=== PATIENT | male | born 1960 | race Caucasian/White ===

== ENCOUNTER → 2021-12-25 | Outpatient (CLI) | payer OTHER ==
--- NOTE | 2021-12-25 18:19 | CONS ---
CONSULTATION DATE OF SERVICE: 12/25/2021 This 61-year-old gentleman has been evaluated in [facility] for obstructive sleep apnea-hypopnea syndrome. HISTORY OF PRESENT ILLNESS/SLEEP-WAKE EVALUATION: The patient was diagnosed with obstructive sleep apnea more than 10 years ago. For the last 2 years he has been using a Dream Station 1 from [employer], which was on recall. The patient continues to use his machine every night. His sleep schedule is from 11 p.m. until between 8 and 11 a.m. No problems with falling asleep. He wakes up from sleep several times while using his machine and has nocturia. Sometimes he snores. In the morning he wakes up tired, falling asleep during the day, worries about his sleep, falling asleep in front of the TV very often. [place] Sleepiness Scale is 3. No history of hypnagogic hallucinations, sleep paralysis or cataplexy. Episodes of irritability and depression during the day. I checked the patient's CPAP unit. Pressure is 15 cm of water. Usage is 30/30 nights for more than 4 hours, average 9.7 hours per night. Mask fitting 90%. The patient is using an Eson 2 medium-sized nasal mask. PAST MEDICAL HISTORY: Positive for hypertension, hyperlipidemia, diabetes mellitus, depression, asthma. PAST SURGICAL HISTORY: Status post neck surgery x2. MEDICATIONS: Metformin, glipizide, albuterol, simvastatin, nortriptyline. SOCIAL HISTORY: Negative for smoking or using alcohol. FAMILY HISTORY: Cancer. REVIEW OF SYSTEMS: Awakenings from sleep and sleepiness while continuing to use his CPAP equipment. No fevers. No double vision. No recent chest pain. No shortness of breath. No abdominal pain. No bleeding episodes. No blood in the urine. No seizure episodes. PHYSICAL EXAMINATION: GENERAL: Pleasant gentleman without distress. VITAL SIGNS: BP 177/97, HR 94, RR 16, height 5 feet 8 inches, weight 271 pounds, body mass index 41.3, temperature 98.3, oxygen saturation at room air 97%. HEENT: PERRLA, EOMI, evaluation of oropharynx showed tongue protrudes midline. Extremely low position of soft palate; Mallampati IV. NECK: Supple, no JVD. Thyroid is not palpable. Wide neck; 19 inches in circumference. LUNGS: Clear to percussion and to auscultation. Good air exchange. No wheezing or rhonchi. HEART: S1, S2 regular. No murmurs, gallops, or rubs. ABDOMEN: Soft and nontender. Bowel sounds are present. No organomegaly appreciated. EXTREMITIES: No clubbing or cyanosis. LOADER DEMOLDER: Awake, alert, and oriented X3. Cranial nerves 2 to 7 intact. There is no fasciculation or atrophy. noted. No focal deficits observed. IMPRESSION: 1. Obstructive sleep apnea-hypopnea syndrome diagnosed in another institution about 10 years ago. The patient continues to use his CPAP equipment but still wakes up from sleep and has sleepiness during the day. He is using a Dream Station 1 [employer] unit, which was on recall. He also has extremely low position of soft palate, Mallampati IV, wide neck, 19 inches in circumference; obstructive sleep apnea- hypopnea syndrome. 2. Obesity; body mass index 41.3. 3. Hypertension. 4. Hyperlipidemia. 5. Asthma. 6. Diabetes mellitus. 7. Depression. 8. Status post neck surgery x2. PLAN: 1. CPAP titration for re-evaluation of effective pressure at the present time and to check for the best type and size of mask. 2. The patient is registered on the website for replacement of his CPAP unit, which is again a Dream Station 1 from [employer], which was on recall. 3. Obtain results of previous sleep studies. 4. Losing weight. 5. No driving if feeling any sleepiness. Thank you very much for referring this patient for consultation. Sincerely, Elton Almanzar MD, PhD, FAASM Diplomat of [place] [employer] Sleep Medicine Board of [place] [employer] Network Systems Administrator of [facility] [place] MMODL / DATN: [id number] /
== END ==
LOC: SLEEP 14:36
PROVIDERS: ATTEND Internal Medicine
DX: G47.33 Obstructive sleep apnea (adult) (pediatric) (principal); E66.9 Obesity, unspecified; I10 Essential (primary) hypertension; E78.5 Hyperlipidemia, unspecified; J45.909 Unspecified asthma, uncomplicated; E11.9 Type 2 diabetes mellitus without complications; F32.A Depression, unspecified; Z98.890 Other specified postprocedural states; Z99.89 Dependence on other enabling machines and devices; Z68.41 Body mass index [BMI] 40.0-44.9, adult
CPT/HCPCS: 99211

== ENCOUNTER → 2022-04-30 | Outpatient (CLI) | payer OTHER ==
--- NOTE | 2022-04-30 17:01 | P.PN ---
Subjective DATE: 04/30/2022 FOLLOW UP VISIT. Patient with obstructive sleep apnea hypopnea syndrome return to sleep center for follow-up visit. Recently patient had sleep study which documented obstructive sleep apnea hypopnea syndrome. I discussed results of sleep studies with patient in details. Patient was initiated on PAP therapy and today is first visit after treatment was started. Patient was able to use PAP equipment every night for the whole night. The patient does not have significant problems with the mask, PAP pressure and humidification. [place] sleepiness scale is 10, patient still sometimes has episodes of sleepiness afternoon. I checked information from PAP unit. PAP unit pressure 8 to 15 average 12.1 cm H2O. Usage is 91 % for more then 4 hours, average 9.2 hours per night. Leak is 21.9 l/m, which is in acceptable range. Apnea Hypopnea Index is 1.5, which is normal. MEDICATIONS:1. Metformin 2. Glipizide 3. Simvastatin 4. Nortriptyline 5. Albuterol During physical exam: GENERAL: A pleasant patient without any distress. VITAL SIGNS: BP 161/94, HR 90, RR 18 , weight 266.6, temperature 97.6, oxygen saturation at room air 94 . HEENT: PERRLA, EOMI.low position of soft palate, Mallapati 4 . NECK: Supple. No JVD. LUNGS: Clear to percussion and to auscultation. Good air exchange. No wheezing or rhonchi. HEART: S1, S2 regular. ABDOMEN: Soft and nontender.[] EXTREMITIES: No clubbing or cyanosis. BEHAVIOR MANAGEMENT SPECIALIST: Awake, alert, and oriented x3. No focal deficit. Impressions: 1. Obstructive sleep apnea-hypopnea syndrome. Patient demonstrated great compliance with treatment, benefiting from treatment. 2. Obesity. 3. Hypertension. 4. Diabetes mellitus. 5. Asthma. 6. Depression. 7. History of hyperlipidemia. 8. Status post neck surgery 2. Plan: 1. Continue using PAP equipment every night for the whole night. 2. To change air filter at least 1-2 times per month. 3. PAP unit should stay lower then position of the head. 4. Advised patient to remove all remaining water from humidifier canister daily and make it dry after each usage. Refill canister with fresh distilled water before each usage. 5. Sleep hygiene with regular time in bed for at least 8 hours. 6. Precautions related to driving. No driving if feel any sleepiness. 7. I will maintain prescription for PAP supplies including mask, tube, filters. 8. Follow up visit in 6 months or earlier if patient has any problems. 9. Watching weight. Thank you very much for allowing me to participate in the management of your patient. Elton Almanzar MD, PhD, FAASM. Diplomat of [place] [employer], Sleep Medicine Board by [place] Public Relations Assistant of [facility] [place]
== END ==
LOC: SLEEP 13:06
PROVIDERS: ATTEND Internal Medicine
DX: G47.33 Obstructive sleep apnea (adult) (pediatric) (principal); E11.9 Type 2 diabetes mellitus without complications; J45.909 Unspecified asthma, uncomplicated; F32.A Depression, unspecified; E78.5 Hyperlipidemia, unspecified; Z98.890 Other specified postprocedural states; E66.9 Obesity, unspecified; I10 Essential (primary) hypertension; Z99.89 Dependence on other enabling machines and devices; Z79.84 Long term (current) use of oral hypoglycemic drugs; Z79.51 Long term (current) use of inhaled steroids

== ENCOUNTER → 2023-03-11 | Outpatient (CLI) | payer OTHER ==
--- NOTE | 2023-03-11 12:28 | P.PN ---
Subjective DATE: 03/11/2023 FOLLOW UP VISIT. Patient with obstructive sleep apnea hypopnea syndrome return to sleep center for follow-up visit. Recently we've had multiple sleep latency test for ablation patient symptoms of excessive daytime sleepiness. I explained results of sleep studies to the patient in details. During CPAP night respiration was on full control. Study showed severe amount of periodic limb movements 99.1 per hour but only with 0.7 micro-arousals per hour. Patient is using PAP equipment every night for the whole night, getting PAP supplies in time. The patient does not have significant problems with the mask, PAP unit and humidification. [place] sleepiness scale is 10, which is borderline. I checked information from PAP unit. PAP unit pressure 8-15, average 11.8 cm H2O. Usage is 97 % for more then 4 hours, average 9.5 hours per night. Leak is 20.2 l/m, which is in acceptable range. Apnea Hypopnea Index is 1.6, which is normal. MEDICATIONS:1. Metformin 2. Glipizide 3. Simvastatin 4. Albuterol 5. Nortriptyline During physical exam: GENERAL: A pleasant patient without any distress. VITAL SIGNS: BP 159/94, HR 91, RR 16, weight 251.8, temperature 97.5, oxygen saturation at room air 97 % . HEENT: PERRLA, EOMI.low position of soft palate, Mallapati 4 . NECK: Supple. No JVD. LUNGS: Clear to percussion and to auscultation. Good air exchange. No wheezing or rhonchi. HEART: S1, S2 regular. ABDOMEN: Soft and nontender. Slightly obese EXTREMITIES: No clubbing or cyanosis. POWER GENERATION TURBINE ROOM OPERATOR: Awake, alert, and oriented x3. No focal deficit. Impressions: 1. Obstructive sleep apnea-hypopnea syndrome. Patient demonstrated great compliance with treatment, benefiting from treatment. 2. Severe periodic limb movements 99 times per hour but practically without any micro-arousals. 3. Hypertension. 4. Depression. 5. Diabetes mellitus. 6. Asthma. 7. Hyperlipidemia. 8. Status post neck surgery 2. Obesity, BMI 38.1. Plan: 1. Continue using PAP equipment every night for the whole night. 2. Patient will be started on treatment with Mirapex 0.125 mg lowest dose 1-2 tablets at bedtime to prevent periodic limb movements. 3. PAP unit should stay lower then position of the head. 4. Advised patient to remove all remaining water from humidifier canister daily and make it dry after each usage. Refill canister with fresh distilled water before each usage. 5. Sleep hygiene with regular time in bed for at least 8 hours. 6. Precautions related to driving. No driving if feel any sleepiness. 7. I will maintain prescription for PAP supplies including mask, tube, filters. 8. Watching and losing weight. 9. Follow up visit in 6 months or earlier if patient has any problems. Thank you very much for allowing me to participate in the management of your patient. Elton Almanzar MD, PhD, FAASM. Diplomat of [place] [employer], Sleep Medicine Board by [employer] Employee Communications Manager of [facility] [place]
== END ==
LOC: SLEEP 10:57
PROVIDERS: ATTEND Internal Medicine
DX: G47.33 Obstructive sleep apnea (adult) (pediatric) (principal); E11.9 Type 2 diabetes mellitus without complications; E66.9 Obesity, unspecified; E78.5 Hyperlipidemia, unspecified; F32.A Depression, unspecified; G47.61 Periodic limb movement disorder; I10 Essential (primary) hypertension; J45.909 Unspecified asthma, uncomplicated; Z68.38 Body mass index [BMI] 38.0-38.9, adult; Z79.84 Long term (current) use of oral hypoglycemic drugs; Z98.890 Other specified postprocedural states; Z99.89 Dependence on other enabling machines and devices
CPT/HCPCS: 99212

== ENCOUNTER → 2023-10-07 | Outpatient (CLI) | payer OTHER ==
--- NOTE | 2023-10-07 16:29 | P.PN ---
Subjective DATE: 10/07/2023 FOLLOW UP VISIT. Patient with obstructive sleep apnea hypopnea syndrome return to sleep center for follow-up visit. Information from previous visit have been reviewed. Patient is using PAP equipment every night for the whole night, getting PAP supplies in time. The patient does not have significant problems with the mask, PAP unit and humidification. [place] sleepiness scale is 6, which is normal. I checked information from PAP unit and discussed it with patient in details. PAP unit pressure 8-15, average 12.5 cm H2O. Usage is 100 % for more then 4 hours, average 9.5 hours per night. Leak is 18.7 l/m, which is in acceptable range. Apnea Hypopnea Index is 2.9, which is normal. MEDICATIONS:1. Aspirin 2. Metformin twice a day 3. Lisinopril once a day 4. Simvastatin once a day 5. Gabapentin During physical exam: GENERAL: A pleasant patient without any distress. VITAL SIGNS: BP 146/84, HR 90, RR 12 , weight 243.6, temperature 98.3, oxygen saturation at room air 98 % . HEENT: PERRLA, EOMI.low position of soft palate, Mallapati 4 . NECK: Supple. No JVD. LUNGS: Clear to percussion and to auscultation. Good air exchange. No wheezing or rhonchi. HEART: S1, S2 regular. ABDOMEN: Soft and nontender.[] EXTREMITIES: No clubbing or cyanosis. SPEED OPERATOR: Awake, alert, and oriented x3. No focal deficit. Impressions: 1. Obstructive sleep apnea-hypopnea syndrome. Patient demonstrated great compliance with treatment, benefiting from treatment. 2. History of periodic limb movements. 3. Hypertension. 4. Diabetes mellitus. 5. Depression. 6. Asthma. 7. Hyperlipidemia. 8. Obesity , BMI 38.0. 9. Status post neck surgery. Plan: 1. Continue using PAP equipment every night for the whole night. 2. To change air filter at least 1-2 times per month. 3. PAP unit should stay lower then position of the head. 4. Advised patient to remove all remaining water from humidifier canister daily and make it dry after each usage. Refill canister with fresh distilled water before each usage. 5. Sleep hygiene with regular time in bed for at least 8 hours. 6. Precautions related to driving. No driving if feel any sleepiness. 7. I will maintain prescription for PAP supplies including mask, tube, filters. 8. Follow up visit in 6 months or earlier if patient has any problems. 9. Watching and losing weight. Thank you very much for allowing me to participate in the management of your patient. Elton Almanzar MD, PhD, FAASM. Diplomat of [place] [employer], Sleep Medicine Board by [place] [employer] Head Buyer Tobacco of [facility] [place]
== END ==
LOC: 3 N SLEEP 15:16
PROVIDERS: ATTEND Internal Medicine
DX: G47.33 Obstructive sleep apnea (adult) (pediatric) (principal); I10 Essential (primary) hypertension; E11.9 Type 2 diabetes mellitus without complications; E66.9 Obesity, unspecified; E78.5 Hyperlipidemia, unspecified; F32.A Depression, unspecified; J45.909 Unspecified asthma, uncomplicated; G47.61 Periodic limb movement disorder; Z68.38 Body mass index [BMI] 38.0-38.9, adult; Z79.84 Long term (current) use of oral hypoglycemic drugs; Z79.899 Other long term (current) drug therapy; Z98.890 Other specified postprocedural states; Z99.89 Dependence on other enabling machines and devices; Z79.82 Long term (current) use of aspirin
CPT/HCPCS: 99212

== ENCOUNTER 2024-02-19 17:22 | Emergency (ER) | payer OTHER, MEDICARE ==
--- NOTE | 2024-02-19 17:42 | ED ---
General Adult HPI - General Chief complaint: Urogenital Stated complaint: Fever/uti Time Seen by Provider: 02/19/24 17:33 Source: patient, family, RN notes reviewed Mode of arrival: ambulatory Limitations: no limitations - History of Present Illness Initial comments: Patient is a pleasant 63-year-old male presents to the emergency department with concern for urinary tract infection. Patient has had symptoms for couple of days. Patient did go to urgent care today and diagnosed with urinary tract infection. Patient was given prescription however spiked a fever and decided to come here prior to starting antibiotics. Patient does feel generally weak and did have a couple near falls. No injury. Patient has had a little bit of urinary incontinence and urinary frequency. No abdominal pain. - Related Data Previous Rx's Medication Instructions Recorded Ciprofloxacin HCl [Cipro] 500 mg PO Q12HR #20 tablet 02/19/24 Allergies Allergy/AdvReac Type Severity Reaction Status Date / Time pollen extracts AdvReac Itching Verified 02/19/24 17:31 Review of Systems ROS Statement: Those systems with pertinent positive or pertinent negative responses have been documented in the HPI. ROS Other: All systems not noted in ROS Statement are negative. Constitutional: Denies: fever Eyes: Denies: eye pain ENT: Denies: ear pain Respiratory: Denies: cough Cardiovascular: Denies: chest pain Endocrine: Denies: fatigue Gastrointestinal: Denies: abdominal pain Genitourinary: Reports: as per HPI Musculoskeletal: Denies: back pain Past Medical History Past Medical History: Diabetes Mellitus, Hypertension Additional Past Medical History / Comment(s): depression Past Surgical History: Appendectomy, Cholecystectomy Additional Past Surgical History / Comment(s): neck surgery Past Psychological History: Depression Smoking Status: Never smoker Past Alcohol Use History: Rare Past Drug Use History: None Reported General Exam Limitations: no limitations General appearance: alert Head exam: Present: atraumatic, normocephalic Eye exam: Present: normal appearance Neck exam: Present: normal inspection Respiratory exam: Present: normal lung sounds bilaterally Cardiovascular Exam: Present: tachycardia GI/Abdominal exam: Present: soft. Absent: distended, tenderness Extremities exam: Present: normal inspection Neurological exam: Present: alert Psychiatric exam: Present: normal affect, normal mood Skin exam: Present: normal color Course Vital Signs 02/19/24 02/19/24 17:23 18:54 Temperature 99.7 F H 98.8 F Pulse Rate 125 H 107 H Respiratory 20 22 Rate Blood Pressure 140/86 127/73 O2 Sat by Pulse 95 93 L Oximetry EKG Findings - EKG Results: EKG: interpreted by ERMD (Left axis. High QRS complex), sinus rhythm, normal ST/T EKG shows: tachycardia Medical Decision Making - Medical Decision Making Was pt. sent in by a medical professional or institution (, PA, SECURITY SALES MANAGER, urgent care, hospital, or senior care...) When possible be specific @ -No Did you speak to anyone other than the patient for history (EMS, parent, family, police, friend...)? What history was obtained from this source @ - is present and helps provide history including diagnosis of urinary tract infection from urgent care Did you review nursing and triage notes (agree or disagree)? Why? @ -I reviewed and agree with nursing and triage notes Were old charts reviewed (outside hosp., previous admission, EMS record, old EKG, old radiological studies, urgent care reports/EKG's, senior care records)? Report findings @ -No old charts were reviewed Differential Diagnosis (chest pain, altered mental status, abdominal pain women, abdominal pain men, vaginal bleeding, weakness, fever, dyspnea, syncope, headache, dizziness, GI bleed, back pain, seizure, CVA, palpatations, mental health, musculoskeletal)? @ -Differential Fever: Pneumonia, viral URI, endocarditis, myocarditis, pericarditis, otitis, sinusitis, peritonsillar Abscess, retropharyngeal Abscess, epiglottitis, peritonitis, appendicitis, [place] cystitis, diverticulitis, hepatitis, colitis, UTI, PID, TOA, pyelonephritis, prostatitis, epididymitis, meningitis, encephalitis, pulmonary embolism, CVA, thyroid storm, pancreatitis, adrenal crisis, cavernous sinus thrombosis, this is not meant to be an all-inclusive list. EKG interpreted by me (3pts min.). @ -As above X-rays interpreted by me (1pt min.). @ -Chest x-ray shows no acute process CT interpreted by me (1pt min.). @ -None done U/S interpreted by me (1pt. min.). @ -None done What testing was considered but not performed or refused? (CT, X-rays, U/S, labs)? Why? @ -None What meds were considered but not given or refused? Why? @ -None Did you discuss the management of the patient with other professionals (professionals i.e. , PA, SECURITY SALES MANAGER, lab, RT, psych nurse, clinical social worker, hand winder, teacher, first aid officer, case packer)? Give summary @ -No Was smoking cessation discussed for >3mins.? @ -No Was critical care preformed (if so, how long)? @ -No Were there social determinants of health that impacted care today? How? (Ho melessness, low income, unemployed, alcoholism, drug addiction, transportation, low edu. Level, literacy, decrease access to med. care, mcc, rehab)? @ -No Was there de-escalation of care discussed even if they declined (Discuss DNR or withdrawal of care, Hospice)? DNR status @ -No What co-morbidities impacted this encounter? (DM, HTN, Smoking, COPD, CAD, Cancer, CVA, ARF, Chemo, Hep., AIDS, mental health diagnosis, sleep apnea, morbid obesity)? @ -None Was patient admitted / discharged? Hospital course, mention meds given and route, prescriptions, significant lab abnormalities, going to OR and other pertinent info. @ -Patient reevaluated and significantly improved. Vital signs are stable. Patient does have evidence of mild urinary tract infection and will need antibiotics. Abdomen remains soft and nontender. Patient states he feels remarkably better and is comfortable with discharge home. Patient denies any abdominal pain. Patient states he has had a cough. Chest x-ray shows no evidence of pneumonia. Viral upper respiratory panel negative Undiagnosed new problem with uncertain prognosis? @ -No Drug Therapy requiring intensive monitoring for toxicity (Heparin, Nitro, I nsulin, Cardizem)? @ -No Were any procedures done? @ -No Diagnosis/symptom? @ -Fever, UTI Acute, or Chronic, or Acute on Chronic? @ -Acute, acute Uncomplicated (without systemic symptoms) or Complicated (systemic symptoms)? @ -Default Side effects of treatment? @ -No Exacerbation, Progression, or Severe Exacerbation? @ -No Poses a threat to life or bodily function? How? (Chest pain, [place], [place], pneumonia, PE, COPD, DKA, ARF, appy, cholecystitis, CVA, Diverticulitis, Homicidal, Suicidal, threat to staff... and all critical care pts) @ -No - Lab Data Result diagrams: 04/13/24 18:03 02/19/24 18:03 Lab Results 02/19/24 02/19/24 02/19/24 Range/Units 18:03 18:03 18:03 WBC 13.2 H (3.8-10.6) k/uL RBC 5.73 (4.30-5.90) m/uL Hgb 16.5 (13.0-17.5) gm/dL Hct 49.8 (39.0-53.0) % MCV 87.0 (80.0-100.0) fL MCH 28.8 (25.0-35.0) pg MCHC 33.1 (31.0-37.0) g/dL RDW 13.5 (11.5-15.5) % Plt Count 194 (150-450) k/uL MPV 8.4 Neutrophils % 81 % Lymphocytes % 10 % Monocytes % 7 % Eosinophils % 1 % Basophils % 1 % Neutrophils # 10.7 H (1.3-7.7) k/uL Lymphocytes # 1.3 (1.0-4.8) k/uL Monocytes # 0.9 (0-1.0) k/uL Eosinophils # 0.1 (0-0.7) k/uL Basophils # 0.1 (0-0.2) k/uL PT 11.9 (10.0-12.5) sec INR 1.1 (<1.2) APTT 27.1 (22.0-30.0) sec Sodium 134 L (137-145) mmol/L Potassium 4.2 (3.5-5.1) mmol/L Chloride 100 (98-107) mmol/L Carbon Dioxide 22 (22-30) mmol/L Anion Gap 12 mmol/L BUN 13 (9-20) mg/dL Creatinine 0.90 (0.66-1.25) mg/dL Est GFR (CKD-EPI)AfAm >90 (>60 ml/min/1.73 sqM) Est GFR (CKD-EPI)NonAf >90 (>60 ml/min/1.73 sqM) Glucose 189 H (74-99) mg/dL Plasma Lactic Acid Jerry (0.7-2.0) mmol/L Calcium 9.7 (8.4-10.2) mg/dL Total Bilirubin 1.1 (0.2-1.3) mg/dL AST 29 (17-59) U/L ALT 24 (4-49) U/L Alkaline Phosphatase 53 (38-126) U/L Total Protein 8.2 (6.3-8.2) g/dL Albumin 4.5 (3.5-5.0) g/dL Urine Color Urine Appearance (Clear) Urine pH (5.0-8.0) Ur Specific [place] (1.001-1.035) Urine Protein (Negative) Urine Glucose (UA) (Negative) Urine Ketones (Negative) Urine Blood (Negative) Urine Nitrite (Negative) Urine Bilirubin (Negative) Urine Urobilinogen (<2.0) mg/dL Ur Leukocyte Esterase (Negative) Urine RBC (0-5) /hpf Urine WBC (0-5) /hpf Hyaline Casts (0-2) /lpf Urine Mucus (None) /hpf Influenza Type A (PCR) (Not Detectd) Influenza Type B (PCR) (Not Detectd) RSV (PCR) (Not Detectd) SARS-CoV-2 (PCR) (Not Detectd) 02/19/24 02/19/24 02/19/24 Range/Units 18:03 18:03 18:03 WBC (3.8-10.6) k/uL RBC (4.30-5.90) m/uL Hgb (13.0-17.5) gm/dL Hct (39.0-53.0) % MCV (80.0-100.0) fL MCH (25.0-35.0) pg MCHC (31.0-37.0) g/dL RDW (11.5-15.5) % Plt Count (150-450) k/uL MPV Neutrophils % % Lymphocytes % % Monocytes % % Eosinophils % % Basophils % % Neutrophils # (1.3-7.7) k/uL Lymphocytes # (1.0-4.8) k/uL Monocytes # (0-1.0) k/uL Eosinophils # (0-0.7) k/uL Basophils # (0-0.2) k/uL PT (10.0-12.5) sec INR (<1.2) APTT (22.0-30.0) sec Sodium (137-145) mmol/L Potassium (3.5-5.1) mmol/L Chloride (98-107) mmol/L Carbon Dioxide (22-30) mmol/L Anion Gap mmol/L BUN (9-20) mg/dL Creatinine (0.66-1.25) mg/dL Est GFR (CKD-EPI)AfAm (>60 ml/min/1.73 sqM) Est GFR (CKD-EPI)NonAf (>60 ml/min/1.73 sqM) Glucose (74-99) mg/dL Plasma Lactic Acid Jerry 1.6 (0.7-2.0) mmol/L Calcium (8.4-10.2) mg/dL Total Bilirubin (0.2-1.3) mg/dL AST (17-59) U/L ALT (4-49) U/L Alkaline Phosphatase (38-126) U/L Total Protein (6.3-8.2) g/dL Albumin (3.5-5.0) g/dL Urine Color Yellow Urine Appearance Clear (Clear) Urine pH 5.5 (5.0-8.0) Ur Specific [place] 1.028 (1.001-1.035) Urine Protein 2+ H (Negative) Urine Glucose (UA) 3+ H (Negative) Urine Ketones 1+ H (Negative) Urine Blood Moderate H (Negative) Urine Nitrite Negative (Negative) Urine Bilirubin Negative (Negative) Urine Urobilinogen <2.0 (<2.0) mg/dL Ur Leukocyte Esterase Negative (Negative) Urine RBC 1 (0-5) /hpf Urine WBC 8 H (0-5) /hpf Hyaline Casts 7 H (0-2) /lpf Urine Mucus Moderate H (None) /hpf Influenza Type A (PCR) Not Detected (Not Detectd) Influenza Type B (PCR) Not Detected (Not Detectd) RSV (PCR) Not Detected (Not Detectd) SARS-CoV-2 (PCR) Not Detected (Not Detectd) Disposition Clinical Impression: Fever, Urinary tract infection Disposition: HOME SELF-CARE Condition: Stable Instructions (If sedation given, give patient instructions): Urinary Tract Infection in Men (ED) Additional Instructions: Please do follow-up with primary care physician on Wednesday. Return for fevers, abdominal pain, vomiting, difficulty breathing, worsening or changing symptoms or any other concerns. Prescription for antibiotic has been sent to pharmacy Prescriptions: Ciprofloxacin HCl [Cipro] 500 mg PO Q12HR #20 tablet Is patient prescribed a controlled substance at d/c from ED?: No Referrals: [facility],Clinic [Primary Care Provider] - 1-2 days Time of Disposition: 20:00
[2024-02-19] MEDS: ACETAMINOPHEN TAB 500 MG TAB PO STA (18:07)
[2024-02-19] MEDS: IBUPROFEN 600 MG TAB PO STA (18:10)
[2024-02-19] MEDS: SODIUM CHLORIDE 0.9% 1,000 ML IV SCH (18:11)
[2024-02-19 18:25] LABS: Basophils # (A) 0.1 k/uL (0-0.2); Basophils % (A) 1 %; Eosinophils # (A) 0.1 k/uL (0-0.7); Eosinophils % (A) 1 %; HCT 49.8 % (39.0-53.0); HGB 16.5 gm/dL (13.0-17.5); Lymphocytes # (A) 1.3 k/uL (1.0-4.8); Lymphocytes % (A) 10 %; MCH 28.8 pg (25.0-35.0); MCHC 33.1 g/dL (31.0-37.0); Mean Platelet Volume 8.4; Monocytes # (A) 0.9 k/uL (0-1.0); Monocytes % (A) 7 %; Neutrophils # (A) 10.7 k/uL (1.3-7.7); Neutrophils % (A) 81 %; Platelet Count 194 k/uL (150-450); RBC 5.73 m/uL (4.30-5.90); RDW 13.5 % (11.5-15.5); WBC 13.2 k/uL (3.8-10.6)
[2024-02-19 18:31] LABS: Appearance,Urine Clear (Clear); Bilirubin,Urine Negative (Negative); Blood,Urine Moderate (Negative); Color,Urine Yellow; Glucose,Urine (UA) 3+ (Negative); Hyaline Casts,Urine 7 /lpf (0-2); Ketones,Urine 1+ (Negative); Leukocyte Esterase,Urine Negative (Negative); Mucus,Urine Moderate /hpf; Nitrite,Urine Negative (Negative); PH, Urine 5.5 (5.0-8.0); Protein,Urine 2+ (Negative); RBC,Urine 1 /hpf (0-5); Specific Gravity,Urine 1.028 (1.001-1.035); Urobilinogen,Urine <2.0 mg/dL (<2.0); WBC,Urine 8 /hpf (0-5)
--- NOTE | 2024-02-19 18:31 | XR ---
EXAMINATION TYPE: XR chest 2V DATE OF EXAM: 02/19/2024 6:23 PM CLINICAL INDICATION:Male, 63 years old with history of Fever; COMPARISON: None TECHNIQUE: XR chest 2V Frontal and lateral views of the chest. FINDINGS: Lungs/Pleura: There is no evidence of pleural effusion, focal consolidation, or pneumothorax. Pulmonary vascularity: Unremarkable. Heart/mediastinum: Cardiomediastinal silhouette is unremarkable. Musculoskeletal: No acute osseous pathology. Other findings: None IMPRESSION: Low lung volumes with a generalized hazy appearance which could represent atelectasis versus pulmonar y edema correlate with serum BNP.
[2024-02-19 18:37] LABS: ALT 24 U/L (4-49); AST 29 U/L (17-59); African American GFR (CKD) >90 (>60 ml/min/1.73 sqM); Albumin 4.5 g/dL (3.5-5.0); Alkaline Phosphatase 53 U/L (38-126); Anion Gap 12 mmol/L; Blood Urea Nitrogen 13 mg/dL (9-20); Calcium 9.7 mg/dL (8.4-10.2); Carbon Dioxide 22 mmol/L (22-30); Chloride 100 mmol/L (98-107); Glucose 189 mg/dL (74-99); Non-African American GFR(CKD) >90 (>60 ml/min/1.73 sqM); Potassium 4.2 mmol/L (3.5-5.1); Sodium 134 mmol/L (137-145); Total Bilirubin 1.1 mg/dL (0.2-1.3); Total Protein 8.2 g/dL (6.3-8.2)
[2024-02-19 18:39] LABS: INR 1.1 (<1.2); Partial Thromboplastin Time 27.1 sec (22.0-30.0); Prothrombin Time 11.9 sec (10.0-12.5)
[2024-02-19] MEDS: cefTRIAXone IN SWFI 1,000 MG/10 ML SYRINGE IVP STA (20:16)
[2024-02-19 20:43] VITALS: BP 122/80; PULSE 97; RESP 18; TEMP 97.9
== END 2024-02-19 20:28 | disposition home or self-care (01) ==
LOC: EC 17:22
DX: N39.0 Urinary tract infection, site not specified (principal); Z88.8 Allergy status to other drugs, medicaments and biological substances
CPT/HCPCS: 36415; 93005; 80053; 83605; 85025; 85610; 85730; 81001; 87040; 87636; 71046; 99284; 96374; 96361 ×2; J0696

== ENCOUNTER → 2024-06-29 | Outpatient (CLI) | payer OTHER | LOC: 3 N SLEEP 14:50 | PROVIDERS: ATTEND Internal Medicine | CPT/HCPCS: 99212 ==

== ENCOUNTER → 2025-02-16 | Day surgery (SDC) | payer OTHER ==
[~2025-02-16] MED LIST: PROPOFOL 10 MG/ML 20 ML VIAL IV ONE
[2025-02-16] MEDS: IV FLUID CONTINUATION 1,000 ML IV ONE (12:23)
[2025-02-16 12:32] VITALS: RESP 16; TEMP 97.3
[2025-02-16] MEDS: LACTATED RINGERS 1,000 ML IV SCH (12:39)
[2025-02-16 12:47] LABS: Glucose,Whole Blood 118 mg/dL (70-110)
--- NOTE | 2025-02-16 13:27 | P.PCN ---
Date of Procedure: 02/16/25 Procedure(s) Performed: BRIEF HISTORY: Patient is a 64-year-old pleasant white male scheduled for an elective colonoscopy as a part of screening for colon cancer. PROCEDURE PERFORMED: Colonoscopy. PREOPERATIVE DIAGNOSIS: Screening for colon cancer. IV sedation per Anesthesia. PROCEDURE: After informed consent was obtained, the patient, was brought into the endoscopy unit. IV sedation was administered by Anesthesia under continuous monitoring. Digital rectal examination was normal. Initially the Olympus CF-160 flexible video colonoscope was then inserted in the rectum, gradually advanced into the cecum without any difficulty. Careful examination was performed as the scope was gradually being withdrawn. Ileocecal valve and the appendiceal orifice were visualized and appeared normal. Prep was excellent. Mucosa of the cecum, ascending colon, transverse colon, descending colon, sigmoid colon, and rectum appeared normal. Scattered sigmoid diverticulosis. Retroflexion was performed in the rectum and no lesions were seen. The patient tolerated the procedure well. IMPRESSION: Normal-appearing colon from rectum to cecum with no evidence of colorectal neoplasia Scattered sigmoid diverticulosis. RECOMMENDATIONS: Findings of this examination were discussed with the patient as well as his family.. He was advised to have repeat screening colonoscopy in 10 years
[2025-02-16 13:37] LABS: Glucose,Whole Blood 97 mg/dL (70-110)
[2025-02-16 13:46] VITALS: BP 128/79; PULSE 79
== END ==
LOC: ORWHC2ENDO 11:58
PROVIDERS: ATTEND Internal Medicine Gastroenterology
DX: Z12.11 Encounter for screening for malignant neoplasm of colon (principal); K57.30 Diverticulosis of large intestine without perforation or abscess without bleeding
CPT/HCPCS: J2704; G0121

== ENCOUNTER → 2025-02-26 | Outpatient (CLI) | payer OTHER ==
[2025-02-26 16:24] LABS: T4, Free (Free Thyroxine) 1.14 ng/dL (0.80-1.80)
== END | disposition home or self-care (01) ==
LOC: LABWHC1 11:01
PROVIDERS: ATTEND Psychiatry & Neurology Neurology
DX: R41.3 Other amnesia (principal)
CPT/HCPCS: 36415; 82607; 84439; 84443; 84481

== ENCOUNTER 2025-03-18 13:18 | Inpatient (IN) | payer OTHER, MEDICARE ==
--- NOTE | 2025-03-18 13:33 | ED ---
General Adult HPI - General Chief complaint: Back Pain/Injury Stated complaint: Leg Numbness Time Seen by Provider: 03/18/25 13:21 Source: patient, RN notes reviewed Mode of arrival: EMS Limitations: no limitations - History of Present Illness Initial comments: Patient is a 64-year-old male present to the emergency department with concerns with numbness. Patient states he was walking when he suddenly felt numb. Patient states this was his lower back then abdomen then legs. Patient states his legs gave out. Patient states he just feels weak. Originally patient states weak all over however later confirms just that his legs feel weak and not his arms. Patient denies any history of back problems. Patient does have history of chronic neck problems. No back pain. Patient has mild numbness/discomfort/tightness of his abdomen which is new. - Related Data Home Medications Medication Instructions Recorded Confirmed Albuterol Inhaler [Ventolin Hfa 1 - 2 puff INHALATION DIRECTED 02/15/25 02/16/25 Inhaler] PRN Aspirin EC [Ecotrin Low Dose] 81 mg PO DAILY 02/15/25 02/16/25 Celecoxib 200 mg PO BID 02/15/25 02/16/25 Cetirizine HCl [Zyrtec] 10 mg PO DAILY 02/15/25 02/16/25 Cholecalciferol (Vitamin D3) 50 mcg PO DAILY 02/15/25 02/16/25 [Vitamin D3 (50 Mcg = 2000 Iu)] Cyclobenzaprine [Flexeril] 10 mg PO BID 02/15/25 02/16/25 Dulaglutide [Trulicity] 4.5 mg SQ SA 02/15/25 02/16/25 Famotidine 20 mg PO DAILY 02/15/25 02/16/25 Fluticasone Nasal [place] [Flonase 1 spray EA NOSTRIL DAILY 02/15/25 02/16/25 Nasal [place]] Gabapentin 600 mg PO BID 02/15/25 02/16/25 Ipratropium [place] 0.06%Nasal 1 spray NASAL BID 02/15/25 02/16/25 [Atrovent Nasal 0.06%] Nortriptyline [Pamelor] 100 mg PO HS 02/15/25 02/16/25 Pramipexole [Mirapex] 0.25 mg PO DAILY 02/15/25 02/16/25 Simvastatin [Zocor] 80 mg PO DAILY 02/15/25 02/16/25 Unk Testosterone 20 mg PO Q14D 02/15/25 02/16/25 Vibegron [Gemtesa] 75 mg PO DAILY 02/15/25 02/16/25 lisinopriL 40 mg PO DAILY 02/15/25 02/16/25 metFORMIN HCL [Metformin HCl] 500 mg PO BID 02/15/25 02/16/25 Allergies Allergy/AdvReac Type Severity Reaction Status Date / Time bee venom protein (honey bee) Allergy Anaphylaxis Verified 03/18/25 13:29 pollen extracts AdvReac Itching Verified 03/18/25 13:29 Review of Systems ROS Statement: Those systems with pertinent positive or pertinent negative responses have been documented in the HPI. ROS Other: All systems not noted in ROS Statement are negative. Constitutional: Denies: fever Eyes: Denies: eye pain ENT: Denies: ear pain Respiratory: Denies: cough, dyspnea Cardiovascular: Denies: chest pain Gastrointestinal: Reports: as per HPI, other (No incontinence or retention of bowel or bladder product). Denies: nausea, vomiting, diarrhea Genitourinary: Denies: dysuria Musculoskeletal: Reports: as per HPI. Denies: back pain Neurological: Reports: as per HPI, numbness Past Medical History Past Medical History: Diabetes Mellitus, Hypertension Additional Past Medical History / Comment(s): depression History of Any Multi-Drug Resistant Organisms: None Reported Past Surgical History: Appendectomy, Cholecystectomy Additional Past Surgical History / Comment(s): neck surgery, left elbow, Past Psychological History: Depression Smoking Status: Never smoker Past Alcohol Use History: None Reported Past Drug Use History: None Reported General Exam Limitations: no limitations General appearance: alert, in no apparent distress Head exam: Present: normocephalic Eye exam: Present: normal appearance Neck exam: Present: normal inspection Respiratory exam: Present: normal lung sounds bilaterally Cardiovascular Exam: Present: regular rate, normal rhythm, normal heart sounds Expanded Peripheral pulses: 2+: Dorsalis Pedis (R), Dorsalis Pedis (L) GI/Abdominal exam: Present: soft. Absent: distended, tenderness, guarding, rebound, rigid, pulsatile mass Extremities exam: Present: normal inspection Back exam: Present: normal inspection. Absent: tenderness, vertebral tenderness Neurological exam: Present: alert, oriented X3, CN II-XII intact. Absent: motor sensory deficit Expanded Neurological exam: Present: protecting the airway Speech: Present: fluid speech Sensory exam: Upper Extremity Light Touch: Normal, Lower Extremity Light Touch: Normal Motor strength exam: RUE: 5, LUE: 5, RLE: 5, LLE: 5 Eye Response: (4) open spontaneously Motor Response: (6) obeys commands Verbal Response: (5) oriented Psychiatric exam: Present: normal affect, normal mood Skin exam: Present: normal color Course Vital Signs 03/18/25 03/18/25 13:22 14:50 Temperature 98.8 F Pulse Rate 88 88 Respiratory 18 18 Rate Blood Pressure 165/97 162/82 O2 Sat by Pulse 97 97 Oximetry Medical Decision Making - Medical Decision Making Was pt. sent in by a medical professional or institution (, PA, PROJECT CONTROLS SPECIALIST, urgent care, hospital, or fpc...) When possible be specific @ -No Did you speak to anyone other than the patient for history (EMS, parent, family, police, friend...)? What history was obtained from this source @ -No Did you review nursing and triage notes (agree or disagree)? Why? @ -I reviewed and agree with nursing and triage notes Were old charts reviewed (outside hosp., previous admission, EMS record, old EKG, old radiological studies, urgent care reports/EKG's, fpc records)? Report findings @ -No old charts were reviewed Differential Diagnosis (chest pain, altered mental status, abdominal pain women, abdominal pain men, vaginal bleeding, weakness, fever, dyspnea, syncope, headache, dizziness, GI bleed, back pain, seizure, CVA, palpatations, mental health, musculoskeletal)? @ -Differential Weakness: Hypoglycemia, shock, sepsis, hyponatremia, anemia, infection, NM, ETOH, adverse medicine reaction, overdose, stroke, this is not meant to be an all-inclusive list. EKG interpreted by me (3pts min.). @ -As above X-rays interpreted by me (1pt min.). @ -None done CT interpreted by me (1pt min.). @ -CT spine with no spinal stenosis. Foraminal stenosis. CT abdomen pelvis without acute abnormality. Pulmonary nodule. U/S interpreted by me (1pt. min.). @ -None done What testing was considered but not performed or refused? (CT, X-rays, U/S, labs)? Why? @ -None What meds were considered but not given or refused? Why? @ -None Did you discuss the management of the patient with other professionals (professionals i.e. , PA, PROJECT CONTROLS SPECIALIST, lab, RT, psych nurse, 7th grade social studies teacher, gunstock spray unit feeder, teacher, retail loan officer, [employer]er shoe parts)? Give summary @ -Case was discussed with orthopedic Dr. Caro who will consult and is agreeable with IV steroids. He does feel comfortable with CT scan results. Case also discussed with practitioner [facility] who will admit covering Dr. Nogueira me. Was smoking cessation discussed for >3mins.? @ -No Was critical care preformed (if so, how long)? @ -No Were there social determinants of health that impacted care today? How? (Homelessness, low income, unemployed, alcoholism, drug addiction, transportation, low edu. Level, literacy, decrease access to med. care, halfway, rehab)? @ -No Was there de-escalation of care discussed even if they declined (Discuss DNR or withdrawal of care, Hospice)? DNR status @ -No What co-morbidities impacted this encounter? (DM, HTN, Smoking, COPD, CAD, Cancer, CVA, ARF, Chemo, Hep., AIDS, mental health diagnosis, sleep apnea, morbid obesity)? @ -History of cervical spine problems Was patient admitted / discharged? Hospital course, mention meds given and route, prescriptions, significant lab abnormalities, going to OR and other pertinent info. @ -Patient presents with odd symptoms. Concerns for transient leg weakness and now potential urinary retention. Patient reevaluated and updated. Admission orders written. Patient will be admitted with orthopedic spine consult. Steroids will be started. Undiagnosed new problem with uncertain prognosis? @ -No Drug Therapy requiring intensive monitoring for toxicity (Heparin, Nitro, Insulin, Cardizem)? @ -No Were any procedures done? @ -No Diagnosis/symptom? @ -Leg weakness Acute, or Chronic, or Acute on Chronic? @ -Acute Uncomplicated (without systemic symptoms) or Complicated (systemic symptoms)? @ -Default Side effects of treatment? @ -No Exacerbation, Progression, or Severe Exacerbation? @ -No Poses a threat to life or bodily function? How? (Chest pain, USA, NM, pneumonia, PE, COPD, DKA, ARF, appy, cholecystitis, CVA, Diverticulitis, Homicidal, Suicidal, threat to staff... and all critical care pts) @ -No - Lab Data Result diagrams: 03/18/25 13:43 03/18/25 13:43 Lab Results 03/18/25 03/18/25 Range/Units 13:43 13:43 WBC 6.28 (4.50-10.00) 10*3/uL RBC 4.89 (4.40-5.60) 10*6/uL Hgb 14.7 (13.0-17.0) g/dL Hct 42.2 (39.6-50.0) % MCV 86.3 (80.0-97.0) fL MCH 30.1 (27.0-32.0) pg MCHC 34.8 (32.0-37.0) g/dL Plt Count 170 (140-440) 10*3/uL MPV 10.3 (9.5-12.2) fL Immature Gran % (Auto) 0.6 % Neutrophils % 61.2 % Lymphocytes % 23.2 % Monocytes % 9.6 % Eosinophils % 4.6 % Basophils % 0.8 % Immature Gran # 0.04 (0.00-0.04) 10*3/uL Neutrophils # 3.84 (1.80-7.70) 10*3/uL Lymphocytes # 1.46 (0.90-5.00) 10*3/uL Monocytes # 0.60 (0.20-1.00) 10*3/uL Eosinophils # 0.29 (0.04-0.35) 10*3/uL Basophils # 0.05 (0.00-0.10) 10*3/uL Sodium 141 (137-145) mmol/L Potassium 4.4 (3.5-5.1) mmol/L Chloride 106 (98-107) mmol/L Carbon Dioxide 28 (22-30) mmol/L Anion Gap 7 mmol/L BUN 14 (9-20) mg/dL Creatinine 0.86 (0.66-1.25) mg/dL Est GFR (CKD-EPI)AfAm >90 (>60 ml/min/1.73 sqM) Est GFR (CKD-EPI)NonAf >90 (>60 ml/min/1.73 sqM) Glucose 146 H (74-99) mg/dL Calcium 9.8 (8.4-10.2) mg/dL Total Bilirubin 0.8 (0.2-1.3) mg/dL AST 20 (17-59) U/L ALT 18 (4-49) U/L Alkaline Phosphatase 51 (38-126) U/L Total Protein 7.1 (6.3-8.2) g/dL Albumin 4.2 (3.5-5.0) g/dL Disposition Clinical Impression: Leg weakness Disposition: ADMITTED IP TO THIS HOSP Is patient prescribed a controlled substance at d/c from ED?: No Referrals: Damon Jacobs DO [Primary Care Provider] - 1-2 days Time of Disposition: 15:32
[2025-03-18 13:55] LABS: Basophils # (A) 0.05 10*3/uL (0.00-0.10); Basophils % (A) 0.8 %; Eosinophils # (A) 0.29 10*3/uL (0.04-0.35); Eosinophils % (A) 4.6 %; HCT 42.2 % (39.6-50.0); HGB 14.7 g/dL (13.0-17.0); Lymphocytes # (A) 1.46 10*3/uL (0.90-5.00); Lymphocytes % (A) 23.2 %; MCH 30.1 pg (27.0-32.0); MCHC 34.8 g/dL (32.0-37.0); MCV 86.3 fL (80.0-97.0); Monocytes # (A) 0.60 10*3/uL (0.20-1.00); Monocytes % (A) 9.6 %; Neutrophils # (A) 3.84 10*3/uL (1.80-7.70); Neutrophils % (A) 61.2 %; Platelet Count 170 10*3/uL (140-440); RBC 4.89 10*6/uL (4.40-5.60); RDW 13.2 % (11.5-14.5); WBC 6.28 10*3/uL (4.50-10.00)
[2025-03-18] MEDS: SODIUM CHLORIDE 0.9% 500 ML DEHP FREE BAG IV STA (14:04)
[2025-03-18 14:14] LABS: ALT 18 U/L (4-49); AST 20 U/L (17-59); African American GFR (CKD) >90 (>60 ml/min/1.73 sqM); Albumin 4.2 g/dL (3.5-5.0); Alkaline Phosphatase 51 U/L (38-126); Anion Gap 7 mmol/L; Blood Urea Nitrogen 14 mg/dL (9-20); Calcium 9.8 mg/dL (8.4-10.2); Carbon Dioxide 28 mmol/L (22-30); Chloride 106 mmol/L (98-107); Glucose 146 mg/dL (74-99); Non-African American GFR(CKD) >90 (>60 ml/min/1.73 sqM); Potassium 4.4 mmol/L (3.5-5.1); Sodium 141 mmol/L (137-145); Total Protein 7.1 g/dL (6.3-8.2)
--- NOTE | 2025-03-18 15:15 | CT ---
EXAMINATION TYPE: CT abdomen pelvis w con, CT lumbar spine w con DATE OF EXAM: 03/18/2025 2:40 PM COMPARISON: Plain film CLINICAL INDICATION: Male, 64 years old with history of pain; abdominal pain and distention (accessio n [id number]), back pain, leg numbness (accession [id number]) TECHNIQUE: Axial CT abdomen pelvis w con, CT lumbar spine w con;Sagittal and coronal reformats were created on a separate workstation. Axial CT imaging of the lumbar spine Contrast used:100 mL of Isovue 300 with IV Contrast, (none if empty) Oral contrast used: without Oral Contrast (none if empty) CT DLP: combined DLP 3273.6 mGycm, Automated exposure control for dose reduction was used. FINDINGS: LOWER CHEST: 8 mm right middle lobe pulmonary nodule in the diaphragm series 201 image 16 Elevated left diaphragm with atelectasis. ABDOMEN LIVER: Unremarkable GALLBLADDER AND BILE DUCTS: The gallbladder is surgically absent. PANCREAS: Unremarkable. SPLEEN: Small splenule is present. ADRENAL GLANDS: Bilateral fatty nodules in the adrenal gland measuring up to 6 cm on the right and 12 mm on the left compatible with myelolipoma's. KIDNEYS AND URETERS: No evidence of hydronephrosis or obstructing renal calculus. The ureters are unr emarkable. Urinary bladder wall thickening with surrounding Fat stranding. PELVIS BLADDER: No evidence for wall thickening or mass given limitations of exam. REPRODUCTIVE: Prostate is enlarged in size measuring 5.3 cm in transverse dimension. ABDOMEN & PELVIS STOMACH AND BOWEL: No evidence of bowel obstruction. Scattered colonic diverticula present. Appendix is not visualized. PERITONEUM/RETROPERITONEUM: No evidence of pneumoperitoneum or free fluid. VASCULATURE: Mild atherosclerotic calcifications are present throughout the abdominal aorta and its b ranches. No evidence of aortic aneurysm. MUSCULOSKELETAL: Spinal alignment is within normal limits. No evidence for spinal fracture. Multilevel degeneration ch anges with osteophyte information and joint space narrowing facet joint arthropathy. Disc space narro wing also present at multiple levels. No evidence for significant spinal canal stenosis. There is sev ere right L5-S1 moderate bilateral L4-L5 neural foraminal stenosis. LYMPH NODES: No gross evidence for lymphadenopathy. SOFT TISSUE/ABDOMINAL WALL: Fatty changes to the inguinal canals. IMPRESSION: 1. No evidence for acute abdominal process. 2. Right middle lobe pulmonary nodule. 6-12 month follow-up recommended by Fleischner Society pulmon [place] nodule recommendations. 3. Prostatomegaly, correlate with serum PSA. 4. Colonic diverticulosis. 5. Bilateral adrenal myelolipoma's. Spine: * No evidence for spinal fracture. * No evidence for significant spinal canal stenosis. * Severe right L5-S1 neural foraminal stenosis. * Moderate bilateral L4-L5 neural foraminal stenosis. [facility], , 03/18/2025 3:12 PM
[2025-03-18] MEDS ORDERED: NALOXONE 0.4 MG/ML 1 ML VIAL IV PRN (15:34)
[2025-03-18] MEDS ORDERED: DEXTROSE 50% SYRINGE 50 ML IVP PRN (15:45)
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
[2025-03-18] MEDS: methylPREDNISolone SOD SUCCI 125 MG/2 ML VIAL IV STA (16:30)
[2025-03-18] MEDS: TAMSULOSIN 0.4 MG CAP.ER.24H PO SCH (16:33)
[2025-03-18] MEDS: methylPREDNISolone SOD SUCCI 125 MG/2 ML VIAL IV SCH (17:11)
[2025-03-18] MEDS: INSULIN LISPRO (HumaLOG) 100 UNIT/ML 10 mL VL SQ SCH (17:12)
[2025-03-18 17:14] LABS: Glucose,Whole Blood 100 mg/dL (70-110)
[2025-03-18 20:09] LABS: Glucose,Whole Blood 161 mg/dL (70-110)
[2025-03-18] MEDS: ATORVASTATIN 40 MG TAB PO SCH (20:09)
[2025-03-18] MEDS: IPRATROPIUM BROMIDE 0.06% NASAL SPRAY (15 ML) NASAL SCH (20:21)
[2025-03-18] MEDS: NORTRIPTYLINE 25 MG CAP PO SCH (20:32)
[2025-03-18] MEDS: PRAMIPEXOLE 0.125 MG TAB PO SCH (20:33)
[2025-03-18 23:18] LABS: Glucose,Whole Blood 217 mg/dL (70-110)
[2025-03-19 06:07] LABS: Glucose,Whole Blood 195 mg/dL (70-110)
[2025-03-19] MEDS: PANTOPRAZOLE 40 MG TABLET PO SCH (06:13)
[2025-03-19 06:53] LABS: Bilirubin,Urine Negative (Negative); Blood,Urine Negative (Negative); Color,Urine Colorless; Glucose,Urine (UA) 4+ (Negative); Ketones,Urine 1+ (Negative); Leukocyte Esterase,Urine Negative (Negative); Nitrite,Urine Negative (Negative); PH, Urine 5.5 (5.0-8.0); Protein,Urine Negative (Negative); Specific Gravity,Urine 1.032 (1.001-1.035); Urobilinogen,Urine <2.0 mg/dL (<2.0)
[2025-03-19] MEDS: ASPIRIN 81 MG PO SCH (09:22)
[2025-03-19] MEDS: FAMOTIDINE 20 MG TAB PO SCH (09:22)
[2025-03-19] MEDS: CYANOCOBALAMIN 500 MCG TAB PO SCH (09:22)
[2025-03-19] MEDS: LORATADINE 10 MG TAB PO SCH (09:22)
[2025-03-19] MEDS: CHOLECALCIFEROL 25 MCG (1000 IU) TABLET PO SCH (09:22)
[2025-03-19] MEDS: NON FORMULARY DRUG (Vibegron [Gemtesa] 75 MG Tablet) PO SCH (09:27)
--- NOTE | 2025-03-19 10:57 | MR ---
EXAMINATION TYPE: MR lumbar spine wo con DATE OF EXAM: 03/19/2025 10:22 AM COMPARISON: 03/18/2025.. CLINICAL INDICATION: Male, 64 years old with history of leg weakness; PHH, Back pain, bilateral leg w eakness/numbness. TECHNIQUE: Multi planar, multi sequence imaging was performed utilizing: T1-weighted, T2-weighted, a nd turbo inversion recovery imaging of the lumbar spine. IV Contrast: mL (None, if empty) FINDINGS: Alignment: The lumbar vertebral bodies have preserved heights and alignment. Cord: The conus medullaris and the distal spinal cord appear unremarkable with regards to their signa l intensity and morphology. Bones/Discs: Minimal degeneration changes throughout the spine with osteophyte formation and facet [place] int arthropathy. Intervertebral disc signal is maintained. No abnormal inversion recovery signal to s uggest bony edema. T12-L1: No evidence of significant spinal canal stenosis or neural foraminal stenosis. L1-L2: No evidence of significant spinal canal stenosis or neural foraminal stenosis. L2-L3: No evidence of significant spinal canal stenosis or neural foraminal stenosis. L3-L4: No evidence of significant spinal canal stenosis. Facet joint arthropathy mild bilateral neura l foraminal stenosis. L4-L5: No evidence of significant spinal canal stenosis. Facet joint arthropathy mild bilateral neura l foraminal stenosis. L5-S1: The disc has a rounded posterior morphology without significant spinal canal stenosis. Facet j oint arthropathy with mild bilateral neural foraminal stenosis. No significant spinal canal or neural foraminal stenosis in the remainder of the visualized levels. Other findings: None. IMPRESSION: No definitive evidence of disc herniation or significant spinal canal stenosis. Minimal disc degeneration with associated osteoarthritic changes. [facility], , 03/19/2025 10:55 AM
--- NOTE | 2025-03-19 11:56 | P.CNOR ---
History of Present Illness - [facility] Consult date: 03/19/25 Consult reason: other History of present illness: Patient seen and examined at bedside he is a pleasant 64-year-old male who has sudden complaints of bilateral lower extremity weakness. He feels like his weakness started just yesterday. When he tries to stand up he is unable to stand up at all. He says his legs give out completely underneath him. He says it essentially feels equal in bilateral lower extremities perhaps slightly worse on the left than the right. He feels it from the waist down around his umbilicus and down toward his bilateral lower extremities. He said that he had some changes with his bladder function but he seems to be able to void to some degree now. He is unable to lift his legs above the bed and unable to stand up on his own. He denies any chest pain denies any shortness of breath denies any nausea or vomiting. He denies changes in his upper extremities or his neck or head. He denies any specific injury or trauma. He says about 1 month ago he started seeing a neurologist because he was having some forgetfulness. He said he had some testing with a EMG of his bilateral upper and lower extremities but he does not know the specific results of that. He has not had imaging of his spine. He denies any history of MS or any other neurologic change. He denies any other history of bowel bladder problems but he is having bladder issues currently. He denies any loss of control of his bowels. He says bilateral lower extremities feel weak. He is symptoms stem circumfer entially around his both legs from his waist down. There is no specific radicular pattern. Review of Systems As stated per [facility]. Denies any facial changes. Denies any speech changes or vision changes Past Medical History Past Medical History: Diabetes Mellitus, Hypertension Additional Past Medical History / Comment(s): depression History of Any Multi-Drug Resistant Organisms: None Reported Past Surgical History: Appendectomy, Cholecystectomy Additional Past Surgical History / Comment(s): neck surgery, left elbow, Past Anesthesia/Blood Transfusion Reactions: No Reported Reaction Past Psychological History: Depression Smoking Status: Never smoker Past Alcohol Use History: None Reported Past Drug Use History: None Reported Medications and Allergies Home Medications Medication Instructions Recorded Confirmed Type Aspirin EC [Ecotrin Low Dose] 81 mg PO DAILY 02/15/25 03/18/25 History Cetirizine HCl [Zyrtec] 10 mg PO DAILY 02/15/25 03/18/25 History Cholecalciferol (Vitamin D3) 50 mcg PO DAILY 02/15/25 03/18/25 History [Vitamin D3 (50 Mcg = 2000 Iu)] Dulaglutide [Trulicity] 4.5 mg SQ SA 02/15/25 03/18/25 History Famotidine 20 mg PO DAILY 02/15/25 03/18/25 History Fluticasone Nasal [place] [Flonase 1 spray EA NOSTRIL DAILY 02/15/25 03/18/25 History Nasal [place]] Ipratropium [place] 0.06%Nasal 1 spray NASAL BID 02/15/25 03/18/25 History [Atrovent Nasal 0.06%] Nortriptyline [Pamelor] 100 mg PO HS 02/15/25 03/18/25 History Pramipexole [Mirapex] 0.25 mg PO HS 02/15/25 03/18/25 History Simvastatin [Zocor] 80 mg PO HS 02/15/25 03/18/25 History Vibegron [Gemtesa] 75 mg PO DAILY 02/15/25 03/18/25 History lisinopriL 40 mg PO DAILY 02/15/25 03/18/25 History metFORMIN HCL [Metformin HCl] 500 mg PO BID-W/MEALS 02/15/25 03/18/25 History EPINEPHrine (Auto Inject) [Epipen] 0.3 mg IM ONCE PRN 03/18/25 03/18/25 History Testosterone Cypionate 200 mg IM Q14D 03/18/25 03/18/25 History [Depo-Testosterone] Vitamin B-12 250mcg 500 mcg PO DAILY 03/18/25 03/18/25 History Allergies Allergy/AdvReac Type Severity Reaction Status Date / Time bee venom protein (honey bee) Allergy Anaphylaxis Verified 03/18/25 15:55 pollen extracts AdvReac Itching Verified 03/18/25 15:55 Physical Examination Osteopathic Statement: *. No significant issues noted on an osteopathic structural exam other than those noted in the History and Physical/Consult. - L Spine: dermatomal strength & reflexes bilateral Strength: hip flexion: 2/5 (Global weakness is bilateral lower extremities with dorsiflexion plantarflexion EHL hip flexion knee extension. He can bend his right knee with about 3 out of 5 strength. Left side is about 2+ out of 5 strength. He is unable to lift his legs up off the bed independently. Dorsiflexion is about 2+) Strength: hip extension: 2/5 (Dorsiflexion plantarflexion about 2+/5 bilaterally. No pain with internal extra rotation of his hips. No pain with palpation over his legs. Diffuse paresthesias bilateral lower extremities.) Strength: knee flexion: 2/5 (His back is nontender over the midline. There is no open wounds lacerations or abrasions.) Results - Labs Labs: Abnormal Lab Results - Last 24 Hours (Table) 03/18/25 03/18/25 03/18/25 Range/Units 13:43 20:07 23:16 Glucose 146 H (74-99) mg/dL POC Glucose (mg/dL) 161 H 217 H (70-110) mg/dL Urine Glucose (UA) (Negative) Urine Ketones (Negative) 03/18/25 03/19/25 Range/Units 23:56 06:06 Glucose (74-99) mg/dL POC Glucose (mg/dL) 195 H (70-110) mg/dL Urine Glucose (UA) 4+ H (Negative) Urine Ketones 1+ H (Negative) H & H 03/18/25 Range/Units 13:43 Hgb 14.7 (13.0-17.0) g/dL Hct 42.2 (39.6-50.0) % Result Diagrams: 03/18/25 13:43 03/18/25 13:43 - Diagnostic results Lumbar MRI with/without contrast: report reviewed, image reviewed (CT and MRI of his lumbar spine are reviewed. There is no significant stenosis. There is no significant herniation. There is diffuse disc bulging at L4-5 with some foraminal encroachment. There is no masses or bony erosions.) CT Scan - lumbar: report reviewed, image reviewed Assessment and Plan Assessment: Bilateral lower extremity weakness, acute without specific etiology Bladder incontinence No evidence of significant stenosis of the lumbar spine imaging Plan: Bilateral lower extremity weakness, acute without specific etiology Bladder incontinence No evidence of significant stenosis of the lumbar spine imaging It is difficult to determine the nature of the patient's symptoms. He does not have significant stenosis in his lumbar spine to have causal relationship from the lumbar spine issue for his lower extremity weakness. He has significant weakness of the bilateral lower extremities and I think that we he needs further imaging of his axial spine and possibly his brain. Neurology consult is ordered and pending I think it is worthwhile to have him get a Samuels catheter as he seems to have significant residual. The issue does not seem infectious, I would like to see if he makes some benefit with steroid medication in terms of his weakness. I will order further imaging of his axial spine and would consider starting steroid medication. I do not have any surgical plans at his lumbar spine but we will follow the imaging closely with further recommendations to follow as needed. Awaiting neurology consult
[2025-03-19] MEDS: ENOXAPARIN 40 MG/0.4 ML SYRINGE SQ SCH (12:04)
[2025-03-19] MEDS: FLUTICASONE NASAL 50MCG/SPRAY 16GM BTL EA NOSTRIL SCH (12:04)
[2025-03-19 12:06] LABS: Glucose,Whole Blood 259 mg/dL (70-110)
--- NOTE | 2025-03-19 14:52 | P.CNNES ---
History of Present Illness Consult date: 03/19/25 Requesting physician: Guicho Delgado Reason for Consult: leg weakness History of Present Illness: Patient is a 64-year-old right-handed male with history of previous cervical spine surgery, diabetes, came to the hospital by ambulance yesterday at 1:18 PM with acute onset of leg weakness and numbness. Patient states that he had history of cervical spinal fusion in 2017. He had presented at that time with some numbness and tingling of the fingers and toes bilaterally. He had 3 stage neck surgery for cervical disc herniation and did well. He did not require to use any assistive device. He does have a cane, but never uses it. Patient states that yesterday at around 12:30 PM, he was sitting when he noticed numbness in the stomach area. He took shower and then went outside and was moving plants, which was very light weight,. Suddenly he developed weakness in the legs, and he fell twice. He noticed numbness in the abdomen, back down his legs, groin region all the way to the feet. The second time he fell, could not get up. He waited his to get out of the shower to call 911. Patient has noted Lhermitte's symptoms, whenever he extends his neck, gets shooting pain in the legs. He denies otherwise any neck pain, upper back pain, but does have some pain across in the lower abdominal region like a belt, which feels more like stiffness. He denies any incontinence of bowels. He does have numbness of the genital region since yesterday. As per EMS flowsheet, when they arrived, patient was sitting on his dining room floor. Patient was alert orient x 4 with GCS of 15. There was no chest pain shortness of breath dizziness headache or nausea. Patient mentioned that he was moving around plants in the home when he had a sudden onset of numbness around his lower abdomen and back that was traveling down both legs. Patient states his legs gave out from under him and he fell from standing. He did not hit his head, no loss of consciousness. Patient denied any head neck or back pain. No visible injuries. Patient was assisted to his feet by EMS providers but he was unable to stand upright. Patient's blood pressure was 177/94, pulse rate 93 respirations 16 saturation 97%. Blood test shows normal CBC, CMP, UA. Patient undergone CT of abdomen pelvis, which revealed no evidence for spinal fracture, significant spinal stenosis. Severe right L5-S1 neural foraminal stenosis. Moderate bilateral L4-L5 neural foraminal stenosis. Patient then had MRI of the lumbar spine, which revealed no definitive evidence of disc herniation or significant spinal canal stenosis. Minimal disc degeneration with associated osteoarthritic changes. Patient had an MRI of the brain with and without contrast on 12/27/2024, which revealed no acute intracranial process. 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 Correlate for any chronic symptoms of vertebrobasilar insufficiency. 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 Moderate chronic ethmoid sinus disease. Patient's home medication include Pepcid, vitamin D, metformin, lisinopril, simvastatin 80 mg, Mirapex, nortriptyline, aspirin 81 mg, testosterone shots. Patient has history of diabetes for 10 years. He is never smoker, quit drinking in . Patient states he has EMG performed by Dr. Wheeler, his neurologist 2 months ago. Review of Systems All pertinent positive and negative review of systems mentioned in the HPI, othe rwise unremarkable. Past Medical History Past Medical History: Diabetes Mellitus, Hypertension Additional Past Medical History / Comment(s): depression History of Any Multi-Drug Resistant Organisms: None Reported Past Surgical History: Appendectomy, Cholecystectomy Additional Past Surgical History / Comment(s): neck surgery, left elbow, Past Anesthesia/Blood Transfusion Reactions: No Reported Reaction Past Psychological History: Depression Smoking Status: Never smoker Past Alcohol Use History: None Reported Past Drug Use History: None Reported Medications and Allergies Home Medications Medication Instructions Recorded Confirmed Type Aspirin EC [Ecotrin Low Dose] 81 mg PO DAILY 02/15/25 03/18/25 History Cetirizine HCl [Zyrtec] 10 mg PO DAILY 02/15/25 03/18/25 History Cholecalciferol (Vitamin D3) 50 mcg PO DAILY 02/15/25 03/18/25 History [Vitamin D3 (50 Mcg = 2000 Iu)] Dulaglutide [Trulicity] 4.5 mg SQ SA 02/15/25 03/18/25 History Famotidine 20 mg PO DAILY 02/15/25 03/18/25 History Fluticasone Nasal [place] [Flonase 1 spray EA NOSTRIL DAILY 02/15/25 03/18/25 History Nasal [place]] Ipratropium [place] 0.06%Nasal 1 spray NASAL BID 02/15/25 03/18/25 History [Atrovent Nasal 0.06%] Nortriptyline [Pamelor] 100 mg PO HS 02/15/25 03/18/25 History Pramipexole [Mirapex] 0.25 mg PO HS 02/15/25 03/18/25 History Simvastatin [Zocor] 80 mg PO HS 02/15/25 03/18/25 History Vibegron [Gemtesa] 75 mg PO DAILY 02/15/25 03/18/25 History lisinopriL 40 mg PO DAILY 02/15/25 03/18/25 History metFORMIN HCL [Metformin HCl] 500 mg PO BID-W/MEALS 02/15/25 03/18/25 History EPINEPHrine (Auto Inject) [Epipen] 0.3 mg IM ONCE PRN 03/18/25 03/18/25 History Testosterone Cypionate 200 mg IM Q14D 03/18/25 03/18/25 History [Depo-Testosterone] Vitamin B-12 250mcg 500 mcg PO DAILY 03/18/25 03/18/25 History Allergies Allergy/AdvReac Type Severity Reaction Status Date / Time bee venom protein (honey bee) Allergy Anaphylaxis Verified 03/18/25 15:55 pollen extracts AdvReac Itching Verified 03/18/25 15:55 Physical Examination - Vital Signs Vital Signs: Vital Signs Temp Pulse Pulse Resp BP BP Pulse Ox 03/19/25 07:00 98.6 F 105 H 16 138/78 98 03/19/25 03:21 98.2 F 102 H 16 127/70 93 L 03/18/25 20:02 161/88 03/18/25 18:35 98.7 F 110 H 17 198/96 94 L 03/18/25 17:37 98.0 F 90 18 164/98 96 03/18/25 16:29 90 18 162/80 97 03/18/25 14:50 88 18 162/82 97 Intake and Output 03/18/25 03/19/25 03/19/25 22:59 06:59 14:59 Intake Total 236 Output Total 530 525 Balance -530 -525 236 Intake: Oral 236 Output: Urine 530 525 Other: Voiding Method Urinal # Voids 1 Weight 98.43 kg Patient is an elderly male, very pleasant, in no acute distress. Patient is alert awake oriented to time place and person. Speech and language functions are normal. Patient can name and repeat very well. No aphasia or dysarthria. Attention, concentration and fund of knowledge is adequate. On cranial nerve examination, pupils are equal, round and reacting to light, visual rivera are full on confrontation, with no neglect on double simultaneous stimulation. Extraocular muscles are intact with no nystagmus. He does have mild lazy eye right eye, with slight inward adduction of the right eye. His face is symmetric, tongue protrudes to the midline. Palatal elevation and sensation normal, hearing and shoulder shrug normal, facial sensation normal. On muscle strength testing, there is no pronator drift and the strength is normal in arms distally and proximally, except right interossei, which is 5-and right campus police officer 5-as compared to the left which is normal. In the lower limbs (rig ht/left) hip flexion 3-/1-2, knee extension 3 3+/1, ankle dorsiflexion 4+5-/1, toe extension 4/3+ Deep tendon reflexes are asymmetric (right/left) biceps 1/2+, brachioradialis 1/2+, knees 0/0, ankle 0/0 and plantars are upgoing bilaterally. Sensory to touch is decreased up to T8 level (right in between the xiphoid and umbilicus). Cerebellar function showed no ataxia for [id number] testing. No dysdiadochokinesia. Tone and bulk of muscles normal. Gait deferred.. On general examination, there is no carotid bruit or murmur, S1-S2 audible. Chest is clear on consultation. Abdomen is soft nontender. No organomegaly, bowel sounds present. Peripheral pulses are present. No peripheral edema. Results - Laboratory Findings CBC and BMP: 03/18/25 13:43 03/18/25 13:43 Abnormal Lab Findings: Abnormal Labs 03/18/25 03/18/25 03/18/25 13:43 20:07 23:16 Glucose 146 H POC Glucose (mg/dL) 161 H 217 H Urine Glucose (UA) Urine Ketones 03/18/25 03/19/25 03/19/25 23:56 06:06 12:05 Glucose POC Glucose (mg/dL) 195 H 259 H Urine Glucose (UA) 4+ H Urine Ketones 1+ H Assessment and Plan Assessment: * Acute paraparesis, with left leg much weaker than the right. Patient has a sensory level at T8. Rule out spinal cord compression. * Positive Lhermitte signs, suggestive of spinal stenosis * Urinary retention, likely due to spinal stenosis. * History of cervical spinal fusion 2016 * Diabetes * Hyperlipidemia Plan: * MRI of the lumbar spine, revealed no definitive evidence of disc herniation or significant spinal canal stenosis. Minimal disc degeneration with associated osteoarthritic changes. I personally reviewed MRI, agree with the findings. * Stat MRI of the cervical spine, rule out spinal cord compression. Orthopedic spine on board. * Patient may need MRI thoracic spine as well, but patient can only have 1 body part MRI today, therefore we will recommend cervical spine as priority. * B12, folate. * Patient on methylprednisolone 60 mg every 6 hours. * Discussed with primary team. * Neurology will follow. Thank you for the consult. Time with Patient: Greater than 30
--- NOTE | 2025-03-19 15:59 | P.PN ---
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 Wheeler) approximately 2 months ago, migraine headaches, depression. Presented to the emergency department with a chief complaint of sudden onset numbness extending from periumbilical region downwards throughout groin and bilateral lower extremities followed by weakness of bilateral lower extremities. Patient states he was moving some plants at home when he had sudden onset of numbness around his lower abdomen circling around him like a belt that quickly radiated into his groin and into bilateral lower extremities accompanied by weakness of bilateral lower extremities which resulted in his legs giving out from beneath him causing him to fall to the ground. Patient denied having any dizziness or lightheadedness, headache, neck or back pain, or experiencing any pain in his abdomen, groin, or lower extremities. He denies hitting his head during the fall and denies having any loss of consciousness. But reports due to the sudden onset numbness and weakness he was unable to stand back up and had to have his call EMS for transfer to the hospital. Upon arrival to our facility, patient underwent evaluation in the emergency department. Vital signs upon arrival show blood pressure 165/97, heart rate 88, respiratory rate 18, temp 98.8 F, and SpO2 of 97% on room air. CT lumbar spine CT abdomen and pelvis was also negative for acute intra-abdominal process completed showing no evidence for spinal fracture, no evidence for significant spinal canal stenosis revealing severe right L5-S1 neuroforaminal stenosis and moderate bilateral L4-L5 neuroforaminal stenosis, revealing a right middle lobe pulmonary nodule 8 mm, prostamegaly, colonic diverticulosis, and bilateral adrenal myolipoma's. Labs completed and reviewed. CBC unremarkable. BMP showing hyperglycemia with blood glucose of 146. Liver profile normal findings. Urinalysis positive for glucose and ketones but negative for infection. Patient was admitted under services with consultation to neurology and orthospine surgery. MRI lumbar spine was completed showing no definitive evidence of disc herniation or significant spinal canal stenosis revealing minimal disc degeneration with associated osteoarthritic changes. Physical exam: Patient reports continued numbness throughout bilateral lower extremities in a belt-like band across his waist from periumbilical region extending downwards. He reports complete numbness in his groin. He states he has been urinating without difficulties and denies having any involuntary loss of bowel or bladder. Patient denies worsening of the symptoms since arrival to our facility but also denies any improvement. He denies having any headache, lightheadedness, dizziness, chest pain, palpitations, shortness of breath, abdominal pain, nausea, vomiting, or any other complaints at this time Vital signs reviewed and stable. General: Nontoxic, no distress and appears stated age. Derm: Skin warm and dry, normal coloration for ethnicity. Head: Atraumatic, normocephalic and symmetric. Eyes: EOM's intact, no lid lag, and anicteric sclera Mouth: no lip lesions, mucus membranes moist Cardiovascular: regular rate and rhythm with normal S1S2, no murmur, positive posterior tibial pulses bilaterally, and cap refill < 2 seconds. Lungs: Respirations even, regular, and unlabored on room air. Lungs CTA bilaterally, no rhonchi, no rales, no wheezing, and no accessory muscle usage. Abdominal: Obese abdomen, soft, nontender to palpation, no guarding, no appreciable organomegaly Ext: No gross muscle atrophy, no edema, no contractures. Movement and sensation in movement and bilateral upper extremities is equal, strong, symmetrical with sensation intact. Bilateral lower extremity weakness is noted. Patient able to bend knees and flex ankles but with moderate weakness noted. Patient unable to lift legs off of bed or perform [id number] testing. Patient reports significantly decreased sensation from umbilical region extending downwards throughout bilateral lower extremities and into toes. Neuro: Speech clear, face symmetrical and CN II-XII. Bilateral lower extremity weakness is noted. Patient able to bend knees and flex ankles but with moderate weakness noted. Patient unable to lift legs off of bed or perform [id number] testing. Patient reports significantly decreased sensation from umbilical region extending downwards throughout bilateral lower extremities and into toes. Psych: Alert and oriented to person, place, time, and situation. Appropriate and pleasant affect. Assessment and Plan of Care: Acute onset of bilateral lower extremity numbness and weakness Abdominal and periumbilical/suprapubic and groin numbness Severe right L5-S1 neuroforaminal stenosis Moderate bilateral L4-L5 neuroforaminal stenosis - Orthospine surgery following, appreciate recommendations - Neurology following, discussed plan of care with Dr. Woodruff. Stat MRI cervical spine to be obtained. - Continue neurochecks every 4 hours and as needed. - Continue IV steroids with Solu-Medrol 60 mg IVP every 6 hours. - Maintain fall precautions - Bladder scans to monitor for postvoid residual/retention, may require Samuels catheter insertion. Type II [id number] diabetes mellitus with hyperglycemia - Hold metformin and Trulicity and continue glycemic protocol with Humalog sliding scale. Hypertension - Monitor vital signs and continue daily medication regimen with lisinopril 40 mg daily. Hyperlipidemia - Continue daily medication regimen with atorvastatin 40 mg nightly Obstructive sleep apnea - Continue CPAP nightly and while napping. Data and imaging reviewed: - Vital signs reviewed. Blood pressure 138/78, heart rate 105, respiratory rate 16, temp 98.6 F, and SpO2 of 98% on room air. - MRI lumbar spine was completed showing no definitive evidence of disc herniation or significant spinal canal stenosis revealing minimal disc degeneration with associated osteoarthritic changes. CODE STATUS: Full code DVT prophylaxis: Lovenox Discussed with: Patient, RN, and neurologist Anticipated discharge date: Pending clinical course Anticipated discharge place: Pending clinical course Patient was seen independently by Nurse Pracitioner. This document was prepared using [employer] dictation software. Please allow for errors in senior financial reporting analyst, while rare they do occur. Iain Vaca NP rendered care for this patient independently, reviewed the findings and plan as documented in the note above and agree with plan. I did not physically speak with or examine the patient on this date. . Objective - Vital Signs Vital signs: Vital Signs Temp 98.6 F 03/19/25 07:00 Pulse 105 H 03/19/25 07:00 Resp 16 03/19/25 07:00 BP 138/78 03/19/25 07:00 Pulse Ox 98 03/19/25 07:00 FiO2 Intake & Output 03/18/25 03/19/25 03/19/25 18:59 06:59 18:59 Output Total 1055 Balance -1055 Weight 98.43 kg Output: Urine 1055 Other: # Voids 1 - Labs CBC & Chem 7: 03/18/25 13:43 03/18/25 13:43 Labs: Abnormal Lab Results - Last 24 Hours (Table) 05/11/25 05/11/25 05/11/25 Range/Units 13:43 20:07 23:16 Glucose 146 H (74-99) mg/dL POC Glucose (mg/dL) 161 H 217 H (70-110) mg/dL Urine Glucose (UA) (Negative) Urine Ketones (Negative) 03/18/25 03/19/25 Range/Units 23:56 06:06 Glucose (74-99) mg/dL POC Glucose (mg/dL) 195 H (70-110) mg/dL Urine Glucose (UA) 4+ H (Negative) Urine Ketones 1+ H (Negative)
[2025-03-19] MEDS: CALCIUM CARBONATE 500 MG CHEWABLE PO PRN (16:51)
[2025-03-19 17:19] LABS: Glucose,Whole Blood 243 mg/dL (70-110)
--- NOTE | 2025-03-19 17:57 | MR ---
EXAMINATION TYPE: MR cervical spine wo con DATE OF EXAM: 03/19/2025 4:01 PM COMPARISON: None. CLINICAL INDICATION: Male, 64 years old with history of Spinal cord compression; PHH, Spinal cord com pression TECHNIQUE: Multi planar, multi sequence imaging was performed utilizing: T1-weighted, T2-weighted, an d turbo inversion recovery imaging of the cervical spine. IV Contrast: mL (None, if empty) FINDINGS: Alignment: The cervical vertebral bodies have preserved heights. Alignment is within normal limits gi osman patient positioning. Bones: Postsurgical changes throughout the cervical spine extending from C2 to C7. Multilevel degene ration changes with disc osteophyte complexes and facet joint arthropathy. Cord: There is spinal cord edema at the level of C7-T1 with severe spinal canal stenosis. Discs: Intervertebral disc signal is maintained. C2-C3: No significant disc pathology. The spinal canal is patent. No neural foraminal stenosis. C3-C4: No significant disc pathology. The spinal canal is patent. No neural foraminal stenosis. C4-C5: No significant disc pathology. The spinal canal is patent. Bilateral facet and uncovertebral joint arthropathy are present with mild bilateral neural foraminal stenosis. C5-C6: No significant disc pathology. The spinal canal is patent. Bilateral facet and uncovertebral joint arthropathy are present with moderate right neural foraminal stenosis. The left neural foramen is patent. C6-C7: No significant disc pathology. The spinal canal is patent. Bilateral facet and uncovertebral joint arthropathy are present with moderate left neural foraminal stenosis. The right neural foramen is patent. C7-T1: No significant disc pathology. The spinal canal is patent. No neural foraminal stenosis. Other: None. IMPRESSION: 1. Severe spinal canal stenosis secondary to disc osteophyte complex at the level of C7-T1 possibly related to altered mechanics. There is mild coronary edema. Neurosurgical consultation recommended. 2. Postsurgical changes from C2 to C7. 3. Degeneration with moderate right C5-C6 and moderate left C6-C7 neural foraminal stenosis secondar y disc osteophyte complexes. 4. Findings communicated to Cesar Woodruff on 03/19/2025 5:[address] Oren Bone. [facility], , 03/19/2025 5:54 PM
--- NOTE | 2025-03-19 19:16 | P.PN ---
Progress Note - Text Progress Note Date: 03/19/25 We have called in an alert regarding the patient's cervical spine MRI. The patient has history of multiple surgeries of the cervical spine with the most recent being in 2017 where he has undergone anterior and posterior cervical spine surgery. All of his surgeries were done at [facility]. He says that he has some chronic neck pain but has not had specific issues at his upper extremities over the past couple of years. He denies weakness or pain in his upper extremities. He has soreness in his neck with extension. He did not have any new injury of the cervical spine that he recalls. On exam His upper extremities have full active and passive range of motion. He has some increased pain in his lower extremities with end range of extension. No pain with flexion. His neck is nontender. His incisions are well-healed anteriorly and posteriorly. At his lower extremities he continues to have evidence of weakness. This is not changed since he was seen earlier today. MRI of the cervical spine shows prior surgery C4-C7. There is significant disc changes C7-T1 with what appears to be a disc herniation and significant stenosis. There seems to be some cord signal change but is difficult to fully ascertain with the imaging. It is difficult to determine the bony margins around the areas and the accessibility particulate C7-T1 on the MRI. Assessment and plan bilateral lower extremity weakness T8 paresthesia History of cervical spine fusion at multiple levels Cervical stenosis at C7-T1 with likely myelopathy and cord dysfunction I think that we need further imaging of the cervical spine to determine the status of his prior surgeries and the bony structures at the area. I would like to have a CT scan of his cervical spine for appropriate further planning and possible surgical planning to establish the prior surgeries present. Will need x-rays of the area as well. The patient is larger in stature and it is difficult to determine the accessibility at C7-T1. Most of the compression appears to be stemming anteriorly and I would like to try to go anterior for potential decompression as necessary. He may need posterior decompression and fusion as well. Further imaging would help us determine this with CT scan and x-rays. The patient has T8 paresthesias and lower extremity weakness. His weakness has not changed through the course of today. He is still on IV steroids and I appreciate the neurology consultation and input. I think it is still necessary to obtain a MRI of his thoracic spine. This may give us a better imaging through the C7-T1 area as well as more definitive imaging throughout the thoracic spine. He had a prior MRI of his brain in December of this year and I do not think we need repeat imaging of this at this point. We will continue to obtain the thoracic MRI. I discussed the case with him and his weakness and issues at his C7-T1 area. I discussed possibly of surgical intervention for decompression. With his weakness I think that we need to act with urgency given his status. He has significant weakness of his lower extremities but it seems to be stabilizing at this point. We need further definitive imaging before proceeding with surgery for appropriate planning and explained this to the patient. Will order further imaging this evening and plan for potential surgery tomorrow. He will be n.p.o. after midnight.
[2025-03-19 20:40] LABS: Glucose,Whole Blood 266 mg/dL (70-110)
--- NOTE | 2025-03-19 21:46 | CT ---
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 Coronal and sagittal reformatted images were also reviewed. Contrast used: mL of , (if blank None) Oral contrast used: (if blank None) CT DLP: 765.8 mGycm, Automated exposure control for dose reduction was used. FINDINGS: Fracture: None. Osseous structures: Postsurgical changes of the posterior elements from C3 to C6. There is anterior a nd posterior fixation present at C2 to C7. Hardware appears intact. Multilevel degeneration changes w ith osteophyte formation disc space narrowing discussed by complexes and facet joint arthropathy pres ent. Vertebral alignment: Postsurgical straightening alignment. Spinal canal/Neural Foramina: Severe spinal canal stenosis as seen on same day MRI cervical spine inv olving C7-T1. Varying degrees of neural foraminal stenosis throughout the spine. Neck soft tissues: Prevertebral soft tissues are within normal limits. Other: The airway is patent. The lung apices are clear. IMPRESSION: 1. Severe spinal canal stenosis but appreciated on same day MRI cervical spine involving C7-T1. 2. Post surgical changes to see 2 to C7. 3. No evidence of spinal fracture. [facility], , 03/19/2025 9:44 PM
--- NOTE | 2025-03-19 21:54 | XR ---
EXAMINATION TYPE: XR cervical spine comp DATE OF EXAM: 03/19/2025 9:40 PM COMPARISON: CT and MRI same day. 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 FINDINGS: No evidence for fracture. Postsurgical changes with hardware from C2 to C7 as seen on CT and MRI same day. Hardware appears intact. Neural foramen are grossly patent. IMPRESSION: Post surgical changes of the spine please see dedicated CT and MRI for findings. [facility], , 03/19/2025 9:52 PM
[2025-03-20 06:08] LABS: Glucose,Whole Blood 264 mg/dL (70-110)
--- NOTE | 2025-03-20 08:03 | P.PN ---
Progress Note - Text Progress Note Date: 03/20/25 Patient seen and examined again this morning. He continues to have significant weakness at his lower extremities but he feels he has made some improvement in his strength in his lower extremities overnight. He was able to bend his knees and lift his left leg up off the bed slightly. The right leg slightly better than that. He denies any chest pain shortness of breath. He denies any fevers or chills He denies any new pain. On exam he is afebrile At his lower extremities he is able to lift his right leg off the bed for a very short period of time with about 3- out of 5 strength. The left leg was off the bed with 2+ out of 5 strength. He has 3+ out of 5 strength with dorsiflexion plantarflexion. He is able to internally externally rotate his hips without pain. His thighs and calf soft nontender. I have reviewed his imaging of his cervical spine a number of times and the reports. He is scheduled for thoracic MRI today Assessment and plan Acute spinal cord injury due to large disc herniation at C7-T1 Cervical thoracic myelopathy Bilateral lower extremity weakness at the T8 level Slight improvement in strength of the lower extremities bilaterally History of multiple spinal surgeries at the cervical spine with anterior posterior fusion from C3-C7 from 2017 The patient has had some improvement in his strength his lower extremities. He still unable to ambulate and has severe weakness has bilateral lower extremities slightly worse on the left than the right. We have found him to have a large disc herniation at C7-T1 below the level of his prior cervical fusions. I do not think that I can approach that from the anterior side and we would need to approach it posteriorly for appropriate decompression. He would need stabilization for this which would require removal of the hardware above with extension of fusion below with pedicle screw fixation. I discussed the surgery at length with him I discussed the risk complications alternatives and benefits at length I discussed the risk of bleeding risk of infection risk of need for further surgery risk of decrease or loss of motion loss of function malunion nonunion hardware failure nerve damage, as well as the possibility that he is likely to have permanent neurologic loss at his lower extremities due to his spinal cord injury. I think that surgery gives him a chance of recovery for some of his strength and stability for the long-term. I discussed this at length with him I answered his questions the be st my abilities and she understand and he is agreeable to proceed with surgical intervention today. He will stay n.p.o. today for surgery this afternoon. We will plan for surgery today for posterior cervical decompression fusion C7-T1 with removal of hardware and extension of fusion with likely stabilization down to T3
[2025-03-20 08:09] LABS: HCT 42.2 % (39.6-50.0); HGB 14.3 g/dL (13.0-17.0); MCH 29.0 pg (27.0-32.0); MCHC 33.9 g/dL (32.0-37.0); MCV 85.6 FL (80.0-97.0); NRBC Per 100 WBC 0 X 10*3/uL (0.00-0.01); Platelet Count 207 X 10*3/uL (140-440); RBC 4.93 X 10*6/uL (4.40-5.60); RDW 13.3 % (11.5-14.5); WBC 19.27 X 10*3/uL (4.50-10.00)
[2025-03-20 08:59] LABS: BUN/Creat Ratio 25.70 Ratio (12.00-20.00); Blood Urea Nitrogen 25.7 mg/dL (9.0-27.0); Glucose 294 mg/dL (70-110); Magnesium 1.9 mg/dL (1.5-2.4)
[2025-03-20 09:00] LABS: ALT 17 U/L (10-49); AST 17 U/L (14-35); Albumin 4.1 g/dL (3.8-4.9); Albumin/Globulin Ratio 1.58 Ratio (1.60-3.17); Alkaline Phosphatase 56 U/L (41-126); Anion Gap 10.10 mmol/L (4.00-12.00); Calcium 9.3 mg/dL (8.7-10.3); Carbon Dioxide 23.9 mmol/L (21.6-31.8); Chloride 103 mmol/L (96-109); Globulin 2.6 g/dL (1.6-3.3); Potassium 4.4 mmol/L (3.5-5.5); Sodium 137 mmol/L (135-145); Total Protein 6.7 g/dL (6.2-8.2)
[2025-03-20 10:56] LABS: Glucose,Whole Blood 265 mg/dL (70-110)
--- NOTE | 2025-03-20 11:15 | MR ---
EXAMINATION TYPE: MR thoracic spine wo con DATE OF EXAM: 03/20/2025 10:41 AM COMPARISON: MRI the cervical spine.. CLINICAL INDICATION: Male, 64 years old with history of bilat LE weakness. C7/T1 stenosis; PHH, Reid l eg weakness, abnormal MRI of C-spine TECHNIQUE: Multi planar, multi sequence imaging was performed utilizing: T1-weighted, short-tau inver héctor recovery and T2-weighted of the thoracic spine. IV Contrast: mL (None, if empty) FINDINGS: Alignment: Alignment is within normal limits. Vertebral bodies have preserved heights. Spinal cord: Spinal cord is within normal limits for signal. Discs: Mild disc bulge at T8-T9 and T7-T8. Intervertebral disc signal is maintained. No evidence of s ignificant spinal canal or neural foraminal stenosis. There is no evidence of extradural defects or c entral spinal canal narrowing at any thoracic vertebral body level Osseous structures: No abnormal bony edema on inversion recovery sequences. Multilevel osteophyte for mation and facet joint arthropathy. Scattered disc space narrowing. Mild adjoining edema at T8-T9 pos teriorly. IMPRESSION: 1. High-grade stenosis at C7-T1 as described on MRI cervical spine. 2. No evidence for significant spinal canal neural femoral stenosis throughout the remainder of the visualized spine. 3. Mild degeneration changes throughout the spine. [facility], , 03/20/2025 11:13 AM
[2025-03-20 12:31] LABS: Glucose,Whole Blood 237 mg/dL (70-110)
--- NOTE | 2025-03-20 14:32 | P.PN ---
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 Wheeler) approximately 2 months ago, migraine headaches, depression. Presented to the emergency department with a chief complaint of sudden onset numbness extending from periumbilical region downwards throughout groin and bilateral lower extremities followed by weakness of bilateral lower extremities. Patient states he was moving some plants at home when he had sudden onset of numbness around his lower abdomen circling around him like a belt that quickly radiated into his groin and into bilateral lower extremities accompanied by weakness of bilateral lower extremities which resulted in his legs giving out from beneath him causing him to fall to the ground. Patient denied having any dizziness or lightheadedness, headache, neck or back pain, or experiencing any pain in his abdomen, groin, or lower extremities. He denies hitting his head during the fall and denies having any loss of consciousness. But reports due to the sudden onset numbness and weakness he was unable to stand back up and had to have his call EMS for transfer to the hospital. Upon arrival to our facility, patient underwent evaluation in the emergency department. Vital signs upon arrival show blood pressure 165/97, heart rate 88, respiratory rate 18, temp 98.8 F, and SpO2 of 97% on room air. CT lumbar spine CT abdomen and pelvis was also negative for acute intra-abdominal process completed showing no evidence for spinal fracture, no evidence for significant spinal canal stenosis revealing severe right L5-S1 neuroforaminal stenosis and moderate bilateral L4-L5 neuroforaminal stenosis, revealing a right middle lobe pulmonary nodule 8 mm, prostamegaly, colonic diverticulosis, and bilateral adrenal myolipoma's. Labs completed and reviewed. CBC unremarkable. BMP showing hyperglycemia with blood glucose of 146. Liver profile normal findings. Urinalysis positive for glucose and ketones but negative for infection. Patient was admitted under services with consultation to neurology and orthospine surgery. MRI lumbar spine was completed showing no definitive evidence of disc herniation or significant spinal canal stenosis revealing minimal disc degeneration with associated osteoarthritic changes. Physical exam: Patient reports slight improvement of sensation and movement in lower extremities but continues to have noted weakness and sensation is not back to baseline. He continues to have bandlike numbness surrounding waist numbness to groin. Discussed MRI results with patient and plans for OR today, family at bedside and questions were answered. Unable to answer family when they asked how long procedure was explaining that that would be something they needed to talk to the surgeon regarding but all other questions were answered at this time. Vital signs reviewed and stable. General: Nontoxic, no distress and appears stated age. Derm: Skin warm and dry, normal coloration for ethnicity. Head: Atraumatic, normocephalic and symmetric. Eyes: EOM's intact, no lid lag, and anicteric sclera Mouth: no lip lesions, mucus membranes moist Cardiovascular: regular rate and rhythm with normal S1S2, no murmur, positive posterior tibial pulses bilaterally, and cap refill < 2 seconds. Lungs: Respirations even, regular, and unlabored on room air. Lungs CTA bilaterally, no rhonchi, no rales, no wheezing, and no accessory muscle usage. Abdominal: Obese abdomen, soft, nontender to palpation, no guarding, no appreciable organomegaly Ext: No gross muscle atrophy, no edema, no contractures. Movement and sensation in movement and bilateral upper extremities is equal, strong, symmetrical with sensation intact. Bilateral lower extremity weakness is noted. Patient able to bend knees and flex ankles but with moderate weakness noted. Patient unable to lift legs off of bed or perform cevu-gt-limb testing. Patient reports significantly decreased sensation from umbilical region extending downw ards throughout bilateral lower extremities and into toes. Neuro: Speech clear, face symmetrical and CN II-XII. Bilateral lower extremity weakness is noted. Patient able to bend knees and flex ankles but with moderate weakness noted. Patient unable to lift legs off of bed or perform [id number]-po-[id number] testing. Patient reports significantly decreased sensation from umbilical region extending downwards throughout bilateral lower extremities and into toes. Psych: Alert and oriented to person, place, time, and situation. Appropriate and pleasant affect. Assessment and Plan of Care: Preoperative clearance -METS > 4. Patient reports he is fully independent at baseline and is able to ambulate 1-2 blocks without difficulty and up 1 flight of stairs without experiencing shortness of breath and/or chest pain. -NSQIP surgical risk score was calculated. Patient is at a below average risk of serious complication at 4.6% with average risk being 6.2%, below average risk for cardiac complications at 0.3% with average risk being 0.6% and a below average risk of at 0.1% with average risk being 0.2%. -Patient is medically optimized to undergo planned posterior cervical decompression and fusion of C7-T1 with removal of hardware by Dr. Caro later today. -Will consult inpatient rehab postoperatively for discharge planning, to assist with best recovery outcome. Severe spinal canal stenosis involving C7-T1 Acute onset of bilateral lower extremity numbness and weakness Abdominal and periumbilical/suprapubic and groin numbness Severe right L5-S1 neuroforaminal stenosis Moderate bilateral L4-L5 neuroforaminal stenosis - Orthospine surgery following, discussed MRI results in detail with Dr. Caro plan is for OR later today. - Neurology following, discussed plan of care with Dr. Woodruff. . - Continue neurochecks every 4 hours and as needed. - Continue IV steroids with Solu-Medrol 60 mg IVP every 6 hours. - Maintain fall precautions - Bladder scans to monitor for postvoid residual/retention, may require Samuels catheter insertion. Leukocytosis -Reactive secondary to severe spinal canal stenosis and high-dose steroids being administered at this time. No signs of infection. We will continue to monitor with repeat a.m. labs. Type II aat-zdbeeml-oscgawibf diabetes mellitus with hyperglycemia -Hyperglycemia likely secondary to high-dose steroids being administered at this time. Will continue glycemic protocol with Humalog sliding scale. Hypertension - Monitor vital signs and continue daily medication regimen with lisinopril 40 mg daily. Hyperlipidemia - Continue daily medication regimen with atorvastatin 40 mg nightly Obstructive sleep apnea - Continue CPAP nightly and while napping. Data and imaging reviewed: - Vital signs reviewed. Blood pressure 153/83, heart rate 106, respiratory rate 17, temp 97.9 F, and SpO2 of 92% on room air. - Morning labs completed and reviewed. CBC showing leukocytosis with WBC count of 19.27. BMP showing hyperglycemia with blood glucose of 294, calcium 9.3, magnesium 1.9. Liver profile unremarkable. - MRI cervical and thoracic spine showing severe spinal canal stenosis involving C7-T1. CODE STATUS: Full code DVT prophylaxis: Lovenox Discussed with: Patient, Pt's family at bedside, neurologist, and orthospine surgeon Anticipated discharge date: Pending clinical course Anticipated discharge place: Pending clinical course Patient was seen independently by Nurse Pracitioner. This document was prepared using [employer] dictation software. Please allow for errors in customer service sales associate, while rare they do occur. Iain Vaca NP rendered care for this patient independently, reviewed the findings and plan as documented in the note above and agree with plan. I did not physically speak with or examine the patient on this date. . Objective - Vital Signs Vital signs: Vital Signs Temp 97.9 F 03/20/25 07:10 Pulse 106 H 03/20/25 07:10 Resp 17 03/20/25 07:10 BP 153/83 03/20/25 07:10 Pulse Ox 92 L 03/20/25 07:10 FiO2 Intake & Output 03/19/25 03/20/25 03/20/25 18:59 06:59 18:59 Intake Total 236 Output Total 1000 925 Balance -764 -925 Intake: Oral 236 Output: Urine 1000 925 Other: Voiding Method Urinal Urinal # Bowel Movements 1 - Labs CBC & Chem 7: 03/20/25 05:00 03/20/25 05:00 Labs: Abnormal Lab Results - Last 24 Hours (Table) 03/19/25 03/19/25 03/19/25 Range/Units 12:05 17:18 20:39 WBC (4.50-10.00) X 10*3/uL BUN/Creatinine Ratio (12.00-20.00) Ratio Glucose (70-110) mg/dL POC Glucose (mg/dL) 259 H 243 H 266 H (70-110) mg/dL Albumin/Globulin Ratio (1.60-3.17) Ratio 03/20/25 03/20/25 03/20/25 Range/Units 05:00 05:00 06:07 WBC 19.27 H (4.50-10.00) X 10*3/uL BUN/Creatinine Ratio 25.70 H (12.00-20.00) Ratio Glucose 294 H (70-110) mg/dL POC Glucose (mg/dL) 264 H (70-110) mg/dL Albumin/Globulin Ratio 1.58 L (1.60-3.17) Ratio
[2025-03-20 17:16] LABS: Glucose,Whole Blood 250 mg/dL (70-110)
[2025-03-20] MEDS: MIDAZOLAM 2 MG/2 ML VIAL IV ONE (18:51)
[2025-03-20] MEDS: IV FLUID CONTINUATION 1,000 ML IV ONE ×4 (18:53→19:24)
[2025-03-20 19:19] LABS: Glucose,Whole Blood 252 mg/dL (70-110)
--- NOTE | 2025-03-20 19:26 | P.ANPRN ---
Procedure Note - Anesthesia - Invasive Line Right Arterial Line Date of Procedure: 03/20/25 Time of Procedure: 18:50 Location of Patient: PreOp Preparation: Sterile Prep, Sterile Dressing Arterial Line Location: Radial Ultrasound Used: No Needle Guage: 20 G Narrative: Invasive line placement per sterile protocol utilized.
[2025-03-20] MEDS ORDERED: PROPOFOL 10 MG/ML 20 ML VIAL IV ONE (19:30)
[2025-03-20] MEDS ORDERED: PHENYLEPHRINE 10 MG/ML VIAL ONE (19:30)
[2025-03-20] MEDS ORDERED: ROCURONIUM 10 MG/ML (5 ML VIAL) IV ONE (19:30)
[2025-03-20] MEDS ORDERED: TRANEXAMIC 1,000 MG/100ML-NACL PREMIX BAG ONE (19:30)
[2025-03-20] MEDS ORDERED: GLYCOPYRROLATE 0.2 MG/ML 2 ML VIAL ONE (19:30)
[2025-03-20] MEDS ORDERED: LIDOCAINE 1% INJ 10MG/ML (20 ML MDV) ONE (19:30)
[2025-03-20] MEDS ORDERED: KETAMINE HCL IN 0.9 % NACL 50 MG/5 ML SYRINGE ONE (19:30)
[2025-03-20] MEDS ORDERED: fentaNYL (PF) 50 MCG/ML 2 ML AMP ONE (19:30)
[2025-03-20] MEDS ORDERED: NEOSTIGMINE 1 MG/ML 10 ML VIAL ONE (19:30)
[2025-03-20] MEDS: SODIUM CHLORIDE 0.9% 50 ML with ceFAZolin 2,000 MG IV ONE (19:30)
[2025-03-20] MEDS ORDERED: MIDAZOLAM 2 MG/2 ML VIAL ONE (19:30)
[2025-03-20] MEDS: LIDOCAINE 1%-EPI 1:100,000 20 ML VIAL SQ ONE (20:38)
[2025-03-20] MEDS: LACTATED RINGERS 1,000 ML IV ONE ×2 (22:32→22:33)
[2025-03-20] MEDS: ceFAZolin 1,000 MG in SODIUM CHLORIDE 0.9% 1,000 ML IRRIGATION ONE (23:54)
[2025-03-21] MEDS ORDERED: BENZOCAINE/MENTHOL LOZENG 1 EACH LOZENGE MUCOUS MEM PRN (00:54)
[2025-03-21] MEDS ORDERED: HYDROmorphone 1 MG/ML 1 ML SYRINGE IVP PRN (00:54)
[2025-03-21] MEDS ORDERED: SENNOSIDES-DOCUSATE SODIUM 1 EACH TAB PO PRN (00:55)
[2025-03-21 01:11] LABS: Glucose,Whole Blood 230 mg/dL (70-110)
[2025-03-21] MEDS: HYDROmorphone 0.5 MG/0.5 ML SYRINGE IVP PRN (01:13)
--- NOTE | 2025-03-21 01:23 | P.OP ---
Date of Procedure: 03/21/25 Preoperative Diagnosis: Spinal cord injury, Large herniated disc C7-T1 Severe spinal cord stenosis C7-T1 Cervical myelopathy severe bilateral lower extremity weakness, T8 paresthesia, History of prior cervical fusion C2-C7 with retained hardware Postoperative Diagnosis: Same with findings of solid fusion C2-C7 Anesthesia: GETA Pathology: none sent Condition: stable Disposition: PACU Description of Procedure: Preoperative Diagnosis: Severe spinal cord stenosis, spinal cord injury, Large herniated disc C7-T1 Severe spinal cord stenosis C7-T1 Cervical myelopathy severe bilateral lower extremity weakness, T8 paresthesia, History of prior cervical fusion C2-C7 with retained hardware Postoperative Diagnosis: Same with findings of solid fusion C2-C7 Procedure: Application and later removal of Mcbride header setup operator removal of hardware deep bone at C2, C3, C4, C5, C6, C7 posterior cervical decompression with laminectomy and partial facetectomy wide foraminotomies with discectomy C7-T1 Posterior cervical fusion C7-T1, T1-T2, T2-T3 with pedicle screw fixation and extension of fusion up to prior fusion from C2-C7 Evaluation of fusion C2-3 C3-4 C4-5 C5-6 C6-7 with findings of solid fusion Use of the [email or web address] CT-guided preoperative navigation system for hardware placement at T1-T2 and T3 pedicles bilaterally Use of fluoroscopic guidance for hardware placement Harvesting of local autogenous bone graft for use and fusion Use use of bone graft extenders with allograft fibers to supplement the local antis bone graft Surgeon: Dr. 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 OPERATIVE INDICATIONS The patient had severe neurologic change and presented to the hospital due to lower extremity weakness. He has a long history of issues with his cervical spine and has undergone 3 different surgeries at his cervical spine with the most recent being in 2017. He has prior anterior cervical decompression and fusion from C3-C7 and posterior cervical decompression and fusion from C2-C7 which was done at [facility] in 2017. Patient overall has been managing with some chronic issues but had a severe change with lower extremity weakness and falls x 2 and presented to the hospital yesterday. The patient has had long-standing issues in their neck and upper extremities but these been managed adequately over the past several years without new neurologic changes. He was seen and found to have profound change in his bilateral lower extremities with weakness and paresthesias just above his umbilicus and below. He had initial workup with imaging of his lumbar spine which did not show any severe central changes at his spine. He was having urinary retention as well. Further workup and evaluation revealed severe stenosis at C7-T1 with large disc herniation and evidence of myelopathy. He had had prior fusion from C2-C7 which appeared stable but the adjacent level had severe change with profound stenosis which was felt to be causing his new symptoms with weakness and paresthesias and paralysis. Further workup through his thoracic spine did not reveal further changes below the T1 level. We discussed various treatment options including surgery, and the patient wishes to proceed with surgery We discussed the risk, patient's alternatives and benefits of surgery including but not limited to, risk of bleeding risk of infection, risk of need for further surgery, risk of decreased, loss of motion, muscle function, malunion nonunion, hardware failure, nerve damage, paralysis, heart attack, blindness and . We discussed the nature of his issues and the profound neurologic changes that he is having. This morning he was showing some response to the steroid medication and had some increase in his strength in his bilateral lower extremities. He was not making further improvement we felt that surgery was necessary for him to potentially gain the most benefit and to decompress his spinal cord. I stressed to him that he had a spinal cord injury with severe weakness and there is significant potential that he does not regain significant neurologic function. It is extremely likely that he has permanent neurologic damage due to the injury of the spinal cord from the disc herniation at C7-T1. I felt that decompression would significantly destabilize the area and he would need significant fixation for stability. We plan for utilizing the prior fusion and extending down to T3 or T4 for appropriate stabilization below to allow for fusion. Surgery would give him the best potential of regaining neurologic function via decompression of the spinal cord. He understood that the position of the disc herniation was tenuous and pose a risk with the surgery itself. We had long discussions about this and he did elect to proceed with surgical intervention as soon as possible. OPERATIVE SUMMARY After discussing all the risks, patient alternatives and benefits at length, the patient elected to proceed with surgical intervention, signed informed consent, and presented for their procedure. The patient was seen and examined in the preoperative holding area and the surgical site was marked. The patient was given antibiotics and brought to the operating room. The patient was sedated and intubated by anesthesia in standard fashion. While the patient was supine on her stretcher I was able to clean the area for the appropriate Mcbride header setup operator and I was able to apply the Mcbride head h older to her scalp appropriately with the appropriate compression. He was found to be stable and clear. The patient was positioned on to the operating room table in a prone position with the Mcbride header setup operator intact and in good position and alignment with her neck in good neutral alignment and position on the appropriate frame which was well-padded and well molded. We were careful to pad any bony prominences and pressure points. We were careful to maintain the patient's cervical spine and good neutral alignment and position throughout. C arm was brought in and I was able to manipulate the area at her cervical spine carefully to get excellent alignment position noting a prior fusion from C2-C7 The patient was prepped and draped in a normal standard fashion. I did shave some of her hair posteriorly . an appropriate timeout and keystone protocol performed. We were able to proceed with the surgery. The local wound area was infiltrated with local anesthetic. Incision was made sharply through skin skin base tissue at the midline from C2- T3 using the prior incision from C2-C7. I was able to dissect down over the spinous processes over the lamina and down to the lateral masses and over the lamina and lateral aspect of C2 bilaterally. Intraoperative C-arm was utilized to establish appropriate level positively. I was able to easily identify the lateral mass screws from C2-C7. There were exposed appropriately. I was able to remove the Screws from C2-C7 bilaterally and remove the rods. I was able to check the areas and there was no evidence of motion from C2-C7. I placed a clamp at the T2 spinous process for Ziehm guidance navigation at C4 spinous process. The wound was ninoska irrigated and suctioned dry and draped appropriately we did an appropriate spin with the CT navigation system. I was able to expose down over the posterior margins from T3-C2. Is able to visualize the area and had good guidance. With the guidance as well as the C arm in good position I was able to establish starting point at T1-T2 and T3 bilaterally in preparation for the pedicle screw to get good alignment good position. This was monitored closely on guidance with CT scan and with the intraoperative C arm repeatedly. Is able to get excellent alignment and position the hole was palpated and good for oseguera good base mall was tapped and a 5.0 x 30 mm mm screw was placed in good alignment good position with excellent bony purchase at the pedicle T1-T2 and T3 bilaterally. A repeat spin was done with the navigation system which showed excellent position of all the pedicle screws at T1-T2 and T3 bilaterally. It also showed good position of the screws from C2-C7. With these new screws intact I turned my attention to the decompression. At C7-T1 I did a wide bilateral laminectomy with partial foraminotomies. Decompression was complex with combination of high-speed bur curettes and Kerrison rongeurs and pituitary. I had to do extra wide decompression in order to gain access to the disc space at C7-T1. All the bone that was removed was saved stripped and morselized for local antis bone grafting. This was used later in the case as bone graft. Once I was out far enough lateral I was able to expose down to the disc space particular to the left where there was more stenosis on imaging. I was able to palpate and remove 2 very large fragments of bone and of disc w hich gave excellent decompression ventrally at the C7-T1 disc space at the spinal cord. I had excellent decompression ventrally at C7-T1. I was very satisfied with the discectomy. An excellent decompression dorsally at C7-T1 with wide bilateral decompression. There is no evidence of any dural tear or leak. Good hemostasis was maintained. At this point I turned my attention back to the hardware. I was able to remove the lateral mass screws at the right at C2-C3 and C4. The remainder of the screws on the right at C5 and C6 I had to leave intact. I will remove the bilateral screws at C7 posteriorly. The lateral mass screws at C5 and 6 on the right and at C2-C6 on the left were all embedded in the significant portions of bone. I tried to remove some of the bone to gain access to the screw head where I could appropriate aligned and remove the screw itself. This was not possible without removing significant portions of bone. I did not feel I can remove substantial bone at the area to gain access to the portion of the screw to remove it without compromising the lateral mass and the establish fusion. I felt that it would cause more damage to make further attempts to remove the screws rather than leave them and reuse the screws themselves at C5 and 6 on the right and C2 to see 6 on the left. I decided to use a 4.0 carin on the right as I was able to manipulate it and just fit it into the C5 and C6 lateral mass screws and into the new screws at T1-T3. The carin was measured cut bent and contoured and placed appropriately from C5-T3 and Screws were placed appropriately tightened and torqued appropriately. On the left side I used a 3.5 mm carin in order to appropriately place it into all of the lateral mass screws from C2-C6 and extend to the pedicle screws through T3 on the left. It was measured cut and contoured and placed well with Screws over each of the screws and tightened and torqued appropriately. Construct was checked and found to have excellent stability. With this intact I was able to place the local autogenous bone graft with additional bone graft enhancer as necessary into the decorticated facet joints and lateral masses down to transverse processes of T3 as well as decorticated lateral masses. With the bone graft intact, a stable construct, and good decompression at the appropriate levels, we were able to proceed with closure. Good hemostasis was maintained. There is no evidence of dural tear or leak. The fascia was closed for a watertight closure. he subcuticular tissue was closed with absorbable suture. Skin was closed with jarad. The wound was cleaned and dried and dressed with the appropriate dressing. The drapes were broken down. The patient was gently rolled back onto their hospital bed being careful to maintain their cervical spine and good neutral alignment and position in her hard collar. I was able to remove the Mcbride header setup operator atraumatically without any evidence of any issues at the pin sites. They were woken up by anesthesia, extubated, and brought to the recovery room in good stable condition. The patient will be admitted to the hospital for appropriate postoperative care, medical management and monitoring. We will continue to follow them closely about the postoperative course.
[2025-03-21] MEDS: LACTATED RINGERS 1,000 ML IV SCH (02:21)
[2025-03-21] MEDS: SODIUM CHLORIDE 0.9% 1,000 ML IV SCH (02:49)
[2025-03-21 06:13] LABS: Glucose,Whole Blood 224 mg/dL (70-110)
[2025-03-21] MEDS: metFORMIN 500 MG TAB PO SCH (06:54)
[2025-03-21] MEDS ORDERED: fentaNYL (PF) 50 MCG/ML 2 ML AMP IV PRN (07:00)
[2025-03-21] MEDS ORDERED: ONDANSETRON 4 MG/2 ML VIAL IVP PRN (07:00)
--- NOTE | 2025-03-21 07:07 | FL ---
EXAMINATION TYPE: FL guidance operating room, XR cervical spine limited DATE OF EXAM: 03/21/2025 12:21 AM COMPARISON: Pre Operative Images if available both CT/MRI or plain film CLINICAL INDICATION: Male, 64 years old with history of HARDWARE PLACEMENT; TECHNIQUE: FL guidance operating room, XR cervical spine limited, multiple fluoroscopic images provid ed for procedure. DAP: 333.6 mGym2 Gycm2 uGym2 cGycm2 or equivalent. FINDINGS: Fluoroscopic images during internal fixation/arthroplasty demonstrate hardware in appropriate positio n. Hardware appears intact. No immediate complication identified. IMPRESSION: 1. No evidence for intraoperative complication. 2. Please see the operative/procedural note for further details. [facility], , 03/21/2025 7:05 AM
[2025-03-21] MEDS: SENNOSIDES-DOCUSATE SODIUM 1 EACH TAB PO SCH (08:05)
[2025-03-21 08:26] LABS: HCT 39.0 % (39.6-50.0); HGB 12.7 g/dL (13.0-17.0); MCH 28.6 pg (27.0-32.0); MCHC 32.6 g/dL (32.0-37.0); MCV 87.8 FL (80.0-97.0); NRBC Per 100 WBC 0 X 10*3/uL (0.00-0.01); Platelet Count 206 X 10*3/uL (140-440); RBC 4.44 X 10*6/uL (4.40-5.60); RDW 13.4 % (11.5-14.5); WBC 17.93 X 10*3/uL (4.50-10.00)
[2025-03-21] MEDS: ceFAZolin 2 GM in DEXTROSE 5% IN WATER 50 ML IVPB SCH (08:52)
[2025-03-21 08:53] LABS: Anion Gap 9.00 mmol/L (4.00-12.00); BUN/Creat Ratio 27.80 Ratio (12.00-20.00); Blood Urea Nitrogen 27.8 mg/dL (9.0-27.0); Calcium 8.7 mg/dL (8.7-10.3); Carbon Dioxide 26.0 mmol/L (21.6-31.8); Chloride 105 mmol/L (96-109); Glucose 243 mg/dL (70-110); Magnesium 2.0 mg/dL (1.5-2.4); Potassium 4.8 mmol/L (3.5-5.5); Sodium 140 mmol/L (135-145)
--- NOTE | 2025-03-21 10:51 | P.PN ---
Subjective Progress Note Date: 03/20/25 Patient was seen for a follow-up. Denies any new neurological symptoms. Continues to be very weak in the lower limbs. Objective - Vital Signs Vital signs: Vital Signs Temp 97.9 F 03/20/25 07:10 Pulse 106 H 03/20/25 07:10 Resp 17 03/20/25 07:10 BP 153/83 03/20/25 07:10 Pulse Ox 92 L 03/20/25 07:10 FiO2 Intake & Output 03/19/25 03/20/25 03/20/25 18:59 06:59 18:59 Intake Total 236 Output Total 1000 925 Balance -764 -925 Intake: Oral 236 Output: Urine 1000 925 Other: Voiding Method Urinal Urinal Indwelling Catheter # Bowel Movements 1 - Exam Mental status, speech and language functions, cranial nerves are normal. On muscle strength testing, the strength is normal in the arms except right interossei which is about 5-whereas normal on the right. In the lower limbs (right/left) hip flexion 2+/1, knee extension 5/3, ankle dorsiflexion 5/2, toe extension 5/4. Continues to have sensory level till T8. - Labs CBC & Chem 7: 03/21/25 02:47 03/21/25 02:47 Labs: Abnormal Lab Results - Last 24 Hours (Table) 03/19/25 03/19/25 03/20/25 Range/Units 17:18 20:39 05:00 WBC 19.27 H (4.50-10.00) X 10*3/uL BUN/Creatinine Ratio (12.00-20.00) Ratio Glucose (70-110) mg/dL POC Glucose (mg/dL) 243 H 266 H (70-110) mg/dL Albumin/Globulin Ratio (1.60-3.17) Ratio 03/20/25 03/20/25 03/20/25 Range/Units 05:00 06:07 10:54 WBC (4.50-10.00) X 10*3/uL BUN/Creatinine Ratio 25.70 H (12.00-20.00) Ratio Glucose 294 H (70-110) mg/dL POC Glucose (mg/dL) 264 H 265 H (70-110) mg/dL Albumin/Globulin Ratio 1.58 L (1.60-3.17) Ratio 03/20/25 Range/Units 12:29 WBC (4.50-10.00) X 10*3/uL BUN/Creatinine Ratio (12.00-20.00) Ratio Glucose (70-110) mg/dL POC Glucose (mg/dL) 237 H (70-110) mg/dL Albumin/Globulin Ratio (1.60-3.17) Ratio Assessment and Plan Assessment: * Acute paraparesis, with left leg much weaker than the right. Patient has a sensory level at T8. MRI of the cervical spine revealed large disc herniation at C7-T1 producing severe spinal canal stenosis with probable myelomalacia. * Positive Lhermitte signs, due to above * Urinary retention, likely due to spinal stenosis. * History of cervical spinal fusion 2016 * Diabetes * Hyperlipidemia Plan: * MRI of the cervical spine reveals severe spinal canal stenosis secondary to disc osteophyte complex at the level of C7 and T1 possibly related to altered mechanics. There is mild cord edema. Neurosurgical consultation recommended. Postsurgical changes from C2-C7. Degeneration with moderate right C5-C6 and moderate left C6-C7 neural foraminal stenosis secondary to disc osteophyte complexes. I personally reviewed MRI, agree with the findings. * Orthopedic spine on board, and patient undergoing decompressive surgery later this evening. * MRI thoracic spine revealed no evidence of significant spinal canal stenosis. Mild degenerative changes. I personally reviewed MRI agree with the findings. * MRI of the lumbar spine, revealed no definitive evidence of disc herniation or significant spinal canal stenosis. Minimal disc degeneration with associated osteoarthritic changes. I personally reviewed MRI, agree with the findings. * Patient may need MRI thoracic spine as well, but patient can only have 1 body part MRI today, therefore we will recommend cervical spine as priority. * B12 685, folate 8.3. We will start folate replacement. * Patient on methylprednisolone 60 mg every 6 hours. * Discussed with primary team.
[2025-03-21 11:28] LABS: Glucose,Whole Blood 276 mg/dL (70-110)
--- NOTE | 2025-03-21 11:29 | P.PN ---
Progress Note - Text Progress Note Date: 03/21/25 Postoperative day #1 Patient is seen and examined today at bedside. The patient has some pain around the surgical site as expected but it is very well-controlled and he is not requiring much medicine for his pain. He says his sensation in his lower extremities is better today but his motor fu nction is declined. He is not having any troubles with his arms or his neck. He is not having any problems breathing. He is not having nausea or vomiting. He says he feels better in terms of his sensation over his legs thighs and lower extremities. Physical Exam Afebrile with stable vital signs Abdomen is soft nontender. Chest has good excursion deep and space expiration The incision site is clean dry and intact with a dressing over it in a hard collar intact. His neck is supple anteriorly Upper extremities have 5 out of 5 strength throughout In his lower extremities he has improved sensation globally over his lower extremities. His feet will flinch and there is some subtle movement 1 out of 5 at his toes and feet. He is essentially 0 out of 5 at his hips and knees with flexion at his hips and knees. He is unable to dorsiflex or plantarflex voluntarily. He has 0-1 out of 5 with dorsiflexion of his feet bilaterally. Calves and thighs were soft nontender without evidence of DVT. Assessment/Plan Postoperative day #1 status post posterior cervical decompression with discectomy at C7-T1 and fusion with extension of his fusion from C3-C7 with new extension down to T3 Acute spinal cord injury due to large disc herniation C7-T1 Bilateral lower extremity weakness T8 paresthesias History of prior cervical fusion C3-C7 The procedure went well with the discectomy proceeding as expected. We were able to get large disc herniation and bone fragment removed at C7-T1 for good decompression at the anterior cervical spine and good posterior decompression with a laminectomy and facetectomy for anatomy at C7-T1. The fusion went well with placement of hardware down to T3 and extension from his prior fusion from C3. He seems to have had improvement in his paresthesias in his lower extremities but definitely has worsening motor function postoperatively. Surgery does involve some manipulation around the spinal cord particularly with a discectomy at C7-T1. There was no untoward event or misplacement of any hardware at the time of surgery. We did a intraoperative CT scanning after the hardware was placed which showed good alignment good position. At this point I think that he has some spinal cord swelling and we would like to see how he does through his recovery with medical management at this point. He does have some improvement in his paresthesias but we will have to watch closely to see if there is improvement in his motor function in his lower extremities in particular. He should continue his high dose steroid medication. We will continue to increase the patient's mobilization with therapy. He will need inpatient rehab posthospitalization. We are seeing if he is going to be eligible for the possibility of rehab [facility] or other [facility] higher level of care for his spinal cord injury We will continue pain control with oral or IV medications. We'll continue to follow patient closely.
[2025-03-21] MEDS: FOLIC ACID 1 MG TAB PO SCH (11:35)
[2025-03-21] MEDS: HYDROcodone/APAP 10-325MG 1 EACH TAB PO PRN (14:36)
--- NOTE | 2025-03-21 15:57 | P.PN ---
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 Wheeler) approximately 2 months ago, migraine headaches, depression. Presented to the emergency department with a chief complaint of sudden onset numbness extending from periumbilical region downwards throughout groin and bilateral lower extremities followed by weakness of bilateral lower extremities. Patient states he was moving some plants at home when he had sudden onset of numbness around his lower abdomen circling around him like a belt that quickly radiated into his groin and into bilateral lower extremities accompanied by weakness of bilateral lower extremities which resulted in his legs giving out from beneath him causing him to fall to the ground. Patient denied having any dizziness or lightheadedness, headache, neck or back pain, or experiencing any pain in his abdomen, groin, or lower extremities. He denies hitting his head during the fall and denies having any loss of consciousness. But reports due to the sudden onset numbness and weakness he was unable to stand back up and had to have his call EMS for transfer to the hospital. Upon arrival to our facility, patient underwent evaluation in the emergency department. Vital signs upon arrival show blood pressure 165/97, heart rate 88, respiratory rate 18, temp 98.8 F, and SpO2 of 97% on room air. CT lumbar spine CT abdomen and pelvis was also negative for acute intra-abdominal process completed showing no evidence for spinal fracture, no evidence for significant spinal canal stenosis revealing severe right L5-S1 neuroforaminal stenosis and moderate bilateral L4-L5 neuroforaminal stenosis, revealing a right middle lobe pulmonary nodule 8 mm, prostamegaly, colonic diverticulosis, and bilateral adrenal myolipoma's. Labs completed and reviewed. CBC unremarkable. BMP showing hyperglycemia with blood glucose of 146. Liver profile normal findings. Urinalysis positive for glucose and ketones but negative for infection. Patient was admitted under services with consultation to neurology and orthospine surgery. MRI lumbar spine was completed showing no definitive evidence of disc herniation or significant spinal canal stenosis revealing minimal disc degeneration with associated osteoarthritic changes. Patient underwent extensive cervical spinal surgery on the evening of 03/20/2025 through 03/21/2025. Physical exam: Patient was seen and fully evaluated at bedside this morning. He reports numbness to abdomen, groin, and lower extremities has resolved. But states worsening bilateral lower extremity weakness. Vital signs reviewed and stable. General: Nontoxic, no distress and appears stated age. Derm: Skin warm and dry, normal coloration for ethnicity. Head: Atraumatic, normocephalic and symmetric. Eyes: EOM's intact, no lid lag, and anicteric sclera Mouth: no lip lesions, mucus membranes moist Cardiovascular: regular rate and rhythm with normal S1S2, no murmur, positive posterior tibial pulses bilaterally, and cap refill < 2 seconds. Lungs: Respirations even, regular, and unlabored on room air. Lungs CTA bilaterally, no rhonchi, no rales, no wheezing, and no accessory muscle usage. Abdominal: Obese abdomen, soft, nontender to palpation, no guarding, no appreciable organomegaly. Left lower extremity flaccid and right lower extremity with minimal movement/involuntary movement/jerk. Ext: No gross muscle atrophy, no edema, no contractures. Sensation intact. Left lower extremity flaccid and right lower extremity with minimal movement/involuntary movement/jerk. Neuro: Speech clear, face symmetrical and CN II-XII. Psych: Alert and oriented to person, place, time, and situation. Appropriate and pleasant affect. Assessment and Plan of Care: Acute spinal cord injury resulting in severe spinal canal stenosis involving C7- T1 Status post extensive cervical decompression with discectomy at C7-T1 and fusion with extension of fusion from C3-C7 with new extension down to T3 Acute onset of bilateral lower extremity numbness and weakness Abdominal and periumbilical/suprapubic and groin numbness Severe right L5-S1 neuroforaminal stenosis Moderate bilateral L4-L5 neuroforaminal stenosis - Orthospine surgery following and Dr. Noyola and took patient for extensive cervical decompression with discectomy at C7-T1 and fusion with extension of fusion from C3-C7 with new extension down to T3 - Continue neurochecks every 4 hours and as needed. - Continue IV steroids with Solu-Medrol 60 mg IVP every 6 hours. - Maintain fall precautions - Continue Samuels catheter management - Consult placed for inpatient rehab. - Continue Unna boot bilaterally to prevent foot drop - PT/OT following Leukocytosis -Reactive secondary to severe spinal canal stenosis and high-dose steroids being administered at this time. No signs of infection. We will continue to monitor with repeat a.m. labs. Type II [id number] diabetes mellitus with hyperglycemia -Hyperglycemia likely secondary to high-dose steroids being administered at this time. Will continue glycemic protocol with Humalog sliding scale. Currently blood glucose 224. Hypertension - Monitor vital signs and continue daily medication regimen with lisinopril 40 mg daily. Hyperlipidemia - Continue daily medication regimen with atorvastatin 40 mg nightly Obstructive sleep apnea - Continue CPAP nightly and while napping. Data and imaging reviewed: - Vital signs reviewed. Blood pressure 161/85, heart rate 98, respiratory rate 18, temp 98.7 F, and SpO2 of 97% on 2 L O2. - Morning labs completed and reviewed. CBC showing leukocytosis with WBC count of 17.93 and stable normocytic anemia with hemoglobin of 12.7. BMP unremarkable with exception of mild prerenal azotemia with BUN of 27.8, creatinine 1.0, GFR of 85. Magnesium 2.0. CODE STATUS: Full code DVT prophylaxis: Lovenox Discussed with: Patient and orthospine surgeon Anticipated discharge date: Pending clinical course Anticipated discharge place: Pending clinical course Patient was seen independently by Nurse Pracitioner. This document was prepared using [employer] dictation software. Please allow for errors in paint maker, while rare they do occur. Iain Vaca NP rendered care for this patient independently, reviewed the findings and plan as documented in the note above and agree with plan. I did not physically speak with or examine the patient on this date. . Objective - Vital Signs Vital signs: Vital Signs Temp 98.7 F 03/21/25 06:42 Pulse 98 03/21/25 06:42 Resp 18 03/21/25 06:42 BP 161/85 03/21/25 06:42 Pulse Ox 97 03/21/25 06:42 FiO2 Intake & Output 03/20/25 03/21/25 03/21/25 18:59 06:59 18:59 Intake Total 100 2751 Output Total 1150 800 Balance -1050 1951 Intake: IV 100 2751 Output: Urine 1150 800 Other: Voiding Method Indwelling Catheter Indwelling Catheter - Labs CBC & Chem 7: 03/21/25 02:47 03/21/25 02:47 Labs: Abnormal Lab Results - Last 24 Hours (Table) 03/20/25 03/20/25 03/20/25 Range/Units 10:54 12:29 17:15 WBC (4.50-10.00) X 10*3/uL Hgb (13.0-17.0) g/dL Hct (39.6-50.0) % BUN (9.0-27.0) mg/dL BUN/Creatinine Ratio (12.00-20.00) Ratio Glucose (70-110) mg/dL POC Glucose (mg/dL) 265 H 237 H 250 H (70-110) mg/dL 03/20/25 03/21/25 03/21/25 Range/Units 19:11 01:00 02:47 WBC 17.93 H (4.50-10.00) X 10*3/uL Hgb 12.7 L (13.0-17.0) g/dL Hct 39.0 L (39.6-50.0) % BUN (9.0-27.0) mg/dL BUN/Creatinine Ratio (12.00-20.00) Ratio Glucose (70-110) mg/dL POC Glucose (mg/dL) 252 H 230 H (70-110) mg/dL 03/21/25 03/21/25 Range/Units 02:47 06:11 WBC (4.50-10.00) X 10*3/uL Hgb (13.0-17.0) g/dL Hct (39.6-50.0) % BUN 27.8 H (9.0-27.0) mg/dL BUN/Creatinine Ratio 27.80 H (12.00-20.00) Ratio Glucose 243 H (70-110) mg/dL POC Glucose (mg/dL) 224 H (70-110) mg/dL
[2025-03-21 16:43] LABS: Glucose,Whole Blood 319 mg/dL (70-110)
[2025-03-21 20:40] LABS: Glucose,Whole Blood 307 mg/dL (70-110)
[2025-03-22 05:59] LABS: Glucose,Whole Blood 255 mg/dL (70-110)
[2025-03-22 08:18] LABS: Anion Gap 12.00 mmol/L (4.00-12.00); BUN/Creat Ratio 25.56 Ratio (12.00-20.00); Blood Urea Nitrogen 23.0 mg/dL (9.0-27.0); Calcium 8.4 mg/dL (8.7-10.3); Carbon Dioxide 23.0 mmol/L (21.6-31.8); Chloride 102 mmol/L (96-109); Glucose 274 mg/dL (70-110); Magnesium 2.2 mg/dL (1.5-2.4); Potassium 4.3 mmol/L (3.5-5.5); Sodium 137 mmol/L (135-145)
[2025-03-22 08:25] LABS: HCT 37.6 % (39.6-50.0); HGB 12.5 g/dL (13.0-17.0); MCH 29.3 pg (27.0-32.0); MCHC 33.2 g/dL (32.0-37.0); MCV 88.3 FL (80.0-97.0); NRBC Per 100 WBC 0 X 10*3/uL (0.00-0.01); Platelet Count 201 X 10*3/uL (140-440); RBC 4.26 X 10*6/uL (4.40-5.60); RDW 13.5 % (11.5-14.5); WBC 12.93 X 10*3/uL (4.50-10.00)
--- NOTE | 2025-03-22 08:39 | P.PN ---
Progress Note - Text Progress Note Date: 03/22/25 Postoperative day #2 Patient is seen and examined today at bedside. The patient is not having significant pain and he feels his pain is adequately controlled. He feels like his arms are doing well. He is still not able to move his legs. He feels that the sensation at his legs is improved but his motor function is worsened from immediately preop. Therapy worked with him yesterday. They have not yet been done today. Physical Exam Afebrile with stable vital signs Abdomen is soft nontender. Chest has good excursion deep and space expiration The incision site dressing is clean dry and intact. No erythema there is no purulence. Calves and thighs were soft nontender without evidence of DVT. His upper extremities have good active and passive range of motion throughout. He is not able to sit himself up on his bed. He he seems to have weakness through his trunk. His left lower extremity is essentially flaccid. There is some response with Babinski. He has some twitching in his feet with stimuli on the soles. He is not able to actively dorsiflex plantarflex or flex or extend his knees or hips. Samuels catheter is intact Assessment/Plan Postoperative day #2 status post posterior cervical decompression and fusion C7- T1 with discectomy at C7-T1 and extension of stabilization from the cervical to the thoracic down to T3 Spinal cord injury C7-T1 due to large disc herniation Bilateral lower extremity weakness Patient continues to have severe weakness and paralysis at his lower extremities. It seems that his cord injury is somewhat determining itself. He has significant weakness in his lower extremities and proximal around his pelvis as well. I feel that the decompression went well and that he likely has swelling at his cord injury level that is still creating substantial neurologic change and profound deficits. We are anticipating neurology evaluation further. It is difficult to predict how his neurologic injury will respond. He will continue his steroid medication and we will increase the dosage to see if we can alleviate some of the swelling. I will order repeat CT scan at the cervical thoracic area. We will continue to increase the patient's mobilization with therapy. I discussed with him in regards to inpatient rehabilitation. I think that a [facility] center would suit him better and offer him potential for increased facility for progress. I discussed this with him and will discuss it further with his today as well. It is difficult for them in terms of travel and proximity and I will discuss that with him as well. We will continue pain control with oral or IV medications. We'll continue to follow patient closely.
[2025-03-22 09:26] LABS: Basophils # (A) 0.02 X 10*3/uL (0.00-0.10); Basophils % (A) 0.2 %; Eosinophils # (A) 0 X 10*3/uL (0.04-0.35); Eosinophils % (A) 0 %; Immature Grans, Automated 0.90 %; Lymphocytes # (A) 0.87 X 10*3/uL (0.90-5.00); Lymphocytes % (A) 6.7 %; Monocytes # (A) 1.93 X 10*3/uL (0.20-1.00); Monocytes % (A) 14.9 %; Neutrophils # (A) 9.99 X 10*3/uL (1.80-7.70); Neutrophils % (A) 77.3 %
--- NOTE | 2025-03-22 10:38 | P.PN ---
Subjective Progress Note Date: 03/21/25 Patient was seen for a follow-up. Patient had undergone cervical decompressive surgery. Patient states the numbness in the legs have resolved, but now he is completely paraplegic. Patient appears to be in good spirits. Objective - Vital Signs Vital signs: Vital Signs Temp 99.5 F 03/21/25 14:03 Pulse 102 H 03/21/25 14:03 Resp 18 03/21/25 14:03 BP 148/80 03/21/25 14:03 Pulse Ox 98 03/21/25 14:03 FiO2 Intake & Output 03/20/25 03/21/25 03/21/25 18:59 06:59 18:59 Intake Total 100 2751 Output Total 1150 800 Balance -1050 1951 Intake: IV 100 2751 Output: Urine 1150 800 Other: Voiding Method Indwelling Catheter Indwelling Catheter - Exam Mental status, speech and language functions, cranial nerves are normal. On muscle strength testing, the strength is normal in the arms except right interossei which is about 5-whereas normal on the left. Patient is completely paraplegic in the lower limbs, with no movement noticed at all. Patient states that orthopedic surgery believes that strength will improve before they get worse. (As of yesterday strength in lower limbs (right/left) hip flexion 2+/1, knee extension 5/3, ankle dorsiflexion 5/2, toe extension 5/4). Sensations in her legs have much improved. - Labs CBC & Chem 7: 03/22/25 04:55 03/22/25 04:55 Labs: Abnormal Lab Results - Last 24 Hours (Table) 03/20/25 03/21/25 03/21/25 Range/Units 19:11 01:00 02:47 WBC 17.93 H (4.50-10.00) X 10*3/uL Hgb 12.7 L (13.0-17.0) g/dL Hct 39.0 L (39.6-50.0) % BUN (9.0-27.0) mg/dL BUN/Creatinine Ratio (12.00-20.00) Ratio Glucose (70-110) mg/dL POC Glucose (mg/dL) 252 H 230 H (70-110) mg/dL 03/21/25 03/21/25 03/21/25 Range/Units 02:47 06:11 11:25 WBC (4.50-10.00) X 10*3/uL Hgb (13.0-17.0) g/dL Hct (39.6-50.0) % BUN 27.8 H (9.0-27.0) mg/dL BUN/Creatinine Ratio 27.80 H (12.00-20.00) Ratio Glucose 243 H (70-110) mg/dL POC Glucose (mg/dL) 224 H 276 H (70-110) mg/dL 03/21/25 Range/Units 16:41 WBC (4.50-10.00) X 10*3/uL Hgb (13.0-17.0) g/dL Hct (39.6-50.0) % BUN (9.0-27.0) mg/dL BUN/Creatinine Ratio (12.00-20.00) Ratio Glucose (70-110) mg/dL POC Glucose (mg/dL) 319 H (70-110) mg/dL Assessment and Plan Assessment: * Acute paraparesis, with left leg much weaker than the right. Patient has a sensory level at T8. MRI of the cervical spine revealed large disc herniation at C7-T1 producing severe spinal canal stenosis with probable myelomalacia. * Status post cervical decompressive surgery, now with complete paraplegia. * Positive Lhermitte signs, due to above * Urinary retention, likely due to spinal stenosis. * History of cervical spinal fusion 2016 * Diabetes * Hyperlipidemia Plan: * Patient had undergone cervical decompressive surgery. Patient's sensations in the lower limbs have improved, but now patient is completely paraplegic. Orthopedic surgery already on the case, and aware. * MRI of the cervical spine reveals severe spinal canal stenosis secondary to disc osteophyte complex at the level of C7 and T1 possibly related to altered mechanics. There is mild cord edema. Neurosurgical consultation recommended. Postsurgical changes from C2-C7. Degeneration with moderate right C5-C6 and moderate left C6-C7 neural foraminal stenosis secondary to disc osteophyte complexes. I personally reviewed MRI, agree with the findings. * Orthopedic spine on board, and patient undergoing decompressive surgery later this evening. * MRI thoracic spine revealed no evidence of significant spinal canal stenosis. Mild degenerative changes. I personally reviewed MRI agree with the findings. * MRI of the lumbar spine, revealed no definitive evidence of disc herniation or significant spinal canal stenosis. Minimal disc degeneration with associated osteoarthritic changes. I personally reviewed MRI, agree with the findings. * B12 685, folate 8.3. We will start folate replacement. * Patient on methylprednisolone 60 mg every 6 hours.
--- NOTE | 2025-03-22 11:11 | CT ---
EXAMINATION TYPE: CT cervical spine wo con DATE OF EXAM: 03/22/2025 10:33 AM COMPARISON: Correlation MRI from 03/19/2025 CLINICAL INDICATION: Male, 64 years old with history of Post cervical thoracic fusion to T3 for SCI; Post cervical thoracic fusion to T3 for SCI TECHNIQUE: CT of the cervical spine without IV contrast. Coronal and sagittal reconstructions perform ed. CT DLP: 655.5 mGycm, Automated exposure control for dose reduction was used. FINDINGS: Interval C7-T1 laminectomy and decompression of the spinal canal. Posterior midline skin jarad with soft tissue air and fluid along the posterior midline soft tissues along the length of the skin stap les. Previous C4-C7 ACDF. The posterior cervical fusion has now been extended down to the T3 level (previously down to the C7 l evel). Revised on the right now to extend from C5 rather than C2. There is satisfactory interbody ankylosis are present C2 down to the C7 levels. Residual hyperostotic changes contribute to variable moderate severe neuroforaminal stenoses especial ly mid and lower cervical spine. IMPRESSION: 1. Interval surgery with C7-T1 laminectomy at the site of cord compression seen on MRI. Posterior mid line skin jarad as well as air and postoperative fluid/suspected seroma in the posterior soft tissu es along the entire length of the skin jarad. Note that this area spans approximately 13 cm cranioc audal. 2. Posterior fusion changes now extend down to the T3 level (previously down to the C7 level). The pr evious C4-C7 ACDF remains in place. Revision of the posterior fusion hardware on the right now to ext end from C5 rather than C2. [facility], Workstation: [email or web address], 03/22/2025 11:08 AM
[2025-03-22] MEDS: methylPREDNISolone SOD SUCCI 125 MG/2 ML VIAL IV SCH (11:12)
[2025-03-22] MEDS: LACTATED RINGERS 1,000 ML IV ONE (11:13)
--- NOTE | 2025-03-22 11:14 | CT ---
EXAMINATION TYPE: CT thoracic spine wo con DATE OF EXAM: 03/22/2025 10:33 AM COMPARISON: None. CLINICAL INDICATION: Male, 64 years old with history of Post cervical thoracic fusion to T3 for SCI; [facility], Post cervical thoracic fusion to T3 for SCI TECHNIQUE: Axial images of the thoracic spine were obtained without contrast. Coronal and sagittal re constructions performed. CT DLP: 1951.8 mGycm, Automated exposure control for dose reduction was used. FINDINGS: There is DISH within the mid and lower thoracic spine. Alignment is maintained. Vertebral body height s are preserved. Interval C7-T1 laminectomy. Posterior postoperative changes with posterior fusion extending down to t he T3 level. These changes are described on separate CT of the cervical spine. Prominent dependent opacities in the lower lobes with segmental collapse left lower lobe. Some adhere nt debris/mucus within the trachea and right mainstem bronchus. IMPRESSION: 1. The C7-T1 laminectomy and posterior fusion extending down to the T3 level described on separate ce rvical spine CT report. 2. No vertebral compression collapse or malalignment. 3. Prominent basilar atelectasis with areas of subsegmental collapse basilar left lower lobe. 4. Note prominent mucus and debris within the trachea and right mainstem bronchus. This may place the patient at risk for aspiration. Clinical surveillance recommended. 5. DISH mid and lower thoracic spine. [facility], Workstation: [email or web address], 03/22/2025 11:12 AM
[2025-03-22 11:22] LABS: Basophils # (A) 0.02 10*3/uL (0.00-0.10); Basophils % (A) 0.1 %; Eosinophils # (A) 0.00 10*3/uL (0.04-0.35); Eosinophils % (A) 0.0 %; HCT 36.4 % (39.6-50.0); HGB 12.4 g/dL (13.0-17.0); Lymphocytes # (A) 1.06 10*3/uL (0.90-5.00); Lymphocytes % (A) 7.6 %; MCH 29.6 pg (27.0-32.0); MCHC 34.1 g/dL (32.0-37.0); MCV 86.9 fL (80.0-97.0); Monocytes # (A) 2.30 10*3/uL (0.20-1.00); Monocytes % (A) 16.4 %; Neutrophils # (A) 10.46 10*3/uL (1.80-7.70); Neutrophils % (A) 74.6 %; Platelet Count 175 10*3/uL (140-440); RBC 4.19 10*6/uL (4.40-5.60); RDW 13.4 % (11.5-14.5); WBC 14.02 10*3/uL (4.50-10.00)
[2025-03-22 11:49] LABS: Glucose,Whole Blood 246 mg/dL (70-110)
[2025-03-22] MEDS: INSULIN GLARGINE (LANTUS) 100 UNIT/ML SYR SQ SCH (12:14)
[2025-03-22] MEDS: diazePAM 5 MG TAB PO PRN (12:18)
[2025-03-22] MEDS: IPRATROPIUM-ALBUTEROL 3 ML NEB INHALATION PRN (12:47)
--- NOTE | 2025-03-22 12:53 | P.PN ---
Subjective Progress Note Date: 03/22/25 Hospital Course: Patient is a pleasant 64-year-old male with a past medical history of hypertension, hyperlipidemia, type II lkx-tmydhif-radtzgojw diabetes mellitus, involuntary limb muscle fasciculations/movements on Mirapex and last seen neurologist (Dr. Wheeler) approximately 2 months ago, migraine headaches, depression. Presented to the emergency department with a chief complaint of sudden onset numbness extending from periumbilical region downwards throughout groin and bilateral lower extremities followed by weakness of bilateral lower extremities. Patient states he was moving some plants at home when he had sudden onset of numbness around his lower abdomen circling around him like a belt that quickly radiated into his groin and into bilateral lower extremities accompanied by weakness of bilateral lower extremities which resulted in his legs giving out from beneath him causing him to fall to the ground. Patient denied having any dizziness or lightheadedness, headache, neck or back pain, or experiencing any pain in his abdomen, groin, or lower extremities. He denies hitting his head during the fall and denies having any loss of consciousness. But reports due to the sudden onset numbness and weakness he was unable to stand back up and had to have his call EMS for transfer to the hospital. Upon arrival to our facility, patient underwent evaluation in the emergency department. Vital signs upon arrival show blood pressure 165/97, heart rate 88, respiratory rate 18, temp 98.8 F, and SpO2 of 97% on room air. CT lumbar spine CT abdomen and pelvis was also negative for acute intra-abdominal process completed showing no evidence for spinal fracture, no evidence for significant spinal canal stenosis revealing severe right L5-S1 neuroforaminal stenosis and moderate bilateral L4-L5 neuroforaminal stenosis, revealing a right middle lobe pulmonary nodule 8 mm, prostamegaly, colonic diverticulosis, and bilateral adrenal myolipoma's. Labs completed and reviewed. CBC unremarkable. BMP showing hyperglycemia with blood glucose of 146. Liver profile normal findings. Urinalysis positive for glucose and ketones but negative for infection. Patient was admitted under services with consultation to neurology and orthospine surgery. MRI lumbar spine was completed showing no definitive evidence of disc herniation or significant spinal canal stenosis revealing minimal disc degeneration with associated osteoarthritic changes. Patient underwent extensive cervical spinal surgery on the evening of 03/20/2025 through 03/21/2025. Subjective: Patient was seen and examined at bedside. No acute events overnight. Patient reports shortness of breath that started a few days ago. Patient is unable to move his bilateral lower extremity and reports bilateral lower extremity numbness. Denies chest pain, fever, chills, nausea or vomiting, belly pain, diarrhea or constipation. Pertinent positives and negatives as discussed above, a complete review of systems was performed and all other systems are negative. Vitals: Signs Reviewed Physical Exam: General: nontoxic, no distress, appears at stated age Derm: warm, dry, intact, dressing noted at the back of neck with no signs of drainage or bleeding. Head: atraumatic, normocephalic, symmetric Eyes: EOMI, anicteric sclera Mouth: no lip lesion, mucus membranes moist Cardiovascular: S1 S2 reg, no murmur, rubs, or gallops Lungs: CTA bilateral, no rhonchi, no rales, no accessory muscle use Abdominal: soft, non-tender to palpataion, no appreciable organomegaly Extremities: no gross muscle atrophy, no edema, no contractures, patient is unable to move bilateral lower extremity Neuro: Alert, Oriented, CNII-XII grossly intact, gait normal Psych: well appearing, appropriate affect Data Received Today: Pertinent Labs: WBC 14.02, hemoglobin 12.4, hematocrit 36.4, platelet 175, neutrophils 10.46, sodium 137, potassium 4.3, BUN 23, creatinine 0.9, glucose 246-274 Imaging: Cervical spine CT showed interval surgery with a C7-T1 laminectomy at the site of cord compression seen on MRI. Posterior midline skin jarad as well as air and postoperative fluid/suspected seroma in the posterior soft tissues along the entire length of the skin jarad. Note that this area spans approximately 13 cm craniocaudal. Posterior fusion changes do not extend down to the T3 level previous down to the C7 level. The previous C4-C7 ACDF remains in place. Revision of the posterior fusion hardware on the right now asked to extend from C5 rather than C2. Thoracic spine of CT showed C7-T1 laminectomy and posterior fusion extending down to the T3 level described on separate cervical spine CT report. No vertebral compression collapse or malalignment. Prominent basilar atelectasis with areas of subsegmental collapse basilar left lower lobe. Note prominent mucus and debris within the trachea and right mainstem bronchus. This may place the patient at risk for aspiration. Clinical surveillance recommended. DISH mid lower thoracic spine. Assessment and Plan: Acute blood loss, without significant anemia Seroma in the posterior soft tissues along the length of the skin jarad Acute spinal cord injury resulting in severe spinal canal stenosis involving C7- T1 Status post extensive cervical decompression with discectomy at C7-T1 and fusion with extension of fusion from C3-C7 with new extension down to T3 Acute onset of bilateral lower extremity numbness and weakness Abdominal and periumbilical/suprapubic and groin numbness Severe right L5-S1 neuroforaminal stenosis Moderate bilateral L4-L5 neuroforaminal stenosis - Orthopedic surgery following status post extensive cervical decompression with dissecting at C7-T1 and fusion with extension of fusion from C3-C7 with new extension down to T3 -Repeat CBC -Hold aspirin and blood pressure medicine due to blood loss as well as h ypotension -Patient was found to be hypotensive, 1 L bolus of normal saline was ordered - Continue neurochecks every 4 hours and as needed. - Continue IV steroids with Solu-Medrol 100 mg IVP every 6 hours. - Maintain fall precautions - Continue Samuels catheter management - Consult placed for inpatient rehab. - Continue Unna boot bilaterally to prevent foot drop - PT/OT following Acute hypoxic respiratory failure Order DuoNebs 4 times daily and every 2 hours as needed Order chest x-ray Leukocytosis -Reactive secondary to severe spinal canal stenosis and high-dose steroids being administered at this time. No signs of infection. We will continue to monitor with repeat a.m. labs. Type II vdt-hpzcsne-bnhstiidd diabetes mellitus with hyperglycemia -Hyperglycemia likely secondary to high-dose steroids being administered at this time. Will continue glycemic protocol with Humalog sliding scale. Currently blood glucose 224. - Lantus 15 units subcu daily added as basal insulin Hypotension - Hold blood pressure medicine Hyperlipidemia - Continue daily medication regimen with atorvastatin 40 mg nightly Obstructive sleep apnea - Continue CPAP nightly and while napping. CODE STATUS: Full code DVT prophylaxis: Hold Lovenox in the setting of acute blood loss Anticipated discharge date: Pending clinical course Anticipated discharge place: Pending clinical course I have seen and evaluated the patient today. Discussed with the resident and agree with the residents finding and plan as documented in the resident's note. Changes highlighted in blue font. Objective - Vital Signs Vital signs: Vital Signs Temp 98.2 F 03/22/25 01:41 Pulse 103 H 03/22/25 01:41 Resp 16 03/22/25 01:41 BP 115/67 03/22/25 01:41 Pulse Ox 93 L 03/22/25 01:41 FiO2 Intake & Output 03/21/25 03/22/25 03/22/25 18:59 06:59 18:59 Intake Total 1860 Output Total 4150 Balance -2290 Intake: Oral 1860 Output: Urine 4150 Other: Voiding Method Indwelling Catheter - Labs CBC & Chem 7: 03/22/25 10:46 03/22/25 04:55 Labs: Abnormal Lab Results - Last 24 Hours (Table) 03/21/25 03/21/25 03/21/25 Range/Units 02:47 02:47 11:25 WBC 17.93 H (4.50-10.00) X 10*3/uL Hgb 12.7 L (13.0-17.0) g/dL Hct 39.0 L (39.6-50.0) % BUN 27.8 H (9.0-27.0) mg/dL BUN/Creatinine Ratio 27.80 H (12.00-20.00) Ratio Glucose 243 H (70-110) mg/dL POC Glucose (mg/dL) 276 H (70-110) mg/dL 03/21/25 03/21/25 03/22/25 Range/Units 16:41 20:38 05:57 WBC (4.50-10.00) X 10*3/uL Hgb (13.0-17.0) g/dL Hct (39.6-50.0) % BUN (9.0-27.0) mg/dL BUN/Creatinine Ratio (12.00-20.00) Ratio Glucose (70-110) mg/dL POC Glucose (mg/dL) 319 H 307 H 255 H (70-110) mg/dL
--- NOTE | 2025-03-22 13:32 | XR ---
EXAMINATION TYPE: XR chest 1V portable DATE OF EXAM: 03/22/2025 1:03 PM COMPARISON: Chest radiographs from 02/19/2024. CLINICAL INDICATION: Male, 64 years old with history of hypoxia; [facility] TECHNIQUE: XR chest 1V portable Frontal view of the chest. FINDINGS: Lungs/Pleura: Low lung volumes are present. There is no evidence of focal consolidation, or pneumotho rax. Blunting of the costophrenic angles bilaterally left greater than right. Pulmonary vascularity: Unremarkable. Heart/mediastinum: Cardiomediastinal silhouette is unremarkable. Musculoskeletal: No acute osseous pathology. There is fixation hardware in the lower cervical spine. Other findings: None Lines/Tubes: IMPRESSION: Low lung volumes with a generalized hazy appearance which could represent atelectasis versus pulmonar y edema layering pleural effusions may also be present. [facility], , 03/22/2025 1:29 PM
[2025-03-22 13:48] LABS: ABG HCO3 24 mmol/L (21-25); ABG PCO2 36 mmHg (35-45); ABG PH 7.43 (7.35-7.45); ABG PO2 64 mmHg (83-108); ABG TCO2 25 mmol/L (19-24); Allen Test Performed? Yes
--- NOTE | 2025-03-22 14:48 | P.CONS ---
History of Present Illness - Reason for Consult Consult date: 03/22/25 rehab recommendations - Chief Complaint paraplegia, SCI - History of Present Illness Mr "TERENCE Mireles is a 64 y/o right handed male who lives with his in a single story home with 5 kristine with B/L HR, stays on the main floor. He is normally independent with mobility and ADLs, occasionally uses a cane. He is on disability for chronic neck pain with history of fusion. His worse. He has step children that are local and could assist some on discharge. Patient [facility] on [facility] with concerns for lower abdomen and leg numbness. Patient was walking and moving plants around at home when he suddenly felt numb. His legs gave out of him, had weaknessHe has a history of chronic neck problems. He was unable to stand back up. His called EMS for transfer to the hospital. Upon arrival to our facility, patient underwent evaluation in the emergency department. Vital signs, blood pressure 165/97, heart rate 88, respiratory rate 18, temp 98.8 F, and SpO2 of 97% on room air. CT lumbar spine CT abdomen and pelvis was also negative for acute intra-abdomin al process completed showing no evidence for spinal fracture, no evidence for significant spinal canal stenosis , severe right L5-S1 neuroforaminal stenosis and moderate bilateral L4-L5 neuroforaminal stenosis, revealing a right middle lobe pulmonary nodule 8 mm, prostamegaly, colonic diverticulosis, and bilateral adrenal myolipoma's. MRI C spine and T spine ordered, MRI C spine with severe spinal canal stenosis secondary to disk osteophyte complex at the level of C7 through T1, mild cord edema. Patient was admitted under services with consultation to neurology and orthospine surgery. MRI lumbar spine was completed showing no definitive evidence of disc herniation or significant spinal canal stenosis revealing minimal disc degeneration with associated osteoarthritic changes. Patient underwent posterior cervical decompression with discectomy at C7-T1 and fusion with extension of prior fusion from C3-7 to T3. PM&R consulted for rehab recommendations. Patient was evaluated by therapies, needing max assist with bathing, Mod assist with UB dressing, grooming min A, total assist with toileting, bed mobility, unable to transfer or ambulate at this time. 03/22: Patient resting in bed, does appear to be labored at times with his breathing. He is being placed on Airvo, satting at 84%. He states he started to feel short due to a panic attack but he does have a weak cough. BP 96/65, HR 110. Patient reports he has history of neck issues, was having tingling in his fingers and toes back in 2016 and had cervical fusion which corrected the symptoms. In October (2023) he reports he had a fall which caused him some issues with his neck and left shoulder. He reports he did get it checked out and no surgical intervention at that time. He notes he has had some neck pain since that fall. He no longer has any numbness in his abdomen but states he cannot feel when he needs to urinate or have a BM. He reports LBM 2 days ago, has a disla catheter. His leg numbness and sensation is different than prior to surgery, instead of numb feels more of a tingling on the outside of his legs. He thinks the sensation in his legs is better after the surgery. He is unable to move his legs, denies issues with his arm strength or sensation. DW patient that I highly recommend a Spinal Cord Injury unit for rehab. He has had Miranda Renee come do an evaluation already. Review of Systems reviewed as above in HPI Past Medical History Past Medical History: Diabetes Mellitus, Hypertension Additional Past Medical History / Comment(s): depression History of Any Multi-Drug Resistant Organisms: None Reported Past Surgical History: Appendectomy, Cholecystectomy Additional Past Surgical History / Comment(s): neck surgery, left elbow, Past Anesthesia/Blood Transfusion Reactions: No Reported Reaction Past Psychological History: Depression Smoking Status: Never smoker Past Alcohol Use History: None Reported Past Drug Use History: None Reported Medications and Allergies Home Medications Medication Instructions Recorded Confirmed Type Aspirin EC [Ecotrin Low Dose] 81 mg PO DAILY 02/15/25 03/18/25 History Cetirizine HCl [Zyrtec] 10 mg PO DAILY 02/15/25 03/18/25 History Cholecalciferol (Vitamin D3) 50 mcg PO DAILY 02/15/25 03/18/25 History [Vitamin D3 (50 Mcg = 2000 Iu)] Dulaglutide [Trulicity] 4.5 mg SQ SA 02/15/25 03/18/25 History Famotidine 20 mg PO DAILY 02/15/25 03/18/25 History Fluticasone Nasal [place] [Flonase 1 spray EA NOSTRIL DAILY 02/15/25 03/18/25 History Nasal [place]] Ipratropium [place] 0.06%Nasal 1 spray NASAL BID 02/15/25 03/18/25 History [Atrovent Nasal 0.06%] Nortriptyline [Pamelor] 100 mg PO HS 02/15/25 03/18/25 History Pramipexole [Mirapex] 0.25 mg PO HS 02/15/25 03/18/25 History Simvastatin [Zocor] 80 mg PO HS 02/15/25 03/18/25 History Vibegron [Gemtesa] 75 mg PO DAILY 02/15/25 03/18/25 History lisinopriL 40 mg PO DAILY 02/15/25 03/18/25 History metFORMIN HCL [Metformin HCl] 500 mg PO BID-W/MEALS 02/15/25 03/18/25 History EPINEPHrine (Auto Inject) [Epipen] 0.3 mg IM ONCE PRN 03/18/25 03/18/25 History Testosterone Cypionate 200 mg IM Q14D 03/18/25 03/18/25 History [Depo-Testosterone] Vitamin B-12 250mcg 500 mcg PO DAILY 03/18/25 03/18/25 History Allergies Allergy/AdvReac Type Severity Reaction Status Date / Time bee venom protein (honey bee) Allergy Anaphylaxis Verified 03/18/25 15:55 pollen extracts AdvReac Itching Verified 03/18/25 15:55 Physical Exam Vitals: Vital Signs Temp Pulse Pulse Resp BP Pulse Ox 03/22/25 09:24 119 H 89/62 03/22/25 08:35 111 H 03/22/25 07:42 99.5 F 81 18 100/64 95 03/22/25 01:41 98.2 F 103 H 16 115/67 93 L 03/21/25 19:37 99.1 F 106 H 16 146/80 94 L 03/21/25 14:03 99.5 F 102 H 18 148/80 98 Intake and Output 03/21/25 03/22/25 03/22/25 22:59 06:59 14:59 Intake Total 1860 Output Total 1600 2550 Balance -1600 -690 Intake: Oral 1860 Output: Urine 1600 2550 Other: Voiding Method Indwelling Catheter Indwelling Catheter General: WDWN, obese male, laying in bed with HOB elevated, alert HEENT: head normocephalic, atraumatic; mouth dry, external ears intact with hearing intact to conversational speech Neck:C collar on CV: HR elevated but does not appear to be in cardiac distress Lungs: weak cough, intermittent labored breathing, airvo placed Abdomen: soft, NT, ND : disla catheter MSK: full ROM bilateral UE except decreased bilateral shoulders due to pain vs weakness, no AROM of LE, PROM functional MMT: B/L SABD 4/5, EE 4/5, EF 4+/5, WE/FABD/HG 5-/5 LE 0/5 Neuro: Alert and oriented x 4, speech is clear and fluent MSR: LE 0/4, flat babinskis CN 2-12 grossly intact Sensation intact to light touch bilateral UE, insensate to inner thigh, and LE. Lateral thighs reports tingling sensation to light touch Reports sensation intact across abdomen and chest. Coordination: HTS impaired Proprioception: impaired bilateral great toe Psych: mood calm, affect flat Extremities: calves supple, non tender, no edema, SCDs on Skin: intact where exposed except for IV, cervical incision not visible due to collar. Results CBC & Chem 7: 03/22/25 10:46 03/22/25 04:55 Labs: Abnormal Lab Results - Last 24 Hours (Table) 03/21/25 03/21/25 03/22/25 Range/Units 16:41 20:38 04:55 WBC (4.50-10.00) X 10*3/uL RBC (4.40-5.60) X 10*6/uL Hgb (13.0-17.0) g/dL Hct (39.6-50.0) % Immature Gran # (0.00-0.04) X 10*3/uL Neutrophils # (1.80-7.70) X 10*3/uL Lymphocytes # (0.90-5.00) X 10*3/uL Monocytes # (0.20-1.00) X 10*3/uL Eosinophils # (0.04-0.35) X 10*3/uL BUN/Creatinine Ratio 25.56 H (12.00-20.00) Ratio Glucose 274 H (70-110) mg/dL POC Glucose (mg/dL) 319 H 307 H (70-110) mg/dL Calcium 8.4 L (8.7-10.3) mg/dL 03/22/25 03/22/25 03/22/25 Range/Units 04:55 05:57 10:46 WBC 12.93 H 14.02 H (4.50-10.00) X 10*3/uL RBC 4.26 L 4.19 L (4.40-5.60) X 10*6/uL Hgb 12.5 L 12.4 L (13.0-17.0) g/dL Hct 37.6 L 36.4 L (39.6-50.0) % Immature Gran # 0.12 H 0.18 H (0.00-0.04) X 10*3/uL Neutrophils # 9.99 H 10.46 H (1.80-7.70) X 10*3/uL Lymphocytes # 0.87 L (0.90-5.00) X 10*3/uL Monocytes # 1.93 H 2.30 H (0.20-1.00) X 10*3/uL Eosinophils # 0 L 0.00 L (0.04-0.35) X 10*3/uL BUN/Creatinine Ratio (12.00-20.00) Ratio Glucose (70-110) mg/dL POC Glucose (mg/dL) 255 H (70-110) mg/dL Calcium (8.7-10.3) mg/dL 03/22/25 Range/Units 11:41 WBC (4.50-10.00) X 10*3/uL RBC (4.40-5.60) X 10*6/uL Hgb (13.0-17.0) g/dL Hct (39.6-50.0) % Immature Gran # (0.00-0.04) X 10*3/uL Neutrophils # (1.80-7.70) X 10*3/uL Lymphocytes # (0.90-5.00) X 10*3/uL Monocytes # (0.20-1.00) X 10*3/uL Eosinophils # (0.04-0.35) X 10*3/uL BUN/Creatinine Ratio (12.00-20.00) Ratio Glucose (70-110) mg/dL POC Glucose (mg/dL) 246 H (70-110) mg/dL Calcium (8.7-10.3) mg/dL Assessment and Plan Assessment: #Acute spinal cord injury 2/2 large disc herniation at C7-T1 -comprehensive therapies -c collar per neuro/ orthospine team -recommend Q 2 hr position changes #Paraplegia secondary to above #s/p posterior cervical decompression with discectomy at C7-T1 and fusion with extension of prior fusion from C3-7 to T3 #T8 paresthesias -reports saddle paresthesias #Neurogenic bowel/bladder -currently has disla catheter, may be a candidate for intermittent straight cath with rehab/at home if able to perform with appropriate dexterity of UE. #Respiratory distress -03/22 patient satting at 84%, respiratory placing airvo. Weak cough #Chronic neck pain -history of cervical fusion #Fall less than 6 months ago #Pain Management -[place] 10/325 mg Q 4 hrs prn, Flexeril 10 mg TID prn, Diluaid Q 4 hrs prn #Anxiety/depression -Valium 5 mg QID prn, Pamelor 100 mg QHS #DVT proph -ASA, Lovenox #Comorbidities: DM, HTN, HLD, migraine headaches #Your medical dx and management Dispo: Discussed with patient, highly recommending a specialized Spinal Cord I njury Unit for Inpatient rehab as I feel it is the best level of care for his situation. Patient is agreeable. He He will require insurance authorization. Patient is noted to be below baseline function, would benefit from a structured Inpatient rehabilitation stay with 3 hrs of therapy a day, 6-7 days a week with Physical Therapy, Occupational Therapy and Speech Therapy (if indicated). Patient has medical complexity requiring nursing services, close physician medical management, and interdisciplinary team approach for rehab. Patient is motivated and has good social support. Patient states he is willing to go to [facility], he [facility] not [facility] to [facility] to [facility]. If for some reason patient does not go to [facility], we would be willing to accept him at [facility] but highly encouraged the higher level of care at SCI Unit. Patient seen and examined in collaboration with Dr Barbosa. Thank you for consulting our services.
--- NOTE | 2025-03-22 15:04 | CT ---
EXAMINATION TYPE: CT angio chest DATE OF EXAM: 03/22/2025 COMPARISON: CT abdomen and pelvis dated 03/18/2025. CLINICAL INDICATION: Male, 64 years old with history of r/o pulmonary embolism; PHH, R/O PE. TECHNIQUE: CTA scan of the thorax is performed with IV Contrast, patient injected with 100ml mL of Isovue 370, p ulmonary embolism protocol. MIP images are created and reviewed. CT DLP: 594.[address] CTDI: mGy Automated exposure control for dose reduction was used. FINDINGS: There is been marked interval progression of left lung volume loss with progressive atelectasis. The findings raise suspicion for bronchial obstruction neoplasm. There is been interval development of mi ld right lower lobe atelectasis. There is no pleural effusion or pneumothorax. The great vessels chest are normal. There is no filling defect within the pulmonary arterial circulat ion to suggest pulmonary embolism. There is no definite mediastinal, hilar or axillary adenopathy. Limited scanning through the upper abdomen reveals dilated air and fluid-filled colon. There are postsurgical changes of cervical and upper thoracic fusion. There are no focal osseous lesi ons. IMPRESSION: 1. No evidence of pulmonary embolism 2. markedly progressive left lung volume loss with marked atelectasis increasing suspicion for endob ronchial obstruction/neoplasm and further evaluation may be indicated. 3. Interval development of mild right lower lobe atelectasis. [facility], , 03/22/2025 3:02 PM
[2025-03-22] MEDS: IPRATROPIUM-ALBUTEROL 3 ML NEB INHALATION SCH (15:17)
[2025-03-22 16:17] LABS: Glucose,Whole Blood 261 mg/dL (70-110)
[2025-03-22] MEDS ORDERED: VANCOMYCIN IV PER PHARMACY 1 EACH MISC MISCELLANE PRN (16:52)
--- NOTE | 2025-03-22 17:40 | P.CNPUL ---
History of Present Illness Consult date: 03/22/25 Reason for consult: hypoxemia History of present illness: This is a 64-year-old male patient was undergone a C 7 T1 discectomy, done posteriorly with wide laminectomy and foraminotomy and partial facetectomy. The patient was experiencing cervical myelopathy with severe bilateral lower extremity weakness and T8 paresthesia. The patient has previous history of cervical spine fusion C2-C7. The patient was found to have a large herniated disc C7-T1 with severe spinal cord stenosis and based on that the patient was taken to the operating room and underwent a C7-T1 discectomy on 03/21/2025. The patient has become progressively more hypoxic. Currently he is on Airvo at 60 L and FiO2 of 90%. His current pulse ox is in order of 90 to 93%. Slightly tachycardic. Blood pressure is also soft at 89/62. Based on worsening hypoxemia, CT of the chest was done and the patient was found to have significant volume loss in the left lung compared to the right. There is marked volume loss and atelectasis in addition to an area of consolidation in the left upper lobe and elevation of the left hemidiaphragm in addition to significant gastric distention. The patient has dilated air in the stomach and colon. Blood work shows a white cell count of 14, hemoglobin 12.4 and a platelet count of 175. Sodium levels at 137, bicarb is at 23, potassium level is at 4.3 with a chloride of 102. BUN 23 with a creatinine of 0.9. The patient is resting comfortably in bed. He is wearing a hard neck collar. He is reporting some mild shortness of breath even at rest. He is tolerating the Airvo. He is currently on IV Solu-Medrol 100 mg every 6 hours post neck surgery. He is also on IV fluids with l normal saline at rate of 75 cc an hour. Comorbidities include hypertension, hyperlipidemia, diabetes mellitus type 2, obstructive sleep apnea maintained on CPAP therapy on outpatient basis Review of Systems Constitutional: Reports daytime sleepiness, Reports fatigue, Reports weakness, Reports weight gain Eyes: denies as per HPI, denies blurred vision, denies bulging eye, denies decreased vision, denies diplopia, denies discharge, denies dry eye, denies irritation, denies itching, denies pain, denies photophobia, denies loss of peripheral vision, denies loss of vision, denies tunnel vision/blind spots Ears: deny: decreased hearing, ear discharge, earache, tinnitus Ears, nose, mouth and throat: Reports as per HPI Breasts: absent: as per HPI, gynecomastia Cardiovascular: Reports as per HPI Respiratory: Reports dyspnea Gastrointestinal: Reports as per HPI (Abdominal distention, no flatus) Genitourinary: Reports as per HPI Musculoskeletal: Reports as per HPI, Reports arm numbness/tingling, Reports gait dysfunction, Reports leg numbness/tingling, Reports limitation of motion, Reports muscle weakness Musculoskeletal: absent: ankle pain, ankle stiffness, ankle swelling, as per HPI, elbow pain, elbow stiffness, elbow swelling, foot pain, foot stiffness, foot swelling, hand pain, hand stiffness, hand swelling, hip pain, hip stiffness, hip swelling, knee pain, knee stiffness, knee swelling, shoulder pain, shoulder stiffness, shoulder swelling, wrist pain, wrist stiffness, wrist swelling Integumentary: Reports as per HPI Neurological: Reports ataxia, Reports balance difficulties, Reports lack of coordination, Reports motor disturbance, Reports vertigo Psychiatric: Reports as per HPI Endocrine: Reports as per HPI Hematologic/Lymphatic: Reports as per HPI Allergic/Immunologic: Reports as per HPI Past Medical History Past Medical History: Diabetes Mellitus, Hypertension, Sleep Apnea/CPAP/BIPAP Additional Past Medical History / Comment(s): depression History of Any Multi-Drug Resistant Organisms: None Reported Past Surgical History: Appendectomy, Cholecystectomy Additional Past Surgical History / Comment(s): neck surgery, left elbow, Past Anesthesia/Blood Transfusion Reactions: No Reported Reaction Past Psychological History: Depression Smoking Status: Never smoker Past Alcohol Use History: None Reported Past Drug Use History: None Reported Medications and Allergies Home Medications Medication Instructions Recorded Confirmed Type Aspirin EC [Ecotrin Low Dose] 81 mg PO DAILY 02/15/25 03/18/25 History Cetirizine HCl [Zyrtec] 10 mg PO DAILY 02/15/25 03/18/25 History Cholecalciferol (Vitamin D3) 50 mcg PO DAILY 02/15/25 03/18/25 History [Vitamin D3 (50 Mcg = 2000 Iu)] Dulaglutide [Trulicity] 4.5 mg SQ SA 02/15/25 03/18/25 History Famotidine 20 mg PO DAILY 02/15/25 03/18/25 History Fluticasone Nasal Constantia [Flonase 1 spray EA NOSTRIL DAILY 02/15/25 03/18/25 History Nasal Constantia] Ipratropium Casey 0.06%Nasal 1 spray NASAL BID 02/15/25 03/18/25 History [Atrovent Nasal 0.06%] Nortriptyline [Pamelor] 100 mg PO HS 02/15/25 03/18/25 History Pramipexole [Mirapex] 0.25 mg PO HS 02/15/25 03/18/25 History Simvastatin [Zocor] 80 mg PO HS 02/15/25 03/18/25 History Vibegron [Gemtesa] 75 mg PO DAILY 02/15/25 03/18/25 History lisinopriL 40 mg PO DAILY 02/15/25 03/18/25 History metFORMIN HCL [Metformin HCl] 500 mg PO BID-W/MEALS 02/15/25 03/18/25 History EPINEPHrine (Auto Inject) [Epipen] 0.3 mg IM ONCE PRN 03/18/25 03/18/25 History Testosterone Cypionate 200 mg IM Q14D 03/18/25 03/18/25 History [Depo-Testosterone] Vitamin B-12 250mcg 500 mcg PO DAILY 03/18/25 03/18/25 History Allergies Allergy/AdvReac Type Severity Reaction Status Date / Time bee venom protein (honey bee) Allergy Anaphylaxis Verified 03/18/25 15:55 pollen extracts AdvReac Itching Verified 03/18/25 15:55 Physical Exam Vitals: Vital Signs Temp Pulse Pulse Pulse Resp BP Pulse Ox 03/22/25 15:32 103 H 03/22/25 15:21 93 L 03/22/25 15:17 107 H 03/22/25 13:15 90 L 03/22/25 13:13 85 L 03/22/25 13:02 108 H 03/22/25 12:50 104 H 03/22/25 09:24 119 H 89/62 03/22/25 08:35 111 H 03/22/25 07:42 99.5 F 81 18 100/64 95 03/22/25 01:41 98.2 F 103 H 16 115/67 93 L 03/21/25 19:37 99.1 F 106 H 16 146/80 94 L FiO2 03/22/25 15:32 03/22/25 15:21 90 05/15/25 15:17 03/22/25 13:15 90 03/22/25 13:13 03/22/25 13:02 03/22/25 12:50 03/22/25 09:24 03/22/25 08:35 03/22/25 07:42 03/22/25 01:41 03/21/25 19:37 Intake and Output 03/22/25 03/22/25 03/22/25 06:59 14:59 22:59 Intake Total 1860 Output Total 2550 400 Balance -690 -400 Intake: Oral 1860 Output: Urine 2550 400 Other: Voiding Method Indwelling Catheter General: nontoxic, no distress, appears at stated age, patient is currently on Airvo at 60 L and FiO2 of 90%. The patient is wearing a hard neck collar. Derm: warm, dry, intact, dressing noted at the back of neck with no signs of drainage or bleeding. Head: atraumatic, normocephalic, symmetric Eyes: EOMI, anicteric sclera Mouth: no lip lesion, mucus membranes moist Cardiovascular: S1 S2 reg, no murmur, rubs, or gallops Lungs: Diminished breath on the left compared to the right. Nearly absent breath on the left lung base Abdominal: soft, abdomen is quite distended and tympanic with marked diminished bowel sounds. Extremities: no gross muscle atrophy, no edema, no contractures, patient is unable to move bilateral lower extremity Neuro: Alert, Oriented, CNII-XII grossly intact, gait cannot be assessed as the patient has absent motor function lower extremities bilaterally patient has bilateral foot drop. Reflexes are diminished. No Babinski. No clonus. Psych: well appearing, appropriate affect Results - Laboratory Findings CBC and BMP: 03/22/25 10:46 03/22/25 04:55 ABG ABG pH 7.43 (7.35-7.45) 03/22/25 13:42 ABG pCO2 36 mmHg (35-45) 03/22/25 13:42 ABG pO2 64 mmHg (83-108) L 03/22/25 13:42 ABG O2 Saturation 92.8 % (94-97) L 03/22/25 13:42 Abnormal lab findings: Abnormal Labs 03/18/25 03/18/25 03/18/25 13:43 20:07 23:16 WBC RBC Hgb Hct Immature Gran # Neutrophils # Lymphocytes # Monocytes # Eosinophils # ABG pO2 ABG Total CO2 ABG O2 Saturation Hemoglobin BUN BUN/Creatinine Ratio Glucose 146 H POC Glucose (mg/dL) 161 H 217 H Calcium Albumin/Globulin Ratio Urine Glucose (UA) Urine Ketones 03/18/25 03/19/25 03/19/25 23:56 06:06 12:05 WBC RBC Hgb Hct Immature Gran # Neutrophils # Lymphocytes # Monocytes # Eosinophils # ABG pO2 ABG Total CO2 ABG O2 Saturation Hemoglobin BUN BUN/Creatinine Ratio Glucose POC Glucose (mg/dL) 195 H 259 H Calcium Albumin/Globulin Ratio Urine Glucose (UA) 4+ H Urine Ketones 1+ H 03/19/25 03/19/25 03/20/25 17:18 20:39 05:00 WBC 19.27 H RBC Hgb Hct Immature Gran # Neutrophils # Lymphocytes # Monocytes # Eosinophils # ABG pO2 ABG Total CO2 ABG O2 Saturation Hemoglobin BUN BUN/Creatinine Ratio Glucose POC Glucose (mg/dL) 243 H 266 H Calcium Albumin/Globulin Ratio Urine Glucose (UA) Urine Ketones 03/20/25 03/20/25 03/20/25 05:00 06:07 10:54 WBC RBC Hgb Hct Immature Gran # Neutrophils # Lymphocytes # Monocytes # Eosinophils # ABG pO2 ABG Total CO2 ABG O2 Saturation Hemoglobin BUN BUN/Creatinine Ratio 25.70 H Glucose 294 H POC Glucose (mg/dL) 264 H 265 H Calcium Albumin/Globulin Ratio 1.58 L Urine Glucose (UA) Urine Ketones 03/20/25 03/20/25 03/20/25 12:29 17:15 19:11 WBC RBC Hgb Hct Immature Gran # Neutrophils # Lymphocytes # Monocytes # Eosinophils # ABG pO2 ABG Total CO2 ABG O2 Saturation Hemoglobin BUN BUN/Creatinine Ratio Glucose POC Glucose (mg/dL) 237 H 250 H 252 H Calcium Albumin/Globulin Ratio Urine Glucose (UA) Urine Ketones 03/21/25 03/21/25 03/21/25 01:00 02:47 02:47 WBC 17.93 H RBC Hgb 12.7 L Hct 39.0 L Immature Gran # Neutrophils # Lymphocytes # Monocytes # Eosinophils # ABG pO2 ABG Total CO2 ABG O2 Saturation Hemoglobin BUN 27.8 H BUN/Creatinine Ratio 27.80 H Glucose 243 H POC Glucose (mg/dL) 230 H Calcium Albumin/Globulin Ratio Urine Glucose (UA) Urine Ketones 03/21/25 03/21/25 03/21/25 06:11 11:25 16:41 WBC RBC Hgb Hct Immature Gran # Neutrophils # Lymphocytes # Monocytes # Eosinophils # ABG pO2 ABG Total CO2 ABG O2 Saturation Hemoglobin BUN BUN/Creatinine Ratio Glucose POC Glucose (mg/dL) 224 H 276 H 319 H Calcium Albumin/Globulin Ratio Urine Glucose (UA) Urine Ketones 03/21/25 03/22/25 03/22/25 20:38 04:55 04:55 WBC 12.93 H RBC 4.26 L Hgb 12.5 L Hct 37.6 L Immature Gran # 0.12 H Neutrophils # 9.99 H Lymphocytes # 0.87 L Monocytes # 1.93 H Eosinophils # 0 L ABG pO2 ABG Total CO2 ABG O2 Saturation Hemoglobin BUN BUN/Creatinine Ratio 25.56 H Glucose 274 H POC Glucose (mg/dL) 307 H Calcium 8.4 L Albumin/Globulin Ratio Urine Glucose (UA) Urine Ketones 03/22/25 03/22/25 03/22/25 05:57 10:46 11:41 WBC 14.02 H RBC 4.19 L Hgb 12.4 L Hct 36.4 L Immature Gran # 0.18 H Neutrophils # 10.46 H Lymphocytes # Monocytes # 2.30 H Eosinophils # 0.00 L ABG pO2 ABG Total CO2 ABG O2 Saturation Hemoglobin BUN BUN/Creatinine Ratio Glucose POC Glucose (mg/dL) 255 H 246 H Calcium Albumin/Globulin Ratio Urine Glucose (UA) Urine Ketones 03/22/25 03/22/25 13:42 16:16 WBC RBC Hgb Hct Immature Gran # Neutrophils # Lymphocytes # Monocytes # Eosinophils # ABG pO2 64 L ABG Total CO2 25 H ABG O2 Saturation 92.8 L Hemoglobin 12.6 L BUN BUN/Creatinine Ratio Glucose POC Glucose (mg/dL) 261 H Calcium Albumin/Globulin Ratio Urine Glucose (UA) Urine Ketones - Diagnostic Findings Chest x-ray: image reviewed CT scan - chest: image reviewed Assessment and Plan Plan: Acute hypoxic respiratory failure, multifactorial. The patient has developed postoperative atelectasis of the left lower lobe and the patient has significant elevation in volume loss in the left lung compared to the right. There is an area of consolidation left upper lobe. In addition, the patient has developed an abdominal ileus with secondary distention further compromising his respiratory status. CT of the chest is quite suspicious for a left lung pneumonia. No evidence of any pulmonary embolism or filling defect based on the CT angiogram. Patient is currently on Airvo at 60 L and FiO2 of 90%. Shortness of breath secondary to above Severe spinal canal stenosis at the level of C7/T1 with motor weakness in the lower extremities in addition to myelopathy. The patient is post C7/T1 discectomy with decompression and fusion Abdominal distention/ileus. Rule out bowel obstruction. No flatus at this point. Obstructive sleep apnea maintain CPAP therapy on outpatient basis Diabetes mellitus type 2, with steroid-induced hyperglycemia Hypotension, rule out septic versus neurogenic hypotension post spine surgery Sinus tachycardia Hyperlipidemia Seroma in the posterior soft tissues along the length of the skin jarad, spinal surgeries following Bilateral lower extremity weakness, ongoing motor weakness in the lower extremities bilaterally with absent motor function at this point with bilateral foot drop. Patient's sensations in the lower limbs have improved, but now patient is completely paraplegic. T8 paresthesias History of prior cervical fusion C3-C7 History of severe L5-S1 neuroforaminal stenosis Plan Transferred the patient to the ICU Keep the patient on Airvo 60 L with FiO2 of 90% Obtain a blood gas Obtain flat film of the abdomen May need NG decompression Start the patient on a combination of Zosyn and vancomycin Incentive spirometer Aggressive pulmonary toileting May benefit from overnight BiPAP Continue DuoNeb nebulizer treatments [id number] Pain control and muscle relaxants Continue normal saline rate of 75 cc an hour, pressors if needed Lantus insulin 15 units daily in addition to his sliding scale coverage, will modify the dose based on his blood sugar control Dilaudid for pain control in combination with [facility] as needed Flexeril Diazepam as needed Keep Samuels catheter in place Will continue to follow and make further recommendation based on his progress. Time with Patient: Greater than 30
[2025-03-22 18:02] LABS: Glucose,Whole Blood 266 mg/dL (70-110)
[2025-03-22 18:07] LABS: ABG HCO3 24 mmol/L (21-25); ABG PCO2 40 mmHg (35-45); ABG PH 7.40 (7.35-7.45); ABG PO2 60 mmHg (83-108); ABG TCO2 26 mmol/L (19-24); Allen Test Performed? Yes
[2025-03-22] MEDS: PIPERACILLIN-TAZOBACTAM 3.375 GM in SODIUM CHLORIDE 0.9% 100 ML IVPB SCH (18:08)
--- NOTE | 2025-03-22 18:11 | P.PN ---
Progress Note - Text Progress Note Date: 03/22/25 I was able to see the patient today at bedside. His is with him. He is in the process of being moved from the third floor down to the intensive care unit. I appreciate the critical care consultation. I was able to review the reports from the chest x-ray in the CT of his chest. The patient is actively being transferred down to the intensive care unit as I saw him. His collar is intact. Neurologically at his lower extremities there has not been a change. He had significant hypoxia earlier this afternoon and underwent further imaging and consultation with pulmonary critical care Assessment and plan Acute spinal cord injury at the level of C7-T1 with large disc herniation Status post decompression discectomy C7-T1 with extension of his prior fusion which was established from C2-7 and has now been extended down to T3 Paralysis bilateral lower extremities Acute hypoxic episode with significant loss of volume at the left lung The patient has a severe spinal cord injury which is still in development. He he has significant decreased motor function loss in his bilateral lower extremities. With the level of his spinal cord injury at C7-T1 he is potentially having significant weakness around his trunk and potentially along his diaphragm. He may be having paralysis along his diaphragm contributing to his respiratory issues. He has significant loss of volume at the left lung and some potential blockage issues as well. He also has a history of reactive airway. He is being acutely managed in critical care and intensive care unit and followed closely by pulmonary service appropriately We are continue to follow and manage in regards to his other neurologic loss. There was some bleeding on his dressing from his posterior cervical incision but this appears to be adequately controlled. I was able to review imaging of his cervical and thoracic spine done today which shows hardware in good alignment and position from C2 down to T3. I do not see any obvious breach of hardware. I was able to have a long conversation with the patient's . I tried to explain to her the gravity of his overall situation with his severe spinal cord injury, the profound weakness at his lower extremities, and the likelihood of permanent paralysis. I also tried to explain the gravity of the issues with his respiratory status as best I could. It is difficult to predict the patient's overall prognosis at this point as it remains critical and guarded. I tried to explain this to her as best I could and language that she could understand. I answered her questions best my ability. He will continue his critical care management and will continue to follow very closely.
[2025-03-22] MEDS: VANCOMYCIN 1,500 MG in SODIUM CHLORIDE 0.9% 500 ML 500 ML IVPB SCH (18:17)
--- NOTE | 2025-03-22 18:31 | XR ---
EXAMINATION TYPE: XR abdomen 1V DATE OF EXAM: 03/22/2025 COMPARISON: CT abdomen and pelvis 03/18/2025 HISTORY: Ileus TECHNIQUE: Single supine view the abdomen is obtained. FINDINGS: Small bowel demonstrates no evidence for dilatation or air fluid levels. Gaseous distention of the colon with the cecum measuring up to 13 cm in diameter. There is gas identi fied throughout the colon. Cholecystectomy clips in the right upper quadrant. No convincing evidence for pneumoperitoneum. No unusual calcifications. Contrast is demonstrated within the underdistended urinary bladder from earlier exam. The osseous structures are intact. IMPRESSION: Findings suggestive of a colonic ileus with gaseous distention of the colon most prominently within t he cecum. [facility], , 03/22/2025 6:29 PM
[2025-03-22 19:54] LABS: Glucose,Whole Blood 244 mg/dL (70-110)
[2025-03-22] MEDS: METOCLOPRAMIDE 5 MG/ML 2 ML VIAL IVP SCH (23:39)
[2025-03-23 04:13] LABS: Basophils # (A) 0.03 10*3/uL (0.00-0.10); Basophils % (A) 0.3 %; Eosinophils # (A) 0.00 10*3/uL (0.04-0.35); Eosinophils % (A) 0.0 %; HCT 33.5 % (39.6-50.0); HGB 11.3 g/dL (13.0-17.0); Lymphocytes # (A) 0.87 10*3/uL (0.90-5.00); Lymphocytes % (A) 7.5 %; MCH 29.4 pg (27.0-32.0); MCHC 33.7 g/dL (32.0-37.0); MCV 87.2 fL (80.0-97.0); Monocytes # (A) 1.05 10*3/uL (0.20-1.00); Monocytes % (A) 9.1 %; Neutrophils # (A) 9.50 10*3/uL (1.80-7.70); Neutrophils % (A) 82.1 %; Platelet Count 180 10*3/uL (140-440); RBC 3.84 10*6/uL (4.40-5.60); RDW 13.3 % (11.5-14.5); WBC 11.57 10*3/uL (4.50-10.00)
[2025-03-23 04:54] LABS: African American GFR (CKD) 88 (>60 ml/min/1.73 sqM); Anion Gap 8 mmol/L; Blood Urea Nitrogen 40 mg/dL (9-20); Calcium 8.5 mg/dL (8.4-10.2); Carbon Dioxide 24 mmol/L (22-30); Chloride 103 mmol/L (98-107); Glucose 275 mg/dL (74-99); Non-African American GFR(CKD) 76 (>60 ml/min/1.73 sqM); Potassium 4.4 mmol/L (3.5-5.1); Sodium 135 mmol/L (137-145)
--- NOTE | 2025-03-23 06:06 | P.PN ---
Progress Note - Text Progress Note Date: 03/23/25 Postoperative day #3 Patient is seen and examined today at bedside. He is in the intensive care unit on nonrebreather. They weaned down from 90% to 75% FiO2 and he seems to be tolerating adequately well laying flat. When they try to elevate him his saturation decreases somewhat. He is not complaining of pain. He is not reporting any new improvements in sensation in his lower trunk or legs. He is still not able to move his legs. He still feels that he can move his arms adequately. Pain is minimal being controlled with medication. He had a bowel movement overnight. He was incontinent of his bowels and did not know that he was having a bowel movement. The Samuels remains intact Physical Exam Afebrile Abdomen is soft nontender. Less distended . Nonrebreather mask intact at 75%. Chest has good excursion deep and space expiration The incision site is clean dry and intact. No erythema there is no purulence. He has no sensation around his umbilicus and down through his legs. He is flaccid his bilateral lower extremities Calves and thighs were soft nontender without evidence of DVT. Assessment/Plan Acute spinal cord injury with flaccid paralysis bilateral lower extremities postoperative day #3 status post open decompression and fusion C7-T1 due to large disc herniation C7-T1 with spinal cord injury Status post fusion with extension from prior fusion C2-C7 with new extension of fusion down to T3 Acute respiratory failure being managed with critical care currently on nonrebreather at 75% The patient is requiring high degree oxygen supplementation for his respiratory failure. This has slightly improved overnight as he was weaned down from 90%. He is still having significant reaction in his respiratory status and will need continued critical care. Further etiologies are being investigated. It is likely he has some issues with with his motor function along his diaphragm due to his spinal cord injury as well. They will determine his further. The surgical site appears to be stable. We will continue to increase the patient's mobilization with therapy. From a spine standpoint is okay for him to try to be up in a chair or to try to sit up with his collar intact. We will continue pain control as needed. His neurologic status seems to be establishing as complete paraplegia as he does not seem to be responding despite the surgery or high-dose steroid thus far. He continues to have flaccid paralysis of his lower extremities and his paresthesia seems near complete below T8. We'll continue to follow patient closely.
[2025-03-23 06:20] LABS: Glucose,Whole Blood 246 mg/dL (70-110)
--- NOTE | 2025-03-23 07:29 | XR ---
EXAMINATION TYPE: XR chest 1V portable DATE OF EXAM: 03/23/2025 5:53 AM COMPARISON: Chest radiographs from 03/22/2025. CLINICAL INDICATION: Male, 64 years old with history of increased O2 demand; TECHNIQUE: XR chest 1V portable Frontal view of the chest. FINDINGS: Lungs/Pleura: Low lung volumes are present. There is no evidence of focal consolidation, or pneumotho rax. Blunting of the costophrenic angles bilaterally left greater than right. Pulmonary vascularity: Unremarkable. Heart/mediastinum: Cardiomediastinal silhouette is unremarkable. Musculoskeletal: No acute osseous pathology. There is fixation hardware in the lower cervical spine. Other findings: None IMPRESSION: 1. Low lung volumes with a generalized hazy appearance which could represent atelectasis versus pulm onary edema. 2. layering pleural effusions may also be present. [facility], , 03/23/2025 7:27 AM
[2025-03-23 11:06] LABS: Glucose,Whole Blood 259 mg/dL (70-110)
--- NOTE | 2025-03-23 11:24 | P.PN ---
Subjective Progress Note Date: 03/22/25 Patient was seen for a follow-up. Patient apparently was transferred to ICU because difficulty breathing. Patient also has started spiking temperature 100.9. Patient's white cells are up 14.02, hemoglobin 12.4 platelets are normal. ABG with pH of 7.43, PCO2 is normal, PO264. Saturation 92.8%. Patient underwent CTA of the chest which revealed no evidence of pulmonary embolism. Markedly progressive left lung volume loss with mild atelectasis increasing suspicion for endobronchial obstruction/neoplasm and further evaluation may be indicated. Interval development of mild right lower lobe atelectasis. Chest x- ray showed low lung volumes with generalized hazy appearance which could re present atelectasis versus pulmonary edema layering pleural effusion may also be present. Patient continues to be paraplegic. No improvement noticed. Dose of steroids has been increased to methylprednisolone 100 mg IV every 6 hours. Patient also on Zosyn and vancomycin. Objective - Vital Signs Vital signs: Vital Signs Temp 100.9 F H 03/22/25 18:10 Pulse 107 H 03/22/25 18:30 Resp 23 03/22/25 18:30 BP 113/66 03/22/25 18:30 Pulse Ox 90 L 03/22/25 18:30 FiO2 90 03/22/25 18:10 Intake & Output 03/21/25 03/22/25 03/22/25 18:59 06:59 18:59 Intake Total 1860 803 Output Total 4150 560 Balance -2290 243 Intake: IV 685 Invasive Line 4 10 Piperacillin-Tazobactam 3 100 .375 gm In Sodium Chloride 0.9% 100 ml @ 25 mls/hr IVPB Q8HR [facility] Rx# :[id number] Sodium Chloride 0.9% 1, 75 000 ml @ 75 mls/hr IV . [id number] [facility] LU[facility] Rx#:[id number] Vancomycin 1,500 mg In 500 Sodium Chloride 0.9% 500 ml 500 ml @ 167 mls/hr IVPB Q12H [facility] Rx#: [id number] Oral 1860 118 Output: Urine 4150 560 Other: Voiding Method Indwelling Catheter Indwelling Catheter - Exam Mental status significant for at least mild or mild to moderate encephalopathy, speech and language functions, cranial nerves are normal. On muscle strength testing, the strength is normal in the arms except right interossei which is about 5-whereas normal on the left. Patient is completely paraplegic in the lower limbs, with no movement noticed at all. Patient has bilateral Babinski strongly positive Patient again has sensory level at T8 level. He has no sensation in the legs. - Labs CBC & Chem 7: 03/23/25 03:14 03/23/25 03:14 Labs: Abnormal Lab Results - Last 24 Hours (Table) 03/21/25 03/22/25 03/22/25 Range/Units 20:38 04:55 04:55 WBC 12.93 H (4.50-10.00) X 10*3/uL RBC 4.26 L (4.40-5.60) X 10*6/uL Hgb 12.5 L (13.0-17.0) g/dL Hct 37.6 L (39.6-50.0) % Immature Gran # 0.12 H (0.00-0.04) X 10*3/uL Neutrophils # 9.99 H (1.80-7.70) X 10*3/uL Lymphocytes # 0.87 L (0.90-5.00) X 10*3/uL Monocytes # 1.93 H (0.20-1.00) X 10*3/uL Eosinophils # 0 L (0.04-0.35) X 10*3/uL ABG pO2 (83-108) mmHg ABG Total CO2 (19-24) mmol/L ABG O2 Saturation (94-97) % Hemoglobin (13.0-17.5) gm/dL BUN/Creatinine Ratio 25.56 H (12.00-20.00) Ratio Glucose 274 H (70-110) mg/dL POC Glucose (mg/dL) 307 H (70-110) mg/dL Calcium 8.4 L (8.7-10.3) mg/dL 03/22/25 03/22/25 03/22/25 Range/Units 05:57 10:46 11:41 WBC 14.02 H (4.50-10.00) X 10*3/uL RBC 4.19 L (4.40-5.60) X 10*6/uL Hgb 12.4 L (13.0-17.0) g/dL Hct 36.4 L (39.6-50.0) % Immature Gran # 0.18 H (0.00-0.04) X 10*3/uL Neutrophils # 10.46 H (1.80-7.70) X 10*3/uL Lymphocytes # (0.90-5.00) X 10*3/uL Monocytes # 2.30 H (0.20-1.00) X 10*3/uL Eosinophils # 0.00 L (0.04-0.35) X 10*3/uL ABG pO2 (83-108) mmHg ABG Total CO2 (19-24) mmol/L ABG O2 Saturation (94-97) % Hemoglobin (13.0-17.5) gm/dL BUN/Creatinine Ratio (12.00-20.00) Ratio Glucose (70-110) mg/dL POC Glucose (mg/dL) 255 H 246 H (70-110) mg/dL Calcium (8.7-10.3) mg/dL 03/22/25 03/22/25 03/22/25 Range/Units 13:42 16:16 17:59 WBC (4.50-10.00) X 10*3/uL RBC (4.40-5.60) X 10*6/uL Hgb (13.0-17.0) g/dL Hct (39.6-50.0) % Immature Gran # (0.00-0.04) X 10*3/uL Neutrophils # (1.80-7.70) X 10*3/uL Lymphocytes # (0.90-5.00) X 10*3/uL Monocytes # (0.20-1.00) X 10*3/uL Eosinophils # (0.04-0.35) X 10*3/uL ABG pO2 64 L (83-108) mmHg ABG Total CO2 25 H (19-24) mmol/L ABG O2 Saturation 92.8 L (94-97) % Hemoglobin 12.6 L (13.0-17.5) gm/dL BUN/Creatinine Ratio (12.00-20.00) Ratio Glucose (70-110) mg/dL POC Glucose (mg/dL) 261 H 266 H (70-110) mg/dL Calcium (8.7-10.3) mg/dL 03/22/25 Range/Units 18:05 WBC (4.50-10.00) X 10*3/uL RBC (4.40-5.60) X 10*6/uL Hgb (13.0-17.0) g/dL Hct (39.6-50.0) % Immature Gran # (0.00-0.04) X 10*3/uL Neutrophils # (1.80-7.70) X 10*3/uL Lymphocytes # (0.90-5.00) X 10*3/uL Monocytes # (0.20-1.00) X 10*3/uL Eosinophils # (0.04-0.35) X 10*3/uL ABG pO2 60 L (83-108) mmHg ABG Total CO2 26 H (19-24) mmol/L ABG O2 Saturation 90.5 L (94-97) % Hemoglobin 12.1 L (13.0-17.5) gm/dL BUN/Creatinine Ratio (12.00-20.00) Ratio Glucose (70-110) mg/dL POC Glucose (mg/dL) (70-110) mg/dL Calcium (8.7-10.3) mg/dL Assessment and Plan Assessment: * Acute paraparesis, with left leg much weaker than the right. Patient has a sensory level at T8. MRI of the cervical spine revealed large disc herniation at C7-T1 producing severe spinal canal stenosis with probable myelomalacia. * Status post C7-T1 discectomy for decompression with wide laminectomy, fora minotomy and partial facetectomy 03/21/2025. Patient strength has got much worse postsurgery, now complete paraplegic. * Positive Lhermitte signs, due to above * Urinary retention, likely due to spinal stenosis. * History of cervical spinal fusion 2016 * Diabetes * Hyperlipidemia Plan: * Patient had undergone removal of hardware deep bone at C2, C3, C4, C5, C6, C7, posterior cervical decompression with laminectomy and partial facetectomy, wide foraminotomy brace with discectomy C7-T1 on 03/21/2025. Patient has subsequently developed complete paraplegia. Now patient has again sensory level at T8. Orthopedic surgery already on the case, and aware. * CT of the cervical spine without contrast 03/22/2025 revealed interval surgery with C7-T1 laminectomy at the site of cord compression seen on MRI. Posterior midline skin jarad as well as air and postoperative fluid/suspected seroma in the posterior soft tissues along the entire length of the skin jarad. Note that this area spans approximately 13 cm craniocaudal. Posterior fusion changes now extended down to T3 level (previously down to C7 level). The previous C4 C7 ACDF remains in place. Revision of the posterior fusion hardware on the right now to extend from C5 rather than C2. * CT of thoracic spine revealed C7-T1 laminectomy and posterior fusion extending down to the T3 level described above. No vertebral compression collapse or malalignment. * I would defer need for repeat MRI of the thoracic spine to orthopedic surgery. * Patient has developed spiking temperature, currently on vancomycin and Zosyn. * Suggest ID consultation. * MRI of the cervical spine 03/19/2025 reveals severe spinal canal stenosis secondary to disc osteophyte complex at the level of C7 and T1 possibly related to altered mechanics. There is mild cord edema. Neurosurgical consultation recommended. Postsurgical changes from C2-C7. Degeneration with moderate right C5-C6 and moderate left C6-C7 neural foraminal stenosis secondary to disc osteophyte complexes. I personally reviewed MRI, agree with the findings. * Orthopedic spine on board, and patient undergoing decompressive surgery later this evening. * MRI thoracic spine 03/20/2025 revealed no evidence of significant spinal canal stenosis. Mild degenerative changes. I personally reviewed MRI agree with the findings. * MRI of the lumbar spine 03/19/2025, revealed no definitive evidence of disc herniation or significant spinal canal stenosis. Minimal disc degeneration with associated osteoarthritic changes. I personally reviewed MRI, agree with the findings. * B12 685, folate 8.3. We will start folate replacement. * Patient on methylprednisolone 100 mg every 6 hours. * Other medical management as per IM, critical care and other specialties on board.
--- NOTE | 2025-03-23 14:59 | P.PN ---
Subjective Progress Note Date: 03/23/25 This is a 64-year-old male patient was undergone a C 7 T1 discectomy, done posteriorly with wide laminectomy and foraminotomy and partial facetectomy. The patient was experiencing cervical myelopathy with severe bilateral lower extremity weakness and T8 paresthesia. The patient has previous history of cervical spine fusion C2-C7. The patient was found to have a large herniated disc C7-T1 with severe spinal cord stenosis and based on that the patient was taken to the operating room and underwent a C7-T1 discectomy on 03/21/2025. The patient has become progressively more hypoxic. Currently he is on Airvo at 60 L and FiO2 of 90%. His current pulse ox is in order of 90 to 93%. Slightly tachycardic. Blood pressure is also soft at 89/62. Based on worsening hypoxemia, CT of the chest was done and the patient was found to have significant volume loss in the left lung compared to the right. There is marked volume loss and atelectasis in addition to an area of consolidation in the left upper lobe and elevation of the left hemidiaphragm in addition to significant gastric distention. The patient has dilated air in the stomach and colon. Blood work shows a white cell count of 14, hemoglobin 12.4 and a platelet count of 175. Sodium levels at 137, bicarb is at 23, potassium level is at 4.3 with a chloride of 102. BUN 23 with a creatinine of 0.9. The patient is resting comfortably in bed. He is wearing a hard neck collar. He is reporting some mild shortness of breath even at rest. He is tolerating the Airvo. He is currently on IV Solu-Medrol 100 mg every 6 hours post neck surgery. He is also on IV fluids with l normal saline at rate of 75 cc an hour. Comorbidities include hypertension, hyperlipidemia, diabetes mellitus type 2, obstructive sleep apnea maintained on CPAP therapy on outpatient basis On today's evaluation of 03/23/25, patient is still on the BiPAP pressure of 14 over 6 cm of water and FiO2 has been weaned down to 65%. The patient's abdomen seems to be less distended. He had 2 bowel movements and the patient is also passing flatus. Fluid balance +223 cc over the past 24 hours and the patient remains on normal saline at a rate of 75 cc an hour. Neurologically, unchanged and the patient has absent motor function lower extremities bilaterally. He is on broad-spectrum antibiotics and the patient is currently on Zosyn vancomycin combination. Follow-up chest x-ray shows some interval improvement in aeration in the left lung base. Lung volumes in the left remain small and there is some ongoing atelectatic change at left lower lobe. The patient's white cell count is 11, hemoglobin 11.3 and a platelet count of 180. Electrolytes are all within normal limits. BUN is 40 with a creatinine of 1.05. The patient is able to communicate. He is alert and awake. Denies having any specific complaints. Still wearing a hard neck collar. Objective - Vital Signs Vital signs: Vital Signs Temp 98.9 F 03/23/25 08:00 Pulse 78 03/23/25 08:00 Resp 22 03/23/25 08:00 BP 117/68 03/23/25 08:00 Pulse Ox 96 03/23/25 08:00 FiO2 65 03/23/25 08:43 Intake & Output 03/22/25 03/23/25 03/23/25 18:59 06:59 18:59 Intake Total 803 1000 575 Output Total 560 1020 40 Balance 243 -20 535 Weight 105.5 kg Intake: IV 685 1000 575 Invasive Line 4 10 Piperacillin-Tazobactam 3 100 100 .375 gm In Sodium Chloride 0.9% 100 ml @ 25 mls/hr IVPB Q8HR [facility] Rx# :[id number] Sodium Chloride 0.9% 1, 75 900 75 000 ml @ 75 mls/hr IV . [id number] [facility] Rx#:[id number] Vancomycin 1,500 mg In 500 500 Sodium Chloride 0.9% 500 ml 500 ml @ 167 mls/hr IVPB Q12H [facility] Rx#: [id number] Oral 118 Output: Urine 560 1020 40 Other: Voiding Method Indwelling Catheter Indwelling Catheter - Exam General: nontoxic, no distress, appears at stated age, patient is currently on BiPAP pressures of 14/6 with an FiO2 of 65%. The patient is wearing a hard neck collar. Derm: warm, dry, intact, dressing noted at the back of neck with no signs of drainage or bleeding. Head: atraumatic, normocephalic, symmetric Eyes: EOMI, anicteric sclera Mouth: no lip lesion, mucus membranes moist Cardiovascular: S1 S2 reg, no murmur, rubs, or gallops Lungs: Diminished breath on the left compared to the right. Nearly absent breat h on the left lung base Abdominal: soft, a bowel sounds are present in the patient's abdomen is obvious less tympanic compared to yesterday. Extremities: no gross muscle atrophy, no edema, no contractures, patient is unable to move bilateral lower extremity Neuro: Alert, Oriented, CNII-XII grossly intact, gait cannot be assessed as the patient has absent motor function lower extremities bilaterally patient has bilateral foot drop. Reflexes are diminished. No Babinski. No clonus. Psych: well appearing, appropriate affect - Labs CBC & Chem 7: 03/23/25 03:14 03/23/25 03:14 Labs: Abnormal Lab Results - Last 24 Hours (Table) 03/22/25 03/22/25 03/22/25 Range/Units 04:55 10:46 11:41 WBC 14.02 H (4.50-10.00) 10*3/uL RBC 4.19 L (4.40-5.60) 10*6/uL Hgb 12.4 L (13.0-17.0) g/dL Hct 36.4 L (39.6-50.0) % Immature Gran # 0.12 H 0.18 H (0.00-0.04) X 10*3/uL Neutrophils # 9.99 H 10.46 H (1.80-7.70) X 10*3/uL Lymphocytes # 0.87 L (0.90-5.00) X 10*3/uL Monocytes # 1.93 H 2.30 H (0.20-1.00) X 10*3/uL Eosinophils # 0 L 0.00 L (0.04-0.35) X 10*3/uL ABG pO2 (83-108) mmHg ABG Total CO2 (19-24) mmol/L ABG O2 Saturation (94-97) % Hemoglobin (13.0-17.5) gm/dL Sodium (137-145) mmol/L BUN (9-20) mg/dL Glucose (74-99) mg/dL POC Glucose (mg/dL) 246 H (70-110) mg/dL 03/22/25 03/22/25 03/22/25 Range/Units 13:42 16:16 17:59 WBC (4.50-10.00) 10*3/uL RBC (4.40-5.60) 10*6/uL Hgb (13.0-17.0) g/dL Hct (39.6-50.0) % Immature Gran # (0.00-0.04) X 10*3/uL Neutrophils # (1.80-7.70) X 10*3/uL Lymphocytes # (0.90-5.00) X 10*3/uL Monocytes # (0.20-1.00) X 10*3/uL Eosinophils # (0.04-0.35) X 10*3/uL ABG pO2 64 L (83-108) mmHg ABG Total CO2 25 H (19-24) mmol/L ABG O2 Saturation 92.8 L (94-97) % Hemoglobin 12.6 L (13.0-17.5) gm/dL Sodium (137-145) mmol/L BUN (9-20) mg/dL Glucose (74-99) mg/dL POC Glucose (mg/dL) 261 H 266 H (70-110) mg/dL 03/22/25 03/22/25 03/23/25 Range/Units 18:05 19:53 03:14 WBC (4.50-10.00) 10*3/uL RBC (4.40-5.60) 10*6/uL Hgb (13.0-17.0) g/dL Hct (39.6-50.0) % Immature Gran # (0.00-0.04) X 10*3/uL Neutrophils # (1.80-7.70) X 10*3/uL Lymphocytes # (0.90-5.00) X 10*3/uL Monocytes # (0.20-1.00) X 10*3/uL Eosinophils # (0.04-0.35) X 10*3/uL ABG pO2 60 L (83-108) mmHg ABG Total CO2 26 H (19-24) mmol/L ABG O2 Saturation 90.5 L (94-97) % Hemoglobin 12.1 L (13.0-17.5) gm/dL Sodium 135 L (137-145) mmol/L BUN 40 H (9-20) mg/dL Glucose 275 H (74-99) mg/dL POC Glucose (mg/dL) 244 H (70-110) mg/dL 03/23/25 03/23/25 Range/Units 03:14 06:19 WBC 11.57 H (4.50-10.00) 10*3/uL RBC 3.84 L (4.40-5.60) 10*6/uL Hgb 11.3 L (13.0-17.0) g/dL Hct 33.5 L (39.6-50.0) % Immature Gran # 0.12 H (0.00-0.04) X 10*3/uL Neutrophils # 9.50 H (1.80-7.70) X 10*3/uL Lymphocytes # 0.87 L (0.90-5.00) X 10*3/uL Monocytes # 1.05 H (0.20-1.00) X 10*3/uL Eosinophils # 0.00 L (0.04-0.35) X 10*3/uL ABG pO2 (83-108) mmHg ABG Total CO2 (19-24) mmol/L ABG O2 Saturation (94-97) % Hemoglobin (13.0-17.5) gm/dL Sodium (137-145) mmol/L BUN (9-20) mg/dL Glucose (74-99) mg/dL POC Glucose (mg/dL) 246 H (70-110) mg/dL Assessment and Plan Plan: Acute hypoxic respiratory failure, multifactorial. The patient has developed postoperative atelectasis of the left lower lobe and the patient has significant elevation in volume loss in the left lung compared to the right. There is an area of consolidation left upper lobe. In addition, the patient has developed an abdominal ileus with secondary distention further compromising his respiratory status. CT of the chest is quite suspicious for a left lung pneumonia. No evidence of any pulmonary embolism or filling defect based on the CT angiogram. Patient is currently on BiPAP. The patient was placed on BiPAP due to ongoing hypoxemia. The patient was started on broad-spectrum antibiotics with a combination of Zosyn and vancomycin. Follow-up chest x-ray shows some interval improvement in aeration left lung base. There are some ongoing atelectatic changes and consolidation in the left lower lobe. The patient is doing well. Awake and alert. No significant respiratory distress and the patient will be transition to Airvo Shortness of breath secondary to above, stable for now Severe spinal canal stenosis at the level of C7/T1 with motor weakness in the lower extremities in addition to myelopathy. The patient is post C7/T1 discectomy with decompression and fusion Abdominal distention/ileus. Rule out bowel obstruction. No flatus at this point. Obstructive sleep apnea maintain CPAP therapy on outpatient basis Diabetes mellitus type 2, with steroid-induced hyperglycemia Hypotension, rule out septic versus neurogenic hypotension post spine surgery Sinus tachycardia Hyperlipidemia Seroma in the posterior soft tissues along the length of the skin jarad, spinal surgeries following Bilateral lower extremity weakness, ongoing motor weakness in the lower extremities bilaterally with absent motor function at this point with bilateral foot drop. Patient's sensations in the lower limbs have improved, but now patient is completely paraplegic. T8 paresthesias History of prior cervical fusion C3-C7 History of severe L5-S1 neuroforaminal stenosis Plan Keep the patient on Airvo 60 L with FiO2 of 90%, may utilize the BiPAP overn ight. Patient is not having bowel movement and there is no need for NG tube decompression Continue Zosyn and vancomycin Incentive spirometer Aggressive pulmonary toileting Continue DuoNeb nebulizer treatments [id number] Pain control and muscle relaxants Continue normal saline rate of 75 cc an hour, pressors if needed Lantus insulin 15 units daily in addition to his sliding scale coverage, will modify the dose based on his blood sugar control Dilaudid for pain control in combination with [place] as needed Flexeril Diazepam as needed Keep Samuels catheter in place Will continue to follow and make further recommendation based on his progress. Will keep the patient in ICU. Evaluation was done at 33 minutes. Time with Patient: Greater than 30
[2025-03-23 16:57] LABS: Glucose,Whole Blood 320 mg/dL (70-110)
--- NOTE | 2025-03-23 17:04 | P.PN ---
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 Wheeler) approximately 2 months ago, migraine headaches, depression. Presented to the emergency department with a chief complaint of sudden onset numbness extending from periumbilical region downwards throughout groin and bilateral lower extremities followed by weakness of bilateral lower extremities. Patient states he was moving some plants at home when he had sudden onset of numbness around his lower abdomen circling around him like a belt that quickly radiated into his groin and into bilateral lower extremities accompanied by weakness of bilateral lower extremities which resulted in his legs giving out from beneath him causing him to fall to the ground. Patient denied having any dizziness or lightheadedness, headache, neck or back pain, or experiencing any pain in his abdomen, groin, or lower extremities. He denies hitting his head during the fall and denies having any loss of consciousness. But reports due to the sudden onset numbness and weakness he was unable to stand back up and had to have his call EMS for transfer to the hospital. Upon arrival to our facility, patient underwent evaluation in the emergency department. Vital signs upon arrival show blood pressure 165/97, heart rate 88, respiratory rate 18, temp 98.8 F, and SpO2 of 97% on room air. CT lumbar spine CT abdomen and pelvis was also negative for acute intra-abdominal process completed showing no evidence for spinal fracture, no evidence for significant spinal canal stenosis revealing severe right L5-S1 neuroforaminal stenosis and moderate bilateral L4-L5 neuroforaminal stenosis, revealing a right middle lobe pulmonary nodule 8 mm, prostamegaly, colonic diverticulosis, and bilateral adrenal myolipoma's. Labs completed and reviewed. CBC unremarkable. BMP showing hyperglycemia with blood glucose of 146. Liver profile normal findings. Urinalysis positive for glucose and ketones but negative for infection. Patient was admitted under services with consultation to neurology and orthospine surgery. MRI lumbar spine was completed showing no definitive evidence of disc herniation or significant spinal canal stenosis revealing minimal disc degeneration with associated osteoarthritic changes. Patient underwent extensive cervical spinal surgery on the evening of 03/20/2025 through 03/21/2025. Subjective: Patient was seen and examined at bedside in the ICU. No acute events overnight. Patient reports shortness of breath about the same compared to yesterday. Patient is unable to move his bilateral lower extremity and reports bilateral lower extremity numbness. Denies chest pain, fever, chills, nausea or vomiting, belly pain, diarrhea or constipation. Pertinent positives and negatives as discussed above, a complete review of systems was performed and all other systems are negative. Vitals: Signs Reviewed Physical Exam: General: nontoxic, no distress, appears at stated age Derm: warm, dry, intact, dressing noted at the back of neck with no signs of drainage or bleeding. Head: atraumatic, normocephalic, symmetric Eyes: EOMI, anicteric sclera Mouth: no lip lesion, mucus membranes moist Cardiovascular: S1 S2 reg, no murmur, rubs, or gallops Lungs: CTA bilateral, no rhonchi, no rales, no accessory muscle use Abdominal: soft, non-tender to palpataion, no appreciable organomegaly Extremities: no gross muscle atrophy, no edema, no contractures, patient is unable to move bilateral lower extremity Neuro: Alert, Oriented, CNII-XII grossly intact, gait normal Psych: well appearing, appropriate affect Data Received Today: Pertinent Labs: WBC 11.57, hemoglobin 11.3, hematocrit 33.5, platelet 180, sodium 135, potassium 4.4, BUN 40, creatinine 1.05, glucose 259-275 Imaging: Chest x-ray on 03/23/2025 showed low lung volumes with generalized hazy appearance which could represent atelectasis versus pulmonary edema layering pleural effusions may also be present. Chest CTA showed no evidence of pulmonary embolism. Markedly progressive left lung volume loss with marked atelectasis increasing suspicion for endobronchial obstruction/neoplasm and further evaluation may be indicated. Interval development of mild right lower lobe atelectasis. Assessment and Plan: Suspected hematoma in the posterior soft tissues along the length of the skin jarad Acute spinal cord injury resulting in severe spinal canal stenosis involving C7- T1 Status post extensive cervical decompression with discectomy at C7-T1 and fusion with extension of fusion from C3-C7 with new extension down to T3 Acute onset of bilateral lower extremity numbness and weakness Abdominal and periumbilical/suprapubic and groin numbness Severe right L5-S1 neuroforaminal stenosis Moderate bilateral L4-L5 neuroforaminal stenosis - Orthopedic surgery following status post extensive cervical decompression with dissecting at C7-T1 and fusion with extension of fusion from C3-C7 with new extension down to T3 -Continue inpatient rehab -Continue to hold aspirin and blood pressure medicine due to suspected hematoma - Continue neurochecks every 4 hours and as needed. - Continue IV steroids with Solu-Medrol 100 mg IVP every 6 hours. - Maintain fall precautions - Continue Samuels catheter management - Continue Unna boot bilaterally to prevent foot drop - PT/OT following Dyspnea CT angio of chest shows markedly progressive left lung volume loss with marked atelectasis increasing suspicion for endobronchial obstruction/neoplasm and further evaluation may be indicated. Interval development of mild right lower lobe atelectasis. Continue DuoNebs 4 times daily and every 2 hours as needed Leukocytosis -Reactive secondary to severe spinal canal stenosis and high-dose steroids being administered at this time. No signs of infection. Continue to monitor with morning labs Type II jtd-rcsdxis-draehmkhk diabetes mellitus with hyperglycemia -Hyperglycemia likely secondary to high-dose steroids being administered at this time. Will continue glycemic protocol with Humalog sliding scale. Currently blood glucose 275 -Continue Lantus 15 units subcu daily as basal insulin Hypotension - Hold blood pressure medicine Hyperlipidemia - Continue daily medication regimen with atorvastatin 40 mg nightly Obstructive sleep apnea - Continue CPAP nightly and while napping. CODE STATUS: Full code DVT prophylaxis: Hold Lovenox in the setting of suspected hematoma Discussed with: Patient and orthospine surgeon Anticipated discharge date: Pending clinical course Anticipated discharge place: Pending clinical course I saw and evaluated the patient during the morgan and critical portions of this encounter, and discussed the case in detail with the resident author of this note, I agree with the Assessment and Plan, and my changes, if any, are highlighted in blue. Objective - Vital Signs Vital signs: Vital Signs Temp 98.2 F 03/23/25 04:00 Pulse 87 03/23/25 06:00 Resp 17 03/23/25 06:00 BP 118/73 03/23/25 06:00 Pulse Ox 91 L 03/23/25 06:00 FiO2 75 03/23/25 04:00 Intake & Output 03/22/25 03/22/25 03/23/25 06:59 18:59 06:59 Intake Total 7155 180 1653 Output Total 4150 560 1020 Balance -2290 243 -20 Weight 105.5 kg Intake: IV 685 1000 Invasive Line 4 10 Piperacillin-Tazobactam 3 100 100 .375 gm In Sodium Chloride 0.9% 100 ml @ 25 mls/hr IVPB Q8HR [facility] Rx# :[id number] Sodium Chloride 0.9% 1, 75 900 000 ml @ 75 mls/hr IV . [id number] [facility] Rx#:[id number] Vancomycin 1,500 mg In 500 Sodium Chloride 0.9% 500 ml 500 ml @ 167 mls/hr IVPB Q12H [facility] Rx#: [id number] Oral 1860 118 Output: Urine 4150 560 1020 Other: Voiding Method Indwelling Catheter Indwelling Catheter Indwelling Catheter - Labs CBC & Chem 7: 03/23/25 03:14 03/23/25 03:14 Labs: Abnormal Lab Results - Last 24 Hours (Table) 03/22/25 03/22/25 03/22/25 Range/Units 04:55 04:55 10:46 WBC 12.93 H 14.02 H (4.50-10.00) X 10*3/uL RBC 4.26 L 4.19 L (4.40-5.60) X 10*6/uL Hgb 12.5 L 12.4 L (13.0-17.0) g/dL Hct 37.6 L 36.4 L (39.6-50.0) % Immature Gran # 0.12 H 0.18 H (0.00-0.04) X 10*3/uL Neutrophils # 9.99 H 10.46 H (1.80-7.70) X 10*3/uL Lymphocytes # 0.87 L (0.90-5.00) X 10*3/uL Monocytes # 1.93 H 2.30 H (0.20-1.00) X 10*3/uL Eosinophils # 0 L 0.00 L (0.04-0.35) X 10*3/uL ABG pO2 (83-108) mmHg ABG Total CO2 (19-24) mmol/L ABG O2 Saturation (94-97) % Hemoglobin (13.0-17.5) gm/dL Sodium (137-145) mmol/L BUN (9-20) mg/dL BUN/Creatinine Ratio 25.56 H (12.00-20.00) Ratio Glucose 274 H (70-110) mg/dL POC Glucose (mg/dL) (70-110) mg/dL Calcium 8.4 L (8.7-10.3) mg/dL 03/22/25 03/22/25 03/22/25 Range/Units 11:41 13:42 16:16 WBC (4.50-10.00) X 10*3/uL RBC (4.40-5.60) X 10*6/uL Hgb (13.0-17.0) g/dL Hct (39.6-50.0) % Immature Gran # (0.00-0.04) X 10*3/uL Neutrophils # (1.80-7.70) X 10*3/uL Lymphocytes # (0.90-5.00) X 10*3/uL Monocytes # (0.20-1.00) X 10*3/uL Eosinophils # (0.04-0.35) X 10*3/uL ABG pO2 64 L (83-108) mmHg ABG Total CO2 25 H (19-24) mmol/L ABG O2 Saturation 92.8 L (94-97) % Hemoglobin 12.6 L (13.0-17.5) gm/dL Sodium (137-145) mmol/L BUN (9-20) mg/dL BUN/Creatinine Ratio (12.00-20.00) Ratio Glucose (70-110) mg/dL POC Glucose (mg/dL) 246 H 261 H (70-110) mg/dL Calcium (8.7-10.3) mg/dL 03/22/25 03/22/25 03/22/25 Range/Units 17:59 18:05 19:53 WBC (4.50-10.00) X 10*3/uL RBC (4.40-5.60) X 10*6/uL Hgb (13.0-17.0) g/dL Hct (39.6-50.0) % Immature Gran # (0.00-0.04) X 10*3/uL Neutrophils # (1.80-7.70) X 10*3/uL Lymphocytes # (0.90-5.00) X 10*3/uL Monocytes # (0.20-1.00) X 10*3/uL Eosinophils # (0.04-0.35) X 10*3/uL ABG pO2 60 L (83-108) mmHg ABG Total CO2 26 H (19-24) mmol/L ABG O2 Saturation 90.5 L (94-97) % Hemoglobin 12.1 L (13.0-17.5) gm/dL Sodium (137-145) mmol/L BUN (9-20) mg/dL BUN/Creatinine Ratio (12.00-20.00) Ratio Glucose (70-110) mg/dL POC Glucose (mg/dL) 266 H 244 H (70-110) mg/dL Calcium (8.7-10.3) mg/dL 03/23/25 03/23/25 03/23/25 Range/Units 03:14 03:14 06:19 WBC 11.57 H (4.50-10.00) X 10*3/uL RBC 3.84 L (4.40-5.60) X 10*6/uL Hgb 11.3 L (13.0-17.0) g/dL Hct 33.5 L (39.6-50.0) % Immature Gran # 0.12 H (0.00-0.04) X 10*3/uL Neutrophils # 9.50 H (1.80-7.70) X 10*3/uL Lymphocytes # 0.87 L (0.90-5.00) X 10*3/uL Monocytes # 1.05 H (0.20-1.00) X 10*3/uL Eosinophils # 0.00 L (0.04-0.35) X 10*3/uL ABG pO2 (83-108) mmHg ABG Total CO2 (19-24) mmol/L ABG O2 Saturation (94-97) % Hemoglobin (13.0-17.5) gm/dL Sodium 135 L (137-145) mmol/L BUN 40 H (9-20) mg/dL BUN/Creatinine Ratio (12.00-20.00) Ratio Glucose 275 H (70-110) mg/dL POC Glucose (mg/dL) 246 H (70-110) mg/dL Calcium (8.7-10.3) mg/dL
[2025-03-23 19:55] LABS: Glucose,Whole Blood 372 mg/dL (70-110)
--- NOTE | 2025-03-24 00:18 | P.PN ---
Subjective Progress Note Date: 03/23/25 03/23/2025: Patient was seen for a follow-up. Patient is sitting in the recliner. His breathing has improved. He still has Airvo on. Continues to be completely paraplegic. 03/22/2025: Patient was seen for a follow-up. Patient apparently was transferred to ICU because difficulty breathing. Patient also has started spiking temperature 100.9. Patient's white cells are up 14.02, hemoglobin 12.4 platelets are normal. ABG with pH of 7.43, PCO2 is normal, PO264. Saturation 9 2.8%. Patient underwent CTA of the chest which revealed no evidence of pulmonary embolism. Markedly progressive left lung volume loss with mild atelectasis increasing suspicion for endobronchial obstruction/neoplasm and further evaluation may be indicated. Interval development of mild right lower lobe atelectasis. Chest x-ray showed low lung volumes with generalized hazy appearance which could represent atelectasis versus pulmonary edema layering pleural effusion may also be present. Patient continues to be paraplegic. No improvement noticed. Dose of steroids has been increased to methylprednisolone 100 mg IV every 6 hours. Patient also on Zosyn and vancomycin. Objective - Vital Signs Vital signs: Vital Signs Temp 97.2 F L 03/23/25 12:00 Pulse 96 03/23/25 14:30 Resp 21 03/23/25 14:30 BP 128/69 03/23/25 13:00 Pulse Ox 97 03/23/25 14:30 FiO2 90 03/23/25 12:35 Intake & Output 03/22/25 03/23/25 03/23/25 18:59 06:59 18:59 Intake Total 803 1000 1740 Output Total 560 1020 1320 Balance 243 -20 420 Weight 105.5 kg 105.5 kg Intake: IV 685 1000 1200 Invasive Line 4 10 Piperacillin-Tazobactam 3 100 100 100 .375 gm In Sodium Chloride 0.9% 100 ml @ 25 mls/hr IVPB Q8HR [facility] Rx# :[id number] Sodium Chloride 0.9% 1, 75 900 600 000 ml @ 75 mls/hr IV . [id number] [facility] Rx#:[id number] Vancomycin 1,500 mg In 500 500 Sodium Chloride 0.9% 500 ml 500 ml @ 167 mls/hr IVPB Q12H [facility] Rx#: [id number] Oral 118 540 Output: Urine 560 1020 1320 Other: Voiding Method Indwelling Catheter Indwelling Catheter Indwelling Catheter - Exam Mental status, speech and language functions are normal. Cranial nerves normal. On muscle strength testing, the strength is normal in the arms except right interossei which is about 5-whereas normal on the left. Patient is completely paraplegic in the lower limbs, with no movement noticed at all. Patient has bilateral Babinski strongly positive Patient again has sensory level at T8 level. He has no sensation in the legs. - Labs CBC & Chem 7: 03/23/25 03:14 03/23/25 03:14 Labs: Abnormal Lab Results - Last 24 Hours (Table) 03/22/25 03/22/25 03/22/25 Range/Units 16:16 17:59 18:05 WBC (4.50-10.00) 10*3/uL RBC (4.40-5.60) 10*6/uL Hgb (13.0-17.0) g/dL Hct (39.6-50.0) % Immature Gran # (0.00-0.04) 10*3/uL Neutrophils # (1.80-7.70) 10*3/uL Lymphocytes # (0.90-5.00) 10*3/uL Monocytes # (0.20-1.00) 10*3/uL Eosinophils # (0.04-0.35) 10*3/uL ABG pO2 60 L (83-108) mmHg ABG Total CO2 26 H (19-24) mmol/L ABG O2 Saturation 90.5 L (94-97) % Hemoglobin 12.1 L (13.0-17.5) gm/dL Sodium (137-145) mmol/L BUN (9-20) mg/dL Glucose (74-99) mg/dL POC Glucose (mg/dL) 261 H 266 H (70-110) mg/dL 03/22/25 03/23/25 03/23/25 Range/Units 19:53 03:14 03:14 WBC 11.57 H (4.50-10.00) 10*3/uL RBC 3.84 L (4.40-5.60) 10*6/uL Hgb 11.3 L (13.0-17.0) g/dL Hct 33.5 L (39.6-50.0) % Immature Gran # 0.12 H (0.00-0.04) 10*3/uL Neutrophils # 9.50 H (1.80-7.70) 10*3/uL Lymphocytes # 0.87 L (0.90-5.00) 10*3/uL Monocytes # 1.05 H (0.20-1.00) 10*3/uL Eosinophils # 0.00 L (0.04-0.35) 10*3/uL ABG pO2 (83-108) mmHg ABG Total CO2 (19-24) mmol/L ABG O2 Saturation (94-97) % Hemoglobin (13.0-17.5) gm/dL Sodium 135 L (137-145) mmol/L BUN 40 H (9-20) mg/dL Glucose 275 H (74-99) mg/dL POC Glucose (mg/dL) 244 H (70-110) mg/dL 03/23/25 03/23/25 Range/Units 06:19 11:03 WBC (4.50-10.00) 10*3/uL RBC (4.40-5.60) 10*6/uL Hgb (13.0-17.0) g/dL Hct (39.6-50.0) % Immature Gran # (0.00-0.04) 10*3/uL Neutrophils # (1.80-7.70) 10*3/uL Lymphocytes # (0.90-5.00) 10*3/uL Monocytes # (0.20-1.00) 10*3/uL Eosinophils # (0.04-0.35) 10*3/uL ABG pO2 (83-108) mmHg ABG Total CO2 (19-24) mmol/L ABG O2 Saturation (94-97) % Hemoglobin (13.0-17.5) gm/dL Sodium (137-145) mmol/L BUN (9-20) mg/dL Glucose (74-99) mg/dL POC Glucose (mg/dL) 246 H 259 H (70-110) mg/dL Assessment and Plan Assessment: * Acute paraparesis, with left leg much weaker than the right. Patient has a sensory level at T8. MRI of the cervical spine revealed large disc herniation at C7-T1 producing severe spinal canal stenosis with probable myelomalacia. * Status post C7-T1 discectomy for decompression with wide laminectomy, foraminotomy and partial facetectomy 03/21/2025. Patient strength has got much worse postsurgery, now complete paraplegic. * Seroma in the posterior soft tissues along the length of the skin jarad, spinal surgeries following * Acute hypoxic respiratory failure, possible pneumonia. Postoperative atelectasis. * Abdominal distention/ileus. * Urinary retention, likely due to spinal stenosis. * History of cervical spinal fusion C3-C7 in 2017 * Diabetes * Hyperlipidemia * Obstructive sleep apnea Plan: * Patient had undergone removal of hardware deep bone at C2, C3, C4, C5, C6, C7, posterior cervical decompression with laminectomy and partial facetectomy, wide foraminotomy brace with discectomy C7-T1 on 03/21/2025. Patient has subsequently developed complete paraplegia. Now patient has again sensory level at T8. Orthopedic surgery already on the case, and aware. * CT of the cervical spine without contrast 03/22/2025 revealed interval surgery with C7-T1 laminectomy at the site of cord compression seen on MRI. Posterior midline skin jarad as well as air and postoperative fluid/suspected seroma in the posterior soft tissues along the entire length of the skin jarad. Note that this area spans approximately 13 cm craniocaudal. Posterior fusion changes now extended down to T3 level (previously down to C7 level). The previous C4 C7 ACDF remains in place. Revision of the posterior fusion hardware on the right now to extend from C5 rather than C2. * CT of thoracic spine revealed C7-T1 laminectomy and posterior fusion extending down to the T3 level described above. No vertebral compression collapse or malalignment. * I would defer need for repeat MRI of the cervical spine to orthopedic surgery. * Patient's Tmax is 100.3 at 4 PM today. Currently on vancomycin and Zosyn. * Suggest ID consultation. * MRI of the cervical spine 03/19/2025 reveals severe spinal canal stenosis secondary to disc osteophyte complex at the level of C7 and T1 possibly related to altered mechanics. There is mild cord edema. Neurosurgical consultation recommended. Postsurgical changes from C2-C7. Degeneration with moderate right C5-C6 and moderate left C6-C7 neural foraminal stenosis secondary to disc osteophyte complexes. I personally reviewed MRI, agree with the findings. * Orthopedic spine on board, and patient undergoing decompressive surgery later this evening. * MRI thoracic spine 03/20/2025 revealed no evidence of significant spinal canal stenosis. Mild degenerative changes. I personally reviewed MRI agree with the findings. * MRI of the lumbar spine 03/19/2025, revealed no definitive evidence of disc herniation or significant spinal canal stenosis. Minimal disc degeneration with associated osteoarthritic changes. I personally reviewed MRI, agree with the findings. * B12 685, folate 8.3. We will start folate replacement. * Patient on methylprednisolone 100 mg every 6 hours. * Other medical management as per IM, critical care and other specialties on board. * DVT prophylaxis: Patient on SCDs. Suggest adding heparin subcu if no surgical contraindications, as patient is high risk. Discussed with the nursing staff, who will discuss with the critical care. * Dr. Sebastien Casey to resume neurology service from morning.
[2025-03-24 05:30] LABS: HCT 32.3 % (39.6-50.0); HGB 11.3 g/dL (13.0-17.0); MCH 30.3 pg (27.0-32.0); MCHC 35.0 g/dL (32.0-37.0); MCV 86.6 fL (80.0-97.0); Platelet Count 201 10*3/uL (140-440); RBC 3.73 10*6/uL (4.40-5.60); RDW 13.2 % (11.5-14.5); WBC 11.91 10*3/uL (4.50-10.00)
[2025-03-24 05:57] LABS: African American GFR (CKD) >90 (>60 ml/min/1.73 sqM); Anion Gap 5 mmol/L; Blood Urea Nitrogen 34 mg/dL (9-20); Calcium 8.3 mg/dL (8.4-10.2); Carbon Dioxide 25 mmol/L (22-30); Chloride 106 mmol/L (98-107); Glucose 261 mg/dL (74-99); Non-African American GFR(CKD) >90 (>60 ml/min/1.73 sqM); Potassium 4.2 mmol/L (3.5-5.1); Sodium 136 mmol/L (137-145)
[2025-03-24 06:26] LABS: Glucose,Whole Blood 282 mg/dL (70-110)
--- NOTE | 2025-03-24 07:26 | XR ---
EXAMINATION TYPE: XR chest 1V portable DATE OF EXAM: 03/24/2025 COMPARISON: 03/23/2025 CLINICAL INDICATION: Male, 64 years old with history of hypoxia; TECHNIQUE: Single frontal view of the chest is obtained. FINDINGS: There is no change in the retrocardiac opacity likely a combination of pleural effusion and left lowe r lobe pneumonia or atelectasis. The right lung essentially clear. There is no pneumothorax. There are postsurgical changes of cervical fusion The osseous structures are intact. IMPRESSION: No significant interval change in the acute cardiopulmonary process involving the left lung base. [facility], , 03/24/2025 7:24 AM
[2025-03-24] MEDS: INSULIN GLARGINE (LANTUS) 100 UNIT/ML SYR SQ STA (09:34)
[2025-03-24 11:14] LABS: Glucose,Whole Blood 337 mg/dL (70-110)
--- NOTE | 2025-03-24 11:47 | P.PN ---
Subjective Progress Note Date: 03/24/25 Principal diagnosis: Acute spinal cord injury with flaccid paralysis bilateral lower extremities, Postoperative day #4 status post open decompression and fusion C7-T1 due to large disc herniation C7-T1 with spinal cord injury, and status post fusion with extension from prior fusion C2-C7 with new extension of fusion down to T3 Progress Note Date: 03/24/25 Postoperative day #4 Patient is seen and examined today at bedside. He has no new complaints today. He is not complaining of pain. He is not reporting any new improvements in sensation in his lower trunk or legs. He is still not able to move his legs. He still feels that he can move his arms adequately. He had a bowel movement overnight. He was incontinent of his bowels and did not know that he was having a bowel movement. The Samuels remains intact Objective - Vital Signs Vital signs: Vital Signs Temp 98.4 F 03/24/25 08:00 Pulse 122 H 03/24/25 10:00 Resp 18 03/24/25 10:00 BP 145/81 03/24/25 10:00 Pulse Ox 94 L 03/24/25 10:00 FiO2 85 03/24/25 09:00 Intake & Output 03/23/25 03/24/25 03/24/25 18:59 06:59 18:59 Intake Total 2715 1500 445 Output Total 1870 1230 300 Balance 845 270 145 Weight 105.5 kg 103.3 kg Intake: IV 2175 1500 225 Piperacillin-Tazobactam 3 200 100 .375 gm In Sodium Chloride 0.9% 100 ml @ 25 mls/hr IVPB Q8HR [facility] Rx# :[id number] Sodium Chloride 0.9% 1, 975 900 225 000 ml @ 75 mls/hr IV . [id number] [facility] Rx#:[id number] Vancomycin 1,500 mg In 1000 500 Sodium Chloride 0.9% 500 ml 500 ml @ 167 mls/hr IVPB Q12H [facility] Rx#: [id number] Intake, IV Titration 100 Amount Piperacillin-Tazobactam 3 100 .375 gm In Sodium Chloride 0.9% 100 ml @ 25 mls/hr IVPB Q8HR [facility] Rx# :[id number] Oral 540 120 Output: Urine 1870 1230 300 Other: Voiding Method Indwelling Catheter Indwelling Catheter Indwelling Catheter # Bowel Movements 1 - Exam Physical Exam Afebrile Abdomen is soft nontender. Less distended . Chest has good excursion deep and space expiration The incision site is clean dry and intact. No erythema. no active bleeding or drainage. He has no sensation below umbilicus and down through his legs. He is flaccid his bilateral lower extremities Calves and thighs were soft nontender without evidence of DVT. - Constitutional General appearance: Present: no acute distress - Labs CBC & Chem 7: 03/24/25 04:53 03/24/25 04:53 Labs: Abnormal Lab Results - Last 24 Hours (Table) 03/23/25 03/23/25 03/24/25 Range/Units 16:56 19:52 04:53 WBC (4.50-10.00) 10*3/uL RBC (4.40-5.60) 10*6/uL Hgb (13.0-17.0) g/dL Hct (39.6-50.0) % Sodium 136 L (137-145) mmol/L BUN 34 H (9-20) mg/dL Glucose 261 H (74-99) mg/dL POC Glucose (mg/dL) 320 H 372 H (70-110) mg/dL Calcium 8.3 L (8.4-10.2) mg/dL 03/24/25 03/24/25 03/24/25 Range/Units 04:53 06:23 11:13 WBC 11.91 H (4.50-10.00) 10*3/uL RBC 3.73 L (4.40-5.60) 10*6/uL Hgb 11.3 L (13.0-17.0) g/dL Hct 32.3 L (39.6-50.0) % Sodium (137-145) mmol/L BUN (9-20) mg/dL Glucose (74-99) mg/dL POC Glucose (mg/dL) 282 H 337 H (70-110) mg/dL Calcium (8.4-10.2) mg/dL Microbiology - Last 24 Hours (Table) 03/22/25 18:13 Nasal Screen MRSA/MSSA - Final Nasal Swab Staphylococcus aureus,Not MRSA Assessment and Plan (1) Cervical myelopathy Narrative/Plan: The patient appears to be stabilized with oxygen supplementation for his respiratory failure as he is sitting up in chair and conversing okay. The surgical site appears to be stable. Continue to increase the patient's mobilization with therapy. We will continue pain control as needed. His neurologic status seems to be establishing as complete paraplegia as he does not seem to be responding despite the surgery or high-dose steroid thus far. He continues to have flaccid paralysis of his lower extremities and his paresthesia seems near complete below T8. We'll continue to follow patient closely. Current Visit: Yes Status: Acute Priority: High Code(s): G95.9 - DISEASE OF SPINAL CORD, UNSPECIFIED SNOMED Code(s): 002158566 Time with Patient: Less than 30
[2025-03-24] MEDS: INSULIN LISPRO (HumaLOG) 100 UNIT/ML 10 mL VL SQ SCH (12:51)
--- NOTE | 2025-03-24 13:47 | P.PN ---
Subjective Progress Note Date: 03/24/25 This is a 64-year-old male patient was undergone a C 7 T1 discectomy, done posteriorly with wide laminectomy and foraminotomy and partial facetectomy. The patient was experiencing cervical myelopathy with severe bilateral lower extremity weakness and T8 paresthesia. The patient has previous history of cervical spine fusion C2-C7. The patient was found to have a large herniated disc C7-T1 with severe spinal cord stenosis and based on that the patient was taken to the operating room and underwent a C7-T1 discectomy on 03/21/2025. The patient has become progressively more hypoxic. Currently he is on Airvo at 60 L and FiO2 of 90%. His current pulse ox is in order of 90 to 93%. Slightly tachycardic. Blood pressure is also soft at 89/62. Based on worsening hypoxemia, CT of the chest was done and the patient was found to have significant volume loss in the left lung compared to the right. There is marked volume loss and atelectasis in addition to an area of consolidation in the left upper lobe and elevation of the left hemidiaphragm in addition to significant gastric distention. The patient has dilated air in the stomach and colon. Blood work shows a white cell count of 14, hemoglobin 12.4 and a platelet count of 175. Sodium levels at 137, bicarb is at 23, potassium level is at 4.3 with a chloride of 102. BUN 23 with a creatinine of 0.9. The patient is resting comfortably in bed. He is wearing a hard neck collar. He is reporting some mild shortness of breath even at rest. He is tolerating the Airvo. He is currently on IV Solu-Medrol 100 mg every 6 hours post neck surgery. He is also on IV fluids with l normal saline at rate of 75 cc an hour. Comorbidities include hypertension, hyperlipidemia, diabetes mellitus type 2, obstructive sleep apnea maintained on CPAP therapy on outpatient basis On today's evaluation of 03/23/25, patient is still on the BiPAP pressure of 14 over 6 cm of water and FiO2 has been weaned down to 65%. The patient's abdomen seems to be less distended. He had 2 bowel movements and the patient is also passing flatus. Fluid balance +223 cc over the past 24 hours and the patient remains on normal saline at a rate of 75 cc an hour. Neurologically, unchanged and the patient has absent motor function lower extremities bilaterally. He is on broad-spectrum antibiotics and the patient is currently on Zosyn vancomycin combination. Follow-up chest x-ray shows some interval improvement in aeration in the left lung base. Lung volumes in the left remain small and there is some ongoing atelectatic change at left lower lobe. The patient's white cell count is 11, hemoglobin 11.3 and a platelet count of 180. Electrolytes are all within normal limits. BUN is 40 with a creatinine of 1.05. The patient is able to communicate. He is alert and awake. Denies having any specific complaints. Still wearing a hard neck collar. 03/24/2025, the patient is laying flat in bed and is currently on a BiPAP at a pressure of 14/6 with an FiO2 of 75% overnight and Airvo during the day. He remains on normal saline at rate of 75 cc an hour. Chest x-ray still showing left lower lobe consolidation. Abdomen is soft. He had 3 bowel movements. He is on Lantus insulin. The patient's mentation is awake and alert. Nevertheless, he continues to have profound weakness in the lower extremity and he remains paraplegic. Remains on IV Solu-Medrol. Blood sugars are elevated and he remains on Lantus 15 units daily and NovoLog sliding scale coverage. The white cell count 11.9, hemoglobin 11.3 and a platelet count of 201. BUN 34 with a creatinine of 0.8. Sodium levels at 136. Blood sugars up to 82. He is postop day #4 following an open decompression and fusion of C7-T1 surgery was done due to a large disc herniation and spinal cord injury. He is also status post fusion and extension from prior fusion C2-7 and near extension fusion down to T3. He is unable to move his legs still. Samuels catheter still in place. Using incentive spirometer. Afebrile. Objective - Vital Signs Vital signs: Vital Signs Temp 99.1 F 03/24/25 04:00 Pulse 78 03/24/25 07:55 Resp 14 03/24/25 07:00 BP 124/71 03/24/25 07:00 Pulse Ox 90 L 03/24/25 07:00 FiO2 85 03/24/25 08:00 Intake & Output 03/23/25 03/24/25 03/24/25 18:59 06:59 18:59 Intake Total 2715 1500 Output Total 1870 1230 Balance 845 270 Weight 105.5 kg 103.3 kg Intake: IV 2175 1500 Piperacillin-Tazobactam 3 200 100 .375 gm In Sodium Chloride 0.9% 100 ml @ 25 mls/hr IVPB Q8HR [facility] Rx# :[id number] Sodium Chloride 0.9% 1, 975 900 000 ml @ 75 mls/hr IV . [id number] [facility] Rx#:[id number] Vancomycin 1,500 mg In 1000 500 Sodium Chloride 0.9% 500 ml 500 ml @ 167 mls/hr IVPB Q12H [facility] Rx#: [id number] Oral 540 Output: Urine 1870 1230 Other: Voiding Method Indwelling Catheter Indwelling Catheter - Exam General: nontoxic, no distress, appears at stated age, patient is currently on Airvo. The patient is wearing a hard neck collar. Derm: warm, dry, intact, dressing noted at the back of neck with no signs of drainage or bleeding. Head: atraumatic, normocephalic, symmetric Eyes: EOMI, anicteric sclera Mouth: no lip lesion, mucus membranes moist Cardiovascular: S1 S2 reg, no murmur, rubs, or gallops Lungs: Diminished breath on the left compared to the right. Nearly absent breath on the left lung base Abdominal: soft, a bowel sounds are present in the patient's abdomen is obvious less tympanic compared to yesterday. Extremities: no gross muscle atrophy, no edema, no contractures, patient is unable to move bilateral lower extremity Neuro: Alert, Oriented, CNII-XII grossly intact, gait cannot be assessed as the patient has absent motor function lower extremities bilaterally patient has bilateral foot drop. Reflexes are diminished. No Babinski. No clonus. Psych: well appearing, appropriate affect - Labs CBC & Chem 7: 03/24/25 04:53 03/24/25 04:53 Labs: Abnormal Lab Results - Last 24 Hours (Table) 03/23/25 03/23/25 03/23/25 Range/Units 11:03 16:56 19:52 WBC (4.50-10.00) 10*3/uL RBC (4.40-5.60) 10*6/uL Hgb (13.0-17.0) g/dL Hct (39.6-50.0) % Sodium (137-145) mmol/L BUN (9-20) mg/dL Glucose (74-99) mg/dL POC Glucose (mg/dL) 259 H 320 H 372 H (70-110) mg/dL Calcium (8.4-10.2) mg/dL 03/24/25 03/24/25 03/24/25 Range/Units 04:53 04:53 06:23 WBC 11.91 H (4.50-10.00) 10*3/uL RBC 3.73 L (4.40-5.60) 10*6/uL Hgb 11.3 L (13.0-17.0) g/dL Hct 32.3 L (39.6-50.0) % Sodium 136 L (137-145) mmol/L BUN 34 H (9-20) mg/dL Glucose 261 H (74-99) mg/dL POC Glucose (mg/dL) 282 H (70-110) mg/dL Calcium 8.3 L (8.4-10.2) mg/dL Assessment and Plan Plan: Acute hypoxic respiratory failure, multifactorial. The patient has developed postoperative atelectasis of the left lower lobe and the patient has significant elevation in volume loss in the left lung compared to the right. There is an area of consolidation left upper lobe. In addition, the patient has developed an abdominal ileus with secondary distention further compromising his respiratory status. CT of the chest is quite suspicious for a left lung pneumonia. No evidence of any pulmonary embolism or filling defect based on the CT angiogram. Patient is currently on BiPAP. The patient was placed on BiPAP due to ongoing hypoxemia. The patient was started on broad-spectrum antibiotics with a combination of Zosyn and vancomycin. Follow-up chest x-ray shows volume loss and left lower lobe consolidation and the patient is currently stable on BiPAP. The patient is currently on Airvo Shortness of breath secondary to above, stable for now Severe spinal canal stenosis at the level of C7/T1 with motor weakness in the lower extremities in addition to myelopathy. The patient is post C7/T1 discectomy with decompression and fusion and the patient also had extension of a previous C2/7 fusion to T3. Patient is postop day #4. Abdominal distention/ileus, recovered Obstructive sleep apnea maintain CPAP therapy on outpatient basis Diabetes mellitus type 2, with steroid-induced hyperglycemia Hypotension, rule out septic versus neurogenic hypotension post spine surgery Sinus tachycardia Hyperlipidemia Seroma in the posterior soft tissues along the length of the skin jarad, spi nal surgeries following Bilateral lower extremity weakness, ongoing motor weakness in the lower ext remities bilaterally with absent motor function at this point with bilateral foot drop. Patient's sensations in the lower limbs have improved, but now patient is completely paraplegic. T8 paresthesias History of prior cervical fusion C3-C7 History of severe L5-S1 neuroforaminal stenosis Plan Keep the patient on Airvo 60 L and FiO2 of 90% and BiPAP overnight. Chest x-ray findings are stable Continue Zosyn and vancomycin Incentive spirometer Aggressive pulmonary toileting Continue DuoNeb nebulizer treatments [id number] Pain control and muscle relaxants Continue normal saline rate of 75 cc an hour, pressors if needed Lantus insulin dose will be increased up to 25 units daily in addition to his sliding scale coverage, will modify the dose based on his blood sugar control Dilaudid for pain control in combination with [place] as needed Flexeril Diazepam as needed Keep Samuels catheter in place Will continue to follow and make further recommendation based on his progress. Will keep the patient in ICU. Evaluation was done at 33 minutes. Time with Patient: Greater than 30
--- NOTE | 2025-03-24 14:33 | P.PN ---
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 Wheeler) approximately 2 months ago, migraine headaches, depression. Presented to the emergency department with a chief complaint of sudden onset numbness extending from periumbilical region downwards throughout groin and bilateral lower extremities followed by weakness of bilateral lower extremities. Patient states he was moving some plants at home when he had sudden onset of numbness around his lower abdomen circling around him like a belt that quickly radiated into his groin and into bilateral lower extremities accompanied by weakness of bilateral lower extremities which resulted in his legs giving out from beneath him causing him to fall to the ground. Patient denied having any dizziness or lightheadedness, headache, neck or back pain, or experiencing any pain in his abdomen, groin, or lower extremities. He denies hitting his head during the fall and denies having any loss of consciousness. But reports due to the sudden onset numbness and weakness he was unable to stand back up and had to have his call EMS for transfer to the hospital. Upon arrival to our facility, patient underwent evaluation in the emergency department. Vital signs upon arrival show blood pressure 165/97, heart rate 88, respiratory rate 18, temp 98.8 F, and SpO2 of 97% on room air. CT lumbar spine CT abdomen and pelvis was also negative for acute intra-abdominal process completed showing no evidence for spinal fracture, no evidence for significant spinal canal stenosis revealing severe right L5-S1 neuroforaminal stenosis and moderate bilateral L4-L5 neuroforaminal stenosis, revealing a right middle lobe pulmonary nodule 8 mm, prostamegaly, colonic diverticulosis, and bilateral adrenal myolipoma's. Labs completed and reviewed. CBC unremarkable. BMP showing hyperglycemia with blood glucose of 146. Liver profile normal findings. Urinalysis positive for glucose and ketones but negative for infection. Patient was admitted under services with consultation to neurology and orthospine surgery. MRI lumbar spine was completed showing no definitive evidence of disc herniation or significant spinal canal stenosis revealing minimal disc degeneration with associated osteoarthritic changes. Patient underwent extensive cervical spinal surgery on the evening of 03/20/2025 through 03/21/2025. Subjective: Patient was seen and examined at bedside in the ICU. No acute events overnight. Patient reports shortness of breath about the same compared to yesterday. Patient is unable to move his bilateral lower extremity and reports bilateral lower extremity numbness. Denies chest pain, fever, chills, nausea or vomiting, belly pain, diarrhea or constipation. Pertinent positives and negatives as discussed above, a complete review of systems was performed and all other systems are negative. Vitals: Signs Reviewed Physical Exam: General: nontoxic, no distress, appears at stated age Derm: warm, dry, intact, dressing noted at the back of neck with no signs of drainage or bleeding. Head: atraumatic, normocephalic, symmetric Eyes: EOMI, anicteric sclera Mouth: no lip lesion, mucus membranes moist Cardiovascular: S1 S2 reg, no murmur, rubs, or gallops Lungs: CTA bilateral, no rhonchi, no rales, no accessory muscle use Abdominal: soft, non-tender to palpataion, no appreciable organomegaly Extremities: no gross muscle atrophy, no edema, no contractures, patient is unable to move bilateral lower extremity Neuro: Alert, Oriented, CNII-XII grossly intact, gait normal Psych: well appearing, appropriate affect Data Received Today: Pertinent Labs: WBC 11.91, hemoglobin 11.3, hematocrit 32.3, sodium 136, potassium 4.2, BUN 34, creatinine 0.83, glucose 261-282, calcium 8.3 Imaging: Chest x-ray on 03/23/2025 showed low lung volumes with generalized hazy appearance which could represent atelectasis versus pulmonary edema layering pleural effusions may also be present. Chest CTA showed no evidence of pulmonary embolism. Markedly progressive left lung volume loss with marked atelectasis increasing suspicion for endobronchial obstruction/neoplasm and further evaluation may be indicated. Interval development of mild right lower lobe atelectasis. Assessment and Plan: Suspected hematoma in the posterior soft tissues along the length of the skin jaard Acute spinal cord injury resulting in severe spinal canal stenosis involving C7- T1 Status post extensive cervical decompression with discectomy at C7-T1 and fusion with extension of fusion from C3-C7 with new extension down to T3 Acute onset of bilateral lower extremity numbness and weakness Abdominal and periumbilical/suprapubic and groin numbness Severe right L5-S1 neuroforaminal stenosis Moderate bilateral L4-L5 neuroforaminal stenosis - Orthopedic surgery following status post extensive cervical decompression with dissecting at C7-T1 and fusion with extension of fusion from C3-C7 with new extension down to T3 - Continue inpatient rehab -Continue to hold aspirin and blood pressure medicine due to suspected hematoma - Continue neurochecks every 4 hours and as needed. - Continue IV steroids with Solu-Medrol 100 mg IVP every 6 hours. - Maintain fall precautions - Continue Samuels catheter management - Continue Unna boot bilaterally to prevent foot drop - PT/OT following - Reviewed neurology consult note. Neurology recommends ID consultation. Continue folate replacement. Bilateral lower extremity edema Order Doppler ultrasound of bilateral lower extremity to rule out DVT Dyspnea, likely secondary to postoperative atelectasis of the left lower lobe CT angio of chest shows markedly progressive left lung volume loss with marked atelectasis increasing suspicion for endobronchial obstruction/neoplasm and further evaluation may be indicated. Interval development of mild right lower lobe atelectasis. Continue DuoNebs 4 times daily and every 2 hours as needed Encourage incentive spirometry Leukocytosis -Reactive secondary to severe spinal canal stenosis and high-dose steroids being administered at this time. No signs of infection. Continue to monitor with morning labs Type II zdm-xesenhm-dwsbzaujh diabetes mellitus with hyperglycemia -Hyperglycemia likely secondary to high-dose steroids being administered at this time. Will continue glycemic protocol with Humalog sliding scale. Currently blood glucose ranging 261-337. - Increase Lantus to 25 units subcu daily as basal insulin Added Humalog 4 units with subcu AC 3 times daily Hypotension - Hold blood pressure medicine Hyperlipidemia - Continue daily medication regimen with atorvastatin 40 mg nightly Obstructive sleep apnea - Continue CPAP nightly and while napping. CODE STATUS: Full code DVT prophylaxis: Hold Lovenox in the setting of suspected hematoma Discussed with: Patient and orthospine surgeon Anticipated discharge date: Pending clinical course Anticipated discharge place: Pending clinical course I saw and evaluated the patient during the morgan and critical portions of this encounter, and discussed the case in detail with the resident author of this note, I agree with the Assessment and Plan, and my changes, if any, are highlighted in blue. Medicine team would prefer to resume Lovenox for DVT prophylaxis if cleared to do so by orthopedic surgery. Objective - Vital Signs Vital signs: Vital Signs Temp 99.1 F 03/24/25 04:00 Pulse 77 03/24/25 07:00 Resp 14 03/24/25 07:00 BP 124/71 03/24/25 07:00 Pulse Ox 90 L 03/24/25 07:00 FiO2 70 03/24/25 03:26 Intake & Output 03/23/25 03/24/25 03/24/25 18:59 06:59 18:59 Intake Total 2715 1500 Output Total 1870 1230 Balance 845 270 Weight 105.5 kg 103.3 kg Intake: IV 2175 1500 Piperacillin-Tazobactam 3 200 100 .375 gm In Sodium Chloride 0.9% 100 ml @ 25 mls/hr IVPB Q8HR [facility] Rx# :[id number] Sodium Chloride 0.9% 1, 975 900 000 ml @ 75 mls/hr IV . [id number] [facility] Rx#:[id number] Vancomycin 1,500 mg In 1000 500 Sodium Chloride 0.9% 500 ml 500 ml @ 167 mls/hr IVPB Q12H [facility] Rx#: [id number] Oral 540 Output: Urine 1870 1230 Other: Voiding Method Indwelling Catheter Indwelling Catheter - Labs CBC & Chem 7: 03/24/25 04:53 03/24/25 04:53 Labs: Abnormal Lab Results - Last 24 Hours (Table) 03/23/25 03/23/25 03/23/25 Range/Units 11:03 16:56 19:52 WBC (4.50-10.00) 10*3/uL RBC (4.40-5.60) 10*6/uL Hgb (13.0-17.0) g/dL Hct (39.6-50.0) % Sodium (137-145) mmol/L BUN (9-20) mg/dL Glucose (74-99) mg/dL POC Glucose (mg/dL) 259 H 320 H 372 H (70-110) mg/dL Calcium (8.4-10.2) mg/dL 03/24/25 03/24/25 03/24/25 Range/Units 04:53 04:53 06:23 WBC 11.91 H (4.50-10.00) 10*3/uL RBC 3.73 L (4.40-5.60) 10*6/uL Hgb 11.3 L (13.0-17.0) g/dL Hct 32.3 L (39.6-50.0) % Sodium 136 L (137-145) mmol/L BUN 34 H (9-20) mg/dL Glucose 261 H (74-99) mg/dL POC Glucose (mg/dL) 282 H (70-110) mg/dL Calcium 8.3 L (8.4-10.2) mg/dL
--- NOTE | 2025-03-24 14:35 | P.PN ---
Subjective Progress Note Date: 03/24/25 I am seeing the patient for the first time during this hospital visit. Please refer to Dr. Woodruff's note for further details. Seems the patient had weakness in his legs and he had MRI of the cervical spine which revealed large disc herniation at C7-T1 producing severe spinal canal stenosis with probable m yelomalacia. After surgery patient got severely weak in the legs and now he is completely paraplegic. Patient denies any weakness in the upper extremity, any visual difficulty, any difficulty with breathing or difficulty swallowing. Patient had undergone removal of hardware deep bone at C2, C3, C4, C5, C6, C7, posterior cervical decompression with laminectomy and partial facetectomy, wide foraminotomy brace with discectomy C7-T1 on 03/21/2025. Patient has subsequently developed complete paraplegia. Now patient has again sensory level at T8. Orthopedic surgery already on the case, and aware. Objective - Vital Signs Vital signs: Vital Signs Temp 98.4 F 03/24/25 08:00 Pulse 94 03/24/25 13:00 Resp 19 03/24/25 13:00 BP 101/66 03/24/25 13:00 Pulse Ox 99 03/24/25 13:00 FiO2 85 03/24/25 09:00 Intake & Output 03/23/25 03/24/25 03/24/25 18:59 06:59 18:59 Intake Total 2715 1500 670 Output Total 1870 1230 675 Balance 845 270 -5 Weight 105.5 kg 103.3 kg Intake: IV 2175 1500 450 Piperacillin-Tazobactam 3 200 100 .375 gm In Sodium Chloride 0.9% 100 ml @ 25 mls/hr IVPB Q8HR [facility] Rx# :[id number] Sodium Chloride 0.9% 1, 975 900 450 000 ml @ 75 mls/hr IV . [id number] [facility] Rx#:[id number] Vancomycin 1,500 mg In 1000 500 Sodium Chloride 0.9% 500 ml 500 ml @ 167 mls/hr IVPB Q12H [facility] LU[facility] Rx#: [id number] Intake, IV Titration 100 Amount Piperacillin-Tazobactam 3 100 .375 gm In Sodium Chloride 0.9% 100 ml @ 25 mls/hr IVPB Q8HR [facility] Rx# :[id number] Oral 540 120 Output: Urine 1870 1230 675 Other: Voiding Method Indwelling Catheter Indwelling Catheter Indwelling Catheter # Bowel Movements 1 - Exam General: Sitting in a recliner chair and is not in acute distress. Neuro: Patient is awake alert oriented to self place and time. Does follow simple commands. No aphasia. No facial weakness. No dysarthria Motor: Upper extremity are 5 out of 5 in the lowers is 0 out of 5 bilaterally. - Labs CBC & Chem 7: 03/24/25 04:53 03/24/25 04:53 Labs: Abnormal Lab Results - Last 24 Hours (Table) 03/23/25 03/23/25 03/24/25 Range/Units 16:56 19:52 04:53 WBC (4.50-10.00) 10*3/uL RBC (4.40-5.60) 10*6/uL Hgb (13.0-17.0) g/dL Hct (39.6-50.0) % Sodium 136 L (137-145) mmol/L BUN 34 H (9-20) mg/dL Glucose 261 H (74-99) mg/dL POC Glucose (mg/dL) 320 H 372 H (70-110) mg/dL Calcium 8.3 L (8.4-10.2) mg/dL 03/24/25 03/24/25 03/24/25 Range/Units 04:53 06:23 11:13 WBC 11.91 H (4.50-10.00) 10*3/uL RBC 3.73 L (4.40-5.60) 10*6/uL Hgb 11.3 L (13.0-17.0) g/dL Hct 32.3 L (39.6-50.0) % Sodium (137-145) mmol/L BUN (9-20) mg/dL Glucose (74-99) mg/dL POC Glucose (mg/dL) 282 H 337 H (70-110) mg/dL Calcium (8.4-10.2) mg/dL Microbiology - Last 24 Hours (Table) 03/22/25 18:13 Nasal Screen MRSA/MSSA - Final Nasal Swab Staphylococcus aureus,Not MRSA Assessment and Plan Assessment: * Acute paraparesis, with left leg much weaker than the right. Patient has a sensory level at T8. MRI of the cervical spine revealed large disc herniation at C7-T1 producing severe spinal canal stenosis with probable myelomalacia. * Status post C7-T1 discectomy for decompression with wide laminectomy, foraminotomy and partial facetectomy 03/21/2025. Patient strength has got much worse postsurgery, now complete paraplegic. * Seroma in the posterior soft tissues along the length of the skin jarad, spinal surgeries following * Acute hypoxic respiratory failure, possible pneumonia. Postoperative atelectasis. * Abdominal distention/ileus. * Urinary retention, likely due to spinal stenosis. * History of cervical spinal fusion C3-C7 in 2017 * Diabetes * Hyperlipidemia * Obstructive sleep apnea Plan: * CT of the cervical spine without contrast 03/22/2025 revealed interval surgery with C7-T1 laminectomy at the site of cord compression seen on MRI. Posterior midline skin jarad as well as air and postoperative fluid/suspected seroma in the posterior soft tissues along the entire length of the skin jarad. Note that this area spans approximately 13 cm craniocaudal. Posterior fusion changes now extended down to T3 level (previously down to C7 level). The previous C4 C7 ACDF remains in place. Revision of the posterior fusion hardware on the right now to extend from C5 rather than C2. * CT of thoracic spine revealed C7-T1 laminectomy and posterior fusion extending down to the T3 level described above. No vertebral compression collapse or malalignment. * I would defer need for repeat MRI of the cervical spine to orthopedic surgery. * Patient on methylprednisolone 100 mg every 6 hours. * No further fevers. Currently on vancomycin and Zosyn. Suggest ID consultation. * MRI of the cervical spine 03/19/2025 reveals severe spinal canal stenosis secondary to disc osteophyte complex at the level of C7 and T1 possibly related to altered mechanics. There is mild cord edema. Neurosurgical consultation recommended. Postsurgical changes from C2-C7. Degeneration with moderate right C5-C6 and moderate left C6-C7 neural foraminal stenosis sec ondary to disc osteophyte complexes. I personally reviewed MRI, agree with the findings. * Orthopedic spine on board, and patient undergoing decompressive surgery later this evening. * MRI thoracic spine 03/20/2025 revealed no evidence of significant spinal canal stenosis. Mild degenerative changes. I personally reviewed MRI agree with the findings. * MRI of the lumbar spine 03/19/2025, revealed no definitive evidence of disc herniation or significant spinal canal stenosis. Minimal disc degeneration with associated osteoarthritic changes. I personally reviewed MRI, agree with the findings. * B12 685, folate 8.3. Continue folate replacement. * Other medical management as per IM, critical care and other specialties on board. * DVT prophylaxis: Patient on SCDs. Suggest adding heparin subcu if no surgical contraindications, as patient is high risk. Time with Patient: Less than 30
[2025-03-24] MEDS: ENOXAPARIN 40 MG/0.4 ML SYRINGE SQ SCH (15:59)
[2025-03-24 16:24] LABS: Glucose,Whole Blood 259 mg/dL (70-110)
[2025-03-24] MEDS: VANCOMYCIN TROUGH DUE 1 EACH MISC MISCELLANE ONE (18:36)
[2025-03-24] MEDS: VANCOMYCIN 1,750 MG in SODIUM CHLORIDE 0.9% 500 ML 500 ML IVPB SCH (18:36)
--- NOTE | 2025-03-24 18:40 | US ---
EXAMINATION TYPE: US venous doppler duplex LE DATE OF EXAM: 03/24/2025 11:39 AM COMPARISON: None. CLINICAL INDICATION: Male, 64 years old with history of rule out dvt; Pain, Pain TECHNIQUE: The lower extremity deep venous system is examined utilizing real time linear array sonog jia with graded compression, color doppler sonography, and spectral doppler. SIDE PERFORMED: Bilateral FINDINGS: VESSELS IMAGED: Common Femoral Vein Deep Femoral Vein Greater Saphenous Vein * Femoral Vein Popliteal Vein Small Saphenous Vein * Proximal Calf Veins (* superficial vessels) Right Leg: Negative for DVT, Color Doppler imaging shows patency of the vessels. Spectral waveforms are within normal limits. Left Leg: Negative for DVT, Color Doppler imaging shows patency of the vessels. Spectral waveforms a re within normal limits. IMPRESSION: No ultrasound evidence for deep venous thrombosis. [facility], , 03/24/2025 6:38 PM
[2025-03-24 20:23] LABS: Glucose,Whole Blood 284 mg/dL (70-110)
[2025-03-25 06:19] LABS: Basophils # (A) 0.01 10*3/uL (0.00-0.10); Basophils % (A) 0.1 %; Eosinophils # (A) 0.00 10*3/uL (0.04-0.35); Eosinophils % (A) 0.0 %; HCT 32.3 % (39.6-50.0); HGB 10.9 g/dL (13.0-17.0); Lymphocytes # (A) 0.62 10*3/uL (0.90-5.00); Lymphocytes % (A) 5.1 %; MCH 29.1 pg (27.0-32.0); MCHC 33.7 g/dL (32.0-37.0); MCV 86.4 fL (80.0-97.0); Monocytes # (A) 0.93 10*3/uL (0.20-1.00); Monocytes % (A) 7.7 %; Neutrophils # (A) 10.19 10*3/uL (1.80-7.70); Neutrophils % (A) 84.4 %; Platelet Count 210 10*3/uL (140-440); RBC 3.74 10*6/uL (4.40-5.60); RDW 13.2 % (11.5-14.5); WBC 12.07 10*3/uL (4.50-10.00)
[2025-03-25 06:30] LABS: ALT 59 U/L (4-49); AST 47 U/L (17-59); African American GFR (CKD) >90 (>60 ml/min/1.73 sqM); Albumin 2.5 g/dL (3.5-5.0); Alkaline Phosphatase 39 U/L (38-126); Anion Gap 6 mmol/L; Blood Urea Nitrogen 32 mg/dL (9-20); Calcium 8.6 mg/dL (8.4-10.2); Carbon Dioxide 24 mmol/L (22-30); Chloride 108 mmol/L (98-107); Glucose 255 mg/dL (74-99); Non-African American GFR(CKD) >90 (>60 ml/min/1.73 sqM); Potassium 4.2 mmol/L (3.5-5.1); Sodium 138 mmol/L (137-145); Total Protein 4.9 g/dL (6.3-8.2)
[2025-03-25 07:10] LABS: Glucose,Whole Blood 258 mg/dL (70-110)
[2025-03-25] MEDS: INSULIN GLARGINE (LANTUS) 100 UNIT/ML SYR SQ SCH (07:35)
--- NOTE | 2025-03-25 09:10 | XR ---
EXAMINATION TYPE: XR chest 1V portable DATE OF EXAM: 03/25/2025 COMPARISON: 03/24/2025 CLINICAL INDICATION: Male, 64 years old with history of airvo/bipap dependent with low oxygen levels; TECHNIQUE: Single frontal view of the chest is obtained. FINDINGS: There is no change in the left lung opacity obscuring the left hemidiaphragm. It is likely a combinat ion of pleural effusion and left lower lobe atelectasis or pneumonia. The right lung remains clear. There is no pneumothorax. Heart and pulmonary vasculature are within normal limits. IMPRESSION: No change in the acute cardiopulmonary process involving the left lower lobe as described. [facility], , 03/25/2025 9:08 AM
--- NOTE | 2025-03-25 10:48 | US ---
EXAMINATION TYPE: US chest DATE OF EXAM: 03/25/2025 COMPARISON: NONE CLINICAL INDICATION: Male, 64 years old with history of LLL atelectasis, possible thora.; atelectasis and effusion on left side TECHNIQUE: Grayscale imaging of the chest. Targeted ultrasound of the posterior lower bilateral seema thoraces (per RN) FINDINGS: EXAM MEASUREMENTS: Left: no definitive fluid pocket visualized, possible lung consolidation noted above left hemidiaphra gm/spleen Right: no evidence for pleural effusion Pulmonologists are able to review the images in the patient?s EMR. IMPRESSIONS: No evidence of pleural effusion bilaterally. [facility], , 03/25/2025 10:45 AM
[2025-03-25 11:05] LABS: Glucose,Whole Blood 288 mg/dL (70-110)
--- NOTE | 2025-03-25 12:27 | P.PN ---
Subjective Progress Note Date: 03/25/25 This is a 64-year-old male patient was undergone a C 7 T1 discectomy, done posteriorly with wide laminectomy and foraminotomy and partial facetectomy. The patient was experiencing cervical myelopathy with severe bilateral lower extremity weakness and T8 paresthesia. The patient has previous history of cervical spine fusion C2-C7. The patient was found to have a large herniated disc C7-T1 with severe spinal cord stenosis and based on that the patient was taken to the operating room and underwent a C7-T1 discectomy on 03/21/2025. The patient has become progressively more hypoxic. Currently he is on Airvo at 60 L and FiO2 of 90%. His current pulse ox is in order of 90 to 93%. Slightly tachycardic. Blood pressure is also soft at 89/62. Based on worsening hypoxemia, CT of the chest was done and the patient was found to have significant volume loss in the left lung compared to the right. There is marked volume loss and atelectasis in addition to an area of consolidation in the left upper lobe and elevation of the left hemidiaphragm in addition to significant gastric distention. The patient has dilated air in the stomach and colon. Blood work shows a white cell count of 14, hemoglobin 12.4 and a platelet count of 175. Sodium levels at 137, bicarb is at 23, potassium level is at 4.3 with a chloride of 102. BUN 23 with a creatinine of 0.9. The patient is resting comfortably in bed. He is wearing a hard neck collar. He is reporting some mild shortness of breath even at rest. He is tolerating the Airvo. He is currently on IV Solu-Medrol 100 mg every 6 hours post neck surgery. He is also on IV fluids with l normal saline at rate of 75 cc an hour. Comorbidities include hypertension, hyperlipidemia, diabetes mellitus type 2, obstructive sleep apnea maintained on CPAP therapy on outpatient basis On today's evaluation of 03/23/25, patient is still on the BiPAP pressure of 14 over 6 cm of water and FiO2 has been weaned down to 65%. The patient's abdomen seems to be less distended. He had 2 bowel movements and the patient is also passing flatus. Fluid balance +223 cc over the past 24 hours and the patient remains on normal saline at a rate of 75 cc an hour. Neurologically, unchanged and the patient has absent motor function lower extremities bilaterally. He is on broad-spectrum antibiotics and the patient is currently on Zosyn vancomycin combination. Follow-up chest x-ray shows some interval improvement in aeration in the left lung base. Lung volumes in the left remain small and there is some ongoing atelectatic change at left lower lobe. The patient's white cell count is 11, hemoglobin 11.3 and a platelet count of 180. Electrolytes are all within normal limits. BUN is 40 with a creatinine of 1.05. The patient is able to communicate. He is alert and awake. Denies having any specific complaints. Still wearing a hard neck collar. 03/24/2025, the patient is laying flat in bed and is currently on a BiPAP at a pressure of 14/6 with an FiO2 of 75% overnight and Airvo during the day. He remains on normal saline at rate of 75 cc an hour. Chest x-ray still showing left lower lobe consolidation. Abdomen is soft. He had 3 bowel movements. He is on Lantus insulin. The patient's mentation is awake and alert. Nevertheless, he continues to have profound weakness in the lower extremity and he remains paraplegic. Remains on IV Solu-Medrol. Blood sugars are elevated and he remains on Lantus 15 units daily and NovoLog sliding scale coverage. The white cell count 11.9, hemoglobin 11.3 and a platelet count of 201. BUN 34 with a creatinine of 0.8. Sodium levels at 136. Blood sugars up to 82. He is postop day #4 following an open decompression and fusion of C7-T1 surgery was done due to a large disc herniation and spinal cord injury. He is also status post fusion and extension from prior fusion C2-7 and near extension fusion down to T3. He is unable to move his legs still. Samuels catheter still in place. Using incentive spirometer. Afebrile. 03/25/2025, the patient is being seen for a follow-up. Repeat chest x-ray was done and shows ongoing volume loss and atelectasis in the left lung base. I also performed an ultrasound of the chest and there is no sizable pleural effusion for thoracentesis. Findings are more consistent with consolidation/atelectasis. Remains on Airvo at 60 L and FiO2 of 90%. Incentive spirometer. Overnight, using BiPAP pressure of 14/6 and use of water with an FiO2 of 80%. Remains in normal [place] rate of 75 cc an hour. Fluid balance is +550 cc over the past 24 hours. No respiratory difficulties. The white cell count of 12. Hemoglobin is 10.9. Platelet count is 210. BUN is 32 with a creatinine of 0.8. Sodium levels at 138 and potassium levels of 4.2. Remains on Zosyn and vancomycin. Neurologically unchanged and the patient continues to be paraplegic. Objective - Vital Signs Vital signs: Vital Signs Temp 97.6 F 03/25/25 04:00 Pulse 74 03/25/25 08:00 Resp 16 03/25/25 07:00 BP 134/77 03/25/25 07:00 Pulse Ox 95 03/25/25 07:00 FiO2 90 03/25/25 07:50 Intake & Output 03/24/25 03/25/25 03/25/25 18:59 06:59 18:59 Intake Total 1145 1925 75 Output Total 1305 1250 75 Balance -160 675 0 Weight 104.6 kg Intake: IV 825 925 75 Piperacillin-Tazobactam 3 100 .375 gm In Sodium Chloride 0.9% 100 ml @ 25 mls/hr IVPB Q8HR [facility] Rx# :[id number] Sodium Chloride 0.9% 1, 825 825 75 000 ml @ 75 mls/hr IV . [id number] JU[facility]IS Rx#:[id number] Intake, IV Titration 200 1000 Amount Piperacillin-Tazobactam 3 200 .375 gm In Sodium Chloride 0.9% 100 ml @ 25 mls/hr IVPB Q8HR [facility] Rx# :[id number] Vancomycin 1,750 mg In 1000 Sodium Chloride 0.9% 500 ml 500 ml @ 167 mls/hr IVPB Q12H [facility] Rx#: [id number] Oral 120 Output: Urine 1305 1250 75 Other: Voiding Method Indwelling Catheter Indwelling Catheter # Bowel Movements 1 1 - Exam General: nontoxic, no distress, appears at stated age, patient is currently on Airvo. The patient is wearing a hard neck collar. Derm: warm, dry, intact, dressing noted at the back of neck with no signs of drainage or bleeding. Head: atraumatic, normocephalic, symmetric Eyes: EOMI, anicteric sclera Mouth: no lip lesion, mucus membranes moist Cardiovascular: S1 S2 reg, no murmur, rubs, or gallops Lungs: Diminished breath on the left compared to the right. Nearly absent breath on the left lung base Abdominal: soft, a bowel sounds are present in the patient's abdomen is obvious less tympanic compared to yesterday. Extremities: no gross muscle atrophy, no edema, no contractures, patient is unable to move bilateral lower extremity Neuro: Alert, Oriented, CNII-XII grossly intact, gait cannot be assessed as the patient has absent motor function lower extremities bilaterally patient has bilateral foot drop. Reflexes are diminished. No Babinski. No clonus. Psych: well appearing, appropriate affect - Labs CBC & Chem 7: 03/25/25 05:51 03/25/25 05:51 Labs: Abnormal Lab Results - Last 24 Hours (Table) 03/24/25 03/24/25 03/24/25 Range/Units 11:13 16:22 20:23 WBC (4.50-10.00) 10*3/uL RBC (4.40-5.60) 10*6/uL Hgb (13.0-17.0) g/dL Hct (39.6-50.0) % Immature Gran # (0.00-0.04) 10*3/uL Neutrophils # (1.80-7.70) 10*3/uL Lymphocytes # (0.90-5.00) 10*3/uL Eosinophils # (0.04-0.35) 10*3/uL Chloride (98-107) mmol/L BUN (9-20) mg/dL Glucose (74-99) mg/dL POC Glucose (mg/dL) 337 H 259 H 284 H (70-110) mg/dL ALT (4-49) U/L Total Protein (6.3-8.2) g/dL Albumin (3.5-5.0) g/dL 03/25/25 03/25/25 03/25/25 Range/Units 05:51 05:51 07:09 WBC 12.07 H (4.50-10.00) 10*3/uL RBC 3.74 L (4.40-5.60) 10*6/uL Hgb 10.9 L (13.0-17.0) g/dL Hct 32.3 L (39.6-50.0) % Immature Gran # 0.32 H (0.00-0.04) 10*3/uL Neutrophils # 10.19 H (1.80-7.70) 10*3/uL Lymphocytes # 0.62 L (0.90-5.00) 10*3/uL Eosinophils # 0.00 L (0.04-0.35) 10*3/uL Chloride 108 H (98-107) mmol/L BUN 32 H (9-20) mg/dL Glucose 255 H (74-99) mg/dL POC Glucose (mg/dL) 258 H (70-110) mg/dL ALT 59 H (4-49) U/L Total Protein 4.9 L (6.3-8.2) g/dL Albumin 2.5 L (3.5-5.0) g/dL Microbiology - Last 24 Hours (Table) 03/22/25 18:13 Nasal Screen MRSA/MSSA - Final Nasal Swab Staphylococcus aureus,Not MRSA Assessment and Plan Plan: Acute hypoxic respiratory failure, multifactorial. The patient has developed postoperative atelectasis of the left lower lobe and the patient has significant elevation in volume loss in the left lung compared to the right. There is an area of consolidation left upper lobe. In addition, the patient has developed an abdominal ileus with secondary distention further compromising his respiratory status. CT of the chest is quite suspicious for a left lung pneumonia. No evidence of any pulmonary embolism or filling defect based on the CT angiogram. Patient is currently on BiPAP. The patient was placed on BiPAP due to ongoing hypoxemia. The patient was started on broad-spectrum antibiotics with a combination of Zosyn and vancomycin. Follow-up chest x-ray shows volume loss and left lower lobe consolidation and the patient is alternating between Airvo in the morning and BiPAP at night. Ultrasound of the chest shows no evidence of any pleural effusion. No interval worsening in the oxygenation. Clinically stable and hypoxemia is attributed to left lower lobe consolidation and atelectasis. Shortness of breath secondary to above, stable for now Severe spinal canal stenosis at the level of C7/T1 with motor weakness in the lower extremities in addition to myelopathy. The patient is post C7/T1 discectomy with decompression and fusion and the patient also had extension of a previous C2/7 fusion to T3. Patient is postop day # 5 Abdominal distention/ileus, recovered Obstructive sleep apnea maintain CPAP therapy on outpatient basis Diabetes mellitus type 2, with steroid-induced hyperglycemia Hypotension, rule out septic versus neurogenic hypotension post spine surgery Sinus tachycardia Hyperlipidemia Seroma in the posterior soft tissues along the length of the skin jarad, spinal surgeries following Bilateral lower extremity weakness, ongoing motor weakness in the lower extremities bilaterally with absent motor function at this point with bilateral foot drop. Patient's sensations in the lower limbs have improved, but now patient is completely paraplegic. T8 paresthesias History of prior cervical fusion C3-C7 History of severe L5-S1 neuroforaminal stenosis Plan Keep the patient on Airvo 60 L and FiO2 of 90% and BiPAP overnight. Chest x-ray findings are stable, ultrasound of the chest was noted. No sizable pleural effusion. Continue Zosyn and vancomycin Incentive spirometer Aggressive pulmonary toileting Continue DuoNeb nebulizer treatments [id number] Pain control and muscle relaxants Continue normal saline rate of 75 cc an hour no need for pressors Lantus insulin dose will be increased up to 35 units daily in addition to his sliding scale coverage, will modify the dose based on his blood sugar control Dilaudid for pain control in combination with [place] as needed Flexeril Diazepam as needed Keep Samuels catheter in place Will continue to follow and make further recommendation based on his progress. Will keep the patient in ICU. Evaluation was done at 33 minutes. Time with Patient: Greater than 30
--- NOTE | 2025-03-25 14:09 | P.PN ---
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 Wheeler) approximately 2 months ago, migraine headaches, depression. Presented to the emergency department with a chief complaint of sudden onset numbness extending from periumbilical region downwards throughout groin and bilateral lower extremities followed by weakness of bilateral lower extremities. Patient states he was moving some plants at home when he had sudden onset of numbness around his lower abdomen circling around him like a belt that quickly radiated into his groin and into bilateral lower extremities accompanied by weakness of bilateral lower extremities which resulted in his legs giving out from beneath him causing him to fall to the ground. Patient denied having any dizziness or lightheadedness, headache, neck or back pain, or experiencing any pain in his abdomen, groin, or lower extremities. He denies hitting his head during the fall and denies having any loss of consciousness. But reports due to the sudden onset numbness and weakness he was unable to stand back up and had to have his call EMS for transfer to the hospital. Upon arrival to our facility, patient underwent evaluation in the emergency department. Vital signs upon arrival show blood pressure 165/97, heart rate 88, respiratory rate 18, temp 98.8 F, and SpO2 of 97% on room air. CT lumbar spine CT abdomen and pelvis was also negative for acute intra-abdominal process completed showing no evidence for spinal fracture, no evidence for significant spinal canal stenosis revealing severe right L5-S1 neuroforaminal stenosis and moderate bilateral L4-L5 neuroforaminal stenosis, revealing a right middle lobe pulmonary nodule 8 mm, prostamegaly, colonic diverticulosis, and bilateral adrenal myolipoma's. Labs completed and reviewed. CBC unremarkable. BMP showing hyperglycemia with blood glucose of 146. Liver profile normal findings. Urinalysis positive for glucose and ketones but negative for infection. Patient was admitted under services with consultation to neurology and orthospine surgery. MRI lumbar spine was completed showing no definitive evidence of disc herniation or significant spinal canal stenosis revealing minimal disc degeneration with associated osteoarthritic changes. Patient underwent extensive cervical spinal surgery on the evening of 03/20/2025 through 03/21/2025. Subjective: Patient was seen and examined at bedside in the ICU. No acute events overnight. Remains on Zosyn, vancomycin. Chest x-ray continues to show a left hemidiaphragmatic paralysis. Chest ultrasound was done which was negative for pleural effusion bilaterally. Pertinent positives and negatives as discussed above, a complete review of systems was performed and all other systems are negative. Vitals: Signs Reviewed Gen: In NAD, non-toxic HEENT: normocephalic, atraumatic, hearing acuity is intant, mucous membranes moist CVS: perfusing all extremities well, trace pitting edema, Respiratory: symmetric chest expansion, no accessory muscle use, GI: soft, NTTP, ND, : no suprapubic tenderness, no CVA tenderness MSK/Derm: no rashes, cyanosis Neuro: CN II-XII intact, no motor weakness, Psych: cooperative, euthymic mood, judgment and insight is intact Data Received Today: Assessment and Plan: Suspected hematoma in the posterior soft tissues along the length of the skin jarad Acute spinal cord injury resulting in severe spinal canal stenosis involving C7- T1 Status post extensive cervical decompression with discectomy at C7-T1 and fusion with extension of fusion from C3-C7 with new extension down to T3 Acute onset of bilateral lower extremity numbness and weakness Abdominal and periumbilical/suprapubic and groin numbness Severe right L5-S1 neuroforaminal stenosis Moderate bilateral L4-L5 neuroforaminal stenosis - Orthopedic surgery following status post extensive cervical decompression with dissecting at C7-T1 and fusion with extension of fusion from C3-C7 with new extension down to T3 - Continue inpatient rehab -Continue to hold aspirin and blood pressure medicine due to suspected hematoma - Continue neurochecks every 4 hours and as needed. - Continue IV steroids with Solu-Medrol 100 mg IVP every 6 hours. - Maintain fall precautions - Continue Samuels catheter management - Continue Unna boot bilaterally to prevent foot drop - PT/OT following - Reviewed neurology consult note. Neurology recommends ID consultation. Continue folate replacement. Bilateral lower extremity edema Order Doppler ultrasound of bilateral lower extremity to rule out DVT Dyspnea with leukocytosis, likely secondary to postoperative atelectasis of the left lower lobe versus pneumonia CT angio of chest shows markedly progressive left lung volume loss with marked atelectasis increasing suspicion for endobronchial obstruction/neoplasm and further evaluation may be indicated. Interval development of mild right lower lobe atelectasis. Continue DuoNebs 4 times daily and every 2 hours as needed Encourage incentive spirometry Continue vancomycin, Zosyn Infectious disease consult is pending Type II gbo-dypfdew-nsnbfxwvw diabetes mellitus with hyperglycemia -Hyperglycemia likely secondary to high-dose steroids being administered at this time. Will continue glycemic protocol with Humalog sliding scale. Currently blood glucose ranging 261-337. - Increase Lantus to 25 units subcu daily as basal insulin Added Humalog 4 units with subcu AC 3 times daily Hypotension - Hold blood pressure medicine Hyperlipidemia - Continue daily medication regimen with atorvastatin 40 mg nightly Obstructive sleep apnea - Continue CPAP nightly and while napping. CODE STATUS: Full code DVT prophylaxis: Hold Lovenox in the setting of suspected hematoma Discussed with: Patient and orthospine surgeon Anticipated discharge date: Pending clinical course Anticipated discharge place: Pending clinical course I saw and evaluated the patient during the morgan and critical portions of this encounter, and discussed the case in detail with the resident author of this note, I agree with the Assessment and Plan, and my changes, if any, are highlighted in blue. Medicine team would prefer to resume Lovenox for DVT prophylaxis if cleared to do so by orthopedic surgery. Objective - Vital Signs Vital signs: Vital Signs Temp 97.6 F 03/25/25 04:00 Pulse 78 03/25/25 11:31 Resp 16 03/25/25 07:00 BP 134/77 03/25/25 07:00 Pulse Ox 95 03/25/25 07:00 FiO2 90 03/25/25 11:23 Intake & Output 03/24/25 03/25/25 03/25/25 18:59 06:59 18:59 Intake Total 1145 1925 75 Output Total 1305 1250 75 Balance -160 675 0 Weight 104.6 kg Intake: IV 825 925 75 Piperacillin-Tazobactam 3 100 .375 gm In Sodium Chloride 0.9% 100 ml @ 25 mls/hr IVPB Q8HR [facility] Rx# :[id number] Sodium Chloride 0.9% 1, 825 825 75 000 ml @ 75 mls/hr IV . [id number] [facility] Rx#:[id number] Intake, IV Titration 200 1000 Amount Piperacillin-Tazobactam 3 200 .375 gm In Sodium Chloride 0.9% 100 ml @ 25 mls/hr IVPB Q8HR [facility] Rx# :[id number] Vancomycin 1,750 mg In 1000 Sodium Chloride 0.9% 500 ml 500 ml @ 167 mls/hr IVPB Q12H [facility] Rx#: [id number] Oral 120 Output: Urine 1305 1250 75 Other: Voiding Method Indwelling Catheter Indwelling Catheter # Bowel Movements 1 1 - Labs CBC & Chem 7: 03/25/25 05:51 03/25/25 05:51 Labs: Abnormal Lab Results - Last 24 Hours (Table) 03/24/25 03/24/25 03/25/25 Range/Units 16:22 20:23 05:51 WBC 12.07 H (4.50-10.00) 10*3/uL RBC 3.74 L (4.40-5.60) 10*6/uL Hgb 10.9 L (13.0-17.0) g/dL Hct 32.3 L (39.6-50.0) % Immature Gran # 0.32 H (0.00-0.04) 10*3/uL Neutrophils # 10.19 H (1.80-7.70) 10*3/uL Lymphocytes # 0.62 L (0.90-5.00) 10*3/uL Eosinophils # 0.00 L (0.04-0.35) 10*3/uL Chloride (98-107) mmol/L BUN (9-20) mg/dL Glucose (74-99) mg/dL POC Glucose (mg/dL) 259 H 284 H (70-110) mg/dL ALT (4-49) U/L Total Protein (6.3-8.2) g/dL Albumin (3.5-5.0) g/dL 03/25/25 03/25/25 03/25/25 Range/Units 05:51 07:09 11:00 WBC (4.50-10.00) 10*3/uL RBC (4.40-5.60) 10*6/uL Hgb (13.0-17.0) g/dL Hct (39.6-50.0) % Immature Gran # (0.00-0.04) 10*3/uL Neutrophils # (1.80-7.70) 10*3/uL Lymphocytes # (0.90-5.00) 10*3/uL Eosinophils # (0.04-0.35) 10*3/uL Chloride 108 H (98-107) mmol/L BUN 32 H (9-20) mg/dL Glucose 255 H (74-99) mg/dL POC Glucose (mg/dL) 258 H 288 H (70-110) mg/dL ALT 59 H (4-49) U/L Total Protein 4.9 L (6.3-8.2) g/dL Albumin 2.5 L (3.5-5.0) g/dL
--- NOTE | 2025-03-25 15:39 | P.PN ---
Subjective Progress Note Date: 03/25/25 Principal diagnosis: Acute spinal cord injury with flaccid paralysis bilateral lower extremities, Postoperative day #4 status post open decompression and fusion C7-T1 due to large disc herniation C7-T1 with spinal cord injury, and status post fusion with extension from prior fusion C2-C7 with new extension of fusion down to T3 Progress Note Date: 03/24/25 Postoperative day #4 Patient is seen and examined today at bedside. He is sitting up in chair. He has no new complaints today. He is not complaining of pain. He reports some tingling sensation in the groin area. He is still not able to move his legs. He still feels that he can move his arms adequately. The disla remains intact Objective - Vital Signs Vital signs: Vital Signs Temp 98.4 F 03/25/25 12:00 Pulse 85 03/25/25 15:13 Resp 17 03/25/25 15:00 BP 145/74 03/25/25 15:00 Pulse Ox 93 L 03/25/25 15:00 FiO2 90 03/25/25 15:00 Intake & Output 03/24/25 03/25/25 03/25/25 18:59 06:59 18:59 Intake Total 1145 1925 700 Output Total 1305 1250 2295 Balance -160 675 -1595 Weight 104.6 kg Intake: IV 825 925 700 Piperacillin-Tazobactam 3 100 100 .375 gm In Sodium Chloride 0.9% 100 ml @ 25 mls/hr IVPB Q8HR [facility] Rx# :[id number] Sodium Chloride 0.9% 1, 825 825 600 000 ml @ 75 mls/hr IV . [id number] [facility] Rx#:[id number] Intake, IV Titration 200 1000 Amount Piperacillin-Tazobactam 3 200 .375 gm In Sodium Chloride 0.9% 100 ml @ 25 mls/hr IVPB Q8HR [facility] Rx# :[id number] Vancomycin 1,750 mg In 1000 Sodium Chloride 0.9% 500 ml 500 ml @ 167 mls/hr IVPB Q12H [facility] Rx#: [id number] Oral 120 Output: Urine 1305 1250 2295 Other: Voiding Method Indwelling Catheter Indwelling Catheter # Bowel Movements 1 1 - Exam Physical Exam Afebrile Abdomen is soft nontender. Less distended . Chest has good excursion deep and space expiration The incision site is clean dry and intact. No erythema. no active bleeding or drainage. He has no sensation below umbilicus and down through his legs. He is flaccid his bilateral lower extremities Calves and thighs were soft nontender without evidence of DVT. - Constitutional General appearance: Present: no acute distress - Labs CBC & Chem 7: 03/25/25 05:51 03/25/25 05:51 Labs: Abnormal Lab Results - Last 24 Hours (Table) 03/24/25 03/24/25 03/25/25 Range/Units 16:22 20:23 05:51 WBC 12.07 H (4.50-10.00) 10*3/uL RBC 3.74 L (4.40-5.60) 10*6/uL Hgb 10.9 L (13.0-17.0) g/dL Hct 32.3 L (39.6-50.0) % Immature Gran # 0.32 H (0.00-0.04) 10*3/uL Neutrophils # 10.19 H (1.80-7.70) 10*3/uL Lymphocytes # 0.62 L (0.90-5.00) 10*3/uL Eosinophils # 0.00 L (0.04-0.35) 10*3/uL Chloride (98-107) mmol/L BUN (9-20) mg/dL Glucose (74-99) mg/dL POC Glucose (mg/dL) 259 H 284 H (70-110) mg/dL ALT (4-49) U/L Total Protein (6.3-8.2) g/dL Albumin (3.5-5.0) g/dL 03/25/25 03/25/25 03/25/25 Range/Units 05:51 07:09 11:00 WBC (4.50-10.00) 10*3/uL RBC (4.40-5.60) 10*6/uL Hgb (13.0-17.0) g/dL Hct (39.6-50.0) % Immature Gran # (0.00-0.04) 10*3/uL Neutrophils # (1.80-7.70) 10*3/uL Lymphocytes # (0.90-5.00) 10*3/uL Eosinophils # (0.04-0.35) 10*3/uL Chloride 108 H (98-107) mmol/L BUN 32 H (9-20) mg/dL Glucose 255 H (74-99) mg/dL POC Glucose (mg/dL) 258 H 288 H (70-110) mg/dL ALT 59 H (4-49) U/L Total Protein 4.9 L (6.3-8.2) g/dL Albumin 2.5 L (3.5-5.0) g/dL Assessment and Plan (1) Cervical myelopathy Narrative/Plan: The patient appears to be stabilized with oxygen supplementation for his respiratory failure as he is sitting up in chair and conversing okay. The surgical site appears to be stable. Continue to increase the patient's mobilization with therapy. We will continue pain control as needed. He reports some new sensation in his groin area. He continues to have flaccid paralysis of his lower extremities and his paresthesia seems near complete below T8. We'll continue to follow patient closely. Current Visit: Yes Status: Acute Priority: High Code(s): G95.9 - DISEASE OF SPINAL CORD, UNSPECIFIED SNOMED Code(s): 552637230 Time with Patient: Less than 30
[2025-03-25 16:40] LABS: Glucose,Whole Blood 304 mg/dL (70-110)
[2025-03-25] MEDS: SEMAGLUTIDE 2 MG/0.75 ML SQ SCH (18:37)
[2025-03-25 19:53] LABS: Glucose,Whole Blood 318 mg/dL (70-110)
[2025-03-26 05:46] LABS: Glucose,Whole Blood 240 mg/dL (70-110)
[2025-03-26 06:09] LABS: HCT 32.5 % (39.6-50.0); HGB 11.3 g/dL (13.0-17.0); MCH 30.0 pg (27.0-32.0); MCHC 34.8 g/dL (32.0-37.0); MCV 86.2 fL (80.0-97.0); Platelet Count 234 10*3/uL (140-440); RBC 3.77 10*6/uL (4.40-5.60); RDW 13.2 % (11.5-14.5); WBC 13.31 10*3/uL (4.50-10.00)
[2025-03-26 06:25] LABS: African American GFR (CKD) >90 (>60 ml/min/1.73 sqM); Anion Gap 5 mmol/L; Blood Urea Nitrogen 31 mg/dL (9-20); Calcium 8.5 mg/dL (8.4-10.2); Carbon Dioxide 24 mmol/L (22-30); Chloride 110 mmol/L (98-107); Glucose 268 mg/dL (74-99); Magnesium 2.3 mg/dL (1.6-2.3); Non-African American GFR(CKD) >90 (>60 ml/min/1.73 sqM); Potassium 3.9 mmol/L (3.5-5.1); Sodium 139 mmol/L (137-145)
[2025-03-26] MEDS: INSULIN GLARGINE (LANTUS) 100 UNIT/ML SYR SQ SCH (06:36)
--- NOTE | 2025-03-26 08:06 | XR ---
EXAMINATION TYPE: XR chest 1V portable DATE OF EXAM: 03/26/2025 5:42 AM COMPARISON: 03/25/2025 CLINICAL INDICATION: Male, 64 years old with history of airvo/bipap, , FINDINGS: Posterior midline skin jarad with posterior cervical fusion and ACDF. There is now complete white o ut of the left hemithorax. Previous moderate to large left pleural effusion. IMPRESSION: Previous moderate to large left pleural effusion but now with COMPLETE WHITE OUT OF THE LEFT HEMITHOR AX. [facility], Workstation: [email or web address], 03/26/2025 8:03 AM
[2025-03-26 08:51] LABS: Lymphocytes # (M) 1.46 k/uL (1.0-4.8); Monocytes # (M) 0.53 k/uL (0-1.0); Neutrophils # (M) 11.31 k/uL (1.3-7.7); Neutrophils % (M) 85 %; Total Cells Counted 100
[2025-03-26 11:18] LABS: Glucose,Whole Blood 354 mg/dL (70-110)
--- NOTE | 2025-03-26 11:24 | P.PN ---
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 Wheeler) approximately 2 months ago, migraine headaches, depression. Presented to the emergency department with a chief complaint of sudden onset numbness extending from periumbilical region downwards throughout groin and bilateral lower extremities followed by weakness of bilateral lower extremities. Patient states he was moving some plants at home when he had sudden onset of numbness around his lower abdomen circling around him like a belt that quickly radiated into his groin and into bilateral lower extremities accompanied by weakness of bilateral lower extremities which resulted in his legs giving out from beneath him causing him to fall to the ground. Patient denied having any dizziness or lightheadedness, headache, neck or back pain, or experiencing any pain in his abdomen, groin, or lower extremities. He denies hitting his head during the fall and denies having any loss of consciousness. But reports due to the sudden onset numbness and weakness he was unable to stand back up and had to have his call EMS for transfer to the hospital. Upon arrival to our facility, patient underwent evaluation in the emergency department. Vital signs upon arrival show blood pressure 165/97, heart rate 88, respiratory rate 18, temp 98.8 F, and SpO2 of 97% on room air. CT lumbar spine CT abdomen and pelvis was also negative for acute intra-abdominal process completed showing no evidence for spinal fracture, no evidence for significant spinal canal stenosis revealing severe right L5-S1 neuroforaminal stenosis and moderate bilateral L4-L5 neuroforaminal stenosis, revealing a right middle lobe pulmonary nodule 8 mm, prostamegaly, colonic diverticulosis, and bilateral adrenal myolipoma's. Labs completed and reviewed. CBC unremarkable. BMP showing hyperglycemia with blood glucose of 146. Liver profile normal findings. Urinalysis positive for glucose and ketones but negative for infection. Patient was admitted under services with consultation to neurology and orthospine surgery. MRI lumbar spine was completed showing no definitive evidence of disc herniation or significant spinal canal stenosis revealing minimal disc degeneration with associated osteoarthritic changes. Patient underwent extensive cervical spinal surgery on the evening of 03/20/2025 through 03/21/2025. Subjective: Patient was seen and examined at bedside in ICU. No acute events overnight. Patient does report having sensation around his umbilicus. Continues to report bilateral lower extremity weakness and numbness. Denies chest pain, shortness of breath, nausea or vomiting, abdominal pain. Pertinent positives and negatives as discussed above, a complete review of systems was performed and all other systems are negative. Vitals: Signs Reviewed Physical Exam: General: nontoxic, no distress, appears at stated age Derm: warm, dry, intact, dressing noted at the back of neck with no signs of drainage or bleeding. Head: atraumatic, normocephalic, symmetric Eyes: EOMI, anicteric sclera Mouth: no lip lesion, mucus membranes moist Cardiovascular: S1 S2 reg, no murmur, rubs, or gallops Lungs: CTA bilateral, no rhonchi, no rales, no accessory muscle use Abdominal: soft, non-tender to palpataion, no appreciable organomegaly Extremities: no gross muscle atrophy, no edema, no contractures, patient is unable to move bilateral lower extremity Neuro: Alert, Oriented, CNII-XII grossly intact, gait normal Psych: well appearing, appropriate affect Data Received Today: Pertinent Labs: WBC 13.3, hemoglobin 11.3, hematocrit 32.5, platelet 234, neutrophils 0.82, sodium 139, potassium 3.9, chloride 110, BUN 31, creatinine 0.77, glucose from 268-354, calcium 8.5, magnesium 2.3 Imaging: Bilateral lower extremity Doppler ultrasound showed negative for DVT Chest x-ray on 03/25/2025 showed no change in no acute cardiopulmonary process involving the left lower lobe as described Chest ultrasound showed no evidence of pleural effusion bilaterally. Chest x-ray on 03/26/2025 showed previous moderate to large left pleural effusion but now with complete whiteout of the left hemithorax. Assessment and Plan: Suspected hematoma in the posterior soft tissues along the length of the skin jarad Acute spinal cord injury resulting in severe spinal canal stenosis involving C7- T1 Status post extensive cervical decompression with discectomy at C7-T1 and fusion with extension of fusion from C3-C7 with new extension down to T3 Acute onset of bilateral lower extremity numbness and weakness Abdominal and periumbilical/suprapubic and groin numbness Severe right L5-S1 neuroforaminal stenosis Moderate bilateral L4-L5 neuroforaminal stenosis - Orthopedic surgery following status post extensive cervical decompression with dissecting at C7-T1 and fusion with extension of fusion from C3-C7 with new extension down to T3 - Continue inpatient rehab - Continue to hold aspirin and blood pressure medicine due to suspected hematoma - Continue neurochecks every 4 hours and as needed. - Continue IV steroids with Solu-Medrol 100 mg IVP every 6 hours. - Maintain fall precautions - Continue Samuels catheter management - Continue Unna boot bilaterally to prevent foot drop - PT/OT following - Reviewed neurology consult note. Neurology recommends ID consultation. Continue folate replacement. Bilateral lower extremity edema Bilateral lower extremity Doppler ultrasound negative for DVT Dyspnea with leukocytosis, likely secondary to postoperative atelectasis of the left lower lobe versus pneumonia CT angio of chest shows markedly progressive left lung volume loss with marked atelectasis increasing suspicion for endobronchial obstruction/neoplasm and further evaluation may be indicated. Interval development of mild right lower lobe atelectasis. Continue DuoNebs 4 times daily and every 2 hours as needed Encourage incentive spirometry Continue vancomycin, Zosyn Patient will possibly be undergoing a bronchoscopy today Type II dez-vtrtspp-egwloexze diabetes mellitus with hyperglycemia -Hyperglycemia likely secondary to high-dose steroids being administered at this time. Will continue glycemic protocol with Humalog sliding scale. Currently blood glucose ranging to 240-268. - Increase Lantus to 35 units subcu daily as basal insulin Continue Humalog 4 units with subcu AC 3 times daily Hypotension - Hold blood pressure medicine Hyperlipidemia - Continue daily medication regimen with atorvastatin 40 mg nightly Obstructive sleep apnea - Continue CPAP nightly and while napping. CODE STATUS: Full code DVT prophylaxis: Lovenox 40 mg subcu daily Discussed with: Patient and orthospine surgeon Anticipated discharge date: Pending clinical course Anticipated discharge place: Pending clinical course I saw and evaluated the patient during the morgan and critical portions of this encounter, and discussed the case in detail with the resident author of this note, I agree with the Assessment and Plan, and my changes, if any, are highlighted in blue. Patient remained stable, but has complete atelectasis of left side of lung today due to mucous plugging. Discussed the case with nursing at bedside, patient is boarded for bronchoscopy for which she will be intubated and given 24 hours of rest to reassure no repeat plugging prior to extubation. Objective - Vital Signs Vital signs: Vital Signs Temp 98.0 F 03/26/25 04:00 Pulse 74 03/26/25 06:00 Resp 20 03/26/25 06:00 BP 146/77 03/26/25 06:00 Pulse Ox 94 L 03/26/25 05:00 FiO2 80 03/26/25 04:16 Intake & Output 03/25/25 03/25/25 03/26/25 06:59 18:59 06:59 Intake Total 1925 2100 1600 Output Total 1250 2945 1570 Balance 675 -845 30 Weight 104.6 kg 105.7 kg Intake: IV 925 2100 1600 Piperacillin-Tazobactam 3 100 200 200 .375 gm In Sodium Chloride 0.9% 100 ml @ 25 mls/hr IVPB Q8HR [facility] Rx# :[id number] Sodium Chloride 0.9% 1, 825 900 900 000 ml @ 75 mls/hr IV . [id number] [facility] Rx#:[id number] Vancomycin 1,500 mg In 500 Sodium Chloride 0.9% 500 ml 500 ml @ 167 mls/hr IVPB Q12H [facility] Rx#: [id number] Vancomycin 1,750 mg In 500 500 Sodium Chloride 0.9% 500 ml 500 ml @ 167 mls/hr IVPB Q12H [facility] Rx#: [id number] Intake, IV Titration 1000 Amount Vancomycin 1,750 mg In 1000 Sodium Chloride 0.9% 500 ml 500 ml @ 167 mls/hr IVPB Q12H [facility] Rx#: [id number] Output: Urine 1250 2945 1570 Other: Voiding Method Indwelling Catheter Indwelling Catheter Indwelling Catheter # Bowel Movements 1 - Labs CBC & Chem 7: 03/26/25 05:17 03/26/25 05:17 Labs: Abnormal Lab Results - Last 24 Hours (Table) 03/25/25 03/25/25 03/25/25 Range/Units 07:09 11:00 16:38 Chloride (98-107) mmol/L BUN (9-20) mg/dL Glucose (74-99) mg/dL POC Glucose (mg/dL) 258 H 288 H 304 H (70-110) mg/dL 03/25/25 03/26/25 03/26/25 Range/Units 19:52 05:17 05:45 Chloride 110 H (98-107) mmol/L BUN 31 H (9-20) mg/dL Glucose 268 H (74-99) mg/dL POC Glucose (mg/dL) 318 H 240 H (70-110) mg/dL
--- NOTE | 2025-03-26 11:28 | P.PN ---
Subjective Progress Note Date: 03/26/25 Principal diagnosis: Acute hypoxic respiratory failure with left lower lobe atelectasis, pneumonia, and left lung collapse/opacification. This is a 64-year-old male patient was undergone a C 7 T1 discectomy, done posteriorly with wide laminectomy and foraminotomy and partial facetectomy. The patient was experiencing cervical myelopathy with severe bilateral lower extremity weakness and T8 paresthesia. The patient has previous history of cervical spine fusion C2-C7. The patient was found to have a large herniated disc C7-T1 with severe spinal cord stenosis and based on that the patient was taken to the operating room and underwent a C7-T1 discectomy on 03/21/2025. The patient has become progressively more hypoxic. Currently he is on Airvo at 60 L and FiO2 of 90%. His current pulse ox is in order of 90 to 93%. Slightly tachycardic. Blood pressure is also soft at 89/62. Based on worsening hypoxemia, CT of the chest was done and the patient was found to have s ignificant volume loss in the left lung compared to the right. There is marked volume loss and atelectasis in addition to an area of consolidation in the left upper lobe and elevation of the left hemidiaphragm in addition to significant gastric distention. The patient has dilated air in the stomach and colon. Blood work shows a white cell count of 14, hemoglobin 12.4 and a platelet count of 175. Sodium levels at 137, bicarb is at 23, potassium level is at 4.3 with a chloride of 102. BUN 23 with a creatinine of 0.9. The patient is resting comfortably in bed. He is wearing a hard neck collar. He is reporting some mild shortness of breath even at rest. He is tolerating the Airvo. He is currently on IV Solu-Medrol 100 mg every 6 hours post neck surgery. He is also on IV fluids with l normal saline at rate of 75 cc an hour. Comorbidities include hypertension, hyperlipidemia, diabetes mellitus type 2, obstructive sleep apnea maintained on CPAP therapy on outpatient basis On today's evaluation of 03/23/25, patient is still on the BiPAP pressure of 14 over 6 cm of water and FiO2 has been weaned down to 65%. The patient's abdomen seems to be less distended. He had 2 bowel movements and the patient is also passing flatus. Fluid balance +223 cc over the past 24 hours and the patient remains on normal saline at a rate of 75 cc an hour. Neurologically, unchanged and the patient has absent motor function lower extremities bilaterally. He is on broad-spectrum antibiotics and the patient is currently on Zosyn vancomycin combination. Follow-up chest x-ray shows some interval improvement in aeration in the left lung base. Lung volumes in the left remain small and there is some ongoing atelectatic change at left lower lobe. The patient's white cell count is 11, hemoglobin 11.3 and a platelet count of 180. Electrolytes are all within normal limits. BUN is 40 with a creatinine of 1.05. The patient is able to communicate. He is alert and awake. Denies having any specific complaints. Still wearing a hard neck collar. 03/24/2025, the patient is laying flat in bed and is currently on a BiPAP at a pressure of 14/6 with an FiO2 of 75% overnight and Airvo during the day. He remains on normal saline at rate of 75 cc an hour. Chest x-ray still showing left lower lobe consolidation. Abdomen is soft. He had 3 bowel movements. He is on Lantus insulin. The patient's mentation is awake and alert. Nevertheless, he continues to have profound weakness in the lower extremity and he remains paraplegic. Remains on IV Solu-Medrol. Blood sugars are elevated and he remains on Lantus 15 units daily and NovoLog sliding scale coverage. The white cell count 11.9, hemoglobin 11.3 and a platelet count of 201. BUN 34 with a creatinine of 0.8. Sodium levels at 136. Blood sugars up to 82. He is postop day #4 following an open decompression and fusion of C7-T1 surgery was done due to a large disc herniation and spinal cord injury. He is also status post fusion and extension from prior fusion C2-7 and near extension fusion down to T3. He is unable to move his legs still. Samuels catheter still in place. Using incentive spirometer. Afebrile. 03/25/2025, the patient is being seen for a follow-up. Repeat chest x-ray was done and shows ongoing volume loss and atelectasis in the left lung base. I also performed an ultrasound of the chest and there is no sizable pleural effusion for thoracentesis. Findings are more consistent with consolidation/atelectasis. Remains on Airvo at 60 L and FiO2 of 90%. Incentive spirometer. Overnight, using BiPAP pressure of 14/6 and use of water with an FiO2 of 80%. Remains in normal Saint rate of 75 cc an hour. Fluid balance is +550 cc over the past 24 hours. No respiratory difficulties. The white cell count of 12. Hemoglobin is 10.9. Platelet count is 210. BUN is 32 with a creatinine of 0.8. Sodium levels at 138 and potassium levels of 4.2. Remains on Zosyn and vancomycin. Neurologically unchanged and the patient continues to be paraplegic. Patient was seen today on 03/27/2025, patient remains in the ICU, he is on Airvo at 90% and 60 L flow, patient is generally weak, alert and appropriate, IV fluid at 75 cc/h, continues to have weakness from the waist down. Patient had cervical spine surgery postoperative day #6. Chest x-ray showed complete opacification of the left lung consistent with mucous plugging involving the left mainstem bronchus. Hence I discussed this with the patient today, patient needs to be bronchoscope, needs to have extraction of mucous plugs. Considering the patient is marginal at best, will need to be intubated and placed on mechanical ventilation for the procedure. Based on the findings we will decide whether the patient needs to remain on mechanical ventilation after bronchoscopy or not. Most likely he will remain ventilated after the bronchoscopy. Patient has a bit of leukocytosis with WBC of 13.3 hemoglobin 11.3 electrolytes are normal renal profile is normal. Nasal screen has been positive for MSSA not MRSA. Objective - Vital Signs Vital signs: Vital Signs Temp 98.0 F 03/26/25 04:00 Pulse 86 03/26/25 09:00 Resp 17 03/26/25 09:00 BP 138/123 03/26/25 09:00 Pulse Ox 93 L 03/26/25 09:00 FiO2 90 03/26/25 09:00 Intake & Output 03/25/25 03/26/25 03/26/25 18:59 06:59 18:59 Intake Total 2100 1675 150 Output Total 2945 1670 200 Balance -845 5 -50 Weight 105.7 [place]: [place] [address] 150 Piperacillin-Tazobactam 3 200 200 .375 gm In Sodium Chloride 0.9% 100 ml @ 25 mls/hr IVPB Q8HR [facility] Rx# :[id number] Sodium Chloride 0.9% 1, 900 975 150 000 ml @ 75 mls/hr IV . [id number] [facility] Rx#:[id number] Vancomycin 1,500 mg In 500 Sodium Chloride 0.9% 500 ml 500 ml @ 167 mls/hr IVPB Q12H [facility] Rx#: [id number] Vancomycin 1,750 mg In 500 500 Sodium Chloride 0.9% 500 ml 500 ml @ 167 mls/hr IVPB Q12H [facility] Rx#: [id number] Output: Urine 2945 1670 200 Other: Voiding Method Indwelling Catheter Indwelling Catheter - Exam General: Reveals 64-year-old white male in no distress on Airvo looks comfortable. On Airvo at 90% and 60 L flow Derm: warm, dry, intact, dressing noted at the back of neck with no signs of drainage or bleeding. Head: atraumatic, normocephalic, symmetric Eyes: EOMI, anicteric sclera Mouth: Moist mucous membranes, no evidence of lesions Cardiovascular: S1 S2 reg, no murmur, rubs, or gallops Lungs: Extremely diminished breath sounds on the left side, right side is relatively clear Abdominal: soft, a bowel sounds are present in the patient's abdomen is obvious less tympanic compared to yesterday. Extremities: no gross muscle atrophy, no edema, no contractures, patient is unable to move bilateral lower extremity Neuro: Alert, Oriented, CNII-XII grossly intact, gait cannot be assessed as the patient has absent motor function lower extremities bilaterally patient has bilateral foot drop. Reflexes are diminished. No Babinski. No clonus. Psych: Normal mood, affect and no mental status examination. - Labs CBC & Chem 7: 03/26/25 05:17 03/26/25 05:17 Labs: Abnormal Lab Results - Last 24 Hours (Table) 03/25/25 03/25/25 03/26/25 Range/Units 16:38 19:52 05:17 WBC 13.31 H (4.50-10.00) 10*3/uL RBC 3.77 L (4.40-5.60) 10*6/uL Hgb 11.3 L (13.0-17.0) g/dL Hct 32.5 L (39.6-50.0) % Immature Gran # 0.82 H (0.00-0.04) 10*3/uL Neutrophils # (Manual) 11.31 H (1.3-7.7) k/uL Chloride (98-107) mmol/L BUN (9-20) mg/dL Glucose (74-99) mg/dL POC Glucose (mg/dL) 304 H 318 H (70-110) mg/dL 03/26/25 03/26/25 03/26/25 Range/Units 05:17 05:45 11:17 WBC (4.50-10.00) 10*3/uL RBC (4.40-5.60) 10*6/uL Hgb (13.0-17.0) g/dL Hct (39.6-50.0) % Immature Gran # (0.00-0.04) 10*3/uL Neutrophils # (Manual) (1.3-7.7) k/uL Chloride 110 H (98-107) mmol/L BUN 31 H (9-20) mg/dL Glucose 268 H (74-99) mg/dL POC Glucose (mg/dL) 240 H 354 H (70-110) mg/dL Assessment and Plan Assessment: Impression: Acute hypoxic respiratory failure Left-sided atelectasis and now complete opacification of the left lung most likely secondary to mucous plugging, this was initially a left lower lobe atelectasis/pneumonia that progressed and now the whole left lung is collapsed. Severe spinal canal stenosis at C7-T1 status post discectomy and decompression and fusion patient is now postoperative day #6 Obstructive sleep apnea syndrome on CPAP normally Type 2 diabetes Hypotension could be related to sepsis could also be neurogenic post spinal surgery Dyslipidemia Bilateral lower extremities weakness related to his spinal issues/cervical/thoracic spine issues T8 paresthesia History of severe L5-S1 neuroforaminal stenosis Recommendation: Continue to monitor in the ICU Continue antibiotics, Zosyn and vancomycin Plan to bronchoscope the patient and extract mucous plugs from the left mainstem bronchus with the patient intubated may keep the patient intubated after bronchoscopy Continue pain control Continue Samuels catheter in place Continue updrafts Incentive spirometry Prognosis is relatively guarded Will continue to follow Time with Patient: Less than 30
--- NOTE | 2025-03-26 12:14 | P.PN ---
Subjective Progress Note Date: 03/26/25 This is a 64 year old male who is status post open decompression and fusion C7- T1. This is postoperative day #6 and patient is seen and evaluated in the ICU today. Patient states that he hasn't noticed any change in the lower extremities, but states that he has to have a procedure for a collapsed left lung today. Objective - Vital Signs Vital signs: Vital Signs Temp 98.0 F 03/26/25 04:00 Pulse 80 03/26/25 11:53 Resp 18 03/26/25 11:00 BP 142/80 03/26/25 11:00 Pulse Ox 94 L 03/26/25 11:00 FiO2 90 03/26/25 11:53 Intake & Output 03/25/25 03/26/25 03/26/25 18:59 06:59 18:59 Intake Total 2100 1675 300 Output Total 2945 1670 475 Balance -845 5 -175 Weight 105.7 kg 105.7 kg Intake: IV 2100 1675 300 Piperacillin-Tazobactam 3 200 200 .375 gm In Sodium Chloride 0.9% 100 ml @ 25 mls/hr IVPB Q8HR [facility] Rx# :[id number] Sodium Chloride 0.9% 1, 900 975 300 000 ml @ 75 mls/hr IV . [id number] [facility] Rx#:[id number] Vancomycin 1,500 mg In 500 Sodium Chloride 0.9% 500 ml 500 ml @ 167 mls/hr IVPB Q12H [facility] Rx#: [id number] Vancomycin 1,750 mg In 500 500 Sodium Chloride 0.9% 500 ml 500 ml @ 167 mls/hr IVPB Q12H [facility] Rx#: [id number] Output: Urine 2945 1670 475 Other: Voiding Method Indwelling Catheter Indwelling Catheter Indwelling Catheter - Exam On exam patient is sitting up in bed with hard collar intact. Patient is alert and oriented 3. No sensation around his umbilicus and down through his legs. Flaccid bilateral lower extremities. - Labs CBC & Chem 7: 03/26/25 05:17 03/26/25 05:17 Labs: Abnormal Lab Results - Last 24 Hours (Table) 03/25/25 03/25/25 03/26/25 Range/Units 16:38 19:52 05:17 WBC 13.31 H (4.50-10.00) 10*3/uL RBC 3.77 L (4.40-5.60) 10*6/uL Hgb 11.3 L (13.0-17.0) g/dL Hct 32.5 L (39.6-50.0) % Immature Gran # 0.82 H (0.00-0.04) 10*3/uL Neutrophils # (Manual) 11.31 H (1.3-7.7) k/uL Chloride (98-107) mmol/L BUN (9-20) mg/dL Glucose (74-99) mg/dL POC Glucose (mg/dL) 304 H 318 H (70-110) mg/dL 03/26/25 03/26/25 03/26/25 Range/Units 05:17 05:45 11:17 WBC (4.50-10.00) 10*3/uL RBC (4.40-5.60) 10*6/uL Hgb (13.0-17.0) g/dL Hct (39.6-50.0) % Immature Gran # (0.00-0.04) 10*3/uL Neutrophils # (Manual) (1.3-7.7) k/uL Chloride 110 H (98-107) mmol/L BUN 31 H (9-20) mg/dL Glucose 268 H (74-99) mg/dL POC Glucose (mg/dL) 240 H 354 H (70-110) mg/dL Assessment and Plan Assessment: Acute spinal cord injury with flaccid paralysis bilateral lower extremities Postoperative day #6 status post open decompression and fusion C7-T1 due to large disc herniation C7-T1 with spinal cord injury Status post fusion with extension from prior fusion C2-C7 with new extension of fusion down to T3 Acute respiratory failure being managed with critical care. Patient undergoing bronchoscopy today for collapsed left lung. Plan: Maintain c collar. The surgical site appears stable. Patient is having a bronchoscopy today for collapsed left lung. We'll continue to follow patient closely. The patient is seen and examined today at bedside. He is intubated and parti ally sedated. He is arousable at bedside will open his eyes and give a thumbs up bilaterally. He is still moving his arms simple commands. I spoke with the nurse regarding his care and his issues over the past 2 days. He had to have a bronchoscopy and get intubated as he had severe mucous plugs t hroughout the left side. They are considering further bronc and possible weaning the vent as able. His neurologic condition is not changing in terms of his lower extremities and upper extremities. He is still not having any sensation or motion at around T8 and below. He has a Samuels intact. Apparently he had reports of some tingling sensation around his perineum and over his belly yesterday but it was short- lived. He is essentially a T8 complete and seems to have issues with his left diaphragm causing his lung issues. He has severe mucous plugging and respiratory failure. He is currently on vent as per critical care and they will continue management in terms of his severe mucous plugging, left lung issues and respiratory status. He will maintain his cervical collar. His surgical site appears stable. I had a long talk with his again this evening over the phone and I tried to answer questions best my ability. Will continue to follow closely.
--- NOTE | 2025-03-26 12:52 | P.PN ---
Subjective Progress Note Date: 03/26/25 I am following-up with the patient and he continues to be about the same. Denies any improvement in his symptoms. Denies any new neurological issues. He is going for bronchoscopy today and likely to intubated for it per nurse. Objective - Vital Signs Vital signs: Vital Signs Temp 98.0 F 03/26/25 04:00 Pulse 86 03/26/25 12:06 Resp 17 03/26/25 12:00 BP 172/86 03/26/25 12:00 Pulse Ox 94 L 03/26/25 12:00 FiO2 90 03/26/25 12:00 Intake & Output 03/25/25 03/26/25 03/26/25 18:59 06:59 18:59 Intake Total 2100 1675 375 Output Total 2945 1670 635 Balance -845 5 -260 Weight 105.7 kg 105.7 kg Intake: IV 2100 1675 375 Piperacillin-Tazobactam 3 200 200 .375 gm In Sodium Chloride 0.9% 100 ml @ 25 mls/hr IVPB Q8HR [facility] Rx# :[id number] Sodium Chloride 0.9% 1, 900 975 375 000 ml @ 75 mls/hr IV . [id number] [facility] Rx#:[id number] Vancomycin 1,500 mg In 500 Sodium Chloride 0.9% 500 ml 500 ml @ 167 mls/hr IVPB Q12H [facility] Rx#: [id number] Vancomycin 1,750 mg In 500 500 Sodium Chloride 0.9% 500 ml 500 ml @ 167 mls/hr IVPB Q12H [facility] Rx#: [id number] Output: Urine 2945 1670 635 Other: Voiding Method Indwelling Catheter Indwelling Catheter Indwelling Catheter - Exam General: Lying in bed and is not in acute distress. Neuro: Patient is awake alert oriented to self place and time. Does follow simple commands. No aphasia. No facial weakness. No dysarthria Motor: Upper extremity are 5 out of 5, while lowers is 0 out of 5 bilaterally. - Labs CBC & Chem 7: 03/26/25 05:17 03/26/25 05:17 Labs: Abnormal Lab Results - Last 24 Hours (Table) 03/25/25 03/25/25 03/26/25 Range/Units 16:38 19:52 05:17 WBC 13.31 H (4.50-10.00) 10*3/uL RBC 3.77 L (4.40-5.60) 10*6/uL Hgb 11.3 L (13.0-17.0) g/dL Hct 32.5 L (39.6-50.0) % Immature Gran # 0.82 H (0.00-0.04) 10*3/uL Neutrophils # (Manual) 11.31 H (1.3-7.7) k/uL Chloride (98-107) mmol/L BUN (9-20) mg/dL Glucose (74-99) mg/dL POC Glucose (mg/dL) 304 H 318 H (70-110) mg/dL 03/26/25 03/26/25 03/26/25 Range/Units 05:17 05:45 11:17 WBC (4.50-10.00) 10*3/uL RBC (4.40-5.60) 10*6/uL Hgb (13.0-17.0) g/dL Hct (39.6-50.0) % Immature Gran # (0.00-0.04) 10*3/uL Neutrophils # (Manual) (1.3-7.7) k/uL Chloride 110 H (98-107) mmol/L BUN 31 H (9-20) mg/dL Glucose 268 H (74-99) mg/dL POC Glucose (mg/dL) 240 H 354 H (70-110) mg/dL Assessment and Plan Assessment: * Acute paraparesis, with left leg much weaker than the right. Patient has a sensory level at T8. MRI of the cervical spine revealed large disc herniation at C7-T1 producing severe spinal canal stenosis with probable myelomalacia. * Status post C7-T1 discectomy for decompression with wide laminectomy, foraminotomy and partial facetectomy 03/21/2025. Patient strength has got much worse postsurgery, now complete paraplegic. * Seroma in the posterior soft tissues along the length of the skin jarad, spinal surgeries following * Acute hypoxic respiratory failure, possible pneumonia. Postoperative atelectasis. * Abdominal distention/ileus. * Urinary retention, likely due to spinal stenosis. * History of cervical spinal fusion C3-C7 in 2017 * Diabetes * Hyperlipidemia * Obstructive sleep apnea Plan: * CT of the cervical spine without contrast 03/22/2025 revealed interval surgery with C7-T1 laminectomy at the site of cord compression seen on MRI. Posterior midline skin jarad as well as air and postoperative fluid/suspected seroma in the posterior soft tissues along the entire length of the skin jarad. Note that this area spans approximately 13 cm craniocaudal. Posterior fusion changes now extended down to T3 level (previously down to C7 level). The previous C4 C7 ACDF remains in place. Revision of the posterior fusion hardware on the right now to extend from C5 rather than C2. * CT of thoracic spine revealed C7-T1 laminectomy and posterior fusion extending down to the T3 level described above. No vertebral compression collapse or malalignment. * I would defer need for repeat MRI of the cervical spine to orthopedic surgery. Per orthopedic team his weakness is due to edema post surgery and within 12 weeks hopefully improvement. * Patient on methylprednisolone 100 mg every 6 hours. * No further fevers. Currently on vancomycin and Zosyn. Suggest ID consul tation. * He has lung collapse and he is going for bronchoscopy today. * MRI of the cervical spine 03/19/2025 reveals severe spinal canal stenosis secondary to disc osteophyte complex at the level of C7 and T1 possibly related to altered mechanics. There is mild cord edema. Neurosurgical consultation recommended. Postsurgical changes from C2-C7. Degeneration with moderate right C5-C6 and moderate left C6-C7 neural foraminal stenosis secondary to disc osteophyte complexes. I personally reviewed MRI, agree with the findings. * Orthopedic spine on board, and patient undergoing decompressive surgery later this evening. * MRI thoracic spine 03/20/2025 revealed no evidence of significant spinal canal stenosis. Mild degenerative changes. I personally reviewed MRI agree with the findings. * MRI of the lumbar spine 03/19/2025, revealed no definitive evidence of disc herniation or significant spinal canal stenosis. Minimal disc degeneration with associated osteoarthritic changes. I personally reviewed MRI, agree with the findings. * B12 685, folate 8.3. Continue folate replacement. * Other medical management as per IM, critical care and other specialties on board. * DVT prophylaxis: Patient on SCDs. Suggest adding heparin subcu if no surgical contraindications, as patient is high risk. There is no further neurological work-up. Will sign off. Please reconsult if needed. Time with Patient: Less than 30
[2025-03-26] MEDS: hydrALAZINE HCL 20 MG/ML 1 ML VIAL IVP PRN (15:12)
[2025-03-26] MEDS ORDERED: ROCURONIUM 10 MG/ML (5 ML VIAL) IV ONE (15:29)
[2025-03-26] MEDS ORDERED: PROPOFOL 10 MG/ML 20 ML VIAL IV ONE (15:29)
[2025-03-26] MEDS ORDERED: MIDAZOLAM 2 MG/2 ML VIAL ONE (15:29)
[2025-03-26] MEDS ORDERED: LIDOCAINE 1% INJ 10MG/ML (20 ML MDV) ONE (15:29)
[2025-03-26] MEDS ORDERED: SUCCINYLCHOLINE CHLORIDE 200 MG/10 ML VIAL IV ONE (15:29)
[2025-03-26] MEDS: IV FLUID CONTINUATION 1,000 ML IV ONE ×2 (15:37→15:57)
[2025-03-26 16:11] LABS: Glucose,Whole Blood 249 mg/dL (70-110)
--- NOTE | 2025-03-26 16:33 | XR ---
EXAMINATION TYPE: XR chest 1V portable DATE OF EXAM: 03/26/2025 CLINICAL INDICATION: Male, 64 years old with history of Tube placement, progress study. TECHNIQUE: Single AP portable upright view of the chest is obtained. COMPARISON: Chest x-ray from earlier today. FINDINGS: There is no endotracheal tube terminating at aortic knob level approximately 2.0 cm above the aisha. There is improved aeration in the left upper to mid lung with persistent left basilar opacity. Stable right lower lung linear atelectasis. Persistent cardiomegaly. Extensive surgical change to the cervi naomi thoracic spine is redemonstrated. IMPRESSION: 1. New endotracheal tube is satisfactory in position. 2. Improved aeration left upper to midlung. Persistent cardiomegaly with small left pleural effusion and left lower lung acute infiltrate and/or atelectasis. [facility], , 03/26/2025 4:31 PM
[2025-03-26 16:43] LABS: ABG HCO3 24 mmol/L (21-25); ABG PCO2 38 mmHg (35-45); ABG PH 7.40 (7.35-7.45); ABG PO2 106 mmHg (83-108); ABG TCO2 25 mmol/L (19-24); Allen Test Performed? Yes
[2025-03-26] MEDS ORDERED: Potassium Replacement Protocol 1 EACH MISC MISCELLANE PRN (17:19)
[2025-03-26] MEDS: VANCOMYCIN TROUGH DUE 1 EACH MISC MISCELLANE ONE (17:29)
[2025-03-26] MEDS: POTASSIUM CHLORIDE 10 MEQ in WATER FOR INJECTION 1 100ML.BAG IVPB SCH (17:34)
[2025-03-26] MEDS: CHLORHEXIDINE GLUCONATE 15 ML CUP MUCOUS MEM SCH (20:23)
[2025-03-26 20:30] LABS: Glucose,Whole Blood 251 mg/dL (70-110)
--- NOTE | 2025-03-26 22:28 | OP ---
OPERATIVE REPORT DATE OF SERVICE : PREOPERATIVE DIAGNOSIS: Left lung collapse secondary to mucus plugging involving the left mainstem bronchus. POSTOPERATIVE DIAGNOSIS: Left lung collapse secondary to mucus plugging involving the left mainstem bronchus. OPERATION: Bronchoscopy, extraction of mucus plugs from the left mainstem bronchus, bronchoalveolar lavage of the left upper lobe lingula and left lower lobe, until all secretions and mucus plugs have been extracted and suction. ANESTHESIA USED: General anesthesia. NARRATIVE: The patient was brought into the bronchoscopy suite, he was intubated by DIE CUTTER APPRENTICE, connected to mechanical ventilation, we monitored his O2 saturation continuously. Blood pressure was intermittently monitored, cardiac rhythm was continuously monitored. Then, the bronchoscope was advanced through the adapter to the endotracheal tube, and as we reached the distal end of the endotracheal tube, I was able to visualize mucous plugging in the left mainstem bronchus. The right side was examined. There were hardly any secretions on the right side, but the left side clearly showed mucus plugging, thick tenacious mucoid secretions noted in the left mainstem bronchus. I had to change the bronchoscope because it kept plugging my channel. Went to a larger size bronchoscope, and I was able to suction all the mucus plugs from the left mainstem bronchus, and I performed lavage of the left upper lobe lingula and left lower lobe until all secretions were cleared. No bleeding was in countered. All secretions were suctioned and sent for different diagnostic studies/cultures. Procedure was well tolerated, no complications, the patient will be kept on mechanical ventilation tonight until tomorrow and will decide based on chest x-ray in a.m. We will continue to follow. MMODL / IJN: [id number] /
[2025-03-27 04:42] LABS: Appearance,BF Turbid (Clear)
[2025-03-27 05:37] LABS: ABG HCO3 23 mmol/L (21-25); ABG PCO2 37 mmHg (35-45); ABG PH 7.41 (7.35-7.45); ABG PO2 84 mmHg (83-108); ABG TCO2 25 mmol/L (19-24); Allen Test Performed? Yes
[2025-03-27 06:15] LABS: Glucose,Whole Blood 259 mg/dL (70-110)
[2025-03-27 06:21] LABS: ALT 88 U/L (4-49); AST 30 U/L (17-59); African American GFR (CKD) >90 (>60 ml/min/1.73 sqM); Albumin 2.3 g/dL (3.5-5.0); Alkaline Phosphatase 47 U/L (38-126); Anion Gap 6 mmol/L; Blood Urea Nitrogen 29 mg/dL (9-20); Calcium 8.4 mg/dL (8.4-10.2); Carbon Dioxide 23 mmol/L (22-30); Chloride 110 mmol/L (98-107); Glucose 262 mg/dL (74-99); Non-African American GFR(CKD) >90 (>60 ml/min/1.73 sqM); Potassium 4.1 mmol/L (3.5-5.1); Sodium 139 mmol/L (137-145); Total Protein 4.6 g/dL (6.3-8.2)
--- NOTE | 2025-03-27 07:34 | XR ---
EXAMINATION TYPE: XR chest 1V portable DATE OF EXAM: 03/27/2025 5:15 AM COMPARISON: 03/26/2025 CLINICAL INDICATION: Male, 64 years old with history of Tube placement, , FINDINGS: ET tube satisfactory. Posterior cervical fusion hardware of posterior midline skin jarad. Patient i s obliqued and rotated towards the left altering the normal cardiac and mediastinal contours. Heart n ormal size. [id number] left pleural effusion shows slight decrease in the interval. IMPRESSION: Small to moderate left pleural effusion with adjacent atelectasis and/or consolidation, partially imp roved from prior. [facility], Workstation: [facility], 03/27/2025 7:31 AM
[2025-03-27 08:04] LABS: HCT 31.8 % (39.6-50.0); HGB 10.8 g/dL (13.0-17.0); MCH 30.2 pg (27.0-32.0); MCHC 34.0 g/dL (32.0-37.0); MCV 88.8 fL (80.0-97.0); Platelet Count 236 10*3/uL (140-440); RBC 3.58 10*6/uL (4.40-5.60); RDW 13.7 % (11.5-14.5); WBC 14.48 10*3/uL (4.50-10.00)
[2025-03-27] MEDS: VANCOMYCIN 2,000 MG in SODIUM CHLORIDE 0.9% 500 ML 500 ML IVPB SCH (08:07)
--- NOTE | 2025-03-27 08:55 | P.PN ---
Subjective Progress Note Date: 03/27/25 Hospital Course: Patient is a pleasant 64-year-old male with a past medical history of hypertension, hyperlipidemia, type II mze-wshhqgs-fveatztpi diabetes mellitus, involuntary limb muscle fasciculations/movements on Mirapex and last seen neurologist (Dr. Wheeler) approximately 2 months ago, migraine headaches, depression. Presented to the emergency department with a chief complaint of sudden onset numbness extending from periumbilical region downwards throughout groin and bilateral lower extremities followed by weakness of bilateral lower extremities. Patient states he was moving some plants at home when he had sudden onset of numbness around his lower abdomen circling around him like a belt that quickly radiated into his groin and into bilateral lower extremities accompanied by weakness of bilateral lower extremities which resulted in his legs giving out from beneath him causing him to fall to the ground. Patient denied having any dizziness or lightheadedness, headache, neck or back pain, or experiencing any pain in his abdomen, groin, or lower extremities. He denies hitting his head during the fall and denies having any loss of consciousness. But reports due to the sudden onset numbness and weakness he was unable to stand back up and had to have his call EMS for transfer to the hospital. Upon arrival to our facility, patient underwent evaluation in the emergency department. Vital signs upon arrival show blood pressure 165/97, heart rate 88, respiratory rate 18, temp 98.8 F, and SpO2 of 97% on room air. CT lumbar spine CT abdomen and pelvis was also negative for acute intra-abdominal process completed showing no evidence for spinal fracture, no evidence for significant spinal canal stenosis revealing severe right L5-S1 neuroforaminal stenosis and moderate bilateral L4-L5 neuroforaminal stenosis, revealing a right middle lobe pulmonary nodule 8 mm, prostamegaly, colonic diverticulosis, and bilateral adrenal myolipoma's. Labs completed and reviewed. CBC unremarkable. BMP showing hyperglycemia with blood glucose of 146. Liver profile normal findings. Urinalysis positive for glucose and ketones but negative for infection. Patient was admitted under services with consultation to neurology and orthospine surgery. MRI lumbar spine was completed showing no definitive evidence of disc herniation or significant spinal canal stenosis revealing minimal disc degeneration with associated osteoarthritic changes. Patient underwent extensive cervical spinal surgery on the evening of 03/20/2025 through 03/21/2025. Subjective: Patient was seen and examined at bedside in ICU. Patient was intubated after bronchoscopy last night, chest x-ray shows drastic improvement in mucous plugging. Patient is on 50 of propofol but is still able to follow commands, is very excited to get the breathing tube out. General: intubated, follows commands HEENT: normocephalic, atraumatic, no tracheal deviation Respiratory: symmetric chest rise, no cyanosis, ventilator dependent CVS: perfusing all extremities, no distal gangrene, bilateral pitting edema GI: soft, ND : no SPT, no CVAT, disla is present\\ Data Reviewed: Chest x-ray on 03/27/2025 shows improvement in mucous plugging, ET tube in good position Assessment and Plan: Cervical myelopathy secondary to severe spinal canal stenosis involving C7-T1 Status post extensive cervical decompression with discectomy at C7-T1 and fusion with extension of fusion from C3-C7 with new extension down to T3 Severe right L5-S1 neuroforaminal stenosis Moderate bilateral L4-L5 neuroforaminal stenosis - Orthopedic surgery following status post extensive cervical decompression with dissecting at C7-T1 and fusion with extension of fusion from C3-C7 with new extension down to T3 - Continue inpatient rehab - Resume lisinopril, hydralazine as needed - Continue neurochecks every 4 hours and as needed. - Continue IV steroids with Solu-Medrol 100 mg IVP every 6 hours. - Maintain fall precautions - Continue Disla catheter management - Continue Unna boot bilaterally to prevent foot drop - PT/OT following - Neurology consultation is appreciated Bilateral lower extremity edema Bilateral lower extremity Doppler ultrasound negative for DVT Acute hypoxemic respiratory failure secondary to severe atelectasis and mucous plugging CT angio of chest shows markedly progressive left lung volume loss with marked atelectasis increasing suspicion for endobronchial obstruction/neoplasm and further evaluation may be indicated. Interval development of mild right lower lobe atelectasis. Continue DuoNebs 4 times daily and every 2 hours as needed Encourage incentive spirometry Continue vancomycin, Zosyn Patient is status post bronchoscopy with clearance of mucous plugging on 03/27 Type II wap-bwwvvyc-ewmgikooz diabetes mellitus with hyperglycemia -Hyperglycemia likely secondary to high-dose steroids being administered at this time. Will continue glycemic protocol with Humalog sliding scale. Currently blood glucose ranging to 240-268. - Lantus to 35 units subcu daily as basal insulin - Continue Humalog 4 units with subcu every 6 hours while intubated, sliding scale insulin every 6 hours while intubated Hypotension - Hold blood pressure medicine Hyperlipidemia - Continue daily medication regimen with atorvastatin 40 mg nightly Obstructive sleep apnea - Continue CPAP nightly and while napping. CODE STATUS: Full code DVT prophylaxis: Lovenox 40 mg subcu daily Discussed with: Patient and orthospine surgeon Anticipated discharge date: Pending clinical course Anticipated discharge place: Pending clinical course Objective - Vital Signs Vital signs: Vital Signs Temp 98.3 F 03/27/25 08:00 Pulse 105 H 03/27/25 08:00 Resp 19 03/27/25 08:00 BP 125/65 03/27/25 08:00 Pulse Ox 96 03/27/25 08:00 FiO2 50 03/27/25 08:00 Intake & Output 03/26/25 03/27/25 03/27/25 18:59 06:59 18:59 Intake Total 4366.357 5517.371 75 Output Total 1585 1395 125 Balance -321.104 649.371 -50 Weight 105.7 kg 108.5 kg Intake: IV 1200 1600 75 Piperacillin-Tazobactam 3 100 200 .375 gm In Sodium Chloride 0.9% 100 ml @ 25 mls/hr IVPB Q8HR [facility] Rx# :[id number] Sodium Chloride 0.9% 1, 900 900 75 000 ml @ 75 mls/hr IV . [id number] [facility] Rx#:[id number] Vancomycin 1,750 mg In 500 Sodium Chloride 0.9% 500 ml 500 ml @ 167 mls/hr IVPB Q12H [facility] Rx#: [id number] Intake, IV Titration 63.896 444.371 Amount Potassium Chloride 10 meq 100 In Water For Injection 1 100ml.bag @ 100 mls/hr IVPB Q1H JU[facility] LU[facility] Rx#: [id number] propofoL 1,000 mg In 63.896 344.371 Empty Bag 1 bag @ 15 MCG/ KG/MIN 9.513 mls/hr IV . [id number] JU[facility] LUIS Rx#:[id number] Output: Urine 1585 1395 125 Other: Voiding Method Indwelling Catheter Indwelling Catheter Indwelling Catheter - Labs CBC & Chem 7: 03/27/25 05:25 03/27/25 05:25 Labs: Abnormal Lab Results - Last 24 Hours (Table) 03/26/25 03/26/25 03/26/25 Range/Units 05:17 11:17 15:53 WBC (4.50-10.00) 10*3/uL RBC (4.40-5.60) 10*6/uL Hgb (13.0-17.0) g/dL Hct (39.6-50.0) % Immature Gran # (0.00-0.04) 10*3/uL Neutrophils # (Manual) 11.31 H (1.3-7.7) k/uL ABG Total CO2 (19-24) mmol/L ABG O2 Saturation (94-97) % Hemoglobin (13.0-17.5) gm/dL Chloride (98-107) mmol/L BUN (9-20) mg/dL Glucose (74-99) mg/dL POC Glucose (mg/dL) 354 H (70-110) mg/dL ALT (4-49) U/L Total Protein (6.3-8.2) g/dL Albumin (3.5-5.0) g/dL Fluid Appearance Turbid A (Clear) 03/26/25 03/26/25 03/26/25 Range/Units 16:10 16:37 20:29 WBC (4.50-10.00) 10*3/uL RBC (4.40-5.60) 10*6/uL Hgb (13.0-17.0) g/dL Hct (39.6-50.0) % Immature Gran # (0.00-0.04) 10*3/uL Neutrophils # (Manual) (1.3-7.7) k/uL ABG Total CO2 25 H (19-24) mmol/L ABG O2 Saturation 98.2 H (94-97) % Hemoglobin 11.1 L (13.0-17.5) gm/dL Chloride (98-107) mmol/L BUN (9-20) mg/dL Glucose (74-99) mg/dL POC Glucose (mg/dL) 249 H 251 H (70-110) mg/dL ALT (4-49) U/L Total Protein (6.3-8.2) g/dL Albumin (3.5-5.0) g/dL Fluid Appearance (Clear) 03/27/25 03/27/2503/27/25 Range/Units 05:25 05:25 05:30 WBC 14.48 H (4.50-10.00) 10*3/uL RBC 3.58 L (4.40-5.60) 10*6/uL Hgb 10.8 L (13.0-17.0) g/dL Hct 31.8 L (39.6-50.0) % Immature Gran # 0.92 H (0.00-0.04) 10*3/uL Neutrophils # (Manual) (1.3-7.7) k/uL ABG Total CO2 25 H (19-24) mmol/L ABG O2 Saturation (94-97) % Hemoglobin 11.0 L (13.0-17.5) gm/dL Chloride 110 H (98-107) mmol/L BUN 29 H (9-20) mg/dL Glucose 262 H (74-99) mg/dL POC Glucose (mg/dL) (70-110) mg/dL ALT 88 H (4-49) U/L Total Protein 4.6 L (6.3-8.2) g/dL Albumin 2.3 L (3.5-5.0) g/dL Fluid Appearance (Clear) 03/27/25 Range/Units 06:14 WBC (4.50-10.00) 10*3/uL RBC (4.40-5.60) 10*6/uL Hgb (13.0-17.0) g/dL Hct (39.6-50.0) % Immature Gran # (0.00-0.04) 10*3/uL Neutrophils # (Manual) (1.3-7.7) k/uL ABG Total CO2 (19-24) mmol/L ABG O2 Saturation (94-97) % Hemoglobin (13.0-17.5) gm/dL Chloride (98-107) mmol/L BUN (9-20) mg/dL Glucose (74-99) mg/dL POC Glucose (mg/dL) 259 H (70-110) mg/dL ALT (4-49) U/L Total Protein (6.3-8.2) g/dL Albumin (3.5-5.0) g/dL Fluid Appearance (Clear)
[2025-03-27 11:05] LABS: Glucose,Whole Blood 297 mg/dL (70-110)
[2025-03-27] MEDS: INSULIN LISPRO (HumaLOG) 100 UNIT/ML 10 mL VL SQ SCH ×4 (11:06→16:12)
--- NOTE | 2025-03-27 12:10 | P.PN ---
Progress Note - Text Progress Note Date: 03/27/25 The patient is seen and examined at bedside. He is extubated for over the past 2 hours and breathing on nonrebreather. He is in good spirits as he usually is. He gives thumbs up and he talks appropriately. He says he has some sensation around his belly and toward his groin. He is not having any motor strength. He feels he is breathing much better today. On exam He is extubated on nonrebreather, he is comfortable His upper extremities have good motion throughout. He shook my hand and he has good strength in his bilateral upper extremities His incision site his neck is clean. The jarad are intact. There is no active drainage today. His lower extremities are still flaccid from his upper abdomen down. His thighs and calf are soft. Assessment and plan Spinal cord injury with paralysis T8 Postoperative day #7 status post posterior cervical decompression discectomy at C7-T1 with extension of fusion from C7 down to T3 Respiratory failure postop day #1 status post bronchoscopy with removal of multiple mucous plugs Somewhat improving respiratory status still guarded The patient is breathing much better today and his x-ray has improved significantly after his bronchoscopy. Currently he is extubated and they are monitoring closely from critical care perspective appropriately. They will continue to watch and manage. The patient remains with flaccid paralysis in his lower extremities. He says he has some change in his feeling around his abdomen and toward his groin. This is difficult to fully ascertain currently. Which to try to help him change positions regularly to prevent decubitus issues. They are managing this appropriately in the intensive care unit. Will continue to follow closely.
--- NOTE | 2025-03-27 12:45 | P.PN ---
Subjective Progress Note Date: 03/27/25 Principal diagnosis: Acute hypoxic respiratory failure with left lower lobe atelectasis, pneumonia, and left lung collapse/opacification. This is a 64-year-old male patient was undergone a C 7 T1 discectomy, done posteriorly with wide laminectomy and foraminotomy and partial facetectomy. The patient was experiencing cervical myelopathy with severe bilateral lower extremity weakness and T8 paresthesia. The patient has previous history of cervical spine fusion C2-C7. The patient was found to have a large herniated disc C7-T1 with severe spinal cord stenosis and based on that the patient was taken to the operating room and underwent a C7-T1 discectomy on 03/21/2025. The patient has become progressively more hypoxic. Currently he is on Airvo at 60 L and FiO2 of 90%. His current pulse ox is in order of 90 to 93%. Slightly tachycardic. Blood pressure is also soft at 89/62. Based on worsening hypoxemia, CT of the chest was done and the patient was found to have s ignificant volume loss in the left lung compared to the right. There is marked volume loss and atelectasis in addition to an area of consolidation in the left upper lobe and elevation of the left hemidiaphragm in addition to significant gastric distention. The patient has dilated air in the stomach and colon. Blood work shows a white cell count of 14, hemoglobin 12.4 and a platelet count of 175. Sodium levels at 137, bicarb is at 23, potassium level is at 4.3 with a chloride of 102. BUN 23 with a creatinine of 0.9. The patient is resting comfortably in bed. He is wearing a hard neck collar. He is reporting some mild shortness of breath even at rest. He is tolerating the Airvo. He is currently on IV Solu-Medrol 100 mg every 6 hours post neck surgery. He is also on IV fluids with l normal saline at rate of 75 cc an hour. Comorbidities include hypertension, hyperlipidemia, diabetes mellitus type 2, obstructive sleep apnea maintained on CPAP therapy on outpatient basis On today's evaluation of 03/23/25, patient is still on the BiPAP pressure of 14 over 6 cm of water and FiO2 has been weaned down to 65%. The patient's abdomen seems to be less distended. He had 2 bowel movements and the patient is also passing flatus. Fluid balance +223 cc over the past 24 hours and the patient remains on normal saline at a rate of 75 cc an hour. Neurologically, unchanged and the patient has absent motor function lower extremities bilaterally. He is on broad-spectrum antibiotics and the patient is currently on Zosyn vancomycin combination. Follow-up chest x-ray shows some interval improvement in aeration in the left lung base. Lung volumes in the left remain small and there is some ongoing atelectatic change at left lower lobe. The patient's white cell count is 11, hemoglobin 11.3 and a platelet count of 180. Electrolytes are all within normal limits. BUN is 40 with a creatinine of 1.05. The patient is able to communicate. He is alert and awake. Denies having any specific complaints. Still wearing a hard neck collar. 03/24/2025, the patient is laying flat in bed and is currently on a BiPAP at a pressure of 14/6 with an FiO2 of 75% overnight and Airvo during the day. He remains on normal saline at rate of 75 cc an hour. Chest x-ray still showing left lower lobe consolidation. Abdomen is soft. He had 3 bowel movements. He is on Lantus insulin. The patient's mentation is awake and alert. Nevertheless, he continues to have profound weakness in the lower extremity and he remains paraplegic. Remains on IV Solu-Medrol. Blood sugars are elevated and he remains on Lantus 15 units daily and NovoLog sliding scale coverage. The white cell count 11.9, hemoglobin 11.3 and a platelet count of 201. BUN 34 with a creatinine of 0.8. Sodium levels at 136. Blood sugars up to 82. He is postop day #4 following an open decompression and fusion of C7-T1 surgery was done due to a large disc herniation and spinal cord injury. He is also status post fusion and extension from prior fusion C2-7 and near extension fusion down to T3. He is unable to move his legs still. Samuels catheter still in place. Using incentive spirometer. Afebrile. 03/25/2025, the patient is being seen for a follow-up. Repeat chest x-ray was done and shows ongoing volume loss and atelectasis in the left lung base. I also performed an ultrasound of the chest and there is no sizable pleural effusion for thoracentesis. Findings are more consistent with consolidation/atelectasis. Remains on Airvo at 60 L and FiO2 of 90%. Incentive spirometer. Overnight, using BiPAP pressure of 14/6 and use of water with an FiO2 of 80%. Remains in normal Saint rate of 75 cc an hour. Fluid balance is +550 cc over the past 24 hours. No respiratory difficulties. The white cell count of 12. Hemoglobin is 10.9. Platelet count is 210. BUN is 32 with a creatinine of 0.8. Sodium levels at 138 and potassium levels of 4.2. Remains on Zosyn and vancomycin. Neurologically unchanged and the patient continues to be paraplegic. Patient was seen today on 03/26/2025, patient remains in the ICU, he is on Airvo at 90% and 60 L flow, patient is generally weak, alert and appropriate, IV fluid at 75 cc/h, continues to have weakness from the waist down. Patient had cervical spine surgery postoperative day #6. Chest x-ray showed complete opacification of the left lung consistent with mucous plugging involving the left mainstem bronchus. Hence I discussed this with the patient today, patient needs to be bronchoscope, needs to have extraction of mucous plugs. Considering the patient is marginal at best, will need to be intubated and placed on mechanical ventilation for the procedure. Based on the findings we will decide whether the patient needs to remain on mechanical ventilation after bronchoscopy or not. Most likely he will remain ventilated after the bronchoscopy. Patient has a bit of leukocytosis with WBC of 13.3 hemoglobin 11.3 electrolytes are normal renal profile is normal. Nasal screen has been positive for MSSA not MRSA. Patient was seen today on 03/27/2025, patient remains intubated and mechanically ventilated, kept him on mechanical ventilation after his bronchoscopy yesterday and suctioning of mucous plugs from the left mainstem bronchus and left lung. Left lung continues to show good inflation, minimal left lower lobe atelectasis, patient is on assist-control rate of 18 tidal volume 550 FiO2 50% and PEEP of 8 ABG today showed a pO2 of 84 pCO2 37 pH of 7.41. Patient is also on propofol at 50 mg/kg/min IV fluids at 75 cc/h on antibiotics in the form of Zosyn and vancomycin, antibiotics to be changed once we have the final culture from the BAL. I plan to wean the patient today, possibly consider placing him on BiPAP 12/6/50% assuming he tolerates weaning and he passes his weaning parameters. Patient is awake, follows instructions, although he is still on propofol. WBC count is 14.48 hemoglobin 10.8 electrolytes are normal, BUN is 29 creatinine 0.7 Objective - Vital Signs Vital signs: Vital Signs Temp 98.3 F 03/27/25 12:00 Pulse 115 H 03/27/25 12:00 Resp 26 H 03/27/25 12:00 BP 126/66 03/27/25 12:00 Pulse Ox 92 L 03/27/25 12:10 FiO2 50 03/27/25 12:00 Intake & Output 03/26/25 03/27/25 03/27/25 18:59 06:59 18:59 Intake Total 5985.705 7883.371 952.69 Output Total 1585 1395 650 Balance -321.104 649.371 302.69 Weight 105.7 kg 108.5 kg Intake: IV 1200 1600 875 Piperacillin-Tazobactam 3 100 200 .375 gm In Sodium Chloride 0.9% 100 ml @ 25 mls/hr IVPB Q8HR [facility] Rx# :[id number] Sodium Chloride 0.9% 1, 900 900 375 000 ml @ 75 mls/hr IV . [id number] [facility] Rx#:[id number] Vancomycin 1,750 mg In 500 500 Sodium Chloride 0.9% 500 ml 500 ml @ 167 mls/hr IVPB Q12H [facility] Rx#: [id number] Intake, IV Titration 63.896 444.371 77.69 Amount Potassium Chloride 10 meq 100 In Water For Injection 1 100ml.bag @ 100 mls/hr IVPB Q1H [facility] Rx#: [id number] propofoL 1,000 mg In 63.896 344.371 77.69 Empty Bag 1 bag @ 15 MCG/ KG/MIN 9.513 mls/hr IV . [id number] JUAN LUIS Rx#:[id number] Output: Urine 1585 1395 650 Other: Voiding Method Indwelling Catheter Indwelling Catheter Indwelling Catheter - Exam General: Reveals 64-year-old white male, intubated and mechanically ventilated Derm: warm, dry, intact, dressing noted at the back of neck with no signs of drainage or bleeding. Head: atraumatic, normocephalic, symmetric Eyes: EOMI, anicteric sclera Mouth: Moist mucous membranes, no evidence of lesions Cardiovascular: S1 S2 reg, no murmur, rubs, or gallops Lungs: Good breath sound bilaterally no crackles rhonchi or wheezes Abdominal: soft, a bowel sounds are present Extremities: no gross muscle atrophy, no edema, no contractures, patient is unable to move bilateral lower extremity Neuro: Alert, Oriented, CNII-XII grossly intact, in spite of being intubated mechanically ventilated and sedated Psych: Normal mood, affect and no mental status examination. - Labs CBC & Chem 7: 03/27/25 05:03/27/25 05: Labs: Abnormal Lab Results - Last 24 Hours (Table) 03/26/25 03/26/25 03/26/25 Range/Units 15:53 16:10 16:37 WBC (4.50-10.00) 10*3/uL RBC (4.40-5.60) 10*6/uL Hgb (13.0-17.0) g/dL Hct (39.6-50.0) % Immature Gran # (0.00-0.04) 10*3/uL ABG Total CO2 25 H (19-24) mmol/L ABG O2 Saturation 98.2 H (94-97) % Hemoglobin 11.1 L (13.0-17.5) gm/dL Chloride (98-107) mmol/L BUN (9-20) mg/dL Glucose (74-99) mg/dL POC Glucose (mg/dL) 249 H (70-110) mg/dL ALT (4-49) U/L Total Protein (6.3-8.2) g/dL Albumin (3.5-5.0) g/dL Fluid Appearance Turbid A (Clear) 03/26/25 03/27/25 03/27/25 Range/Units 20:29 05: 05:25 WBC 14.48 H (4.50-10.00) 10*3/uL RBC 3.58 L (4.40-5.60) 10*6/uL Hgb 10.8 L (13.0-17.0) g/dL Hct 31.8 L (39.6-50.0) % Immature Gran # 0.92 H (0.00-0.04) 10*3/uL ABG Total CO2 (19-24) mmol/L ABG O2 Saturation (94-97) % Hemoglobin (13.0-17.5) gm/dL Chloride 110 H (98-107) mmol/L BUN 29 H (9-20) mg/dL Glucose 262 H (74-99) mg/dL POC Glucose (mg/dL) 251 H (70-110) mg/dL ALT 88 H (4-49) U/L Total Protein 4.6 L (6.3-8.2) g/dL Albumin 2.3 L (3.5-5.0) g/dL Fluid Appearance (Clear) 03/27/25 03/27/25 03/27/25 Range/Units 05:30 06:14 11:04 WBC (4.50-10.00) 10*3/uL RBC (4.40-5.60) 10*6/uL Hgb (13.0-17.0) g/dL Hct (39.6-50.0) % Immature Gran # (0.00-0.04) 10*3/uL ABG Total CO2 25 H (19-24) mmol/L ABG O2 Saturation (94-97) % Hemoglobin 11.0 L (13.0-17.5) gm/dL Chloride (98-107) mmol/L BUN (9-20) mg/dL Glucose (74-99) mg/dL POC Glucose (mg/dL) 259 H 297 H (70-110) mg/dL ALT (4-49) U/L Total Protein (6.3-8.2) g/dL Albumin (3.5-5.0) g/dL Fluid Appearance (Clear) Assessment and Plan Assessment: Impression: Acute hypoxic respiratory failure Left-sided atelectasis and now complete opacification of the left lung most likely secondary to mucous plugging, this was initially a left lower lobe atelectasis/pneumonia that progressed and now the whole left lung is collapsed., Required bronchoscopy with suctioning of mucous plugs from the left mainstem bronchus and BAL of the left lung. Severe spinal canal stenosis at C7-T1 status post discectomy and decompression and fusion patient is now postoperative day #7 Obstructive sleep apnea syndrome on CPAP normally Type 2 diabetes Hypotension could be related to sepsis could also be neurogenic post spinal surgery Dyslipidemia Bilateral lower extremities weakness related to his spinal issues/cervical/thoracic spine issues T8 paresthesia History of severe L5-S1 neuroforaminal stenosis Recommendation: Patient will be given weaning trials today and if tolerated may consider weaning and extubating however if extubated I will still extubate to BiPAP because of his tendency to collapse his left lung Continue antibiotics, Zosyn and vancomycin Cultures from BAL are pending this was done yesterday. Continue pain control Continue Samuels catheter in place Continue updrafts Incentive spirometry, once extubated Patient remains critically ill, intubated mechanically ventilated may or may not wean and extubate today depending on his overall progress clinically. Critical care time is 35 minutes Will continue to follow Time with Patient: Greater than 30
[2025-03-27 12:50] LABS: Nucleated Cells, Body Fluid 1211 /UL
[2025-03-27 14:03] LABS: Lymphocytes # (M) 0.72 k/uL (1.0-4.8); Metamyelocytes # (M) 0.43 k/uL (0); Monocytes # (M) 0.72 k/uL (0-1.0); Myelocytes # (M) 0.29 k/uL (0); Neutrophils # (M) 12.45 k/uL (1.3-7.7); Neutrophils % (M) 85 %; Total Cells Counted 200
[2025-03-27 14:10] LABS: RBC Morphology Normal
[2025-03-27 16:10] LABS: Glucose,Whole Blood 360 mg/dL (70-110)
[2025-03-27 20:29] LABS: Glucose,Whole Blood 359 mg/dL (70-110)
[2025-03-28 05:55] LABS: Glucose,Whole Blood 286 mg/dL (70-110)
[2025-03-28 05:58] LABS: Basophils # (A) 0.06 10*3/uL (0.00-0.10); Basophils % (A) 0.3 %; Eosinophils # (A) 0.00 10*3/uL (0.04-0.35); Eosinophils % (A) 0.0 %; HCT 32.2 % (39.6-50.0); HGB 10.7 g/dL (13.0-17.0); Lymphocytes # (A) 0.49 10*3/uL (0.90-5.00); Lymphocytes % (A) 2.5 %; MCH 29.5 pg (27.0-32.0); MCHC 33.2 g/dL (32.0-37.0); MCV 88.7 fL (80.0-97.0); Monocytes # (A) 1.00 10*3/uL (0.20-1.00); Monocytes % (A) 5.2 %; Neutrophils # (A) 16.26 10*3/uL (1.80-7.70); Neutrophils % (A) 84.0 %; Platelet Count 258 10*3/uL (140-440); RBC 3.63 10*6/uL (4.40-5.60); RDW 14.0 % (11.5-14.5); WBC 19.36 10*3/uL (4.50-10.00)
[2025-03-28 06:10] LABS: African American GFR (CKD) >90 (>60 ml/min/1.73 sqM); Anion Gap 6 mmol/L; Blood Urea Nitrogen 28 mg/dL (9-20); Calcium 8.4 mg/dL (8.4-10.2); Carbon Dioxide 24 mmol/L (22-30); Chloride 111 mmol/L (98-107); Glucose 273 mg/dL (74-99); Non-African American GFR(CKD) >90 (>60 ml/min/1.73 sqM); Potassium 4.1 mmol/L (3.5-5.1); Sodium 141 mmol/L (137-145)
--- NOTE | 2025-03-28 07:43 | XR ---
EXAMINATION TYPE: XR chest 1V portable DATE OF EXAM: 03/28/2025 5:09 AM COMPARISON: 03/27/2025 CLINICAL INDICATION: Male, 64 years old with history of Tube placement, , FINDINGS: ACDF hardware. Posterior cervical fusion hardware. Posterior midline skin jarad. Heart mildly enlar ged. Increasing, now moderate to large left pleural effusion. IMPRESSION: Increasing, now moderate to large left pleural effusion with underlying atelectasis and/or consolidat ion. Some of this appearance may relate to semiupright positioning on the current exam. [facility], Workstation: [id number], 03/28/2025 7:41 AM
--- NOTE | 2025-03-28 08:30 | US ---
EXAMINATION TYPE: US chest DATE OF EXAM: 03/28/2025 COMPARISON: XR 2024 CLINICAL INDICATION: Male, 64 years old with history of Markings for thoracentesis by pulmonary staff ; Software Designer notes: *Limited exam, 2 people helping hold patient upright while third person scanning. TECHNIQUE: Grayscale imaging of the chest. Targeted ultrasound of the posterior lower bilateral seema thoraces FINDINGS: EXAM MEASUREMENTS: Software Designer notes: Right Pleural Effusion pocket size: 0 cm Left Pleural Effusion pocket size: Measured at 5.4 cm, but lung is seen throughout the pocket, so it is not a true 5 cm pocket. Left skin surface to fluid distance: 3.6 cm, and lung is seen at this level Upper chest covered with bandage - limited. Right side NOT marked for possible thoracentesis outside the dept. Left side NOT marked for possible thoracentesis outside the dept. Pulmonologists are able to review the images in the patient?s EMR. IMPRESSIONS: On the left, scanning shows extensive consolidated/atelectatic lung; no sizable pleural effusion is s een on the left while scanning from a posterior approach at the lower chest. No pleural effusion on the right. [facility], , 03/28/2025 8:27 AM
[2025-03-28] MEDS: ACETYLCYSTEINE 800 MG/4 ML VIAL INHALATION SCH (09:13)
--- NOTE | 2025-03-28 10:21 | P.PN ---
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 Wheeler) approximately 2 months ago, migraine headaches, depression. Presented to the emergency department with a chief complaint of sudden onset numbness extending from periumbilical region downwards throughout groin and bilateral lower extremities followed by weakness of bilateral lower extremities. Patient states he was moving some plants at home when he had sudden onset of numbness around his lower abdomen circling around him like a belt that quickly radiated into his groin and into bilateral lower extremities accompanied by weakness of bilateral lower extremities which resulted in his legs giving out from beneath him causing him to fall to the ground. Patient denied having any dizziness or lightheadedness, headache, neck or back pain, or experiencing any pain in his abdomen, groin, or lower extremities. He denies hitting his head during the fall and denies having any loss of consciousness. But reports due to the sudden onset numbness and weakness he was unable to stand back up and had to have his call EMS for transfer to the hospital. Upon arrival to our facility, patient underwent evaluation in the emergency department. Vital signs upon arrival show blood pressure 165/97, heart rate 88, respiratory rate 18, temp 98.8 F, and SpO2 of 97% on room air. CT lumbar spine CT abdomen and pelvis was also negative for acute intra-abdominal process completed showing no evidence for spinal fracture, no evidence for significant spinal canal stenosis revealing severe right L5-S1 neuroforaminal stenosis and moderate bilateral L4-L5 neuroforaminal stenosis, revealing a right middle lobe pulmonary nodule 8 mm, prostamegaly, colonic diverticulosis, and bilateral adrenal myolipoma's. Labs completed and reviewed. CBC unremarkable. BMP showing hyperglycemia with blood glucose of 146. Liver profile normal findings. Urinalysis positive for glucose and ketones but negative for infection. Patient was admitted under services with consultation to neurology and orthospine surgery. MRI lumbar spine was completed showing no definitive evidence of disc herniation or significant spinal canal stenosis revealing minimal disc degeneration with associated osteoarthritic changes. Patient underwent extensive cervical spinal surgery on the evening of 03/20/2025 through 03/21/2025. Subjective: Patient was seen and examined at bedside in ICU. Extubated and on BiPAP. Reports breathing slightly better compared to yesterday. Denies fever, chills, chest pain, nausea or vomiting, abdominal pain. Continues to report no sensation and weakness in bilateral lower extremity. General: On BiPAP, follows commands HEENT: normocephalic, atraumatic, no tracheal deviation Respiratory: symmetric chest rise, no cyanosis, clear to auscultation bilaterally CVS: perfusing all extremities, no distal gangrene, bilateral pitting edema GI: soft, ND, nontender to palpation : no SPT, no CVAT, disla is present\\ Data Reviewed: WBC 19.36, hemoglobin 10.7, hematocrit 32.2, platelet 258, sodium 141, potassium 4.1, chloride 111, BUN 28, creatinine 0.75, glucose 273-286 Bronchoscopy on 03/26/2025 showed left lung collapse secondary to mucous plugging involving the left mainstem bronchus Chest x-ray showed increasing now moderate to large left pleural effusion with underlying atelectasis and or consolidation. Some of this appearance may relate to semiupright positioning on the current exam. Ultrasound of the chest shows extensive consolidated/atelectatic lung on the left side. No sizable pleural effusion seen on the left while scanning from a posterior approach to the lower chest. No pleural effusion on the right. Assessment and Plan: Acute hypoxemic respiratory failure secondary to severe atelectasis and mucous plugging CT angio of chest shows markedly progressive left lung volume loss with marked atelectasis increasing suspicion for endobronchial obstruction/neoplasm and further evaluation may be indicated. Interval development of mild right lower lobe atelectasis. Continue DuoNebs 4 times daily and every 2 hours as needed Encourage incentive spirometry Continue Zosyn Discontinue vancomycin Continue with Mucomyst Patient is status post bronchoscopy with clearance of mucous plugging on 03/27 Cervical myelopathy secondary to severe spinal canal stenosis involving C7-T1 Status post extensive cervical decompression with discectomy at C7-T1 and fusion with extension of fusion from C3-C7 with new extension down to T3 Severe right L5-S1 neuroforaminal stenosis Moderate bilateral L4-L5 neuroforaminal stenosis - Orthopedic surgery following status post extensive cervical decompression with dissecting at C7-T1 and fusion with extension of fusion from C3-C7 with new extension down to T3 - Continue inpatient rehab - Resume lisinopril, hydralazine as needed - Continue neurochecks every 4 hours and as needed. - Continue IV steroids with Solu-Medrol 100 mg IVP every 6 hours. - Maintain fall precautions - Continue Disla catheter management - Continue Unna boot bilaterally to prevent foot drop - PT/OT following - Neurology consultation is appreciated Type II foe-rsbxrry-yckribywq diabetes mellitus with hyperglycemia -Hyperglycemia likely secondary to high-dose steroids being administered at this time. Will continue glycemic protocol with Humalog sliding scale. Currently blood glucose ranging to 273-286 - Lantus to 35 units subcu daily as basal insulin - Increase Humalog to 8 units with subcu every 6 hours while intubated, sliding scale insulin every 6 hours while intubated Bilateral lower extremity edema Bilateral lower extremity Doppler ultrasound negative for DVT Hypertension - Continue lisinopril 40 mg daily Hyperlipidemia - Continue daily medication regimen with atorvastatin 40 mg nightly Obstructive sleep apnea - Continue CPAP nightly and while napping. CODE STATUS: Full code DVT prophylaxis: Lovenox 40 mg subcu daily Discussed with: Patient and orthospine surgeon Anticipated discharge date: Pending clinical course Anticipated discharge place: Pending clinical course I have seen and evaluated the patient today. Discussed with the resident and agree with the residents finding and plan as documented in the resident's note. Changes highlighted in blue font. Patient is critically ill, needs close monitoring. Prognosis guarded. Objective - Vital Signs Vital signs: Vital Signs Temp 100.8 F H 03/28/25 06:00 Pulse 80 03/28/25 06:40 Resp 18 03/28/25 06:00 BP 167/81 03/28/25 06:00 Pulse Ox 93 L 03/28/25 05:00 FiO2 60 03/28/25 06:29 Intake & Output 03/27/25 03/27/25 03/28/25 06:59 18:59 06:59 Intake Total 2044.371 2477.69 1125 Output Total 1395 2295 1675 Balance 649.371 182.69 -550 Weight 108.5 kg Intake: IV 1600 1500 825 Piperacillin-Tazobactam 3 200 100 .375 gm In Sodium Chloride 0.9% 100 ml @ 25 mls/hr IVPB Q8HR [facility] Rx# :[id number] Sodium Chloride 0.9% 1, 900 900 825 000 ml @ 75 mls/hr IV . [id number] [facility] Rx#:[id number] Vancomycin 1,750 mg In 500 500 Sodium Chloride 0.9% 500 ml 500 ml @ 167 mls/hr IVPB Q12H [facility] Rx#: [id number] Intake, IV Titration 444.371 77.69 Amount Potassium Chloride 10 meq 100 In Water For Injection 1 100ml.bag @ 100 mls/hr IVPB Q1H [facility] Rx#: [id number] propofoL 1,000 mg In 344.371 77.69 Empty Bag 1 bag @ 15 MCG/ KG/MIN 9.513 mls/hr IV . [id number] [facility] Rx#:[id number] Oral 400 Blood Product 500 Other 300 Output: Urine 1395 2295 1675 Other: Voiding Method Indwelling Catheter Indwelling Catheter Indwelling Catheter - Labs CBC & Chem 7: 03/28/25 05:13 03/28/25 05:13 Labs: Abnormal Lab Results - Last 24 Hours (Table) 03/26/25 03/27/25 03/27/25 Range/Units 15:53 05:25 11:04 WBC 14.48 H (4.50-10.00) 10*3/uL RBC 3.58 L (4.40-5.60) 10*6/uL Hgb 10.8 L (13.0-17.0) g/dL Hct 31.8 L (39.6-50.0) % Immature Gran # 0.92 H (0.00-0.04) 10*3/uL Neutrophils # (1.80-7.70) 10*3/uL Neutrophils # (Manual) 12.45 H (1.3-7.7) k/uL Lymphocytes # (0.90-5.00) 10*3/uL Lymphocytes # (Manual) 0.72 L (1.0-4.8) k/uL Eosinophils # (0.04-0.35) 10*3/uL Metamyelocytes # (Man) 0.43 H (0) k/uL Myelocytes # (Manual) 0.29 H (0) k/uL Chloride (98-107) mmol/L BUN (9-20) mg/dL Glucose (74-99) mg/dL POC Glucose (mg/dL) 297 H (70-110) mg/dL Fluid RBC 96828 H (0-2000) /uL 05/20/25 05/20/25 05/21/25 Range/Units 16:09 20:28 05:13 WBC (4.50-10.00) 10*3/uL RBC (4.40-5.60) 10*6/uL Hgb (13.0-17.0) g/dL Hct (39.6-50.0) % Immature Gran # (0.00-0.04) 10*3/uL Neutrophils # (1.80-7.70) 10*3/uL Neutrophils # (Manual) (1.3-7.7) k/uL Lymphocytes # (0.90-5.00) 10*3/uL Lymphocytes # (Manual) (1.0-4.8) k/uL Eosinophils # (0.04-0.35) 10*3/uL Metamyelocytes # (Man) (0) k/uL Myelocytes # (Manual) (0) k/uL Chloride 111 H (98-107) mmol/L BUN 28 H (9-20) mg/dL Glucose 273 H (74-99) mg/dL POC Glucose (mg/dL) 360 H 359 H (70-110) mg/dL Fluid RBC (0-2000) /uL 03/28/25 03/28/25 Range/Units 05:13 05:54 WBC 19.36 H (4.50-10.00) 10*3/uL RBC 3.63 L (4.40-5.60) 10*6/uL Hgb 10.7 L (13.0-17.0) g/dL Hct 32.2 L (39.6-50.0) % Immature Gran # 1.55 H (0.00-0.04) 10*3/uL Neutrophils # 16.26 H (1.80-7.70) 10*3/uL Neutrophils # (Manual) (1.3-7.7) k/uL Lymphocytes # 0.49 L (0.90-5.00) 10*3/uL Lymphocytes # (Manual) (1.0-4.8) k/uL Eosinophils # 0.00 L (0.04-0.35) 10*3/uL Metamyelocytes # (Man) (0) k/uL Myelocytes # (Manual) (0) k/uL Chloride (98-107) mmol/L BUN (9-20) mg/dL Glucose (74-99) mg/dL POC Glucose (mg/dL) 286 H (70-110) mg/dL Fluid RBC (0-2000) /uL Microbiology - Last 24 Hours (Table) 03/26/25 15:53 Acid Fast Bacilli Smear - Preliminary Bronchoalviolar Lavage - Left 03/26/25 15:53 Gram Stain - Preliminary Bronchoalviolar Lavage - Left
--- NOTE | 2025-03-28 10:54 | P.PN ---
Progress Note - Text Progress Note Date: 03/28/25 Orthopedic spine: History of present illness: Patient is a very pleasant 64-year-old male who is seen examined at bedside in the ICU for follow-up evaluation of the cervical spine. He is status post posterior cervical decompression discectomy at C7-T1 with extension of fusion from C7 down to T3. He continues to keep his hard cervical collar intact. He is not experiencing any cervical pain. His jarad remain intact. He has good range of motion of his bilateral upper extremities. He is awake and alert. He is able to answer questions appropriately. He continues have significant difficulty with this bilateral lower extremities. He states his numbness has improved around his abdomen towards the groin. Currently he does not have any sensation in his bilateral lower extremities and has no motor function in his lower extremities. He currently has compression stockings and boots intact. He continues to have difficulty from a respiratory standpoint. Chest x-ray taken today has worsened. He is back on BiPAP. Nursing states he may plan for another bronchoscopy tomorrow. He continues to be seen exam by multiple medical providers including pulmonology and medicine. Physical Exam Posterior cervical Fusion: Status post surgical day number #8 Patient is awake, alert, and oriented 3; patient is answering questions appropriately BiPAP intact Patient mitts to some sensation with palpation over his abdomen Septic Tank Servicer strength, thumb strength, interosseous strength, biceps strength, triceps strength, and shoulder strength positive sustained bilaterally Hard cervical collar intact Jarad intact at the posterior cervical spine Surgical incision site is dry No sensation with palpation over the thighs, calves or feet bilaterally Pneumatic boots intact bilateral lower extremities Compression stockings intact bilaterally Samuels catheter intact Assessment: Spinal cord injury with paralysis at T8 Postoperative day #8: Status post posterior cervical decompression discectomy at C7-T1 with extension of fusion from C7-T3 Bilateral lower extremity paralysis Bilateral lower extremity loss of sensation Acute hypoxic respiratory failure Left-sided atelectasis Obstructive sleep apnea syndrome on CPAP normally Type 2 diabetes Hypotension could be related to sepsis could also be neurogenic post spinal surgery Dyslipidemia Plan: 1. Patient continues to remain in the ICU and is on bedrest. His BiPAP is intact. He is awake, alert, and oriented and answering questions appropriately. He has been closely manage from pulmonary standpoint. 2. Patient must keep his hard cervical collar intact at all times. Jarad remain intact. Surgical incision site is currently dry. 3. Patient continues to have flaccid paralysis in his bilateral lower extremities. He has had some increase in sensation around his abdomen towards his groin. I did try to help change positions regularly to help prevent decubitus issues. 4. Patient will continue be managed in the ICU until cleared from a pulmonology standpoint. When medically stable clear, patient will be planning to be discharged to a spinal cord facility for rehabilitation. 5. We will continue to follow the patient closely. The patient is seen and examined at bedside. They are monitoring his breathing status closely as he is having some worsening on imaging at his left lung today compared to yesterday. He is still on BiPAP now and they are considering possibility of repeat bronchoscopy tomorrow. The patient states that he has some sensation around his abdomen but not in his lower extremities. He is not having any function in his lower extremities. He denies any new pains. The patient situation is quite ominous and guarded. Is difficult to know how he would make improvement we will continue with continued management now. Will continue his steroid medication as he may be having some increase sensation at his lower abdomen. I agree with the dictation above. Will continue to follow him closely.
[2025-03-28 11:18] LABS: Glucose,Whole Blood 272 mg/dL (70-110)
[2025-03-28] MEDS: INSULIN LISPRO (HumaLOG) 100 UNIT/ML 10 mL VL SQ SCH (11:30)
--- NOTE | 2025-03-28 12:23 | P.PN ---
Subjective Progress Note Date: 03/28/25 Principal diagnosis: Acute hypoxic respiratory failure with left lower lobe atelectasis, pneumonia, and left lung collapse/opacification. This is a 64-year-old male patient was undergone a C 7 T1 discectomy, done posteriorly with wide laminectomy and foraminotomy and partial facetectomy. The patient was experiencing cervical myelopathy with severe bilateral lower extremity weakness and T8 paresthesia. The patient has previous history of cervical spine fusion C2-C7. The patient was found to have a large herniated disc C7-T1 with severe spinal cord stenosis and based on that the patient was taken to the operating room and underwent a C7-T1 discectomy on 03/21/2025. The patient has become progressively more hypoxic. Currently he is on Airvo at 60 L and FiO2 of 90%. His current pulse ox is in order of 90 to 93%. Slightly tachycardic. Blood pressure is also soft at 89/62. Based on worsening hypoxemia, CT of the chest was done and the patient was found to have s ignificant volume loss in the left lung compared to the right. There is marked volume loss and atelectasis in addition to an area of consolidation in the left upper lobe and elevation of the left hemidiaphragm in addition to significant gastric distention. The patient has dilated air in the stomach and colon. Blood work shows a white cell count of 14, hemoglobin 12.4 and a platelet count of 175. Sodium levels at 137, bicarb is at 23, potassium level is at 4.3 with a chloride of 102. BUN 23 with a creatinine of 0.9. The patient is resting comfortably in bed. He is wearing a hard neck collar. He is reporting some mild shortness of breath even at rest. He is tolerating the Airvo. He is currently on IV Solu-Medrol 100 mg every 6 hours post neck surgery. He is also on IV fluids with l normal saline at rate of 75 cc an hour. Comorbidities include hypertension, hyperlipidemia, diabetes mellitus type 2, obstructive sleep apnea maintained on CPAP therapy on outpatient basis On today's evaluation of 03/23/25, patient is still on the BiPAP pressure of 14 over 6 cm of water and FiO2 has been weaned down to 65%. The patient's abdomen seems to be less distended. He had 2 bowel movements and the patient is also passing flatus. Fluid balance +223 cc over the past 24 hours and the patient remains on normal saline at a rate of 75 cc an hour. Neurologically, unchanged and the patient has absent motor function lower extremities bilaterally. He is on broad-spectrum antibiotics and the patient is currently on Zosyn vancomycin combination. Follow-up chest x-ray shows some interval improvement in aeration in the left lung base. Lung volumes in the left remain small and there is some ongoing atelectatic change at left lower lobe. The patient's white cell count is 11, hemoglobin 11.3 and a platelet count of 180. Electrolytes are all within normal limits. BUN is 40 with a creatinine of 1.05. The patient is able to communicate. He is alert and awake. Denies having any specific complaints. Still wearing a hard neck collar. 03/24/2025, the patient is laying flat in bed and is currently on a BiPAP at a pressure of 14/6 with an FiO2 of 75% overnight and Airvo during the day. He remains on normal saline at rate of 75 cc an hour. Chest x-ray still showing left lower lobe consolidation. Abdomen is soft. He had 3 bowel movements. He is on Lantus insulin. The patient's mentation is awake and alert. Nevertheless, he continues to have profound weakness in the lower extremity and he remains paraplegic. Remains on IV Solu-Medrol. Blood sugars are elevated and he remains on Lantus 15 units daily and NovoLog sliding scale coverage. The white cell count 11.9, hemoglobin 11.3 and a platelet count of 201. BUN 34 with a creatinine of 0.8. Sodium levels at 136. Blood sugars up to 82. He is postop day #4 following an open decompression and fusion of C7-T1 surgery was done due to a large disc herniation and spinal cord injury. He is also status post fusion and extension from prior fusion C2-7 and near extension fusion down to T3. He is unable to move his legs still. Samuels catheter still in place. Using incentive spirometer. Afebrile. 03/25/2025, the patient is being seen for a follow-up. Repeat chest x-ray was done and shows ongoing volume loss and atelectasis in the left lung base. I also performed an ultrasound of the chest and there is no sizable pleural effusion for thoracentesis. Findings are more consistent with consolidation/atelectasis. Remains on Airvo at 60 L and FiO2 of 90%. Incentive spirometer. Overnight, using BiPAP pressure of 14/6 and use of water with an FiO2 of 80%. Remains in normal Saint rate of 75 cc an hour. Fluid balance is +550 cc over the past 24 hours. No respiratory difficulties. The white cell count of 12. Hemoglobin is 10.9. Platelet count is 210. BUN is 32 with a creatinine of 0.8. Sodium levels at 138 and potassium levels of 4.2. Remains on Zosyn and vancomycin. Neurologically unchanged and the patient continues to be paraplegic. Patient was seen today on 03/26/2025, patient remains in the ICU, he is on Airvo at 90% and 60 L flow, patient is generally weak, alert and appropriate, IV fluid at 75 cc/h, continues to have weakness from the waist down. Patient had cervical spine surgery postoperative day #6. Chest x-ray showed complete opacification of the left lung consistent with mucous plugging involving the left mainstem bronchus. Hence I discussed this with the patient today, patient needs to be bronchoscope, needs to have extraction of mucous plugs. Considering the patient is marginal at best, will need to be intubated and placed on mechanical ventilation for the procedure. Based on the findings we will decide whether the patient needs to remain on mechanical ventilation after bronchoscopy or not. Most likely he will remain ventilated after the bronchoscopy. Patient has a bit of leukocytosis with WBC of 13.3 hemoglobin 11.3 electrolytes are normal renal profile is normal. Nasal screen has been positive for MSSA not MRSA. Patient was seen today on 03/27/2025, patient remains intubated and mechanically ventilated, kept him on mechanical ventilation after his bronchoscopy yesterday and suctioning of mucous plugs from the left mainstem bronchus and left lung. Left lung continues to show good inflation, minimal left lower lobe atelectasis, patient is on assist-control rate of 18 tidal volume 550 FiO2 50% and PEEP of 8 ABG today showed a pO2 of 84 pCO2 37 pH of 7.41. Patient is also on propofol at 50 mg/kg/min IV fluids at 75 cc/h on antibiotics in the form of Zosyn and vancomycin, antibiotics to be changed once we have the final culture from the BAL. I plan to wean the patient today, possibly consider placing him on BiPAP 12/6/50% assuming he tolerates weaning and he passes his weaning parameters. Patient is awake, follows instructions, although he is still on propofol. WBC count is 14.48 hemoglobin 10.8 electrolytes are normal, BUN is 29 creatinine 0.7 Patient was seen today on 03/28/2025, patient was extubated yesterday, had to be placed on BiPAP to avoid atelectasis again of the left lung and mucous plugging patient has very poor cough, cannot clear his secretions, and his chest x-ray today is beginning to show early atelectasis in the left lower lobe, questionable effusion but ultrasound did not show much fluid. I believe it is all a picture of atelectasis involving the left lower lobe and I am afraid that the patient may have reopacification of the left lung in the next 24 hours. In the meantime I will continue patient on BiPAP, will recommend chest PT, N- acetylcysteine and albuterol, Mucinex, and hopefully we can avoid another bronchoscopy. Otherwise if the patient opacifies left lung again, may have to be bronchoscope again. And if we do I will keep him longer on mechanical ventilation. Patient remains on antibiotics/broad-spectrum he is WBC count is 19.36 hemoglobin is 10.7 electrolytes are normal renal profile is normal. Objective - Vital Signs Vital signs: Vital Signs Temp 98.2 F 03/28/25 08:00 Pulse 82 03/28/25 11:30 Resp 19 03/28/25 11:00 BP 157/77 03/28/25 11:00 Pulse Ox 92 L 03/28/25 11:00 FiO2 60 03/28/25 11:21 Intake & Output 03/27/25 03/28/25 03/28/25 18:59 06:59 18:59 Intake Total 2477.69 1200 1300 Output Total 2295 1795 600 Balance 182.69 -595 700 Weight 116 kg 116 kg Intake: IV 1500 900 900 Piperacillin-Tazobactam 3 100 100 .375 gm In Sodium Chloride 0.9% 100 ml @ 25 mls/hr IVPB Q8HR JU[facility] Rx# :[id number] Sodium Chloride 0.9% 1, 900 900 300 000 ml @ 75 mls/hr IV . [id number] JU[facility] LUIS Rx#:[id number] Vancomycin 1,750 mg In 500 Sodium Chloride 0.9% 500 ml 500 ml @ 167 mls/hr IVPB Q12H JU[facility] LU[facility] Rx#: [id number] Vancomycin 2,000 mg In 500 Sodium Chloride 0.9% 500 ml 500 ml @ 167 mls/hr IVPB Q12H JUAN LUIS Rx#: [id number] Intake, IV Titration 77.69 Amount propofoL 1,000 mg In 77.69 Empty Bag 1 bag @ 15 MCG/ KG/MIN 9.513 mls/hr IV . [id number] JUAN LUIS Rx#:[id number] Oral 400 400 Blood Product 500 Other 300 Output: Urine 2295 1795 600 Other: Voiding Method Indwelling Catheter Indwelling Catheter Indwelling Catheter - Exam General: Reveals 64-year-old white male, on nasal cannula this morning, he was on BiPAP through the night. Derm: warm, dry, intact, dressing noted at the back of neck with no signs of drainage or bleeding. Head: atraumatic, normocephalic, symmetric Eyes: EOMI, anicteric sclera Mouth: Moist mucous membranes, no evidence of lesions Cardiovascular: S1 S2 reg, no murmur, rubs, or gallops Lungs: Diminished breath sounds at the left base good breath sounds on the right side. Patient has extremely poor cough Abdominal: soft, a bowel sounds are present Extremities: no gross muscle atrophy, no edema, no contractures, patient is unable to move bilateral lower extremity Neuro: Alert, Oriented, CNII-XII grossly intact Psych: Normal mood, affect and no mental status examination. - Labs CBC & Chem 7: 03/28/25 05:13 03/28/25 05:13 Labs: Abnormal Lab Results - Last 24 Hours (Table) 03/26/25 03/27/25 03/27/25 Range/Units 15:53 05:25 16:09 WBC (4.50-10.00) 10*3/uL RBC (4.40-5.60) 10*6/uL Hgb (13.0-17.0) g/dL Hct (39.6-50.0) % Immature Gran # (0.00-0.04) 10*3/uL Neutrophils # (1.80-7.70) 10*3/uL Neutrophils # (Manual) 12.45 H (1.3-7.7) k/uL Lymphocytes # (0.90-5.00) 10*3/uL Lymphocytes # (Manual) 0.72 L (1.0-4.8) k/uL Eosinophils # (0.04-0.35) 10*3/uL Metamyelocytes # (Man) 0.43 H (0) k/uL Myelocytes # (Manual) 0.29 H (0) k/uL Chloride (98-107) mmol/L BUN (9-20) mg/dL Glucose (74-99) mg/dL POC Glucose (mg/dL) 360 H (70-110) mg/dL Fluid RBC 58385 H (0-1999) /uL 03/27/25 03/28/25 03/28/25 Range/Units 20:28 05:13 05:13 WBC 19.36 H (4.50-10.00) 10*3/uL RBC 3.63 L (4.40-5.60) 10*6/uL Hgb 10.7 L (13.0-17.0) g/dL Hct 32.2 L (39.6-50.0) % Immature Gran # 1.55 H (0.00-0.04) 10*3/uL Neutrophils # 16.26 H (1.80-7.70) 10*3/uL Neutrophils # (Manual) (1.3-7.7) k/uL Lymphocytes # 0.49 L (0.90-5.00) 10*3/uL Lymphocytes # (Manual) (1.0-4.8) k/uL Eosinophils # 0.00 L (0.04-0.35) 10*3/uL Metamyelocytes # (Man) (0) k/uL Myelocytes # (Manual) (0) k/uL Chloride 111 H (98-107) mmol/L BUN 28 H (9-20) mg/dL Glucose 273 H (74-99) mg/dL POC Glucose (mg/dL) 359 H (70-110) mg/dL Fluid RBC (0-2000) /uL 03/28/25 03/28/25 Range/Units 05:54 11:17 WBC (4.50-10.00) 10*3/uL RBC (4.40-5.60) 10*6/uL Hgb (13.0-17.0) g/dL Hct (39.6-50.0) % Immature Gran # (0.00-0.04) 10*3/uL Neutrophils # (1.80-7.70) 10*3/uL Neutrophils # (Manual) (1.3-7.7) k/uL Lymphocytes # (0.90-5.00) 10*3/uL Lymphocytes # (Manual) (1.0-4.8) k/uL Eosinophils # (0.04-0.35) 10*3/uL Metamyelocytes # (Man) (0) k/uL Myelocytes # (Manual) (0) k/uL Chloride (98-107) mmol/L BUN (9-20) mg/dL Glucose (74-99) mg/dL POC Glucose (mg/dL) 286 H 272 H (70-110) mg/dL Fluid RBC (0-2000) /uL Microbiology - Last 24 Hours (Table) 03/26/25 15:53 Acid Fast Bacilli Smear - Preliminary Bronchoalviolar Lavage - Left 03/26/25 15:53 Gram Stain - Preliminary Bronchoalviolar Lavage - Left Assessment and Plan Assessment: Impression: Acute hypoxic respiratory failure Left-sided atelectasis and now complete opacification of the left lung most likely secondary to mucous plugging, this was initially a left lower lobe atelectasis/pneumonia that progressed and now the whole left lung is collapsed., Required bronchoscopy with suctioning of mucous plugs from the left mainstem bronchus and BAL of the left lung. Patient is developing early atelectasis again today may or may not progress to full opacification of the left lung, we will try to avoid if we can. Severe spinal canal stenosis at C7-T1 status post discectomy and decompression and fusion patient is now postoperative day #8 Obstructive sleep apnea syndrome on CPAP normally Type 2 diabetes Hypotension could be related to sepsis could also be neurogenic post spinal surgery Dyslipidemia Bilateral lower extremities weakness related to his spinal issues/cervical/thoracic spine issues T8 paresthesia History of severe L5-S1 neuroforaminal stenosis Recommendation: Chest physical therapy BiPAP Mucomyst and N-acetylcysteine and updrafts Encourage deep cough and deep breathing Encourage incentive spirometry Continue antibiotics Cultures from BAL are pending will address antibiotics accordingly Continue pain control Patient is extremely marginal at best, hence we will continue to monitor in the ICU. Time with Patient: Less than 30
[2025-03-28 16:28] LABS: Glucose,Whole Blood 205 mg/dL (70-110)
[2025-03-28 19:44] LABS: Glucose,Whole Blood 237 mg/dL (70-110)
[2025-03-29 05:58] LABS: HCT 33.0 % (39.6-50.0); HGB 11.2 g/dL (13.0-17.0); MCH 29.9 pg (27.0-32.0); MCHC 33.9 g/dL (32.0-37.0); MCV 88.2 fL (80.0-97.0); Platelet Count 235 10*3/uL (140-440); RBC 3.74 10*6/uL (4.40-5.60); RDW 13.7 % (11.5-14.5); WBC 23.23 10*3/uL (4.50-10.00)
[2025-03-29 06:09] LABS: African American GFR (CKD) >90 (>60 ml/min/1.73 sqM); Anion Gap 5 mmol/L; Blood Urea Nitrogen 29 mg/dL (9-20); Calcium 8.3 mg/dL (8.4-10.2); Carbon Dioxide 24 mmol/L (22-30); Chloride 108 mmol/L (98-107); Glucose 194 mg/dL (74-99); Non-African American GFR(CKD) >90 (>60 ml/min/1.73 sqM); Potassium 4.1 mmol/L (3.5-5.1); Sodium 137 mmol/L (137-145)
[2025-03-29 06:41] LABS: Glucose,Whole Blood 222 mg/dL (70-110)
--- NOTE | 2025-03-29 07:39 | XR ---
EXAMINATION TYPE: XR chest 1V portable DATE OF EXAM: 03/29/2025 5:02 AM COMPARISON: 03/28/2025 CLINICAL INDICATION: Male, 64 years old with history of Tube placement, , FINDINGS: ACDF and posterior cervical fusion hardware. Posterior midline skin jarad. Right lung and pleural s pace remain clear. Left heart margin remains obscured by adjacent pleural parenchymal opacity. Extens carlota opacification throughout the left hemithorax with only a small portion of aerated left upper lung , worsening from prior. IMPRESSION: Interval worsening now with near complete opacification of the left hemithorax. [facility], , 03/29/2025 7:36 AM
[2025-03-29 07:54] LABS: Lymphocytes # (M) 1.39 k/uL (1.0-4.8); Monocytes # (M) 0.46 k/uL (0-1.0); Neutrophils # (M) 21.37 k/uL (1.3-7.7); Neutrophils % (M) 91 %; Total Cells Counted 100
[2025-03-29 07:55] LABS: Anisocytosis (M) Present
[2025-03-29] MEDS: INSULIN GLARGINE (LANTUS) 100 UNIT/ML SYR SQ STA (10:29)
[2025-03-29] MEDS: MEROPENEM 1 GM in SODIUM CHLORIDE 0.9% 100 ML IVPB SCH (10:30)
--- NOTE | 2025-03-29 10:51 | P.PN ---
Subjective Progress Note Date: 03/29/25 Principal diagnosis: Acute hypoxic respiratory failure with left lower lobe atelectasis, pneumonia, and left lung collapse/opacification. This is a 64-year-old male patient was undergone a C 7 T1 discectomy, done posteriorly with wide laminectomy and foraminotomy and partial facetectomy. The patient was experiencing cervical myelopathy with severe bilateral lower extremity weakness and T8 paresthesia. The patient has previous history of cervical spine fusion C2-C7. The patient was found to have a large herniated disc C7-T1 with severe spinal cord stenosis and based on that the patient was taken to the operating room and underwent a C7-T1 discectomy on 03/21/2025. The patient has become progressively more hypoxic. Currently he is on Airvo at 60 L and FiO2 of 90%. His current pulse ox is in order of 90 to 93%. Slightly tachycardic. Blood pressure is also soft at 89/62. Based on worsening hypoxemia, CT of the chest was done and the patient was found to have s ignificant volume loss in the left lung compared to the right. There is marked volume loss and atelectasis in addition to an area of consolidation in the left upper lobe and elevation of the left hemidiaphragm in addition to significant gastric distention. The patient has dilated air in the stomach and colon. Blood work shows a white cell count of 14, hemoglobin 12.4 and a platelet count of 175. Sodium levels at 137, bicarb is at 23, potassium level is at 4.3 with a chloride of 102. BUN 23 with a creatinine of 0.9. The patient is resting comfortably in bed. He is wearing a hard neck collar. He is reporting some mild shortness of breath even at rest. He is tolerating the Airvo. He is currently on IV Solu-Medrol 100 mg every 6 hours post neck surgery. He is also on IV fluids with l normal saline at rate of 75 cc an hour. Comorbidities include hypertension, hyperlipidemia, diabetes mellitus type 2, obstructive sleep apnea maintained on CPAP therapy on outpatient basis On today's evaluation of 03/23/25, patient is still on the BiPAP pressure of 14 over 6 cm of water and FiO2 has been weaned down to 65%. The patient's abdomen seems to be less distended. He had 2 bowel movements and the patient is also passing flatus. Fluid balance +223 cc over the past 24 hours and the patient remains on normal saline at a rate of 75 cc an hour. Neurologically, unchanged and the patient has absent motor function lower extremities bilaterally. He is on broad-spectrum antibiotics and the patient is currently on Zosyn vancomycin combination. Follow-up chest x-ray shows some interval improvement in aeration in the left lung base. Lung volumes in the left remain small and there is some ongoing atelectatic change at left lower lobe. The patient's white cell count is 11, hemoglobin 11.3 and a platelet count of 180. Electrolytes are all within normal limits. BUN is 40 with a creatinine of 1.05. The patient is able to communicate. He is alert and awake. Denies having any specific complaints. Still wearing a hard neck collar. 03/24/2025, the patient is laying flat in bed and is currently on a BiPAP at a pressure of 14/6 with an FiO2 of 75% overnight and Airvo during the day. He remains on normal saline at rate of 75 cc an hour. Chest x-ray still showing left lower lobe consolidation. Abdomen is soft. He had 3 bowel movements. He is on Lantus insulin. The patient's mentation is awake and alert. Nevertheless, he continues to have profound weakness in the lower extremity and he remains paraplegic. Remains on IV Solu-Medrol. Blood sugars are elevated and he remains on Lantus 15 units daily and NovoLog sliding scale coverage. The white cell count 11.9, hemoglobin 11.3 and a platelet count of 201. BUN 34 with a creatinine of 0.8. Sodium levels at 136. Blood sugars up to 82. He is postop day #4 following an open decompression and fusion of C7-T1 surgery was done due to a large disc herniation and spinal cord injury. He is also status post fusion and extension from prior fusion C2-7 and near extension fusion down to T3. He is unable to move his legs still. Samuels catheter still in place. Using incentive spirometer. Afebrile. 03/25/2025, the patient is being seen for a follow-up. Repeat chest x-ray was done and shows ongoing volume loss and atelectasis in the left lung base. I also performed an ultrasound of the chest and there is no sizable pleural effusion for thoracentesis. Findings are more consistent with consolidation/atelectasis. Remains on Airvo at 60 L and FiO2 of 90%. Incentive spirometer. Overnight, using BiPAP pressure of 14/6 and use of water with an FiO2 of 80%. Remains in normal [place] rate of 75 cc an hour. Fluid balance is +550 cc over the past 24 hours. No respiratory difficulties. The white cell count of 12. Hemoglobin is 10.9. Platelet count is 210. BUN is 32 with a creatinine of 0.8. Sodium levels at 138 and potassium levels of 4.2. Remains on Zosyn and vancomycin. Neurologically unchanged and the patient continues to be paraplegic. Patient was seen today on 03/26/2025, patient remains in the ICU, he is on Airvo at 90% and 60 L flow, patient is generally weak, alert and appropriate, IV fluid at 75 cc/h, continues to have weakness from the waist down. Patient had cervical spine surgery postoperative day #6. Chest x-ray showed complete opacification of the left lung consistent with mucous plugging involving the left mainstem bronchus. Hence I discussed this with the patient today, patient needs to be bronchoscope, needs to have extraction of mucous plugs. Considering the patient is marginal at best, will need to be intubated and placed on mechanical ventilation for the procedure. Based on the findings we will decide whether the patient needs to remain on mechanical ventilation after bronchoscopy or not. Most likely he will remain ventilated after the bronchoscopy. Patient has a bit of leukocytosis with WBC of 13.3 hemoglobin 11.3 electrolytes are normal renal profile is normal. Nasal screen has been positive for MSSA not MRSA. Patient was seen today on 03/27/2025, patient remains intubated and mechanically ventilated, kept him on mechanical ventilation after his bronchoscopy yesterday and suctioning of mucous plugs from the left mainstem bronchus and left lung. Left lung continues to show good inflation, minimal left lower lobe atelectasis, patient is on assist-control rate of 18 tidal volume 550 FiO2 50% and PEEP of 8 ABG today showed a pO2 of 84 pCO2 37 pH of 7.41. Patient is also on propofol at 50 mg/kg/min IV fluids at 75 cc/h on antibiotics in the form of Zosyn and vancomycin, antibiotics to be changed once we have the final culture from the BAL. I plan to wean the patient today, possibly consider placing him on BiPAP 12/6/50% assuming he tolerates weaning and he passes his weaning parameters. Patient is awake, follows instructions, although he is still on propofol. WBC count is 14.48 hemoglobin 10.8 electrolytes are normal, BUN is 29 creatinine 0.7 Patient was seen today on 03/28/2025, patient was extubated yesterday, had to be placed on BiPAP to avoid atelectasis again of the left lung and mucous plugging patient has very poor cough, cannot clear his secretions, and his chest x-ray today is beginning to show early atelectasis in the left lower lobe, questionable effusion but ultrasound did not show much fluid. I believe it is all a picture of atelectasis involving the left lower lobe and I am afraid that the patient may have reopacification of the left lung in the next 24 hours. In the meantime I will continue patient on BiPAP, will recommend chest PT, N- acetylcysteine and albuterol, Mucinex, and hopefully we can avoid another bronchoscopy. Otherwise if the patient opacifies left lung again, may have to be bronchoscope again. And if we do I will keep him longer on mechanical ventilation. Patient remains on antibiotics/broad-spectrum he is WBC count is 19.36 hemoglobin is 10.7 electrolytes are normal renal profile is normal. Seen today on 03/29/2025, patient remains in the ICU, chest x-ray is showing wo rsening and he is again having near complete opacification of the left lung. Apparently the patient is developing mucous plugging again involving the left mainstem bronchus and the cultures from his last BAL came back showing Serratia marcescens. Considering the patient's critical illness, I am transitioning Zosyn to Merrem for better coverage of Serratia. Sensitivity is still pending on the organism. But empirically Merrem would be a better choice for Serratia marcescens for the time being. Patient still on BiPAP at 14/6/60%, and considering his abnormal chest x-ray, I am recommending bronchoscopy again and this has to be again done with the patient intubated as his O2 saturation is ma rginal even on 60% BiPAP. Patient looks comfortable, he is not in distress. Continues to have leukocytosis with WC of 23.23 hemoglobin 11.2 basic metabolic profile is normal renal profile is normal continues to have cervical collar in place. Objective - Vital Signs Vital signs: Vital Signs Temp 97.5 F L 03/29/25 08:00 Pulse 56 L 03/29/25 10:00 Resp 16 03/29/25 10:00 BP 146/76 03/29/25 10:00 Pulse Ox 92 L 03/29/25 10:00 FiO2 60 03/29/25 08:00 Intake & Output 03/28/25 03/29/25 03/29/25 18:59 06:59 18:59 Intake Total 2900 1325 325 Output Total 1475 1150 385 Balance 1425 175 -60 Weight 116 kg 116.4 kg Intake: IV 1500 825 325 Piperacillin-Tazobactam 3 100 100 .375 gm In Sodium Chloride 0.9% 100 ml @ 25 mls/hr IVPB Q8HR JUAN LUIS Rx# :[id number] Sodium Chloride 0.9% 1, 900 825 225 000 ml @ 75 mls/hr IV . [id number] JUAN LUIS Rx#:[id number] Vancomycin 2,000 mg In 500 Sodium Chloride 0.9% 500 ml 500 ml @ 167 mls/hr IVPB Q12H JUAN LUIS Rx#: [id number] Oral 1400 500 Output: Urine 1475 1150 385 Other: Voiding Method Indwelling Catheter Indwelling Catheter Indwelling Catheter - Exam General: Reveals 64-year-old white male, BiPAP 14/6/60% Derm: warm, dry, intact, dressing noted at the back of neck with no signs of drainage or bleeding. Head: atraumatic, normocephalic, symmetric Eyes: EOMI, anicteric sclera Mouth: Moist mucous membranes, no evidence of lesions Cardiovascular: S1 S2 reg, no murmur, rubs, or gallops Lungs: Extremely diminished breath sounds on the left side. Right side is clear Abdominal: soft, a bowel sounds are present Extremities: no gross muscle atrophy, no edema, no contractures, patient is unable to move bilateral lower extremity Neuro: Alert, Oriented, CNII-XII grossly intact Psych: Normal mood, affect and no mental status examination. - Labs CBC & Chem 7: 03/29/25 05:10 03/29/25 05:10 Labs: Abnormal Lab Results - Last 24 Hours (Table) 03/26/25 03/28/25 03/28/25 Range/Units 15:53 11:17 16:27 WBC (4.50-10.00) 10*3/uL RBC (4.40-5.60) 10*6/uL Hgb (13.0-17.0) g/dL Hct (39.6-50.0) % Immature Gran # (0.00-0.04) 10*3/uL Neutrophils # (Manual) (1.3-7.7) k/uL Chloride (98-107) mmol/L BUN (9-20) mg/dL Creatinine (0.66-1.25) mg/dL Glucose (74-99) mg/dL POC Glucose (mg/dL) 272 H 205 H (70-110) mg/dL Calcium (8.4-10.2) mg/dL HSV I DNA PCR DETECTED A (Not detected) 03/28/25 03/29/25 03/29/25 Range/Units 19:42 05:10 05:10 WBC 23.23 H (4.50-10.00) 10*3/uL RBC 3.74 L (4.40-5.60) 10*6/uL Hgb 11.2 L (13.0-17.0) g/dL Hct 33.0 L (39.6-50.0) % Immature Gran # 1.30 H (0.00-0.04) 10*3/uL Neutrophils # (Manual) 21.37 H (1.3-7.7) k/uL Chloride 108 H (98-107) mmol/L BUN 29 H (9-20) mg/dL Creatinine 0.60 L (0.66-1.25) mg/dL Glucose 194 H (74-99) mg/dL POC Glucose (mg/dL) 237 H (70-110) mg/dL Calcium 8.3 L (8.4-10.2) mg/dL HSV I DNA PCR (Not detected) 03/29/25 Range/Units 06:40 WBC (4.50-10.00) 10*3/uL RBC (4.40-5.60) 10*6/uL Hgb (13.0-17.0) g/dL Hct (39.6-50.0) % Immature Gran # (0.00-0.04) 10*3/uL Neutrophils # (Manual) (1.3-7.7) k/uL Chloride (98-107) mmol/L BUN (9-20) mg/dL Creatinine (0.66-1.25) mg/dL Glucose (74-99) mg/dL POC Glucose (mg/dL) 222 H (70-110) mg/dL Calcium (8.4-10.2) mg/dL HSV I DNA PCR (Not detected) Microbiology - Last 24 Hours (Table) 03/26/25 15:53 Gram Stain - Final Bronchoalviolar Lavage - Left Bronchial Washings Culture - Final Serratia marcescens Assessment and Plan Assessment: Impression: Acute hypoxic respiratory failure, secondary to recurrent episodes of left lung collapse and opacification mostly because the patient cannot clear his secretions and he has a very poor cough, in addition his sputum/BAL has been positive for Serratia. Near complete opacification of the left lung again patient will need another bronchoscopy and mucous plug suctioning and bronchoalveolar lavage of the lung again. Left-sided pneumonia secondary to Serratia marcescens, patient will be treated with Merrem and will discontinue Zosyn for now. Severe spinal canal stenosis at C7-T1 status post discectomy and decompression and fusion patient is now postoperative day #9 Obstructive sleep apnea syndrome on CPAP normally Type 2 diabetes Hypotension could be related to sepsis could also be neurogenic post spinal surgery Dyslipidemia Bilateral lower extremities weakness related to his spinal issues/cervical/thoracic spine issues T8 paresthesia History of severe L5-S1 neuroforaminal stenosis Recommendation: Patient will need another bronchoscopy today and suctioning of mucous plugs will keep on mechanical ventilation. Continue chest physical therapy Continue Mucomyst and N-acetylcysteine and updrafts Encourage incentive spirometry if the patient gets extubated tomorrow. Change Zosyn to Merrem to better cover Serratia marcescens Continue cervical collar Continue pain control Patient is marginal at best and quite ill. Time with Patient: Less than 30
[2025-03-29] MEDS ORDERED: SUCCINYLCHOLINE CHLORIDE 200 MG/10 ML VIAL IV ONE (11:02)
[2025-03-29] MEDS ORDERED: ROCURONIUM 10 MG/ML (5 ML VIAL) IV ONE (11:02)
[2025-03-29] MEDS ORDERED: PROPOFOL 10 MG/ML 20 ML VIAL IV ONE (11:02)
[2025-03-29] MEDS ORDERED: LIDOCAINE 1% INJ 10MG/ML (20 ML MDV) ONE (11:02)
--- NOTE | 2025-03-29 11:10 | P.PN ---
Progress Note - Text Progress Note Date: 03/29/25 Orthopedic spine: History of present illness: Patient is a very pleasant 64-year-old male who is seen examined at bedside in the ICU for follow-up evaluation of the cervical spine. He was seen by Dr. Gideon Noyola this morning. He is status post posterior cervical decompression discectomy at C7-T1 with extension of fusion from C7 down to T3. He has not had any change from an orthopedic spine standpoint as compared to yesterday. He continues to keep his hard cervical collar intact. He is not experiencing any cervical pain. His jarad remain intact. He has good range of motion of his bilateral upper extremities. He is awake and alert. He is able to answer questions appropriately. He continues have significant difficulty with this bilateral lower extremities. He states his numbness has improved around his abdomen towards the groin. C urrently he does not have any sensation in his bilateral lower extremities and has no motor function in his lower extremities. He currently has compression stockings and boots intact. He continues to have difficulty from a respiratory standpoint. Chest x-ray taken today has yesterday. He is back on BiPAP. They are planning for bronchoscopy today with reintubation overnight. They are currently at the bedside for the bronchoscopy. He continues to be seen exam by multiple medical providers including pulmonology and medicine. Physical Exam Posterior cervical Fusion: Status post surgical day number #9 Patient is awake, alert, and oriented 3; patient is answering questions appropriately BiPAP intact Fish Net Stringer strength, thumb strength, interosseous strength, biceps strength, triceps strength, and shoulder strength positive sustained bilaterally Hard cervical collar intact Jarad intact at the posterior cervical spine Pneumatic boots intact bilateral lower extremities Compression stockings intact bilaterally Samuels catheter intact Assessment: Spinal cord injury with paralysis at T8 Postoperative day #8: Status post posterior cervical decompression discectomy at C7-T1 with extension of fusion from C7-T3 Bilateral lower extremity paralysis Bilateral lower extremity loss of sensation Acute hypoxic respiratory failure Left-sided atelectasis Obstructive sleep apnea syndrome on CPAP normally Type 2 diabetes Hypotension could be related to sepsis could also be neurogenic post spinal surgery Dyslipidemia Plan: From an orthopedic spine standpoint, we will continue with our plan as set forth previously. 1. Patient continues to remain in the ICU and is on bedrest. His BiPAP is intact. He is awake, alert, and oriented and answering questions appropriately. He has been closely manage from pulmonary standpoint. They are currently at the bedside for the bronchoscopy with plans for reintubation. 2. Patient must keep his hard cervical collar intact at all times. Jarad remain intact. 3. Patient continues to have flaccid paralysis in his bilateral lower extremities. He has had some increase in sensation around his abdomen towards his groin. They should try to change his positions regularly to help prevent decubitus issues. 4. Patient will continue be managed in the ICU until cleared from a pulmonology standpoint. When medically stable clear, patient will be planning to be discharged to a spinal cord facility for rehabilitation. 5. We will continue to follow the patient closely. Pt is seen and examined this morning. I agree with above. Continue repiratory and medical mgmt per critical care.
--- NOTE | 2025-03-29 11:53 | XR ---
EXAMINATION TYPE: XR chest 1V portable DATE OF EXAM: 03/29/2025 11:43 AM COMPARISON: 03/29/2025 CLINICAL INDICATION: Male, 64 years old with history of Tube placement, , FINDINGS: ET and NG tubes are satisfactory. ACDF hardware and posterior cervical fusion hardware. Posterior mid line skin jarad. Heart is borderline in size. Improvement in aeration throughout the left lung. A s [id number] left pleural effusion remains. Mild interstitial density remains. IMPRESSION: Interval improvement on the left now with residual [id number] left pleural effusion. Underlyin g atelectasis and/or consolidation. [facility], , 03/29/2025 11:51 AM
[2025-03-29 11:57] LABS: Glucose,Whole Blood 214 mg/dL (70-110)
[2025-03-29] MEDS: INSULIN LISPRO (HumaLOG) 100 UNIT/ML 10 mL VL SQ SCH (12:05)
[2025-03-29] MEDS: MIDAZOLAM HCL 50 MG in SODIUM CHLORIDE 0.9% 40 ML IV SCH (12:06)
--- NOTE | 2025-03-29 12:15 | P.PN ---
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 Wheeler) approximately 2 months ago, migraine headaches, depression. Presented to the emergency department with a chief complaint of sudden onset numbness extending from periumbilical region downwards throughout groin and bilateral lower extremities followed by weakness of bilateral lower extremities. Patient states he was moving some plants at home when he had sudden onset of numbness around his lower abdomen circling around him like a belt that quickly radiated into his groin and into bilateral lower extremities accompanied by weakness of bilateral lower extremities which resulted in his legs giving out from beneath him causing him to fall to the ground. Patient denied having any dizziness or lightheadedness, headache, neck or back pain, or experiencing any pain in his abdomen, groin, or lower extremities. He denies hitting his head during the fall and denies having any loss of consciousness. But reports due to the sudden onset numbness and weakness he was unable to stand back up and had to have his call EMS for transfer to the hospital. Upon arrival to our facility, patient underwent evaluation in the emergency department. Vital signs upon arrival show blood pressure 165/97, heart rate 88, respiratory rate 18, temp 98.8 F, and SpO2 of 97% on room air. CT lumbar spine CT abdomen and pelvis was also negative for acute intra-abdominal process completed showing no evidence for spinal fracture, no evidence for significant spinal canal stenosis revealing severe right L5-S1 neuroforaminal stenosis and moderate bilateral L4-L5 neuroforaminal stenosis, revealing a right middle lobe pulmonary nodule 8 mm, prostamegaly, colonic diverticulosis, and bilateral adrenal myolipoma's. Labs completed and reviewed. CBC unremarkable. BMP showing hyperglycemia with blood glucose of 146. Liver profile normal findings. Urinalysis positive for glucose and ketones but negative for infection. Patient was admitted under services with consultation to neurology and orthospine surgery. MRI lumbar spine was completed showing no definitive evidence of disc herniation or significant spinal canal stenosis revealing minimal disc degeneration with associated osteoarthritic changes. Patient underwent extensive cervical spinal surgery on the evening of 03/20/2025 through 03/21/2025. Subjective: Patient was seen and examined at bedside in ICU. Extubated and on BiPAP. Reports breathing slightly better compared to yesterday. Denies fever, chills, chest pain, nausea or vomiting, abdominal pain. Continues to report no sensation and weakness in bilateral lower extremity. General: On BiPAP, follows commands HEENT: normocephalic, atraumatic, no tracheal deviation Respiratory: symmetric chest rise, no cyanosis, clear to auscultation bilaterally CVS: perfusing all extremities, no distal gangrene, bilateral pitting edema GI: soft, ND, nontender to palpation : no SPT, no CVAT, disla is present\\ Data Reviewed: WBC 23.2, hemoglobin 11.2, hematocrit 33, platelets 235, immature granulocytes 1.3, sodium 137, potassium 4.1, BUN 29, creatinine 0.6, glucose 194-222 Bronchoscopy on 03/26/2025 showed left lung collapse secondary to mucous plugging involving the left mainstem bronchus Chest x-ray on 03/29/2025 independently interpreted significant left-sided opacity Assessment and Plan: Acute hypoxemic respiratory failure secondary to severe atelectasis and mucous plugging Suspected underlying pneumonia secondary to Serratia CT angio of chest shows markedly progressive left lung volume loss with marked atelectasis increasing suspicion for endobronchial obstruction/neoplasm and further evaluation may be indicated. Interval development of mild right lower lobe atelectasis. Continue DuoNebs 4 times daily and every 2 hours as needed Encourage incentive spirometry Zosyn has been discontinued, start meropenem 1 g IV every 8 hours Continue with Mucomyst Repeat bronchoscopy today Continue BiPAP Bronchial washings culture showed positive for Serratia Cervical myelopathy secondary to severe spinal canal stenosis involving C7-T1 Status post extensive cervical decompression with discectomy at C7-T1 and fusion with extension of fusion from C3-C7 with new extension down to T3 Severe right L5-S1 neuroforaminal stenosis Moderate bilateral L4-L5 neuroforaminal stenosis - Orthopedic surgery following status post extensive cervical decompression with dissecting at C7-T1 and fusion with extension of fusion from C3-C7 with new extension down to T3 - Continue inpatient rehab - Resume lisinopril, hydralazine as needed - Continue neurochecks every 4 hours and as needed. - Reduce Solu-Medrol to 40 mg IV every 6 hours - Maintain fall precautions - Continue Disla catheter management - Continue Unna boot bilaterally to prevent foot drop - PT/OT following - Neurology consultation is appreciated - Orthopedic note reviewed, plan is when patient is medically stable will be discharged to a spinal cord facility for rehabilitation. Type II twa-xnoxijc-oheynbasy diabetes mellitus with hyperglycemia -Hyperglycemia likely secondary to high-dose steroids being administered at this time. Will continue glycemic protocol with Humalog sliding scale. Currently blood glucose ranging to 194-222 - Increase Lantus to 40 units subcu daily as basal insulin - Discontinue Premeal Humalog insulin, sliding scale insulin every 6 hours while intubated Bilateral lower extremity edema Bilateral lower extremity Doppler ultrasound negative for DVT Hypertension - Continue lisinopril 40 mg daily Hyperlipidemia - Continue daily medication regimen with atorvastatin 40 mg nightly Obstructive sleep apnea - Continue CPAP nightly and while napping. CODE STATUS: Full code DVT prophylaxis: Lovenox 40 mg subcu daily Anticipated discharge date: Pending clinical course Anticipated discharge place: Pending clinical course I have seen and evaluated the patient today. Discussed with the resident and agree with the residents finding and plan as documented in the resident's note. Changes highlighted in blue font. Objective - Vital Signs Vital signs: Vital Signs Temp 97.9 F 03/29/25 00:00 Pulse 54 L 03/29/25 06:00 Resp 16 03/29/25 06:00 BP 150/83 03/29/25 06:00 Pulse Ox 94 L 03/29/25 06:00 FiO2 60 03/29/25 04:19 Intake & Output 03/28/25 03/29/25 03/29/25 18:59 06:59 18:59 Intake Total 2900 1325 Output Total 1475 1150 Balance 1425 175 Weight 116 kg 116.4 kg Intake: IV 1500 825 Piperacillin-Tazobactam 3 100 .375 gm In Sodium Chloride 0.9% 100 ml @ 25 mls/hr IVPB Q8HR JUAN LUIS Rx# :[id number] Sodium Chloride 0.9% 1, 900 825 000 ml @ 75 mls/hr IV . [id number] JUAN LUIS Rx#:[id number] Vancomycin 2,000 mg In 500 Sodium Chloride 0.9% 500 ml 500 ml @ 167 mls/hr IVPB Q12H JUAN LUIS Rx#: [id number] Oral 1400 500 Output: Urine 1475 1150 Other: Voiding Method Indwelling Catheter Indwelling Catheter - Labs CBC & Chem 7: 03/29/25 05:10 03/29/25 05:10 Labs: Abnormal Lab Results - Last 24 Hours (Table) 03/26/25 03/28/25 03/28/25 Range/Units 15:53 11:17 16:27 WBC (4.50-10.00) 10*3/uL RBC (4.40-5.60) 10*6/uL Hgb (13.0-17.0) g/dL Hct (39.6-50.0) % Immature Gran # (0.00-0.04) 10*3/uL Chloride (98-107) mmol/L BUN (9-20) mg/dL Creatinine (0.66-1.25) mg/dL Glucose (74-99) mg/dL POC Glucose (mg/dL) 272 H 205 H (70-110) mg/dL Calcium (8.4-10.2) mg/dL HSV I DNA PCR DETECTED A (Not detected) 03/28/25 03/29/25 03/29/25 Range/Units 19:42 05:10 05:10 WBC 23.23 H (4.50-10.00) 10*3/uL RBC 3.74 L (4.40-5.60) 10*6/uL Hgb 11.2 L (13.0-17.0) g/dL Hct 33.0 L (39.6-50.0) % Immature Gran # 1.30 H (0.00-0.04) 10*3/uL Chloride 108 H (98-107) mmol/L BUN 29 H (9-20) mg/dL Creatinine 0.60 L (0.66-1.25) mg/dL Glucose 194 H (74-99) mg/dL POC Glucose (mg/dL) 237 H (70-110) mg/dL Calcium 8.3 L (8.4-10.2) mg/dL HSV I DNA PCR (Not detected) 03/29/25 Range/Units 06:40 WBC (4.50-10.00) 10*3/uL RBC (4.40-5.60) 10*6/uL Hgb (13.0-17.0) g/dL Hct (39.6-50.0) % Immature Gran # (0.00-0.04) 10*3/uL Chloride (98-107) mmol/L BUN (9-20) mg/dL Creatinine (0.66-1.25) mg/dL Glucose (74-99) mg/dL POC Glucose (mg/dL) 222 H (70-110) mg/dL Calcium (8.4-10.2) mg/dL HSV I DNA PCR (Not detected) Microbiology - Last 24 Hours (Table) 03/26/25 15:53 Gram Stain - Preliminary Bronchoalviolar Lavage - Left Bronchial Washings Culture - Preliminary Serratia marcescens
[2025-03-29] MEDS: methylPREDNISolone SOD SUCCI 40 MG/ML 1 ML VIAL IV SCH (12:31)
--- NOTE | 2025-03-29 13:43 | OP ---
OPERATIVE REPORT DATE OF SERVICE : OPERATION: Bronchoscopy; suctioning of the mucus plugs from the left mainstem bronchus; bronchoalveolar lavage of the left upper lobe lingula and left lower lobe; bronchoalveolar lavage of right middle lobe and right lower lobe; and instilling of N- acetylcysteine in the left lower lobe, lingula, and the left mainstem bronchus. PREOPERATIVE DIAGNOSIS: Recurrent left mainstem bronchus obstruction with mucus plugs and opacification of the left lungs. POSTOPERATIVE DIAGNOSIS: Recurrent left mainstem bronchus obstruction with mucus plugs and opacification of the left lungs. ANESTHESIA USED: General anesthetic. DESCRIPTION OF PROCEDURE: The patient was already in the ICU. He was intubated by MANAGER WINTER, placed on mechanical ventilation. An adapter was applied to the end of the endotracheal tube. The patient was being mechanically ventilated. We were monitoring his O2 saturation continuously. Blood pressure was continuously monitored and his cardiac rhythm was continuously monitored. The bronchoscope was advanced through the endotracheal tube down to the distal end. There were significant amount of mucus plugs in the endotracheal tube itself, and I was able to suction all the thick, copious secretion from the endotracheal tube and as I reached to the end of the endotracheal tube, there were also mucus plugs noted in the area of the aisha, left mainstem, and some of them were at the right mainstem. All the secretions were suctioned, and I was able to clear the left mainstem bronchus completely and I was able to clear the right mainstem bronchus completely. Then there were mucus plugs also noted in the airways bilaterally. Lavage of the left upper lobe was done. Lavage of the right left upper lobe was done. Lingula lavage was done and left lower lobe lavage was done until all secretions were cleared. I then moved to the right side and did the same. Right upper lobe, right middle lobe, right lower lobe were all lavaged until all the secretions were suctioned out. Then 1 mL of N-acetylcysteine was instilled in the left lower lobe, another 1 mL instilled in the lingula and 1 mL instilled in the left mainstem bronchus. Procedure was well tolerated, no complications, airways were cleared completely, and no specimen was sent since we already had this done few days ago and we noted the patient has Serratia marcescens infection. Again, no complications. Procedure was well tolerated. The patient will be kept mechanically ventilated because of recurrent mucus plugs involving the left mainstem bronchus. MMODL / IJN: [id number] /
[2025-03-29 17:25] LABS: Glucose,Whole Blood 208 mg/dL (70-110)
[2025-03-29 19:36] LABS: Glucose,Whole Blood 190 mg/dL (70-110)
[2025-03-29 23:59] LABS: Glucose,Whole Blood 215 mg/dL (70-110)
[2025-03-30] MEDS ORDERED: ZINC OXIDE PASTE (Z-GUARD) 1 APPLIC TOPICAL PRN (01:27)
[2025-03-30 05:47] LABS: Glucose,Whole Blood 222 mg/dL (70-110)
[2025-03-30 06:02] LABS: Glucose,Whole Blood 218 mg/dL (70-110)
[2025-03-30 06:04] LABS: ABG HCO3 27 mmol/L (21-25); ABG PCO2 37 mmHg (35-45); ABG PH 7.47 (7.35-7.45); ABG PO2 122 mmHg (83-108); ABG TCO2 28 mmol/L (19-24); Allen Test Performed? Yes
[2025-03-30 07:16] LABS: Basophils # (A) 0.03 10*3/uL (0.00-0.10); Basophils % (A) 0.2 %; Eosinophils # (A) 0.00 10*3/uL (0.04-0.35); Eosinophils % (A) 0.0 %; HCT 33.7 % (39.6-50.0); HGB 11.3 g/dL (13.0-17.0); Lymphocytes # (A) 0.55 10*3/uL (0.90-5.00); Lymphocytes % (A) 2.8 %; MCH 29.7 pg (27.0-32.0); MCHC 33.5 g/dL (32.0-37.0); MCV 88.7 fL (80.0-97.0); Monocytes # (A) 1.19 10*3/uL (0.20-1.00); Monocytes % (A) 6.0 %; Neutrophils # (A) 17.01 10*3/uL (1.80-7.70); Neutrophils % (A) 86.0 %; Platelet Count 211 10*3/uL (140-440); RBC 3.80 10*6/uL (4.40-5.60); RDW 13.9 % (11.5-14.5); WBC 19.76 10*3/uL (4.50-10.00)
[2025-03-30 07:21] LABS: ALT 84 U/L (4-49); AST 23 U/L (17-59); African American GFR (CKD) >90 (>60 ml/min/1.73 sqM); Albumin 2.2 g/dL (3.5-5.0); Alkaline Phosphatase 46 U/L (38-126); Anion Gap 3 mmol/L; Blood Urea Nitrogen 25 mg/dL (9-20); Calcium 8.1 mg/dL (8.4-10.2); Carbon Dioxide 25 mmol/L (22-30); Chloride 110 mmol/L (98-107); Glucose 208 mg/dL (74-99); Non-African American GFR(CKD) >90 (>60 ml/min/1.73 sqM); Potassium 4.3 mmol/L (3.5-5.1); Sodium 138 mmol/L (137-145); Total Protein 4.4 g/dL (6.3-8.2)
--- NOTE | 2025-03-30 08:19 | XR ---
EXAMINATION TYPE: XR chest 1V portable DATE OF EXAM: 03/30/2025 5:32 AM COMPARISON: 03/29/2025 CLINICAL INDICATION: Male, 64 years old with history of Tube placement, , FINDINGS: ETT and NG tube satisfactory. This appears to be an expiratory exposure limiting assessment of the lo wer lungs. Heart appears borderline in size. Hazy density left mid and lower lung suggests possible s mall to moderate left pleural effusion similar to slightly worsened. Suspect a band of atelectasis at the right perihilar region. ACDF and posterior cervical fusion hardware. Posterior midline skin stap les. IMPRESSION: Expiratory exposure limiting assessment. Possible worsening [id number] left pleural effusion w ith adjacent atelectasis and/or consolidation. Suspect a new band of atelectasis at the right hilum. [facility], Workstation: [email or web address] ANTONIO, 03/30/2025 8:17 AM
[2025-03-30] MEDS: INSULIN GLARGINE (LANTUS) 100 UNIT/ML SYR SQ SCH (08:22)
[2025-03-30] MEDS: CHLORHEXIDINE GLUCONATE 15 ML CUP MUCOUS MEM SCH (09:23)
--- NOTE | 2025-03-30 10:52 | P.PN ---
Subjective Progress Note Date: 03/30/25 Principal diagnosis: Acute hypoxic respiratory failure with left lower lobe atelectasis, pneumonia, and left lung collapse/opacification. This is a 64-year-old male patient was undergone a C 7 T1 discectomy, done posteriorly with wide laminectomy and foraminotomy and partial facetectomy. The patient was experiencing cervical myelopathy with severe bilateral lower extremity weakness and T8 paresthesia. The patient has previous history of cervical spine fusion C2-C7. The patient was found to have a large herniated disc C7-T1 with severe spinal cord stenosis and based on that the patient was taken to the operating room and underwent a C7-T1 discectomy on 03/21/2025. The patient has become progressively more hypoxic. Currently he is on Airvo at 60 L and FiO2 of 90%. His current pulse ox is in order of 90 to 93%. Slightly tachycardic. Blood pressure is also soft at 89/62. Based on worsening hypoxemia, CT of the chest was done and the patient was found to have s ignificant volume loss in the left lung compared to the right. There is marked volume loss and atelectasis in addition to an area of consolidation in the left upper lobe and elevation of the left hemidiaphragm in addition to significant gastric distention. The patient has dilated air in the stomach and colon. Blood work shows a white cell count of 14, hemoglobin 12.4 and a platelet count of 175. Sodium levels at 137, bicarb is at 23, potassium level is at 4.3 with a chloride of 102. BUN 23 with a creatinine of 0.9. The patient is resting comfortably in bed. He is wearing a hard neck collar. He is reporting some mild shortness of breath even at rest. He is tolerating the Airvo. He is currently on IV Solu-Medrol 100 mg every 6 hours post neck surgery. He is also on IV fluids with l normal saline at rate of 75 cc an hour. Comorbidities include hypertension, hyperlipidemia, diabetes mellitus type 2, obstructive sleep apnea maintained on CPAP therapy on outpatient basis On today's evaluation of 03/23/25, patient is still on the BiPAP pressure of 14 over 6 cm of water and FiO2 has been weaned down to 65%. The patient's abdomen seems to be less distended. He had 2 bowel movements and the patient is also passing flatus. Fluid balance +223 cc over the past 24 hours and the patient remains on normal saline at a rate of 75 cc an hour. Neurologically, unchanged and the patient has absent motor function lower extremities bilaterally. He is on broad-spectrum antibiotics and the patient is currently on Zosyn vancomycin combination. Follow-up chest x-ray shows some interval improvement in aeration in the left lung base. Lung volumes in the left remain small and there is some ongoing atelectatic change at left lower lobe. The patient's white cell count is 11, hemoglobin 11.3 and a platelet count of 180. Electrolytes are all within normal limits. BUN is 40 with a creatinine of 1.05. The patient is able to communicate. He is alert and awake. Denies having any specific complaints. Still wearing a hard neck collar. 03/24/2025, the patient is laying flat in bed and is currently on a BiPAP at a pressure of 14/6 with an FiO2 of 75% overnight and Airvo during the day. He remains on normal saline at rate of 75 cc an hour. Chest x-ray still showing left lower lobe consolidation. Abdomen is soft. He had 3 bowel movements. He is on Lantus insulin. The patient's mentation is awake and alert. Nevertheless, he continues to have profound weakness in the lower extremity and he remains paraplegic. Remains on IV Solu-Medrol. Blood sugars are elevated and he remains on Lantus 15 units daily and NovoLog sliding scale coverage. The white cell count 11.9, hemoglobin 11.3 and a platelet count of 201. BUN 34 with a creatinine of 0.8. Sodium levels at 136. Blood sugars up to 82. He is postop day #4 following an open decompression and fusion of C7-T1 surgery was done due to a large disc herniation and spinal cord injury. He is also status post fusion and extension from prior fusion C2-7 and near extension fusion down to T3. He is unable to move his legs still. Samuels catheter still in place. Using incentive spirometer. Afebrile. 03/25/2025, the patient is being seen for a follow-up. Repeat chest x-ray was done and shows ongoing volume loss and atelectasis in the left lung base. I also performed an ultrasound of the chest and there is no sizable pleural effusion for thoracentesis. Findings are more consistent with consolidation/atelectasis. Remains on Airvo at 60 L and FiO2 of 90%. Incentive spirometer. Overnight, using BiPAP pressure of 14/6 and use of water with an FiO2 of 80%. Remains in normal [place] rate of 75 cc an hour. Fluid balance is +550 cc over the past 24 hours. No respiratory difficulties. The white cell count of 12. Hemoglobin is 10.9. Platelet count is 210. BUN is 32 with a creatinine of 0.8. Sodium levels at 138 and potassium levels of 4.2. Remains on Zosyn and vancomycin. Neurologically unchanged and the patient continues to be paraplegic. Patient was seen today on 03/26/2025, patient remains in the ICU, he is on Airvo at 90% and 60 L flow, patient is generally weak, alert and appropriate, IV fluid at 75 cc/h, continues to have weakness from the waist down. Patient had cervical spine surgery postoperative day #6. Chest x-ray showed complete opacification of the left lung consistent with mucous plugging involving the left mainstem bronchus. Hence I discussed this with the patient today, patient needs to be bronchoscope, needs to have extraction of mucous plugs. Considering the patient is marginal at best, will need to be intubated and placed on mechanical ventilation for the procedure. Based on the findings we will decide whether the patient needs to remain on mechanical ventilation after bronchoscopy or not. Most likely he will remain ventilated after the bronchoscopy. Patient has a bit of leukocytosis with WBC of 13.3 hemoglobin 11.3 electrolytes are normal renal profile is normal. Nasal screen has been positive for MSSA not MRSA. Patient was seen today on 03/27/2025, patient remains intubated and mechanically ventilated, kept him on mechanical ventilation after his bronchoscopy yesterday and suctioning of mucous plugs from the left mainstem bronchus and left lung. Left lung continues to show good inflation, minimal left lower lobe atelectasis, patient is on assist-control rate of 18 tidal volume 550 FiO2 50% and PEEP of 8 ABG today showed a pO2 of 84 pCO2 37 pH of 7.41. Patient is also on propofol at 50 mg/kg/min IV fluids at 75 cc/h on antibiotics in the form of Zosyn and vancomycin, antibiotics to be changed once we have the final culture from the BAL. I plan to wean the patient today, possibly consider placing him on BiPAP 12/6/50% assuming he tolerates weaning and he passes his weaning parameters. Patient is awake, follows instructions, although he is still on propofol. WBC count is 14.48 hemoglobin 10.8 electrolytes are normal, BUN is 29 creatinine 0.7 Patient was seen today on 03/28/2025, patient was extubated yesterday, had to be placed on BiPAP to avoid atelectasis again of the left lung and mucous plugging patient has very poor cough, cannot clear his secretions, and his chest x-ray today is beginning to show early atelectasis in the left lower lobe, questionable effusion but ultrasound did not show much fluid. I believe it is all a picture of atelectasis involving the left lower lobe and I am afraid that the patient may have reopacification of the left lung in the next 24 hours. In the meantime I will continue patient on BiPAP, will recommend chest PT, N- acetylcysteine and albuterol, Mucinex, and hopefully we can avoid another bronchoscopy. Otherwise if the patient opacifies left lung again, may have to be bronchoscope again. And if we do I will keep him longer on mechanical ventilation. Patient remains on antibiotics/broad-spectrum he is WBC count is 19.36 hemoglobin is 10.7 electrolytes are normal renal profile is normal. Seen today on 03/29/2025, patient remains in the ICU, chest x-ray is showing wo rsening and he is again having near complete opacification of the left lung. Apparently the patient is developing mucous plugging again involving the left mainstem bronchus and the cultures from his last BAL came back showing Serratia marcescens. Considering the patient's critical illness, I am transitioning Zosyn to Merrem for better coverage of Serratia. Sensitivity is still pending on the organism. But empirically Merrem would be a better choice for Serratia marcescens for the time being. Patient still on BiPAP at 14/6/60%, and considering his abnormal chest x-ray, I am recommending bronchoscopy again and this has to be again done with the patient intubated as his O2 saturation is ma rginal even on 60% BiPAP. Patient looks comfortable, he is not in distress. Continues to have leukocytosis with WC of 23.23 hemoglobin 11.2 basic metabolic profile is normal renal profile is normal continues to have cervical collar in place. Patient was seen today on 03/30/2025, remains in the ICU, intubated and mechanically ventilated, patient is on assist-control rate of 18 tidal volume 550 FiO2 50% PEEP of 10 ABG showed a pO2 of 122 pCO2 37 pH of 7.47 hence FiO2 was cut down to 40%. Remains on Merrem remains on propofol at 40 mcg/kg/min and on Versed 1 mg/h. Patient is sedated, does not seem to be in any distress, chest x-ray is showing slight worsening in the left lower lobe, but not severe enough to justify bronchoscopy again. However considering this I am not planning to extubate the patient today as if extubated he will most likely end up requiring bronchoscopy again. Patient had positive cultures for Serratia marcescens, and is now on Merrem. Labs today were reviewed patient has leukocytosis with WBC count of 19.7 hemoglobin 11.3, basic metabolic profile is normal renal profile is normal patient is on nutritional support/enteral feeding. Chest x-ray today is a bit worrisome hence no plans to wean and extubate today. Objective - Vital Signs Vital signs: Vital Signs Temp 98.2 F 03/30/25 08:00 Pulse 72 03/30/25 10:00 Resp 18 03/30/25 10:00 BP 118/66 03/30/25 10:00 Pulse Ox 95 03/30/25 10:00 FiO2 50 03/30/25 08:30 Intake & Output 03/29/25 03/30/25 03/30/25 18:59 06:59 18:59 Intake Total 649.652 372.808 235.379 Output Total 1180 1475 275 Balance -530.348 -1102.192 -39.621 Weight 114.7 kg Intake: IV 425 100 Meropenem 1 gm In Sodium 100 100 Chloride 0.9% 100 ml @ 33 .3 mls/hr IVPB Q8HR [facility] Rx#:[id number] Piperacillin-Tazobactam 3 100 .375 gm In Sodium Chloride 0.9% 100 ml @ 25 mls/hr IVPB Q8HR [facility] Rx# :[id number] Sodium Chloride 0.9% 1, 225 000 ml @ 75 mls/hr IV . [id number] [facility] Rx#:[id number] Intake, IV Titration 224.652 372.808 135.379 Amount IV Fluid Continuation 1, 50 000 ml @ 0 mls/hr IV .[facility] Rx#:[id number] propofoL 1,000 mg In 224.652 372.808 85.379 Empty Bag 1 bag @ 15 MCG/ KG/MIN 10.476 mls/hr IV . [id number] [facility] Rx#:[id number] Output: Urine 1180 1475 275 Other: Voiding Method Indwelling Catheter Indwelling Catheter Indwelling Catheter - Exam General: Reveals 64-year-old white male, intubated, sedated, mechanically ventilated Derm: No rashes. Head: atraumatic, normocephalic, symmetric endotracheal tube and orogastric tube are intact continues to have a cervical collar in place. Eyes: EOMI, anicteric sclera Mouth: Moist mucous membranes, no evidence of lesions Cardiovascular: Distant S1 S2 reg, no murmur, rubs, or gallops Lungs: Good breath sound bilaterally slightly diminished at the left base right side is clear Abdominal: soft, a bowel sounds are present Extremities: no gross muscle atrophy, no edema, no contractures, Neuro: Could not assess sedated on propofol and Versed Psych: Could not assess - Labs CBC & Chem 7: 03/30/25 05:14 03/30/25 05:14 Labs: Abnormal Lab Results - Last 24 Hours (Table) 03/29/25 03/29/25 03/29/25 Range/Units 11:55 17:24 19:34 WBC (4.50-10.00) 10*3/uL RBC (4.40-5.60) 10*6/uL Hgb (13.0-17.0) g/dL Hct (39.6-50.0) % Immature Gran # (0.00-0.04) 10*3/uL Neutrophils # (1.80-7.70) 10*3/uL Lymphocytes # (0.90-5.00) 10*3/uL Monocytes # (0.20-1.00) 10*3/uL Eosinophils # (0.04-0.35) 10*3/uL ABG pH (7.35-7.45) ABG pO2 (83-108) mmHg ABG HCO3 (21-25) mmol/L ABG Total CO2 (19-24) mmol/L ABG O2 Saturation (94-97) % Hemoglobin (13.0-17.5) gm/dL Chloride (98-107) mmol/L BUN (9-20) mg/dL Creatinine (0.66-1.25) mg/dL Glucose (74-99) mg/dL POC Glucose (mg/dL) 214 H 208 H 190 H (70-110) mg/dL Calcium (8.4-10.2) mg/dL ALT (4-49) U/L Total Protein (6.3-8.2) g/dL Albumin (3.5-5.0) g/dL 03/29/25 03/30/25 03/30/25 Range/Units 23:57 05:14 05:14 WBC 19.76 H (4.50-10.00) 10*3/uL RBC 3.80 L (4.40-5.60) 10*6/uL Hgb 11.3 L (13.0-17.0) g/dL Hct 33.7 L (39.6-50.0) % Immature Gran # 0.98 H (0.00-0.04) 10*3/uL Neutrophils # 17.01 H (1.80-7.70) 10*3/uL Lymphocytes # 0.55 L (0.90-5.00) 10*3/uL Monocytes # 1.19 H (0.20-1.00) 10*3/uL Eosinophils # 0.00 L (0.04-0.35) 10*3/uL ABG pH (7.35-7.45) ABG pO2 (83-108) mmHg ABG HCO3 (21-25) mmol/L ABG Total CO2 (19-24) mmol/L ABG O2 Saturation (94-97) % Hemoglobin (13.0-17.5) gm/dL Chloride 110 H (98-107) mmol/L BUN 25 H (9-20) mg/dL Creatinine 0.49 L (0.66-1.25) mg/dL Glucose 208 H (74-99) mg/dL POC Glucose (mg/dL) 215 H (70-110) mg/dL Calcium 8.1 L (8.4-10.2) mg/dL ALT 84 H (4-49) U/L Total Protein 4.4 L (6.3-8.2) g/dL Albumin 2.2 L (3.5-5.0) g/dL 03/30/25 03/30/25 03/30/25 Range/Units 05:46 05:57 06:00 WBC (4.50-10.00) 10*3/uL RBC (4.40-5.60) 10*6/uL Hgb (13.0-17.0) g/dL Hct (39.6-50.0) % Immature Gran # (0.00-0.04) 10*3/uL Neutrophils # (1.80-7.70) 10*3/uL Lymphocytes # (0.90-5.00) 10*3/uL Monocytes # (0.20-1.00) 10*3/uL Eosinophils # (0.04-0.35) 10*3/uL ABG pH 7.47 H (7.35-7.45) ABG pO2 122 H (83-108) mmHg ABG HCO3 27 H (21-25) mmol/L ABG Total CO2 28 H (19-24) mmol/L ABG O2 Saturation 99.2 H (94-97) % Hemoglobin 11.8 L (13.0-17.5) gm/dL Chloride (98-107) mmol/L BUN (9-20) mg/dL Creatinine (0.66-1.25) mg/dL Glucose (74-99) mg/dL POC Glucose (mg/dL) 222 H 218 H (70-110) mg/dL Calcium (8.4-10.2) mg/dL ALT (4-49) U/L Total Protein (6.3-8.2) g/dL Albumin (3.5-5.0) g/dL Microbiology - Last 24 Hours (Table) 03/26/25 15:53 Gram Stain - Final Bronchoalviolar Lavage - Left Bronchial Washings Culture - Final Serratia marcescens Assessment and Plan Assessment: Impression: Acute hypoxic respiratory failure, secondary to recurrent episodes of left lung collapse and opacification mostly because the patient cannot clear his secretion s and he has a very poor cough, in addition his sputum/BAL has been positive for Serratia. Recurrent opacification of left lung secondary to mucous plugging requiring bronchoscopy and suctioning of mucous plugs and BAL twice last 1 was yesterday. Left-sided pneumonia secondary to Serratia marcescens, patient will remain on Merrem for now. Severe spinal canal stenosis at C7-T1 status post discectomy and decompression and fusion patient is now postoperative day #10 Obstructive sleep apnea syndrome on CPAP normally Type 2 diabetes Hypotension could be related to sepsis could also be neurogenic post spinal surgery Dyslipidemia Bilateral lower extremities weakness related to his spinal issues/cer vical/thoracic spine issues T8 paresthesia History of severe L5-S1 neuroforaminal stenosis Recommendation: Continue ventilatory support Continue nutritional support Continue GI DVT prophylaxis Continue chest physical therapy Continue Mucomyst and N-acetylcysteine and updrafts No plans to wean and extubate today as the chest x-ray is concerning Continue Merrem for Serratia marcescens pneumonia Continue cervical collar Continue pain control Patient is critically ill Critical care time is 32 minutes Time with Patient: Greater than 30
[2025-03-30] MEDS: INSULIN GLARGINE (LANTUS) 100 UNIT/ML SYR SQ STA (11:05)
[2025-03-30 11:50] LABS: Glucose,Whole Blood 209 mg/dL (70-110)
--- NOTE | 2025-03-30 12:09 | P.PN ---
Subjective Progress Note Date: 03/30/25 This is a 64 year old male who is status post open decompression and fusion C7- T1. This is postoperative day #10 and patient is seen and evaluated in the ICU today. Patient is currently intubated. Per nursing, the patient is responding well to commands and they noticed bloody drainage from his incision on his sheets and pillow today. Objective - Vital Signs Vital signs: Vital Signs Temp 98.2 F 03/30/25 08:00 Pulse 73 03/30/25 11:48 Resp 18 03/30/25 10:00 BP 118/66 03/30/25 10:00 Pulse Ox 95 03/30/25 10:00 FiO2 50 03/30/25 11:36 Intake & Output 03/29/25 03/30/25 03/30/25 18:59 06:59 18:59 Intake Total 649.652 372.808 344.282 Output Total 1180 1475 275 Balance -530.348 -1102.192 69.282 Weight 114.7 kg 114.7 kg Intake: IV 425 100 Meropenem 1 gm In Sodium 100 100 Chloride 0.9% 100 ml @ 33 .3 mls/hr IVPB Q8HR [facility] Rx#:[id number] Piperacillin-Tazobactam 3 100 .375 gm In Sodium Chloride 0.9% 100 ml @ 25 mls/hr IVPB Q8HR [facility] Rx# :[id number] Sodium Chloride 0.9% 1, 225 000 ml @ 75 mls/hr IV . [id number] [facility] Rx#:[id number] Intake, IV Titration 224.652 372.808 244.282 Amount IV Fluid Continuation 1, 50 000 ml @ 0 mls/hr IV .[facility] Rx#:[id number] Midazolam HCl 50 mg In 23 Sodium Chloride 0.9% 40 ml @ 1 MG/HR 1 mls/hr IV .Q24H [facility] Rx#:[id number] propofoL 1,000 mg In 224.652 372.808 171.282 Empty Bag 1 bag @ 15 MCG/ KG/MIN 10.476 mls/hr IV . Q9H33M [facility] Rx#:[id number] Output: Urine 1180 1475 275 Other: Voiding Method Indwelling Catheter Indwelling Catheter Indwelling Catheter - Exam On exam patient is intubated with c-collar intact. Dressing removed. Skin jarad intact. No active drainage. Moderate bloody drainage on dressing and pillow from the incision posteriorly. - Labs CBC & Chem 7: 03/30/25 05:14 03/30/25 05:14 Labs: Abnormal Lab Results - Last 24 Hours (Table) 03/29/25 03/29/25 03/29/25 Range/Units 17:24 19:34 23:57 WBC (4.50-10.00) 10*3/uL RBC (4.40-5.60) 10*6/uL Hgb (13.0-17.0) g/dL Hct (39.6-50.0) % Immature Gran # (0.00-0.04) 10*3/uL Neutrophils # (1.80-7.70) 10*3/uL Lymphocytes # (0.90-5.00) 10*3/uL Monocytes # (0.20-1.00) 10*3/uL Eosinophils # (0.04-0.35) 10*3/uL ABG pH (7.35-7.45) ABG pO2 (83-108) mmHg ABG HCO3 (21-25) mmol/L ABG Total CO2 (19-24) mmol/L ABG O2 Saturation (94-97) % Hemoglobin (13.0-17.5) gm/dL Chloride (98-107) mmol/L BUN (9-20) mg/dL Creatinine (0.66-1.25) mg/dL Glucose (74-99) mg/dL POC Glucose (mg/dL) 208 H 190 H 215 H (70-110) mg/dL Calcium (8.4-10.2) mg/dL ALT (4-49) U/L Total Protein (6.3-8.2) g/dL Albumin (3.5-5.0) g/dL 03/30/25 03/30/25 03/30/25 Range/Units 05:14 05:14 05:46 WBC 19.76 H (4.50-10.00) 10*3/uL RBC 3.80 L (4.40-5.60) 10*6/uL Hgb 11.3 L (13.0-17.0) g/dL Hct 33.7 L (39.6-50.0) % Immature Gran # 0.98 H (0.00-0.04) 10*3/uL Neutrophils # 17.01 H (1.80-7.70) 10*3/uL Lymphocytes # 0.55 L (0.90-5.00) 10*3/uL Monocytes # 1.19 H (0.20-1.00) 10*3/uL Eosinophils # 0.00 L (0.04-0.35) 10*3/uL ABG pH (7.35-7.45) ABG pO2 (83-108) mmHg ABG HCO3 (21-25) mmol/L ABG Total CO2 (19-24) mmol/L ABG O2 Saturation (94-97) % Hemoglobin (13.0-17.5) gm/dL Chloride 110 H (98-107) mmol/L BUN 25 H (9-20) mg/dL Creatinine 0.49 L (0.66-1.25) mg/dL Glucose 208 H (74-99) mg/dL POC Glucose (mg/dL) 222 H (70-110) mg/dL Calcium 8.1 L (8.4-10.2) mg/dL ALT 84 H (4-49) U/L Total Protein 4.4 L (6.3-8.2) g/dL Albumin 2.2 L (3.5-5.0) g/dL 03/30/25 03/30/25 03/30/25 Range/Units 05:57 06:00 11:49 WBC (4.50-10.00) 10*3/uL RBC (4.40-5.60) 10*6/uL Hgb (13.0-17.0) g/dL Hct (39.6-50.0) % Immature Gran # (0.00-0.04) 10*3/uL Neutrophils # (1.80-7.70) 10*3/uL Lymphocytes # (0.90-5.00) 10*3/uL Monocytes # (0.20-1.00) 10*3/uL Eosinophils # (0.04-0.35) 10*3/uL ABG pH 7.47 H (7.35-7.45) ABG pO2 122 H (83-108) mmHg ABG HCO3 27 H (21-25) mmol/L ABG Total CO2 28 H (19-24) mmol/L ABG O2 Saturation 99.2 H (94-97) % Hemoglobin 11.8 L (13.0-17.5) gm/dL Chloride (98-107) mmol/L BUN (9-20) mg/dL Creatinine (0.66-1.25) mg/dL Glucose (74-99) mg/dL POC Glucose (mg/dL) 218 H 209 H (70-110) mg/dL Calcium (8.4-10.2) mg/dL ALT (4-49) U/L Total Protein (6.3-8.2) g/dL Albumin (3.5-5.0) g/dL Microbiology - Last 24 Hours (Table) 03/26/25 15:53 Gram Stain - Final Bronchoalviolar Lavage - Left Bronchial Washings Culture - Final Serratia marcescens Assessment and Plan Assessment: Acute spinal cord injury with flaccid paralysis bilateral lower extremities Status post open decompression and fusion C7-T1 due to large disc herniation C7- T1 with spinal cord injury Status post fusion with extension from prior fusion C2-C7 with new extension of fusion down to T3 Acute respiratory failure being managed with critical care. Plan: Maintain c collar. The surgical site appears stable. Dressing changes as needed. Patient is currently intubated and being managed by critical care team. We will continue to follow closely.
--- NOTE | 2025-03-30 14:43 | P.PN ---
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 Wheeler) approximately 2 months ago, migraine headaches, depression. Presented to the emergency department with a chief complaint of sudden onset numbness extending from periumbilical region downwards throughout groin and bilateral lower extremities followed by weakness of bilateral lower extremities. Patient states he was moving some plants at home when he had sudden onset of numbness around his lower abdomen circling around him like a belt that quickly radiated into his groin and into bilateral lower extremities accompanied by weakness of bilateral lower extremities which resulted in his legs giving out from beneath him causing him to fall to the ground. Patient denied having any dizziness or lightheadedness, headache, neck or back pain, or experiencing any pain in his abdomen, groin, or lower extremities. He denies hitting his head during the fall and denies having any loss of consciousness. But reports due to the sudden onset numbness and weakness he was unable to stand back up and had to have his call EMS for transfer to the hospital. Upon arrival to our facility, patient underwent evaluation in the emergency department. Vital signs upon arrival show blood pressure 165/97, heart rate 88, respiratory rate 18, temp 98.8 F, and SpO2 of 97% on room air. CT lumbar spine CT abdomen and pelvis was also negative for acute intra-abdominal process completed showing no evidence for spinal fracture, no evidence for significant spinal canal stenosis revealing severe right L5-S1 neuroforaminal stenosis and moderate bilateral L4-L5 neuroforaminal stenosis, revealing a right middle lobe pulmonary nodule 8 mm, prostamegaly, colonic diverticulosis, and bilateral adrenal myolipoma's. Labs completed and reviewed. CBC unremarkable. BMP showing hyperglycemia with blood glucose of 146. Liver profile normal findings. Urinalysis positive for glucose and ketones but negative for infection. Patient was admitted under services with consultation to neurology and orthospine surgery. MRI lumbar spine was completed showing no definitive evidence of disc herniation or significant spinal canal stenosis revealing minimal disc degeneration with associated osteoarthritic changes. Patient underwent extensive cervical spinal surgery on the evening of 03/20/2025 through 03/21/2025. Subjective: Patient was seen and examined at bedside in ICU. Intubated and on propofol. General: Intubated HEENT: normocephalic, atraumatic, no tracheal deviation Respiratory: symmetric chest rise, no cyanosis, clear to auscultation bilaterally CVS: perfusing all extremities, no distal gangrene, bilateral pitting edema GI: soft, ND, nontender to palpation : no SPT, no CVAT, disla is present\\ Data Reviewed: WBC 19.76, hemoglobin 11.3, hematocrit 33.7, platelets 211, sodium 138, potassium 4.3, chloride 110, BUN 25, creatinine 0.49, glucose 208-218 Bronchoscopy on 03/26/2025 showed left lung collapse secondary to mucous plugging involving the left mainstem bronchus Repeat bronchoscopy on 03/29/2025 showed recurrent left mainstem bronchus obstruction with mucous plugs and opacification of the left lungs Chest x-ray on 03/30/2025 showed expiratory exposure limiting assessment. Possible worsening small to moderate left pleural effusion with adjacent atelectasis and/or consolidation. Suspect a new band of atelectasis at the right hilum. Assessment and Plan: Acute hypoxemic respiratory failure secondary to severe atelectasis and mucous plugging status post bronchoscopy x 2 Suspected underlying pneumonia secondary to Serratia CT angio of chest shows markedly progressive left lung volume loss with marked atelectasis increasing suspicion for endobronchial obstruction/neoplasm and further evaluation may be indicated. Interval development of mild right lower lobe atelectasis. Continue DuoNebs 4 times daily and every 2 hours as needed Encourage incentive spirometry Continue meropenem 1 g IV every 8 hours Continue with Mucomyst Continue BiPAP Bronchial washings culture showed positive for Serratia, nasal swab showed positive for Staph aureus, not MRSA Continue to wean mechanical ventilation Cervical myelopathy secondary to severe spinal canal stenosis involving C7-T1 Status post extensive cervical decompression with discectomy at C7-T1 and fusion with extension of fusion from C3-C7 with new extension down to T3 Severe right L5-S1 neuroforaminal stenosis Moderate bilateral L4-L5 neuroforaminal stenosis - Orthopedic surgery following status post extensive cervical decompression with dissecting at C7-T1 and fusion with extension of fusion from C3-C7 with new extension down to T3 - Continue inpatient rehab - Resume lisinopril, hydralazine as needed - Continue neurochecks every 4 hours and as needed. -Continue Solu-Medrol to 40 mg IV every 6 hours - Maintain fall precautions - Continue Disla catheter management - Continue Unna boot bilaterally to prevent foot drop - PT/OT following - Neurology consultation is appreciated - Orthopedic note reviewed, plan is when patient is medically stable will be discharged to a spinal cord facility for rehabilitation. Type II nbf-vhaitoy-evixrjylr diabetes mellitus with hyperglycemia -Hyperglycemia likely secondary to high-dose steroids being administered at this time. Will continue glycemic protocol with Humalog sliding scale. Currently blood glucose ranging to 194-222 - Increase Lantus to 50 units subcu daily as basal insulin -Continue sliding scale insulin every 6 hours while intubated Bilateral lower extremity edema Bilateral lower extremity Doppler ultrasound negative for DVT Hypertension - Continue lisinopril 40 mg daily Hyperlipidemia - Continue daily medication regimen with atorvastatin 40 mg nightly Obstructive sleep apnea - Continue CPAP nightly and while napping. CODE STATUS: Full code DVT prophylaxis: Lovenox 40 mg subcu daily Anticipated discharge date: Pending clinical course Anticipated discharge place: Pending clinical course I have seen and evaluated the patient today. Discussed with the resident and agree with the residents finding and plan as documented in the resident's note. Changes highlighted in blue font. Objective - Vital Signs Vital signs: Vital Signs Temp 97.9 F 03/30/25 00:00 Pulse 67 03/30/25 06:00 Resp 18 03/30/25 06:00 BP 135/75 03/30/25 06:00 Pulse Ox 97 03/30/25 06:00 FiO2 40 03/30/25 06:09 Intake & Output 03/29/25 03/29/25 03/30/25 06:59 18:59 06:59 Intake Total 1325 649.652 372.808 Output Total 1150 1180 1475 Balance 175 -530.348 -1102.192 Weight 116.4 kg 114.7 kg Intake: IV 825 425 Meropenem 1 gm In Sodium 100 Chloride 0.9% 100 ml @ 33 .3 mls/hr IVPB Q8HR [facility] Rx#:[id number] Piperacillin-Tazobactam 3 100 .375 gm In Sodium Chloride 0.9% 100 ml @ 25 mls/hr IVPB Q8HR [facility] Rx# :[id number] Sodium Chloride 0.9% 1, 825 225 000 ml @ 75 mls/hr IV . [id number] [facility] Rx#:[id number] Intake, IV Titration 224.652 372.808 Amount propofoL 1,000 mg In 224.652 372.808 Empty Bag 1 bag @ 15 MCG/ KG/MIN 10.476 mls/hr IV . Q9H33M [facility] Rx#:[id number] Oral 500 Output: Urine 1150 1180 1475 Other: Voiding Method Indwelling Catheter Indwelling Catheter Indwelling Catheter - Labs CBC & Chem 7: 03/30/25 05:14 03/30/25 05:14 Labs: Abnormal Lab Results - Last 24 Hours (Table) 03/29/25 03/29/25 03/29/25 Range/Units 05:10 11:55 17:24 Neutrophils # (Manual) 21.37 H (1.3-7.7) k/uL ABG pH (7.35-7.45) ABG pO2 (83-108) mmHg ABG HCO3 (21-25) mmol/L ABG Total CO2 (19-24) mmol/L ABG O2 Saturation (94-97) % Hemoglobin (13.0-17.5) gm/dL POC Glucose (mg/dL) 214 H 208 H (70-110) mg/dL 03/29/25 03/29/25 03/30/25 Range/Units 19:34 23:57 05:46 Neutrophils # (Manual) (1.3-7.7) k/uL ABG pH (7.35-7.45) ABG pO2 (83-108) mmHg ABG HCO3 (21-25) mmol/L ABG Total CO2 (19-24) mmol/L ABG O2 Saturation (94-97) % Hemoglobin (13.0-17.5) gm/dL POC Glucose (mg/dL) 190 H 215 H 222 H (70-110) mg/dL 03/30/25 03/30/25 Range/Units 05:57 06:00 Neutrophils # (Manual) (1.3-7.7) k/uL ABG pH 7.47 H (7.35-7.45) ABG pO2 122 H (83-108) mmHg ABG HCO3 27 H (21-25) mmol/L ABG Total CO2 28 H (19-24) mmol/L ABG O2 Saturation 99.2 H (94-97) % Hemoglobin 11.8 L (13.0-17.5) gm/dL POC Glucose (mg/dL) 218 H (70-110) mg/dL Microbiology - Last 24 Hours (Table) 03/26/25 15:53 Gram Stain - Final Bronchoalviolar Lavage - Left Bronchial Washings Culture - Final Serratia marcescens
[2025-03-30 17:28] LABS: Glucose,Whole Blood 202 mg/dL (70-110)
[2025-03-30] MEDS: FLUCONAZOLE IN NACL,ISO-OSM 400 MG in SALINE 1 200ML.BAG IVPB SCH (17:48)
[2025-03-30 18:54] LABS: HCT 34.0 % (39.6-50.0); HGB 11.6 g/dL (13.0-17.0); MCH 30.4 pg (27.0-32.0); MCHC 34.1 g/dL (32.0-37.0); MCV 89.2 fL (80.0-97.0); Platelet Count 195 10*3/uL (140-440); RBC 3.81 10*6/uL (4.40-5.60); RDW 13.9 % (11.5-14.5); WBC 19.49 10*3/uL (4.50-10.00)
[2025-03-30] MEDS: LACTATED RINGERS 1,000 ML IV ONE (19:07)
[2025-03-30 23:26] LABS: Glucose,Whole Blood 226 mg/dL (70-110)
[2025-03-31 03:38] LABS: Basophils # (A) 0.03 10*3/uL (0.00-0.10); Basophils % (A) 0.2 %; Eosinophils # (A) 0.00 10*3/uL (0.04-0.35); Eosinophils % (A) 0.0 %; HCT 34.9 % (39.6-50.0); HGB 11.7 g/dL (13.0-17.0); Lymphocytes # (A) 0.26 10*3/uL (0.90-5.00); Lymphocytes % (A) 1.4 %; MCH 30.1 pg (27.0-32.0); MCHC 33.5 g/dL (32.0-37.0); MCV 89.7 fL (80.0-97.0); Monocytes # (A) 1.06 10*3/uL (0.20-1.00); Monocytes % (A) 5.5 %; Neutrophils # (A) 16.84 10*3/uL (1.80-7.70); Neutrophils % (A) 88.0 %; Platelet Count 195 10*3/uL (140-440); RBC 3.89 10*6/uL (4.40-5.60); RDW 14.4 % (11.5-14.5); WBC 19.12 10*3/uL (4.50-10.00)
[2025-03-31 03:51] LABS: African American GFR (CKD) >90 (>60 ml/min/1.73 sqM); Anion Gap 4 mmol/L; Blood Urea Nitrogen 26 mg/dL (9-20); Calcium 8.5 mg/dL (8.4-10.2); Carbon Dioxide 26 mmol/L (22-30); Chloride 105 mmol/L (98-107); Glucose 257 mg/dL (74-99); Non-African American GFR(CKD) >90 (>60 ml/min/1.73 sqM); Potassium 4.5 mmol/L (3.5-5.1); Sodium 135 mmol/L (137-145)
[2025-03-31 05:18] LABS: ABG HCO3 28 mmol/L (21-25); ABG PCO2 42 mmHg (35-45); ABG PH 7.44 (7.35-7.45); ABG PO2 86 mmHg (83-108); ABG TCO2 29 mmol/L (19-24); Allen Test Performed? Yes
[2025-03-31 05:30] LABS: Glucose,Whole Blood 258 mg/dL (70-110)
[2025-03-31] MEDS: INSULIN GLARGINE (LANTUS) 100 UNIT/ML SYR SQ SCH (06:07)
--- NOTE | 2025-03-31 06:33 | XR ---
EXAMINATION TYPE: XR chest 1V portable DATE OF EXAM: 03/31/2025 CLINICAL INDICATION: Male, 64 years old with history of Tube placement, progress study. TECHNIQUE: Single AP portable semiupright view of the chest is obtained. COMPARISON: Chest x-ray from one day earlier older studies. FINDINGS: Stable endotracheal and orogastric tubes. Suboptimal evaluation of orogastric tube tip sim ilar to prior. Cardiac silhouette size is stable and upper limits of normal. Persistent left mid and lower lung incr eased opacity. Right lung is clear. Extensive surgical change to the cervicothoracic spine is redemon strated. IMPRESSION: Persistent left mid to lower lung acute infiltrate and/or atelectasis and likely small le ft pleural effusion. [facility], , 03/31/2025 6:30 AM
[2025-03-31] MEDS ORDERED: Dulaglutide [Trulicity] 4.5 MG/0.5 ML Each SQ SCH (09:00)
[2025-03-31] MEDS ORDERED: TESTOSTERONE CYPIONATE 200 MG/ML 1ML VIAL IM SCH (09:00)
[2025-03-31] MEDS: MAGNESIUM HYDROXIDE 2,400 MG/30 ML CUP PO PRN (09:28)
--- NOTE | 2025-03-31 10:01 | P.PN ---
Subjective Progress Note Date: 03/31/25 This is a 64 year old male who is status post open decompression and fusion C7- T1. This is postoperative day #11 and patient is seen and evaluated in the ICU today. Patient is currently intubated. Per nursing, no acute changes overnight and no obvious drainage from his incision. Objective - Vital Signs Vital signs: Vital Signs Temp 98.3 F 03/31/25 04:00 Pulse 78 03/31/25 07:54 Resp 18 03/31/25 07:00 BP 112/62 03/31/25 07:00 Pulse Ox 100 03/31/25 07:00 FiO2 40 03/31/25 07:44 Intake & Output 03/30/25 03/31/25 03/31/25 18:59 06:59 18:59 Intake Total 2761.058 3750.090 Output Total 920 1490 Balance 93.486 1755.090 Weight 114.7 kg 115 kg Intake: IV 200 420 Meropenem 1 gm In Sodium 200 200 Chloride 0.9% 100 ml @ 33 .3 mls/hr IVPB Q8HR [facility] Rx#:[id number] kvo 220 Intake, IV Titration 596.391 6203.090 Amount Fluconazole in NaCl,Iso- 200 Osm 400 mg In Saline 1 200ml.bag @ 100 mls/hr IVPB DAILY@1800 [facility] Rx#: [id number] IV Fluid Continuation 1, 190 20 000 ml @ 0 mls/hr IV .[facility] Rx#:[id number] Lactated Ringers 1,000 ml 2000 @ 999 mls/hr IV .Q1H1M [facility] Rx#:[id number] Midazolam HCl 50 mg In 23 Sodium Chloride 0.9% 40 ml @ 1 MG/HR 1 mls/hr IV .Q24H [facility] Rx#:[id number] propofoL 1,000 mg In 400.486 343.090 Empty Bag 1 bag @ 15 MCG/ KG/MIN 10.476 mls/hr IV . Q9H33M [facility] Rx#:[id number] Tube Feeding 372 Other 90 Output: Urine 920 1490 Other: Voiding Method Indwelling Catheter Indwelling Catheter - Exam On exam patient is intubated with c-collar intact. Dressing is clean, dry and intact. - Labs CBC & Chem 7: 03/31/25 03:01 03/31/25 03:01 Labs: Abnormal Lab Results - Last 24 Hours (Table) 03/30/25 03/30/25 03/30/25 Range/Units 11:49 17:27 18:46 WBC 19.49 H (4.50-10.00) 10*3/uL RBC 3.81 L (4.40-5.60) 10*6/uL Hgb 11.6 L (13.0-17.0) g/dL Hct 34.0 L (39.6-50.0) % Immature Gran # (0.00-0.04) 10*3/uL Neutrophils # (1.80-7.70) 10*3/uL Lymphocytes # (0.90-5.00) 10*3/uL Monocytes # (0.20-1.00) 10*3/uL Eosinophils # (0.04-0.35) 10*3/uL ABG HCO3 (21-25) mmol/L ABG Total CO2 (19-24) mmol/L Hemoglobin (13.0-17.5) gm/dL Sodium (137-145) mmol/L BUN (9-20) mg/dL Creatinine (0.66-1.25) mg/dL Glucose (74-99) mg/dL POC Glucose (mg/dL) 209 H 202 H (70-110) mg/dL 03/30/25 03/31/25 03/31/25 Range/Units 23:25 03:01 03:01 WBC 19.12 H (4.50-10.00) 10*3/uL RBC 3.89 L (4.40-5.60) 10*6/uL Hgb 11.7 L (13.0-17.0) g/dL Hct 34.9 L (39.6-50.0) % Immature Gran # 0.93 H (0.00-0.04) 10*3/uL Neutrophils # 16.84 H (1.80-7.70) 10*3/uL Lymphocytes # 0.26 L (0.90-5.00) 10*3/uL Monocytes # 1.06 H (0.20-1.00) 10*3/uL Eosinophils # 0.00 L (0.04-0.35) 10*3/uL ABG HCO3 (21-25) mmol/L ABG Total CO2 (19-24) mmol/L Hemoglobin (13.0-17.5) gm/dL Sodium 135 L (137-145) mmol/L BUN 26 H (9-20) mg/dL Creatinine 0.53 L (0.66-1.25) mg/dL Glucose 257 H (74-99) mg/dL POC Glucose (mg/dL) 226 H (70-110) mg/dL 03/31/25 03/31/25 Range/Units 05:15 05:28 WBC (4.50-10.00) 10*3/uL RBC (4.40-5.60) 10*6/uL Hgb (13.0-17.0) g/dL Hct (39.6-50.0) % Immature Gran # (0.00-0.04) 10*3/uL Neutrophils # (1.80-7.70) 10*3/uL Lymphocytes # (0.90-5.00) 10*3/uL Monocytes # (0.20-1.00) 10*3/uL Eosinophils # (0.04-0.35) 10*3/uL ABG HCO3 28 H (21-25) mmol/L ABG Total CO2 29 H (19-24) mmol/L Hemoglobin 11.8 L (13.0-17.5) gm/dL Sodium (137-145) mmol/L BUN (9-20) mg/dL Creatinine (0.66-1.25) mg/dL Glucose (74-99) mg/dL POC Glucose (mg/dL) 258 H (70-110) mg/dL Microbiology - Last 24 Hours (Table) 03/26/25 15:53 Fungal Culture - Preliminary Bronchoalviolar Lavage - Left Yeast species Assessment and Plan Assessment: Acute spinal cord injury with flaccid paralysis bilateral lower extremities Status post open decompression and fusion C7-T1 due to large disc herniation C7- T1 with spinal cord injury Status post fusion with extension from prior fusion C2-C7 with new extension of fusion down to T3 Acute respiratory failure being managed with critical care. Plan: Maintain c collar. The surgical site appears stable. Dressing changes as needed. Patient is currently intubated and being managed by critical care team. We will continue to follow closely.
[2025-03-31 11:47] LABS: Glucose,Whole Blood 257 mg/dL (70-110)
--- NOTE | 2025-03-31 12:45 | P.PN ---
Subjective Progress Note Date: 03/31/25 Principal diagnosis: Acute hypoxic respiratory failure with left lower lobe atelectasis, pneumonia, and left lung collapse/opacification. This is a 64-year-old male patient was undergone a C 7 T1 discectomy, done posteriorly with wide laminectomy and foraminotomy and partial facetectomy. The patient was experiencing cervical myelopathy with severe bilateral lower extremity weakness and T8 paresthesia. The patient has previous history of cervical spine fusion C2-C7. The patient was found to have a large herniated disc C7-T1 with severe spinal cord stenosis and based on that the patient was taken to the operating room and underwent a C7-T1 discectomy on 03/21/2025. The patient has become progressively more hypoxic. Currently he is on Airvo at 60 L and FiO2 of 90%. His current pulse ox is in order of 90 to 93%. Slightly tachycardic. Blood pressure is also soft at 89/62. Based on worsening hypoxemia, CT of the chest was done and the patient was found to have s ignificant volume loss in the left lung compared to the right. There is marked volume loss and atelectasis in addition to an area of consolidation in the left upper lobe and elevation of the left hemidiaphragm in addition to significant gastric distention. The patient has dilated air in the stomach and colon. Blood work shows a white cell count of 14, hemoglobin 12.4 and a platelet count of 175. Sodium levels at 137, bicarb is at 23, potassium level is at 4.3 with a chloride of 102. BUN 23 with a creatinine of 0.9. The patient is resting comfortably in bed. He is wearing a hard neck collar. He is reporting some mild shortness of breath even at rest. He is tolerating the Airvo. He is currently on IV Solu-Medrol 100 mg every 6 hours post neck surgery. He is also on IV fluids with l normal saline at rate of 75 cc an hour. Comorbidities include hypertension, hyperlipidemia, diabetes mellitus type 2, obstructive sleep apnea maintained on CPAP therapy on outpatient basis On today's evaluation of 03/23/25, patient is still on the BiPAP pressure of 14 over 6 cm of water and FiO2 has been weaned down to 65%. The patient's abdomen seems to be less distended. He had 2 bowel movements and the patient is also passing flatus. Fluid balance +223 cc over the past 24 hours and the patient remains on normal saline at a rate of 75 cc an hour. Neurologically, unchanged and the patient has absent motor function lower extremities bilaterally. He is on broad-spectrum antibiotics and the patient is currently on Zosyn vancomycin combination. Follow-up chest x-ray shows some interval improvement in aeration in the left lung base. Lung volumes in the left remain small and there is some ongoing atelectatic change at left lower lobe. The patient's white cell count is 11, hemoglobin 11.3 and a platelet count of 180. Electrolytes are all within normal limits. BUN is 40 with a creatinine of 1.05. The patient is able to communicate. He is alert and awake. Denies having any specific complaints. Still wearing a hard neck collar. 03/24/2025, the patient is laying flat in bed and is currently on a BiPAP at a pressure of 14/6 with an FiO2 of 75% overnight and Airvo during the day. He remains on normal saline at rate of 75 cc an hour. Chest x-ray still showing left lower lobe consolidation. Abdomen is soft. He had 3 bowel movements. He is on Lantus insulin. The patient's mentation is awake and alert. Nevertheless, he continues to have profound weakness in the lower extremity and he remains paraplegic. Remains on IV Solu-Medrol. Blood sugars are elevated and he remains on Lantus 15 units daily and NovoLog sliding scale coverage. The white cell count 11.9, hemoglobin 11.3 and a platelet count of 201. BUN 34 with a creatinine of 0.8. Sodium levels at 136. Blood sugars up to 82. He is postop day #4 following an open decompression and fusion of C7-T1 surgery was done due to a large disc herniation and spinal cord injury. He is also status post fusion and extension from prior fusion C2-7 and near extension fusion down to T3. He is unable to move his legs still. Samuels catheter still in place. Using incentive spirometer. Afebrile. 03/25/2025, the patient is being seen for a follow-up. Repeat chest x-ray was done and shows ongoing volume loss and atelectasis in the left lung base. I also performed an ultrasound of the chest and there is no sizable pleural effusion for thoracentesis. Findings are more consistent with consolidation/atelectasis. Remains on Airvo at 60 L and FiO2 of 90%. Incentive spirometer. Overnight, using BiPAP pressure of 14/6 and use of water with an FiO2 of 80%. Remains in normal [place] rate of 75 cc an hour. Fluid balance is +550 cc over the past 24 hours. No respiratory difficulties. The white cell count of 12. Hemoglobin is 10.9. Platelet count is 210. BUN is 32 with a creatinine of 0.8. Sodium levels at 138 and potassium levels of 4.2. Remains on Zosyn and vancomycin. Neurologically unchanged and the patient continues to be paraplegic. Patient was seen today on 03/26/2025, patient remains in the ICU, he is on Airvo at 90% and 60 L flow, patient is generally weak, alert and appropriate, IV fluid at 75 cc/h, continues to have weakness from the waist down. Patient had cervical spine surgery postoperative day #6. Chest x-ray showed complete opacification of the left lung consistent with mucous plugging involving the left mainstem bronchus. Hence I discussed this with the patient today, patient needs to be bronchoscope, needs to have extraction of mucous plugs. Considering the patient is marginal at best, will need to be intubated and placed on mechanical ventilation for the procedure. Based on the findings we will decide whether the patient needs to remain on mechanical ventilation after bronchoscopy or not. Most likely he will remain ventilated after the bronchoscopy. Patient has a bit of leukocytosis with WBC of 13.3 hemoglobin 11.3 electrolytes are normal renal profile is normal. Nasal screen has been positive for MSSA not MRSA. Patient was seen today on 03/27/2025, patient remains intubated and mechanically ventilated, kept him on mechanical ventilation after his bronchoscopy yesterday and suctioning of mucous plugs from the left mainstem bronchus and left lung. Left lung continues to show good inflation, minimal left lower lobe atelectasis, patient is on assist-control rate of 18 tidal volume 550 FiO2 50% and PEEP of 8 ABG today showed a pO2 of 84 pCO2 37 pH of 7.41. Patient is also on propofol at 50 mg/kg/min IV fluids at 75 cc/h on antibiotics in the form of Zosyn and vancomycin, antibiotics to be changed once we have the final culture from the BAL. I plan to wean the patient today, possibly consider placing him on BiPAP 12/6/50% assuming he tolerates weaning and he passes his weaning parameters. Patient is awake, follows instructions, although he is still on propofol. WBC count is 14.48 hemoglobin 10.8 electrolytes are normal, BUN is 29 creatinine 0.7 Patient was seen today on 03/28/2025, patient was extubated yesterday, had to be placed on BiPAP to avoid atelectasis again of the left lung and mucous plugging patient has very poor cough, cannot clear his secretions, and his chest x-ray today is beginning to show early atelectasis in the left lower lobe, questionable effusion but ultrasound did not show much fluid. I believe it is all a picture of atelectasis involving the left lower lobe and I am afraid that the patient may have reopacification of the left lung in the next 24 hours. In the meantime I will continue patient on BiPAP, will recommend chest PT, N- acetylcysteine and albuterol, Mucinex, and hopefully we can avoid another bronchoscopy. Otherwise if the patient opacifies left lung again, may have to be bronchoscope again. And if we do I will keep him longer on mechanical ventilation. Patient remains on antibiotics/broad-spectrum he is WBC count is 19.36 hemoglobin is 10.7 electrolytes are normal renal profile is normal. Seen today on 03/29/2025, patient remains in the ICU, chest x-ray is showing wo rsening and he is again having near complete opacification of the left lung. Apparently the patient is developing mucous plugging again involving the left mainstem bronchus and the cultures from his last BAL came back showing Serratia marcescens. Considering the patient's critical illness, I am transitioning Zosyn to Merrem for better coverage of Serratia. Sensitivity is still pending on the organism. But empirically Merrem would be a better choice for Serratia marcescens for the time being. Patient still on BiPAP at 14/6/60%, and considering his abnormal chest x-ray, I am recommending bronchoscopy again and this has to be again done with the patient intubated as his O2 saturation is ma rginal even on 60% BiPAP. Patient looks comfortable, he is not in distress. Continues to have leukocytosis with WC of 23.23 hemoglobin 11.2 basic metabolic profile is normal renal profile is normal continues to have cervical collar in place. Patient was seen today on 03/30/2025, remains in the ICU, intubated and mechanically ventilated, patient is on assist-control rate of 18 tidal volume 550 FiO2 50% PEEP of 10 ABG showed a pO2 of 122 pCO2 37 pH of 7.47 hence FiO2 was cut down to 40%. Remains on Merrem remains on propofol at 40 mcg/kg/min and on Versed 1 mg/h. Patient is sedated, does not seem to be in any distress, chest x-ray is showing slight worsening in the left lower lobe, but not severe enough to justify bronchoscopy again. However considering this I am not planning to extubate the patient today as if extubated he will most likely end up requiring bronchoscopy again. Patient had positive cultures for Serratia marcescens, and is now on Merrem. Labs today were reviewed patient has leukocytosis with WBC count of 19.7 hemoglobin 11.3, basic metabolic profile is normal renal profile is normal patient is on nutritional support/enteral feeding. Chest x-ray today is a bit worrisome hence no plans to wean and extubate today. Patient was seen today on 03/27/2025, remains in the ICU, intubated and mechanically ventilated. Patient is on assist-control rate of 18 tidal volume 550 FiO2 40% and PEEP of 10 ABG on 45% showed a pO2 of 86 pCO2 42 pH of 7.44. Chest x-ray is showing left lower lobe atelectasis/airspace disease involving the left lower lobe hence I was concerned about recollapsing of the left lung, bronchoscopy was performed, and the secretions noted in the left lower lobe with were very minimal. Did not require lavage, there was not enough secretions to d o lavage. Hence the patient was kept intubated mechanically ventilated, he is now on propofol at 45 mcg/kg/min is on Versed 1 mg/h and is receiving vital HP at 32 cc/h. Remains on fluconazole, remains on Merrem. Continues to have a bit of leukocytosis with WBC of 19.12 hemoglobin 11.7 electrolytes are normal, renal profile is normal. Objective - Vital Signs Vital signs: Vital Signs Temp 99 F 03/31/25 12:00 Pulse 87 03/31/25 12:00 Resp 18 03/31/25 12:00 BP 112/66 03/31/25 12:00 Pulse Ox 100 03/31/25 12:00 FiO2 40 03/31/25 11:59 Intake & Output 03/30/25 03/31/25 03/31/25 18:59 06:59 18:59 Intake Total 2007.284 1254.090 592.141 Output Total 920 1490 575 Balance 93.486 1755.090 17.141 Weight 114.7 kg 115 kg Intake: IV 200 420 200 Meropenem 1 gm In Sodium 200 200 100 Chloride 0.9% 100 ml @ 33 .3 mls/hr IVPB Q8HR [facility] Rx#:[id number] kvo 220 100 Intake, IV Titration 294.422 5798.090 102.141 Amount Fluconazole in NaCl,Iso- 200 Osm 400 mg In Saline 1 200ml.bag @ 100 mls/hr IVPB DAILY@1800 [facility] Rx#: [id number] IV Fluid Continuation 1, 190 20 000 ml @ 0 mls/hr IV .STK -MED ONE Rx#:[id number] Lactated Ringers 1,000 ml 2000 @ 999 mls/hr IV .Q1H1M [facility] Rx#:[id number] Midazolam HCl 50 mg In 23 Sodium Chloride 0.9% 40 ml @ 1 MG/HR 1 mls/hr IV .Q24H [facility] Rx#:[id number] propofoL 1,000 mg In 400.486 343.090 102.141 Empty Bag 1 bag @ 15 MCG/ KG/MIN 10.476 mls/hr IV . Q9H33M [facility] Rx#:[id number] Tube Feeding 372 160 Other 90 130 Output: Urine 920 1490 575 Other: Voiding Method Indwelling Catheter Indwelling Catheter Indwelling Catheter - Exam General: Reveals 64-year-old white male, intubated, sedated, mechanically vent ilated Derm: No rashes. Head: atraumatic, normocephalic, symmetric endotracheal tube and orogastric tube are intact continues to have a cervical collar in place. Eyes: EOMI, anicteric sclera Mouth: Moist mucous membranes, no evidence of lesions Cardiovascular: Distant S1 S2 reg, no murmur, rubs, or gallops Lungs: Good breath sound bilaterally slightly diminished at the left base right side is clear Abdominal: soft, a bowel sounds are present Extremities: no gross muscle atrophy, no edema, no contractures, Neuro: Could not assess sedated on propofol and Versed Psych: Could not assess - Labs CBC & Chem 7: 03/31/25 03:01 03/31/25 03:01 Labs: Abnormal Lab Results - Last 24 Hours (Table) 03/30/25 03/30/25 03/30/25 Range/Units 17:27 18:46 23:25 WBC 19.49 H (4.50-10.00) 10*3/uL RBC 3.81 L (4.40-5.60) 10*6/uL Hgb 11.6 L (13.0-17.0) g/dL Hct 34.0 L (39.6-50.0) % Immature Gran # (0.00-0.04) 10*3/uL Neutrophils # (1.80-7.70) 10*3/uL Lymphocytes # (0.90-5.00) 10*3/uL Monocytes # (0.20-1.00) 10*3/uL Eosinophils # (0.04-0.35) 10*3/uL ABG HCO3 (21-25) mmol/L ABG Total CO2 (19-24) mmol/L Hemoglobin (13.0-17.5) gm/dL Sodium (137-145) mmol/L BUN (9-20) mg/dL Creatinine (0.66-1.25) mg/dL Glucose (74-99) mg/dL POC Glucose (mg/dL) 202 H 226 H (70-110) mg/dL 03/31/25 03/31/25 03/31/25 Range/Units 03:01 03:01 05:15 WBC 19.12 H (4.50-10.00) 10*3/uL RBC 3.89 L (4.40-5.60) 10*6/uL Hgb 11.7 L (13.0-17.0) g/dL Hct 34.9 L (39.6-50.0) % Immature Gran # 0.93 H (0.00-0.04) 10*3/uL Neutrophils # 16.84 H (1.80-7.70) 10*3/uL Lymphocytes # 0.26 L (0.90-5.00) 10*3/uL Monocytes # 1.06 H (0.20-1.00) 10*3/uL Eosinophils # 0.00 L (0.04-0.35) 10*3/uL ABG HCO3 28 H (21-25) mmol/L ABG Total CO2 29 H (19-24) mmol/L Hemoglobin 11.8 L (13.0-17.5) gm/dL Sodium 135 L (137-145) mmol/L BUN 26 H (9-20) mg/dL Creatinine 0.53 L (0.66-1.25) mg/dL Glucose 257 H (74-99) mg/dL POC Glucose (mg/dL) (70-110) mg/dL 03/31/25 03/31/25 Range/Units 05:28 11:46 WBC (4.50-10.00) 10*3/uL RBC (4.40-5.60) 10*6/uL Hgb (13.0-17.0) g/dL Hct (39.6-50.0) % Immature Gran # (0.00-0.04) 10*3/uL Neutrophils # (1.80-7.70) 10*3/uL Lymphocytes # (0.90-5.00) 10*3/uL Monocytes # (0.20-1.00) 10*3/uL Eosinophils # (0.04-0.35) 10*3/uL ABG HCO3 (21-25) mmol/L ABG Total CO2 (19-24) mmol/L Hemoglobin (13.0-17.5) gm/dL Sodium (137-145) mmol/L BUN (9-20) mg/dL Creatinine (0.66-1.25) mg/dL Glucose (74-99) mg/dL POC Glucose (mg/dL) 258 H 257 H (70-110) mg/dL Microbiology - Last 24 Hours (Table) 03/26/25 15:53 Fungal Culture - Preliminary Bronchoalviolar Lavage - Left Yeast species Assessment and Plan Assessment: Impression: Acute hypoxic respiratory failure, secondary to recurrent episodes of left lung collapse and opacification mostly because the patient cannot clear his secretions and he has a very poor cough, in addition his sputum/BAL has been positive for Serratia. Recurrent opacification of left lung secondary to mucous plugging requiring bronchoscopy and suctioning of mucous plugs and BAL twice last 1 was yesterday. Patient already had bronchoscopies x 2 for complete opacification of the left lung, today he underwent a third bronchoscopy but no evidence of significant endobronchial mucous plugs noted. I believe the patient is doing better, hence we will continue Merrem, but I do not believe he is ready to be extubated. Left-sided pneumonia secondary to Serratia marcescens, patient will remain on Merrem for now. Severe spinal canal stenosis at C7-T1 status post discectomy and decompression and fusion patient is now postoperative day #11 Obstructive sleep apnea syndrome on CPAP normally Type 2 diabetes Hypotension could be related to sepsis could also be neurogenic post spinal surgery, resolved Dyslipidemia Bilateral lower extremities weakness related to his spinal issues/cervical/thoracic spine issues T8 paresthesia History of severe L5-S1 neuroforaminal stenosis Recommendation: Continue ventilatory support Continue nutritional support Continue GI DVT prophylaxis Continue chest physical therapy Continue Mucomyst and N-acetylcysteine and updrafts Considering his chest x-ray I have no plans to extubate today although his bronchoscopy today showed no evidence of endobronchial mucous plugs. My major concern is the patient has a very weak cough, and he will likely collapse his lung again because of his weak cough. He cannot clear secretions on his own. Continue Merrem for Serratia marcescens pneumonia Continue cervical collar Continue pain control Patient is critically ill Critical care time is 34 minutes not including the time spent on bronchoscopy. Time with Patient: Greater than 30
--- NOTE | 2025-03-31 13:26 | P.PN ---
Subjective Progress Note Date: 03/31/25 Subjective: Patient seen and examined at bedside. No acute events overnight. Remains intubated and sedated. Pertinent positives and negatives as discussed above, a complete review of systems was performed and all other systems are negative. Vitals Signs Reviewed. General: Intubated, sedated Derm: Warm, dry Head: Atraumatic, normocephalic, symmetric Eyes: EOMI, no lid lag, anicteric sclera Mouth: No lip lesion, mucus membranes moist Cardiovascular: S1S2 reg, no murmur Lungs: Bilateral rhonchi, more prominent on the left, no accessory muscle use, mechanically ventilated Abdominal: Soft, nontender to palpation, no appreciable organomegaly Ext: No gross muscle atrophy, no edema, no contractures Neuro: Sedated Psych: Unable to assess Data Reviewed Today: Pertinent Labs: WBC 19.12, hemoglobin 11.7, pH 7.44, SER294, pO2 86, bicarb 26, creatinine 0.53, blood sugars range between 226-257 Imaging: Chest x-ray independently interpreted, shows persistent left lower lobe opacity Assessment and Plan: Active: Acute hypoxic respiratory failure Severe left sided atelectasis secondary to mucous plugging status post bronchoscopy x 2 Suspected underlying pneumonia secondary to Serratia versus yeast infection Leukocytosis, slightly improved - Pulmonology note reviewed, continue current therapy - Continue to wean mechanical ventilation - On meropenem 1 g IV every 8 hours, also continued on fluconazole 400 mg IV daily - Monitor CBC daily - Wean sedation - Mucomyst 200 mg 3 times daily, continue with IV Solu-Medrol 40 every 6 hours, DuoNebs 4 times daily, every 2 hours as needed Cervical myelopathy status post cervical decompression with discectomy at C7-T1 and fusion with extension of fusion from C3-C7 with new extension down to T3 Severe right L5-S1 neuroforaminal stenosis Moderate bilateral L4-5 neuroforaminal stenosis - Continue steroids as above per orthopedic surgery - Will likely need spinal cord facility for rehabilitation once medically stable - Pain control with oral [place] as needed, IV Dilaudid as needed Type 2 diabetes Hyperglycemia Continue Lantus 50 units daily, sliding scale insulin every 6 hours, monitor for hypoglycemia Chronic: Hypertension BPH Dyslipidemia NERIS DVT ppx: Lovenox Code status: Full code Anticipated discharge place: Pending clinical course Anticipated discharge time: Pending clinical course Objective - Vital Signs Vital signs: Vital Signs Temp 99 F 03/31/25 12:00 Pulse 87 03/31/25 12:00 Resp 18 03/31/25 12:00 BP 112/66 03/31/25 12:00 Pulse Ox 100 03/31/25 12:00 FiO2 40 03/31/25 11:59 Intake & Output 03/30/25 03/31/25 03/31/25 18:59 06:59 18:59 Intake Total 4075.034 9668.090 592.141 Output Total 920 1490 575 Balance 93.486 1755.090 17.141 Weight 114.7 kg 115 kg Intake: IV 200 420 200 Meropenem 1 gm In Sodium 200 200 100 Chloride 0.9% 100 ml @ 33 .3 mls/hr IVPB Q8HR [facility] Rx#:[id number] kvo 220 100 Intake, IV Titration 263.623 7180.090 102.141 Amount Fluconazole in NaCl,Iso- 200 Osm 400 mg In Saline 1 200ml.bag @ 100 mls/hr IVPB DAILY@1800 [facility] Rx#: [id number] IV Fluid Continuation 1, 190 20 000 ml @ 0 mls/hr IV .STK -MED ONE Rx#:[id number] Lactated Ringers 1,000 ml 2000 @ 999 mls/hr IV .Q1H1M [facility] Rx#:[id number] Midazolam HCl 50 mg In 23 Sodium Chloride 0.9% 40 ml @ 1 MG/HR 1 mls/hr IV .Q24H [facility] Rx#:[id number] propofoL 1,000 mg In 400.486 343.090 102.141 Empty Bag 1 bag @ 15 MCG/ KG/MIN 10.476 mls/hr IV . Q9H33M [facility] Rx#:[id number] Tube Feeding 372 160 Other 90 130 Output: Urine 920 1490 575 Other: Voiding Method Indwelling Catheter Indwelling Catheter Indwelling Catheter - Labs CBC & Chem 7: 03/31/25 03:01 03/31/25 03:01 Labs: Abnormal Lab Results - Last 24 Hours (Table) 03/30/25 03/30/25 03/30/25 Range/Units 17:27 18:46 23:25 WBC 19.49 H (4.50-10.00) 10*3/uL RBC 3.81 L (4.40-5.60) 10*6/uL Hgb 11.6 L (13.0-17.0) g/dL Hct 34.0 L (39.6-50.0) % Immature Gran # (0.00-0.04) 10*3/uL Neutrophils # (1.80-7.70) 10*3/uL Lymphocytes # (0.90-5.00) 10*3/uL Monocytes # (0.20-1.00) 10*3/uL Eosinophils # (0.04-0.35) 10*3/uL ABG HCO3 (21-25) mmol/L ABG Total CO2 (19-24) mmol/L Hemoglobin (13.0-17.5) gm/dL Sodium (137-145) mmol/L BUN (9-20) mg/dL Creatinine (0.66-1.25) mg/dL Glucose (74-99) mg/dL POC Glucose (mg/dL) 202 H 226 H (70-110) mg/dL 03/31/25 03/31/25 03/31/25 Range/Units 03:01 03:01 05:15 WBC 19.12 H (4.50-10.00) 10*3/uL RBC 3.89 L (4.40-5.60) 10*6/uL Hgb 11.7 L (13.0-17.0) g/dL Hct 34.9 L (39.6-50.0) % Immature Gran # 0.93 H (0.00-0.04) 10*3/uL Neutrophils # 16.84 H (1.80-7.70) 10*3/uL Lymphocytes # 0.26 L (0.90-5.00) 10*3/uL Monocytes # 1.06 H (0.20-1.00) 10*3/uL Eosinophils # 0.00 L (0.04-0.35) 10*3/uL ABG HCO3 28 H (21-25) mmol/L ABG Total CO2 29 H (19-24) mmol/L Hemoglobin 11.8 L (13.0-17.5) gm/dL Sodium 135 L (137-145) mmol/L BUN 26 H (9-20) mg/dL Creatinine 0.53 L (0.66-1.25) mg/dL Glucose 257 H (74-99) mg/dL POC Glucose (mg/dL) (70-110) mg/dL 03/31/25 03/31/25 Range/Units 05:28 11:46 WBC (4.50-10.00) 10*3/uL RBC (4.40-5.60) 10*6/uL Hgb (13.0-17.0) g/dL Hct (39.6-50.0) % Immature Gran # (0.00-0.04) 10*3/uL Neutrophils # (1.80-7.70) 10*3/uL Lymphocytes # (0.90-5.00) 10*3/uL Monocytes # (0.20-1.00) 10*3/uL Eosinophils # (0.04-0.35) 10*3/uL ABG HCO3 (21-25) mmol/L ABG Total CO2 (19-24) mmol/L Hemoglobin (13.0-17.5) gm/dL Sodium (137-145) mmol/L BUN (9-20) mg/dL Creatinine (0.66-1.25) mg/dL Glucose (74-99) mg/dL POC Glucose (mg/dL) 258 H 257 H (70-110) mg/dL Microbiology - Last 24 Hours (Table) 03/26/25 15:53 Fungal Culture - Preliminary Bronchoalviolar Lavage - Left Yeast species
[2025-03-31] MEDS: ACETAMINOPHEN TAB 325 MG TAB PO PRN (16:04)
--- NOTE | 2025-03-31 17:16 | OP ---
OPERATIVE REPORT DATE OF SERVICE : OPERATIVE REPORT: Bronchoscopy, airway examination, suctioning of minimal secretions in the right lower lobe. PREOPERATIVE DIAGNOSIS: Recurrent collapse of the left lung secondary to mucous plugging secondary to Serratia marcescens pneumonia. POSTOPERATIVE DIAGNOSIS: Recurrent collapse of the left lung secondary to mucous plugging secondary to Serratia marcescens pneumonia. ANESTHESIA USED: The patient was already receiving Versed infusion and propofol infusion. DESCRIPTION OF PROCEDURE: The patient was placed in supine position. He was already intubated and mechanically ventilated, adapter was applied on the endotracheal tube. We monitored his O2 saturation, blood pressure and cardiac rhythm continuously. The bronchoscope was advanced through the adapter down to the distal end of the endotracheal tube. Thorough examination was done of the distal trachea, aisha, right upper lobe, right middle lobe, right lower lobe, left upper lobe lingula and left lower lobe. There were very minimal secretions that were suctioned easily, no lavage was performed, no significant mucus plugging was noted. Procedure was tolerated, no complications. MMODL / IJN: [id number] /
[2025-03-31 17:35] LABS: Glucose,Whole Blood 247 mg/dL (70-110)
[2025-03-31 23:03] LABS: Glucose,Whole Blood 232 mg/dL (70-110)
[2025-04-01 03:05] LABS: Basophils # (A) 0.03 10*3/uL (0.00-0.10); Basophils % (A) 0.2 %; Eosinophils # (A) 0.00 10*3/uL (0.04-0.35); Eosinophils % (A) 0.0 %; HCT 34.6 % (39.6-50.0); HGB 11.5 g/dL (13.0-17.0); Lymphocytes # (A) 0.27 10*3/uL (0.90-5.00); Lymphocytes % (A) 1.4 %; MCH 29.7 pg (27.0-32.0); MCHC 33.2 g/dL (32.0-37.0); MCV 89.4 fL (80.0-97.0); Monocytes # (A) 1.02 10*3/uL (0.20-1.00); Monocytes % (A) 5.2 %; Neutrophils # (A) 17.23 10*3/uL (1.80-7.70); Neutrophils % (A) 88.5 %; Platelet Count 161 10*3/uL (140-440); RBC 3.87 10*6/uL (4.40-5.60); RDW 14.6 % (11.5-14.5); WBC 19.47 10*3/uL (4.50-10.00)
[2025-04-01 03:22] LABS: African American GFR (CKD) >90 (>60 ml/min/1.73 sqM); Anion Gap 2 mmol/L; Blood Urea Nitrogen 27 mg/dL (9-20); Calcium 8.1 mg/dL (8.4-10.2); Carbon Dioxide 28 mmol/L (22-30); Chloride 104 mmol/L (98-107); Glucose 259 mg/dL (74-99); Non-African American GFR(CKD) >90 (>60 ml/min/1.73 sqM); Potassium 4.5 mmol/L (3.5-5.1); Sodium 134 mmol/L (137-145)
[2025-04-01 05:04] LABS: ABG HCO3 30 mmol/L (21-25); ABG PCO2 37 mmHg (35-45); ABG PH 7.52 (7.35-7.45); ABG PO2 91 mmHg (83-108); ABG TCO2 31 mmol/L (19-24); Allen Test Performed? Yes
[2025-04-01 05:32] LABS: Glucose,Whole Blood 245 mg/dL (70-110)
[2025-04-01] MEDS: FUROSEMIDE 10 MG/ML 4 ML VIAL IV STA (07:36)
--- NOTE | 2025-04-01 08:24 | XR ---
EXAMINATION TYPE: XR chest 1V portable DATE OF EXAM: 04/01/2025 6:06 AM COMPARISON: None. CLINICAL INDICATION: Male, 64 years old with history of Tube placement, TECHNIQUE: XR chest 1V portable view(s) obtained. FINDINGS: The heart size is normal. The pulmonary vasculature is normal. There is silhouetting of the diaphragms. Small bilateral pleural effusions may be present. Endotracheal tube tip is 6.3 cm above the aisha. Nasogastric tube transverse the thorax tip in the l eft upper quadrant of the abdomen. IMPRESSION: 1. Small bilateral pleural effusions and/or atelectasis [facility], , 04/01/2025 8:22 AM
[2025-04-01 09:38] LABS: ABG HCO3 32 mmol/L (21-25); ABG PCO2 40 mmHg (35-45); ABG PH 7.51 (7.35-7.45); ABG PO2 61 mmHg (83-108); ABG TCO2 33 mmol/L (19-24); Allen Test Performed? Yes
--- NOTE | 2025-04-01 09:47 | P.PN ---
Progress Note - Text Progress Note Date: 04/01/25 Postoperative day #12 Patient is seen and examined today at bedside. He remains intubated today but he is awake opening his eyes and gesturing appropriately. He gives us a thumbs up. He is not complaining of any pain. They decrease the sedation and he is waking up easily Physical Exam Tmax is 100.3 he remains on a ventilator. He is awake Abdomen is soft nontender no significant distention. The incision site is clean dry and intact. His heart collar is on. [place] are intact. No erythema there is no purulence. Extremities have not had neurologic change control analyst the past several days. He does not seem to report any new changes in his sensation. He feels he does have some sensation around his lower abdomen. He has no sensation in his lower extremities no motion in his lower extremities. He has not had a bowel movement in several days. Calves and thighs were soft nontender without evidence of DVT. 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 His x-ray may have had some improvement and he is tolerating weaning from his sedation well. They plan to try to extubate again today and see if he is able to tolerate with this. Critical care is managing appropriately. They are trying to set him up more significantly. That is appropriate. He is difficult to know how his trunk stabilization will function given his spinal cord injury and will continue to try to mobilize with nursing care and therapy. It is okay for him to sit up to a chair if he is able with his heart collar intact. The incision site of his neck is healing adequately. There is no evidence of infection of the area. Will leave the jarad for another few days. If his respiratory status is able to be stabilized more long-term, then we would start planning towards a spinal cord injury center. We'll continue to follow patient closely.
--- NOTE | 2025-04-01 10:12 | P.PN ---
Subjective Progress Note Date: 04/01/25 Principal diagnosis: Acute hypoxic respiratory failure with left lower lobe atelectasis, pneumonia, and left lung collapse/opacification. This is a 64-year-old male patient was undergone a C 7 T1 discectomy, done posteriorly with wide laminectomy and foraminotomy and partial facetectomy. The patient was experiencing cervical myelopathy with severe bilateral lower extremity weakness and T8 paresthesia. The patient has previous history of cervical spine fusion C2-C7. The patient was found to have a large herniated disc C7-T1 with severe spinal cord stenosis and based on that the patient was taken to the operating room and underwent a C7-T1 discectomy on 03/21/2025. The patient has become progressively more hypoxic. Currently he is on Airvo at 60 L and FiO2 of 90%. His current pulse ox is in order of 90 to 93%. Slightly tachycardic. Blood pressure is also soft at 89/62. Based on worsening hypoxemia, CT of the chest was done and the patient was found to have s ignificant volume loss in the left lung compared to the right. There is marked volume loss and atelectasis in addition to an area of consolidation in the left upper lobe and elevation of the left hemidiaphragm in addition to significant gastric distention. The patient has dilated air in the stomach and colon. Blood work shows a white cell count of 14, hemoglobin 12.4 and a platelet count of 175. Sodium levels at 137, bicarb is at 23, potassium level is at 4.3 with a chloride of 102. BUN 23 with a creatinine of 0.9. The patient is resting comfortably in bed. He is wearing a hard neck collar. He is reporting some mild shortness of breath even at rest. He is tolerating the Airvo. He is currently on IV Solu-Medrol 100 mg every 6 hours post neck surgery. He is also on IV fluids with l normal saline at rate of 75 cc an hour. Comorbidities include hypertension, hyperlipidemia, diabetes mellitus type 2, obstructive sleep apnea maintained on CPAP therapy on outpatient basis On today's evaluation of 03/23/25, patient is still on the BiPAP pressure of 14 over 6 cm of water and FiO2 has been weaned down to 65%. The patient's abdomen seems to be less distended. He had 2 bowel movements and the patient is also passing flatus. Fluid balance +223 cc over the past 24 hours and the patient remains on normal saline at a rate of 75 cc an hour. Neurologically, unchanged and the patient has absent motor function lower extremities bilaterally. He is on broad-spectrum antibiotics and the patient is currently on Zosyn vancomycin combination. Follow-up chest x-ray shows some interval improvement in aeration in the left lung base. Lung volumes in the left remain small and there is some ongoing atelectatic change at left lower lobe. The patient's white cell count is 11, hemoglobin 11.3 and a platelet count of 180. Electrolytes are all within normal limits. BUN is 40 with a creatinine of 1.05. The patient is able to communicate. He is alert and awake. Denies having any specific complaints. Still wearing a hard neck collar. 03/24/2025, the patient is laying flat in bed and is currently on a BiPAP at a pressure of 14/6 with an FiO2 of 75% overnight and Airvo during the day. He remains on normal saline at rate of 75 cc an hour. Chest x-ray still showing left lower lobe consolidation. Abdomen is soft. He had 3 bowel movements. He is on Lantus insulin. The patient's mentation is awake and alert. Nevertheless, he continues to have profound weakness in the lower extremity and he remains paraplegic. Remains on IV Solu-Medrol. Blood sugars are elevated and he remains on Lantus 15 units daily and NovoLog sliding scale coverage. The white cell count 11.9, hemoglobin 11.3 and a platelet count of 201. BUN 34 with a creatinine of 0.8. Sodium levels at 136. Blood sugars up to 82. He is postop day #4 following an open decompression and fusion of C7-T1 surgery was done due to a large disc herniation and spinal cord injury. He is also status post fusion and extension from prior fusion C2-7 and near extension fusion down to T3. He is unable to move his legs still. Samuels catheter still in place. Using incentive spirometer. Afebrile. 03/25/2025, the patient is being seen for a follow-up. Repeat chest x-ray was done and shows ongoing volume loss and atelectasis in the left lung base. I also performed an ultrasound of the chest and there is no sizable pleural effusion for thoracentesis. Findings are more consistent with consolidation/atelectasis. Remains on Airvo at 60 L and FiO2 of 90%. Incentive spirometer. Overnight, using BiPAP pressure of 14/6 and use of water with an FiO2 of 80%. Remains in normal [place] rate of 75 cc an hour. Fluid balance is +550 cc over the past 24 hours. No respiratory difficulties. The white cell count of 12. Hemoglobin is 10.9. Platelet count is 210. BUN is 32 with a creatinine of 0.8. Sodium levels at 138 and potassium levels of 4.2. Remains on Zosyn and vancomycin. Neurologically unchanged and the patient continues to be paraplegic. Patient was seen today on 03/26/2025, patient remains in the ICU, he is on Airvo at 90% and 60 L flow, patient is generally weak, alert and appropriate, IV fluid at 75 cc/h, continues to have weakness from the waist down. Patient had cervical spine surgery postoperative day #6. Chest x-ray showed complete opacification of the left lung consistent with mucous plugging involving the left mainstem bronchus. Hence I discussed this with the patient today, patient needs to be bronchoscope, needs to have extraction of mucous plugs. Considering the patient is marginal at best, will need to be intubated and placed on mechanical ventilation for the procedure. Based on the findings we will decide whether the patient needs to remain on mechanical ventilation after bronchoscopy or not. Most likely he will remain ventilated after the bronchoscopy. Patient has a bit of leukocytosis with WBC of 13.3 hemoglobin 11.3 electrolytes are normal renal profile is normal. Nasal screen has been positive for MSSA not MRSA. Patient was seen today on 03/27/2025, patient remains intubated and mechanically ventilated, kept him on mechanical ventilation after his bronchoscopy yesterday and suctioning of mucous plugs from the left mainstem bronchus and left lung. Left lung continues to show good inflation, minimal left lower lobe atelectasis, patient is on assist-control rate of 18 tidal volume 550 FiO2 50% and PEEP of 8 ABG today showed a pO2 of 84 pCO2 37 pH of 7.41. Patient is also on propofol at 50 mg/kg/min IV fluids at 75 cc/h on antibiotics in the form of Zosyn and vancomycin, antibiotics to be changed once we have the final culture from the BAL. I plan to wean the patient today, possibly consider placing him on BiPAP 12/6/50% assuming he tolerates weaning and he passes his weaning parameters. Patient is awake, follows instructions, although he is still on propofol. WBC count is 14.48 hemoglobin 10.8 electrolytes are normal, BUN is 29 creatinine 0.7 Patient was seen today on 03/28/2025, patient was extubated yesterday, had to be placed on BiPAP to avoid atelectasis again of the left lung and mucous plugging patient has very poor cough, cannot clear his secretions, and his chest x-ray today is beginning to show early atelectasis in the left lower lobe, questionable effusion but ultrasound did not show much fluid. I believe it is all a picture of atelectasis involving the left lower lobe and I am afraid that the patient may have reopacification of the left lung in the next 24 hours. In the meantime I will continue patient on BiPAP, will recommend chest PT, N- acetylcysteine and albuterol, Mucinex, and hopefully we can avoid another bronchoscopy. Otherwise if the patient opacifies left lung again, may have to be bronchoscope again. And if we do I will keep him longer on mechanical ventilation. Patient remains on antibiotics/broad-spectrum he is WBC count is 19.36 hemoglobin is 10.7 electrolytes are normal renal profile is normal. Seen today on 03/29/2025, patient remains in the ICU, chest x-ray is showing wo rsening and he is again having near complete opacification of the left lung. Apparently the patient is developing mucous plugging again involving the left mainstem bronchus and the cultures from his last BAL came back showing Serratia marcescens. Considering the patient's critical illness, I am transitioning Zosyn to Merrem for better coverage of Serratia. Sensitivity is still pending on the organism. But empirically Merrem would be a better choice for Serratia marcescens for the time being. Patient still on BiPAP at 14/6/60%, and considering his abnormal chest x-ray, I am recommending bronchoscopy again and this has to be again done with the patient intubated as his O2 saturation is ma rginal even on 60% BiPAP. Patient looks comfortable, he is not in distress. Continues to have leukocytosis with WC of 23.23 hemoglobin 11.2 basic metabolic profile is normal renal profile is normal continues to have cervical collar in place. Patient was seen today on 03/30/2025, remains in the ICU, intubated and mechanically ventilated, patient is on assist-control rate of 18 tidal volume 550 FiO2 50% PEEP of 10 ABG showed a pO2 of 122 pCO2 37 pH of 7.47 hence FiO2 was cut down to 40%. Remains on Merrem remains on propofol at 40 mcg/kg/min and on Versed 1 mg/h. Patient is sedated, does not seem to be in any distress, chest x-ray is showing slight worsening in the left lower lobe, but not severe enough to justify bronchoscopy again. However considering this I am not planning to extubate the patient today as if extubated he will most likely end up requiring bronchoscopy again. Patient had positive cultures for Serratia marcescens, and is now on Merrem. Labs today were reviewed patient has leukocytosis with WBC count of 19.7 hemoglobin 11.3, basic metabolic profile is normal renal profile is normal patient is on nutritional support/enteral feeding. Chest x-ray today is a bit worrisome hence no plans to wean and extubate today. Patient was seen today on 03/31/2025, remains in the ICU, intubated and mechanically ventilated. Patient is on assist-control rate of 18 tidal volume 550 FiO2 40% and PEEP of 10 ABG on 45% showed a pO2 of 86 pCO2 42 pH of 7.44. Chest x-ray is showing left lower lobe atelectasis/airspace disease involving the left lower lobe hence I was concerned about recollapsing of the left lung, bronchoscopy was performed, and the secretions noted in the left lower lobe with were very minimal. Did not require lavage, there was not enough secretions to d o lavage. Hence the patient was kept intubated mechanically ventilated, he is now on propofol at 45 mcg/kg/min is on Versed 1 mg/h and is receiving vital HP at 32 cc/h. Remains on fluconazole, remains on Merrem. Continues to have a bit of leukocytosis with WBC of 19.12 hemoglobin 11.7 electrolytes are normal, renal profile is normal. Patient was seen today on 04/01/2025, remains in the ICU, remains intubated and mechanically ventilated. Patient is sedated with propofol at 45 mcg/kg/min and Versed 1 mg/h. Patient is calm he is on assist-control mode of mechanical ventilation rate 18 tidal volume 550 FiO2 40% PEEP that ABG showed a PO2 of 91 pCO2 37 pH of 7.52 chest x-ray showed improvement in his left lower lobe atelectasis but he does have bilateral pleural effusions has I recommended a dose of Lasix 40 mg IV push x 1 was given. Considering his ABG is better considering his chest x-ray is showing improvement, I recommended a trial of weaning. However on pressure support and CPAP, his ABG was marginal with a pO2 of 61 pCO2 40 pH of 7.51, hence I felt the patient is not ready to be weaned especially with relatively low pO2 of 61. And I felt the patient should be back on sedation and back on assist-control mode of mechanical ventilation. In the meantime patient remains on nutritional support, remains in GI prophylaxis: And again he received a dose of Lasix earlier today for what seems to be bilateral pleural effusions. Continues to have leukocytosis with WBC count of 19.4 hemoglobin 11.5 electrolytes are normal, renal profile is normal blood sugar is 245 Objective - Vital Signs Vital signs: Vital Signs Temp 99.8 F H 04/01/25 08:00 Pulse 89 04/01/25 09:00 Resp 13 04/01/25 09:00 BP 121/67 04/01/25 09:00 Pulse Ox 96 04/01/25 09:00 FiO2 50 04/01/25 09:46 Intake & Output 03/31/25 04/01/25 04/01/25 18:59 06:59 18:59 Intake Total 0331.017 3809.618 424.622 Output Total 1400 2035 1750 Balance -16.767 -800.382 -1325.378 Weight 114.5 kg Intake: IV 420 360 140 Meropenem 1 gm In Sodium 200 100 100 Chloride 0.9% 100 ml @ 33 .3 mls/hr IVPB Q8HR [facility] Rx#:[id number] kvo 220 260 40 Intake, IV Titration 391.233 368.618 122.622 Amount Fluconazole in NaCl,Iso- 100 Osm 400 mg In Saline 1 200ml.bag @ 100 mls/hr IVPB DAILY@1800 [facility] Rx#: [id number] Midazolam HCl 50 mg In 45.1 Sodium Chloride 0.9% 40 ml @ 1 MG/HR 1 mls/hr IV .Q24H [facility] Rx#:[id number] propofoL 1,000 mg In 291.233 368.618 77.522 Empty Bag 1 bag @ 15 MCG/ KG/MIN 10.476 mls/hr IV . [id number] [facility] Rx#:[id number] Tube Feeding 352 416 32 Other 220 90 130 Output: Urine 1400 2035 1750 Other: Voiding Method Indwelling Catheter Indwelling Catheter Indwelling Catheter - Exam General: Reveals 64-year-old white male, intubated, sedated, mechanically ventilated Derm: No rashes. Head: atraumatic, normocephalic orogastric tube and endotracheal tube are intact Eyes: EOMI, anicteric sclera Mouth: Moist mucous membranes, no evidence of lesions Cardiovascular: Distant S1 S2 reg, no murmur, rubs, or gallops Lungs: Good breath sound bilaterally slightly diminished at the left base right side is clear Abdominal: soft, a bowel sounds are present Extremities: no gross muscle atrophy, no edema, no contractures, Neuro: Off sedation, patient was noted to be appropriate. No gross focal deficits. Psych: Off sedation was appropriate and normal mental status. - Labs CBC & Chem 7: 04/01/25 02:49 04/01/25 02:49 Labs: Abnormal Lab Results - Last 24 Hours (Table) 03/31/25 03/31/25 03/31/25 Range/Units 11:46 17:34 23:02 WBC (4.50-10.00) 10*3/uL RBC (4.40-5.60) 10*6/uL Hgb (13.0-17.0) g/dL Hct (39.6-50.0) % Immature Gran # (0.00-0.04) 10*3/uL Neutrophils # (1.80-7.70) 10*3/uL Lymphocytes # (0.90-5.00) 10*3/uL Monocytes # (0.20-1.00) 10*3/uL Eosinophils # (0.04-0.35) 10*3/uL ABG pH (7.35-7.45) ABG pO2 (83-108) mmHg ABG HCO3 (21-25) mmol/L ABG Total CO2 (19-24) mmol/L ABG O2 Saturation (94-97) % Hemoglobin (13.0-17.5) gm/dL Sodium (137-145) mmol/L BUN (9-20) mg/dL Creatinine (0.66-1.25) mg/dL Glucose (74-99) mg/dL POC Glucose (mg/dL) 257 H 247 H 232 H (70-110) mg/dL Calcium (8.4-10.2) mg/dL 04/01/25 04/01/25 04/01/25 Range/Units 02:49 02:49 04:55 WBC 19.47 H (4.50-10.00) 10*3/uL RBC 3.87 L (4.40-5.60) 10*6/uL Hgb 11.5 L (13.0-17.0) g/dL Hct 34.6 L (39.6-50.0) % Immature Gran # 0.92 H (0.00-0.04) 10*3/uL Neutrophils # 17.23 H (1.80-7.70) 10*3/uL Lymphocytes # 0.27 L (0.90-5.00) 10*3/uL Monocytes # 1.02 H (0.20-1.00) 10*3/uL Eosinophils # 0.00 L (0.04-0.35) 10*3/uL ABG pH 7.52 H (7.35-7.45) ABG pO2 (83-108) mmHg ABG HCO3 30 H (21-25) mmol/L ABG Total CO2 31 H (19-24) mmol/L ABG O2 Saturation 98.6 H (94-97) % Hemoglobin (13.0-17.5) gm/dL Sodium 134 L (137-145) mmol/L BUN 27 H (9-20) mg/dL Creatinine 0.54 L (0.66-1.25) mg/dL Glucose 259 H (74-99) mg/dL POC Glucose (mg/dL) (70-110) mg/dL Calcium 8.1 L (8.4-10.2) mg/dL 04/01/25 04/01/25 Range/Units 05:31 09:30 WBC (4.50-10.00) 10*3/uL RBC (4.40-5.60) 10*6/uL Hgb (13.0-17.0) g/dL Hct (39.6-50.0) % Immature Gran # (0.00-0.04) 10*3/uL Neutrophils # (1.80-7.70) 10*3/uL Lymphocytes # (0.90-5.00) 10*3/uL Monocytes # (0.20-1.00) 10*3/uL Eosinophils # (0.04-0.35) 10*3/uL ABG pH 7.51 H (7.35-7.45) ABG pO2 61 L (83-108) mmHg ABG HCO3 32 H (21-25) mmol/L ABG Total CO2 33 H (19-24) mmol/L ABG O2 Saturation 92.8 L (94-97) % Hemoglobin 12.7 L (13.0-17.5) gm/dL Sodium (137-145) mmol/L BUN (9-20) mg/dL Creatinine (0.66-1.25) mg/dL Glucose (74-99) mg/dL POC Glucose (mg/dL) 245 H (70-110) mg/dL Calcium (8.4-10.2) mg/dL Assessment and Plan Assessment: Impression: Acute hypoxic respiratory failure, secondary to recurrent episodes of left lung collapse and opacification mostly because the patient cannot clear his secretions and he has a very poor cough, in addition his sputum/BAL has been positive for Serratia. Recurrent opacification of left lung secondary to mucous plugging requiring bronchoscopy and suctioning of mucous plugs and BAL . Patient already had bronchoscopies x 2 for complete opacification of the left lung, on 03/31 he underwent a third bronchoscopy but no evidence of significant endobronchial mucous plugs noted. In the meantime patient remains on Merrem for what seems to be a Serratia marcescens pneumonia. Left-sided pneumonia secondary to Serratia marcescens, patient will remain on Merrem for now. Severe spinal canal stenosis at C7-T1 status post discectomy and decompression and fusion patient is now postoperative day #12 Obstructive sleep apnea syndrome on CPAP normally Type 2 diabetes Hypotension could be related to sepsis could also be neurogenic post spinal surgery, resolved Dyslipidemia Bilateral lower extremities weakness related to his spinal issues/cervical/thoracic spine issues T8 paresthesia History of severe L5-S1 neuroforaminal stenosis Recommendation: Continue ventilatory support, attempted to wean the patient today, however his ABG was poor with a pO2 of 61 on 40% and pressure support/CPAP. Continue nutritional support Continue GI DVT prophylaxis Continue chest physical therapy Continue Mucomyst and acetylcysteine and updrafts Clinically the patient is improving but his ABG is marginal and did not feel the patient could be successfully weaned and extubated. Continue Merrem for Serratia marcescens pneumonia Continue cervical collar Continue pain control Remains critically ill Critical care time is 32 minutes Time with Patient: Greater than 30
--- NOTE | 2025-04-01 10:36 | P.PN ---
Subjective Progress Note Date: 04/01/25 Subjective: Patient seen and examined at bedside. No acute events overnight. Attempted to wean mechanical ventilation today, will attempt tomorrow again. Pertinent positives and negatives as discussed above, a complete review of systems was performed and all other systems are negative. Vitals Signs Reviewed. General: Intubated, sedated Derm: Warm, dry Head: Atraumatic, normocephalic, symmetric Eyes: EOMI, no lid lag, anicteric sclera Mouth: No lip lesion, mucus membranes moist Cardiovascular: S1S2 reg, no murmur Lungs: Bilateral rhonchi, more prominent on the left, no accessory muscle use, mechanically ventilated Abdominal: Soft, nontender to palpation, no appreciable organomegaly Ext: No gross muscle atrophy, no edema, no contractures Neuro: Sedated Psych: Unable to assess Data Reviewed Today: Pertinent Labs: WBC 19.47, hemoglobin 11.5, creatinine 0.54, blood sugars range between 2 32-59, pH 7.52, PO291, bicarb 30 Imaging: Chest x-ray independently interpreted, shows persistent left lower lobe opacity Assessment and Plan: Active: Acute hypoxic respiratory failure Severe left sided atelectasis secondary to mucous plugging status post bronchoscopy x 2 Suspected underlying pneumonia secondary to Serratia versus yeast infection Leukocytosis, slightly improved - Pulmonology note reviewed, continue current therapy, attempt to wean mechanical ventilation tomorrow again - On meropenem 1 g IV every 8 hours, also continued on fluconazole 400 mg IV daily - Monitor CBC daily - Mucomyst 200 mg 3 times daily, continue with IV Solu-Medrol 40 every 6 hours, DuoNebs 4 times daily, every 2 hours as needed - Patient was also given 40 of IV Lasix once today Cervical myelopathy status post cervical decompression with discectomy at C7-T1 and fusion with extension of fusion from C3-C7 with new extension down to T3 Severe right L5-S1 neuroforaminal stenosis Moderate bilateral L4-5 neuroforaminal stenosis - Continue steroids as above per orthopedic surgery - Will likely need spinal cord facility for rehabilitation once medically stable - Pain control with oral [place] as needed, IV Dilaudid as needed Type 2 diabetes Hyperglycemia Continue Lantus 50 units daily, sliding scale insulin every 6 hours, monitor for hypoglycemia Chronic: Hypertension BPH Dyslipidemia NERIS DVT ppx: Lovenox Code status: Full code Anticipated discharge place: Pending clinical course Anticipated discharge time: Pending clinical course Objective - Vital Signs Vital signs: Vital Signs Temp 99.8 F H 04/01/25 08:00 Pulse 82 04/01/25 10:30 Resp 18 04/01/25 10:30 BP 96/63 04/01/25 10:30 Pulse Ox 96 04/01/25 10:30 FiO2 50 04/01/25 09:46 Intake & Output 03/31/25 04/01/25 04/01/25 18:59 06:59 18:59 Intake Total 9929.391 5018.618 527.050 Output Total 1400 2034 2200 Balance -16.767 -800.382 -1672.950 Weight 114.5 kg Intake: IV 420 360 160 Meropenem 1 gm In Sodium 200 100 100 Chloride 0.9% 100 ml @ 33 .3 mls/hr IVPB Q8HR JUAN LUIS Rx#:[id number] kvo 220 260 60 Intake, IV Titration 391.233 368.618 143.050 Amount Fluconazole in NaCl,Iso- 100 Osm 400 mg In Saline 1 200ml.bag @ 100 mls/hr IVPB DAILY@1800 JUAN LUIS Rx#: [id number] Midazolam HCl 50 mg In 45.1 Sodium Chloride 0.9% 40 ml @ 1 MG/HR 1 mls/hr IV .Q24H JUAN LUIS Rx#:[id number] propofoL 1,000 mg In 291.233 368.618 97.950 Empty Bag 1 bag @ 15 MCG/ KG/MIN 10.476 mls/hr IV . [id number] JUAN LUIS Rx#:[id number] Tube Feeding 352 416 64 Other 220 90 160 Output: Urine 1400 2034 220 Other: Voiding Method Indwelling Catheter Indwelling Catheter Indwelling Catheter - Labs CBC & Chem 7: 04/01/25 02:49 04/01/25 02:49 Labs: Abnormal Lab Results - Last 24 Hours (Table) 03/31/25 03/31/25 03/31/25 Range/Units 11:46 17:34 23:02 WBC (4.50-10.00) 10*3/uL RBC (4.40-5.60) 10*6/uL Hgb (13.0-17.0) g/dL Hct (39.6-50.0) % Immature Gran # (0.00-0.04) 10*3/uL Neutrophils # (1.80-7.70) 10*3/uL Lymphocytes # (0.90-5.00) 10*3/uL Monocytes # (0.20-1.00) 10*3/uL Eosinophils # (0.04-0.35) 10*3/uL ABG pH (7.35-7.45) ABG pO2 (83-108) mmHg ABG HCO3 (21-25) mmol/L ABG Total CO2 (19-24) mmol/L ABG O2 Saturation (94-97) % Hemoglobin (13.0-17.5) gm/dL Sodium (137-145) mmol/L BUN (9-20) mg/dL Creatinine (0.66-1.25) mg/dL Glucose (74-99) mg/dL POC Glucose (mg/dL) 257 H 247 H 232 H (70-110) mg/dL Calcium (8.4-10.2) mg/dL 04/01/25 04/01/25 04/01/25 Range/Units 02:49 02:49 04:55 WBC 19.47 H (4.50-10.00) 10*3/uL RBC 3.87 L (4.40-5.60) 10*6/uL Hgb 11.5 L (13.0-17.0) g/dL Hct 34.6 L (39.6-50.0) % Immature Gran # 0.92 H (0.00-0.04) 10*3/uL Neutrophils # 17.23 H (1.80-7.70) 10*3/uL Lymphocytes # 0.27 L (0.90-5.00) 10*3/uL Monocytes # 1.02 H (0.20-1.00) 10*3/uL Eosinophils # 0.00 L (0.04-0.35) 10*3/uL ABG pH 7.52 H (7.35-7.45) ABG pO2 (83-108) mmHg ABG HCO3 30 H (21-25) mmol/L ABG Total CO2 31 H (19-24) mmol/L ABG O2 Saturation 98.6 H (94-97) % Hemoglobin (13.0-17.5) gm/dL Sodium 134 L (137-145) mmol/L BUN 27 H (9-20) mg/dL Creatinine 0.54 L (0.66-1.25) mg/dL Glucose 259 H (74-99) mg/dL POC Glucose (mg/dL) (70-110) mg/dL Calcium 8.1 L (8.4-10.2) mg/dL 04/01/25 04/01/25 Range/Units 05:31 09:30 WBC (4.50-10.00) 10*3/uL RBC (4.40-5.60) 10*6/uL Hgb (13.0-17.0) g/dL Hct (39.6-50.0) % Immature Gran # (0.00-0.04) 10*3/uL Neutrophils # (1.80-7.70) 10*3/uL Lymphocytes # (0.90-5.00) 10*3/uL Monocytes # (0.20-1.00) 10*3/uL Eosinophils # (0.04-0.35) 10*3/uL ABG pH 7.51 H (7.35-7.45) ABG pO2 61 L (83-108) mmHg ABG HCO3 32 H (21-25) mmol/L ABG Total CO2 33 H (19-24) mmol/L ABG O2 Saturation 92.8 L (94-97) % Hemoglobin 12.7 L (13.0-17.5) gm/dL Sodium (137-145) mmol/L BUN (9-20) mg/dL Creatinine (0.66-1.25) mg/dL Glucose (74-99) mg/dL POC Glucose (mg/dL) 245 H (70-110) mg/dL Calcium (8.4-10.2) mg/dL
[2025-04-01 11:36] LABS: Glucose,Whole Blood 302 mg/dL (70-110)
[2025-04-01 17:43] LABS: Glucose,Whole Blood 236 mg/dL (70-110)
[2025-04-01 23:53] LABS: Glucose,Whole Blood 248 mg/dL (70-110)
[2025-04-02 05:14] LABS: ABG HCO3 31 mmol/L (21-25); ABG PCO2 34 mmHg (35-45); ABG PO2 103 mmHg (83-108); ABG TCO2 32 mmol/L (19-24); Allen Test Performed? Yes
[2025-04-02 05:16] LABS: ABG PH 7.57 (7.35-7.45)
[2025-04-02 05:51] LABS: Basophils # (A) 0.04 10*3/uL (0.00-0.10); Basophils % (A) 0.2 %; Eosinophils # (A) 0.00 10*3/uL (0.04-0.35); Eosinophils % (A) 0.0 %; HCT 35.6 % (39.6-50.0); HGB 11.7 g/dL (13.0-17.0); Lymphocytes # (A) 0.27 10*3/uL (0.90-5.00); Lymphocytes % (A) 1.3 %; MCH 29.7 pg (27.0-32.0); MCHC 32.9 g/dL (32.0-37.0); MCV 90.4 fL (80.0-97.0); Monocytes # (A) 1.07 10*3/uL (0.20-1.00); Monocytes % (A) 5.1 %; Neutrophils # (A) 19.16 10*3/uL (1.80-7.70); Neutrophils % (A) 91.1 %; Platelet Count 148 10*3/uL (140-440); RBC 3.94 10*6/uL (4.40-5.60); RDW 14.5 % (11.5-14.5); WBC 21.02 10*3/uL (4.50-10.00)
[2025-04-02 06:12] LABS: African American GFR (CKD) >90 (>60 ml/min/1.73 sqM); Anion Gap 2 mmol/L; Blood Urea Nitrogen 28 mg/dL (9-20); Calcium 8.1 mg/dL (8.4-10.2); Carbon Dioxide 31 mmol/L (22-30); Chloride 100 mmol/L (98-107); Glucose 245 mg/dL (74-99); Magnesium 2.3 mg/dL (1.6-2.3); Non-African American GFR(CKD) >90 (>60 ml/min/1.73 sqM); Potassium 4.4 mmol/L (3.5-5.1); Sodium 133 mmol/L (137-145)
[2025-04-02 06:23] LABS: Glucose,Whole Blood 286 mg/dL (70-110)
--- NOTE | 2025-04-02 08:02 | XR ---
EXAMINATION TYPE: XR chest 1V portable DATE OF EXAM: 04/02/2025 5:18 AM COMPARISON: None. CLINICAL INDICATION: Male, 64 years old with history of mechanical ventilation, TECHNIQUE: XR chest 1V portable view(s) obtained. FINDINGS: The heart size is normal. The pulmonary vasculature is normal. Small bilateral pleural effusions are present. Postsurgical change in the neck region Endotracheal tube tip is 6.8 cm above the aisha. Nasogastric tube transverses the thorax. IMPRESSION: 1. Small bilateral pleural effusions 2. Lines and catheters discussed above [facility], , 04/02/2025 8:00 AM
[2025-04-02 10:02] LABS: ABG HCO3 32 mmol/L (21-25); ABG PCO2 40 mmHg (35-45); ABG PH 7.51 (7.35-7.45); ABG PO2 77 mmHg (83-108); ABG TCO2 33 mmol/L (19-24); Allen Test Performed? Yes
--- NOTE | 2025-04-02 10:05 | P.PN ---
Subjective Progress Note Date: 04/02/25 Principal diagnosis: Acute hypoxic respiratory failure with left lower lobe atelectasis, pneumonia, and left lung collapse/opacification. This is a 64-year-old male patient was undergone a C 7 T1 discectomy, done posteriorly with wide laminectomy and foraminotomy and partial facetectomy. The patient was experiencing cervical myelopathy with severe bilateral lower extremity weakness and T8 paresthesia. The patient has previous history of cervical spine fusion C2-C7. The patient was found to have a large herniated disc C7-T1 with severe spinal cord stenosis and based on that the patient was taken to the operating room and underwent a C7-T1 discectomy on 03/21/2025. The patient has become progressively more hypoxic. Currently he is on Airvo at 60 L and FiO2 of 90%. His current pulse ox is in order of 90 to 93%. Slightly tachycardic. Blood pressure is also soft at 89/62. Based on worsening hypoxemia, CT of the chest was done and the patient was found to have s ignificant volume loss in the left lung compared to the right. There is marked volume loss and atelectasis in addition to an area of consolidation in the left upper lobe and elevation of the left hemidiaphragm in addition to significant gastric distention. The patient has dilated air in the stomach and colon. Blood work shows a white cell count of 14, hemoglobin 12.4 and a platelet count of 175. Sodium levels at 137, bicarb is at 23, potassium level is at 4.3 with a chloride of 102. BUN 23 with a creatinine of 0.9. The patient is resting comfortably in bed. He is wearing a hard neck collar. He is reporting some mild shortness of breath even at rest. He is tolerating the Airvo. He is currently on IV Solu-Medrol 100 mg every 6 hours post neck surgery. He is also on IV fluids with l normal saline at rate of 75 cc an hour. Comorbidities include hypertension, hyperlipidemia, diabetes mellitus type 2, obstructive sleep apnea maintained on CPAP therapy on outpatient basis On today's evaluation of 03/23/25, patient is still on the BiPAP pressure of 14 over 6 cm of water and FiO2 has been weaned down to 65%. The patient's abdomen seems to be less distended. He had 2 bowel movements and the patient is also passing flatus. Fluid balance +223 cc over the past 24 hours and the patient remains on normal saline at a rate of 75 cc an hour. Neurologically, unchanged and the patient has absent motor function lower extremities bilaterally. He is on broad-spectrum antibiotics and the patient is currently on Zosyn vancomycin combination. Follow-up chest x-ray shows some interval improvement in aeration in the left lung base. Lung volumes in the left remain small and there is some ongoing atelectatic change at left lower lobe. The patient's white cell count is 11, hemoglobin 11.3 and a platelet count of 180. Electrolytes are all within normal limits. BUN is 40 with a creatinine of 1.05. The patient is able to communicate. He is alert and awake. Denies having any specific complaints. Still wearing a hard neck collar. 03/24/2025, the patient is laying flat in bed and is currently on a BiPAP at a pressure of 14/6 with an FiO2 of 75% overnight and Airvo during the day. He remains on normal saline at rate of 75 cc an hour. Chest x-ray still showing left lower lobe consolidation. Abdomen is soft. He had 3 bowel movements. He is on Lantus insulin. The patient's mentation is awake and alert. Nevertheless, he continues to have profound weakness in the lower extremity and he remains paraplegic. Remains on IV Solu-Medrol. Blood sugars are elevated and he remains on Lantus 15 units daily and NovoLog sliding scale coverage. The white cell count 11.9, hemoglobin 11.3 and a platelet count of 201. BUN 34 with a creatinine of 0.8. Sodium levels at 136. Blood sugars up to 82. He is postop day #4 following an open decompression and fusion of C7-T1 surgery was done due to a large disc herniation and spinal cord injury. He is also status post fusion and extension from prior fusion C2-7 and near extension fusion down to T3. He is unable to move his legs still. Samuels catheter still in place. Using incentive spirometer. Afebrile. 03/25/2025, the patient is being seen for a follow-up. Repeat chest x-ray was done and shows ongoing volume loss and atelectasis in the left lung base. I also performed an ultrasound of the chest and there is no sizable pleural effusion for thoracentesis. Findings are more consistent with consolidation/atelectasis. Remains on Airvo at 60 L and FiO2 of 90%. Incentive spirometer. Overnight, using BiPAP pressure of 14/6 and use of water with an FiO2 of 80%. Remains in normal Saint rate of 75 cc an hour. Fluid balance is +550 cc over the past 24 hours. No respiratory difficulties. The white cell count of 12. Hemoglobin is 10.9. Platelet count is 210. BUN is 32 with a creatinine of 0.8. Sodium levels at 138 and potassium levels of 4.2. Remains on Zosyn and vancomycin. Neurologically unchanged and the patient continues to be paraplegic. Patient was seen today on 03/26/2025, patient remains in the ICU, he is on Airvo at 90% and 60 L flow, patient is generally weak, alert and appropriate, IV fluid at 75 cc/h, continues to have weakness from the waist down. Patient had cervical spine surgery postoperative day #6. Chest x-ray showed complete opacification of the left lung consistent with mucous plugging involving the left mainstem bronchus. Hence I discussed this with the patient today, patient needs to be bronchoscope, needs to have extraction of mucous plugs. Considering the patient is marginal at best, will need to be intubated and placed on mechanical ventilation for the procedure. Based on the findings we will decide whether the patient needs to remain on mechanical ventilation after bronchoscopy or not. Most likely he will remain ventilated after the bronchoscopy. Patient has a bit of leukocytosis with WBC of 13.3 hemoglobin 11.3 electrolytes are normal renal profile is normal. Nasal screen has been positive for MSSA not MRSA. Patient was seen today on 03/27/2025, patient remains intubated and mechanically ventilated, kept him on mechanical ventilation after his bronchoscopy yesterday and suctioning of mucous plugs from the left mainstem bronchus and left lung. Left lung continues to show good inflation, minimal left lower lobe atelectasis, patient is on assist-control rate of 18 tidal volume 550 FiO2 50% and PEEP of 8 ABG today showed a pO2 of 84 pCO2 37 pH of 7.41. Patient is also on propofol at 50 mg/kg/min IV fluids at 75 cc/h on antibiotics in the form of Zosyn and vancomycin, antibiotics to be changed once we have the final culture from the BAL. I plan to wean the patient today, possibly consider placing him on BiPAP 12/6/50% assuming he tolerates weaning and he passes his weaning parameters. Patient is awake, follows instructions, although he is still on propofol. WBC count is 14.48 hemoglobin 10.8 electrolytes are normal, BUN is 29 creatinine 0.7 Patient was seen today on 03/28/2025, patient was extubated yesterday, had to be placed on BiPAP to avoid atelectasis again of the left lung and mucous plugging patient has very poor cough, cannot clear his secretions, and his chest x-ray today is beginning to show early atelectasis in the left lower lobe, questionable effusion but ultrasound did not show much fluid. I believe it is all a picture of atelectasis involving the left lower lobe and I am afraid that the patient may have reopacification of the left lung in the next 24 hours. In the meantime I will continue patient on BiPAP, will recommend chest PT, N- acetylcysteine and albuterol, Mucinex, and hopefully we can avoid another bronchoscopy. Otherwise if the patient opacifies left lung again, may have to be bronchoscope again. And if we do I will keep him longer on mechanical ventilation. Patient remains on antibiotics/broad-spectrum he is WBC count is 19.36 hemoglobin is 10.7 electrolytes are normal renal profile is normal. Seen today on 03/29/2025, patient remains in the ICU, chest x-ray is showing wo rsening and he is again having near complete opacification of the left lung. Apparently the patient is developing mucous plugging again involving the left mainstem bronchus and the cultures from his last BAL came back showing Serratia marcescens. Considering the patient's critical illness, I am transitioning Zosyn to Merrem for better coverage of Serratia. Sensitivity is still pending on the organism. But empirically Merrem would be a better choice for Serratia marcescens for the time being. Patient still on BiPAP at 14/6/60%, and considering his abnormal chest x-ray, I am recommending bronchoscopy again and this has to be again done with the patient intubated as his O2 saturation is ma rginal even on 60% BiPAP. Patient looks comfortable, he is not in distress. Continues to have leukocytosis with WC of 23.23 hemoglobin 11.2 basic metabolic profile is normal renal profile is normal continues to have cervical collar in place. Patient was seen today on 03/30/2025, remains in the ICU, intubated and mechanically ventilated, patient is on assist-control rate of 18 tidal volume 550 FiO2 50% PEEP of 10 ABG showed a pO2 of 122 pCO2 37 pH of 7.47 hence FiO2 was cut down to 40%. Remains on Merrem remains on propofol at 40 mcg/kg/min and on Versed 1 mg/h. Patient is sedated, does not seem to be in any distress, chest x-ray is showing slight worsening in the left lower lobe, but not severe enough to justify bronchoscopy again. However considering this I am not planning to extubate the patient today as if extubated he will most likely end up requiring bronchoscopy again. Patient had positive cultures for Serratia marcescens, and is now on Merrem. Labs today were reviewed patient has leukocytosis with WBC count of 19.7 hemoglobin 11.3, basic metabolic profile is normal renal profile is normal patient is on nutritional support/enteral feeding. Chest x-ray today is a bit worrisome hence no plans to wean and extubate today. Patient was seen today on 03/31/2025, remains in the ICU, intubated and mechanically ventilated. Patient is on assist-control rate of 18 tidal volume 550 FiO2 40% and PEEP of 10 ABG on 45% showed a pO2 of 86 pCO2 42 pH of 7.44. Chest x-ray is showing left lower lobe atelectasis/airspace disease involving the left lower lobe hence I was concerned about recollapsing of the left lung, bronchoscopy was performed, and the secretions noted in the left lower lobe with were very minimal. Did not require lavage, there was not enough secretions to d o lavage. Hence the patient was kept intubated mechanically ventilated, he is now on propofol at 45 mcg/kg/min is on Versed 1 mg/h and is receiving vital HP at 32 cc/h. Remains on fluconazole, remains on Merrem. Continues to have a bit of leukocytosis with WBC of 19.12 hemoglobin 11.7 electrolytes are normal, renal profile is normal. Patient was seen today on 04/01/2025, remains in the ICU, remains intubated and mechanically ventilated. Patient is sedated with propofol at 45 mcg/kg/min and Versed 1 mg/h. Patient is calm he is on assist-control mode of mechanical ventilation rate 18 tidal volume 550 FiO2 40% PEEP that ABG showed a PO2 of 91 pCO2 37 pH of 7.52 chest x-ray showed improvement in his left lower lobe atelectasis but he does have bilateral pleural effusions has I recommended a dose of Lasix 40 mg IV push x 1 was given. Considering his ABG is better considering his chest x-ray is showing improvement, I recommended a trial of weaning. However on pressure support and CPAP, his ABG was marginal with a pO2 of 61 pCO2 40 pH of 7.51, hence I felt the patient is not ready to be weaned especially with relatively low pO2 of 61. And I felt the patient should be back on sedation and back on assist-control mode of mechanical ventilation. In the meantime patient remains on nutritional support, remains in GI prophylaxis: And again he received a dose of Lasix earlier today for what seems to be bilateral pleural effusions. Continues to have leukocytosis with WBC count of 19.4 hemoglobin 11.5 electrolytes are normal, renal profile is normal blood sugar is 245 Patient was seen today on 04/02/2025, remains in the ICU, intubated and mechanically ventilated. Remains on the same ventilator settings, is on assist- control mode of mechanical ventilation, ABG today showed a pO2 of 103 pCO2 34 pH of 7.57 chest x-ray is showing improvement in his left-sided opacity much better today compared to the last few days, WBC count remains elevated at 21.02 hemoglobin is 11.7 electrolytes are normal, renal profile is normal. Blood sugar is 286. Considering the improvement noted on the chest x-ray, patient will be given another weaning trial today, and I will discontinue his sedation, placed patient on pressure support of 12 and CPAP, his PEEP is down to 6. Patient will be weaned and if tolerated we could proceed to extubation. Otherwise may keep patient mechanically ventilated again for another day. In the meantime he is receiving Merrem for his Serratia marcescens pneumonia. Objective - Vital Signs Vital signs: Vital Signs Temp 98.5 F 04/02/25 08:00 Pulse 92 04/02/25 09:00 Resp 22 04/02/25 09:00 BP 110/53 04/02/25 09:00 Pulse Ox 96 04/02/25 09:00 FiO2 50 04/02/25 09:23 Intake & Output 04/01/25 04/02/25 04/02/25 18:59 06:59 18:59 Intake Total 7389.656 1719.708 446.267 Output Total 3400 1650 250 Balance -2036.622 -449.292 196.267 Weight 114.8 kg Intake: IV 320 360 140 Meropenem 1 gm In Sodium 100 100 100 Chloride 0.9% 100 ml @ 33 .3 mls/hr IVPB Q8HR [facility] Rx#:[id number] kvo 220 260 40 Intake, IV Titration 503.378 334.708 122.267 Amount Fluconazole in NaCl,Iso- 100 Osm 400 mg In Saline 1 200ml.bag @ 100 mls/hr IVPB DAILY@1800 [facility] Rx#: [id number] Midazolam HCl 50 mg In 45.1 22.267 Sodium Chloride 0.9% 40 ml @ 1 MG/HR 1 mls/hr IV .Q24H [facility] Rx#:[id number] propofoL 1,000 mg In 358.278 334.708 100.000 Empty Bag 1 bag @ 15 MCG/ KG/MIN 10.476 mls/hr IV . Q9H33M [facility] Rx#:[id number] Oral 90 Tube Feeding 320 416 64 Other 220 90 30 Output: Urine 3400 1650 250 Other: Voiding Method Indwelling Catheter Indwelling Catheter Indwelling Catheter # Bowel Movements 1 1 - Exam General: Reveals 64-year-old white male, intubated, sedated, mechanically ventilated Derm: No rashes. Head: atraumatic, normocephalic orogastric tube and endotracheal tube are intact Eyes: EOMI, anicteric sclera Mouth: Moist mucous membranes, no evidence of lesions Cardiovascular: Normal S1 S2 reg, no murmur, rubs, or gallops Lungs: Good breath sound bilaterally no rhonchi no wheezes Abdominal: soft, a bowel sounds are present Extremities: no gross muscle atrophy, no edema, no contractures, Neuro: Could not assess patient is sedated Psych: Could not fully assess - Labs CBC & Chem 7: 04/02/25 05:18 04/02/25 05:18 Labs: Abnormal Lab Results - Last 24 Hours (Table) 04/01/25 04/01/25 04/01/25 Range/Units 11:35 17:41 23:52 WBC (4.50-10.00) 10*3/uL RBC (4.40-5.60) 10*6/uL Hgb (13.0-17.0) g/dL Hct (39.6-50.0) % Immature Gran # (0.00-0.04) 10*3/uL Neutrophils # (1.80-7.70) 10*3/uL Lymphocytes # (0.90-5.00) 10*3/uL Monocytes # (0.20-1.00) 10*3/uL Eosinophils # (0.04-0.35) 10*3/uL ABG pH (7.35-7.45) ABG pCO2 (35-45) mmHg ABG HCO3 (21-25) mmol/L ABG Total CO2 (19-24) mmol/L ABG O2 Saturation (94-97) % Hemoglobin (13.0-17.5) gm/dL Sodium (137-145) mmol/L Carbon Dioxide (22-30) mmol/L BUN (9-20) mg/dL Creatinine (0.66-1.25) mg/dL Glucose (74-99) mg/dL POC Glucose (mg/dL) 302 H 236 H 248 H (70-110) mg/dL Calcium (8.4-10.2) mg/dL 04/02/25 04/02/25 04/02/25 Range/Units 05:12 05:18 05:18 WBC 21.02 H (4.50-10.00) 10*3/uL RBC 3.94 L (4.40-5.60) 10*6/uL Hgb 11.7 L (13.0-17.0) g/dL Hct 35.6 L (39.6-50.0) % Immature Gran # 0.48 H (0.00-0.04) 10*3/uL Neutrophils # 19.16 H (1.80-7.70) 10*3/uL Lymphocytes # 0.27 L (0.90-5.00) 10*3/uL Monocytes # 1.07 H (0.20-1.00) 10*3/uL Eosinophils # 0.00 L (0.04-0.35) 10*3/uL ABG pH 7.57 H* (7.35-7.45) ABG pCO2 34 L (35-45) mmHg ABG HCO3 31 H (21-25) mmol/L ABG Total CO2 32 H (19-24) mmol/L ABG O2 Saturation 98.9 H (94-97) % Hemoglobin 11.3 L (13.0-17.5) gm/dL Sodium 133 L (137-145) mmol/L Carbon Dioxide 31 H (22-30) mmol/L BUN 28 H (9-20) mg/dL Creatinine 0.58 L (0.66-1.25) mg/dL Glucose 245 H (74-99) mg/dL POC Glucose (mg/dL) (70-110) mg/dL Calcium 8.1 L (8.4-10.2) mg/dL 04/02/25 Range/Units 06:22 WBC (4.50-10.00) 10*3/uL RBC (4.40-5.60) 10*6/uL Hgb (13.0-17.0) g/dL Hct (39.6-50.0) % Immature Gran # (0.00-0.04) 10*3/uL Neutrophils # (1.80-7.70) 10*3/uL Lymphocytes # (0.90-5.00) 10*3/uL Monocytes # (0.20-1.00) 10*3/uL Eosinophils # (0.04-0.35) 10*3/uL ABG pH (7.35-7.45) ABG pCO2 (35-45) mmHg ABG HCO3 (21-25) mmol/L ABG Total CO2 (19-24) mmol/L ABG O2 Saturation (94-97) % Hemoglobin (13.0-17.5) gm/dL Sodium (137-145) mmol/L Carbon Dioxide (22-30) mmol/L BUN (9-20) mg/dL Creatinine (0.66-1.25) mg/dL Glucose (74-99) mg/dL POC Glucose (mg/dL) 286 H (70-110) mg/dL Calcium (8.4-10.2) mg/dL Assessment and Plan Assessment: Impression: Acute hypoxic respiratory failure, secondary to recurrent episodes of left lung collapse and opacification mostly because the patient cannot clear his secretions and he has a very poor cough, in addition his sputum/BAL has been positive for Serratia. Recurrent opacification of left lung secondary to mucous plugging requiring bronchoscopy and suctioning of mucous plugs and BAL . Patient already had bronchoscopies x 2 for complete opacification of the left lung, on 03/31 he underwent a third bronchoscopy but no evidence of significant endobronchial mucous plugs noted. In the meantime patient remains on Merrem for what seems to be a Serratia marcescens pneumonia. Left-sided pneumonia secondary to Serratia marcescens, patient will remain on Merrem for now. Severe spinal canal stenosis at C7-T1 status post discectomy and decompression and fusion patient is now postoperative day #13 Obstructive sleep apnea syndrome on CPAP normally Type 2 diabetes Hypotension could be related to sepsis could also be neurogenic post spinal surgery, resolved Dyslipidemia Bilateral lower extremities weakness related to his spinal issues/cervical/thoracic spine issues T8 paresthesia History of severe L5-S1 neuroforaminal stenosis Recommendation: Continue ventilatory support, however I will proceed with a trial of weaning today by recommending pressure support of 12 and CPAP Continue nutritional support Continue GI DVT prophylaxis Continue chest physical therapy Continue Mucomyst and acetylcysteine and updrafts Chest x-ray today is noted to be improved and chest x-ray is improved Continue Merrem for Serratia marcescens pneumonia Continue cervical collar Remains critically ill Critical care time is 34 minutes Time with Patient: Greater than 30
--- NOTE | 2025-04-02 11:10 | P.PN ---
Subjective Progress Note Date: 04/02/25 This is a 64 year old male who is status post open decompression and fusion C7- T1. This is postoperative day #13 and patient is seen and evaluated in the ICU today. Patient is extubated and awake. Patient responds with a thumbs up. The patient is seen and examined. I agree with the above. He is awake and he will give a thumbs up bilaterally. He is denying any pain. He is denying any new problems. He is demonstrating some global weakness at his upper extremities without a specific focal deficit at his upper extremities. He does have some weakness in his shoulders bilaterally but he is able to hold them up with some lifting but has difficulty doing this. He is not having new numbness that he is reporting when questioned. He has still been on his steroid and we can wean from this if it is okay from medicine service. Objective - Vital Signs Vital signs: Vital Signs Temp 98.5 F 04/02/25 08:00 Pulse 82 04/02/25 11:00 Resp 15 04/02/25 11:00 BP 138/70 04/02/25 11:00 Pulse Ox 95 04/02/25 11:00 FiO2 50 04/02/25 11:00 Intake & Output 04/01/25 04/02/25 04/02/25 18:59 06:59 18:59 Intake Total 8059.432 2084.708 486.267 Output Total 3400 1650 560 Balance -2036.622 -449.292 -73.733 Weight 114.8 kg Intake: IV 320 360 180 Meropenem 1 gm In Sodium 100 100 100 Chloride 0.9% 100 ml @ 33 .3 mls/hr IVPB Q8HR [facility] Rx#:[id number] kvo 220 260 80 Intake, IV Titration 503.378 334.708 122.267 Amount Fluconazole in NaCl,Iso- 100 Osm 400 mg In Saline 1 200ml.bag @ 100 mls/hr IVPB DAILY@1800 [facility] Rx#: [id number] Midazolam HCl 50 mg In 45.1 22.267 Sodium Chloride 0.9% 40 ml @ 1 MG/HR 1 mls/hr IV .Q24H [facility] Rx#:[id number] propofoL 1,000 mg In 358.278 334.708 100.000 Empty Bag 1 bag @ 15 MCG/ KG/MIN 10.476 mls/hr IV . Q9H33M ON LICENSE OF [facility] Rx#:[id number] Oral 90 Tube Feeding 320 416 64 Other 220 90 30 Output: Urine 3400 1650 560 Other: Voiding Method Indwelling Catheter Indwelling Catheter Indwelling Catheter # Bowel Movements 1 1 - Exam On exam patient is in no acute distress. Patient is extubated and alert. C- collar intact. Calves are soft and nontender to palpation to bilateral lower extremities. No neurologic change on exam of bilateral lower extremities. - Labs CBC & Chem 7: 04/02/25 05:18 04/02/25 05:18 Labs: Abnormal Lab Results - Last 24 Hours (Table) 04/01/25 04/01/25 04/01/25 Range/Units 11:35 17:41 23:52 WBC (4.50-10.00) 10*3/uL RBC (4.40-5.60) 10*6/uL Hgb (13.0-17.0) g/dL Hct (39.6-50.0) % Immature Gran # (0.00-0.04) 10*3/uL Neutrophils # (1.80-7.70) 10*3/uL Lymphocytes # (0.90-5.00) 10*3/uL Monocytes # (0.20-1.00) 10*3/uL Eosinophils # (0.04-0.35) 10*3/uL ABG pH (7.35-7.45) ABG pCO2 (35-45) mmHg ABG pO2 (83-108) mmHg ABG HCO3 (21-25) mmol/L ABG Total CO2 (19-24) mmol/L ABG O2 Saturation (94-97) % Hemoglobin (13.0-17.5) gm/dL Sodium (137-145) mmol/L Carbon Dioxide (22-30) mmol/L BUN (9-20) mg/dL Creatinine (0.66-1.25) mg/dL Glucose (74-99) mg/dL POC Glucose (mg/dL) 302 H 236 H 248 H (70-110) mg/dL Calcium (8.4-10.2) mg/dL 04/02/25 04/02/25 04/02/25 Range/Units 05:12 05:18 05:18 WBC 21.02 H (4.50-10.00) 10*3/uL RBC 3.94 L (4.40-5.60) 10*6/uL Hgb 11.7 L (13.0-17.0) g/dL Hct 35.6 L (39.6-50.0) % Immature Gran # 0.48 H (0.00-0.04) 10*3/uL Neutrophils # 19.16 H (1.80-7.70) 10*3/uL Lymphocytes # 0.27 L (0.90-5.00) 10*3/uL Monocytes # 1.07 H (0.20-1.00) 10*3/uL Eosinophils # 0.00 L (0.04-0.35) 10*3/uL ABG pH 7.57 H* (7.35-7.45) ABG pCO2 34 L (35-45) mmHg ABG pO2 (83-108) mmHg ABG HCO3 31 H (21-25) mmol/L ABG Total CO2 32 H (19-24) mmol/L ABG O2 Saturation 98.9 H (94-97) % Hemoglobin 11.3 L (13.0-17.5) gm/dL Sodium 133 L (137-145) mmol/L Carbon Dioxide 31 H (22-30) mmol/L BUN 28 H (9-20) mg/dL Creatinine 0.58 L (0.66-1.25) mg/dL Glucose 245 H (74-99) mg/dL POC Glucose (mg/dL) (70-110) mg/dL Calcium 8.1 L (8.4-10.2) mg/dL 04/02/25 04/02/25 Range/Units 06:22 10:01 WBC (4.50-10.00) 10*3/uL RBC (4.40-5.60) 10*6/uL Hgb (13.0-17.0) g/dL Hct (39.6-50.0) % Immature Gran # (0.00-0.04) 10*3/uL Neutrophils # (1.80-7.70) 10*3/uL Lymphocytes # (0.90-5.00) 10*3/uL Monocytes # (0.20-1.00) 10*3/uL Eosinophils # (0.04-0.35) 10*3/uL ABG pH 7.51 H (7.35-7.45) ABG pCO2 (35-45) mmHg ABG pO2 77 L (83-108) mmHg ABG HCO3 32 H (21-25) mmol/L ABG Total CO2 33 H (19-24) mmol/L ABG O2 Saturation (94-97) % Hemoglobin 12.1 L (13.0-17.5) gm/dL Sodium (137-145) mmol/L Carbon Dioxide (22-30) mmol/L BUN (9-20) mg/dL Creatinine (0.66-1.25) mg/dL Glucose (74-99) mg/dL POC Glucose (mg/dL) 286 H (70-110) mg/dL Calcium (8.4-10.2) mg/dL Assessment and Plan Assessment: Acute spinal cord injury with flaccid paralysis bilateral lower extremities Status post open decompression and fusion C7-T1 due to large disc herniation C7- T1 with spinal cord injury Status post fusion with extension from prior fusion C2-C7 with new extension of fusion down to T3 Acute respiratory failure being managed with critical care. Plan: Maintain c collar. The surgical site appears stable. Patient is currently extubated and being managed by critical care team. We will continue to follow closely. Further recommendations pending patient's clinical course.
[2025-04-02] MEDS ORDERED: METOCLOPRAMIDE 5 MG/ML 2 ML VIAL IM PRN (11:12)
--- NOTE | 2025-04-02 11:52 | P.PN ---
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 Wheeler) approximately 2 months ago, migraine headaches, depression. Presented to the emergency department with a chief complaint of sudden onset numbness extending from periumbilical region downwards throughout groin and bilateral lower extremities followed by weakness of bilateral lower extremities. Patient states he was moving some plants at home when he had sudden onset of numbness around his lower abdomen circling around him like a belt that quickly radiated into his groin and into bilateral lower extremities accompanied by weakness of bilateral lower extremities which resulted in his legs giving out from beneath him causing him to fall to the ground. Patient de nied having any dizziness or lightheadedness, headache, neck or back pain, or experiencing any pain in his abdomen, groin, or lower extremities. He denies hitting his head during the fall and denies having any loss of consciousness. But reports due to the sudden onset numbness and weakness he was unable to stand back up and had to have his call EMS for transfer to the hospital. Upon arrival to our facility, patient underwent evaluation in the emergency department. Vital signs upon arrival show blood pressure 165/97, heart rate 88, respiratory rate 18, temp 98.8 F, and SpO2 of 97% on room air. CT lumbar spine CT abdomen and pelvis was also negative for acute intra-abdominal process completed showing no evidence for spinal fracture, no evidence for significant spinal canal stenosis revealing severe right L5-S1 neuroforaminal stenosis and moderate bilateral L4-L5 neuroforaminal stenosis, revealing a right middle lobe pulmonary nodule 8 mm, prostamegaly, colonic diverticulosis, and bilateral adrenal myolipoma's. Labs completed and reviewed. CBC unremarkable. BMP showing hyperglycemia with blood glucose of 146. Liver profile normal findings. Urinalysis positive for glucose and ketones but negative for infection. Patient was admitted under services with consultation to neurology and orthospine surgery. MRI lumbar spine was completed showing no definitive evidence of disc herniation or significant spinal canal stenosis revealing minimal disc degeneration with associated osteoarthritic changes. Patient underwent extensive cervical spinal surgery on the evening of 03/20/2025 through 03/21/2025. 04/02/25: Patient seen and examined at bedside today in the ICU. He was intubated but off sedation and weaning parameters were being obtained. No acute events overnight. He denies any acute complaints today. Review of systems: Pertinent positives and negatives as discussed in HPI, a complete review of systems was performed and all other systems are negative. Vitals: Signs Reviewed and stable Physical examination: General: Intubated, off sedation Derm: Warm, dry Head: Atraumatic, normocephalic, symmetric Eyes: EOMI, no lid lag, anicteric sclera Mouth: No lip lesion, mucus membranes moist Cardiovascular: S1S2 reg, no murmur Lungs: Bilateral rhonchi, more prominent on the left, no accessory muscle use, mechanically ventilated Abdominal: Soft, nontender to palpation, no appreciable organomegaly Ext: No gross muscle atrophy, no edema, no contractures Neuro: Alert, oriented Psych: Appropriate affect Data Reviewed Today: Labs: WBC 21.02, hemoglobin 11.7, sodium 133, bicarb 31, creatinine 0.58, glucose 286 ABG: PO2 103, pCO2 34, pH 7.57 Imaging: Chest Xray independently interpreted today shows small bilateral pleural effusions. Assessment/Plan: Patient is a 64 year old male who presented with sudden onset numbness and weakness in bilateral lower extremities. He underwent extensive cervical decompression with discectomy and fusion. He was then intubated due to acute hypoxemic respiratory failure secondary to severe atelectasis and underlying pneumonia. Extubated today. Active: #. Acute hypoxemic respiratory failure secondary to severe atelectasis and mucous plugging status post bronchoscopy x 2 #. Suspected underlying pneumonia secondary to Serratia #. Leukocytosis, slightly improved CT angio of chest shows markedly progressive left lung volume loss with marked atelectasis increasing suspicion for endobronchial obstruction/neoplasm and further evaluation may be indicated. Interval development of mild right lower lobe atelectasis. Continue DuoNebs 4 times daily and every 2 hours as needed Encourage incentive spirometry Continue meropenem 1 g IV every 8 hours, fluconazole 400 mg IVPB daily Continue with Mucomyst, IV Solu-Medrol 40 every 6 hours, DuoNebs 4 times daily, every 2 hours as needed Continue BiPAP Bronchial washings culture showed positive for Serratia, nasal swab showed pos itive for Staph aureus, not MRSA Monitor CBC -Extubated today and is on BIPAP with FiO2 50% #. Cervical myelopathy secondary to severe spinal canal stenosis involving C7-T1 #. Status post extensive cervical decompression with discectomy at C7-T1 and fusion with extension of fusion from C3-C7 with new extension down to T3 #. Severe right L5-S1 neuroforaminal stenosis #. Moderate bilateral L4-L5 neuroforaminal stenosis Orthopedic surgery following status post extensive cervical decompression with dissecting at C7-T1 and fusion with extension of fusion from C3-C7 with new extension down to T3 Continue inpatient rehab Resume lisinopril, hydralazine as needed Continue neurochecks every 4 hours and as needed. Continue Solu-Medrol to 40 mg IV every 6 hours Maintain fall precautions Continue Samuels catheter management Continue Unna boot bilaterally to prevent foot drop PT/OT following Neurology consultation is appreciated -Orthopedic note reviewed, plan is when patient is medically stable will be discharged to a spinal cord facility for rehabilitation. #. Type II gpy-wzjmfoe-vxfbbysbv diabetes mellitus with hyperglycemia Hyperglycemia likely secondary to high-dose steroids being administered at this time. Will continue glycemic protocol with Humalog sliding scale. Continue Lantus to 50 units subcu daily as basal insulin Continue sliding scale insulin every 6 hours -Glucose today 286, initiate premeal insulin #. Bilateral lower extremity edema Bilateral lower extremity Doppler ultrasound negative for DVT #. Metabolic alkalosis Bicarb 31, likely contraction alkalosis secondary to diuretics -Monitor BMP #. Hyponatremia Na 133, likely secondary to lasix -Monitor BMP Chronic: #. Hypertension #. Hyperlipidemia #. Obstructive sleep apnea #. BPH Continue lisinopril 40 mg p.o. daily, atorvastatin 40 mg p.o at bedtime, tamsulosin 0.4 mg p.o. daily, continue CPAP nightly and while napping. F: None E: Replete as required N: Enteral tube feeding A: Bed bound DVT prophylaxis: Lovenox 40 mg subcu daily Code status: Full code Anticipated discharge place: Pending clinical course Anticipated discharge time: Pending clinical course Dictation was produced using [employer] dictation software. please excuse any grammatical, word or spelling errors. Urban Hughes MD PGY-1 IM I have seen and evaluated the patient today. Discussed with the resident and agree with the residents finding and plan as documented in the resident's note. Changes highlighted in blue font. Objective - Vital Signs Vital signs: Vital Signs Temp 98.6 F 04/02/25 04:00 Pulse 72 04/02/25 06:00 Resp 18 04/02/25 06:00 BP 122/68 04/02/25 06:00 Pulse Ox 99 04/02/25 06:00 FiO2 50 04/02/25 04:05 Intake & Output 04/01/25 04/01/25 04/02/25 06:59 18:59 06:59 Intake Total 0950.034 2224.378 1148.708 Output Total 5 3400 1550 Balance -800.382 -2036.622 -401.292 Weight 114.5 kg 114.8 kg Intake: IV 360 320 340 Meropenem 1 gm In Sodium 100 100 100 Chloride 0.9% 100 ml @ 33 .3 mls/hr IVPB Q8HR J[facility] Rx#:[id number] kvo 260 220 240 Intake, IV Titration 368.618 503.378 334.708 Amount Fluconazole in NaCl,Iso- 100 Osm 400 mg In Saline 1 200ml.bag @ 100 mls/hr IVPB DAILY@1800 JU[facility] LU[facility] Rx#: [id number] Midazolam HCl 50 mg In 45.1 Sodium Chloride 0.9% 40 ml @ 1 MG/HR 1 mls/hr IV .Q24H [facility] LU[facility] Rx#:[id number] propofoL 1,000 mg In 368.618 358.278 334.708 Empty Bag 1 bag @ 15 MCG/ KG/MIN 10.476 mls/hr IV . Q9H33M [facility] LUIS Rx#:[id number] Tube Feeding 416 320 384 Other 90 220 90 Output: Urine 5 3400 1550 Other: Voiding Method Indwelling Catheter Indwelling Catheter Indwelling Catheter # Bowel Movements 1 - Labs CBC & Chem 7: 04/02/25 05:18 04/02/25 05:18 Labs: Abnormal Lab Results - Last 24 Hours (Table) 04/01/25 04/01/25 04/01/25 Range/Units 09:30 11:35 17:41 WBC (4.50-10.00) 10*3/uL RBC (4.40-5.60) 10*6/uL Hgb (13.0-17.0) g/dL Hct (39.6-50.0) % Immature Gran # (0.00-0.04) 10*3/uL Neutrophils # (1.80-7.70) 10*3/uL Lymphocytes # (0.90-5.00) 10*3/uL Monocytes # (0.20-1.00) 10*3/uL Eosinophils # (0.04-0.35) 10*3/uL ABG pH 7.51 H (7.35-7.45) ABG pCO2 (35-45) mmHg ABG pO2 61 L (83-108) mmHg ABG HCO3 32 H (21-25) mmol/L ABG Total CO2 33 H (19-24) mmol/L ABG O2 Saturation 92.8 L (94-97) % Hemoglobin 12.7 L (13.0-17.5) gm/dL Sodium (137-145) mmol/L Carbon Dioxide (22-30) mmol/L BUN (9-20) mg/dL Creatinine (0.66-1.25) mg/dL Glucose (74-99) mg/dL POC Glucose (mg/dL) 302 H 236 H (70-110) mg/dL Calcium (8.4-10.2) mg/dL 04/01/25 04/02/25 04/02/25 Range/Units 23:52 05:12 05:18 WBC 21.02 H (4.50-10.00) 10*3/uL RBC 3.94 L (4.40-5.60) 10*6/uL Hgb 11.7 L (13.0-17.0) g/dL Hct 35.6 L (39.6-50.0) % Immature Gran # 0.48 H (0.00-0.04) 10*3/uL Neutrophils # 19.16 H (1.80-7.70) 10*3/uL Lymphocytes # 0.27 L (0.90-5.00) 10*3/uL Monocytes # 1.07 H (0.20-1.00) 10*3/uL Eosinophils # 0.00 L (0.04-0.35) 10*3/uL ABG pH 7.57 H* (7.35-7.45) ABG pCO2 34 L (35-45) mmHg ABG pO2 (83-108) mmHg ABG HCO3 31 H (21-25) mmol/L ABG Total CO2 32 H (19-24) mmol/L ABG O2 Saturation 98.9 H (94-97) % Hemoglobin 11.3 L (13.0-17.5) gm/dL Sodium (137-145) mmol/L Carbon Dioxide (22-30) mmol/L BUN (9-20) mg/dL Creatinine (0.66-1.25) mg/dL Glucose (74-99) mg/dL POC Glucose (mg/dL) 248 H (70-110) mg/dL Calcium (8.4-10.2) mg/dL 04/02/25 04/02/25 Range/Units 05:18 06:22 WBC (4.50-10.00) 10*3/uL RBC (4.40-5.60) 10*6/uL Hgb (13.0-17.0) g/dL Hct (39.6-50.0) % Immature Gran # (0.00-0.04) 10*3/uL Neutrophils # (1.80-7.70) 10*3/uL Lymphocytes # (0.90-5.00) 10*3/uL Monocytes # (0.20-1.00) 10*3/uL Eosinophils # (0.04-0.35) 10*3/uL ABG pH (7.35-7.45) ABG pCO2 (35-45) mmHg ABG pO2 (83-108) mmHg ABG HCO3 (21-25) mmol/L ABG Total CO2 (19-24) mmol/L ABG O2 Saturation (94-97) % Hemoglobin (13.0-17.5) gm/dL Sodium 133 L (137-145) mmol/L Carbon Dioxide 31 H (22-30) mmol/L BUN 28 H (9-20) mg/dL Creatinine 0.58 L (0.66-1.25) mg/dL Glucose 245 H (74-99) mg/dL POC Glucose (mg/dL) 286 H (70-110) mg/dL Calcium 8.1 L (8.4-10.2) mg/dL
[2025-04-02 11:59] LABS: Glucose,Whole Blood 247 mg/dL (70-110)
[2025-04-02] MEDS: INSULIN LISPRO (HumaLOG) 100 UNIT/ML 10 mL VL SQ SCH (12:10)
[2025-04-02 17:44] LABS: Glucose,Whole Blood 203 mg/dL (70-110)
[2025-04-02 23:43] LABS: Glucose,Whole Blood 162 mg/dL (70-110)
[2025-04-03 03:39] LABS: HCT 36.5 % (39.6-50.0); HGB 11.8 g/dL (13.0-17.0); MCH 29.5 pg (27.0-32.0); MCHC 32.3 g/dL (32.0-37.0); MCV 91.3 fL (80.0-97.0); Platelet Count 123 10*3/uL (140-440); RBC 4.00 10*6/uL (4.40-5.60); RDW 14.1 % (11.5-14.5); WBC 20.26 10*3/uL (4.50-10.00)
[2025-04-03 03:54] LABS: African American GFR (CKD) >90 (>60 ml/min/1.73 sqM); Anion Gap 2 mmol/L; Blood Urea Nitrogen 29 mg/dL (9-20); Calcium 8.3 mg/dL (8.4-10.2); Carbon Dioxide 28 mmol/L (22-30); Chloride 103 mmol/L (98-107); Glucose 176 mg/dL (74-99); Non-African American GFR(CKD) >90 (>60 ml/min/1.73 sqM); Potassium 4.2 mmol/L (3.5-5.1); Sodium 133 mmol/L (137-145)
[2025-04-03 05:29] LABS: Glucose,Whole Blood 160 mg/dL (70-110)
--- NOTE | 2025-04-03 07:42 | XR ---
EXAMINATION TYPE: XR chest 1V portable DATE OF EXAM: 04/03/2025 6:05 AM COMPARISON: None. CLINICAL INDICATION: Male, 64 years old with history of mechanical ventilation, TECHNIQUE: XR chest 1V portable views of the chest are obtained. FINDINGS: Demonstrated are scattered senescent parenchymal change. Endotracheal and NG tubes have been removed . Left basilar opacity persists which may reflect atelectasis and/or effusion. The heart is stable. Hilar and mediastinal structures are within normal limits. Degenerative changes are seen of the dorsal spine. Postoperative changes of the cervical spine noted. IMPRESSION: 1. Left basilar opacity persists which may reflect atelectasis and/or effusion. [facility], , 04/03/2025 7:40 AM
--- NOTE | 2025-04-03 11:16 | P.PN ---
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 Wheeler) approximately 2 months ago, migraine headaches, depression. Presented to the emergency department with a chief complaint of sudden onset numbness extending from periumbilical region downwards throughout groin and bilateral lower extremities followed by weakness of bilateral lower extremities. Patient states he was moving some plants at home when he had sudden onset of numbness around his lower abdomen circling around him like a belt that quickly radiated into his groin and into bilateral lower extremities accompanied by weakness of bilateral lower extremities which resulted in his legs giving out from beneath him causing him to fall to the ground. Patient de nied having any dizziness or lightheadedness, headache, neck or back pain, or experiencing any pain in his abdomen, groin, or lower extremities. He denies hitting his head during the fall and denies having any loss of consciousness. But reports due to the sudden onset numbness and weakness he was unable to stand back up and had to have his call EMS for transfer to the hospital. Upon arrival to our facility, patient underwent evaluation in the emergency department. Vital signs upon arrival show blood pressure 165/97, heart rate 88, respiratory rate 18, temp 98.8 F, and SpO2 of 97% on room air. CT lumbar spine CT abdomen and pelvis was also negative for acute intra-abdominal process completed showing no evidence for spinal fracture, no evidence for significant spinal canal stenosis revealing severe right L5-S1 neuroforaminal stenosis and moderate bilateral L4-L5 neuroforaminal stenosis, revealing a right middle lobe pulmonary nodule 8 mm, prostamegaly, colonic diverticulosis, and bilateral adrenal myolipoma's. Labs completed and reviewed. CBC unremarkable. BMP showing hyperglycemia with blood glucose of 146. Liver profile normal findings. Urinalysis positive for glucose and ketones but negative for infection. Patient was admitted under services with consultation to neurology and orthospine surgery. MRI lumbar spine was completed showing no definitive evidence of disc herniation or significant spinal canal stenosis revealing minimal disc degeneration with associated osteoarthritic changes. Patient underwent extensive cervical spinal surgery on the evening of 03/20/2025 through 03/21/2025. 04/02/25: Patient seen and examined at bedside today in the ICU. He was intubated but off sedation and weaning parameters were being obtained. No acute events overnight. He denies any acute complaints today. 04/03/25: Patient evaluated at bedside. He remains in the ICU. He was extubated yesterday. He did well overnight, but today morning his SpO2 dropped to 80s and his BIPAP was put on 100% FiO2 briefly. Currently at 14/8/80%. He is awake and responds with a thumbs up. Review of systems: Pertinent positives and negatives as discussed in HPI, a complete review of systems was performed and all other systems are negative. Vitals: Signs Reviewed and stable Physical examination: General: nontoxic, no distress, appears at stated age, on BIPAP Derm: Warm, dry Head: Atraumatic, normocephalic, symmetric Eyes: EOMI, no lid lag, anicteric sclera Mouth: No lip lesion, mucus membranes moist Cardiovascular: S1S2 reg, no murmur Lungs: Bilateral rhonchi, more prominent on the left, no accessory muscle use Abdominal: Soft, nontender to palpation, no appreciable organomegaly Ext: No gross muscle atrophy, no edema, no contractures Neuro: Awake and alert Psych: Appropriate affect Data Reviewed Today: Labs: WBC 20.26, hemoglobin 11.8, sodium 133, bicarb 28, creatinine 0.43, Glucose 160 Imaging: Chest Xray today shows left basilar opacity persists which may reflect atelectasis and/or effusion Assessment/Plan: Patient is a 64 year old male who presented with sudden onset numbness and weakness in bilateral lower extremities. He underwent extensive cervical decompression with discectomy and fusion. He was then intubated due to acute hypoxemic respiratory failure secondary to severe atelectasis and underlying pneumonia. Extubated on 04/02/25. Active: #. Acute hypoxemic respiratory failure secondary to severe atelectasis and mucous plugging status post bronchoscopy x 2 #. Suspected underlying pneumonia secondary to Serratia #. Leukocytosis, slightly improved CT angio of chest shows markedly progressive left lung volume loss with marked atelectasis increasing suspicion for endobronchial obstruction/neoplasm and further evaluation may be indicated. Interval development of mild right lower lobe atelectasis. Bronchial washings culture showed positive for Serratia, nasal swab showed positive for Staph aureus, not MRSA Extubated on 04/02/25 Continue BiPAP IV Solu-Medrol decreased to 40 mg every 8 hours Continue DuoNebs 4 times daily and every 2 hours as needed Continue meropenem 1 g IV every 8 hours, fluconazole 400 mg IVPB daily Continue with Mucomyst,DuoNebs 4 times daily, every 2 hours as needed Encourage incentive spirometry Monitor CBC #. Cervical myelopathy secondary to severe spinal canal stenosis involving C7-T1 #. Status post extensive cervical decompression with discectomy at C7-T1 and fusion with extension of fusion from C3-C7 with new extension down to T3 #. Severe right L5-S1 neuroforaminal stenosis #. Moderate bilateral L4-L5 neuroforaminal stenosis Orthopedic surgery following status post extensive cervical decompression with dissecting at C7-T1 and fusion with extension of fusion from C3-C7 with new extension down to T3 Solu-Medrol decreased to 40 mg IV every 8 hours Continue inpatient rehab Resume lisinopril, hydralazine as needed Continue neurochecks every 4 hours and as needed. Maintain fall precautions Continue Samuels catheter management Continue Unna boot bilaterally to prevent foot drop PT/OT following Neurology consultation is appreciated Orthopedic surgery is following, recommend maintaining C collar #. Type II zvs-fgnmfug-qodplcqvl diabetes mellitus with hyperglycemia Hyperglycemia likely secondary to high-dose steroids being administered at this time. Will continue glycemic protocol with Humalog sliding scale. Continue Lantus to 50 units subcu daily as basal insulin Continue sliding scale insulin every 6 hours Continue premeal insulin 10 units #. Bilateral lower extremity edema Bilateral lower extremity Doppler ultrasound negative for DVT #. Hyponatremia Na 133, likely secondary to lasix Monitor BMP #. Metabolic alkalosis, resolved Chronic: #. Hypertension #. Hyperlipidemia #. Obstructive sleep apnea #. BPH Continue lisinopril 40 mg p.o. daily, atorvastatin 40 mg p.o at bedtime, tamsulosin 0.4 mg p.o. daily, continue CPAP nightly and while napping. F: None E: Replete as required N: Enteral tube feeding A: Bed bound DVT prophylaxis: Lovenox 40 mg subcu daily Code status: Full code Anticipated discharge place: Pending clinical course Anticipated discharge time: Pending clinical course Dictation was produced using [employer] dictation software. please excuse any grammatical, word or spelling errors. Urban Hughes MD PGY-1 IM I have seen and evaluated the patient today. Discussed with the resident and agree with the residents finding and plan as documented in the resident's note. Changes highlighted in blue font. Objective - Vital Signs Vital signs: Vital Signs Temp 98.0 F 04/03/25 04:00 Pulse 82 04/03/25 06:00 Resp 14 04/03/25 06:00 BP 145/83 04/03/25 06:00 Pulse Ox 95 04/03/25 06:00 FiO2 50 04/03/25 04:10 Intake & Output 04/02/25 04/02/25 04/03/25 06:59 18:59 06:59 Intake Total 1200.708 926.267 620 Output Total 1650 1285 1030 Balance -449.292 -358.733 -410 Weight 114.8 kg 112 kg Intake: IV 360 620 620 Fluconazole in NaCl,Iso- 200 200 Osm 400 mg In Saline 1 200ml.bag @ 100 mls/hr IVPB DAILY@1800 [facility] Rx#: [id number] Meropenem 1 gm In Sodium 100 200 200 Chloride 0.9% 100 ml @ 33 .3 mls/hr IVPB Q8HR [facility] Rx#:[id number] kvo 260 220 220 Intake, IV Titration 334.708 122.267 Amount Midazolam HCl 50 mg In 22.267 Sodium Chloride 0.9% 40 ml @ 1 MG/HR 1 mls/hr IV .Q24H [facility] Rx#:[id number] propofoL 1,000 mg In 334.708 100.000 Empty Bag 1 bag @ 15 MCG/ KG/MIN 10.476 mls/hr IV . Q9H33M [facility] Rx#:[id number] Oral 90 Tube Feeding 416 64 Other 90 30 Output: Urine 1650 1285 1030 Other: Voiding Method Indwelling Catheter Indwelling Catheter Indwelling Catheter # Bowel Movements 1 1 1 - Labs CBC & Chem 7: 04/03/25 03:18 04/03/25 03:18 Labs: Abnormal Lab Results - Last 24 Hours (Table) 04/02/25 04/02/25 04/02/25 Range/Units 10:01 11:57 17:43 WBC (4.50-10.00) 10*3/uL RBC (4.40-5.60) 10*6/uL Hgb (13.0-17.0) g/dL Hct (39.6-50.0) % Plt Count (140-440) 10*3/uL ABG pH 7.51 H (7.35-7.45) ABG pO2 77 L (83-108) mmHg ABG HCO3 32 H (21-25) mmol/L ABG Total CO2 33 H (19-24) mmol/L Hemoglobin 12.1 L (13.0-17.5) gm/dL Sodium (137-145) mmol/L BUN (9-20) mg/dL Creatinine (0.66-1.25) mg/dL Glucose (74-99) mg/dL POC Glucose (mg/dL) 247 H 203 H (70-110) mg/dL Calcium (8.4-10.2) mg/dL 04/02/25 04/03/25 04/03/25 Range/Units 23:42 03:18 03:18 WBC 20.26 H (4.50-10.00) 10*3/uL RBC 4.00 L (4.40-5.60) 10*6/uL Hgb 11.8 L (13.0-17.0) g/dL Hct 36.5 L (39.6-50.0) % Plt Count 123 L (140-440) 10*3/uL ABG pH (7.35-7.45) ABG pO2 (83-108) mmHg ABG HCO3 (21-25) mmol/L ABG Total CO2 (19-24) mmol/L Hemoglobin (13.0-17.5) gm/dL Sodium 133 L (137-145) mmol/L BUN 29 H (9-20) mg/dL Creatinine 0.43 L (0.66-1.25) mg/dL Glucose 176 H (74-99) mg/dL POC Glucose (mg/dL) 162 H (70-110) mg/dL Calcium 8.3 L (8.4-10.2) mg/dL 04/03/25 Range/Units 05:27 WBC (4.50-10.00) 10*3/uL RBC (4.40-5.60) 10*6/uL Hgb (13.0-17.0) g/dL Hct (39.6-50.0) % Plt Count (140-440) 10*3/uL ABG pH (7.35-7.45) ABG pO2 (83-108) mmHg ABG HCO3 (21-25) mmol/L ABG Total CO2 (19-24) mmol/L Hemoglobin (13.0-17.5) gm/dL Sodium (137-145) mmol/L BUN (9-20) mg/dL Creatinine (0.66-1.25) mg/dL Glucose (74-99) mg/dL POC Glucose (mg/dL) 160 H (70-110) mg/dL Calcium (8.4-10.2) mg/dL
[2025-04-03 11:37] LABS: Glucose,Whole Blood 171 mg/dL (70-110)
--- NOTE | 2025-04-03 11:45 | P.PN ---
Subjective Progress Note Date: 04/03/25 Principal diagnosis: Leg weakness. This is a 64-year-old male patient was undergone a C 7 T1 discectomy, done posteriorly with wide laminectomy and foraminotomy and partial facetectomy. The patient was experiencing cervical myelopathy with severe bilateral lower extremity weakness and T8 paresthesia. The patient has previous history of cervical spine fusion C2-C7. The patient was found to have a large herniated disc C7-T1 with severe spinal cord stenosis and based on that the patient was taken to the operating room and underwent a C7-T1 discectomy on 03/21/2025. The patient has become progressively more hypoxic. Currently he is on Airvo at 60 L and FiO2 of 90%. His current pulse ox is in order of 90 to 93%. Slightly tachycardic. Blood pressure is also soft at 89/62. Based on worsening hypoxemia, CT of the chest was done and the patient was found to have signi ficant volume loss in the left lung compared to the right. There is marked volume loss and atelectasis in addition to an area of consolidation in the left upper lobe and elevation of the left hemidiaphragm in addition to significant gastric distention. The patient has dilated air in the stomach and colon. Blood work shows a white cell count of 14, hemoglobin 12.4 and a platelet count of 175. Sodium levels at 137, bicarb is at 23, potassium level is at 4.3 with a chloride of 102. BUN 23 with a creatinine of 0.9. The patient is resting comfortably in bed. He is wearing a hard neck collar. He is reporting some mild shortness of breath even at rest. He is tolerating the Airvo. He is currently on IV Solu-Medrol 100 mg every 6 hours post neck surgery. He is also on IV fluids with l normal saline at rate of 75 cc an hour. Comorbidities include hypertension, hyperlipidemia, diabetes mellitus type 2, obstructive sleep apnea maintained on CPAP therapy on outpatient basis On today's evaluation of 03/23/25, patient is still on the BiPAP pressure of 14 over 6 cm of water and FiO2 has been weaned down to 65%. The patient's abdomen seems to be less distended. He had 2 bowel movements and the patient is also passing flatus. Fluid balance +223 cc over the past 24 hours and the patient remains on normal saline at a rate of 75 cc an hour. Neurologically, unchanged and the patient has absent motor function lower extremities bilaterally. He is on broad-spectrum antibiotics and the patient is currently on Zosyn vancomycin combination. Follow-up chest x-ray shows some interval improvement in aeration in the left lung base. Lung volumes in the left remain small and there is some ongoing atelectatic change at left lower lobe. The patient's white cell count is 11, hemoglobin 11.3 and a platelet count of 180. Electrolytes are all within normal limits. BUN is 40 with a creatinine of 1.05. The patient is able to communicate. He is alert and awake. Denies having any specific complaints. Still wearing a hard neck collar. 03/24/2025, the patient is laying flat in bed and is currently on a BiPAP at a pressure of 14/6 with an FiO2 of 75% overnight and Airvo during the day. He remains on normal saline at rate of 75 cc an hour. Chest x-ray still showing left lower lobe consolidation. Abdomen is soft. He had 3 bowel movements. He is on Lantus insulin. The patient's mentation is awake and alert. Nevertheless, he continues to have profound weakness in the lower extremity and he remains paraplegic. Remains on IV Solu-Medrol. Blood sugars are elevated and he remains on Lantus 15 units daily and NovoLog sliding scale coverage. The white cell count 11.9, hemoglobin 11.3 and a platelet count of 201. BUN 34 with a creatinine of 0.8. Sodium levels at 136. Blood sugars up to 82. He is postop day #4 following an open decompression and fusion of C7-T1 surgery was done due to a large disc herniation and spinal cord injury. He is also status post fusion and extension from prior fusion C2-7 and near extension fusion down to T3. He is unable to move his legs still. Samuels catheter still in place. Using incentive spirometer. Afebrile. 03/25/2025, the patient is being seen for a follow-up. Repeat chest x-ray was done and shows ongoing volume loss and atelectasis in the left lung base. I also performed an ultrasound of the chest and there is no sizable pleural effusion for thoracentesis. Findings are more consistent with consolidation/atelectasis. Remains on Airvo at 60 L and FiO2 of 90%. Incentive spirometer. Overnight, using BiPAP pressure of 14/6 and use of water with an FiO2 of 80%. Remains in normal Saint rate of 75 cc an hour. Fluid balance is +550 cc over the past 24 hours. No respiratory difficulties. The white cell count of 12. Hemoglobin is 10.9. Platelet count is 210. BUN is 32 with a creatinine of 0.8. Sodium levels at 138 and potassium levels of 4.2. Remains on Zosyn and vancomycin. Neurologically unchanged and the patient continues to be paraplegic. Patient was seen today on 03/26/2025, patient remains in the ICU, he is on Airvo at 90% and 60 L flow, patient is generally weak, alert and appropriate, IV fluid at 75 cc/h, continues to have weakness from the waist down. Patient had cervical spine surgery postoperative day #6. Chest x-ray showed complete opacification of the left lung consistent with mucous plugging involving the left mainstem bronchus. Hence I discussed this with the patient today, patient needs to be bronchoscope, needs to have extraction of mucous plugs. Considering the patient is marginal at best, will need to be intubated and placed on mechanical ventilation for the procedure. Based on the findings we will decide whether the patient needs to remain on mechanical ventilation after bronchoscopy or not. Most likely he will remain ventilated after the bronchoscopy. Patient has a bit of leukocytosis with WBC of 13.3 hemoglobin 11.3 electrolytes are normal renal profile is normal. Nasal screen has been positive for MSSA not MRSA. Patient was seen today on 03/27/2025, patient remains intubated and mechanically ventilated, kept him on mechanical ventilation after his bronchoscopy yesterday and suctioning of mucous plugs from the left mainstem bronchus and left lung. Left lung continues to show good inflation, minimal left lower lobe atelectasis, patient is on assist-control rate of 18 tidal volume 550 FiO2 50% and PEEP of 8 ABG today showed a pO2 of 84 pCO2 37 pH of 7.41. Patient is also on propofol at 50 mg/kg/min IV fluids at 75 cc/h on antibiotics in the form of Zosyn and vancomycin, antibiotics to be changed once we have the final culture from the BA L. I plan to wean the patient today, possibly consider placing him on BiPAP 12/6/50% assuming he tolerates weaning and he passes his weaning parameters. Patient is awake, follows instructions, although he is still on propofol. WBC count is 14.48 hemoglobin 10.8 electrolytes are normal, BUN is 29 creatinine 0.7 Patient was seen today on 03/28/2025, patient was extubated yesterday, had to be placed on BiPAP to avoid atelectasis again of the left lung and mucous plugging patient has very poor cough, cannot clear his secretions, and his chest x-ray today is beginning to show early atelectasis in the left lower lobe, questionable effusion but ultrasound did not show much fluid. I believe it is all a picture of atelectasis involving the left lower lobe and I am afraid that the patient may have reopacification of the left lung in the next 24 hours. In the meantime I will continue patient on BiPAP, will recommend chest PT, N- acetylcysteine and albuterol, Mucinex, and hopefully we can avoid another bronchoscopy. Otherwise if the patient opacifies left lung again, may have to be bronchoscope again. And if we do I will keep him longer on mechanical ventilation. Patient remains on antibiotics/broad-spectrum he is WBC count is 19.36 hemoglobin is 10.7 electrolytes are normal renal profile is normal. Seen today on 03/29/2025, patient remains in the ICU, chest x-ray is showing worsening and he is again having near complete opacification of the left lung. Apparently the patient is developing mucous plugging again involving the left mainstem bronchus and the cultures from his last BAL came back showing Serratia marcescens. Considering the patient's critical illness, I am transitioning Zosyn to Merrem for better coverage of Serratia. Sensitivity is still pending on the organism. But empirically Merrem would be a better choice for Serratia marcescens for the time being. Patient still on BiPAP at 14/6/60%, and considering his abnormal chest x-ray, I am recommending bronchoscopy again and this has to be again done with the patient intubated as his O2 saturation is marginal even on 60% BiPAP. Patient looks comfortable, he is not in distress. Continues to have leukocytosis with WC of 23.23 hemoglobin 11.2 basic metabolic profile is normal renal profile is normal continues to have cervical collar in place. Patient was seen today on 03/30/2025, remains in the ICU, intubated and mechanically ventilated, patient is on assist-control rate of 18 tidal volume 550 FiO2 50% PEEP of 10 ABG showed a pO2 of 122 pCO2 37 pH of 7.47 hence FiO2 was cut down to 40%. Remains on Merrem remains on propofol at 40 mcg/kg/min and on Versed 1 mg/h. Patient is sedated, does not seem to be in any distress, chest x-ray is showing slight worsening in the left lower lobe, but not severe enough to justify bronchoscopy again. However considering this I am not planning to extubate the patient today as if extubated he will most likely end up requiring bronchoscopy again. Patient had positive cultures for Serratia marcescens, and is now on Merrem. Labs today were reviewed patient has leukocytosis with WBC count of 19.7 hemoglobin 11.3, basic metabolic profile is normal renal profile is normal patient is on nutritional support/enteral feeding. Chest x-ray today is a bit worrisome hence no plans to wean and extubate today. Patient was seen today on 03/31/2025, remains in the ICU, intubated and mechanically ventilated. Patient is on assist-control rate of 18 tidal volume 5 50 FiO2 40% and PEEP of 10 ABG on 45% showed a pO2 of 86 pCO2 42 pH of 7.44. Chest x-ray is showing left lower lobe atelectasis/airspace disease involving the left lower lobe hence I was concerned about recollapsing of the left lung, bronchoscopy was performed, and the secretions noted in the left lower lobe with were very minimal. Did not require lavage, there was not enough secretions to do lavage. Hence the patient was kept intubated mechanically ventilated, he is now on propofol at 45 mcg/kg/min is on Versed 1 mg/h and is receiving vital HP at 32 cc/h. Remains on fluconazole, remains on Merrem. Continues to have a bit of leukocytosis with WBC of 19.12 hemoglobin 11.7 electrolytes are normal, renal profile is normal. Patient was seen today on 04/01/2025, remains in the ICU, remains intubated and mechanically ventilated. Patient is sedated with propofol at 45 mcg/kg/min and Versed 1 mg/h. Patient is calm he is on assist-control mode of mechanical ventilation rate 18 tidal volume 550 FiO2 40% PEEP that ABG showed a PO2 of 91 pCO2 37 pH of 7.52 chest x-ray showed improvement in his left lower lobe atelectasis but he does have bilateral pleural effusions has I recommended a d ose of Lasix 40 mg IV push x 1 was given. Considering his ABG is better considering his chest x-ray is showing improvement, I recommended a trial of weaning. However on pressure support and CPAP, his ABG was marginal with a pO2 of 61 pCO2 40 pH of 7.51, hence I felt the patient is not ready to be weaned especially with relatively low pO2 of 61. And I felt the patient should be back on sedation and back on assist-control mode of mechanical ventilation. In the meantime patient remains on nutritional support, remains in GI prophylaxis: And again he received a dose of Lasix earlier today for what seems to be bilateral pleural effusions. Continues to have leukocytosis with WBC count of 19.4 hemoglobin 11.5 electrolytes are normal, renal profile is normal blood sugar is 245 Patient was seen today on 04/02/2025, remains in the ICU, intubated and mechanically ventilated. Remains on the same ventilator settings, is on assist- control mode of mechanical ventilation, ABG today showed a pO2 of 103 pCO2 34 pH of 7.57 chest x-ray is showing improvement in his left-sided opacity much better today compared to the last few days, WBC count remains elevated at 21.02 hemoglobin is 11.7 electrolytes are normal, renal profile is normal. Blood sugar is 286. Considering the improvement noted on the chest x-ray, patient will be given another weaning trial today, and I will discontinue his sedation, placed patient on pressure support of 12 and CPAP, his PEEP is down to 6. Patient will be weaned and if tolerated we could proceed to extubation. Otherwise may keep patient mechanically ventilated again for another day. In the meantime he is receiving Merrem for his Serratia marcescens pneumonia. Progress note dated April 03, 2025. This is a 64-year-old male who was admitted back on March 18, with leg weakness, and cervical myelopathy. On day 13, the patient had a cervical decompression an d fusion, from C7-T1. The patient has been in the intensive care unit, pretty much the entire time, with intubation, and extubation x 2. The patient is also had bronchoscopy x 2. He continues on meropenem and Diflucan. He is on BiPAP, with settings of 14/8, and 80%. He is getting saline at KVO. Current laboratory data includes a white count of 20.3, hemoglobin 11.8, hematocrit 36.5, and a platelet count of 123,000. Sodium 133, potassium 4.2, chlorides 103, CO2 28, BUN 29, creatinine 0.43. Glucose is 171. Calcium is 8.3. Bronchoscopy and washings from March 26 were positive for Serratia marcescens. Chest x-ray, shows left basilar opacity consistent with atelectasis, and/or effusion. The chest x-ray in my opinion is improved compared to the prior 1. Objective - Vital Signs Vital signs: Vital Signs Temp 97.8 F 04/03/25 08:00 Pulse 65 04/03/25 11:00 Resp 16 04/03/25 11:00 BP 146/84 04/03/25 11:00 Pulse Ox 94 L 04/03/25 11:15 FiO2 60 04/03/25 11:15 Intake & Output 04/02/25 04/03/25 04/03/25 18:59 06:59 18:59 Intake Total 926.267 640 159.9 Output Total 1285 1105 355 Balance -358.733 -465 -195.1 Weight 112 kg 112 kg Intake: IV 620 640 159.9 Fluconazole in NaCl,Iso- 200 200 Osm 400 mg In Saline 1 200ml.bag @ 100 mls/hr IVPB DAILY@1800 JUAN LUIS Rx#: [id number] Meropenem 1 gm In Sodium 200 200 99.9 Chloride 0.9% 100 ml @ 33 .3 mls/hr IVPB Q8HR JUAN LUIS Rx#:[id number] kvo 220 240 60 Intake, IV Titration 122.267 Amount Midazolam HCl 50 mg In 22.267 Sodium Chloride 0.9% 40 ml @ 1 MG/HR 1 mls/hr IV .Q24H JUAN LUIS Rx#:[id number] propofoL 1,000 mg In 100.000 Empty Bag 1 bag @ 15 MCG/ KG/MIN 10.476 mls/hr IV . [id number] JUAN LUIS Rx#:[id number] Oral 90 Tube Feeding 64 Other 30 Output: Urine 1285 1105 355 Other: Voiding Method Indwelling Catheter Indwelling Catheter Indwelling Catheter # Bowel Movements 1 1 - Exam No acute distress, oriented 3. BiPAP mask in place. HEENT examination is grossly unremarkable. Neck supple. Full range of motion. No adenopathy thyromegaly or neck vein distention. Cardiovascular examination reveals regular rhythm rate. S1-S2 normal. No S3 or S4. No discernible murmur noted. Heart sounds are distant. Lungs reveal mostly clear breath sounds. Scattered rhonchi. No wheezes or crackles. Breath sounds equal bilaterally. Abdomen soft bowel sounds are heard. No masses or tenderness. Extremities are intact. No cyanosis clubbing or edema. Skin is without rash or lesion. Neurologic examination is brief but nonfocal. - Labs CBC & Chem 7: 04/03/25 03:18 04/03/25 03:18 Labs: Abnormal Lab Results - Last 24 Hours (Table) 04/02/25 04/02/25 04/02/25 Range/Units 11:57 17:43 23:42 WBC (4.50-10.00) 10*3/uL RBC (4.40-5.60) 10*6/uL Hgb (13.0-17.0) g/dL Hct (39.6-50.0) % Plt Count (140-440) 10*3/uL Sodium (137-145) mmol/L BUN (9-20) mg/dL Creatinine (0.66-1.25) mg/dL Glucose (74-99) mg/dL POC Glucose (mg/dL) 247 H 203 H 162 H (70-110) mg/dL Calcium (8.4-10.2) mg/dL 04/03/25 04/03/25 04/03/25 Range/Units 03:18 03:18 05:27 WBC 20.26 H (4.50-10.00) 10*3/uL RBC 4.00 L (4.40-5.60) 10*6/uL Hgb 11.8 L (13.0-17.0) g/dL Hct 36.5 L (39.6-50.0) % Plt Count 123 L (140-440) 10*3/uL Sodium 133 L (137-145) mmol/L BUN 29 H (9-20) mg/dL Creatinine 0.43 L (0.66-1.25) mg/dL Glucose 176 H (74-99) mg/dL POC Glucose (mg/dL) 160 H (70-110) mg/dL Calcium 8.3 L (8.4-10.2) mg/dL Microbiology - Last 24 Hours (Table) 03/26/25 15:53 Fungal Culture - Preliminary Bronchoalviolar Lavage - Left Milagros albicans Assessment and Plan Assessment: Acute hypoxemic respiratory failure, secondary to recurrent left lung collapse, S/P bronchoscopy x 2. History of Serratia marcescens pneumonia. S/P bronchoscopy x 2. Severe spinal canal stenosis at C7-T1, S/P decompression/fusion, postop day #14. Obstructive sleep apnea syndrome, on CPAP. Type 2 diabetes mellitus. Hypotension secondary to sepsis, resolved. Hyperlipidemia. Bilateral lower extremity weakness, secondary to cervical disc disease. T8 paresthesia. History of severe L5-S1 neuroforaminal stenosis. Plan: Plan dated April 03, 2025. The patient remains in the intensive care unit, critically ill. The patient continues on BiPAP, with settings of 14/8, and 80%. The patient is also getting saline at KVO. The patient continues on meropenem and Diflucan. Labs, x-rays, medications are reviewed. The patient is postoperative day #14, status post cervical decompression and fusion, from C7-T1. Chest x-ray today looks a bit improved. The patient may be trialed on some high flow nasal cannula or Airvo. Additional recommendations and suggestions are forthcoming. We will get the patient a flutter valve. Prognosis is certainly guarded. Dictation was produced using [employer]ET[employer] software. Please excuse any grammatical, word or spelling errors. Time with Patient: Greater than 30
[2025-04-03] MEDS: methylPREDNISolone SOD SUCCI 40 MG/ML 1 ML VIAL IV SCH (15:54)
[2025-04-03 16:47] LABS: Glucose,Whole Blood 134 mg/dL (70-110)
[2025-04-03 23:09] LABS: Glucose,Whole Blood 140 mg/dL (70-110)
[2025-04-04 05:23] LABS: Glucose,Whole Blood 139 mg/dL (70-110)
[2025-04-04 05:57] LABS: HCT 36.0 % (39.6-50.0); HGB 11.8 g/dL (13.0-17.0); Immature Platelet Fraction 5.0 % (1.1-6.1); MCH 29.5 pg (27.0-32.0); MCHC 32.8 g/dL (32.0-37.0); MCV 90.0 fL (80.0-97.0); Platelet Count 119 10*3/uL (140-440); RBC 4.00 10*6/uL (4.40-5.60); RDW 14.0 % (11.5-14.5); WBC 17.14 10*3/uL (4.50-10.00)
[2025-04-04 06:15] LABS: African American GFR (CKD) >90 (>60 ml/min/1.73 sqM); Anion Gap 0 mmol/L; Blood Urea Nitrogen 29 mg/dL (9-20); Calcium 8.3 mg/dL (8.4-10.2); Carbon Dioxide 31 mmol/L (22-30); Chloride 102 mmol/L (98-107); Glucose 140 mg/dL (74-99); Non-African American GFR(CKD) >90 (>60 ml/min/1.73 sqM); Potassium 4.1 mmol/L (3.5-5.1); Sodium 133 mmol/L (137-145)
--- NOTE | 2025-04-04 07:17 | XR ---
EXAMINATION TYPE: XR chest 1V portable DATE OF EXAM: 04/04/2025 5:00 AM COMPARISON: 04/03/2025 CLINICAL INDICATION: Male, 64 years old with history of mechanical ventilation, TECHNIQUE: XR chest 1V portable views of the chest are obtained. FINDINGS: Demonstrated are scattered senescent parenchymal change. Left basilar opacity persists which may reflect atelectasis and/or effusion. The heart is stable. Hilar and mediastinal structures are within normal limits. Degenerative changes are seen of the dorsal spine. postoperative changes of the cervical spine. IMPRESSION: 1. Stable chest [facility], , 04/04/2025 7:15 AM
--- NOTE | 2025-04-04 10:01 | P.PN ---
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 Wheeler) approximately 2 months ago, migraine headaches, depression. Presented to the emergency department with a chief complaint of sudden onset numbness extending from periumbilical region downwards throughout groin and bilateral lower extremities followed by weakness of bilateral lower extremities. Patient states he was moving some plants at home when he had sudden onset of numbness around his lower abdomen circling around him like a belt that quickly radiated into his groin and into bilateral lower extremities accompanied by weakness of bilateral lower extremities which resulted in his legs giving out from beneath him causing him to fall to the ground. Patient de nied having any dizziness or lightheadedness, headache, neck or back pain, or experiencing any pain in his abdomen, groin, or lower extremities. He denies hitting his head during the fall and denies having any loss of consciousness. But reports due to the sudden onset numbness and weakness he was unable to stand back up and had to have his call EMS for transfer to the hospital. Upon arrival to our facility, patient underwent evaluation in the emergency department. Vital signs upon arrival show blood pressure 165/97, heart rate 88, respiratory rate 18, temp 98.8 F, and SpO2 of 97% on room air. CT lumbar spine CT abdomen and pelvis was also negative for acute intra-abdominal process completed showing no evidence for spinal fracture, no evidence for significant spinal canal stenosis revealing severe right L5-S1 neuroforaminal stenosis and moderate bilateral L4-L5 neuroforaminal stenosis, revealing a right middle lobe pulmonary nodule 8 mm, prostamegaly, colonic diverticulosis, and bilateral adrenal myolipoma's. Labs completed and reviewed. CBC unremarkable. BMP showing hyperglycemia with blood glucose of 146. Liver profile normal findings. Urinalysis positive for glucose and ketones but negative for infection. Patient was admitted under services with consultation to neurology and orthospine surgery. MRI lumbar spine was completed showing no definitive evidence of disc herniation or significant spinal canal stenosis revealing minimal disc degeneration with associated osteoarthritic changes. Patient underwent extensive cervical spinal surgery on the evening of 03/20/2025 through 03/21/2025. 04/02/25: Patient seen and examined at bedside today in the ICU. He was intubated but off sedation and weaning parameters were being obtained. No acute events overnight. He denies any acute complaints today. 04/03/25: Patient evaluated at bedside. He remains in the ICU. He was extubated yesterday. He did well overnight, but today morning his SpO2 dropped to 80s and his BIPAP was put on 100% FiO2 briefly. Currently at 14/8/80%. He is awake and responds with a thumbs up. 04/04/25: Patient seen and examined today at bedside. He remains in the ICU. No acute events overnight. Review of systems: Pertinent positives and negatives as discussed in HPI, a complete review of systems was performed and all other systems are negative. Vitals: Signs Reviewed, SpO2 93% with 60% FiO2 Physical examination: General: nontoxic, no distress, appears at stated age, currently on Airvo Derm: Warm, dry Head: Atraumatic, normocephalic, symmetric Eyes: EOMI, no lid lag, anicteric sclera Mouth: No lip lesion, mucus membranes moist Cardiovascular: S1S2 reg, no murmur Lungs: Bilateral rhonchi, more prominent on the left, no accessory muscle use Abdominal: Soft, nontender to palpation, no appreciable organomegaly Ext: No gross muscle atrophy, no edema, no contractures Neuro: Awake and alert Psych: Appropriate affect Data Reviewed Today: Labs: WBC 17.14, hemoglobin 11.8, sodium 133, bicarb 31, Glucose 140 Imaging: Chest Xray today is unchanged from yesterday. Assessment/Plan: Patient is a 64 year old male who presented with sudden onset numbness and weakness in bilateral lower extremities. He underwent extensive cervical decompression with discectomy and fusion. He was then intubated due to acute hypoxemic respiratory failure secondary to severe atelectasis and underlying pneumonia. Extubated on 04/02/25. Active: #. Acute hypoxemic respiratory failure secondary to severe atelectasis and mucous plugging status post bronchoscopy x 2 #. Suspected underlying pneumonia secondary to Serratia #. Leukocytosis, improving CT angio of chest shows markedly progressive left lung volume loss with marked atelectasis increasing suspicion for endobronchial obstruction/neoplasm and further evaluation may be indicated. Interval development of mild right lower lobe atelectasis. Bronchial washings culture showed positive for Serratia, nasal swab showed positive for Staph aureus, not MRSA Extubated on 04/02/25 Continue Airvo IV Solu-Medrol decreased to 40 mg every 8 hours, if clinically improving consider decreasing to BID in the next 1-2 days Continue DuoNebs 4 times daily and every 2 hours as needed Continue meropenem 1 g IV every 8 hours for 5 days(total 14 days), fluconazole 400 mg IVPB daily for 8 days(total 14 days) Continue with Mucomyst,DuoNebs 4 times daily, every 2 hours as needed Encourage incentive spirometry Monitor CBC #. Cervical myelopathy secondary to severe spinal canal stenosis involving C7-T1 #. Status post extensive cervical decompression with discectomy at C7-T1 and fusion with extension of fusion from C3-C7 with new extension down to T3 #. Severe right L5-S1 neuroforaminal stenosis #. Moderate bilateral L4-L5 neuroforaminal stenosis Orthopedic surgery following status post extensive cervical decompression with dissecting at C7-T1 and fusion with extension of fusion from C3-C7 with new extension down to T3 Solu-Medrol decreased to 40 mg IV every 8 hours Continue inpatient rehab Resume lisinopril, hydralazine as needed Continue neurochecks every 4 hours and as needed. Maintain fall precautions Continue Samuels catheter management Continue Unna boot bilaterally to prevent foot drop PT/OT following Neurology consultation is appreciated Orthopedic surgery is following, recommend maintaining C collar #. Type II zcr-jycowke-jzuquxkay diabetes mellitus Hyperglycemia likely secondary to high-dose steroids being administered at this time. Continue Lantus to 50 units subcu daily as basal insulin Continue sliding scale insulin Continue premeal insulin 10 units #. Bilateral lower extremity edema Bilateral lower extremity Doppler ultrasound negative for DVT #. Hyponatremia Na 133, likely secondary to lasix Monitor BMP Chronic: #. Hypertension #. Hyperlipidemia #. Obstructive sleep apnea #. BPH Continue lisinopril 40 mg p.o. daily, atorvastatin 40 mg p.o at bedtime, tamsulosin 0.4 mg p.o. daily, continue CPAP nightly and while napping. F: None E: Replete as required N: Enteral tube feeding A: Bed bound DVT prophylaxis: Lovenox 40 mg subcu daily Code status: Full code Anticipated discharge place: Pending clinical course Anticipated discharge time: Pending clinical course Dictation was produced using [employer] software. please excuse any grammatical, word or spelling errors. Urban Hughes MD PGY-1 IM I have seen and evaluated the patient today. Discussed with the resident and agree with the residents finding and plan as documented in the resident's note. Changes highlighted in blue font. Objective - Vital Signs Vital signs: Vital Signs Temp 97.8 F 04/04/25 04:00 Pulse 64 04/04/25 06:00 Resp 18 04/04/25 06:00 BP 123/67 04/04/25 06:00 Pulse Ox 93 L 04/04/25 06:00 FiO2 60 04/04/25 05:38 Intake & Output 04/03/25 04/03/25 04/04/25 06:59 18:59 06:59 Intake Total 640 319.9 410 Output Total 1105 785 875 Balance -465 -465.1 -465 Weight 112 kg 112 kg 111 kg Intake: IV 640 319.9 210 Fluconazole in NaCl,Iso- 200 Osm 400 mg In Saline 1 200ml.bag @ 100 mls/hr IVPB DAILY@1800 JUAN LUIS Rx#: [id number] Meropenem 1 gm In Sodium 200 199.9 100 Chloride 0.9% 100 ml @ 33 .3 mls/hr IVPB Q8HR JUAN LUIS Rx#:[id number] kvo 240 120 110 Intake, IV Titration 200 Amount Fluconazole in NaCl,Iso- 200 Osm 400 mg In Saline 1 200ml.bag @ 100 mls/hr IVPB DAILY@1800 JUAN LUIS Rx#: [id number] Output: Urine 1105 785 875 Other: Voiding Method Indwelling Catheter Indwelling Catheter Indwelling Catheter # Bowel Movements 1 1 - Labs CBC & Chem 7: 04/04/25 05:15 04/04/25 05:15 Labs: Abnormal Lab Results - Last 24 Hours (Table) 04/03/25 04/03/25 04/03/25 Range/Units 11:35 16:46 23:08 WBC (4.50-10.00) 10*3/uL RBC (4.40-5.60) 10*6/uL Hgb (13.0-17.0) g/dL Hct (39.6-50.0) % Plt Count (140-440) 10*3/uL Sodium (137-145) mmol/L Carbon Dioxide (22-30) mmol/L BUN (9-20) mg/dL Creatinine (0.66-1.25) mg/dL Glucose (74-99) mg/dL POC Glucose (mg/dL) 171 H 134 H 140 H (70-110) mg/dL Calcium (8.4-10.2) mg/dL 04/04/25 04/04/25 04/04/25 Range/Units 05:15 05:15 05:21 WBC 17.14 H (4.50-10.00) 10*3/uL RBC 4.00 L (4.40-5.60) 10*6/uL Hgb 11.8 L (13.0-17.0) g/dL Hct 36.0 L (39.6-50.0) % Plt Count 119 L (140-440) 10*3/uL Sodium 133 L (137-145) mmol/L Carbon Dioxide 31 H (22-30) mmol/L BUN 29 H (9-20) mg/dL Creatinine 0.47 L (0.66-1.25) mg/dL Glucose 140 H (74-99) mg/dL POC Glucose (mg/dL) 139 H (70-110) mg/dL Calcium 8.3 L (8.4-10.2) mg/dL Microbiology - Last 24 Hours (Table) 03/26/25 15:53 Fungal Culture - Preliminary Bronchoalviolar Lavage - Left Milagros albicans
--- NOTE | 2025-04-04 11:24 | P.PN ---
Subjective Progress Note Date: 04/04/25 Principal diagnosis: Leg weakness. This is a 64-year-old male patient was undergone a C 7 T1 discectomy, done posteriorly with wide laminectomy and foraminotomy and partial facetectomy. The patient was experiencing cervical myelopathy with severe bilateral lower extremity weakness and T8 paresthesia. The patient has previous history of cervical spine fusion C2-C7. The patient was found to have a large herniated disc C7-T1 with severe spinal cord stenosis and based on that the patient was taken to the operating room and underwent a C7-T1 discectomy on 03/21/2025. The patient has become progressively more hypoxic. Currently he is on Airvo at 60 L and FiO2 of 90%. His current pulse ox is in order of 90 to 93%. Slightly tachycardic. Blood pressure is also soft at 89/62. Based on worsening hypoxemia, CT of the chest was done and the patient was found to have signi ficant volume loss in the left lung compared to the right. There is marked volume loss and atelectasis in addition to an area of consolidation in the left upper lobe and elevation of the left hemidiaphragm in addition to significant gastric distention. The patient has dilated air in the stomach and colon. Blood work shows a white cell count of 14, hemoglobin 12.4 and a platelet count of 175. Sodium levels at 137, bicarb is at 23, potassium level is at 4.3 with a chloride of 102. BUN 23 with a creatinine of 0.9. The patient is resting comfortably in bed. He is wearing a hard neck collar. He is reporting some mild shortness of breath even at rest. He is tolerating the Airvo. He is currently on IV Solu-Medrol 100 mg every 6 hours post neck surgery. He is also on IV fluids with l normal saline at rate of 75 cc an hour. Comorbidities include hypertension, hyperlipidemia, diabetes mellitus type 2, obstructive sleep apnea maintained on CPAP therapy on outpatient basis On today's evaluation of 03/23/25, patient is still on the BiPAP pressure of 14 over 6 cm of water and FiO2 has been weaned down to 65%. The patient's abdomen seems to be less distended. He had 2 bowel movements and the patient is also passing flatus. Fluid balance +223 cc over the past 24 hours and the patient remains on normal saline at a rate of 75 cc an hour. Neurologically, unchanged and the patient has absent motor function lower extremities bilaterally. He is on broad-spectrum antibiotics and the patient is currently on Zosyn vancomycin combination. Follow-up chest x-ray shows some interval improvement in aeration in the left lung base. Lung volumes in the left remain small and there is some ongoing atelectatic change at left lower lobe. The patient's white cell count is 11, hemoglobin 11.3 and a platelet count of 180. Electrolytes are all within normal limits. BUN is 40 with a creatinine of 1.05. The patient is able to communicate. He is alert and awake. Denies having any specific complaints. Still wearing a hard neck collar. 03/24/2025, the patient is laying flat in bed and is currently on a BiPAP at a pressure of 14/6 with an FiO2 of 75% overnight and Airvo during the day. He remains on normal saline at rate of 75 cc an hour. Chest x-ray still showing left lower lobe consolidation. Abdomen is soft. He had 3 bowel movements. He is on Lantus insulin. The patient's mentation is awake and alert. Nevertheless, he continues to have profound weakness in the lower extremity and he remains paraplegic. Remains on IV Solu-Medrol. Blood sugars are elevated and he remains on Lantus 15 units daily and NovoLog sliding scale coverage. The white cell count 11.9, hemoglobin 11.3 and a platelet count of 201. BUN 34 with a creatinine of 0.8. Sodium levels at 136. Blood sugars up to 82. He is postop day #4 following an open decompression and fusion of C7-T1 surgery was done due to a large disc herniation and spinal cord injury. He is also status post fusion and extension from prior fusion C2-7 and near extension fusion down to T3. He is unable to move his legs still. Samuels catheter still in place. Using incentive spirometer. Afebrile. 03/25/2025, the patient is being seen for a follow-up. Repeat chest x-ray was done and shows ongoing volume loss and atelectasis in the left lung base. I also performed an ultrasound of the chest and there is no sizable pleural effusion for thoracentesis. Findings are more consistent with consolidation/atelectasis. Remains on Airvo at 60 L and FiO2 of 90%. Incentive spirometer. Overnight, using BiPAP pressure of 14/6 and use of water with an FiO2 of 80%. Remains in normal [place] rate of 75 cc an hour. Fluid balance is +550 cc over the past 24 hours. No respiratory difficulties. The white cell count of 12. Hemoglobin is 10.9. Platelet count is 210. BUN is 32 with a creatinine of 0.8. Sodium levels at 138 and potassium levels of 4.2. Remains on Zosyn and vancomycin. Neurologically unchanged and the patient continues to be paraplegic. Patient was seen today on 03/26/2025, patient remains in the ICU, he is on Airvo at 90% and 60 L flow, patient is generally weak, alert and appropriate, IV fluid at 75 cc/h, continues to have weakness from the waist down. Patient had cervical spine surgery postoperative day #6. Chest x-ray showed complete opacification of the left lung consistent with mucous plugging involving the left mainstem bronchus. Hence I discussed this with the patient today, patient needs to be bronchoscope, needs to have extraction of mucous plugs. Considering the patient is marginal at best, will need to be intubated and placed on mechanical ventilation for the procedure. Based on the findings we will decide whether the patient needs to remain on mechanical ventilation after bronchoscopy or not. Most likely he will remain ventilated after the bronchoscopy. Patient has a bit of leukocytosis with WBC of 13.3 hemoglobin 11.3 electrolytes are normal renal profile is normal. Nasal screen has been positive for MSSA not MRSA. Patient was seen today on 03/27/2025, patient remains intubated and mechanically ventilated, kept him on mechanical ventilation after his bronchoscopy yesterday and suctioning of mucous plugs from the left mainstem bronchus and left lung. Left lung continues to show good inflation, minimal left lower lobe atelectasis, patient is on assist-control rate of 18 tidal volume 550 FiO2 50% and PEEP of 8 ABG today showed a pO2 of 84 pCO2 37 pH of 7.41. Patient is also on propofol at 50 mg/kg/min IV fluids at 75 cc/h on antibiotics in the form of Zosyn and vancomycin, antibiotics to be changed once we have the final culture from the BA L. I plan to wean the patient today, possibly consider placing him on BiPAP 12/6/50% assuming he tolerates weaning and he passes his weaning parameters. Patient is awake, follows instructions, although he is still on propofol. WBC count is 14.48 hemoglobin 10.8 electrolytes are normal, BUN is 29 creatinine 0.7 Patient was seen today on 03/28/2025, patient was extubated yesterday, had to be placed on BiPAP to avoid atelectasis again of the left lung and mucous plugging patient has very poor cough, cannot clear his secretions, and his chest x-ray today is beginning to show early atelectasis in the left lower lobe, questionable effusion but ultrasound did not show much fluid. I believe it is all a picture of atelectasis involving the left lower lobe and I am afraid that the patient may have reopacification of the left lung in the next 24 hours. In the meantime I will continue patient on BiPAP, will recommend chest PT, N- acetylcysteine and albuterol, Mucinex, and hopefully we can avoid another bronchoscopy. Otherwise if the patient opacifies left lung again, may have to be bronchoscope again. And if we do I will keep him longer on mechanical ventilation. Patient remains on antibiotics/broad-spectrum he is WBC count is 19.36 hemoglobin is 10.7 electrolytes are normal renal profile is normal. Seen today on 03/29/2025, patient remains in the ICU, chest x-ray is showing worsening and he is again having near complete opacification of the left lung. Apparently the patient is developing mucous plugging again involving the left mainstem bronchus and the cultures from his last BAL came back showing Serratia marcescens. Considering the patient's critical illness, I am transitioning Zosyn to Merrem for better coverage of Serratia. Sensitivity is still pending on the organism. But empirically Merrem would be a better choice for Serratia marcescens for the time being. Patient still on BiPAP at 14/6/60%, and considering his abnormal chest x-ray, I am recommending bronchoscopy again and this has to be again done with the patient intubated as his O2 saturation is marginal even on 60% BiPAP. Patient looks comfortable, he is not in distress. Continues to have leukocytosis with WC of 23.23 hemoglobin 11.2 basic metabolic profile is normal renal profile is normal continues to have cervical collar in place. Patient was seen today on 03/30/2025, remains in the ICU, intubated and mechanically ventilated, patient is on assist-control rate of 18 tidal volume 550 FiO2 50% PEEP of 10 ABG showed a pO2 of 122 pCO2 37 pH of 7.47 hence FiO2 was cut down to 40%. Remains on Merrem remains on propofol at 40 mcg/kg/min and on Versed 1 mg/h. Patient is sedated, does not seem to be in any distress, chest x-ray is showing slight worsening in the left lower lobe, but not severe enough to justify bronchoscopy again. However considering this I am not planning to extubate the patient today as if extubated he will most likely end up requiring bronchoscopy again. Patient had positive cultures for Serratia marcescens, and is now on Merrem. Labs today were reviewed patient has leukocytosis with WBC count of 19.7 hemoglobin 11.3, basic metabolic profile is normal renal profile is normal patient is on nutritional support/enteral feeding. Chest x-ray today is a bit worrisome hence no plans to wean and extubate today. Patient was seen today on 03/31/2025, remains in the ICU, intubated and mechanically ventilated. Patient is on assist-control rate of 18 tidal volume 5 50 FiO2 40% and PEEP of 10 ABG on 45% showed a pO2 of 86 pCO2 42 pH of 7.44. Chest x-ray is showing left lower lobe atelectasis/airspace disease involving the left lower lobe hence I was concerned about recollapsing of the left lung, bronchoscopy was performed, and the secretions noted in the left lower lobe with were very minimal. Did not require lavage, there was not enough secretions to do lavage. Hence the patient was kept intubated mechanically ventilated, he is now on propofol at 45 mcg/kg/min is on Versed 1 mg/h and is receiving vital HP at 32 cc/h. Remains on fluconazole, remains on Merrem. Continues to have a bit of leukocytosis with WBC of 19.12 hemoglobin 11.7 electrolytes are normal, renal profile is normal. Patient was seen today on 04/01/2025, remains in the ICU, remains intubated and mechanically ventilated. Patient is sedated with propofol at 45 mcg/kg/min and Versed 1 mg/h. Patient is calm he is on assist-control mode of mechanical ventilation rate 18 tidal volume 550 FiO2 40% PEEP that ABG showed a PO2 of 91 pCO2 37 pH of 7.52 chest x-ray showed improvement in his left lower lobe atelectasis but he does have bilateral pleural effusions has I recommended a d ose of Lasix 40 mg IV push x 1 was given. Considering his ABG is better considering his chest x-ray is showing improvement, I recommended a trial of weaning. However on pressure support and CPAP, his ABG was marginal with a pO2 of 61 pCO2 40 pH of 7.51, hence I felt the patient is not ready to be weaned especially with relatively low pO2 of 61. And I felt the patient should be back on sedation and back on assist-control mode of mechanical ventilation. In the meantime patient remains on nutritional support, remains in GI prophylaxis: And again he received a dose of Lasix earlier today for what seems to be bilateral pleural effusions. Continues to have leukocytosis with WBC count of 19.4 hemoglobin 11.5 electrolytes are normal, renal profile is normal blood sugar is 245 Patient was seen today on 04/02/2025, remains in the ICU, intubated and mechanically ventilated. Remains on the same ventilator settings, is on assist- control mode of mechanical ventilation, ABG today showed a pO2 of 103 pCO2 34 pH of 7.57 chest x-ray is showing improvement in his left-sided opacity much better today compared to the last few days, WBC count remains elevated at 21.02 hemoglobin is 11.7 electrolytes are normal, renal profile is normal. Blood sugar is 286. Considering the improvement noted on the chest x-ray, patient will be given another weaning trial today, and I will discontinue his sedation, placed patient on pressure support of 12 and CPAP, his PEEP is down to 6. Patient will be weaned and if tolerated we could proceed to extubation. Otherwise may keep patient mechanically ventilated again for another day. In the meantime he is receiving Merrem for his Serratia marcescens pneumonia. Progress note dated April 03, 2025. This is a 64-year-old male who was admitted back on March 18, with leg weakness, and cervical myelopathy. On day 13, the patient had a cervical decompression an d fusion, from C7-T1. The patient has been in the intensive care unit, pretty much the entire time, with intubation, and extubation x 2. The patient is also had bronchoscopy x 2. He continues on meropenem and Diflucan. He is on BiPAP, with settings of 14/8, and 80%. He is getting saline at KVO. Current laboratory data includes a white count of 20.3, hemoglobin 11.8, hematocrit 36.5, and a platelet count of 123,000. Sodium 133, potassium 4.2, chlorides 103, CO2 28, BUN 29, creatinine 0.43. Glucose is 171. Calcium is 8.3. Bronchoscopy and washings from March 26 were positive for Serratia marcescens. Chest x-ray, shows left basilar opacity consistent with atelectasis, and/or effusion. The chest x-ray in my opinion is improved compared to the prior 1. Progress note dated April 04, 2025. 64-year-old male admitted back on March 18 with leg weakness, and cervical myelopathy. On March 20, the patient had a cervical decompression and fusion, from C7-T1. The patient has been in the intensive care unit, the entire time, with intubation and extubation x 2. The patient also had bronchoscopy, with BAL x 2. Currently, the patient is seen today in room 252. The patient is currently on Airvo, 60 L/min with an FiO2 of 60%. He is getting saline to KVO. At this point, the meropenem can be discontinued. White count 17.1, hemoglobin 11.8, hematocrit 36, platelet count 119,000. Sodium 133, potassium 4.1, chlorides 102, CO2 31, BUN 29, creatinine 0.47. Glucose is 140. Calcium is 8.3 . Bronchoscopy, from March 26, was positive for Serratia marcescens. Chest x-ray is stable, and is largely unchanged. Objective - Vital Signs Vital signs: Vital Signs Temp 98.2 F 04/04/25 08:00 Pulse 68 04/04/25 11:04 Resp 19 04/04/25 09:00 BP 111/62 04/04/25 09:00 Pulse Ox 90 L 04/04/25 09:00 FiO2 62 04/04/25 10:50 Intake & Output 04/03/25 04/04/25 04/04/25 18:59 06:59 18:59 Intake Total 319.9 420 253.3 Output Total 785 955 260 Balance -465.1 -535 -6.7 Weight 112 kg 111 kg Intake: IV 319.9 220 53.3 Meropenem 1 gm In Sodium 199.9 100 33.3 Chloride 0.9% 100 ml @ 33 .3 mls/hr IVPB Q8HR JUAN LUIS Rx#:[id number] kvo 120 120 20 Intake, IV Titration 200 Amount Fluconazole in NaCl,Iso- 200 Osm 400 mg In Saline 1 200ml.bag @ 100 mls/hr IVPB DAILY@1800 JUAN LUIS Rx#: [id number] Oral 200 Output: Urine 785 955 260 Other: Voiding Method Indwelling Catheter Indwelling Catheter # Bowel Movements 1 1 - Exam No acute distress, oriented 3. The patient is currently on Airvo. HEENT examination is grossly unremarkable. Neck supple. Full range of motion. No adenopathy thyromegaly or neck vein distention. Cardiovascular examination reveals regular rhythm rate. S1-S2 normal. No S3 or S4. No discernible murmur noted. Heart sounds are distant. Lungs reveal mostly clear breath sounds. Scattered rhonchi. No wheezes or crackles. Breath sounds equal bilaterally. Abdomen soft bowel sounds are heard. No masses or tenderness. Extremities are intact. No cyanosis clubbing or edema. Skin is without rash or lesion. Neurologic examination is brief but nonfocal. - Labs CBC & Chem 7: 04/04/25 05:15 04/04/25 05:15 Labs: Abnormal Lab Results - Last 24 Hours (Table) 04/03/25 04/03/25 04/03/25 Range/Units 11:35 16:46 23:08 WBC (4.50-10.00) 10*3/uL RBC (4.40-5.60) 10*6/uL Hgb (13.0-17.0) g/dL Hct (39.6-50.0) % Plt Count (140-440) 10*3/uL Sodium (137-145) mmol/L Carbon Dioxide (22-30) mmol/L BUN (9-20) mg/dL Creatinine (0.66-1.25) mg/dL Glucose (74-99) mg/dL POC Glucose (mg/dL) 171 H 134 H 140 H (70-110) mg/dL Calcium (8.4-10.2) mg/dL 04/04/25 04/04/25 04/04/25 Range/Units 05:15 05:15 05:21 WBC 17.14 H (4.50-10.00) 10*3/uL RBC 4.00 L (4.40-5.60) 10*6/uL Hgb 11.8 L (13.0-17.0) g/dL Hct 36.0 L (39.6-50.0) % Plt Count 119 L (140-440) 10*3/uL Sodium 133 L (137-145) mmol/L Carbon Dioxide 31 H (22-30) mmol/L BUN 29 H (9-20) mg/dL Creatinine 0.47 L (0.66-1.25) mg/dL Glucose 140 H (74-99) mg/dL POC Glucose (mg/dL) 139 H (70-110) mg/dL Calcium 8.3 L (8.4-10.2) mg/dL Microbiology - Last 24 Hours (Table) 03/26/25 15:53 Fungal Culture - Preliminary Bronchoalviolar Lavage - Left Milagros albicans Assessment and Plan Assessment: Acute hypoxemic respiratory failure, secondary to recurrent left lung collapse, S/P bronchoscopy x 2. History of Serratia marcescens pneumonia. S/P bronchoscopy x 2. Severe spinal canal stenosis at C7-T1, S/P decompression/fusion, postop day #14. Obstructive sleep apnea syndrome, on CPAP. Type 2 diabetes mellitus. Hypotension secondary to sepsis, resolved. Hyperlipidemia. Bilateral lower extremity weakness, secondary to cervical disc disease. T8 paresthesia. History of severe L5-S1 neuroforaminal stenosis. Plan: Plan dated April 03, 2025. The patient remains in the intensive care unit, critically ill. The patient continues on BiPAP, with settings of 14/8, and 80%. The patient is also getting saline at KVO. The patient continues on meropenem and Diflucan. Labs, x-rays, medications are reviewed. The patient is postoperative day #14, status post cervical decompression and fusion, from C7-T1. Chest x-ray today looks a bit improved. The patient may be trialed on some high flow nasal cannula or Airvo. Additional recommendations and suggestions are forthcoming. We will get the patient a flutter valve. Prognosis is certainly guarded. Dictation was produced using [employer] software. Please excuse any grammatical, word or spelling errors. Plan dated April 04, 2025. The patient is seen today in room 252. The patient remains critically ill. He currently is on Airvo, 60 L/min with an FiO2 of 60%. Saturations are in the low 90s. The patient's meropenem can be discontinued. The patient continues on saline at KVO. We recommend deep breathing, coughing, clearing of secretions, use of the incentive spirometer, and the flutter valve. We will continue to follow the patient, make recommendations where appropriate. The patient's chest x-ray is stable, or slightly improved. Prognosis is guarded. The patient is not yet ready to leave the intensive care unit. Dictation was produced using [employer] dictation software. Please excuse any grammatical, word or spelling errors. Time with Patient: Greater than 30
[2025-04-04 11:56] LABS: Glucose,Whole Blood 128 mg/dL (70-110)
--- NOTE | 2025-04-04 14:36 | P.PN ---
Progress Note - Text Progress Note Date: 04/04/25 Orthopedic spine: History of present illness: Patient is a very pleasant 64-year-old male who is seen examined at bedside in the ICU for follow-up evaluation of the cervical spine. He is status post posterior cervical decompression discectomy at C7-T1 with extension of fusion from C7 down to T3. He has not had any change from an orthopedic spine standpoint as compared to yesterday. He continues to keep his hard cervical collar intact. He is not experiencing any cervical pain. His jarad remain intact. He has good range of motion of his bilateral upper extremities except for his shoulders bilaterally. He is able to make a fist but is weak with his training associate. He is awake and alert. He is able to answer questions appropriately. He continues have significant difficulty with this bilateral lower extremities. He has some improved numbness around his abdomen towards the groin. Currently he does not have any sensation in his bilateral lower extremities and has no motor function in his lower extremities. His lower extremity symptoms have not improved. He currently has compression stockings and boots intact. He continues to have difficulty from a respiratory standpoint but has had some improvement. He has been extubated over the past 2 days. There was improvement on his chest x-ray from today. Nursing states he may plan for transfer out of the ICU over the next 1 to 2 days. He continues to be seen exam by multiple medical providers including pulmonology and medicine. Physical Exam Posterior cervical Fusion: Status post surgical day number #15 Patient is awake, alert, and oriented 3; patient is answering questions appropriately BiPAP intact [employer] strength, thumb strength, interosseous strength, biceps strength, and triceps strength positive sustained bilaterally He is able to shrug his shoulders. Weakness with training associate bilaterally Hard cervical collar intact [place] intact at the posterior cervical spine Pneumatic boots intact bilateral lower extremities Compression stockings intact bilaterally Samuels catheter intact Assessment: Spinal cord injury with paralysis at T8 Postoperative day #15: Status post posterior cervical decompression discectomy at C7-T1 with extension of fusion from C7-T3 Bilateral lower extremity paralysis Bilateral lower extremity loss of sensation Acute hypoxic respiratory failure Left-sided atelectasis Obstructive sleep apnea syndrome on CPAP normally Type 2 diabetes Hypotension could be related to sepsis could also be neurogenic post spinal surgery Dyslipidemia Plan: 1. Patient continues to remain in the ICU. He is awake, alert, and oriented and answering questions appropriately. He has been closely manage from pulmonary standpoint. He has been extubated over the past 2 days. He has had improvement on chest x-ray imaging. 2. Patient must keep his hard cervical collar intact at all times. [place] remain intact. We will plan to remove the jarad tomorrow, 04/05/2025, at the bedside. 3. Patient continues to have flaccid paralysis in his bilateral lower extremities. He has had some increase in sensation around his abdomen towards his groin. They should try to change his positions regularly to help prevent decubitus issues. They will try to transfer him to a bedside chair today. 4. Patient will continue be managed in the ICU until cleared from a pulmonology standpoint. When medically stable clear, patient will be planning to be discharged to a spinal cord facility for rehabilitation. 5. We will continue to follow the patient closely. The patient is seen and examined at bedside. He is in good spirits today. He is talking. He is following commands with his upper extremities. He is not complaining of any pain. The critical care service notes are appreciated. He seems to be breathing adequately today with supplementation. Hopefully his respiratory status will remain stable and he will be able to start to try to mobilize and rehab. He has severe deconditioning along with his paralysis. The incision site appears stable and we will plan to remove the jarad tomorrow.
[2025-04-04 17:15] LABS: Glucose,Whole Blood 148 mg/dL (70-110)
[2025-04-05 01:13] LABS: Glucose,Whole Blood 175 mg/dL (70-110)
[2025-04-05 05:14] LABS: HCT 37.8 % (39.6-50.0); HGB 12.1 g/dL (13.0-17.0); Immature Platelet Fraction 4.5 % (1.1-6.1); MCH 29.4 pg (27.0-32.0); MCHC 32.0 g/dL (32.0-37.0); MCV 92.0 fL (80.0-97.0); Platelet Count 102 10*3/uL (140-440); RBC 4.11 10*6/uL (4.40-5.60); RDW 14.1 % (11.5-14.5); WBC 12.57 10*3/uL (4.50-10.00)
[2025-04-05 05:27] LABS: African American GFR (CKD) >90 (>60 ml/min/1.73 sqM); Anion Gap 2 mmol/L; Blood Urea Nitrogen 29 mg/dL (9-20); Calcium 8.2 mg/dL (8.4-10.2); Carbon Dioxide 27 mmol/L (22-30); Chloride 102 mmol/L (98-107); Glucose 171 mg/dL (74-99); Non-African American GFR(CKD) >90 (>60 ml/min/1.73 sqM); Potassium 4.2 mmol/L (3.5-5.1); Sodium 131 mmol/L (137-145)
[2025-04-05 06:19] LABS: Glucose,Whole Blood 154 mg/dL (70-110)
--- NOTE | 2025-04-05 07:28 | XR ---
EXAMINATION TYPE: XR chest 1V portable DATE OF EXAM: 04/05/2025 6:45 AM COMPARISON: None. CLINICAL INDICATION: Male, 65 years old with history of icu progress, previous abnormal chest, diffic ulty breathing TECHNIQUE: XR chest 1V portable view(s) obtained semiupright position. Patient rotated to the left. FINDINGS: The heart size is upper limits of normal. The pulmonary vasculature is normal. There is an opacification silhouetting the left diaphragm on the left. Small to moderate pleural effu héctor may be present. Minimal right pleural effusion is not excluded Postsurgical cervical spine fixation changes are present IMPRESSION: 1. Left lower lobe opacification. Moderate pleural effusion is favored. Atelectasis and pneumonia cou ld be considered. Continued follow-up recommended. [facility], , 04/05/2025 7:25 AM
--- NOTE | 2025-04-05 10:50 | P.PN ---
Progress Note - Text Progress Note Date: 04/05/25 Postoperative day #16 Patient is seen and examined today at bedside. I have him sitting up in a chair.. He is comfortable breathing comfortably with supplemental oxygen plan. Remains extubated. No complaints of any pain. He says when he is sitting up he can feel his glutes and lower back. Physical Exam Afebrile Abdomen is soft nontender. His neurologic status is unchanged. He is not able to paralysis above his navel down At his neck I remove the jarad posteriorly from his cervical spine. There is a small area area of the incision that has drainage with evacuation of seroma approximately 100 cc. There is no purulence. There is no purulence. There is no significant erythema . It is recovered with dry dressing. His collar is intact Calves and thighs were soft nontender without evidence of DVT. Assessment/Plan Postoperative day #16 status post posterior cervical decompression and discectomy C7-T1 with fusion extending from C3-T3. For his severe spinal cord injury due to large disc herniation at C7 to Paralysis, unchanged Respiratory status appears to be stabilizing with supplemental oxygen. He remains extubated Will continue his critical care management as per pulmonary critical care service. They are starting to mobilize him more and he is sitting up in a chair. He is not complaining of any pain. We will continue to increase the patient's mobilization with therapy. with his drainage at his wound, I will start prophyactic antibiotics and follow the area. We will continue pain control with oral or IV medications. We'll continue to follow patient closely.
--- NOTE | 2025-04-05 11:26 | P.PN ---
Subjective Progress Note Date: 04/05/25 Principal diagnosis: Leg weakness. This is a 64-year-old male patient was undergone a C 7 T1 discectomy, done posteriorly with wide laminectomy and foraminotomy and partial facetectomy. The patient was experiencing cervical myelopathy with severe bilateral lower extremity weakness and T8 paresthesia. The patient has previous history of cervical spine fusion C2-C7. The patient was found to have a large herniated disc C7-T1 with severe spinal cord stenosis and based on that the patient was taken to the operating room and underwent a C7-T1 discectomy on 03/21/2025. The patient has become progressively more hypoxic. Currently he is on Airvo at 60 L and FiO2 of 90%. His current pulse ox is in order of 90 to 93%. Slightly tachycardic. Blood pressure is also soft at 89/62. Based on worsening hypoxemia, CT of the chest was done and the patient was found to have signi ficant volume loss in the left lung compared to the right. There is marked volume loss and atelectasis in addition to an area of consolidation in the left upper lobe and elevation of the left hemidiaphragm in addition to significant gastric distention. The patient has dilated air in the stomach and colon. Blood work shows a white cell count of 14, hemoglobin 12.4 and a platelet count of 175. Sodium levels at 137, bicarb is at 23, potassium level is at 4.3 with a chloride of 102. BUN 23 with a creatinine of 0.9. The patient is resting comfortably in bed. He is wearing a hard neck collar. He is reporting some mild shortness of breath even at rest. He is tolerating the Airvo. He is currently on IV Solu-Medrol 100 mg every 6 hours post neck surgery. He is also on IV fluids with l normal saline at rate of 75 cc an hour. Comorbidities include hypertension, hyperlipidemia, diabetes mellitus type 2, obstructive sleep apnea maintained on CPAP therapy on outpatient basis On today's evaluation of 03/23/25, patient is still on the BiPAP pressure of 14 over 6 cm of water and FiO2 has been weaned down to 65%. The patient's abdomen seems to be less distended. He had 2 bowel movements and the patient is also passing flatus. Fluid balance +223 cc over the past 24 hours and the patient remains on normal saline at a rate of 75 cc an hour. Neurologically, unchanged and the patient has absent motor function lower extremities bilaterally. He is on broad-spectrum antibiotics and the patient is currently on Zosyn vancomycin combination. Follow-up chest x-ray shows some interval improvement in aeration in the left lung base. Lung volumes in the left remain small and there is some ongoing atelectatic change at left lower lobe. The patient's white cell count is 11, hemoglobin 11.3 and a platelet count of 180. Electrolytes are all within normal limits. BUN is 40 with a creatinine of 1.05. The patient is able to communicate. He is alert and awake. Denies having any specific complaints. Still wearing a hard neck collar. 03/24/2025, the patient is laying flat in bed and is currently on a BiPAP at a pressure of 14/6 with an FiO2 of 75% overnight and Airvo during the day. He remains on normal saline at rate of 75 cc an hour. Chest x-ray still showing left lower lobe consolidation. Abdomen is soft. He had 3 bowel movements. He is on Lantus insulin. The patient's mentation is awake and alert. Nevertheless, he continues to have profound weakness in the lower extremity and he remains paraplegic. Remains on IV Solu-Medrol. Blood sugars are elevated and he remains on Lantus 15 units daily and NovoLog sliding scale coverage. The white cell count 11.9, hemoglobin 11.3 and a platelet count of 201. BUN 34 with a creatinine of 0.8. Sodium levels at 136. Blood sugars up to 82. He is postop day #4 following an open decompression and fusion of C7-T1 surgery was done due to a large disc herniation and spinal cord injury. He is also status post fusion and extension from prior fusion C2-7 and near extension fusion down to T3. He is unable to move his legs still. Samuels catheter still in place. Using incentive spirometer. Afebrile. 03/25/2025, the patient is being seen for a follow-up. Repeat chest x-ray was done and shows ongoing volume loss and atelectasis in the left lung base. I also performed an ultrasound of the chest and there is no sizable pleural effusion for thoracentesis. Findings are more consistent with consolidation/atelectasis. Remains on Airvo at 60 L and FiO2 of 90%. Incentive spirometer. Overnight, using BiPAP pressure of 14/6 and use of water with an FiO2 of 80%. Remains in normal Saint rate of 75 cc an hour. Fluid balance is +550 cc over the past 24 hours. No respiratory difficulties. The white cell count of 12. Hemoglobin is 10.9. Platelet count is 210. BUN is 32 with a creatinine of 0.8. Sodium levels at 138 and potassium levels of 4.2. Remains on Zosyn and vancomycin. Neurologically unchanged and the patient continues to be paraplegic. Patient was seen today on 03/26/2025, patient remains in the ICU, he is on Airvo at 90% and 60 L flow, patient is generally weak, alert and appropriate, IV fluid at 75 cc/h, continues to have weakness from the waist down. Patient had cervical spine surgery postoperative day #6. Chest x-ray showed complete opacification of the left lung consistent with mucous plugging involving the left mainstem bronchus. Hence I discussed this with the patient today, patient needs to be bronchoscope, needs to have extraction of mucous plugs. Considering the patient is marginal at best, will need to be intubated and placed on mechanical ventilation for the procedure. Based on the findings we will decide whether the patient needs to remain on mechanical ventilation after bronchoscopy or not. Most likely he will remain ventilated after the bronchoscopy. Patient has a bit of leukocytosis with WBC of 13.3 hemoglobin 11.3 electrolytes are normal renal profile is normal. Nasal screen has been positive for MSSA not MRSA. Patient was seen today on 03/27/2025, patient remains intubated and mechanically ventilated, kept him on mechanical ventilation after his bronchoscopy yesterday and suctioning of mucous plugs from the left mainstem bronchus and left lung. Left lung continues to show good inflation, minimal left lower lobe atelectasis, patient is on assist-control rate of 18 tidal volume 550 FiO2 50% and PEEP of 8 ABG today showed a pO2 of 84 pCO2 37 pH of 7.41. Patient is also on propofol at 50 mg/kg/min IV fluids at 75 cc/h on antibiotics in the form of Zosyn and vancomycin, antibiotics to be changed once we have the final culture from the BA L. I plan to wean the patient today, possibly consider placing him on BiPAP 12/6/50% assuming he tolerates weaning and he passes his weaning parameters. Patient is awake, follows instructions, although he is still on propofol. WBC count is 14.48 hemoglobin 10.8 electrolytes are normal, BUN is 29 creatinine 0.7 Patient was seen today on 03/28/2025, patient was extubated yesterday, had to be placed on BiPAP to avoid atelectasis again of the left lung and mucous plugging patient has very poor cough, cannot clear his secretions, and his chest x-ray today is beginning to show early atelectasis in the left lower lobe, questionable effusion but ultrasound did not show much fluid. I believe it is all a picture of atelectasis involving the left lower lobe and I am afraid that the patient may have reopacification of the left lung in the next 24 hours. In the meantime I will continue patient on BiPAP, will recommend chest PT, N- acetylcysteine and albuterol, Mucinex, and hopefully we can avoid another bronchoscopy. Otherwise if the patient opacifies left lung again, may have to be bronchoscope again. And if we do I will keep him longer on mechanical ventilation. Patient remains on antibiotics/broad-spectrum he is WBC count is 19.36 hemoglobin is 10.7 electrolytes are normal renal profile is normal. Seen today on 03/29/2025, patient remains in the ICU, chest x-ray is showing worsening and he is again having near complete opacification of the left lung. Apparently the patient is developing mucous plugging again involving the left mainstem bronchus and the cultures from his last BAL came back showing Serratia marcescens. Considering the patient's critical illness, I am transitioning Zosyn to Merrem for better coverage of Serratia. Sensitivity is still pending on the organism. But empirically Merrem would be a better choice for Serratia marcescens for the time being. Patient still on BiPAP at 14/6/60%, and considering his abnormal chest x-ray, I am recommending bronchoscopy again and this has to be again done with the patient intubated as his O2 saturation is marginal even on 60% BiPAP. Patient looks comfortable, he is not in distress. Continues to have leukocytosis with WC of 23.23 hemoglobin 11.2 basic metabolic profile is normal renal profile is normal continues to have cervical collar in place. Patient was seen today on 03/30/2025, remains in the ICU, intubated and mechanically ventilated, patient is on assist-control rate of 18 tidal volume 550 FiO2 50% PEEP of 10 ABG showed a pO2 of 122 pCO2 37 pH of 7.47 hence FiO2 was cut down to 40%. Remains on Merrem remains on propofol at 40 mcg/kg/min and on Versed 1 mg/h. Patient is sedated, does not seem to be in any distress, chest x-ray is showing slight worsening in the left lower lobe, but not severe enough to justify bronchoscopy again. However considering this I am not planning to extubate the patient today as if extubated he will most likely end up requiring bronchoscopy again. Patient had positive cultures for Serratia marcescens, and is now on Merrem. Labs today were reviewed patient has leukocytosis with WBC count of 19.7 hemoglobin 11.3, basic metabolic profile is normal renal profile is normal patient is on nutritional support/enteral feeding. Chest x-ray today is a bit worrisome hence no plans to wean and extubate today. Patient was seen today on 03/31/2025, remains in the ICU, intubated and mechanically ventilated. Patient is on assist-control rate of 18 tidal volume 5 50 FiO2 40% and PEEP of 10 ABG on 45% showed a pO2 of 86 pCO2 42 pH of 7.44. Chest x-ray is showing left lower lobe atelectasis/airspace disease involving the left lower lobe hence I was concerned about recollapsing of the left lung, bronchoscopy was performed, and the secretions noted in the left lower lobe with were very minimal. Did not require lavage, there was not enough secretions to do lavage. Hence the patient was kept intubated mechanically ventilated, he is now on propofol at 45 mcg/kg/min is on Versed 1 mg/h and is receiving vital HP at 32 cc/h. Remains on fluconazole, remains on Merrem. Continues to have a bit of leukocytosis with WBC of 19.12 hemoglobin 11.7 electrolytes are normal, renal profile is normal. Patient was seen today on 04/01/2025, remains in the ICU, remains intubated and mechanically ventilated. Patient is sedated with propofol at 45 mcg/kg/min and Versed 1 mg/h. Patient is calm he is on assist-control mode of mechanical ventilation rate 18 tidal volume 550 FiO2 40% PEEP that ABG showed a PO2 of 91 pCO2 37 pH of 7.52 chest x-ray showed improvement in his left lower lobe atelectasis but he does have bilateral pleural effusions has I recommended a d ose of Lasix 40 mg IV push x 1 was given. Considering his ABG is better considering his chest x-ray is showing improvement, I recommended a trial of weaning. However on pressure support and CPAP, his ABG was marginal with a pO2 of 61 pCO2 40 pH of 7.51, hence I felt the patient is not ready to be weaned especially with relatively low pO2 of 61. And I felt the patient should be back on sedation and back on assist-control mode of mechanical ventilation. In the meantime patient remains on nutritional support, remains in GI prophylaxis: And again he received a dose of Lasix earlier today for what seems to be bilateral pleural effusions. Continues to have leukocytosis with WBC count of 19.4 hemoglobin 11.5 electrolytes are normal, renal profile is normal blood sugar is 245 Patient was seen today on 04/02/2025, remains in the ICU, intubated and mechanically ventilated. Remains on the same ventilator settings, is on assist- control mode of mechanical ventilation, ABG today showed a pO2 of 103 pCO2 34 pH of 7.57 chest x-ray is showing improvement in his left-sided opacity much better today compared to the last few days, WBC count remains elevated at 21.02 hemoglobin is 11.7 electrolytes are normal, renal profile is normal. Blood sugar is 286. Considering the improvement noted on the chest x-ray, patient will be given another weaning trial today, and I will discontinue his sedation, placed patient on pressure support of 12 and CPAP, his PEEP is down to 6. Patient will be weaned and if tolerated we could proceed to extubation. Otherwise may keep patient mechanically ventilated again for another day. In the meantime he is receiving Merrem for his Serratia marcescens pneumonia. Progress note dated April 03, 2025. This is a 64-year-old male who was admitted back on March 18, with leg weakness, and cervical myelopathy. On day 13, the patient had a cervical decompression an d fusion, from C7-T1. The patient has been in the intensive care unit, pretty much the entire time, with intubation, and extubation x 2. The patient is also had bronchoscopy x 2. He continues on meropenem and Diflucan. He is on BiPAP, with settings of 14/8, and 80%. He is getting saline at KVO. Current laboratory data includes a white count of 20.3, hemoglobin 11.8, hematocrit 36.5, and a platelet count of 123,000. Sodium 133, potassium 4.2, chlorides 103, CO2 28, BUN 29, creatinine 0.43. Glucose is 171. Calcium is 8.3. Bronchoscopy and washings from March 26 were positive for Serratia marcescens. Chest x-ray, shows left basilar opacity consistent with atelectasis, and/or effusion. The chest x-ray in my opinion is improved compared to the prior 1. Progress note dated April 04, 2025. 64-year-old male admitted back on March 18 with leg weakness, and cervical myelopathy. On March 20, the patient had a cervical decompression and fusion, from C7-T1. The patient has been in the intensive care unit, the entire time, with intubation and extubation x 2. The patient also had bronchoscopy, with BAL x 2. Currently, the patient is seen today in room 252. The patient is currently on Airvo, 60 L/min with an FiO2 of 60%. He is getting saline to KVO. At this point, the meropenem can be discontinued. White count 17.1, hemoglobin 11.8, hematocrit 36, platelet count 119,000. Sodium 133, potassium 4.1, chlorides 102, CO2 31, BUN 29, creatinine 0.47. Glucose is 140. Calcium is 8.3 . Bronchoscopy, from March 26, was positive for Serratia marcescens. Chest x-ray is stable, and is largely unchanged. Progress note dated April 05, 2025. 64-year-old male admitted back on March 18 with leg weakness and cervical myelopathy. 2 days later on March 20, the patient had a cervical decompression and fusion, from C7-T1. The patient has been in the intensive care unit, the entire time, and has been intubated and extubated twice, and as well, has had 2 bronchoscopies, with BAL's. He is seen again in room 252. He is currently on Airvo. Settings include 60 L/min with an FiO2 of 70%. Is not receiving any IV fluids. Today's chest x-ray is a bit worse, showing more significant collapse of the left lower lobe. The patient does have an incentive spirometer, and a flutter valve, and I encouraged him to use it on a regular basis. His cough is very weak. White count is 12.6, hemoglobin 12.1, hematocrit 37.8, platelet count is 102,000. Sodium 131, potassium 4.2, chlorides 102, CO2 27, BUN 29, creatinine 0.38. Glucose 154. Calcium 8.2. Objective - Vital Signs Vital signs: Vital Signs Temp 97.9 F 04/05/25 08:00 Pulse 68 04/05/25 11:20 Resp 16 04/05/25 11:00 BP 92/51 04/05/25 11:00 Pulse Ox 88 L 04/05/25 11:00 FiO2 75 04/05/25 11:12 Intake & Output 04/04/25 04/05/25 04/05/25 18:59 06:59 18:59 Intake Total 678.5 553.3 130 Output Total 780 950 360 Balance -101.5 -396.7 -230 Weight 109.1 kg Intake: IV 256.5 153.3 130 Meropenem 1 gm In Sodium 166.5 33.3 100 Chloride 0.9% 100 ml @ 33 .3 mls/hr IVPB Q8HR JUAN LUIS Rx#:[id number] kvo 90 120 30 Oral 422 400 Output: Urine 780 950 360 Other: Voiding Method Indwelling Catheter Indwelling Catheter # Bowel Movements 1 1 - Exam No acute distress, oriented 3. The patient is currently on Airvo. HEENT examination is grossly unremarkable. Neck supple. Full range of motion. No adenopathy thyromegaly or neck vein distention. Cardiovascular examination reveals regular rhythm rate. S1-S2 normal. No S3 or S4. No discernible murmur noted. Heart sounds are distant. Lungs reveal mostly clear breath sounds. Scattered rhonchi. No wheezes or crackles. Breath sounds equal bilaterally. Abdomen soft bowel sounds are heard. No masses or tenderness. Extremities are intact. No cyanosis clubbing or edema. Skin is without rash or lesion. Neurologic examination is brief but nonfocal. - Labs CBC & Chem 7: 04/05/25 04:24 04/05/25 04:24 Labs: Abnormal Lab Results - Last 24 Hours (Table) 04/04/25 04/04/25 04/05/25 Range/Units 11:54 17:13 01:12 WBC (4.50-10.00) 10*3/uL RBC (4.40-5.60) 10*6/uL Hgb (13.0-17.0) g/dL Hct (39.6-50.0) % Plt Count (140-440) 10*3/uL Sodium (137-145) mmol/L BUN (9-20) mg/dL Creatinine (0.66-1.25) mg/dL Glucose (74-99) mg/dL POC Glucose (mg/dL) 128 H 148 H 175 H (70-110) mg/dL Calcium (8.4-10.2) mg/dL 04/05/25 04/05/25 04/05/25 Range/Units 04:24 04:24 06:18 WBC 12.57 H (4.50-10.00) 10*3/uL RBC 4.11 L (4.40-5.60) 10*6/uL Hgb 12.1 L (13.0-17.0) g/dL Hct 37.8 L (39.6-50.0) % Plt Count 102 L (140-440) 10*3/uL Sodium 131 L (137-145) mmol/L BUN 29 H (9-20) mg/dL Creatinine 0.38 L (0.66-1.25) mg/dL Glucose 171 H (74-99) mg/dL POC Glucose (mg/dL) 154 H (70-110) mg/dL Calcium 8.2 L (8.4-10.2) mg/dL Assessment and Plan Assessment: Acute hypoxemic respiratory failure, secondary to recurrent left lung collapse, S/P bronchoscopy x 2. History of Serratia marcescens pneumonia. S/P bronchoscopy x 2. Severe spinal canal stenosis at C7-T1, S/P decompression/fusion, postop day #14. Obstructive sleep apnea syndrome, on CPAP. Type 2 diabetes mellitus. Hypotension secondary to sepsis, resolved. Hyperlipidemia. Bilateral lower extremity weakness, secondary to cervical disc disease. T8 paresthesia. History of severe L5-S1 neuroforaminal stenosis. Plan: Plan dated April 03, 2025. The patient remains in the intensive care unit, critically ill. The patient continues on BiPAP, with settings of 14/8, and 80%. The patient is also getting saline at KVO. The patient continues on meropenem and Diflucan. Labs, x-rays, medications are reviewed. The patient is postoperative day #14, status post cervical decompression and fusion, from C7-T1. Chest x-ray today looks a bit improved. The patient may be trialed on some high flow nasal cannula or Airvo. Additional recommendations and suggestions are forthcoming. We will get the patient a flutter valve. Prognosis is certainly guarded. Dictation was produced using [employer] software. Please excuse any grammatical, word or spelling errors. Plan dated April 04, 2025. The patient is seen today in room 252. The patient remains critically ill. He currently is on Airvo, 60 L/min with an FiO2 of 60%. Saturations are in the low 90s. The patient's meropenem can be discontinued. The patient continues on saline at KVO. We recommend deep breathing, coughing, clearing of secretions, use of the incentive spirometer, and the flutter valve. We will continue to follow the patient, make recommendations where appropriate. The patient's chest x-ray is stable, or slightly improved. Prognosis is guarded. The patient is not yet ready to leave the intensive care unit. Dictation was produced using [employer] software. Please excuse any grammatical, word or spelling errors. Plan dated April 05, 2025. The patient is seen today in room 252. The patient remains critically ill. He is on Airvo, with settings of 60 L/min, and an FiO2 of 70%. He is not receiving any IV fluids. Chest x-ray, labs, medications are reviewed. In my opinion, his chest x-ray is a bit worse today than it was yesterday. We encourage deep breathing, coughing, clearing the secretions. The patient's cough mechanism is very weak. In addition, the patient has an incentive spirometer, and a flutter valve, and I encouraged him to use both, on an hourly basis. We will continue to follow the patient, make recommendations were appropriate. Prognosis is certainly guarded. Dictation was produced using [employer] software. Please excuse any grammatical, word or spelling errors. Time with Patient: Greater than 30
--- NOTE | 2025-04-05 11:46 | P.PN ---
Subjective Progress Note Date: 04/05/25 Principal diagnosis: Hospital course: Patient is a pleasant 64-year-old male with a past medical history of hypertension, hyperlipidemia, type II esb-ohlpkwr-coavnninf diabetes mellitus, involuntary limb muscle fasciculations/movements on Mirapex and last seen neurologist (Dr. Wheeler) approximately 2 months ago, migraine headaches, depression. Presented to the emergency department with a chief complaint of sudden onset numbness extending from periumbilical region downwards throughout groin and bilateral lower extremities followed by weakness of bilateral lower extremities. Patient states he was moving some plants at home when he had sudden onset of numbness around his lower abdomen circling around him like a belt that quickly radiated into his groin and into bilateral lower extremities accompanied by weakness of bilateral lower extremities which resulted in his legs giving out from beneath him causing him to fall to the ground. Patient de nied having any dizziness or lightheadedness, headache, neck or back pain, or experiencing any pain in his abdomen, groin, or lower extremities. He denies hitting his head during the fall and denies having any loss of consciousness. But reports due to the sudden onset numbness and weakness he was unable to stand back up and had to have his call EMS for transfer to the hospital. Upon arrival to our facility, patient underwent evaluation in the emergency department. Vital signs upon arrival show blood pressure 165/97, heart rate 88, respiratory rate 18, temp 98.8 F, and SpO2 of 97% on room air. CT lumbar spine CT abdomen and pelvis was also negative for acute intra-abdominal process completed showing no evidence for spinal fracture, no evidence for significant spinal canal stenosis revealing severe right L5-S1 neuroforaminal stenosis and moderate bilateral L4-L5 neuroforaminal stenosis, revealing a right middle lobe pulmonary nodule 8 mm, prostamegaly, colonic diverticulosis, and bilateral adrenal myolipoma's. Labs completed and reviewed. CBC unremarkable. BMP showing hyperglycemia with blood glucose of 146. Liver profile normal findings. Urinalysis positive for glucose and ketones but negative for infection. Patient was admitted under services with consultation to neurology and orthospine surgery. MRI lumbar spine was completed showing no definitive evidence of disc herniation or significant spinal canal stenosis revealing minimal disc degeneration with associated osteoarthritic changes. Patient underwent extensive cervical spinal surgery on the evening of 03/20/2025 through 03/21/2025. 04/02/25: Patient seen and examined at bedside today in the ICU. He was intubated but off sedation and weaning parameters were being obtained. No acute events overnight. He denies any acute complaints today. 04/03/25: Patient evaluated at bedside. He remains in the ICU. He was extubated yesterday. He did well overnight, but today morning his SpO2 dropped to 80s and his BIPAP was put on 100% FiO2 briefly. Currently at 14/8/80%. He is awake and responds with a thumbs up. 04/04/25: Patient seen and examined today at bedside. He remains in the ICU . No acute events overnight. 04/05/25: Patient evaluated at bedside. He continues to be in the ICU and on Airvo. Review of systems: Pertinent positives and negatives as discussed in HPI, a complete review of systems was performed and all other systems are negative. Vitals: Signs Reviewed, SpO2 93% with 60% FiO2 Physical examination: General: nontoxic, no distress, appears at stated age, currently on Airvo Derm: Warm, dry Head: Atraumatic, normocephalic, symmetric Eyes: EOMI, no lid lag, anicteric sclera Mouth: No lip lesion, mucus membranes moist Cardiovascular: S1S2 reg, no murmur Lungs: Bilateral rhonchi, more prominent on the left, no accessory muscle use Abdominal: Soft, nontender to palpation, no appreciable organomegaly Ext: No gross muscle atrophy, no edema, no contractures Neuro: Awake and alert, flaccid paralysis is b/l LE Psych: Appropriate affect Data Reviewed Today: Labs: WBC 12.27, hemoglobin 12.1, sodium 131, bicarb 27, glucose 154 Imaging: Chest Xray today shows left lower lobe opacification Assessment/Plan: Patient is a 64 year old male who presented with sudden onset numbness and weakness in bilateral lower extremities. He underwent extensive cervical decompression with discectomy and fusion. He was then intubated due to acute hypoxemic respiratory failure secondary to severe atelectasis and underlying pneumonia. Extubated on 04/02/25. Active: #. Acute hypoxemic respiratory failure secondary to severe atelectasis and mucous plugging status post bronchoscopy x 2 #. Suspected underlying pneumonia secondary to Serratia #. Leukocytosis, improving CT angio of chest shows markedly progressive left lung volume loss with marked atelectasis increasing suspicion for endobronchial obstruction/neoplasm and further evaluation may be indicated. Interval development of mild right lower lobe atelectasis. Bronchial washings culture showed positive for Serratia, nasal swab showed positive for Staph aureus, not MRSA Extubated on 04/02/25 Continue Airvo IV Solu-Medrol decreased to 40 mg every 8 hours, if clinically improving consider decreasing to BID in the next 1-2 days Continue DuoNebs 4 times daily and every 2 hours as needed Continue fluconazole 400 mg IVPB daily for 8 days(total 14 days) Meropenem discontinued Continue with Mucomyst,DuoNebs 4 times daily, every 2 hours as needed Encourage incentive spirometry Monitor CBC Pulm crit is following #. Cervical myelopathy secondary to severe spinal canal stenosis involving C7-T1 #. Status post extensive cervical decompression with discectomy at C7-T1 and fusion with extension of fusion from C3-C7 with new extension down to T3 #. Severe right L5-S1 neuroforaminal stenosis #. Moderate bilateral L4-L5 neuroforaminal stenosis Orthopedic surgery following status post extensive cervical decompression with dissecting at C7-T1 and fusion with extension of fusion from C3-C7 with new extension down to T3 Continue Solu-Medrol 40 mg IV every 8 hours Started on Cefazolin due to drainage at wound Continue inpatient rehab Resume lisinopril, hydralazine as needed Continue neurochecks every 4 hours and as needed. Maintain fall precautions Continue Samuels catheter management Continue Unna boot bilaterally to prevent foot drop PT/OT following Neurology consultation is appreciated Orthopedic surgery is following, Recommend increased mobilization with therapy #. Type II phw-zhvrvga-cpeqfcqbv diabetes mellitus Hyperglycemia likely secondary to high-dose steroids being administered at this time. Continue Lantus to 50 units subcu daily as basal insulin Continue sliding scale insulin Continue premeal insulin 10 units #. Bilateral lower extremity edema Bilateral lower extremity Doppler ultrasound negative for DVT #. Hyponatremia Na 133, secondary to lasix vs steroid Monitor BMP Chronic: #. Hypertension #. Hyperlipidemia #. Obstructive sleep apnea #. BPH Continue lisinopril 40 mg p.o. daily, atorvastatin 40 mg p.o at bedtime, tamsulosin 0.4 mg p.o. daily, continue CPAP nightly and while napping. F: None E: Replete as required N: Enteral tube feeding A: Bed bound DVT prophylaxis: Lovenox 40 mg subcu daily Code status: Full code Anticipated discharge place: Pending clinical course Anticipated discharge time: Pending clinical course Dictation was produced using [employer] dictation software. please excuse any grammatical, word or spelling errors. Urban Hughes MD PGY-1 IM I have seen and evaluated the patient today. Discussed with the resident and agree with the residents finding and plan as documented in the resident's note. Changes highlighted in blue font. Objective - Vital Signs Vital signs: Vital Signs Temp 97.7 F 04/05/25 04:00 Pulse 63 04/05/25 06:00 Resp 16 04/05/25 06:00 BP 110/64 04/05/25 06:00 Pulse Ox 93 L 04/05/25 06:00 FiO2 69 04/05/25 04:25 Intake & Output 04/04/25 04/04/25 04/05/25 06:59 18:59 06:59 Intake Total 420 678.5 553.3 Output Total 955 780 950 Balance -535 -101.5 -396.7 Weight 111 kg 109.1 kg Intake: IV 220 256.5 153.3 Meropenem 1 gm In Sodium 100 166.5 33.3 Chloride 0.9% 100 ml @ 33 .3 mls/hr IVPB Q8HR [facility] Rx#:[id number] kvo 120 90 120 Intake, IV Titration 200 Amount Fluconazole in NaCl,Iso- 200 Osm 400 mg In Saline 1 200ml.bag @ 100 mls/hr IVPB DAILY@1800 JU[facility] Rx#: [id number] Oral 422 400 Output: Urine 955 780 950 Other: Voiding Method Indwelling Catheter Indwelling Catheter Indwelling Catheter # Bowel Movements 1 1 - Labs CBC & Chem 7: 04/05/25 04:24 04/05/25 04:24 Labs: Abnormal Lab Results - Last 24 Hours (Table) 04/04/25 04/04/25 04/05/25 Range/Units 11:54 17:13 01:12 WBC (4.50-10.00) 10*3/uL RBC (4.40-5.60) 10*6/uL Hgb (13.0-17.0) g/dL Hct (39.6-50.0) % Plt Count (140-440) 10*3/uL Sodium (137-145) mmol/L BUN (9-20) mg/dL Creatinine (0.66-1.25) mg/dL Glucose (74-99) mg/dL POC Glucose (mg/dL) 128 H 148 H 175 H (70-110) mg/dL Calcium (8.4-10.2) mg/dL 04/05/25 04/05/25 04/05/25 Range/Units 04:24 04:24 06:18 WBC 12.57 H (4.50-10.00) 10*3/uL RBC 4.11 L (4.40-5.60) 10*6/uL Hgb 12.1 L (13.0-17.0) g/dL Hct 37.8 L (39.6-50.0) % Plt Count 102 L (140-440) 10*3/uL Sodium 131 L (137-145) mmol/L BUN 29 H (9-20) mg/dL Creatinine 0.38 L (0.66-1.25) mg/dL Glucose 171 H (74-99) mg/dL POC Glucose (mg/dL) 154 H (70-110) mg/dL Calcium 8.2 L (8.4-10.2) mg/dL
[2025-04-05 11:48] LABS: Glucose,Whole Blood 238 mg/dL (70-110)
[2025-04-05 16:43] LABS: Glucose,Whole Blood 197 mg/dL (70-110)
[2025-04-05 20:18] LABS: Glucose,Whole Blood 195 mg/dL (70-110)
--- NOTE | 2025-04-05 22:04 | P.PN ---
Progress Note - Text Progress Note Date: 04/05/25 Orthopedic spine: History of present illness: Patient is a very pleasant 64-year-old male who is seen examined at bedside in the ICU for follow-up evaluation of the cervical spine. He is status post posterior cervical decompression discectomy at C7-T1 with extension of fusion from C7 down to T3. He has not had any change from an orthopedic spine standpoint as compared to yesterday. He continues to keep his hard cervical collar intact. He is not experiencing any cervical pain. His jarad remain intact. He has good range of motion of his bilateral upper extremities except for his shoulders bilaterally. He is able to make a fist but is weak with his transport technician. He is awake and alert. He is able to answer questions appropriately. He was able to transfer with significant assistance to a bedside chair today. He is currently in a bedside chair. He continues have significant difficulty with this bilateral lower extremities. He has some improved numbness around his abdomen towards the groin. Currently he does not have any sensation in his bilateral lower extremities and has no motor function in his lower extremities. His lower extremity symptoms have not improved. He currently has compression stockings and boots intact. He continues to have difficulty from a respiratory standpoint but has had some improvement. He has been extubated over the past 3 days. There was improvement on his chest x-ray from today. Last note from pulmonology states patient still continues ICU placement. He continues to be seen exam by multiple medical providers including pulmonology and medicine. Physical Exam Posterior cervical Fusion: Status post surgical day number #16 Patient is awake, alert, and oriented 3; patient is answering questions appropriately BiPAP intact Surveillance Observer strength, thumb strength, interosseous strength, biceps strength, and triceps strength positive sustained bilaterally He is able to shrug his shoulders. Weakness with transport technician bilaterally Hard cervical collar intact Surgical jarad were removed at the posterior cervical spine by Dr. Gideon Noyola Small 3mm opening at the inferior portion of the incision has drainge with evacuation of approximately 100cc seroma No purulent drainage No erythema at the surgical site Posterior cervical dressing is removed and reapplied with ABD and tape Pneumatic boots intact bilateral lower extremities Compression stockings intact bilaterally Samuels catheter intact Assessment: Spinal cord injury with paralysis at T8 Postoperative day #15: Status post posterior cervical decompression discectomy at C7-T1 with extension of fusion from C7-T3 Bilateral lower extremity paralysis Bilateral lower extremity loss of sensation Acute hypoxic respiratory failure Left-sided atelectasis Obstructive sleep apnea syndrome on CPAP normally Type 2 diabetes Hypotension could be related to sepsis could also be neurogenic post spinal surgery Dyslipidemia Plan: 1. Patient continues to remain in the ICU. He is awake, alert, and oriented and answering questions appropriately. He has been closely manage from pulmonary standpoint. He has been extubated over the past 2 days. He has had improvement on chest x-ray imaging. 2. Patient must keep his hard cervical collar intact at all times. Rose[place] were removed at the bedside. Patient may continue with dressing changes as needed at the posterior cervical spine. 3. Patient continues to have flaccid paralysis in his bilateral lower extremities. He has had some increase in sensation around his abdomen towards his groin. They should try to change his positions regularly to help prevent decubitus issues. They will try to transfer him to a bedside chair daily. 4. Patient will continue be managed in the ICU until cleared from a pulmonology standpoint. When medically stable clear, patient will be planning to be discharged to a spinal cord facility for rehabilitation. 5. Patient will be started on prophylactic antiobiotics over the next 48 hours 6. We will continue to follow the patient closely.
[2025-04-05 23:45] LABS: Glucose,Whole Blood 170 mg/dL (70-110)
[2025-04-06 05:49] LABS: HCT 37.5 % (39.6-50.0); HGB 12.3 g/dL (13.0-17.0); MCH 29.9 pg (27.0-32.0); MCHC 32.8 g/dL (32.0-37.0); MCV 91.0 fL (80.0-97.0); Platelet Count 100 10*3/uL (140-440); RBC 4.12 10*6/uL (4.40-5.60); RDW 14.3 % (11.5-14.5); WBC 11.71 10*3/uL (4.50-10.00)
[2025-04-06 06:18] LABS: Glucose,Whole Blood 145 mg/dL (70-110)
[2025-04-06 06:21] LABS: African American GFR (CKD) >90 (>60 ml/min/1.73 sqM); Anion Gap 2 mmol/L; Blood Urea Nitrogen 28 mg/dL (9-20); Calcium 8.2 mg/dL (8.4-10.2); Carbon Dioxide 31 mmol/L (22-30); Chloride 99 mmol/L (98-107); Glucose 133 mg/dL (74-99); Non-African American GFR(CKD) >90 (>60 ml/min/1.73 sqM); Potassium 3.9 mmol/L (3.5-5.1); Sodium 132 mmol/L (137-145)
[2025-04-06] MEDS: INSULIN LISPRO (HumaLOG) 100 UNIT/ML 10 mL VL SQ SCH (06:38)
--- NOTE | 2025-04-06 07:17 | XR ---
EXAMINATION TYPE: XR chest 1V portable DATE OF EXAM: 04/06/2025 5:26 AM COMPARISON: None. CLINICAL INDICATION: Male, 65 years old with history of assess lungs, left lower lobe infiltrate TECHNIQUE: XR chest 1V portable view(s) obtained. FINDINGS: The heart size is normal. The pulmonary vasculature is normal. There appears to be elevation left diaphragm. There is silhouetting of the diaphragm. Some atelectasi s at the left base. IMPRESSION: 1. Elevated left diaphragm and left basilar atelectasis, stable from comparison [facility], , 04/06/2025 7:15 AM
--- NOTE | 2025-04-06 08:49 | P.PN ---
Progress Note - Text Progress Note Date: 04/06/25 Orthopedic spine: History of present illness: Patient is a very pleasant 65-year-old male who is seen examined at bedside in the ICU for follow-up evaluation of the cervical spine. He is status post posterior cervical decompression discectomy at C7-T1 with extension of fusion from C7 down to T3. He has not had any change from an orthopedic spine standpoint as compared to yesterday. He continues to keep his hard cervical collar intact. He is not experiencing any cervical pain. His jarad remain intact. He has good range of motion of his bilateral upper extremities except for his shoulders bilaterally. He is able to make a fist but is weak with his medical officer psychiatry. He is awake and alert. He is able to answer questions appropriately. Patient had jarad removed at the bedside yesterday. Seroma was evacuated. He has had minimal bandage since that time. He was able to transfer with significant assistance to a bedside chair today. He is currently in a bedside chair. He continues have significant difficulty with this bilateral lower extremities. He has some improved numbness around his abdomen towards the groin. Currently he does not have any sensation in his bilateral lower extremities and has no motor function in his lower extremities. His lower extremity symptoms have not improved. He currently has compression stockings and boots intact. He continues to have difficulty from a respiratory standpoint but has had some improvement. He has been extubated over the past 4 days. There was improvement on his chest x-ray from today. Last note from pulmonology states patient still continues ICU placement. He continues to be on BiPAP. He continues to be seen exam by multiple medical providers including pulmonology and medicine. Physical Exam Posterior cervical Fusion: Status post surgical day number #17 Patient is awake, alert, and oriented 3; patient is answering questions appropriately BiPAP intact Sleeve Setter Safety Stitch strength, thumb strength, interosseous strength, biceps strength, and triceps strength positive sustained bilaterally He is able to shrug his shoulders. Weakness with medical officer psychiatry bilaterally Hard cervical collar intact No significant active drainage from the surgical site No purulent drainage No erythema at the surgical site Posterior cervical dressing is removed and reapplied with ABD and tape Pneumatic boots intact bilateral lower extremities Compression stockings intact bilaterally Samuels catheter intact Assessment: Spinal cord injury with paralysis at T8 Postoperative day #15: Status post posterior cervical decompression discectomy at C7-T1 with extension of fusion from C7-T3 Bilateral lower extremity paralysis Bilateral lower extremity loss of sensation Acute hypoxic respiratory failure Left-sided atelectasis Obstructive sleep apnea syndrome on CPAP normally Type 2 diabetes Hypotension could be related to sepsis could also be neurogenic post spinal surgery Dyslipidemia Plan: 1. Patient continues to remain in the ICU. He is awake, alert, and oriented and answering questions appropriately. He has been closely manage from pulmonary standpoint. He has been extubated over the past 4 days. He has had improvement on chest x-ray imaging. He continues on BiPAP. Nursing states his BiPAP requirement continues to be high at nighttime. 2. Patient must keep his hard cervical collar intact at all times. Patient may continue with dressing changes as needed at the posterior cervical spine. 3. Patient continues to have flaccid paralysis in his bilateral lower extremities. He has had some increase in sensation around his abdomen towards his groin. They should try to change his positions regularly to help prevent decubitus issues. They will try to transfer him to a bedside chair daily. 4. Patient will continue be managed in the ICU until cleared from a pulmonology standpoint. When medically stable clear, patient will be planning to be discharged to a spinal cord facility for rehabilitation. 5. Patient will be started on prophylactic antiobiotics over the next 24 hours 6. We will continue to follow the patient closely. The patient is seen and examined. We also FaceTime with his . We again explained the overall situation. The patient is going to be on BiPAP at the night while he sleeps. They are monitoring his pulmonary status closely in critical care. I agree with the above stated. He reports some feeling in his thighs. It is difficult to determine if this is real lower not. His incision site remains stable without evidence of active infection. He will keep his prophylactic antibiotics for another day.
--- NOTE | 2025-04-06 09:39 | US ---
EXAMINATION TYPE: US venous doppler duplex UE RT DATE OF EXAM: 04/06/2025 COMPARISON: NONE CLINICAL INDICATION: Male, 65 years old with history of Edema RUE; edema in right arm x 5 days. TECHNIQUE: Grayscale, color Doppler and spectral Doppler imaging of the upper extremity. SIDE PERFORMED: Right ICU patient with a neck brace on VESSELS IMAGED: IJV Subclavian Vein Axilla Vein Brachial Vein(s) Radial Paired Veins Ulnar Paired Veins Cephalic Vein* Basilic Vein* (*superficial vessels) FINDINGS: Right Arm: No evidence for DVT in vessels visualized. Unable to visualize IJV and subclavian vein due to neck brace. Grayscale, color doppler, spectral doppler imaging performed of the deep veins of the upper extremiti es. IMPRESSION: 1. Right upper extremity ultrasound negative for deep venous thrombosis. [facility], , 04/06/2025 9:37 AM
--- NOTE | 2025-04-06 11:03 | P.PN ---
Subjective Progress Note Date: 04/06/25 Principal diagnosis: Leg weakness. This is a 64-year-old male patient was undergone a C 7 T1 discectomy, done posteriorly with wide laminectomy and foraminotomy and partial facetectomy. The patient was experiencing cervical myelopathy with severe bilateral lower extremity weakness and T8 paresthesia. The patient has previous history of cervical spine fusion C2-C7. The patient was found to have a large herniated disc C7-T1 with severe spinal cord stenosis and based on that the patient was taken to the operating room and underwent a C7-T1 discectomy on 03/21/2025. The patient has become progressively more hypoxic. Currently he is on Airvo at 60 L and FiO2 of 90%. His current pulse ox is in order of 90 to 93%. Slightly tachycardic. Blood pressure is also soft at 89/62. Based on worsening hypoxemia, CT of the chest was done and the patient was found to have signi ficant volume loss in the left lung compared to the right. There is marked volume loss and atelectasis in addition to an area of consolidation in the left upper lobe and elevation of the left hemidiaphragm in addition to significant gastric distention. The patient has dilated air in the stomach and colon. Blood work shows a white cell count of 14, hemoglobin 12.4 and a platelet count of 175. Sodium levels at 137, bicarb is at 23, potassium level is at 4.3 with a chloride of 102. BUN 23 with a creatinine of 0.9. The patient is resting comfortably in bed. He is wearing a hard neck collar. He is reporting some mild shortness of breath even at rest. He is tolerating the Airvo. He is currently on IV Solu-Medrol 100 mg every 6 hours post neck surgery. He is also on IV fluids with l normal saline at rate of 75 cc an hour. Comorbidities include hypertension, hyperlipidemia, diabetes mellitus type 2, obstructive sleep apnea maintained on CPAP therapy on outpatient basis On today's evaluation of 03/23/25, patient is still on the BiPAP pressure of 14 over 6 cm of water and FiO2 has been weaned down to 65%. The patient's abdomen seems to be less distended. He had 2 bowel movements and the patient is also passing flatus. Fluid balance +223 cc over the past 24 hours and the patient remains on normal saline at a rate of 75 cc an hour. Neurologically, unchanged and the patient has absent motor function lower extremities bilaterally. He is on broad-spectrum antibiotics and the patient is currently on Zosyn vancomycin combination. Follow-up chest x-ray shows some interval improvement in aeration in the left lung base. Lung volumes in the left remain small and there is some ongoing atelectatic change at left lower lobe. The patient's white cell count is 11, hemoglobin 11.3 and a platelet count of 180. Electrolytes are all within normal limits. BUN is 40 with a creatinine of 1.05. The patient is able to communicate. He is alert and awake. Denies having any specific complaints. Still wearing a hard neck collar. 03/24/2025, the patient is laying flat in bed and is currently on a BiPAP at a pressure of 14/6 with an FiO2 of 75% overnight and Airvo during the day. He remains on normal saline at rate of 75 cc an hour. Chest x-ray still showing left lower lobe consolidation. Abdomen is soft. He had 3 bowel movements. He is on Lantus insulin. The patient's mentation is awake and alert. Nevertheless, he continues to have profound weakness in the lower extremity and he remains paraplegic. Remains on IV Solu-Medrol. Blood sugars are elevated and he remains on Lantus 15 units daily and NovoLog sliding scale coverage. The white cell count 11.9, hemoglobin 11.3 and a platelet count of 201. BUN 34 with a creatinine of 0.8. Sodium levels at 136. Blood sugars up to 82. He is postop day #4 following an open decompression and fusion of C7-T1 surgery was done due to a large disc herniation and spinal cord injury. He is also status post fusion and extension from prior fusion C2-7 and near extension fusion down to T3. He is unable to move his legs still. Samuels catheter still in place. Using incentive spirometer. Afebrile. 03/25/2025, the patient is being seen for a follow-up. Repeat chest x-ray was done and shows ongoing volume loss and atelectasis in the left lung base. I also performed an ultrasound of the chest and there is no sizable pleural effusion for thoracentesis. Findings are more consistent with consolidation/atelectasis. Remains on Airvo at 60 L and FiO2 of 90%. Incentive spirometer. Overnight, using BiPAP pressure of 14/6 and use of water with an FiO2 of 80%. Remains in normal Saint rate of 75 cc an hour. Fluid balance is +550 cc over the past 24 hours. No respiratory difficulties. The white cell count of 12. Hemoglobin is 10.9. Platelet count is 210. BUN is 32 with a creatinine of 0.8. Sodium levels at 138 and potassium levels of 4.2. Remains on Zosyn and vancomycin. Neurologically unchanged and the patient continues to be paraplegic. Patient was seen today on 03/26/2025, patient remains in the ICU, he is on Airvo at 90% and 60 L flow, patient is generally weak, alert and appropriate, IV fluid at 75 cc/h, continues to have weakness from the waist down. Patient had cervical spine surgery postoperative day #6. Chest x-ray showed complete opacification of the left lung consistent with mucous plugging involving the left mainstem bronchus. Hence I discussed this with the patient today, patient needs to be bronchoscope, needs to have extraction of mucous plugs. Considering the patient is marginal at best, will need to be intubated and placed on mechanical ventilation for the procedure. Based on the findings we will decide whether the patient needs to remain on mechanical ventilation after bronchoscopy or not. Most likely he will remain ventilated after the bronchoscopy. Patient has a bit of leukocytosis with WBC of 13.3 hemoglobin 11.3 electrolytes are normal renal profile is normal. Nasal screen has been positive for MSSA not MRSA. Patient was seen today on 03/27/2025, patient remains intubated and mechanically ventilated, kept him on mechanical ventilation after his bronchoscopy yesterday and suctioning of mucous plugs from the left mainstem bronchus and left lung. Left lung continues to show good inflation, minimal left lower lobe atelectasis, patient is on assist-control rate of 18 tidal volume 550 FiO2 50% and PEEP of 8 ABG today showed a pO2 of 84 pCO2 37 pH of 7.41. Patient is also on propofol at 50 mg/kg/min IV fluids at 75 cc/h on antibiotics in the form of Zosyn and vancomycin, antibiotics to be changed once we have the final culture from the BA L. I plan to wean the patient today, possibly consider placing him on BiPAP 12/6/50% assuming he tolerates weaning and he passes his weaning parameters. Patient is awake, follows instructions, although he is still on propofol. WBC count is 14.48 hemoglobin 10.8 electrolytes are normal, BUN is 29 creatinine 0.7 Patient was seen today on 03/28/2025, patient was extubated yesterday, had to be placed on BiPAP to avoid atelectasis again of the left lung and mucous plugging patient has very poor cough, cannot clear his secretions, and his chest x-ray today is beginning to show early atelectasis in the left lower lobe, questionable effusion but ultrasound did not show much fluid. I believe it is all a picture of atelectasis involving the left lower lobe and I am afraid that the patient may have reopacification of the left lung in the next 24 hours. In the meantime I will continue patient on BiPAP, will recommend chest PT, N- acetylcysteine and albuterol, Mucinex, and hopefully we can avoid another bronchoscopy. Otherwise if the patient opacifies left lung again, may have to be bronchoscope again. And if we do I will keep him longer on mechanical ventilation. Patient remains on antibiotics/broad-spectrum he is WBC count is 19.36 hemoglobin is 10.7 electrolytes are normal renal profile is normal. Seen today on 03/29/2025, patient remains in the ICU, chest x-ray is showing worsening and he is again having near complete opacification of the left lung. Apparently the patient is developing mucous plugging again involving the left mainstem bronchus and the cultures from his last BAL came back showing Serratia marcescens. Considering the patient's critical illness, I am transitioning Zosyn to Merrem for better coverage of Serratia. Sensitivity is still pending on the organism. But empirically Merrem would be a better choice for Serratia marcescens for the time being. Patient still on BiPAP at 14/6/60%, and considering his abnormal chest x-ray, I am recommending bronchoscopy again and this has to be again done with the patient intubated as his O2 saturation is marginal even on 60% BiPAP. Patient looks comfortable, he is not in distress. Continues to have leukocytosis with WC of 23.23 hemoglobin 11.2 basic metabolic profile is normal renal profile is normal continues to have cervical collar in place. Patient was seen today on 03/30/2025, remains in the ICU, intubated and mechanically ventilated, patient is on assist-control rate of 18 tidal volume 550 FiO2 50% PEEP of 10 ABG showed a pO2 of 122 pCO2 37 pH of 7.47 hence FiO2 was cut down to 40%. Remains on Merrem remains on propofol at 40 mcg/kg/min and on Versed 1 mg/h. Patient is sedated, does not seem to be in any distress, chest x-ray is showing slight worsening in the left lower lobe, but not severe enough to justify bronchoscopy again. However considering this I am not planning to extubate the patient today as if extubated he will most likely end up requiring bronchoscopy again. Patient had positive cultures for Serratia marcescens, and is now on Merrem. Labs today were reviewed patient has leukocytosis with WBC count of 19.7 hemoglobin 11.3, basic metabolic profile is normal renal profile is normal patient is on nutritional support/enteral feeding. Chest x-ray today is a bit worrisome hence no plans to wean and extubate today. Patient was seen today on 03/31/2025, remains in the ICU, intubated and mechanically ventilated. Patient is on assist-control rate of 18 tidal volume 5 50 FiO2 40% and PEEP of 10 ABG on 45% showed a pO2 of 86 pCO2 42 pH of 7.44. Chest x-ray is showing left lower lobe atelectasis/airspace disease involving the left lower lobe hence I was concerned about recollapsing of the left lung, bronchoscopy was performed, and the secretions noted in the left lower lobe with were very minimal. Did not require lavage, there was not enough secretions to do lavage. Hence the patient was kept intubated mechanically ventilated, he is now on propofol at 45 mcg/kg/min is on Versed 1 mg/h and is receiving vital HP at 32 cc/h. Remains on fluconazole, remains on Merrem. Continues to have a bit of leukocytosis with WBC of 19.12 hemoglobin 11.7 electrolytes are normal, renal profile is normal. Patient was seen today on 04/01/2025, remains in the ICU, remains intubated and mechanically ventilated. Patient is sedated with propofol at 45 mcg/kg/min and Versed 1 mg/h. Patient is calm he is on assist-control mode of mechanical ventilation rate 18 tidal volume 550 FiO2 40% PEEP that ABG showed a PO2 of 91 pCO2 37 pH of 7.52 chest x-ray showed improvement in his left lower lobe atelectasis but he does have bilateral pleural effusions has I recommended a d ose of Lasix 40 mg IV push x 1 was given. Considering his ABG is better considering his chest x-ray is showing improvement, I recommended a trial of weaning. However on pressure support and CPAP, his ABG was marginal with a pO2 of 61 pCO2 40 pH of 7.51, hence I felt the patient is not ready to be weaned especially with relatively low pO2 of 61. And I felt the patient should be back on sedation and back on assist-control mode of mechanical ventilation. In the meantime patient remains on nutritional support, remains in GI prophylaxis: And again he received a dose of Lasix earlier today for what seems to be bilateral pleural effusions. Continues to have leukocytosis with WBC count of 19.4 hemoglobin 11.5 electrolytes are normal, renal profile is normal blood sugar is 245 Patient was seen today on 04/02/2025, remains in the ICU, intubated and mechanically ventilated. Remains on the same ventilator settings, is on assist- control mode of mechanical ventilation, ABG today showed a pO2 of 103 pCO2 34 pH of 7.57 chest x-ray is showing improvement in his left-sided opacity much better today compared to the last few days, WBC count remains elevated at 21.02 hemoglobin is 11.7 electrolytes are normal, renal profile is normal. Blood sugar is 286. Considering the improvement noted on the chest x-ray, patient will be given another weaning trial today, and I will discontinue his sedation, placed patient on pressure support of 12 and CPAP, his PEEP is down to 6. Patient will be weaned and if tolerated we could proceed to extubation. Otherwise may keep patient mechanically ventilated again for another day. In the meantime he is receiving Merrem for his Serratia marcescens pneumonia. Progress note dated April 03, 2025. This is a 64-year-old male who was admitted back on March 18, with leg weakness, and cervical myelopathy. On day 13, the patient had a cervical decompression an d fusion, from C7-T1. The patient has been in the intensive care unit, pretty much the entire time, with intubation, and extubation x 2. The patient is also had bronchoscopy x 2. He continues on meropenem and Diflucan. He is on BiPAP, with settings of 14/8, and 80%. He is getting saline at KVO. Current laboratory data includes a white count of 20.3, hemoglobin 11.8, hematocrit 36.5, and a platelet count of 123,000. Sodium 133, potassium 4.2, chlorides 103, CO2 28, BUN 29, creatinine 0.43. Glucose is 171. Calcium is 8.3. Bronchoscopy and washings from March 26 were positive for Serratia marcescens. Chest x-ray, shows left basilar opacity consistent with atelectasis, and/or effusion. The chest x-ray in my opinion is improved compared to the prior 1. Progress note dated April 04, 2025. 64-year-old male admitted back on March 18 with leg weakness, and cervical myelopathy. On March 20, the patient had a cervical decompression and fusion, from C7-T1. The patient has been in the intensive care unit, the entire time, with intubation and extubation x 2. The patient also had bronchoscopy, with BAL x 2. Currently, the patient is seen today in room 252. The patient is currently on Airvo, 60 L/min with an FiO2 of 60%. He is getting saline to KVO. At this point, the meropenem can be discontinued. White count 17.1, hemoglobin 11.8, hematocrit 36, platelet count 119,000. Sodium 133, potassium 4.1, chlorides 102, CO2 31, BUN 29, creatinine 0.47. Glucose is 140. Calcium is 8.3 . Bronchoscopy, from March 26, was positive for Serratia marcescens. Chest x-ray is stable, and is largely unchanged. Progress note dated April 05, 2025. 64-year-old male admitted back on March 18 with leg weakness and cervical myelopathy. 2 days later on March 20, the patient had a cervical decompression and fusion, from C7-T1. The patient has been in the intensive care unit, the entire time, and has been intubated and extubated twice, and as well, has had 2 bronchoscopies, with BAL's. He is seen again in room 252. He is currently on Airvo. Settings include 60 L/min with an FiO2 of 70%. Is not receiving any IV fluids. Today's chest x-ray is a bit worse, showing more significant collapse of the left lower lobe. The patient does have an incentive spirometer, and a flutter valve, and I encouraged him to use it on a regular basis. His cough is very weak. White count is 12.6, hemoglobin 12.1, hematocrit 37.8, platelet count is 102,000. Sodium 131, potassium 4.2, chlorides 102, CO2 27, BUN 29, creatinine 0.38. Glucose 154. Calcium 8.2. Progress note dated April 06, 2025. 64-year-old male seen again in room 252. The patient was admitted back on March 18 with leg weakness, and cervical myelopathy. On March 20, the patient had a cervical decompression and fusion, from C7-T1. The patient has been in the intensive care unit, the entire time. The patient has been on and off the [employer] ventilator x 2, and has had bronchoscopy x 2. Currently he is resting comfortably. He continues on Airvo. Settings include 60 L/min with an FiO2 of 85%. The patient is getting saline at 10 cc an hour. He does use BiPAP at nighttime, with settings of 14/8, and 80%. His right upper extremity is edematous, and we will do an ultrasound. He continues on Ancef and fluconazole. The Ancef was started by the back surgeon. White count is 11.7, hemoglobin 12.3, hematocrit 37.5, platelet count of 100,000. Sodium 132, potassium 3.9, chloride 79, CO2 31, BUN 28, creatinine 0.5. Glucose is 145. Calcium is 8.2. Chest x-ray is largely unchanged, and stable. Right upper extremity Doppler was negative for DVT. Objective - Vital Signs Vital signs: Vital Signs Temp 97.4 F L 04/06/25 08:00 Pulse 70 04/06/25 10:00 Resp 16 04/06/25 10:00 BP 133/76 04/06/25 10:00 Pulse Ox 96 04/06/25 10:00 FiO2 85 04/06/25 09:00 Intake & Output 04/05/25 04/06/25 04/06/25 18:59 06:59 18:59 Intake Total 960 110 40 Output Total 680 640 260 Balance 280 -530 -220 Weight 112.3 kg Intake: IV 240 110 40 Meropenem 1 gm In Sodium 100 Chloride 0.9% 100 ml @ 33 .3 mls/hr IVPB Q8HR [facility] Rx#:[id number] ceFAZolin 3 gm In Sodium 100 Chloride 0.9% 100 ml @ 200 mls/hr IVPB Q8H [facility] Rx#:[id number] kvo 40 110 40 Oral 720 Output: Urine 680 640 260 Other: Voiding Method Indwelling Catheter Indwelling Catheter Indwelling Catheter # Bowel Movements 1 - Exam No acute distress, oriented 3. The patient is currently on Airvo. HEENT examination is grossly unremarkable. Neck supple. Full range of motion. No adenopathy thyromegaly or neck vein dist ention. Cardiovascular examination reveals regular rhythm rate. S1-S2 normal. No S3 or S4. No discernible murmur noted. Heart sounds are distant. Lungs reveal mostly clear breath sounds. Scattered rhonchi. No wheezes or crackles. Breath sounds equal bilaterally. Abdomen soft bowel sounds are heard. No masses or tenderness. Extremities are intact. No cyanosis clubbing or edema. Right upper extremity is edematous. Skin is without rash or lesion. Neurologic examination is brief but nonfocal. - Labs CBC & Chem 7: 04/06/25 04:38 04/06/25 04:38 Labs: Abnormal Lab Results - Last 24 Hours (Table) 04/05/25 04/05/25 04/05/25 Range/Units 11:47 16:41 20:17 WBC (4.50-10.00) 10*3/uL RBC (4.40-5.60) 10*6/uL Hgb (13.0-17.0) g/dL Hct (39.6-50.0) % Plt Count (140-440) 10*3/uL Sodium (137-145) mmol/L Carbon Dioxide (22-30) mmol/L BUN (9-20) mg/dL Creatinine (0.66-1.25) mg/dL Glucose (74-99) mg/dL POC Glucose (mg/dL) 238 H 197 H 195 H (70-110) mg/dL Calcium (8.4-10.2) mg/dL 04/05/25 04/06/25 04/06/25 Range/Units 23:44 04:38 04:38 WBC 11.71 H (4.50-10.00) 10*3/uL RBC 4.12 L (4.40-5.60) 10*6/uL Hgb 12.3 L (13.0-17.0) g/dL Hct 37.5 L (39.6-50.0) % Plt Count 100 L (140-440) 10*3/uL Sodium 132 L (137-145) mmol/L Carbon Dioxide 31 H (22-30) mmol/L BUN 28 H (9-20) mg/dL Creatinine 0.50 L (0.66-1.25) mg/dL Glucose 133 H (74-99) mg/dL POC Glucose (mg/dL) 170 H (70-110) mg/dL Calcium 8.2 L (8.4-10.2) mg/dL 04/06/25 Range/Units 06:17 WBC (4.50-10.00) 10*3/uL RBC (4.40-5.60) 10*6/uL Hgb (13.0-17.0) g/dL Hct (39.6-50.0) % Plt Count (140-440) 10*3/uL Sodium (137-145) mmol/L Carbon Dioxide (22-30) mmol/L BUN (9-20) mg/dL Creatinine (0.66-1.25) mg/dL Glucose (74-99) mg/dL POC Glucose (mg/dL) 145 H (70-110) mg/dL Calcium (8.4-10.2) mg/dL Microbiology - Last 24 Hours (Table) 03/26/25 15:53 Acid Fast Bacilli Smear - Preliminary Bronchoalviolar Lavage - Left Acid Fast Bacilli Culture - Preliminary Assessment and Plan Assessment: Acute hypoxemic respiratory failure, secondary to recurrent left lung collapse, S/P bronchoscopy x 2. History of Serratia marcescens pneumonia. S/P bronchoscopy x 2. Severe spinal canal stenosis at C7-T1, S/P decompression/fusion, postop day #14. Obstructive sleep apnea syndrome, on CPAP. Type 2 diabetes mellitus. Hypotension secondary to sepsis, resolved. Hyperlipidemia. Bilateral lower extremity weakness, secondary to cervical disc disease. T8 paresthesia. History of severe L5-S1 neuroforaminal stenosis. Plan: Plan dated April 03, 2025. The patient remains in the intensive care unit, critically ill. The patient continues on BiPAP, with settings of 14/8, and 80%. The patient is also getting saline at KVO. The patient continues on meropenem and Diflucan. Labs, x-rays, medications are reviewed. The patient is postoperative day #14, status post cervical decompression and fusion, from C7-T1. Chest x-ray today looks a bit improved. The patient may be trialed on some high flow nasal cannula or Airvo. Additional recommendations and suggestions are forthcoming. We will get the patient a flutter valve. Prognosis is certainly guarded. Dictation was produced using [employer] software. Please excuse any grammatical, word or spelling errors. Plan dated April 04, 2025. The patient is seen today in room 252. The patient remains critically ill. He currently is on Airvo, 60 L/min with an FiO2 of 60%. Saturations are in the low 90s. The patient's meropenem can be discontinued. The patient continues on saline at KVO. We recommend deep breathing, coughing, clearing of secretions, use of the incentive spirometer, and the flutter valve. We will continue to follow the patient, make recommendations where appropriate. The patient's chest x-ray is stable, or slightly improved. Prognosis is guarded. The patient is not yet ready to leave the intensive care unit. Dictation was produced using [employer] software. Please excuse any grammatical, word or spelling errors. Plan dated April 05, 2025. The patient is seen today in room 252. The patient remains critically ill. He is on Airvo, with settings of 60 L/min, and an FiO2 of 70%. He is not receiving any IV fluids. Chest x-ray, labs, medications are reviewed. In my opinion, his chest x-ray is a bit worse today than it was yesterday. We encourage deep breathing, coughing, clearing the secretions. The patient's cough mechanism is very weak. In addition, the patient has an incentive spirometer, and a flutter valve, and I encouraged him to use both, on an hourly basis. We will continue to follow the patient, make recommendations were appropriate. Prognosis is certainly guarded. Dictation was produced using [employer] software. Please excuse any grammatical, word or spelling errors. Plan dated April 06, 2025. The patient is again seen today in room 252. He continues on Airvo, with sett ings of 60 L/min and FiO2 of 85%. The patient is getting saline at 10 cc an hour. Upper extremity Doppler, was negative for DVT. The patient was on meropenem which was discontinued. Ancef was started by the back surgeon. He continues on fluconazole. The patient does use BiPAP at nighttime, with settings of 14/8, and 80%. All labs, x-rays, and medications are reviewed. We encouraged the patient to continue to use the incentive spirometer, and a flutter valve. Additional recommendations and suggestions are forthcoming. Prognosis is guarded. Labs, x-rays, and all medications are reviewed. Dictation was produced using [employer] dictation software. Please excuse any grammatical, word or spelling errors. Time with Patient: Greater than 30
[2025-04-06 11:15] LABS: Glucose,Whole Blood 122 mg/dL (70-110)
--- NOTE | 2025-04-06 12:21 | P.PN ---
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 Wheeler) approximately 2 months ago, migraine headaches, depression. Presented to the emergency department with a chief complaint of sudden onset numbness extending from periumbilical region downwards throughout groin and bilateral lower extremities followed by weakness of bilateral lower extremities. Patient states he was moving some plants at home when he had sudden onset of numbness around his lower abdomen circling around him like a belt that quickly radiated into his groin and into bilateral lower extremities accompanied by weakness of bilateral lower extremities which resulted in his legs giving out from beneath him causing him to fall to the ground. Patient de nied having any dizziness or lightheadedness, headache, neck or back pain, or experiencing any pain in his abdomen, groin, or lower extremities. He denies hitting his head during the fall and denies having any loss of consciousness. But reports due to the sudden onset numbness and weakness he was unable to stand back up and had to have his call EMS for transfer to the hospital. Upon arrival to our facility, patient underwent evaluation in the emergency department. Vital signs upon arrival show blood pressure 165/97, heart rate 88, respiratory rate 18, temp 98.8 F, and SpO2 of 97% on room air. CT lumbar spine CT abdomen and pelvis was also negative for acute intra-abdominal process completed showing no evidence for spinal fracture, no evidence for significant spinal canal stenosis revealing severe right L5-S1 neuroforaminal stenosis and moderate bilateral L4-L5 neuroforaminal stenosis, revealing a right middle lobe pulmonary nodule 8 mm, prostamegaly, colonic diverticulosis, and bilateral adrenal myolipoma's. Labs completed and reviewed. CBC unremarkable. BMP showing hyperglycemia with blood glucose of 146. Liver profile normal findings. Urinalysis positive for glucose and ketones but negative for infection. Patient was admitted under services with consultation to neurology and orthospine surgery. MRI lumbar spine was completed showing no definitive evidence of disc herniation or significant spinal canal stenosis revealing minimal disc degeneration with associated osteoarthritic changes. Patient underwent extensive cervical spinal surgery on the evening of 03/20/2025 through 03/21/2025. 04/02/25: Patient seen and examined at bedside today in the ICU. He was intubated but off sedation and weaning parameters were being obtained. No acute events overnight. He denies any acute complaints today. 04/03/25: Patient evaluated at bedside. He remains in the ICU. He was extubated yesterday. He did well overnight, but today morning his SpO2 dropped to 80s and his BIPAP was put on 100% FiO2 briefly. Currently at 14/8/80%. He is awake and responds with a thumbs up. 04/04/25: Patient seen and examined today at bedside. He remains in the ICU . No acute events overnight. 04/05/25: Patient evaluated at bedside. He continues to be in the ICU and on Airvo. 04/06/25: Patient seen and examined at bedside today. He remains in the ICU and is on Airvo. Patient was on BiPAP overnight with settings of 14/8/80%. Review of systems: Pertinent positives and negatives as discussed in HPI, a complete review of systems was performed and all other systems are negative. Vitals: Signs Reviewed, SpO2 100% with 80% FiO2, Pulse 58 bpm Physical examination: General: nontoxic, no distress, appears at stated age, currently on Airvo Derm: Warm, dry Head: Atraumatic, normocephalic, symmetric Eyes: EOMI, no lid lag, anicteric sclera Mouth: No lip lesion, mucus membranes moist Cardiovascular: S1S2 reg, no murmur Lungs: Bilateral rhonchi, more prominent on the left, no accessory muscle use Abdominal: Soft, nontender to palpation, no appreciable organomegaly Ext: No gross muscle atrophy, no edema, no contractures Neuro: Awake and alert, flaccid paralysis is b/l LE Psych: Appropriate affect Data Reviewed Today: Labs: WBC 11.71, hemoglobin 12.3, sodium 132, bicarb 31, Glucose 145 Imaging: Chest Xray today shows elevated left diaphragm and left basilar atelectasis, stable from comparison Venous Doppler study shows right upper extremity ultrasound negative for DVT Assessment/Plan: Patient is a 64 year old male who presented with sudden onset numbness and weakness in bilateral lower extremities. He underwent extensive cervical decompression with discectomy and fusion. He was then intubated due to acute hypoxemic respiratory failure secondary to severe atelectasis and underlying pneumonia. Extubated on 04/02/25. Active: #. Acute hypoxemic respiratory failure secondary to severe atelectasis and mucous plugging status post bronchoscopy x 2 #. Suspected underlying pneumonia secondary to Serratia #. Leukocytosis, improving CT angio of chest shows markedly progressive left lung volume loss with marked atelectasis increasing suspicion for endobronchial obstruction/neoplasm and further evaluation may be indicated. Interval development of mild right lower lobe atelectasis. Bronchial washings culture showed positive for Serratia, nasal swab showed positive for Staph aureus, not MRSA Extubated on 04/02/25 Continue Airvo IV Solu-Medrol decreased to 40 mg every 8 hours, if clinically improving consider decreasing to BID in the next 1-2 days Continue DuoNebs 4 times daily and every 2 hours as needed Continue fluconazole 400 mg IVPB daily for 8 days(total 14 days) Meropenem discontinued Continue with Mucomyst,DuoNebs 4 times daily, every 2 hours as needed Encourage incentive spirometry Monitor CBC Pulm crit is following #. Cervical myelopathy secondary to severe spinal canal stenosis involving C7-T1 #. Status post extensive cervical decompression with discectomy at C7-T1 and fusion with extension of fusion from C3-C7 with new extension down to T3 #. Severe right L5-S1 neuroforaminal stenosis #. Moderate bilateral L4-L5 neuroforaminal stenosis Orthopedic surgery following status post extensive cervical decompression with dissecting at C7-T1 and fusion with extension of fusion from C3-C7 with new extension down to T3 Continue Solu-Medrol 40 mg IV every 8 hours Started on Cefazolin due to drainage at wound Continue inpatient rehab Resume lisinopril, hydralazine as needed Continue neurochecks every 4 hours and as needed. Maintain fall precautions Continue Samuels catheter management Continue Unna boot bilaterally to prevent foot drop PT/OT following Neurology consultation is appreciated Orthopedic surgery is following, Recommend increased mobilization with therapy and When medically stable clear, patient will be planning to be discharged to a spinal cord facility for rehabilitation. #. Type II tzc-lpopllp-ukhzuisse diabetes mellitus Hyperglycemia likely secondary to high-dose steroids being administered at this time. Continue Lantus to 50 units subcu daily as basal insulin Continue sliding scale insulin Continue premeal insulin 10 units #. Bilateral lower extremity edema Bilateral lower extremity Doppler ultrasound negative for DVT #. Hyponatremia Na 133, secondary to lasix vs steroid Monitor BMP Chronic: #. Hypertension #. Hyperlipidemia #. Obstructive sleep apnea #. BPH Continue lisinopril 40 mg p.o. daily, atorvastatin 40 mg p.o at bedtime, tamsulosin 0.4 mg p.o. daily, continue CPAP nightly and while napping. F: None E: Replete as required N: Regular diet A: Bed bound DVT prophylaxis: Lovenox 40 mg subcu daily Code status: Full code Anticipated discharge place: Pending clinical course Anticipated discharge time: Pending clinical course Dictation was produced using [employer] dictation software. please excuse any grammatical, word or spelling errors. Urban Hughes MD PGY-1 IM I have seen and evaluated the patient today. Discussed with the resident and agree with the residents finding and plan as documented in the resident's note. Changes highlighted in blue font. Objective - Vital Signs Vital signs: Vital Signs Temp 97.5 F L 04/06/25 04:00 Pulse 58 L 04/06/25 06:00 Resp 20 04/06/25 06:00 BP 121/82 04/06/25 06:00 Pulse Ox 100 04/06/25 06:00 FiO2 80 04/06/25 04:11 Intake & Output 04/05/25 04/05/25 04/06/25 06:59 18:59 06:59 Intake Total 553.3 960 110 Output Total 950 680 640 Balance -396.7 280 -530 Weight 109.1 kg 112.3 kg Intake: IV 153.3 240 110 Meropenem 1 gm In Sodium 33.3 100 Chloride 0.9% 100 ml @ 33 .3 mls/hr IVPB Q8HR [facility] Rx#:[id number] ceFAZolin 3 gm In Sodium 100 Chloride 0.9% 100 ml @ 200 mls/hr IVPB Q8H [facility] Rx#:[id number] kvo 120 40 110 Oral 400 720 Output: Urine 950 680 640 Other: Voiding Method Indwelling Catheter Indwelling Catheter Indwelling Catheter # Bowel Movements 1 1 - Labs CBC & Chem 7: 04/06/25 04:38 04/06/25 04:38 Labs: Abnormal Lab Results - Last 24 Hours (Table) 04/05/25 04/05/25 04/05/25 Range/Units 11:47 16:41 20:17 WBC (4.50-10.00) 10*3/uL RBC (4.40-5.60) 10*6/uL Hgb (13.0-17.0) g/dL Hct (39.6-50.0) % Plt Count (140-440) 10*3/uL Sodium (137-145) mmol/L Carbon Dioxide (22-30) mmol/L BUN (9-20) mg/dL Creatinine (0.66-1.25) mg/dL Glucose (74-99) mg/dL POC Glucose (mg/dL) 238 H 197 H 195 H (70-110) mg/dL Calcium (8.4-10.2) mg/dL 04/05/25 04/06/25 04/06/25 Range/Units 23:44 04:38 04:38 WBC 11.71 H (4.50-10.00) 10*3/uL RBC 4.12 L (4.40-5.60) 10*6/uL Hgb 12.3 L (13.0-17.0) g/dL Hct 37.5 L (39.6-50.0) % Plt Count 100 L (140-440) 10*3/uL Sodium 132 L (137-145) mmol/L Carbon Dioxide 31 H (22-30) mmol/L BUN 28 H (9-20) mg/dL Creatinine 0.50 L (0.66-1.25) mg/dL Glucose 133 H (74-99) mg/dL POC Glucose (mg/dL) 170 H (70-110) mg/dL Calcium 8.2 L (8.4-10.2) mg/dL 04/06/25 Range/Units 06:17 WBC (4.50-10.00) 10*3/uL RBC (4.40-5.60) 10*6/uL Hgb (13.0-17.0) g/dL Hct (39.6-50.0) % Plt Count (140-440) 10*3/uL Sodium (137-145) mmol/L Carbon Dioxide (22-30) mmol/L BUN (9-20) mg/dL Creatinine (0.66-1.25) mg/dL Glucose (74-99) mg/dL POC Glucose (mg/dL) 145 H (70-110) mg/dL Calcium (8.4-10.2) mg/dL Microbiology - Last 24 Hours (Table) 03/26/25 15:53 Acid Fast Bacilli Smear - Preliminary Bronchoalviolar Lavage - Left Acid Fast Bacilli Culture - Preliminary
[2025-04-06 16:31] LABS: Glucose,Whole Blood 192 mg/dL (70-110)
[2025-04-06 20:51] LABS: Glucose,Whole Blood 163 mg/dL (70-110)
[2025-04-07 04:59] LABS: African American GFR (CKD) >90 (>60 ml/min/1.73 sqM); Anion Gap 1 mmol/L; Blood Urea Nitrogen 21 mg/dL (9-20); Calcium 7.8 mg/dL (8.4-10.2); Carbon Dioxide 28 mmol/L (22-30); Chloride 104 mmol/L (98-107); Glucose 125 mg/dL (74-99); HCT 34.8 % (39.6-50.0); HGB 11.9 g/dL (13.0-17.0); MCH 30.6 pg (27.0-32.0); MCHC 34.2 g/dL (32.0-37.0); MCV 89.5 fL (80.0-97.0); Non-African American GFR(CKD) >90 (>60 ml/min/1.73 sqM); Potassium 3.9 mmol/L (3.5-5.1); RBC 3.89 10*6/uL (4.40-5.60); RDW 14.2 % (11.5-14.5); Sodium 133 mmol/L (137-145); WBC 12.77 10*3/uL (4.50-10.00)
[2025-04-07 06:33] LABS: Platelet Count 99 10*3/uL (140-440)
--- NOTE | 2025-04-07 07:10 | XR ---
EXAMINATION TYPE: XR chest 1V portable DATE OF EXAM: 04/07/2025 3:57 AM COMPARISON: Multiple radiographs, with the most recent on 04/06/2025 TECHNIQUE: XR chest 1V portable Portable AP radiograph of the chest. CLINICAL INDICATION:Male, 65 years old with history of assess lungs; shortness of breath FINDINGS: Lungs/Pleura: Right lung is clear. No pneumothorax. Chronic elevation of the left hemidiaphragm with left basilar opacities and small pleural effusion. Pulmonary vascularity: Unremarkable. Heart/mediastinum: Cardiomediastinal silhouette is unremarkable. Musculoskeletal: No acute osseous pathology. Postsurgical changes of the cervicothoracic spine. Other findings: Cholecystectomy clips in the right upper quadrant. IMPRESSION: Small left pleural effusion with adjacent opacities likely representing atelectasis. Chronic elevatio n of the left hemidiaphragm. [facility], , 04/07/2025 7:08 AM
--- NOTE | 2025-04-07 09:27 | P.PN ---
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 Wheeler) approximately 2 months ago, migraine headaches, depression. Presented to the emergency department with a chief complaint of sudden onset numbness extending from periumbilical region downwards throughout groin and bilateral lower extremities followed by weakness of bilateral lower extremities. Patient states he was moving some plants at home when he had sudden onset of numbness around his lower abdomen circling around him like a belt that quickly radiated into his groin and into bilateral lower extremities accompanied by weakness of bilateral lower extremities which resulted in his legs giving out from beneath him causing him to fall to the ground. Patient de nied having any dizziness or lightheadedness, headache, neck or back pain, or experiencing any pain in his abdomen, groin, or lower extremities. He denies hitting his head during the fall and denies having any loss of consciousness. But reports due to the sudden onset numbness and weakness he was unable to stand back up and had to have his call EMS for transfer to the hospital. Upon arrival to our facility, patient underwent evaluation in the emergency department. Vital signs upon arrival show blood pressure 165/97, heart rate 88, respiratory rate 18, temp 98.8 F, and SpO2 of 97% on room air. CT lumbar spine CT abdomen and pelvis was also negative for acute intra-abdominal process completed showing no evidence for spinal fracture, no evidence for significant spinal canal stenosis revealing severe right L5-S1 neuroforaminal stenosis and moderate bilateral L4-L5 neuroforaminal stenosis, revealing a right middle lobe pulmonary nodule 8 mm, prostamegaly, colonic diverticulosis, and bilateral adrenal myolipoma's. Labs completed and reviewed. CBC unremarkable. BMP showing hyperglycemia with blood glucose of 146. Liver profile normal findings. Urinalysis positive for glucose and ketones but negative for infection. Patient was admitted under services with consultation to neurology and orthospine surgery. MRI lumbar spine was completed showing no definitive evidence of disc herniation or significant spinal canal stenosis revealing minimal disc degeneration with associated osteoarthritic changes. Patient underwent extensive cervical spinal surgery on the evening of 03/20/2025 through 03/21/2025. 04/02/25: Patient seen and examined at bedside today in the ICU. He was intubated but off sedation and weaning parameters were being obtained. No acute events overnight. He denies any acute complaints today. 04/03/25: Patient evaluated at bedside. He remains in the ICU. He was extubated yesterday. He did well overnight, but today morning his SpO2 dropped to 80s and his BIPAP was put on 100% FiO2 briefly. Currently at 14/8/80%. He is awake and responds with a thumbs up. 04/04/25: Patient seen and examined today at bedside. He remains in the ICU . No acute events overnight. 04/05/25: Patient evaluated at bedside. He continues to be in the ICU and on Airvo. 04/06/25: Patient seen and examined at bedside today. He remains in the ICU and is on Airvo. Patient was on BiPAP overnight with settings of 14/8/80%. 04/07/25: Patient evaluated at bedside in the ICU. He remains on the Airvo, with BIPAP use overnight. Patient will be transferred to a bedside chair later today. Review of systems: Pertinent positives and negatives as discussed in HPI, a complete review of systems was performed and all other systems are negative. Vitals: Signs Reviewed, SpO2 100% with 80% FiO2, Pulse 58 bpm Physical examination: General: nontoxic, no distress, appears at stated age, currently on Airvo Derm: Warm, dry Head: Atraumatic, normocephalic, symmetric Eyes: EOMI, no lid lag, anicteric sclera Mouth: No lip lesion, mucus membranes moist Cardiovascular: S1S2 reg, no murmur Lungs: Bilateral rhonchi, more prominent on the left, no accessory muscle use Abdominal: Soft, nontender to palpation, no appreciable organomegaly Ext: No gross muscle atrophy, no edema, no contractures Neuro: Awake and alert, flaccid paralysis is b/l LE, increased sensation from abdomen down to knees bilaterally and on right foot toes Psych: Appropriate affect Data Reviewed Today: Labs: WBC 12.77, hemoglobin 11.9, sodium 133, glucose 125 Imaging: Chest Xray today shows small left pleural effusion with adjacent opacities likely care support representative atelectasis, chronic elevation of the left hemidiaphragm Assessment/Plan: Patient is a 64 year old male who presented with sudden onset numbness and weakness in bilateral lower extremities. He underwent extensive cervical decompression with discectomy and fusion. He was then intubated due to acute hypoxemic respiratory failure secondary to severe atelectasis and underlying pneumonia. Extubated on 04/02/25. Patient continues to be in the ICU and on Airvo with BIPAP use overnight. Active: #. Acute hypoxemic respiratory failure secondary to severe atelectasis and mucous plugging status post bronchoscopy x 2 #. Suspected underlying pneumonia secondary to Serratia #. Leukocytosis, improving CT angio of chest shows markedly progressive left lung volume loss with marked atelectasis increasing suspicion for endobronchial obstruction/neoplasm and fu rther evaluation may be indicated. Interval development of mild right lower lobe atelectasis. Bronchial washings culture showed positive for Serratia, nasal swab showed positive for Staph aureus, not MRSA Extubated on 04/02/25 Continue Airvo IV Solu-Medrol decreased to 40 mg every 8 hours, if clinically improving consider decreasing to BID in the next 1-2 days Continue DuoNebs 4 times daily and every 2 hours as needed Continue fluconazole 400 mg IVPB daily for 8 days(total 14 days) Meropenem discontinued Continue with Mucomyst,DuoNebs 4 times daily, every 2 hours as needed Encourage incentive spirometry Monitor CBC Pulm crit is following #. Cervical myelopathy secondary to severe spinal canal stenosis involving C7-T1 #. Status post extensive cervical decompression with discectomy at C7-T1 and fusion with extension of fusion from C3-C7 with new extension down to T3 #. Severe right L5-S1 neuroforaminal stenosis #. Moderate bilateral L4-L5 neuroforaminal stenosis Orthopedic surgery following status post extensive cervical decompression with dissecting at C7-T1 and fusion with extension of fusion from C3-C7 with new extension down to T3 Continue Solu-Medrol 40 mg IV every 8 hours Started on Cefazolin due to drainage at wound Continue inpatient rehab Resume lisinopril, hydralazine as needed Continue neurochecks every 4 hours and as needed. Maintain fall precautions Continue Samuels catheter management Continue Unna boot bilaterally to prevent foot drop Neurology consultation is appreciated Orthopedic surgery is following, recommend his incision site remains stable without evidence of active infection. He will keep his prophylactic antibiotics for another day. Recommend increased mobilization with therapy PT/OT following, when medically stable clear patient will be planning to be discharged to a spinal cord facility for rehabilitation. #. Type II cyn-ftzmgsv-vvgvkogwo diabetes mellitus Hyperglycemia likely secondary to high-dose steroids being administered at this time. Continue Lantus to 50 units subcu daily as basal insulin Continue sliding scale insulin Continue premeal insulin 10 units #. Bilateral lower extremity edema Bilateral lower extremity Doppler ultrasound negative for DVT #. Hyponatremia Na 133, secondary to lasix vs steroid Monitor BMP Chronic: #. Hypertension #. Hyperlipidemia #. Obstructive sleep apnea #. BPH Continue lisinopril 40 mg p.o. daily, atorvastatin 40 mg p.o at bedtime, tamsulosin 0.4 mg p.o. daily, continue CPAP nightly and while napping. F: None E: Replete as required N: Regular diet A: Bed bound DVT prophylaxis: Lovenox 40 mg subcu daily Code status: Full code Anticipated discharge place: Pending clinical course Anticipated discharge time: Pending clinical course Dictation was produced using [employer] dictation software. please excuse any g rammatical, word or spelling errors. Urban Hughes MD PGY-1 IM I have seen and evaluated the patient today. Discussed with the resident and agree with the residents finding and plan as documented in the resident's note. Changes highlighted in blue font. Objective - Vital Signs Vital signs: Vital Signs Temp 97.9 F 04/07/25 00:00 Pulse 63 04/07/25 05:00 Resp 15 04/07/25 05:00 BP 123/74 04/07/25 05:00 Pulse Ox 96 04/07/25 04:00 FiO2 80 04/07/25 04:24 Intake & Output 04/06/25 04/06/25 04/07/25 06:59 18:59 06:59 Intake Total 110 120 210 Output Total 640 985 735 Balance -530 -755 -525 Weight 112.3 kg 112.3 kg 113 kg Intake: IV 110 120 110 kvo 110 120 110 Intake, IV Titration 100 Amount ceFAZolin 3 gm In Sodium 100 Chloride 0.9% 100 ml @ 200 mls/hr IVPB Q8H [facility] Rx#:[id number] Output: Urine 640 985 735 Other: Voiding Method Indwelling Catheter Indwelling Catheter Indwelling Catheter - Labs CBC & Chem 7: 04/07/25 04:01 04/07/25 04:01 Labs: Abnormal Lab Results - Last 24 Hours (Table) 04/06/25 04/06/25 04/06/25 Range/Units 11:14 16:29 20:49 WBC (4.50-10.00) 10*3/uL RBC (4.40-5.60) 10*6/uL Hgb (13.0-17.0) g/dL Hct (39.6-50.0) % Plt Count (140-440) 10*3/uL Sodium (137-145) mmol/L BUN (9-20) mg/dL Creatinine (0.66-1.25) mg/dL Glucose (74-99) mg/dL POC Glucose (mg/dL) 122 H 192 H 163 H (70-110) mg/dL Calcium (8.4-10.2) mg/dL 04/07/25 04/07/25 Range/Units 04:01 04:01 WBC 12.77 H (4.50-10.00) 10*3/uL RBC 3.89 L (4.40-5.60) 10*6/uL Hgb 11.9 L (13.0-17.0) g/dL Hct 34.8 L (39.6-50.0) % Plt Count 99 L (140-440) 10*3/uL Sodium 133 L (137-145) mmol/L BUN 21 H (9-20) mg/dL Creatinine 0.35 L (0.66-1.25) mg/dL Glucose 125 H (74-99) mg/dL POC Glucose (mg/dL) (70-110) mg/dL Calcium 7.8 L (8.4-10.2) mg/dL
--- NOTE | 2025-04-07 09:44 | P.PN ---
Subjective Progress Note Date: 04/07/25 Patient is a very pleasant 65-year-old male who is seen examined at bedside in the ICU for follow-up evaluation of the cervical spine. He is status post posterior cervical decompression discectomy at C7-T1 with extension of fusion from C7 down to T3. He has noticed improvement in sensation to the right lower extremity. He states that he has feeling down to his great toe. He continues to keep his hard cervical collar intact. He is not experiencing any cervical pain. He has good range of motion of his bilateral upper extremities except for his shoulders bilaterally. 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 He is awake and alert. He is able to answer questions appropriately. He continues to have difficulty from a respiratory standpoint but has had some improvement. He has been extubated. Last note from pulmonology states patient still continues ICU placement. He continues to be on BiPAP. He continues to be seen exam by multiple medical providers including pulmonology and medicine. Objective - Vital Signs Vital signs: Vital Signs Temp 97.9 F 04/07/25 08:00 Pulse 61 04/07/25 09:00 Resp 17 04/07/25 09:00 BP 111/67 04/07/25 09:00 Pulse Ox 94 L 04/07/25 09:00 FiO2 85 04/07/25 08:00 Intake & Output 04/06/25 04/07/25 04/07/25 18:59 06:59 18:59 Intake Total 120 210 20 Output Total 985 735 200 Balance -865 -525 -180 Weight 112.3 kg 113 kg Intake: IV 120 110 20 kvo 120 110 20 Intake, IV Titration 100 Amount ceFAZolin 3 gm In Sodium 100 Chloride 0.9% 100 ml @ 200 mls/hr IVPB Q8H [facility] Rx#:[id number] Output: Urine 985 735 200 Other: Voiding Method Indwelling Catheter Indwelling Catheter Indwelling Catheter - Exam This is a pleasant 65-year-old male in no acute distress. He is currently on BiPAP. He is alert and oriented at this time. He has fairly good motion to the elbows, wrists and fingers. He is unable to move at the shoulders independently. Exam of the lower extremities reveals improved sensation to the right lower extremity. He can sense fine touch down the leg to the great toe. He has minimal sensation to the lateral foot. On the left lower extremity he has sensation to the knee. He is unable to move his lower extremities independently. - Labs CBC & Chem 7: 04/07/25 04:01 04/07/25 04:01 Labs: Abnormal Lab Results - Last 24 Hours (Table) 04/06/25 04/06/25 04/06/25 Range/Units 11:14 16:29 20:49 WBC (4.50-10.00) 10*3/uL RBC (4.40-5.60) 10*6/uL Hgb (13.0-17.0) g/dL Hct (39.6-50.0) % Plt Count (140-440) 10*3/uL Sodium (137-145) mmol/L BUN (9-20) mg/dL Creatinine (0.66-1.25) mg/dL Glucose (74-99) mg/dL POC Glucose (mg/dL) 122 H 192 H 163 H (70-110) mg/dL Calcium (8.4-10.2) mg/dL 04/07/25 04/07/25 Range/Units 04:01 04:01 WBC 12.77 H (4.50-10.00) 10*3/uL RBC 3.89 L (4.40-5.60) 10*6/uL Hgb 11.9 L (13.0-17.0) g/dL Hct 34.8 L (39.6-50.0) % Plt Count 99 L (140-440) 10*3/uL Sodium 133 L (137-145) mmol/L BUN 21 H (9-20) mg/dL Creatinine 0.35 L (0.66-1.25) mg/dL Glucose 125 H (74-99) mg/dL POC Glucose (mg/dL) (70-110) mg/dL Calcium 7.8 L (8.4-10.2) mg/dL Assessment and Plan (1) Cervical myelopathy Current Visit: Yes Status: Acute Priority: High Code(s): G95.9 - DISEASE OF SPINAL CORD, UNSPECIFIED SNOMED Code(s): 779850724 (2) Leg weakness Current Visit: Yes Status: Acute Code(s): R29.898 - OTH SYMPTOMS AND SIGNS INVOLVING THE MUSCULOSKELETAL SYSTEM SNOMED Code(s): 204635250 (3) Status post cervical spinal fusion Current Visit: Yes Status: Acute Code(s): Z98.1 - ARTHRODESIS STATUS SNOMED Code(s): 3034591462611 Plan: The clinical findings are discussed with the patient. He will continue with his care with multiple medical specialties.
[2025-04-07 11:13] LABS: Glucose,Whole Blood 99 mg/dL (70-110)
--- NOTE | 2025-04-07 12:07 | P.PN ---
Subjective Progress Note Date: 04/07/25 Principal diagnosis: Leg weakness. This is a 64-year-old male patient was undergone a C 7 T1 discectomy, done posteriorly with wide laminectomy and foraminotomy and partial facetectomy. The patient was experiencing cervical myelopathy with severe bilateral lower extremity weakness and T8 paresthesia. The patient has previous history of cervical spine fusion C2-C7. The patient was found to have a large herniated disc C7-T1 with severe spinal cord stenosis and based on that the patient was taken to the operating room and underwent a C7-T1 discectomy on 03/21/2025. The patient has become progressively more hypoxic. Currently he is on Airvo at 60 L and FiO2 of 90%. His current pulse ox is in order of 90 to 93%. Slightly tachycardic. Blood pressure is also soft at 89/62. Based on worsening hypoxemia, CT of the chest was done and the patient was found to have signi ficant volume loss in the left lung compared to the right. There is marked volume loss and atelectasis in addition to an area of consolidation in the left upper lobe and elevation of the left hemidiaphragm in addition to significant gastric distention. The patient has dilated air in the stomach and colon. Blood work shows a white cell count of 14, hemoglobin 12.4 and a platelet count of 175. Sodium levels at 137, bicarb is at 23, potassium level is at 4.3 with a chloride of 102. BUN 23 with a creatinine of 0.9. The patient is resting comfortably in bed. He is wearing a hard neck collar. He is reporting some mild shortness of breath even at rest. He is tolerating the Airvo. He is currently on IV Solu-Medrol 100 mg every 6 hours post neck surgery. He is also on IV fluids with l normal saline at rate of 75 cc an hour. Comorbidities include hypertension, hyperlipidemia, diabetes mellitus type 2, obstructive sleep apnea maintained on CPAP therapy on outpatient basis On today's evaluation of 03/23/25, patient is still on the BiPAP pressure of 14 over 6 cm of water and FiO2 has been weaned down to 65%. The patient's abdomen seems to be less distended. He had 2 bowel movements and the patient is also passing flatus. Fluid balance +223 cc over the past 24 hours and the patient remains on normal saline at a rate of 75 cc an hour. Neurologically, unchanged and the patient has absent motor function lower extremities bilaterally. He is on broad-spectrum antibiotics and the patient is currently on Zosyn vancomycin combination. Follow-up chest x-ray shows some interval improvement in aeration in the left lung base. Lung volumes in the left remain small and there is some ongoing atelectatic change at left lower lobe. The patient's white cell count is 11, hemoglobin 11.3 and a platelet count of 180. Electrolytes are all within normal limits. BUN is 40 with a creatinine of 1.05. The patient is able to communicate. He is alert and awake. Denies having any specific complaints. Still wearing a hard neck collar. 03/24/2025, the patient is laying flat in bed and is currently on a BiPAP at a pressure of 14/6 with an FiO2 of 75% overnight and Airvo during the day. He remains on normal saline at rate of 75 cc an hour. Chest x-ray still showing left lower lobe consolidation. Abdomen is soft. He had 3 bowel movements. He is on Lantus insulin. The patient's mentation is awake and alert. Nevertheless, he continues to have profound weakness in the lower extremity and he remains paraplegic. Remains on IV Solu-Medrol. Blood sugars are elevated and he remains on Lantus 15 units daily and NovoLog sliding scale coverage. The white cell count 11.9, hemoglobin 11.3 and a platelet count of 201. BUN 34 with a creatinine of 0.8. Sodium levels at 136. Blood sugars up to 82. He is postop day #4 following an open decompression and fusion of C7-T1 surgery was done due to a large disc herniation and spinal cord injury. He is also status post fusion and extension from prior fusion C2-7 and near extension fusion down to T3. He is unable to move his legs still. Samuels catheter still in place. Using incentive spirometer. Afebrile. 03/25/2025, the patient is being seen for a follow-up. Repeat chest x-ray was done and shows ongoing volume loss and atelectasis in the left lung base. I also performed an ultrasound of the chest and there is no sizable pleural effusion for thoracentesis. Findings are more consistent with consolidation/atelectasis. Remains on Airvo at 60 L and FiO2 of 90%. Incentive spirometer. Overnight, using BiPAP pressure of 14/6 and use of water with an FiO2 of 80%. Remains in normal Saint rate of 75 cc an hour. Fluid balance is +550 cc over the past 24 hours. No respiratory difficulties. The white cell count of 12. Hemoglobin is 10.9. Platelet count is 210. BUN is 32 with a creatinine of 0.8. Sodium levels at 138 and potassium levels of 4.2. Remains on Zosyn and vancomycin. Neurologically unchanged and the patient continues to be paraplegic. Patient was seen today on 03/26/2025, patient remains in the ICU, he is on Airvo at 90% and 60 L flow, patient is generally weak, alert and appropriate, IV fluid at 75 cc/h, continues to have weakness from the waist down. Patient had cervical spine surgery postoperative day #6. Chest x-ray showed complete opacification of the left lung consistent with mucous plugging involving the left mainstem bronchus. Hence I discussed this with the patient today, patient needs to be bronchoscope, needs to have extraction of mucous plugs. Considering the patient is marginal at best, will need to be intubated and placed on mechanical ventilation for the procedure. Based on the findings we will decide whether the patient needs to remain on mechanical ventilation after bronchoscopy or not. Most likely he will remain ventilated after the bronchoscopy. Patient has a bit of leukocytosis with WBC of 13.3 hemoglobin 11.3 electrolytes are normal renal profile is normal. Nasal screen has been positive for MSSA not MRSA. Patient was seen today on 03/27/2025, patient remains intubated and mechanically ventilated, kept him on mechanical ventilation after his bronchoscopy yesterday and suctioning of mucous plugs from the left mainstem bronchus and left lung. Left lung continues to show good inflation, minimal left lower lobe atelectasis, patient is on assist-control rate of 18 tidal volume 550 FiO2 50% and PEEP of 8 ABG today showed a pO2 of 84 pCO2 37 pH of 7.41. Patient is also on propofol at 50 mg/kg/min IV fluids at 75 cc/h on antibiotics in the form of Zosyn and vancomycin, antibiotics to be changed once we have the final culture from the BA L. I plan to wean the patient today, possibly consider placing him on BiPAP 12/6/50% assuming he tolerates weaning and he passes his weaning parameters. Patient is awake, follows instructions, although he is still on propofol. WBC count is 14.48 hemoglobin 10.8 electrolytes are normal, BUN is 29 creatinine 0.7 Patient was seen today on 03/28/2025, patient was extubated yesterday, had to be placed on BiPAP to avoid atelectasis again of the left lung and mucous plugging patient has very poor cough, cannot clear his secretions, and his chest x-ray today is beginning to show early atelectasis in the left lower lobe, questionable effusion but ultrasound did not show much fluid. I believe it is all a picture of atelectasis involving the left lower lobe and I am afraid that the patient may have reopacification of the left lung in the next 24 hours. In the meantime I will continue patient on BiPAP, will recommend chest PT, N- acetylcysteine and albuterol, Mucinex, and hopefully we can avoid another bronchoscopy. Otherwise if the patient opacifies left lung again, may have to be bronchoscope again. And if we do I will keep him longer on mechanical ventilation. Patient remains on antibiotics/broad-spectrum he is WBC count is 19.36 hemoglobin is 10.7 electrolytes are normal renal profile is normal. Seen today on 03/29/2025, patient remains in the ICU, chest x-ray is showing worsening and he is again having near complete opacification of the left lung. Apparently the patient is developing mucous plugging again involving the left mainstem bronchus and the cultures from his last BAL came back showing Serratia marcescens. Considering the patient's critical illness, I am transitioning Zosyn to Merrem for better coverage of Serratia. Sensitivity is still pending on the organism. But empirically Merrem would be a better choice for Serratia marcescens for the time being. Patient still on BiPAP at 14/6/60%, and considering his abnormal chest x-ray, I am recommending bronchoscopy again and this has to be again done with the patient intubated as his O2 saturation is marginal even on 60% BiPAP. Patient looks comfortable, he is not in distress. Continues to have leukocytosis with WC of 23.23 hemoglobin 11.2 basic metabolic profile is normal renal profile is normal continues to have cervical collar in place. Patient was seen today on 03/30/2025, remains in the ICU, intubated and mechanically ventilated, patient is on assist-control rate of 18 tidal volume 550 FiO2 50% PEEP of 10 ABG showed a pO2 of 122 pCO2 37 pH of 7.47 hence FiO2 was cut down to 40%. Remains on Merrem remains on propofol at 40 mcg/kg/min and on Versed 1 mg/h. Patient is sedated, does not seem to be in any distress, chest x-ray is showing slight worsening in the left lower lobe, but not severe enough to justify bronchoscopy again. However considering this I am not planning to extubate the patient today as if extubated he will most likely end up requiring bronchoscopy again. Patient had positive cultures for Serratia marcescens, and is now on Merrem. Labs today were reviewed patient has leukocytosis with WBC count of 19.7 hemoglobin 11.3, basic metabolic profile is normal renal profile is normal patient is on nutritional support/enteral feeding. Chest x-ray today is a bit worrisome hence no plans to wean and extubate today. Patient was seen today on 03/31/2025, remains in the ICU, intubated and mechanically ventilated. Patient is on assist-control rate of 18 tidal volume 5 50 FiO2 40% and PEEP of 10 ABG on 45% showed a pO2 of 86 pCO2 42 pH of 7.44. Chest x-ray is showing left lower lobe atelectasis/airspace disease involving the left lower lobe hence I was concerned about recollapsing of the left lung, bronchoscopy was performed, and the secretions noted in the left lower lobe with were very minimal. Did not require lavage, there was not enough secretions to do lavage. Hence the patient was kept intubated mechanically ventilated, he is now on propofol at 45 mcg/kg/min is on Versed 1 mg/h and is receiving vital HP at 32 cc/h. Remains on fluconazole, remains on Merrem. Continues to have a bit of leukocytosis with WBC of 19.12 hemoglobin 11.7 electrolytes are normal, renal profile is normal. Patient was seen today on 04/01/2025, remains in the ICU, remains intubated and mechanically ventilated. Patient is sedated with propofol at 45 mcg/kg/min and Versed 1 mg/h. Patient is calm he is on assist-control mode of mechanical ventilation rate 18 tidal volume 550 FiO2 40% PEEP that ABG showed a PO2 of 91 pCO2 37 pH of 7.52 chest x-ray showed improvement in his left lower lobe atelectasis but he does have bilateral pleural effusions has I recommended a d ose of Lasix 40 mg IV push x 1 was given. Considering his ABG is better considering his chest x-ray is showing improvement, I recommended a trial of weaning. However on pressure support and CPAP, his ABG was marginal with a pO2 of 61 pCO2 40 pH of 7.51, hence I felt the patient is not ready to be weaned especially with relatively low pO2 of 61. And I felt the patient should be back on sedation and back on assist-control mode of mechanical ventilation. In the meantime patient remains on nutritional support, remains in GI prophylaxis: And again he received a dose of Lasix earlier today for what seems to be bilateral pleural effusions. Continues to have leukocytosis with WBC count of 19.4 hemoglobin 11.5 electrolytes are normal, renal profile is normal blood sugar is 245 Patient was seen today on 04/02/2025, remains in the ICU, intubated and mechanically ventilated. Remains on the same ventilator settings, is on assist- control mode of mechanical ventilation, ABG today showed a pO2 of 103 pCO2 34 pH of 7.57 chest x-ray is showing improvement in his left-sided opacity much better today compared to the last few days, WBC count remains elevated at 21.02 hemoglobin is 11.7 electrolytes are normal, renal profile is normal. Blood sugar is 286. Considering the improvement noted on the chest x-ray, patient will be given another weaning trial today, and I will discontinue his sedation, placed patient on pressure support of 12 and CPAP, his PEEP is down to 6. Patient will be weaned and if tolerated we could proceed to extubation. Otherwise may keep patient mechanically ventilated again for another day. In the meantime he is receiving Merrem for his Serratia marcescens pneumonia. Progress note dated April 03, 2025. This is a 64-year-old male who was admitted back on March 18, with leg weakness, and cervical myelopathy. On day 13, the patient had a cervical decompression an d fusion, from C7-T1. The patient has been in the intensive care unit, pretty much the entire time, with intubation, and extubation x 2. The patient is also had bronchoscopy x 2. He continues on meropenem and Diflucan. He is on BiPAP, with settings of 14/8, and 80%. He is getting saline at KVO. Current laboratory data includes a white count of 20.3, hemoglobin 11.8, hematocrit 36.5, and a platelet count of 123,000. Sodium 133, potassium 4.2, chlorides 103, CO2 28, BUN 29, creatinine 0.43. Glucose is 171. Calcium is 8.3. Bronchoscopy and washings from March 26 were positive for Serratia marcescens. Chest x-ray, shows left basilar opacity consistent with atelectasis, and/or effusion. The chest x-ray in my opinion is improved compared to the prior 1. Progress note dated April 04, 2025. 64-year-old male admitted back on March 18 with leg weakness, and cervical myelopathy. On March 20, the patient had a cervical decompression and fusion, from C7-T1. The patient has been in the intensive care unit, the entire time, with intubation and extubation x 2. The patient also had bronchoscopy, with BAL x 2. Currently, the patient is seen today in room 252. The patient is currently on Airvo, 60 L/min with an FiO2 of 60%. He is getting saline to KVO. At this point, the meropenem can be discontinued. White count 17.1, hemoglobin 11.8, hematocrit 36, platelet count 119,000. Sodium 133, potassium 4.1, chlorides 102, CO2 31, BUN 29, creatinine 0.47. Glucose is 140. Calcium is 8.3 . Bronchoscopy, from March 26, was positive for Serratia marcescens. Chest x-ray is stable, and is largely unchanged. Progress note dated April 05, 2025. 64-year-old male admitted back on March 18 with leg weakness and cervical myelopathy. 2 days later on March 20, the patient had a cervical decompression and fusion, from C7-T1. The patient has been in the intensive care unit, the entire time, and has been intubated and extubated twice, and as well, has had 2 bronchoscopies, with BAL's. He is seen again in room 252. He is currently on Airvo. Settings include 60 L/min with an FiO2 of 70%. Is not receiving any IV fluids. Today's chest x-ray is a bit worse, showing more significant collapse of the left lower lobe. The patient does have an incentive spirometer, and a flutter valve, and I encouraged him to use it on a regular basis. His cough is very weak. White count is 12.6, hemoglobin 12.1, hematocrit 37.8, platelet count is 102,000. Sodium 131, potassium 4.2, chlorides 102, CO2 27, BUN 29, creatinine 0.38. Glucose 154. Calcium 8.2. Progress note dated April 06, 2025. 64-year-old male seen again in room 252. The patient was admitted back on March 18 with leg weakness, and cervical myelopathy. On March 20, the patient had a cervical decompression and fusion, from C7-T1. The patient has been in the intensive care unit, the entire time. The patient has been on and off the ScaleIO ventilator x 2, and has had bronchoscopy x 2. Currently he is resting comfortably. He continues on Airvo. Settings include 60 L/min with an FiO2 of 85%. The patient is getting saline at 10 cc an hour. He does use BiPAP at nighttime, with settings of 14/8, and 80%. His right upper extremity is edematous, and we will do an ultrasound. He continues on Ancef and fluconazole. The Ancef was started by the back surgeon. White count is 11.7, hemoglobin 12.3, hematocrit 37.5, platelet count of 100,000. Sodium 132, potassium 3.9, chloride 79, CO2 31, BUN 28, creatinine 0.5. Glucose is 145. Calcium is 8.2. Chest x-ray is largely unchanged, and stable. Right upper extremity Doppler was negative for DVT. Progress note dated April 07, 2025. 65-year-old male who was seen again in room 252. The patient continues on Airvo, 60 L/min, with an FiO2 of 85%. In addition, he is getting saline at KVO. He uses BiPAP at nighttime, with settings of 14/8, and 80%. Usually from 10 PM to 7 AM. Clinically, he is doing about the same. Current laboratory data includes a white count of 12.8, hemoglobin 11.9, hematocrit 34.8, and a platelet count of 99,000. Sodium 133, potassium 3.9, chlorides 104, CO2 28, BUN 21, creatinine 0.35. Glucose is 99. Calcium is 7.8. Chest x-ray shows a small left-sided pleural effusion, with adjacent opacities, representing atelectasis. There is chronic elevation of the left diaphragm. Objective - Vital Signs Vital signs: Vital Signs Temp 97.9 F 04/07/25 08:00 Pulse 70 04/07/25 11:45 Resp 18 04/07/25 11:00 BP 122/70 04/07/25 11:00 Pulse Ox 95 04/07/25 11:00 FiO2 85 04/07/25 11:36 Intake & Output 04/06/25 04/07/25 04/07/25 18:59 06:59 18:59 Intake Total 120 210 40 Output Total 985 735 450 Balance -865 -525 -410 Weight 112.3 kg 113 kg Intake: IV 120 110 40 kvo 120 110 40 Intake, IV Titration 100 Amount ceFAZolin 3 gm In Sodium 100 Chloride 0.9% 100 ml @ 200 mls/hr IVPB [facility] Rx#:[id number] Output: Urine 985 735 450 Other: Voiding Method Indwelling Catheter Indwelling Catheter Indwelling Catheter - Exam No acute distress, oriented 3. The patient is currently on Airvo. HEENT examination is grossly unremarkable. Neck supple. Full range of motion. No adenopathy thyromegaly or neck vein distention. Cardiovascular examination reveals regular rhythm rate. S1-S2 normal. No S3 or S4. No discernible murmur noted. Heart sounds are distant. Lungs reveal mostly clear breath sounds. Scattered rhonchi. No wheezes or crackles. Breath sounds equal bilaterally. Abdomen soft bowel sounds are heard. No masses or tenderness. Extremities are intact. No cyanosis clubbing or edema. Right upper extremity is edematous. Skin is without rash or lesion. Neurologic examination is brief but nonfocal. - Labs CBC & Chem 7: 04/07/25 04:01 04/07/25 04:01 Labs: Abnormal Lab Results - Last 24 Hours (Table) 04/06/25 04/06/25 04/07/25 Range/Units 16:29 20:49 04:01 WBC 12.77 H (4.50-10.00) 10*3/uL RBC 3.89 L (4.40-5.60) 10*6/uL Hgb 11.9 L (13.0-17.0) g/dL Hct 34.8 L (39.6-50.0) % Plt Count 99 L (140-440) 10*3/uL Sodium (137-145) mmol/L BUN (9-20) mg/dL Creatinine (0.66-1.25) mg/dL Glucose (74-99) mg/dL POC Glucose (mg/dL) 192 H 163 H (70-110) mg/dL Calcium (8.4-10.2) mg/dL 04/07/25 Range/Units 04:01 WBC (4.50-10.00) 10*3/uL RBC (4.40-5.60) 10*6/uL Hgb (13.0-17.0) g/dL Hct (39.6-50.0) % Plt Count (140-440) 10*3/uL Sodium 133 L (137-145) mmol/L BUN 21 H (9-20) mg/dL Creatinine 0.35 L (0.66-1.25) mg/dL Glucose 125 H (74-99) mg/dL POC Glucose (mg/dL) (70-110) mg/dL Calcium 7.8 L (8.4-10.2) mg/dL Assessment and Plan Assessment: Acute hypoxemic respiratory failure, secondary to recurrent left lung collapse, S/P bronchoscopy x 2. History of Serratia marcescens pneumonia. S/P bronchoscopy x 2. Severe spinal canal stenosis at C7-T1, S/P decompression/fusion. Obstructive sleep apnea syndrome, on CPAP. Type 2 diabetes mellitus. Hypotension secondary to sepsis, resolved. Hyperlipidemia. Bilateral lower extremity weakness, secondary to cervical disc disease. T8 paresthesia. History of severe L5-S1 neuroforaminal stenosis. Plan: Plan dated April 03, 2025. The patient remains in the intensive care unit, critically ill. The patient continues on BiPAP, with settings of 14/8, and 80%. The patient is also getting saline at KVO. The patient continues on meropenem and Diflucan. Labs, x-rays, medications are reviewed. The patient is postoperative day #14, status post cervical decompression and fusion, from C7-T1. Chest x-ray today looks a bit improved. The patient may be trialed on some high flow nasal cannula or Airvo. Additional recommendations and suggestions are forthcoming. We will get the patient a flutter valve. Prognosis is certainly guarded. Dictation was produced using Dragon dictation software. Please excuse any grammatical, word or spelling errors. Plan dated April 04, 2025. The patient is seen today in room 252. The patient remains critically ill. He currently is on Airvo, 60 L/min with an FiO2 of 60%. Saturations are in the low 90s. The patient's meropenem can be discontinued. The patient continues on saline at KVO. We recommend deep breathing, coughing, clearing of secretions, use of the incentive spirometer, and the flutter valve. We will continue to follow the patient, make recommendations where appropriate. The patient's chest x-ray is stable, or slightly improved. Prognosis is guarded. The patient is not yet ready to leave the intensive care unit. Dictation was produced using [employer] software. Please excuse any grammatical, word or spelling errors. Plan dated April 05, 2025. The patient is seen today in room 252. The patient remains critically ill. He is on Airvo, with settings of 60 L/min, and an FiO2 of 70%. He is not receiving any IV fluids. Chest x-ray, labs, medications are reviewed. In my opinion, his chest x-ray is a bit worse today than it was yesterday. We encourage deep breathing, coughing, clearing the secretions. The patient's cough mechanism is very weak. In addition, the patient has an incentive spirometer, and a flutter valve, and I encouraged him to use both, on an hourly basis. We will continue to follow the patient, make recommendations were appropriate. Prognosis is certainly guarded. Dictation was produced using [employer] software. Please excuse any grammatical, word or spelling errors. Plan dated April 06, 2025. The patient is again seen today in room 252. He continues on Airvo, with settings of 60 L/min and FiO2 of 85%. The patient is getting saline at 10 cc an hour. Upper extremity Doppler, was negative for DVT. The patient was on merope nem which was discontinued. Ancef was started by the back surgeon. He continues on fluconazole. The patient does use BiPAP at nighttime, with settings of 14/8, and 80%. All labs, x-rays, and medications are reviewed. We encouraged the patient to continue to use the incentive spirometer, and a f lutter valve. Additional recommendations and suggestions are forthcoming. Prognosis is guarded. Labs, x-rays, and all medications are reviewed. Dictation was produced using [employer] software. Please excuse any grammatical, word or spelling errors. Plan dated April 07, 2025. The patient is again seen in room 252. Currently, he is on Airvo, at 60 L/min with an FiO2 of 85%. He is getting saline at KVO. He does use BiPAP at nighttime, between 10 PM and 7 AM, at 14/8, and 80%. All labs, x-rays, and medications are reviewed. The patient chest x-ray stable. He has a very weak cough reflex. He is using incentive spirometer, and flutter valve on a regular basis. We also recommend deep breathing, coughing, clearing of secretions. The patient is currently being evaluated for possible transfer to long-term acute care. Dictation was produced using [employer] software. Please excuse any grammatical, word or spelling errors. Time with Patient: Greater than 30
[2025-04-07 15:47] LABS: Glucose,Whole Blood 106 mg/dL (70-110)
[2025-04-07 23:27] LABS: Glucose,Whole Blood 150 mg/dL (70-110)
[2025-04-08 05:51] LABS: HCT 35.8 % (39.6-50.0); HGB 12.0 g/dL (13.0-17.0); MCH 29.9 pg (27.0-32.0); MCHC 33.5 g/dL (32.0-37.0); MCV 89.3 fL (80.0-97.0); RBC 4.01 10*6/uL (4.40-5.60); RDW 14.2 % (11.5-14.5); WBC 11.57 10*3/uL (4.50-10.00)
[2025-04-08 05:56] LABS: Platelet Count 84 10*3/uL (140-440)
[2025-04-08 06:16] LABS: Glucose,Whole Blood 123 mg/dL (70-110)
[2025-04-08 06:42] LABS: African American GFR (CKD) >90 (>60 ml/min/1.73 sqM); Anion Gap 2 mmol/L; Blood Urea Nitrogen 18 mg/dL (9-20); Calcium 8.0 mg/dL (8.4-10.2); Carbon Dioxide 28 mmol/L (22-30); Chloride 103 mmol/L (98-107); Glucose 128 mg/dL (74-99); Non-African American GFR(CKD) >90 (>60 ml/min/1.73 sqM); Potassium 3.9 mmol/L (3.5-5.1); Sodium 133 mmol/L (137-145)
--- NOTE | 2025-04-08 07:51 | XR ---
EXAMINATION TYPE: XR chest 1V portable DATE OF EXAM: 04/08/2025 5:41 AM COMPARISON: Multiple radiographs, with the most recent on 04/07/2025 TECHNIQUE: XR chest 1V portable Portable AP radiograph of the chest. CLINICAL INDICATION:Male, 65 years old with history of assess lungs; shortness of breath. FINDINGS: Lungs/Pleura: Right lung is clear. No pneumothorax. Chronic elevation of the left hemidiaphragm with left basilar opacities and small pleural effusion. Right basilar linear atelectasis. Pulmonary vascularity: Unremarkable. Heart/mediastinum: Cardiomediastinal silhouette is unremarkable. Musculoskeletal: No acute osseous pathology. Postsurgical changes of the cervicothoracic spine. Other findings: Cholecystectomy clips in the right upper quadrant. IMPRESSION: Similar small left pleural effusion with adjacent opacities likely representing atelectasis. Chronic elevation of the left hemidiaphragm. [facility], , 04/08/2025 7:49 AM
--- NOTE | 2025-04-08 10:24 | P.PN ---
Subjective Progress Note Date: 04/08/25 65 year old M with PMH HTN, HLD, type 2 DM, migraines, depression, NERIS presented to the ED for sudden onset numbness extending from periumbilical region downwards throughout groin and bilateral lower extremities followed by weakness of bilateral lower extremities. Patient underwent evaluation in the ED. Vital signs upon arrival show BP 165/97, HR 88, RR 18, T 98.8 F, and SpO2 of 97% on RA. CT AP + L spine showed no evidence for significant spinal canal stenosis, severe right L5-S1 neuroforaminal stenosis and moderate bilateral L4-L5 neuroforaminal stenosis, right middle lobe pulmonary nodule 8 mm, prostamegaly, colonic diverticulosis, and bilateral adrenal myelolipoma. Labs completed and reviewed. CBC unremarkable. BMP showing hyperglycemia with blood glucose of 146. Liver profile normal findings. Urinalysis positive for glucose and ketones but negative for infection. Patient was admitted under services with consultation to neurology and orthospine surgery. MRI C-spine showed severe spinal canal stenosis C7-T1. Patient underwent cervical decompression with laminectomy and fusion on 03/21/[address] Noyola. Post operative complications include ileus and acute hypoxic respiratory failure with chest CTA showing left lung volume loss with marked atelectasis likely secondary to mucous plugging. Started on Vancomycin and Zosyn. Underwent bronchoscopy on 03/26 with intubation. Extubated on 03/27, BAL cultures grew Serratia + Milagros, Zosyn was switched to Meropenem and Fluconazole added. Intubated again on 03/29, underwent repeat bronchoscopy on 03/31, extubated on 04/02. 04/08 Patient was seen and examined. Minimal sensation in the RLE. On 60L Airvo. Antibiotics include Fluconazole IV (D9) and Cefzolin IV (D4). He has already completed a course of Meropenem for Serratia PNA. CBC and BMP significant for WBC 11.57, RBC 4.01, Hg 12, Hct 35.8, Plt 84, Na 133, Cr 0.43, glu 128, Ca 8. CXR shows small L pleural effusion with adjacent opacities and chronic left diaphragm elevation, similar to yesterday. BP 107/73, HR 52, RR 14, 96% on 60L Airvo, T97.9F. General: no distress, appears at stated age Derm: warm, dry Head: atraumatic, normocephalic, symmetric Mouth: no lip lesion, mucus membranes moist Cardiovascular: S1 S2 reg. No murmur Lungs: Coarse BS bilaterally, no accessory muscle use Ext: no gross muscle atrophy, 2+ edema, no contractures. Neuro: 0/5 strength bilateral LE with increased sensation to touch in the RLE Psych: Alert and oriented Based on my assessment of this patient, this patient meets a high complexity level of care. Acute hypoxic respiratory failure and sepsis secondary to Serratia PNA and significant mucous plugging: BAL cultures as above. Completed multiple days of Meropenem. Mucormyst 200 mg INH TID. Mucinex 1200 mg PO BID. DuoNeb QID sched uled and Q2H PRN. Fluconazole 400 mg IV QD (D9). Supplemental O2 to maintain O2 sat > 92%. Pulmonary on board. Severe C7-T1 spinal stenosis status post cervical decompression with discectomy at C7-T1 and fusion with extension of fusion from C3-C7 with new extension down to T3 on 03/21 Normocytic anemia with thrombocytopenia: ABLA expected result of surgery which is stable. Plt count downtrending from 123 on 04/03 to 84 today. Obtain HIT panel as patient on Lovenox. Monitor for bleeding. Daily CBC. Mild hyponatremia likely related to steroid use Pulmonay nodule: Incidental finding on CT needing outpatient workup. Adrenal myelolipoma: Incidental finding on CT needing outpatient workup. Prostatomegaly: Incidental finding on CT needing outpatient workup. Diabetes mellitus: Lantus 50 units SQ QD. Lispro 10 unit TID. ISS + Accuchecks ACHS. Hypoglycemic precautions. Hypertension: Lisinopril 40 mg PO QD. Dyslipidemia: Lipitor 40 mg PO QHS. Depression: Pamelor 100 mg PO QHS. RLS: Mirapex 0.25 mg PO QHS. BPH: Flomax 0.4 mg PO QD. NERIS: BiPAP QHS. Wean O2. Plans for inpatient rehab on discharge. Pending clinical improvement. CODE STATUS: FULL CODE DVT Prophylaxis: Lovenox SQ GI Prophylaxis: Protonix PO Designated medical POA if patient is not able to make medical decisions for themselves: I have reviewed the following market research consultant notes: Pulm, Ortho. I have reviewed the results of the following tests: CBC, BMP I have ordered the following tests: CBC, BMP in the AM. I have discussed the care of this patient with the following independent historian: I have independently interpreted the following test below: CXR I have discussed the management of this patient with the following physician: Objective - Vital Signs Vital signs: Vital Signs Temp 97.9 F 04/08/25 04:00 Pulse 55 L 04/08/25 05:00 Resp 16 04/08/25 05:00 BP 108/64 04/08/25 05:00 Pulse Ox 97 04/08/25 01:00 FiO2 80 04/08/25 05:00 Intake & Output 04/07/25 04/08/25 04/08/25 18:59 06:59 18:59 Intake Total 950 130 Output Total 820 1050 Balance 130 -920 Weight 113.2 kg Intake: IV 410 130 Fluconazole in NaCl,Iso- 200 Osm 400 mg In Saline 1 200ml.bag @ 100 mls/hr IVPB DAILY@1800 REPLACED BY [facility] Rx#: [id number] ceFAZolin 3 gm In Sodium 100 Chloride 0.9% 100 ml @ 200 mls/hr IVPB Q8H REPLACED BY [facility] Rx#:[id number] kvo 110 130 Oral 540 Output: Urine 820 1050 Other: Voiding Method Indwelling Catheter Indwelling Catheter - Labs CBC & Chem 7: 04/08/25 05:06 04/08/25 05:06 Labs: Abnormal Lab Results - Last 24 Hours (Table) 04/07/25 04/08/25 04/08/25 Range/Units 23:25 05:06 05:06 WBC 11.57 H (4.50-10.00) 10*3/uL RBC 4.01 L (4.40-5.60) 10*6/uL Hgb 12.0 L (13.0-17.0) g/dL Hct 35.8 L (39.6-50.0) % Plt Count 84 L (140-440) 10*3/uL Sodium 133 L (137-145) mmol/L Creatinine 0.43 L (0.66-1.25) mg/dL Glucose 128 H (74-99) mg/dL POC Glucose (mg/dL) 150 H (70-110) mg/dL Calcium 8.0 L (8.4-10.2) mg/dL 04/08/25 Range/Units 06:14 WBC (4.50-10.00) 10*3/uL RBC (4.40-5.60) 10*6/uL Hgb (13.0-17.0) g/dL Hct (39.6-50.0) % Plt Count (140-440) 10*3/uL Sodium (137-145) mmol/L Creatinine (0.66-1.25) mg/dL Glucose (74-99) mg/dL POC Glucose (mg/dL) 123 H (70-110) mg/dL Calcium (8.4-10.2) mg/dL
--- NOTE | 2025-04-08 11:08 | P.PN ---
Subjective Progress Note Date: 04/08/25 Principal diagnosis: Cervical myelopathy. Status post cervical fusion/revision. Respiratory failure. Patient is a very pleasant 65-year-old male who is seen examined at bedside in the ICU for follow-up evaluation of the cervical spine. He is status post posterior cervical decompression discectomy at C7-T1 with extension of fusion from C7 down to T3. He has noticed improvement in sensation to the right lower extremity. He states that he has feeling down to his great toe. He continues to keep his hard cervical collar intact. He is not experiencing any cervical p ain. He has good range of motion of his bilateral upper extremities except for his shoulders bilaterally. 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 He is awake and alert. He is able to answer questions appropriately. He continues to have difficulty from a respiratory standpoint but has had some improvement. He has been extubated. Last note from pulmonology states patient still continues ICU placement. He continues to be on BiPAP. He continues to be seen exam by multiple medical providers including pulmonology and medicine. Objective - Vital Signs Vital signs: Vital Signs Temp 98.2 F 04/08/25 08:00 Pulse 62 04/08/25 11:00 Resp 14 04/08/25 11:00 BP 114/71 04/08/25 11:00 Pulse Ox 92 L 04/08/25 11:00 FiO2 70 04/08/25 08:00 Intake & Output 04/07/25 04/08/25 04/08/25 18:59 06:59 18:59 Intake Total 950 130 40 Output Total 820 1050 385 Balance 130 -920 -345 Weight 113.2 kg Intake: IV 410 130 40 Fluconazole in NaCl,Iso- 200 Osm 400 mg In Saline 1 200ml.bag @ 100 mls/hr IVPB DAILY@1800 [facility] Rx#: [id number] ceFAZolin 3 gm In Sodium 100 Chloride 0.9% 100 ml @ 200 mls/hr IVPB Q8H [facility] Rx#:[id number] kvo 110 130 40 Oral 540 Output: Urine 820 1050 385 Other: Voiding Method Indwelling Catheter Indwelling Catheter Indwelling Catheter - Exam This is a pleasant 65-year-old male in no acute distress. He is currently on BiPAP. He is alert and oriented at this time. He has fairly good motion to the elbows, wrists and fingers. He is unable to move at the shoulders independently. Exam of the lower extremities reveals improved sensation to the right lower extremity. He can sense fine touch down the leg to the posterior lower leg. He can no longer sense touch to the great toe today which she could yesterday. He has minimal sensation to the lateral foot. On the left lower extremity he has sensation to the knee. He is unable to move his lower extremities independently. - Labs CBC & Chem 7: 04/08/25 05:06 04/08/25 05:06 Labs: Abnormal Lab Results - Last 24 Hours (Table) 04/07/25 04/08/25 04/08/25 Range/Units 23:25 05:06 05:06 WBC 11.57 H (4.50-10.00) 10*3/uL RBC 4.01 L (4.40-5.60) 10*6/uL Hgb 12.0 L (13.0-17.0) g/dL Hct 35.8 L (39.6-50.0) % Plt Count 84 L (140-440) 10*3/uL Sodium 133 L (137-145) mmol/L Creatinine 0.43 L (0.66-1.25) mg/dL Glucose 128 H (74-99) mg/dL POC Glucose (mg/dL) 150 H (70-110) mg/dL Calcium 8.0 L (8.4-10.2) mg/dL 04/08/25 Range/Units 06:14 WBC (4.50-10.00) 10*3/uL RBC (4.40-5.60) 10*6/uL Hgb (13.0-17.0) g/dL Hct (39.6-50.0) % Plt Count (140-440) 10*3/uL Sodium (137-145) mmol/L Creatinine (0.66-1.25) mg/dL Glucose (74-99) mg/dL POC Glucose (mg/dL) 123 H (70-110) mg/dL Calcium (8.4-10.2) mg/dL Assessment and Plan (1) Cervical myelopathy Current Visit: Yes Status: Acute Priority: High Code(s): G95.9 - DISEASE OF SPINAL CORD, UNSPECIFIED SNOMED Code(s): 869727503 (2) Leg weakness Current Visit: Yes Status: Acute Code(s): R29.898 - OTH SYMPTOMS AND SIGNS INVOLVING THE MUSCULOSKELETAL SYSTEM SNOMED Code(s): 577919279 (3) Status post cervical spinal fusion Current Visit: Yes Status: Acute Code(s): Z98.1 - ARTHRODESIS STATUS SNOMED Code(s): 4921709416006 Plan: The clinical findings are discussed with the patient. He will continue with his care with multiple medical specialties. The patient is seen and examined at bedside. He remains in good spirits. He states that he is feeling some of his legs better but is difficult to ascertain the amount of any improved sensation. He moves his arms below his elbows but has global weakness at his upper extremities as well. This is unchanging. He feels like he is talking and breathing better. He remains on supplementation with BiPAP in the evening His imaging of his chest has been stable. As stated above. S/p history of cervical decompression fusion with discectomy at C7-T1 for his spinal cord injury due to massive disc herniation at C7-T1 with fusion extending from C3-T 3 He will continue his management per multiple medical specialties. He should continue with his occupational physical therapy. As he stabilizes he may be able to return to a selective care unit and possible selective care rehab for spinal cord injury. Will continue to follow closely. Continue management as per critical care.
--- NOTE | 2025-04-08 11:10 | P.PN ---
Subjective Progress Note Date: 04/08/25 Principal diagnosis: Leg weakness. This is a 64-year-old male patient was undergone a C 7 T1 discectomy, done posteriorly with wide laminectomy and foraminotomy and partial facetectomy. The patient was experiencing cervical myelopathy with severe bilateral lower extremity weakness and T8 paresthesia. The patient has previous history of cervical spine fusion C2-C7. The patient was found to have a large herniated disc C7-T1 with severe spinal cord stenosis and based on that the patient was taken to the operating room and underwent a C7-T1 discectomy on 03/21/2025. The patient has become progressively more hypoxic. Currently he is on Airvo at 60 L and FiO2 of 90%. His current pulse ox is in order of 90 to 93%. Slightly tachycardic. Blood pressure is also soft at 89/62. Based on worsening hypoxemia, CT of the chest was done and the patient was found to have signi ficant volume loss in the left lung compared to the right. There is marked volume loss and atelectasis in addition to an area of consolidation in the left upper lobe and elevation of the left hemidiaphragm in addition to significant gastric distention. The patient has dilated air in the stomach and colon. Blood work shows a white cell count of 14, hemoglobin 12.4 and a platelet count of 175. Sodium levels at 137, bicarb is at 23, potassium level is at 4.3 with a chloride of 102. BUN 23 with a creatinine of 0.9. The patient is resting comfortably in bed. He is wearing a hard neck collar. He is reporting some mild shortness of breath even at rest. He is tolerating the Airvo. He is currently on IV Solu-Medrol 100 mg every 6 hours post neck surgery. He is also on IV fluids with l normal saline at rate of 75 cc an hour. Comorbidities include hypertension, hyperlipidemia, diabetes mellitus type 2, obstructive sleep apnea maintained on CPAP therapy on outpatient basis On today's evaluation of 03/23/25, patient is still on the BiPAP pressure of 14 over 6 cm of water and FiO2 has been weaned down to 65%. The patient's abdomen seems to be less distended. He had 2 bowel movements and the patient is also passing flatus. Fluid balance +223 cc over the past 24 hours and the patient remains on normal saline at a rate of 75 cc an hour. Neurologically, unchanged and the patient has absent motor function lower extremities bilaterally. He is on broad-spectrum antibiotics and the patient is currently on Zosyn vancomycin combination. Follow-up chest x-ray shows some interval improvement in aeration in the left lung base. Lung volumes in the left remain small and there is some ongoing atelectatic change at left lower lobe. The patient's white cell count is 11, hemoglobin 11.3 and a platelet count of 180. Electrolytes are all within normal limits. BUN is 40 with a creatinine of 1.05. The patient is able to communicate. He is alert and awake. Denies having any specific complaints. Still wearing a hard neck collar. 03/24/2025, the patient is laying flat in bed and is currently on a BiPAP at a pressure of 14/6 with an FiO2 of 75% overnight and Airvo during the day. He remains on normal saline at rate of 75 cc an hour. Chest x-ray still showing left lower lobe consolidation. Abdomen is soft. He had 3 bowel movements. He is on Lantus insulin. The patient's mentation is awake and alert. Nevertheless, he continues to have profound weakness in the lower extremity and he remains paraplegic. Remains on IV Solu-Medrol. Blood sugars are elevated and he remains on Lantus 15 units daily and NovoLog sliding scale coverage. The white cell count 11.9, hemoglobin 11.3 and a platelet count of 201. BUN 34 with a creatinine of 0.8. Sodium levels at 136. Blood sugars up to 82. He is postop day #4 following an open decompression and fusion of C7-T1 surgery was done due to a large disc herniation and spinal cord injury. He is also status post fusion and extension from prior fusion C2-7 and near extension fusion down to T3. He is unable to move his legs still. Samuels catheter still in place. Using incentive spirometer. Afebrile. 03/25/2025, the patient is being seen for a follow-up. Repeat chest x-ray was done and shows ongoing volume loss and atelectasis in the left lung base. I also performed an ultrasound of the chest and there is no sizable pleural effusion for thoracentesis. Findings are more consistent with consolidation/atelectasis. Remains on Airvo at 60 L and FiO2 of 90%. Incentive spirometer. Overnight, using BiPAP pressure of 14/6 and use of water with an FiO2 of 80%. Remains in normal Saint rate of 75 cc an hour. Fluid balance is +550 cc over the past 24 hours. No respiratory difficulties. The white cell count of 12. Hemoglobin is 10.9. Platelet count is 210. BUN is 32 with a creatinine of 0.8. Sodium levels at 138 and potassium levels of 4.2. Remains on Zosyn and vancomycin. Neurologically unchanged and the patient continues to be paraplegic. Patient was seen today on 03/26/2025, patient remains in the ICU, he is on Airvo at 90% and 60 L flow, patient is generally weak, alert and appropriate, IV fluid at 75 cc/h, continues to have weakness from the waist down. Patient had cervical spine surgery postoperative day #6. Chest x-ray showed complete opacification of the left lung consistent with mucous plugging involving the left mainstem bronchus. Hence I discussed this with the patient today, patient needs to be bronchoscope, needs to have extraction of mucous plugs. Considering the patient is marginal at best, will need to be intubated and placed on mechanical ventilation for the procedure. Based on the findings we will decide whether the patient needs to remain on mechanical ventilation after bronchoscopy or not. Most likely he will remain ventilated after the bronchoscopy. Patient has a bit of leukocytosis with WBC of 13.3 hemoglobin 11.3 electrolytes are normal renal profile is normal. Nasal screen has been positive for MSSA not MRSA. Patient was seen today on 03/27/2025, patient remains intubated and mechanically ventilated, kept him on mechanical ventilation after his bronchoscopy yesterday and suctioning of mucous plugs from the left mainstem bronchus and left lung. Left lung continues to show good inflation, minimal left lower lobe atelectasis, patient is on assist-control rate of 18 tidal volume 550 FiO2 50% and PEEP of 8 ABG today showed a pO2 of 84 pCO2 37 pH of 7.41. Patient is also on propofol at 50 mg/kg/min IV fluids at 75 cc/h on antibiotics in the form of Zosyn and vancomycin, antibiotics to be changed once we have the final culture from the BA L. I plan to wean the patient today, possibly consider placing him on BiPAP 12/6/50% assuming he tolerates weaning and he passes his weaning parameters. Patient is awake, follows instructions, although he is still on propofol. WBC count is 14.48 hemoglobin 10.8 electrolytes are normal, BUN is 29 creatinine 0.7 Patient was seen today on 03/28/2025, patient was extubated yesterday, had to be placed on BiPAP to avoid atelectasis again of the left lung and mucous plugging patient has very poor cough, cannot clear his secretions, and his chest x-ray today is beginning to show early atelectasis in the left lower lobe, questionable effusion but ultrasound did not show much fluid. I believe it is all a picture of atelectasis involving the left lower lobe and I am afraid that the patient may have reopacification of the left lung in the next 24 hours. In the meantime I will continue patient on BiPAP, will recommend chest PT, N- acetylcysteine and albuterol, Mucinex, and hopefully we can avoid another bronchoscopy. Otherwise if the patient opacifies left lung again, may have to be bronchoscope again. And if we do I will keep him longer on mechanical ventilation. Patient remains on antibiotics/broad-spectrum he is WBC count is 19.36 hemoglobin is 10.7 electrolytes are normal renal profile is normal. Seen today on 03/29/2025, patient remains in the ICU, chest x-ray is showing worsening and he is again having near complete opacification of the left lung. Apparently the patient is developing mucous plugging again involving the left mainstem bronchus and the cultures from his last BAL came back showing Serratia marcescens. Considering the patient's critical illness, I am transitioning Zosyn to Merrem for better coverage of Serratia. Sensitivity is still pending on the organism. But empirically Merrem would be a better choice for Serratia marcescens for the time being. Patient still on BiPAP at 14/6/60%, and considering his abnormal chest x-ray, I am recommending bronchoscopy again and this has to be again done with the patient intubated as his O2 saturation is marginal even on 60% BiPAP. Patient looks comfortable, he is not in distress. Continues to have leukocytosis with WC of 23.23 hemoglobin 11.2 basic metabolic profile is normal renal profile is normal continues to have cervical collar in place. Patient was seen today on 03/30/2025, remains in the ICU, intubated and mechanically ventilated, patient is on assist-control rate of 18 tidal volume 550 FiO2 50% PEEP of 10 ABG showed a pO2 of 122 pCO2 37 pH of 7.47 hence FiO2 was cut down to 40%. Remains on Merrem remains on propofol at 40 mcg/kg/min and on Versed 1 mg/h. Patient is sedated, does not seem to be in any distress, chest x-ray is showing slight worsening in the left lower lobe, but not severe enough to justify bronchoscopy again. However considering this I am not planning to extubate the patient today as if extubated he will most likely end up requiring bronchoscopy again. Patient had positive cultures for Serratia marcescens, and is now on Merrem. Labs today were reviewed patient has leukocytosis with WBC count of 19.7 hemoglobin 11.3, basic metabolic profile is normal renal profile is normal patient is on nutritional support/enteral feeding. Chest x-ray today is a bit worrisome hence no plans to wean and extubate today. Patient was seen today on 03/31/2025, remains in the ICU, intubated and mechanically ventilated. Patient is on assist-control rate of 18 tidal volume 5 50 FiO2 40% and PEEP of 10 ABG on 45% showed a pO2 of 86 pCO2 42 pH of 7.44. Chest x-ray is showing left lower lobe atelectasis/airspace disease involving the left lower lobe hence I was concerned about recollapsing of the left lung, bronchoscopy was performed, and the secretions noted in the left lower lobe with were very minimal. Did not require lavage, there was not enough secretions to do lavage. Hence the patient was kept intubated mechanically ventilated, he is now on propofol at 45 mcg/kg/min is on Versed 1 mg/h and is receiving vital HP at 32 cc/h. Remains on fluconazole, remains on Merrem. Continues to have a bit of leukocytosis with WBC of 19.12 hemoglobin 11.7 electrolytes are normal, renal profile is normal. Patient was seen today on 04/01/2025, remains in the ICU, remains intubated and mechanically ventilated. Patient is sedated with propofol at 45 mcg/kg/min and Versed 1 mg/h. Patient is calm he is on assist-control mode of mechanical ventilation rate 18 tidal volume 550 FiO2 40% PEEP that ABG showed a PO2 of 91 pCO2 37 pH of 7.52 chest x-ray showed improvement in his left lower lobe atelectasis but he does have bilateral pleural effusions has I recommended a d ose of Lasix 40 mg IV push x 1 was given. Considering his ABG is better considering his chest x-ray is showing improvement, I recommended a trial of weaning. However on pressure support and CPAP, his ABG was marginal with a pO2 of 61 pCO2 40 pH of 7.51, hence I felt the patient is not ready to be weaned especially with relatively low pO2 of 61. And I felt the patient should be back on sedation and back on assist-control mode of mechanical ventilation. In the meantime patient remains on nutritional support, remains in GI prophylaxis: And again he received a dose of Lasix earlier today for what seems to be bilateral pleural effusions. Continues to have leukocytosis with WBC count of 19.4 hemoglobin 11.5 electrolytes are normal, renal profile is normal blood sugar is 245 Patient was seen today on 04/02/2025, remains in the ICU, intubated and mechanically ventilated. Remains on the same ventilator settings, is on assist- control mode of mechanical ventilation, ABG today showed a pO2 of 103 pCO2 34 pH of 7.57 chest x-ray is showing improvement in his left-sided opacity much better today compared to the last few days, WBC count remains elevated at 21.02 hemoglobin is 11.7 electrolytes are normal, renal profile is normal. Blood sugar is 286. Considering the improvement noted on the chest x-ray, patient will be given another weaning trial today, and I will discontinue his sedation, placed patient on pressure support of 12 and CPAP, his PEEP is down to 6. Patient will be weaned and if tolerated we could proceed to extubation. Otherwise may keep patient mechanically ventilated again for another day. In the meantime he is receiving Merrem for his Serratia marcescens pneumonia. Progress note dated April 03, 2025. This is a 64-year-old male who was admitted back on March 18, with leg weakness, and cervical myelopathy. On day 13, the patient had a cervical decompression an d fusion, from C7-T1. The patient has been in the intensive care unit, pretty much the entire time, with intubation, and extubation x 2. The patient is also had bronchoscopy x 2. He continues on meropenem and Diflucan. He is on BiPAP, with settings of 14/8, and 80%. He is getting saline at KVO. Current laboratory data includes a white count of 20.3, hemoglobin 11.8, hematocrit 36.5, and a platelet count of 123,000. Sodium 133, potassium 4.2, chlorides 103, CO2 28, BUN 29, creatinine 0.43. Glucose is 171. Calcium is 8.3. Bronchoscopy and washings from March 26 were positive for Serratia marcescens. Chest x-ray, shows left basilar opacity consistent with atelectasis, and/or effusion. The chest x-ray in my opinion is improved compared to the prior 1. Progress note dated April 04, 2025. 64-year-old male admitted back on March 18 with leg weakness, and cervical myelopathy. On March 20, the patient had a cervical decompression and fusion, from C7-T1. The patient has been in the intensive care unit, the entire time, with intubation and extubation x 2. The patient also had bronchoscopy, with BAL x 2. Currently, the patient is seen today in room 252. The patient is currently on Airvo, 60 L/min with an FiO2 of 60%. He is getting saline to KVO. At this point, the meropenem can be discontinued. White count 17.1, hemoglobin 11.8, hematocrit 36, platelet count 119,000. Sodium 133, potassium 4.1, chlorides 102, CO2 31, BUN 29, creatinine 0.47. Glucose is 140. Calcium is 8.3 . Bronchoscopy, from March 26, was positive for Serratia marcescens. Chest x-ray is stable, and is largely unchanged. Progress note dated April 05, 2025. 64-year-old male admitted back on March 18 with leg weakness and cervical myelopathy. 2 days later on March 20, the patient had a cervical decompression and fusion, from C7-T1. The patient has been in the intensive care unit, the entire time, and has been intubated and extubated twice, and as well, has had 2 bronchoscopies, with BAL's. He is seen again in room 252. He is currently on Airvo. Settings include 60 L/min with an FiO2 of 70%. Is not receiving any IV fluids. Today's chest x-ray is a bit worse, showing more significant collapse of the left lower lobe. The patient does have an incentive spirometer, and a flutter valve, and I encouraged him to use it on a regular basis. His cough is very weak. White count is 12.6, hemoglobin 12.1, hematocrit 37.8, platelet count is 102,000. Sodium 131, potassium 4.2, chlorides 102, CO2 27, BUN 29, creatinine 0.38. Glucose 154. Calcium 8.2. Progress note dated April 06, 2025. 64-year-old male seen again in room 252. The patient was admitted back on March 18 with leg weakness, and cervical myelopathy. On March 20, the patient had a cervical decompression and fusion, from C7-T1. The patient has been in the intensive care unit, the entire time. The patient has been on and off the [employer] ventilator x 2, and has had bronchoscopy x 2. Currently he is resting comfortably. He continues on Airvo. Settings include 60 L/min with an FiO2 of 85%. The patient is getting saline at 10 cc an hour. He does use BiPAP at nighttime, with settings of 14/8, and 80%. His right upper extremity is edematous, and we will do an ultrasound. He continues on Ancef and fluconazole. The Ancef was started by the back surgeon. White count is 11.7, hemoglobin 12.3, hematocrit 37.5, platelet count of 100,000. Sodium 132, potassium 3.9, chloride 79, CO2 31, BUN 28, creatinine 0.5. Glucose is 145. Calcium is 8.2. Chest x-ray is largely unchanged, and stable. Right upper extremity Doppler was negative for DVT. Progress note dated April 07, 2025. 65-year-old male who was seen again in room 252. The patient continues on Airvo, 60 L/min, with an FiO2 of 85%. In addition, he is getting saline at KVO. He uses BiPAP at nighttime, with settings of 14/8, and 80%. Usually from 10 PM to 7 AM. Clinically, he is doing about the same. Current laboratory data includes a white count of 12.8, hemoglobin 11.9, hematocrit 34.8, and a platelet count of 99,000. Sodium 133, potassium 3.9, chlorides 104, CO2 28, BUN 21, creatinine 0.35. Glucose is 99. Calcium is 7.8. Chest x-ray shows a small left-sided pleural effusion, with adjacent opacities, representing atelectasis. There is chronic elevation of the left diaphragm. Progress note dated April 08, 2025. 65-year-old male seen today in room 252. He continues on Airvo. Settings include 60 L/min, with an FiO2 70%. His chest x-ray is improved. He feels better. He is not receiving any IV fluids. He is currently on Ancef as per orthopedics, and fluconazole, which can be discontinued. Clinically, he feels better. He is doing his incentive spirometer, and flutter valve, on a regular basis. White count 11.6, hemoglobin 12, hematocrit 35.8, platelet count 84,000. Sodium 133, potassium 3.9, chlorides 103, CO2 28, BUN 18, creatinine 0.43. Glucose 123. Calcium 8. Chest x-ray in my opinion continues to show improvement. Objective - Vital Signs Vital signs: Vital Signs Temp 98.2 F 04/08/25 08:00 Pulse 62 04/08/25 11:00 Resp 14 04/08/25 11:00 BP 114/71 04/08/25 11:00 Pulse Ox 92 L 04/08/25 11:00 FiO2 70 04/08/25 08:00 Intake & Output 04/07/25 04/08/25 04/08/25 18:59 06:59 18:59 Intake Total 950 130 40 Output Total 820 1050 385 Balance 130 -920 -345 Weight 113.2 kg Intake: IV 410 130 40 Fluconazole in NaCl,Iso- 200 Osm 400 mg In Saline 1 200ml.bag @ 100 mls/hr IVPB DAILY@1800 [facility] Rx#: [id number] ceFAZolin 3 gm In Sodium 100 Chloride 0.9% 100 ml @ 200 mls/hr IVPB Q8H [facility] Rx#:[id number] kvo 110 130 40 Oral 540 Output: Urine 820 1050 385 Other: Voiding Method Indwelling Catheter Indwelling Catheter Indwelling Catheter - Exam No acute distress, oriented 3. The patient is currently on Airvo. HEENT examination is grossly unremarkable. Neck supple. Full range of motion. No adenopathy thyromegaly or neck vein distention. Cardiovascular examination reveals regular rhythm rate. S1-S2 normal. No S3 or S4. No discernible murmur noted. Heart sounds are distant. Lungs reveal mostly clear breath sounds. Scattered rhonchi. No wheezes or crackles. Breath sounds equal bilaterally. Abdomen soft bowel sounds are heard. No masses or tenderness. Extremities are intact. No cyanosis clubbing or edema. Right upper extremity is edematous. Skin is without rash or lesion. Neurologic examination is brief but nonfocal. - Labs CBC & Chem 7: 04/08/25 05:06 04/08/25 05:06 Labs: Abnormal Lab Results - Last 24 Hours (Table) 04/07/25 04/08/25 04/08/25 Range/Units 23:25 05:06 05:06 WBC 11.57 H (4.50-10.00) 10*3/uL RBC 4.01 L (4.40-5.60) 10*6/uL Hgb 12.0 L (13.0-17.0) g/dL Hct 35.8 L (39.6-50.0) % Plt Count 84 L (140-440) 10*3/uL Sodium 133 L (137-145) mmol/L Creatinine 0.43 L (0.66-1.25) mg/dL Glucose 128 H (74-99) mg/dL POC Glucose (mg/dL) 150 H (70-110) mg/dL Calcium 8.0 L (8.4-10.2) mg/dL 04/08/25 Range/Units 06:14 WBC (4.50-10.00) 10*3/uL RBC (4.40-5.60) 10*6/uL Hgb (13.0-17.0) g/dL Hct (39.6-50.0) % Plt Count (140-440) 10*3/uL Sodium (137-145) mmol/L Creatinine (0.66-1.25) mg/dL Glucose (74-99) mg/dL POC Glucose (mg/dL) 123 H (70-110) mg/dL Calcium (8.4-10.2) mg/dL Assessment and Plan Assessment: Acute hypoxemic respiratory failure, secondary to recurrent left lung collapse, S/P bronchoscopy x 2. History of Serratia marcescens pneumonia. S/P bronchoscopy x 2. Severe spinal canal stenosis at C7-T1, S/P decompression/fusion. Obstructive sleep apnea syndrome, on CPAP. Type 2 diabetes mellitus. Hypotension secondary to sepsis, resolved. Hyperlipidemia. Bilateral lower extremity weakness, secondary to cervical disc disease. T8 paresthesia. History of severe L5-S1 neuroforaminal stenosis. Plan: Plan dated April 03, 2025. The patient remains in the intensive care unit, critically ill. The patient continues on BiPAP, with settings of 14/8, and 80%. The patient is also getting saline at KVO. The patient continues on meropenem and Diflucan. Labs, x-rays, medications are reviewed. The patient is postoperative day #14, status post cervical decompression and fusion, from C7-T1. Chest x-ray today looks a bit improved. The patient may be trialed on some high flow nasal cannula or Airvo. Additional recommendations and suggestions are forthcoming. We will get the patient a flutter valve. Prognosis is certainly guarded. Dictation was produced using [employer] software. Please excuse any grammatical, word or spelling errors. Plan dated April 04, 2025. The patient is seen today in room 252. The patient remains critically ill. He currently is on Airvo, 60 L/min with an FiO2 of 60%. Saturations are in the low 90s. The patient's meropenem can be discontinued. The patient continues on sa line at KVO. We recommend deep breathing, coughing, clearing of secretions, use of the incentive spirometer, and the flutter valve. We will continue to follow the patient, make recommendations where appropriate. The patient's chest x-ray is stable, or slightly improved. Prognosis is guarded. The patient is not yet ready to leave the intensive care unit. Dictation was produced using [employer] software. Please excuse any grammatical, word or spelling errors. Plan dated April 05, 2025. The patient is seen today in room 252. The patient remains critically ill. He is on Airvo, with settings of 60 L/min, and an FiO2 of 70%. He is not receiving any IV fluids. Chest x-ray, labs, medications are reviewed. In my opinion, his chest x-ray is a bit worse today than it was yesterday. We encourage deep breathing, coughing, clearing the secretions. The patient's cough mechanism is very weak. In addition, the patient has an incentive spirometer, and a flutter valve, and I encouraged him to use both, on an hourly basis. We will continue to follow the patient, make recommendations were appropriate. Prognosis is certainly guarded. Dictation was produced using [employer] software. Please excuse any grammatical, word or spelling errors. Plan dated April 06, 2025. The patient is again seen today in room 252. He continues on Airvo, with settings of 60 L/min and FiO2 of 85%. The patient is getting saline at 10 cc an hour. Upper extremity Doppler, was negative for DVT. The patient was on meropenem which was discontinued. Ancef was started by the back surgeon. He continues on fluconazole. The patient does use BiPAP at nighttime, with settings of 14/8, and 80%. All labs, x-rays, and medications are reviewed. We encouraged the patient to continue to use the incentive spirometer, and a flutter valve. Additional recommendations and suggestions are forthcoming. Prognosis is guarded. Labs, x-rays, and all medications are reviewed. Dictation was produced using [employer] software. Please excuse any grammatical, word or spelling errors. Plan dated April 07, 2025. The patient is again seen in room 252. Currently, he is on Airvo, at 60 L/min with an FiO2 of 85%. He is getting saline at KVO. He does use BiPAP at nighttime, between 10 PM and 7 AM, at 14/8, and 80%. All labs, x-rays, and medications are reviewed. The patient chest x-ray stable. He has a very weak cough reflex. He is using incentive spirometer, and flutter valve on a regular basis. We also recommend deep breathing, coughing, clearing of secretions. The patient is currently being evaluated for possible transfer to long-term acute care. Dictation was produced using [employer] software. Please excuse any grammatical, word or spelling errors. Plan dated April 08, 2025. The patient is again seen today in room 252. He continues on Airvo. FiO2 is being titrated down. Chest x-ray is improved in my opinion. Clinically, the patient appears to be doing a bit better. He continues to use the incentive spirometer, and the flutter valve on a regular basis. All labs, x-rays, and medications are reviewed. Fluconazole was discontinued. He continues on Ancef. We will continue to follow make recommendations along the way. Prognosis is guarded. The patient remains critically ill. Dictation was produced using [employer] software. Please excuse any grammatical, word or spelling errors. Time with Patient: Greater than 30
[2025-04-08 11:44] LABS: Glucose,Whole Blood 171 mg/dL (70-110)
[2025-04-08 16:26] LABS: Glucose,Whole Blood 220 mg/dL (70-110)
[2025-04-08 19:46] LABS: Glucose,Whole Blood 241 mg/dL (70-110)
[2025-04-08] MEDS: SODIUM CHLORIDE 0.9% 1,000 ML IV ONE (19:55)
--- NOTE | 2025-04-09 06:06 | XR ---
EXAMINATION TYPE: XR chest 1V portable DATE OF EXAM: 04/09/2025 CLINICAL INDICATION: Male, 65 years old with history of pna, progress study. TECHNIQUE: Single AP portable upright view of the chest is obtained. COMPARISON: Chest x-ray from one day earlier FINDINGS: Left greater than right bibasilar opacities are redemonstrated. Upper lungs remain clear. Cardiac silhouette size is stable in within normal limits. Extensive surgical change to the cervical thoracic spine is redemonstrated. Pneumomediastinum may be present IMPRESSION: Persistent left greater than right bibasilar infiltrate and/or atelectasis with small lef t pleural effusion. Possible pneumomediastinum. No significant change from one day earlier. [facility], , 04/09/2025 6:03 AM
[2025-04-09 06:16] LABS: Glucose,Whole Blood 177 mg/dL (70-110)
[2025-04-09 06:21] LABS: HCT 36.3 % (39.6-50.0); HGB 12.1 g/dL (13.0-17.0); Immature Platelet Fraction 5.6 % (1.1-6.1); MCH 29.8 pg (27.0-32.0); MCHC 33.3 g/dL (32.0-37.0); MCV 89.4 fL (80.0-97.0); RBC 4.06 10*6/uL (4.40-5.60); RDW 14.3 % (11.5-14.5); WBC 10.28 10*3/uL (4.50-10.00)
[2025-04-09 06:25] LABS: Platelet Count 85 10*3/uL (140-440)
[2025-04-09 06:37] LABS: African American GFR (CKD) >90 (>60 ml/min/1.73 sqM); Anion Gap 3 mmol/L; Blood Urea Nitrogen 19 mg/dL (9-20); Calcium 8.2 mg/dL (8.4-10.2); Carbon Dioxide 28 mmol/L (22-30); Chloride 100 mmol/L (98-107); Glucose 193 mg/dL (74-99); Magnesium 1.7 mg/dL (1.6-2.3); Non-African American GFR(CKD) >90 (>60 ml/min/1.73 sqM); Potassium 3.8 mmol/L (3.5-5.1); Sodium 131 mmol/L (137-145)
[2025-04-09] MEDS: POTASSIUM CHLORIDE ER 20 MEQ TAB.ER PO SCH (07:59)
--- NOTE | 2025-04-09 08:43 | P.PN ---
Progress Note - Text Progress Note Date: 04/09/25 Orthopedic spine: History of present illness: Patient is a very pleasant 65-year-old male who is seen examined at bedside in the ICU for follow-up evaluation of the cervical spine. He is status post posterior cervical decompression discectomy at C7-T1 with extension of fusion from C7 down to T3. He has not had any change from an orthopedic spine standpoint as compared to yesterday except he states this morning he is able to feel his right great toe with palpation.. He continues to keep his hard cervical collar intact. He is not experiencing any cervical pain. His jarad were removed previously. He continues with dressing changes as needed. He has no significant drainage. He has good range of motion of his bilateral upper extremities except for his shoulders bilaterally. He is able to make a fist but is weak with his crew caller. He is awake and alert. He is able to answer questions appropriately. He continues have significant difficulty with this bilateral lower extremities. He has some improved numbness around his abdomen towards the groin. Currently he does not have any sensation in his bilateral lower extremities except for some increased sensation in his right great toe and has no motor function in his lower extremities. His lower extremity symptoms have not improved. He currently has compression stockings and boots intact. He has continued to improve from a pulmonary standpoint. His chest x-ray this morning has improved as compared to yesterday. He has been extubated over the past 7 days. He continues to be monitored by pulmonary critical care in the ICU. He continues to be seen exam by multiple medical providers including pulmonology and medicine. Physical Exam Posterior cervical Fusion: Status post surgical day number #17 Patient is awake, alert, and oriented 3; patient is answering questions appropriately BiPAP intact Reception Manager strength, thumb strength, interosseous strength, biceps strength, and triceps strength positive sustained bilaterally He is able to shrug his shoulders. Weakness with crew caller bilaterally Hard cervical collar intact No significant active drainage from the surgical site He states he has sensation with palpation this morning over his right great toe Pneumatic boots intact bilateral lower extremities Compression stockings intact bilaterally Samuels catheter intact Assessment: Spinal cord injury with paralysis at T8 Postoperative day #18: Status post posterior cervical decompression discectomy at C7-T1 with extension of fusion from C7-T3 Bilateral lower extremity paralysis Bilateral lower extremity loss of sensation Acute hypoxic respiratory failure Left-sided atelectasis Obstructive sleep apnea syndrome on CPAP normally Type 2 diabetes Hypotension could be related to sepsis could also be neurogenic post spinal surgery Dyslipidemia Plan: 1. Patient continues to remain in the ICU. He is awake, alert, and oriented and answering questions appropriately. He has been closely manage from pulmonary standpoint. He has been extubated over the past 7 days. He will remain in the ICU until cleared from a pulmonary standpoint. 2. Patient must keep his hard cervical collar intact at all times. Patient may continue with dressing changes as needed at the posterior cervical spine. 3. Patient continues to have flaccid paralysis in his bilateral lower extremities. He has had some increase in sensation around his abdomen towards his groin. Today he has some sensation in his right great toe. They should try to change his positions regularly to help prevent decubitus issues. 4. When medically stable clear, patient will be planning to be discharged to a spinal cord facility for rehabilitation. 5. We will continue to follow the patient closely.
--- NOTE | 2025-04-09 10:55 | P.PN ---
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 Wheeler) approximately 2 months ago, migraine headaches, depression. Presented to the emergency department with a chief complaint of sudden onset numbness extending from periumbilical region downwards throughout groin and bilateral lower extremities followed by weakness of bilateral lower extremities. Patient states he was moving some plants at home when he had sudden onset of numbness around his lower abdomen circling around him like a belt that quickly radiated into his groin and into bilateral lower extremities accompanied by weakness of bilateral lower extremities which resulted in his legs giving out from beneath him causing him to fall to the ground. Patient de nied having any dizziness or lightheadedness, headache, neck or back pain, or experiencing any pain in his abdomen, groin, or lower extremities. He denies hitting his head during the fall and denies having any loss of consciousness. But reports due to the sudden onset numbness and weakness he was unable to stand back up and had to have his call EMS for transfer to the hospital. Upon arrival to our facility, patient underwent evaluation in the emergency department. Vital signs upon arrival show blood pressure 165/97, heart rate 88, respiratory rate 18, temp 98.8 F, and SpO2 of 97% on room air. CT lumbar spine CT abdomen and pelvis was also negative for acute intra-abdominal process completed showing no evidence for spinal fracture, no evidence for significant spinal canal stenosis revealing severe right L5-S1 neuroforaminal stenosis and moderate bilateral L4-L5 neuroforaminal stenosis, revealing a right middle lobe pulmonary nodule 8 mm, prostamegaly, colonic diverticulosis, and bilateral adrenal myolipoma's. Labs completed and reviewed. CBC unremarkable. BMP showing hyperglycemia with blood glucose of 146. Liver profile normal findings. Urinalysis positive for glucose and ketones but negative for infection. Patient was admitted under services with consultation to neurology and orthospine surgery. MRI lumbar spine was completed showing no definitive evidence of disc herniation or significant spinal canal stenosis revealing minimal disc degeneration with associated osteoarthritic changes. Patient underwent extensive cervical spinal surgery on the evening of 03/20/2025 through 03/21/2025. 04/02/25: Patient seen and examined at bedside today in the ICU. He was intubated but off sedation and weaning parameters were being obtained. No acute events overnight. He denies any acute complaints today. 04/03/25: Patient evaluated at bedside. He remains in the ICU. He was extubated yesterday. He did well overnight, but today morning his SpO2 dropped to 80s and his BIPAP was put on 100% FiO2 briefly. Currently at 14/8/80%. He is awake and responds with a thumbs up. 04/04/25: Patient seen and examined today at bedside. He remains in the ICU . No acute events overnight. 04/05/25: Patient evaluated at bedside. He continues to be in the ICU and on Airvo. 04/06/25: Patient seen and examined at bedside today. He remains in the ICU and is on Airvo. Patient was on BiPAP overnight with settings of 14/8/80%. 04/07/25: Patient evaluated at bedside in the ICU. He remains on the Airvo, with BIPAP use overnight. Patient will be transferred to a bedside chair later today. 04/08 Patient was seen and examined. Minimal sensation in the RLE. On 60L Airvo. Antibiotics include Fluconazole IV (D9) and Cefzolin IV (D4). He has already completed a course of Meropenem for Serratia PNA. CBC and BMP significant for WBC 11.57, RBC 4.01, Hg 12, Hct 35.8, Plt 84, Na 133, Cr 0.43, glu 128, Ca 8. CXR shows small L pleural effusion with adjacent opacities and chronic left diaphragm elevation, similar to yesterday. 04/09/25: Patient seen and examined at bedside. He remains in the ICU and is on Airvo. Used BIPAP overnight at 14/8/65%. States that his shortness of breath is somewhat better today, had a bowel movement yesterday Review of systems: Pertinent positives and negatives as discussed in HPI, a complete review of systems was performed and all other systems are negative. Vitals: Signs Reviewed Physical examination: General: nontoxic, no distress, appears at stated age, currently on Airvo Derm: Warm, dry Head: Atraumatic, normocephalic, symmetric Eyes: EOMI, no lid lag, anicteric sclera Mouth: No lip lesion, mucus membranes moist Cardiovascular: S1S2 reg, no murmur Lungs: Bilateral rhonchi, more prominent on the left, no accessory muscle use Abdominal: Soft, nontender to palpation, no appreciable organomegaly Ext: No gross muscle atrophy, no edema, no contractures Neuro: Awake and alert, flaccid paralysis is b/l LE, increased sensation from abdomen down to knees bilaterally and on right great toe Psych: Appropriate affect Data Reviewed Today: Labs: WBC 10.28, hemoglobin 12.1,plt 85, sodium 131, potassium 3.8, glucose 177, magnesium 1.7 Imaging: Chest Xray today shows persistent greater than right basilar infiltrate persist with small pleural effusion, possible pneumomediastinum, no significant change from yesterday Assessment/Plan: Patient is a 64 year old male who presented with sudden onset numbness and weakness in bilateral lower extremities. He underwent extensive cervical decompression with discectomy and fusion. He was then intubated due to acute hypoxemic respiratory failure secondary to severe atelectasis and underlying pne umonia. Extubated on 04/02/25. Patient continues to be in the ICU and on Airvo with BIPAP use overnight. Active: #. Acute hypoxemic respiratory failure secondary to severe atelectasis and mucous plugging status post bronchoscopy x 2 #. Suspected underlying pneumonia secondary to Serratia #. Leukocytosis, improving CT angio of chest shows markedly progressive left lung volume loss with marked atelectasis increasing suspicion for endobronchial obstruction/neoplasm and further evaluation may be indicated. Interval development of mild right lower lobe atelectasis. Bronchial washings culture showed positive for Serratia, nasal swab showed positive for Staph aureus, not MRSA Extubated on 04/02/25 Currently on Airvo 50% FiO2, continue to wean down FiO2 Continue IV Solu-Medrol to 40 mg every 8 hours Continue DuoNebs 4 times daily and every 2 hours as needed Meropenem and Fluconazole discontinued Continue with Mucomyst, DuoNebs 4 times daily, every 2 hours as needed Encourage incentive spirometry Monitor CBC Pulm crit is following Discussed with SLURRY WORKER #. Cervical myelopathy secondary to severe spinal canal stenosis involving C7-T1 #. Status post extensive cervical decompression with discectomy at C7-T1 and fusion with extension of fusion from C3-C7 with new extension down to T3 #. Severe right L5-S1 neuroforaminal stenosis #. Moderate bilateral L4-L5 neuroforaminal stenosis Orthopedic surgery following status post extensive cervical decompression with dissecting at C7-T1 and fusion with extension of fusion from C3-C7 with new extension down to T3 Continue Solu-Medrol 40 mg IV every 8 hours Continue Cefazolin due to drainage at wound Continue inpatient rehab Resume lisinopril, hydralazine as needed Continue neurochecks every 4 hours and as needed. Maintain fall precautions Continue Samuels catheter management Continue Unna boot bilaterally to prevent foot drop Neurology consultation is appreciated, discussed with neurology Dr. Casey, no additional recommendations, neurology signed off Orthopedic surgery is following, recommend keeping cervical collar intact at all times PT/OT following, when medically stable clear patient will be planning to be discharged to a spinal cord facility for rehabilitation. #. Type II wsq-[id number]-hrsieykyx diabetes mellitus Hyperglycemia likely secondary to high-dose steroids being administered at this time. Continue Accu-Cheks, hypoglycemia precautions, continue Lantus to 50 units subcu daily as basal insulin Continue sliding scale insulin Continue premeal insulin 10 units #. Bilateral lower extremity edema Bilateral lower extremity Doppler ultrasound negative for DVT #. Hyponatremia Na 131, secondary to lasix vs steroid Monitor BMP #. Hypokalemia K 3.8 Potassium replaced Monitor BMP #. Thrombocytopenia Plt count 85 Obtain HIT Ab Monitor CBC Chronic: #. Hypertension #. Hyperlipidemia #. Obstructive sleep apnea #. BPH Continue lisinopril 40 mg p.o. daily, atorvastatin 40 mg p.o at bedtime, t amsulosin 0.4 mg p.o. daily, continue CPAP nightly and while napping. F: None E: Replete as required N: Regular diet with Ensure A: Bed bound DVT prophylaxis: Lovenox 40 mg subcu daily Code status: Full code Anticipated discharge place: [facility] Anticipated discharge time: Pending clinical course Dictation was produced using [employer] dictation software. please excuse any grammatical, word or spelling errors. Urban Hughes MD PGY-1 IM Objective - Vital Signs Vital signs: Vital Signs Temp 97.9 F 04/09/25 04:00 Pulse 62 04/09/25 06:00 Resp 14 04/09/25 06:00 BP 93/67 04/09/25 06:00 Pulse Ox 98 04/09/25 06:00 FiO2 65 04/09/25 06:00 Intake & Output 04/08/25 04/08/25 04/09/25 06:59 18:59 06:59 Intake Total 130 400 210 Output Total 1050 1045 945 Balance -661 -934 -561 Weight 113.2 kg 113.2 kg Intake: IV 130 220 210 ceFAZolin 3 gm In Sodium 100 100 Chloride 0.9% 100 ml @ 200 mls/hr IVPB Q8H [facility] Rx#:[id number] kvo 130 120 110 Oral 180 Output: Urine 1050 1045 945 Other: Voiding Method Indwelling Catheter Indwelling Catheter Indwelling Catheter - Labs CBC & Chem 7: 04/09/25 05:27 04/09/25 05:27 Labs: Abnormal Lab Results - Last 24 Hours (Table) 04/08/25 04/08/25 04/08/25 Range/Units 11:42 16:24 19:45 WBC (4.50-10.00) 10*3/uL RBC (4.40-5.60) 10*6/uL Hgb (13.0-17.0) g/dL Hct (39.6-50.0) % Plt Count (140-440) 10*3/uL Sodium (137-145) mmol/L Creatinine (0.66-1.25) mg/dL Glucose (74-99) mg/dL POC Glucose (mg/dL) 171 H 220 H 241 H (70-110) mg/dL Calcium (8.4-10.2) mg/dL 04/09/25 04/09/25 04/09/25 Range/Units 05:27 05:27 06:14 WBC 10.28 H (4.50-10.00) 10*3/uL RBC 4.06 L (4.40-5.60) 10*6/uL Hgb 12.1 L (13.0-17.0) g/dL Hct 36.3 L (39.6-50.0) % Plt Count 85 L (140-440) 10*3/uL Sodium 131 L (137-145) mmol/L Creatinine 0.37 L (0.66-1.25) mg/dL Glucose 193 H (74-99) mg/dL POC Glucose (mg/dL) 177 H (70-110) mg/dL Calcium 8.2 L (8.4-10.2) mg/dL
[2025-04-09 12:10] LABS: Glucose,Whole Blood 215 mg/dL (70-110)
--- NOTE | 2025-04-09 15:38 | P.PN ---
Subjective Progress Note Date: 04/09/25 This is a 64-year-old male patient was undergone a C 7 T1 discectomy, done posteriorly with wide laminectomy and foraminotomy and partial facetectomy. The patient was experiencing cervical myelopathy with severe bilateral lower extremity weakness and T8 paresthesia. The patient has previous history of cervical spine fusion C2-C7. The patient was found to have a large herniated disc C7-T1 with severe spinal cord stenosis and based on that the patient was taken to the operating room and underwent a C7-T1 discectomy on 03/21/2025. The patient has become progressively more hypoxic. The patient developed lower lobe pneumonia left more than right. 04/09/2025 the patient is being seen for a follow-up in the intensive care unit. This morning, the patient is awake and alert. He has gotten progressively more debilitated over the past 10 days. He is managed in the intensive care unit for his acute hypoxic respiratory failure and left lower lobe pneumonia. He has required 2 bronchoscopies and the bronchoscopy is done on 03/26/2025 showed Serratia marcescens and the patient's nasal screen was positive for MSSA. The most recent chest x-ray from this morning shows a persistent consolidation in the left lung base and some atelectatic change in lung base bilaterally. No significant interval change compared to earlier chest x-rays. The patient remains on Airvo and earlier this morning the patient was on 6 L with an FiO2 of 65%. IV fluids are currently at KVO. The patient remains on IV cefazolin. Samuels catheter is in place. He has developed increased edema in his right upper extremity. Hemodynamically stable. The white cell count is at 10.2 with a hemoglobin 12.1 and a platelet count of 85. BUN is 19 with a creatinine of 0.37. Remains on IV Solu-Medrol. Spine surgery is on the case. He continues to have difficulties with lower extremity paralysis. He does have some numbness which is improved around his abdomen towards the groin. He does not have any sensation in his lower extremities except for some increased sensation in his right greater toe and no motor function in his lower extremities bilaterally. He is wearing compression stockings and boots. He does have some weakness also in his upper extremities. The patient is postop day #17. He is awake and alert and communicating. He is off the BiPAP. He remains on NovoLog 10 units 3 times daily with meals. Rest of the medications are essentially unchanged. Objective - Vital Signs Vital signs: Vital Signs Temp 97.6 F 04/09/25 08:00 Pulse 62 04/09/25 08:00 Resp 15 04/09/25 08:00 BP 120/68 04/09/25 08:00 Pulse Ox 89 L 04/09/25 08:00 FiO2 65 04/09/25 08:00 Intake & Output 04/08/25 04/09/25 04/09/25 18:59 06:59 18:59 Intake Total 400 210 220 Output Total 1045 945 175 Balance -645 -735 45 Weight 113.2 kg Intake: IV 220 210 20 ceFAZolin 3 gm In Sodium 100 100 Chloride 0.9% 100 ml @ 200 mls/hr IVPB Q8H [facility] Rx#:[id number] kvo 120 110 20 Oral 180 200 Output: Urine 1045 945 175 Other: Voiding Method Indwelling Catheter Indwelling Catheter - Exam General: nontoxic, no distress, appears at stated age, patient is currently on Airvo. The patient is wearing a hard neck collar. Derm: warm, dry, intact, dressing noted at the back of neck with no signs of drainage or bleeding. Head: atraumatic, normocephalic, symmetric Eyes: EOMI, anicteric sclera Mouth: no lip lesion, mucus membranes moist Cardiovascular: S1 S2 reg, no murmur, rubs, or gallops Lungs: Diminished breath on the left compared to the right. Nearly absent breath on the left lung base Abdominal: soft, a bowel sounds are present in the patient's abdomen is obvious less tympanic compared to yesterday. Extremities: no gross muscle atrophy, no edema, no contractures, patient is unable to move bilateral lower extremity, increased edema in the right upper extremity. Neuro: Alert, Oriented, CNII-XII grossly intact, gait cannot be assessed as the patient has absent motor function lower extremities bilaterally patient has b ilateral foot drop. Reflexes are diminished. No Babinski. No clonus. Psych: well appearing, appropriate affect - Labs CBC & Chem 7: 04/09/25 05:27 04/09/25 05:27 Labs: Abnormal Lab Results - Last 24 Hours (Table) 04/08/25 04/08/25 04/08/25 Range/Units 11:42 16:24 19:45 WBC (4.50-10.00) 10*3/uL RBC (4.40-5.60) 10*6/uL Hgb (13.0-17.0) g/dL Hct (39.6-50.0) % Plt Count (140-440) 10*3/uL Sodium (137-145) mmol/L Creatinine (0.66-1.25) mg/dL Glucose (74-99) mg/dL POC Glucose (mg/dL) 171 H 220 H 241 H (70-110) mg/dL Calcium (8.4-10.2) mg/dL 04/09/25 04/09/25 04/09/25 Range/Units 05:27 05:27 06:14 WBC 10.28 H (4.50-10.00) 10*3/uL RBC 4.06 L (4.40-5.60) 10*6/uL Hgb 12.1 L (13.0-17.0) g/dL Hct 36.3 L (39.6-50.0) % Plt Count 85 L (140-440) 10*3/uL Sodium 131 L (137-145) mmol/L Creatinine 0.37 L (0.66-1.25) mg/dL Glucose 193 H (74-99) mg/dL POC Glucose (mg/dL) 177 H (70-110) mg/dL Calcium 8.2 L (8.4-10.2) mg/dL Assessment and Plan Plan: Acute hypoxic respiratory failure, multifactorial. The patient has developed postoperative atelectasis of the left lower lobe and the patient has significant elevation in volume loss in the left lung compared to the right.. Previous bronchoscopy and sputum analysis was positive for Serratia marcescens. Nasal culture is positive for MSSA and the patient remains on IV cefazolin. He has a very weak cough and poor ability to perform pulmonary toileting. Shortness of breath secondary to above, stable for now T8 spinal cord injury. The patient has severe spinal canal stenosis at the level of C7/T1 with motor weakness in the lower extremities in addition to myelopathy. The patient is post C7/T1 discectomy with decompression and fusion and the patient also had extension of a previous C2/7 fusion to T3. Patient is postop day # 17 Abdominal distention/ileus, recovered Obstructive sleep apnea maintain CPAP therapy on outpatient basis Diabetes mellitus type 2, with steroid-induced hyperglycemia Hypotension, rule out septic versus neurogenic hypotension post spine surgery Sinus tachycardia Hyperlipidemia Seroma in the posterior soft tissues along the length of the skin jarad, spinal surgeries following Bilateral lower extremity weakness, ongoing motor weakness in the lower extremities bilaterally with absent motor function at this point with bilateral foot drop. Patient's sensations in the lower limbs have improved, but now patient is completely paraplegic. T8 p spinal cord injury with motor paralysis lower extremities bilaterally with absent sensation. He does have some feelings in his lower abdomen towards the groin. History of prior cervical fusion C3-C7 History of severe L5-S1 neuroforaminal stenosis Plan Keep the patient on Airvo wean the FiO2 down to 50% wean the flow down to 50%. Chest x-ray findings are stable Continue IV cefazolin Incentive spirometer Aggressive pulmonary toileting Continue DuoNeb nebulizer treatments [id number] Pain control and muscle relaxants IV fluids to KVO Dilaudid for pain control in combination with [place] as needed Flexeril Diazepam as needed Continue IV Solu-Medrol Lantus insulin 50 units daily along with NovoLog 10 units with meals and a sliding Scale coverage Keep Samuels catheter in place Aggressive pulmonary toileting Ultrasound right upper extremity to rule out DVT Will keep the patient in ICU. Evaluation was done at 33 minutes. Time with Patient: Greater than 30
[2025-04-09 16:27] LABS: Glucose,Whole Blood 207 mg/dL (70-110)
[2025-04-09 19:50] LABS: Glucose,Whole Blood 206 mg/dL (70-110)
[2025-04-10 06:28] LABS: African American GFR (CKD) >90 (>60 ml/min/1.73 sqM); Anion Gap 2 mmol/L; Blood Urea Nitrogen 17 mg/dL (9-20); Calcium 8.1 mg/dL (8.4-10.2); Carbon Dioxide 32 mmol/L (22-30); Chloride 102 mmol/L (98-107); Glucose 166 mg/dL (74-99); Magnesium 1.7 mg/dL (1.6-2.3); Non-African American GFR(CKD) >90 (>60 ml/min/1.73 sqM); Potassium 3.6 mmol/L (3.5-5.1); Sodium 136 mmol/L (137-145)
[2025-04-10 06:32] LABS: Glucose,Whole Blood 159 mg/dL (70-110)
--- NOTE | 2025-04-10 06:38 | XR ---
EXAMINATION TYPE: XR chest 1V portable DATE OF EXAM: 04/10/2025 CLINICAL INDICATION: Male, 65 years old with history of follow up bibasilar infiltrates, progress elina dy. TECHNIQUE: Single AP portable upright view of the chest is obtained. COMPARISON: Chest x-ray from one day earlier FINDINGS: Left basilar opacity is redemonstrated. Right lung remains clear. Cardiac silhouette size is stable and within normal limits. Extensive surgical change to the cervical thoracic spine is redem onstrated. Pneumomediastinum superiorly is suspected. IMPRESSION: Persistent left basilar acute infiltrate and/or atelectasis with small left pleural effus ion. Probable superior pneumomediastinum. No significant change from one day earlier. [facility], , 04/10/2025 6:35 AM
[2025-04-10] MEDS ORDERED: Potassium Replacement Protocol 1 EACH MISC MISCELLANE PRN (06:41)
[2025-04-10] MEDS ORDERED: Magnesium Replacement Protocol 1 EACH MISC MISCELLANE PRN (06:41)
[2025-04-10 06:46] LABS: HCT 35.9 % (39.6-50.0); HGB 11.7 g/dL (13.0-17.0); MCH 29.5 pg (27.0-32.0); MCHC 32.6 g/dL (32.0-37.0); MCV 90.4 fL (80.0-97.0); RBC 3.97 10*6/uL (4.40-5.60); RDW 14.6 % (11.5-14.5); WBC 8.73 10*3/uL (4.50-10.00)
[2025-04-10 06:48] LABS: Platelet Count 90 10*3/uL (140-440)
[2025-04-10] MEDS: POTASSIUM CHLORIDE ER 20 MEQ TAB.ER PO SCH (06:55)
[2025-04-10] MEDS: MAGNESIUM SULFATE-D5W PMX 1 GM in DEXTROSE/WATER 1 100ML.BAG IVPB ONE (06:56)
[2025-04-10 11:33] LABS: Glucose,Whole Blood 197 mg/dL (70-110)
--- NOTE | 2025-04-10 11:45 | P.PN ---
Progress Note - Text Progress Note Date: 04/10/25 Postoperative day #20 Patient is seen and examined today at bedside. He is talking comfortably with nasal oxygen supplementation. His collar is intact. Physical Exam Afebrile Abdomen is soft nontender. His chest has limited excursion particularly to the left with inspiration expiration The incision site is clean dry and intact. No erythema there is no purulence. There is still some swelling seroma drainage with no evidence of purulence Paralysis of his lower extremities with upper extremity weakness as well proximal. Calves and thighs were soft nontender without evidence of DVT. Assessment/Plan Status post posterior cervical decompression with discectomy and fusion C7-T1 with extension of his fusion from C3-T3 Bilateral lower extremity paralysis Severe spinal cord injury Respiratory failure stabilizing Patient is progressing with some stability in his respiratory status overall he is continue management per critical care. We will continue to increase the patient's mobilization with therapy. Hopefully we can start to increase some of his strength upper body to see if he is able to hold himself up when seated. She will make long-term spinal cord injury care while monitoring his respiratory status. They are working on this with case management for appropriate placement posthospitalization He will continue his management per critical care appropriately we'll continue to follow patient closely.
--- NOTE | 2025-04-10 12:18 | P.PN ---
Subjective Progress Note Date: 04/10/25 Principal diagnosis: Hospital course: Patient is a pleasant 64-year-old male with a past medical history of hypertension, hyperlipidemia, type II orn-mqttepn-ipzfnxojy diabetes mellitus, involuntary limb muscle fasciculations/movements on Mirapex and last seen neurologist (Dr. Wheeler) approximately 2 months ago, migraine headaches, depression. Presented to the emergency department with a chief complaint of sudden onset numbness extending from periumbilical region downwards throughout groin and bilateral lower extremities followed by weakness of bilateral lower extremities. Patient states he was moving some plants at home when he had sudden onset of numbness around his lower abdomen circling around him like a belt that quickly radiated into his groin and into bilateral lower extremities accompanied by weakness of bilateral lower extremities which resulted in his legs giving out from beneath him causing him to fall to the ground. Patient de nied having any dizziness or lightheadedness, headache, neck or back pain, or experiencing any pain in his abdomen, groin, or lower extremities. He denies hitting his head during the fall and denies having any loss of consciousness. But reports due to the sudden onset numbness and weakness he was unable to stand back up and had to have his call EMS for transfer to the hospital. Upon arrival to our facility, patient underwent evaluation in the emergency department. Vital signs upon arrival show blood pressure 165/97, heart rate 88, respiratory rate 18, temp 98.8 F, and SpO2 of 97% on room air. CT lumbar spine CT abdomen and pelvis was also negative for acute intra-abdominal process completed showing no evidence for spinal fracture, no evidence for significant spinal canal stenosis revealing severe right L5-S1 neuroforaminal stenosis and moderate bilateral L4-L5 neuroforaminal stenosis, revealing a right middle lobe pulmonary nodule 8 mm, prostamegaly, colonic diverticulosis, and bilateral adrenal myolipoma's. Labs completed and reviewed. CBC unremarkable. BMP showing hyperglycemia with blood glucose of 146. Liver profile normal findings. Urinalysis positive for glucose and ketones but negative for infection. Patient was admitted under services with consultation to neurology and orthospine surgery. MRI lumbar spine was completed showing no definitive evidence of disc herniation or significant spinal canal stenosis revealing minimal disc degeneration with associated osteoarthritic changes. Patient underwent extensive cervical spinal surgery on the evening of 03/20/2025 through 03/21/2025. 04/02/25: Patient seen and examined at bedside today in the ICU. He was intubated but off sedation and weaning parameters were being obtained. No acute events overnight. He denies any acute complaints today. 04/03/25: Patient evaluated at bedside. He remains in the ICU. He was extubated yesterday. He did well overnight, but today morning his SpO2 dropped to 80s and his BIPAP was put on 100% FiO2 briefly. Currently at 14/8/80%. He is awake and responds with a thumbs up. 04/04/25: Patient seen and examined today at bedside. He remains in the ICU . No acute events overnight. 04/05/25: Patient evaluated at bedside. He continues to be in the ICU and on Airvo. 04/06/25: Patient seen and examined at bedside today. He remains in the ICU and is on Airvo. Patient was on BiPAP overnight with settings of 14/8/80%. 04/07/25: Patient evaluated at bedside in the ICU. He remains on the Airvo, with BIPAP use overnight. Patient will be transferred to a bedside chair later today. 04/08 Patient was seen and examined. Minimal sensation in the RLE. On 60L Airvo. Antibiotics include Fluconazole IV (D9) and Cefzolin IV (D4). He has already completed a course of Meropenem for Serratia PNA. CBC and BMP significant for WBC 11.57, RBC 4.01, Hg 12, Hct 35.8, Plt 84, Na 133, Cr 0.43, glu 128, Ca 8. CXR shows small L pleural effusion with adjacent opacities and chronic left diaphragm elevation, similar to yesterday. 04/09/25: Patient seen and examined at bedside. He remains in the ICU and is on Airvo. Used BIPAP overnight at 14/8/65%. 04/10/25: Patient evaluated at bedside today in the ICU. He is down to 10 L of high flow nasal cannula and used BIPAP overnight at 14/8/65%. He reports increased weakness of his right arm. He reports improvement in his shortness of breath. Review of systems: Pertinent positives and negatives as discussed in HPI, a complete review of systems was performed and all other systems are negative. Vitals: Signs Reviewed Physical examination: General: nontoxic, no distress, appears at stated age, currently on Airvo Derm: Warm, dry Head: Atraumatic, normocephalic, symmetric Eyes: EOMI, no lid lag, anicteric sclera Mouth: No lip lesion, mucus membranes moist Cardiovascular: S1S2 reg, no murmur Lungs: Bilateral rhonchi, more prominent on the left, no accessory muscle use Abdominal: Soft, nontender to palpation, no appreciable organomegaly Ext: No gross muscle atrophy, no edema, no contractures Neuro: Awake and alert, flaccid paralysis is b/l LE, increased sensation from abdomen down to knees bilaterally and on right great toe Psych: Appropriate affect Data Reviewed Today: Labs: WBC 8.73, hemoglobin 11.7, sodium 136, bicarb 32, glucose 159, calcium 8. 1, creatinine 0.49 Imaging: Chest Xray today shows persistent left basilar acute infiltrate and/or atelectasis with small left oral effusion, probable superior pneumomediastinum, no significant change from 1 day earlier Assessment/Plan: Patient is a 64 year old male who presented with sudden onset numbness and weakness in bilateral lower extremities. He underwent extensive cervical decompression with discectomy and fusion. He was then intubated due to acute hypoxemic respiratory failure secondary to severe atelectasis and underlying pneumonia. Extubated on 04/02/25. Patient continues to be in the ICU and is on 10L HFNC with BIPAP use overnight. Active: #. Acute hypoxemic respiratory failure secondary to severe atelectasis and mucou s plugging status post bronchoscopy x 2 #. Healthcare acquired pneumonia secondary to Serratia #. Leukocytosis,resolved CT angio of chest shows markedly progressive left lung volume loss with marked atelectasis increasing suspicion for endobronchial obstruction/neoplasm and further evaluation may be indicated. Interval development of mild right lower lobe atelectasis. Bronchial washings culture showed positive for Serratia, nasal swab showed positive for Staph aureus, not MRSA Extubated on 04/02/25 Currently on 10L HFNC, continue to wean down FiO2 Decrease IV Solu-Medrol to 40 mg every 12 hours Continue DuoNebs 4 times daily and every 2 hours as needed Meropenem and Fluconazole discontinued Continue with Mucomyst, DuoNebs 4 times daily, every 2 hours as needed Encourage incentive spirometry Monitor CBC Pulm crit is following Discussed with COMBAT ENGINEER #. Cervical myelopathy secondary to severe spinal canal stenosis involving C7-T1 #. Status post extensive cervical decompression with discectomy at C7-T1 and fusion with extension of fusion from C3-C7 with new extension down to T3 #. Severe right L5-S1 neuroforaminal stenosis #. Moderate bilateral L4-L5 neuroforaminal stenosis Orthopedic surgery following status post extensive cervical decompression with dissecting at C7-T1 and fusion with extension of fusion from C3-C7 with new extension down to T3 Continue Solu-Medrol 40 mg IV every 8 hours Continue Cefazolin due to drainage at wound Resume lisinopril, hydralazine as needed Continue neurochecks every 4 hours and as needed. Maintain fall precautions Voiding trial today Continue Unna boot bilaterally to prevent foot drop Orthopedic surgery is following, recommend keeping cervical collar intact at all times PT/OT following, when medically stable clear patient will be planning to be discharged to a spinal cord facility for rehabilitation Plan for discharge to [facility] #. Type II pav-tmukuet-anxpmxvwa diabetes mellitus Hyperglycemia likely secondary to high-dose steroids being administered at this time. Continue Lantus to 50 units subcu daily as basal insulin Continue sliding scale insulin with ACHS blood glucose monitoring Continue premeal insulin 10 units Monitor for hypoglycemia #. Bilateral lower extremity edema Bilateral lower extremity Doppler ultrasound negative for DVT #. Hyponatremia, resolved Na 136, secondary to lasix vs steroid Monitor BMP #. Hypokalemia K 3.6 Potassium replacement per protocol Monitor BMP #. Thrombocytopenia Plt count 90 Obtain HIT Ab Monitor CBC #. Hypomagnesemia Mg 1.7 Magnesium replacement per protocol Monitor Mg Chronic: #. Hypertension #. Hyperlipidemia #. Obstructive sleep apnea #. BPH Continue lisinopril 40 mg p.o. daily, atorvastatin 40 mg p.o at bedtime, tamsulosin 0.4 mg p.o. daily, continue CPAP nightly and while napping. F: None E: Replete as required N: Regular diet with Ensure A: Bed bound DVT prophylaxis: Lovenox 40 mg subcu daily Code status: Full code Anticipated discharge place: [facility] [place] Anticipated discharge time: Possibly today Dictation was produced using [employer] dictation software. please excuse any grammatical, word or spelling errors. Urban Hughes MD PGY-1 IM I saw and evaluated the patient during the morgan and critical portions of this encounter, and discussed the case in detail with the resident author of this note, I agree with the Assessment and Plan, and my changes, if any, are highlighted in blue. Objective - Vital Signs Vital signs: Vital Signs Temp 98.6 F 04/10/25 04:00 Pulse 56 L 04/10/25 06:00 Resp 16 04/10/25 06:00 BP 122/59 04/10/25 06:00 Pulse Ox 100 04/10/25 06:00 FiO2 65 04/10/25 04:17 Intake & Output 04/09/25 04/09/25 04/10/25 06:59 18:59 06:59 Intake Total 210 810 480 Output Total 945 1060 1095 Balance -735 -250 -615 Weight 113.2 kg 113.2 kg 110 kg Intake: IV 210 160 330 ceFAZolin 3 gm In Sodium 100 50 200 Chloride 0.9% 100 ml @ 200 mls/hr IVPB Q8H [facility] Rx#:[id number] kvo 110 110 130 Oral 650 150 Blood Product 0 Output: Urine 945 1060 1095 Other: Voiding Method Indwelling Catheter Indwelling Catheter Indwelling Catheter # Voids 1 - Labs CBC & Chem 7: 04/10/25 05:12 04/10/25 05:12 Labs: Abnormal Lab Results - Last 24 Hours (Table) 04/09/25 04/09/25 04/09/25 Range/Units 12:08 16:26 19:48 RBC (4.40-5.60) 10*6/uL Hgb (13.0-17.0) g/dL Hct (39.6-50.0) % Plt Count (140-440) 10*3/uL Sodium (137-145) mmol/L Carbon Dioxide (22-30) mmol/L Creatinine (0.66-1.25) mg/dL Glucose (74-99) mg/dL POC Glucose (mg/dL) 215 H 207 H 206 H (70-110) mg/dL Calcium (8.4-10.2) mg/dL 04/10/25 04/10/25 04/10/25 Range/Units 05:12 05:12 06:31 RBC 3.97 L (4.40-5.60) 10*6/uL Hgb 11.7 L (13.0-17.0) g/dL Hct 35.9 L (39.6-50.0) % Plt Count 90 L (140-440) 10*3/uL Sodium 136 L (137-145) mmol/L Carbon Dioxide 32 H (22-30) mmol/L Creatinine 0.49 L (0.66-1.25) mg/dL Glucose 166 H (74-99) mg/dL POC Glucose (mg/dL) 159 H (70-110) mg/dL Calcium 8.1 L (8.4-10.2) mg/dL
--- NOTE | 2025-04-10 13:45 | P.PN ---
Subjective Progress Note Date: 04/10/25 This is a 64-year-old male patient was undergone a C 7 T1 discectomy, done posteriorly with wide laminectomy and foraminotomy and partial facetectomy. The patient was experiencing cervical myelopathy with severe bilateral lower extremity weakness and T8 paresthesia. The patient has previous history of cervical spine fusion C2-C7. The patient was found to have a large herniated disc C7-T1 with severe spinal cord stenosis and based on that the patient was taken to the operating room and underwent a C7-T1 discectomy on 03/21/2025. The patient has become progressively more hypoxic. The patient developed lower lobe pneumonia left more than right. 04/09/2025 the patient is being seen for a follow-up in the intensive care unit. This morning, the patient is awake and alert. He has gotten progressively more debilitated over the past 10 days. He is managed in the intensive care unit for his acute hypoxic respiratory failure and left lower lobe pneumonia. He has required 2 bronchoscopies and the bronchoscopy is done on 03/26/2025 showed Serratia marcescens and the patient's nasal screen was positive for MSSA. The most recent chest x-ray from this morning shows a persistent consolidation in the left lung base and some atelectatic change in lung base bilaterally. No significant interval change compared to earlier chest x-rays. The patient remains on Airvo and earlier this morning the patient was on 6 L with an FiO2 of 65%. IV fluids are currently at KVO. The patient remains on IV cefazolin. Samuels catheter is in place. He has developed increased edema in his right upper extremity. Hemodynamically stable. The white cell count is at 10.2 with a hemoglobin 12.1 and a platelet count of 85. BUN is 19 with a creatinine of 0.37. Remains on IV Solu-Medrol. Spine surgery is on the case. He continues to have difficulties with lower extremity paralysis. He does have some numbness which is improved around his abdomen towards the groin. He does not have any sensation in his lower extremities except for some increased sensation in his right greater toe and no motor function in his lower extremities bilaterally. He is wearing compression stockings and boots. He does have some weakness also in his upper extremities. The patient is postop day #17. He is awake and alert and communicating. He is off the BiPAP. He remains on NovoLog 10 units 3 times daily with meals. Rest of the medications are essentially unchanged. 05/07/2025, patient is being seen for a follow-up. Oxygenation is stable for now. The patient was taken off the Airvo yesterday and the patient was placed on 10 L of oxygen by nasal cannula. Earlier this morning, the patient showed adequate oxygenation and the patient was further weaned down to 8 L/min nasal cannula. Chest x-ray shows a stable left lower lobe consolidation. The patient remains on the same antibiotics and the patient remains IV cefazolin. Cough remains weak. IV fluids are currently at KVO. No fever or chills. He does juan ve some sensation in lower extremities bilaterally although this is minimal. Motor function is still absent. The white cell count 8.7 with a hemoglobin 11.7 and a platelet count of 90. BUN 17 with a creatinine 0.49 and sodium is 136. No other significant events overnight. Will considering discharging this patient to an LTAC facility. The patient is postop day #18. Objective - Vital Signs Vital signs: Vital Signs Temp 98.6 F 04/10/25 04:00 Pulse 87 04/10/25 08:07 Resp 20 04/10/25 07:00 BP 108/56 04/10/25 07:00 Pulse Ox 94 L 04/10/25 07:51 FiO2 65 04/10/25 04:17 Intake & Output 04/09/25 04/10/25 04/10/25 18:59 06:59 18:59 Intake Total 810 480 180 Output Total 1060 1095 40 Balance -250 -615 140 Weight 113.2 kg 110 kg Intake: IV 160 330 30 ceFAZolin 3 gm In Sodium 50 200 Chloride 0.9% 100 ml @ 200 mls/hr IVPB Q8H [facility] Rx#:[id number] kvo 110 130 30 Intake, IV Titration 100 Amount Magnesium Sulfate-D5w Pmx 100 1 gm In Dextrose/Water 1 100ml.bag @ 100 mls/hr IVPB ONCE ONE Rx#: [id number] Oral 650 150 50 Blood Product 0 Output: Urine 1060 1095 40 Other: Voiding Method Indwelling Catheter Indwelling Catheter # Voids 1 - Exam General: nontoxic, no distress, appears at stated age, patient is currently on oxygen 8 L/min nasal cannula. The patient is wearing a hard neck collar. Derm: warm, dry, intact, dressing noted at the back of neck with no signs of drainage or bleeding. Head: atraumatic, normocephalic, symmetric Eyes: EOMI, anicteric sclera Mouth: no lip lesion, mucus membranes moist Cardiovascular: S1 S2 reg, no murmur, rubs, or gallops Lungs: Diminished breath on the left compared to the right. Nearly absent breath on the left lung base Abdominal: soft, a bowel sounds are present in the patient's abdomen is obvious less tympanic compared to yesterday. Extremities: no gross muscle atrophy, no edema, no contractures, patient is unable to move bilateral lower extremity, increased edema in the right upper extremity. Neuro: Alert, Oriented, CNII-XII grossly intact, gait cannot be assessed as the patient has absent motor function lower extremities bilaterally patient has bilateral foot drop. Reflexes are diminished. No Babinski. No clonus. Psych: well appearing, appropriate affect - Labs CBC & Chem 7: 04/10/25 05:12 04/10/25 05:12 Labs: Abnormal Lab Results - Last 24 Hours (Table) 04/09/25 04/09/25 04/09/25 Range/Units 12:08 16:26 19:48 RBC (4.40-5.60) 10*6/uL Hgb (13.0-17.0) g/dL Hct (39.6-50.0) % Plt Count (140-440) 10*3/uL Sodium (137-145) mmol/L Carbon Dioxide (22-30) mmol/L Creatinine (0.66-1.25) mg/dL Glucose (74-99) mg/dL POC Glucose (mg/dL) 215 H 207 H 206 H (70-110) mg/dL Calcium (8.4-10.2) mg/dL 04/10/25 04/10/25 04/10/25 Range/Units 05:12 05:12 06:31 RBC 3.97 L (4.40-5.60) 10*6/uL Hgb 11.7 L (13.0-17.0) g/dL Hct 35.9 L (39.6-50.0) % Plt Count 90 L (140-440) 10*3/uL Sodium 136 L (137-145) mmol/L Carbon Dioxide 32 H (22-30) mmol/L Creatinine 0.49 L (0.66-1.25) mg/dL Glucose 166 H (74-99) mg/dL POC Glucose (mg/dL) 159 H (70-110) mg/dL Calcium 8.1 L (8.4-10.2) mg/dL Assessment and Plan Plan: Acute hypoxic respiratory failure, multifactorial. The patient has developed postoperative atelectasis of the left lower lobe and the patient has significant elevation in volume loss in the left lung compared to the right.. Previous bronchoscopy and sputum analysis was positive for Serratia marcescens. Nasal culture is positive for MSSA and the patient remains on IV cefazolin. He has a very weak cough and poor ability to perform pulmonary toileting. Oxygenation is improved over the past 24 hours. The patient is currently off the Airvo and the patient is on 8 L of oxygen nasal cannula. Chest x-ray shows a stable left lower lobe consolidation. Shortness of breath secondary to above, stable for now T8 spinal cord injury. The patient has severe spinal canal stenosis at the leve l of C7/T1 with motor weakness in the lower extremities in addition to myelopathy. The patient is post C7/T1 discectomy with decompression and fusion and the patient also had extension of a previous C2/7 fusion to T3. Patient is postop day # 18 Abdominal distention/ileus, recovered Obstructive sleep apnea maintain CPAP therapy on outpatient basis Diabetes mellitus type 2, with steroid-induced hyperglycemia Hypotension, rule out septic versus neurogenic hypotension post spine surgery Sinus tachycardia Hyperlipidemia Seroma in the posterior soft tissues along the length of the skin jarad, spinal surgeries following Bilateral lower extremity weakness, ongoing motor weakness in the lower extremities bilaterally with absent motor function at this point with bilateral foot drop. Patient's sensations in the lower limbs have improved, but now patient is completely paraplegic. T8 p spinal cord injury with motor paralysis lower extremities bilaterally with absent sensation. He does have some feelings in his lower abdomen towards the groin. History of prior cervical fusion C3-C7 History of severe L5-S1 neuroforaminal stenosis Plan Keep the patient on high flow oxygen at 8 L and gradual weaning down to maintain saturation above 90% Chest x-ray findings are stable Continue IV cefazolin Incentive spirometer Aggressive pulmonary toileting Continue DuoNeb nebulizer treatments [id number] Pain control and muscle relaxants IV fluids to KVO Dilaudid for pain control in combination with [place] as needed Flexeril Diazepam as needed Continue IV Solu-Medrol Lantus insulin 50 units daily along with NovoLog 10 units with meals and a sliding Scale coverage Keep Samuels catheter in place Aggressive pulmonary toileting Ultrasound right upper extremity was negative for DVT. The patient is being considered for an LTAC Time with Patient: Greater than 30
--- NOTE | 2025-04-10 14:10 | XR ---
EXAMINATION TYPE: XR cervical spine limited DATE OF EXAM: 04/10/2025 TECHNIQUE: Frontal and lateral views of the cervical spine are obtained. CLINICAL INDICATION: Male, 65 years old with history of follow up post fusion C3-T3, pain COMPARISON: CT March 22, 2025 FINDINGS: Persistent long segment posterior fusion hardware is seen extending from C2 level to the up per thoracic spine. There is persistent metallic disc material at C4-C5 and C6-C7 levels. Persist ant erior fusion plate with ossific fusion at the C5-C6 level . Alignment is stable and straightened. IMPRESSION: As above. [facility], , 04/10/2025 2:08 PM
[2025-04-10 17:20] LABS: Glucose,Whole Blood 256 mg/dL (70-110)
[2025-04-10 19:41] LABS: Glucose,Whole Blood 229 mg/dL (70-110)
[2025-04-10] MEDS: methylPREDNISolone SOD SUCCI 40 MG/ML 1 ML VIAL IV SCH (20:49)
[2025-04-11 06:08] LABS: HCT 34.9 % (39.6-50.0); HGB 11.4 g/dL (13.0-17.0); MCH 29.9 pg (27.0-32.0); MCHC 32.7 g/dL (32.0-37.0); MCV 91.6 fL (80.0-97.0); RBC 3.81 10*6/uL (4.40-5.60); RDW 15.3 % (11.5-14.5); WBC 8.63 10*3/uL (4.50-10.00)
[2025-04-11 06:11] LABS: Glucose,Whole Blood 208 mg/dL (70-110)
[2025-04-11 06:14] LABS: Platelet Count 85 10*3/uL (140-440)
[2025-04-11 06:22] LABS: African American GFR (CKD) >90 (>60 ml/min/1.73 sqM); Anion Gap 3 mmol/L; Blood Urea Nitrogen 16 mg/dL (9-20); Calcium 8.3 mg/dL (8.4-10.2); Carbon Dioxide 30 mmol/L (22-30); Chloride 100 mmol/L (98-107); Glucose 192 mg/dL (74-99); Non-African American GFR(CKD) >90 (>60 ml/min/1.73 sqM); Potassium 4.4 mmol/L (3.5-5.1); Sodium 133 mmol/L (137-145)
--- NOTE | 2025-04-11 06:23 | XR ---
EXAMINATION TYPE: XR chest 1V portable DATE OF EXAM: 04/11/2025 CLINICAL INDICATION: Male, 65 years old with history of follow up bibasilar infiltrates, progress elina dy. TECHNIQUE: Single AP portable upright view of the chest is obtained. COMPARISON: Chest x-ray from one day earlier FINDINGS: Left basilar opacity is redemonstrated. Right lung remains clear. Cardiac silhouette size is stable and within normal limits. Extensive surgical change to the cervical thoracic spine is redem onstrated. Pneumomediastinum superiorly is suspected. IMPRESSION: Persistent left basilar acute infiltrate and/or atelectasis with small left pleural effus ion. Probable superior pneumomediastinum redemonstrated. No significant change from one day earlier. [facility], , 04/11/2025 6:21 AM
[2025-04-11] MEDS ORDERED: Magnesium Replacement Protocol 1 EACH MISC MISCELLANE PRN (06:37)
[2025-04-11] MEDS: MAGNESIUM SULFATE-D5W PMX 1 GM in DEXTROSE/WATER 1 100ML.BAG IVPB ONE (06:54)
--- NOTE | 2025-04-11 09:21 | P.PN ---
Progress Note - Text Progress Note Date: 04/11/25 Orthopedic spine: History of present illness: Patient is a very pleasant 65-year-old male who is seen examined at bedside in the ICU for follow-up evaluation of the cervical spine. He is status post posterior cervical decompression discectomy at C7-T1 with extension of fusion from C7 down to T3. He states he continues to be able to feel his right great toe. He does have some increased sensation over his anterior thighs. He continues to keep his hard cervical collar intact. He has been utilizing this hard cervical collar over the past 3 weeks. It is significantly dirty and has dried bodily fluid on it. We will plan to obtain new aspirin hard cervical collar bracing. He is not experiencing any cervical pain. His jarad were removed previously. He continues with dressing changes as needed. Dressing is changed at the bedside. He has no significant drainage. He has good range of motion of his bilateral upper extremities except for his shoulders bilaterally. He is able to make a fist but is weak with his software business analyst. He is awake and alert. He is able to answer questions appropriately. He continues have significant difficulty with this bilateral lower extremities. He has some improved numbness around his abdomen towards the groin and some increased sensation over his anterior thighs. He admits to continued sensation in his right great toe. He has no motor function in his lower extremities. His lower extremity symptoms have not improved. He currently has compression stockings and boots intact. Nursing states they may plan for voiding trial today. His Samuels catheter has remained intact. He has continued to improve from a pulmonary standpoint. He has been extubated over the past 10 days. He continues to be monitored by pulmonary critical care in the ICU. Patient was transition to O2 nasal cannula yesterday. They may be planning for direct discharge from the ICU to spinal cord injury rehabilitation facility. He continues to be seen exam by multiple medical providers including pulmonology and medicine. Physical Exam Posterior cervical Fusion: Status post surgical day number #17 Patient is awake, alert, and oriented 3; patient is answering questions appropriately Finished Stock Inspector strength, thumb strength, interosseous strength, biceps strength, and triceps strength positive sustained bilaterally He is able to shrug his shoulders. Weakness with software business analyst bilaterally Hard cervical collar intact; padding is dry with saturated fluids and food and is significantly dirty Dressing is changed at the bedside No significant active drainage from the surgical site; minimal drainage with palpation over the surgical site Small opening at the inferior aspect of the surgical incision at the posterior cervicothoracic spine Reporting some sensation with palpation over the anterior thighs bilaterally He states he has sensation with palpation this morning over his right great toe Pneumatic boots intact bilateral lower extremities Compression stockings intact bilaterally Samuels catheter intact Assessment: Spinal cord injury with paralysis at T8 Postoperative day #21: Status post posterior cervical decompression discectomy at C7-T1 with extension of fusion from C7-T3 Bilateral lower extremity paralysis Bilateral lower extremity loss of sensation Acute hypoxic respiratory failure Left-sided atelectasis Obstructive sleep apnea syndrome on CPAP normally Type 2 diabetes Hypotension could be related to sepsis could also be neurogenic post spinal surgery Dyslipidemia Plan: 1. Patient continues to remain in the ICU. He is awake, alert, and oriented and answering questions appropriately. He has been closely manage from pulmonary standpoint. He has been extubated over the past 10 days. He will remain in the ICU until cleared from a pulmonary standpoint. He has been transition to O2 nasal cannula. They may be planning for discharge directly from the ICU to a spinal cord injury rehabilitation facility. 2. Patient must keep his hard cervical collar intact at all times. Patient may continue with dressing changes as needed at the posterior cervical spine. His Brinkley hard cervical collar is significantly dirty overuse over the past 3 weeks and is not hygienically appropriate. We will obtain a new Brinkley hard cervical collar. 3. Patient continues to have flaccid paralysis in his bilateral lower extremities. He has had some increase in sensation around his abdomen towards his groin and admits to some increased sensation over his anterior thighs. He continues to have some sensation in his right great toe. They should continue with position change regularly to help prevent decubitus issues. 4. They may be planning for voiding trial today with removal of Samuels catheter which is okay from an orthopedic spine standpoint. 5. When medically stable clear, patient will be planning to be discharged to a spinal cord facility for rehabilitation. Patient may follow-up with Jesu Villarreal PA-C or Dr. Gideon Noyola at [facility] in 2-3 weeks following discharge. 6. We will continue to follow the patient closely. The patient is seen and examined. His x-ray of his cervical spine follow-up looks to be stable from the hardware from C3-T3. The incision is healing appropriately without any significant drainage or evidence of infection. I agree with the dictation above. He has a severe spinal cord injury with paraplegia. He feels that he is having some increased sensation and they are considering a voiding trial if it is appropriate. He should continue to try to increase his motion with his upper extremities and trunk support with occupational therapy and physical therapy. His respiratory status seems to be stabilizing. He will continue management as per critical care. With he is stable with medicine service then it is okay to move to a rehab facility for long-term spinal cord injury treatment and rehab. He should continue his cervical collar 3 months postop which is approximately 9 more weeks. It is okay to increase his mobilization with his hard collar intact.
--- NOTE | 2025-04-11 10:59 | P.PN ---
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 Wheeler) approximately 2 months ago, migraine headaches, depression. Presented to the emergency department with a chief complaint of sudden onset numbness extending from periumbilical region downwards throughout groin and bilateral lower extremities followed by weakness of bilateral lower extremities. Patient states he was moving some plants at home when he had sudden onset of numbness around his lower abdomen circling around him like a belt that quickly radiated into his groin and into bilateral lower extremities accompanied by weakness of bilateral lower extremities which resulted in his legs giving out from beneath him causing him to fall to the ground. Patient de nied having any dizziness or lightheadedness, headache, neck or back pain, or experiencing any pain in his abdomen, groin, or lower extremities. He denies hitting his head during the fall and denies having any loss of consciousness. But reports due to the sudden onset numbness and weakness he was unable to stand back up and had to have his call EMS for transfer to the hospital. Upon arrival to our facility, patient underwent evaluation in the emergency department. Vital signs upon arrival show blood pressure 165/97, heart rate 88, respiratory rate 18, temp 98.8 F, and SpO2 of 97% on room air. CT lumbar spine CT abdomen and pelvis was also negative for acute intra-abdominal process completed showing no evidence for spinal fracture, no evidence for significant spinal canal stenosis revealing severe right L5-S1 neuroforaminal stenosis and moderate bilateral L4-L5 neuroforaminal stenosis, revealing a right middle lobe pulmonary nodule 8 mm, prostamegaly, colonic diverticulosis, and bilateral adrenal myolipoma's. Labs completed and reviewed. CBC unremarkable. BMP showing hyperglycemia with blood glucose of 146. Liver profile normal findings. Urinalysis positive for glucose and ketones but negative for infection. Patient was admitted under services with consultation to neurology and orthospine surgery. MRI lumbar spine was completed showing no definitive evidence of disc herniation or significant spinal canal stenosis revealing minimal disc degeneration with associated osteoarthritic changes. Patient underwent extensive cervical spinal surgery on the evening of 03/20/2025 through 03/21/2025. 04/02/25: Patient seen and examined at bedside today in the ICU. He was intubated but off sedation and weaning parameters were being obtained. No acute events overnight. He denies any acute complaints today. 04/03/25: Patient evaluated at bedside. He remains in the ICU. He was extubated yesterday. He did well overnight, but today morning his SpO2 dropped to 80s and his BIPAP was put on 100% FiO2 briefly. Currently at 14/8/80%. He is awake and responds with a thumbs up. 04/04/25: Patient seen and examined today at bedside. He remains in the ICU . No acute events overnight. 04/05/25: Patient evaluated at bedside. He continues to be in the ICU and on Airvo. 04/06/25: Patient seen and examined at bedside today. He remains in the ICU and is on Airvo. Patient was on BiPAP overnight with settings of 14/8/80%. 04/07/25: Patient evaluated at bedside in the ICU. He remains on the Airvo, with BIPAP use overnight. Patient will be transferred to a bedside chair later today. 04/08 Patient was seen and examined. Minimal sensation in the RLE. On 60L Airvo. Antibiotics include Fluconazole IV (D9) and Cefzolin IV (D4). He has already completed a course of Meropenem for Serratia PNA. CBC and BMP significant for WBC 11.57, RBC 4.01, Hg 12, Hct 35.8, Plt 84, Na 133, Cr 0.43, glu 128, Ca 8. CXR shows small L pleural effusion with adjacent opacities and chronic left diaphragm elevation, similar to yesterday. 04/09/25: Patient seen and examined at bedside. He remains in the ICU and is on Airvo. Used BIPAP overnight at 14/8/65%. 04/10/25: Patient evaluated at bedside today in the ICU. He is down to 10 L of high flow nasal cannula and used BIPAP overnight at 14/8/65%. He reports increased weakness of his right arm. He reports improvement in his shortness of breath. 04/11/25: Patient seen and examined at bedside today. He remains in the ICU and used BIPAP overnight 14/8/40%. He is currently on 3 L of oxygen via nasal cannula. He reports improvement in his right arm weakness. Review of systems: Pertinent positives and negatives as discussed in HPI, a complete review of systems was performed and all other systems are negative. Vitals: Signs Reviewed Physical examination: General: nontoxic, no distress, appears at stated age, currently on 3L NC Derm: Warm, dry Head: Atraumatic, normocephalic, symmetric Eyes: EOMI, no lid lag, anicteric sclera Mouth: No lip lesion, mucus membranes moist Cardiovascular: S1S2 reg, no murmur Lungs: Bilateral rhonchi, more prominent on the left, no accessory muscle use Abdominal: Soft, nontender to palpation, no appreciable organomegaly Ext: No gross muscle atrophy, no edema, no contractures Neuro: Awake and alert, flaccid paralysis is b/l LE, increased sensation from abdomen down to knees bilaterally and on right great toe Psych: Appropriate affect Data Reviewed Today: Labs: Hemoglobin 11.4, platelet count 85, sodium 133, glucose 208, heparin- induced platelet antibody 0.213 Imaging: Chest Xray today shows persistent left basilar acute infiltrate and/or atelectasis with small left oral effusion, probable superior pneumomediastinum, no significant change from 1 day earlier Cervical spine x-ray shows persistent long segment posterior fusion hardware seen extending from C2 to upper thoracic spine, persistent metallic disc material at C4-C5 and C6-C7 levels, persistent anterior fusion plate with ossif ic fusion at the C5-C6 level, ligamentous stable and straightened Assessment/Plan: Patient is a 64 year old male who presented with sudden onset numbness and weakness in bilateral lower extremities. He underwent extensive cervical decompression with discectomy and fusion. He was then intubated due to acute hypoxemic respiratory failure secondary to severe atelectasis and underlying pneumonia. Extubated on 04/02/25. Patient continues to be in the ICU and is on 3L HFNC with BIPAP use overnight. Plan to discharge to LTAC possibly today. Active: #. Acute hypoxemic respiratory failure secondary to severe atelectasis and mucous plugging status post bronchoscopy x 2 #. Healthcare acquired Pneumonia secondary to Serratia #. Leukocytosis,resolved CT angio of chest shows markedly progressive left lung volume loss with marked atelectasis increasing suspicion for endobronchial obstruction/neoplasm and further evaluation may be indicated. Interval development of mild right lower lobe atelectasis. Bronchial washings culture showed positive for Serratia, nasal swab showed positive for Staph aureus, not MRSA Extubated on 04/02/25 Currently on 3L NC, continue to wean down FiO2 Change Solumedrol to Prednisone 40 mg PO daily Continue DuoNebs 4 times daily and every 2 hours as needed Meropenem and Fluconazole discontinued Continue with Mucomyst, DuoNebs 4 times daily, every 2 hours as needed Encourage incentive spirometry Aggressive pulmonary toileting Monitor CBC Pulm crit is following Discussed with BENEFITS REPRESENTATIVE #. Cervical myelopathy secondary to severe spinal canal stenosis involving C7-T1 #. Status post extensive cervical decompression with discectomy at C7-T1 and fusion with extension of fusion from C3-C7 with new extension down to T3 #. Severe right L5-S1 neuroforaminal stenosis #. Moderate bilateral L4-L5 neuroforaminal stenosis Orthopedic surgery following status post extensive cervical decompression with dissecting at C7-T1 and fusion with extension of fusion from C3-C7 with new extension down to T3 Change Solumedrol to Prednisone 40 mg PO daily Discontinue Cefazolin Continue inpatient rehab Resume lisinopril, hydralazine as needed Continue neurochecks every 4 hours and as needed. Maintain fall precautions Voiding trial today and discontinue Samuels Continue Unna boot bilaterally to prevent foot drop Orthopedic surgery is following, recommend keeping cervical collar intact at all times PT/OT following, when medically stable clear patient will be planning to be discharged to a spinal cord facility for rehabilitation Plan for discharge to LTAC today, social media analyst is following #. Type II [id number] diabetes mellitus Hyperglycemia likely secondary to high-dose steroids being administered at this time. Continue Lantus to 50 units subcu daily as basal insulin Continue sliding scale insulin with ACHS blood glucose monitoring Continue premeal insulin 10 units Monitor for hypoglycemia #. Bilateral lower extremity edema Bilateral lower extremity Doppler ultrasound negative for DVT #. Hyponatremia Na 133, secondary to lasix vs steroid Monitor BMP #. Thrombocytopenia Plt count 85 heparin-induced platelet antibody 0.213 Monitor CBC #. Hypomagnesemia Mg 1.7 Magnesium replacement per protocol Monitor Mg #. Hypokalemia, resolved Chronic: #. Hypertension #. Hyperlipidemia #. Obstructive sleep apnea #. BPH Continue lisinopril 40 mg p.o. daily, atorvastatin 40 mg p.o at bedtime, tamsulosin 0.4 mg p.o. daily, continue CPAP nightly and while napping. F: None E: Replete as required N: Regular diet with Ensure A: Bed bound DVT prophylaxis: Lovenox 40 mg subcu daily Code status: Full code Anticipated discharge place: [facility] Anticipated discharge time: Possibly today Dictation was produced using [employer] dictation software. please excuse any grammatical, word or spelling errors. Urban Hughes MD PGY-1 IM I have seen and evaluated the patient today. Discussed with the resident and agree with the residents finding and plan as documented in the resident's note. Changes highlighted in blue font. Objective - Vital Signs Vital signs: Vital Signs Temp 98.4 F 04/10/25 21:00 Pulse 77 04/11/25 04:00 Resp 17 04/11/25 04:00 BP 95/49 04/11/25 04:00 Pulse Ox 97 04/11/25 04:00 FiO2 60 04/11/25 04:14 Intake & Output 04/10/25 04/10/25 04/11/25 06:59 18:59 06:59 Intake Total 480 1770 670 Output Total 1095 700 980 Balance -615 1070 -310 Weight 110 kg 110.3 kg Intake: IV 330 180 280 ceFAZolin 3 gm In Sodium 200 50 150 Chloride 0.9% 100 ml @ 200 mls/hr IVPB Q8H [facility] Rx#:[id number] kvo 130 130 130 Intake, IV Titration 100 Amount Magnesium Sulfate-D5w Pmx 100 1 gm In Dextrose/Water 1 100ml.bag @ 100 mls/hr IVPB ONCE ONE Rx#: [id number] Oral 150 1490 390 Blood Product 0 Output: Urine 1095 700 980 Other: Voiding Method Indwelling Catheter Indwelling Catheter Indwelling Catheter # Voids 1 1 - Labs CBC & Chem 7: 04/11/25 05:18 04/11/25 05:18 Labs: Abnormal Lab Results - Last 24 Hours (Table) 04/10/25 04/10/25 04/10/25 Range/Units 05:12 11:31 17:19 RBC 3.97 L (4.40-5.60) 10*6/uL Hgb 11.7 L (13.0-17.0) g/dL Hct 35.9 L (39.6-50.0) % Plt Count 90 L (140-440) 10*3/uL Sodium (137-145) mmol/L Creatinine (0.66-1.25) mg/dL Glucose (74-99) mg/dL POC Glucose (mg/dL) 197 H 256 H (70-110) mg/dL Calcium (8.4-10.2) mg/dL 04/10/25 04/11/25 04/11/25 Range/Units 19:39 05:18 05:18 RBC 3.81 L (4.40-5.60) 10*6/uL Hgb 11.4 L (13.0-17.0) g/dL Hct 34.9 L (39.6-50.0) % Plt Count 85 L (140-440) 10*3/uL Sodium 133 L (137-145) mmol/L Creatinine 0.41 L (0.66-1.25) mg/dL Glucose 192 H (74-99) mg/dL POC Glucose (mg/dL) 229 H (70-110) mg/dL Calcium 8.3 L (8.4-10.2) mg/dL 04/11/25 Range/Units 06:10 RBC (4.40-5.60) 10*6/uL Hgb (13.0-17.0) g/dL Hct (39.6-50.0) % Plt Count (140-440) 10*3/uL Sodium (137-145) mmol/L Creatinine (0.66-1.25) mg/dL Glucose (74-99) mg/dL POC Glucose (mg/dL) 208 H (70-110) mg/dL Calcium (8.4-10.2) mg/dL
[2025-04-11 11:20] LABS: Glucose,Whole Blood 169 mg/dL (70-110)
--- NOTE | 2025-04-11 14:58 | P.PN ---
Subjective Progress Note Date: 04/11/25 This is a 64-year-old male patient was undergone a C 7 T1 discectomy, done posteriorly with wide laminectomy and foraminotomy and partial facetectomy. The patient was experiencing cervical myelopathy with severe bilateral lower extremity weakness and T8 paresthesia. The patient has previous history of cervical spine fusion C2-C7. The patient was found to have a large herniated disc C7-T1 with severe spinal cord stenosis and based on that the patient was taken to the operating room and underwent a C7-T1 discectomy on 03/21/2025. The patient has become progressively more hypoxic. The patient developed lower lobe pneumonia left more than right. 04/09/2025 the patient is being seen for a follow-up in the intensive care unit. This morning, the patient is awake and alert. He has gotten progressively more debilitated over the past 10 days. He is managed in the intensive care unit for his acute hypoxic respiratory failure and left lower lobe pneumonia. He has required 2 bronchoscopies and the bronchoscopy is done on 03/26/2025 showed Serratia marcescens and the patient's nasal screen was positive for MSSA. The most recent chest x-ray from this morning shows a persistent consolidation in the left lung base and some atelectatic change in lung base bilaterally. No significant interval change compared to earlier chest x-rays. The patient remains on Airvo and earlier this morning the patient was on 6 L with an FiO2 of 65%. IV fluids are currently at KVO. The patient remains on IV cefazolin. Samuels catheter is in place. He has developed increased edema in his right upper extremity. Hemodynamically stable. The white cell count is at 10.2 with a hemoglobin 12.1 and a platelet count of 85. BUN is 19 with a creatinine of 0.37. Remains on IV Solu-Medrol. Spine surgery is on the case. He continues to have difficulties with lower extremity paralysis. He does have some numbness which is improved around his abdomen towards the groin. He does not have any sensation in his lower extremities except for some increased sensation in his right greater toe and no motor function in his lower extremities bilaterally. He is wearing compression stockings and boots. He does have some weakness also in his upper extremities. The patient is postop day #17. He is awake and alert and communicating. He is off the BiPAP. He remains on NovoLog 10 units 3 times daily with meals. Rest of the medications are essentially unchanged. 05/07/2025, patient is being seen for a follow-up. Oxygenation is stable for now. The patient was taken off the Airvo yesterday and the patient was placed on 10 L of oxygen by nasal cannula. Earlier this morning, the patient showed adequate oxygenation and the patient was further weaned down to 8 L/min nasal cannula. Chest x-ray shows a stable left lower lobe consolidation. The patient remains on the same antibiotics and the patient remains IV cefazolin. Cough remains weak. IV fluids are currently at KVO. No fever or chills. He does juan ve some sensation in lower extremities bilaterally although this is minimal. Motor function is still absent. The white cell count 8.7 with a hemoglobin 11.7 and a platelet count of 90. BUN 17 with a creatinine 0.49 and sodium is 136. No other significant events overnight. Will considering discharging this patient to an LTAC facility. The patient is postop day #18. On 04/11/2025, the patient is being seen for a follow-up. The patient shows ongoing improvement in the oxygenation and the patient is currently on 40 of oxygen by nasal cannula. Overnight, the patient utilizing a BiPAP at a pressure of 14 over 8 cm of water regarding his obstructive sleep apnea. He is doing well. He has some sensation above the thighs. No motor function lower extremities bilaterally. Upper extremities remain weak. Cough remains weak. He is on Lantus insulin 50 units daily and NovoLog 10 units with meals and sliding scale coverage. He remains on prednisone 40 mg p.o. daily. He remains on Lovenox for DVT prophylaxis. Samuels catheter to be discontinued today. He is awake and alert and communicating. The white cell count is 8.6 with a hemoglobin 11.4 and a platelet count of 85. BUN 16 with a creatinine 0.4. Sodium level is 133 and the blood sugar is at 169. Patient is being considered for LTAC. Insurance authorization has not been obtained. He is postop day #19. Objective - Vital Signs Vital signs: Vital Signs Temp 98.0 F 04/11/25 08:00 Pulse 90 04/11/25 09:00 Resp 20 04/11/25 09:00 BP 108/61 04/11/25 09:00 Pulse Ox 91 L 04/11/25 09:00 FiO2 60 04/11/25 04:14 Intake & Output 04/10/25 04/11/25 04/11/25 18:59 06:59 18:59 Intake Total 1770 670 180 Output Total 700 980 320 Balance 1070 -310 -140 Weight 110.3 kg Intake: IV 180 280 30 ceFAZolin 3 gm In Sodium 50 150 Chloride 0.9% 100 ml @ 200 mls/hr IVPB Q8H [facility] Rx#:[id number] kvo 130 130 30 Intake, IV Titration 100 100 Amount Magnesium Sulfate-D5w Pmx 100 1 gm In Dextrose/Water 1 100ml.bag @ 100 mls/hr IVPB ONCE ONE Rx#: [id number] Magnesium Sulfate-D5w Pmx 100 1 gm In Dextrose/Water 1 100ml.bag @ 100 mls/hr IVPB ONCE ONE Rx#: [id number] Oral 1490 390 50 Output: Urine 700 980 320 Other: Voiding Method Indwelling Catheter Indwelling Catheter # Voids 1 1 - Exam General: nontoxic, no distress, appears at stated age, patient is currently on oxygen 4L/min nasal cannula. The patient is wearing a hard neck collar. Derm: warm, dry, intact, dressing noted at the back of neck with no signs of drainage or bleeding. Head: atraumatic, normocephalic, symmetric Eyes: EOMI, anicteric sclera Mouth: no lip lesion, mucus membranes moist Cardiovascular: S1 S2 reg, no murmur, rubs, or gallops Lungs: Diminished breath on the left compared to the right. Nearly absent breath on the left lung base Abdominal: soft, a bowel sounds are present in the patient's abdomen is obvious less tympanic compared to yesterday. Extremities: no gross muscle atrophy, no edema, no contractures, patient is unable to move bilateral lower extremity, increased edema in the right upper extremity. Neuro: Alert, Oriented, CNII-XII grossly intact, gait cannot be assessed as the patient has absent motor function lower extremities bilaterally patient has bilateral foot drop. Reflexes are diminished. No Babinski. No clonus. Psych: well appearing, appropriate affect - Labs CBC & Chem 7: 04/11/25 05:18 04/11/25 05:18 Labs: Abnormal Lab Results - Last 24 Hours (Table) 04/10/25 04/10/25 04/10/25 Range/Units 11:31 17:19 19:39 RBC (4.40-5.60) 10*6/uL Hgb (13.0-17.0) g/dL Hct (39.6-50.0) % Plt Count (140-440) 10*3/uL Sodium (137-145) mmol/L Creatinine (0.66-1.25) mg/dL Glucose (74-99) mg/dL POC Glucose (mg/dL) 197 H 256 H 229 H (70-110) mg/dL Calcium (8.4-10.2) mg/dL 04/11/25 04/11/25 04/11/25 Range/Units 05:18 05:18 06:10 RBC 3.81 L (4.40-5.60) 10*6/uL Hgb 11.4 L (13.0-17.0) g/dL Hct 34.9 L (39.6-50.0) % Plt Count 85 L (140-440) 10*3/uL Sodium 133 L (137-145) mmol/L Creatinine 0.41 L (0.66-1.25) mg/dL Glucose 192 H (74-99) mg/dL POC Glucose (mg/dL) 208 H (70-110) mg/dL Calcium 8.3 L (8.4-10.2) mg/dL Assessment and Plan Plan: Acute hypoxic respiratory failure, multifactorial. The patient has developed postoperative atelectasis of the left lower lobe and the patient has significant elevation in volume loss in the left lung compared to the right.. Previous bronchoscopy and sputum analysis was positive for Serratia marcescens. Nasal culture is positive for MSSA and the patient completed the course of antibiotics. He has a very weak cough and poor ability to perform pulmonary toileting. The patient shows ongoing improvement in oxygenation and patient is currently on 4 L of O2 nasal cannula. Shortness of breath secondary to above, stable for now T8 spinal cord injury. The patient has severe spinal canal stenosis at the level of C7/T1 with motor weakness in the lower extremities in addition to myelopathy. The patient is post C7/T1 discectomy with decompression and fusion and the patient also had extension of a previous C2/7 fusion to T3. Patient is postop day # 19 Abdominal distention/ileus, recovered Obstructive sleep apnea maintain CPAP therapy on outpatient basis Diabetes mellitus type 2, with steroid-induced hyperglycemia Hypotension, rule out septic versus neurogenic hypotension post spine surgery Sinus tachycardia Hyperlipidemia Seroma in the posterior soft tissues along the length of the skin jarad, spinal surgeries following Bilateral lower extremity weakness, ongoing motor weakness in the lower extremities bilaterally with absent motor function at this point with bilateral foot drop. Patient's sensations in the lower limbs have improved, but now patient is completely paraplegic. T8 p spinal cord injury with motor paralysis lower extremities bilaterally with absent sensation. He does have some feelings in his lower abdomen towards the groin. History of prior cervical fusion C3-C7 History of severe L5-S1 neuroforaminal stenosis Plan Keep the patient on high flow oxygen at 4 L and gradual weaning down to maintain saturation above 90% Chest x-ray findings are stable Complete the course of antibiotics Incentive spirometer Aggressive pulmonary toileting Continue DuoNeb nebulizer treatments [id number] Pain control and muscle relaxants IV fluids to KVO Discontinue Samuels catheter Dilaudid for pain control in combination with [place] as needed Flexeril Diazepam as needed Continue IV Solu-Medrol Lantus insulin 50 units daily along with NovoLog 10 units with meals and a sliding Scale coverage Keep Samuels catheter in place Aggressive pulmonary toileting Ultrasound right upper extremity was negative for DVT. The patient is being considered for an LTAC Time with Patient: Greater than 30
[2025-04-11 16:11] LABS: Glucose,Whole Blood 213 mg/dL (70-110)
[2025-04-11 19:43] LABS: Glucose,Whole Blood 228 mg/dL (70-110)
[2025-04-12] MEDS: SODIUM CHLORIDE 0.9% 500 ML 500 ML IV ONE ×2 (03:14→09:42)
[2025-04-12 05:38] LABS: HCT 32.4 % (39.6-50.0); HGB 10.8 g/dL (13.0-17.0); Immature Platelet Fraction 2.9 % (1.1-6.1); MCH 30.3 pg (27.0-32.0); MCHC 33.3 g/dL (32.0-37.0); MCV 90.8 fL (80.0-97.0); RBC 3.57 10*6/uL (4.40-5.60); RDW 15.1 % (11.5-14.5); WBC 8.63 10*3/uL (4.50-10.00)
[2025-04-12 05:42] LABS: Platelet Count 55 10*3/uL (140-440)
[2025-04-12 06:03] LABS: African American GFR (CKD) >90 (>60 ml/min/1.73 sqM); Anion Gap 2 mmol/L; Blood Urea Nitrogen 16 mg/dL (9-20); Calcium 7.7 mg/dL (8.4-10.2); Carbon Dioxide 26 mmol/L (22-30); Chloride 105 mmol/L (98-107); Glucose 101 mg/dL (74-99); Non-African American GFR(CKD) >90 (>60 ml/min/1.73 sqM); Potassium 3.2 mmol/L (3.5-5.1); Sodium 133 mmol/L (137-145)
--- NOTE | 2025-04-12 06:21 | XR ---
EXAMINATION TYPE: XR chest 1V portable DATE OF EXAM: 04/12/2025 CLINICAL INDICATION: Male, 65 years old with history of ICU, post extubation and surg follow-up, prog ress study. TECHNIQUE: Single AP portable semiupright view of the chest is obtained. COMPARISON: Chest x-ray from one day earlier FINDINGS: Low lung volumes redemonstrated. Left basilar opacity is redemonstrated. Right lung remain s clear. Cardiac silhouette size is stable and upper limits of normal. Extensive surgical change to t he cervical thoracic spine is redemonstrated. Cholecystectomy clips are redemonstrated. IMPRESSION: Persistent low lung volumes and left basilar acute infiltrate and/or atelectasis with sma ll left pleural effusion. No significant change from one day earlier. [facility], , 04/12/2025 6:18 AM
[2025-04-12] MEDS ORDERED: Potassium Replacement Protocol 1 EACH MISC MISCELLANE PRN (06:23)
[2025-04-12] MEDS: MAGNESIUM SULFATE-D5W PMX 1 GM in DEXTROSE/WATER 1 100ML.BAG IVPB SCH (06:35)
[2025-04-12] MEDS: POTASSIUM CHLORIDE ER 20 MEQ TAB.ER PO SCH ×2 (06:36→11:53)
[2025-04-12 06:46] LABS: Glucose,Whole Blood 85 mg/dL (70-110)
[2025-04-12] MEDS: predniSONE 20 MG TAB PO SCH (09:06)
--- NOTE | 2025-04-12 10:45 | P.PN ---
Progress Note - Text Progress Note Date: 04/12/25 Orthopedic spine: History of present illness: Patient is a very pleasant 65-year-old male who is seen examined at bedside in the ICU for follow-up evaluation of the cervical spine. He is status post posterior cervical decompression discectomy at C7-T1 with extension of fusion from C7 down to T3. He states he continues to be able to feel his right great toe. He does have some increased sensation over his anterior thighs greater on the right than the left. He continues to keep his hard cervical collar intact. He has been utilizing this hard cervical collar over the past 3 weeks. It is significantly dirty and has dried bodily fluid on it. A new hard cervical collar was delivered to the bedside yesterday. He is not experiencing any cervical pain. His jarad were removed previously. He continues with dressing changes as needed. He has good range of motion of his bilateral upper extremities except for his shoulders bilaterally. He is able to make a fist but is weak with his certified art therapist. He is awake and alert. He is able to answer questions appropriately. Patient is in a good mood this morning. He is being shaved by nursing. He feels he is getting stronger with his ability to eat for food. He continues have significant difficulty with this bilateral lower extremities. He has some improved numbness around his abdomen towards the groin and some increased sensation over his anterior thighs. He admits to continued sensation in his right great toe. He has no motor function in his lower extremities. His lower extremity symptoms have not improved. He currently has compression stockings and boots intact. He failed a voiding trial yesterday. Samuels catheter has been reinserted. He will be discharged with a catheter intact. He has continued to improve from a pulmonary standpoint. He has been extubated over the past 11 days. He continues to be monitored by pulmonary critical care in the ICU. They may be planning for direct discharge from the ICU to spinal cord injury rehabilitation facility. Patient did have some hypotension last night and is currently receiving a bolus. They are unsure if this is due to medication change. He continues to be seen exam by multiple medical providers including pulmonology and medicine. Patient is currently waiting for [place] authorization prior to discharge to spinal cord rehabilitation facility. Physical Exam Posterior cervical Fusion: Status post surgical day number #22 Patient is awake, alert, and oriented 3; patient is answering questions appropriately Extruder Tender strength, thumb strength, interosseous strength, biceps strength, and triceps strength positive sustained bilaterally He is able to shrug his shoulders. Weakness with certified art therapist bilaterally Hard cervical collar intact Reporting some sensation with palpation over the anterior thighs bilaterally, ri ght greater than left He states he has sensation with palpation over his right great toe Pneumatic boots intact bilateral lower extremities Compression stockings intact bilaterally Samuels catheter intact Assessment: Spinal cord injury with paralysis at T8 Postoperative day #22: Status post posterior cervical decompression discectomy at C7-T1 with extension of fusion from C7-T3 Bilateral lower extremity paralysis Bilateral lower extremity loss of sensation Acute hypoxic respiratory failure Left-sided atelectasis Obstructive sleep apnea syndrome on CPAP normally Type 2 diabetes Hypotension could be related to sepsis could also be neurogenic post spinal surgery Dyslipidemia Plan: 1. Patient continues to remain in the ICU. He is awake, alert, and oriented and answering questions appropriately. He has been closely manage from pulmonary standpoint. He has been extubated over the past 11 days. He will remain in the ICU until cleared from a pulmonary standpoint. He has been transition to O2 nasal cannula. They may be planning for discharge directly from the ICU to a spinal cord injury rehabilitation facility. [facility] 2. Patient must keep his hard cervical collar intact at all times. Patient may continue with dressing changes as needed at the posterior cervical spine. His [place] hard cervical collar is significantly dirty overuse over the past 3 weeks and is not hygienically appropriate. We will obtain a new [place] hard cervical collar. This was delivered at the bedside yesterday. He will be transition to his new collar at the time of discharge. 3. Patient continues to have flaccid paralysis in his bilateral lower extremities. He has had some increase in sensation around his abdomen towards his groin and admits to some increased sensation over his anterior thighs greater on the right than the left. He continues to have some sensation in his right great toe. They should continue with position change regularly to help prevent decubitus issues. 4. When medically stable clear, patient will be planning to be discharged to a spinal cord facility for rehabilitation. Patient may follow-up with Jesu Villarreal PA-C or Dr. Gideon Noyola at [facility] in 2-3 weeks following discharge. 5. We will continue to follow the patient closely. Pt is seen and examined. on 3L NC and comfortable. receiving bolus fluids today per critical care. Transfer planning in progress if patient remains stable.
[2025-04-12 11:22] LABS: Glucose,Whole Blood 115 mg/dL (70-110)
[2025-04-12] MEDS: SODIUM CHLORIDE 0.9% 1,000 ML IV ONE (12:36)
--- NOTE | 2025-04-12 12:43 | P.PN ---
Subjective Progress Note Date: 04/12/25 Principal diagnosis: Hospital course: Patient is a pleasant 64-year-old male with a past medical history of hypertension, hyperlipidemia, type II xnt-broyjey-veqfjmefw diabetes mellitus, involuntary limb muscle fasciculations/movements on Mirapex and last seen neurologist (Dr. Wheeler) approximately 2 months ago, migraine headaches, depression. Presented to the emergency department with a chief complaint of sudden onset numbness extending from periumbilical region downwards throughout groin and bilateral lower extremities followed by weakness of bilateral lower extremities. Patient states he was moving some plants at home when he had sudden onset of numbness around his lower abdomen circling around him like a belt that quickly radiated into his groin and into bilateral lower extremities accompanied by weakness of bilateral lower extremities which resulted in his legs giving out from beneath him causing him to fall to the ground. Patient de nied having any dizziness or lightheadedness, headache, neck or back pain, or experiencing any pain in his abdomen, groin, or lower extremities. He denies hitting his head during the fall and denies having any loss of consciousness. But reports due to the sudden onset numbness and weakness he was unable to stand back up and had to have his call EMS for transfer to the hospital. Upon arrival to our facility, patient underwent evaluation in the emergency department. Vital signs upon arrival show blood pressure 165/97, heart rate 88, respiratory rate 18, temp 98.8 F, and SpO2 of 97% on room air. CT lumbar spine CT abdomen and pelvis was also negative for acute intra-abdominal process completed showing no evidence for spinal fracture, no evidence for significant spinal canal stenosis revealing severe right L5-S1 neuroforaminal stenosis and moderate bilateral L4-L5 neuroforaminal stenosis, revealing a right middle lobe pulmonary nodule 8 mm, prostamegaly, colonic diverticulosis, and bilateral adrenal myolipoma's. Labs completed and reviewed. CBC unremarkable. BMP showing hyperglycemia with blood glucose of 146. Liver profile normal findings. Urinalysis positive for glucose and ketones but negative for infection. Patient was admitted under services with consultation to neurology and orthospine surgery. MRI lumbar spine was completed showing no definitive evidence of disc herniation or significant spinal canal stenosis revealing minimal disc degeneration with associated osteoarthritic changes. Patient underwent extensive cervical spinal surgery on the evening of 03/20/2025 through 03/21/2025. 04/02/25: Patient seen and examined at bedside today in the ICU. He was intubated but off sedation and weaning parameters were being obtained. No acute events overnight. He denies any acute complaints today. 04/03/25: Patient evaluated at bedside. He remains in the ICU. He was extubated yesterday. He did well overnight, but today morning his SpO2 dropped to 80s and his BIPAP was put on 100% FiO2 briefly. Currently at 14/8/80%. He is awake and responds with a thumbs up. 04/04/25: Patient seen and examined today at bedside. He remains in the ICU . No acute events overnight. 04/05/25: Patient evaluated at bedside. He continues to be in the ICU and on Airvo. 04/06/25: Patient seen and examined at bedside today. He remains in the ICU and is on Airvo. Patient was on BiPAP overnight with settings of 14/8/80%. 04/07/25: Patient evaluated at bedside in the ICU. He remains on the Airvo, with BIPAP use overnight. Patient will be transferred to a bedside chair later today. 04/08 Patient was seen and examined. Minimal sensation in the RLE. On 60L Airvo. Antibiotics include Fluconazole IV (D9) and Cefzolin IV (D4). He has already completed a course of Meropenem for Serratia PNA. CBC and BMP significant for WBC 11.57, RBC 4.01, Hg 12, Hct 35.8, Plt 84, Na 133, Cr 0.43, glu 128, Ca 8. CXR shows small L pleural effusion with adjacent opacities and chronic left diaphragm elevation, similar to yesterday. 04/09/25: Patient seen and examined at bedside. He remains in the ICU and is on Airvo. Used BIPAP overnight at 14/8/65%. 04/10/25: Patient evaluated at bedside today in the ICU. He is down to 10 L of high flow nasal cannula and used BIPAP overnight at 14/8/65%. He reports increased weakness of his right arm. He reports improvement in his shortness of breath. 04/11/25: Patient seen and examined at bedside today. He remains in the ICU and used BIPAP overnight 14/8/40%. He is currently on 3 L of oxygen via nasal cannula. He reports improvement in his right arm weakness. 04/12/25: Patient evaluated at bedside today. He continues to be in the ICU and is on 3L oxygen via NC. Patient failed voiding trial yesterday. Review of systems: Pertinent positives and negatives as discussed in HPI, a complete review of systems was performed and all other systems are negative. Vitals: Signs Reviewed, BP 91/47, SpO2 98% on 3 L NC Physical examination: General: nontoxic, no distress, appears at stated age, currently on 4L NC Derm: Warm, dry Head: Atraumatic, normocephalic, symmetric Eyes: EOMI, no lid lag, anicteric sclera Mouth: No lip lesion, mucus membranes moist Cardiovascular: S1S2 reg, no murmur Lungs: Bilateral rhonchi, more prominent on the left, no accessory muscle use Abdominal: Soft, nontender to palpation, no appreciable organomegaly Ext: No gross muscle atrophy, no edema, no contractures Neuro: Awake and alert, flaccid paralysis is b/l LE, increased sensation from abdomen down to knees bilaterally and on right great toe Psych: Appropriate affect Data Reviewed Today: Labs: Hemoglobin 8.8, platelet count 55, sodium 133, potassium 3.2, calcium 7.7, magnesium 1.5 Imaging: Chest Xray today shows persistent low lung volumes and left basilar acute infiltrate and/atelectasis with small left pleural effusion, no significant change from 1 day earlier Assessment/Plan: Patient is a 64 year old male who presented with sudden onset numbness and weakness in bilateral lower extremities. He underwent extensive cervical decompression with discectomy and fusion. He was then intubated due to acute hypoxemic respiratory failure secondary to severe atelectasis and underlying pneumonia. Extubated on 04/02/25. Patient continues to be in the ICU and is on 3L HFNC with BIPAP use overnight. Plan to discharge to LTAC. Active: #. Hypotension Hold antihypertensives Monitor vital signs #. Acute hypoxemic respiratory failure secondary to severe atelectasis and mucous plugging status post bronchoscopy x 2 #. Healthcare acquired Pneumonia secondary to Serratia #. Leukocytosis,resolved CT angio of chest shows markedly progressive left lung volume loss with marked atelectasis increasing suspicion for endobronchial obstruction/neoplasm and further evaluation may be indicated. Interval development of mild right lower l obe atelectasis. Bronchial washings culture showed positive for Serratia, nasal swab showed positive for Staph aureus, not MRSA Extubated on 04/02/25 Currently on 3L NC, continue to wean down FiO2 Continue Prednisone 40 mg PO daily Continue DuoNebs 4 times daily and every 2 hours as needed Meropenem and Fluconazole discontinued Continue with Mucomyst, DuoNebs 4 times daily, every 2 hours as needed Encourage incentive spirometry Aggressive pulmonary toileting Monitor CBC Pulm crit is following Discussed with GOVERNMENT AUDITOR #. Cervical myelopathy secondary to severe spinal canal stenosis involving C7-T1 #. Status post extensive cervical decompression with discectomy at C7-T1 and fusion with extension of fusion from C3-C7 with new extension down to T3 #. Severe right L5-S1 neuroforaminal stenosis #. Moderate bilateral L4-L5 neuroforaminal stenosis Orthopedic surgery following status post extensive cervical decompression with dissecting at C7-T1 and fusion with extension of fusion from C3-C7 with new extension down to T3 Continue Prednisone 40 mg PO daily Discontinue Cefazolin Continue inpatient rehab Resume lisinopril, hydralazine as needed Continue neurochecks every 4 hours and as needed. Maintain fall precautions Continue Samuels catheter Continue Unna boot bilaterally to prevent foot drop Orthopedic surgery is following, recommend continue cervical collar 3 months postop, 9 more weeks. okay to increase mobilization with hard collar intact., continue to try to increase motion with upper extremities and trunk support with OT and PT PT/OT following, when medically stable clear patient will be planning to be discharged to a spinal cord facility for rehabilitation Plan for discharge to LTAC, public health social worker is following #. Type II qfc-iybrbuh-hzthkoasz diabetes mellitus Hyperglycemia likely secondary to high-dose steroids being administered at this time. Continue Lantus to 50 units subcu daily as basal insulin Continue sliding scale insulin with ACHS blood glucose monitoring Continue premeal insulin 10 units Monitor for hypoglycemia #. Bilateral lower extremity edema Bilateral lower extremity Doppler ultrasound negative for DVT #. Hyponatremia Na 133, secondary to lasix vs steroid Monitor BMP #. Thrombocytopenia Plt count 55k heparin-induced platelet antibody 0.213 Hold Lovenox with plt <50k Monitor CBC #. Hypomagnesemia Mg 1.5 Magnesium replacement per protocol Monitor Mg #. Hypokalemia K 3.2 Potassium replacement per protocol Monitor BMP Chronic: #. Hypertension #. Hyperlipidemia #. Obstructive sleep apnea #. BPH Continue lisinopril 40 mg p.o. daily, atorvastatin 40 mg p.o at bedtime, tamsulosin 0.4 mg p.o. daily, continue CPAP nightly and while napping. F: None E: Replete K and Mg N: Regular diet with Ensure A: Bed bound DVT prophylaxis: Lovenox 40 mg subcu daily Code status: Full code Anticipated discharge place: [facility] Anticipated discharge time: Pending clinical course Dictation was produced using [employer] dictation software. please excuse any grammatical, word or spelling errors. Urban Hughes MD PGY-1 IM I have seen and evaluated the patient today. Discussed with the resident and agree with the residents finding and plan as documented in the resident's note. Changes highlighted in blue font. Objective - Vital Signs Vital signs: Vital Signs Temp 97.7 F 04/12/25 00:00 Pulse 75 04/12/25 06:00 Resp 18 04/12/25 06:00 BP 91/47 04/12/25 06:00 Pulse Ox 98 04/12/25 06:00 FiO2 40 04/12/25 00:04 Intake & Output 04/11/25 04/11/25 04/12/25 06:59 18:59 06:59 Intake Total 007 520 3258 Output Total 980 1480 950 Balance -310 -1210 500 Weight 110.3 kg 110.3 kg 114.2 kg Intake: IV 280 120 170 ceFAZolin 3 gm In Sodium 150 Chloride 0.9% 100 ml @ 200 mls/hr IVPB Q8H [facility] Rx#:[id number] kvo 130 120 170 Intake, IV Titration 100 600 Amount Magnesium Sulfate-D5w Pmx 100 100 1 gm In Dextrose/Water 1 100ml.bag @ 100 mls/hr IVPB ONCE ONE Rx#: [id number] Sodium Chloride 0.9% 500 500 ml 500 ml @ 999 mls/hr IV .Q31M ONE Rx#:[id number] Oral 390 50 680 Output: Urine 980 1480 950 Other: Voiding Method Indwelling Catheter External Catheter Indwelling Catheter # Voids 1 1 - Labs CBC & Chem 7: 04/12/25 05:23 04/12/25 10:27 Labs: Abnormal Lab Results - Last 24 Hours (Table) 04/11/25 04/11/25 04/11/25 Range/Units 11:18 16:09 19:41 RBC (4.40-5.60) 10*6/uL Hgb (13.0-17.0) g/dL Hct (39.6-50.0) % Plt Count (140-440) 10*3/uL Sodium (137-145) mmol/L Potassium (3.5-5.1) mmol/L Creatinine (0.66-1.25) mg/dL Glucose (74-99) mg/dL POC Glucose (mg/dL) 169 H 213 H 228 H (70-110) mg/dL Calcium (8.4-10.2) mg/dL Magnesium (1.6-2.3) mg/dL 04/12/25 04/12/25 04/12/25 Range/Units 05:23 05:23 05:23 RBC 3.57 L (4.40-5.60) 10*6/uL Hgb 10.8 L (13.0-17.0) g/dL Hct 32.4 L (39.6-50.0) % Plt Count 55 L (140-440) 10*3/uL Sodium 133 L (137-145) mmol/L Potassium 3.2 L (3.5-5.1) mmol/L Creatinine 0.39 L (0.66-1.25) mg/dL Glucose 101 H (74-99) mg/dL POC Glucose (mg/dL) (70-110) mg/dL Calcium 7.7 L (8.4-10.2) mg/dL Magnesium 1.5 L (1.6-2.3) mg/dL
--- NOTE | 2025-04-12 12:49 | P.PN ---
Subjective Progress Note Date: 04/12/25 This is a 64-year-old male patient was undergone a C 7 T1 discectomy, done posteriorly with wide laminectomy and foraminotomy and partial facetectomy. The patient was experiencing cervical myelopathy with severe bilateral lower extremity weakness and T8 paresthesia. The patient has previous history of cervical spine fusion C2-C7. The patient was found to have a large herniated disc C7-T1 with severe spinal cord stenosis and based on that the patient was taken to the operating room and underwent a C7-T1 discectomy on 03/21/2025. The patient has become progressively more hypoxic. The patient developed lower lobe pneumonia left more than right. 04/09/2025 the patient is being seen for a follow-up in the intensive care unit. This morning, the patient is awake and alert. He has gotten progressively more debilitated over the past 10 days. He is managed in the intensive care unit for his acute hypoxic respiratory failure and left lower lobe pneumonia. He has required 2 bronchoscopies and the bronchoscopy is done on 03/26/2025 showed Serratia marcescens and the patient's nasal screen was positive for MSSA. The most recent chest x-ray from this morning shows a persistent consolidation in the left lung base and some atelectatic change in lung base bilaterally. No significant interval change compared to earlier chest x-rays. The patient remains on Airvo and earlier this morning the patient was on 6 L with an FiO2 of 65%. IV fluids are currently at KVO. The patient remains on IV cefazolin. Samuels catheter is in place. He has developed increased edema in his right upper extremity. Hemodynamically stable. The white cell count is at 10.2 with a hemoglobin 12.1 and a platelet count of 85. BUN is 19 with a creatinine of 0.37. Remains on IV Solu-Medrol. Spine surgery is on the case. He continues to have difficulties with lower extremity paralysis. He does have some numbness which is improved around his abdomen towards the groin. He does not have any sensation in his lower extremities except for some increased sensation in his right greater toe and no motor function in his lower extremities bilaterally. He is wearing compression stockings and boots. He does have some weakness also in his upper extremities. The patient is postop day #17. He is awake and alert and communicating. He is off the BiPAP. He remains on NovoLog 10 units 3 times daily with meals. Rest of the medications are essentially unchanged. 05/07/2025, patient is being seen for a follow-up. Oxygenation is stable for now. The patient was taken off the Airvo yesterday and the patient was placed on 10 L of oxygen by nasal cannula. Earlier this morning, the patient showed adequate oxygenation and the patient was further weaned down to 8 L/min nasal cannula. Chest x-ray shows a stable left lower lobe consolidation. The patient remains on the same antibiotics and the patient remains IV cefazolin. Cough remains weak. IV fluids are currently at KVO. No fever or chills. He does juan ve some sensation in lower extremities bilaterally although this is minimal. Motor function is still absent. The white cell count 8.7 with a hemoglobin 11.7 and a platelet count of 90. BUN 17 with a creatinine 0.49 and sodium is 136. No other significant events overnight. Will considering discharging this patient to an LTAC facility. The patient is postop day #18. On 04/11/2025, the patient is being seen for a follow-up. The patient shows ongoing improvement in the oxygenation and the patient is currently on 40 of oxygen by nasal cannula. Overnight, the patient utilizing a BiPAP at a pressure of 14 over 8 cm of water regarding his obstructive sleep apnea. He is doing well. He has some sensation above the thighs. No motor function lower extremities bilaterally. Upper extremities remain weak. Cough remains weak. He is on Lantus insulin 50 units daily and NovoLog 10 units with meals and sliding scale coverage. He remains on prednisone 40 mg p.o. daily. He remains on Lovenox for DVT prophylaxis. Samuels catheter to be discontinued today. He is awake and alert and communicating. The white cell count is 8.6 with a hemoglobin 11.4 and a platelet count of 85. BUN 16 with a creatinine 0.4. Sodium level is 133 and the blood sugar is at 169. Patient is being considered for LTAC. Insurance authorization has not been obtained. He is postop day #19. 04/12/2025, the patient is found to be slightly hypotensive. Overnight, the patient was given a bolus of 500 cc. Blood pressure is currently soft with a systolic in the mid 80s. Urine output was also low. The patient will be given another bolus of 1 L and is asked to be placed on hold. He is currently on liters of oxygen by nasal cannula. No respiratory difficulties. Neurologically unchanged. The white cell count is at 8.6 with a hemoglobin 10.8 and a platelet count has dropped further down to 55. K is at 3.9. BUN 16 with a creatinine 0.3. No antibiotics at this point and the patient remains on prednisone 40 mg p.o. daily. The patient is postop day #20. Tolerating diet. No issues with swallowing. Objective - Vital Signs Vital signs: Vital Signs Temp 97.7 F 04/12/25 00:00 Pulse 84 04/12/25 08:32 Resp 21 04/12/25 07:00 BP 91/47 04/12/25 07:00 Pulse Ox 97 04/12/25 08:12 FiO2 40 04/12/25 00:04 Intake & Output 04/11/25 04/12/25 04/12/25 18:59 06:59 18:59 Intake Total 270 1450 Output Total 1480 950 Balance -1210 500 Weight 110.3 kg 114.2 kg Intake: IV 120 170 kvo 120 170 Intake, IV Titration 100 600 Amount Magnesium Sulfate-D5w Pmx 100 100 1 gm In Dextrose/Water 1 100ml.bag @ 100 mls/hr IVPB ONCE ONE Rx#: [id number] Sodium Chloride 0.9% 500 500 ml 500 ml @ 999 mls/hr IV .Q31M ONE Rx#:[id number] Oral 50 680 Output: Urine 1480 950 Other: Voiding Method External Catheter Indwelling Catheter # Voids 1 - Exam General: nontoxic, no distress, appears at stated age, patient is currently on oxygen 4L/min nasal cannula. The patient is wearing a hard neck collar. Derm: warm, dry, intact, dressing noted at the back of neck with no signs of drainage or bleeding. Head: atraumatic, normocephalic, symmetric Eyes: EOMI, anicteric sclera Mouth: no lip lesion, mucus membranes moist Cardiovascular: S1 S2 reg, no murmur, rubs, or gallops Lungs: Diminished breath on the left compared to the right. Nearly absent breath on the left lung base Abdominal: soft, a bowel sounds are present in the patient's abdomen is obvious less tympanic compared to yesterday. Extremities: no gross muscle atrophy, no edema, no contractures, patient is unable to move bilateral lower extremity, increased edema in the right upper extremity. Neuro: Alert, Oriented, CNII-XII grossly intact, gait cannot be assessed as the patient has absent motor function lower extremities bilaterally patient has bilateral foot drop. Reflexes are diminished. No Babinski. No clonus. Psych: well appearing, appropriate affect - Labs CBC & Chem 7: 04/12/25 05:23 04/12/25 10:27 Labs: Abnormal Lab Results - Last 24 Hours (Table) 04/11/25 04/11/25 04/11/25 Range/Units 11:18 16:09 19:41 RBC (4.40-5.60) 10*6/uL Hgb (13.0-17.0) g/dL Hct (39.6-50.0) % Plt Count (140-440) 10*3/uL Sodium (137-145) mmol/L Potassium (3.5-5.1) mmol/L Creatinine (0.66-1.25) mg/dL Glucose (74-99) mg/dL POC Glucose (mg/dL) 169 H 213 H 228 H (70-110) mg/dL Calcium (8.4-10.2) mg/dL Magnesium (1.6-2.3) mg/dL 04/12/25 04/12/25 04/12/25 Range/Units 05:23 05:23 05:23 RBC 3.57 L (4.40-5.60) 10*6/uL Hgb 10.8 L (13.0-17.0) g/dL Hct 32.4 L (39.6-50.0) % Plt Count 55 L (140-440) 10*3/uL Sodium 133 L (137-145) mmol/L Potassium 3.2 L (3.5-5.1) mmol/L Creatinine 0.39 L (0.66-1.25) mg/dL Glucose 101 H (74-99) mg/dL POC Glucose (mg/dL) (70-110) mg/dL Calcium 7.7 L (8.4-10.2) mg/dL Magnesium 1.5 L (1.6-2.3) mg/dL Assessment and Plan Plan: Acute hypoxic respiratory failure, multifactorial. The patient has developed postoperative atelectasis of the left lower lobe and the patient has significant elevation in volume loss in the left lung compared to the right.. Previous bronchoscopy and sputum analysis was positive for Serratia marcescens. Nasal culture is positive for MSSA and the patient completed the course of antibiotics. He has a very weak cough and poor ability to perform pulmonary toileting. The patient shows ongoing improvement in oxygenation and patient is currently on 3 L of oxygen by nasal cannula. Complete his antibiotic course. Shortness of breath secondary to above, stable for now T8 spinal cord injury. The patient has severe spinal canal stenosis at the level of C7/T1 with motor weakness in the lower extremities in addition to myelopathy. The patient is post C7/T1 discectomy with decompression and fusion and the patient also had extension of a previous C2/7 fusion to T3. Patient is postop day # 20 Hypotension, being given IV fluids. No pressors yet. Thrombocytopenia, rule out antibiotic induced. Abdominal distention/ileus, recovered Obstructive sleep apnea maintain CPAP therapy on outpatient basis Diabetes mellitus type 2, with steroid-induced hyperglycemia Hypotension, rule out septic versus neurogenic hypotension post spine surgery Sinus tachycardia Hyperlipidemia Seroma in the posterior soft tissues along the length of the skin jarad, spi nal surgeries following Bilateral lower extremity weakness, ongoing motor weakness in the lower ext remities bilaterally with absent motor function at this point with bilateral foot drop. Patient's sensations in the lower limbs have improved, but now patient is completely paraplegic. T8 p spinal cord injury with motor paralysis lower extremities bilaterally with absent sensation. He does have some feelings in his lower abdomen towards the groin. History of prior cervical fusion C3-C7 History of severe L5-S1 neuroforaminal stenosis Plan Keep the patient on high flow oxygen at 3 L and gradual weaning down to maintain saturation above 90% C gave the patient a bolus of 1 L normal saline and keep his EXTR on hold for now Complete the course of antibiotics Incentive spirometer Aggressive pulmonary toileting Continue DuoNeb nebulizer treatments [id number] Pain control and muscle relaxants IV fluids to KVO Unable to discontinue the Samuels catheter due to urinary retention. The patient is on Flomax. Samuels catheter is in place. Dilaudid for pain control in combination with [place] as needed Flexeril Diazepam as needed Prednisone 40 mg p.o. daily. Lantus insulin 50 units daily along with NovoLog 10 units with meals and a sliding Scale coverage Keep Samuels catheter in place Aggressive pulmonary toileting Ultrasound right upper extremity was negative for DVT. The patient is being considered for an LTAC Time with Patient: Greater than 30
[2025-04-12 15:56] LABS: Glucose,Whole Blood 174 mg/dL (70-110)
--- NOTE | 2025-04-12 16:27 | XR ---
EXAMINATION TYPE: XR chest 1V portable DATE OF EXAM: 04/12/2025 4:03 PM COMPARISON: 04/12/2025 earlier exam CLINICAL INDICATION: Male, 65 years old with history of shortness of breath, TECHNIQUE: XR chest 1V portable view(s) obtained. FINDINGS: The heart size is normal. The pulmonary vasculature is normal. Minimal left pleural effusion present. There is elevation left diaphragm. Post fusion at the cervical thoracic junction is present. IMPRESSION: 1. Small left pleural effusion [facility], , 04/12/2025 4:24 PM
[2025-04-12 20:38] LABS: Glucose,Whole Blood 188 mg/dL (70-110)
[2025-04-13 05:57] LABS: Glucose,Whole Blood 143 mg/dL (70-110)
--- NOTE | 2025-04-13 06:17 | XR ---
EXAMINATION TYPE: XR chest 1V portable DATE OF EXAM: 04/13/2025 CLINICAL INDICATION: Male, 65 years old with history of L pleural effusion, progress study. TECHNIQUE: Single AP portable semiupright view of the chest is obtained. COMPARISON: Chest x-ray from one day earlier COMPARISON: Chest x-ray from one day earlier FINDINGS: Low lung volumes redemonstrated. Left basilar opacity is redemonstrated. Right lung shows patchy basilar opacity. Cardiac silhouette size is stable and mildly enlarged. Extensive surgical anthony nge to the cervical thoracic spine is redemonstrated. IMPRESSION: Persistent low lung volumes and left greater than right basilar acute infiltrate and/or a telectasis with small bilateral pleural effusions. No significant change from one day earlier. [facility], , 04/13/2025 6:14 AM
[2025-04-13 06:48] LABS: HCT 31.9 % (39.6-50.0); HGB 10.4 g/dL (13.0-17.0); MCH 30.1 pg (27.0-32.0); MCHC 32.6 g/dL (32.0-37.0); MCV 92.5 fL (80.0-97.0); RBC 3.45 10*6/uL (4.40-5.60); RDW 15.6 % (11.5-14.5); WBC 9.86 10*3/uL (4.50-10.00)
[2025-04-13 07:03] LABS: African American GFR (CKD) >90 (>60 ml/min/1.73 sqM); Anion Gap 4 mmol/L; Blood Urea Nitrogen 18 mg/dL (9-20); Calcium 8.1 mg/dL (8.4-10.2); Carbon Dioxide 25 mmol/L (22-30); Chloride 103 mmol/L (98-107); Glucose 126 mg/dL (74-99); Magnesium 1.8 mg/dL (1.6-2.3); Non-African American GFR(CKD) >90 (>60 ml/min/1.73 sqM); Potassium 3.9 mmol/L (3.5-5.1); Sodium 132 mmol/L (137-145)
[2025-04-13 07:10] LABS: Platelet Count 55 10*3/uL (140-440)
--- NOTE | 2025-04-13 08:31 | P.PN ---
Progress Note - Text Progress Note Date: 04/13/25 Orthopedic spine: History of present illness: Patient is a very pleasant 65-year-old male who is seen examined at bedside in the ICU for follow-up evaluation of the cervical spine. He is status post posterior cervical decompression discectomy at C7-T1 with extension of fusion from C7 down to T3. He states he continues to be able to feel his right great toe. He does have some increased sensation over his anterior thighs greater on the right than the left. He continues to keep his hard cervical collar intact. He has been utilizing this hard cervical collar over the past 3 weeks. A new hard cervical collar was delivered to the bedside Wednesday. He is not experiencing any cervical pain. His jarad were removed previously. He continues with dressing changes as needed. His dressing was changed this morning. He has good range of motion of his bilateral upper extremities except for his shoulders bilaterally. He is able to make a fist but is weak with his health and human performance professor. He is awake and alert. He is able to answer questions appropriately. Patient is in a good mood this morning. He was able to be shaved yesterday. He feels he is getting stronger with his ability to eat for food. He continues have significant difficulty with this bilateral lower extremities. He has some improved numbness around his abdomen towards the groin and some increased sensation over his anterior thighs. He admits to continued sensation in his right great toe. He has no motor function in his lower extremities. His lower extremity symptoms have not improved. He currently has compression stockings and boots intact. Samuels catheter has been reinserted after failing a voiding trial. He will be discharged with a catheter intact. He has continued to improve from a pulmonary standpoint. He has been extubated over the past 12 days. He continues to be monitored by pulmonary critical care in the ICU. They may be planning for direct discharge from the ICU to spinal cord injury rehabilitation facility. They are currently waiting for authorization through the [place] for approval for discharge to spinal cord rehabilitation facility. He continues to be seen exam by multiple medical providers including pulmonology and medicine. Physical Exam Posterior cervical Fusion: Status post surgical day number #23 Patient is awake, alert, and oriented 3; patient is answering questions appropriately Sales And Service Officer strength, thumb strength, interosseous strength, biceps strength, and triceps strength positive sustained bilaterally He is able to shrug his shoulders. Weakness with health and human performance professor bilaterally Hard cervical collar intact Reporting some sensation with palpation over the anterior thighs bilaterally, right greater than left He states he has sensation with palpation over his right great toe Pneumatic boots intact bilateral lower extremities Compression stockings intact bilaterally Samuels catheter intact Assessment: Spinal cord injury with paralysis at T8 Postoperative day #23: Status post posterior cervical decompression discectomy at C7-T1 with extension of fusion from C7-T3 Bilateral lower extremity paralysis Bilateral lower extremity loss of sensation Acute hypoxic respiratory failure Left-sided atelectasis Obstructive sleep apnea syndrome on CPAP normally Type 2 diabetes Hypotension could be related to sepsis could also be neurogenic post spinal surgery Dyslipidemia Plan: We will continue with our plan as set forth previously.. 1. Patient continues to remain in the ICU. He is awake, alert, and oriented and answering questions appropriately. He has been closely manage from p ulmonary standpoint. He has been extubated over the past 12 days. He will remain in the ICU until cleared from a pulmonary standpoint. He has been transition to O2 nasal cannula. They may be planning for discharge directly from the ICU to a spinal cord injury rehabilitation facility. Currently [facility]. 2. Patient must keep his hard cervical collar intact at all times. Patient may continue with dressing changes as needed at the posterior cervical spine. He will be transition to a new [place]o hard cervical collar at the time of discharge. 3. Patient continues to have flaccid paralysis in his bilateral lower extremities. He has had some increase in sensation around his abdomen towards his groin and admits to some increased sensation over his anterior thighs greater on the right than the left. He continues to have some sensation in his right great toe. They should continue with position change regularly to help prevent decubitus issues. It was discussed with nursing today to try to have him transferred to a chair today. 4. When medically stable clear, patient will be planning to be discharged to a spinal cord facility for rehabilitation. Patient may follow-up with Jesu Villarreal PA-C or Dr. Gideon Noyola at [facility] in 2-3 weeks following discharge.
[2025-04-13 11:27] LABS: Glucose,Whole Blood 145 mg/dL (70-110)
--- NOTE | 2025-04-13 12:33 | P.PN ---
Subjective Progress Note Date: 04/13/25 Subjective: Patient seen and examined at bedside. No acute events overnight. He claims that he is feeling better today. Did wear his BiPAP overnight. Pertinent positives and negatives as discussed above, a complete review of systems was performed and all other systems are negative. Vitals Signs Reviewed. General: Nontoxic, no distress, appears at stated age Derm: Warm, dry Head: Atraumatic, normocephalic, symmetric Eyes: EOMI, no lid lag, anicteric sclera Mouth: No lip lesion, mucus membranes moist Cardiovascular: S1S2 reg, no murmur Lungs: Reduced breath sounds on the left lower lobe, no accessory muscle use, supplemental oxygen Abdominal: Soft, nontender to palpation, no guarding, no appreciable organomegaly Ext: No gross muscle atrophy, no edema, no contractures Neuro: Flaccid paralysis in bilateral lower extremity, reduced sensation below abdomen Psych: Alert, oriented, appropriate affect Data Reviewed Today: Pertinent Labs: WBC 9.6, hemoglobin 10.4, platelet 255, sodium 132, creatinine 0.28, magnesium 1.8, blood sugars range between 126-188 Imaging: Chest x-ray independently interpreted, shows small bilateral pleural effusions, similar to yesterday Assessment and Plan: #. Acute hypoxemic respiratory failure secondary to severe atelectasis and mucous plugging status post bronchoscopy x 2 #. Healthcare acquired Pneumonia secondary to Serratia and Milagros #. Leukocytosis,resolved Extubated on 04/02/25 Continue to wean oxygen Continue with steroid taper, prednisone 40 daily Continue DuoNebs 4 times daily and every 2 hours as needed Meropenem and Fluconazole discontinued Continue with Mucomyst, DuoNebs 4 times daily, every 2 hours as needed Encourage incentive spirometry Aggressive pulmonary toileting Monitor CBC ICU following #. Cervical myelopathy secondary to severe spinal canal stenosis involving C7-T1 #. Status post extensive cervical decompression with discectomy at C7-T1 and fusion with extension of fusion from C3-C7 with new extension down to T3 #. Severe right L5-S1 neuroforaminal stenosis #. Moderate bilateral L4-L5 neuroforaminal stenosis Orthopedic surgery following status post extensive cervical decompression with dissecting at C7-T1 and fusion with extension of fusion from C3-C7 with new extension down to T3 Continue Prednisone 40 mg PO daily, will taper Completed course of IV cefazolin Continue neurochecks every 4 hours and as needed. Maintain fall precautions Continue Samuels catheter, patient is retaining Continue Unna boot bilaterally to prevent foot drop PT/OT Social work following with regards to disposition #. Type II [id number] diabetes mellitus Hyperglycemia likely secondary to high-dose steroids being administered at this time. Improving. Continue Lantus to 50 units subcu daily as basal insulin Continue sliding scale insulin with ACHS blood glucose monitoring Continue premeal insulin 10 units Monitor for hypoglycemia #. Bilateral lower extremity edema Bilateral lower extremity Doppler ultrasound negative for DVT #. Hyponatremia Stable, likely in the setting of steroid use Monitor BMP #. Thrombocytopenia Plt count 55k heparin-induced platelet antibody 0.213 Hold Lovenox with plt <50k Monitor CBC #. Hypomagnesemia, resolved #. Hypokalemia, resolved Hypotension, resolved - Continue to hold antihypertensives Chronic: #. Hypertension #. Hyperlipidemia #. Obstructive sleep apnea #. BPH Continue atorvastatin 40 mg p.o at bedtime, tamsulosin 0.4 mg p.o. daily, continue CPAP nightly and while napping. DVT ppx: Lovenox Code status: Full code Anticipated discharge place: Pending clinical course Anticipated discharge time: Pending clinical course Objective - Vital Signs Vital signs: Vital Signs Temp 98.2 F 04/13/25 08:00 Pulse 86 04/13/25 09:00 Resp 15 04/13/25 09:00 BP 95/55 04/13/25 09:00 Pulse Ox 96 04/13/25 09:00 FiO2 40 04/13/25 04:11 Intake & Output 04/12/25 04/13/25 04/13/25 18:59 06:59 18:59 Intake Total 1790 120 20 Output Total 620 1260 120 Balance 1170 -1140 -100 Weight 114.4 kg Intake: IV 190 120 20 kvo 190 120 20 Intake, IV Titration 1600 Amount IV Fluid Continuation 1, 1000 000 ml @ 0 mls/hr IV .STK -MED ONE Rx#:[id number] Magnesium Sulfate-D5w Pmx 100 1 gm In Dextrose/Water 1 100ml.bag @ 100 mls/hr IVPB Q1H [facility] Rx#: [id number] Sodium Chloride 0.9% 500 500 ml 500 ml @ 999 mls/hr IV .Q31M ONE Rx#:[id number] Output: Urine 620 1260 120 Other: Voiding Method Indwelling Catheter Indwelling Catheter Indwelling Catheter - Labs CBC & Chem 7: 04/13/25 06:19 04/13/25 06:19 Labs: Abnormal Lab Results - Last 24 Hours (Table) 04/12/25 04/12/25 04/13/25 Range/Units 15:54 20:36 05:56 RBC (4.40-5.60) 10*6/uL Hgb (13.0-17.0) g/dL Hct (39.6-50.0) % Plt Count (140-440) 10*3/uL Sodium (137-145) mmol/L Creatinine (0.66-1.25) mg/dL Glucose (74-99) mg/dL POC Glucose (mg/dL) 174 H 188 H 143 H (70-110) mg/dL Calcium (8.4-10.2) mg/dL 04/13/25 04/13/25 04/13/25 Range/Units 06:19 06:19 11:26 RBC 3.45 L (4.40-5.60) 10*6/uL Hgb 10.4 L (13.0-17.0) g/dL Hct 31.9 L (39.6-50.0) % Plt Count 55 L (140-440) 10*3/uL Sodium 132 L (137-145) mmol/L Creatinine 0.28 L (0.66-1.25) mg/dL Glucose 126 H (74-99) mg/dL POC Glucose (mg/dL) 145 H (70-110) mg/dL Calcium 8.1 L (8.4-10.2) mg/dL Microbiology - Last 24 Hours (Table) 03/26/25 15:53 Acid Fast Bacilli Smear - Preliminary Bronchoalviolar Lavage - Left Acid Fast Bacilli Culture - Preliminary
--- NOTE | 2025-04-13 15:12 | P.PN ---
Subjective Progress Note Date: 04/13/25 This is a 64-year-old male patient was undergone a C 7 T1 discectomy, done posteriorly with wide laminectomy and foraminotomy and partial facetectomy. The patient was experiencing cervical myelopathy with severe bilateral lower extremity weakness and T8 paresthesia. The patient has previous history of cervical spine fusion C2-C7. The patient was found to have a large herniated disc C7-T1 with severe spinal cord stenosis and based on that the patient was taken to the operating room and underwent a C7-T1 discectomy on 03/21/2025. The patient has become progressively more hypoxic. The patient developed lower lobe pneumonia left more than right. 04/09/2025 the patient is being seen for a follow-up in the intensive care unit. This morning, the patient is awake and alert. He has gotten progressively more debilitated over the past 10 days. He is managed in the intensive care unit for his acute hypoxic respiratory failure and left lower lobe pneumonia. He has required 2 bronchoscopies and the bronchoscopy is done on 03/26/2025 showed Serratia marcescens and the patient's nasal screen was positive for MSSA. The most recent chest x-ray from this morning shows a persistent consolidation in the left lung base and some atelectatic change in lung base bilaterally. No significant interval change compared to earlier chest x-rays. The patient remains on Airvo and earlier this morning the patient was on 6 L with an FiO2 of 65%. IV fluids are currently at KVO. The patient remains on IV cefazolin. Samuels catheter is in place. He has developed increased edema in his right upper extremity. Hemodynamically stable. The white cell count is at 10.2 with a hemoglobin 12.1 and a platelet count of 85. BUN is 19 with a creatinine of 0.37. Remains on IV Solu-Medrol. Spine surgery is on the case. He continues to have difficulties with lower extremity paralysis. He does have some numbness which is improved around his abdomen towards the groin. He does not have any sensation in his lower extremities except for some increased sensation in his right greater toe and no motor function in his lower extremities bilaterally. He is wearing compression stockings and boots. He does have some weakness also in his upper extremities. The patient is postop day #17. He is awake and alert and communicating. He is off the BiPAP. He remains on NovoLog 10 units 3 times daily with meals. Rest of the medications are essentially unchanged. 05/07/2025, patient is being seen for a follow-up. Oxygenation is stable for now. The patient was taken off the Airvo yesterday and the patient was placed on 10 L of oxygen by nasal cannula. Earlier this morning, the patient showed adequate oxygenation and the patient was further weaned down to 8 L/min nasal cannula. Chest x-ray shows a stable left lower lobe consolidation. The patient remains on the same antibiotics and the patient remains IV cefazolin. Cough remains weak. IV fluids are currently at KVO. No fever or chills. He does juan ve some sensation in lower extremities bilaterally although this is minimal. Motor function is still absent. The white cell count 8.7 with a hemoglobin 11.7 and a platelet count of 90. BUN 17 with a creatinine 0.49 and sodium is 136. No other significant events overnight. Will considering discharging this patient to an LTAC facility. The patient is postop day #18. On 04/11/2025, the patient is being seen for a follow-up. The patient shows ongoing improvement in the oxygenation and the patient is currently on 40 of oxygen by nasal cannula. Overnight, the patient utilizing a BiPAP at a pressure of 14 over 8 cm of water regarding his obstructive sleep apnea. He is doing well. He has some sensation above the thighs. No motor function lower extremities bilaterally. Upper extremities remain weak. Cough remains weak. He is on Lantus insulin 50 units daily and NovoLog 10 units with meals and sliding scale coverage. He remains on prednisone 40 mg p.o. daily. He remains on Lovenox for DVT prophylaxis. Samuels catheter to be discontinued today. He is awake and alert and communicating. The white cell count is 8.6 with a hemoglobin 11.4 and a platelet count of 85. BUN 16 with a creatinine 0.4. Sodium level is 133 and the blood sugar is at 169. Patient is being considered for LTAC. Insurance authorization has not been obtained. He is postop day #19. 04/12/2025, the patient is found to be slightly hypotensive. Overnight, the patient was given a bolus of 500 cc. Blood pressure is currently soft with a systolic in the mid 80s. Urine output was also low. The patient will be given another bolus of 1 L and is asked to be placed on hold. He is currently on liters of oxygen by nasal cannula. No respiratory difficulties. Neurologically unchanged. The white cell count is at 8.6 with a hemoglobin 10.8 and a platelet count has dropped further down to 55. K is at 3.9. BUN 16 with a creatinine 0.3. No antibiotics at this point and the patient remains on prednisone 40 mg p.o. daily. The patient is postop day #20. Tolerating diet. No issues with swallowing. 04/13/2025, the patient is being seen for a follow-up. The patient is calm and comfortable. Blood pressure remains soft yet stable. The patient was taken off the lisinopril. Fluid balance is +30 cc over the past 24 and the patient remains on 3 L of oxygen by nasal cannula. Afebrile. Awake and alert and communicating. Repeat chest x-ray was done this morning and it shows no lung volumes left greater than right base with small bilateral pleural effusion. No significant changes otherwise compared to yesterday. Tolerating diet. Motor function is unchanged lower extremity and the patient has no motor function in his legs bilaterally. Sensation is slightly present above the knees in the th ighs bilaterally. Motor function upper extremities 4 out of 5. The white Of 9.8 with a Heme of 10.4 and the Platelet Count of 55. BUN Is 18 with a Creatinine of 0.28 and a Sodium of 132. Glucose at 149. Patient Remains on Lovenox 40 Mg Subcu for DVT Prophylaxis. Remains on Lantus 50 Units Daily and NovoLog Sliding Scale Coverage. Rest of the Medications Are Essentially Unchanged. Remains on Prednisone 40 Mg P.O. Daily. No Issues with Pain. Continues to Wear a Hard Neck Collar. The patient is postop day #21. Objective - Vital Signs Vital signs: Vital Signs Temp 98.2 F 04/13/25 08:00 Pulse 86 04/13/25 09:00 Resp 15 04/13/25 09:00 BP 95/55 04/13/25 09:00 Pulse Ox 96 04/13/25 09:00 FiO2 40 04/13/25 04:11 Intake & Output 04/12/25 04/13/25 04/13/25 18:59 06:59 18:59 Intake Total 1790 120 20 Output Total 620 1260 120 Balance 1170 -1140 -100 Weight 114.4 kg Intake: IV 190 120 20 kvo 190 120 20 Intake, IV Titration 1600 Amount IV Fluid Continuation 1, 1000 000 ml @ 0 mls/hr IV .STK -[facility] ONE Rx#:[id number] Magnesium Sulfate-D5w Pmx 100 1 gm In Dextrose/Water 1 100ml.bag @ 100 mls/hr IVPB Q1H [facility] Rx#: [id number] Sodium Chloride 0.9% 500 500 ml 500 ml @ 999 mls/hr IV .Q31M ONE Rx#:[id number] Output: Urine 620 1260 120 Other: Voiding Method Indwelling Catheter Indwelling Catheter Indwelling Catheter - Exam General: nontoxic, no distress, appears at stated age, patient is currently on oxygen 4L/min nasal cannula. The patient is wearing a hard neck collar. Derm: warm, dry, intact, dressing noted at the back of neck with no signs of drainage or bleeding. Head: atraumatic, normocephalic, symmetric Eyes: EOMI, anicteric sclera Mouth: no lip lesion, mucus membranes moist Cardiovascular: S1 S2 reg, no murmur, rubs, or gallops Lungs: Diminished breath on the left compared to the right. Nearly absent breath on the left lung base Abdominal: soft, a bowel sounds are present in the patient's abdomen is obvious less tympanic compared to yesterday. Extremities: no gross muscle atrophy, no edema, no contractures, patient is unable to move bilateral lower extremity, increased edema in the right upper extremity. Neuro: Alert, Oriented, CNII-XII grossly intact, gait cannot be assessed as the patient has absent motor function lower extremities bilaterally patient has bilateral foot drop. Reflexes are diminished. No Babinski. No clonus. Psych: well appearing, appropriate affect - Labs CBC & Chem 7: 04/13/25 06:19 04/13/25 06:19 Labs: Abnormal Lab Results - Last 24 Hours (Table) 04/12/25 04/12/25 04/12/25 Range/Units 11:20 15:54 20:36 RBC (4.40-5.60) 10*6/uL Hgb (13.0-17.0) g/dL Hct (39.6-50.0) % Plt Count (140-440) 10*3/uL Sodium (137-145) mmol/L Creatinine (0.66-1.25) mg/dL Glucose (74-99) mg/dL POC Glucose (mg/dL) 115 H 174 H 188 H (70-110) mg/dL Calcium (8.4-10.2) mg/dL 04/13/25 04/13/25 04/13/25 Range/Units 05:56 06:19 06:19 RBC 3.45 L (4.40-5.60) 10*6/uL Hgb 10.4 L (13.0-17.0) g/dL Hct 31.9 L (39.6-50.0) % Plt Count 55 L (140-440) 10*3/uL Sodium 132 L (137-145) mmol/L Creatinine 0.28 L (0.66-1.25) mg/dL Glucose 126 H (74-99) mg/dL POC Glucose (mg/dL) 143 H (70-110) mg/dL Calcium 8.1 L (8.4-10.2) mg/dL Microbiology - Last 24 Hours (Table) 03/26/25 15:53 Acid Fast Bacilli Smear - Preliminary Bronchoalviolar Lavage - Left Acid Fast Bacilli Culture - Preliminary Assessment and Plan Plan: Acute hypoxic respiratory failure, multifactorial. The patient has developed postoperative atelectasis of the left lower lobe and the patient has significant elevation in volume loss in the left lung compared to the right.. Previous bronchoscopy and sputum analysis was positive for Serratia marcescens. Nasal culture is positive for MSSA and the patient completed the course of antibiot ics. He has a very weak cough and poor ability to perform pulmonary toileting. The patient shows ongoing improvement in oxygenation and patient is currently on 3 L of oxygen by nasal cannula. Complete his antibiotic course. Shortness of breath secondary to above, stable for now T8 spinal cord injury. The patient has severe spinal canal stenosis at the level of C7/T1 with motor weakness in the lower extremities in addition to myelopathy. The patient is post C7/T1 discectomy with decompression and fusion and the patient also had extension of a previous C2/7 fusion to T3. Patient is postop day # 21 Hypotension, being given IV fluids. Blood pressure is stable and the patient is currently on lisinopril Thrombocytopenia, rule out antibiotic induced. Maintained on Lovenox for DVT prophylaxis Abdominal distention/ileus, recovered Obstructive sleep apnea maintain CPAP therapy on outpatient basis Diabetes mellitus type 2, with steroid-induced hyperglycemia Hypotension, rule out septic versus neurogenic hypotension post spine surgery Sinus tachycardia Hyperlipidemia Seroma in the posterior soft tissues along the length of the skin jarad, spinal surgeries following Bilateral lower extremity weakness, ongoing motor weakness in the lower extremities bilaterally with absent motor function at this point with bilateral foot drop. Patient's sensations in the lower limbs have improved, but now patient is completely paraplegic. T8 p spinal cord injury with motor paralysis lower extremities bilaterally with absent sensation. He does have some feelings in his lower abdomen towards the groin. History of prior cervical fusion C3-C7 History of severe L5-S1 neuroforaminal stenosis Plan Keep the patient on high flow oxygen at 3 L and gradual weaning down to maintain saturation above 90% Chest x-ray findings are stable with volume loss and small pleural effusions. Completed the course of antibiotics Incentive spirometer Aggressive pulmonary toileting Continue DuoNeb nebulizer treatments [id number] Pain control and muscle relaxants IV fluids to KVO Unable to discontinue the Samuels catheter due to urinary retention. The patient is on Flomax. Samuels catheter is in place. Dilaudid for pain control in combination with [place] as needed Flexeril Diazepam as needed Prednisone 40 mg p.o. daily. Lantus insulin 50 units daily along with NovoLog 10 units with meals and a sliding Scale coverage Keep Samuels catheter in place Aggressive pulmonary toileting Ultrasound right upper extremity was negative for DVT. The patient is being considered for an LTAC Time with Patient: Greater than 30
[2025-04-13 16:07] LABS: Glucose,Whole Blood 171 mg/dL (70-110)
[2025-04-13 19:51] LABS: Glucose,Whole Blood 185 mg/dL (70-110)
[2025-04-14 06:39] LABS: Glucose,Whole Blood 131 mg/dL (70-110)
--- NOTE | 2025-04-14 07:43 | P.PN ---
Progress Note - Text Progress Note Date: 04/14/25 History of present illness: Patient is a very pleasant 65-year-old male who is seen examined at bedside in the ICU for follow-up evaluation of the cervical spine. He is status post posterior cervical decompression discectomy at C7-T1 with extension of fusion from C7 down to T3. He states he continues to be able to feel his right great toe. He does have some increased sensation over his anterior thighs greater on the right than the left again today. He continues to keep his hard cervical collar intact. He has been utilizing this hard cervical collar over the past 3 weeks. A new hard cervical collar was delivered to the bedside Wednesday. He is not experiencing any cervical pain. His jarad were removed previously. He continues with dressing changes as needed. His dressing was changed this morning. He has good range of motion of his bilateral upper extremities except for his shoulders bilaterally. He is able to make a fist, his motion picture actor felt firm bilaterally. He is awake and alert. He is able to answer questions appropriately. Patient is in a good mood this morning. He was able to be shaved recently. He feels he is getting stronger with his ability to eat for food. He continues have significant difficulty with this bilateral lower extremities. He has some improved numbness around his abdomen towards the groin and some increased sensation over his anterior thighs. He admits to continued sensation in his right great toe. He has no motor function in his lower extremities. His lower extremity symptoms have not improved. He currently has compression stockings and boots intact. Samuels catheter has been reinserted after failing a voiding trial. He will be discharged with a catheter intact. He has continued to improve from a pulmonary standpoint. He has been extubated over the past 12 days. He continues to be monitored by pulmonary critical care in the ICU. They may be planning for direct discharge from the ICU to spinal cord injury rehabilitation facility. They are currently waiting for authorization through the [place] for approval for discharge to spinal cord rehabilitation facility. He continues to be seen exam by multiple medical providers including pulmonology and medicine. Physical Exam Posterior cervical Fusion: Status post surgical day number #24 Patient is awake, alert, and oriented 3; patient is answering questions appropriately Specimen Accessioner strength, thumb strength, interosseous strength, biceps strength, and triceps strength positive sustained bilaterally He is able to shrug his shoulders. Weakness with motion picture actor bilaterally Hard cervical collar intact Reporting some sensation with palpation over the anterior thighs bilaterally, right greater than left He states he has sensation with palpation over his right great toe Pneumatic boots intact bilateral lower extremities Compression stockings intact bilaterally Samuels catheter intact Assessment: Spinal cord injury with paralysis at T8 Postoperative day #24: Status post posterior cervical decompression discectomy at C7-T1 with extension of fusion from C7-T3 Bilateral lower extremity paralysis Bilateral lower extremity loss of sensation Acute hypoxic respiratory failure Left-sided atelectasis Obstructive sleep apnea syndrome on CPAP normally Type 2 diabetes Hypotension could be related to sepsis could also be neurogenic post spinal surgery Dyslipidemia Plan: We will continue with our plan as set forth previously.. 1. Patient continues to remain in the ICU. He is awake, alert, and oriented and answering questions appropriately. He has been closely manage from pulmonary standpoint. He has been extubated over the past 12 days. He will remain in the ICU until cleared from a pulmonary standpoint. He has been transition to O2 nasal cannula. They may be planning for discharge directly from the ICU to a spinal cord injury rehabilitation facility. Currently [facility] for insurance authorization from [facility]. 2. Patient must keep his hard cervical collar intact at all times. Patient may continue with dressing changes as needed at the posterior cervical spine. He will be transition to a new [place] hard cervical collar at the time of discharge. 3. Patient continues to have flaccid paralysis in his bilateral lower extremities. He has had some increase in sensation around his abdomen towards his groin and admits to some increased sensation over his anterior thighs greater on the right than the left. He continues to have some sensation in his right great toe. They should continue with position change regularly to help prevent decubitus issues. It was discussed with nursing today to try to have him transferred to a chair 04/13/2025. 4. When medically stable clear, patient will be planning to be discharged to a spinal cord facility for rehabilitation. Patient may follow-up with Jesu Villarreal PA-C or Dr. Gideon Noyola at [facility] in 2-3 weeks following discharge.
--- NOTE | 2025-04-14 11:12 | P.PN ---
Subjective Progress Note Date: 04/14/25 This is a 64-year-old male patient was undergone a C 7 T1 discectomy, done posteriorly with wide laminectomy and foraminotomy and partial facetectomy. The patient was experiencing cervical myelopathy with severe bilateral lower extremity weakness and T8 paresthesia. The patient has previous history of cervical spine fusion C2-C7. The patient was found to have a large herniated disc C7-T1 with severe spinal cord stenosis and based on that the patient was taken to the operating room and underwent a C7-T1 discectomy on 03/21/2025. The patient has become progressively more hypoxic. The patient developed lower lobe pneumonia left more than right. 04/09/2025 the patient is being seen for a follow-up in the intensive care unit. This morning, the patient is awake and alert. He has gotten progressively more debilitated over the past 10 days. He is managed in the intensive care unit for his acute hypoxic respiratory failure and left lower lobe pneumonia. He has required 2 bronchoscopies and the bronchoscopy is done on 03/26/2025 showed Serratia marcescens and the patient's nasal screen was positive for MSSA. The most recent chest x-ray from this morning shows a persistent consolidation in the left lung base and some atelectatic change in lung base bilaterally. No significant interval change compared to earlier chest x-rays. The patient remains on Airvo and earlier this morning the patient was on 6 L with an FiO2 of 65%. IV fluids are currently at KVO. The patient remains on IV cefazolin. Samuels catheter is in place. He has developed increased edema in his right upper extremity. Hemodynamically stable. The white cell count is at 10.2 with a hemoglobin 12.1 and a platelet count of 85. BUN is 19 with a creatinine of 0.37. Remains on IV Solu-Medrol. Spine surgery is on the case. He continues to have difficulties with lower extremity paralysis. He does have some numbness which is improved around his abdomen towards the groin. He does not have any sensation in his lower extremities except for some increased sensation in his right greater toe and no motor function in his lower extremities bilaterally. He is wearing compression stockings and boots. He does have some weakness also in his upper extremities. The patient is postop day #17. He is awake and alert and communicating. He is off the BiPAP. He remains on NovoLog 10 units 3 times daily with meals. Rest of the medications are essentially unchanged. 05/07/2025, patient is being seen for a follow-up. Oxygenation is stable for now. The patient was taken off the Airvo yesterday and the patient was placed on 10 L of oxygen by nasal cannula. Earlier this morning, the patient showed adequate oxygenation and the patient was further weaned down to 8 L/min nasal cannula. Chest x-ray shows a stable left lower lobe consolidation. The patient remains on the same antibiotics and the patient remains IV cefazolin. Cough remains weak. IV fluids are currently at KVO. No fever or chills. He does juan ve some sensation in lower extremities bilaterally although this is minimal. Motor function is still absent. The white cell count 8.7 with a hemoglobin 11.7 and a platelet count of 90. BUN 17 with a creatinine 0.49 and sodium is 136. No other significant events overnight. Will considering discharging this patient to an LTAC facility. The patient is postop day #18. On 04/11/2025, the patient is being seen for a follow-up. The patient shows ongoing improvement in the oxygenation and the patient is currently on 40 of oxygen by nasal cannula. Overnight, the patient utilizing a BiPAP at a pressure of 14 over 8 cm of water regarding his obstructive sleep apnea. He is doing well. He has some sensation above the thighs. No motor function lower extremities bilaterally. Upper extremities remain weak. Cough remains weak. He is on Lantus insulin 50 units daily and NovoLog 10 units with meals and sliding scale coverage. He remains on prednisone 40 mg p.o. daily. He remains on Lovenox for DVT prophylaxis. Samuels catheter to be discontinued today. He is awake and alert and communicating. The white cell count is 8.6 with a hemoglobin 11.4 and a platelet count of 85. BUN 16 with a creatinine 0.4. Sodium level is 133 and the blood sugar is at 169. Patient is being considered for LTAC. Insurance authorization has not been obtained. He is postop day #19. 04/12/2025, the patient is found to be slightly hypotensive. Overnight, the patient was given a bolus of 500 cc. Blood pressure is currently soft with a systolic in the mid 80s. Urine output was also low. The patient will be given another bolus of 1 L and is asked to be placed on hold. He is currently on liters of oxygen by nasal cannula. No respiratory difficulties. Neurologically unchanged. The white cell count is at 8.6 with a hemoglobin 10.8 and a platelet count has dropped further down to 55. K is at 3.9. BUN 16 with a creatinine 0.3. No antibiotics at this point and the patient remains on prednisone 40 mg p.o. daily. The patient is postop day #20. Tolerating diet. No issues with swallowing. 04/13/2025, the patient is being seen for a follow-up. The patient is calm and comfortable. Blood pressure remains soft yet stable. The patient was taken off the lisinopril. Fluid balance is +30 cc over the past 24 and the patient remains on 3 L of oxygen by nasal cannula. Afebrile. Awake and alert and communicating. Repeat chest x-ray was done this morning and it shows no lung volumes left greater than right base with small bilateral pleural effusion. No significant changes otherwise compared to yesterday. Tolerating diet. Motor function is unchanged lower extremity and the patient has no motor function in his legs bilaterally. Sensation is slightly present above the knees in the th ighs bilaterally. Motor function upper extremities 4 out of 5. The white Of 9.8 with a Heme of 10.4 and the Platelet Count of 55. BUN Is 18 with a Creatinine of 0.28 and a Sodium of 132. Glucose at 149. Patient Remains on Lovenox 40 Mg Subcu for DVT Prophylaxis. Remains on Lantus 50 Units Daily and NovoLog Sliding Scale Coverage. Rest of the Medications Are Essentially Unchanged. Remains on Prednisone 40 Mg P.O. Daily. No Issues with Pain. Continues to Wear a Hard Neck Collar. The patient is postop day #21. On 04/14/2025, the patient is being seen for a follow-up. Condition is stable and he remains on 3 L of oxygen by nasal cannula. Hemodynamically stable. Blood pressure is stable. The patient on Lantus insulin 15 yesterday. The patient on prednisone 40 mg p.o. daily. Blood work from today still pending. No new complaints otherwise for now. Tolerating diet. Having bowel movement. Using incentive spirometer. Was transitioned on the chair. Neurologically unchanged and the patient has no motor function lower extremities bilaterally. He is postop day #22. Objective - Vital Signs Vital signs: Vital Signs Temp 98.4 F 04/14/25 04:00 Pulse 75 04/14/25 07:00 Resp 16 04/14/25 07:00 BP 107/63 04/14/25 07:00 Pulse Ox 91 L 04/14/25 07:00 FiO2 40 04/14/25 03:26 Intake & Output 04/13/25 04/14/25 04/14/25 18:59 06:59 18:59 Intake Total 20 150 Output Total 395 225 Balance -375 -75 Weight 112.2 kg Intake: IV 20 150 kvo 20 150 Output: Urine 395 225 Other: Voiding Method Indwelling Catheter Indwelling Catheter - Exam General: nontoxic, no distress, appears at stated age, patient is currently on oxygen 4L/min nasal cannula. The patient is wearing a hard neck collar. Derm: warm, dry, intact, dressing noted at the back of neck with no signs of drainage or bleeding. Head: atraumatic, normocephalic, symmetric Eyes: EOMI, anicteric sclera Mouth: no lip lesion, mucus membranes moist Cardiovascular: S1 S2 reg, no murmur, rubs, or gallops Lungs: Diminished breath on the left compared to the right. Nearly absent breath on the left lung base Abdominal: soft, a bowel sounds are present in the patient's abdomen is obvious less tympanic compared to yesterday. Extremities: no gross muscle atrophy, no edema, no contractures, patient is unable to move bilateral lower extremity, increased edema in the right upper extremity. Neuro: Alert, Oriented, CNII-XII grossly intact, gait cannot be assessed as the patient has absent motor function lower extremities bilaterally patient has bi lateral foot drop. Reflexes are diminished. No Babinski. No clonus. Psych: well appearing, appropriate affect - Labs CBC & Chem 7: 04/13/25 06:19 04/13/25 06:19 Labs: Abnormal Lab Results - Last 24 Hours (Table) 04/13/25 04/13/25 04/13/25 Range/Units 11:26 16:04 19:49 POC Glucose (mg/dL) 145 H 171 H 185 H (70-110) mg/dL 04/14/25 Range/Units 06:38 POC Glucose (mg/dL) 131 H (70-110) mg/dL Assessment and Plan Plan: Acute hypoxic respiratory failure, multifactorial. The patient has developed postoperative atelectasis of the left lower lobe and the patient has significant elevation in volume loss in the left lung compared to the right.. Previous bronchoscopy and sputum analysis was positive for Serratia marcescens. Nasal culture is positive for MSSA and the patient completed the course of antibiotics. He has a very weak cough and poor ability to perform pulmonary toileting. The patient shows ongoing improvement in oxygenation and patient is currently on 3 L of oxygen by nasal cannula. Complete his antibiotic course. The Mechanism Remains Weak. Respiratory Status Is Stable and the Patient Is Using the Incentive Spirometer. Shortness of breath secondary to above, stable for now T8 spinal cord injury. The patient has severe spinal canal stenosis at the level of C7/T1 with motor weakness in the lower extremities in addition to myelopathy. The patient is post C7/T1 discectomy with decompression and fusion and the patient also had extension of a previous C2/7 fusion to T3. Patient is postop day # 22 Hypotension, being given IV fluids. Blood pressure is stable and the patient is currently on lisinopril, the patient's blood pressure is stable for now. Thrombocytopenia, rule out antibiotic induced. Maintained on Lovenox for DVT prophylaxis Abdominal distention/ileus, recovered Obstructive sleep apnea maintain CPAP therapy on outpatient basis Diabetes mellitus type 2, with steroid-induced hyperglycemia Hypotension, rule out septic versus neurogenic hypotension post spine surgery Sinus tachycardia Hyperlipidemia Seroma in the posterior soft tissues along the length of the skin jarad, spinal surgeries following Bilateral lower extremity weakness, ongoing motor weakness in the lower extremities bilaterally with absent motor function at this point with bilateral foot drop. Patient's sensations in the lower limbs have improved, but now patient is completely paraplegic. T8 p spinal cord injury with motor paralysis lower extremities bilaterally with absent sensation. He does have some feelings in his lower abdomen towards the groin. History of prior cervical fusion C3-C7 History of severe L5-S1 neuroforaminal stenosis Plan Keep the patient on high flow oxygen at 3 L and gradual weaning down to maintain saturation above 90% Completed the course of antibiotics Incentive spirometer Aggressive pulmonary toileting Continue DuoNeb nebulizer treatments [id number] Pain control and muscle relaxants IV fluids to KVO Unable to discontinue the Samuels catheter due to urinary retention. The patient is on Flomax. Samuels catheter is in place. Dilaudid for pain control in combination with [place] as needed Flexeril Diazepam as needed Prednisone 40 mg p.o. daily. Lantus insulin 50 units daily along with NovoLog 10 units with meals and a sliding Scale coverage Keep Samuels catheter in place Aggressive pulmonary toileting Ultrasound right upper extremity was negative for DVT. The patient is being considered for an LTAC The respiratory status is stable. The coffee mechanism remains weak. Using incentive spirometer. Time with Patient: Greater than 30
[2025-04-14 11:13] LABS: Glucose,Whole Blood 146 mg/dL (70-110)
[2025-04-14] MEDS ORDERED: DEXMEDETOMIDINE/0.9% NACL(PMX) 400 MCG in EMPTY BAG 1 BAG IV SCH (12:15)
--- NOTE | 2025-04-14 12:18 | P.PN ---
Subjective Progress Note Date: 04/14/25 Subjective: Patient seen and examined at bedside. No acute events overnight. He claims that he is feeling better today. Pertinent positives and negatives as discussed above, a complete review of systems was performed and all other systems are negative. Vitals Signs Reviewed. General: Nontoxic, no distress, appears at stated age Derm: Warm, dry Head: Atraumatic, normocephalic, symmetric Eyes: EOMI, no lid lag, anicteric sclera Mouth: No lip lesion, mucus membranes moist Cardiovascular: S1S2 reg, no murmur Lungs: Reduced breath sounds on the left lower lobe, no accessory muscle use, supplemental oxygen Abdominal: Soft, nontender to palpation, no guarding, no appreciable organomeg lawson Ext: No gross muscle atrophy, no edema, no contractures Neuro: Flaccid paralysis in bilateral lower extremity, reduced sensation below abdomen Psych: Alert, oriented, appropriate affect Data Reviewed Today: Pertinent Labs: Blood sugars range between 131-185 Imaging: No new imaging Assessment and Plan: #. Acute hypoxemic respiratory failure secondary to severe atelectasis and mucous plugging status post bronchoscopy x 2 #. Healthcare acquired Pneumonia secondary to Serratia and Milagros #. Leukocytosis,resolved Extubated on 04/02/25 Continue to wean oxygen Continue with steroid taper, prednisone 40 daily Continue DuoNebs 4 times daily and every 2 hours as needed Meropenem and Fluconazole discontinued Continue with Mucomyst, DuoNebs 4 times daily, every 2 hours as needed Encourage incentive spirometry Aggressive pulmonary toileting Monitor CBC ICU following #. Cervical myelopathy secondary to severe spinal canal stenosis involving C7-T1 #. Status post extensive cervical decompression with discectomy at C7-T1 and fusion with extension of fusion from C3-C7 with new extension down to T3 #. Severe right L5-S1 neuroforaminal stenosis #. Moderate bilateral L4-L5 neuroforaminal stenosis Orthopedic surgery following status post extensive cervical decompression with dissecting at C7-T1 and fusion with extension of fusion from C3-C7 with new extension down to T3 Continue Prednisone 40 mg PO daily, will taper Completed course of IV cefazolin Continue neurochecks every 4 hours and as needed. Maintain fall precautions Continue Samuels catheter, patient is retaining Continue Unna boot bilaterally to prevent foot drop PT/OT Social work following with regards to disposition #. Type II [id number] diabetes mellitus Hyperglycemia likely secondary to high-dose steroids being administered at this time. Improving. Continue Lantus to 50 units subcu daily as basal insulin Continue sliding scale insulin with ACHS blood glucose monitoring Continue premeal insulin 10 units Monitor for hypoglycemia #. Bilateral lower extremity edema Bilateral lower extremity Doppler ultrasound negative for DVT #. Hyponatremia Stable, likely in the setting of steroid use Monitor BMP #. Thrombocytopenia Plt count 55k heparin-induced platelet antibody 0.213 Hold Lovenox with plt <50k Monitor CBC #. Hypomagnesemia, resolved #. Hypokalemia, resolved Hypotension, resolved - Continue to hold antihypertensives Chronic: #. Hypertension #. Hyperlipidemia #. Obstructive sleep apnea #. BPH Continue atorvastatin 40 mg p.o at bedtime, tamsulosin 0.4 mg p.o. daily, continue CPAP nightly and while napping. DVT ppx: Lovenox Code status: Full code Anticipated discharge place: Pending clinical course Anticipated discharge time: Pending clinical course Objective - Vital Signs Vital signs: Vital Signs Temp 98.3 F 04/14/25 08:00 Pulse 84 04/14/25 11:42 Resp 17 04/14/25 08:00 BP 112/67 04/14/25 08:00 Pulse Ox 95 04/14/25 08:00 FiO2 40 04/14/25 03:26 Intake & Output 04/13/25 04/14/25 04/14/25 18:59 06:59 18:59 Intake Total 20 150 330 Output Total 395 225 200 Balance -375 -75 130 Weight 112.2 kg Intake: IV 20 150 80 kvo 20 150 80 Oral 250 Output: Urine 395 225 200 Other: Voiding Method Indwelling Catheter Indwelling Catheter - Labs CBC & Chem 7: 04/13/25 06:19 04/13/25 06:19 Labs: Abnormal Lab Results - Last 24 Hours (Table) 04/13/25 04/13/25 04/14/25 Range/Units 16:04 19:49 06:38 POC Glucose (mg/dL) 171 H 185 H 131 H (70-110) mg/dL 04/14/25 Range/Units 11:12 POC Glucose (mg/dL) 146 H (70-110) mg/dL
[2025-04-14 16:15] LABS: Glucose,Whole Blood 201 mg/dL (70-110)
[2025-04-14 19:42] LABS: Glucose,Whole Blood 207 mg/dL (70-110)
[2025-04-15 05:56] LABS: Glucose,Whole Blood 97 mg/dL (70-110)
--- NOTE | 2025-04-15 08:35 | P.PN ---
Progress Note - Text Progress Note Date: 04/15/25 History of present illness: Patient is a very pleasant 65-year-old male who is seen examined at bedside in [address] [place] [address] for follow-up evaluation of the cervical spine. He is status post posterior cervical decompression discectomy at C7-T1 with extension of fusion from C7 down to T3. He states he continues to be able to feel his right great toe. He does have some increased sensation over his anterior thighs greater on the right than the left again today. He continues to keep his hard cervical collar intact. He has been utilizing this hard cervical collar over the past 3 weeks. A new hard cervical collar was delivered to the bedside Wednesday. He is not experiencing any cervical pain. His jarad were removed previously. He continues with dressing changes as needed. His dressing was changed this morning. He has good range of motion of his bilateral upper extremities except for his shoulders bilaterally. He is able to make a fist, his supply person felt moderate bilaterally. He is awake and alert. He is able to answer questions appropriately. Patient is in a good mood this morning. He was able to be shaved recently. He feels he is getting stronger with his ability to eat food. He continues have significant difficulty with this bilateral lower extremities. He has some improved numbness around his abdomen towards the groin and some increased sensation over his anterior thighs. He admits to continued sensation in his right great toe. He has no motor function in his lower extremities. His lower extremity symptoms have not improved. He currently has compression stockings and boots intact. Samuels catheter has been reinserted after failing a voiding trial. He will be discharged with a catheter intact. He has continued to improve from a pulmonary standpoint. He was transferred from ICU to [address] [place] [address] 04/15/25. They are currently waiting for authorization through the [place] for approval for discharge to spinal cord rehabilitation facility. He continues to be seen exam by multiple medical providers including pulmonology and medicine. 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 Weakness with supply person bilaterally Hard cervical collar intact Reporting some sensation with palpation over the anterior thighs bilaterally, right greater than left He states he has sensation with palpation over his right great toe Pneumatic boots intact bilateral lower extremities Compression stockings intact bilaterally Assessment: Spinal cord injury with paralysis at T8 Postoperative day #25: Status post posterior cervical decompression discectomy at C7-T1 with extension of fusion from C7-T3 Bilateral lower extremity paralysis Bilateral lower extremity loss of sensation Acute hypoxic respiratory failure Left-sided atelectasis Obstructive sleep apnea syndrome on CPAP normally Type 2 diabetes Hypotension could be related to sepsis could also be neurogenic post spinal surgery Dyslipidemia Plan: We will continue with our plan as set forth previously.. 1. He was transferred from ICU to [address] [place] [address] 04/15/25. He is awake, alert, and oriented and answering questions appropriately. He has been closely manage from pulmonary standpoint. He has been extubated over the past 12 days. Currently waiting [facility] insurance [facility] the [facility]. 2. Patient must keep his hard cervical collar intact at all times. Patient may continue with dressing changes as needed at the posterior cervical spine. He will be transition to a new Taylor hard cervical collar at the time of discharge. 3. Patient continues to have flaccid paralysis in his bilateral lower extremities. He has had some increase in sensation around his abdomen towards his groin and admits to some increased sensation over his anterior thighs greater on the right than the left. He continues to have some sensation in his right great toe. They should continue with position change regularly to help prevent decubitus issues. It was discussed with nursing to try to have him transferred to a chair 04/13/2025. 4. When medically stable clear, patient will be planning to be discharged to a spinal cord facility for rehabilitation. Patient may follow-up with Jesu Villarreal PA-C or Dr. Gideon Noyola at [facility] in 2-3 weeks following discharge.
[2025-04-15 09:15] LABS: Basophils # (A) 0.01 10*3/uL (0.00-0.10); Basophils % (A) 0.2 %; Eosinophils # (A) 0.05 10*3/uL (0.04-0.35); Eosinophils % (A) 1.0 %; HCT 31.0 % (39.6-50.0); HGB 10.3 g/dL (13.0-17.0); Lymphocytes # (A) 0.62 10*3/uL (0.90-5.00); Lymphocytes % (A) 12.5 %; MCH 30.7 pg (27.0-32.0); MCHC 33.2 g/dL (32.0-37.0); MCV 92.5 fL (80.0-97.0); Monocytes # (A) 0.42 10*3/uL (0.20-1.00); Monocytes % (A) 8.5 %; Neutrophils # (A) 3.82 10*3/uL (1.80-7.70); Neutrophils % (A) 77.0 %; RBC 3.35 10*6/uL (4.40-5.60); RDW 15.2 % (11.5-14.5); WBC 4.96 10*3/uL (4.50-10.00)
[2025-04-15 09:28] LABS: African American GFR (CKD) >90 (>60 ml/min/1.73 sqM); Anion Gap 4 mmol/L; Blood Urea Nitrogen 17 mg/dL (9-20); Calcium 7.9 mg/dL (8.4-10.2); Carbon Dioxide 29 mmol/L (22-30); Chloride 101 mmol/L (98-107); Glucose 101 mg/dL (74-99); Non-African American GFR(CKD) >90 (>60 ml/min/1.73 sqM); Potassium 3.0 mmol/L (3.5-5.1); Sodium 134 mmol/L (137-145)
[2025-04-15 09:29] LABS: Platelet Count 62 10*3/uL (140-440)
--- NOTE | 2025-04-15 11:17 | P.PN ---
Subjective Progress Note Date: 04/15/25 Subjective: Patient seen and examined at bedside. No acute events overnight. He claims that he is feeling better today. Pertinent positives and negatives as discussed above, a complete review of systems was performed and all other systems are negative. Vitals Signs Reviewed. General: Nontoxic, no distress, appears at stated age Derm: Warm, dry Head: Atraumatic, normocephalic, symmetric Eyes: EOMI, no lid lag, anicteric sclera Mouth: No lip lesion, mucus membranes moist Cardiovascular: S1S2 reg, no murmur Lungs: Reduced breath sounds on the left lower lobe, no accessory muscle use, supplemental oxygen Abdominal: Soft, nontender to palpation, no guarding, no appreciable organomeg lawson Ext: No gross muscle atrophy, no edema, no contractures Neuro: Flaccid paralysis in bilateral lower extremity, reduced sensation below abdomen Psych: Alert, oriented, appropriate affect Data Reviewed Today: Pertinent Labs: WBC 4.96, hemoglobin 10.3, platelets 62, potassium 3, creatinine 0.41, blood sugars range between 97-2 07 Imaging: No new imaging Assessment and Plan: #. Acute hypoxemic respiratory failure secondary to severe atelectasis and mucous plugging status post bronchoscopy x 2 #. Healthcare acquired Pneumonia secondary to Serratia and Milagros #. Leukocytosis,resolved Extubated on 04/02/25 Continue to wean oxygen Continue with steroid taper, prednisone 40 daily Continue DuoNebs 4 times daily and every 2 hours as needed Meropenem and Fluconazole discontinued Continue with Mucomyst, DuoNebs 4 times daily, every 2 hours as needed Encourage incentive spirometry Aggressive pulmonary toileting Monitor CBC ICU following #. Cervical myelopathy secondary to severe spinal canal stenosis involving C7-T1 #. Status post extensive cervical decompression with discectomy at C7-T1 and fusion with extension of fusion from C3-C7 with new extension down to T3 #. Severe right L5-S1 neuroforaminal stenosis #. Moderate bilateral L4-L5 neuroforaminal stenosis Orthopedic surgery following status post extensive cervical decompression with dissecting at C7-T1 and fusion with extension of fusion from C3-C7 with new extension down to T3 Continue Prednisone 40 mg PO daily, will taper Completed course of IV cefazolin Continue neurochecks every 4 hours and as needed. Maintain fall precautions Continue Samuels catheter, patient is retaining Continue Unna boot bilaterally to prevent foot drop PT/OT Social work following with regards to disposition #. Type II [id number] diabetes mellitus Hyperglycemia likely secondary to high-dose steroids being administered at this time. Improving. Lantus changed to 40 units subcu daily as basal insulin Continue sliding scale insulin with ACHS blood glucose monitoring Continue premeal insulin 10 units Monitor for hypoglycemia #. Bilateral lower extremity edema Bilateral lower extremity Doppler ultrasound negative for DVT #. Hyponatremia Stable, likely in the setting of steroid use Monitor BMP #. Thrombocytopenia, stable heparin-induced platelet antibody 0.213 Hold Lovenox with plt <50k Monitor CBC #. Hypomagnesemia, resolved #. Hypokalemia - Give 40 mill equivalent x 2 oral potassium Hypotension, resolved - Continue to hold antihypertensives Chronic: #. Hypertension #. Hyperlipidemia #. Obstructive sleep apnea #. BPH Continue atorvastatin 40 mg p.o at bedtime, tamsulosin 0.4 mg p.o. daily, continue CPAP nightly and while napping. DVT ppx: Lovenox Code status: Full code Anticipated discharge place: Pending clinical course Anticipated discharge time: Pending clinical course Objective - Vital Signs Vital signs: Vital Signs Temp 98.1 F 04/15/25 08:00 Pulse 72 04/15/25 08:31 Resp 20 04/15/25 08:00 BP 111/63 04/15/25 08:00 Pulse Ox 87 L 04/15/25 08:00 FiO2 40 04/15/25 03:10 Intake & Output 04/14/25 04/15/25 04/15/25 18:59 06:59 18:59 Intake Total 460 20 0 Output Total 575 500 Balance -115 -480 0 Weight 108 kg Intake: IV 90 20 Invasive Line 8 10 20 kvo 80 Oral 370 0 Output: Urine 575 500 Other: Voiding Method Indwelling Catheter Indwelling Catheter Indwelling Catheter # Bowel Movements 1 - Labs CBC & Chem 7: 04/15/25 08:13 04/15/25 08:13 Labs: Abnormal Lab Results - Last 24 Hours (Table) 04/14/25 04/14/25 04/15/25 Range/Units 16:10 19:42 08:13 RBC 3.35 L (4.40-5.60) 10*6/uL Hgb 10.3 L (13.0-17.0) g/dL Hct 31.0 L (39.6-50.0) % Plt Count 62 L (140-440) 10*3/uL Lymphocytes # 0.62 L (0.90-5.00) 10*3/uL Sodium (137-145) mmol/L Potassium (3.5-5.1) mmol/L Creatinine (0.66-1.25) mg/dL Glucose (74-99) mg/dL POC Glucose (mg/dL) 201 H 207 H (70-110) mg/dL Calcium (8.4-10.2) mg/dL 04/15/25 Range/Units 08:13 RBC (4.40-5.60) 10*6/uL Hgb (13.0-17.0) g/dL Hct (39.6-50.0) % Plt Count (140-440) 10*3/uL Lymphocytes # (0.90-5.00) 10*3/uL Sodium 134 L (137-145) mmol/L Potassium 3.0 L (3.5-5.1) mmol/L Creatinine 0.41 L (0.66-1.25) mg/dL Glucose 101 H (74-99) mg/dL POC Glucose (mg/dL) (70-110) mg/dL Calcium 7.9 L (8.4-10.2) mg/dL
[2025-04-15 11:48] LABS: Glucose,Whole Blood 121 mg/dL (70-110)
[2025-04-15] MEDS ORDERED: POTASSIUM CHLORIDE ER 20 MEQ TAB.ER PO SCH (12:00)
[2025-04-15] MEDS: POTASSIUM BICARBONATE/CIT AC 20 MEQ TABLET.EFF PO ONE ×2 (12:35→15:03)
--- NOTE | 2025-04-15 14:00 | P.PN ---
Subjective Progress Note Date: 04/15/25 This is a 64-year-old male patient was undergone a C 7 T1 discectomy, done posteriorly with wide laminectomy and foraminotomy and partial facetectomy. The patient was experiencing cervical myelopathy with severe bilateral lower extremity weakness and T8 paresthesia. The patient has previous history of cervical spine fusion C2-C7. The patient was found to have a large herniated disc C7-T1 with severe spinal cord stenosis and based on that the patient was taken to the operating room and underwent a C7-T1 discectomy on 03/21/2025. The patient has become progressively more hypoxic. The patient developed lower lobe pneumonia left more than right. 04/09/2025 the patient is being seen for a follow-up in the intensive care unit. This morning, the patient is awake and alert. He has gotten progressively more debilitated over the past 10 days. He is managed in the intensive care unit for his acute hypoxic respiratory failure and left lower lobe pneumonia. He has required 2 bronchoscopies and the bronchoscopy is done on 03/26/2025 showed Serratia marcescens and the patient's nasal screen was positive for MSSA. The most recent chest x-ray from this morning shows a persistent consolidation in the left lung base and some atelectatic change in lung base bilaterally. No significant interval change compared to earlier chest x-rays. The patient remains on Airvo and earlier this morning the patient was on 6 L with an FiO2 of 65%. IV fluids are currently at KVO. The patient remains on IV cefazolin. Samuels catheter is in place. He has developed increased edema in his right upper extremity. Hemodynamically stable. The white cell count is at 10.2 with a hemoglobin 12.1 and a platelet count of 85. BUN is 19 with a creatinine of 0.37. Remains on IV Solu-Medrol. Spine surgery is on the case. He continues to have difficulties with lower extremity paralysis. He does have some numbness which is improved around his abdomen towards the groin. He does not have any sensation in his lower extremities except for some increased sensation in his right greater toe and no motor function in his lower extremities bilaterally. He is wearing compression stockings and boots. He does have some weakness also in his upper extremities. The patient is postop day #17. He is awake and alert and communicating. He is off the BiPAP. He remains on NovoLog 10 units 3 times daily with meals. Rest of the medications are essentially unchanged. 05/07/2025, patient is being seen for a follow-up. Oxygenation is stable for now. The patient was taken off the Airvo yesterday and the patient was placed on 10 L of oxygen by nasal cannula. Earlier this morning, the patient showed adequate oxygenation and the patient was further weaned down to 8 L/min nasal cannula. Chest x-ray shows a stable left lower lobe consolidation. The patient remains on the same antibiotics and the patient remains IV cefazolin. Cough remains weak. IV fluids are currently at KVO. No fever or chills. He does juan ve some sensation in lower extremities bilaterally although this is minimal. Motor function is still absent. The white cell count 8.7 with a hemoglobin 11.7 and a platelet count of 90. BUN 17 with a creatinine 0.49 and sodium is 136. No other significant events overnight. Will considering discharging this patient to an LTAC facility. The patient is postop day #18. On 04/11/2025, the patient is being seen for a follow-up. The patient shows ongoing improvement in the oxygenation and the patient is currently on 40 of oxygen by nasal cannula. Overnight, the patient utilizing a BiPAP at a pressure of 14 over 8 cm of water regarding his obstructive sleep apnea. He is doing well. He has some sensation above the thighs. No motor function lower extremities bilaterally. Upper extremities remain weak. Cough remains weak. He is on Lantus insulin 50 units daily and NovoLog 10 units with meals and sliding scale coverage. He remains on prednisone 40 mg p.o. daily. He remains on Lovenox for DVT prophylaxis. Samuels catheter to be discontinued today. He is awake and alert and communicating. The white cell count is 8.6 with a hemoglobin 11.4 and a platelet count of 85. BUN 16 with a creatinine 0.4. Sodium level is 133 and the blood sugar is at 169. Patient is being considered for LTAC. Insurance authorization has not been obtained. He is postop day #19. 04/12/2025, the patient is found to be slightly hypotensive. Overnight, the patient was given a bolus of 500 cc. Blood pressure is currently soft with a systolic in the mid 80s. Urine output was also low. The patient will be given another bolus of 1 L and is asked to be placed on hold. He is currently on liters of oxygen by nasal cannula. No respiratory difficulties. Neurologically unchanged. The white cell count is at 8.6 with a hemoglobin 10.8 and a platelet count has dropped further down to 55. K is at 3.9. BUN 16 with a creatinine 0.3. No antibiotics at this point and the patient remains on prednisone 40 mg p.o. daily. The patient is postop day #20. Tolerating diet. No issues with swallowing. 04/13/2025, the patient is being seen for a follow-up. The patient is calm and comfortable. Blood pressure remains soft yet stable. The patient was taken off the lisinopril. Fluid balance is +30 cc over the past 24 and the patient remains on 3 L of oxygen by nasal cannula. Afebrile. Awake and alert and communicating. Repeat chest x-ray was done this morning and it shows no lung volumes left greater than right base with small bilateral pleural effusion. No significant changes otherwise compared to yesterday. Tolerating diet. Motor function is unchanged lower extremity and the patient has no motor function in his legs bilaterally. Sensation is slightly present above the knees in the th ighs bilaterally. Motor function upper extremities 4 out of 5. The white Of 9.8 with a Heme of 10.4 and the Platelet Count of 55. BUN Is 18 with a Creatinine of 0.28 and a Sodium of 132. Glucose at 149. Patient Remains on Lovenox 40 Mg Subcu for DVT Prophylaxis. Remains on Lantus 50 Units Daily and NovoLog Sliding Scale Coverage. Rest of the Medications Are Essentially Unchanged. Remains on Prednisone 40 Mg P.O. Daily. No Issues with Pain. Continues to Wear a Hard Neck Collar. The patient is postop day #21. On 04/14/2025, the patient is being seen for a follow-up. Condition is stable and he remains on 3 L of oxygen by nasal cannula. Hemodynamically stable. Blood pressure is stable. The patient on Lantus insulin 15 yesterday. The patient on prednisone 40 mg p.o. daily. Blood work from today still pending. No new complaints otherwise for now. Tolerating diet. Having bowel movement. Using incentive spirometer. Was transitioned on the chair. Neurologically unchanged and the patient has no motor function lower extremities bilaterally. He is postop day #22. On 04/15/2025, the patient is being seen for a follow-up. Sitting up in a chair and the patient is calm and comfortable. No motor function lower extremities bilaterally in the patient's neurologic status essentially unchanged. The patient remains on oxygen and the patient is currently on 4 L of O2 nasal ca nnula with a pulse ox of 91%. Using incentive spirometer. No respiratory distress. Tolerating diet. The white cell count is 4.9 with a hemoglobin 10.3 and a platelet count of 62. BUN 17 with a creatinine of 0.4. Potassium level is at 3.0 that needs to be replaced. Platelet count is improved compared to yesterday. No other new complaints otherwise for now. Objective - Vital Signs Vital signs: Vital Signs Temp 98.1 F 04/15/25 08:00 Pulse 72 04/15/25 08:31 Resp 20 04/15/25 08:00 BP 111/63 04/15/25 08:00 Pulse Ox 87 L 04/15/25 08:00 FiO2 40 04/15/25 03:10 Intake & Output 04/14/25 04/15/25 04/15/25 18:59 06:59 18:59 Intake Total 460 20 0 Output Total 575 500 Balance -115 -480 0 Weight 108 kg Intake: IV 90 20 Invasive Line 8 10 20 kvo 80 Oral 370 0 Output: Urine 575 500 Other: Voiding Method Indwelling Catheter Indwelling Catheter # Bowel Movements 1 - Exam General: nontoxic, no distress, appears at stated age, patient is currently on oxygen 4L/min nasal cannula. The patient is wearing a hard neck collar. Derm: warm, dry, intact, dressing noted at the back of neck with no signs of drainage or bleeding. Head: atraumatic, normocephalic, symmetric Eyes: EOMI, anicteric sclera Mouth: no lip lesion, mucus membranes moist Cardiovascular: S1 S2 reg, no murmur, rubs, or gallops Lungs: Diminished breath on the left compared to the right. Nearly absent breath on the left lung base Abdominal: soft, a bowel sounds are present in the patient's abdomen is obvious less tympanic compared to yesterday. Extremities: no gross muscle atrophy, no edema, no contractures, patient is orsales ble to move bilateral lower extremity, increased edema in the right upper extremity. Neuro: Alert, Oriented, CNII-XII grossly intact, gait cannot be assessed as the patient has absent motor function lower extremities bilaterally patient has bilateral foot drop. Reflexes are diminished. No Babinski. No clonus. Psych: well appearing, appropriate affect - Labs CBC & Chem 7: 04/15/25 08:13 04/15/25 08:13 Labs: Abnormal Lab Results - Last 24 Hours (Table) 04/14/25 04/14/25 04/14/25 Range/Units 11:12 16:10 19:42 RBC (4.40-5.60) 10*6/uL Hgb (13.0-17.0) g/dL Hct (39.6-50.0) % Plt Count (140-440) 10*3/uL Lymphocytes # (0.90-5.00) 10*3/uL Sodium (137-145) mmol/L Potassium (3.5-5.1) mmol/L Creatinine (0.66-1.25) mg/dL Glucose (74-99) mg/dL POC Glucose (mg/dL) 146 H 201 H 207 H (70-110) mg/dL Calcium (8.4-10.2) mg/dL 04/15/25 04/15/25 Range/Units 08:13 08:13 RBC 3.35 L (4.40-5.60) 10*6/uL Hgb 10.3 L (13.0-17.0) g/dL Hct 31.0 L (39.6-50.0) % Plt Count 62 L (140-440) 10*3/uL Lymphocytes # 0.62 L (0.90-5.00) 10*3/uL Sodium 134 L (137-145) mmol/L Potassium 3.0 L (3.5-5.1) mmol/L Creatinine 0.41 L (0.66-1.25) mg/dL Glucose 101 H (74-99) mg/dL POC Glucose (mg/dL) (70-110) mg/dL Calcium 7.9 L (8.4-10.2) mg/dL Assessment and Plan Plan: Acute hypoxic respiratory failure, multifactorial. The patient has developed postoperative atelectasis of the left lower lobe and the patient has significant elevation in volume loss in the left lung compared to the right.. Previous bronchoscopy and sputum analysis was positive for Serratia marcescens. Nasal culture is positive for MSSA and the patient completed the course of a ntibiotics. He has a very weak cough and poor ability to perform pulmonary toileting. The patient shows ongoing improvement in oxygenation and patient is currently on 4 L of oxygen by nasal cannula. Complete his antibiotic course. The Mechanism Remains Weak. Respiratory Status Is Stable and the Patient Is Using the Incentive Spirometer. Shortness of breath secondary to above, stable for now T8 spinal cord injury. The patient has severe spinal canal stenosis at the level of C7/T1 with motor weakness in the lower extremities in addition to myelopathy. The patient is post C7/T1 discectomy with decompression and fusion and the patient also had extension of a previous C2/7 fusion to T3. Patient is postop day # 23 Hypotension, being given IV fluids. Blood pressure is stable and the patient is currently on lisinopril, the patient's blood pressure is stable for now. Thrombocytopenia, rule out antibiotic induced. Maintained on Lovenox for DVT prophylaxis Abdominal distention/ileus, recovered Obstructive sleep apnea maintain CPAP therapy on outpatient basis Diabetes mellitus type 2, with steroid-induced hyperglycemia Hypotension, rule out septic versus neurogenic hypotension post spine surgery Sinus tachycardia Hyperlipidemia Seroma in the posterior soft tissues along the length of the skin jarad, spinal surgeries following Bilateral lower extremity weakness, ongoing motor weakness in the lower extremities bilaterally with absent motor function at this point with bilateral foot drop. Patient's sensations in the lower limbs have improved, but now patient is completely paraplegic. T8 p spinal cord injury with motor paralysis lower extremities bilaterally with absent sensation. He does have some feelings in his lower abdomen towards the groin. History of prior cervical fusion C3-C7 History of severe L5-S1 neuroforaminal stenosis Plan The patient is currently out of the intensive. Currently on telemetry unit. Keep the patient on high flow oxygen at 4 L and gradual weaning down to maintain saturation above 90% Completed the course of antibiotics Incentive spirometer Aggressive pulmonary toileting Continue DuoNeb nebulizer treatments [id number] Pain control and muscle relaxants IV fluids to KVO Unable to discontinue the Samuels catheter due to urinary retention. The patient is on Flomax. Samuels catheter is in place. Dilaudid for pain control in combination with Daniel as needed Flexeril Diazepam as needed Prednisone 40 mg p.o. daily. Lantus insulin 50 units daily along with NovoLog 10 units with meals and a sliding Scale coverage Keep Samuels catheter in place Aggressive pulmonary toileting Ultrasound right upper extremity was negative for DVT. The patient is being considered for an LTAC The respiratory status is stable. The coffee mechanism remains weak. Using incentive spirometer.
[2025-04-15 16:46] LABS: Glucose,Whole Blood 188 mg/dL (70-110)
[2025-04-15 21:14] LABS: Glucose,Whole Blood 200 mg/dL (70-110)
[2025-04-16 07:05] LABS: Glucose,Whole Blood 107 mg/dL (70-110)
[2025-04-16 07:49] LABS: Basophils # (A) 0.00 10*3/uL (0.00-0.10); Basophils % (A) 0.0 %; Eosinophils # (A) 0.05 10*3/uL (0.04-0.35); Eosinophils % (A) 1.3 %; HCT 29.8 % (39.6-50.0); HGB 9.8 g/dL (13.0-17.0); Lymphocytes # (A) 0.53 10*3/uL (0.90-5.00); Lymphocytes % (A) 13.9 %; MCH 30.0 pg (27.0-32.0); MCHC 32.9 g/dL (32.0-37.0); MCV 91.1 fL (80.0-97.0); Monocytes # (A) 0.45 10*3/uL (0.20-1.00); Monocytes % (A) 11.8 %; Neutrophils # (A) 2.76 10*3/uL (1.80-7.70); Neutrophils % (A) 72.5 %; RBC 3.27 10*6/uL (4.40-5.60); RDW 15.0 % (11.5-14.5); WBC 3.81 10*3/uL (4.50-10.00)
[2025-04-16 07:51] LABS: African American GFR (CKD) >90 (>60 ml/min/1.73 sqM); Anion Gap 2 mmol/L; Blood Urea Nitrogen 15 mg/dL (9-20); Calcium 7.9 mg/dL (8.4-10.2); Carbon Dioxide 30 mmol/L (22-30); Chloride 103 mmol/L (98-107); Glucose 111 mg/dL (74-99); Magnesium 1.5 mg/dL (1.6-2.3); Non-African American GFR(CKD) >90 (>60 ml/min/1.73 sqM); Potassium 3.2 mmol/L (3.5-5.1); Sodium 135 mmol/L (137-145)
--- NOTE | 2025-04-16 08:34 | P.PN ---
Progress Note - Text Progress Note Date: 04/16/25 Orthopedic spine: History of present illness: Patient is a very pleasant 65-year-old male who is seen examined at bedside in [facility] for follow-up evaluation of the cervical spine. He is status post posterior cervical decompression discectomy at C7-T1 with extension of fusion from C7 down to T3. He has not had a neurologic exchange engineer the weekend. He states he continues to be able to feel his right great toe. He does have some increased sensation over his anterior thighs greater on the right than the left. He continues to keep his hard cervical collar intact. He has been utilizing this hard cervical collar over the past 3.5 weeks. A new hard cervical collar was delivered to the bedside previously. He is not experiencing any cervical pain. His jarad were removed previously. He continues with dressing changes as needed. His dressing was changed this morning by myself at the bedside. He has good range of motion of his bilateral upper extremities except for his shoulders bilaterally. He is able to make a fist but is weak with his petal cutter. He is awake and alert. He is able to answer questions appropriately. Patient is in a good mood this morning. He continues have significant difficulty with this bilateral lower extremities. He has some improved numbness around his abdomen towards the groin and some increased sensation over his anterior thighs. He admits to continued sensation in his right great toe. He has no motor function in his lower extremities. His lower extremity symptoms have not improved. He currently has compression stockings and boots intact. Samuels catheter has been reinserted after failing a voiding trial. He will be discharged with a catheter intact. He has continued to improve from a pulmonary standpoint. He has been extubated over the past 15 days. He was able to be transferred to [facility]. They are currently waiting for authorization through the MD for approval for discharge to spinal cord rehabilitation facility. He continues to be seen exam by multiple medical providers including pulmonology and medicine. Physical Exam Posterior cervical Fusion: Status post surgical day number #26 Patient is awake, alert, and oriented 3; patient is answering questions appropriately Metal Melter strength, thumb strength, interosseous strength, biceps strength, and triceps strength positive sustained bilaterally He is able to shrug his shoulders. Weakness with petal cutter bilaterally Hard cervical collar intact Reporting some sensation with palpation over the anterior thighs bilaterally, right greater than left He states he has sensation with palpation over his right great toe Pneumatic boots intact bilateral lower extremities Compression stockings intact bilaterally Samuels catheter intact Dressing is removed and change at the bedside No active drainage from the surgical site Some dark blood is able to be expressed with some compression over the inferior portion of the surgical incision site with no pus or purulent discharge; no obvious infection Assessment: Spinal cord injury with paralysis at T8 Postoperative day #26: Status post posterior cervical decompression discectomy at C7-T1 with extension of fusion from C7-T3 Bilateral lower extremity paralysis Bilateral lower extremity loss of sensation Acute hypoxic respiratory failure Left-sided atelectasis Obstructive sleep apnea syndrome on CPAP normally Type 2 diabetes Hypotension could be related to sepsis could also be neurogenic post spinal surgery Dyslipidemia Plan: We will continue with our plan as set forth previously.. 1. Patient has been able to transfer to [facility]. He is awake, alert, and oriented and answering questions appropriately. He has been closely manage from pulmonary standpoint. He has been extubated over the past 15 days. Yodit valladares waiting for insurance authorization from the MD for approval to discharge to spinal cord rehabilitation facility. 2. Patient must keep his hard cervical collar intact at all times. Patient may continue with dressing changes as needed at the posterior cervical spine. He will be transition to a new Ramona hard cervical collar at the time of discharge. 3. Patient continues to have flaccid paralysis in his bilateral lower extremities. He has had some increase in sensation around his abdomen towards his groin and admits to some increased sensation over his anterior thighs greater on the right than the left. He continues to have some sensation in his right great toe. They should continue with position change regularly to help prevent decubitus issues. It was discussed with nursing today to try to have him transferred to a chair today. 4. When medically stable clear, patient will be planning to be discharged to a spinal cord facility for rehabilitation. Patient may follow-up with Jesu Villarreal PA-C or Dr. Gideon Noyola at [facility] in 2-3 weeks following discharge.
[2025-04-16] MEDS: POTASSIUM CHLORIDE ER 20 MEQ TAB.ER PO STA (09:04)
[2025-04-16] MEDS: INSULIN GLARGINE (LANTUS) 100 UNIT/ML SYR SQ SCH (09:06)
[2025-04-16 09:37] LABS: Platelet Count 59 10*3/uL (140-440)
[2025-04-16 11:28] LABS: Glucose,Whole Blood 315 mg/dL (70-110)
[2025-04-16] MEDS: MAGNESIUM SULFATE-D5W PMX 1 GM in DEXTROSE/WATER 1 100ML.BAG IVPB SCH (11:56)
--- NOTE | 2025-04-16 12:12 | P.PN ---
Subjective Progress Note Date: 04/16/25 Subjective: Patient seen and examined at bedside. No acute events overnight. He claims that he is feeling better today. Pertinent positives and negatives as discussed above, a complete review of systems was performed and all other systems are negative. Vitals Signs Reviewed. General: Nontoxic, no distress, appears at stated age Derm: Warm, dry Head: Atraumatic, normocephalic, symmetric Eyes: EOMI, no lid lag, anicteric sclera Mouth: No lip lesion, mucus membranes moist Cardiovascular: S1S2 reg, no murmur Lungs: Reduced breath sounds on the left lower lobe, no accessory muscle use, supplemental oxygen Abdominal: Soft, nontender to palpation, no guarding, no appreciable organomeg lawson Ext: No gross muscle atrophy, no edema, no contractures Neuro: Flaccid paralysis in bilateral lower extremity, reduced sensation below abdomen Psych: Alert, oriented, appropriate affect Data Reviewed Today: Pertinent Labs: WBC 3.81, hemoglobin 9.8, platelet 59, potassium 3.2, magnesium 1.5, creatinine 0.33, blood sugars range between 107-200 Imaging: No new imaging Assessment and Plan: #. Acute hypoxemic respiratory failure secondary to severe atelectasis and mucous plugging status post bronchoscopy x 2 #. Healthcare acquired Pneumonia secondary to Serratia and Milagros #. Leukocytosis,resolved Extubated on 04/02/25 Continue to wean oxygen Continue with steroid taper, will decrease prednisone to 30 mg daily today Continue DuoNebs 4 times daily and every 2 hours as needed Meropenem and Fluconazole discontinued Continue with Mucomyst, DuoNebs 4 times daily, every 2 hours as needed Encourage incentive spirometry Aggressive pulmonary toileting Monitor CBC Pulmonology following #. Cervical myelopathy secondary to severe spinal canal stenosis involving C7-T1 #. Status post extensive cervical decompression with discectomy at C7-T1 and fusion with extension of fusion from C3-C7 with new extension down to T3 #. Severe right L5-S1 neuroforaminal stenosis #. Moderate bilateral L4-L5 neuroforaminal stenosis Orthopedic surgery following status post extensive cervical decompression with dissecting at C7-T1 and fusion with extension of fusion from C3-C7 with new extension down to T3 Continue Prednisone 30 mg PO daily, will taper Completed course of IV cefazolin Continue neurochecks every 4 hours and as needed. Maintain fall precautions Continue Samuels catheter, patient is retaining Continue Unna boot bilaterally to prevent foot drop PT/OT Social work following with regards to disposition #. Type II [id number] diabetes mellitus Hyperglycemia likely secondary to high-dose steroids being administered at this time. Improving. Lantus changed to 40 units subcu daily as basal insulin Continue sliding scale insulin with ACHS blood glucose monitoring Continue premeal insulin 10 units Monitor for hypoglycemia #. Bilateral lower extremity edema Bilateral lower extremity Doppler ultrasound negative for DVT #. Hyponatremia Stable, likely in the setting of steroid use Monitor BMP #. Thrombocytopenia, stable heparin-induced platelet antibody 0.213 Hold Lovenox with plt <50k Monitor CBC #. Hypomagnesemia - 2 g IV magnesium sulfate given today #. Hypokalemia - Give 40 mill equivalent oral potassium given today Hypotension, resolved - Continue to hold antihypertensives Chronic: #. Hypertension #. Hyperlipidemia #. Obstructive sleep apnea #. BPH Continue atorvastatin 40 mg p.o at bedtime, tamsulosin 0.4 mg p.o. daily, continue CPAP nightly and while napping. DVT ppx: Lovenox Code status: Full code Anticipated discharge place: Pending clinical course Anticipated discharge time: Pending clinical course Objective - Vital Signs Vital signs: Vital Signs Temp 98.0 F 04/16/25 08:15 Pulse 75 04/16/25 09:01 Resp 19 04/16/25 08:15 BP 113/64 04/16/25 08:15 Pulse Ox 93 L 04/16/25 08:43 FiO2 40 04/16/25 04:23 Intake & Output 04/15/25 04/16/25 04/16/25 18:59 06:59 18:59 Intake Total 222 240 Output Total 1100 900 Balance -878 -900 240 Weight 106 kg Intake: Oral 222 240 Output: Urine 1100 900 Other: Voiding Method Indwelling Catheter Indwelling Catheter Indwelling Catheter # Bowel Movements 1 1 - Labs CBC & Chem 7: 04/16/25 06:29 04/16/25 06:29 Labs: Abnormal Lab Results - Last 24 Hours (Table) 04/15/25 04/15/25 04/16/25 Range/Units 16:45 21:12 06:29 WBC 3.81 L (4.50-10.00) 10*3/uL RBC 3.27 L (4.40-5.60) 10*6/uL Hgb 9.8 L (13.0-17.0) g/dL Hct 29.8 L (39.6-50.0) % Plt Count 59 L (140-440) 10*3/uL Lymphocytes # 0.53 L (0.90-5.00) 10*3/uL Sodium (137-145) mmol/L Potassium (3.5-5.1) mmol/L Creatinine (0.66-1.25) mg/dL Glucose (74-99) mg/dL POC Glucose (mg/dL) 188 H 200 H (70-110) mg/dL Calcium (8.4-10.2) mg/dL Magnesium (1.6-2.3) mg/dL 04/16/25 04/16/25 Range/Units 06:29 11:25 WBC (4.50-10.00) 10*3/uL RBC (4.40-5.60) 10*6/uL Hgb (13.0-17.0) g/dL Hct (39.6-50.0) % Plt Count (140-440) 10*3/uL Lymphocytes # (0.90-5.00) 10*3/uL Sodium 135 L (137-145) mmol/L Potassium 3.2 L (3.5-5.1) mmol/L Creatinine 0.33 L (0.66-1.25) mg/dL Glucose 111 H (74-99) mg/dL POC Glucose (mg/dL) 315 H (70-110) mg/dL Calcium 7.9 L (8.4-10.2) mg/dL Magnesium 1.5 L (1.6-2.3) mg/dL
--- NOTE | 2025-04-16 16:39 | P.PN ---
Subjective Progress Note Date: 04/16/25 The patient is seen today April 16, 2024 in follow-up on the selective care unit. He is currently sitting up in bed. Awake and alert in no acute distress. He is maintaining O2 saturation in the low 90s on 4 L/min per nasal cannula. He has been afebrile. Hemodynamically stable. White count 3.8. Hemoglobin 9.8. Platelets 59,000. Sodium 135. Potassium 3.2. Bicarb 30. BUN 15. Creatinine 0.33. Glucose 111. He remains on DuoNeb inhalations. Lovenox for DVT prophylaxis. Remains on a prednisone taper. Awaiting a bed at [facility]. Insurance authorization remains an issue Objective - Vital Signs Vital signs: Vital Signs Temp 98.3 F 04/16/25 15:35 Pulse 78 04/16/25 15:35 Resp 19 04/16/25 15:35 BP 116/63 04/16/25 15:35 Pulse Ox 92 L 04/16/25 15:35 FiO2 40 04/16/25 04:23 Intake & Output 04/15/25 04/16/25 04/16/25 18:59 06:59 18:59 Intake Total 222 240 Output Total 1100 900 500 Balance -878 -900 -260 Weight 106 kg Intake: Oral 222 240 Output: Urine 1100 900 500 Other: Voiding Method Indwelling Catheter Indwelling Catheter Indwelling Catheter # Bowel Movements 1 1 - Exam GENERAL EXAM: Alert, pleasant 65-year-old male, on 4 L nasal cannula, comfortable in no apparent distress. HEAD: Normocephalic. EYES: Normal reaction of pupils, equal size. NOSE: Clear with pink turbinates. THROAT: No erythema or exudates. NECK: Hard c-collar remains in place. No masses, no JVD. CHEST: No chest wall deformity. LUNGS: Equal air entry with few scattered rhonchi. CVS: S1 and S2 normal with no audible murmur, regular rhythm. ABDOMEN: No hepatosplenomegaly, normal bowel sounds, no guarding or rigidity. SPINE: No scoliosis or deformity SKIN: No rashes CENTRAL NERVOUS SYSTEM: No focal deficits, tone is normal in all 4 extremities. EXTREMITIES: There is no peripheral edema. No clubbing, no cyanosis. Peripheral pulses are intact. - Labs CBC & Chem 7: 04/16/25 06:29 04/16/25 06:29 Labs: Abnormal Lab Results - Last 24 Hours (Table) 04/15/25 04/15/25 04/16/25 Range/Units 16:45 21:12 06:29 WBC 3.81 L (4.50-10.00) 10*3/uL RBC 3.27 L (4.40-5.60) 10*6/uL Hgb 9.8 L (13.0-17.0) g/dL Hct 29.8 L (39.6-50.0) % Plt Count 59 L (140-440) 10*3/uL Lymphocytes # 0.53 L (0.90-5.00) 10*3/uL Sodium (137-145) mmol/L Potassium (3.5-5.1) mmol/L Creatinine (0.66-1.25) mg/dL Glucose (74-99) mg/dL POC Glucose (mg/dL) 188 H 200 H (70-110) mg/dL Calcium (8.4-10.2) mg/dL Magnesium (1.6-2.3) mg/dL 04/16/25 04/16/25 Range/Units 06:29 11:25 WBC (4.50-10.00) 10*3/uL RBC (4.40-5.60) 10*6/uL Hgb (13.0-17.0) g/dL Hct (39.6-50.0) % Plt Count (140-440) 10*3/uL Lymphocytes # (0.90-5.00) 10*3/uL Sodium 135 L (137-145) mmol/L Potassium 3.2 L (3.5-5.1) mmol/L Creatinine 0.33 L (0.66-1.25) mg/dL Glucose 111 H (74-99) mg/dL POC Glucose (mg/dL) 315 H (70-110) mg/dL Calcium 7.9 L (8.4-10.2) mg/dL Magnesium 1.5 L (1.6-2.3) mg/dL Assessment and Plan Assessment: Acute hypoxic respiratory failure, multifactorial. The patient has developed postoperative atelectasis of the left lower lobe and the patient has significant elevation in volume loss in the left lung compared to the right. Previous bronchoscopy and sputum analysis was positive for Serratia marcescens. Nasal culture is positive for MSSA and the patient completed the course of antibiotics. He has a very weak cough and poor ability to perform pulmonary toileting. The patient shows ongoing improvement in oxygenation and patient is currently on 4 L of oxygen by nasal cannula. Completed his antibiotic course. T8 spinal cord injury. The patient has severe spinal canal stenosis at the level of C7/T1 with motor weakness in the lower extremities in addition to myelopathy. The patient is post C7/T1 discectomy with decompression and fusion and the patient also had extension of a previous C2/7 fusion to T3. This was done back on March 21, 2025 Hypotension, being given IV fluids. Recovered and blood pressure is stable Thrombocytopenia, rule out antibiotic induced. Maintained on Lovenox for DVT prophylaxis Abdominal distention/ileus, recovered Obstructive sleep apnea maintain CPAP therapy on outpatient basis Diabetes mellitus type 2, with steroid-induced hyperglycemia Hypotension, rule out septic versus neurogenic hypotension post spine surgery Sinus tachycardia Hyperlipidemia Seroma in the posterior soft tissues along the length of the skin jarad, spinal surgeries following Bilateral lower extremity weakness, ongoing motor weakness in the lower extremities bilaterally with absent motor function at this point with bilateral foot drop. Patient's sensations in the lower limbs have improved, but now patient is completely paraplegic. T8 p spinal cord injury with motor paralysis lower extremities bilaterally with absent sensation. He does have some feelings in his lower abdomen towards the groin. History of prior cervical fusion C3-C7 History of severe L5-S1 neuroforaminal stenosis Plan: The patient was seen and evaluated Labs and medications reviewed Currently on 4 L nasal cannula Titrate down the FiO2 as tolerated Continue bronchodilators Continue the incentive spirometer Lovenox for DVT prophylaxis Continue Mucinex Awaiting rehabilitation bed/insurance availability We will continue to follow I have personally seen and examined the patient, performed the documentation and the assessment and plan as written. Number of minutes spent on the visit: 10 Dictation was produced using Siemens dictation software. Please excuse any grammatical, word or spelling errors.
[2025-04-16 17:03] LABS: Glucose,Whole Blood 191 mg/dL (70-110)
[2025-04-16 20:19] LABS: Glucose,Whole Blood 285 mg/dL (70-110)
[2025-04-17 06:05] LABS: Glucose,Whole Blood 104 mg/dL (70-110)
[2025-04-17 07:45] LABS: African American GFR (CKD) >90 (>60 ml/min/1.73 sqM); Anion Gap 2 mmol/L; Blood Urea Nitrogen 16 mg/dL (9-20); Calcium 8.0 mg/dL (8.4-10.2); Carbon Dioxide 32 mmol/L (22-30); Chloride 101 mmol/L (98-107); Glucose 92 mg/dL (74-99); Magnesium 1.7 mg/dL (1.6-2.3); Non-African American GFR(CKD) >90 (>60 ml/min/1.73 sqM); Potassium 3.8 mmol/L (3.5-5.1); Sodium 135 mmol/L (137-145)
[2025-04-17] MEDS: predniSONE 10 MG TAB PO SCH (09:27)
--- NOTE | 2025-04-17 09:49 | XR ---
EXAMINATION TYPE: XR chest 1V portable DATE OF EXAM: 04/17/2025 9:27 AM COMPARISON: 04/13/2025 CLINICAL INDICATION: Male, 65 years old with history of increased O2 demands, TECHNIQUE: XR chest 1V portable view(s) obtained. FINDINGS: The heart size is enlarged. The pulmonary vasculature is normal. Small right pleural effusion is present. Left lower lobe infiltrate and/or effusion is present. Postsurgical changes are at the cervical thoracic junction IMPRESSION: 1. Worsening left lower lung field consolidation. Correlate for Pneumonia and pleural effusion. 2. Small right pleural effusion developing [facility], , 04/17/2025 9:47 AM
--- NOTE | 2025-04-17 11:18 | P.CONS ---
History of Present Illness - Reason for Consult Consult date: 04/17/25 wound care - History of Present Illness This is a 65-year-old patient being seen on 3 S. for hospital-acquired stage II pressure ulcers to the right and left buttocks. At this time patient is currently on BiPAP sitting up in bed. Patient is unable to tolerate movement to assess the pressure ulcers. No photographs are available. Per nursing documentation patient has a stage II pressure ulcer to the right and left buttoc ks. Review Of Systems: Constitutional: No fever, no chills, no night sweats. No weight change. No weakness, fatigue or lethargy. No daytime sleepiness. Integumentary:reports wounds, no lesions. No rash or pruritus. No unusual bruising. No change in hair or nails. Physical exam: General Appearance: Alert, cooperative, no distress, appears stated age. Skin: See HPI all other Skin color, texture, tugor normal, no rashes or lesions. Neurologic: Alert oriented x3 Assessment: 1. Stage II pressure ulcer left buttocks 2. Stage II pressure ulcer right buttocks Plan: 1. Apply honey gel and bordered foam to the site. Turn patient every 2 hours as tolerated. Thank you for the consultation any questions please contact the wound care center DNP note has been reviewed and discussed with Dr. Bojorquez and the impression and plan of care has been directed as dictated. Past Medical History Past Medical History: Diabetes Mellitus, Hypertension, Sleep Apnea/CPAP/BIPAP Additional Past Medical History / Comment(s): depression History of Any Multi-Drug Resistant Organisms: None Reported Past Surgical History: Appendectomy, Cholecystectomy Additional Past Surgical History / Comment(s): neck surgery, left elbow, Past Anesthesia/Blood Transfusion Reactions: No Reported Reaction Past Psychological History: Depression Smoking Status: Never smoker Past Alcohol Use History: None Reported Past Drug Use History: None Reported Medications and Allergies Home Medications Medication Instructions Recorded Confirmed Type Aspirin EC [Ecotrin Low Dose] 81 mg PO DAILY 02/15/25 03/18/25 History Cetirizine HCl [Zyrtec] 10 mg PO DAILY 02/15/25 03/18/25 History Cholecalciferol (Vitamin D3) 50 mcg PO DAILY 02/15/25 03/18/25 History [Vitamin D3 (50 Mcg = 2000 Iu)] Dulaglutide [Trulicity] 4.5 mg SQ SA 02/15/25 03/18/25 History Famotidine 20 mg PO DAILY 02/15/25 03/18/25 History Fluticasone Nasal [place] [Flonase 1 spray EA NOSTRIL DAILY 02/15/25 03/18/25 History Nasal [place]] Ipratropium [place] 0.06%Nasal 1 spray NASAL BID 02/15/25 03/18/25 History [Atrovent Nasal 0.06%] Nortriptyline [Pamelor] 100 mg PO HS 02/15/25 03/18/25 History Pramipexole [Mirapex] 0.25 mg PO HS 02/15/25 03/18/25 History Simvastatin [Zocor] 80 mg PO HS 02/15/25 03/18/25 History Vibegron [Gemtesa] 75 mg PO DAILY 02/15/25 03/18/25 History lisinopriL 40 mg PO DAILY 02/15/25 03/18/25 History metFORMIN HCL [Metformin HCl] 500 mg PO BID-W/MEALS 02/15/25 03/18/25 History EPINEPHrine (Auto Inject) [Epipen] 0.3 mg IM ONCE PRN 03/18/25 03/18/25 History Testosterone Cypionate 200 mg IM Q14D 03/18/25 03/18/25 History [Depo-Testosterone] Vitamin B-12 250mcg 500 mcg PO DAILY 03/18/25 03/18/25 History Allergies Allergy/AdvReac Type Severity Reaction Status Date / Time bee venom protein (honey bee) Allergy Anaphylaxis Verified 03/18/25 15:55 pollen extracts AdvReac Itching Verified 03/18/25 15:55 Physical Exam Vitals: Vital Signs Temp Pulse Pulse Resp BP BP Pulse Ox 04/17/25 10:08 04/17/25 09:49 98.7 F 92 26 H 106/65 91 L 04/17/25 09:45 92 24 83 L 04/17/25 08:52 94 04/17/25 08:40 92 90 L 04/17/25 08:00 92 26 H 04/17/25 07:40 99.2 F 92 18 97/63 96 04/17/25 04:25 80 17 121/74 96 04/17/25 00:06 85 18 146/83 93 L 04/16/25 23:56 04/16/25 21:42 88 06/09/25 21:29 90 04/16/25 19:48 98.0 F 93 18 120/69 90 L 04/16/25 16:46 75 04/16/25 16:35 78 04/16/25 15:35 98.3 F 78 19 116/63 92 L 04/16/25 14:00 91 19 04/16/25 12:26 78 04/16/25 12:15 79 04/16/25 12:00 97.9 F 85 19 111/61 90 L FiO2 04/17/25 10:08 60 04/17/25 09:49 04/17/25 09:45 04/17/25 08:52 04/17/25 08:40 04/17/25 08:00 04/17/25 07:40 04/17/25 04:25 04/17/25 00:06 04/16/25 23:56 40 04/16/25 21:42 04/16/25 21:29 04/16/25 19:48 04/16/25 16:46 04/16/25 16:35 04/16/25 15:35 04/16/25 14:00 04/16/25 12:26 04/16/25 12:15 04/16/25 12:00 Intake and Output 04/16/25 04/17/25 04/17/25 22:59 06:59 14:59 Intake Total 480 Output Total 950 1000 Balance -470 -1000 Intake: Oral 480 Output: Urine 950 1000 Other: Voiding Method Indwelling Catheter Indwelling Catheter Indwelling Catheter # Bowel Movements 1 Weight 101 kg 101 kg Results CBC & Chem 7: 04/16/25 06:29 04/17/25 06:22 Labs: Abnormal Lab Results - Last 24 Hours (Table) 04/16/25 04/16/25 04/16/25 Range/Units 11:25 16:57 20:17 Sodium (137-145) mmol/L Carbon Dioxide (22-30) mmol/L Creatinine (0.66-1.25) mg/dL POC Glucose (mg/dL) 315 H 191 H 285 H (70-110) mg/dL Calcium (8.4-10.2) mg/dL 04/17/25 Range/Units 06:22 Sodium 135 L (137-145) mmol/L Carbon Dioxide 32 H (22-30) mmol/L Creatinine 0.40 L (0.66-1.25) mg/dL POC Glucose (mg/dL) (70-110) mg/dL Calcium 8.0 L (8.4-10.2) mg/dL Assessment and Plan (1) Pressure ulcer of left buttock, stage 2 Current Visit: Yes Status: Acute Code(s): L89.322 - PRESSURE ULCER OF LEFT BUTTOCK, STAGE 2 SNOMED Code(s): 44857961372046 (2) Pressure ulcer of right buttock, stage 2 Current Visit: Yes Status: Acute Code(s): L89.312 - PRESSURE ULCER OF RIGHT BUTTOCK, STAGE 2 SNOMED Code(s): 33697364517062
[2025-04-17 11:42] LABS: Glucose,Whole Blood 139 mg/dL (70-110)
--- NOTE | 2025-04-17 11:55 | P.PN ---
Subjective Progress Note Date: 04/17/25 Subjective: Patient seen and examined at bedside. Patient started to get more hypoxic this morning, now requiring BiPAP. Pertinent positives and negatives as discussed above, a complete review of systems was performed and all other systems are negative. Vitals Signs Reviewed. General: Nontoxic, no distress, appears at stated age Derm: Warm, dry Head: Atraumatic, normocephalic, symmetric Eyes: EOMI, no lid lag, anicteric sclera Mouth: No lip lesion, mucus membranes moist Cardiovascular: S1S2 reg, no murmur Lungs: Reduced breath sounds on the left lower lobe, no accessory muscle use, supplemental oxygen Abdominal: Soft, nontender to palpation, no guarding, no appreciable organomegal y Ext: No gross muscle atrophy, no edema, no contractures Neuro: Flaccid paralysis in bilateral lower extremity, reduced sensation below abdomen Psych: Alert, oriented, appropriate affect Data Reviewed Today: Pertinent Labs: Sodium 135, potassium 3.8, magnesium 1.7, blood sugars range between 90 anterior to 25 Imaging: Chest x-ray independently interpreted, shows worsening left lower lobe density Assessment and Plan: #. Acute hypoxemic respiratory failure secondary to severe atelectasis and m ucous plugging status post bronchoscopy x 2 #. Healthcare acquired Pneumonia secondary to Serratia and Milagros #. Leukocytosis,resolved Due to worsening respiratory status, likely has new atelectasis given thick secretions - Discussed with pulmonology, patient now will be going back to medical ICU, may need to be bronched again and intubated. Previously extubated on 04/02/25 Continue to wean oxygen Continue with steroid taper, prednisone to 30 mg daily today Continue DuoNebs 4 times daily and every 2 hours as needed Meropenem and Fluconazole course completed Continue with Mucomyst, DuoNebs 4 times daily, every 2 hours as needed Encourage incentive spirometry Aggressive pulmonary toileting Monitor CBC #. Cervical myelopathy secondary to severe spinal canal stenosis involving C7-T1 #. Status post extensive cervical decompression with discectomy at C7-T1 and fusion with extension of fusion from C3-C7 with new extension down to T3 #. Severe right L5-S1 neuroforaminal stenosis #. Moderate bilateral L4-L5 neuroforaminal stenosis Orthopedic surgery following status post extensive cervical decompression with dissecting at C7-T1 and fusion with extension of fusion from C3-C7 with new extension down to T3 Continue Prednisone 30 mg PO daily, will taper Completed course of IV cefazolin Continue neurochecks every 4 hours and as needed. Maintain fall precautions Continue Samuels catheter, patient is retaining Continue Unna boot bilaterally to prevent foot drop PT/OT Social work following with regards to disposition #. Type II [id number] diabetes mellitus Hyperglycemia likely secondary to high-dose steroids being administered at this time. Improving. Lantus 40 units subcu daily as basal insulin Continue sliding scale insulin with ACHS blood glucose monitoring Continue premeal insulin 10 units Monitor for hypoglycemia #. Bilateral lower extremity edema Bilateral lower extremity Doppler ultrasound negative for DVT #. Hyponatremia Stable, likely in the setting of steroid use Monitor BMP #. Thrombocytopenia, stable heparin-induced platelet antibody 0.213 Hold Lovenox with plt <50k Monitor CBC #. Hypomagnesemia - 2 g IV magnesium sulfate given today #. Hypokalemia - Give 40 mill equivalent oral potassium given today Hypotension, resolved - Continue to hold antihypertensives Chronic: #. Hypertension #. Hyperlipidemia #. Obstructive sleep apnea #. BPH Continue atorvastatin 40 mg p.o at bedtime, tamsulosin 0.4 mg p.o. daily, continue CPAP nightly and while napping. DVT ppx: Lovenox Code status: Full code Anticipated discharge place: Pending clinical course Anticipated discharge time: Pending clinical course Objective - Vital Signs Vital signs: Vital Signs Temp 98.7 F 04/17/25 09:49 Pulse 89 04/17/25 11:21 Resp 26 H 04/17/25 09:49 BP 106/65 04/17/25 09:49 Pulse Ox 90 L 04/17/25 11:14 FiO2 60 04/17/25 10:08 Intake & Output 04/16/25 04/17/25 04/17/25 18:59 06:59 18:59 Intake Total 720 Output Total 500 1950 Balance 220 -1950 Weight 101 kg 101 kg Intake: Oral 720 Output: Urine 500 1950 Other: Voiding Method Indwelling Catheter Indwelling Catheter Indwelling Catheter # Bowel Movements 1 - Labs CBC & Chem 7: 04/16/25 06:29 04/17/25 06:22 Labs: Abnormal Lab Results - Last 24 Hours (Table) 04/16/25 04/16/25 04/17/25 Range/Units 16:57 20:17 06:22 Sodium 135 L (137-145) mmol/L Carbon Dioxide 32 H (22-30) mmol/L Creatinine 0.40 L (0.66-1.25) mg/dL POC Glucose (mg/dL) 191 H 285 H (70-110) mg/dL Calcium 8.0 L (8.4-10.2) mg/dL 04/17/25 Range/Units 11:41 Sodium (137-145) mmol/L Carbon Dioxide (22-30) mmol/L Creatinine (0.66-1.25) mg/dL POC Glucose (mg/dL) 139 H (70-110) mg/dL Calcium (8.4-10.2) mg/dL
--- NOTE | 2025-04-17 12:24 | P.PN ---
Progress Note - Text Progress Note Date: 04/17/25 The patient is seen and examined at bedside. He is now 4 weeks postop from his posterior cervical decompression with discectomy and fusion for his large disc herniation and severe stenosis at C7-T1 which caused a severe spinal cord injury. He is actively today being moved back to the intensive care unit regarding his respiratory status and respiratory failure. He is feeling more short of breath today. His imaging shows worsening at his lungs bilaterally. Neurologically he does not feel he has had any significant change. On exam He is breathing with nasal cannula in answering questions appropriately. He gets short of breath with conversation. His abdomen is soft but has some mild distention His lower extremity function is unchanged and remains with complete paralysis at his lower extremities. His upper extremity motion at his elbows wrist hands is essentially stable. He is making some gains with his hand motion bilaterally particularly on the left. Assessment and plan severe spinal cord injury with paralysis 4 weeks status post posterior cervical decompression with fusion extending from C3-T3 for his large acute disc herniation at C7-T1 Recurrent respiratory failure The patient is being moved back down to the intensive care unit regarding his respiratory status. It is likely that he is going to get reintubated. He shall continue care as per critical care service In regards to his paralysis, things are relatively unchanged. He will need continued aggressive care for spinal cord injury and Occupational Therapy to try to maximize his trunk and upper extremity use in hopes of him being able to sit up and transfer. He should continue his management for his lower extremities as well. He is continuing his medical care per medical service and critical care.
[2025-04-17 12:32] LABS: Glucose,Whole Blood 125 mg/dL (70-110)
[2025-04-17] MEDS: PIPERACILLIN-TAZOBACTAM 3.375 GM in SODIUM CHLORIDE 0.9% 100 ML IVPB SCH (13:22)
--- NOTE | 2025-04-17 13:34 | P.PN ---
Subjective Progress Note Date: 04/17/25 The patient is seen today April 16, 2025 in follow-up on the selective care unit. He is currently sitting up in bed. Awake and alert in no acute distress. He is maintaining O2 saturation in the low 90s on 4 L/min per nasal cannula. He has been afebrile. Hemodynamically stable. White count 3.8. Hemoglobin 9.8. Platelets 59,000. Sodium 135. Potassium 3.2. Bicarb 30. BUN 15. Creatinine 0.33. Glucose 111. He remains on DuoNeb inhalations. Lovenox for DVT prophylaxis. Remains on a prednisone taper. Awaiting a bed at [facility]. Insurance authorization remains an issue. The patient is seen today April 17, 2025 in follow-up on the selective care unit. He is sitting up in bed. Awake and alert. He is having increasing shortness of breath today with increasing dyspnea. Chest x-ray is again starting to show opacity in the left lung. He continues with a very weak cough. Unable to clear his own secretions. He has been working with respiratory therapy including with the incentive spirometer and flutter valve. He is now requiring 15 L high flow nasal cannula. He has been intolerant to BiPAP. Sodium 135. Potassium 3.8. Bicarb 32. BUN 16. Creatinine 0.40. Glucose 92. He remains on DuoNeb inhalations. Lovenox for DVT prophylaxis. Continued on Mucinex. Objective - Vital Signs Vital signs: Vital Signs Temp 98.7 F 04/17/25 09:49 Pulse 88 04/17/25 12:26 Resp 21 04/17/25 12:26 BP 143/77 04/17/25 12:26 Pulse Ox 94 L 04/17/25 12:30 FiO2 90 04/17/25 12:30 Intake & Output 04/16/25 04/17/25 04/17/25 18:59 06:59 18:59 Intake Total 720 Output Total 500 1950 Balance 220 -1950 Weight 101 kg 101 kg Intake: Oral 720 Output: Urine 500 1950 Other: Voiding Method Indwelling Catheter Indwelling Catheter Indwelling Catheter # Bowel Movements 1 - Exam GENERAL EXAM: Alert, weak 65-year-old male, on 15 L high flow nasal cannula, in mild respiratory distress. HEAD: Normocephalic. EYES: Normal reaction of pupils, equal size. NOSE: Clear with pink turbinates. THROAT: No erythema or exudates. NECK: Hard c-collar remains in place. No masses, no JVD. CHEST: No chest wall deformity. LUNGS: Equal air entry with few scattered rhonchi. Diminished in the left lung. CVS: S1 and S2 normal with no audible murmur, regular rhythm. ABDOMEN: No hepatosplenomegaly, normal bowel sounds, no guarding or rigidity. SPINE: No scoliosis or deformity SKIN: No rashes CENTRAL NERVOUS SYSTEM: No focal deficits, tone is normal in all 4 extremities. EXTREMITIES: There is no peripheral edema. No clubbing, no cyanosis. Peripheral pulses are intact. - Labs CBC & Chem 7: 04/16/25 06:29 04/17/25 06:22 Labs: Abnormal Lab Results - Last 24 Hours (Table) 04/16/25 04/16/25 04/17/25 Range/Units 16:57 20:17 06:22 Sodium 135 L (137-145) mmol/L Carbon Dioxide 32 H (22-30) mmol/L Creatinine 0.40 L (0.66-1.25) mg/dL POC Glucose (mg/dL) 191 H 285 H (70-110) mg/dL Calcium 8.0 L (8.4-10.2) mg/dL 04/17/25 04/17/25 Range/Units 11:41 12:30 Sodium (137-145) mmol/L Carbon Dioxide (22-30) mmol/L Creatinine (0.66-1.25) mg/dL POC Glucose (mg/dL) 139 H 125 H (70-110) mg/dL Calcium (8.4-10.2) mg/dL Assessment and Plan Assessment: Acute hypoxic respiratory failure, multifactorial. The patient has developed postoperative atelectasis of the left lower lobe and the patient has significant elevation in volume loss in the left lung compared to the right. Previous bronchoscopy and sputum analysis was positive for Serratia marcescens. Nasal culture is positive for MSSA and the patient completed the course of antibiotics. He has a very weak cough and poor ability to perform pulmonary toileting. The patient shows ongoing improvement in oxygenation and patient is currently on 4 L of oxygen by nasal cannula. Completed his antibiotic course. Chest x-ray from today April 17, 2025 is showing near complete whiteout of the left lung again. T8 spinal cord injury. The patient has severe spinal canal stenosis at the level of C7/T1 with motor weakness in the lower extremities in addition to mye lopathy. The patient is post C7/T1 discectomy with decompression and fusion and the patient also had extension of a previous C2/7 fusion to T3. This was done back on March 21, 2025 Hypotension, being given IV fluids. Recovered and blood pressure is stable Thrombocytopenia, rule out antibiotic induced. Maintained on Lovenox for DVT prophylaxis Abdominal distention/ileus, recovered Obstructive sleep apnea maintain CPAP therapy on outpatient basis Diabetes mellitus type 2, with steroid-induced hyperglycemia Hypotension, rule out septic versus neurogenic hypotension post spine surgery Sinus tachycardia Hyperlipidemia Seroma in the posterior soft tissues along the length of the skin jarad, spinal surgeries following Bilateral lower extremity weakness, ongoing motor weakness in the lower extremities bilaterally with absent motor function at this point with bilateral foot drop. Patient's sensations in the lower limbs have improved, but now patient is completely paraplegic. T8 p spinal cord injury with motor paralysis lower extremities bilaterally with absent sensation. He does have some feelings in his lower abdomen towards the groin. History of prior cervical fusion C3-C7 History of severe L5-S1 neuroforaminal stenosis Plan: The patient was seen and evaluated Chest x-ray, labs and medications reviewed Currently on 15 L high flow nasal cannula He has been intolerant to BiPAP Transfer back to the intensive care unit Placed on Airvo high flow oxygen Continue chest physiotherapy Continue bronchodilators Continue the incentive spirometer Continue the flutter valve Continue Mucinex May require re-intubation and bronchoscopy to help clear the secretions again If he goes back on the vent will recommend early tracheostomy and PEG tube placement Will then most likely need long-term acute care placement I have personally seen and examined the patient, performed the documentation and the assessment and plan as written. Number of minutes spent on the visit: 10 Dictation was produced using [employer] dictation software. Please excuse any grammatical, word or spelling errors.
[2025-04-17] MEDS: DEXMEDETOMIDINE/0.9% NACL(PMX) 400 MCG in EMPTY BAG 1 BAG IV SCH (16:03)
[2025-04-17 17:59] LABS: Glucose,Whole Blood 150 mg/dL (70-110)
[2025-04-17 20:03] LABS: Glucose,Whole Blood 178 mg/dL (70-110)
[2025-04-18 05:38] LABS: Basophils # (A) 0.01 10*3/uL (0.00-0.10); Basophils % (A) 0.3 %; Eosinophils # (A) 0.05 10*3/uL (0.04-0.35); Eosinophils % (A) 1.4 %; HCT 32.3 % (39.6-50.0); HGB 10.9 g/dL (13.0-17.0); Immature Platelet Fraction 3.3 % (1.1-6.1); Lymphocytes # (A) 0.94 10*3/uL (0.90-5.00); Lymphocytes % (A) 25.4 %; MCH 30.6 pg (27.0-32.0); MCHC 33.7 g/dL (32.0-37.0); MCV 90.7 fL (80.0-97.0); Monocytes # (A) 0.43 10*3/uL (0.20-1.00); Monocytes % (A) 11.6 %; Neutrophils # (A) 2.23 10*3/uL (1.80-7.70); Neutrophils % (A) 60.2 %; RBC 3.56 10*6/uL (4.40-5.60); RDW 14.8 % (11.5-14.5); WBC 3.70 10*3/uL (4.50-10.00)
[2025-04-18 05:40] LABS: Platelet Count 89 10*3/uL (140-440)
[2025-04-18 05:48] LABS: African American GFR (CKD) >90 (>60 ml/min/1.73 sqM); Anion Gap 3 mmol/L; Blood Urea Nitrogen 17 mg/dL (9-20); Calcium 8.5 mg/dL (8.4-10.2); Carbon Dioxide 28 mmol/L (22-30); Chloride 104 mmol/L (98-107); Glucose 95 mg/dL (74-99); Magnesium 1.7 mg/dL (1.6-2.3); Non-African American GFR(CKD) >90 (>60 ml/min/1.73 sqM); Potassium 3.8 mmol/L (3.5-5.1); Sodium 135 mmol/L (137-145)
[2025-04-18 06:52] LABS: Glucose,Whole Blood 79 mg/dL (70-110)
[2025-04-18] MEDS: POTASSIUM CHLORIDE 10 MEQ in WATER FOR INJECTION 1 100ML.BAG IVPB SCH (08:59)
--- NOTE | 2025-04-18 09:13 | P.PN ---
Subjective Progress Note Date: 04/18/25 Subjective: Patient seen and examined at bedside. Continues to remain hypoxic, on Airvo. Pertinent positives and negatives as discussed above, a complete review of systems was performed and all other systems are negative. Vitals Signs Reviewed. General: Nontoxic, no distress, appears at stated age Derm: Warm, dry Head: Atraumatic, normocephalic, symmetric Eyes: EOMI, no lid lag, anicteric sclera Mouth: No lip lesion, mucus membranes moist Cardiovascular: S1S2 reg, no murmur Lungs: Reduced breath sounds on the left lower lobe, no accessory muscle use, supplemental oxygen Abdominal: Soft, nontender to palpation, no guarding, no appreciable organomegaly Ext: No gross muscle atrophy, no edema, no contractures Neuro: Flaccid paralysis in bilateral lower extremity, reduced sensation below abdomen Psych: Alert, oriented, appropriate affect Data Reviewed Today: Pertinent Labs: WBC 3.7, hemoglobin 10.9, platelet 89, Creatinine 0.26, glucose range between 79-1 78 Imaging: Chest x-ray independently interpreted, shows persistent left lower lobe opacity Assessment and Plan: #. Acute hypoxemic respiratory failure secondary to severe atelectasis and mucous plugging status post bronchoscopy x 2 #. Healthcare acquired Pneumonia secondary to Serratia and Milagros #. Leukocytosis,resolved Due to worsening respiratory status, likely has new atelectasis given thick secretions - Discussed with pulmonology, in medical ICU, may need to be bronched again and intubated. - Patient restarted on Zosyn IV 3.375 g every 8 hours, for possible postobstructive pneumonia Previously extubated on 04/02/25 Continue to wean oxygen, currently on Airvo Continue with steroid taper, prednisone to 30 mg daily today Continue DuoNebs 4 times daily and every 2 hours as needed Meropenem and Fluconazole course completed Continue with Mucomyst, DuoNebs 4 times daily, every 2 hours as needed Encourage incentive spirometry Aggressive pulmonary toileting Monitor CBC #. Cervical myelopathy secondary to severe spinal canal stenosis involving C7-T1 #. Status post extensive cervical decompression with discectomy at C7-T1 and fusion with extension of fusion from C3-C7 with new extension down to T3 #. Severe right L5-S1 neuroforaminal stenosis #. Moderate bilateral L4-L5 neuroforaminal stenosis Orthopedic surgery following status post extensive cervical decompression with dissecting at C7-T1 and fusion with extension of fusion from C3-C7 with new extension down to T3 Continue Prednisone 30 mg PO daily, will taper Completed course of IV cefazolin Continue neurochecks every 4 hours and as needed. Maintain fall precautions Continue Samuels catheter, patient is retaining Continue Unna boot bilaterally to prevent foot drop PT/OT Social work following with regards to disposition #. Type II yav-pwinsov-chofblecc diabetes mellitus Hyperglycemia likely secondary to high-dose steroids being administered at this time. Improving. Lantus 40 units subcu daily as basal insulin Continue sliding scale insulin with ACHS blood glucose monitoring Continue premeal insulin 10 units Monitor for hypoglycemia #. Bilateral lower extremity edema Bilateral lower extremity Doppler ultrasound negative for DVT #. Hyponatremia Stable, likely in the setting of steroid use Monitor BMP #. Thrombocytopenia, stable heparin-induced platelet antibody 0.213 Hold Lovenox with plt <50k Monitor CBC #. Hypomagnesemia, resolved #. Hypokalemia, resolved Hypotension, resolved - Continue to hold antihypertensives Chronic: #. Hypertension #. Hyperlipidemia #. Obstructive sleep apnea #. BPH Continue atorvastatin 40 mg p.o at bedtime, tamsulosin 0.4 mg p.o. daily, continue CPAP nightly and while napping. DVT ppx: Lovenox Code status: Full code Anticipated discharge place: Pending clinical course Anticipated discharge time: Pending clinical course Objective - Vital Signs Vital signs: Vital Signs Temp 98 F 04/18/25 08:00 Pulse 48 L 04/18/25 08:30 Resp 15 04/18/25 08:30 BP 101/61 04/18/25 08:30 Pulse Ox 99 04/18/25 08:30 FiO2 70 04/18/25 08:00 Intake & Output 04/17/25 04/18/25 04/18/25 18:59 06:59 18:59 Intake Total 132.794 326.682 10 Output Total 990 495 30 Balance -857.206 -168.318 -20 Weight 101 kg 106.6 kg Intake: IV 20 120 10 kvo 20 120 10 Intake, IV Titration 112.794 206.682 Amount Dexmedetomidine/0.9% NaCl 12.794 106.682 (Pmx) 400 mcg In Empty Bag 1 bag @ 0.2 MCG/KG/HR 5.05 mls/hr IV .[id number] JUAN LUIS Rx#:[id number] Piperacillin-Tazobactam 3 100 100 .375 gm In Sodium Chloride 0.9% 100 ml @ 25 mls/hr IVPB Q8HR [facility] Rx# :[id number] Output: Urine 990 495 30 Other: Voiding Method Indwelling Catheter Indwelling Catheter - Labs CBC & Chem 7: 04/18/25 05:19 04/18/25 05:19 Labs: Abnormal Lab Results - Last 24 Hours (Table) 04/17/25 04/17/25 04/17/25 Range/Units 11:41 12:30 17:58 WBC (4.50-10.00) 10*3/uL RBC (4.40-5.60) 10*6/uL Hgb (13.0-17.0) g/dL Hct (39.6-50.0) % Plt Count (140-440) 10*3/uL Sodium (137-145) mmol/L Creatinine (0.66-1.25) mg/dL POC Glucose (mg/dL) 139 H 125 H 150 H (70-110) mg/dL 04/17/25 04/18/25 04/18/25 Range/Units 20:02 05:19 05:19 WBC 3.70 L (4.50-10.00) 10*3/uL RBC 3.56 L (4.40-5.60) 10*6/uL Hgb 10.9 L (13.0-17.0) g/dL Hct 32.3 L (39.6-50.0) % Plt Count 89 L D (140-440) 10*3/uL Sodium 135 L (137-145) mmol/L Creatinine 0.26 L (0.66-1.25) mg/dL POC Glucose (mg/dL) 178 H (70-110) mg/dL
--- NOTE | 2025-04-18 10:00 | XR ---
EXAMINATION TYPE: XR chest 1V portable DATE OF EXAM: 04/18/2025 3:58 AM COMPARISON: 04/17/2025 CLINICAL INDICATION: Male, 65 years old with history of assess lungs, TECHNIQUE: XR chest 1V portable view(s) obtained. FINDINGS: The heart size is normal. The pulmonary vasculature is normal. There is opacification over the left lower lung field. Small left pleural effusion is present. Previous right small pleural effusion not as well identified current exam IMPRESSION: 1. Left lower lobe consolidation with a left pleural fluid collection. Correlate for pneumonia. Mony nued follow-up is recommended [facility], , 04/18/2025 9:58 AM
[2025-04-18] MEDS: ACETYLCYSTEINE 800 MG/4 ML VIAL INHALATION SCH (10:57)
[2025-04-18 11:49] LABS: Glucose,Whole Blood 73 mg/dL (70-110)
--- NOTE | 2025-04-18 14:06 | P.PN ---
Progress Note - Text Progress Note Date: 04/18/25 Orthopedic spine: History of present illness: Patient is a very pleasant 65-year-old male who is seen examined at bedside in selective care for follow-up evaluation of the cervical spine. He is status post posterior cervical decompression discectomy at C7-T1 with extension of fusion from C7 down to T3. 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 He states he continues to be able to feel his right great toe. He does have some increased sensation over his anterior thighs which she states again is greater on the right than the left. He continues to keep his hard cervical collar intact. He was transitioned into his new hard cervical collar. He is not experiencing any cervical pain. His jarad were removed previously. He continues with dressing changes as needed. He has good range of motion of his bilateral upper extremities except for his shoulders bilaterally. He is able to make a fist but is weak with his topographical drafter. He is awake and alert. He is able to answer questions appropriately. Patient is in a good mood this morning. He continues have significant difficulty with this bilateral lower extremities. He has some improved numbness around his abdomen towards the groin and some increased sensation over his anterior thighs. He admits to continued sensation in his right great toe. He has no motor function in his lower extremities. His lower extremity symptoms have not improved. He currently has compression stockings and boots intact. Samuels catheter has been reinserted after failing a voiding trial. He will be discharged with a catheter intact. He has had further difficulty from a pulmonary standpoint after transitioning out of the ICU to selective care. He is now back in the ICU. Pulmonology is currently discussing the possibility of tracheostomy. Patient is also currently waiting for authorization through the [place] for approval for discharge to spinal cord rehabilitation facility. He continues to be seen exam by multiple medical providers including pulmonology and medicine. Physical Exam Posterior cervical Fusion: Status post surgical day number #28 Patient is awake, alert, and oriented 3; patient is answering questions appropriately [employer] St[employer] Cleaner strength, thumb strength, interosseous strength, biceps strength, and triceps strength positive sustained bilaterally He is able to shrug his shoulders. Weakness with topographical drafter bilaterally Hard cervical collar intact Reporting some sensation with palpation over the anterior thighs bilaterally, right greater than left He states he has sensation with palpation over his right great toe Pneumatic boots intact bilateral lower extremities Compression stockings intact bilaterally Samuels catheter intact Dressing is removed and change at the bedside No active drainage from the surgical site Some dark blood is able to be expressed with some compression over the inferior portion of the surgical incision site with no pus or purulent discharge; no obvious infection Assessment: Spinal cord injury with paralysis at T8 Postoperative day #28: Status post posterior cervical decompression discectomy at C7-T1 with extension of fusion from C7-T3 Bilateral lower extremity paralysis Bilateral lower extremity loss of sensation Acute hypoxic respiratory failure Left-sided atelectasis Obstructive sleep apnea syndrome on CPAP normally Type 2 diabetes Hypotension could be related to sepsis could also be neurogenic post spinal surgery Dyslipidemia Plan: We will continue with our plan as set forth previously.. 1. Patient was transferred back to the ICU due to pulmonary status. He is awake, alert, and oriented and answering questions appropriately. He has been closely manage from pulmonary standpoint. They may be planning to proceed forward with a tracheostomy. Currently waiting for insurance authorization from the [place] for approval to discharge to spinal cord rehabilitation facility. 2. Patient must keep his hard cervical collar intact at all times. He was transitioned into his new hard cervical collar. Patient may continue with dressing changes as needed at the posterior cervical spine. 3. Patient continues to have flaccid paralysis in his bilateral lower extremi ties. He has had some increase in sensation around his abdomen towards his groin and admits to some increased sensation over his anterior thighs greater on the right than the left. He continues to have some sensation in his right great toe. They should continue with position change regularly to help prevent decubitus issues. 4. When medically stable clear, patient will be planning to be discharged to a spinal cord facility for rehabilitation. Patient may follow-up with Jesu Villarreal PA-C or Dr. Gideon Noyola at [facility] in 2-3 weeks following discharge Patient was seen and examined in the intensive care. He was on oxygen nasal. He was talking comfortably. But could feel some shortness of breath with prolonged speech. He is not reporting any pain. His neurologic status is essentially unchanged. They are monitoring closely in terms of his respiratory status. They are considering bronchoscopy tomorrow on .
--- NOTE | 2025-04-18 15:27 | P.PN ---
Subjective Progress Note Date: 04/18/25 Principal diagnosis: Acute hypoxic respiratory failure with left lower lobe atelectasis, pneumonia, and left lung collapse/opacification. This is a 64-year-old male patient was undergone a C 7 T1 discectomy, done posteriorly with wide laminectomy and foraminotomy and partial facetectomy. The patient was experiencing cervical myelopathy with severe bilateral lower extremity weakness and T8 paresthesia. The patient has previous history of cervical spine fusion C2-C7. The patient was found to have a large herniated disc C7-T1 with severe spinal cord stenosis and based on that the patient was taken to the operating room and underwent a C7-T1 discectomy on 03/21/2025. The patient has become progressively more hypoxic. Currently he is on Airvo at 60 L and FiO2 of 90%. His current pulse ox is in order of 90 to 93%. Slightly tachycardic. Blood pressure is also soft at 89/62. Based on worsening hypoxemia, CT of the chest was done and the patient was found to have s ignificant volume loss in the left lung compared to the right. There is marked volume loss and atelectasis in addition to an area of consolidation in the left upper lobe and elevation of the left hemidiaphragm in addition to significant gastric distention. The patient has dilated air in the stomach and colon. Blood work shows a white cell count of 14, hemoglobin 12.4 and a platelet count of 175. Sodium levels at 137, bicarb is at 23, potassium level is at 4.3 with a chloride of 102. BUN 23 with a creatinine of 0.9. The patient is resting comfortably in bed. He is wearing a hard neck collar. He is reporting some mild shortness of breath even at rest. He is tolerating the Airvo. He is currently on IV Solu-Medrol 100 mg every 6 hours post neck surgery. He is also on IV fluids with l normal saline at rate of 75 cc an hour. Comorbidities include hypertension, hyperlipidemia, diabetes mellitus type 2, obstructive sleep apnea maintained on CPAP therapy on outpatient basis On today's evaluation of 03/23/25, patient is still on the BiPAP pressure of 14 over 6 cm of water and FiO2 has been weaned down to 65%. The patient's abdomen seems to be less distended. He had 2 bowel movements and the patient is also passing flatus. Fluid balance +223 cc over the past 24 hours and the patient remains on normal saline at a rate of 75 cc an hour. Neurologically, unchanged and the patient has absent motor function lower extremities bilaterally. He is on broad-spectrum antibiotics and the patient is currently on Zosyn vancomycin combination. Follow-up chest x-ray shows some interval improvement in aeration in the left lung base. Lung volumes in the left remain small and there is some ongoing atelectatic change at left lower lobe. The patient's white cell count is 11, hemoglobin 11.3 and a platelet count of 180. Electrolytes are all within normal limits. BUN is 40 with a creatinine of 1.05. The patient is able to communicate. He is alert and awake. Denies having any specific complaints. Still wearing a hard neck collar. 03/24/2025, the patient is laying flat in bed and is currently on a BiPAP at a pressure of 14/6 with an FiO2 of 75% overnight and Airvo during the day. He remains on normal saline at rate of 75 cc an hour. Chest x-ray still showing left lower lobe consolidation. Abdomen is soft. He had 3 bowel movements. He is on Lantus insulin. The patient's mentation is awake and alert. Nevertheless, he continues to have profound weakness in the lower extremity and he remains paraplegic. Remains on IV Solu-Medrol. Blood sugars are elevated and he remains on Lantus 15 units daily and NovoLog sliding scale coverage. The white cell count 11.9, hemoglobin 11.3 and a platelet count of 201. BUN 34 with a creatinine of 0.8. Sodium levels at 136. Blood sugars up to 82. He is postop day #4 following an open decompression and fusion of C7-T1 surgery was done due to a large disc herniation and spinal cord injury. He is also status post fusion and extension from prior fusion C2-7 and near extension fusion down to T3. He is unable to move his legs still. Samuels catheter still in place. Using incentive spirometer. Afebrile. 03/25/2025, the patient is being seen for a follow-up. Repeat chest x-ray was done and shows ongoing volume loss and atelectasis in the left lung base. I also performed an ultrasound of the chest and there is no sizable pleural effusion for thoracentesis. Findings are more consistent with consolidation/atelectasis. Remains on Airvo at 60 L and FiO2 of 90%. Incentive spirometer. Overnight, using BiPAP pressure of 14/6 and use of water with an FiO2 of 80%. Remains in normal Saint rate of 75 cc an hour. Fluid balance is +550 cc over the past 24 hours. No respiratory difficulties. The white cell count of 12. Hemoglobin is 10.9. Platelet count is 210. BUN is 32 with a creatinine of 0.8. Sodium levels at 138 and potassium levels of 4.2. Remains on Zosyn and vancomycin. Neurologically unchanged and the patient continues to be paraplegic. Patient was seen today on 03/26/2025, patient remains in the ICU, he is on Airvo at 90% and 60 L flow, patient is generally weak, alert and appropriate, IV fluid at 75 cc/h, continues to have weakness from the waist down. Patient had cervical spine surgery postoperative day #6. Chest x-ray showed complete opacification of the left lung consistent with mucous plugging involving the left mainstem bronchus. Hence I discussed this with the patient today, patient needs to be bronchoscope, needs to have extraction of mucous plugs. Considering the patient is marginal at best, will need to be intubated and placed on mechanical ventilation for the procedure. Based on the findings we will decide whether the patient needs to remain on mechanical ventilation after bronchoscopy or not. Most likely he will remain ventilated after the bronchoscopy. Patient has a bit of leukocytosis with WBC of 13.3 hemoglobin 11.3 electrolytes are normal renal profile is normal. Nasal screen has been positive for MSSA not MRSA. Patient was seen today on 03/27/2025, patient remains intubated and mechanically ventilated, kept him on mechanical ventilation after his bronchoscopy yesterday and suctioning of mucous plugs from the left mainstem bronchus and left lung. Left lung continues to show good inflation, minimal left lower lobe atelectasis, patient is on assist-control rate of 18 tidal volume 550 FiO2 50% and PEEP of 8 ABG today showed a pO2 of 84 pCO2 37 pH of 7.41. Patient is also on propofol at 50 mg/kg/min IV fluids at 75 cc/h on antibiotics in the form of Zosyn and vancomycin, antibiotics to be changed once we have the final culture from the BAL. I plan to wean the patient today, possibly consider placing him on BiPAP 12/6/50% assuming he tolerates weaning and he passes his weaning parameters. Patient is awake, follows instructions, although he is still on propofol. WBC count is 14.48 hemoglobin 10.8 electrolytes are normal, BUN is 29 creatinine 0.7 Patient was seen today on 03/28/2025, patient was extubated yesterday, had to be placed on BiPAP to avoid atelectasis again of the left lung and mucous plugging patient has very poor cough, cannot clear his secretions, and his chest x-ray today is beginning to show early atelectasis in the left lower lobe, questionable effusion but ultrasound did not show much fluid. I believe it is all a picture of atelectasis involving the left lower lobe and I am afraid that the patient may have reopacification of the left lung in the next 24 hours. In the meantime I will continue patient on BiPAP, will recommend chest PT, N- acetylcysteine and albuterol, Mucinex, and hopefully we can avoid another bronchoscopy. Otherwise if the patient opacifies left lung again, may have to be bronchoscope again. And if we do I will keep him longer on mechanical ventilation. Patient remains on antibiotics/broad-spectrum he is WBC count is 19.36 hemoglobin is 10.7 electrolytes are normal renal profile is normal. Seen today on 03/29/2025, patient remains in the ICU, chest x-ray is showing wo rsening and he is again having near complete opacification of the left lung. Apparently the patient is developing mucous plugging again involving the left mainstem bronchus and the cultures from his last BAL came back showing Serratia marcescens. Considering the patient's critical illness, I am transitioning Zosyn to Merrem for better coverage of Serratia. Sensitivity is still pending on the organism. But empirically Merrem would be a better choice for Serratia marcescens for the time being. Patient still on BiPAP at 14/6/60%, and considering his abnormal chest x-ray, I am recommending bronchoscopy again and this has to be again done with the patient intubated as his O2 saturation is ma rginal even on 60% BiPAP. Patient looks comfortable, he is not in distress. Continues to have leukocytosis with WC of 23.23 hemoglobin 11.2 basic metabolic profile is normal renal profile is normal continues to have cervical collar in place. Patient was seen today on 03/30/2025, remains in the ICU, intubated and mechanically ventilated, patient is on assist-control rate of 18 tidal volume 550 FiO2 50% PEEP of 10 ABG showed a pO2 of 122 pCO2 37 pH of 7.47 hence FiO2 was cut down to 40%. Remains on Merrem remains on propofol at 40 mcg/kg/min and on Versed 1 mg/h. Patient is sedated, does not seem to be in any distress, chest x-ray is showing slight worsening in the left lower lobe, but not severe enough to justify bronchoscopy again. However considering this I am not planning to extubate the patient today as if extubated he will most likely end up requiring bronchoscopy again. Patient had positive cultures for Serratia marcescens, and is now on Merrem. Labs today were reviewed patient has leukocytosis with WBC count of 19.7 hemoglobin 11.3, basic metabolic profile is normal renal profile is normal patient is on nutritional support/enteral feeding. Chest x-ray today is a bit worrisome hence no plans to wean and extubate today. Patient was seen today on 03/31/2025, remains in the ICU, intubated and mechanically ventilated. Patient is on assist-control rate of 18 tidal volume 550 FiO2 40% and PEEP of 10 ABG on 45% showed a pO2 of 86 pCO2 42 pH of 7.44. Chest x-ray is showing left lower lobe atelectasis/airspace disease involving the left lower lobe hence I was concerned about recollapsing of the left lung, bronchoscopy was performed, and the secretions noted in the left lower lobe with were very minimal. Did not require lavage, there was not enough secretions to d o lavage. Hence the patient was kept intubated mechanically ventilated, he is now on propofol at 45 mcg/kg/min is on Versed 1 mg/h and is receiving vital HP at 32 cc/h. Remains on fluconazole, remains on Merrem. Continues to have a bit of leukocytosis with WBC of 19.12 hemoglobin 11.7 electrolytes are normal, renal profile is normal. Patient was seen today on 04/01/2025, remains in the ICU, remains intubated and mechanically ventilated. Patient is sedated with propofol at 45 mcg/kg/min and Versed 1 mg/h. Patient is calm he is on assist-control mode of mechanical ventilation rate 18 tidal volume 550 FiO2 40% PEEP that ABG showed a PO2 of 91 pCO2 37 pH of 7.52 chest x-ray showed improvement in his left lower lobe atelectasis but he does have bilateral pleural effusions has I recommended a dose of Lasix 40 mg IV push x 1 was given. Considering his ABG is better considering his chest x-ray is showing improvement, I recommended a trial of weaning. However on pressure support and CPAP, his ABG was marginal with a pO2 of 61 pCO2 40 pH of 7.51, hence I felt the patient is not ready to be weaned especially with relatively low pO2 of 61. And I felt the patient should be back on sedation and back on assist-control mode of mechanical ventilation. In the meantime patient remains on nutritional support, remains in GI prophylaxis: And again he received a dose of Lasix earlier today for what seems to be bilateral pleural effusions. Continues to have leukocytosis with WBC count of 19.4 hemoglobin 11.5 electrolytes are normal, renal profile is normal blood sugar is 245 Patient was seen today on 04/02/2025, remains in the ICU, intubated and mechanically ventilated. Remains on the same ventilator settings, is on assist- control mode of mechanical ventilation, ABG today showed a pO2 of 103 pCO2 34 pH of 7.57 chest x-ray is showing improvement in his left-sided opacity much better today compared to the last few days, WBC count remains elevated at 21.02 hemoglobin is 11.7 electrolytes are normal, renal profile is normal. Blood sugar is 286. Considering the improvement noted on the chest x-ray, patient will be given another weaning trial today, and I will discontinue his sedation, placed patient on pressure support of 12 and CPAP, his PEEP is down to 6. Patient will be weaned and if tolerated we could proceed to extubation. Otherwise may keep patient mechanically ventilated again for another day. In the meantime he is receiving Merrem for his Serratia marcescens pneumonia. The patient is seen today April 16, 2025 in follow-up on the selective care unit. He is currently sitting up in bed. Awake and alert in no acute distress. He is maintaining O2 saturation in the low 90s on 4 L/min per nasal cannula. He has been afebrile. Hemodynamically stable. White count 3.8. Hemoglobin 9.8. Platelets 59,000. Sodium 135. Potassium 3.2. Bicarb 30. BUN 15. Creatinine 0.33. Glucose 111. He remains on DuoNeb inhalations. Lovenox for DVT prophylaxis. Remains on a prednisone taper. Awaiting a bed at [facility]. Insurance authorization remains an issue. The patient is seen today April 17, 2025 in follow-up on the selective care unit. He is sitting up in bed. Awake and alert. He is having increasing shortness of breath today with increasing dyspnea. Chest x-ray is again starting to show opacity in the left lung. He continues with a very weak cough. Unable to clear his own secretions. He has been working with respiratory therapy including with the incentive spirometer and flutter valve. He is now requiring 15 L high flow nasal cannula. He has been intolerant to BiPAP. Sodium 135. Potassium 3.8. Bicarb 32. BUN 16. Creatinine 0.40. Glucose 92. He remains on DuoNeb inhalations. Lovenox for DVT prophylaxis. Continued on Mucinex. Patient was seen today on 04/18/2025, patient was transferred to the ICU yes terday mostly because of worsening chest x-ray and worsening hypoxia. He is now on Airvo with 70% FiO2 at 60 L flow patient was on BiPAP last night 14/8/70%, patient is receiving incentive spirometry, flutter valve, chest physical therapy, albuterol and Mucomyst, there is slight improvement in the appearance of the left lower lobe but nonetheless 3 days atelectatic. Patient continues to have very poor cough. He is marginal at best, at this point I will hold on bronchoscopy and suctioning of secretions, hoping patient will do well with the medications and with the treatment we are offering at this point. Although I have a strong feeling that the patient may eventually require bronchoscopy if he does not clear his left lower lobe. Labs were reviewed including relatively normal CBC relatively normal electrolytes and normal renal profile. Objective - Vital Signs Vital signs: Vital Signs Temp 98 F 04/18/25 08:00 Pulse 90 04/18/25 15:01 Resp 20 04/18/25 11:00 BP 100/55 04/18/25 11:00 Pulse Ox 85 L 04/18/25 12:53 FiO2 55 04/18/25 12:53 Intake & Output 04/17/25 04/18/25 04/18/25 18:59 06:59 18:59 Intake Total 132.794 326.682 680 Output Total 990 495 230 Balance -857.206 -168.318 450 Weight 101 kg 106.6 kg Intake: IV 20 120 80 kvo 20 120 80 Intake, IV Titration 112.794 206.682 Amount Dexmedetomidine/0.9% NaCl 12.794 106.682 (Pmx) 400 mcg In Empty Bag 1 bag @ 0.2 MCG/KG/HR 5.05 mls/hr IV .[id number] JUAN LUIS Rx#:[id number] Piperacillin-Tazobactam 3 100 100 .375 gm In Sodium Chloride 0.9% 100 ml @ 25 mls/hr IVPB Q8HR JUAN LUIS Rx# :[id number] Oral 600 Output: Urine 990 495 230 Other: Voiding Method Indwelling Catheter Indwelling Catheter Indwelling Catheter - Exam General: Reveals 64-year-old white male, on Airvo, not in any distress Derm: No rashes. Head: atraumatic, normocephalic Eyes: EOMI, anicteric sclera Mouth: Moist mucous membranes, no evidence of lesions Cardiovascular: Normal S1 S2 reg, no murmur, rubs, or gallops Lungs: Good breath sound bilaterally no rhonchi no wheezes Abdominal: soft, a bowel sounds are present Extremities: no gross muscle atrophy, no edema, no contractures, Neuro: Alert oriented x 3 no gross focal deficit Psych: Normal mood affect and mental status examination - Labs CBC & Chem 7: 04/18/25 05:19 04/18/25 05:19 Labs: Abnormal Lab Results - Last 24 Hours (Table) 04/17/25 04/17/25 04/18/25 Range/Units 17:58 20:02 05:19 WBC 3.70 L (4.50-10.00) 10*3/uL RBC 3.56 L (4.40-5.60) 10*6/uL Hgb 10.9 L (13.0-17.0) g/dL Hct 32.3 L (39.6-50.0) % Plt Count 89 L D (140-440) 10*3/uL Sodium (137-145) mmol/L Creatinine (0.66-1.25) mg/dL POC Glucose (mg/dL) 150 H 178 H (70-110) mg/dL 04/18/25 Range/Units 05:19 WBC (4.50-10.00) 10*3/uL RBC (4.40-5.60) 10*6/uL Hgb (13.0-17.0) g/dL Hct (39.6-50.0) % Plt Count (140-440) 10*3/uL Sodium 135 L (137-145) mmol/L Creatinine 0.26 L (0.66-1.25) mg/dL POC Glucose (mg/dL) (70-110) mg/dL Assessment and Plan Assessment: Impression Acute hypoxic respiratory failure, multifactorial. The patient has developed postoperative atelectasis of the left lower lobe and the patient has significant elevation in volume loss in the left lung compared to the right. Previous bronchoscopy and sputum analysis was positive for Serratia marcescens. Nasal culture is positive for MSSA and the patient completed the course of antibi otics. He has a very weak cough and poor ability to perform pulmonary toileting. The patient shows ongoing improvement in oxygenation and patient is currently on 4 L of oxygen by nasal cannula. Completed his antibiotic course. Chest x-ray from today April 17, 2025 is showing near complete whiteout of the left lung again. T8 spinal cord injury. The patient has severe spinal canal stenosis at the level of C7/T1 with motor weakness in the lower extremities in addition to myelopathy. The patient is post C7/T1 discectomy with decompression and fusion and the patient also had extension of a previous C2/7 fusion to T3. This was done back on March 21, 2025 Hypotension, being given IV fluids. Recovered and blood pressure is stable Thrombocytopenia, rule out antibiotic induced. Maintained on Lovenox for DVT prophylaxis Abdominal distention/ileus, recovered Obstructive sleep apnea maintain CPAP therapy on outpatient basis Diabetes mellitus type 2, with steroid-induced hyperglycemia Hypotension, rule out septic versus neurogenic hypotension post spine surgery Sinus tachycardia Hyperlipidemia Seroma in the posterior soft tissues along the length of the skin jarad, spinal surgeries following Bilateral lower extremity weakness, ongoing motor weakness in the lower extremities bilaterally with absent motor function at this point with bilateral foot drop. Patient's sensations in the lower limbs have improved, but now patient is completely paraplegic. T8 p spinal cord injury with motor paralysis lower extremities bilaterally with absent sensation. He does have some feelings in his lower abdomen towards the groin. History of prior cervical fusion C3-C7 History of severe L5-S1 neuroforaminal stenosis Recommendation: Continue present supportive care measures Continue Airvo and titrate accordingly Continue incentive spirometry Continue chest physiotherapy Continue flutter valve Continue albuterol and Mucomyst Will continue to follow Condition is marginal at best. Time with Patient: Less than 30
[2025-04-18 16:52] LABS: Glucose,Whole Blood 141 mg/dL (70-110)
[2025-04-18 20:01] LABS: Glucose,Whole Blood 256 mg/dL (70-110)
[2025-04-19 06:32] LABS: Basophils # (A) 0.01 10*3/uL (0.00-0.10); Basophils % (A) 0.2 %; Eosinophils # (A) 0.04 10*3/uL (0.04-0.35); Eosinophils % (A) 0.9 %; HCT 36.9 % (39.6-50.0); HGB 11.8 g/dL (13.0-17.0); Lymphocytes # (A) 1.26 10*3/uL (0.90-5.00); Lymphocytes % (A) 28.3 %; MCH 29.5 pg (27.0-32.0); MCHC 32.0 g/dL (32.0-37.0); MCV 92.3 fL (80.0-97.0); Monocytes # (A) 0.40 10*3/uL (0.20-1.00); Monocytes % (A) 9.0 %; Neutrophils # (A) 2.66 10*3/uL (1.80-7.70); Neutrophils % (A) 59.6 %; Platelet Count 122 10*3/uL (140-440); RBC 4.00 10*6/uL (4.40-5.60); RDW 14.9 % (11.5-14.5); WBC 4.46 10*3/uL (4.50-10.00)
[2025-04-19 06:45] LABS: African American GFR (CKD) >90 (>60 ml/min/1.73 sqM); Anion Gap 4 mmol/L; Blood Urea Nitrogen 14 mg/dL (9-20); Calcium 8.5 mg/dL (8.4-10.2); Carbon Dioxide 30 mmol/L (22-30); Chloride 100 mmol/L (98-107); Glucose 160 mg/dL (74-99); Magnesium 1.6 mg/dL (1.6-2.3); Non-African American GFR(CKD) >90 (>60 ml/min/1.73 sqM); Potassium 3.9 mmol/L (3.5-5.1); Sodium 134 mmol/L (137-145)
--- NOTE | 2025-04-19 08:41 | XR ---
EXAMINATION TYPE: XR chest 1V portable DATE OF EXAM: 04/19/2025 6:37 AM COMPARISON: None. CLINICAL INDICATION: Male, 65 years old with history of assess lungs, TECHNIQUE: XR chest 1V portable view(s) obtained. FINDINGS: The heart size is normal. The pulmonary vasculature is normal. Streaky opacity at the left base can be compatible with atelectasis. There is elevation left diaphrag m. Findings are improving. Right lateral costophrenic angle excluded from the [id number]. IMPRESSION: 1. Atelectasis left base, improved from comparison [facility], , 04/19/2025 8:39 AM
[2025-04-19 08:59] LABS: Glucose,Whole Blood 172 mg/dL (70-110)
[2025-04-19] MEDS: POTASSIUM CHLORIDE ER 20 MEQ TAB.ER PO SCH (09:10)
--- NOTE | 2025-04-19 09:28 | P.PN ---
Subjective Progress Note Date: 04/19/25 Subjective: Patient seen and examined at bedside. Continues to remain hypoxic, on Airvo. Still has very weak cough. Getting chest physiotherapy Pertinent positives and negatives as discussed above, a complete review of systems was performed and all other systems are negative. Vitals Signs Reviewed. 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 Acute hypoxemic respiratory failure secondary to severe atelectasis and m ucous plugging status post bronchoscopy x 2 #. Healthcare acquired Pneumonia secondary to Serratia and Milagros #. Leukocytosis,resolved #. Persistent atelectasis - Patient now back in medical ICU on Airvo, continue to wean - Patient restarted on Zosyn IV 3.375 g every 8 hours, for possible postobst ructive pneumonia - Previously extubated on 04/02/25 Continue with steroid taper, prednisone to 30 mg daily today Continue DuoNebs 4 times daily and every 2 hours as needed Meropenem and Fluconazole course previously completed Continue with Mucomyst, DuoNebs 4 times daily, every 2 hours as needed Encourage incentive spirometry Aggressive pulmonary toileting Monitor CBC #. Cervical myelopathy secondary to severe spinal canal stenosis involving C7-T1 #. Status post extensive cervical decompression with discectomy at C7-T1 and fusion with extension of fusion from C3-C7 with new extension down to T3 #. Severe right L5-S1 neuroforaminal stenosis #. Moderate bilateral L4-L5 neuroforaminal stenosis Orthopedic surgery following status post extensive cervical decompression with dissecting at C7-T1 and fusion with extension of fusion from C3-C7 with new extension down to T3 Continue Prednisone 30 mg PO daily, will taper Completed course of IV cefazolin Continue neurochecks every 4 hours and as needed. Maintain fall precautions Continue Samuels catheter, patient is retaining Continue Unna boot bilaterally to prevent foot drop PT/OT Social work following with regards to disposition #. Type II [id number] diabetes mellitus Hyperglycemia likely secondary to high-dose steroids being administered at this time. Improving. -Due to poor oral intake and low blood sugars, Lantus changed to 10 units daily sliding scale insulin, monitor for hypoglycemia #. Bilateral lower extremity edema Bilateral lower extremity Doppler ultrasound negative for DVT #. Hyponatremia Stable, likely in the setting of steroid use Monitor BMP #. Thrombocytopenia, stable, improving heparin-induced platelet antibody 0.213 Monitor CBC #. Hypomagnesemia, resolved #. Hypokalemia, resolved Hypotension, resolved - Continue to hold antihypertensives Chronic: #. Hypertension #. Hyperlipidemia #. Obstructive sleep apnea #. BPH #. Restless leg syndrome #. Neuropathy DVT ppx: Lovenox Code status: Full code Anticipated discharge place: Pending clinical course Anticipated discharge time: Pending clinical course Objective - Vital Signs Vital signs: Vital Signs Temp 98.0 F 04/19/25 08:30 Pulse 54 L 04/19/25 08:30 Resp 17 04/19/25 08:30 BP 91/53 04/19/25 08:30 Pulse Ox 90 L 04/19/25 08:30 FiO2 60 04/19/25 08:00 Intake & Output 04/18/25 04/19/25 04/19/25 18:59 06:59 18:59 Intake Total 720 387.418 45.842 Output Total 880 975 75 Balance -160 -587.582 -29.158 Weight 102.8 kg Intake: IV 120 120 20 kvo 120 120 20 Intake, IV Titration 267.418 25.842 Amount Dexmedetomidine/0.9% NaCl 167.418 0.842 (Pmx) 400 mcg In Empty Bag 1 bag @ 0.2 MCG/KG/HR 5.05 mls/hr IV .[id number] [facility] Rx#:[id number] Piperacillin-Tazobactam 3 100 25 .375 gm In Sodium Chloride 0.9% 100 ml @ 25 mls/hr IVPB Q8HR [facility] Rx# :[id number] Oral 600 Output: Urine 880 975 75 Other: Voiding Method Indwelling Catheter Indwelling Catheter - Labs CBC & Chem 7: 04/19/25 06:15 04/19/25 06:15 Labs: Abnormal Lab Results - Last 24 Hours (Table) 04/18/25 04/18/25 04/19/25 Range/Units 16:51 20:00 06:15 WBC 4.46 L (4.50-10.00) 10*3/uL RBC 4.00 L (4.40-5.60) 10*6/uL Hgb 11.8 L (13.0-17.0) g/dL Hct 36.9 L (39.6-50.0) % Plt Count 122 L (140-440) 10*3/uL Immature Gran # 0.09 H (0.00-0.04) 10*3/uL Sodium (137-145) mmol/L Creatinine (0.66-1.25) mg/dL Glucose (74-99) mg/dL POC Glucose (mg/dL) 141 H 256 H (70-110) mg/dL 04/19/25 04/19/25 Range/Units 06:15 08:57 WBC (4.50-10.00) 10*3/uL RBC (4.40-5.60) 10*6/uL Hgb (13.0-17.0) g/dL Hct (39.6-50.0) % Plt Count (140-440) 10*3/uL Immature Gran # (0.00-0.04) 10*3/uL Sodium 134 L (137-145) mmol/L Creatinine 0.35 L (0.66-1.25) mg/dL Glucose 160 H (74-99) mg/dL POC Glucose (mg/dL) 172 H (70-110) mg/dL
--- NOTE | 2025-04-19 10:35 | P.PN ---
Progress Note - Text Progress Note Date: 04/19/25 Orthopedic spine: History of present illness: Patient is a very pleasant 65-year-old male who is seen examined at bedside in the ICU for follow-up evaluation of the cervical spine. He is status post posterior cervical decompression discectomy at C7-T1 with extension of fusion from C7 down to T3. He states he continues to be able to feel his right great toe and today states he feels his other toes in the right foot foot and some sensation over his right foot but not in the youssef or calf area. He does have some increased sensation over his anterior thighs which he states again is greater on the right than the left. He continues to keep his hard cervical collar intact. He was transitioned into his new hard cervical collar. He is not experiencing any cervical pain. He continues with dressing changes as needed. He currently has no significant drainage at the bedside. His surgical site is currently dry. He has good range of motion of his bilateral upper extremities except for his shoulders bilaterally. He is able to make a fist but is weak with his measurement supervisor. He is awake and alert. He is able to answer questions appropriately. Patient is in a good mood this morning. He continues have significant difficulty with this bilateral lower extremities. He has some improved numbness around his abdomen towards the groin and some increased sensation over his anterior thighs. He admits to continued sensation in his right great toe. He has no motor function in his lower extremities. His lower extremity symptoms have not improved. He currently has compression stockings and boots intact. Samuels catheter has been reinserted after failing a voiding trial. He will be discharged with a catheter intact. He has had further difficulty from a pulmonary standpoint after transitioning out of the ICU to [facility]. He is now back in the ICU. Patient states he has had some improvement from a pulmonology standpoint since yesterday and they are no longer considering tracheostomy. He may be transferred back to [facility]. Patient is also currently waiting for authorization through the [place] for approval for discharge to spinal cord rehabilitation facility. He continues to be seen exam by multiple medical providers including pulmonology and medicine. Physical Exam Posterior cervical Fusion: Status post surgical day number #29 Patient is awake, alert, and oriented 3; patient is answering questions appropriately Machine Room Operator strength, thumb strength, interosseous strength, biceps strength, and triceps strength positive sustained bilaterally He is able to shrug his shoulders. Weakness with measurement supervisor bilaterally Hard cervical collar intact Reporting some sensation with palpation over the anterior thighs bilaterally, right greater than left He states he has sensation with palpation over his right great toe and other toes of the right foot and on his foot Pneumatic boots intact bilateral lower extremities Compression stockings intact bilaterally Samuels catheter intact Dressing is clean, dry, and intact at the inferior aspect of the incision site of the posterior cervicothoracic surgical site No active drainage from the surgical site Assessment: Spinal cord injury with paralysis at T8 Postoperative day #29: Status post posterior cervical decompression discectomy at C7-T1 with extension of fusion from C7-T3 Bilateral lower extremity paralysis Bilateral lower extremity loss of sensation Acute hypoxic respiratory failure Left-sided atelectasis Obstructive sleep apnea syndrome on CPAP normally Type 2 diabetes Hypotension could be related to sepsis could also be neurogenic post spinal surgery Dyslipidemia Plan: We will continue with our plan as set forth previously.. 1. Patient was transferred back to the ICU due to pulmonary status. He is awak e, alert, and oriented and answering questions appropriately. He has been closely manage from pulmonary standpoint. Patient states he has improved from pulmonary standpoint since yesterday. They are no longer planning for tracheostomy. He may be transferred back to [facility] care soon. Currently waiting for insurance [facility] from [facility] for approval to discharge to spinal cord rehabilitation facility. 2. Patient must keep his hard cervical collar intact at all times. He was transitioned into his new hard cervical collar. Patient may continue with dressing changes as needed at the posterior cervical spine. 3. Patient continues to have flaccid paralysis in his bilateral lower extremities. He has had some increase in sensation around his abdomen towards his groin and admits to some increased sensation over his anterior thighs greater on the right than the left. He continues to have some sensation in his right great toe and does feel some increase sensation over the toes of the right foot and the top of the right foot. He continues to have paralysis.. They should continue with position change regularly to help prevent decubitus issues. 4. When medically stable clear, patient will be planning to be discharged to a spinal cord facility for rehabilitation. Patient may follow-up with Jesu Villarreal PA-C or Dr. Gideon Noyola at [facility] in 2-3 weeks following discharge
[2025-04-19 13:13] LABS: Glucose,Whole Blood 152 mg/dL (70-110)
--- NOTE | 2025-04-19 13:55 | P.PN ---
Subjective Progress Note Date: 04/19/25 Principal diagnosis: Acute hypoxic respiratory failure with left lower lobe atelectasis, pneumonia, and left lung collapse/opacification. This is a 64-year-old male patient was undergone a C 7 T1 discectomy, done posteriorly with wide laminectomy and foraminotomy and partial facetectomy. The patient was experiencing cervical myelopathy with severe bilateral lower extremity weakness and T8 paresthesia. The patient has previous history of cervical spine fusion C2-C7. The patient was found to have a large herniated disc C7-T1 with severe spinal cord stenosis and based on that the patient was taken to the operating room and underwent a C7-T1 discectomy on 03/21/2025. The patient has become progressively more hypoxic. Currently he is on Airvo at 60 L and FiO2 of 90%. His current pulse ox is in order of 90 to 93%. Slightly tachycardic. Blood pressure is also soft at 89/62. Based on worsening hypoxemia, CT of the chest was done and the patient was found to have s ignificant volume loss in the left lung compared to the right. There is marked volume loss and atelectasis in addition to an area of consolidation in the left upper lobe and elevation of the left hemidiaphragm in addition to significant gastric distention. The patient has dilated air in the stomach and colon. Blood work shows a white cell count of 14, hemoglobin 12.4 and a platelet count of 175. Sodium levels at 137, bicarb is at 23, potassium level is at 4.3 with a chloride of 102. BUN 23 with a creatinine of 0.9. The patient is resting comfortably in bed. He is wearing a hard neck collar. He is reporting some mild shortness of breath even at rest. He is tolerating the Airvo. He is currently on IV Solu-Medrol 100 mg every 6 hours post neck surgery. He is also on IV fluids with l normal saline at rate of 75 cc an hour. Comorbidities include hypertension, hyperlipidemia, diabetes mellitus type 2, obstructive sleep apnea maintained on CPAP therapy on outpatient basis On today's evaluation of 03/23/25, patient is still on the BiPAP pressure of 14 over 6 cm of water and FiO2 has been weaned down to 65%. The patient's abdomen seems to be less distended. He had 2 bowel movements and the patient is also passing flatus. Fluid balance +223 cc over the past 24 hours and the patient remains on normal saline at a rate of 75 cc an hour. Neurologically, unchanged and the patient has absent motor function lower extremities bilaterally. He is on broad-spectrum antibiotics and the patient is currently on Zosyn vancomycin combination. Follow-up chest x-ray shows some interval improvement in aeration in the left lung base. Lung volumes in the left remain small and there is some ongoing atelectatic change at left lower lobe. The patient's white cell count is 11, hemoglobin 11.3 and a platelet count of 180. Electrolytes are all within normal limits. BUN is 40 with a creatinine of 1.05. The patient is able to communicate. He is alert and awake. Denies having any specific complaints. Still wearing a hard neck collar. 03/24/2025, the patient is laying flat in bed and is currently on a BiPAP at a pressure of 14/6 with an FiO2 of 75% overnight and Airvo during the day. He remains on normal saline at rate of 75 cc an hour. Chest x-ray still showing left lower lobe consolidation. Abdomen is soft. He had 3 bowel movements. He is on Lantus insulin. The patient's mentation is awake and alert. Nevertheless, he continues to have profound weakness in the lower extremity and he remains paraplegic. Remains on IV Solu-Medrol. Blood sugars are elevated and he remains on Lantus 15 units daily and NovoLog sliding scale coverage. The white cell count 11.9, hemoglobin 11.3 and a platelet count of 201. BUN 34 with a creatinine of 0.8. Sodium levels at 136. Blood sugars up to 82. He is postop day #4 following an open decompression and fusion of C7-T1 surgery was done due to a large disc herniation and spinal cord injury. He is also status post fusion and extension from prior fusion C2-7 and near extension fusion down to T3. He is unable to move his legs still. Samuels catheter still in place. Using incentive spirometer. Afebrile. 03/25/2025, the patient is being seen for a follow-up. Repeat chest x-ray was done and shows ongoing volume loss and atelectasis in the left lung base. I also performed an ultrasound of the chest and there is no sizable pleural effusion for thoracentesis. Findings are more consistent with consolidation/atelectasis. Remains on Airvo at 60 L and FiO2 of 90%. Incentive spirometer. Overnight, using BiPAP pressure of 14/6 and use of water with an FiO2 of 80%. Remains in normal Saint rate of 75 cc an hour. Fluid balance is +550 cc over the past 24 hours. No respiratory difficulties. The white cell count of 12. Hemoglobin is 10.9. Platelet count is 210. BUN is 32 with a creatinine of 0.8. Sodium levels at 138 and potassium levels of 4.2. Remains on Zosyn and vancomycin. Neurologically unchanged and the patient continues to be paraplegic. Patient was seen today on 03/26/2025, patient remains in the ICU, he is on Airvo at 90% and 60 L flow, patient is generally weak, alert and appropriate, IV fluid at 75 cc/h, continues to have weakness from the waist down. Patient had cervical spine surgery postoperative day #6. Chest x-ray showed complete opacification of the left lung consistent with mucous plugging involving the left mainstem bronchus. Hence I discussed this with the patient today, patient needs to be bronchoscope, needs to have extraction of mucous plugs. Considering the patient is marginal at best, will need to be intubated and placed on mechanical ventilation for the procedure. Based on the findings we will decide whether the patient needs to remain on mechanical ventilation after bronchoscopy or not. Most likely he will remain ventilated after the bronchoscopy. Patient has a bit of leukocytosis with WBC of 13.3 hemoglobin 11.3 electrolytes are normal renal profile is normal. Nasal screen has been positive for MSSA not MRSA. Patient was seen today on 03/27/2025, patient remains intubated and mechanically ventilated, kept him on mechanical ventilation after his bronchoscopy yesterday and suctioning of mucous plugs from the left mainstem bronchus and left lung. Left lung continues to show good inflation, minimal left lower lobe atelectasis, patient is on assist-control rate of 18 tidal volume 550 FiO2 50% and PEEP of 8 ABG today showed a pO2 of 84 pCO2 37 pH of 7.41. Patient is also on propofol at 50 mg/kg/min IV fluids at 75 cc/h on antibiotics in the form of Zosyn and vancomycin, antibiotics to be changed once we have the final culture from the BAL. I plan to wean the patient today, possibly consider placing him on BiPAP 12/6/50% assuming he tolerates weaning and he passes his weaning parameters. Patient is awake, follows instructions, although he is still on propofol. WBC count is 14.48 hemoglobin 10.8 electrolytes are normal, BUN is 29 creatinine 0.7 Patient was seen today on 03/28/2025, patient was extubated yesterday, had to be placed on BiPAP to avoid atelectasis again of the left lung and mucous plugging patient has very poor cough, cannot clear his secretions, and his chest x-ray today is beginning to show early atelectasis in the left lower lobe, questionable effusion but ultrasound did not show much fluid. I believe it is all a picture of atelectasis involving the left lower lobe and I am afraid that the patient may have reopacification of the left lung in the next 24 hours. In the meantime I will continue patient on BiPAP, will recommend chest PT, N- acetylcysteine and albuterol, Mucinex, and hopefully we can avoid another bronchoscopy. Otherwise if the patient opacifies left lung again, may have to be bronchoscope again. And if we do I will keep him longer on mechanical ventilation. Patient remains on antibiotics/broad-spectrum he is WBC count is 19.36 hemoglobin is 10.7 electrolytes are normal renal profile is normal. Seen today on 03/29/2025, patient remains in the ICU, chest x-ray is showing wo rsening and he is again having near complete opacification of the left lung. Apparently the patient is developing mucous plugging again involving the left mainstem bronchus and the cultures from his last BAL came back showing Serratia marcescens. Considering the patient's critical illness, I am transitioning Zosyn to Merrem for better coverage of Serratia. Sensitivity is still pending on the organism. But empirically Merrem would be a better choice for Serratia marcescens for the time being. Patient still on BiPAP at 14/6/60%, and considering his abnormal chest x-ray, I am recommending bronchoscopy again and this has to be again done with the patient intubated as his O2 saturation is ma rginal even on 60% BiPAP. Patient looks comfortable, he is not in distress. Continues to have leukocytosis with WC of 23.23 hemoglobin 11.2 basic metabolic profile is normal renal profile is normal continues to have cervical collar in place. Patient was seen today on 03/30/2025, remains in the ICU, intubated and mechanically ventilated, patient is on assist-control rate of 18 tidal volume 550 FiO2 50% PEEP of 10 ABG showed a pO2 of 122 pCO2 37 pH of 7.47 hence FiO2 was cut down to 40%. Remains on Merrem remains on propofol at 40 mcg/kg/min and on Versed 1 mg/h. Patient is sedated, does not seem to be in any distress, chest x-ray is showing slight worsening in the left lower lobe, but not severe enough to justify bronchoscopy again. However considering this I am not planning to extubate the patient today as if extubated he will most likely end up requiring bronchoscopy again. Patient had positive cultures for Serratia marcescens, and is now on Merrem. Labs today were reviewed patient has leukocytosis with WBC count of 19.7 hemoglobin 11.3, basic metabolic profile is normal renal profile is normal patient is on nutritional support/enteral feeding. Chest x-ray today is a bit worrisome hence no plans to wean and extubate today. Patient was seen today on 03/31/2025, remains in the ICU, intubated and mechanically ventilated. Patient is on assist-control rate of 18 tidal volume 550 FiO2 40% and PEEP of 10 ABG on 45% showed a pO2 of 86 pCO2 42 pH of 7.44. Chest x-ray is showing left lower lobe atelectasis/airspace disease involving the left lower lobe hence I was concerned about recollapsing of the left lung, bronchoscopy was performed, and the secretions noted in the left lower lobe with were very minimal. Did not require lavage, there was not enough secretions to d o lavage. Hence the patient was kept intubated mechanically ventilated, he is now on propofol at 45 mcg/kg/min is on Versed 1 mg/h and is receiving vital HP at 32 cc/h. Remains on fluconazole, remains on Merrem. Continues to have a bit of leukocytosis with WBC of 19.12 hemoglobin 11.7 electrolytes are normal, renal profile is normal. Patient was seen today on 04/01/2025, remains in the ICU, remains intubated and mechanically ventilated. Patient is sedated with propofol at 45 mcg/kg/min and Versed 1 mg/h. Patient is calm he is on assist-control mode of mechanical ventilation rate 18 tidal volume 550 FiO2 40% PEEP that ABG showed a PO2 of 91 pCO2 37 pH of 7.52 chest x-ray showed improvement in his left lower lobe atelectasis but he does have bilateral pleural effusions has I recommended a dose of Lasix 40 mg IV push x 1 was given. Considering his ABG is better considering his chest x-ray is showing improvement, I recommended a trial of weaning. However on pressure support and CPAP, his ABG was marginal with a pO2 of 61 pCO2 40 pH of 7.51, hence I felt the patient is not ready to be weaned especially with relatively low pO2 of 61. And I felt the patient should be back on sedation and back on assist-control mode of mechanical ventilation. In the meantime patient remains on nutritional support, remains in GI prophylaxis: And again he received a dose of Lasix earlier today for what seems to be bilateral pleural effusions. Continues to have leukocytosis with WBC count of 19.4 hemoglobin 11.5 electrolytes are normal, renal profile is normal blood sugar is 245 Patient was seen today on 04/02/2025, remains in the ICU, intubated and mechanically ventilated. Remains on the same ventilator settings, is on assist- control mode of mechanical ventilation, ABG today showed a pO2 of 103 pCO2 34 pH of 7.57 chest x-ray is showing improvement in his left-sided opacity much better today compared to the last few days, WBC count remains elevated at 21.02 hemoglobin is 11.7 electrolytes are normal, renal profile is normal. Blood sugar is 286. Considering the improvement noted on the chest x-ray, patient will be given another weaning trial today, and I will discontinue his sedation, placed patient on pressure support of 12 and CPAP, his PEEP is down to 6. Patient will be weaned and if tolerated we could proceed to extubation. Otherwise may keep patient mechanically ventilated again for another day. In the meantime he is receiving Merrem for his Serratia marcescens pneumonia. The patient is seen today April 16, 2025 in follow-up on the selective care unit. He is currently sitting up in bed. Awake and alert in no acute distress. He is maintaining O2 saturation in the low 90s on 4 L/min per nasal cannula. He has been afebrile. Hemodynamically stable. White count 3.8. Hemoglobin 9.8. Platelets 59,000. Sodium 135. Potassium 3.2. Bicarb 30. BUN 15. Creatinine 0.33. Glucose 111. He remains on DuoNeb inhalations. Lovenox for DVT prophylaxis. Remains on a prednisone taper. Awaiting a bed at [facility]. Insurance authorization remains an issue. The patient is seen today April 17, 2025 in follow-up on the selective care unit. He is sitting up in bed. Awake and alert. He is having increasing shortness of breath today with increasing dyspnea. Chest x-ray is again starting to show opacity in the left lung. He continues with a very weak cough. Unable to clear his own secretions. He has been working with respiratory therapy including with the incentive spirometer and flutter valve. He is now requiring 15 L high flow nasal cannula. He has been intolerant to BiPAP. Sodium 135. Potassium 3.8. Bicarb 32. BUN 16. Creatinine 0.40. Glucose 92. He remains on DuoNeb inhalations. Lovenox for DVT prophylaxis. Continued on Mucinex. Patient was seen today on 04/18/2025, patient was transferred to the ICU yes terday mostly because of worsening chest x-ray and worsening hypoxia. He is now on Airvo with 70% FiO2 at 60 L flow patient was on BiPAP last night 14/8/70%, patient is receiving incentive spirometry, flutter valve, chest physical therapy, albuterol and Mucomyst, there is slight improvement in the appearance of the left lower lobe but nonetheless 3 days atelectatic. Patient continues to have very poor cough. He is marginal at best, at this point I will hold on bronchoscopy and suctioning of secretions, hoping patient will do well with the medications and with the treatment we are offering at this point. Although I have a strong feeling that the patient may eventually require bronchoscopy if he does not clear his left lower lobe. Labs were reviewed including relatively normal CBC relatively normal electrolytes and normal renal profile. Patient was seen today on 04/19/2025, remains in the ICU, remains on Airvo at 60% FiO2 and 60 L flow patient was on BiPAP last night, continues to receive CPT, continues to receive Mucinex, and Mucomyst, patient continues to have very poor cough, surprisingly his chest x-ray today is much better today compared to the x-ray he had yesterday. Patient is unable to clear any secretions. On his alert. O2 saturation remains marginal and his FiO2 is being titrated to maintain O2 saturation above 90%. WBC count is 4.46 hemoglobin 11.8 electrolyte s are normal renal profile is normal Objective - Vital Signs Vital signs: Vital Signs Temp 97.5 F L 04/19/25 13:00 Pulse 80 04/19/25 13:00 Resp 17 04/19/25 13:00 BP 98/59 04/19/25 12:00 Pulse Ox 94 L 04/19/25 13:00 FiO2 75 04/19/25 13:00 Intake & Output 04/18/25 04/19/25 04/19/25 18:59 06:59 18:59 Intake Total 720 387.418 130.842 Output Total 880 975 215 Balance -160 -587.582 -84.158 Weight 102.8 kg Intake: IV 120 120 30 kvo 120 120 30 Intake, IV Titration 267.418 100.842 Amount Dexmedetomidine/0.9% NaCl 167.418 0.842 (Pmx) 400 mcg In Empty Bag 1 bag @ 0.2 MCG/KG/HR 5.05 mls/hr IV .[id number] JUAN LUIS Rx#:[id number] Piperacillin-Tazobactam 3 100 100 .375 gm In Sodium Chloride 0.9% 100 ml @ 25 mls/hr IVPB Q8HR JUAN LUIS Rx# :[id number] Oral 600 Output: Urine 880 975 215 Other: Voiding Method Indwelling Catheter Indwelling Catheter - Exam General: Reveals 64-year-old white male, on Airvo, not in any distress Derm: No rashes. Head: atraumatic, normocephalic Eyes: EOMI, anicteric sclera Mouth: Moist mucous membranes, no evidence of lesions Cardiovascular: Normal S1 S2 reg, no murmur, rubs, or gallops Lungs: Good breath sound bilaterally no rhonchi no wheezes Abdominal: soft, a bowel sounds are present Extremities: no gross muscle atrophy, no edema, no contractures, Neuro: Alert oriented x 3 no gross focal deficit Psych: Normal mood affect and mental status examination - Labs CBC & Chem 7: 04/19/25 06:15 04/19/25 06:15 Labs: Abnormal Lab Results - Last 24 Hours (Table) 04/18/25 04/18/25 04/19/25 Range/Units 16:51 20:00 06:15 WBC 4.46 L (4.50-10.00) 10*3/uL RBC 4.00 L (4.40-5.60) 10*6/uL Hgb 11.8 L (13.0-17.0) g/dL Hct 36.9 L (39.6-50.0) % Plt Count 122 L (140-440) 10*3/uL Immature Gran # 0.09 H (0.00-0.04) 10*3/uL Sodium (137-145) mmol/L Creatinine (0.66-1.25) mg/dL Glucose (74-99) mg/dL POC Glucose (mg/dL) 141 H 256 H (70-110) mg/dL 04/19/25 04/19/25 04/19/25 Range/Units 06:15 08:57 13:12 WBC (4.50-10.00) 10*3/uL RBC (4.40-5.60) 10*6/uL Hgb (13.0-17.0) g/dL Hct (39.6-50.0) % Plt Count (140-440) 10*3/uL Immature Gran # (0.00-0.04) 10*3/uL Sodium 134 L (137-145) mmol/L Creatinine 0.35 L (0.66-1.25) mg/dL Glucose 160 H (74-99) mg/dL POC Glucose (mg/dL) 172 H 152 H (70-110) mg/dL Assessment and Plan Assessment: Impression Acute hypoxic respiratory failure, multifactorial. The patient has developed postoperative atelectasis of the left lower lobe and the patient has significant elevation in volume loss in the left lung compared to the right. Previous bronchoscopy and sputum analysis was positive for Serratia marcescens. Nasal culture is positive for MSSA and the patient completed the course of antibiotics. He has a very weak cough and poor ability to perform pulmonary toileting. The patient shows ongoing improvement in oxygenation and patient is currently on 4 L of oxygen by nasal cannula. Completed his antibiotic course. Chest x-ray from today April 17, 2025 is showing near complete whiteout of the left lung again. T8 spinal cord injury. The patient has severe spinal canal stenosis at the level of C7/T1 with motor weakness in the lower extremities in addition to myelopathy. The patient is post C7/T1 discectomy with decompression and fusion and the patient also had extension of a previous C2/7 fusion to T3. This was done back on March 21, 2025 Hypotension, being given IV fluids. Recovered and blood pressure is stable Thrombocytopenia, rule out antibiotic induced. Maintained on Lovenox for DVT prophylaxis Abdominal distention/ileus, recovered Obstructive sleep apnea maintain CPAP therapy on outpatient basis Diabetes mellitus type 2, with steroid-induced hyperglycemia Hypotension, rule out septic versus neurogenic hypotension post spine surgery Sinus tachycardia Hyperlipidemia Seroma in the posterior soft tissues along the length of the skin jarad, spinal surgeries following Bilateral lower extremity weakness, ongoing motor weakness in the lower extremities bilaterally with absent motor function at this point with bilateral foot drop. Patient's sensations in the lower limbs have improved, but now patient is completely paraplegic. T8 p spinal cord injury with motor paralysis lower extremities bilaterally with absent sensation. He does have some feelings in his lower abdomen towards the groin. History of prior cervical fusion C3-C7 History of severe L5-S1 neuroforaminal stenosis Recommendation: Chest x-ray today is showing slight improvement hence we will continue the same treatment. No need for bronchoscopy. Continue to monitor in the ICU as long as he is requiring high FiO2 and high flow via Airvo Continue present supportive care measures Continue Airvo and titrate accordingly Continue incentive spirometry Continue chest physiotherapy Continue flutter valve Continue albuterol and Mucomyst Will continue to follow Condition is marginal at best. Time with Patient: Less than 30
--- NOTE | 2025-04-19 15:26 | XR ---
EXAMINATION TYPE: XR chest 1V portable DATE OF EXAM: 04/19/2025 3:16 PM COMPARISON: 04/19/2025 CLINICAL INDICATION: Male, 65 years old with history of shortness of breath, TECHNIQUE: XR chest 1V portable view(s) obtained. FINDINGS: The heart size is normal. The pulmonary vasculature is normal. Left lower lobe infiltrate may be cysts improved from comparison. Minimal infiltrate is developing al benson the right heart border. IMPRESSION: 1. Bibasilar infiltrates. Correlate for atelectasis this may be developing on the right although impr oving on the left. [facility], , 04/19/2025 3:23 PM
[2025-04-19 17:16] LABS: Glucose,Whole Blood 216 mg/dL (70-110)
[2025-04-19 21:11] LABS: Glucose,Whole Blood 240 mg/dL (70-110)
[2025-04-20 06:31] LABS: Glucose,Whole Blood 142 mg/dL (70-110)
[2025-04-20] MEDS: INSULIN GLARGINE (LANTUS) 100 UNIT/ML SYR SQ SCH (06:33)
[2025-04-20 07:07] LABS: Basophils # (A) 0.01 10*3/uL (0.00-0.10); Basophils % (A) 0.2 %; Eosinophils # (A) 0.03 10*3/uL (0.04-0.35); Eosinophils % (A) 0.7 %; HCT 32.5 % (39.6-50.0); HGB 10.8 g/dL (13.0-17.0); Lymphocytes # (A) 1.21 10*3/uL (0.90-5.00); Lymphocytes % (A) 28.4 %; MCH 30.4 pg (27.0-32.0); MCHC 33.2 g/dL (32.0-37.0); MCV 91.5 fL (80.0-97.0); Monocytes # (A) 0.28 10*3/uL (0.20-1.00); Monocytes % (A) 6.6 %; Neutrophils # (A) 2.60 10*3/uL (1.80-7.70); Neutrophils % (A) 61.0 %; Platelet Count 140 10*3/uL (140-440); RBC 3.55 10*6/uL (4.40-5.60); RDW 14.6 % (11.5-14.5); WBC 4.26 10*3/uL (4.50-10.00)
[2025-04-20 07:25] LABS: African American GFR (CKD) >90 (>60 ml/min/1.73 sqM); Anion Gap 3 mmol/L; Blood Urea Nitrogen 14 mg/dL (9-20); Calcium 8.3 mg/dL (8.4-10.2); Carbon Dioxide 28 mmol/L (22-30); Chloride 103 mmol/L (98-107); Glucose 149 mg/dL (74-99); Non-African American GFR(CKD) >90 (>60 ml/min/1.73 sqM); Potassium 3.7 mmol/L (3.5-5.1); Sodium 134 mmol/L (137-145)
--- NOTE | 2025-04-20 08:45 | P.PN ---
Progress Note - Text Progress Note Date: 04/20/25 Orthopedic spine: History of present illness: Patient is a very pleasant 65-year-old male who is seen examined at bedside in the ICU for follow-up evaluation of the cervical spine. He is status post posterior cervical decompression discectomy at C7-T1 with extension of fusion from C7 down to T3. He has not had any change in his symptoms from an orthopedic spine standpoint as compared to yesterday. He states he continues to be able to feel his right great toe and today states he feels his other toes in the right foot foot and some sensation over his right foot but not in the youssef or calf area. He does have some increased sensation over his anterior thighs which he states again is greater on the right than the left. He continues to keep his hard cervical collar intact. He was transitioned into his new hard cervical collar. He is not experiencing any cervical pain. He continues with dressing changes as needed. He currently has no significant drainage at the bedside. His surgical site is currently dry. He has good range of motion of his bilateral upper extremities except for his shoulders bilaterally. 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 He is awake and alert. He is able to answer questions a ppropriately. Patient is in a good mood this morning. He continues have significant difficulty with this bilateral lower extremities. He has some improved numbness around his abdomen towards the groin and some increased sensation over his anterior thighs. He admits to continued sensation in his right great toe. He has no motor function in his lower extremities. His lower extremity symptoms have not improved. He currently has compression stockings and boots intact. Samuels catheter continues to be present after failing a voiding trial. He will be discharged with a catheter intact. He has had further difficulty from a pulmonary standpoint after transitioning out of the ICU to selective care. He is now back in the ICU. He did have some difficulty from a pulmonary standpoint last night without BiPAP. He has not yet been seen by pulmonology this morning. He currently appears stable at the bedside with BiPAP intact. Patient is also currently waiting for authorization through the [place] for approval for discharge to spinal cord rehabilitation facility. He continues to be seen exam by multiple medical providers including pulmonology and medicine. 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 Weakness with fur dressing supervisor bilaterally Hard cervical collar intact Reporting some sensation with palpation over the anterior thighs bilaterally, right greater than left He states he has sensation with palpation over his right great toe and other toes of the right foot and on his foot Pneumatic boots intact bilateral lower extremities Compression stockings intact bilaterally Samuels catheter intact Dressing is dry and intact with a small area of dried blood at the inferior aspect of the incision site of the posterior cervicothoracic surgical site Hard cervical collar is adjusted during physical examination No active drainage from the surgical site Assessment: Spinal cord injury with paralysis at T8 Postoperative day #30: Status post posterior cervical decompression discectomy at C7-T1 with extension of fusion from C7-T3 Bilateral lower extremity paralysis Bilateral lower extremity loss of sensation Acute hypoxic respiratory failure Left-sided atelectasis Obstructive sleep apnea syndrome on CPAP normally Type 2 diabetes Hypotension could be related to sepsis could also be neurogenic post spinal surgery Dyslipidemia Plan: We will continue with our plan as set forth previously.. 1. Patient was transferred back to the ICU due to pulmonary status. He is awake, alert, and oriented and answering questions appropriately. He continues to be closely managed from pulmonary standpoint. Currently waiting for insurance authorization from the [facility] for approval to discharge to spinal cord rehabilitation facility. 2. Patient must keep his hard cervical collar intact at all times. He was transitioned into his new hard cervical collar. Patient may continue with dressing changes as needed at the posterior cervical spine. 3. Patient continues to have flaccid paralysis in his bilateral lower extremities. He has had some increase in sensation around his abdomen towards his groin and admits to some increased sensation over his anterior thighs greater on the right than the left. He continues to have some sensation in his right great toe and does feel some increase sensation over the toes of the right foot and the top of the right foot. He continues to have paralysis.. They should continue with position change regularly to help prevent decubitus issues. 4. When medically stable clear, patient will be planning to be discharged to a spinal cord facility for rehabilitation. Patient may follow-up with Jesu Villarreal PA-C or Dr. Gideon Noyola at [facility] in 2-3 weeks following discharge
[2025-04-20 11:10] LABS: Glucose,Whole Blood 199 mg/dL (70-110)
--- NOTE | 2025-04-20 12:32 | XR ---
EXAMINATION TYPE: XR chest 1V portable DATE OF EXAM: 04/20/2025 5:57 AM COMPARISON: 04/19/2025 CLINICAL INDICATION: Male, 65 years old with history of assess lungs, previous abnormal TECHNIQUE: XR chest 1V portable view(s) obtained. FINDINGS: The heart size is normal. The pulmonary vasculature is normal. A small left pleural effusion may be present. IMPRESSION: 1. Small left pleural effusion [facility], , 04/20/2025 12:30 PM
--- NOTE | 2025-04-20 13:11 | P.PN ---
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 Wheeler) approximately 2 months ago, migraine headaches, depression. Presented to the emergency department with a chief complaint of sudden onset numbness extending from periumbilical region downwards throughout groin and bilateral lower extremities followed by weakness of bilateral lower extremities. Patient states he was moving some plants at home when he had sudden onset of numbness around his lower abdomen circling around him like a belt that quickly radiated into his groin and into bilateral lower extremities accompanied by weakness of bilateral lower extremities which resulted in his legs giving out from beneath him causing him to fall to the ground. Patient denied having any dizziness or lightheadedness, headache, neck or back pain, or experiencing any pain in his abdomen, groin, or lower extremities. He denies hitting his head during the fall and denies having any loss of consciousness. But reports due to the sudden onset numbness and weakness he was unable to stand back up and had to have his call EMS for transfer to the hospital. Upon arrival to our facility, patient underwent evaluation in the emergency department. Vital signs upon arrival show blood pressure 165/97, heart rate 88, respiratory rate 18, temp 98.8 F, and SpO2 of 97% on room air. CT lumbar spine CT abdomen and pelvis was also negative for acute intra-abdominal process completed showing no evidence for spinal fracture, no evidence for significant spinal canal stenosis revealing severe right L5-S1 neuroforaminal stenosis and moderate bilateral L4-L5 neuroforaminal stenosis, revealing a right middle lobe pulmonary nodule 8 mm, prostamegaly, colonic diverticulosis, and bilateral adrenal myolipoma's. Labs completed and reviewed. CBC unremarkable. BMP showing hyperglycemia with blood glucose of 146. Liver profile normal findings. Urinalysis positive for glucose and ketones but negative for infection. Patient was admitted under services with consultation to neurology and orthospine surgery. MRI lumbar spine was completed showing no definitive evidence of disc herniation or significant spinal canal stenosis revealing minimal disc degeneration with associated osteoarthritic changes. Patient underwent extensive cervical spinal surgery on the evening of 03/20/2025 through 03/21/2025. Subjective: No acute events overnight. Neurological exam is largely unchanged. Pending insurance authorization prior to discharge to LTAC versus snf Gen: In NAD, non-toxic HEENT: normocephalic, atraumatic, hearing acuity is intant, mucous membranes moist CVS: perfusing all extremities well, no pitting edema, Respiratory: symmetric chest expansion, no accessory muscle use, GI: soft, NTTP, ND, : no suprapubic tenderness, no CVA tenderness MSK/Derm: no rashes, cyanosis Neuro: CN II-XII intact, 0-5 lower extremity weakness bilaterally, 4+ out of 5 upper extremity motor Psych: cooperative, euthymic mood, judgment and insight is intact Assessment and Plan: #. Acute hypoxemic respiratory failure secondary to severe atelectasis and mucous plugging status post bronchoscopy x 2 #. Healthcare acquired Pneumonia secondary to Serratia and Milagros #. Leukocytosis,resolved #. Persistent atelectasis - Patient remains in the ICU, BiPAP versus Airvo dependent - Zosyn IV 3.375 g every 8 hours, for possible postobstructive pneumonia - Previously extubated on 04/02/25 Continue with steroid taper, prednisone to 30 mg daily today Continue DuoNebs 4 times daily and every 2 hours as needed Meropenem and Fluconazole course previously completed Continue with Mucomyst, DuoNebs 4 times daily, every 2 hours as needed Encourage incentive spirometry Aggressive pulmonary toileting Monitor CBC #. Cervical myelopathy secondary to severe spinal canal stenosis involving C7-T1 #. Status post extensive cervical decompression with discectomy at C7-T1 and fusion with extension of fusion from C3-C7 with new extension down to T3 #. Severe right L5-S1 neuroforaminal stenosis #. Moderate bilateral L4-L5 neuroforaminal stenosis Orthopedic surgery following status post extensive cervical decompression with dissecting at C7-T1 and fusion with extension of fusion from C3-C7 with new extension down to T3 Continue Prednisone 30 mg PO daily, will taper Completed course of IV cefazolin Continue neurochecks every 4 hours and as needed. Maintain fall precautions Continue Samuels catheter, patient is retaining Continue Unna boot bilaterally to prevent foot drop PT/OT Social work following with regards to disposition #. Type II [id number]-vmqhfimrj diabetes mellitus Hyperglycemia likely secondary to high-dose steroids being administered at this time. Improving. -Due to poor oral intake and low blood sugars, Lantus changed to 10 units daily sliding scale insulin, monitor for hypoglycemia #. Bilateral lower extremity edema Bilateral lower extremity Doppler ultrasound negative for DVT #. Hyponatremia Stable, likely in the setting of steroid use Monitor BMP #. Thrombocytopenia, stable, improving heparin-induced platelet antibody 0.213 Monitor CBC #. Hypomagnesemia, resolved #. Hypokalemia, resolved Hypotension, resolved - Continue to hold antihypertensives Chronic: #. Hypertension #. Hyperlipidemia #. Obstructive sleep apnea #. BPH #. Restless leg syndrome #. Neuropathy DVT ppx: Lovenox Code status: Full code Anticipated discharge place: Pending clinical course Anticipated discharge time: Pending clinical course Objective - Vital Signs Vital signs: Vital Signs Temp 98.3 F 04/20/25 08:00 Pulse 92 04/20/25 11:00 Resp 22 04/20/25 11:00 BP 117/71 04/20/25 11:00 Pulse Ox 92 L 04/20/25 13:01 FiO2 70 04/20/25 13:01 Intake & Output 04/19/25 04/20/25 04/20/25 18:59 06:59 18:59 Intake Total 213.367 234.399 400 Output Total 765 920 855 Balance -551.633 -685.601 -455 Weight 101.5 kg Intake: IV 110 110 60 Piperacillin-Tazobactam 3 50 .375 gm In Sodium Chloride 0.9% 100 ml @ 25 mls/hr IVPB Q8HR JUAN LUIS Rx# :[id number] kvo 60 110 60 Intake, IV Titration 103.367 124.399 100 Amount Dexmedetomidine/0.9% NaCl 3.367 124.399 (Pmx) 400 mcg In Empty Bag 1 bag @ 0.2 MCG/KG/HR 5.05 mls/hr IV .[id number] JUAN LUIS Rx#:[id number] Piperacillin-Tazobactam 3 100 100 .375 gm In Sodium Chloride 0.9% 100 ml @ 25 mls/hr IVPB Q8HR JUAN LUIS Rx# :[id number] Oral 240 Output: Urine 765 920 855 Other: Voiding Method Indwelling Catheter Indwelling Catheter Indwelling Catheter # Voids 1 - Labs CBC & Chem 7: 04/20/25 05:53 04/20/25 05:53 Labs: Abnormal Lab Results - Last 24 Hours (Table) 04/19/25 04/19/25 04/19/25 Range/Units 13:12 17:15 21:11 WBC (4.50-10.00) 10*3/uL RBC (4.40-5.60) 10*6/uL Hgb (13.0-17.0) g/dL Hct (39.6-50.0) % MPV (9.5-12.2) fL Immature Gran # (0.00-0.04) 10*3/uL Eosinophils # (0.04-0.35) 10*3/uL Sodium (137-145) mmol/L Creatinine (0.66-1.25) mg/dL Glucose (74-99) mg/dL POC Glucose (mg/dL) 152 H 216 H 240 H (70-110) mg/dL Calcium (8.4-10.2) mg/dL 04/20/25 04/20/25 04/20/25 Range/Units 05:53 05:53 06:30 WBC 4.26 L (4.50-10.00) 10*3/uL RBC 3.55 L (4.40-5.60) 10*6/uL Hgb 10.8 L (13.0-17.0) g/dL Hct 32.5 L (39.6-50.0) % MPV 9.4 L (9.5-12.2) fL Immature Gran # 0.13 H (0.00-0.04) 10*3/uL Eosinophils # 0.03 L (0.04-0.35) 10*3/uL Sodium 134 L (137-145) mmol/L Creatinine 0.28 L (0.66-1.25) mg/dL Glucose 149 H (74-99) mg/dL POC Glucose (mg/dL) 142 H (70-110) mg/dL Calcium 8.3 L (8.4-10.2) mg/dL 04/20/25 Range/Units 11:08 WBC (4.50-10.00) 10*3/uL RBC (4.40-5.60) 10*6/uL Hgb (13.0-17.0) g/dL Hct (39.6-50.0) % MPV (9.5-12.2) fL Immature Gran # (0.00-0.04) 10*3/uL Eosinophils # (0.04-0.35) 10*3/uL Sodium (137-145) mmol/L Creatinine (0.66-1.25) mg/dL Glucose (74-99) mg/dL POC Glucose (mg/dL) 199 H (70-110) mg/dL Calcium (8.4-10.2) mg/dL Microbiology - Last 24 Hours (Table) 03/26/25 15:53 Acid Fast Bacilli Smear - Preliminary Bronchoalviolar Lavage - Left Acid Fast Bacilli Culture - Preliminary
--- NOTE | 2025-04-20 14:53 | P.PN ---
Subjective Progress Note Date: 04/20/25 Principal diagnosis: Acute hypoxic respiratory failure with left lower lobe atelectasis, pneumonia, and left lung collapse/opacification. This is a 64-year-old male patient was undergone a C 7 T1 discectomy, done posteriorly with wide laminectomy and foraminotomy and partial facetectomy. The patient was experiencing cervical myelopathy with severe bilateral lower extremity weakness and T8 paresthesia. The patient has previous history of cervical spine fusion C2-C7. The patient was found to have a large herniated disc C7-T1 with severe spinal cord stenosis and based on that the patient was taken to the operating room and underwent a C7-T1 discectomy on 03/21/2025. The patient has become progressively more hypoxic. Currently he is on Airvo at 60 L and FiO2 of 90%. His current pulse ox is in order of 90 to 93%. Slightly tachycardic. Blood pressure is also soft at 89/62. Based on worsening hypoxemia, CT of the chest was done and the patient was found to have s ignificant volume loss in the left lung compared to the right. There is marked volume loss and atelectasis in addition to an area of consolidation in the left upper lobe and elevation of the left hemidiaphragm in addition to significant gastric distention. The patient has dilated air in the stomach and colon. Blood work shows a white cell count of 14, hemoglobin 12.4 and a platelet count of 175. Sodium levels at 137, bicarb is at 23, potassium level is at 4.3 with a chloride of 102. BUN 23 with a creatinine of 0.9. The patient is resting comfortably in bed. He is wearing a hard neck collar. He is reporting some mild shortness of breath even at rest. He is tolerating the Airvo. He is currently on IV Solu-Medrol 100 mg every 6 hours post neck surgery. He is also on IV fluids with l normal saline at rate of 75 cc an hour. Comorbidities include hypertension, hyperlipidemia, diabetes mellitus type 2, obstructive sleep apnea maintained on CPAP therapy on outpatient basis On today's evaluation of 03/23/25, patient is still on the BiPAP pressure of 14 over 6 cm of water and FiO2 has been weaned down to 65%. The patient's abdomen seems to be less distended. He had 2 bowel movements and the patient is also passing flatus. Fluid balance +223 cc over the past 24 hours and the patient remains on normal saline at a rate of 75 cc an hour. Neurologically, unchanged and the patient has absent motor function lower extremities bilaterally. He is on broad-spectrum antibiotics and the patient is currently on Zosyn vancomycin combination. Follow-up chest x-ray shows some interval improvement in aeration in the left lung base. Lung volumes in the left remain small and there is some ongoing atelectatic change at left lower lobe. The patient's white cell count is 11, hemoglobin 11.3 and a platelet count of 180. Electrolytes are all within normal limits. BUN is 40 with a creatinine of 1.05. The patient is able to communicate. He is alert and awake. Denies having any specific complaints. Still wearing a hard neck collar. 03/24/2025, the patient is laying flat in bed and is currently on a BiPAP at a pressure of 14/6 with an FiO2 of 75% overnight and Airvo during the day. He remains on normal saline at rate of 75 cc an hour. Chest x-ray still showing left lower lobe consolidation. Abdomen is soft. He had 3 bowel movements. He is on Lantus insulin. The patient's mentation is awake and alert. Nevertheless, he continues to have profound weakness in the lower extremity and he remains paraplegic. Remains on IV Solu-Medrol. Blood sugars are elevated and he remains on Lantus 15 units daily and NovoLog sliding scale coverage. The white cell count 11.9, hemoglobin 11.3 and a platelet count of 201. BUN 34 with a creatinine of 0.8. Sodium levels at 136. Blood sugars up to 82. He is postop day #4 following an open decompression and fusion of C7-T1 surgery was done due to a large disc herniation and spinal cord injury. He is also status post fusion and extension from prior fusion C2-7 and near extension fusion down to T3. He is unable to move his legs still. Samuels catheter still in place. Using incentive spirometer. Afebrile. 03/25/2025, the patient is being seen for a follow-up. Repeat chest x-ray was done and shows ongoing volume loss and atelectasis in the left lung base. I also performed an ultrasound of the chest and there is no sizable pleural effusion for thoracentesis. Findings are more consistent with consolidation/atelectasis. Remains on Airvo at 60 L and FiO2 of 90%. Incentive spirometer. Overnight, using BiPAP pressure of 14/6 and use of water with an FiO2 of 80%. Remains in normal [place] rate of 75 cc an hour. Fluid balance is +550 cc over the past 24 hours. No respiratory difficulties. The white cell count of 12. Hemoglobin is 10.9. Platelet count is 210. BUN is 32 with a creatinine of 0.8. Sodium levels at 138 and potassium levels of 4.2. Remains on Zosyn and vancomycin. Neurologically unchanged and the patient continues to be paraplegic. Patient was seen today on 03/26/2025, patient remains in the ICU, he is on Airvo at 90% and 60 L flow, patient is generally weak, alert and appropriate, IV fluid at 75 cc/h, continues to have weakness from the waist down. Patient had cervical spine surgery postoperative day #6. Chest x-ray showed complete opacification of the left lung consistent with mucous plugging involving the left mainstem bronchus. Hence I discussed this with the patient today, patient needs to be bronchoscope, needs to have extraction of mucous plugs. Considering the patient is marginal at best, will need to be intubated and placed on mechanical ventilation for the procedure. Based on the findings we will decide whether the patient needs to remain on mechanical ventilation after bronchoscopy or not. Most likely he will remain ventilated after the bronchoscopy. Patient has a bit of leukocytosis with WBC of 13.3 hemoglobin 11.3 electrolytes are normal renal profile is normal. Nasal screen has been positive for MSSA not MRSA. Patient was seen today on 03/27/2025, patient remains intubated and mechanically ventilated, kept him on mechanical ventilation after his bronchoscopy yesterday and suctioning of mucous plugs from the left mainstem bronchus and left lung. Left lung continues to show good inflation, minimal left lower lobe atelectasis, patient is on assist-control rate of 18 tidal volume 550 FiO2 50% and PEEP of 8 ABG today showed a pO2 of 84 pCO2 37 pH of 7.41. Patient is also on propofol at 50 mg/kg/min IV fluids at 75 cc/h on antibiotics in the form of Zosyn and vancomycin, antibiotics to be changed once we have the final culture from the BAL. I plan to wean the patient today, possibly consider placing him on BiPAP 12/6/50% assuming he tolerates weaning and he passes his weaning parameters. Patient is awake, follows instructions, although he is still on propofol. WBC count is 14.48 hemoglobin 10.8 electrolytes are normal, BUN is 29 creatinine 0.7 Patient was seen today on 03/28/2025, patient was extubated yesterday, had to be placed on BiPAP to avoid atelectasis again of the left lung and mucous plugging patient has very poor cough, cannot clear his secretions, and his chest x-ray today is beginning to show early atelectasis in the left lower lobe, questionable effusion but ultrasound did not show much fluid. I believe it is all a picture of atelectasis involving the left lower lobe and I am afraid that the patient may have reopacification of the left lung in the next 24 hours. In the meantime I will continue patient on BiPAP, will recommend chest PT, N- acetylcysteine and albuterol, Mucinex, and hopefully we can avoid another bronchoscopy. Otherwise if the patient opacifies left lung again, may have to be bronchoscope again. And if we do I will keep him longer on mechanical ventilation. Patient remains on antibiotics/broad-spectrum he is WBC count is 19.36 hemoglobin is 10.7 electrolytes are normal renal profile is normal. Seen today on 03/29/2025, patient remains in the ICU, chest x-ray is showing wo rsening and he is again having near complete opacification of the left lung. Apparently the patient is developing mucous plugging again involving the left mainstem bronchus and the cultures from his last BAL came back showing Serratia marcescens. Considering the patient's critical illness, I am transitioning Zosyn to Merrem for better coverage of Serratia. Sensitivity is still pending on the organism. But empirically Merrem would be a better choice for Serratia marcescens for the time being. Patient still on BiPAP at 14/6/60%, and considering his abnormal chest x-ray, I am recommending bronchoscopy again and this has to be again done with the patient intubated as his O2 saturation is ma rginal even on 60% BiPAP. Patient looks comfortable, he is not in distress. Continues to have leukocytosis with WC of 23.23 hemoglobin 11.2 basic metabolic profile is normal renal profile is normal continues to have cervical collar in place. Patient was seen today on 03/30/2025, remains in the ICU, intubated and mechanically ventilated, patient is on assist-control rate of 18 tidal volume 550 FiO2 50% PEEP of 10 ABG showed a pO2 of 122 pCO2 37 pH of 7.47 hence FiO2 was cut down to 40%. Remains on Merrem remains on propofol at 40 mcg/kg/min and on Versed 1 mg/h. Patient is sedated, does not seem to be in any distress, chest x-ray is showing slight worsening in the left lower lobe, but not severe enough to justify bronchoscopy again. However considering this I am not planning to extubate the patient today as if extubated he will most likely end up requiring bronchoscopy again. Patient had positive cultures for Serratia marcescens, and is now on Merrem. Labs today were reviewed patient has leukocytosis with WBC count of 19.7 hemoglobin 11.3, basic metabolic profile is normal renal profile is normal patient is on nutritional support/enteral feeding. Chest x-ray today is a bit worrisome hence no plans to wean and extubate today. Patient was seen today on 03/31/2025, remains in the ICU, intubated and mechanically ventilated. Patient is on assist-control rate of 18 tidal volume 550 FiO2 40% and PEEP of 10 ABG on 45% showed a pO2 of 86 pCO2 42 pH of 7.44. Chest x-ray is showing left lower lobe atelectasis/airspace disease involving the left lower lobe hence I was concerned about recollapsing of the left lung, bronchoscopy was performed, and the secretions noted in the left lower lobe with were very minimal. Did not require lavage, there was not enough secretions to d o lavage. Hence the patient was kept intubated mechanically ventilated, he is now on propofol at 45 mcg/kg/min is on Versed 1 mg/h and is receiving vital HP at 32 cc/h. Remains on fluconazole, remains on Merrem. Continues to have a bit of leukocytosis with WBC of 19.12 hemoglobin 11.7 electrolytes are normal, renal profile is normal. Patient was seen today on 04/01/2025, remains in the ICU, remains intubated and mechanically ventilated. Patient is sedated with propofol at 45 mcg/kg/min and Versed 1 mg/h. Patient is calm he is on assist-control mode of mechanical ventilation rate 18 tidal volume 550 FiO2 40% PEEP that ABG showed a PO2 of 91 pCO2 37 pH of 7.52 chest x-ray showed improvement in his left lower lobe atelectasis but he does have bilateral pleural effusions has I recommended a dose of Lasix 40 mg IV push x 1 was given. Considering his ABG is better considering his chest x-ray is showing improvement, I recommended a trial of weaning. However on pressure support and CPAP, his ABG was marginal with a pO2 of 61 pCO2 40 pH of 7.51, hence I felt the patient is not ready to be weaned especially with relatively low pO2 of 61. And I felt the patient should be back on sedation and back on assist-control mode of mechanical ventilation. In the meantime patient remains on nutritional support, remains in GI prophylaxis: And again he received a dose of Lasix earlier today for what seems to be bilateral pleural effusions. Continues to have leukocytosis with WBC count of 19.4 hemoglobin 11.5 electrolytes are normal, renal profile is normal blood sugar is 245 Patient was seen today on 04/02/2025, remains in the ICU, intubated and mechanically ventilated. Remains on the same ventilator settings, is on assist- control mode of mechanical ventilation, ABG today showed a pO2 of 103 pCO2 34 pH of 7.57 chest x-ray is showing improvement in his left-sided opacity much better today compared to the last few days, WBC count remains elevated at 21.02 hemoglobin is 11.7 electrolytes are normal, renal profile is normal. Blood sugar is 286. Considering the improvement noted on the chest x-ray, patient will be given another weaning trial today, and I will discontinue his sedation, placed patient on pressure support of 12 and CPAP, his PEEP is down to 6. Patient will be weaned and if tolerated we could proceed to extubation. Otherwise may keep patient mechanically ventilated again for another day. In the meantime he is receiving Merrem for his Serratia marcescens pneumonia. The patient is seen today April 16, 2025 in follow-up on the selective care unit. He is currently sitting up in bed. Awake and alert in no acute distress. He is maintaining O2 saturation in the low 90s on 4 L/min per nasal cannula. He has been afebrile. Hemodynamically stable. White count 3.8. Hemoglobin 9.8. Platelets 59,000. Sodium 135. Potassium 3.2. Bicarb 30. BUN 15. Creatinine 0.33. Glucose 111. He remains on DuoNeb inhalations. Lovenox for DVT prophylaxis. Remains on a prednisone taper. Awaiting a bed at [facility]. Insurance authorization remains an issue. The patient is seen today April 17, 2025 in follow-up on the selective care unit. He is sitting up in bed. Awake and alert. He is having increasing shortness of breath today with increasing dyspnea. Chest x-ray is again starting to show opacity in the left lung. He continues with a very weak cough. Unable to clear his own secretions. He has been working with respiratory therapy including with the incentive spirometer and flutter valve. He is now requiring 15 L high flow nasal cannula. He has been intolerant to BiPAP. Sodium 135. Potassium 3.8. Bicarb 32. BUN 16. Creatinine 0.40. Glucose 92. He remains on DuoNeb inhalations. Lovenox for DVT prophylaxis. Continued on Mucinex. Patient was seen today on 04/18/2025, patient was transferred to the ICU yes terday mostly because of worsening chest x-ray and worsening hypoxia. He is now on Airvo with 70% FiO2 at 60 L flow patient was on BiPAP last night 14/8/70%, patient is receiving incentive spirometry, flutter valve, chest physical therapy, albuterol and Mucomyst, there is slight improvement in the appearance of the left lower lobe but nonetheless 3 days atelectatic. Patient continues to have very poor cough. He is marginal at best, at this point I will hold on bronchoscopy and suctioning of secretions, hoping patient will do well with the medications and with the treatment we are offering at this point. Although I have a strong feeling that the patient may eventually require bronchoscopy if he does not clear his left lower lobe. Labs were reviewed including relatively normal CBC relatively normal electrolytes and normal renal profile. Patient was seen today on 04/19/2025, remains in the ICU, remains on Airvo at 60% FiO2 and 60 L flow patient was on BiPAP last night, continues to receive CPT, continues to receive Mucinex, and Mucomyst, patient continues to have very poor cough, surprisingly his chest x-ray today is much better today compared to the x-ray he had yesterday. Patient is unable to clear any secretions. On his alert. O2 saturation remains marginal and his FiO2 is being titrated to maintain O2 saturation above 90%. WBC count is 4.46 hemoglobin 11.8 electrolyte s are normal renal profile is normal Patient was seen today on 04/20/2025, remains in ICU, patient remains on Airvo 60 L / 70% FiO2 planning to transition to high flow nasal cannula. O2 saturations in the high 90s. Patient did not tolerate BiPAP last night, had to be discontinued. Chest x-ray is showing improvement in his left lower lobe atelectasis. Hence I will likely arrange for the patient to be transferred out of the ICU to regular medical floor today. WBC count is 4.2 hemoglobin 10.8 electrolytes are normal renal profile is normal Objective - Vital Signs Vital signs: Vital Signs Temp 97.8 F 04/20/25 12:00 Pulse 91 04/20/25 14:00 Resp 23 04/20/25 14:00 BP 142/67 04/20/25 14:00 Pulse Ox 95 04/20/25 14:00 FiO2 70 04/20/25 14:00 Intake & Output 04/19/25 04/20/25 04/20/25 18:59 06:59 18:59 Intake Total 213.367 234.399 420 Output Total 942 743 4875 Balance -551.633 -685.601 -785 Weight 101.5 kg Intake: IV 110 110 80 Piperacillin-Tazobactam 3 50 .375 gm In Sodium Chloride 0.9% 100 ml @ 25 mls/hr IVPB Q8HR JUAN LUIS Rx# :[id number] kvo 60 110 80 Intake, IV Titration 103.367 124.399 100 Amount Dexmedetomidine/0.9% NaCl 3.367 124.399 (Pmx) 400 mcg In Empty Bag 1 bag @ 0.2 MCG/KG/HR 5.05 mls/hr IV .[id number] JUAN LUIS Rx#:[id number] Piperacillin-Tazobactam 3 100 100 .375 gm In Sodium Chloride 0.9% 100 ml @ 25 mls/hr IVPB Q8HR JUAN LUIS Rx# :[id number] Oral 240 Output: Urine 091 891 1268 Other: Voiding Method Indwelling Catheter Indwelling Catheter Indwelling Catheter # Voids 1 # Bowel Movements 1 - Exam General: Reveals 64-year-old white male, on Airvo, 70% FiO2 60 L flow not in any distress Derm: No rashes. Head: atraumatic, normocephalic Eyes: EOMI, anicteric sclera Mouth: Moist mucous membranes, no evidence of lesions Cardiovascular: Normal S1 S2 reg, no murmur, rubs, or gallops Lungs: Good breath sound bilaterally no rhonchi no wheezes Abdominal: soft, a bowel sounds are present Extremities: no gross muscle atrophy, no edema, no contractures, Neuro: Alert oriented x 3 no gross focal deficit Psych: Normal mood affect and mental status examination - Labs CBC & Chem 7: 04/20/25 05:53 04/20/25 05:53 Labs: Abnormal Lab Results - Last 24 Hours (Table) 04/19/25 04/19/25 04/20/25 Range/Units 17:15 21:11 05:53 WBC 4.26 L (4.50-10.00) 10*3/uL RBC 3.55 L (4.40-5.60) 10*6/uL Hgb 10.8 L (13.0-17.0) g/dL Hct 32.5 L (39.6-50.0) % MPV 9.4 L (9.5-12.2) fL Immature Gran # 0.13 H (0.00-0.04) 10*3/uL Eosinophils # 0.03 L (0.04-0.35) 10*3/uL Sodium (137-145) mmol/L Creatinine (0.66-1.25) mg/dL Glucose (74-99) mg/dL POC Glucose (mg/dL) 216 H 240 H (70-110) mg/dL Calcium (8.4-10.2) mg/dL 04/20/25 04/20/25 04/20/25 Range/Units 05:53 06:30 11:08 WBC (4.50-10.00) 10*3/uL RBC (4.40-5.60) 10*6/uL Hgb (13.0-17.0) g/dL Hct (39.6-50.0) % MPV (9.5-12.2) fL Immature Gran # (0.00-0.04) 10*3/uL Eosinophils # (0.04-0.35) 10*3/uL Sodium 134 L (137-145) mmol/L Creatinine 0.28 L (0.66-1.25) mg/dL Glucose 149 H (74-99) mg/dL POC Glucose (mg/dL) 142 H 199 H (70-110) mg/dL Calcium 8.3 L (8.4-10.2) mg/dL Microbiology - Last 24 Hours (Table) 03/26/25 15:53 Acid Fast Bacilli Smear - Preliminary Bronchoalviolar Lavage - Left Acid Fast Bacilli Culture - Preliminary Assessment and Plan Assessment: Impression Acute hypoxic respiratory failure, multifactorial. The patient has developed postoperative atelectasis of the left lower lobe and the patient has significant elevation in volume loss in the left lung compared to the right. Previous bronchoscopy and sputum analysis was positive for Serratia marcescens. Nasal culture is positive for MSSA and the patient completed the course of antibiotics. He has a very weak cough and poor ability to perform pulmonary toileting. T8 spinal cord injury. The patient has severe spinal canal stenosis at the level of C7/T1 with motor weakness in the lower extremities in addition to myelopathy. The patient is post C7/T1 discectomy with decompression and fusion and the patient also had extension of a previous C2/7 fusion to T3. This was done back on March 21, 2025 Diabetes mellitus type 2, with steroid-induced hyperglycemia Hypotension, rule out septic versus neurogenic hypotension post spine surgery Sinus tachycardia Hyperlipidemia Seroma in the posterior soft tissues along the length of the skin jarad, spinal surgeries following Bilateral lower extremity weakness, ongoing motor weakness in the lower extremities bilaterally with absent motor function at this point with bilateral foot drop. Patient's sensations in the lower limbs have improved, but now patient is completely paraplegic. T8 p spinal cord injury with motor paralysis lower extremities bilaterally with absent sensation. He does have some feelings in his lower abdomen towards the groin. History of prior cervical fusion C3-C7 History of severe L5-S1 neuroforaminal stenosis Recommendation: No need for bronchoscopy Could transfer patient out of the ICU and continue to titrate O2 accordingly consider high flow nasal cannula Continue present supportive care measures Continue Airvo and titrate accordingly Continue incentive spirometry Continue chest physiotherapy Continue flutter valve Continue albuterol and Mucomyst Will continue to follow Overall clinical condition remains marginal at best, and prognosis is guarded Time with Patient: Less than 30
[2025-04-20 17:03] LABS: Glucose,Whole Blood 226 mg/dL (70-110)
[2025-04-20 19:34] LABS: Glucose,Whole Blood 270 mg/dL (70-110)
[2025-04-21 06:16] LABS: Basophils # (A) 0.01 10*3/uL (0.00-0.10); Basophils % (A) 0.2 %; Eosinophils # (A) 0.05 10*3/uL (0.04-0.35); Eosinophils % (A) 0.9 %; HCT 32.5 % (39.6-50.0); HGB 10.5 g/dL (13.0-17.0); Lymphocytes # (A) 1.44 10*3/uL (0.90-5.00); Lymphocytes % (A) 24.8 %; MCH 29.7 pg (27.0-32.0); MCHC 32.3 g/dL (32.0-37.0); MCV 92.1 fL (80.0-97.0); Monocytes # (A) 0.45 10*3/uL (0.20-1.00); Monocytes % (A) 7.8 %; Neutrophils # (A) 3.55 10*3/uL (1.80-7.70); Neutrophils % (A) 61.1 %; Platelet Count 206 10*3/uL (140-440); RBC 3.53 10*6/uL (4.40-5.60); RDW 14.7 % (11.5-14.5); WBC 5.80 10*3/uL (4.50-10.00)
[2025-04-21 06:18] LABS: ALT 35 U/L (4-49); AST 17 U/L (17-59); African American GFR (CKD) >90 (>60 ml/min/1.73 sqM); Albumin 2.3 g/dL (3.5-5.0); Alkaline Phosphatase 53 U/L (38-126); Anion Gap 2 mmol/L; Blood Urea Nitrogen 11 mg/dL (9-20); Calcium 8.1 mg/dL (8.4-10.2); Carbon Dioxide 33 mmol/L (22-30); Chloride 100 mmol/L (98-107); Glucose 117 mg/dL (74-99); Non-African American GFR(CKD) >90 (>60 ml/min/1.73 sqM); Potassium 3.5 mmol/L (3.5-5.1); Sodium 135 mmol/L (137-145); Total Protein 4.7 g/dL (6.3-8.2)
[2025-04-21 06:54] LABS: Glucose,Whole Blood 117 mg/dL (70-110)
[2025-04-21] MEDS: POTASSIUM CHLORIDE ER 20 MEQ TAB.ER PO SCH (06:57)
--- NOTE | 2025-04-21 07:25 | XR ---
EXAMINATION TYPE: XR chest 1V portable DATE OF EXAM: 04/21/2025 5:51 AM COMPARISON: Chest radiographs from 04/20/2025 CLINICAL INDICATION: Male, 65 years old with history of airvo; TECHNIQUE: XR chest 1V portable Frontal view of the chest. FINDINGS: Lungs/Pleura: There is no evidence of pleural effusion, focal consolidation, or pneumothorax. Pulmonary vascularity: Unremarkable. Heart/mediastinum: Cardiomediastinal silhouette is unremarkable. Musculoskeletal: No acute osseous pathology. There is fixation hardware in the lower cervical spine. Other findings: None IMPRESSION: Similar left pleural effusion. [facility], , 04/21/2025 7:22 AM
--- NOTE | 2025-04-21 09:42 | P.PN ---
Progress Note - Text Progress Note Date: 04/21/25 Patient is seen and examined at bedside. He is in the intensive care. He is breathing comfortably on his airflow nasally. He denies any new pain. He denies any changes in neurologic status. Has been afebrile overnight Neurologic status unchanged. He is moving arms similarly. He is getting some dexterity in his hands and fingers. There is no motion of his lower extremities. His Samuels is intact Assessment plan Respiratory distress. Appears to be stabilizing Paraplegia due to spinal cord injury status post cervical decompression and patient C7-T1 with massive disc herniation at subsequent discectomy and fusion from C3-T3. He is continuing his management for his respiratory status as per critical care. He will likely stay in the unit overnight 1 or 2 more nights with the appropriate oxygen delivery. Patient continues hard cervical collar. Will likely continue the hard collar full-time for at least another week as he is almost 5 weeks out from the surgery. At 6 weeks he can start to use collar when up but he is in a soft collar while in bed He should try to continue his medication with physical therapy for mobilization as able with a hard collar intact
[2025-04-21 11:27] LABS: Glucose,Whole Blood 165 mg/dL (70-110)
--- NOTE | 2025-04-21 12:50 | P.PN ---
Subjective Progress Note Date: 04/21/25 Principal diagnosis: Acute hypoxic respiratory failure with left lower lobe atelectasis, pneumonia, and left lung collapse/opacification. This is a 64-year-old male patient was undergone a C 7 T1 discectomy, done posteriorly with wide laminectomy and foraminotomy and partial facetectomy. The patient was experiencing cervical myelopathy with severe bilateral lower extremity weakness and T8 paresthesia. The patient has previous history of cervical spine fusion C2-C7. The patient was found to have a large herniated disc C7-T1 with severe spinal cord stenosis and based on that the patient was taken to the operating room and underwent a C7-T1 discectomy on 03/21/2025. The patient has become progressively more hypoxic. Currently he is on Airvo at 60 L and FiO2 of 90%. His current pulse ox is in order of 90 to 93%. Slightly tachycardic. Blood pressure is also soft at 89/62. Based on worsening hypoxemia, CT of the chest was done and the patient was found to have s ignificant volume loss in the left lung compared to the right. There is marked volume loss and atelectasis in addition to an area of consolidation in the left upper lobe and elevation of the left hemidiaphragm in addition to significant gastric distention. The patient has dilated air in the stomach and colon. Blood work shows a white cell count of 14, hemoglobin 12.4 and a platelet count of 175. Sodium levels at 137, bicarb is at 23, potassium level is at 4.3 with a chloride of 102. BUN 23 with a creatinine of 0.9. The patient is resting comfortably in bed. He is wearing a hard neck collar. He is reporting some mild shortness of breath even at rest. He is tolerating the Airvo. He is currently on IV Solu-Medrol 100 mg every 6 hours post neck surgery. He is also on IV fluids with l normal saline at rate of 75 cc an hour. Comorbidities include hypertension, hyperlipidemia, diabetes mellitus type 2, obstructive sleep apnea maintained on CPAP therapy on outpatient basis On today's evaluation of 03/23/25, patient is still on the BiPAP pressure of 14 over 6 cm of water and FiO2 has been weaned down to 65%. The patient's abdomen seems to be less distended. He had 2 bowel movements and the patient is also passing flatus. Fluid balance +223 cc over the past 24 hours and the patient remains on normal saline at a rate of 75 cc an hour. Neurologically, unchanged and the patient has absent motor function lower extremities bilaterally. He is on broad-spectrum antibiotics and the patient is currently on Zosyn vancomycin combination. Follow-up chest x-ray shows some interval improvement in aeration in the left lung base. Lung volumes in the left remain small and there is some ongoing atelectatic change at left lower lobe. The patient's white cell count is 11, hemoglobin 11.3 and a platelet count of 180. Electrolytes are all within normal limits. BUN is 40 with a creatinine of 1.05. The patient is able to communicate. He is alert and awake. Denies having any specific complaints. Still wearing a hard neck collar. 03/24/2025, the patient is laying flat in bed and is currently on a BiPAP at a pressure of 14/6 with an FiO2 of 75% overnight and Airvo during the day. He remains on normal saline at rate of 75 cc an hour. Chest x-ray still showing left lower lobe consolidation. Abdomen is soft. He had 3 bowel movements. He is on Lantus insulin. The patient's mentation is awake and alert. Nevertheless, he continues to have profound weakness in the lower extremity and he remains paraplegic. Remains on IV Solu-Medrol. Blood sugars are elevated and he remains on Lantus 15 units daily and NovoLog sliding scale coverage. The white cell count 11.9, hemoglobin 11.3 and a platelet count of 201. BUN 34 with a creatinine of 0.8. Sodium levels at 136. Blood sugars up to 82. He is postop day #4 following an open decompression and fusion of C7-T1 surgery was done due to a large disc herniation and spinal cord injury. He is also status post fusion and extension from prior fusion C2-7 and near extension fusion down to T3. He is unable to move his legs still. Samuels catheter still in place. Using incentive spirometer. Afebrile. 03/25/2025, the patient is being seen for a follow-up. Repeat chest x-ray was done and shows ongoing volume loss and atelectasis in the left lung base. I also performed an ultrasound of the chest and there is no sizable pleural effusion for thoracentesis. Findings are more consistent with consolidation/atelectasis. Remains on Airvo at 60 L and FiO2 of 90%. Incentive spirometer. Overnight, using BiPAP pressure of 14/6 and use of water with an FiO2 of 80%. Remains in normal [place] rate of 75 cc an hour. Fluid balance is +550 cc over the past 24 hours. No respiratory difficulties. The white cell count of 12. Hemoglobin is 10.9. Platelet count is 210. BUN is 32 with a creatinine of 0.8. Sodium levels at 138 and potassium levels of 4.2. Remains on Zosyn and vancomycin. Neurologically unchanged and the patient continues to be paraplegic. Patient was seen today on 03/26/2025, patient remains in the ICU, he is on Airvo at 90% and 60 L flow, patient is generally weak, alert and appropriate, IV fluid at 75 cc/h, continues to have weakness from the waist down. Patient had cervical spine surgery postoperative day #6. Chest x-ray showed complete opacification of the left lung consistent with mucous plugging involving the left mainstem bronchus. Hence I discussed this with the patient today, patient needs to be bronchoscope, needs to have extraction of mucous plugs. Considering the patient is marginal at best, will need to be intubated and placed on mechanical ventilation for the procedure. Based on the findings we will decide whether the patient needs to remain on mechanical ventilation after bronchoscopy or not. Most likely he will remain ventilated after the bronchoscopy. Patient has a bit of leukocytosis with WBC of 13.3 hemoglobin 11.3 electrolytes are normal renal profile is normal. Nasal screen has been positive for MSSA not MRSA. Patient was seen today on 03/27/2025, patient remains intubated and mechanically ventilated, kept him on mechanical ventilation after his bronchoscopy yesterday and suctioning of mucous plugs from the left mainstem bronchus and left lung. Left lung continues to show good inflation, minimal left lower lobe atelectasis, patient is on assist-control rate of 18 tidal volume 550 FiO2 50% and PEEP of 8 ABG today showed a pO2 of 84 pCO2 37 pH of 7.41. Patient is also on propofol at 50 mg/kg/min IV fluids at 75 cc/h on antibiotics in the form of Zosyn and vancomycin, antibiotics to be changed once we have the final culture from the BAL. I plan to wean the patient today, possibly consider placing him on BiPAP 12/6/50% assuming he tolerates weaning and he passes his weaning parameters. Patient is awake, follows instructions, although he is still on propofol. WBC count is 14.48 hemoglobin 10.8 electrolytes are normal, BUN is 29 creatinine 0.7 Patient was seen today on 03/28/2025, patient was extubated yesterday, had to be placed on BiPAP to avoid atelectasis again of the left lung and mucous plugging patient has very poor cough, cannot clear his secretions, and his chest x-ray today is beginning to show early atelectasis in the left lower lobe, questionable effusion but ultrasound did not show much fluid. I believe it is all a picture of atelectasis involving the left lower lobe and I am afraid that the patient may have reopacification of the left lung in the next 24 hours. In the meantime I will continue patient on BiPAP, will recommend chest PT, N- acetylcysteine and albuterol, Mucinex, and hopefully we can avoid another bronchoscopy. Otherwise if the patient opacifies left lung again, may have to be bronchoscope again. And if we do I will keep him longer on mechanical ventilation. Patient remains on antibiotics/broad-spectrum he is WBC count is 19.36 hemoglobin is 10.7 electrolytes are normal renal profile is normal. Seen today on 03/29/2025, patient remains in the ICU, chest x-ray is showing wo rsening and he is again having near complete opacification of the left lung. Apparently the patient is developing mucous plugging again involving the left mainstem bronchus and the cultures from his last BAL came back showing Serratia marcescens. Considering the patient's critical illness, I am transitioning Zosyn to Merrem for better coverage of Serratia. Sensitivity is still pending on the organism. But empirically Merrem would be a better choice for Serratia marcescens for the time being. Patient still on BiPAP at 14/6/60%, and considering his abnormal chest x-ray, I am recommending bronchoscopy again and this has to be again done with the patient intubated as his O2 saturation is ma rginal even on 60% BiPAP. Patient looks comfortable, he is not in distress. Continues to have leukocytosis with WC of 23.23 hemoglobin 11.2 basic metabolic profile is normal renal profile is normal continues to have cervical collar in place. Patient was seen today on 03/30/2025, remains in the ICU, intubated and mechanically ventilated, patient is on assist-control rate of 18 tidal volume 550 FiO2 50% PEEP of 10 ABG showed a pO2 of 122 pCO2 37 pH of 7.47 hence FiO2 was cut down to 40%. Remains on Merrem remains on propofol at 40 mcg/kg/min and on Versed 1 mg/h. Patient is sedated, does not seem to be in any distress, chest x-ray is showing slight worsening in the left lower lobe, but not severe enough to justify bronchoscopy again. However considering this I am not planning to extubate the patient today as if extubated he will most likely end up requiring bronchoscopy again. Patient had positive cultures for Serratia marcescens, and is now on Merrem. Labs today were reviewed patient has leukocytosis with WBC count of 19.7 hemoglobin 11.3, basic metabolic profile is normal renal profile is normal patient is on nutritional support/enteral feeding. Chest x-ray today is a bit worrisome hence no plans to wean and extubate today. Patient was seen today on 03/31/2025, remains in the ICU, intubated and mechanically ventilated. Patient is on assist-control rate of 18 tidal volume 550 FiO2 40% and PEEP of 10 ABG on 45% showed a pO2 of 86 pCO2 42 pH of 7.44. Chest x-ray is showing left lower lobe atelectasis/airspace disease involving the left lower lobe hence I was concerned about recollapsing of the left lung, bronchoscopy was performed, and the secretions noted in the left lower lobe with were very minimal. Did not require lavage, there was not enough secretions to d o lavage. Hence the patient was kept intubated mechanically ventilated, he is now on propofol at 45 mcg/kg/min is on Versed 1 mg/h and is receiving vital HP at 32 cc/h. Remains on fluconazole, remains on Merrem. Continues to have a bit of leukocytosis with WBC of 19.12 hemoglobin 11.7 electrolytes are normal, renal profile is normal. Patient was seen today on 04/01/2025, remains in the ICU, remains intubated and mechanically ventilated. Patient is sedated with propofol at 45 mcg/kg/min and Versed 1 mg/h. Patient is calm he is on assist-control mode of mechanical ventilation rate 18 tidal volume 550 FiO2 40% PEEP that ABG showed a PO2 of 91 pCO2 37 pH of 7.52 chest x-ray showed improvement in his left lower lobe atelectasis but he does have bilateral pleural effusions has I recommended a dose of Lasix 40 mg IV push x 1 was given. Considering his ABG is better considering his chest x-ray is showing improvement, I recommended a trial of weaning. However on pressure support and CPAP, his ABG was marginal with a pO2 of 61 pCO2 40 pH of 7.51, hence I felt the patient is not ready to be weaned especially with relatively low pO2 of 61. And I felt the patient should be back on sedation and back on assist-control mode of mechanical ventilation. In the meantime patient remains on nutritional support, remains in GI prophylaxis: And again he received a dose of Lasix earlier today for what seems to be bilateral pleural effusions. Continues to have leukocytosis with WBC count of 19.4 hemoglobin 11.5 electrolytes are normal, renal profile is normal blood sugar is 245 Patient was seen today on 04/02/2025, remains in the ICU, intubated and mechanically ventilated. Remains on the same ventilator settings, is on assist- control mode of mechanical ventilation, ABG today showed a pO2 of 103 pCO2 34 pH of 7.57 chest x-ray is showing improvement in his left-sided opacity much better today compared to the last few days, WBC count remains elevated at 21.02 hemoglobin is 11.7 electrolytes are normal, renal profile is normal. Blood sugar is 286. Considering the improvement noted on the chest x-ray, patient will be given another weaning trial today, and I will discontinue his sedation, placed patient on pressure support of 12 and CPAP, his PEEP is down to 6. Patient will be weaned and if tolerated we could proceed to extubation. Otherwise may keep patient mechanically ventilated again for another day. In the meantime he is receiving Merrem for his Serratia marcescens pneumonia. The patient is seen today April 16, 2025 in follow-up on the selective care unit. He is currently sitting up in bed. Awake and alert in no acute distress. He is maintaining O2 saturation in the low 90s on 4 L/min per nasal cannula. He has been afebrile. Hemodynamically stable. White count 3.8. Hemoglobin 9.8. Platelets 59,000. Sodium 135. Potassium 3.2. Bicarb 30. BUN 15. Creatinine 0.33. Glucose 111. He remains on DuoNeb inhalations. Lovenox for DVT prophylaxis. Remains on a prednisone taper. Awaiting a bed at [facility]. Insurance authorization remains an issue. The patient is seen today April 17, 2025 in follow-up on the selective care unit. He is sitting up in bed. Awake and alert. He is having increasing shortness of breath today with increasing dyspnea. Chest x-ray is again starting to show opacity in the left lung. He continues with a very weak cough. Unable to clear his own secretions. He has been working with respiratory therapy including with the incentive spirometer and flutter valve. He is now requiring 15 L high flow nasal cannula. He has been intolerant to BiPAP. Sodium 135. Potassium 3.8. Bicarb 32. BUN 16. Creatinine 0.40. Glucose 92. He remains on DuoNeb inhalations. Lovenox for DVT prophylaxis. Continued on Mucinex. Patient was seen today on 04/18/2025, patient was transferred to the ICU yes terday mostly because of worsening chest x-ray and worsening hypoxia. He is now on Airvo with 70% FiO2 at 60 L flow patient was on BiPAP last night 14/8/70%, patient is receiving incentive spirometry, flutter valve, chest physical therapy, albuterol and Mucomyst, there is slight improvement in the appearance of the left lower lobe but nonetheless 3 days atelectatic. Patient continues to have very poor cough. He is marginal at best, at this point I will hold on bronchoscopy and suctioning of secretions, hoping patient will do well with the medications and with the treatment we are offering at this point. Although I have a strong feeling that the patient may eventually require bronchoscopy if he does not clear his left lower lobe. Labs were reviewed including relatively normal CBC relatively normal electrolytes and normal renal profile. Patient was seen today on 04/19/2025, remains in the ICU, remains on Airvo at 60% FiO2 and 60 L flow patient was on BiPAP last night, continues to receive CPT, continues to receive Mucinex, and Mucomyst, patient continues to have very poor cough, surprisingly his chest x-ray today is much better today compared to the x-ray he had yesterday. Patient is unable to clear any secretions. On his alert. O2 saturation remains marginal and his FiO2 is being titrated to maintain O2 saturation above 90%. WBC count is 4.46 hemoglobin 11.8 electrolyte s are normal renal profile is normal Patient was seen today on 04/20/2025, remains in ICU, patient remains on Airvo 60 L / 70% FiO2 planning to transition to high flow nasal cannula. O2 saturations in the high 90s. Patient did not tolerate BiPAP last night, had to be discontinued. Chest x-ray is showing improvement in his left lower lobe atelectasis. Hence I will likely arrange for the patient to be transferred out of the ICU to regular medical floor today. WBC count is 4.2 hemoglobin 10.8 electrolytes are normal renal profile is normal Patient was seen today on 04/21/2025, remains in the ICU, remains marginal, remains on Airvo 64% and 50 L flow, remains on IV fluid at 10 cc/h, remains on chest physical therapy, Mucinex, Mucomyst, chest x-ray is showing slight improvement, continues to have some minimal left basilar atelectasis. Overall the patient is marginal at best, but he definitely does not need bronchoscopy at this point or BAL. Patient had poor tolerance to BiPAP, and was managing him mostly with Airvo, but is still requiring relatively high FiO2. WBC count is 5.8 hemoglobin 10.5 electrolytes are normal renal profile is normal Objective - Vital Signs Vital signs: Vital Signs Temp 98.3 F 04/21/25 12:00 Pulse 87 04/21/25 12:00 Resp 24 04/21/25 12:00 BP 107/58 04/21/25 12:00 Pulse Ox 93 L 04/21/25 12:00 FiO2 64 04/21/25 12:00 Intake & Output 04/20/25 04/21/25 04/21/25 18:59 06:59 18:59 Intake Total 1040 460 594 Output Total 4030 1280 300 Balance -1055 -820 294 Weight 103.3 kg Intake: IV 120 120 120 Piperacillin-Tazobactam 3 100 .375 gm In Sodium Chloride 0.9% 100 ml @ 25 mls/hr IVPB Q8HR [facility] Rx# :[id number] kvo 120 120 20 Intake, IV Titration 200 100 Amount Piperacillin-Tazobactam 3 200 100 .375 gm In Sodium Chloride 0.9% 100 ml @ 25 mls/hr IVPB Q8HR [facility] Rx# :[id number] Oral 720 240 474 Output: Urine 2095 1280 300 Other: Voiding Method Indwelling Catheter Indwelling Catheter Indwelling Catheter # Bowel Movements 1 - Exam General: Reveals 64-year-old white male, on Airvo, 64% FiO2 50 L flow Derm: No rashes. Head: atraumatic, normocephalic Eyes: EOMI, anicteric sclera Mouth: Moist mucous membranes, no evidence of lesions Cardiovascular: Normal S1 S2 reg, no murmur, rubs, or gallops Lungs: Good breath sound bilaterally no rhonchi no wheezes Abdominal: soft, a bowel sounds are present Extremities: no gross muscle atrophy, no edema, no contractures, Neuro: Alert oriented x 3 no gross focal deficit Psych: Normal mood affect and mental status examination - Labs CBC & Chem 7: 04/21/25 05:17 04/21/25 05:17 Labs: Abnormal Lab Results - Last 24 Hours (Table) 04/20/25 04/20/25 04/21/25 Range/Units 17:01 19:33 05:17 RBC 3.53 L (4.40-5.60) 10*6/uL Hgb 10.5 L (13.0-17.0) g/dL Hct 32.5 L (39.6-50.0) % MPV 9.4 L (9.5-12.2) fL Immature Gran # 0.30 H (0.00-0.04) 10*3/uL Sodium (137-145) mmol/L Carbon Dioxide (22-30) mmol/L Creatinine (0.66-1.25) mg/dL Glucose (74-99) mg/dL POC Glucose (mg/dL) 226 H 270 H (70-110) mg/dL Calcium (8.4-10.2) mg/dL Total Protein (6.3-8.2) g/dL Albumin (3.5-5.0) g/dL 04/21/25 04/21/25 04/21/25 Range/Units 05:17 06:53 11:25 RBC (4.40-5.60) 10*6/uL Hgb (13.0-17.0) g/dL Hct (39.6-50.0) % MPV (9.5-12.2) fL Immature Gran # (0.00-0.04) 10*3/uL Sodium 135 L (137-145) mmol/L Carbon Dioxide 33 H (22-30) mmol/L Creatinine 0.36 L (0.66-1.25) mg/dL Glucose 117 H (74-99) mg/dL POC Glucose (mg/dL) 117 H 165 H (70-110) mg/dL Calcium 8.1 L (8.4-10.2) mg/dL Total Protein 4.7 L (6.3-8.2) g/dL Albumin 2.3 L (3.5-5.0) g/dL Assessment and Plan Assessment: Impression Acute hypoxic respiratory failure, multifactorial. The patient has developed postoperative atelectasis of the left lower lobe and the patient has significant elevation in volume loss in the left lung compared to the right. Previous bronchoscopy and sputum analysis was positive for Serratia marcescens. Nasal culture is positive for MSSA and the patient completed the course of antibiotics. He has a very weak cough and poor ability to perform pulmonary toileting. T8 spinal cord injury. The patient has severe spinal canal stenosis at the level of C7/T1 with motor weakness in the lower extremities in addition to myelopathy. The patient is post C7/T1 discectomy with decompression and fusion and the patient also had extension of a previous C2/7 fusion to T3. This was done back on March 21, 2025 Diabetes mellitus type 2, with steroid-induced hyperglycemia Hypotension, rule out septic versus neurogenic hypotension post spine surgery Sinus tachycardia Hyperlipidemia Seroma in the posterior soft tissues along the length of the skin jarad, spinal surgeries following Bilateral lower extremity weakness, ongoing motor weakness in the lower extremities bilaterally with absent motor function at this point with bilateral foot drop. Patient's sensations in the lower limbs have improved, but now patient is completely paraplegic. T8 p spinal cord injury with motor paralysis lower extremities bilaterally with absent sensation. He does have some feelings in his lower abdomen towards the groin. History of prior cervical fusion C3-C7 History of severe L5-S1 neuroforaminal stenosis Recommendation: Continue to monitor in the ICU for today Continue present supportive care measures Continue Airvo and titrate accordingly Continue incentive spirometry Continue chest physiotherapy Continue flutter valve Continue albuterol and Mucomyst Will continue to follow prognosis is extremely poor I have a feeling that the patient may eventually require tracheostomy. Time with Patient: Less than 30
--- NOTE | 2025-04-21 12:54 | P.PN ---
Subjective Progress Note Date: 04/21/25 Hospital Course: Patient is a pleasant 64-year-old male with a past medical history of hypertension, hyperlipidemia, type II oqj-iinpxzf-ogfpshjti diabetes mellitus, involuntary limb muscle fasciculations/movements on Mirapex and last seen neurologist (Dr. Wheeler) approximately 2 months ago, migraine headaches, depression. Presented to the emergency department with a chief complaint of sudden onset numbness extending from periumbilical region downwards throughout groin and bilateral lower extremities followed by weakness of bilateral lower extremities. Patient states he was moving some plants at home when he had sudden onset of numbness around his lower abdomen circling around him like a belt that quickly radiated into his groin and into bilateral lower extremities accompanied by weakness of bilateral lower extremities which resulted in his legs giving out from beneath him causing him to fall to the ground. Patient denied having any dizziness or lightheadedness, headache, neck or back pain, or experiencing any pain in his abdomen, groin, or lower extremities. He denies hitting his head during the fall and denies having any loss of consciousness. But reports due to the sudden onset numbness and weakness he was unable to stand back up and had to have his call EMS for transfer to the hospital. Upon arrival to our facility, patient underwent evaluation in the emergency department. Vital signs upon arrival show blood pressure 165/97, heart rate 88, respiratory rate 18, temp 98.8 F, and SpO2 of 97% on room air. CT lumbar spine CT abdomen and pelvis was also negative for acute intra-abdominal process completed showing no evidence for spinal fracture, no evidence for significant spinal canal stenosis revealing severe right L5-S1 neuroforaminal stenosis and moderate bilateral L4-L5 neuroforaminal stenosis, revealing a right middle lobe pulmonary nodule 8 mm, prostamegaly, colonic diverticulosis, and bilateral adrenal myolipoma's. Labs completed and reviewed. CBC unremarkable. BMP showing hyperglycemia with blood glucose of 146. Liver profile normal findings. Urinalysis positive for glucose and ketones but negative for infection. Patient was admitted under services with consultation to neurology and orthospine surgery. MRI lumbar spine was completed showing no definitive evidence of disc herniation or significant spinal canal stenosis revealing minimal disc degeneration with associated osteoarthritic changes. Patient underwent extensive cervical spinal surgery on the evening of 03/20/2025 through 03/21/2025. Subjective: No acute events overnight. Neurological exam is largely unchanged. Pending insurance authorization prior to discharge to LTAC versus half-way Gen: In NAD, non-toxic HEENT: normocephalic, atraumatic, hearing acuity is intant, mucous membranes moist CVS: perfusing all extremities well, no pitting edema, Respiratory: symmetric chest expansion, no accessory muscle use, GI: soft, NTTP, ND, : no suprapubic tenderness, no CVA tenderness MSK/Derm: no rashes, cyanosis Neuro: CN II-XII intact, 0-5 lower extremity weakness bilaterally, 4+ out of 5 upper extremity motor Psych: cooperative, euthymic mood, judgment and insight is intact Assessment and Plan: #. Acute hypoxemic respiratory failure secondary to severe atelectasis and mucous plugging status post bronchoscopy x 2 #. Healthcare acquired Pneumonia secondary to Serratia and Milagros #. Leukocytosis,resolved #. Persistent atelectasis - Patient remains in the ICU, BiPAP versus Airvo dependent - Zosyn IV 3.375 g every 8 hours, for possible postobstructive pneumonia - Previously extubated on 04/02/25 Continue with steroid taper, prednisone to 30 mg daily today Continue DuoNebs 4 times daily and every 2 hours as needed Meropenem and Fluconazole course previously completed Continue with Mucomyst, DuoNebs 4 times daily, every 2 hours as needed Encourage incentive spirometry Aggressive pulmonary toileting Monitor CBC #. Cervical myelopathy secondary to severe spinal canal stenosis involving C7-T1 #. Status post extensive cervical decompression with discectomy at C7-T1 and fusion with extension of fusion from C3-C7 with new extension down to T3 #. Severe right L5-S1 neuroforaminal stenosis #. Moderate bilateral L4-L5 neuroforaminal stenosis Orthopedic surgery following status post extensive cervical decompression with dissecting at C7-T1 and fusion with extension of fusion from C3-C7 with new extension down to T3 Continue Prednisone 30 mg PO daily, will taper Completed course of IV cefazolin Continue neurochecks every 4 hours and as needed. Maintain fall precautions Continue Samuels catheter, patient is retaining Continue Unna boot bilaterally to prevent foot drop PT/OT Social work following with regards to disposition #. Type II god-cujswow-aobfaxdke diabetes mellitus Hyperglycemia likely secondary to high-dose steroids being administered at this time. Improving. -Due to poor oral intake and low blood sugars, Lantus changed to 10 units daily sliding scale insulin, monitor for hypoglycemia #. Bilateral lower extremity edema Bilateral lower extremity Doppler ultrasound negative for DVT #. Hyponatremia Stable, likely in the setting of steroid use Monitor BMP #. Thrombocytopenia, stable, improving heparin-induced platelet antibody 0.213 Monitor CBC #. Hypomagnesemia, resolved #. Hypokalemia, resolved Hypotension, resolved - Continue to hold antihypertensives Chronic: #. Hypertension #. Hyperlipidemia #. Obstructive sleep apnea #. BPH #. Restless leg syndrome #. Neuropathy DVT ppx: Lovenox Code status: Full code Anticipated discharge place: Pending clinical course Anticipated discharge time: Pending clinical course Objective - Vital Signs Vital signs: Vital Signs Temp 98.3 F 04/21/25 12:00 Pulse 87 04/21/25 12:00 Resp 24 04/21/25 12:00 BP 107/58 04/21/25 12:00 Pulse Ox 93 L 04/21/25 12:00 FiO2 64 04/21/25 12:00 Intake & Output 04/20/25 04/21/25 04/21/25 18:59 06:59 18:59 Intake Total 1040 460 594 Output Total 2095 1280 300 Balance -1055 -820 294 Weight 103.3 kg Intake: IV 120 120 120 Piperacillin-Tazobactam 3 100 .375 gm In Sodium Chloride 0.9% 100 ml @ 25 mls/hr IVPB Q8HR JUAN LUIS Rx# :[id number] kvo 120 120 20 Intake, IV Titration 200 100 Amount Piperacillin-Tazobactam 3 200 100 .375 gm In Sodium Chloride 0.9% 100 ml @ 25 mls/hr IVPB Q8HR JUAN LUIS Rx# :[id number] Oral 720 240 474 Output: Urine 2095 1280 300 Other: Voiding Method Indwelling Catheter Indwelling Catheter Indwelling Catheter # Bowel Movements 1 - Labs CBC & Chem 7: 04/21/25 05:17 04/21/25 05:17 Labs: Abnormal Lab Results - Last 24 Hours (Table) 04/20/25 04/20/25 04/21/25 Range/Units 17:01 19:33 05:17 RBC 3.53 L (4.40-5.60) 10*6/uL Hgb 10.5 L (13.0-17.0) g/dL Hct 32.5 L (39.6-50.0) % MPV 9.4 L (9.5-12.2) fL Immature Gran # 0.30 H (0.00-0.04) 10*3/uL Sodium (137-145) mmol/L Carbon Dioxide (22-30) mmol/L Creatinine (0.66-1.25) mg/dL Glucose (74-99) mg/dL POC Glucose (mg/dL) 226 H 270 H (70-110) mg/dL Calcium (8.4-10.2) mg/dL Total Protein (6.3-8.2) g/dL Albumin (3.5-5.0) g/dL 04/21/25 04/21/25 04/21/25 Range/Units 05:17 06:53 11:25 RBC (4.40-5.60) 10*6/uL Hgb (13.0-17.0) g/dL Hct (39.6-50.0) % MPV (9.5-12.2) fL Immature Gran # (0.00-0.04) 10*3/uL Sodium 135 L (137-145) mmol/L Carbon Dioxide 33 H (22-30) mmol/L Creatinine 0.36 L (0.66-1.25) mg/dL Glucose 117 H (74-99) mg/dL POC Glucose (mg/dL) 117 H 165 H (70-110) mg/dL Calcium 8.1 L (8.4-10.2) mg/dL Total Protein 4.7 L (6.3-8.2) g/dL Albumin 2.3 L (3.5-5.0) g/dL
[2025-04-21 16:22] LABS: Glucose,Whole Blood 241 mg/dL (70-110)
[2025-04-21 19:54] LABS: Glucose,Whole Blood 263 mg/dL (70-110)
[2025-04-22 06:26] LABS: Glucose,Whole Blood 182 mg/dL (70-110)
[2025-04-22 06:30] LABS: Basophils # (A) 0.01 10*3/uL (0.00-0.10); Basophils % (A) 0.2 %; Eosinophils # (A) 0.06 10*3/uL (0.04-0.35); Eosinophils % (A) 1.0 %; HCT 33.4 % (39.6-50.0); HGB 10.9 g/dL (13.0-17.0); Lymphocytes # (A) 1.19 10*3/uL (0.90-5.00); Lymphocytes % (A) 19.4 %; MCH 29.9 pg (27.0-32.0); MCHC 32.6 g/dL (32.0-37.0); MCV 91.8 fL (80.0-97.0); Monocytes # (A) 0.50 10*3/uL (0.20-1.00); Monocytes % (A) 8.2 %; Neutrophils # (A) 4.02 10*3/uL (1.80-7.70); Neutrophils % (A) 65.5 %; Platelet Count 199 10*3/uL (140-440); RBC 3.64 10*6/uL (4.40-5.60); RDW 14.5 % (11.5-14.5); WBC 6.13 10*3/uL (4.50-10.00)
[2025-04-22 06:39] LABS: African American GFR (CKD) >90 (>60 ml/min/1.73 sqM); Anion Gap 6 mmol/L; Blood Urea Nitrogen 16 mg/dL (9-20); Calcium 8.9 mg/dL (8.4-10.2); Carbon Dioxide 26 mmol/L (22-30); Chloride 101 mmol/L (98-107); Glucose 184 mg/dL (74-99); Non-African American GFR(CKD) >90 (>60 ml/min/1.73 sqM); Sodium 133 mmol/L (137-145)
[2025-04-22 06:41] LABS: Potassium 3.9 mmol/L (3.5-5.1)
[2025-04-22] MEDS: POTASSIUM CHLORIDE ER 20 MEQ TAB.ER PO SCH (07:02)
--- NOTE | 2025-04-22 07:30 | XR ---
EXAMINATION TYPE: XR chest 1V portable DATE OF EXAM: 04/22/2025 5:01 AM COMPARISON: Chest radiograph from one day prior. CLINICAL INDICATION: Male, 65 years old with history of increased o2 demand; shortness of breath TECHNIQUE: XR chest 1V portable Frontal view of the chest. FINDINGS: Lungs/Pleura: There is no evidence of pleural effusion, focal consolidation, or pneumothorax. Pulmonary vascularity: Unremarkable. Heart/mediastinum: Cardiomediastinal silhouette is unremarkable. Musculoskeletal: No acute osseous pathology. There is fixation hardware in the lower cervical spine. Other findings: None IMPRESSION: Similar left pleural effusion. [facility], , 04/22/2025 7:28 AM
[2025-04-22 11:47] LABS: Glucose,Whole Blood 222 mg/dL (70-110)
--- NOTE | 2025-04-22 13:35 | P.PN ---
Subjective Progress Note Date: 04/22/25 Principal diagnosis: Acute hypoxic respiratory failure with left lower lobe atelectasis, pneumonia, and left lung collapse/opacification. This is a 64-year-old male patient was undergone a C 7 T1 discectomy, done posteriorly with wide laminectomy and foraminotomy and partial facetectomy. The patient was experiencing cervical myelopathy with severe bilateral lower extremity weakness and T8 paresthesia. The patient has previous history of cervical spine fusion C2-C7. The patient was found to have a large herniated disc C7-T1 with severe spinal cord stenosis and based on that the patient was taken to the operating room and underwent a C7-T1 discectomy on 03/21/2025. The patient has become progressively more hypoxic. Currently he is on Airvo at 60 L and FiO2 of 90%. His current pulse ox is in order of 90 to 93%. Slightly tachycardic. Blood pressure is also soft at 89/62. Based on worsening hypoxemia, CT of the chest was done and the patient was found to have s ignificant volume loss in the left lung compared to the right. There is marked volume loss and atelectasis in addition to an area of consolidation in the left upper lobe and elevation of the left hemidiaphragm in addition to significant gastric distention. The patient has dilated air in the stomach and colon. Blood work shows a white cell count of 14, hemoglobin 12.4 and a platelet count of 175. Sodium levels at 137, bicarb is at 23, potassium level is at 4.3 with a chloride of 102. BUN 23 with a creatinine of 0.9. The patient is resting comfortably in bed. He is wearing a hard neck collar. He is reporting some mild shortness of breath even at rest. He is tolerating the Airvo. He is currently on IV Solu-Medrol 100 mg every 6 hours post neck surgery. He is also on IV fluids with l normal saline at rate of 75 cc an hour. Comorbidities include hypertension, hyperlipidemia, diabetes mellitus type 2, obstructive sleep apnea maintained on CPAP therapy on outpatient basis On today's evaluation of 03/23/25, patient is still on the BiPAP pressure of 14 over 6 cm of water and FiO2 has been weaned down to 65%. The patient's abdomen seems to be less distended. He had 2 bowel movements and the patient is also passing flatus. Fluid balance +223 cc over the past 24 hours and the patient remains on normal saline at a rate of 75 cc an hour. Neurologically, unchanged and the patient has absent motor function lower extremities bilaterally. He is on broad-spectrum antibiotics and the patient is currently on Zosyn vancomycin combination. Follow-up chest x-ray shows some interval improvement in aeration in the left lung base. Lung volumes in the left remain small and there is some ongoing atelectatic change at left lower lobe. The patient's white cell count is 11, hemoglobin 11.3 and a platelet count of 180. Electrolytes are all within normal limits. BUN is 40 with a creatinine of 1.05. The patient is able to communicate. He is alert and awake. Denies having any specific complaints. Still wearing a hard neck collar. 03/24/2025, the patient is laying flat in bed and is currently on a BiPAP at a pressure of 14/6 with an FiO2 of 75% overnight and Airvo during the day. He remains on normal saline at rate of 75 cc an hour. Chest x-ray still showing left lower lobe consolidation. Abdomen is soft. He had 3 bowel movements. He is on Lantus insulin. The patient's mentation is awake and alert. Nevertheless, he continues to have profound weakness in the lower extremity and he remains paraplegic. Remains on IV Solu-Medrol. Blood sugars are elevated and he remains on Lantus 15 units daily and NovoLog sliding scale coverage. The white cell count 11.9, hemoglobin 11.3 and a platelet count of 201. BUN 34 with a creatinine of 0.8. Sodium levels at 136. Blood sugars up to 82. He is postop day #4 following an open decompression and fusion of C7-T1 surgery was done due to a large disc herniation and spinal cord injury. He is also status post fusion and extension from prior fusion C2-7 and near extension fusion down to T3. He is unable to move his legs still. Samuels catheter still in place. Using incentive spirometer. Afebrile. 03/25/2025, the patient is being seen for a follow-up. Repeat chest x-ray was done and shows ongoing volume loss and atelectasis in the left lung base. I also performed an ultrasound of the chest and there is no sizable pleural effusion for thoracentesis. Findings are more consistent with consolidation/atelectasis. Remains on Airvo at 60 L and FiO2 of 90%. Incentive spirometer. Overnight, using BiPAP pressure of 14/6 and use of water with an FiO2 of 80%. Remains in normal [place] rate of 75 cc an hour. Fluid balance is +550 cc over the past 24 hours. No respiratory difficulties. The white cell count of 12. Hemoglobin is 10.9. Platelet count is 210. BUN is 32 with a creatinine of 0.8. Sodium levels at 138 and potassium levels of 4.2. Remains on Zosyn and vancomycin. Neurologically unchanged and the patient continues to be paraplegic. Patient was seen today on 03/26/2025, patient remains in the ICU, he is on Airvo at 90% and 60 L flow, patient is generally weak, alert and appropriate, IV fluid at 75 cc/h, continues to have weakness from the waist down. Patient had cervical spine surgery postoperative day #6. Chest x-ray showed complete opacification of the left lung consistent with mucous plugging involving the left mainstem bronchus. Hence I discussed this with the patient today, patient needs to be bronchoscope, needs to have extraction of mucous plugs. Considering the patient is marginal at best, will need to be intubated and placed on mechanical ventilation for the procedure. Based on the findings we will decide whether the patient needs to remain on mechanical ventilation after bronchoscopy or not. Most likely he will remain ventilated after the bronchoscopy. Patient has a bit of leukocytosis with WBC of 13.3 hemoglobin 11.3 electrolytes are normal renal profile is normal. Nasal screen has been positive for MSSA not MRSA. Patient was seen today on 03/27/2025, patient remains intubated and mechanically ventilated, kept him on mechanical ventilation after his bronchoscopy yesterday and suctioning of mucous plugs from the left mainstem bronchus and left lung. Left lung continues to show good inflation, minimal left lower lobe atelectasis, patient is on assist-control rate of 18 tidal volume 550 FiO2 50% and PEEP of 8 ABG today showed a pO2 of 84 pCO2 37 pH of 7.41. Patient is also on propofol at 50 mg/kg/min IV fluids at 75 cc/h on antibiotics in the form of Zosyn and vancomycin, antibiotics to be changed once we have the final culture from the BAL. I plan to wean the patient today, possibly consider placing him on BiPAP 12/6/50% assuming he tolerates weaning and he passes his weaning parameters. Patient is awake, follows instructions, although he is still on propofol. WBC count is 14.48 hemoglobin 10.8 electrolytes are normal, BUN is 29 creatinine 0.7 Patient was seen today on 03/28/2025, patient was extubated yesterday, had to be placed on BiPAP to avoid atelectasis again of the left lung and mucous plugging patient has very poor cough, cannot clear his secretions, and his chest x-ray today is beginning to show early atelectasis in the left lower lobe, questionable effusion but ultrasound did not show much fluid. I believe it is all a picture of atelectasis involving the left lower lobe and I am afraid that the patient may have reopacification of the left lung in the next 24 hours. In the meantime I will continue patient on BiPAP, will recommend chest PT, N- acetylcysteine and albuterol, Mucinex, and hopefully we can avoid another bronchoscopy. Otherwise if the patient opacifies left lung again, may have to be bronchoscope again. And if we do I will keep him longer on mechanical ventilation. Patient remains on antibiotics/broad-spectrum he is WBC count is 19.36 hemoglobin is 10.7 electrolytes are normal renal profile is normal. Seen today on 03/29/2025, patient remains in the ICU, chest x-ray is showing wo rsening and he is again having near complete opacification of the left lung. Apparently the patient is developing mucous plugging again involving the left mainstem bronchus and the cultures from his last BAL came back showing Serratia marcescens. Considering the patient's critical illness, I am transitioning Zosyn to Merrem for better coverage of Serratia. Sensitivity is still pending on the organism. But empirically Merrem would be a better choice for Serratia marcescens for the time being. Patient still on BiPAP at 14/6/60%, and considering his abnormal chest x-ray, I am recommending bronchoscopy again and this has to be again done with the patient intubated as his O2 saturation is ma rginal even on 60% BiPAP. Patient looks comfortable, he is not in distress. Continues to have leukocytosis with WC of 23.23 hemoglobin 11.2 basic metabolic profile is normal renal profile is normal continues to have cervical collar in place. Patient was seen today on 03/30/2025, remains in the ICU, intubated and mechanically ventilated, patient is on assist-control rate of 18 tidal volume 550 FiO2 50% PEEP of 10 ABG showed a pO2 of 122 pCO2 37 pH of 7.47 hence FiO2 was cut down to 40%. Remains on Merrem remains on propofol at 40 mcg/kg/min and on Versed 1 mg/h. Patient is sedated, does not seem to be in any distress, chest x-ray is showing slight worsening in the left lower lobe, but not severe enough to justify bronchoscopy again. However considering this I am not planning to extubate the patient today as if extubated he will most likely end up requiring bronchoscopy again. Patient had positive cultures for Serratia marcescens, and is now on Merrem. Labs today were reviewed patient has leukocytosis with WBC count of 19.7 hemoglobin 11.3, basic metabolic profile is normal renal profile is normal patient is on nutritional support/enteral feeding. Chest x-ray today is a bit worrisome hence no plans to wean and extubate today. Patient was seen today on 03/31/2025, remains in the ICU, intubated and mechanically ventilated. Patient is on assist-control rate of 18 tidal volume 550 FiO2 40% and PEEP of 10 ABG on 45% showed a pO2 of 86 pCO2 42 pH of 7.44. Chest x-ray is showing left lower lobe atelectasis/airspace disease involving the left lower lobe hence I was concerned about recollapsing of the left lung, bronchoscopy was performed, and the secretions noted in the left lower lobe with were very minimal. Did not require lavage, there was not enough secretions to d o lavage. Hence the patient was kept intubated mechanically ventilated, he is now on propofol at 45 mcg/kg/min is on Versed 1 mg/h and is receiving vital HP at 32 cc/h. Remains on fluconazole, remains on Merrem. Continues to have a bit of leukocytosis with WBC of 19.12 hemoglobin 11.7 electrolytes are normal, renal profile is normal. Patient was seen today on 04/01/2025, remains in the ICU, remains intubated and mechanically ventilated. Patient is sedated with propofol at 45 mcg/kg/min and Versed 1 mg/h. Patient is calm he is on assist-control mode of mechanical ventilation rate 18 tidal volume 550 FiO2 40% PEEP that ABG showed a PO2 of 91 pCO2 37 pH of 7.52 chest x-ray showed improvement in his left lower lobe atelectasis but he does have bilateral pleural effusions has I recommended a dose of Lasix 40 mg IV push x 1 was given. Considering his ABG is better considering his chest x-ray is showing improvement, I recommended a trial of weaning. However on pressure support and CPAP, his ABG was marginal with a pO2 of 61 pCO2 40 pH of 7.51, hence I felt the patient is not ready to be weaned especially with relatively low pO2 of 61. And I felt the patient should be back on sedation and back on assist-control mode of mechanical ventilation. In the meantime patient remains on nutritional support, remains in GI prophylaxis: And again he received a dose of Lasix earlier today for what seems to be bilateral pleural effusions. Continues to have leukocytosis with WBC count of 19.4 hemoglobin 11.5 electrolytes are normal, renal profile is normal blood sugar is 245 Patient was seen today on 04/02/2025, remains in the ICU, intubated and mechanically ventilated. Remains on the same ventilator settings, is on assist- control mode of mechanical ventilation, ABG today showed a pO2 of 103 pCO2 34 pH of 7.57 chest x-ray is showing improvement in his left-sided opacity much better today compared to the last few days, WBC count remains elevated at 21.02 hemoglobin is 11.7 electrolytes are normal, renal profile is normal. Blood sugar is 286. Considering the improvement noted on the chest x-ray, patient will be given another weaning trial today, and I will discontinue his sedation, placed patient on pressure support of 12 and CPAP, his PEEP is down to 6. Patient will be weaned and if tolerated we could proceed to extubation. Otherwise may keep patient mechanically ventilated again for another day. In the meantime he is receiving Merrem for his Serratia marcescens pneumonia. The patient is seen today April 16, 2025 in follow-up on the selective care unit. He is currently sitting up in bed. Awake and alert in no acute distress. He is maintaining O2 saturation in the low 90s on 4 L/min per nasal cannula. He has been afebrile. Hemodynamically stable. White count 3.8. Hemoglobin 9.8. Platelets 59,000. Sodium 135. Potassium 3.2. Bicarb 30. BUN 15. Creatinine 0.33. Glucose 111. He remains on DuoNeb inhalations. Lovenox for DVT prophylaxis. Remains on a prednisone taper. Awaiting a bed at [facility]. Insurance authorization remains an issue. The patient is seen today April 17, 2025 in follow-up on the selective care unit. He is sitting up in bed. Awake and alert. He is having increasing shortness of breath today with increasing dyspnea. Chest x-ray is again starting to show opacity in the left lung. He continues with a very weak cough. Unable to clear his own secretions. He has been working with respiratory therapy including with the incentive spirometer and flutter valve. He is now requiring 15 L high flow nasal cannula. He has been intolerant to BiPAP. Sodium 135. Potassium 3.8. Bicarb 32. BUN 16. Creatinine 0.40. Glucose 92. He remains on DuoNeb inhalations. Lovenox for DVT prophylaxis. Continued on Mucinex. Patient was seen today on 04/18/2025, patient was transferred to the ICU yes terday mostly because of worsening chest x-ray and worsening hypoxia. He is now on Airvo with 70% FiO2 at 60 L flow patient was on BiPAP last night 14/8/70%, patient is receiving incentive spirometry, flutter valve, chest physical therapy, albuterol and Mucomyst, there is slight improvement in the appearance of the left lower lobe but nonetheless 3 days atelectatic. Patient continues to have very poor cough. He is marginal at best, at this point I will hold on bronchoscopy and suctioning of secretions, hoping patient will do well with the medications and with the treatment we are offering at this point. Although I have a strong feeling that the patient may eventually require bronchoscopy if he does not clear his left lower lobe. Labs were reviewed including relatively normal CBC relatively normal electrolytes and normal renal profile. Patient was seen today on 04/19/2025, remains in the ICU, remains on Airvo at 60% FiO2 and 60 L flow patient was on BiPAP last night, continues to receive CPT, continues to receive Mucinex, and Mucomyst, patient continues to have very poor cough, surprisingly his chest x-ray today is much better today compared to the x-ray he had yesterday. Patient is unable to clear any secretions. On his alert. O2 saturation remains marginal and his FiO2 is being titrated to maintain O2 saturation above 90%. WBC count is 4.46 hemoglobin 11.8 electrolyte s are normal renal profile is normal Patient was seen today on 04/20/2025, remains in ICU, patient remains on Airvo 60 L / 70% FiO2 planning to transition to high flow nasal cannula. O2 saturations in the high 90s. Patient did not tolerate BiPAP last night, had to be discontinued. Chest x-ray is showing improvement in his left lower lobe atelectasis. Hence I will likely arrange for the patient to be transferred out of the ICU to regular medical floor today. WBC count is 4.2 hemoglobin 10.8 electrolytes are normal renal profile is normal Patient was seen today on 04/21/2025, remains in the ICU, remains marginal, remains on Airvo 64% and 50 L flow, remains on IV fluid at 10 cc/h, remains on chest physical therapy, Mucinex, Mucomyst, chest x-ray is showing slight improvement, continues to have some minimal left basilar atelectasis. Overall the patient is marginal at best, but he definitely does not need bronchoscopy at this point or BAL. Patient had poor tolerance to BiPAP, and was managing him mostly with Airvo, but is still requiring relatively high FiO2. WBC count is 5.8 hemoglobin 10.5 electrolytes are normal renal profile is normal Patient was seen today in the ICU 08/22/2025, remains on Airvo 80% / 60 L flow, patient had to be placed on BiPAP last night, and he had Precedex on board at 0.2 mcg/kg/h for him to be able to use the BiPAP. Today we will titrate his FiO2 down, his O2 sat is in the high 90s. Patient is doing well, comfortable, chest x-ray showed minimal left lower lobe atelectasis. WBC count is 6.1 hemoglobin 10.9 electrolytes are normal renal profile is normal Objective - Vital Signs Vital signs: Vital Signs Temp 97.8 F 04/22/25 08:00 Pulse 58 L 04/22/25 12:09 Resp 26 H 04/22/25 10:00 BP 97/58 04/22/25 10:00 Pulse Ox 93 L 04/22/25 12:03 FiO2 72 04/22/25 12:03 Intake & Output 04/21/25 04/22/25 04/22/25 18:59 06:59 18:59 Intake Total 1036.813 314.182 50 Output Total 875 620 60 Balance 161.813 -305.818 -10 Weight 98.8 kg Intake: IV 280 120 50 Piperacillin-Tazobactam 3 200 .375 gm In Sodium Chloride 0.9% 100 ml @ 25 mls/hr IVPB Q8HR [facility] Rx# :[id number] Piperacillin-Tazobactam 3 50 .375 gm In Sodium Chloride 0.9% 100 ml @ 25 mls/hr IVPB Q8HR [facility] Rx# :[id number] kvo 80 120 Intake, IV Titration 35.813 194.182 Amount Dexmedetomidine/0.9% NaCl 35.813 94.182 (Pmx) 400 mcg In Empty Bag 1 bag @ 0.2 MCG/KG/HR 5.05 mls/hr IV .[id number] [facility] Rx#:[id number] Piperacillin-Tazobactam 3 100 .375 gm In Sodium Chloride 0.9% 100 ml @ 25 mls/hr IVPB Q8HR [facility] Rx# :[id number] Oral 721 Output: Urine 875 620 60 Other: Voiding Method Indwelling Catheter Indwelling Catheter Indwelling Catheter - Exam General: Reveals 64-year-old white male, on Airvo, 80% and 60 L flow also on Precedex 0.2 mg/kg/h Derm: No rashes. Head: atraumatic, normocephalic Eyes: EOMI, anicteric sclera Mouth: Moist mucous membranes, no evidence of lesions Cardiovascular: Normal S1 S2 reg, no murmur, rubs, or gallops Lungs: Good breath sound bilaterally no rhonchi no wheezes Abdominal: soft, a bowel sounds are present Extremities: no gross muscle atrophy, no edema, no contractures, Neuro: Alert oriented x 3 no gross focal deficit Psych: Normal mood affect and mental status examination - Labs CBC & Chem 7: 04/22/25 05:22 04/22/25 05:22 Labs: Abnormal Lab Results - Last 24 Hours (Table) 04/21/25 04/21/25 04/22/25 Range/Units 16:20 19:52 05:22 RBC 3.64 L (4.40-5.60) 10*6/uL Hgb 10.9 L (13.0-17.0) g/dL Hct 33.4 L (39.6-50.0) % Immature Gran # 0.35 H (0.00-0.04) 10*3/uL Sodium (137-145) mmol/L Creatinine (0.66-1.25) mg/dL Glucose (74-99) mg/dL POC Glucose (mg/dL) 241 H 263 H (70-110) mg/dL 04/22/25 04/22/25 04/22/25 Range/Units 05:22 06: 11:46 RBC (4.40-5.60) 10*6/uL Hgb (13.0-17.0) g/dL Hct (39.6-50.0) % Immature Gran # (0.00-0.04) 10*3/uL Sodium 133 L (137-145) mmol/L Creatinine 0.30 L (0.66-1.25) mg/dL Glucose 184 H (74-99) mg/dL POC Glucose (mg/dL) 182 H 222 H (70-110) mg/dL Assessment and Plan Assessment: Impression Acute hypoxic respiratory failure, multifactorial. The patient has developed postoperative atelectasis of the left lower lobe and the patient has significant elevation in volume loss in the left lung compared to the right. Previous bronchoscopy and sputum analysis was positive for Serratia marcescens. Nasal culture is positive for MSSA and the patient completed the course of antibiotics. He has a very weak cough and poor ability to perform pulmonary toileting. T8 spinal cord injury. The patient has severe spinal canal stenosis at the level of C7/T1 with motor weakness in the lower extremities in addition to myelopathy. The patient is post C7/T1 discectomy with decompression and fusion and the patient also had extension of a previous C2/7 fusion to T3. This was done back on March 21, 2025 Diabetes mellitus type 2, with steroid-induced hyperglycemia Hypotension, rule out septic versus neurogenic hypotension post spine surgery Sinus tachycardia Hyperlipidemia Seroma in the posterior soft tissues along the length of the skin jarad, spinal surgeries following Bilateral lower extremity weakness, ongoing motor weakness in the lower extremities bilaterally with absent motor function at this point with bilateral foot drop. Patient's sensations in the lower limbs have improved, but now patient is completely paraplegic. T8 p spinal cord injury with motor paralysis lower extremities bilaterally with absent sensation. He does have some feelings in his lower abdomen towards the groin. History of prior cervical fusion C3-C7 History of severe L5-S1 neuroforaminal stenosis Recommendation: Continue to monitor in the ICU Continue Airvo and titrate FiO2 and flow Continue present supportive care measures Continue incentive spirometry Continue chest physiotherapy Continue flutter valve Continue albuterol and Mucomyst Prognosis remains relatively poor and guarded.\ Will continue to follow Time with Patient: Less than 30
--- NOTE | 2025-04-22 14:25 | P.PN ---
Subjective Progress Note Date: 04/22/25 Hospital Course: Patient is a pleasant 64-year-old male with a past medical history of hypertension, hyperlipidemia, type II wnp-ltoeije-nbpmvqiuh diabetes mellitus, involuntary limb muscle fasciculations/movements on Mirapex and last seen neurologist (Dr. Wheeler) approximately 2 months ago, migraine headaches, depression. Presented to the emergency department with a chief complaint of sudden onset numbness extending from periumbilical region downwards throughout groin and bilateral lower extremities followed by weakness of bilateral lower extremities. Patient states he was moving some plants at home when he had sudden onset of numbness around his lower abdomen circling around him like a belt that quickly radiated into his groin and into bilateral lower extremities accompanied by weakness of bilateral lower extremities which resulted in his legs giving out from beneath him causing him to fall to the ground. Patient denied having any dizziness or lightheadedness, headache, neck or back pain, or experiencing any pain in his abdomen, groin, or lower extremities. He denies hitting his head during the fall and denies having any loss of consciousness. But reports due to the sudden onset numbness and weakness he was unable to stand back up and had to have his call EMS for transfer to the hospital. Upon arrival to our facility, patient underwent evaluation in the emergency department. Vital signs upon arrival show blood pressure 165/97, heart rate 88, respiratory rate 18, temp 98.8 F, and SpO2 of 97% on room air. CT lumbar spine CT abdomen and pelvis was also negative for acute intra-abdominal process completed showing no evidence for spinal fracture, no evidence for significant spinal canal stenosis revealing severe right L5-S1 neuroforaminal stenosis and moderate bilateral L4-L5 neuroforaminal stenosis, revealing a right middle lobe pulmonary nodule 8 mm, prostamegaly, colonic diverticulosis, and bilateral adrenal myolipoma's. Labs completed and reviewed. CBC unremarkable. BMP showing hyperglycemia with blood glucose of 146. Liver profile normal findings. Urinalysis positive for glucose and ketones but negative for infection. Patient was admitted under services with consultation to neurology and orthospine surgery. MRI lumbar spine was completed showing no definitive evidence of disc herniation or significant spinal canal stenosis revealing minimal disc degeneration with associated osteoarthritic changes. Patient underwent extensive cervical spinal surgery on the evening of 03/20/2025 through 03/21/2025. Subjective: No acute events overnight. Neurological exam is largely unchanged. Pending insurance authorization prior to discharge to LTAC versus [facility]ci Gen: In NAD, non-toxic HEENT: normocephalic, atraumatic, hearing acuity is intant, mucous membranes moist CVS: perfusing all extremities well, no pitting edema, Respiratory: symmetric chest expansion, no accessory muscle use, GI: soft, NTTP, ND, : no suprapubic tenderness, no CVA tenderness MSK/Derm: no rashes, cyanosis Neuro: CN II-XII intact, 0-5 lower extremity weakness bilaterally, 4+ out of 5 upper extremity motor Psych: cooperative, euthymic mood, judgment and insight is intact Assessment and Plan: #. Acute hypoxemic respiratory failure secondary to severe atelectasis and mucous plugging status post bronchoscopy x 2 #. Healthcare acquired Pneumonia secondary to Serratia and Milagros #. Leukocytosis,resolved #. Persistent atelectasis - Patient remains in the ICU, BiPAP versus Airvo dependent - Zosyn IV 3.375 g every 8 hours, for possible postobstructive pneumonia - Previously extubated on 04/02/25 Continue with steroid taper, prednisone to 30 mg daily today Continue DuoNebs 4 times daily and every 2 hours as needed Meropenem and Fluconazole course previously completed Continue with Mucomyst, DuoNebs 4 times daily, every 2 hours as needed Encourage incentive spirometry Aggressive pulmonary toileting Monitor CBC #. Cervical myelopathy secondary to severe spinal canal stenosis involving C7-T1 #. Status post extensive cervical decompression with discectomy at C7-T1 and fusion with extension of fusion from C3-C7 with new extension down to T3 #. Severe right L5-S1 neuroforaminal stenosis #. Moderate bilateral L4-L5 neuroforaminal stenosis Orthopedic surgery following status post extensive cervical decompression with dissecting at C7-T1 and fusion with extension of fusion from C3-C7 with new extension down to T3 Continue Prednisone 30 mg PO daily, will taper Completed course of IV cefazolin Continue neurochecks every 4 hours and as needed. Maintain fall precautions Continue Samuels catheter, patient is retaining Continue Unna boot bilaterally to prevent foot drop PT/OT Social work following with regards to disposition #. Type II pzw-tvdvnue-tnhjmkbgx diabetes mellitus Hyperglycemia likely secondary to high-dose steroids being administered at this time. Improving. -Due to poor oral intake and low blood sugars, Lantus changed to 10 units daily sliding scale insulin, monitor for hypoglycemia #. Bilateral lower extremity edema Bilateral lower extremity Doppler ultrasound negative for DVT #. Hyponatremia Stable, likely in the setting of steroid use Monitor BMP #. Thrombocytopenia, stable, improving heparin-induced platelet antibody 0.213 Monitor CBC #. Hypomagnesemia, resolved #. Hypokalemia, resolved Hypotension, resolved - Continue to hold antihypertensives Chronic: #. Hypertension #. Hyperlipidemia #. Obstructive sleep apnea #. BPH #. Restless leg syndrome #. Neuropathy DVT ppx: Lovenox Code status: Full code Anticipated discharge place: Pending clinical course Anticipated discharge time: Pending clinical course Objective - Vital Signs Vital signs: Vital Signs Temp 97.8 F 04/22/25 08:00 Pulse 58 L 04/22/25 12:09 Resp 26 H 04/22/25 10:00 BP 97/58 04/22/25 10:00 Pulse Ox 93 L 04/22/25 12:03 FiO2 72 04/22/25 12:03 Intake & Output 04/21/25 04/22/25 04/22/25 18:59 06:59 18:59 Intake Total 1036.813 314.182 50 Output Total 875 620 60 Balance 161.813 -305.818 -10 Weight 98.8 kg Intake: IV 280 120 50 Piperacillin-Tazobactam 3 200 .375 gm In Sodium Chloride 0.9% 100 ml @ 25 mls/hr IVPB Q8HR JU[facility]IS Rx# :[id number] Piperacillin-Tazobactam 3 50 .375 gm In Sodium Chloride 0.9% 100 ml @ 25 mls/hr IVPB Q8HR JU[facility] LUIS Rx# :[id number] kvo 80 120 Intake, IV Titration 35.813 194.182 Amount Dexmedetomidine/0.9% NaCl 35.813 94.182 (Pmx) 400 mcg In Empty Bag 1 bag @ 0.2 MCG/KG/HR 5.05 mls/hr IV .[id number] JUAN LUIS Rx#:[id number] Piperacillin-Tazobactam 3 100 .375 gm In Sodium Chloride 0.9% 100 ml @ 25 mls/hr IVPB Q8HR JU[facility] LUIS Rx# :[id number] Oral 721 Output: Urine 875 620 60 Other: Voiding Method Indwelling Catheter Indwelling Catheter Indwelling Catheter - Labs CBC & Chem 7: 04/22/25 05:22 04/22/25 05:22 Labs: Abnormal Lab Results - Last 24 Hours (Table) 04/21/25 04/21/25 04/22/25 Range/Units 16:20 19:52 05:22 RBC 3.64 L (4.40-5.60) 10*6/uL Hgb 10.9 L (13.0-17.0) g/dL Hct 33.4 L (39.6-50.0) % Immature Gran # 0.35 H (0.00-0.04) 10*3/uL Sodium (137-145) mmol/L Creatinine (0.66-1.25) mg/dL Glucose (74-99) mg/dL POC Glucose (mg/dL) 241 H 263 H (70-110) mg/dL 04/22/25 04/22/25 04/22/25 Range/Units 05:22 06:25 11:46 RBC (4.40-5.60) 10*6/uL Hgb (13.0-17.0) g/dL Hct (39.6-50.0) % Immature Gran # (0.00-0.04) 10*3/uL Sodium 133 L (137-145) mmol/L Creatinine 0.30 L (0.66-1.25) mg/dL Glucose 184 H (74-99) mg/dL POC Glucose (mg/dL) 182 H 222 H (70-110) mg/dL
[2025-04-22 16:29] LABS: Glucose,Whole Blood 266 mg/dL (70-110)
--- NOTE | 2025-04-22 18:18 | P.PN ---
Subjective Progress Note Date: 04/22/25 Principal diagnosis: Acute spinal cord injury with flaccid paralysis bilateral lower extremities, status post open decompression and fusion C7-T1 due to large disc herniation C7- T1 with spinal cord injury, and status post fusion with extension from prior fusion C2-C7 with new extension of fusion down to T3 Patient is seen and examined today at bedside. He is sitting up in chair. He has no new complaints today. He is not complaining of pain. He reports some tingling sensation in the groin area. He is still not able to move his legs. He still feels that he can move his arms adequately. No new complaints Objective - Vital Signs Vital signs: Vital Signs Temp 97.9 F 04/22/25 16:00 Pulse 84 04/22/25 17:00 Resp 17 04/22/25 17:00 BP 145/77 04/22/25 17:00 Pulse Ox 95 04/22/25 17:00 FiO2 70 04/22/25 16:00 Intake & Output 04/21/25 04/22/25 04/22/25 18:59 06:59 18:59 Intake Total 1036.813 314.182 190 Output Total 875 620 570 Balance 161.813 -305.818 -380 Weight 98.8 kg Intake: IV 280 120 190 Piperacillin-Tazobactam 3 200 .375 gm In Sodium Chloride 0.9% 100 ml @ 25 mls/hr IVPB Q8HR JU[facility] LU[facility] Rx# :[id number] Piperacillin-Tazobactam 3 150 .375 gm In Sodium Chloride 0.9% 100 ml @ 25 mls/hr IVPB Q8HR JU[facility] LU[facility] Rx# :[id number] kvo 80 120 40 Intake, IV Titration 35.813 194.182 Amount Dexmedetomidine/0.9% NaCl 35.813 94.182 (Pmx) 400 mcg In Empty Bag 1 bag @ 0.2 MCG/KG/HR 5.05 mls/hr IV .[id number] JUAN LUIS Rx#:[id number] Piperacillin-Tazobactam 3 100 .375 gm In Sodium Chloride 0.9% 100 ml @ 25 mls/hr IVPB Q8HR JU[facility] LU[facility] Rx# :[id number] Oral 721 Output: Urine 875 620 570 Other: Voiding Method Indwelling Catheter Indwelling Catheter Indwelling Catheter - Exam Physical Exam Afebrile Abdomen is soft nontender. Less distended . Chest has good excursion deep and space expiration The incision site is clean dry and intact. Hard collar in place No erythema. no active bleeding or drainage. He has no sensation below umbilicus and down through his legs. He is flaccid his bilateral lower extremities Calves and thighs were soft nontender without evidence of DVT. - Constitutional General appearance: Present: no acute distress - Labs CBC & Chem 7: 04/22/25 05:22 04/22/25 05:22 Labs: Abnormal Lab Results - Last 24 Hours (Table) 04/21/25 04/22/25 04/22/25 Range/Units 19:52 05:22 05:22 RBC 3.64 L (4.40-5.60) 10*6/uL Hgb 10.9 L (13.0-17.0) g/dL Hct 33.4 L (39.6-50.0) % Immature Gran # 0.35 H (0.00-0.04) 10*3/uL Sodium 133 L (137-145) mmol/L Creatinine 0.30 L (0.66-1.25) mg/dL Glucose 184 H (74-99) mg/dL POC Glucose (mg/dL) 263 H (70-110) mg/dL 04/22/25 04/22/25 04/22/25 Range/Units : 11:46 16:27 RBC (4.40-5.60) 10*6/uL Hgb (13.0-17.0) g/dL Hct (39.6-50.0) % Immature Gran # (0.00-0.04) 10*3/uL Sodium (137-145) mmol/L Creatinine (0.66-1.25) mg/dL Glucose (74-99) mg/dL POC Glucose (mg/dL) 182 H 222 H 266 H (70-110) mg/dL Assessment and Plan (1) Cervical myelopathy Narrative/Plan: The patient appears to be stabilized, he is sitting up in chair and conversing okay. The surgical site appears to be stable. Continue to increase the patient's mobilization with therapy. We will continue pain control as needed. We'll continue to follow patient closely. Current Visit: Yes Status: Acute Priority: High Code(s): G95.9 - DISEASE OF SPINAL CORD, UNSPECIFIED SNOMED Code(s): 619912074 Time with Patient: Less than 30
[2025-04-22 19:53] LABS: Glucose,Whole Blood 336 mg/dL (70-110)
[2025-04-23 06:01] LABS: ALT 35 U/L (4-49); AST 15 U/L (17-59); African American GFR (CKD) >90 (>60 ml/min/1.73 sqM); Albumin 2.6 g/dL (3.5-5.0); Alkaline Phosphatase 52 U/L (38-126); Anion Gap 5 mmol/L; Blood Urea Nitrogen 14 mg/dL (9-20); Calcium 8.7 mg/dL (8.4-10.2); Carbon Dioxide 29 mmol/L (22-30); Chloride 103 mmol/L (98-107); Glucose 204 mg/dL (74-99); Non-African American GFR(CKD) >90 (>60 ml/min/1.73 sqM); Potassium 3.8 mmol/L (3.5-5.1); Sodium 137 mmol/L (137-145); Total Protein 5.0 g/dL (6.3-8.2)
[2025-04-23 06:32] LABS: HCT 32.9 % (39.6-50.0); HGB 10.7 g/dL (13.0-17.0); MCH 29.9 pg (27.0-32.0); MCHC 32.5 g/dL (32.0-37.0); MCV 91.9 fL (80.0-97.0); Platelet Count 241 10*3/uL (140-440); RBC 3.58 10*6/uL (4.40-5.60); RDW 14.4 % (11.5-14.5); WBC 6.28 10*3/uL (4.50-10.00)
[2025-04-23 07:04] LABS: Glucose,Whole Blood 182 mg/dL (70-110)
[2025-04-23] MEDS: POTASSIUM CHLORIDE ER 20 MEQ TAB.ER PO SCH (07:07)
[2025-04-23 07:35] LABS: Lymphocytes # (M) 1.26 k/uL (1.0-4.8); Monocytes # (M) 0.38 k/uL (0-1.0); Neutrophils # (M) 4.64 k/uL (1.3-7.7); Neutrophils % (M) 73 %; Total Cells Counted 100
--- NOTE | 2025-04-23 07:56 | XR ---
EXAMINATION TYPE: XR chest 1V DATE OF EXAM: 04/23/2025 5:28 AM COMPARISON: 04/22/2025 CLINICAL INDICATION: Male, 65 years old with history of disease progression, abnormal chest x-ray TECHNIQUE: XR chest 1V view(s) obtained. FINDINGS: The heart size is mildly prominent. The pulmonary vasculature is normal. Left lower lobe infiltrate is present. Small effusion may be present. Findings are worsening from com parison IMPRESSION: 1. Increasing left lower lobe infiltrate and/or left pleural effusion. [facility], , 04/23/2025 7:54 AM
--- NOTE | 2025-04-23 09:09 | P.PN ---
Subjective Progress Note Date: 04/23/25 Hospital Course: Patient is a pleasant 64-year-old male with a past medical history of hypertension, hyperlipidemia, type II ipq-tuglvay-szpxyhcmm diabetes mellitus, involuntary limb muscle fasciculations/movements on Mirapex and last seen neurologist (Dr. Wheeler) approximately 2 months ago, migraine headaches, depression. Presented to the emergency department with a chief complaint of sudden onset numbness extending from periumbilical region downwards throughout groin and bilateral lower extremities followed by weakness of bilateral lower extremities. Patient states he was moving some plants at home when he had sudden onset of numbness around his lower abdomen circling around him like a belt that quickly radiated into his groin and into bilateral lower extremities accompanied by weakness of bilateral lower extremities which resulted in his legs giving out from beneath him causing him to fall to the ground. Patient denied having any dizziness or lightheadedness, headache, neck or back pain, or experiencing any pain in his abdomen, groin, or lower extremities. He denies hitting his head during the fall and denies having any loss of consciousness. But reports due to the sudden onset numbness and weakness he was unable to stand back up and had to have his call EMS for transfer to the hospital. Upon arrival to our facility, patient underwent evaluation in the emergency department. Vital signs upon arrival show blood pressure 165/97, heart rate 88, respiratory rate 18, temp 98.8 F, and SpO2 of 97% on room air. CT lumbar spine CT abdomen and pelvis was also negative for acute intra-abdominal process completed showing no evidence for spinal fracture, no evidence for significant spinal canal stenosis revealing severe right L5-S1 neuroforaminal stenosis and moderate bilateral L4-L5 neuroforaminal stenosis, revealing a right middle lobe pulmonary nodule 8 mm, prostamegaly, colonic diverticulosis, and bilateral adrenal myolipoma's. Labs completed and reviewed. CBC unremarkable. BMP showing hyperglycemia with blood glucose of 146. Liver profile normal findings. Urinalysis positive for glucose and ketones but negative for infection. Patient was admitted under services with consultation to neurology and orthospine surgery. MRI lumbar spine was completed showing no definitive evidence of disc herniation or significant spinal canal stenosis revealing minimal disc degeneration with associated osteoarthritic changes. Patient underwent extensive cervical spinal surgery on the evening of 03/20/2025 through 03/21/2025. Subjective: No acute events overnight. Neurological exam is largely unchanged. Pending insurance authorization prior to discharge to LTAC versus detention Gen: In NAD, non-toxic HEENT: normocephalic, atraumatic, hearing acuity is intant, mucous membranes moist CVS: perfusing all extremities well, no pitting edema, Respiratory: symmetric chest expansion, no accessory muscle use, GI: soft, NTTP, ND, : no suprapubic tenderness, no CVA tenderness MSK/Derm: no rashes, cyanosis Neuro: CN II-XII intact, 0-5 lower extremity weakness bilaterally, 4+ out of 5 upper extremity motor Psych: cooperative, euthymic mood, judgment and insight is intact Assessment and Plan: #. Acute hypoxemic respiratory failure secondary to severe atelectasis and mucous plugging status post bronchoscopy x 2 #. Healthcare acquired Pneumonia secondary to Serratia and Milagros #. Leukocytosis,resolved #. Persistent atelectasis - Patient remains in the ICU, BiPAP versus Airvo dependent - Zosyn IV 3.375 g every 8 hours, for possible postobstructive pneumonia - Previously extubated on 04/02/25 Continue with steroid taper, prednisone to 30 mg daily today Continue DuoNebs 4 times daily and every 2 hours as needed Meropenem and Fluconazole course previously completed Continue with Mucomyst, DuoNebs 4 times daily, every 2 hours as needed Encourage incentive spirometry Aggressive pulmonary toileting Monitor CBC #. Cervical myelopathy secondary to severe spinal canal stenosis involving C7-T1 #. Status post extensive cervical decompression with discectomy at C7-T1 and fusion with extension of fusion from C3-C7 with new extension down to T3 #. Severe right L5-S1 neuroforaminal stenosis #. Moderate bilateral L4-L5 neuroforaminal stenosis Orthopedic surgery following status post extensive cervical decompression with dissecting at C7-T1 and fusion with extension of fusion from C3-C7 with new extension down to T3 Continue Prednisone 30 mg PO daily, will taper Completed course of IV cefazolin Continue neurochecks every 4 hours and as needed. Maintain fall precautions Continue Samuels catheter, patient is retaining Continue Unna boot bilaterally to prevent foot drop PT/OT Social work following with regards to disposition #. Type II bdv-uwhdcoy-syounndyt diabetes mellitus Hyperglycemia likely secondary to high-dose steroids being administered at this time. Improving. -Due to poor oral intake and low blood sugars, Lantus changed to 10 units daily sliding scale insulin, monitor for hypoglycemia #. Bilateral lower extremity edema Bilateral lower extremity Doppler ultrasound negative for DVT #. Hyponatremia Stable, likely in the setting of steroid use Monitor BMP #. Thrombocytopenia, stable, improving heparin-induced platelet antibody 0.213 Monitor CBC #. Hypomagnesemia, resolved #. Hypokalemia, resolved Hypotension, resolved - Continue to hold antihypertensives Chronic: #. Hypertension #. Hyperlipidemia #. Obstructive sleep apnea #. BPH #. Restless leg syndrome #. Neuropathy DVT ppx: Lovenox Code status: Full code Anticipated discharge place: Pending clinical course Anticipated discharge time: Pending clinical course Objective - Vital Signs Vital signs: Vital Signs Temp 99.2 F 04/23/25 04:00 Pulse 78 04/23/25 08:14 Resp 65 H 04/23/25 08:00 BP 144/76 04/23/25 08:00 Pulse Ox 93 L 04/23/25 08:00 FiO2 80 04/23/25 08:00 Intake & Output 04/22/25 04/23/25 04/23/25 18:59 06:59 18:59 Intake Total 240 355.781 30 Output Total 760 1205 130 Balance -520 -849.219 -100 Weight 98 kg Intake: IV 240 220 30 Piperacillin-Tazobactam 3 200 .375 gm In Sodium Chloride 0.9% 100 ml @ 25 mls/hr IVPB Q8HR [facility] Rx# :[id number] kvo 40 220 30 Intake, IV Titration 135.781 Amount Dexmedetomidine/0.9% NaCl 135.781 (Pmx) 400 mcg In Empty Bag 1 bag @ 0.2 MCG/KG/HR 5.05 mls/hr IV .[id number] JUAN LUIS Rx#:[id number] Output: Urine 760 1205 130 Other: Voiding Method Indwelling Catheter Indwelling Catheter - Labs CBC & Chem 7: 04/23/25 05:13 04/23/25 05:13 Labs: Abnormal Lab Results - Last 24 Hours (Table) 04/22/25 04/22/25 04/22/25 Range/Units 11:46 16:27 19:52 RBC (4.40-5.60) 10*6/uL Hgb (13.0-17.0) g/dL Hct (39.6-50.0) % Immature Gran # (0.00-0.04) 10*3/uL Creatinine (0.66-1.25) mg/dL Glucose (74-99) mg/dL POC Glucose (mg/dL) 222 H 266 H 336 H (70-110) mg/dL AST (17-59) U/L Total Protein (6.3-8.2) g/dL Albumin (3.5-5.0) g/dL 04/23/25 04/23/25 04/23/25 Range/Units 05:13 05:13 07:03 RBC 3.58 L (4.40-5.60) 10*6/uL Hgb 10.7 L (13.0-17.0) g/dL Hct 32.9 L (39.6-50.0) % Immature Gran # 0.44 H (0.00-0.04) 10*3/uL Creatinine 0.32 L (0.66-1.25) mg/dL Glucose 204 H (74-99) mg/dL POC Glucose (mg/dL) 182 H (70-110) mg/dL AST 15 L (17-59) U/L Total Protein 5.0 L (6.3-8.2) g/dL Albumin 2.6 L (3.5-5.0) g/dL
[2025-04-23] MEDS ORDERED: Potassium Replacement Protocol 1 EACH MISC MISCELLANE PRN (10:56)
[2025-04-23 11:44] LABS: Glucose,Whole Blood 176 mg/dL (70-110)
[2025-04-23] MEDS: POTASSIUM BICARBONATE/CIT AC 20 MEQ TABLET.EFF NG-TUBE SCH (14:46)
--- NOTE | 2025-04-23 14:54 | P.PN ---
Subjective Progress Note Date: 04/23/25 The patient is seen today April 16, 2025 in follow-up on the selective care unit. He is currently sitting up in bed. Awake and alert in no acute distress. He is maintaining O2 saturation in the low 90s on 4 L/min per nasal cannula. He has been afebrile. Hemodynamically stable. White count 3.8. Hemoglobin 9.8. Platelets 59,000. Sodium 135. Potassium 3.2. Bicarb 30. BUN 15. Creatinine 0.33. Glucose 111. He remains on DuoNeb inhalations. Lovenox for DVT prophylaxis. Remains on a prednisone taper. Awaiting a bed at [facility]. Insurance authorization remains an issue. The patient is seen today April 17, 2025 in follow-up on the selective care unit. He is sitting up in bed. Awake and alert. He is having increasing shortness of breath today with increasing dyspnea. Chest x-ray is again starting to show opacity in the left lung. He continues with a very weak cough. Unable to clear his own secretions. He has been working with respiratory therapy including with the incentive spirometer and flutter valve. He is now requiring 15 L high flow nasal cannula. He has been intolerant to BiPAP. Sodium 135. Potassium 3.8. Bicarb 32. BUN 16. Creatinine 0.40. Glucose 92. He remains on DuoNeb inhalations. Lovenox for DVT prophylaxis. Continued on Mucinex. The patient is seen today April 23, 2025 in follow-up in the intensive care unit. He had again developed respiratory distress while up on the regular medical floor and a near complete whiteout of the left lung. He was placed on BiPAP and showed improvement. Today he is sitting up in a chair. Awake and alert in no acute distress. There is still some left lower lung collapse on the chest x- ray. He remains on Airvo high flow oxygen at 55 L and 75% FiO2 during the day. He is utilizing BiPAP at night 10/15 and 60% FiO2. He remains on Zosyn. He has normal saline at KVO. He attempts to work with the incentive spirometer and the flutter valve but his voice remains weak. His cough remains very weak. He does have paraplegia. He does not even feel subcu injections into the lower abdomen. He remains on DuoNeb inhalations. Receiving chest physiotherapy. Lovenox for DVT prophylaxis. Protonix for GI prophylaxis. Objective - Vital Signs Vital signs: Vital Signs Temp 99.2 F 04/23/25 04:00 Pulse 84 04/23/25 11:53 Resp 23 04/23/25 10:00 BP 131/73 04/23/25 10:00 Pulse Ox 94 L 04/23/25 11:36 FiO2 75 04/23/25 11:36 Intake & Output 04/22/25 04/23/25 04/23/25 18:59 06:59 18:59 Intake Total 240 355.781 150 Output Total 760 1205 570 Balance -520 -849.219 -420 Weight 98 kg Intake: IV 240 220 150 Piperacillin-Tazobactam 3 200 100 .375 gm In Sodium Chloride 0.9% 100 ml @ 25 mls/hr IVPB Q8HR [facility] Rx# :[id number] kvo 40 220 50 Intake, IV Titration 135.781 Amount Dexmedetomidine/0.9% NaCl 135.781 (Pmx) 400 mcg In Empty Bag 1 bag @ 0.2 MCG/KG/HR 5.05 mls/hr IV .[id number] [facility] Rx#:[id number] Output: Urine 760 1205 570 Other: Voiding Method Indwelling Catheter Indwelling Catheter - Exam GENERAL EXAM: Alert, weak 65-year-old male, on Airvo high flow oxygen at 55 L and 75% FiO2, in mild respiratory distress. HEAD: Normocephalic. EYES: Normal reaction of pupils, equal size. NOSE: Clear with pink turbinates. THROAT: No erythema or exudates. NECK: Hard c-collar remains in place. No masses, no JVD. CHEST: No chest wall deformity. LUNGS: Equal air entry with few scattered rhonchi. Diminished in the left lung. CVS: S1 and S2 normal with no audible murmur, regular rhythm. ABDOMEN: No hepatosplenomegaly, normal bowel sounds, no guarding or rigidity. SPINE: No scoliosis or deformity SKIN: No rashes CENTRAL NERVOUS SYSTEM: Paraplegia, tone is normal in all 4 extremities. EXTREMITIES: There is no peripheral edema. No clubbing, no cyanosis. Peripheral pulses are intact. - Labs CBC & Chem 7: 04/23/25 05:13 04/23/25 08:53 Labs: Abnormal Lab Results - Last 24 Hours (Table) 04/22/25 04/22/25 04/23/25 Range/Units 16:27 19:52 05:13 RBC 3.58 L (4.40-5.60) 10*6/uL Hgb 10.7 L (13.0-17.0) g/dL Hct 32.9 L (39.6-50.0) % Immature Gran # 0.44 H (0.00-0.04) 10*3/uL Creatinine (0.66-1.25) mg/dL Glucose (74-99) mg/dL POC Glucose (mg/dL) 266 H 336 H (70-110) mg/dL AST (17-59) U/L Total Protein (6.3-8.2) g/dL Albumin (3.5-5.0) g/dL 04/23/25 04/23/25 04/23/25 Range/Units 05:13 07:03 11:42 RBC (4.40-5.60) 10*6/uL Hgb (13.0-17.0) g/dL Hct (39.6-50.0) % Immature Gran # (0.00-0.04) 10*3/uL Creatinine 0.32 L (0.66-1.25) mg/dL Glucose 204 H (74-99) mg/dL POC Glucose (mg/dL) 182 H 176 H (70-110) mg/dL AST 15 L (17-59) U/L Total Protein 5.0 L (6.3-8.2) g/dL Albumin 2.6 L (3.5-5.0) g/dL Assessment and Plan Assessment: Acute hypoxic respiratory failure, multifactorial. The patient has developed postoperative atelectasis of the left lower lobe and the patient has significant elevation in volume loss in the left lung compared to the right. Previous bronchoscopy and sputum analysis was positive for Serratia marcescens. Nasal culture is positive for MSSA and the patient completed the course of antibiotics. He has a very weak cough and poor ability to perform pulmonary toileting. He has had several incidences of near complete whiteout of the left lung at times. Chest x-rays have been waxing and waning. Today's x-ray shows increasing left lower lobe infiltrate. He is currently on Airvo high flow oxygen at 55 L and 75% FiO2 and utilizing BiPAP at night 12/8 and 60% FiO2 T8 spinal cord injury. The patient has severe spinal canal stenosis at the level of C7/T1 with motor weakness in the lower extremities in addition to myelopathy. The patient is post C7/T1 discectomy with decompression and fusion and the patient also had extension of a previous C2/7 fusion to T3. This was done back on March 21, 2025 Obstructive sleep apnea maintain CPAP therapy on outpatient basis Diabetes mellitus type 2, with steroid-induced hyperglycemia Hypotension, rule out septic versus neurogenic hypotension post spine surgery Sinus tachycardia Hyperlipidemia Seroma in the posterior soft tissues along the length of the skin jarad, spina l surgeries following Bilateral lower extremity weakness, ongoing motor weakness in the lower extre mities bilaterally with absent motor function at this point with bilateral foot drop. Patient's sensations in the lower limbs have improved, but now patient is completely paraplegic. T8 p spinal cord injury with motor paralysis lower extremities bilaterally with absent sensation. He does have some feelings in his lower abdomen towards the groin. History of prior cervical fusion C3-C7 History of severe L5-S1 neuroforaminal stenosis Plan: The patient was seen and evaluated Chest x-ray, labs and medications reviewed Currently on Airvo high flow oxygen He has been intermittent with the BiPAP Continue chest physiotherapy Continue bronchodilators Continue the incentive spirometer Continue the flutter valve Continue Mucinex If he goes back on the vent will recommend early tracheostomy and PEG tube placement Will need long-term acute care placement I have personally seen and examined the patient, performed the documentation and the assessment and plan as written. Number of minutes spent on the visit: 10 Dictation was produced using [employer] dictation software. Please excuse any gr ammatical, word or spelling errors.
[2025-04-23 16:11] LABS: Glucose,Whole Blood 261 mg/dL (70-110)
[2025-04-23 19:50] LABS: Glucose,Whole Blood 210 mg/dL (70-110)
[2025-04-24] MEDS: MELATONIN 5 MG TABLET PO PRN (01:00)
[2025-04-24 05:59] LABS: Basophils # (A) 0.03 10*3/uL (0.00-0.10); Basophils % (A) 0.4 %; Eosinophils # (A) 0.03 10*3/uL (0.04-0.35); Eosinophils % (A) 0.4 %; HCT 33.3 % (39.6-50.0); HGB 10.7 g/dL (13.0-17.0); Lymphocytes # (A) 1.41 10*3/uL (0.90-5.00); Lymphocytes % (A) 16.9 %; MCH 29.4 pg (27.0-32.0); MCHC 32.1 g/dL (32.0-37.0); MCV 91.5 fL (80.0-97.0); Monocytes # (A) 1.02 10*3/uL (0.20-1.00); Monocytes % (A) 12.2 %; Neutrophils # (A) 5.29 10*3/uL (1.80-7.70); Neutrophils % (A) 63.3 %; Platelet Count 339 10*3/uL (140-440); RBC 3.64 10*6/uL (4.40-5.60); RDW 14.6 % (11.5-14.5); WBC 8.35 10*3/uL (4.50-10.00)
[2025-04-24 06:06] LABS: Glucose,Whole Blood 117 mg/dL (70-110)
[2025-04-24 06:30] LABS: African American GFR (CKD) >90 (>60 ml/min/1.73 sqM); Anion Gap 6 mmol/L; Blood Urea Nitrogen 13 mg/dL (9-20); Calcium 8.5 mg/dL (8.4-10.2); Carbon Dioxide 29 mmol/L (22-30); Chloride 101 mmol/L (98-107); Glucose 127 mg/dL (74-99); Non-African American GFR(CKD) >90 (>60 ml/min/1.73 sqM); Potassium 3.6 mmol/L (3.5-5.1); Sodium 136 mmol/L (137-145)
--- NOTE | 2025-04-24 07:59 | P.PN ---
Progress Note - Text Progress Note Date: 04/24/25 The patient was seen yesterday and was seen today. Yesterday his was with him and he was sitting up in a chair. Overnight the patient has had some agitation as he is declining to use the BiPAP. Neurologically he is using his upper extremities better in general but he is not having any significant change in his lower extremities. We continue to follow him closely regards to his spinal cord injury. His surgical site appears stable. He will continue to try to increase his mobility and function with PT and OT. I have tried to reiterate to him the severity of his issues and to his given the fact that he is in constant respiratory distress. In the end even as his respiratory status stabilizes he is paraplegic. Will continue to consider options for his respiratory status and for his rehabilitation. He is continuing his management as per critical care
--- NOTE | 2025-04-24 08:02 | XR ---
EXAMINATION TYPE: XR chest 1V portable DATE OF EXAM: 04/24/2025 6:05 AM COMPARISON: 04/23/2025 CLINICAL INDICATION: Male, 65 years old with history of f/u left lower lobe infiltrate, TECHNIQUE: XR chest 1V portable view(s) obtained. FINDINGS: The heart size is enlarged. The pulmonary vasculature is normal. Left lower lobe opacity is present. Some infiltrate is in the left suprahilar region. Findings are wo rsening over the interval IMPRESSION: 1. Worsening left lower lobe and perihilar infiltrate. Pleural effusion may be present. Continued fol low-up recommended [facility] Radha Slater, , 04/24/2025 8:00 AM
[2025-04-24] MEDS: POTASSIUM BICARBONATE/CIT AC 20 MEQ TABLET.EFF NG-TUBE SCH (10:32)
[2025-04-24 10:55] LABS: Glucose,Whole Blood 173 mg/dL (70-110)
--- NOTE | 2025-04-24 11:05 | P.PN ---
Progress Note - Text Progress Note Date: 04/23/25 Orthopedic spine: History of present illness: Patient is a very pleasant 65-year-old male who is seen examined at bedside in the ICU for follow-up evaluation of the cervical spine. He is status post posterior cervical decompression discectomy at C7-T1 with extension of fusion from C7 down to T3. He has not had any change in his symptoms from an orthopedic spine standpoint over the weekend. He states he continues to be able to feel his right great toe and today states he feels his other toes in the right foot foot and some sensation over his right foot but not in the youssef or calf area. He does have some increased sensation over his anterior thighs which he states again is greater on the right than the left. He continues to keep his hard cervical collar intact. He was transitioned into his new hard cervical collar. He is not experiencing any cervical pain. He continues with dressing changes as needed. He currently has no significant drainage at the bedside. His surgical site is currently dry. He has good range of motion of his bilateral upper extremities except for his shoulders bilaterally. He is able to make a fist but is weak with his rubber turner. He is awake and alert. He is able to answer questions appropriately. Patient is in a good mood this morning. He continues have significant difficulty with this bilateral lower extremities. He has some improved numbness around his abdomen towards the groin and some increased sensation over his anterior thighs. He admits to continued sensation in his right great toe. He has no motor function in his lower extremities. His lower extremity symptoms have not improved. He currently has compression stockings and boots intact. Samuels catheter continues to be present after failing a voiding trial. He will be discharged with a catheter intact. He has had further difficulty from a pulmonary standpoint after transitioning out of the ICU to selective care. He is now back in the ICU. He did have some difficulty from a pulmonary standpoint over the weekend. Patient is also currently waiting for authorization through the [place] for approval for discharge to spinal cord rehabilitation facility. Nursing states today there is approval for a facility in [place]. He continues to be seen exam by multiple medical providers including pulmonology and medicine. He has been transferred to a bedside chair. Physical Exam Posterior Cervical Fusion: Status post surgical day number #33 Patient is awake, alert, and oriented 3; patient is answering questions appropriately [employer] strength, thumb strength, interosseous strength, biceps strength, and triceps strength positive sustained bilaterally He is able to shrug his shoulders. Weakness with rubber turner bilaterally Hard cervical collar intact Reporting some sensation with palpation over the anterior thighs bilaterally, right greater than left He states he has sensation with palpation over his right great toe and other toes of the right foot and on his foot Pneumatic boots intact bilateral lower extremities Compression stockings intact bilaterally Samuels catheter intact Dressing is dry and intact with a small area of dried blood at the inferior aspect of the incision site of the posterior cervicothoracic surgical site Hard cervical collar is adjusted during physical examination No active drainage from the surgical site Assessment: Spinal cord injury with paralysis at T8 Postoperative day #33: Status post posterior cervical decompression discectomy at C7-T1 with extension of fusion from C7-T3 Bilateral lower extremity paralysis Bilateral lower extremity loss of sensation Acute hypoxic respiratory failure Left-sided atelectasis Obstructive sleep apnea syndrome on CPAP normally Type 2 diabetes Hypotension could be related to sepsis could also be neurogenic post spinal arin fozia Dyslipidemia Plan: We will continue with our plan as set forth previously. 1. Patient was transferred back to the ICU due to pulmonary status. He is awake, alert, and oriented and answering questions appropriately. He continues to be closely managed from pulmonary standpoint. Currently waiting for insurance authorization from the [place] for approval to discharge to spinal cord rehabilitation facility. [facility] authorization has been approved for a facility in [place]. 2. Patient must keep his hard cervical collar intact at all times. He was transitioned into his new hard cervical collar. Patient may continue with dressing changes as needed at the posterior cervical spine. 3. Patient continues to have flaccid paralysis in his bilateral lower extremiti es. He has had some increase in sensation around his abdomen towards his groin and admits to some increased sensation over his anterior thighs greater on the right than the left. He continues to have some sensation in his right great toe and does feel some increase sensation over the toes of the right foot and the top of the right foot. He continues to have paralysis.. They should continue with position change regularly to help prevent decubitus issues. 4. When medically stable clear, patient will be planning to be discharged to a spinal cord facility for rehabilitation. Patient may follow-up with Jesu Villarreal PA-C or Dr. Gideon Noyola at [facility] in 2-3 weeks following discharge
--- NOTE | 2025-04-24 11:47 | P.PN ---
Subjective Progress Note Date: 04/24/25 The patient is seen today April 16, 2025 in follow-up on the selective care unit. He is currently sitting up in bed. Awake and alert in no acute distress. He is maintaining O2 saturation in the low 90s on 4 L/min per nasal cannula. He has been afebrile. Hemodynamically stable. White count 3.8. Hemoglobin 9.8. Platelets 59,000. Sodium 135. Potassium 3.2. Bicarb 30. BUN 15. Creatinine 0.33. Glucose 111. He remains on DuoNeb inhalations. Lovenox for DVT prophylaxis. Remains on a prednisone taper. Awaiting a bed at [facility]. Insurance authorization remains an issue. The patient is seen today April 17, 2025 in follow-up on the selective care unit. He is sitting up in bed. Awake and alert. He is having increasing shortness of breath today with increasing dyspnea. Chest x-ray is again starting to show opacity in the left lung. He continues with a very weak cough. Unable to clear his own secretions. He has been working with respiratory therapy including with the incentive spirometer and flutter valve. He is now requiring 15 L high flow nasal cannula. He has been intolerant to BiPAP. Sodium 135. Potassium 3.8. Bicarb 32. BUN 16. Creatinine 0.40. Glucose 92. He remains on DuoNeb inhalations. Lovenox for DVT prophylaxis. Continued on Mucinex. The patient is seen today April 23, 2025 in follow-up in the intensive care unit. He had again developed respiratory distress while up on the regular medical floor and a near complete whiteout of the left lung. He was placed on BiPAP and showed improvement. Today he is sitting up in a chair. Awake and alert in no acute distress. There is still some left lower lung collapse on the chest x- ray. He remains on Airvo high flow oxygen at 55 L and 75% FiO2 during the day. He is utilizing BiPAP at night 10/15 and 60% FiO2. He remains on Zosyn. He has normal saline at KVO. He attempts to work with the incentive spirometer and the flutter valve but his voice remains weak. His cough remains very weak. He does have paraplegia. He does not even feel subcu injections into the lower abdomen. He remains on DuoNeb inhalations. Receiving chest physiotherapy. Lovenox for DVT prophylaxis. Protonix for GI prophylaxis. The patient is seen today April 24, 2025 in follow-up in the intensive care unit. He is currently sitting up in bed. Awake and alert in no acute distress. He continues to have minimal tolerance for any activity without having shortness of breath and desaturations. His chest x-ray is again showing worsening left lower lobe collapse. He refused to wear the BiPAP last evening. He remains quite anxious about it. He remains on Airvo high flow nasal cannula at 60 L and 80% FiO2. Initial bronch wash cultures from March 26, 2025 was positive for Serratia marcescens. He is currently on Zosyn. White count 8.3. Hemoglobin 10.7. Platelets 339. Sodium 136. Potassium 3.6. Bicarb 29. BUN 13. Creatinine 0.32. Glucose 127. He remains on DuoNeb inhalations, Mucinex, prednisone. Lovenox for DVT prophylaxis. Protonix for GI prophylaxis. Objective - Vital Signs Vital signs: Vital Signs Temp 98.0 F 04/24/25 08:00 Pulse 97 04/24/25 11:00 Resp 26 H 04/24/25 11:00 BP 112/69 04/24/25 11:00 Pulse Ox 92 L 04/24/25 11:00 FiO2 80 04/24/25 10:17 Intake & Output 04/23/25 04/24/25 04/24/25 18:59 06:59 18:59 Intake Total 290 210 120 Output Total 1645 1190 250 Balance -1355 -980 -130 Weight 100.7 kg Intake: IV 290 210 120 Piperacillin-Tazobactam 3 200 100 100 .375 gm In Sodium Chloride 0.9% 100 ml @ 25 mls/hr IVPB Q8HR [facility] Rx# :[id number] kvo 90 110 20 Output: Urine 1645 1190 250 Other: Voiding Method Indwelling Catheter Indwelling Catheter Indwelling Catheter # Bowel Movements 1 - Exam GENERAL EXAM: Alert, weak 65-year-old male, sitting up in bed, on Airvo high flow oxygen at 60 L and 80% FiO2, in mild respiratory distress. HEAD: Normocephalic. EYES: Normal reaction of pupils, equal size. NOSE: Clear with pink turbinates. THROAT: No erythema or exudates. NECK: Hard c-collar remains in place. No masses, no JVD. CHEST: No chest wall deformity. LUNGS: Equal air entry with few scattered rhonchi. Diminished in the left lung. CVS: S1 and S2 normal with no audible murmur, regular rhythm. ABDOMEN: No hepatosplenomegaly, normal bowel sounds, no guarding or rigidity. SPINE: No scoliosis or deformity SKIN: No rashes CENTRAL NERVOUS SYSTEM: Paraplegia, tone is normal in all 4 extremities. EXTREMITIES: There is no peripheral edema. No clubbing, no cyanosis. Peripheral pulses are intact. - Labs CBC & Chem 7: 04/24/25 05:24 04/24/25 05:24 Labs: Abnormal Lab Results - Last 24 Hours (Table) 04/23/25 04/23/25 04/23/25 Range/Units 11:42 16:09 19:49 RBC (4.40-5.60) 10*6/uL Hgb (13.0-17.0) g/dL Hct (39.6-50.0) % MPV (9.5-12.2) fL Immature Gran # (0.00-0.04) 10*3/uL Monocytes # (0.20-1.00) 10*3/uL Eosinophils # (0.04-0.35) 10*3/uL Sodium (137-145) mmol/L Creatinine (0.66-1.25) mg/dL Glucose (74-99) mg/dL POC Glucose (mg/dL) 176 H 261 H 210 H (70-110) mg/dL 04/24/25 04/24/25 04/24/25 Range/Units 05:24 05:24 06:05 RBC 3.64 L (4.40-5.60) 10*6/uL Hgb 10.7 L (13.0-17.0) g/dL Hct 33.3 L (39.6-50.0) % MPV 9.1 L (9.5-12.2) fL Immature Gran # 0.57 H (0.00-0.04) 10*3/uL Monocytes # 1.02 H (0.20-1.00) 10*3/uL Eosinophils # 0.03 L (0.04-0.35) 10*3/uL Sodium 136 L (137-145) mmol/L Creatinine 0.32 L (0.66-1.25) mg/dL Glucose 127 H (74-99) mg/dL POC Glucose (mg/dL) 117 H (70-110) mg/dL 04/24/25 Range/Units 10:54 RBC (4.40-5.60) 10*6/uL Hgb (13.0-17.0) g/dL Hct (39.6-50.0) % MPV (9.5-12.2) fL Immature Gran # (0.00-0.04) 10*3/uL Monocytes # (0.20-1.00) 10*3/uL Eosinophils # (0.04-0.35) 10*3/uL Sodium (137-145) mmol/L Creatinine (0.66-1.25) mg/dL Glucose (74-99) mg/dL POC Glucose (mg/dL) 173 H (70-110) mg/dL Assessment and Plan Assessment: Acute hypoxic respiratory failure, multifactorial. The patient has developed postoperative atelectasis of the left lower lobe and the patient has significant elevation in volume loss in the left lung compared to the right. Previous bronchoscopy and sputum analysis was positive for Serratia marcescens. Nasal culture is positive for MSSA and the patient completed the course of antibiotics. He has a very weak cough and poor ability to perform pulmonary toileting. He has had several incidences of near complete whiteout of the left lung at times. Chest x-rays have been waxing and waning. Today's x-ray again shows increasing left lower lobe infiltrate. He is currently on Airvo high flow oxygen at 60 L and 80% FiO2 and did not utilize BiPAP last night T8 spinal cord injury. The patient has severe spinal canal stenosis at the level of C7/T1 with motor weakness in the lower extremities in addition to myelopathy. The patient is post C7/T1 discectomy with decompression and fusion and the patient also had extension of a previous C2/7 fusion to T3. This was done back on March 21, 2025 Obstructive sleep apnea maintain CPAP therapy on outpatient basis Diabetes mellitus type 2, with steroid-induced hyperglycemia Hypotension, rule out septic versus neurogenic hypotension post spine surgery Sinus tachycardia Hyperlipidemia Seroma in the posterior soft tissues along the length of the skin jarad, spinal surgeries following Bilateral lower extremity weakness, ongoing motor weakness in the lower extremities bilaterally with absent motor function at this point with bilateral foot drop. Patient's sensations in the lower limbs have improved, but now patient is completely paraplegic. T8 p spinal cord injury with motor paralysis lower extremities bilaterally with absent sensation. He does have some feelings in his lower abdomen towards the groin. History of prior cervical fusion C3-C7 History of severe L5-S1 neuroforaminal stenosis Plan: The patient was seen and evaluated Chest x-ray, labs and medications reviewed Currently on Airvo high flow oxygen He has been reluctant to wear the BiPAP Discontinue Valium Initiate Ativan 1 mg IVP every 4 hours as needed Encouraged to wear the BiPAP is much as possible Continue chest physiotherapy Continue bronchodilators Continue the incentive spirometer Continue the flutter valve Continue Mucinex If he goes back on the vent will recommend early tracheostomy and PEG tube placement Will need long-term acute care placement I have personally seen and examined the patient, performed the documentation and the assessment and plan as written. Number of minutes spent on the visit: 10 Dictation was produced using [employer] dictation software. Please excuse any grammatical, word or spelling errors.
[2025-04-24] MEDS: LORazepam 1 MG/0.5 ML VIAL IV PRN (11:54)
--- NOTE | 2025-04-24 15:07 | P.PN ---
Subjective Progress Note Date: 04/24/25 Hospital Course: Patient is a pleasant 64-year-old male with a past medical history of hypertension, hyperlipidemia, type II dft-jzlmccr-gzickpmus diabetes mellitus, involuntary limb muscle fasciculations/movements on Mirapex and last seen neurologist (Dr. Wheeler) approximately 2 months ago, migraine headaches, depression. Presented to the emergency department with a chief complaint of sudden onset numbness extending from periumbilical region downwards throughout groin and bilateral lower extremities followed by weakness of bilateral lower extremities. Patient states he was moving some plants at home when he had sudden onset of numbness around his lower abdomen circling around him like a belt that quickly radiated into his groin and into bilateral lower extremities accompanied by weakness of bilateral lower extremities which resulted in his legs giving out from beneath him causing him to fall to the ground. Patient denied having any dizziness or lightheadedness, headache, neck or back pain, or experiencing any pain in his abdomen, groin, or lower extremities. He denies hitting his head during the fall and denies having any loss of consciousness. But reports due to the sudden onset numbness and weakness he was unable to stand back up and had to have his call EMS for transfer to the hospital. Upon arrival to our facility, patient underwent evaluation in the emergency department. Vital signs upon arrival show blood pressure 165/97, heart rate 88, respiratory rate 18, temp 98.8 F, and SpO2 of 97% on room air. CT lumbar spine CT abdomen and pelvis was also negative for acute intra-abdominal process completed showing no evidence for spinal fracture, no evidence for significant spinal canal stenosis revealing severe right L5-S1 neuroforaminal stenosis and moderate bilateral L4-L5 neuroforaminal stenosis, revealing a right middle lobe pulmonary nodule 8 mm, prostamegaly, colonic diverticulosis, and bilateral adrenal myolipoma's. Labs completed and reviewed. CBC unremarkable. BMP showing hyperglycemia with blood glucose of 146. Liver profile normal findings. Urinalysis positive for glucose and ketones but negative for infection. Patient was admitted under services with consultation to neurology and orthospine surgery. MRI lumbar spine was completed showing no definitive evidence of disc herniation or significant spinal canal stenosis revealing minimal disc degeneration with associated osteoarthritic changes. Patient underwent extensive cervical spinal surgery on the evening of 03/20/2025 through 03/21/2025. Subjective: No acute events overnight. Neurological exam is largely unchanged. [facility] however, there is ongoing conversation about proceeding with tracheostomy. Gen: In NAD, non-toxic HEENT: normocephalic, atraumatic, hearing acuity is intant, mucous membranes moist CVS: perfusing all extremities well, no pitting edema, Respiratory: symmetric chest expansion, no accessory muscle use, GI: soft, NTTP, ND, : no suprapubic tenderness, no CVA tenderness MSK/Derm: no rashes, cyanosis Neuro: CN II-XII intact, 0-5 lower extremity weakness bilaterally, 4+ out of 5 upper extremity motor Psych: cooperative, euthymic mood, judgment and insight is intact Assessment and Plan: #. Acute hypoxemic respiratory failure secondary to severe atelectasis and mucous plugging status post bronchoscopy x 2 #. Healthcare acquired Pneumonia secondary to Serratia and Milagros #. Leukocytosis,resolved #. Persistent atelectasis - Patient remains in the ICU, BiPAP versus Airvo dependent - Zosyn IV 3.375 g every 8 hours, for possible postobstructive pneumonia - Previously extubated on 04/02/25 Continue with steroid taper, prednisone to 30 mg daily today Continue DuoNebs 4 times daily and every 2 hours as needed Meropenem and Fluconazole course previously completed Continue with Mucomyst, DuoNebs 4 times daily, every 2 hours as needed Encourage incentive spirometry Aggressive pulmonary toileting Monitor CBC #. Cervical myelopathy secondary to severe spinal canal stenosis involving C7-T1 #. Status post extensive cervical decompression with discectomy at C7-T1 and fusion with extension of fusion from C3-C7 with new extension down to T3 #. Severe right L5-S1 neuroforaminal stenosis #. Moderate bilateral L4-L5 neuroforaminal stenosis Orthopedic surgery following status post extensive cervical decompression with dissecting at C7-T1 and fusion with extension of fusion from C3-C7 with new extension down to T3 Continue Prednisone 30 mg PO daily, will taper Completed course of IV cefazolin Continue neurochecks every 4 hours and as needed. Maintain fall precautions Continue Samuels catheter, patient is retaining Continue Unna boot bilaterally to prevent foot drop PT/OT Social work following with regards to disposition #. Type II ebn-sjpvdax-acxjozvrs diabetes mellitus Hyperglycemia likely secondary to high-dose steroids being administered at this time. Improving. -Due to poor oral intake and low blood sugars, Lantus changed to 10 units daily sliding scale insulin, monitor for hypoglycemia #. Bilateral lower extremity edema Bilateral lower extremity Doppler ultrasound negative for DVT #. Hyponatremia Stable, likely in the setting of steroid use Monitor BMP #. Thrombocytopenia, stable, improving heparin-induced platelet antibody 0.213 Monitor CBC #. Hypomagnesemia, resolved #. Hypokalemia, resolved Hypotension, resolved - Continue to hold antihypertensives Chronic: #. Hypertension #. Hyperlipidemia #. Obstructive sleep apnea #. BPH #. Restless leg syndrome #. Neuropathy DVT ppx: Lovenox Code status: Full code Anticipated discharge place: Pending clinical course Anticipated discharge time: Pending clinical course Objective - Vital Signs Vital signs: Vital Signs Temp 99.5 F 04/24/25 12:00 Pulse 88 04/24/25 14:00 Resp 24 04/24/25 14:00 BP 122/68 04/24/25 14:00 Pulse Ox 98 04/24/25 14:00 FiO2 70 04/24/25 12:00 Intake & Output 04/23/25 04/24/25 04/24/25 18:59 06:59 18:59 Intake Total 290 210 120 Output Total 1645 1190 365 Balance -5399 -760 -130 Weight 100.7 kg 100.7 kg Intake: IV 290 210 120 Piperacillin-Tazobactam 3 200 100 100 .375 gm In Sodium Chloride 0.9% 100 ml @ 25 mls/hr IVPB Q8HR [facility] Rx# :[id number] kvo 90 110 20 Output: Urine 1645 1190 365 Other: Voiding Method Indwelling Catheter Indwelling Catheter Indwelling Catheter # Bowel Movements 1 - Labs CBC & Chem 7: 04/24/25 05:24 04/24/25 05:24 Labs: Abnormal Lab Results - Last 24 Hours (Table) 04/23/25 04/23/25 04/24/25 Range/Units 16:09 19:49 05:24 RBC 3.64 L (4.40-5.60) 10*6/uL Hgb 10.7 L (13.0-17.0) g/dL Hct 33.3 L (39.6-50.0) % MPV 9.1 L (9.5-12.2) fL Immature Gran # 0.57 H (0.00-0.04) 10*3/uL Monocytes # 1.02 H (0.20-1.00) 10*3/uL Eosinophils # 0.03 L (0.04-0.35) 10*3/uL Sodium (137-145) mmol/L Creatinine (0.66-1.25) mg/dL Glucose (74-99) mg/dL POC Glucose (mg/dL) 261 H 210 H (70-110) mg/dL 04/24/25 04/24/25 04/24/25 Range/Units 05:24 06:05 10:54 RBC (4.40-5.60) 10*6/uL Hgb (13.0-17.0) g/dL Hct (39.6-50.0) % MPV (9.5-12.2) fL Immature Gran # (0.00-0.04) 10*3/uL Monocytes # (0.20-1.00) 10*3/uL Eosinophils # (0.04-0.35) 10*3/uL Sodium 136 L (137-145) mmol/L Creatinine 0.32 L (0.66-1.25) mg/dL Glucose 127 H (74-99) mg/dL POC Glucose (mg/dL) 117 H 173 H (70-110) mg/dL
[2025-04-24 15:57] LABS: Glucose,Whole Blood 237 mg/dL (70-110)
[2025-04-24 19:41] LABS: Glucose,Whole Blood 186 mg/dL (70-110)
[2025-04-25] MEDS: LORazepam 1 MG/0.5 ML VIAL IV STA (02:25)
[2025-04-25 02:50] LABS: ABG HCO3 36 mmol/L (21-25); ABG PH 7.22 (7.35-7.45); ABG PO2 93 mmHg (83-108); ABG TCO2 39 mmol/L (19-24)
[2025-04-25 02:54] LABS: ABG PCO2 87 mmHg (35-45)
[2025-04-25 02:55] LABS: Allen Test Performed? lrad
[2025-04-25] MEDS: DEXMEDETOMIDINE/0.9% NACL(PMX) 400 MCG in EMPTY BAG 1 BAG IV SCH (04:08)
[2025-04-25 06:05] LABS: Basophils # (A) 0.04 10*3/uL (0.00-0.10); Basophils % (A) 0.4 %; Eosinophils # (A) 0.01 10*3/uL (0.04-0.35); Eosinophils % (A) 0.1 %; HCT 35.2 % (39.6-50.0); HGB 10.9 g/dL (13.0-17.0); Lymphocytes # (A) 0.61 10*3/uL (0.90-5.00); Lymphocytes % (A) 5.7 %; MCH 29.2 pg (27.0-32.0); MCHC 31.0 g/dL (32.0-37.0); MCV 94.4 fL (80.0-97.0); Monocytes # (A) 1.27 10*3/uL (0.20-1.00); Monocytes % (A) 12.0 %; Neutrophils # (A) 8.20 10*3/uL (1.80-7.70); Neutrophils % (A) 77.2 %; Platelet Count 345 10*3/uL (140-440); RBC 3.73 10*6/uL (4.40-5.60); RDW 14.3 % (11.5-14.5); WBC 10.62 10*3/uL (4.50-10.00)
[2025-04-25 06:33] LABS: African American GFR (CKD) >90 (>60 ml/min/1.73 sqM); Anion Gap 2 mmol/L; Blood Urea Nitrogen 11 mg/dL (9-20); Calcium 9.2 mg/dL (8.4-10.2); Carbon Dioxide 37 mmol/L (22-30); Chloride 96 mmol/L (98-107); Glucose 150 mg/dL (74-99); Non-African American GFR(CKD) >90 (>60 ml/min/1.73 sqM); Potassium 3.9 mmol/L (3.5-5.1); Sodium 135 mmol/L (137-145)
[2025-04-25 06:50] LABS: Glucose,Whole Blood 144 mg/dL (70-110)
--- NOTE | 2025-04-25 07:43 | XR ---
EXAMINATION TYPE: XR chest 1V portable DATE OF EXAM: 04/25/2025 5:41 AM COMPARISON: 04/24/2025 CLINICAL INDICATION: Male, 65 years old with history of f/u left lower lobe infiltrate, TECHNIQUE: XR chest 1V portable view(s) obtained. FINDINGS: The heart size is normal. The pulmonary vasculature is normal. Left lower lobe infiltrate is present. Correlate for atelectasis or pneumonia. This is improved from comparison. IMPRESSION: 1. Improving left lower lobe infiltrate. Correlate for resolving atelectasis. Continued follow-up is recommended [facility], , 04/25/2025 7:40 AM
[2025-04-25] MEDS: POTASSIUM CHLORIDE 10 MEQ in WATER FOR INJECTION 1 100ML.BAG IVPB SCH (08:32)
[2025-04-25 11:14] LABS: Glucose,Whole Blood 171 mg/dL (70-110)
--- NOTE | 2025-04-25 11:49 | P.PN ---
Subjective Subjective: Patient seen and examined at bedside. Has been on bipap throughout the night. Also been on some precedex Pertinent positives and negatives as discussed above, a complete review of systems was performed and all other systems are negative. Vitals Signs Reviewed. General: Nontoxic, no distress, appears at stated age Derm: Warm, dry Head: Atraumatic, normocephalic, symmetric, c-collar in place Eyes: EOMI, no lid lag, anicteric sclera Mouth: No lip lesion, mucus membranes moist Cardiovascular: S1S2 reg, no murmur Lungs: Reduced breath sounds on the left lower lobe, no accessory muscle use, supplemental oxygen, Bipap Abdominal: Soft, nontender to palpation, no guarding, no appreciable organomegaly Ext: No gross muscle atrophy, no edema, no contractures Neuro: Flaccid paralysis in bilateral lower extremity, reduced sensation below abdomen Psych: Alert, oriented, appropriate affect Data Reviewed Today: Pertinent Labs: WBC10.62, hgb 10.9, ph 7.22, pco2 87, Cr 0.25, BS range between 144-171 Imaging: Chest x-ray independently interpreted, shows persistent left lower lobe opacity Assessment and Plan: #. Acute hypoxemic and hypercapnic respiratory failure secondary to severe atelectasis and mucous plugging status post bronchoscopy x 2 # Respiratory acidosis #. Healthcare acquired Pneumonia secondary to Serratia and Milagros #. Leukocytosis #. Persistent atelectasis - Remains in ICU on Bipap - Previously extubated on 04/02/25 Continue with steroid taper, decreased prednisone to 20 mg daily today Continue DuoNebs 4 times daily and every 2 hours as needed Meropenem, zosyn and Fluconazole course previously completed Continue with Mucomyst, DuoNebs 4 times daily, every 2 hours as needed Encourage incentive spirometry Aggressive pulmonary toileting Monitor CBC - plan for trach and peg and then [facility] #. Cervical myelopathy secondary to severe spinal canal stenosis involving C7-T1 #. Status post extensive cervical decompression with discectomy at C7-T1 and fusion with extension of fusion from C3-C7 with new extension down to T3 #. Severe right L5-S1 neuroforaminal stenosis #. Moderate bilateral L4-L5 neuroforaminal stenosis Orthopedic surgery following status post extensive cervical decompression with dissecting at C7-T1 and fusion with extension of fusion from C3-C7 with new extension down to T3 Continue Prednisone 20 mg PO daily, will taper Completed course of IV cefazolin Continue neurochecks every 4 hours and as needed. Maintain fall precautions Continue Samuels catheter, patient is retaining Continue Unna boot bilaterally to prevent foot drop PT/OT Social work following with regards to disposition #. Type II wqb-vgjzdcr-xspsmltcn diabetes mellitus Hyperglycemia likely secondary to high-dose steroids being administered at this time. Improving. -Due to poor oral intake and low blood sugars, Lantus changed to 10 units daily sliding scale insulin, monitor for hypoglycemia #. Bilateral lower extremity edema Bilateral lower extremity Doppler ultrasound negative for DVT #. Hyponatremia Stable, likely in the setting of steroid use Monitor BMP #. Thrombocytopenia, stable, resolved #. normocytic anemia, stable #. Hypomagnesemia, resolved #. Hypokalemia, resolved Hypotension, resolved - Continue to hold antihypertensives Chronic: #. Hypertension #. Hyperlipidemia #. Obstructive sleep apnea #. BPH #. Restless leg syndrome #. Neuropathy DVT ppx: Lovenox Code status: Full code Anticipated discharge place: Pending clinical course Anticipated discharge time: Pending clinical course Objective - Vital Signs Vital signs: Vital Signs Temp 97.6 F 04/25/25 08:00 Pulse 56 L 04/25/25 11:00 Resp 19 04/25/25 11:00 BP 89/57 04/25/25 11:00 Pulse Ox 96 04/25/25 11:00 FiO2 70 04/25/25 08:02 Intake & Output 04/24/25 04/25/25 04/25/25 18:59 06:59 18:59 Intake Total 190 110 271.902 Output Total 1540 530 120 Balance -1350 -420 151.902 Weight 100.7 kg 96.4 kg Intake: IV 190 110 50 Piperacillin-Tazobactam 3 100 .375 gm In Sodium Chloride 0.9% 100 ml @ 25 mls/hr IVPB Q8HR [facility] Rx# :[id number] kvo 90 110 50 Intake, IV Titration 221.902 Amount Dexmedetomidine/0.9% NaCl 21.902 (Pmx) 400 mcg In Empty Bag 1 bag @ 0.2 MCG/KG/HR 5.035 mls/hr IV .[id number] [facility] Rx#:[id number] Potassium Chloride 10 meq 200 In Water For Injection 1 100ml.bag @ 100 mls/hr IVPB Q1H [facility] Rx#: [id number] Output: Urine 1540 530 120 Other: Voiding Method Indwelling Catheter Indwelling Catheter Indwelling Catheter # Bowel Movements 1 - Labs CBC & Chem 7: 04/25/25 05:24 04/25/25 05:24 Labs: Abnormal Lab Results - Last 24 Hours (Table) 04/24/25 04/24/25 04/25/25 Range/Units 15:55 19:39 02:48 WBC (4.50-10.00) 10*3/uL RBC (4.40-5.60) 10*6/uL Hgb (13.0-17.0) g/dL Hct (39.6-50.0) % MCHC (32.0-37.0) g/dL MPV (9.5-12.2) fL Immature Gran # (0.00-0.04) 10*3/uL Neutrophils # (1.80-7.70) 10*3/uL Lymphocytes # (0.90-5.00) 10*3/uL Monocytes # (0.20-1.00) 10*3/uL Eosinophils # (0.04-0.35) 10*3/uL ABG pH 7.22 L (7.35-7.45) ABG pCO2 87 H* (35-45) mmHg ABG HCO3 36 H (21-25) mmol/L ABG Total CO2 39 H (19-24) mmol/L Hemoglobin 11.7 L (13.0-17.5) gm/dL Sodium (137-145) mmol/L Chloride (98-107) mmol/L Carbon Dioxide (22-30) mmol/L Creatinine (0.66-1.25) mg/dL Glucose (74-99) mg/dL POC Glucose (mg/dL) 237 H 186 H (70-110) mg/dL 04/25/25 04/25/25 04/25/25 Range/Units 05:24 05:24 06:48 WBC 10.62 H (4.50-10.00) 10*3/uL RBC 3.73 L (4.40-5.60) 10*6/uL Hgb 10.9 L (13.0-17.0) g/dL Hct 35.2 L (39.6-50.0) % MCHC 31.0 L (32.0-37.0) g/dL MPV 9.2 L (9.5-12.2) fL Immature Gran # 0.49 H (0.00-0.04) 10*3/uL Neutrophils # 8.20 H (1.80-7.70) 10*3/uL Lymphocytes # 0.61 L (0.90-5.00) 10*3/uL Monocytes # 1.27 H (0.20-1.00) 10*3/uL Eosinophils # 0.01 L (0.04-0.35) 10*3/uL ABG pH (7.35-7.45) ABG pCO2 (35-45) mmHg ABG HCO3 (21-25) mmol/L ABG Total CO2 (19-24) mmol/L Hemoglobin (13.0-17.5) gm/dL Sodium 135 L (137-145) mmol/L Chloride 96 L (98-107) mmol/L Carbon Dioxide 37 H (22-30) mmol/L Creatinine 0.25 L (0.66-1.25) mg/dL Glucose 150 H (74-99) mg/dL POC Glucose (mg/dL) 144 H (70-110) mg/dL 04/25/25 Range/Units 11:13 WBC (4.50-10.00) 10*3/uL RBC (4.40-5.60) 10*6/uL Hgb (13.0-17.0) g/dL Hct (39.6-50.0) % MCHC (32.0-37.0) g/dL MPV (9.5-12.2) fL Immature Gran # (0.00-0.04) 10*3/uL Neutrophils # (1.80-7.70) 10*3/uL Lymphocytes # (0.90-5.00) 10*3/uL Monocytes # (0.20-1.00) 10*3/uL Eosinophils # (0.04-0.35) 10*3/uL ABG pH (7.35-7.45) ABG pCO2 (35-45) mmHg ABG HCO3 (21-25) mmol/L ABG Total CO2 (19-24) mmol/L Hemoglobin (13.0-17.5) gm/dL Sodium (137-145) mmol/L Chloride (98-107) mmol/L Carbon Dioxide (22-30) mmol/L Creatinine (0.66-1.25) mg/dL Glucose (74-99) mg/dL POC Glucose (mg/dL) 171 H (70-110) mg/dL
--- NOTE | 2025-04-25 15:03 | P.GSCN ---
History of Present Illness Consult date: 04/25/25 History of present illness: CHIEF COMPLAINT: Spinal cord injury HISTORY OF PRESENT ILLNESS: This is a 65-year-old male who has been hospitalized for 38 days. He presented with weakness and numbness in bilateral legs and that his legs gave out. He was found to have severe spinal cord stenosis and spinal cord injury. He underwent back surgery with Dr. Noyola. He is paralyzed. Able to move arms. Patient has required to be placed on the vent 3 times. He is currently on BiPAP. They are having difficulty getting him off of the BiPAP. His oral intake is poor. Patient remains in the ICU. Surgical service has been consulted for tracheostomy and PEG tube placement. PAST MEDICAL HISTORY: See below PAST SURGICAL HISTORY: See below MEDICATIONS: See below ALLERGIES: See below SOCIAL HISTORY: No illicit drug use. REVIEW OF SYSTEMS: CONSTITUTIONAL: Denies fever or chills. HEENT: Denies blurred vision, vision changes, or eye pain. Denies hemoptysis CARDIOVASCULAR: Denies chest pain or pressure. RESPIRATORY: No shortness of breath. GASTROINTESTINAL: See HPI for pertinent findings HEMATOLOGIC: Denies bleeding disorders. GENITOURINARY: Denies any blood in urine or increased urinary frequency. SKIN: Denies pruitis. Denies rash. PHYSICAL EXAM: VITAL SIGNS: Reviewed GENERAL: Well-developed in no acute distress. HEENT: C-spine collar in place ABDOMEN: Soft. Nondistended. Nontender NEUROLOGIC: Alert and orientated x 3 LABORATORY DATA: WBC 10.62 Hgb 10.9 platelets 345 Sodium is 135 potassium 4.4 creatinine 0.25 Albumin 2.6 IMAGING: ASSESSMENT: 1. Acute hypoxic respiratory failure 2. Spinal cord injury with paralysis at T8 3. Severe protein calorie malnutrition PLAN: - Patient scheduled for tracheostomy and PEG tube placement tomorrow with Dr. Phillips - N.p.o. after midnight - Hold a.m. dose of Lovenox Physician Geospatial Imagery Intelligence Analyst note has been reviewed by physician. Signing provider agrees with the documented findings, assessment, and plan of care. Attestation Patient seen and examined at bedside on 04/25/2025. Presented with chief complaint of spinal cord injury. He has been in the ICU for multiple weeks with being on and off the vent. Currently on BiPAP with difficulty to get off of BiPAP. Case discussed with the patient with recommendation for tracheostomy and PEG tube placement secondary to respiratory failure and poor caloric intake. Patient is agreeable with this plan. Lei Wong DO Past Medical History Past Medical History: Diabetes Mellitus, Hypertension, Sleep Apnea/CPAP/BIPAP Additional Past Medical History / Comment(s): depression History of Any Multi-Drug Resistant Organisms: None Reported Past Surgical History: Appendectomy, Cholecystectomy Additional Past Surgical History / Comment(s): neck surgery, left elbow, Past Anesthesia/Blood Transfusion Reactions: No Reported Reaction Past Psychological History: Depression Smoking Status: Never smoker Past Alcohol Use History: None Reported Past Drug Use History: None Reported Medications and Allergies Home Medications Medication Instructions Recorded Confirmed Type Aspirin EC [Ecotrin Low Dose] 81 mg PO DAILY 02/15/25 03/18/25 History Cetirizine HCl [Zyrtec] 10 mg PO DAILY 02/15/25 03/18/25 History Cholecalciferol (Vitamin D3) 50 mcg PO DAILY 02/15/25 03/18/25 History [Vitamin D3 (50 Mcg = 2000 Iu)] Famotidine 20 mg PO DAILY 02/15/25 03/18/25 History Fluticasone Nasal [place] [Flonase 1 spray EA NOSTRIL DAILY 02/15/25 03/18/25 History Nasal [place]] Ipratropium [place] 0.06%Nasal 1 spray NASAL BID 02/15/25 03/18/25 History [Atrovent Nasal 0.06%] Nortriptyline [Pamelor] 100 mg PO HS 02/15/25 03/18/25 History Pramipexole [Mirapex] 0.25 mg PO HS 02/15/25 03/18/25 History Simvastatin [Zocor] 80 mg PO HS 02/15/25 03/18/25 History Vibegron [Gemtesa] 75 mg PO DAILY 02/15/25 03/18/25 History lisinopriL 40 mg PO DAILY 02/15/25 03/18/25 History EPINEPHrine (Auto Inject) [Epipen] 0.3 mg IM ONCE PRN 03/18/25 03/18/25 History Testosterone Cypionate 200 mg IM Q14D 03/18/25 03/18/25 History [Depo-Testosterone] Vitamin B-12 250mcg 500 mcg PO DAILY 03/18/25 03/18/25 History Acetaminophen Tab [Tylenol] 650 mg PO Q6HR PRN tab 04/24/25 Rx Acetylcysteine [Mucomyst 20%] 200 mg INHALATION RT-QID each 04/24/25 Rx Benzocaine/Menthol Lozeng [Cepacol 1 each MUCOUS MEM Q4HR PRN lozenge 04/24/25 Rx lozenge] Calcium Carbonate [Tums] 1,000 mg PO QID PRN tab 04/24/25 Rx Cyclobenzaprine [Flexeril] 10 mg PO TID PRN tab 04/24/25 Rx Folic Acid 1 mg PO DAILY tab 04/24/25 Rx INSULIN LISPRO (HumaLOG) [HumaLOG] 0 unit SQ ACHS each 04/24/25 Rx Insulin Glargine (Lantus) [Lantus 10 unit SQ DAILY@0700 each 04/24/25 Rx Vial] Ipratropium-Albuterol Nebulize 3 ml INHALATION RT-Q2H PRN each 04/24/25 Rx [Duoneb 0.5 mg-3 mg/3 ml Soln] Ipratropium-Albuterol Nebulize 3 ml INHALATION RT-QID each 04/24/25 Rx [Duoneb 0.5 mg-3 mg/3 ml Soln] Magnesium Hydroxide [Milk of 2,400 mg PO DAILY PRN ml 04/24/25 Rx Magnesia] Melatonin 5 mg PO HS PRN tab 04/24/25 Rx Pantoprazole [Protonix] 40 mg PO AC-BRKFST tab 04/24/25 Rx Piperacillin-Tazobactam [Zosyn] 3.375 gm IVPB Q8HR each 04/24/25 Rx Sennosides-Docusate Sodium 1 each PO DAILY tab 04/24/25 Rx [Senokot-S] Sennosides-Docusate Sodium 2 each PO DAILY PRN tab 04/24/25 Rx [Senokot-S] Tamsulosin [Flomax] 0.4 mg PO PC-BRKFST cap 04/24/25 Rx diazePAM [Valium] 5 mg PO QID PRN tab 04/24/25 Rx guaiFENesin [Mucinex] 1,200 mg PO BID tab 04/24/25 Rx polyethylene glycoL 3350 [Miralax] 17 gm PO HS packet 04/24/25 Rx predniSONE 30 mg PO DAILY tab 04/24/25 Rx Allergies Allergy/AdvReac Type Severity Reaction Status Date / Time bee venom protein (honey bee) Allergy Anaphylaxis Verified 03/18/25 15:55 pollen extracts AdvReac Itching Verified 03/18/25 15:55 Surgical - Exam Osteopathic Statement: *. No significant issues noted on an osteopathic structural exam other than those noted in the History and Physical/Consult. Vital Signs Temp Pulse Resp BP Pulse Ox 98.8 F 88 18 165/97 97 03/18/25 13:22 03/18/25 13:22 03/18/25 13:22 03/18/25 13:22 03/18/25 13:22 Results - Labs 04/26/25 03:41 04/26/25 03:41 Abnormal Lab Results - Last 24 Hours (Table) 04/24/25 04/24/25 04/25/25 Range/Units 15:55 19:39 02:48 WBC (4.50-10.00) 10*3/uL RBC (4.40-5.60) 10*6/uL Hgb (13.0-17.0) g/dL Hct (39.6-50.0) % MCHC (32.0-37.0) g/dL MPV (9.5-12.2) fL Immature Gran # (0.00-0.04) 10*3/uL Neutrophils # (1.80-7.70) 10*3/uL Lymphocytes # (0.90-5.00) 10*3/uL Monocytes # (0.20-1.00) 10*3/uL Eosinophils # (0.04-0.35) 10*3/uL ABG pH 7.22 L (7.35-7.45) ABG pCO2 87 H* (35-45) mmHg ABG HCO3 36 H (21-25) mmol/L ABG Total CO2 39 H (19-24) mmol/L Hemoglobin 11.7 L (13.0-17.5) gm/dL Sodium (137-145) mmol/L Chloride (98-107) mmol/L Carbon Dioxide (22-30) mmol/L Creatinine (0.66-1.25) mg/dL Glucose (74-99) mg/dL POC Glucose (mg/dL) 237 H 186 H (70-110) mg/dL 04/25/25 04/25/25 04/25/25 Range/Units 05:24 05:24 06:48 WBC 10.62 H (4.50-10.00) 10*3/uL RBC 3.73 L (4.40-5.60) 10*6/uL Hgb 10.9 L (13.0-17.0) g/dL Hct 35.2 L (39.6-50.0) % MCHC 31.0 L (32.0-37.0) g/dL MPV 9.2 L (9.5-12.2) fL Immature Gran # 0.49 H (0.00-0.04) 10*3/uL Neutrophils # 8.20 H (1.80-7.70) 10*3/uL Lymphocytes # 0.61 L (0.90-5.00) 10*3/uL Monocytes # 1.27 H (0.20-1.00) 10*3/uL Eosinophils # 0.01 L (0.04-0.35) 10*3/uL ABG pH (7.35-7.45) ABG pCO2 (35-45) mmHg ABG HCO3 (21-25) mmol/L ABG Total CO2 (19-24) mmol/L Hemoglobin (13.0-17.5) gm/dL Sodium 135 L (137-145) mmol/L Chloride 96 L (98-107) mmol/L Carbon Dioxide 37 H (22-30) mmol/L Creatinine 0.25 L (0.66-1.25) mg/dL Glucose 150 H (74-99) mg/dL POC Glucose (mg/dL) 144 H (70-110) mg/dL 04/25/25 Range/Units 11:13 WBC (4.50-10.00) 10*3/uL RBC (4.40-5.60) 10*6/uL Hgb (13.0-17.0) g/dL Hct (39.6-50.0) % MCHC (32.0-37.0) g/dL MPV (9.5-12.2) fL Immature Gran # (0.00-0.04) 10*3/uL Neutrophils # (1.80-7.70) 10*3/uL Lymphocytes # (0.90-5.00) 10*3/uL Monocytes # (0.20-1.00) 10*3/uL Eosinophils # (0.04-0.35) 10*3/uL ABG pH (7.35-7.45) ABG pCO2 (35-45) mmHg ABG HCO3 (21-25) mmol/L ABG Total CO2 (19-24) mmol/L Hemoglobin (13.0-17.5) gm/dL Sodium (137-145) mmol/L Chloride (98-107) mmol/L Carbon Dioxide (22-30) mmol/L Creatinine (0.66-1.25) mg/dL Glucose (74-99) mg/dL POC Glucose (mg/dL) 171 H (70-110) mg/dL Diabetes panel 04/24/25 04/25/25 04/25/25 Range/Units 16:35 05:24 11:40 Sodium 135 L (137-145) mmol/L Potassium 4.0 3.9 4.0 (3.5-5.1) mmol/L Chloride 96 L (98-107) mmol/L Carbon Dioxide 37 H (22-30) mmol/L BUN 11 (9-20) mg/dL Creatinine 0.25 L (0.66-1.25) mg/dL Glucose 150 H (74-99) mg/dL Calcium 9.2 (8.4-10.2) mg/dL Calcium panel 04/25/25 Range/Units 05:24 Calcium 9.2 (8.4-10.2) mg/dL Pituitary panel 04/24/25 04/25/25 04/25/25 Range/Units 16:35 05:24 11:40 Sodium 135 L (137-145) mmol/L Potassium 4.0 3.9 4.0 (3.5-5.1) mmol/L Chloride 96 L (98-107) mmol/L Carbon Dioxide 37 H (22-30) mmol/L BUN 11 (9-20) mg/dL Creatinine 0.25 L (0.66-1.25) mg/dL Glucose 150 H (74-99) mg/dL Calcium 9.2 (8.4-10.2) mg/dL Adrenal panel 06/17/25 06/18/25 06/18/25 Range/Units 16:35 05:24 11:40 Sodium 135 L (137-145) mmol/L Potassium 4.0 3.9 4.0 (3.5-5.1) mmol/L Chloride 96 L (98-107) mmol/L Carbon Dioxide 37 H (22-30) mmol/L BUN 11 (9-20) mg/dL Creatinine 0.25 L (0.66-1.25) mg/dL Glucose 150 H (74-99) mg/dL Calcium 9.2 (8.4-10.2) mg/dL
[2025-04-25] MEDS: SODIUM CHLORIDE 0.9% 500 ML 500 ML IV ONE (15:20)
--- NOTE | 2025-04-25 15:27 | P.PN ---
Progress Note - Text Progress Note Date: 04/25/25 Orthopedic spine: History of present illness: Patient is a very pleasant 65-year-old male who is seen examined at bedside in the ICU for follow-up evaluation of the cervical spine. He is status post posterior cervical decompression discectomy at C7-T1 with extension of fusion from C7 down to T3. He has not had any change in his symptoms from an orthopedic spine standpoint over the weekend. He states he continues to be able to feel his right great toe and today states he feels his other toes in the right foot foot and some sensation over his right foot but not in the youssef or calf area. He does have some increased sensation over his anterior thighs which he states again is greater on the right than the left. He continues to keep his hard cervical collar intact. He was transitioned into his new hard cervical collar. He is not experiencing any cervical pain. He continues with dressing changes as needed. He currently has no significant drainage at the bedside. His surgical site is currently dry. He has good range of motion of his bilateral upper extremities except for his shoulders bilaterally. He is able to make a fist but is weak with his slot key person. He is awake and alert. He is having difficulty with his breathing this morning. He continues have significant difficulty with this bilateral lower extremities. He has some improved numbness around his abdomen towards the groin and some increased sensation over his anterior thighs. He admits to continued sensation in his right great toe. He has no motor function in his lower extremities. His lower extremity symptoms have not improved. He currently has compression stockings and boots intact. Samuels catheter continues to be present after failing a voiding trial. He will be discharged with a catheter intact. He has had further difficulty from a pulmonary standpoint after transitioning out of the ICU to selective care. He is now back in the ICU. He continues to have difficulty with his breathing. He has been seen by general surgery. They are currently planning for tracheostomy and PEG tube placement tomorrow to be performed by Dr. Phillips. Patient is also currently waiting for authorization through the [place] for approval for discharge to spinal cord rehabilitation facility. Nursing states today there is approval for a facility in [place]. He continues to be seen exam by multiple medical providers including pulmonology and medicine. Physical Exam Posterior Cervical Fusion: Status post surgical day number #34 Patient is awake, alert, and oriented 3; patient is answering questions appropriately [employer] Manager strength, thumb strength, interosseous strength, biceps strength, and triceps strength positive sustained bilaterally He is able to shrug his shoulders. Weakness with slot key person bilaterally Hard cervical collar intact Reporting some sensation with palpation over the anterior thighs bilaterally, right greater than left He states he has sensation with palpation over his right great toe and other toes of the right foot and on his foot Pneumatic boots intact bilateral lower extremities Compression stockings intact bilaterally Samuels catheter intact Dressing is dry and intact with a small area of dried blood at the inferior aspect of the incision site of the posterior cervicothoracic surgical site Hard cervical collar is adjusted during physical examination No active drainage from the surgical site Assessment: Spinal cord injury with paralysis at T8 Postoperative day #34: Status post posterior cervical decompression discectomy at C7-T1 with extension of fusion from C7-T3 Bilateral lower extremity paralysis Bilateral lower extremity loss of sensation Acute hypoxic respiratory failure Left-sided atelectasis Obstructive sleep apnea syndrome on CPAP normally Type 2 diabetes Hypotension could be related to sepsis could also be neurogenic post spinal surgery Dyslipidemia Plan: We will continue with our plan as set forth previously. 1. Patient was transferred back to the ICU due to pulmonary status. He is awake, alert, and oriented and answering questions appropriately. He continues to be closely managed from pulmonary standpoint. Currently waiting for insurance authorization from the [place] for approval to discharge to spinal cord rehabilitation facility. [facility] authorization has been approved for a facility in [place]. 2. Patient must keep his hard cervical collar intact at all times. He was transitioned into his new hard cervical collar. Patient may continue with dressing changes as needed at the posterior cervical spine. 3. Patient continues to have flaccid paralysis in his bilateral lower extremities. He has had some increase in sensation around his abdomen towards his groin and admits to some increased sensation over his anterior thighs greater on the right than the left. He continues to have some sensation in his right great toe and does feel some increase sensation over the toes of the right foot and the top of the right foot. He continues to have paralysis.. They should continue with position change regularly to help prevent decubitus issues. 4. When medically stable clear, patient will be planning to be discharged to a spinal cord facility for rehabilitation. Patient may follow-up with Jesu Villarreal PA-C or Dr. Gideon Noyola at [facility] in 2-3 weeks following discharge 5. Patient continues have significant difficulty with his breathing. He has been seen by general surgery who is currently planning for tracheostomy and PEG tube placement tomorrow by Dr. Phillips. Patient is seen and examined at bedside. He is on BiPAP. He was having more difficulty today with his breathing. I appreciate the notes from critical care and surgery. He is scheduled for trach and PEG tube tomorrow. I think he continues to receive appropriate treatment. We have had made significant attempts to stabilize his respiratory status but it continues to repeatedly decline despite appropriate treatment. I think that further intervention is appropriate. We communicated this today at bedside. He seems to understand and agree. His neurologic status not changed and he will continue management and therapy.
[2025-04-25 16:30] LABS: Glucose,Whole Blood 171 mg/dL (70-110)
[2025-04-25 20:46] LABS: Glucose,Whole Blood 145 mg/dL (70-110)
[2025-04-26] MEDS: SODIUM CHLORIDE 0.9% 1,000 ML IV SCH (00:19)
[2025-04-26] MEDS: SODIUM CHLORIDE 0.9% 500 ML 500 ML IV ONE (00:20)
[2025-04-26 04:09] LABS: HCT 32.7 % (39.6-50.0); HGB 10.3 g/dL (13.0-17.0); MCH 29.3 pg (27.0-32.0); MCHC 31.5 g/dL (32.0-37.0); MCV 93.2 fL (80.0-97.0); Platelet Count 329 10*3/uL (140-440); RBC 3.51 10*6/uL (4.40-5.60); RDW 14.5 % (11.5-14.5); WBC 8.72 10*3/uL (4.50-10.00)
[2025-04-26 04:21] LABS: African American GFR (CKD) >90 (>60 ml/min/1.73 sqM); Anion Gap 3 mmol/L; Blood Urea Nitrogen 13 mg/dL (9-20); Calcium 9.1 mg/dL (8.4-10.2); Carbon Dioxide 32 mmol/L (22-30); Chloride 100 mmol/L (98-107); Glucose 121 mg/dL (74-99); Non-African American GFR(CKD) >90 (>60 ml/min/1.73 sqM); Potassium 3.6 mmol/L (3.5-5.1); Sodium 135 mmol/L (137-145)
--- NOTE | 2025-04-26 04:30 | PN ---
PROGRESS NOTE ADDENDUM: This is a 65-year-old male who has now been in the hospital for 38 days. The patient is currently on BiPAP, the settings of 16/8 and 70%. He continues on dexmedetomidine 0.3 mcg/kg/hour. He is getting saline at 10 mL an hour. Blood gases showed pO2 of 93, pCO2 of 87, pH of 7.22. This is prior to being placed back on BiPAP. The patient has done very poorly and has been on and off the ventilator. He has been on and off AIRVO and on and off BiPAP. I think at this time, the patient should benefit from tracheostomy and PEG tube placement. Will ask Surgery to see him. PHYSICAL EXAMINATION: VITAL SIGNS: Unavailable. GENERAL: No acute distress. Currently on BiPAP. HEENT: Grossly unremarkable. BiPAP mask in place. NECK: Supple. Cervical collar in place. CARDIOVASCULAR: Reveals regular rhythm rate. Heart sounds are distant. LUNGS: Reveal scattered rhonchi. Breath sounds are equal. ABDOMEN: Soft. Bowel sounds are not noted. EXTREMITIES: Intact. The patient is paraplegic. Does not move his lower extremities. SKIN: Without rash. NEUROLOGIC: Difficult to assess, but the patient currently does respond appropriately. ASSESSMENT: 1. Status post C-spine fracture and surgical repair. 2. Paraplegia. 3. Chronic respiratory failure on and off mechanical ventilation, AIRVO and BiPAP, now benefitting likely from tracheostomy and PEG tube placement. PLAN: The patient will be seen by Surgery for tracheostomy and PEG tube placement. We discussed this with the patient in the past. He understands that he has done very poorly. Has very poor cough reflex. Could not clear secretions. He has continuation of the total collapse/partial collapse of the left lung. Additional recommendations and suggestions forthcoming. Labs, x-rays, and all medications are reviewed. MMODL / IJN: [id number] /
--- NOTE | 2025-04-26 05:39 | PN ---
PROGRESS NOTE DATE OF SERVICE: 04/25/2025 SUBJECTIVE: The patient is seen today, April 25, 2025, in followup on the intensive care unit. He is currently sitting up in bed. He is on BiPAP 16/8 and 70% FiO2. Blood gases revealed a PO2 of 93, pCO2 of 87, and a pH of 7.22 prior to the BiPAP. He is sedated on Precedex at 0.3 mcg/kg per hour. He has done poorly. He has been here nearly 40 days with recurrent left-sided collapse following C-spine surgery. He has been re- intubated. The next plan is to go for tracheostomy tube placement and PEG tube placement. His chest x-ray, labs, and medications were reviewed. PHYSICAL EXAMINATION: GENERAL: This is a 65-year-old male patient, sitting up in bed, currently on BiPAP, in no acute distress. HEENT: His head is normocephalic. Sclerae are anicteric. NECK: Supple. Hard C-collar remains in place. HEART: Regular, S1 and S2. ABDOMEN: Soft and nontender. Bowel sounds are present. CHEST: Lung sounds are diminished in the left lower base. NEUROLOGIC: Paraplegia. Tone is normal in all 4 extremities. EXTREMITIES: There is trace peripheral edema. No clubbing. No cyanosis. Peripheral pulses are intact. ASSESSMENT: 1. Acute hypoxic respiratory failure, secondary to recurrent left lower lobe lung collapse due to the inability to cough. 2. Status post cervical neck surgery. 3. Paraplegia, secondary to above. PLAN: 1. The patient was seen and evaluated. 2. Chest x-ray, labs, and medications reviewed. 3. The patient has no cough reflex. 4. Inability to clear his own secretions. 5. The plan is for tracheostomy and PEG tube placement. 6. He will need long-term acute care admission for continued rehabilitation. 7. We will continue to follow and make further recommendations based on his clinical status. TIME STATEMENT: The patient was seen and evaluated. The HPI, assessment, and plan of care dictated by Anne King DNP. Time spent was 10 minutes. MMODL / DATN: [id number] /
[2025-04-26 06:47] LABS: Glucose,Whole Blood 123 mg/dL (70-110)
--- NOTE | 2025-04-26 07:43 | XR ---
EXAMINATION TYPE: XR chest 1V portable DATE OF EXAM: 04/26/2025 5:30 AM COMPARISON: 04/25/2025 CLINICAL INDICATION: Male, 65 years old with history of f/u left lower lobe infiltrate, TECHNIQUE: XR chest 1V portable view(s) obtained. FINDINGS: The heart size is normal. The pulmonary vasculature is normal. There is left lower lobe infiltrate. Correlate for pneumonia. Some atelectasis may be present. IMPRESSION: 1. Left lower lobe infiltrate. Correlate for atelectasis and pneumonia. Follow-up recommended. [facility], , 04/26/2025 7:40 AM
[2025-04-26] MEDS: POTASSIUM CHLORIDE ER 20 MEQ TAB.ER PO SCH (08:28)
[2025-04-26] MEDS: predniSONE 20 MG TAB PO SCH (08:28)
--- NOTE | 2025-04-26 10:33 | P.PN ---
Progress Note - Text Progress Note Date: 04/26/25 Orthopedic spine: History of present illness: Patient is a very pleasant 65-year-old male who is seen examined at bedside in the ICU for follow-up evaluation of the cervical spine. He is status post posterior cervical decompression discectomy at C7-T1 with extension of fusion from C7 down to T3. He has not had any change as compared to yesterday. He has not had any change in his symptoms from an orthopedic spine standpoint over the weekend. He states he continues to be able to feel his right great toe and today states he feels his other toes in the right foot foot and some sensation over his right foot but not in the youssef or calf area. He does have some increased sensation over his anterior thighs which he states again is greater on the right than the left. He continues to keep his hard cervical collar intact. He was transitioned into his new hard cervical collar. He is not experiencing any cervical pain. He continues with dressing changes as needed. He currently has no significant drainage at the bedside. His surgical site is currently dry. He has good range of motion of his bilateral upper extremities except for his shoulders bilaterally. He is able to make a fist but is weak with his stationary engineer supervisor. He is awake and alert. He is having difficulty with his breathing this morning. He continues have significant difficulty with this bilateral lower extremities. He has some improved numbness around his abdomen towards the groin and some increased sensation over his anterior thighs. He admits to continued sensation in his right great toe. He has no motor function in his lower extremities. His lower extremity symptoms have not improved. He currently has compression stockings and boots intact. Samuels catheter continues to be present after failing a voiding trial. He will be discharged with a catheter intact. He has had further difficulty from a pulmonary standpoint after transitioning out of the ICU to selective care. He is now back in the ICU. He continues to have difficulty with his breathing. He has been seen by general surgery. They are currently planning for tracheostomy and PEG tube placement today to be performed by Dr. Phillips. Patient is also currently waiting for authorization through the [place] for approval for discharge to spinal cord rehabilitation facility. Nursing states today there is approval for a facility in [place]. He continues to be seen exam by multiple medical providers including pulmonology and medicine. 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 Weakness with stationary engineer supervisor bilaterally Hard cervical collar intact Reporting some sensation with palpation over the anterior thighs bilaterally, right greater than left He states he has sensation with palpation over his right great toe and other toes of the right foot and on his foot Pneumatic boots intact bilateral lower extremities Compression stockings intact bilaterally Samuels catheter intact Dressing is dry and intact with a small area of dried blood at the inferior aspect of the incision site of the posterior cervicothoracic surgical site Hard cervical collar is adjusted during physical examination No active drainage from the surgical site Assessment: Spinal cord injury with paralysis at T8 Postoperative day #35: Status post posterior cervical decompression discectomy at C7-T1 with extension of fusion from C7-T3 Bilateral lower extremity paralysis Bilateral lower extremity loss of sensation Acute hypoxic respiratory failure Left-sided atelectasis Obstructive sleep apnea syndrome on CPAP normally Type 2 diabetes Hypotension could be related to sepsis could also be neurogenic post spinal surgery Dyslipidemia Plan: We will continue with our plan as set forth previously. 1. Patient was transferred back to the ICU due to pulmonary status. He is awake, alert, and oriented and answering questions appropriately. He continues to be closely managed from pulmonary standpoint. Currently [place] from the [place] for [place] to [place] rehabilitation facility. [facility] authorization has been approved for a facility in [place]. 2. Patient must keep his hard cervical collar intact at all times. He was transitioned into his new hard cervical collar. Patient may continue with dressing changes as needed at the posterior cervical spine. 3. Patient continues to have flaccid paralysis in his bilateral lower extremities. He has had some increase in sensation around his abdomen towards his groin and admits to some increased sensation over his anterior thighs greater on the right than the left. He continues to have some sensation in his right great toe and does feel some increase sensation over the toes of the right foot and the top of the right foot. He continues to have paralysis.. They should continue with position change regularly to help prevent decubitus transfer. To a bedside chair when possible. 4. When medically stable clear, patient will be planning to be discharged to a spinal cord facility for rehabilitation. Patient may follow-up with Jesu Villarreal PA-C or Dr. Gideon Noyola at [facility] in 2-3 weeks following discharge 5. Patient continues have significant difficulty with his breathing. He has been seen by general surgery who is currently planning for tracheostomy and PEG tube placement today by Dr. Phillips. Attempted to see the patient today. He is in surgery for his tracheostomy and PEG tube. With the patient in bed and his head supported it is okay to remove the anterior portion of his cervical collar for access to his tracheostomy as needed for nursing. He should use his full cervical collar when sitting up in a chair and when trying to do activity with therapy
[2025-04-26 10:35] LABS: Glucose,Whole Blood 134 mg/dL (70-110)
[2025-04-26] MEDS ORDERED: ROCURONIUM 10 MG/ML (5 ML VIAL) IV ONE (11:20)
[2025-04-26] MEDS ORDERED: PHENYLEPHRINE-0.9% NACL SYG 1,000 MCG/10 ML SYRINGE ONE (11:20)
[2025-04-26] MEDS ORDERED: MIDAZOLAM 2 MG/2 ML VIAL ONE (11:20)
[2025-04-26] MEDS ORDERED: PROPOFOL 10 MG/ML 20 ML VIAL IV ONE (11:20)
[2025-04-26] MEDS: SODIUM CHLORIDE 0.9% 50 ML with ceFAZolin 2,000 MG IV ONE (11:31)
[2025-04-26] MEDS: IV FLUID CONTINUATION 1,000 ML IV ONE (11:31)
[2025-04-26] MEDS: BUPIVACAINE (PF) 0.25% 30 ML VIAL SQ ONE (11:57)
--- NOTE | 2025-04-26 12:15 | P.PN ---
Subjective Progress Note Date: 04/26/25 The patient is seen today April 16, 2025 in follow-up on the selective care unit. He is currently sitting up in bed. Awake and alert in no acute distress. He is maintaining O2 saturation in the low 90s on 4 L/min per nasal cannula. He has been afebrile. Hemodynamically stable. White count 3.8. Hemoglobin 9.8. Platelets 59,000. Sodium 135. Potassium 3.2. Bicarb 30. BUN 15. Creatinine 0.33. Glucose 111. He remains on DuoNeb inhalations. Lovenox for DVT prophylaxis. Remains on a prednisone taper. Awaiting a bed at [facility]. Insurance authorization remains an issue. The patient is seen today April 17, 2025 in follow-up on the selective care unit. He is sitting up in bed. Awake and alert. He is having increasing shortness of breath today with increasing dyspnea. Chest x-ray is again starting to show opacity in the left lung. He continues with a very weak cough. Unable to clear his own secretions. He has been working with respiratory therapy including with the incentive spirometer and flutter valve. He is now requiring 15 L high flow nasal cannula. He has been intolerant to BiPAP. Sodium 135. Potassium 3.8. Bicarb 32. BUN 16. Creatinine 0.40. Glucose 92. He remains on DuoNeb inhalations. Lovenox for DVT prophylaxis. Continued on Mucinex. The patient is seen today April 23, 2025 in follow-up in the intensive care unit. He had again developed respiratory distress while up on the regular medical floor and a near complete whiteout of the left lung. He was placed on BiPAP and showed improvement. Today he is sitting up in a chair. Awake and alert in no acute distress. There is still some left lower lung collapse on the chest x- ray. He remains on Airvo high flow oxygen at 55 L and 75% FiO2 during the day. He is utilizing BiPAP at night 10/15 and 60% FiO2. He remains on Zosyn. He has normal saline at KVO. He attempts to work with the incentive spirometer and the flutter valve but his voice remains weak. His cough remains very weak. He does have paraplegia. He does not even feel subcu injections into the lower abdomen. He remains on DuoNeb inhalations. Receiving chest physiotherapy. Lovenox for DVT prophylaxis. Protonix for GI prophylaxis. The patient is seen today April 24, 2025 in follow-up in the intensive care unit. He is currently sitting up in bed. Awake and alert in no acute distress. He continues to have minimal tolerance for any activity without having shortness of breath and desaturations. His chest x-ray is again showing worsening left lower lobe collapse. He refused to wear the BiPAP last evening. He remains quite anxious about it. He remains on Airvo high flow nasal cannula at 60 L and 80% FiO2. Initial bronch wash cultures from March 26, 2025 was positive for Serratia marcescens. He is currently on Zosyn. White count 8.3. Hemoglobin 10.7. Platelets 339. Sodium 136. Potassium 3.6. Bicarb 29. BUN 13. Creatinine 0.32. Glucose 127. He remains on DuoNeb inhalations, Mucinex, prednisone. Lovenox for DVT prophylaxis. Protonix for GI prophylaxis. The patient is seen today April 26 2025 in follow-up in the intensive care unit. He is awake and alert. Still requiring BiPAP support 16/8 and 50% FiO2 to maintain O2 saturations in the 90s. He has normal saline at 75 mL/h. White count 8.7. Hemoglobin 10.3. Platelets 329. Sodium 135. Potassium 3.6. Bicarb 32. BUN 13. Creatinine 0.31. Glucose 121. Chest x-ray continues to show a left lower lobe infiltrate. He remains on DuoNeb inhalations. Currently sedated on Precedex 0.3 mcg/kg/h. Plan is for tracheostomy and PEG tube placement today. Objective - Vital Signs Vital signs: Vital Signs Temp 98.1 F 04/26/25 08:00 Pulse 80 04/26/25 11:00 Resp 18 04/26/25 11:00 BP 104/64 04/26/25 11:00 Pulse Ox 93 L 04/26/25 11:00 FiO2 50 04/26/25 10:54 Intake & Output 04/25/25 04/26/25 04/26/25 18:59 06:59 18:59 Intake Total 703.998 7779.678 446.522 Output Total 680 430 140 Balance -279.759 811.678 306.522 Weight 101.1 kg Intake: IV 130 1145 390 Sodium Chloride 0.9% 1, 525 300 000 ml @ 75 mls/hr IV . [id number] [facility] Rx#:[id number] Sodium Chloride 0.9% 500 500 ml 500 ml @ 999 mls/hr IV .Q31M [facility] Rx#:[id number] kvo 130 120 40 Intake, IV Titration 270.241 96.678 56.522 Amount Dexmedetomidine/0.9% NaCl 70.241 96.678 56.522 (Pmx) 400 mcg In Empty Bag 1 bag @ 0.2 MCG/KG/HR 5.035 mls/hr IV .[id number] [facility] Rx#:[id number] Potassium Chloride 10 meq 200 In Water For Injection 1 100ml.bag @ 100 mls/hr IVPB Q1H [facility] Rx#: [id number] Output: Urine 680 430 140 Other: Voiding Method Indwelling Catheter Indwelling Catheter Indwelling Catheter - Exam GENERAL EXAM: Alert, very weak 65-year-old male, sitting up in bed, on BiPAP 16/8 and 50% FiO2, in mild respiratory distress. HEAD: Normocephalic. EYES: Normal reaction of pupils, equal size. NOSE: Clear with pink turbinates. THROAT: No erythema or exudates. NECK: Hard c-collar remains in place. No masses, no JVD. CHEST: No chest wall deformity. LUNGS: Equal air entry with few scattered rhonchi. Diminished in the left lung. CVS: S1 and S2 normal with no audible murmur, regular rhythm. ABDOMEN: No hepatosplenomegaly, normal bowel sounds, no guarding or rigidity. SPINE: No scoliosis or deformity SKIN: No rashes CENTRAL NERVOUS SYSTEM: Paraplegia, tone is normal in all 4 extremities. EXTREMITIES: There is no peripheral edema. No clubbing, no cyanosis. Peripheral pulses are intact. - Labs CBC & Chem 7: 04/26/25 03:41 04/26/25 03:41 Labs: Abnormal Lab Results - Last 24 Hours (Table) 04/25/25 04/25/25 04/26/25 Range/Units 16:29 20:44 03:41 RBC 3.51 L (4.40-5.60) 10*6/uL Hgb 10.3 L (13.0-17.0) g/dL Hct 32.7 L (39.6-50.0) % MCHC 31.5 L (32.0-37.0) g/dL MPV 9.1 L (9.5-12.2) fL Sodium (137-145) mmol/L Carbon Dioxide (22-30) mmol/L Creatinine (0.66-1.25) mg/dL Glucose (74-99) mg/dL POC Glucose (mg/dL) 171 H 145 H (70-110) mg/dL 04/26/25 04/26/25 04/26/25 Range/Units 03:41 06:46 10:35 RBC (4.40-5.60) 10*6/uL Hgb (13.0-17.0) g/dL Hct (39.6-50.0) % MCHC (32.0-37.0) g/dL MPV (9.5-12.2) fL Sodium 135 L (137-145) mmol/L Carbon Dioxide 32 H (22-30) mmol/L Creatinine 0.31 L (0.66-1.25) mg/dL Glucose 121 H (74-99) mg/dL POC Glucose (mg/dL) 123 H 134 H (70-110) mg/dL Assessment and Plan Assessment: Acute hypoxic respiratory failure, multifactorial. The patient has developed postoperative atelectasis of the left lower lobe and the patient has significant elevation in volume loss in the left lung compared to the right. Previous bronchoscopy and sputum analysis was positive for Serratia marcescens. Nasal culture is positive for MSSA and the patient completed the course of antibiotics. He has a very weak cough and poor ability to perform pulmonary toileting. He has had several incidences of near complete whiteout of the left lung at times. Chest x-rays have been waxing and waning. Today's x-ray again shows left lower lobe infiltrate. He is currently on BiPAP 16/8 and 50% FiO2 T8 spinal cord injury. The patient has severe spinal canal stenosis at the level of C7/T1 with motor weakness in the lower extremities in addition to myelopathy. The patient is post C7/T1 discectomy with decompression and fusion and the patient also had extension of a previous C2/7 fusion to T3. This was done back on March 21, 2025 Obstructive sleep apnea maintain CPAP therapy on outpatient basis Diabetes mellitus type 2, with steroid-induced hyperglycemia Hypotension, rule out septic versus neurogenic hypotension post spine surgery Sinus tachycardia Hyperlipidemia Seroma in the posterior soft tissues along the length of the skin jarad, spinal surgeries following Bilateral lower extremity weakness, ongoing motor weakness in the lower extremities bilaterally with absent motor function at this point with bilateral foot drop. Patient's sensations in the lower limbs have improved, but now patient is completely paraplegic. T8 p spinal cord injury with motor paralysis lower extremities bilaterally with absent sensation. He does have some feelings in his lower abdomen towards the groin. History of prior cervical fusion C3-C7 History of severe L5-S1 neuroforaminal stenosis Plan: The patient was seen and evaluated Chest x-ray, labs and medications reviewed Currently on BiPAP Encouraged to wear the BiPAP is much as possible Continue chest physiotherapy Continue bronchodilators Continue the incentive spirometer Continue the flutter valve Continue Mucinex Plan is for tracheostomy and PEG tube placement today Will need long-term acute care post discharge I have personally seen and examined the patient, performed the documentation and the assessment and plan as written. Number of minutes spent on the visit: 10 Dictation was produced using [employer] dictation software. Please excuse any grammatical, word or spelling errors.
--- NOTE | 2025-04-26 14:59 | P.PN ---
Subjective Progress Note Date: 04/26/25 Subjective: Patient seen and examined at bedside. Remains on BiPAP. Trach and PEG today Pertinent positives and negatives as discussed above, a complete review of systems was performed and all other systems are negative. Vitals Signs Reviewed. General: Nontoxic, no distress, appears at stated age Derm: Warm, dry Head: Atraumatic, normocephalic, symmetric, c-collar in place Eyes: EOMI, no lid lag, anicteric sclera Mouth: No lip lesion, mucus membranes moist Cardiovascular: S1S2 reg, no murmur Lungs: Reduced breath sounds on the left lower lobe, no accessory muscle use, supplemental oxygen, Bipap Abdominal: Soft, nontender to palpation, no guarding, no appreciable organomegaly Ext: No gross muscle atrophy, no edema, no contractures Neuro: Flaccid paralysis in bilateral lower extremity, reduced sensation below abdomen Psych: Alert, oriented, appropriate affect Data Reviewed Today: Pertinent Labs: WBC 8.72, hemoglobin 10.3, creatinine 0.31, blood sugars range between 121-145 Imaging: Chest x-ray independently interpreted, shows persistent left lower lobe opacity Assessment and Plan: #. Acute hypoxemic and hypercapnic respiratory failure secondary to severe atelectasis and mucous plugging status post bronchoscopy x 2 # Respiratory acidosis #. Healthcare acquired Pneumonia secondary to Serratia and Milagros #. Leukocytosis #. Persistent atelectasis - Remains in ICU on Bipap - Previously extubated on 04/02/25 Continue with steroid taper, decreased prednisone to 20 mg daily today Continue DuoNebs 4 times daily and every 2 hours as needed Meropenem, zosyn and Fluconazole course previously completed Continue with Mucomyst, DuoNebs 4 times daily, every 2 hours as needed Encourage incentive spirometry Aggressive pulmonary toileting Monitor CBC - plan for trach and peg today and then dc to select speciality facility #. Cervical myelopathy secondary to severe spinal canal stenosis involving C7-T1 #. Status post extensive cervical decompression with discectomy at C7-T1 and fusion with extension of fusion from C3-C7 with new extension down to T3 #. Severe right L5-S1 neuroforaminal stenosis #. Moderate bilateral L4-L5 neuroforaminal stenosis Orthopedic surgery following status post extensive cervical decompression with dissecting at C7-T1 and fusion with extension of fusion from C3-C7 with new extension down to T3 Continue Prednisone 20 mg PO daily, will taper Completed course of IV cefazolin Continue neurochecks every 4 hours and as needed. Maintain fall precautions Continue Samuels catheter, patient is retaining Continue Unna boot bilaterally to prevent foot drop PT/OT Social work following with regards to disposition #. Type II [id number]-gmojawavf diabetes mellitus Hyperglycemia likely secondary to high-dose steroids being administered at this time. Improving. -Due to poor oral intake and low blood sugars, Lantus changed to 10 units daily sliding scale insulin, monitor for hypoglycemia #. Bilateral lower extremity edema Bilateral lower extremity Doppler ultrasound negative for DVT #. Hyponatremia Stable, likely in the setting of steroid use Monitor BMP #. Thrombocytopenia, stable, resolved #. normocytic anemia, stable #. Hypomagnesemia, resolved #. Hypokalemia, resolved Hypotension, resolved - Continue to hold antihypertensives Chronic: #. Hypertension #. Hyperlipidemia #. Obstructive sleep apnea #. BPH #. Restless leg syndrome #. Neuropathy DVT ppx: Lovenox Code status: Full code Anticipated discharge place: Pending clinical course Anticipated discharge time: Pending clinical course Objective - Vital Signs Vital signs: Vital Signs Temp 98.1 F 04/26/25 08:00 Pulse 82 04/26/25 14:42 Resp 23 04/26/25 14:42 BP 112/58 04/26/25 14:00 Pulse Ox 91 L 04/26/25 14:00 FiO2 60 04/26/25 14:29 Intake & Output 04/25/25 04/26/25 04/26/25 18:59 06:59 18:59 Intake Total 881.573 7266.678 1131.522 Output Total 680 430 285 Balance -279.759 811.678 846.522 Weight 101.1 kg Intake: IV 130 1145 1075 Sodium Chloride 0.9% 1, 525 375 000 ml @ 75 mls/hr IV . [id number] [facility] Rx#:[id number] Sodium Chloride 0.9% 500 500 ml 500 ml @ 999 mls/hr IV .Q31M [facility] Rx#:[id number] kvo 130 120 50 Intake, IV Titration 270.241 96.678 56.522 Amount Dexmedetomidine/0.9% NaCl 70.241 96.678 56.522 (Pmx) 400 mcg In Empty Bag 1 bag @ 0.2 MCG/KG/HR 5.035 mls/hr IV .[id number] [facility] Rx#:[id number] Potassium Chloride 10 meq 200 In Water For Injection 1 100ml.bag @ 100 mls/hr IVPB Q1H [facility] Rx#: [id number] Output: Urine 680 430 265 Estimated Blood Loss 20 Other: Voiding Method Indwelling Catheter Indwelling Catheter Indwelling Catheter - Labs CBC & Chem 7: 04/26/25 03:41 04/26/25 03:41 Labs: Abnormal Lab Results - Last 24 Hours (Table) 04/25/25 04/25/25 04/26/25 Range/Units 16:29 20:44 03:41 RBC 3.51 L (4.40-5.60) 10*6/uL Hgb 10.3 L (13.0-17.0) g/dL Hct 32.7 L (39.6-50.0) % MCHC 31.5 L (32.0-37.0) g/dL MPV 9.1 L (9.5-12.2) fL Sodium (137-145) mmol/L Carbon Dioxide (22-30) mmol/L Creatinine (0.66-1.25) mg/dL Glucose (74-99) mg/dL POC Glucose (mg/dL) 171 H 145 H (70-110) mg/dL 04/26/25 04/26/25 04/26/25 Range/Units 03:41 06:46 10:35 RBC (4.40-5.60) 10*6/uL Hgb (13.0-17.0) g/dL Hct (39.6-50.0) % MCHC (32.0-37.0) g/dL MPV (9.5-12.2) fL Sodium 135 L (137-145) mmol/L Carbon Dioxide 32 H (22-30) mmol/L Creatinine 0.31 L (0.66-1.25) mg/dL Glucose 121 H (74-99) mg/dL POC Glucose (mg/dL) 123 H 134 H (70-110) mg/dL
[2025-04-26] MEDS: HYDROmorphone 1 MG/ML 1 ML SYRINGE IVP PRN (15:57)
--- NOTE | 2025-04-26 16:59 | P.OP ---
Date of Procedure: 04/26/25 Preoperative Diagnosis: failure to thrive Postoperative Diagnosis: failure to thrive Procedure(s) Performed: Tracheostomy and PEG tube insertion Anesthesia: JEFFERY Surgeon: Fransisco Phillips Pathology: none sent Condition: stable Disposition: ICU Indications for Procedure: failure to thrive Operative Findings: N/A Description of Procedure: Patient was brought to the operating suite where he was cleaned and draped in sterile fashion a timeout was performed and everyone agreed with the information cited next the surgical site was marked out using a marking pen and a vertical incision was made a fingerbreadth above the sternal notch using a #15 blade elec trocautery was then used to dissect down through the dermis, platysma, anterior jugular vein of which we encountered some bleeding this was controlled using combination of suture ligation and electrocautery ligated another anterior jugular vein and then retracted the strap muscles laterally. Next I used a tracheostomy hook to elevate the trachea anteriorly. I then use electrocautery to dissect down through the pretracheal fascia exposing the trachea this was cleaned off using a Ray-Marquis and blunt dissection 2 retained sutures were placed on the lateral edge of the trachea I then made a cruciate incision in the trachea along the 2nd and 3rd ring. A size 8 XLT Shiley tracheostomy tube was placed without difficulty this was secured using multiple 0 silk sutures the patient was found to have tidal volumes of 450/500 the ET tube was removed out of the patient's mouth I then turned my attention to performing the PEG tube insertion and adult size Olympus scope was used to traverse the mouth esophagus and stomach the stomach was then insufflated blotting the left upper quadrant revealed a one-to-one motion I used an empty needle to make sure the colon was not in the way which it was not. I was also able to see the intensity of the light. I then made an incision using a #11 blade and I took an introducer needle and gain access to the stomach quickly. A guidewire was placed and snar ed the guidewire was then removed and the PEG tube was hooked onto this and pulled through the mouth esophagus and stomach and placed. This was found to be at 2-1/2 cm. The PEG tube was secured using a bumper and clamp the adult size Olympus scope was removed out of the patient intact and the patient was transferred back to ICU in stable condition
--- NOTE | 2025-04-26 17:01 | P.PN ---
Progress Note - Text Progress Note Date: 04/26/25 Tracheostomy and PEG tube placed. Okay for meds today which is April 26, 2025. Okay to start tube feeds tomorrow doing April 27 regarding tracheostomy okay to wean to trach mask if able to tolerate. Any questions please call [phone]. Dr. Phillips
[2025-04-26 17:42] LABS: Glucose,Whole Blood 157 mg/dL (70-110)
[2025-04-26 20:04] LABS: Glucose,Whole Blood 158 mg/dL (70-110)
[2025-04-26] MEDS: FORMOTEROL FUMARATE 20 MCG/2 ML NEBU INHALATION SCH (20:19)
[2025-04-26] MEDS: BUDESONIDE 0.5 MG/2 ML NEBU INHALATION SCH (20:19)
[2025-04-26] MEDS: HYDROmorphone 0.5 MG/0.5 ML SYRINGE IVP PRN (23:16)
[2025-04-27 00:12] LABS: Glucose,Whole Blood 116 mg/dL (70-110)
[2025-04-27 05:57] LABS: ABG HCO3 32 mmol/L (21-25); ABG PCO2 46 mmHg (35-45); ABG PH 7.45 (7.35-7.45); ABG PO2 83 mmHg (83-108); ABG TCO2 34 mmol/L (19-24); Allen Test Performed? Yes
[2025-04-27 06:08] LABS: Basophils # (A) 0.02 10*3/uL (0.00-0.10); Basophils % (A) 0.2 %; Eosinophils # (A) 0.01 10*3/uL (0.04-0.35); Eosinophils % (A) 0.1 %; HCT 32.3 % (39.6-50.0); HGB 10.1 g/dL (13.0-17.0); Lymphocytes # (A) 0.63 10*3/uL (0.90-5.00); Lymphocytes % (A) 5.4 %; MCH 29.7 pg (27.0-32.0); MCHC 31.3 g/dL (32.0-37.0); MCV 95.0 fL (80.0-97.0); Monocytes # (A) 1.19 10*3/uL (0.20-1.00); Monocytes % (A) 10.3 %; Neutrophils # (A) 9.22 10*3/uL (1.80-7.70); Neutrophils % (A) 79.6 %; Platelet Count 324 10*3/uL (140-440); RBC 3.40 10*6/uL (4.40-5.60); RDW 14.9 % (11.5-14.5); WBC 11.58 10*3/uL (4.50-10.00)
[2025-04-27 06:17] LABS: Glucose,Whole Blood 60 mg/dL (70-110)
[2025-04-27 06:24] LABS: African American GFR (CKD) >90 (>60 ml/min/1.73 sqM); Anion Gap 6 mmol/L; Blood Urea Nitrogen 11 mg/dL (9-20); Calcium 8.9 mg/dL (8.4-10.2); Carbon Dioxide 31 mmol/L (22-30); Chloride 101 mmol/L (98-107); Glucose 103 mg/dL (74-99); Non-African American GFR(CKD) >90 (>60 ml/min/1.73 sqM); Potassium 2.9 mmol/L (3.5-5.1); Sodium 138 mmol/L (137-145)
[2025-04-27] MEDS: DEXTROSE 50% SYRINGE 50 ML IVP PRN (06:24)
[2025-04-27] MEDS: PANTOPRAZOLE 40 MG/10 ML VIAL IVP SCH (06:25)
[2025-04-27] MEDS: POTASSIUM BICARBONATE/CIT AC 20 MEQ TABLET.EFF NG-TUBE SCH (06:47)
[2025-04-27 06:50] LABS: Glucose,Whole Blood 81 mg/dL (70-110)
--- NOTE | 2025-04-27 07:52 | P.PN ---
Progress Note - Text Progress Note Date: 04/27/25 Patient seen in intensive care unit. He is awake and alert He gives a thumbs up constantly to respond to questions. His tracheostomy is intact as is his PEG. He seems to respond that there is some soreness around the trach site but he is tolerating it adequately His neurologic exam is unchanged and his upper extremities and lower extremities They are going to try a trach collar today and he is cleared to start tube feeding. They are working on transfer to specialty facility to continue his management and rehab occupational therapy and physical therapy He continues to have severe spinal cord injury with paralysis. He is not having any acute improvements or any evidence of declines in his neuro spinal cord injury. I have discussed the permanence of these issues multiple occasions with him and his . He continues to have a strong and positive attitude and continues to put up good effort in his rehab despite his dire prognosis.
--- NOTE | 2025-04-27 08:03 | XR ---
EXAMINATION TYPE: XR chest 1V portable DATE OF EXAM: 04/27/2025 5:51 AM COMPARISON: 04/26/2025 CLINICAL INDICATION: Male, 65 years old with history of mechanical ventilator, TECHNIQUE: XR chest 1V portable views of the chest are obtained. FINDINGS: Demonstrated are scattered senescent parenchymal change. There is no evidence for focal infiltrate. The heart is stable. Hilar and mediastinal structures are within normal limits. Degenerative changes are seen of the dorsal spine. IMPRESSION: 1. Chronic changes without evidence for acute pulmonary disease. [facility], , 04/27/2025 8:01 AM
[2025-04-27] MEDS: CYCLOBENZAPRINE 10 MG TAB PO PRN (08:28)
--- NOTE | 2025-04-27 08:38 | P.PN ---
Subjective Progress Note Date: 04/27/25 Subjective: Patient seen and examined at bedside. Trached and mechanically ventilated, PEG tube in place. Pertinent positives and negatives as discussed above, a complete review of systems was performed and all other systems are negative. Vitals Signs Reviewed. General: Nontoxic, no distress, appears at stated age Derm: Warm, dry Head: Atraumatic, normocephalic, symmetric, c-collar in place Eyes: EOMI, no lid lag, anicteric sclera Mouth: No lip lesion, mucus membranes moist Cardiovascular: S1S2 reg, no murmur Lungs: Reduced breath sounds on the left lower lobe, no accessory muscle use, supplemental oxygen, Bipap Abdominal: Soft, nontender to palpation, no guarding, no appreciable organomegaly Ext: No gross muscle atrophy, no edema, no contractures Neuro: Flaccid paralysis in bilateral lower extremity, reduced sensation below abdomen Psych: Alert, oriented, appropriate affect Data Reviewed Today: Pertinent Labs: WBC 11.58, hemoglobin 10.1, pH 7.45, pCO2 46, potassium 2.9, c reatinine 0.29, blood sugars range between 60-1 03 Imaging: Chest x-ray independently interpreted, shows persistent left lower lobe opacity, slightly improved Assessment and Plan: #. Respiratory failure status post trach #. Acute hypoxemic and hypercapnic respiratory failure secondary to severe at electasis and mucous plugging status post bronchoscopy x 2 # Respiratory acidosis, resolved #. Healthcare acquired Pneumonia secondary to Serratia and Milagros #. Leukocytosis, resolved #. Persistent atelectasis - Remains in ICU, now status post trach and PEG Continue with steroid taper, decreased prednisone to 20 mg daily today Continue DuoNebs 4 times daily and every 2 hours as needed Meropenem, zosyn and Fluconazole course previously completed Continue with Mucomyst, DuoNebs 4 times daily, every 2 hours as needed Encourage incentive spirometry Aggressive pulmonary toileting Monitor CBC - dc to select speciality facility - Will start tube feeds today #. Cervical myelopathy secondary to severe spinal canal stenosis involving C7-T1 #. Status post extensive cervical decompression with discectomy at C7-T1 and fusion with extension of fusion from C3-C7 with new extension down to T3 #. Severe right L5-S1 neuroforaminal stenosis #. Moderate bilateral L4-L5 neuroforaminal stenosis Orthopedic surgery following status post extensive cervical decompression with dissecting at C7-T1 and fusion with extension of fusion from C3-C7 with new extension down to T3 Continue Prednisone 20 mg PO daily, will taper Completed course of IV cefazolin Continue neurochecks every 4 hours and as needed. Maintain fall precautions Continue Samuels catheter, patient is retaining Continue Unna boot bilaterally to prevent foot drop PT/OT Social work following with regards to disposition #. Type II [id number] diabetes mellitus #. Hyperglycemia, resolved - Continue on Lantus 10 units daily, sliding scale insulin, monitor for hypoglycemia - Holding Lantus today due to low blood sugars and not being on tube feeds - Patient currently on IV fluids at 75 cc an hour normal saline #. Bilateral lower extremity edema Bilateral lower extremity Doppler ultrasound negative for DVT #. Hyponatremia Stable, likely in the setting of steroid use Monitor BMP #. Thrombocytopenia, stable, resolved #. normocytic anemia, stable #. Hypomagnesemia, resolved #. Hypokalemia - Being given 60 mill equivalent of oral potassium Hypotension, resolved - Continue to hold antihypertensives Chronic: #. Hypertension #. Hyperlipidemia #. Obstructive sleep apnea #. BPH #. Restless leg syndrome #. Neuropathy DVT ppx: Lovenox Code status: Full code Anticipated discharge place: Pending clinical course Anticipated discharge time: Pending clinical course Objective - Vital Signs Vital signs: Vital Signs Temp 98.0 F 04/27/25 04:00 Pulse 97 04/27/25 07:00 Resp 22 04/27/25 07:00 BP 108/54 04/27/25 07:00 Pulse Ox 96 04/27/25 07:00 FiO2 50 04/27/25 07:00 Intake & Output 04/26/25 04/27/25 04/27/25 18:59 06:59 18:59 Intake Total 5900.270 5137.748 Output Total 725 640 Balance 852.072 513.748 Weight 95.7 kg Intake: IV 1415 985 Sodium Chloride 0.9% 1, 675 975 000 ml @ 75 mls/hr IV . [id number] JUAN LUIS Rx#:[id number] kvo 90 10 Intake, IV Titration 162.072 168.748 Amount Dexmedetomidine/0.9% NaCl 88.370 (Pmx) 400 mcg In Empty Bag 1 bag @ 0.2 MCG/KG/HR 5.035 mls/hr IV .[id number] JUAN LUIS Rx#:[id number] propofoL 1,000 mg In 73.702 168.748 Empty Bag 1 bag @ 15 MCG/ KG/MIN 9.099 mls/hr IV . Q11H JUAN LUIS Rx#:[id number] Output: Urine 705 440 Stool 200 Estimated Blood Loss 20 Other: Voiding Method Indwelling Catheter Indwelling Catheter - Labs CBC & Chem 7: 04/27/25 05:52 04/27/25 05:52 Labs: Abnormal Lab Results - Last 24 Hours (Table) 04/26/25 04/26/25 04/26/25 Range/Units 10:35 17:40 20:03 WBC (4.50-10.00) 10*3/uL RBC (4.40-5.60) 10*6/uL Hgb (13.0-17.0) g/dL Hct (39.6-50.0) % MCHC (32.0-37.0) g/dL MPV (9.5-12.2) fL Immature Gran # (0.00-0.04) 10*3/uL Neutrophils # (1.80-7.70) 10*3/uL Lymphocytes # (0.90-5.00) 10*3/uL Monocytes # (0.20-1.00) 10*3/uL Eosinophils # (0.04-0.35) 10*3/uL ABG pCO2 (35-45) mmHg ABG HCO3 (21-25) mmol/L ABG Total CO2 (19-24) mmol/L ABG O2 Saturation (94-97) % Hemoglobin (13.0-17.5) gm/dL Potassium (3.5-5.1) mmol/L Carbon Dioxide (22-30) mmol/L Creatinine (0.66-1.25) mg/dL Glucose (74-99) mg/dL POC Glucose (mg/dL) 134 H 157 H 158 H (70-110) mg/dL 04/27/25 04/27/25 04/27/25 Range/Units 00:10 05:26 05:52 WBC (4.50-10.00) 10*3/uL RBC (4.40-5.60) 10*6/uL Hgb (13.0-17.0) g/dL Hct (39.6-50.0) % MCHC (32.0-37.0) g/dL MPV (9.5-12.2) fL Immature Gran # (0.00-0.04) 10*3/uL Neutrophils # (1.80-7.70) 10*3/uL Lymphocytes # (0.90-5.00) 10*3/uL Monocytes # (0.20-1.00) 10*3/uL Eosinophils # (0.04-0.35) 10*3/uL ABG pCO2 46 H (35-45) mmHg ABG HCO3 32 H (21-25) mmol/L ABG Total CO2 34 H (19-24) mmol/L ABG O2 Saturation 97.3 H (94-97) % Hemoglobin 10.3 L (13.0-17.5) gm/dL Potassium 2.9 L (3.5-5.1) mmol/L Carbon Dioxide 31 H (22-30) mmol/L Creatinine 0.29 L (0.66-1.25) mg/dL Glucose 103 H (74-99) mg/dL POC Glucose (mg/dL) 116 H (70-110) mg/dL 04/27/25 04/27/25 Range/Units 05:52 06:15 WBC 11.58 H (4.50-10.00) 10*3/uL RBC 3.40 L (4.40-5.60) 10*6/uL Hgb 10.1 L (13.0-17.0) g/dL Hct 32.3 L (39.6-50.0) % MCHC 31.3 L (32.0-37.0) g/dL MPV 9.0 L (9.5-12.2) fL Immature Gran # 0.51 H (0.00-0.04) 10*3/uL Neutrophils # 9.22 H (1.80-7.70) 10*3/uL Lymphocytes # 0.63 L (0.90-5.00) 10*3/uL Monocytes # 1.19 H (0.20-1.00) 10*3/uL Eosinophils # 0.01 L (0.04-0.35) 10*3/uL ABG pCO2 (35-45) mmHg ABG HCO3 (21-25) mmol/L ABG Total CO2 (19-24) mmol/L ABG O2 Saturation (94-97) % Hemoglobin (13.0-17.5) gm/dL Potassium (3.5-5.1) mmol/L Carbon Dioxide (22-30) mmol/L Creatinine (0.66-1.25) mg/dL Glucose (74-99) mg/dL POC Glucose (mg/dL) 60 L (70-110) mg/dL Microbiology - Last 24 Hours (Table) 03/26/25 15:53 Acid Fast Bacilli Smear - Preliminary Bronchoalviolar Lavage - Left Acid Fast Bacilli Culture - Preliminary
[2025-04-27 11:45] LABS: Glucose,Whole Blood 78 mg/dL (70-110)
--- NOTE | 2025-04-27 12:32 | P.PN ---
Subjective Progress Note Date: 04/27/25 The patient is seen today April 16, 2025 in follow-up on the selective care unit. He is currently sitting up in bed. Awake and alert in no acute distress. He is maintaining O2 saturation in the low 90s on 4 L/min per nasal cannula. He has been afebrile. Hemodynamically stable. White count 3.8. Hemoglobin 9.8. Platelets 59,000. Sodium 135. Potassium 3.2. Bicarb 30. BUN 15. Creatinine 0.33. Glucose 111. He remains on DuoNeb inhalations. Lovenox for DVT prophylaxis. Remains on a prednisone taper. Awaiting a bed at [facility]. Insurance authorization remains an issue. The patient is seen today April 17, 2025 in follow-up on the selective care unit. He is sitting up in bed. Awake and alert. He is having increasing shortness of breath today with increasing dyspnea. Chest x-ray is again starting to show opacity in the left lung. He continues with a very weak cough. Unable to clear his own secretions. He has been working with respiratory therapy including with the incentive spirometer and flutter valve. He is now requiring 15 L high flow nasal cannula. He has been intolerant to BiPAP. Sodium 135. Potassium 3.8. Bicarb 32. BUN 16. Creatinine 0.40. Glucose 92. He remains on DuoNeb inhalations. Lovenox for DVT prophylaxis. Continued on Mucinex. The patient is seen today April 23, 2025 in follow-up in the intensive care unit. He had again developed respiratory distress while up on the regular medical floor and a near complete whiteout of the left lung. He was placed on BiPAP and showed improvement. Today he is sitting up in a chair. Awake and alert in no acute distress. There is still some left lower lung collapse on the chest x- ray. He remains on Airvo high flow oxygen at 55 L and 75% FiO2 during the day. He is utilizing BiPAP at night 10/15 and 60% FiO2. He remains on Zosyn. He has normal saline at KVO. He attempts to work with the incentive spirometer and the flutter valve but his voice remains weak. His cough remains very weak. He does have paraplegia. He does not even feel subcu injections into the lower abdomen. He remains on DuoNeb inhalations. Receiving chest physiotherapy. Lovenox for DVT prophylaxis. Protonix for GI prophylaxis. The patient is seen today April 24, 2025 in follow-up in the intensive care unit. He is currently sitting up in bed. Awake and alert in no acute distress. He continues to have minimal tolerance for any activity without having shortness of breath and desaturations. His chest x-ray is again showing worsening left lower lobe collapse. He refused to wear the BiPAP last evening. He remains quite anxious about it. He remains on Airvo high flow nasal cannula at 60 L and 80% FiO2. Initial bronch wash cultures from March 26, 2025 was positive for Serratia marcescens. He is currently on Zosyn. White count 8.3. Hemoglobin 10.7. Platelets 339. Sodium 136. Potassium 3.6. Bicarb 29. BUN 13. Creatinine 0.32. Glucose 127. He remains on DuoNeb inhalations, Mucinex, prednisone. Lovenox for DVT prophylaxis. Protonix for GI prophylaxis. The patient is seen today April 26 2025 in follow-up in the intensive care unit. He is awake and alert. Still requiring BiPAP support 16/8 and 50% FiO2 to maintain O2 saturations in the 90s. He has normal saline at 75 mL/h. White count 8.7. Hemoglobin 10.3. Platelets 329. Sodium 135. Potassium 3.6. Bicarb 32. BUN 13. Creatinine 0.31. Glucose 121. Chest x-ray continues to show a left lower lobe infiltrate. He remains on DuoNeb inhalations. Currently sedated on Precedex 0.3 mcg/kg/h. Plan is for tracheostomy and PEG tube placement today. The patient is seen today April 27, 2025 in follow-up in the intensive care unit. He is currently resting in bed. Sedated on propofol at 25 mcg/kg/min. Normal saline at 75 mL/h. He is on the ventilator currently at a 6 control mode at a rate of 20, tidal volume 400, FiO2 50% and a PEEP of 8. Blood gases revealed a PO2 of 83, PCO2 of 46 and a pH of 7.45. White count 11.5. Hemoglobin 10.1. Platelets 324. Sodium 138. Potassium 2.9. Bicarb 31. BUN 11. Creatinine 0.29. Glucose 103. He remains on DuoNeb inhalations, Pulmicort and Perforomist inhalations, prednisone. Being nourished with vital HP at 10 mL/h with a goal of 40. Tracheostomy and PEG tubes placed yesterday. Objective - Vital Signs Vital signs: Vital Signs Temp 98.8 F 04/27/25 08:00 Pulse 101 H 04/27/25 11:00 Resp 20 04/27/25 11:00 BP 126/59 04/27/25 11:00 Pulse Ox 93 L 04/27/25 11:00 FiO2 50 04/27/25 09:14 Intake & Output 04/26/25 04/27/25 04/27/25 18:59 06:59 18:59 Intake Total 6965.281 1356.748 555.54 Output Total 725 640 135 Balance 852.072 513.748 420.54 Weight 95.7 kg 95.7 kg Intake: IV 1415 985 300 Sodium Chloride 0.9% 1, 675 975 300 000 ml @ 75 mls/hr IV . [id number] JUAN LUIS Rx#:[id number] kvo 90 10 Intake, IV Titration 162.072 168.748 95.54 Amount Dexmedetomidine/0.9% NaCl 88.370 (Pmx) 400 mcg In Empty Bag 1 bag @ 0.2 MCG/KG/HR 5.035 mls/hr IV .[id number] JUAN LUIS Rx#:[id number] propofoL 1,000 mg In 73.702 168.748 95.54 Empty Bag 1 bag @ 15 MCG/ KG/MIN 9.099 mls/hr IV . Q11H JUAN LUIS Rx#:[id number] Other 160 Output: Urine 705 440 135 Stool 200 Estimated Blood Loss 20 Other: Voiding Method Indwelling Catheter Indwelling Catheter # Bowel Movements 1 - Exam GENERAL EXAM: Sedated 65-year-old male, on the mechanical ventilator, in no respiratory distress. HEAD: Normocephalic. EYES: Normal reaction of pupils, equal size. NOSE: Clear with pink turbinates. THROAT: Tracheostomy tube secured in place. No erythema or exudates. NECK: Hard c-collar remains in place. No masses, no JVD. CHEST: No chest wall deformity. LUNGS: Equal air entry with few scattered rhonchi. Diminished in the left lung. CVS: S1 and S2 normal with no audible murmur, regular rhythm. ABDOMEN: PEG tube exit site clean and dry. No hepatosplenomegaly, normal bowel sounds, no guarding or rigidity. SPINE: No scoliosis or deformity SKIN: No rashes CENTRAL NERVOUS SYSTEM: Paraplegia, tone is normal in all 4 extremities. EXTREMITIES: There is no peripheral edema. No clubbing, no cyanosis. Peripheral pulses are intact. - Labs CBC & Chem 7: 04/27/25 05:52 04/27/25 05:52 Labs: Abnormal Lab Results - Last 24 Hours (Table) 04/26/25 04/26/25 04/27/25 Range/Units 17:40 20:03 00:10 WBC (4.50-10.00) 10*3/uL RBC (4.40-5.60) 10*6/uL Hgb (13.0-17.0) g/dL Hct (39.6-50.0) % MCHC (32.0-37.0) g/dL MPV (9.5-12.2) fL Immature Gran # (0.00-0.04) 10*3/uL Neutrophils # (1.80-7.70) 10*3/uL Lymphocytes # (0.90-5.00) 10*3/uL Monocytes # (0.20-1.00) 10*3/uL Eosinophils # (0.04-0.35) 10*3/uL ABG pCO2 (35-45) mmHg ABG HCO3 (21-25) mmol/L ABG Total CO2 (19-24) mmol/L ABG O2 Saturation (94-97) % Hemoglobin (13.0-17.5) gm/dL Potassium (3.5-5.1) mmol/L Carbon Dioxide (22-30) mmol/L Creatinine (0.66-1.25) mg/dL Glucose (74-99) mg/dL POC Glucose (mg/dL) 157 H 158 H 116 H (70-110) mg/dL 04/27/25 04/27/25 04/27/25 Range/Units 05:26 05:52 05:52 WBC 11.58 H (4.50-10.00) 10*3/uL RBC 3.40 L (4.40-5.60) 10*6/uL Hgb 10.1 L (13.0-17.0) g/dL Hct 32.3 L (39.6-50.0) % MCHC 31.3 L (32.0-37.0) g/dL MPV 9.0 L (9.5-12.2) fL Immature Gran # 0.51 H (0.00-0.04) 10*3/uL Neutrophils # 9.22 H (1.80-7.70) 10*3/uL Lymphocytes # 0.63 L (0.90-5.00) 10*3/uL Monocytes # 1.19 H (0.20-1.00) 10*3/uL Eosinophils # 0.01 L (0.04-0.35) 10*3/uL ABG pCO2 46 H (35-45) mmHg ABG HCO3 32 H (21-25) mmol/L ABG Total CO2 34 H (19-24) mmol/L ABG O2 Saturation 97.3 H (94-97) % Hemoglobin 10.3 L (13.0-17.5) gm/dL Potassium 2.9 L (3.5-5.1) mmol/L Carbon Dioxide 31 H (22-30) mmol/L Creatinine 0.29 L (0.66-1.25) mg/dL Glucose 103 H (74-99) mg/dL POC Glucose (mg/dL) (70-110) mg/dL / Range/Units 06:15 WBC (4.50-10.00) 10*3/uL RBC (4.40-5.60) 10*6/uL Hgb (13.0-17.0) g/dL Hct (39.6-50.0) % MCHC (32.0-37.0) g/dL MPV (9.5-12.2) fL Immature Gran # (0.00-0.04) 10*3/uL Neutrophils # (1.80-7.70) 10*3/uL Lymphocytes # (0.90-5.00) 10*3/uL Monocytes # (0.20-1.00) 10*3/uL Eosinophils # (0.04-0.35) 10*3/uL ABG pCO2 (35-45) mmHg ABG HCO3 (21-25) mmol/L ABG Total CO2 (19-24) mmol/L ABG O2 Saturation (94-97) % Hemoglobin (13.0-17.5) gm/dL Potassium (3.5-5.1) mmol/L Carbon Dioxide (22-30) mmol/L Creatinine (0.66-1.25) mg/dL Glucose (74-99) mg/dL POC Glucose (mg/dL) 60 L (70-110) mg/dL Microbiology - Last 24 Hours (Table) 03/26/25 15:53 Acid Fast Bacilli Smear - Preliminary Bronchoalviolar Lavage - Left Acid Fast Bacilli Culture - Preliminary Assessment and Plan Assessment: Acute hypoxic respiratory failure, multifactorial. The patient has developed postoperative atelectasis of the left lower lobe and the patient has significant elevation in volume loss in the left lung compared to the right. Previous bronchoscopy and sputum analysis was positive for Serratia marcescens. Nasal culture is positive for MSSA and the patient completed the course of anti biotics. He has a very weak cough and poor ability to perform pulmonary toileting. He has had several incidences of near complete whiteout of the left lung at times. Chest x-rays have been waxing and waning. Today's x-ray again shows left lower lobe infiltrate. He did undergo tracheostomy tube and PEG tube placement 04/26/2025 T8 spinal cord injury. The patient has severe spinal canal stenosis at the level of C7/T1 with motor weakness in the lower extremities in addition to myelopathy. The patient is post C7/T1 discectomy with decompression and fusion and the patient also had extension of a previous C2/7 fusion to T3. This was done back on March 21, 2025 Obstructive sleep apnea maintain CPAP therapy on outpatient basis Diabetes mellitus type 2, with steroid-induced hyperglycemia Hypotension, rule out septic versus neurogenic hypotension post spine surgery Sinus tachycardia Hyperlipidemia Seroma in the posterior soft tissues along the length of the skin jarad, spinal surgeries following Bilateral lower extremity weakness, ongoing motor weakness in the lower extremities bilaterally with absent motor function at this point with bilateral foot drop. Patient's sensations in the lower limbs have improved, but now patient is completely paraplegic. T8 p spinal cord injury with motor paralysis lower extremities bilaterally with absent sensation. He does have some feelings in his lower abdomen towards the groin. History of prior cervical fusion C3-C7 History of severe L5-S1 neuroforaminal stenosis Plan: The patient was seen and evaluated Chest x-ray, ABGs, labs and medications reviewed Currently on the mechanical ventilator Will give a daily interruption of sedation Continue bronchodilators Initiate tube feedings Continue saline at 75 mL/h Continue Lovenox for DVT prophylaxis Protonix for GI prophylaxis Continue prednisone Will need long-term acute care post discharge We will continue to follow I have personally seen and examined the patient, performed the documentation and the assessment and plan as written. Number of minutes spent on the visit: 15 Dictation was produced using [employer] dictation software. Please excuse any grammatical, word or spelling errors.
--- NOTE | 2025-04-27 17:23 | P.PN ---
Progress Note - Text Progress Note Date: 04/27/25 Patient seen and examined. No acute events overnight. Tolerating trickle feeds. No issues with tracheostomy per nursing. VSS General-Sedated Neck-Tracheostomy site C/D/I Abdomen-soft, NTND, gastrostomy tube in place. 65 year old male POD #1 Tracheostomy and EGD with PEG Tube Insertion -Advance Tube Feeds to goal as tolerated -ICU care Ramy Wilkerson DO [facility] [phone]
[2025-04-27 18:12] LABS: Glucose,Whole Blood 113 mg/dL (70-110)
[2025-04-27 21:54] LABS: Glucose,Whole Blood 92 mg/dL (70-110)
[2025-04-28 00:18] LABS: Glucose,Whole Blood 105 mg/dL (70-110)
[2025-04-28 06:04] LABS: Glucose,Whole Blood 97 mg/dL (70-110)
[2025-04-28 06:08] LABS: ABG HCO3 33 mmol/L (21-25); ABG PCO2 46 mmHg (35-45); ABG PH 7.46 (7.35-7.45); ABG PO2 73 mmHg (83-108); ABG TCO2 34 mmol/L (19-24); Allen Test Performed? Yes
--- NOTE | 2025-04-28 06:44 | XR ---
EXAMINATION TYPE: XR chest 1V portable DATE OF EXAM: 04/28/2025 COMPARISON: 04/27/2025 CLINICAL INDICATION: Male, 65 years old with history of Trach and mechanical ventilated; TECHNIQUE: Single frontal view of the chest is obtained. FINDINGS: There is a tracheostomy tube unchanged in position. There are postsurgical changes of fusion of the c ervical and upper thoracic spine. There is been interval increase in the retrocardiac opacity.. There has been interval development of small bilateral pleural effusions. There is no pneumothorax. Heart and pulmonary vasculature are normal. IMPRESSION: 1. Interval increase in the retrocardiac opacity possibly pneumonia or atelectasis. 2. Interval development of small bilateral pleural effusions. [facility], , 04/28/2025 6:41 AM
[2025-04-28 07:12] LABS: Basophils # (A) 0.04 10*3/uL (0.00-0.10); Basophils % (A) 0.3 %; Eosinophils # (A) 0.01 10*3/uL (0.04-0.35); Eosinophils % (A) 0.1 %; HCT 30.8 % (39.6-50.0); HGB 10.0 g/dL (13.0-17.0); Lymphocytes # (A) 0.79 10*3/uL (0.90-5.00); Lymphocytes % (A) 6.5 %; MCH 30.8 pg (27.0-32.0); MCHC 32.5 g/dL (32.0-37.0); MCV 94.8 fL (80.0-97.0); Monocytes # (A) 1.23 10*3/uL (0.20-1.00); Monocytes % (A) 10.1 %; Neutrophils # (A) 9.36 10*3/uL (1.80-7.70); Neutrophils % (A) 76.7 %; Platelet Count 289 10*3/uL (140-440); RBC 3.25 10*6/uL (4.40-5.60); RDW 14.8 % (11.5-14.5); WBC 12.20 10*3/uL (4.50-10.00)
[2025-04-28 07:38] LABS: ALT 24 U/L (4-49); AST 17 U/L (17-59); African American GFR (CKD) >90 (>60 ml/min/1.73 sqM); Albumin 2.2 g/dL (3.5-5.0); Alkaline Phosphatase 54 U/L (38-126); Anion Gap 5 mmol/L; Blood Urea Nitrogen 7 mg/dL (9-20); Calcium 8.1 mg/dL (8.4-10.2); Carbon Dioxide 28 mmol/L (22-30); Chloride 102 mmol/L (98-107); Glucose 101 mg/dL (74-99); Non-African American GFR(CKD) >90 (>60 ml/min/1.73 sqM); Potassium 3.0 mmol/L (3.5-5.1); Sodium 135 mmol/L (137-145); Total Protein 4.5 g/dL (6.3-8.2)
[2025-04-28] MEDS: POTASSIUM BICARBONATE/CIT AC 20 MEQ TABLET.EFF NG-TUBE SCH (08:33)
--- NOTE | 2025-04-28 09:58 | P.PN ---
Progress Note - Text Progress Note Date: 04/28/25 Patient seen in intensive care unit. He is currently on CPAP. Sleeping but wakes up easily. He gives a thumbs up constantly to respond to questions. His tracheostomy is intact as is his PEG. His neurologic exam is unchanged and his upper extremities and lower extremities Nursing states there is a small area open on his incision still, draining a brown fluid. No signs of infection. Continue to change dressing daily. They are working on transfer to specialty facility to continue his management and rehab occupational therapy and physical therapy.
--- NOTE | 2025-04-28 10:27 | P.PN ---
Subjective Progress Note Date: 04/28/25 The patient is seen today April 16, 2025 in follow-up on the selective care unit. He is currently sitting up in bed. Awake and alert in no acute distress. He is maintaining O2 saturation in the low 90s on 4 L/min per nasal cannula. He has been afebrile. Hemodynamically stable. White count 3.8. Hemoglobin 9.8. Platelets 59,000. Sodium 135. Potassium 3.2. Bicarb 30. BUN 15. Creatinine 0.33. Glucose 111. He remains on DuoNeb inhalations. Lovenox for DVT prophylaxis. Remains on a prednisone taper. Awaiting a bed at . Insurance authorization remains an issue. The patient is seen today April 17, 2025 in follow-up on the selective care unit. He is sitting up in bed. Awake and alert. He is having increasing shortness of breath today with increasing dyspnea. Chest x-ray is again starting to show opacity in the left lung. He continues with a very weak cough. Unable to clear his own secretions. He has been working with respiratory therapy including with the incentive spirometer and flutter valve. He is now requiring 15 L high flow nasal cannula. He has been intolerant to BiPAP. Sodium 135. Potassium 3.8. Bicarb 32. BUN 16. Creatinine 0.40. Glucose 92. He remains on DuoNeb inhalations. Lovenox for DVT prophylaxis. Continued on Mucinex. The patient is seen today April 23, 2025 in follow-up in the intensive care unit. He had again developed respiratory distress while up on the regular medical floor and a near complete whiteout of the left lung. He was placed on BiPAP and showed improvement. Today he is sitting up in a chair. Awake and alert in no acute distress. There is still some left lower lung collapse on the chest x- ray. He remains on Airvo high flow oxygen at 55 L and 75% FiO2 during the day. He is utilizing BiPAP at night 10/15 and 60% FiO2. He remains on Zosyn. He has normal saline at KVO. He attempts to work with the incentive spirometer and the flutter valve but his voice remains weak. His cough remains very weak. He does have paraplegia. He does not even feel subcu injections into the lower abdomen. He remains on DuoNeb inhalations. Receiving chest physiotherapy. Lovenox for DVT prophylaxis. Protonix for GI prophylaxis. The patient is seen today April 24, 2025 in follow-up in the intensive care unit. He is currently sitting up in bed. Awake and alert in no acute distress. He continues to have minimal tolerance for any activity without having shortness of breath and desaturations. His chest x-ray is again showing worsening left lower lobe collapse. He refused to wear the BiPAP last evening. He remains quite anxious about it. He remains on Airvo high flow nasal cannula at 60 L and 80% FiO2. Initial bronch wash cultures from March 26, 2025 was positive for Serratia marcescens. He is currently on Zosyn. White count 8.3. Hemoglobin 10.7. Platelets 339. Sodium 136. Potassium 3.6. Bicarb 29. BUN 13. Creatinine 0.32. Glucose 127. He remains on DuoNeb inhalations, Mucinex, prednisone. Lovenox for DVT prophylaxis. Protonix for GI prophylaxis. The patient is seen today April 26 2025 in follow-up in the intensive care unit. He is awake and alert. Still requiring BiPAP support 16/8 and 50% FiO2 to maintain O2 saturations in the 90s. He has normal saline at 75 mL/h. White count 8.7. Hemoglobin 10.3. Platelets 329. Sodium 135. Potassium 3.6. Bicarb 32. BUN 13. Creatinine 0.31. Glucose 121. Chest x-ray continues to show a left lower lobe infiltrate. He remains on DuoNeb inhalations. Currently sedated on Precedex 0.3 mcg/kg/h. Plan is for tracheostomy and PEG tube placement today. The patient is seen today April 27, 2025 in follow-up in the intensive care unit. He is currently resting in bed. Sedated on propofol at 25 mcg/kg/min. Normal saline at 75 mL/h. He is on the ventilator currently at a 6 control mode at a rate of 20, tidal volume 400, FiO2 50% and a PEEP of 8. Blood gases revealed a PO2 of 83, PCO2 of 46 and a pH of 7.45. White count 11.5. Hemoglobin 10.1. Platelets 324. Sodium 138. Potassium 2.9. Bicarb 31. BUN 11. Creatinine 0.29. Glucose 103. He remains on DuoNeb inhalations, Pulmicort and Perforomist inhalations, prednisone. Being nourished with vital HP at 10 mL/h with a goal of 40. Tracheostomy and PEG tubes placed yesterday. The patient is seen today April 28, 2025 in follow-up in the intensive care unit. He remains on mechanical ventilator via tracheostomy tube and assist-control mo de at a rate of 20, tidal volume 400, FiO2 40% and a PEEP of 8. Morning blood gases revealed a PO2 of 73, [id number] and a pH of 7.46. He is sedated lightly on propofol at 10 mcg/kg/min. Normal saline at 75 mL/h. Being nourished via PEG tube with vital HP at 30 mL/h with a goal of 40 mL/h. Chest x-ray reveals retrocardiac opacity and small bilateral pleural effusions. White count 12.2. Hemoglobin 10.0. Platelets 289. Sodium 135. Potassium 3.0. Bicarb 28. BUN 7. Creatinine 0.21. Glucose 101. He remains on DuoNeb inhalations, Pulmicort and Perforomist inhalations, prednisone taper. Lovenox for DVT prophylaxis. Protonix for GI prophylaxis. Objective - Vital Signs Vital signs: Vital Signs Temp 98 F 04/28/25 08:00 Pulse 95 04/28/25 10:00 Resp 21 04/28/25 10:00 BP 114/59 04/28/25 10:00 Pulse Ox 85 L 04/28/25 10:00 FiO2 60 04/28/25 10:04 Intake & Output 04/27/25 04/28/25 04/28/25 18:59 06:59 18:59 Intake Total 5660.677 4137.860 628.587 Output Total 430 570 300 Balance 826.333 620.860 328.587 Weight 95.7 kg 96.1 kg Intake: IV 825 900 300 Sodium Chloride 0.9% 1, 825 900 300 000 ml @ 75 mls/hr IV . [id number] [facility] Rx#:[id number] Intake, IV Titration 191.333 170.860 58.587 Amount propofoL 1,000 mg In 191.333 170.860 58.587 Empty Bag 1 bag @ 15 MCG/ KG/MIN 9.099 mls/hr IV . Q11H [facility] Rx#:[id number] Tube Feeding 50 120 100 Other 190 170 Output: Urine 430 570 300 Other: Voiding Method Indwelling Catheter Indwelling Catheter Indwelling Catheter # Bowel Movements 1 - Exam GENERAL EXAM: Sedated 65-year-old male, on the mechanical ventilator, comfortable in no respiratory distress. HEAD: Normocephalic. EYES: Normal reaction of pupils, equal size. NOSE: Clear with pink turbinates. THROAT: Tracheostomy tube secured in place. No erythema or exudates. NECK: Hard c-collar remains in place. No masses, no JVD. CHEST: No chest wall deformity. LUNGS: Equal air entry with few scattered rhonchi. Diminished in the left lung. CVS: S1 and S2 normal with no audible murmur, regular rhythm. ABDOMEN: PEG tube exit site clean and dry. No hepatosplenomegaly, normal bowel sounds, no guarding or rigidity. SPINE: No scoliosis or deformity SKIN: No rashes CENTRAL NERVOUS SYSTEM: Paraplegia, tone is normal in all 4 extremities. EXTREMITIES: There is no peripheral edema. No clubbing, no cyanosis. Peripheral pulses are intact. - Labs CBC & Chem 7: 04/28/25 06:53 04/28/25 06:53 Labs: Abnormal Lab Results - Last 24 Hours (Table) 04/27/25 04/28/25 04/28/25 Range/Units 18:11 06:05 06:53 WBC 12.20 H (4.50-10.00) 10*3/uL RBC 3.25 L (4.40-5.60) 10*6/uL Hgb 10.0 L (13.0-17.0) g/dL Hct 30.8 L (39.6-50.0) % MPV 9.3 L (9.5-12.2) fL Immature Gran # 0.77 H (0.00-0.04) 10*3/uL Neutrophils # 9.36 H (1.80-7.70) 10*3/uL Lymphocytes # 0.79 L (0.90-5.00) 10*3/uL Monocytes # 1.23 H (0.20-1.00) 10*3/uL Eosinophils # 0.01 L (0.04-0.35) 10*3/uL ABG pH 7.46 H (7.35-7.45) ABG pCO2 46 H (35-45) mmHg ABG pO2 73 L (83-108) mmHg ABG HCO3 33 H (21-25) mmol/L ABG Total CO2 34 H (19-24) mmol/L Hemoglobin 9.4 L (13.0-17.5) gm/dL Sodium (137-145) mmol/L Potassium (3.5-5.1) mmol/L BUN (9-20) mg/dL Creatinine (0.66-1.25) mg/dL Glucose (74-99) mg/dL POC Glucose (mg/dL) 113 H (70-110) mg/dL Calcium (8.4-10.2) mg/dL Total Protein (6.3-8.2) g/dL Albumin (3.5-5.0) g/dL 04/28/25 Range/Units 06:53 WBC (4.50-10.00) 10*3/uL RBC (4.40-5.60) 10*6/uL Hgb (13.0-17.0) g/dL Hct (39.6-50.0) % MPV (9.5-12.2) fL Immature Gran # (0.00-0.04) 10*3/uL Neutrophils # (1.80-7.70) 10*3/uL Lymphocytes # (0.90-5.00) 10*3/uL Monocytes # (0.20-1.00) 10*3/uL Eosinophils # (0.04-0.35) 10*3/uL ABG pH (7.35-7.45) ABG pCO2 (35-45) mmHg ABG pO2 (83-108) mmHg ABG HCO3 (21-25) mmol/L ABG Total CO2 (19-24) mmol/L Hemoglobin (13.0-17.5) gm/dL Sodium 135 L (137-145) mmol/L Potassium 3.0 L (3.5-5.1) mmol/L BUN 7 L (9-20) mg/dL Creatinine 0.21 L (0.66-1.25) mg/dL Glucose 101 H (74-99) mg/dL POC Glucose (mg/dL) (70-110) mg/dL Calcium 8.1 L (8.4-10.2) mg/dL Total Protein 4.5 L (6.3-8.2) g/dL Albumin 2.2 L (3.5-5.0) g/dL Assessment and Plan Assessment: Acute hypoxic respiratory failure, multifactorial. The patient has developed postoperative atelectasis of the left lower lobe and the patient has significant elevation in volume loss in the left lung compared to the right. Previous bronchoscopy and sputum analysis was positive for Serratia marcescens. Nasal culture is positive for MSSA and the patient completed the course of antibiotics. He has a very weak cough and poor ability to perform pulmonary toileting. He has had several incidences of near complete whiteout of the left lung at times. Chest x-rays have been waxing and waning. Today's x-ray again shows left lower lobe infiltrate. He did undergo tracheostomy tube and PEG tube placement 04/26/2025 T8 spinal cord injury. The patient has severe spinal canal stenosis at the level of C7/T1 with motor weakness in the lower extremities in addition to myelopathy. The patient is post C7/T1 discectomy with decompression and fusion and the patient also had extension of a previous C2/7 fusion to T3. This was done back on March 21, 2025 Obstructive sleep apnea maintain CPAP therapy on outpatient basis Diabetes mellitus type 2, with steroid-induced hyperglycemia Hypotension, rule out septic versus neurogenic hypotension post spine surgery Sinus tachycardia Hyperlipidemia Seroma in the posterior soft tissues along the length of the skin jarad, spinal surgeries following Bilateral lower extremity weakness, ongoing motor weakness in the lower extremities bilaterally with absent motor function at this point with bilateral foot drop. Patient's sensations in the lower limbs have improved, but now patient is completely paraplegic. T8 p spinal cord injury with motor paralysis lower extremities bilaterally with absent sensation. He does have some feelings in his lower abdomen towards the groin. History of prior cervical fusion C3-C7 History of severe L5-S1 neuroforaminal stenosis Plan: The patient was seen and evaluated Chest x-ray, ABGs, labs and medications reviewed Currently on the mechanical ventilator We will give a daily interruption of sedation We will give a weaning trial of pressure support of 10 and CPAP Continue bronchodilators Continue tube feedings Continue saline at 75 mL/h Continue Lovenox for DVT prophylaxis Protonix for GI prophylaxis Continue prednisone Will need long-term acute care post discharge We will continue to follow I have personally seen and examined the patient, performed the documentation and the assessment and plan as written. Number of minutes spent on the visit: 15 Dictation was produced using [employer] dictation software. Please excuse any grammatical, word or spelling errors.
--- NOTE | 2025-04-28 11:32 | P.PN ---
Progress Note - Text Progress Note Date: 04/28/25 Patient seen and examined. No acute events overnight. Tube feeds running at 30 cc/hr without issue. No issues with tracheostomy per nursing. VSS General-Sedated Neck-Tracheostomy site C/D/I Abdomen-soft, NTND, gastrostomy tube in place. 65 year old male POD #2 Tracheostomy and EGD with PEG Tube Insertion -Advance Tube Feeds to goal as tolerated -ICU care Ramy Wilkerson DO [facility] [phone]
[2025-04-28 11:57] LABS: Glucose,Whole Blood 121 mg/dL (70-110)
--- NOTE | 2025-04-28 12:46 | P.PN ---
Subjective Progress Note Date: 04/28/25 Subjective: Patient seen and examined at bedside. Trached and mechanically ventilated, PEG tube in place. Will attempt CPAP trial again today. Yesterday he was desatting, required mechanical ventilation again. Pertinent positives and negatives as discussed above, a complete review of systems was performed and all other systems are negative. Vitals Signs Reviewed. General: Nontoxic, no distress, appears at stated age Derm: Warm, dry Head: Atraumatic, normocephalic, symmetric, c-collar in place Eyes: EOMI, no lid lag, anicteric sclera Mouth: No lip lesion, mucus membranes moist Cardiovascular: S1S2 reg, no murmur Lungs: Reduced breath sounds on the left lower lobe, no accessory muscle use, supplemental oxygen, Bipap Abdominal: Soft, nontender to palpation, no guarding, no appreciable organomegaly Ext: No gross muscle atrophy, no edema, no contractures Neuro: Flaccid paralysis in bilateral lower extremity, reduced sensation below abdomen Psych: Alert, oriented, appropriate affect Data Reviewed Today: Pertinent Labs: WBC 12.2, hemoglobin 10, pH 7.46, [id number], potassium 3, c reatinine 0.21, blood sugars range between 97-1 21 Imaging: Chest x-ray independently interpreted, shows persistent left lower lobe opacity, slightly improved Assessment and Plan: #. Respiratory failure status post trach #. Acute hypoxemic and hypercapnic respiratory failure secondary to severe at electasis and mucous plugging status post bronchoscopy x 2 # Respiratory acidosis, resolved #. Healthcare acquired Pneumonia secondary to Serratia and Milagros #. Leukocytosis, resolved #. Persistent atelectasis - Remains in ICU, now status post trach and PEG Continue with steroid taper, on prednisone 20 mg daily today Continue DuoNebs 4 times daily and every 2 hours as needed Meropenem, zosyn and Fluconazole course previously completed Continue with Mucomyst, DuoNebs 4 times daily, every 2 hours as needed Encourage incentive spirometry Aggressive pulmonary toileting Monitor CBC - dc to select speciality facility - Tube feeds via PEG tube #. Cervical myelopathy secondary to severe spinal canal stenosis involving C7-T1 #. Status post extensive cervical decompression with discectomy at C7-T1 and fusion with extension of fusion from C3-C7 with new extension down to T3 #. Severe right L5-S1 neuroforaminal stenosis #. Moderate bilateral L4-L5 neuroforaminal stenosis Orthopedic surgery following status post extensive cervical decompression with dissecting at C7-T1 and fusion with extension of fusion from C3-C7 with new extension down to T3 Continue Prednisone 20 mg PO daily, will taper Completed course of IV cefazolin Continue neurochecks every 4 hours and as needed. Maintain fall precautions Continue Samuels catheter, patient is retaining Continue Unna boot bilaterally to prevent foot drop PT/OT Social work following with regards to disposition #. Type II mex-[id number] diabetes mellitus #. Hyperglycemia, resolved - Lantus decreased to 5 units daily, sliding scale insulin, monitor for hypoglycemia - Holding Lantus today due to low blood sugars and not being on tube feeds - Patient currently on IV fluids at 75 cc an hour normal saline, discontinue once tube feeds at goal #. Bilateral lower extremity edema Bilateral lower extremity Doppler ultrasound negative for DVT #. Hyponatremia Stable, likely in the setting of steroid use Monitor BMP #. Thrombocytopenia, stable, resolved #. normocytic anemia, stable #. Hypomagnesemia, resolved #. Hypokalemia - Being given 40 mill equivalent of oral potassium Hypotension, resolved - Continue to hold antihypertensives Chronic: #. Hypertension #. Hyperlipidemia #. Obstructive sleep apnea #. BPH #. Restless leg syndrome #. Neuropathy DVT ppx: Lovenox Code status: Full code Anticipated discharge place: Pending clinical course Anticipated discharge time: Pending clinical course Objective - Vital Signs Vital signs: Vital Signs Temp 98 F 04/28/25 08:00 Pulse 99 04/28/25 12:07 Resp 24 04/28/25 11:00 BP 113/52 04/28/25 11:00 Pulse Ox 93 L 04/28/25 11:00 FiO2 50 04/28/25 11:58 Intake & Output 04/27/25 04/28/25 04/28/25 18:59 06:59 18:59 Intake Total 8335.147 4375.860 742.939 Output Total 430 570 340 Balance 826.333 620.860 402.939 Weight 95.7 kg 96.1 kg Intake: IV 825 900 375 Sodium Chloride 0.9% 1, 825 900 375 000 ml @ 75 mls/hr IV . [id number] [facility] Rx#:[id number] Intake, IV Titration 191.333 170.860 67.939 Amount propofoL 1,000 mg In 191.333 170.860 67.939 Empty Bag 1 bag @ 15 MCG/ KG/MIN 9.099 mls/hr IV . Q11H [facility] Rx#:[id number] Tube Feeding 50 120 130 Other 190 170 Output: Urine 430 570 340 Other: Voiding Method Indwelling Catheter Indwelling Catheter Indwelling Catheter # Bowel Movements 1 - Labs CBC & Chem 7: 04/28/25 06:53 04/28/25 06:53 Labs: Abnormal Lab Results - Last 24 Hours (Table) 04/27/25 04/28/25 04/28/25 Range/Units 18:11 06:05 06:53 WBC 12.20 H (4.50-10.00) 10*3/uL RBC 3.25 L (4.40-5.60) 10*6/uL Hgb 10.0 L (13.0-17.0) g/dL Hct 30.8 L (39.6-50.0) % MPV 9.3 L (9.5-12.2) fL Immature Gran # 0.77 H (0.00-0.04) 10*3/uL Neutrophils # 9.36 H (1.80-7.70) 10*3/uL Lymphocytes # 0.79 L (0.90-5.00) 10*3/uL Monocytes # 1.23 H (0.20-1.00) 10*3/uL Eosinophils # 0.01 L (0.04-0.35) 10*3/uL ABG pH 7.46 H (7.35-7.45) ABG pCO2 46 H (35-45) mmHg ABG pO2 73 L (83-108) mmHg ABG HCO3 33 H (21-25) mmol/L ABG Total CO2 34 H (19-24) mmol/L Hemoglobin 9.4 L (13.0-17.5) gm/dL Sodium (137-145) mmol/L Potassium (3.5-5.1) mmol/L BUN (9-20) mg/dL Creatinine (0.66-1.25) mg/dL Glucose (74-99) mg/dL POC Glucose (mg/dL) 113 H (70-110) mg/dL Calcium (8.4-10.2) mg/dL Total Protein (6.3-8.2) g/dL Albumin (3.5-5.0) g/dL 04/28/25 04/28/25 Range/Units 06:53 11:55 WBC (4.50-10.00) 10*3/uL RBC (4.40-5.60) 10*6/uL Hgb (13.0-17.0) g/dL Hct (39.6-50.0) % MPV (9.5-12.2) fL Immature Gran # (0.00-0.04) 10*3/uL Neutrophils # (1.80-7.70) 10*3/uL Lymphocytes # (0.90-5.00) 10*3/uL Monocytes # (0.20-1.00) 10*3/uL Eosinophils # (0.04-0.35) 10*3/uL ABG pH (7.35-7.45) ABG pCO2 (35-45) mmHg ABG pO2 (83-108) mmHg ABG HCO3 (21-25) mmol/L ABG Total CO2 (19-24) mmol/L Hemoglobin (13.0-17.5) gm/dL Sodium 135 L (137-145) mmol/L Potassium 3.0 L (3.5-5.1) mmol/L BUN 7 L (9-20) mg/dL Creatinine 0.21 L (0.66-1.25) mg/dL Glucose 101 H (74-99) mg/dL POC Glucose (mg/dL) 121 H (70-110) mg/dL Calcium 8.1 L (8.4-10.2) mg/dL Total Protein 4.5 L (6.3-8.2) g/dL Albumin 2.2 L (3.5-5.0) g/dL
[2025-04-28] MEDS: INSULIN LISPRO (HumaLOG) 100 UNIT/ML 10 mL VL SQ SCH (13:17)
[2025-04-28 18:30] LABS: Glucose,Whole Blood 190 mg/dL (70-110)
[2025-04-29 00:12] LABS: Glucose,Whole Blood 166 mg/dL (70-110)
[2025-04-29 03:38] LABS: HCT 28.2 % (39.6-50.0); HGB 9.0 g/dL (13.0-17.0); MCH 29.9 pg (27.0-32.0); MCHC 31.9 g/dL (32.0-37.0); MCV 93.7 fL (80.0-97.0); Platelet Count 335 10*3/uL (140-440); RBC 3.01 10*6/uL (4.40-5.60); RDW 14.6 % (11.5-14.5); WBC 12.60 10*3/uL (4.50-10.00)
[2025-04-29 03:56] LABS: ALT 23 U/L (4-49); AST 20 U/L (17-59); African American GFR (CKD) >90 (>60 ml/min/1.73 sqM); Albumin 2.1 g/dL (3.5-5.0); Alkaline Phosphatase 59 U/L (38-126); Anion Gap 6 mmol/L; Blood Urea Nitrogen 7 mg/dL (9-20); Calcium 8.3 mg/dL (8.4-10.2); Carbon Dioxide 32 mmol/L (22-30); Chloride 99 mmol/L (98-107); Glucose 141 mg/dL (74-99); Non-African American GFR(CKD) >90 (>60 ml/min/1.73 sqM); Potassium 3.2 mmol/L (3.5-5.1); Sodium 137 mmol/L (137-145); Total Protein 4.3 g/dL (6.3-8.2)
[2025-04-29] MEDS ORDERED: Potassium Replacement Protocol 1 EACH MISC MISCELLANE PRN (04:34)
[2025-04-29] MEDS: POTASSIUM BICARBONATE/CIT AC 20 MEQ TABLET.EFF NG-TUBE SCH ×2 (05:22→17:39)
[2025-04-29 05:35] LABS: ABG HCO3 34 mmol/L (21-25); ABG PCO2 44 mmHg (35-45); ABG PH 7.50 (7.35-7.45); ABG PO2 84 mmHg (83-108); ABG TCO2 36 mmol/L (19-24); Allen Test Performed? Yes
[2025-04-29 05:53] LABS: Lymphocytes # (M) 0.88 k/uL (1.0-4.8); Metamyelocytes # (M) 0.25 k/uL (0); Monocytes # (M) 0.13 k/uL (0-1.0); Myelocytes # (M) 0.13 k/uL (0); Neutrophils # (M) 11.34 k/uL (1.3-7.7); Neutrophils % (M) 73 %; Total Cells Counted 200
[2025-04-29 06:12] LABS: Glucose,Whole Blood 159 mg/dL (70-110)
[2025-04-29] MEDS: INSULIN GLARGINE (LANTUS) 100 UNIT/ML SYR SQ SCH (06:15)
--- NOTE | 2025-04-29 06:53 | XR ---
EXAMINATION TYPE: XR chest 1V portable DATE OF EXAM: 04/29/2025 COMPARISON: 04/28/2025 CLINICAL INDICATION: Male, 65 years old with history of cough; TECHNIQUE: Single frontal view of the chest is obtained. FINDINGS: No change in the tracheostomy tube. There are postsurgical changes of fusion in the upper thoracic sp ine and lower cervical spine. There is a small left pleural effusion. There is interval decrease in the small right pleural effusio n. There is no lung consolidation or abnormal interstitial density. There is no pulmonary vascular conge stion or interstitial edema. IMPRESSION: 1. Resolution of the previous small right pleural effusion. 2. Stable left pleural effusion. 3. No cardiomegaly or pulmonary vascular congestion. 4. No airspace consolidation. [facility], , 04/29/2025 6:51 AM
--- NOTE | 2025-04-29 10:15 | P.PN ---
Progress Note - Text Progress Note Date: 04/29/25 Patient seen in intensive care unit. He is currently on the vent. Sleeping but wakes up easily. He gives a thumbs up constantly to respond to questions. His tracheostomy is intact as is his PEG. His neurologic exam is unchanged and his upper extremities and lower extremities Nursing states there is a small area open on his incision still, draining a brown fluid. No signs of infection. Continue to change dressing daily. His oxygen levels are decreasing today and requires frequent suctioning. They are working on transfer to specialty facility to continue his management and rehab occupational therapy and physical therapy.
--- NOTE | 2025-04-29 10:56 | P.PN ---
Subjective Progress Note Date: 04/29/25 The patient is seen today April 16, 2025 in follow-up on the selective care unit. He is currently sitting up in bed. Awake and alert in no acute distress. He is maintaining O2 saturation in the low 90s on 4 L/min per nasal cannula. He has been afebrile. Hemodynamically stable. White count 3.8. Hemoglobin 9.8. Platelets 59,000. Sodium 135. Potassium 3.2. Bicarb 30. BUN 15. Creatinine 0.33. Glucose 111. He remains on DuoNeb inhalations. Lovenox for DVT prophylaxis. Remains on a prednisone taper. Awaiting a bed at [facility]. Insurance authorization remains an issue. The patient is seen today April 17, 2025 in follow-up on the selective care unit. He is sitting up in bed. Awake and alert. He is having increasing shortness of breath today with increasing dyspnea. Chest x-ray is again starting to show opacity in the left lung. He continues with a very weak cough. Unable to clear his own secretions. He has been working with respiratory therapy including with the incentive spirometer and flutter valve. He is now requiring 15 L high flow nasal cannula. He has been intolerant to BiPAP. Sodium 135. Potassium 3.8. Bicarb 32. BUN 16. Creatinine 0.40. Glucose 92. He remains on DuoNeb inhalations. Lovenox for DVT prophylaxis. Continued on Mucinex. The patient is seen today April 23, 2025 in follow-up in the intensive care unit. He had again developed respiratory distress while up on the regular medical floor and a near complete whiteout of the left lung. He was placed on BiPAP and showed improvement. Today he is sitting up in a chair. Awake and alert in no acute distress. There is still some left lower lung collapse on the chest x- ray. He remains on Airvo high flow oxygen at 55 L and 75% FiO2 during the day. He is utilizing BiPAP at night 10/15 and 60% FiO2. He remains on Zosyn. He has normal saline at KVO. He attempts to work with the incentive spirometer and the flutter valve but his voice remains weak. His cough remains very weak. He does have paraplegia. He does not even feel subcu injections into the lower abdomen. He remains on DuoNeb inhalations. Receiving chest physiotherapy. Lovenox for DVT prophylaxis. Protonix for GI prophylaxis. The patient is seen today April 24, 2025 in follow-up in the intensive care unit. He is currently sitting up in bed. Awake and alert in no acute distress. He continues to have minimal tolerance for any activity without having shortness of breath and desaturations. His chest x-ray is again showing worsening left lower lobe collapse. He refused to wear the BiPAP last evening. He remains quite anxious about it. He remains on Airvo high flow nasal cannula at 60 L and 80% FiO2. Initial bronch wash cultures from March 26, 2025 was positive for Serratia marcescens. He is currently on Zosyn. White count 8.3. Hemoglobin 10.7. Platelets 339. Sodium 136. Potassium 3.6. Bicarb 29. BUN 13. Creatinine 0.32. Glucose 127. He remains on DuoNeb inhalations, Mucinex, prednisone. Lovenox for DVT prophylaxis. Protonix for GI prophylaxis. The patient is seen today April 26 2025 in follow-up in the intensive care unit. He is awake and alert. Still requiring BiPAP support 16/8 and 50% FiO2 to maintain O2 saturations in the 90s. He has normal saline at 75 mL/h. White count 8.7. Hemoglobin 10.3. Platelets 329. Sodium 135. Potassium 3.6. Bicarb 32. BUN 13. Creatinine 0.31. Glucose 121. Chest x-ray continues to show a left lower lobe infiltrate. He remains on DuoNeb inhalations. Currently sedated on Precedex 0.3 mcg/kg/h. Plan is for tracheostomy and PEG tube placement today. The patient is seen today April 27, 2025 in follow-up in the intensive care unit. He is currently resting in bed. Sedated on propofol at 25 mcg/kg/min. Normal saline at 75 mL/h. He is on the ventilator currently at a 6 control mode at a rate of 20, tidal volume 400, FiO2 50% and a PEEP of 8. Blood gases revealed a PO2 of 83, PCO2 of 46 and a pH of 7.45. White count 11.5. Hemoglobin 10.1. Platelets 324. Sodium 138. Potassium 2.9. Bicarb 31. BUN 11. Creatinine 0.29. Glucose 103. He remains on DuoNeb inhalations, Pulmicort and Perforomist inhalations, prednisone. Being nourished with vital HP at 10 mL/h with a goal of 40. Tracheostomy and PEG tubes placed yesterday. The patient is seen today April 28, 2025 in follow-up in the intensive care unit. He remains on mechanical ventilator via tracheostomy tube and assist-control mo de at a rate of 20, tidal volume 400, FiO2 40% and a PEEP of 8. Morning blood gases revealed a PO2 of 73, CSQ910 and a pH of 7.46. He is sedated lightly on propofol at 10 mcg/kg/min. Normal saline at 75 mL/h. Being nourished via PEG tube with vital HP at 30 mL/h with a goal of 40 mL/h. Chest x-ray reveals retrocardiac opacity and small bilateral pleural effusions. White count 12.2. Hemoglobin 10.0. Platelets 289. Sodium 135. Potassium 3.0. Bicarb 28. BUN 7. Creatinine 0.21. Glucose 101. He remains on DuoNeb inhalations, Pulmicort and Perforomist inhalations, prednisone taper. Lovenox for DVT prophylaxis. Protonix for GI prophylaxis. The patient is seen today April 29, 2025 in follow-up in the intensive care unit. He remains on mechanical ventilator currently in assist-control mode at a rate of 20, tidal volume 400, FiO2 50% and a PEEP of 8. Morning blood gases reveal a PO2 of 84, PCO2 of 44 and a pH of 7.50. He is sedated on propofol 25 mcg/kg/min. Receiving normal saline at 75 mL/h. He is being nourished with vital HP at 40 mL/h. White count 12.6. Hemoglobin 9.0. Platelets 335. Sodium 137. Potassium 3.2. Bicarb 32. BUN 7. Creatinine 0.18. Glucose 141. Chest x-ray reveals resolution of the previous small right pleural effusion. Stable left pleural effusion. No cardiomegaly or pulmonary vascular congestion. No airspace consolidation. Objective - Vital Signs Vital signs: Vital Signs Temp 98.8 F 04/29/25 08:00 Pulse 103 H 04/29/25 10:00 Resp 14 04/29/25 10:00 BP 122/64 04/29/25 10:00 Pulse Ox 90 L 04/29/25 10:00 FiO2 50 04/29/25 10:00 Intake & Output 04/28/25 04/29/25 04/29/25 18:59 06:59 18:59 Intake Total 7562.940 3209.078 616.726 Output Total 1075 900 875 Balance 592.939 656.078 -258.274 Weight 101.2 kg Intake: IV 900 900 300 Sodium Chloride 0.9% 1, 900 900 300 000 ml @ 75 mls/hr IV . [id number] JUAN LUIS Rx#:[id number] Intake, IV Titration 167.939 176.078 66.726 Amount propofoL 1,000 mg In 167.939 176.078 66.726 Empty Bag 1 bag @ 15 MCG/ KG/MIN 9.099 mls/hr IV . Q11H JUAN LUIS Rx#:[id number] Tube Feeding 370 480 160 Other 230 90 Output: Urine 1075 900 875 Other: Voiding Method Indwelling Catheter Indwelling Catheter Indwelling Catheter - Exam GENERAL EXAM: Sedated 65-year-old male, on the mechanical ventilator, in no respiratory distress. HEAD: Normocephalic. EYES: Normal reaction of pupils, equal size. NOSE: Clear with pink turbinates. THROAT: Tracheostomy tube secured in place. No erythema or exudates. NECK: Hard c-collar remains in place. No masses, no JVD. CHEST: No chest wall deformity. LUNGS: Equal air entry with few scattered rhonchi. Diminished in the left lung. CVS: S1 and S2 normal with no audible murmur, regular rhythm. ABDOMEN: PEG tube exit site clean and dry. No hepatosplenomegaly, normal bowel sounds, no guarding or rigidity. SPINE: No scoliosis or deformity SKIN: No rashes CENTRAL NERVOUS SYSTEM: Paraplegia, tone is normal in all 4 extremities. EXTREMITIES: There is no peripheral edema. No clubbing, no cyanosis. Peripheral pulses are intact. - Labs CBC & Chem 7: 04/29/25 02:46 04/29/25 02:46 Labs: Abnormal Lab Results - Last 24 Hours (Table) 04/28/25 04/28/25 04/29/25 Range/Units 11:55 18:29 00:11 WBC (4.50-10.00) 10*3/uL RBC (4.40-5.60) 10*6/uL Hgb (13.0-17.0) g/dL Hct (39.6-50.0) % MCHC (32.0-37.0) g/dL Immature Gran # (0.00-0.04) 10*3/uL Neutrophils # (Manual) (1.3-7.7) k/uL Lymphocytes # (Manual) (1.0-4.8) k/uL Metamyelocytes # (Man) (0) k/uL Myelocytes # (Manual) (0) k/uL ABG pH (7.35-7.45) ABG HCO3 (21-25) mmol/L ABG Total CO2 (19-24) mmol/L ABG O2 Saturation (94-97) % Hemoglobin (13.0-17.5) gm/dL Potassium (3.5-5.1) mmol/L Carbon Dioxide (22-30) mmol/L BUN (9-20) mg/dL Creatinine (0.66-1.25) mg/dL Glucose (74-99) mg/dL POC Glucose (mg/dL) 121 H 190 H 166 H (70-110) mg/dL Calcium (8.4-10.2) mg/dL Total Protein (6.3-8.2) g/dL Albumin (3.5-5.0) g/dL 04/29/25 04/29/25 04/29/25 Range/Units 02:46 02:46 05:32 WBC 12.60 H (4.50-10.00) 10*3/uL RBC 3.01 L (4.40-5.60) 10*6/uL Hgb 9.0 L (13.0-17.0) g/dL Hct 28.2 L (39.6-50.0) % MCHC 31.9 L (32.0-37.0) g/dL Immature Gran # 0.87 H (0.00-0.04) 10*3/uL Neutrophils # (Manual) 11.34 H (1.3-7.7) k/uL Lymphocytes # (Manual) 0.88 L (1.0-4.8) k/uL Metamyelocytes # (Man) 0.25 H (0) k/uL Myelocytes # (Manual) 0.13 H (0) k/uL ABG pH 7.50 H (7.35-7.45) ABG HCO3 34 H (21-25) mmol/L ABG Total CO2 36 H (19-24) mmol/L ABG O2 Saturation 98.0 H (94-97) % Hemoglobin 9.1 L (13.0-17.5) gm/dL Potassium 3.2 L (3.5-5.1) mmol/L Carbon Dioxide 32 H (22-30) mmol/L BUN 7 L (9-20) mg/dL Creatinine 0.18 L (0.66-1.25) mg/dL Glucose 141 H (74-99) mg/dL POC Glucose (mg/dL) (70-110) mg/dL Calcium 8.3 L (8.4-10.2) mg/dL Total Protein 4.3 L (6.3-8.2) g/dL Albumin 2.1 L (3.5-5.0) g/dL 04/29/25 Range/Units 06:11 WBC (4.50-10.00) 10*3/uL RBC (4.40-5.60) 10*6/uL Hgb (13.0-17.0) g/dL Hct (39.6-50.0) % MCHC (32.0-37.0) g/dL Immature Gran # (0.00-0.04) 10*3/uL Neutrophils # (Manual) (1.3-7.7) k/uL Lymphocytes # (Manual) (1.0-4.8) k/uL Metamyelocytes # (Man) (0) k/uL Myelocytes # (Manual) (0) k/uL ABG pH (7.35-7.45) ABG HCO3 (21-25) mmol/L ABG Total CO2 (19-24) mmol/L ABG O2 Saturation (94-97) % Hemoglobin (13.0-17.5) gm/dL Potassium (3.5-5.1) mmol/L Carbon Dioxide (22-30) mmol/L BUN (9-20) mg/dL Creatinine (0.66-1.25) mg/dL Glucose (74-99) mg/dL POC Glucose (mg/dL) 159 H (70-110) mg/dL Calcium (8.4-10.2) mg/dL Total Protein (6.3-8.2) g/dL Albumin (3.5-5.0) g/dL Assessment and Plan Assessment: Acute hypoxic respiratory failure, multifactorial. The patient has developed postoperative atelectasis of the left lower lobe and the patient has significant elevation in volume loss in the left lung compared to the right. Previous bronchoscopy and sputum analysis was positive for Serratia marcescens. Nasal culture is positive for MSSA and the patient completed the course of antibiotics. He has a very weak cough and poor ability to perform pulmonary toileting. He has had several incidences of near complete whiteout of the left lung at times. Chest x-rays have been waxing and waning. Today's x-ray again s hows left lower lobe infiltrate. He did undergo tracheostomy tube and PEG tube placement 04/26/2025 T8 spinal cord injury. The patient has severe spinal canal stenosis at the level of C7/T1 with motor weakness in the lower extremities in addition to myelopathy. The patient is post C7/T1 discectomy with decompression and fusion and the patient also had extension of a previous C2/7 fusion to T3. This was done back on March 21, 2025 Obstructive sleep apnea maintain CPAP therapy on outpatient basis Diabetes mellitus type 2, with steroid-induced hyperglycemia Hypotension, rule out septic versus neurogenic hypotension post spine surgery Sinus tachycardia Hyperlipidemia Seroma in the posterior soft tissues along the length of the skin jarad, spinal surgeries following Bilateral lower extremity weakness, ongoing motor weakness in the lower extremities bilaterally with absent motor function at this point with bilateral foot drop. Patient's sensations in the lower limbs have improved, but now patient is completely paraplegic. T8 p spinal cord injury with motor paralysis lower extremities bilaterally with absent sensation. He does have some feelings in his lower abdomen towards the groin. History of prior cervical fusion C3-C7 History of severe L5-S1 neuroforaminal stenosis Plan: The patient was seen and evaluated Chest x-ray, ABGs, labs and medications reviewed Currently on the mechanical ventilator We will continue daily interruption of sedation We will continue weaning trial of pressure support of 10 and CPAP Continue bronchodilators Continue tube feedings Continue saline at 75 mL/h Continue Lovenox for DVT prophylaxis Protonix for GI prophylaxis Continue prednisone Plan is for select specialty, possibly tomorrow We will continue to follow I have personally seen and examined the patient, performed the documentation and the assessment and plan as written. Number of minutes spent on the visit: 15 Dictation was produced using [employer] dictation software. Please excuse any grammatical, word or spelling errors.
--- NOTE | 2025-04-29 11:25 | P.PN ---
Subjective Progress Note Date: 04/29/25 Subjective: Patient seen and examined at bedside. Trached and mechanically ventilated, PEG tube in place. Will attempt CPAP trial again today. Pertinent positives and negatives as discussed above, a complete review of systems was performed and all other systems are negative. Vitals Signs Reviewed. General: Nontoxic, no distress, appears at stated age Derm: Warm, dry Head: Atraumatic, normocephalic, symmetric, Eyes: EOMI, no lid lag, anicteric sclera Mouth: No lip lesion, mucus membranes moist Cardiovascular: S1S2 reg, no murmur Lungs: Reduced breath sounds on the left lower lobe, no accessory muscle use, trach, mechanically ventilated Abdominal: Soft, nontender to palpation, no guarding, no appreciable organomegaly Ext: No gross muscle atrophy, no edema, no contractures Neuro: Flaccid paralysis in bilateral lower extremity, reduced sensation below abdomen Psych: Alert, oriented, appropriate affect Data Reviewed Today: Pertinent Labs: WBC 12.6, hemoglobin 9, pH 7.5, potassium 3.2, creatinine 0.18, glucose range between 141-166 Imaging: Chest x-ray independently interpreted, similar demonstrated Assessment and Plan: #. Respiratory failure status post trach #. Acute hypoxemic and hypercapnic respiratory failure secondary to severe atelectasis and mucous plugging status post bronchoscopy x 2 # Respiratory acidosis, resolved #Metabolic alkalosis #. Healthcare acquired Pneumonia secondary to Serratia and Milagros, resolved #. Leukocytosis, resolved #. Persistent atelectasis, resolved - Remains in ICU, now status post trach and PEG Continue with steroid taper, on prednisone 20 mg daily today Continue DuoNebs 4 times daily and every 2 hours as needed Meropenem, zosyn and Fluconazole course previously completed Continue with Mucomyst, DuoNebs 4 times daily, every 2 hours as needed Encourage incentive spirometry Aggressive pulmonary toileting Monitor CBC - dc to select speciality facility - Tube feeds via PEG tube - Patient currently on IV fluids at 75 cc an hour normal saline, #. Cervical myelopathy secondary to severe spinal canal stenosis involving C7-T1 #. Status post extensive cervical decompression with discectomy at C7-T1 and fusion with extension of fusion from C3-C7 with new extension down to T3 #. Severe right L5-S1 neuroforaminal stenosis #. Moderate bilateral L4-L5 neuroforaminal stenosis Orthopedic surgery following status post extensive cervical decompression with dissecting at C7-T1 and fusion with extension of fusion from C3-C7 with new extension down to T3 Continue Prednisone 20 mg PO daily, will taper Completed course of IV cefazolin Continue neurochecks every 4 hours and as needed. Maintain fall precautions Continue Samuels catheter Continue Unna boot bilaterally to prevent foot drop PT/OT Social work following with regards to disposition #. Type II [id number] diabetes mellitus #. Hyperglycemia, resolved - Lantus 5 units daily, sliding scale insulin, monitor for hypoglycemia #. Hypokalemia - Being given potassium oral, repeat BMP tomorrow #. Bilateral lower extremity edema Bilateral lower extremity Doppler ultrasound negative for DVT #. Hyponatremia, resolved #. Thrombocytopenia, stable, resolved #. normocytic anemia, stable #. Hypomagnesemia, resolved Hypotension, resolved - Continue to hold antihypertensives Chronic: #. Hypertension #. Hyperlipidemia #. Obstructive sleep apnea #. BPH #. Restless leg syndrome #. Neuropathy DVT ppx: Lovenox Code status: Full code Anticipated discharge place: Pending clinical course Anticipated discharge time: Pending clinical course Objective - Vital Signs Vital signs: Vital Signs Temp 98.8 F 04/29/25 08:00 Pulse 102 H 04/29/25 11:00 Resp 22 04/29/25 11:00 BP 138/70 04/29/25 11:00 Pulse Ox 98 04/29/25 11:00 FiO2 100 04/29/25 11:00 Intake & Output 04/28/25 04/29/25 04/29/25 18:59 06:59 18:59 Intake Total 8109.493 8529.078 731.726 Output Total 0159 478 6216 Balance 592.939 656.078 -468.274 Weight 101.2 kg Intake: IV 900 900 375 Sodium Chloride 0.9% 1, 900 900 375 000 ml @ 75 mls/hr IV . [id number] JUAN LUIS Rx#:[id number] Intake, IV Titration 167.939 176.078 66.726 Amount propofoL 1,000 mg In 167.939 176.078 66.726 Empty Bag 1 bag @ 15 MCG/ KG/MIN 9.099 mls/hr IV . Q11H JUAN LUIS Rx#:[id number] Tube Feeding 370 480 200 Other 230 90 Output: Urine 9092 128 0078 Other: Voiding Method Indwelling Catheter Indwelling Catheter Indwelling Catheter - Labs CBC & Chem 7: 04/29/25 02:46 04/29/25 02:46 Labs: Abnormal Lab Results - Last 24 Hours (Table) 04/28/25 04/28/25 04/29/25 Range/Units 11:55 18:29 00:11 WBC (4.50-10.00) 10*3/uL RBC (4.40-5.60) 10*6/uL Hgb (13.0-17.0) g/dL Hct (39.6-50.0) % MCHC (32.0-37.0) g/dL Immature Gran # (0.00-0.04) 10*3/uL Neutrophils # (Manual) (1.3-7.7) k/uL Lymphocytes # (Manual) (1.0-4.8) k/uL Metamyelocytes # (Man) (0) k/uL Myelocytes # (Manual) (0) k/uL ABG pH (7.35-7.45) ABG HCO3 (21-25) mmol/L ABG Total CO2 (19-24) mmol/L ABG O2 Saturation (94-97) % Hemoglobin (13.0-17.5) gm/dL Potassium (3.5-5.1) mmol/L Carbon Dioxide (22-30) mmol/L BUN (9-20) mg/dL Creatinine (0.66-1.25) mg/dL Glucose (74-99) mg/dL POC Glucose (mg/dL) 121 H 190 H 166 H (70-110) mg/dL Calcium (8.4-10.2) mg/dL Total Protein (6.3-8.2) g/dL Albumin (3.5-5.0) g/dL 04/29/25 04/29/25 04/29/25 Range/Units 02:46 02:46 05:32 WBC 12.60 H (4.50-10.00) 10*3/uL RBC 3.01 L (4.40-5.60) 10*6/uL Hgb 9.0 L (13.0-17.0) g/dL Hct 28.2 L (39.6-50.0) % MCHC 31.9 L (32.0-37.0) g/dL Immature Gran # 0.87 H (0.00-0.04) 10*3/uL Neutrophils # (Manual) 11.34 H (1.3-7.7) k/uL Lymphocytes # (Manual) 0.88 L (1.0-4.8) k/uL Metamyelocytes # (Man) 0.25 H (0) k/uL Myelocytes # (Manual) 0.13 H (0) k/uL ABG pH 7.50 H (7.35-7.45) ABG HCO3 34 H (21-25) mmol/L ABG Total CO2 36 H (19-24) mmol/L ABG O2 Saturation 98.0 H (94-97) % Hemoglobin 9.1 L (13.0-17.5) gm/dL Potassium 3.2 L (3.5-5.1) mmol/L Carbon Dioxide 32 H (22-30) mmol/L BUN 7 L (9-20) mg/dL Creatinine 0.18 L (0.66-1.25) mg/dL Glucose 141 H (74-99) mg/dL POC Glucose (mg/dL) (70-110) mg/dL Calcium 8.3 L (8.4-10.2) mg/dL Total Protein 4.3 L (6.3-8.2) g/dL Albumin 2.1 L (3.5-5.0) g/dL 04/29/25 Range/Units 06:11 WBC (4.50-10.00) 10*3/uL RBC (4.40-5.60) 10*6/uL Hgb (13.0-17.0) g/dL Hct (39.6-50.0) % MCHC (32.0-37.0) g/dL Immature Gran # (0.00-0.04) 10*3/uL Neutrophils # (Manual) (1.3-7.7) k/uL Lymphocytes # (Manual) (1.0-4.8) k/uL Metamyelocytes # (Man) (0) k/uL Myelocytes # (Manual) (0) k/uL ABG pH (7.35-7.45) ABG HCO3 (21-25) mmol/L ABG Total CO2 (19-24) mmol/L ABG O2 Saturation (94-97) % Hemoglobin (13.0-17.5) gm/dL Potassium (3.5-5.1) mmol/L Carbon Dioxide (22-30) mmol/L BUN (9-20) mg/dL Creatinine (0.66-1.25) mg/dL Glucose (74-99) mg/dL POC Glucose (mg/dL) 159 H (70-110) mg/dL Calcium (8.4-10.2) mg/dL Total Protein (6.3-8.2) g/dL Albumin (3.5-5.0) g/dL
[2025-04-29 11:42] LABS: Glucose,Whole Blood 204 mg/dL (70-110)
--- NOTE | 2025-04-29 13:20 | P.PN ---
Progress Note - Text Progress Note Date: 04/29/25 Patient seen and examined. No acute events overnight. Tube feeds running at 40 cc/hr without issue. No issues with tracheostomy VSS General-Sedated Neck-Tracheostomy site C/D/I Abdomen-soft, NTND, gastrostomy tube in place. 65 year old male POD #3 Tracheostomy and EGD with PEG Tube Insertion -Tube Feeds as Tolerated -ICU care Ramy Wilkerson DO [facility] [phone]
[2025-04-29 17:43] LABS: Glucose,Whole Blood 251 mg/dL (70-110)
[2025-04-29 23:21] LABS: Glucose,Whole Blood 162 mg/dL (70-110)
[2025-04-30 04:56] LABS: HCT 28.7 % (39.6-50.0); HGB 9.6 g/dL (13.0-17.0); MCH 32.3 pg (27.0-32.0); MCHC 33.4 g/dL (32.0-37.0); MCV 96.6 fL (80.0-97.0); Platelet Count 270 10*3/uL (140-440); RBC 2.97 10*6/uL (4.40-5.60); RDW 15.1 % (11.5-14.5); WBC 14.08 10*3/uL (4.50-10.00)
[2025-04-30 05:24] LABS: Lymphocytes # (M) 0.14 k/uL (1.0-4.8); Metamyelocytes # (M) 0.84 k/uL (0); Monocytes # (M) 0.28 k/uL (0-1.0); Myelocytes # (M) 0.28 k/uL (0); Neutrophils # (M) 12.53 k/uL (1.3-7.7); Neutrophils % (M) 58 %; Total Cells Counted 200
[2025-04-30 05:25] LABS: Anisocytosis (M) Present
[2025-04-30 05:31] LABS: African American GFR (CKD) >90 (>60 ml/min/1.73 sqM); Anion Gap 8 mmol/L; Blood Urea Nitrogen 7 mg/dL (9-20); Calcium 7.8 mg/dL (8.4-10.2); Carbon Dioxide 29 mmol/L (22-30); Chloride 91 mmol/L (98-107); Glucose 131 mg/dL (74-99); Non-African American GFR(CKD) >90 (>60 ml/min/1.73 sqM); Sodium 128 mmol/L (137-145)
[2025-04-30 05:36] LABS: Magnesium 1.4 mg/dL (1.6-2.3); Potassium 3.3 mmol/L (3.5-5.1)
[2025-04-30 05:58] LABS: ABG HCO3 37 mmol/L (21-25); ABG PCO2 52 mmHg (35-45); ABG PH 7.46 (7.35-7.45); ABG PO2 67 mmHg (83-108); ABG TCO2 38 mmol/L (19-24); Allen Test Performed? Yes
[2025-04-30] MEDS: POTASSIUM BICARBONATE/CIT AC 20 MEQ TABLET.EFF NG-TUBE SCH ×2 (06:17→14:06)
[2025-04-30] MEDS: MAGNESIUM SULFATE-D5W PMX 1 GM in DEXTROSE/WATER 1 100ML.BAG IVPB SCH (06:17)
[2025-04-30 06:24] LABS: Glucose,Whole Blood 135 mg/dL (70-110)
--- NOTE | 2025-04-30 08:02 | XR ---
EXAMINATION TYPE: XR chest 1V portable DATE OF EXAM: 04/30/2025 5:14 AM COMPARISON: 04/29/2025 CLINICAL INDICATION: Male, 65 years old with history of mechanical ventilation, , FINDINGS: ACDF and posterior cervical fusion hardware. Tracheostomy cannula. The inferior most thorax is exclud ed from view particularly on the left. Hazy bilateral lower lung densities suggest partially layering pleural effusions. Mild interstitial prominence on the right. IMPRESSION: Partially layering small pleural effusions with adjacent atelectasis and/or consolidation. Mild inter stitial densities on the right could reflect some underlying pulmonary vascular congestion. Overall r elatively similar to prior. [facility], Workstation: [facility], 04/30/2025 8:00 AM
--- NOTE | 2025-04-30 08:53 | P.PN ---
Progress Note - Text Progress Note Date: 04/30/25 Pt seen this a.m. on vent via trach sedated but arousable . will wake up and give a thumbs up, but lethargic and falls back asleep Trach and vent intact Paralysis due to spinal cord injury 6 weeks s/p posterior cervical decompression and fusion without improvement of distal neurologic function s/p placemtnt of tracheostomy and PEG tube which appear to be functioning adequately repiratory function sever compromise on vent Pt will continue with critical care management should still continue with PT OT as able for joint mobility and function
[2025-04-30] MEDS: FUROSEMIDE 10 MG/ML 4 ML VIAL IV STA (10:12)
[2025-04-30 11:33] LABS: Glucose,Whole Blood 207 mg/dL (70-110)
--- NOTE | 2025-04-30 12:04 | P.PN ---
Subjective Progress Note Date: 04/30/25 This is a 64-year-old male patient was undergone a C 7 T1 discectomy, done posteriorly with wide laminectomy and foraminotomy and partial facetectomy. The patient was experiencing cervical myelopathy with severe bilateral lower extremity weakness and T8 paresthesia. The patient has previous history of cervical spine fusion C2-C7. The patient was found to have a large herniated disc C7-T1 with severe spinal cord stenosis and based on that the patient was taken to the operating room and underwent a C7-T1 discectomy on 03/21/2025. The patient has become progressively more hypoxic. The patient developed lower lobe pneumonia left more than right. 04/09/2025 the patient is being seen for a follow-up in the intensive care unit. This morning, the patient is awake and alert. He has gotten progressively more debilitated over the past 10 days. He is managed in the intensive care unit for his acute hypoxic respiratory failure and left lower lobe pneumonia. He has required 2 bronchoscopies and the bronchoscopy is done on 03/26/2025 showed Serratia marcescens and the patient's nasal screen was positive for MSSA. The most recent chest x-ray from this morning shows a persistent consolidation in the left lung base and some atelectatic change in lung base bilaterally. No significant interval change compared to earlier chest x-rays. The patient remains on Airvo and earlier this morning the patient was on 6 L with an FiO2 of 65%. IV fluids are currently at KVO. The patient remains on IV cefazolin. Samuels catheter is in place. He has developed increased edema in his right upper extremity. Hemodynamically stable. The white cell count is at 10.2 with a hemoglobin 12.1 and a platelet count of 85. BUN is 19 with a creatinine of 0.37. Remains on IV Solu-Medrol. Spine surgery is on the case. He continues to have difficulties with lower extremity paralysis. He does have some numbness which is improved around his abdomen towards the groin. He does not have any sensation in his lower extremities except for some increased sensation in his right greater toe and no motor function in his lower extremities bilaterally. He is wearing compression stockings and boots. He does have some weakness also in his upper extremities. The patient is postop day #17. He is awake and alert and communicating. He is off the BiPAP. He remains on NovoLog 10 units 3 times daily with meals. Rest of the medications are essentially unchanged. 05/07/2025, patient is being seen for a follow-up. Oxygenation is stable for now. The patient was taken off the Airvo yesterday and the patient was placed on 10 L of oxygen by nasal cannula. Earlier this morning, the patient showed adequate oxygenation and the patient was further weaned down to 8 L/min nasal cannula. Chest x-ray shows a stable left lower lobe consolidation. The patient remains on the same antibiotics and the patient remains IV cefazolin. Cough remains weak. IV fluids are currently at KVO. No fever or chills. He does juan ve some sensation in lower extremities bilaterally although this is minimal. Motor function is still absent. The white cell count 8.7 with a hemoglobin 11.7 and a platelet count of 90. BUN 17 with a creatinine 0.49 and sodium is 136. No other significant events overnight. Will considering discharging this patient to an LTAC facility. The patient is postop day #18. On 04/11/2025, the patient is being seen for a follow-up. The patient shows ongoing improvement in the oxygenation and the patient is currently on 40 of oxygen by nasal cannula. Overnight, the patient utilizing a BiPAP at a pressure of 14 over 8 cm of water regarding his obstructive sleep apnea. He is doing well. He has some sensation above the thighs. No motor function lower extremities bilaterally. Upper extremities remain weak. Cough remains weak. He is on Lantus insulin 50 units daily and NovoLog 10 units with meals and sliding scale coverage. He remains on prednisone 40 mg p.o. daily. He remains on Lovenox for DVT prophylaxis. Samuels catheter to be discontinued today. He is awake and alert and communicating. The white cell count is 8.6 with a hemoglobin 11.4 and a platelet count of 85. BUN 16 with a creatinine 0.4. Sodium level is 133 and the blood sugar is at 169. Patient is being considered for LTAC. Insurance authorization has not been obtained. He is postop day #19. 04/12/2025, the patient is found to be slightly hypotensive. Overnight, the patient was given a bolus of 500 cc. Blood pressure is currently soft with a systolic in the mid 80s. Urine output was also low. The patient will be given another bolus of 1 L and is asked to be placed on hold. He is currently on liters of oxygen by nasal cannula. No respiratory difficulties. Neurologically unchanged. The white cell count is at 8.6 with a hemoglobin 10.8 and a platelet count has dropped further down to 55. K is at 3.9. BUN 16 with a creatinine 0.3. No antibiotics at this point and the patient remains on prednisone 40 mg p.o. daily. The patient is postop day #20. Tolerating diet. No issues with swallowing. 04/13/2025, the patient is being seen for a follow-up. The patient is calm and comfortable. Blood pressure remains soft yet stable. The patient was taken off the lisinopril. Fluid balance is +30 cc over the past 24 and the patient remains on 3 L of oxygen by nasal cannula. Afebrile. Awake and alert and communicating. Repeat chest x-ray was done this morning and it shows no lung volumes left greater than right base with small bilateral pleural effusion. No significant changes otherwise compared to yesterday. Tolerating diet. Motor function is unchanged lower extremity and the patient has no motor function in his legs bilaterally. Sensation is slightly present above the knees in the th ighs bilaterally. Motor function upper extremities 4 out of 5. The white Of 9.8 with a Heme of 10.4 and the Platelet Count of 55. BUN Is 18 with a Creatinine of 0.28 and a Sodium of 132. Glucose at 149. Patient Remains on Lovenox 40 Mg Subcu for DVT Prophylaxis. Remains on Lantus 50 Units Daily and NovoLog Sliding Scale Coverage. Rest of the Medications Are Essentially Unchanged. Remains on Prednisone 40 Mg P.O. Daily. No Issues with Pain. Continues to Wear a Hard Neck Collar. The patient is postop day #21. On 04/14/2025, the patient is being seen for a follow-up. Condition is stable and he remains on 3 L of oxygen by nasal cannula. Hemodynamically stable. Blood pressure is stable. The patient on Lantus insulin 15 yesterday. The patient on prednisone 40 mg p.o. daily. Blood work from today still pending. No new complaints otherwise for now. Tolerating diet. Having bowel movement. Using incentive spirometer. Was transitioned on the chair. Neurologically unchanged and the patient has no motor function lower extremities bilaterally. He is postop day #22. On 04/15/2025, the patient is being seen for a follow-up. Sitting up in a chair and the patient is calm and comfortable. No motor function lower extremities bilaterally in the patient's neurologic status essentially unchanged. The patient remains on oxygen and the patient is currently on 4 L of O2 nasal ca nnula with a pulse ox of 91%. Using incentive spirometer. No respiratory distress. Tolerating diet. The white cell count is 4.9 with a hemoglobin 10.3 and a platelet count of 62. BUN 17 with a creatinine of 0.4. Potassium level is at 3.0 that needs to be replaced. Platelet count is improved compared to yesterday. No other new complaints otherwise for now. April 16, 2025 in follow-up on the selective care unit. He is currently sitting up in bed. Awake and alert in no acute distress. He is maintaining O2 saturation in the low 90s on 4 L/min per nasal cannula. He has been afebrile. Hemodynamically stable. White count 3.8. Hemoglobin 9.8. Platelets 59,000. Sodium 135. Potassium 3.2. Bicarb 30. BUN 15. Creatinine 0.33. Glucose 111. He remains on DuoNeb inhalations. Lovenox for DVT prophylaxis. Remains on a prednisone taper. Awaiting a bed at [facility]. Insurance authorization remains an issue. The patient is seen today April 17, 2025 in follow-up on the selective care unit. He is sitting up in bed. Awake and alert. He is having increasing shortness of breath today with increasing dyspnea. Chest x-ray is again starting to show opacity in the left lung. He continues with a very weak cough. Unable to clear his own secretions. He has been working with respiratory therapy including with the incentive spirometer and flutter valve. He is now requiring 15 L high flow nasal cannula. He has been intolerant to BiPAP. Sodium 135. Potassium 3.8. Bicarb 32. BUN 16. Creatinine 0.40. Glucose 92. He remains on DuoNeb inhalations. Lovenox for DVT prophylaxis. Continued on Mucinex. The patient is seen today April 23, 2025 in follow-up in the intensive care unit. He had again developed respiratory distress while up on the regular medical floor and a near complete whiteout of the left lung. He was placed on BiPAP and showed improvement. Today he is sitting up in a chair. Awake and alert in no acute distress. There is still some left lower lung collapse on the chest x- ray. He remains on Airvo high flow oxygen at 55 L and 75% FiO2 during the day. He is utilizing BiPAP at night 12/8 and 60% FiO2. He remains on Zosyn. He has normal saline at KVO. He attempts to work with the incentive spirometer and the flutter valve but his voice remains weak. His cough remains very weak. He does have paraplegia. He does not even feel subcu injections into the lower abdomen. He remains on DuoNeb inhalations. Receiving chest physiotherapy. Lovenox for DVT prophylaxis. Protonix for GI prophylaxis. The patient is seen today April 24, 2025 in follow-up in the intensive care unit. He is currently sitting up in bed. Awake and alert in no acute distress. He continues to have minimal tolerance for any activity without having shortness of breath and desaturations. His chest x-ray is again showing worsening left lower lobe collapse. He refused to wear the BiPAP last evening. He remains quite anxious about it. He remains on Airvo high flow nasal cannula at 60 L and 80% FiO2. Initial bronch wash cultures from March 26, 2025 was positive for Serratia marcescens. He is currently on Zosyn. White count 8.3. Hemoglobin 10.7. Platelets 339. Sodium 136. Potassium 3.6. Bicarb 29. BUN 13. Creatinine 0 .32. Glucose 127. He remains on DuoNeb inhalations, Mucinex, prednisone. Lovenox for DVT prophylaxis. Protonix for GI prophylaxis. The patient is seen today April 26 2025 in follow-up in the intensive care unit. He is awake and alert. Still requiring BiPAP support 16/8 and 50% FiO2 to maintain O2 saturations in the 90s. He has normal saline at 75 mL/h. White count 8.7. Hemoglobin 10.3. Platelets 329. Sodium 135. Potassium 3.6. Bicarb 32. BUN 13. Creatinine 0.31. Glucose 121. Chest x-ray continues to show a left lower lobe infiltrate. He remains on DuoNeb inhalations. Currently sedated on Precedex 0.3 mcg/kg/h. Plan is for tracheostomy and PEG tube placement today. The patient is seen today April 27, 2025 in follow-up in the intensive care unit. He is currently resting in bed. Sedated on propofol at 25 mcg/kg/min. Normal saline at 75 mL/h. He is on the ventilator currently at a 6 control mode at a rate of 20, tidal volume 400, FiO2 50% and a PEEP of 8. Blood gases revealed a PO2 of 83, PCO2 of 46 and a pH of 7.45. White count 11.5. Hemoglobin 10.1. Platelets 324. Sodium 138. Potassium 2.9. Bicarb 31. BUN 11. Creatinine 0.29. Glucose 103. He remains on DuoNeb inhalations, Pulmicort and Perforomist inhalations, prednisone. Being nourished with vital HP at 10 mL/h with a goal of 40. Tracheostomy and PEG tubes placed yesterday. The patient is seen today April 28, 2025 in follow-up in the intensive care unit. He remains on mechanical ventilator via tracheostomy tube and assist-control mode at a rate of 20, tidal volume 400, FiO2 40% and a PEEP of 8. Morning blood gases revealed a PO2 of 73, [id number] and a pH of 7.46. He is sedated lightly on propofol at 10 mcg/kg/min. Normal saline at 75 mL/h. Being nourished via PEG tube with vital HP at 30 mL/h with a goal of 40 mL/h. Chest x-ray reveals retrocardiac opacity and small bilateral pleural effusions. White count 12.2. Hemoglobin 10.0. Platelets 289. Sodium 135. Potassium 3.0. Bicarb 28. BUN 7. Creatinine 0.21. Glucose 101. He remains on DuoNeb inhalations, Pulmicort and Perforomist inhalations, prednisone taper. Lovenox for DVT prophylaxis. Protonix for GI prophylaxis. The patient is seen today April 29, 2025 in follow-up in the intensive care unit. He remains on mechanical ventilator currently in assist-control mode at a rate of 20, tidal volume 400, FiO2 50% and a PEEP of 8. Morning blood gases reveal a PO2 of 84, PCO2 of 44 and a pH of 7.50. He is sedated on propofol 25 mcg/kg/min. Receiving normal saline at 75 mL/h. He is being nourished with vital HP at 40 mL/h. White count 12.6. Hemoglobin 9.0. Platelets 335. Sodium 137. Potassium 3.2. Bicarb 32. BUN 7. Creatinine 0.18. Glucose 141. Chest x-ray reveals resolution of the previous small right pleural effusion. Stable left pleural effusion. No cardiomegaly or pulmonary vascular congestion. No airspace consolidation. 04/30/2025, the patient is being seen for a follow-up. The patient remains on a mechanical ventilator. He is awake and arousable while being on propofol running at 50 mcg/kg/min. He is on assist-control mode rate of 20, tidal volume of 400, FiO2 60% with a PEEP of 8. His blood gases showing a pH of 7.46 with [id number] and PO2 of 67. The patient has a lumbar 7.5 [address] tracheostomy tube in place and the patient also has a PEG tube with vital high-protein running at 40 cc an hour. No active diarrhea and his diarrhea subsided and the fecal management system will be removed. Minimal respiratory secretions. Chest x-ray from today showing ongoing infiltrates/consolidation lung bases and small amount of fluid and atelectasis in the lung bases. Noted the patient had an extensive left lower lobe pneumonia that was attributed to Serratia marcescens and the patient was treated with broad-spectrum antibiotics and the patient was taken off antibiotics and currently is on no antibiotics. He remains on 20 mg of prednisone. Neurologically unchanged the patient has no motor function lower extremities bilaterally. He is still on Lantus insulin 5 units daily and a sliding scale coverage. He is arousable and communicating. He remains on Lovenox 40 mg subcu on a daily basis. Objective - Vital Signs Vital signs: Vital Signs Temp 99.7 F H 04/30/25 03:00 Pulse 93 04/30/25 08:33 Resp 22 04/30/25 07:00 BP 119/55 04/30/25 07:00 Pulse Ox 97 04/30/25 07:00 FiO2 60 04/30/25 05:03 Intake & Output 04/29/25 04/30/25 04/30/25 18:59 06:59 18:59 Intake Total 5089.593 5570.447 Output Total 1895 660 Balance -006.128 2819.447 Weight 100.7 kg Intake: IV 900 900 Sodium Chloride 0.9% 1, 900 900 000 ml @ 75 mls/hr IV . [id number] JUAN LUIS Rx#:[id number] Intake, IV Titration 163.782 282.447 Amount propofoL 1,000 mg In 163.782 282.447 Empty Bag 1 bag @ 15 MCG/ KG/MIN 9.099 mls/hr IV . Q11H JUAN LUIS Rx#:[id number] Tube Feeding 480 480 Other 210 720 Output: Urine 1895 660 Other: Voiding Method Indwelling Catheter Indwelling Catheter - Exam General: nontoxic, no distress, appears at stated age, patient is currently on a mechanical ventilator and the patient has a 7.[address] tracheostomy tube in place. Derm: warm, dry, intact, dressing noted at the back of neck with no signs of drainage or bleeding. Head: atraumatic, normocephalic, symmetric Eyes: EOMI, anicteric sclera Mouth: no lip lesion, mucus membranes moist Cardiovascular: S1 S2 reg, no murmur, rubs, or gallops Lungs: Diminished breath in the lung bases bilaterally. No significant wheezing. Abdominal: soft, a bowel sounds are present and the patient has a PEG tube in place. Extremities: no gross muscle atrophy, no edema, no contractures, patient is un able to move bilateral lower extremity, increased edema in the right upper extremity. Neuro: Alert, Oriented, CNII-XII grossly intact, gait cannot be assessed as the patient has absent motor function lower extremities bilaterally patient has bilateral foot drop. Reflexes are diminished. No Babinski. No clonus. - Labs CBC & Chem 7: 04/30/25 04:27 04/30/25 04:27 Labs: Abnormal Lab Results - Last 24 Hours (Table) 04/29/25 04/29/25 04/29/25 Range/Units 11:40 17:42 23:18 WBC (4.50-10.00) 10*3/uL RBC (4.40-5.60) 10*6/uL Hgb (13.0-17.0) g/dL Hct (39.6-50.0) % MCH (27.0-32.0) pg Immature Gran # (0.00-0.04) 10*3/uL Neutrophils # (Manual) (1.3-7.7) k/uL Lymphocytes # (Manual) (1.0-4.8) k/uL Metamyelocytes # (Man) (0) k/uL Myelocytes # (Manual) (0) k/uL ABG pH (7.35-7.45) ABG pCO2 (35-45) mmHg ABG pO2 (83-108) mmHg ABG HCO3 (21-25) mmol/L ABG Total CO2 (19-24) mmol/L Hemoglobin (13.0-17.5) gm/dL Sodium (137-145) mmol/L Potassium (3.5-5.1) mmol/L Chloride (98-107) mmol/L BUN (9-20) mg/dL Creatinine (0.66-1.25) mg/dL Glucose (74-99) mg/dL POC Glucose (mg/dL) 204 H 251 H 162 H (70-110) mg/dL Calcium (8.4-10.2) mg/dL Magnesium (1.6-2.3) mg/dL 04/30/25 04/30/25 04/30/25 Range/Units 04:27 04:27 05:52 WBC 14.08 H (4.50-10.00) 10*3/uL RBC 2.97 L (4.40-5.60) 10*6/uL Hgb 9.6 L (13.0-17.0) g/dL Hct 28.7 L (39.6-50.0) % MCH 32.3 H (27.0-32.0) pg Immature Gran # 1.34 H (0.00-0.04) 10*3/uL Neutrophils # (Manual) 12.53 H (1.3-7.7) k/uL Lymphocytes # (Manual) 0.14 L (1.0-4.8) k/uL Metamyelocytes # (Man) 0.84 H (0) k/uL Myelocytes # (Manual) 0.28 H (0) k/uL ABG pH 7.46 H (7.35-7.45) ABG pCO2 52 H (35-45) mmHg ABG pO2 67 L (83-108) mmHg ABG HCO3 37 H (21-25) mmol/L ABG Total CO2 38 H (19-24) mmol/L Hemoglobin 8.9 L (13.0-17.5) gm/dL Sodium 128 L (137-145) mmol/L Potassium 3.3 L (3.5-5.1) mmol/L Chloride 91 L (98-107) mmol/L BUN 7 L (9-20) mg/dL Creatinine 0.21 L (0.66-1.25) mg/dL Glucose 131 H (74-99) mg/dL POC Glucose (mg/dL) (70-110) mg/dL Calcium 7.8 L (8.4-10.2) mg/dL Magnesium 1.4 L (1.6-2.3) mg/dL 04/30/25 Range/Units 06:24 WBC (4.50-10.00) 10*3/uL RBC (4.40-5.60) 10*6/uL Hgb (13.0-17.0) g/dL Hct (39.6-50.0) % MCH (27.0-32.0) pg Immature Gran # (0.00-0.04) 10*3/uL Neutrophils # (Manual) (1.3-7.7) k/uL Lymphocytes # (Manual) (1.0-4.8) k/uL Metamyelocytes # (Man) (0) k/uL Myelocytes # (Manual) (0) k/uL ABG pH (7.35-7.45) ABG pCO2 (35-45) mmHg ABG pO2 (83-108) mmHg ABG HCO3 (21-25) mmol/L ABG Total CO2 (19-24) mmol/L Hemoglobin (13.0-17.5) gm/dL Sodium (137-145) mmol/L Potassium (3.5-5.1) mmol/L Chloride (98-107) mmol/L BUN (9-20) mg/dL Creatinine (0.66-1.25) mg/dL Glucose (74-99) mg/dL POC Glucose (mg/dL) 135 H (70-110) mg/dL Calcium (8.4-10.2) mg/dL Magnesium (1.6-2.3) mg/dL Assessment and Plan Plan: Acute hypoxic respiratory failure, multifactorial. The patient continues to have a very weak cough. The patient developed an extensive left lower lobe pneumonia due to Serratia. The patient was treated successfully and the patient was stable and ultimately went back into respiratory failure which I believe is related to her recurrent pneumonia. Currently on no antibiotics. Chronic respiratory insufficiency due to prolonged hospitalization, recurrent pneumonia and a very weak cough mechanism following a spine surgery T8 spinal cord injury. The patient has severe spinal canal stenosis at the level of C7/T1 with motor weakness in the lower extremities in addition to myelopathy. The patient is post C7/T1 discectomy with decompression and fusion and the patient also had extension of a previous C2/7 fusion to T3. Thrombocytopenia, recovered Abdominal distention/ileus, recovered, and the patient has a PEG tube and the patient is receiving enteral feeding for history of support Obstructive sleep apnea maintain CPAP therapy on outpatient basis Diabetes mellitus type 2, with steroid-induced hyperglycemia, currently on Lantus 5 units daily and sliding scale coverage Hypotension, rule out septic versus neurogenic hypotension post spine surgery, recovered Hyperlipidemia Bilateral lower extremity weakness, ongoing motor weakness in the lower extremities bilaterally with absent motor function at this point with bilateral foot drop. Patient's sensations in the lower limbs have improved, but now patient is completely paraplegic. T8 spinal cord injury with motor paralysis lower extremities bilaterally with absent sensation. He does have some feelings in his lower abdomen towards the groin. History of prior cervical fusion C3-C7 History of severe L5-S1 neuroforaminal stenosis Plan Continue ventilator support obtain noncontrast CAT scan of the chest Completed the course of antibiotics, currently on no antibiotics Aggressive pulmonary toileting Continue DuoNeb nebulizer treatments [id number] Pain control and muscle relaxants IV fluids to KVO Continue vital HP for enteral feeding and nutritional support. I Dilaudid for pain control in combination with [place] as needed Prednisone 20 mg p.o. daily. Keep Samuels catheter in place Aggressive pulmonary toileting we will continue to follow make further recommendations based on his progress. This evaluation was done 35 minutes. Time with Patient: Greater than 30
--- NOTE | 2025-04-30 12:33 | P.PN ---
Subjective Progress Note Date: 04/30/25 Subjective: Patient seen and examined at bedside. Trached and mechanically ventilated, PEG tube in place. Pertinent positives and negatives as discussed above, a complete review of systems was performed and all other systems are negative. Vitals Signs Reviewed. General: Nontoxic, no distress, appears at stated age Derm: Warm, dry Head: Atraumatic, normocephalic, symmetric, Eyes: EOMI, no lid lag, anicteric sclera Mouth: No lip lesion, mucus membranes moist Cardiovascular: S1S2 reg, no murmur Lungs: Reduced breath sounds on the left lower lobe, no accessory muscle use, trach, mechanically ventilated Abdominal: Soft, nontender to palpation, no guarding, no appreciable organomegaly Ext: No gross muscle atrophy, no edema, no contractures Neuro: Flaccid paralysis in bilateral lower extremity, reduced sensation below abdomen Psych: Alert, oriented, appropriate affect Data Reviewed Today: Pertinent Labs: WBC 14.08, hemoglobin 9.6, sodium 128, creatinine 0.21, magnesium 1.4 Imaging: Chest x-ray independently interpreted, similar to yesterday Assessment and Plan: #. Respiratory failure status post trach #. Acute hypoxemic and hypercapnic respiratory failure secondary to severe atelectasis and mucous plugging status post bronchoscopy x 2 #. Healthcare acquired Pneumonia secondary to Serratia and Milagros, resolved #. Leukocytosis, again with bandemia #. Persistent atelectasis, resolved #. Hyponatremia - Remains in ICU, now status post trach and PEG Continue with steroid taper, on prednisone 20 mg daily today Continue DuoNebs 4 times daily and every 2 hours as needed Meropenem, zosyn and Fluconazole course previously completed Aggressive pulmonary toileting Monitor CBC, will need to continue to monitor for worsening respiratory status, and respiratory infection - dc to select speciality facility when bed available - Tube feeds via PEG tube, at goal rate - DC fluids - Patient likely slightly hypovolemic, given 1 dose of 40 IV Lasix today #. Cervical myelopathy secondary to severe spinal canal stenosis involving C7-T1 #. Status post extensive cervical decompression with discectomy at C7-T1 and fusion with extension of fusion from C3-C7 with new extension down to T3 #. Severe right L5-S1 neuroforaminal stenosis #. Moderate bilateral L4-L5 neuroforaminal stenosis Orthopedic surgery following status post extensive cervical decompression with dissecting at C7-T1 and fusion with extension of fusion from C3-C7 with new extension down to T3 Continue Prednisone 20 mg PO daily, will taper Completed course of IV cefazolin for post surgical skin infection Continue neurochecks every 4 hours and as needed. Maintain fall precautions Continue Samuels catheter Continue Unna boot bilaterally to prevent foot drop PT/OT Social work following with regards to disposition #. Type II fxy-ekielup-lyrmpqvdq diabetes mellitus #. Hyperglycemia, resolved - Lantus 5 units daily, sliding scale insulin, monitor for hypoglycemia #. Hypokalemia #. Hypomagnesemia - Being given potassium oral, repeat BMP tomorrow - And IV magnesium given today #. Bilateral lower extremity edema Bilateral lower extremity Doppler ultrasound negative for DVT #. Thrombocytopenia, stable, resolved #. normocytic anemia, stable # Respiratory acidosis, resolved # Metabolic alkalosis, resolved Hypotension, resolved - Continue to hold antihypertensives Chronic: #. Hypertension #. Hyperlipidemia #. Obstructive sleep apnea #. BPH #. Restless leg syndrome #. Neuropathy DVT ppx: Lovenox Code status: Full code Anticipated discharge place: Pending clinical course Anticipated discharge time: Pending clinical course Objective - Vital Signs Vital signs: Vital Signs Temp 100.3 F H 04/30/25 08:00 Pulse 100 04/30/25 11:34 Resp 23 04/30/25 11:00 BP 121/63 04/30/25 11:00 Pulse Ox 92 L 04/30/25 11:00 FiO2 60 04/30/25 11:15 Intake & Output 04/29/25 04/30/25 04/30/25 18:59 06:59 18:59 Intake Total 6423.678 0273.447 432.768 Output Total 1895 660 935 Balance -216.146 2997.447 -502.232 Weight 100.7 kg Intake: IV 900 900 170 Sodium Chloride 0.9% 1, 900 900 170 000 ml @ 75 mls/hr IV . [id number] JUAN LUIS Rx#:[id number] Intake, IV Titration 163.782 282.447 102.768 Amount propofoL 1,000 mg In 163.782 282.447 102.768 Empty Bag 1 bag @ 15 MCG/ KG/MIN 9.099 mls/hr IV . Q11H JUAN LUIS Rx#:[id number] Tube Feeding 480 480 160 Other 210 720 Output: Urine 1895 660 935 Other: Voiding Method Indwelling Catheter Indwelling Catheter Indwelling Catheter - Labs CBC & Chem 7: 04/30/25 04:27 04/30/25 11:29 Labs: Abnormal Lab Results - Last 24 Hours (Table) 04/29/25 04/29/25 04/30/25 Range/Units 17:42 23:18 04:27 WBC 14.08 H (4.50-10.00) 10*3/uL RBC 2.97 L (4.40-5.60) 10*6/uL Hgb 9.6 L (13.0-17.0) g/dL Hct 28.7 L (39.6-50.0) % MCH 32.3 H (27.0-32.0) pg Immature Gran # 1.34 H (0.00-0.04) 10*3/uL Neutrophils # (Manual) 12.53 H (1.3-7.7) k/uL Lymphocytes # (Manual) 0.14 L (1.0-4.8) k/uL Metamyelocytes # (Man) 0.84 H (0) k/uL Myelocytes # (Manual) 0.28 H (0) k/uL ABG pH (7.35-7.45) ABG pCO2 (35-45) mmHg ABG pO2 (83-108) mmHg ABG HCO3 (21-25) mmol/L ABG Total CO2 (19-24) mmol/L Hemoglobin (13.0-17.5) gm/dL Sodium (137-145) mmol/L Potassium (3.5-5.1) mmol/L Chloride (98-107) mmol/L BUN (9-20) mg/dL Creatinine (0.66-1.25) mg/dL Glucose (74-99) mg/dL POC Glucose (mg/dL) 251 H 162 H (70-110) mg/dL Calcium (8.4-10.2) mg/dL Magnesium (1.6-2.3) mg/dL 04/30/25 04/30/25 04/30/25 Range/Units 04:27 05:52 06:24 WBC (4.50-10.00) 10*3/uL RBC (4.40-5.60) 10*6/uL Hgb (13.0-17.0) g/dL Hct (39.6-50.0) % MCH (27.0-32.0) pg Immature Gran # (0.00-0.04) 10*3/uL Neutrophils # (Manual) (1.3-7.7) k/uL Lymphocytes # (Manual) (1.0-4.8) k/uL Metamyelocytes # (Man) (0) k/uL Myelocytes # (Manual) (0) k/uL ABG pH 7.46 H (7.35-7.45) ABG pCO2 52 H (35-45) mmHg ABG pO2 67 L (83-108) mmHg ABG HCO3 37 H (21-25) mmol/L ABG Total CO2 38 H (19-24) mmol/L Hemoglobin 8.9 L (13.0-17.5) gm/dL Sodium 128 L (137-145) mmol/L Potassium 3.3 L (3.5-5.1) mmol/L Chloride 91 L (98-107) mmol/L BUN 7 L (9-20) mg/dL Creatinine 0.21 L (0.66-1.25) mg/dL Glucose 131 H (74-99) mg/dL POC Glucose (mg/dL) 135 H (70-110) mg/dL Calcium 7.8 L (8.4-10.2) mg/dL Magnesium 1.4 L (1.6-2.3) mg/dL 04/30/25 Range/Units 11:32 WBC (4.50-10.00) 10*3/uL RBC (4.40-5.60) 10*6/uL Hgb (13.0-17.0) g/dL Hct (39.6-50.0) % MCH (27.0-32.0) pg Immature Gran # (0.00-0.04) 10*3/uL Neutrophils # (Manual) (1.3-7.7) k/uL Lymphocytes # (Manual) (1.0-4.8) k/uL Metamyelocytes # (Man) (0) k/uL Myelocytes # (Manual) (0) k/uL ABG pH (7.35-7.45) ABG pCO2 (35-45) mmHg ABG pO2 (83-108) mmHg ABG HCO3 (21-25) mmol/L ABG Total CO2 (19-24) mmol/L Hemoglobin (13.0-17.5) gm/dL Sodium (137-145) mmol/L Potassium (3.5-5.1) mmol/L Chloride (98-107) mmol/L BUN (9-20) mg/dL Creatinine (0.66-1.25) mg/dL Glucose (74-99) mg/dL POC Glucose (mg/dL) 207 H (70-110) mg/dL Calcium (8.4-10.2) mg/dL Magnesium (1.6-2.3) mg/dL
[2025-04-30 17:58] LABS: Glucose,Whole Blood 197 mg/dL (70-110)
--- NOTE | 2025-04-30 19:32 | P.PN ---
Subjective Progress Note Date: 04/30/25 No acute events Objective - Vital Signs Vital signs: Vital Signs Temp 100.3 F H 04/30/25 16:00 Pulse 110 H 04/30/25 19:00 Resp 23 04/30/25 19:00 BP 121/66 04/30/25 19:00 Pulse Ox 98 04/30/25 19:00 FiO2 60 04/30/25 16:23 Intake & Output 04/30/25 04/30/25 05/01/25 06:59 18:59 06:59 Intake Total 2382.447 938.037 Output Total 660 3130 Balance 1722.447 -2191.963 Weight 100.7 kg Intake: IV 900 250 Sodium Chloride 0.9% 1, 900 250 000 ml @ 75 mls/hr IV . [id number] JUAN LUIS Rx#:[id number] Intake, IV Titration 282.447 178.037 Amount propofoL 1,000 mg In 282.447 178.037 Empty Bag 1 bag @ 15 MCG/ KG/MIN 9.099 mls/hr IV . Q11H JUAN LUIS Rx#:[id number] Tube Feeding 480 480 Other 720 30 Output: Urine 660 3130 Other: Voiding Method Indwelling Catheter Indwelling Catheter - EENT EENT Comment(s): Tracheostomy in place - Gastrointestinal Gastrointestinal Comment(s): PEG tube in place - Labs CBC & Chem 7: 04/30/25 04:27 04/30/25 18:27 Labs: Abnormal Lab Results - Last 24 Hours (Table) 04/29/25 04/30/25 04/30/25 Range/Units 23:18 04:27 04:27 WBC 14.08 H (4.50-10.00) 10*3/uL RBC 2.97 L (4.40-5.60) 10*6/uL Hgb 9.6 L (13.0-17.0) g/dL Hct 28.7 L (39.6-50.0) % MCH 32.3 H (27.0-32.0) pg Immature Gran # 1.34 H (0.00-0.04) 10*3/uL Neutrophils # (Manual) 12.53 H (1.3-7.7) k/uL Lymphocytes # (Manual) 0.14 L (1.0-4.8) k/uL Metamyelocytes # (Man) 0.84 H (0) k/uL Myelocytes # (Manual) 0.28 H (0) k/uL ABG pH (7.35-7.45) ABG pCO2 (35-45) mmHg ABG pO2 (83-108) mmHg ABG HCO3 (21-25) mmol/L ABG Total CO2 (19-24) mmol/L Hemoglobin (13.0-17.5) gm/dL Sodium 128 L (137-145) mmol/L Potassium 3.3 L (3.5-5.1) mmol/L Chloride 91 L (98-107) mmol/L BUN 7 L (9-20) mg/dL Creatinine 0.21 L (0.66-1.25) mg/dL Glucose 131 H (74-99) mg/dL POC Glucose (mg/dL) 162 H (70-110) mg/dL Calcium 7.8 L (8.4-10.2) mg/dL Magnesium 1.4 L (1.6-2.3) mg/dL 04/30/25 04/30/25 04/30/25 Range/Units 05:52 06:24 11:32 WBC (4.50-10.00) 10*3/uL RBC (4.40-5.60) 10*6/uL Hgb (13.0-17.0) g/dL Hct (39.6-50.0) % MCH (27.0-32.0) pg Immature Gran # (0.00-0.04) 10*3/uL Neutrophils # (Manual) (1.3-7.7) k/uL Lymphocytes # (Manual) (1.0-4.8) k/uL Metamyelocytes # (Man) (0) k/uL Myelocytes # (Manual) (0) k/uL ABG pH 7.46 H (7.35-7.45) ABG pCO2 52 H (35-45) mmHg ABG pO2 67 L (83-108) mmHg ABG HCO3 37 H (21-25) mmol/L ABG Total CO2 38 H (19-24) mmol/L Hemoglobin 8.9 L (13.0-17.5) gm/dL Sodium (137-145) mmol/L Potassium (3.5-5.1) mmol/L Chloride (98-107) mmol/L BUN (9-20) mg/dL Creatinine (0.66-1.25) mg/dL Glucose (74-99) mg/dL POC Glucose (mg/dL) 135 H 207 H (70-110) mg/dL Calcium (8.4-10.2) mg/dL Magnesium (1.6-2.3) mg/dL 04/30/25 Range/Units 17:57 WBC (4.50-10.00) 10*3/uL RBC (4.40-5.60) 10*6/uL Hgb (13.0-17.0) g/dL Hct (39.6-50.0) % MCH (27.0-32.0) pg Immature Gran # (0.00-0.04) 10*3/uL Neutrophils # (Manual) (1.3-7.7) k/uL Lymphocytes # (Manual) (1.0-4.8) k/uL Metamyelocytes # (Man) (0) k/uL Myelocytes # (Manual) (0) k/uL ABG pH (7.35-7.45) ABG pCO2 (35-45) mmHg ABG pO2 (83-108) mmHg ABG HCO3 (21-25) mmol/L ABG Total CO2 (19-24) mmol/L Hemoglobin (13.0-17.5) gm/dL Sodium (137-145) mmol/L Potassium (3.5-5.1) mmol/L Chloride (98-107) mmol/L BUN (9-20) mg/dL Creatinine (0.66-1.25) mg/dL Glucose (74-99) mg/dL POC Glucose (mg/dL) 197 H (70-110) mg/dL Calcium (8.4-10.2) mg/dL Magnesium (1.6-2.3) mg/dL Microbiology - Last 24 Hours (Table) 03/26/25 15:53 Fungal Culture - Final Bronchoalviolar Lavage - Left Milagros albicans Assessment and Plan Plan: 65-year-old male status post tracheostomy and PEG tube placement. Continue vent management per ICU team. Continue to advance PEG to goal feeds.
--- NOTE | 2025-05-01 00:47 | CT ---
EXAM: CT Chest Without Intravenous Contrast CLINICAL HISTORY: ITS.REASON CT Reason: r/o pleural effusion TECHNIQUE: Axial computed tomography images of the chest without intravenous contrast. CTDI is 12.8 mGy and DLP is 563.3 mGy-cm. This CT exam was performed using one or more of the following dose reduction techniques: automated exposure control, adjustment of the mA and/or kV according to patient size, and/or use of iterative reconstruction technique. COMPARISON: No relevant prior studies available. FINDINGS: Lungs: See below. Pleural space: Unremarkable. No pneumothorax. No significant effusion. Heart: Unremarkable. No cardiomegaly. No significant pericardial effusion. No significant coronary artery calcifications. Bones/joints: Unremarkable. No acute fracture. No dislocation. Soft tissues: Recent posterior cervical-thoracic fusion hardware with moderate air and fluid in the posterior soft tissues. Vasculature: Unremarkable. No thoracic aortic aneurysm. Lymph nodes: Unremarkable. No enlarged lymph nodes. Liver: Hepatic steatosis. Gallbladder and bile ducts: Cholecystectomy. Tubes, lines and devices: Peg tube terminates in the stomach. Midline tracheostomy tube. Dependent airspace consolidations, concerning for aspiration pneumonia. Small bilateral parapneumonic effusions. IMPRESSION: Midline tracheostomy tube. Dependent airspace consolidations, concerning for aspiration pneumonia. Small bilateral parapneumonic effusions. Recent posterior cervical-thoracic fusion hardware with moderate air and fluid in the posterior soft tissues.
[2025-05-01 00:49] LABS: Glucose,Whole Blood 185 mg/dL (70-110)
[2025-05-01 04:50] LABS: ABG PCO2 53 mmHg (35-45); ABG PH 7.49 (7.35-7.45); ABG PO2 71 mmHg (83-108); ABG TCO2 42 mmol/L (19-24); Allen Test Performed? Yes
[2025-05-01 04:51] LABS: ABG HCO3 40 mmol/L (21-25)
[2025-05-01 05:46] LABS: Basophils # (A) 0.07 10*3/uL (0.00-0.10); Basophils % (A) 0.3 %; Eosinophils # (A) 0.03 10*3/uL (0.04-0.35); Eosinophils % (A) 0.1 %; HCT 28.9 % (39.6-50.0); HGB 9.1 g/dL (13.0-17.0); Lymphocytes # (A) 0.96 10*3/uL (0.90-5.00); Lymphocytes % (A) 4.7 %; MCH 30.0 pg (27.0-32.0); MCHC 31.5 g/dL (32.0-37.0); MCV 95.4 fL (80.0-97.0); Monocytes # (A) 2.03 10*3/uL (0.20-1.00); Monocytes % (A) 9.9 %; Neutrophils # (A) 15.74 10*3/uL (1.80-7.70); Neutrophils % (A) 76.6 %; Platelet Count 293 10*3/uL (140-440); RBC 3.03 10*6/uL (4.40-5.60); RDW 15.1 % (11.5-14.5); WBC 20.56 10*3/uL (4.50-10.00)
[2025-05-01 06:11] LABS: African American GFR (CKD) >90 (>60 ml/min/1.73 sqM); Blood Urea Nitrogen 11 mg/dL (9-20); Calcium 8.6 mg/dL (8.4-10.2); Carbon Dioxide 39 mmol/L (22-30); Chloride 94 mmol/L (98-107); Glucose 172 mg/dL (74-99); Magnesium 1.6 mg/dL (1.6-2.3); Non-African American GFR(CKD) >90 (>60 ml/min/1.73 sqM); Potassium 3.8 mmol/L (3.5-5.1)
[2025-05-01 06:24] LABS: Anion Gap 4 mmol/L; Sodium 137 mmol/L (137-145)
[2025-05-01] MEDS ORDERED: Magnesium Replacement Protocol 1 EACH MISC MISCELLANE PRN (06:58)
[2025-05-01] MEDS ORDERED: Potassium Replacement Protocol 1 EACH MISC MISCELLANE PRN (07:10)
[2025-05-01] MEDS: MAGNESIUM SULFATE-D5W PMX 1 GM in DEXTROSE/WATER 1 100ML.BAG IVPB SCH (07:12)
[2025-05-01] MEDS: POTASSIUM BICARBONATE/CIT AC 20 MEQ TABLET.EFF NG-TUBE SCH (07:36)
--- NOTE | 2025-05-01 08:07 | XR ---
EXAMINATION TYPE: XR chest 1V portable DATE OF EXAM: 05/01/2025 5:04 AM COMPARISON: 04/30/2025 CLINICAL INDICATION: Male, 65 years old with history of mechanical ventilation, , FINDINGS: Heart normal size. Mild hyperinflation. Tracheostomy cannula. ACF hardware and posterior cervical fus ion hardware. Plmsc-wa-jmprqhny bilateral pleural effusions persist. IMPRESSION: Persistent [id number] bilateral pleural effusions with adjacent atelectasis and/or consolidati on. [facility], , 05/01/2025 8:05 AM
[2025-05-01] MEDS ORDERED: VANCOMYCIN IV PER PHARMACY 1 EACH MISC MISCELLANE PRN (10:35)
[2025-05-01 11:41] LABS: Glucose,Whole Blood 221 mg/dL (70-110)
[2025-05-01] MEDS: VANCOMYCIN 2,000 MG in SODIUM CHLORIDE 0.9% 500 ML 500 ML IVPB SCH (12:25)
[2025-05-01] MEDS: FUROSEMIDE 10 MG/ML 4 ML VIAL IV STA (12:25)
[2025-05-01] MEDS: CEFEPIME 2 GM in SODIUM CHLORIDE 0.9% 100 ML IVPB SCH (12:26)
--- NOTE | 2025-05-01 12:51 | P.PN ---
Subjective Progress Note Date: 05/01/25 Subjective: Patient seen and examined at bedside. Trached and mechanically ventilated, PEG tube in place. Pertinent positives and negatives as discussed above, a complete review of systems was performed and all other systems are negative. Vitals Signs Reviewed. General: Nontoxic, no distress, appears at stated age Derm: Warm, dry Head: Atraumatic, normocephalic, symmetric, Eyes: EOMI, no lid lag, anicteric sclera Mouth: No lip lesion, mucus membranes moist Cardiovascular: S1S2 reg, no murmur Lungs: Reduced breath sounds on the left lower lobe, no accessory muscle use, trach, mechanically ventilated Abdominal: Soft, nontender to palpation, no guarding, no appreciable organomegaly Ext: No gross muscle atrophy, no edema, no contractures Neuro: Flaccid paralysis in bilateral lower extremity, reduced sensation below abdomen Psych: Alert, oriented, appropriate affect Data Reviewed Today: Pertinent Labs: WBC 20.56, hemoglobin 9.1, sodium 137, bicarb 39, creatinine 0.23, blood sugars range between 172-221, magnesium 1.6 Imaging: Chest CT shows concerns for aspiration pneumonia. Chest x-ray independently interpreted, similar to yesterday. Assessment and Plan: #. Aspiration pneumonia #. Acute hypoxemic and hypercapnic respiratory failure secondary to severe atelectasis and mucous plugging status post bronchoscopy x 2 now status post trach #. Previous healthcare acquired Pneumonia secondary to Serratia and Milagros, resolved #. Leukocytosis, secondary to above #. Hyponatremia, resolved Remains in ICU, now status post trach and PEG Continue with steroid taper, on prednisone 20 mg daily today Continue DuoNebs 4 times daily and every 2 hours as needed Patient restarted on cefepime 2 g IV every 8 hours and IV vancomycin, monitor for renal toxicity, previously completed courses of meropenem, zosyn and Fluconazole Aggressive pulmonary toileting Monitor CBC, will need to continue to monitor for worsening respiratory status, and respiratory infection dc to select speciality facility when bed available Tube feeds via PEG tube, at goal rate #. Cervical myelopathy secondary to severe spinal canal stenosis involving C7-T1 #. Status post extensive cervical decompression with discectomy at C7-T1 and fusion with extension of fusion from C3-C7 with new extension down to T3 #. Severe right L5-S1 neuroforaminal stenosis #. Moderate bilateral L4-L5 neuroforaminal stenosis Orthopedic surgery following status post extensive cervical decompression with dissecting at C7-T1 and fusion with extension of fusion from C3-C7 with new extension down to T3 Continue Prednisone 20 mg PO daily, will taper Completed course of IV cefazolin for post surgical skin infection #. Type II [id number]-oadtgywxo diabetes mellitus #. Hyperglycemia, resolved - Lantus 5 units daily, sliding scale insulin, monitor for hypoglycemia #. Hypokalemia, resolved #. Hypomagnesemia, resolved #. Bilateral lower extremity edema, stable #. Thrombocytopenia, stable, resolved #. normocytic anemia, stable # Respiratory acidosis, resolved # Metabolic alkalosis, resolved Hypotension, resolved - Continue to hold antihypertensives Chronic: #. Hypertension #. Hyperlipidemia #. Obstructive sleep apnea #. BPH #. Restless leg syndrome #. Neuropathy DVT ppx: Lovenox Code status: Full code Anticipated discharge place: Pending clinical course Anticipated discharge time: Pending clinical course Objective - Vital Signs Vital signs: Vital Signs Temp 100.4 F H 05/01/25 08:00 Pulse 98 05/01/25 12:13 Resp 25 H 05/01/25 09:00 BP 116/64 05/01/25 09:00 Pulse Ox 94 L 05/01/25 09:00 FiO2 60 05/01/25 12:10 Intake & Output 04/30/25 05/01/25 05/01/25 18:59 06:59 18:59 Intake Total 938.037 580.027 490 Output Total 3130 930 430 Balance -2191.963 -349.973 60 Weight 100.4 kg Intake: IV 250 110 40 0.9@10 20 Sodium Chloride 0.9% 1, 250 110 20 000 ml @ 75 mls/hr IV . [id number] JUAN LUIS Rx#:[id number] Intake, IV Titration 178.037 30.027 Amount propofoL 1,000 mg In 178.037 30.027 Empty Bag 1 bag @ 15 MCG/ KG/MIN 9.099 mls/hr IV . Q11H JUAN LUIS Rx#:[id number] Tube Feeding 480 440 360 Other 30 90 Output: Urine 3130 930 430 Other: Voiding Method Indwelling Catheter Indwelling Catheter - Labs CBC & Chem 7: 05/01/25 05:08 05/01/25 05:08 Labs: Abnormal Lab Results - Last 24 Hours (Table) 0605/01/25 05/01/25 Range/Units 17:57 00:47 04:45 WBC (4.50-10.00) 10*3/uL RBC (4.40-5.60) 10*6/uL Hgb (13.0-17.0) g/dL Hct (39.6-50.0) % MCHC (32.0-37.0) g/dL MPV (9.5-12.2) fL Immature Gran # (0.00-0.04) 10*3/uL Neutrophils # (1.80-7.70) 10*3/uL Monocytes # (0.20-1.00) 10*3/uL Eosinophils # (0.04-0.35) 10*3/uL ABG pH 7.49 H (7.35-7.45) ABG pCO2 53 H (35-45) mmHg ABG pO2 71 L (83-108) mmHg ABG HCO3 40 H* (21-25) mmol/L ABG Total CO2 42 H (19-24) mmol/L Hemoglobin 9.2 L (13.0-17.5) gm/dL Chloride (98-107) mmol/L Carbon Dioxide (22-30) mmol/L Creatinine (0.66-1.25) mg/dL Glucose (74-99) mg/dL POC Glucose (mg/dL) 197 H 185 H (70-110) mg/dL 05/01/25 05/01/25 05/01/25 Range/Units 05:08 05:08 11:39 WBC 20.56 H (4.50-10.00) 10*3/uL RBC 3.03 L (4.40-5.60) 10*6/uL Hgb 9.1 L (13.0-17.0) g/dL Hct 28.9 L (39.6-50.0) % MCHC 31.5 L (32.0-37.0) g/dL MPV 9.3 L (9.5-12.2) fL Immature Gran # 1.73 H (0.00-0.04) 10*3/uL Neutrophils # 15.74 H (1.80-7.70) 10*3/uL Monocytes # 2.03 H (0.20-1.00) 10*3/uL Eosinophils # 0.03 L (0.04-0.35) 10*3/uL ABG pH (7.35-7.45) ABG pCO2 (35-45) mmHg ABG pO2 (83-108) mmHg ABG HCO3 (21-25) mmol/L ABG Total CO2 (19-24) mmol/L Hemoglobin (13.0-17.5) gm/dL Chloride 94 L (98-107) mmol/L Carbon Dioxide 39 H (22-30) mmol/L Creatinine 0.23 L (0.66-1.25) mg/dL Glucose 172 H (74-99) mg/dL POC Glucose (mg/dL) 221 H (70-110) mg/dL Microbiology - Last 24 Hours (Table) 03/26/25 15:53 Fungal Culture - Final Bronchoalviolar Lavage - Left Milagros albicans
--- NOTE | 2025-05-01 17:35 | P.PN ---
Subjective Progress Note Date: 05/01/25 Pt seen and examined. No acute events. Objective - Vital Signs Vital signs: Vital Signs Temp 100.3 F H 05/01/25 16:00 Pulse 102 H 05/01/25 17:00 Resp 26 H 05/01/25 17:00 BP 106/62 05/01/25 17:00 Pulse Ox 96 05/01/25 17:00 FiO2 60 05/01/25 16:00 Intake & Output 04/30/25 05/01/25 05/01/25 18:59 06:59 18:59 Intake Total 938.037 580.027 650 Output Total 3130 930 1820 Balance -2191.963 -349.973 -1170 Weight 100.4 kg 100.4 kg Intake: IV 250 110 40 0.9@10 20 Sodium Chloride 0.9% 1, 250 110 20 000 ml @ 75 mls/hr IV . [id number] JUAN LUIS Rx#:[id number] Intake, IV Titration 178.037 30.027 Amount propofoL 1,000 mg In 178.037 30.027 Empty Bag 1 bag @ 15 MCG/ KG/MIN 9.099 mls/hr IV . Q11H JUAN LUIS Rx#:[id number] Tube Feeding 480 440 520 Other 30 90 Output: Urine 3130 930 1820 Other: Voiding Method Indwelling Catheter Indwelling Catheter Indwelling Catheter - EENT EENT Comment(s): trach in place - Gastrointestinal Gastrointestinal Comment(s): gastric tube in place - Labs CBC & Chem 7: 05/01/25 05:08 05/01/25 16:28 Labs: Abnormal Lab Results - Last 24 Hours (Table) 04/30/25 05/01/25 05/01/25 Range/Units 17:57 00:47 04:45 WBC (4.50-10.00) 10*3/uL RBC (4.40-5.60) 10*6/uL Hgb (13.0-17.0) g/dL Hct (39.6-50.0) % MCHC (32.0-37.0) g/dL MPV (9.5-12.2) fL Immature Gran # (0.00-0.04) 10*3/uL Neutrophils # (1.80-7.70) 10*3/uL Monocytes # (0.20-1.00) 10*3/uL Eosinophils # (0.04-0.35) 10*3/uL ABG pH 7.49 H (7.35-7.45) ABG pCO2 53 H (35-45) mmHg ABG pO2 71 L (83-108) mmHg ABG HCO3 40 H* (21-25) mmol/L ABG Total CO2 42 H (19-24) mmol/L Hemoglobin 9.2 L (13.0-17.5) gm/dL Chloride (98-107) mmol/L Carbon Dioxide (22-30) mmol/L Creatinine (0.66-1.25) mg/dL Glucose (74-99) mg/dL POC Glucose (mg/dL) 197 H 185 H (70-110) mg/dL 05/01/25 05/01/25 05/01/25 Range/Units 05:08 05:08 11:39 WBC 20.56 H (4.50-10.00) 10*3/uL RBC 3.03 L (4.40-5.60) 10*6/uL Hgb 9.1 L (13.0-17.0) g/dL Hct 28.9 L (39.6-50.0) % MCHC 31.5 L (32.0-37.0) g/dL MPV 9.3 L (9.5-12.2) fL Immature Gran # 1.73 H (0.00-0.04) 10*3/uL Neutrophils # 15.74 H (1.80-7.70) 10*3/uL Monocytes # 2.03 H (0.20-1.00) 10*3/uL Eosinophils # 0.03 L (0.04-0.35) 10*3/uL ABG pH (7.35-7.45) ABG pCO2 (35-45) mmHg ABG pO2 (83-108) mmHg ABG HCO3 (21-25) mmol/L ABG Total CO2 (19-24) mmol/L Hemoglobin (13.0-17.5) gm/dL Chloride 94 L (98-107) mmol/L Carbon Dioxide 39 H (22-30) mmol/L Creatinine 0.23 L (0.66-1.25) mg/dL Glucose 172 H (74-99) mg/dL POC Glucose (mg/dL) 221 H (70-110) mg/dL Microbiology - Last 24 Hours (Table) 04/30/25 20:20 Gram Stain - Preliminary Sputum Assessment and Plan Plan: 65-year-old male status post tracheostomy and PEG tube placement. Continue vent management per ICU team. Continue to advance PEG to goal feeds.
[2025-05-01 17:43] LABS: Glucose,Whole Blood 245 mg/dL (70-110)
--- NOTE | 2025-05-01 20:07 | P.PN ---
Subjective Progress Note Date: 05/01/25 This is a 64-year-old male patient was undergone a C 7 T1 discectomy, done posteriorly with wide laminectomy and foraminotomy and partial facetectomy. The patient was experiencing cervical myelopathy with severe bilateral lower extremity weakness and T8 paresthesia. The patient has previous history of cervical spine fusion C2-C7. The patient was found to have a large herniated disc C7-T1 with severe spinal cord stenosis and based on that the patient was taken to the operating room and underwent a C7-T1 discectomy on 03/21/2025. The patient has become progressively more hypoxic. The patient developed lower lobe pneumonia left more than right. 04/09/2025 the patient is being seen for a follow-up in the intensive care unit. This morning, the patient is awake and alert. He has gotten progressively more debilitated over the past 10 days. He is managed in the intensive care unit for his acute hypoxic respiratory failure and left lower lobe pneumonia. He has required 2 bronchoscopies and the bronchoscopy is done on 03/26/2025 showed Serratia marcescens and the patient's nasal screen was positive for MSSA. The most recent chest x-ray from this morning shows a persistent consolidation in the left lung base and some atelectatic change in lung base bilaterally. No significant interval change compared to earlier chest x-rays. The patient remains on Airvo and earlier this morning the patient was on 6 L with an FiO2 of 65%. IV fluids are currently at KVO. The patient remains on IV cefazolin. Samuels catheter is in place. He has developed increased edema in his right upper extremity. Hemodynamically stable. The white cell count is at 10.2 with a hemoglobin 12.1 and a platelet count of 85. BUN is 19 with a creatinine of 0.37. Remains on IV Solu-Medrol. Spine surgery is on the case. He continues to have difficulties with lower extremity paralysis. He does have some numbness which is improved around his abdomen towards the groin. He does not have any sensation in his lower extremities except for some increased sensation in his right greater toe and no motor function in his lower extremities bilaterally. He is wearing compression stockings and boots. He does have some weakness also in his upper extremities. The patient is postop day #17. He is awake and alert and communicating. He is off the BiPAP. He remains on NovoLog 10 units 3 times daily with meals. Rest of the medications are essentially unchanged. 05/07/2025, patient is being seen for a follow-up. Oxygenation is stable for now. The patient was taken off the Airvo yesterday and the patient was placed on 10 L of oxygen by nasal cannula. Earlier this morning, the patient showed adequate oxygenation and the patient was further weaned down to 8 L/min nasal cannula. Chest x-ray shows a stable left lower lobe consolidation. The patient remains on the same antibiotics and the patient remains IV cefazolin. Cough remains weak. IV fluids are currently at KVO. No fever or chills. He does juan ve some sensation in lower extremities bilaterally although this is minimal. Motor function is still absent. The white cell count 8.7 with a hemoglobin 11.7 and a platelet count of 90. BUN 17 with a creatinine 0.49 and sodium is 136. No other significant events overnight. Will considering discharging this patient to an LTAC facility. The patient is postop day #18. On 04/11/2025, the patient is being seen for a follow-up. The patient shows ongoing improvement in the oxygenation and the patient is currently on 40 of oxygen by nasal cannula. Overnight, the patient utilizing a BiPAP at a pressure of 14 over 8 cm of water regarding his obstructive sleep apnea. He is doing well. He has some sensation above the thighs. No motor function lower extremities bilaterally. Upper extremities remain weak. Cough remains weak. He is on Lantus insulin 50 units daily and NovoLog 10 units with meals and sliding scale coverage. He remains on prednisone 40 mg p.o. daily. He remains on Lovenox for DVT prophylaxis. Samuels catheter to be discontinued today. He is awake and alert and communicating. The white cell count is 8.6 with a hemoglobin 11.4 and a platelet count of 85. BUN 16 with a creatinine 0.4. Sodium level is 133 and the blood sugar is at 169. Patient is being considered for LTAC. Insurance authorization has not been obtained. He is postop day #19. 04/12/2025, the patient is found to be slightly hypotensive. Overnight, the patient was given a bolus of 500 cc. Blood pressure is currently soft with a systolic in the mid 80s. Urine output was also low. The patient will be given another bolus of 1 L and is asked to be placed on hold. He is currently on liters of oxygen by nasal cannula. No respiratory difficulties. Neurologically unchanged. The white cell count is at 8.6 with a hemoglobin 10.8 and a platelet count has dropped further down to 55. K is at 3.9. BUN 16 with a creatinine 0.3. No antibiotics at this point and the patient remains on prednisone 40 mg p.o. daily. The patient is postop day #20. Tolerating diet. No issues with swallowing. 04/13/2025, the patient is being seen for a follow-up. The patient is calm and comfortable. Blood pressure remains soft yet stable. The patient was taken off the lisinopril. Fluid balance is +30 cc over the past 24 and the patient remains on 3 L of oxygen by nasal cannula. Afebrile. Awake and alert and communicating. Repeat chest x-ray was done this morning and it shows no lung volumes left greater than right base with small bilateral pleural effusion. No significant changes otherwise compared to yesterday. Tolerating diet. Motor function is unchanged lower extremity and the patient has no motor function in his legs bilaterally. Sensation is slightly present above the knees in the th ighs bilaterally. Motor function upper extremities 4 out of 5. The white Of 9.8 with a Heme of 10.4 and the Platelet Count of 55. BUN Is 18 with a Creatinine of 0.28 and a Sodium of 132. Glucose at 149. Patient Remains on Lovenox 40 Mg Subcu for DVT Prophylaxis. Remains on Lantus 50 Units Daily and NovoLog Sliding Scale Coverage. Rest of the Medications Are Essentially Unchanged. Remains on Prednisone 40 Mg P.O. Daily. No Issues with Pain. Continues to Wear a Hard Neck Collar. The patient is postop day #21. On 04/14/2025, the patient is being seen for a follow-up. Condition is stable and he remains on 3 L of oxygen by nasal cannula. Hemodynamically stable. Blood pressure is stable. The patient on Lantus insulin 15 yesterday. The patient on prednisone 40 mg p.o. daily. Blood work from today still pending. No new complaints otherwise for now. Tolerating diet. Having bowel movement. Using incentive spirometer. Was transitioned on the chair. Neurologically unchanged and the patient has no motor function lower extremities bilaterally. He is postop day #22. On 04/15/2025, the patient is being seen for a follow-up. Sitting up in a chair and the patient is calm and comfortable. No motor function lower extremities bilaterally in the patient's neurologic status essentially unchanged. The patient remains on oxygen and the patient is currently on 4 L of O2 nasal ca nnula with a pulse ox of 91%. Using incentive spirometer. No respiratory distress. Tolerating diet. The white cell count is 4.9 with a hemoglobin 10.3 and a platelet count of 62. BUN 17 with a creatinine of 0.4. Potassium level is at 3.0 that needs to be replaced. Platelet count is improved compared to yesterday. No other new complaints otherwise for now. April 16, 2025 in follow-up on the selective care unit. He is currently sitting up in bed. Awake and alert in no acute distress. He is maintaining O2 saturation in the low 90s on 4 L/min per nasal cannula. He has been afebrile. Hemodynamically stable. White count 3.8. Hemoglobin 9.8. Platelets 59,000. Sodium 135. Potassium 3.2. Bicarb 30. BUN 15. Creatinine 0.33. Glucose 111. He remains on DuoNeb inhalations. Lovenox for DVT prophylaxis. Remains on a prednisone taper. Awaiting a bed at [facility]. Insurance authorization remains an issue. The patient is seen today April 17, 2025 in follow-up on the selective care unit. He is sitting up in bed. Awake and alert. He is having increasing shortness of breath today with increasing dyspnea. Chest x-ray is again starting to show opacity in the left lung. He continues with a very weak cough. Unable to clear his own secretions. He has been working with respiratory therapy including with the incentive spirometer and flutter valve. He is now requiring 15 L high flow nasal cannula. He has been intolerant to BiPAP. Sodium 135. Potassium 3.8. Bicarb 32. BUN 16. Creatinine 0.40. Glucose 92. He remains on DuoNeb inhalations. Lovenox for DVT prophylaxis. Continued on Mucinex. The patient is seen today April 23, 2025 in follow-up in the intensive care unit. He had again developed respiratory distress while up on the regular medical floor and a near complete whiteout of the left lung. He was placed on BiPAP and showed improvement. Today he is sitting up in a chair. Awake and alert in no acute distress. There is still some left lower lung collapse on the chest x- ray. He remains on Airvo high flow oxygen at 55 L and 75% FiO2 during the day. He is utilizing BiPAP at night 12/8 and 60% FiO2. He remains on Zosyn. He has normal saline at KVO. He attempts to work with the incentive spirometer and the flutter valve but his voice remains weak. His cough remains very weak. He does have paraplegia. He does not even feel subcu injections into the lower abdomen. He remains on DuoNeb inhalations. Receiving chest physiotherapy. Lovenox for DVT prophylaxis. Protonix for GI prophylaxis. The patient is seen today April 24, 2025 in follow-up in the intensive care unit. He is currently sitting up in bed. Awake and alert in no acute distress. He continues to have minimal tolerance for any activity without having shortness of breath and desaturations. His chest x-ray is again showing worsening left lower lobe collapse. He refused to wear the BiPAP last evening. He remains quite anxious about it. He remains on Airvo high flow nasal cannula at 60 L and 80% FiO2. Initial bronch wash cultures from March 26, 2025 was positive for Serratia marcescens. He is currently on Zosyn. White count 8.3. Hemoglobin 10.7. Platelets 339. Sodium 136. Potassium 3.6. Bicarb 29. BUN 13. Creatinine 0 .32. Glucose 127. He remains on DuoNeb inhalations, Mucinex, prednisone. Lovenox for DVT prophylaxis. Protonix for GI prophylaxis. The patient is seen today April 26 2025 in follow-up in the intensive care unit. He is awake and alert. Still requiring BiPAP support 16/8 and 50% FiO2 to maintain O2 saturations in the 90s. He has normal saline at 75 mL/h. White count 8.7. Hemoglobin 10.3. Platelets 329. Sodium 135. Potassium 3.6. Bicarb 32. BUN 13. Creatinine 0.31. Glucose 121. Chest x-ray continues to show a left lower lobe infiltrate. He remains on DuoNeb inhalations. Currently sedated on Precedex 0.3 mcg/kg/h. Plan is for tracheostomy and PEG tube placement today. The patient is seen today April 27, 2025 in follow-up in the intensive care unit. He is currently resting in bed. Sedated on propofol at 25 mcg/kg/min. Normal saline at 75 mL/h. He is on the ventilator currently at a 6 control mode at a rate of 20, tidal volume 400, FiO2 50% and a PEEP of 8. Blood gases revealed a PO2 of 83, PCO2 of 46 and a pH of 7.45. White count 11.5. Hemoglobin 10.1. Platelets 324. Sodium 138. Potassium 2.9. Bicarb 31. BUN 11. Creatinine 0.29. Glucose 103. He remains on DuoNeb inhalations, Pulmicort and Perforomist inhalations, prednisone. Being nourished with vital HP at 10 mL/h with a goal of 40. Tracheostomy and PEG tubes placed yesterday. The patient is seen today April 28, 2025 in follow-up in the intensive care unit. He remains on mechanical ventilator via tracheostomy tube and assist-control mode at a rate of 20, tidal volume 400, FiO2 40% and a PEEP of 8. Morning blood gases revealed a PO2 of 73, [id number] and a pH of 7.46. He is sedated lightly on propofol at 10 mcg/kg/min. Normal saline at 75 mL/h. Being nourished via PEG tube with vital HP at 30 mL/h with a goal of 40 mL/h. Chest x-ray reveals retrocardiac opacity and small bilateral pleural effusions. White count 12.2. Hemoglobin 10.0. Platelets 289. Sodium 135. Potassium 3.0. Bicarb 28. BUN 7. Creatinine 0.21. Glucose 101. He remains on DuoNeb inhalations, Pulmicort and Perforomist inhalations, prednisone taper. Lovenox for DVT prophylaxis. Protonix for GI prophylaxis. The patient is seen today April 29, 2025 in follow-up in the intensive care unit. He remains on mechanical ventilator currently in assist-control mode at a rate of 20, tidal volume 400, FiO2 50% and a PEEP of 8. Morning blood gases reveal a PO2 of 84, PCO2 of 44 and a pH of 7.50. He is sedated on propofol 25 mcg/kg/min. Receiving normal saline at 75 mL/h. He is being nourished with vital HP at 40 mL/h. White count 12.6. Hemoglobin 9.0. Platelets 335. Sodium 137. Potassium 3.2. Bicarb 32. BUN 7. Creatinine 0.18. Glucose 141. Chest x-ray reveals resolution of the previous small right pleural effusion. Stable left pleural effusion. No cardiomegaly or pulmonary vascular congestion. No airspace consolidation. 04/30/2025, the patient is being seen for a follow-up. The patient remains on a mechanical ventilator. He is awake and arousable while being on propofol running at 50 mcg/kg/min. He is on assist-control mode rate of 20, tidal volume of 400, FiO2 60% with a PEEP of 8. His blood gases showing a pH of 7.46 with [id number] and PO2 of 67. The patient has a lumbar 7.5 [address] tracheostomy tube in place and the patient also has a PEG tube with vital high-protein running at 40 cc an hour. No active diarrhea and his diarrhea subsided and the fecal management system will be removed. Minimal respiratory secretions. Chest x-ray from today showing ongoing infiltrates/consolidation lung bases and small amount of fluid and atelectasis in the lung bases. Noted the patient had an extensive left lower lobe pneumonia that was attributed to Serratia marcescens and the patient was treated with broad-spectrum antibiotics and the patient was taken off antibiotics and currently is on no antibiotics. He remains on 20 mg of prednisone. Neurologically unchanged the patient has no motor function lower extremities bilaterally. He is still on Lantus insulin 5 units daily and a sliding scale coverage. He is arousable and communicating. He remains on Lovenox 40 mg subcu on a daily basis. On 05/01/2025, the patient is being seen for a follow-up. The patient remains on a mechanical ventilator. The patient is off propofol for now. Calm and comfortable. Patient has a tracheostomy tube and the patient is having copious amount of respiratory secretions, purulent around the tracheostomy stoma. Sputum sample will be sent again. Meanwhile, the patient is having fever with a Tmax of 100.4. The patient will also start on broad-spectrum antibiotics. He is currently on assist-control mode at rate of 20, tidal volume of 400, FiO2 of 60% with a PEEP of 8. Blood gas showed a pH of 7.49 with a [id number] and PO2 of 71. The patient's chest x-ray from today is showing volume loss and small to moderate-sized bilateral pleural effusion/atelectasis in the lung bases and similar findings were also noted on the CAT scan of the chest that was done on 05/01/2025. The patient was started on broad-spectrum antibiotics. The patient will be given a combination of cefepime and vancomycin. The patient had a net fluid balance of -2.5 L over the past 24 hours. Another dose of Lasix will be given today. Rest of the blood work shows a white cell count of 20 and a white cell count on the right with a hemoglobin 9.1 and a platelet count of 293. Sodium is at 137, potassium is 3.9, BUN 11 with a creatinine of 0.23. Objective - Vital Signs Vital signs: Vital Signs Temp 100.4 F H 05/01/25 08:00 Pulse 99 05/01/25 09:00 Resp 25 H 05/01/25 09:00 BP 116/64 05/01/25 09:00 Pulse Ox 94 L 05/01/25 09:00 FiO2 60 05/01/25 08:34 Intake & Output 04/30/25 05/01/25 05/01/25 18:59 06:59 18:59 Intake Total 938.037 580.027 130 Output Total 3130 930 130 Balance -2191.963 -349.973 0 Weight 100.4 kg Intake: IV 250 110 20 Sodium Chloride 0.9% 1, 250 110 20 000 ml @ 75 mls/hr IV . [id number] JUAN LUIS Rx#:[id number] Intake, IV Titration 178.037 30.027 Amount propofoL 1,000 mg In 178.037 30.027 Empty Bag 1 bag @ 15 MCG/ KG/MIN 9.099 mls/hr IV . Q11H JUAN LUIS Rx#:[id number] Tube Feeding 480 440 80 Other 30 30 Output: Urine 3130 930 130 Other: Voiding Method Indwelling Catheter Indwelling Catheter - Exam General: nontoxic, no distress, appears at stated age, patient is currently on a mechanical ventilator and the patient has a 7.[address] tracheostomy tube in place. Derm: warm, dry, intact, dressing noted at the back of neck with no signs of drainage or bleeding. Head: atraumatic, normocephalic, symmetric Eyes: EOMI, anicteric sclera Mouth: no lip lesion, mucus membranes moist Cardiovascular: S1 S2 reg, no murmur, rubs, or gallops Lungs: Diminished breath in the lung bases bilaterally. No significant wheezing. Abdominal: soft, a bowel sounds are present and the patient has a PEG tube in place. Extremities: no gross muscle atrophy, no edema, no contractures, patient is unable to move bilateral lower extremity, increased edema in the right upper extremity. Neuro: Alert, Oriented, CNII-XII grossly intact, gait cannot be assessed as the patient has absent motor function lower extremities bilaterally patient has bilateral foot drop. Reflexes are diminished. No Babinski. No clonus. - Labs CBC & Chem 7: 05/01/25 05:08 05/01/25 16:28 Labs: Abnormal Lab Results - Last 24 Hours (Table) 04/30/25 04/30/25 05/01/25 Range/Units 11:32 17:57 00:47 WBC (4.50-10.00) 10*3/uL RBC (4.40-5.60) 10*6/uL Hgb (13.0-17.0) g/dL Hct (39.6-50.0) % MCHC (32.0-37.0) g/dL MPV (9.5-12.2) fL Immature Gran # (0.00-0.04) 10*3/uL Neutrophils # (1.80-7.70) 10*3/uL Monocytes # (0.20-1.00) 10*3/uL Eosinophils # (0.04-0.35) 10*3/uL ABG pH (7.35-7.45) ABG pCO2 (35-45) mmHg ABG pO2 (83-108) mmHg ABG HCO3 (21-25) mmol/L ABG Total CO2 (19-24) mmol/L Hemoglobin (13.0-17.5) gm/dL Chloride (98-107) mmol/L Carbon Dioxide (22-30) mmol/L Creatinine (0.66-1.25) mg/dL Glucose (74-99) mg/dL POC Glucose (mg/dL) 207 H 197 H 185 H (70-110) mg/dL 05/01/25 05/01/25 05/01/25 Range/Units 04:45 05:08 05:08 WBC 20.56 H (4.50-10.00) 10*3/uL RBC 3.03 L (4.40-5.60) 10*6/uL Hgb 9.1 L (13.0-17.0) g/dL Hct 28.9 L (39.6-50.0) % MCHC 31.5 L (32.0-37.0) g/dL MPV 9.3 L (9.5-12.2) fL Immature Gran # 1.73 H (0.00-0.04) 10*3/uL Neutrophils # 15.74 H (1.80-7.70) 10*3/uL Monocytes # 2.03 H (0.20-1.00) 10*3/uL Eosinophils # 0.03 L (0.04-0.35) 10*3/uL ABG pH 7.49 H (7.35-7.45) ABG pCO2 53 H (35-45) mmHg ABG pO2 71 L (83-108) mmHg ABG HCO3 40 H* (21-25) mmol/L ABG Total CO2 42 H (19-24) mmol/L Hemoglobin 9.2 L (13.0-17.5) gm/dL Chloride 94 L (98-107) mmol/L Carbon Dioxide 39 H (22-30) mmol/L Creatinine 0.23 L (0.66-1.25) mg/dL Glucose 172 H (74-99) mg/dL POC Glucose (mg/dL) (70-110) mg/dL Microbiology - Last 24 Hours (Table) 03/26/25 15:53 Fungal Culture - Final Bronchoalviolar Lavage - Left Milagros albicans Assessment and Plan Plan: Acute hypoxic respiratory failure, multifactorial. The patient continues to have a very weak cough. The patient had a follow-up CAT scan of the chest done on 05/01/2025 and the patient was found to have consolidation/atelectasis along with small bibasilar pleural effusions. Due to concern of pneumonia, the patient will be started on broad-spectrum antibiotics. As the patient is also having a fever and leukocytosis. Sputum sample will be also collected as the patient is having purulent secretions around the tracheostomy stoma. Fever Leukocytosis Purulent secretions around the tracheostomy stoma, consider evaluation of pneumonia Chronic respiratory insufficiency due to prolonged hospitalization, recurrent pneumonia and a very weak cough mechanism following a spine surgery T8 spinal cord injury. The patient has severe spinal canal stenosis at the level of C7/T1 with motor weakness in the lower extremities in addition to myelopathy. The patient is post C7/T1 discectomy with decompression and fusion and the patient also had extension of a previous C2/7 fusion to T3. Thrombocytopenia, recovered Abdominal distention/ileus, recovered, and the patient has a PEG tube and the patient is receiving enteral feeding for history of support Obstructive sleep apnea maintain CPAP therapy on outpatient basis Diabetes mellitus type 2, with steroid-induced hyperglycemia, currently on Lantus 5 units daily and sliding scale coverage Hypotension, rule out septic versus neurogenic hypotension post spine surgery, recovered Hyperlipidemia Bilateral lower extremity weakness, ongoing motor weakness in the lower extremities bilaterally with absent motor function at this point with bilateral foot drop. Patient's sensations in the lower limbs have improved, but now patient is completely paraplegic. T8 spinal cord injury with motor paralysis lower extremities bilaterally with absent sensation. He does have some feelings in his lower abdomen towards the groin. History of prior cervical fusion C3-C7 History of severe L5-S1 neuroforaminal stenosis Plan Continue ventilator support noncontrast CAT scan of the chest was noted and is consistent with bilateral pleural effusion and atelectatic changes lung base bilaterally. Pneumonia paul ot be completely ruled out Sputum Gram stain and culture Monitor fever pattern Monitor white cell count Start the patient on IV cefepime and vancomycin Aggressive pulmonary toileting Continue DuoNeb nebulizer treatments [id number] Pain control and muscle relaxants IV fluids to KVO Continue vital HP for enteral feeding and nutritional support. Dilaudid for pain control in combination with King as needed Lantus insulin 5 units on a daily basis along with sliding scale coverage Prednisone 20 mg p.o. daily. Keep Samuels catheter in place Aggressive pulmonary toileting we will continue to follow make further recommendations based on his progress. This evaluation was done 35 minutes. Time with Patient: Greater than 30
[2025-05-01 23:30] LABS: Glucose,Whole Blood 183 mg/dL (70-110)
--- NOTE | 2025-05-02 01:33 | XR ---
EXAM: XR Chest, 1 View CLINICAL HISTORY: ITS.REASON XR Reason: desaturation TECHNIQUE: Frontal view of the chest. COMPARISON: CXR 05/01/2025. FINDINGS: Lungs: See below. Pleural space: Small left pleural effusion. Infrahilar consolidations, correlate for pneumonia/aspiration. No pneumothorax. Heart: Cardiomegaly. Mediastinum: Unremarkable. Bones/joints: Anterior and posterior cervical fusion hardware. Tubes, lines and devices: Tracheostomy tube. Right PICC line terminates in the SVC. IMPRESSION: 1. Small left pleural effusion. Infrahilar consolidations, correlate for pneumonia/aspiration. Mildly improving when compared to prior exam. 2. Tracheostomy tube.
[2025-05-02 03:23] LABS: HCT 24.8 % (39.6-50.0); HGB 7.7 g/dL (13.0-17.0); MCH 29.7 pg (27.0-32.0); MCHC 31.0 g/dL (32.0-37.0); MCV 95.8 fL (80.0-97.0); Platelet Count 247 10*3/uL (140-440); RBC 2.59 10*6/uL (4.40-5.60); RDW 15.1 % (11.5-14.5); WBC 17.51 10*3/uL (4.50-10.00)
[2025-05-02 03:41] LABS: African American GFR (CKD) >90 (>60 ml/min/1.73 sqM); Anion Gap 0 mmol/L; Blood Urea Nitrogen 17 mg/dL (9-20); Calcium 7.5 mg/dL (8.4-10.2); Carbon Dioxide 34 mmol/L (22-30); Chloride 100 mmol/L (98-107); Glucose 170 mg/dL (74-99); Non-African American GFR(CKD) >90 (>60 ml/min/1.73 sqM); Potassium 3.1 mmol/L (3.5-5.1); Sodium 134 mmol/L (137-145)
[2025-05-02] MEDS: POTASSIUM BICARBONATE/CIT AC 20 MEQ TABLET.EFF NG-TUBE SCH (04:22)
[2025-05-02] MEDS: MAGNESIUM SULFATE-D5W PMX 1 GM in DEXTROSE/WATER 1 100ML.BAG IVPB SCH (04:23)
[2025-05-02 06:42] LABS: Basophils # (M) 0.18 k/uL (0-0.2); Lymphocytes # (M) 0.53 k/uL (1.0-4.8); Metamyelocytes # (M) 0.70 k/uL (0); Monocytes # (M) 1.23 k/uL (0-1.0); Myelocytes # (M) 0.35 k/uL (0); Neutrophils # (M) 15.06 k/uL (1.3-7.7); Neutrophils % (M) 86 %; Total Cells Counted 200
[2025-05-02 06:44] LABS: Anisocytosis (M) Present; Poikilocytosis (M) Present
[2025-05-02 07:03] LABS: Glucose,Whole Blood 198 mg/dL (70-110)
--- NOTE | 2025-05-02 09:52 | XR ---
EXAMINATION TYPE: XR chest 1V portable DATE OF EXAM: 05/02/2025 6:05 AM COMPARISON: 05/01/2025 CLINICAL INDICATION: Male, 65 years old with history of mechanical ventilation, , FINDINGS: ACDF hardware and posterior cervical fusion. Tracheostomy cannula. Heart upper limits of normal in si ze. Ongoing small left pleural effusion with bibasilar densities, slightly increased on the right. Ri ght PICC tip to the cavoatrial junction. IMPRESSION: Similar small left pleural effusion with adjacent atelectasis and/or consolidation. Right basilar opa city slightly increased in the interval. [facility], , 05/02/2025 9:50 AM
--- NOTE | 2025-05-02 11:39 | P.PN ---
Progress Note - Text Progress Note Date: 05/02/25 Orthopedic spine: History of present illness: Patient is a very pleasant 65-year-old male who is seen examined at bedside in the ICU for follow-up evaluation of the cervical spine. He is status post posterior cervical decompression discectomy at C7-T1 with extension of fusion from C7 down to T3. He has not had any change from an orthopedic spine standpoint. He does have some sensation over his anterior thighs which he states again is greater on the right than the left. He has no sensation in his calfs. Compression stockings and pneumatic boots are intact. He has had a tracheostomy placed. Due to this, the anterior portion of his hard cervical collar has been removed. He continues with dressing changes as needed over the posterior cervical spine. He is not experiencing any cervical pain. He has adequate range of motion of his bilateral upper extremities except for his shoulders bilaterally. 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 He is awake and alert. He continues have significant difficulty with this bilateral lower extremities. He has some improved numbness around his abdomen towards the groin and some increased sensation over his anterior thighs. He admits to continued sensation in his right great toe. He has no motor function in his lower extremities. His lower extremity symptoms have not improved. Samuels catheter continues to be present after failing a voiding trial. He will be discharged with a catheter intact. Fecal management system has been placed. He is being managed in the ICU by pulmonary critical care. Patient has received [facility] through the [facility] for [facility] for discharge to spinal cord rehabilitation facility. They are [facility] [place], [place]. Authorization has been obtained. However, the patient is not currently stable for discharge. He continues to be seen exam by multiple medical providers including pulmonology and medicine. Physical Exam Posterior Cervical Fusion: Status post surgical day number #41 Patient is awake, alert, and oriented 3; patient is answering questions appropriately Lineman strength, thumb strength, interosseous strength, biceps strength, and triceps strength positive sustained bilaterally He is able to shrug his shoulders. Weakness with commercial loan collection officer bilaterally Hard cervical collar intact Reporting some sensation with palpation over the anterior thighs bilaterally, r ight greater than left He states he has sensation with palpation over his right great toe and other toes of the right foot and on his foot Pneumatic boots intact bilateral lower extremities Compression stockings intact bilaterally Samuels catheter intact Fecal management system intact Dressing intact at the inferior aspect of the incision site of the posterior cervicothoracic surgical site Posterior portion hard cervical collar is in tact; anterior portion is removed due to tracheostomy Tracheostomy intact Assessment: Spinal cord injury with paralysis at T8 Postoperative day #35: Status post posterior cervical decompression discectomy at C7-T1 with extension of fusion from C7-T3 Bilateral lower extremity paralysis Bilateral lower extremity loss of sensation Acute hypoxic respiratory failure Left-sided atelectasis Obstructive sleep apnea syndrome on CPAP normally Type 2 diabetes Hypotension could be related to sepsis could also be neurogenic post spinal surgery Dyslipidemia Tracheostomy placement Fecal management system placement Plan: We will continue with our plan as set forth previously. 1. Patient was transferred back to the ICU due to pulmonary status. He is awake, alert, and oriented and answering questions appropriately. He continues to be closely managed from pulmonary standpoint. Patient has received authorization through the [facility] for approval for discharge to spinal cord rehabilitation facility. They are currently planning for [facility] [place], [place]. Authorization has been obtained. 2. Patient must keep his hard cervical collar intact at all times. However, the anterior portion is currently unable to be intact due to his tracheostomy. Patient may continue with dressing changes as needed at the posterior cervical spine. 3. Patient continues to have flaccid paralysis in his bilateral lower extremities. He has had some increase in sensation around his abdomen towards his groin and admits to some increased sensation over his anterior thighs greater on the right than the left. He continues to have some sensation in his right great toe and does feel some increase sensation over the toes of the right foot and the top of the right foot. He continues to have paralysis.. They should continue with position change regularly to help prevent decubitus transfer to a bedside chair when possible. 4. When medically stable clear, patient will be planning to be discharged to a spinal cord facility for rehabilitation. They are currently planning for [facility] to [facility] [place], [place]. Authorization has been obtained. However, the patient is not currently stable for discharge. Due to the fact that this is a [facility] and is considered inpatient, the patient will be unable to follow-up for further evaluation in the outpatient setting until they are discharged from this [facility]. 5. Patient may follow-up with Jesu Villarreal PA-C or Dr. Gideon Noyola at [facility] in 2-3 weeks following discharge from spinal cord rehabilitation facility. Patient is seen and examined at bedside. I discussed the case with the nursing staff as well. Agree with the above dictation. We will check a new x-ray of his cervical spine before he leaves to follow-up on the prior fusion C3-T3. His condition neurologically is essentially unchanged. Currently he is sedated on the vent via the trach. It is possible that he goes to placement tomorrow
[2025-05-02 11:49] LABS: Glucose,Whole Blood 221 mg/dL (70-110)
--- NOTE | 2025-05-02 11:49 | P.PN ---
Subjective Progress Note Date: 05/02/25 Subjective: Patient seen and examined at bedside. Trached and mechanically ventilated, PEG tube in place. Pertinent positives and negatives as discussed above, a complete review of systems was performed and all other systems are negative. Vitals Signs Reviewed. General: Nontoxic, no distress, appears at stated age Derm: Warm, dry Head: Atraumatic, normocephalic, symmetric, Eyes: EOMI, no lid lag, anicteric sclera Mouth: No lip lesion, mucus membranes moist Cardiovascular: S1S2 reg, no murmur Lungs: Reduced breath sounds on the left lower lobe, no accessory muscle use, trach, mechanically ventilated Abdominal: Soft, nontender to palpation, no guarding, no appreciable organomegaly Ext: No gross muscle atrophy, no edema, no contractures Neuro: Flaccid paralysis in bilateral lower extremity, reduced sensation below abdomen Psych: Alert, oriented, appropriate affect Data Reviewed Today: Pertinent Labs: WBC 17.51, hemoglobin 7.7, potassium 3.1, creatinine 0.24, glucose range between 170-198, magnesium 1.6 Imaging: Chest x-ray independently interpreted, similar to yesterday. Assessment and Plan: #. Aspiration pneumonia #. Acute hypoxemic and hypercapnic respiratory failure secondary to severe atelectasis and mucous plugging status post bronchoscopy x 2 now status post t kanchan #. Previous healthcare acquired Pneumonia secondary to Serratia and Milagros, resolved #. Leukocytosis, secondary to above #. Hyponatremia, resolved Remains in ICU, now status post trach and PEG Continue with steroid taper, on prednisone 20 mg daily today Continue DuoNebs 4 times daily and every 2 hours as needed Patient restarted on cefepime 2 g IV every 8 hours and IV vancomycin, monitor f or renal toxicity, previously completed courses of meropenem, zosyn and Fluconazole Aggressive pulmonary toileting Monitor CBC, will need to continue to monitor for worsening respiratory status, and respiratory infection dc to [facility] when [facility] available Tube feeds via PEG tube, at goal rate #. Cervical myelopathy secondary to severe spinal canal stenosis involving C7-T1 #. Status post extensive cervical decompression with discectomy at C7-T1 and fusion with extension of fusion from C3-C7 with new extension down to T3 #. Severe right L5-S1 neuroforaminal stenosis #. Moderate bilateral L4-L5 neuroforaminal stenosis Orthopedic surgery following status post extensive cervical decompression with dissecting at C7-T1 and fusion with extension of fusion from C3-C7 with new ext ension down to T3 Continue Prednisone 20 mg PO daily, will taper Completed course of IV cefazolin for post surgical skin infection #. Type II [id number]-cyaxqbenn diabetes mellitus #. Hyperglycemia, resolved - Lantus 5 units daily, sliding scale insulin, monitor for hypoglycemia #. normocytic anemia, slightly downtrending, continue to monitor #. Hypokalemia, resolved #. Hypomagnesemia, resolved #. Bilateral lower extremity edema, stable #. Thrombocytopenia, stable, resolved # Respiratory acidosis, resolved # Metabolic alkalosis, resolved Hypotension, resolved - Continue to hold antihypertensives Chronic: #. Hypertension #. Hyperlipidemia #. Obstructive sleep apnea #. BPH #. Restless leg syndrome #. Neuropathy DVT ppx: Lovenox Code status: Full code Anticipated discharge place: Pending clinical course Anticipated discharge time: Pending clinical course Objective - Vital Signs Vital signs: Vital Signs Temp 99.2 F 05/02/25 08:00 Pulse 102 H 05/02/25 11:00 Resp 24 05/02/25 11:00 BP 117/65 05/02/25 11:00 Pulse Ox 94 L 05/02/25 11:00 FiO2 60 05/02/25 11:16 Intake & Output 05/01/25 05/02/25 05/02/25 18:59 06:59 18:59 Intake Total 730 40 320 Output Total 0 560 210 Balance -1330 -520 110 Weight 100.4 kg 97.5 kg Intake: IV 40 40 0.9@10 20 40 Sodium Chloride 0.9% 1, 20 000 ml @ 75 mls/hr IV . [id number] [facility] Rx#:[id number] Oral 90 Tube Feeding 600 40 160 Other 90 30 Output: Urine 2059 460 210 Stool 100 Other: Voiding Method Indwelling Catheter Indwelling Catheter Indwelling Catheter - Labs CBC & Chem 7: 05/02/25 02:30 05/02/25 02:30 Labs: Abnormal Lab Results - Last 24 Hours (Table) 05/01/25 05/01/25 05/02/25 Range/Units 17:42 23:29 02:30 WBC (4.50-10.00) 10*3/uL RBC (4.40-5.60) 10*6/uL Hgb (13.0-17.0) g/dL Hct (39.6-50.0) % MCHC (32.0-37.0) g/dL Immature Gran # (0.00-0.04) 10*3/uL Neutrophils # (Manual) (1.3-7.7) k/uL Lymphocytes # (Manual) (1.0-4.8) k/uL Monocytes # (Manual) (0-1.0) k/uL Metamyelocytes # (Man) (0) k/uL Myelocytes # (Manual) (0) k/uL Sodium 134 L (137-145) mmol/L Potassium 3.1 L (3.5-5.1) mmol/L Carbon Dioxide 34 H (22-30) mmol/L Creatinine 0.24 L (0.66-1.25) mg/dL Glucose 170 H (74-99) mg/dL POC Glucose (mg/dL) 245 H 183 H (70-110) mg/dL Calcium 7.5 L (8.4-10.2) mg/dL 05/02/25 05/02/25 Range/Units 02:30 07:02 WBC 17.51 H (4.50-10.00) 10*3/uL RBC 2.59 L (4.40-5.60) 10*6/uL Hgb 7.7 L (13.0-17.0) g/dL Hct 24.8 L (39.6-50.0) % MCHC 31.0 L (32.0-37.0) g/dL Immature Gran # 1.44 H (0.00-0.04) 10*3/uL Neutrophils # (Manual) 15.06 H (1.3-7.7) k/uL Lymphocytes # (Manual) 0.53 L (1.0-4.8) k/uL Monocytes # (Manual) 1.23 H (0-1.0) k/uL Metamyelocytes # (Man) 0.70 H (0) k/uL Myelocytes # (Manual) 0.35 H (0) k/uL Sodium (137-145) mmol/L Potassium (3.5-5.1) mmol/L Carbon Dioxide (22-30) mmol/L Creatinine (0.66-1.25) mg/dL Glucose (74-99) mg/dL POC Glucose (mg/dL) 198 H (70-110) mg/dL Calcium (8.4-10.2) mg/dL Microbiology - Last 24 Hours (Table) 05/01/25 12:15 Gram Stain - Preliminary Sputum 04/30/25 20:20 Gram Stain - Preliminary Sputum
[2025-05-02 13:23] LABS: Magnesium 2.0 mg/dL (1.6-2.3); Potassium 4.4 mmol/L (3.5-5.1)
--- NOTE | 2025-05-02 13:32 | XR ---
EXAMINATION TYPE: XR cervical spine limited DATE OF EXAM: 05/02/2025 12:17 PM COMPARISON: 04/10/2025 CLINICAL INDICATION: Male, 65 years old with history of f/u cervical fusion C3-T3; PHH, pain TECHNIQUE: 2 views FINDINGS: Postoperative crosstable lateral and AP views showing posterior soft tissue air related to recent arin fozia. Posterior cervicothoracic fusion extends up to the C2 level. There is ACDF from C4 down to the C7 level. Tracheostomy cannula. Posterior fusion extends down into the upper thoracic spine. IMPRESSION: Posterior soft tissue air relating to recent operation. Please correlate to ensure recent operation t hat would explain this air. There is posterior cervical fusion C3 down to T3 and ACDF C4-C7. Alignmen t appears preserved. Fusion has a similar appearance from 04/10/2025. [facility], , 05/02/2025 1:29 PM
--- NOTE | 2025-05-02 13:35 | P.PN ---
Progress Note - Text Progress Note Date: 05/02/25 Patient seen and examined. No acute events overnight. No issues with tracheostomy VSS General-Sedated Neck-Tracheostomy site C/D/I Abdomen-soft, NTND, gastrostomy tube in place. 65 year old male s/p Tracheostomy and EGD with PEG Tube Insertion -Tube Feeds as Tolerated -ICU care Ramy Wilkerson DO [facility] [phone]
--- NOTE | 2025-05-02 17:45 | P.PN ---
Subjective Progress Note Date: 05/02/25 This is a 64-year-old male patient was undergone a C 7 T1 discectomy, done posteriorly with wide laminectomy and foraminotomy and partial facetectomy. The patient was experiencing cervical myelopathy with severe bilateral lower extremity weakness and T8 paresthesia. The patient has previous history of cervical spine fusion C2-C7. The patient was found to have a large herniated disc C7-T1 with severe spinal cord stenosis and based on that the patient was taken to the operating room and underwent a C7-T1 discectomy on 03/21/2025. The patient has become progressively more hypoxic. The patient developed lower lobe pneumonia left more than right. 04/09/2025 the patient is being seen for a follow-up in the intensive care unit. This morning, the patient is awake and alert. He has gotten progressively more debilitated over the past 10 days. He is managed in the intensive care unit for his acute hypoxic respiratory failure and left lower lobe pneumonia. He has required 2 bronchoscopies and the bronchoscopy is done on 03/26/2025 showed Serratia marcescens and the patient's nasal screen was positive for MSSA. The most recent chest x-ray from this morning shows a persistent consolidation in the left lung base and some atelectatic change in lung base bilaterally. No significant interval change compared to earlier chest x-rays. The patient remains on Airvo and earlier this morning the patient was on 6 L with an FiO2 of 65%. IV fluids are currently at KVO. The patient remains on IV cefazolin. Samuels catheter is in place. He has developed increased edema in his right upper extremity. Hemodynamically stable. The white cell count is at 10.2 with a hemoglobin 12.1 and a platelet count of 85. BUN is 19 with a creatinine of 0.37. Remains on IV Solu-Medrol. Spine surgery is on the case. He continues to have difficulties with lower extremity paralysis. He does have some numbness which is improved around his abdomen towards the groin. He does not have any sensation in his lower extremities except for some increased sensation in his right greater toe and no motor function in his lower extremities bilaterally. He is wearing compression stockings and boots. He does have some weakness also in his upper extremities. The patient is postop day #17. He is awake and alert and communicating. He is off the BiPAP. He remains on NovoLog 10 units 3 times daily with meals. Rest of the medications are essentially unchanged. 05/07/2025, patient is being seen for a follow-up. Oxygenation is stable for now. The patient was taken off the Airvo yesterday and the patient was placed on 10 L of oxygen by nasal cannula. Earlier this morning, the patient showed adequate oxygenation and the patient was further weaned down to 8 L/min nasal cannula. Chest x-ray shows a stable left lower lobe consolidation. The patient remains on the same antibiotics and the patient remains IV cefazolin. Cough remains weak. IV fluids are currently at KVO. No fever or chills. He does juan ve some sensation in lower extremities bilaterally although this is minimal. Motor function is still absent. The white cell count 8.7 with a hemoglobin 11.7 and a platelet count of 90. BUN 17 with a creatinine 0.49 and sodium is 136. No other significant events overnight. Will considering discharging this patient to an LTAC facility. The patient is postop day #18. On 04/11/2025, the patient is being seen for a follow-up. The patient shows ongoing improvement in the oxygenation and the patient is currently on 40 of oxygen by nasal cannula. Overnight, the patient utilizing a BiPAP at a pressure of 14 over 8 cm of water regarding his obstructive sleep apnea. He is doing well. He has some sensation above the thighs. No motor function lower extremities bilaterally. Upper extremities remain weak. Cough remains weak. He is on Lantus insulin 50 units daily and NovoLog 10 units with meals and sliding scale coverage. He remains on prednisone 40 mg p.o. daily. He remains on Lovenox for DVT prophylaxis. Samuels catheter to be discontinued today. He is awake and alert and communicating. The white cell count is 8.6 with a hemoglobin 11.4 and a platelet count of 85. BUN 16 with a creatinine 0.4. Sodium level is 133 and the blood sugar is at 169. Patient is being considered for LTAC. Insurance authorization has not been obtained. He is postop day #19. 04/12/2025, the patient is found to be slightly hypotensive. Overnight, the patient was given a bolus of 500 cc. Blood pressure is currently soft with a systolic in the mid 80s. Urine output was also low. The patient will be given another bolus of 1 L and is asked to be placed on hold. He is currently on liters of oxygen by nasal cannula. No respiratory difficulties. Neurologically unchanged. The white cell count is at 8.6 with a hemoglobin 10.8 and a platelet count has dropped further down to 55. K is at 3.9. BUN 16 with a creatinine 0.3. No antibiotics at this point and the patient remains on prednisone 40 mg p.o. daily. The patient is postop day #20. Tolerating diet. No issues with swallowing. 04/13/2025, the patient is being seen for a follow-up. The patient is calm and comfortable. Blood pressure remains soft yet stable. The patient was taken off the lisinopril. Fluid balance is +30 cc over the past 24 and the patient remains on 3 L of oxygen by nasal cannula. Afebrile. Awake and alert and communicating. Repeat chest x-ray was done this morning and it shows no lung volumes left greater than right base with small bilateral pleural effusion. No significant changes otherwise compared to yesterday. Tolerating diet. Motor function is unchanged lower extremity and the patient has no motor function in his legs bilaterally. Sensation is slightly present above the knees in the th ighs bilaterally. Motor function upper extremities 4 out of 5. The white Of 9.8 with a Heme of 10.4 and the Platelet Count of 55. BUN Is 18 with a Creatinine of 0.28 and a Sodium of 132. Glucose at 149. Patient Remains on Lovenox 40 Mg Subcu for DVT Prophylaxis. Remains on Lantus 50 Units Daily and NovoLog Sliding Scale Coverage. Rest of the Medications Are Essentially Unchanged. Remains on Prednisone 40 Mg P.O. Daily. No Issues with Pain. Continues to Wear a Hard Neck Collar. The patient is postop day #21. On 04/14/2025, the patient is being seen for a follow-up. Condition is stable and he remains on 3 L of oxygen by nasal cannula. Hemodynamically stable. Blood pressure is stable. The patient on Lantus insulin 15 yesterday. The patient on prednisone 40 mg p.o. daily. Blood work from today still pending. No new complaints otherwise for now. Tolerating diet. Having bowel movement. Using incentive spirometer. Was transitioned on the chair. Neurologically unchanged and the patient has no motor function lower extremities bilaterally. He is postop day #22. On 04/15/2025, the patient is being seen for a follow-up. Sitting up in a chair and the patient is calm and comfortable. No motor function lower extremities bilaterally in the patient's neurologic status essentially unchanged. The patient remains on oxygen and the patient is currently on 4 L of O2 nasal ca nnula with a pulse ox of 91%. Using incentive spirometer. No respiratory distress. Tolerating diet. The white cell count is 4.9 with a hemoglobin 10.3 and a platelet count of 62. BUN 17 with a creatinine of 0.4. Potassium level is at 3.0 that needs to be replaced. Platelet count is improved compared to yesterday. No other new complaints otherwise for now. April 16, 2025 in follow-up on the selective care unit. He is currently sitting up in bed. Awake and alert in no acute distress. He is maintaining O2 saturation in the low 90s on 4 L/min per nasal cannula. He has been afebrile. Hemodynamically stable. White count 3.8. Hemoglobin 9.8. Platelets 59,000. Sodium 135. Potassium 3.2. Bicarb 30. BUN 15. Creatinine 0.33. Glucose 111. He remains on DuoNeb inhalations. Lovenox for DVT prophylaxis. Remains on a prednisone taper. Awaiting a bed at [facility]. Insurance authorization remains an issue. The patient is seen today April 17, 2025 in follow-up on the selective care unit. He is sitting up in bed. Awake and alert. He is having increasing shortness of breath today with increasing dyspnea. Chest x-ray is again starting to show opacity in the left lung. He continues with a very weak cough. Unable to clear his own secretions. He has been working with respiratory therapy including with the incentive spirometer and flutter valve. He is now requiring 15 L high flow nasal cannula. He has been intolerant to BiPAP. Sodium 135. Potassium 3.8. Bicarb 32. BUN 16. Creatinine 0.40. Glucose 92. He remains on DuoNeb inhalations. Lovenox for DVT prophylaxis. Continued on Mucinex. The patient is seen today April 23, 2025 in follow-up in the intensive care unit. He had again developed respiratory distress while up on the regular medical floor and a near complete whiteout of the left lung. He was placed on BiPAP and showed improvement. Today he is sitting up in a chair. Awake and alert in no acute distress. There is still some left lower lung collapse on the chest x- ray. He remains on Airvo high flow oxygen at 55 L and 75% FiO2 during the day. He is utilizing BiPAP at night 12/8 and 60% FiO2. He remains on Zosyn. He has normal saline at KVO. He attempts to work with the incentive spirometer and the flutter valve but his voice remains weak. His cough remains very weak. He does have paraplegia. He does not even feel subcu injections into the lower abdomen. He remains on DuoNeb inhalations. Receiving chest physiotherapy. Lovenox for DVT prophylaxis. Protonix for GI prophylaxis. The patient is seen today April 24, 2025 in follow-up in the intensive care unit. He is currently sitting up in bed. Awake and alert in no acute distress. He continues to have minimal tolerance for any activity without having shortness of breath and desaturations. His chest x-ray is again showing worsening left lower lobe collapse. He refused to wear the BiPAP last evening. He remains quite anxious about it. He remains on Airvo high flow nasal cannula at 60 L and 80% FiO2. Initial bronch wash cultures from March 26, 2025 was positive for Serratia marcescens. He is currently on Zosyn. White count 8.3. Hemoglobin 10.7. Platelets 339. Sodium 136. Potassium 3.6. Bicarb 29. BUN 13. Creatinine 0 .32. Glucose 127. He remains on DuoNeb inhalations, Mucinex, prednisone. Lovenox for DVT prophylaxis. Protonix for GI prophylaxis. The patient is seen today April 26 2025 in follow-up in the intensive care unit. He is awake and alert. Still requiring BiPAP support 16/8 and 50% FiO2 to maintain O2 saturations in the 90s. He has normal saline at 75 mL/h. White count 8.7. Hemoglobin 10.3. Platelets 329. Sodium 135. Potassium 3.6. Bicarb 32. BUN 13. Creatinine 0.31. Glucose 121. Chest x-ray continues to show a left lower lobe infiltrate. He remains on DuoNeb inhalations. Currently sedated on Precedex 0.3 mcg/kg/h. Plan is for tracheostomy and PEG tube placement today. The patient is seen today April 27, 2025 in follow-up in the intensive care unit. He is currently resting in bed. Sedated on propofol at 25 mcg/kg/min. Normal saline at 75 mL/h. He is on the ventilator currently at a 6 control mode at a rate of 20, tidal volume 400, FiO2 50% and a PEEP of 8. Blood gases revealed a PO2 of 83, PCO2 of 46 and a pH of 7.45. White count 11.5. Hemoglobin 10.1. Platelets 324. Sodium 138. Potassium 2.9. Bicarb 31. BUN 11. Creatinine 0.29. Glucose 103. He remains on DuoNeb inhalations, Pulmicort and Perforomist inhalations, prednisone. Being nourished with vital HP at 10 mL/h with a goal of 40. Tracheostomy and PEG tubes placed yesterday. The patient is seen today April 28, 2025 in follow-up in the intensive care unit. He remains on mechanical ventilator via tracheostomy tube and assist-control mode at a rate of 20, tidal volume 400, FiO2 40% and a PEEP of 8. Morning blood gases revealed a PO2 of 73, [id number] and a pH of 7.46. He is sedated lightly on propofol at 10 mcg/kg/min. Normal saline at 75 mL/h. Being nourished via PEG tube with vital HP at 30 mL/h with a goal of 40 mL/h. Chest x-ray reveals retrocardiac opacity and small bilateral pleural effusions. White count 12.2. Hemoglobin 10.0. Platelets 289. Sodium 135. Potassium 3.0. Bicarb 28. BUN 7. Creatinine 0.21. Glucose 101. He remains on DuoNeb inhalations, Pulmicort and Perforomist inhalations, prednisone taper. Lovenox for DVT prophylaxis. Protonix for GI prophylaxis. The patient is seen today April 29, 2025 in follow-up in the intensive care unit. He remains on mechanical ventilator currently in assist-control mode at a rate of 20, tidal volume 400, FiO2 50% and a PEEP of 8. Morning blood gases reveal a PO2 of 84, PCO2 of 44 and a pH of 7.50. He is sedated on propofol 25 mcg/kg/min. Receiving normal saline at 75 mL/h. He is being nourished with vital HP at 40 mL/h. White count 12.6. Hemoglobin 9.0. Platelets 335. Sodium 137. Potassium 3.2. Bicarb 32. BUN 7. Creatinine 0.18. Glucose 141. Chest x-ray reveals resolution of the previous small right pleural effusion. Stable left pleural effusion. No cardiomegaly or pulmonary vascular congestion. No airspace consolidation. 04/30/2025, the patient is being seen for a follow-up. The patient remains on a mechanical ventilator. He is awake and arousable while being on propofol running at 50 mcg/kg/min. He is on assist-control mode rate of 20, tidal volume of 400, FiO2 60% with a PEEP of 8. His blood gases showing a pH of 7.46 with [id number] and PO2 of 67. The patient has a lumbar 7.5 [address] trache[address] tube in place and the patient also has a PEG tube with vital high-protein running at 40 cc an hour. No active diarrhea and his diarrhea subsided and the fecal management system will be removed. Minimal respiratory secretions. Chest x-ray from today showing ongoing infiltrates/consolidation lung bases and small amount of fluid and atelectasis in the lung bases. Noted the patient had an extensive left lower lobe pneumonia that was attributed to Serratia marcescens and the patient was treated with broad-spectrum antibiotics and the patient was taken off antibiotics and currently is on no antibiotics. He remains on 20 mg of prednisone. Neurologically unchanged the patient has no motor function lower extremities bilaterally. He is still on Lantus insulin 5 units daily and a sliding scale coverage. He is arousable and communicating. He remains on Lovenox 40 mg subcu on a daily basis. On 05/01/2025, the patient is being seen for a follow-up. The patient remains on a mechanical ventilator. The patient is off propofol for now. Calm and comfortable. Patient has a tracheostomy tube and the patient is having copious amount of respiratory secretions, purulent around the tracheostomy stoma. Sputum sample will be sent again. Meanwhile, the patient is having fever with a Tmax of 100.4. The patient will also start on broad-spectrum antibiotics. He is currently on assist-control mode at rate of 20, tidal volume of 400, FiO2 of 60% with a PEEP of 8. Blood gas showed a pH of 7.49 with a [id number] and PO2 of 71. The patient's chest x-ray from today is showing volume loss and small to moderate-sized bilateral pleural effusion/atelectasis in the lung bases and similar findings were also noted on the CAT scan of the chest that was done on 05/01/2025. The patient was started on broad-spectrum antibiotics. The patient will be given a combination of cefepime and vancomycin. The patient had a net fluid balance of -2.5 L over the past 24 hours. Another dose of Lasix will be given today. Rest of the blood work shows a white cell count of 20 and a white cell count on the right with a hemoglobin 9.1 and a platelet count of 293. Sodium is at 137, potassium is 3.9, BUN 11 with a creatinine of 0.23. On 05/02/2025, the patient is being seen for a follow-up. Awake and arousable and communicating. Able to move his upper extremities. No motor function lower extremities bilaterally. Neurologically unchanged. No fever for today. His white cell count is improved compared to yesterday and the white cell count is currently down to 1 17.5 and the patient is afebrile. Sputum samples were collected yesterday and there is presumptive Staph aureus and Klebsiella on those cultures. This was confirmed on 2 separate samples from 04/30/2025 and 05/01/2025. The patient is already on cefepime and vancomycin pending the cultures to be finalized and pending further sensitivities. Meanwhile, a repeat chest x-ray was done and the chest x-ray from today showing bilateral lower lobe consolidation and effusions. There is a small left-sided pleural effusion and right basilar has some increased in interval. Overall respiratory secretions are improved compared to yesterday and the patient is requiring less suctioning. He has a negative fluid balance of 1.8 L while receiving IV Lasix. He has a fecal management system in the stool output has also improved. The white cell count at 17 with a hemoglobin 7.7 and platelet count of 247. BUN is 70 with a creatinine of 0.2. Sodium is at 134 and potassium level is at 4.4. No other significant events otherwise. Objective - Vital Signs Vital signs: Vital Signs Temp 99.2 F 05/02/25 08:00 Pulse 102 H 05/02/25 11:00 Resp 24 05/02/25 11:00 BP 117/65 05/02/25 11:00 Pulse Ox 94 L 05/02/25 11:00 FiO2 60 05/02/25 09:39 Intake & Output 05/01/25 05/02/25 05/02/25 18:59 06:59 18:59 Intake Total 730 40 320 Output Total 2059 560 210 Balance -1330 -520 110 Weight 100.4 kg 97.5 kg Intake: IV 40 40 0.9@10 20 40 Sodium Chloride 0.9% 1, 20 000 ml @ 75 mls/hr IV . [id number] [facility] Rx#:[id number] Oral 90 Tube Feeding 600 40 160 Other 90 30 Output: Urine 2059 460 210 Stool 100 Other: Voiding Method Indwelling Catheter Indwelling Catheter Indwelling Catheter - Exam General: nontoxic, no distress, appears at stated age, patient is currently on a mechanical ventilator and the patient has a 7.[address]ostomy tube in place. Derm: warm, dry, intact, dressing noted at the back of neck with no signs of drainage or bleeding. Head: atraumatic, normocephalic, symmetric Eyes: EOMI, anicteric sclera Mouth: no lip lesion, mucus membranes moist Cardiovascular: S1 S2 reg, no murmur, rubs, or gallops Lungs: Diminished breath in the lung bases bilaterally. No significant wheezing. Abdominal: soft, a bowel sounds are present and the patient has a PEG tube in place. Extremities: no gross muscle atrophy, no edema, no contractures, patient is unable to move bilateral lower extremity, increased edema in the right upper extremity. Neuro: Alert, Oriented, CNII-XII grossly intact, gait cannot be assessed as the patient has absent motor function lower extremities bilaterally patient has bilateral foot drop. Reflexes are diminished. No Babinski. No clonus. - Labs CBC & Chem 7: 05/02/25 02:30 05/02/25 12:48 Labs: Abnormal Lab Results - Last 24 Hours (Table) 05/01/25 05/01/25 05/01/25 Range/Units 11:39 17:42 23:29 WBC (4.50-10.00) 10*3/uL RBC (4.40-5.60) 10*6/uL Hgb (13.0-17.0) g/dL Hct (39.6-50.0) % MCHC (32.0-37.0) g/dL Immature Gran # (0.00-0.04) 10*3/uL Neutrophils # (Manual) (1.3-7.7) k/uL Lymphocytes # (Manual) (1.0-4.8) k/uL Monocytes # (Manual) (0-1.0) k/uL Metamyelocytes # (Man) (0) k/uL Myelocytes # (Manual) (0) k/uL Sodium (137-145) mmol/L Potassium (3.5-5.1) mmol/L Carbon Dioxide (22-30) mmol/L Creatinine (0.66-1.25) mg/dL Glucose (74-99) mg/dL POC Glucose (mg/dL) 221 H 245 H 183 H (70-110) mg/dL Calcium (8.4-10.2) mg/dL 05/02/25 05/02/25 05/02/25 Range/Units 02:30 02:30 07:02 WBC 17.51 H (4.50-10.00) 10*3/uL RBC 2.59 L (4.40-5.60) 10*6/uL Hgb 7.7 L (13.0-17.0) g/dL Hct 24.8 L (39.6-50.0) % MCHC 31.0 L (32.0-37.0) g/dL Immature Gran # 1.44 H (0.00-0.04) 10*3/uL Neutrophils # (Manual) 15.06 H (1.3-7.7) k/uL Lymphocytes # (Manual) 0.53 L (1.0-4.8) k/uL Monocytes # (Manual) 1.23 H (0-1.0) k/uL Metamyelocytes # (Man) 0.70 H (0) k/uL Myelocytes # (Manual) 0.35 H (0) k/uL Sodium 134 L (137-145) mmol/L Potassium 3.1 L (3.5-5.1) mmol/L Carbon Dioxide 34 H (22-30) mmol/L Creatinine 0.24 L (0.66-1.25) mg/dL Glucose 170 H (74-99) mg/dL POC Glucose (mg/dL) 198 H (70-110) mg/dL Calcium 7.5 L (8.4-10.2) mg/dL Microbiology - Last 24 Hours (Table) 05/01/25 12:15 Gram Stain - Preliminary Sputum 04/30/25 20:20 Gram Stain - Preliminary Sputum Assessment and Plan Plan: Acute hypoxic respiratory failure, multifactorial. The patient continues to have a very weak cough. The patient had a follow-up CAT scan of the chest done on 05/01/2025 and the patient was found to have consolidation/atelectasis along with small bibasilar pleural effusions. Sputum sample is positive for presumptive Staph aureus and Klebsiella pneumonia and the patient is currently on a combination of cefepime and vancomycin. Fever, temperature is being monitored Leukocytosis, improved Purulent secretions around the tracheostomy stoma, with positive sputum cultures, and respiratory secretion have improved compared to yesterday. Chest x-ray continues to show lower lobe consolidation/atelectasis. Chronic respiratory insufficiency due to prolonged hospitalization, recurrent pneumonia and a very weak cough mechanism following a spine surgery T8 spinal cord injury. The patient has severe spinal canal stenosis at the level of C7/T1 with motor weakness in the lower extremities in addition to myelopathy. The patient is post C7/T1 discectomy with decompression and fusion and the patient also had extension of a previous C2/7 fusion to T3. Thrombocytopenia, recovered Abdominal distention/ileus, recovered, and the patient has a PEG tube and the patient is receiving enteral feeding for history of support Obstructive sleep apnea maintain CPAP therapy on outpatient basis Diabetes mellitus type 2, with steroid-induced hyperglycemia, currently on Lantus 5 units daily and sliding scale coverage Hypotension, rule out septic versus neurogenic hypotension post spine surgery, recovered Hyperlipidemia Bilateral lower extremity weakness, ongoing motor weakness in the lower extremities bilaterally with absent motor function at this point with bilateral foot drop. Patient's sensations in the lower limbs have improved, but now patient is completely paraplegic. T8 spinal cord injury with motor paralysis lower extremities bilaterally with absent sensation. He does have some feelings in his lower abdomen towards the groin. History of prior cervical fusion C3-C7 History of severe L5-S1 neuroforaminal stenosis Plan Continue ventilator support, no vent changes for today noncontrast CAT scan of the chest was noted and is consistent with bilateral pleural effusion and atelectatic changes lung base bilaterally. Pneumonia is highly likely as the patient has Pseudomonas aeruginosa and Staph aureus in the sputum samples Sputum Gram stain and culture were noted and awaiting further cultures and sensitivities Monitor fever pattern Monitor white cell count Continue IV cefepime and vancomycin Aggressive pulmonary toileting Continue DuoNeb nebulizer treatments [id number] Pain control and muscle relaxants IV fluids to KVO Continue vital HP for enteral feeding and nutritional support. Dilaudid for pain control in combination with [place] as needed Lantus insulin 5 units on a daily basis along with sliding scale coverage Prednisone 20 mg p.o. daily. Keep Samuels catheter in place Aggressive pulmonary toileting we will continue to follow make further recommendations based on his progress. This evaluation was done 35 minutes. Time with Patient: Greater than 30
[2025-05-02 18:09] LABS: Glucose,Whole Blood 233 mg/dL (70-110)
[2025-05-03 03:52] LABS: HCT 26.9 % (39.6-50.0); HGB 8.4 g/dL (13.0-17.0); MCH 29.6 pg (27.0-32.0); MCHC 31.2 g/dL (32.0-37.0); MCV 94.7 fL (80.0-97.0); Platelet Count 227 10*3/uL (140-440); RBC 2.84 10*6/uL (4.40-5.60); RDW 14.9 % (11.5-14.5); WBC 18.95 10*3/uL (4.50-10.00)
[2025-05-03 04:03] LABS: ALT 77 U/L (4-49); AST 67 U/L (17-59); African American GFR (CKD) >90 (>60 ml/min/1.73 sqM); Albumin 2.4 g/dL (3.5-5.0); Alkaline Phosphatase 83 U/L (38-126); Blood Urea Nitrogen 20 mg/dL (9-20); Calcium 8.6 mg/dL (8.4-10.2); Chloride 94 mmol/L (98-107); Glucose 156 mg/dL (74-99); Magnesium 1.9 mg/dL (1.6-2.3); Non-African American GFR(CKD) >90 (>60 ml/min/1.73 sqM); Potassium 3.6 mmol/L (3.5-5.1); Sodium 135 mmol/L (137-145); Total Protein 4.7 g/dL (6.3-8.2)
[2025-05-03 04:12] LABS: Anion Gap 6 mmol/L; Carbon Dioxide 35 mmol/L (22-30)
[2025-05-03] MEDS: MAGNESIUM SULFATE-D5W PMX 1 GM in DEXTROSE/WATER 1 100ML.BAG IVPB ONE ×2 (05:02→15:05)
[2025-05-03] MEDS: POTASSIUM BICARBONATE/CIT AC 20 MEQ TABLET.EFF NG-TUBE SCH (05:03)
[2025-05-03 06:16] LABS: Lymphocytes # (M) 1.33 k/uL (1.0-4.8); Monocytes # (M) 0.95 k/uL (0-1.0); Neutrophils # (M) 16.67 k/uL (1.3-7.7); Neutrophils % (M) 87 %; Total Cells Counted 100
[2025-05-03 06:20] LABS: Glucose,Whole Blood 214 mg/dL (70-110)
--- NOTE | 2025-05-03 07:46 | XR ---
EXAMINATION TYPE: XR chest 1V portable DATE OF EXAM: 05/03/2025 5:56 AM COMPARISON: 05/02/2025 CLINICAL INDICATION: Male, 65 years old with history of Mechanical ventilation, , FINDINGS: ACDF and posterior cervical fusion hardware. Tracheostomy cannula. Right PICC tip at the cavoatrial j unction. Heart upper limits of normal in size. Hazy bibasilar densities remain but show some improvem ent from prior. Patchy medial right basilar opacity remains. IMPRESSION: 1. There seems to be some improvement, likely residual trace bilateral pleural effusions. 2. Additional focal patchy medial right basilar opacity also remains. [facility], Workstation: [facility], 05/03/2025 7:43 AM
--- NOTE | 2025-05-03 10:46 | P.PN ---
Progress Note - Text Progress Note Date: 05/03/25 Orthopedic spine: History of present illness: Patient is a very pleasant 65-year-old male who is seen examined at bedside in the ICU for follow-up evaluation of the cervical spine. He is status post posterior cervical decompression discectomy at C7-T1 with extension of fusion from C7 down to T3. He is currently undergoing treatment for his tracheostomy at the bedside. Patient is currently agitated. Nursing states they do not currently have Ativan on the floor but this is being brought to the floor for the patient. He has not had any change from an orthopedic spine standpoint. He does have some sensation over his anterior thighs which he states again is greater on the right than the left. He has no sensation in his calfs. Compression stockings and pneumatic boots are intact. He has had a tracheostomy placed. Due to this, the anterior portion of his hard cervical collar has been removed. He continues with dressing changes as needed over the posterior cervical spine. He is not experiencing any cervical pain. He has adequate range of motion of his bilateral upper extremities except for his shoulders bilaterally. 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 He is awake and alert. He continues have significant difficulty with this bilateral lower extremities. He has some improved numbness around his abdomen towards the groin and some increased sensation over his anterior thighs. He admits to continued sensation in his right great toe. He has no motor function in his lower extremities. His lower extremity symptoms have not improved. Samuels catheter continues to be present after failing a voiding trial. He will be discharged with a catheter intact. Fecal management system has been placed. He is being managed in the ICU by pulmonary critical care. Patient has received [facility] through [facility] for [facility] for discharge to [facility] cord rehabilitation facility. They are [facility] [place], [place]. Authorization has been obtained. However, the patient is not currently stable for discharge. He continues to be seen exam by multiple medical providers including pulmonology and medicine. Physical Exam Posterior Cervical Fusion: Status post surgical day number #43 Patient is drowsy but awake Pneumatic boots intact bilateral lower extremities Compression stockings intact bilaterally Samuels catheter intact Fecal management system intact Dressing intact at the inferior aspect of the incision site of the posterior cervicothoracic surgical site Posterior portion hard cervical collar is in tact; anterior portion is removed due to tracheostomy Tracheostomy intact; currently undergoing tracheostomy care Assessment: Spinal cord injury with paralysis at T8 Postoperative day #43: Status post posterior cervical decompression discectomy at C7-T1 with extension of fusion from C7-T3 Bilateral lower extremity paralysis Bilateral lower extremity loss of sensation Acute hypoxic respiratory failure Left-sided atelectasis Obstructive sleep apnea syndrome on CPAP normally Type 2 diabetes Hypotension could be related to sepsis could also be neurogenic post spinal surgery Dyslipidemia Tracheostomy placement Fecal management system placement Plan: We will continue with our plan as set forth previously. 1. Patient continues to remain in the ICU due to pulmonary status. He c ontinues to be closely managed from pulmonary standpoint. He is currently undergoing tracheostomy care at the bedside. Patient has received [facility] through the [facility] for approval for discharge to spinal cord rehabilitation facility. They are currently planning for [facility] [place], [place]. Authorization has been obtained. 2. Patient must keep his hard cervical collar intact at all times. However, the anterior portion is currently unable to be intact due to his tracheostomy. Patient may continue with dressing changes as needed at the posterior cervical spine. 3. Patient continues to have flaccid paralysis in his bilateral lower extremities. He has had some increase in sensation around his abdomen towards his groin and admits to some increased sensation over his anterior thighs greater on the right than the left. He continues to have some sensation in his right great toe and does feel some increase sensation over the toes of the right foot and the top of the right foot. He continues to have paralysis.. They should continue with position change regularly to help prevent decubitus transfer to a bedside chair when possible. 4. When medically stable clear, patient will be planning to be discharged to a spinal cord facility for rehabilitation. They are currently planning for [facility] to [facility] [place], [place]. Authorization has been obtained. However, the patient is not currently stable for discharge. Due to the fact that this [facility] a [facility] and is considered inpatient, the patient will be unable to follow-up for further evaluation in the outpatient setting until they are discharged from this [facility] facility. 5. We will plan for cervical x-rays prior to discharge from the hospital. 6. Patient may follow-up with Jesu Villarreal PA-C or Dr. Gideon Noyola at [facility] in 2-3 weeks following discharge from spinal cord rehabilitation facility. The patient is seen in the in intensive care unit. He is responsive appropriately. They are working on his trach positioning. His neurologic status distally is unchanged
[2025-05-03] MEDS: VANCOMYCIN TROUGH DUE 1 EACH MISC MISCELLANE ONE (11:15)
[2025-05-03 11:38] LABS: Glucose,Whole Blood 235 mg/dL (70-110)
[2025-05-03 12:11] LABS: Magnesium 1.9 mg/dL (1.6-2.3); Potassium 4.3 mmol/L (3.5-5.1)
[2025-05-03 12:31] LABS: ABG HCO3 36 mmol/L (21-25); ABG PCO2 54 mmHg (35-45); ABG PH 7.44 (7.35-7.45); ABG PO2 131 mmHg (83-108); ABG TCO2 38 mmol/L (19-24); Allen Test Performed? Yes
--- NOTE | 2025-05-03 14:06 | P.PN ---
Subjective Progress Note Date: 05/03/25 Subjective: Patient seen and examined at bedside. Trached and mechanically ventilated, PEG tube in place. Had another bronchoscopy today due to frequent desaturations. Pertinent positives and negatives as discussed above, a complete review of systems was performed and all other systems are negative. Vitals Signs Reviewed. General: Nontoxic, no distress, appears at stated age Derm: Warm, dry Head: Atraumatic, normocephalic, symmetric, Eyes: EOMI, no lid lag, anicteric sclera Mouth: No lip lesion, mucus membranes moist Cardiovascular: S1S2 reg, no murmur Lungs: Reduced breath sounds on the left lower lobe, no accessory muscle use, trach, mechanically ventilated Abdominal: Soft, nontender to palpation, no guarding, no appreciable organomegaly Ext: No gross muscle atrophy, no edema, no contractures Neuro: Flaccid paralysis in bilateral lower extremity, reduced sensation below abdomen Psych: Alert, oriented, appropriate affect Data Reviewed Today: Pertinent Labs: WBC 18.95, hemoglobin 8.4, creatinine 0.22, sodium 135, blood sugars range between 156-235, magnesium 1.9 Imaging: Chest x-ray independently interpreted, bibasilar opacities improved. Assessment and Plan: #. Aspiration pneumonia #. Acute hypoxemic and hypercapnic respiratory failure secondary to severe atelectasis and mucous plugging status post bronchoscopy x 3 now status post trach #. Previous healthcare acquired Pneumonia secondary to Serratia and Milagros, resolved #. Leukocytosis, secondary to above #. Hyponatremia, resolved Remains in ICU, now status post trach and PEG Continue with steroid taper, now on prednisone 10 mg daily Continue DuoNebs 4 times daily and every 2 hours as needed Patient restarted on cefepime 2 g IV every 8 hours and IV vancomycin, monitor for renal toxicity, previously completed courses of meropenem, zosyn and Fluconazole Aggressive pulmonary toileting Monitor CBC, will need to continue to monitor for worsening respiratory status, and respiratory infection dc to [facility] when bed available Tube feeds via PEG tube, at goal rate #. Cervical myelopathy secondary to severe spinal canal stenosis involving C7-T1 #. Status post extensive cervical decompression with discectomy at C7-T1 and fusion with extension of fusion from C3-C7 with new extension down to T3 #. Severe right L5-S1 neuroforaminal stenosis #. Moderate bilateral L4-L5 neuroforaminal stenosis Orthopedic surgery following status post extensive cervical decompression with dissecting at C7-T1 and fusion with extension of fusion from C3-C7 with new extension down to T3 Continue Prednisone 10 mg PO daily, will taper Completed course of IV cefazolin for post surgical skin infection #. Type II [id number] diabetes mellitus #. Hyperglycemia, resolved - Lantus 5 units daily, sliding scale insulin, monitor for hypoglycemia - Since prednisone is being tapered, continue on 5 units of Lantus #. normocytic anemia, slightly downtrending, continue to monitor #. Hypokalemia, resolved #. Hypomagnesemia, resolved #. Bilateral lower extremity edema, stable #. Thrombocytopenia, stable, resolved # Respiratory acidosis, resolved # Metabolic alkalosis, resolved Hypotension, resolved - Continue to hold antihypertensives Chronic: #. Hypertension #. Hyperlipidemia #. Obstructive sleep apnea #. BPH #. Restless leg syndrome #. Neuropathy DVT ppx: Lovenox Code status: Full code Anticipated discharge place: Pending clinical course Anticipated discharge time: Pending clinical course Objective - Vital Signs Vital signs: Vital Signs Temp 98.3 F 05/03/25 12:00 Pulse 101 H 05/03/25 13:00 Resp 20 05/03/25 13:00 BP 116/76 05/03/25 13:00 Pulse Ox 95 05/03/25 13:00 FiO2 60 05/03/25 12:59 Intake & Output 05/02/25 05/03/25 05/03/25 18:59 06:59 18:59 Intake Total 1380 1318 420 Output Total 1320 435 395 Balance 60 883 25 Weight 96.7 kg 96.7 kg Intake: IV 720 878 70 0.9@10 120 110 70 Cefepime 2 gm In Sodium 100 100 Chloride 0.9% 100 ml @ 25 mls/hr IVPB Q8H JUAN LUIS Rx#: [id number] Vancomycin 2,000 mg In 500 668 Sodium Chloride 0.9% 500 ml 500 ml @ 167 mls/hr IVPB Q12H JUAN LUIS Rx#: [id number] Oral 90 Tube Feeding 480 440 290 Other 90 60 Output: Urine 720 435 395 Stool 600 Other: Voiding Method Indwelling Catheter Indwelling Catheter Indwelling Catheter ABP, PAP, CO, CI - Last Documented Arterial Blood Pressure 117/61 - Labs CBC & Chem 7: 05/03/25 03:25 05/03/25 11:28 Labs: Abnormal Lab Results - Last 24 Hours (Table) 05/02/25 05/03/25 05/03/25 Range/Units 18:08 03:25 03:25 WBC 18.95 H (4.50-10.00) 10*3/uL RBC 2.84 L (4.40-5.60) 10*6/uL Hgb 8.4 L (13.0-17.0) g/dL Hct 26.9 L (39.6-50.0) % MCHC 31.2 L (32.0-37.0) g/dL MPV 9.3 L (9.5-12.2) fL Immature Gran # 1.59 H (0.00-0.04) 10*3/uL Neutrophils # (Manual) 16.67 H (1.3-7.7) k/uL ABG pCO2 (35-45) mmHg ABG pO2 (83-108) mmHg ABG HCO3 (21-25) mmol/L ABG Total CO2 (19-24) mmol/L ABG O2 Saturation (94-97) % Hemoglobin (13.0-17.5) gm/dL Sodium 135 L (137-145) mmol/L Chloride 94 L (98-107) mmol/L Carbon Dioxide 35 H (22-30) mmol/L Creatinine 0.22 L (0.66-1.25) mg/dL Glucose 156 H (74-99) mg/dL POC Glucose (mg/dL) 233 H (70-110) mg/dL AST 67 H (17-59) U/L ALT 77 H (4-49) U/L Total Protein 4.7 L (6.3-8.2) g/dL Albumin 2.4 L (3.5-5.0) g/dL 05/03/25 05/03/25 05/03/25 Range/Units 06:18 11:37 12:21 WBC (4.50-10.00) 10*3/uL RBC (4.40-5.60) 10*6/uL Hgb (13.0-17.0) g/dL Hct (39.6-50.0) % MCHC (32.0-37.0) g/dL MPV (9.5-12.2) fL Immature Gran # (0.00-0.04) 10*3/uL Neutrophils # (Manual) (1.3-7.7) k/uL ABG pCO2 54 H (35-45) mmHg ABG pO2 131 H (83-108) mmHg ABG HCO3 36 H (21-25) mmol/L ABG Total CO2 38 H (19-24) mmol/L ABG O2 Saturation 99.6 H (94-97) % Hemoglobin 9.3 L (13.0-17.5) gm/dL Sodium (137-145) mmol/L Chloride (98-107) mmol/L Carbon Dioxide (22-30) mmol/L Creatinine (0.66-1.25) mg/dL Glucose (74-99) mg/dL POC Glucose (mg/dL) 214 H 235 H (70-110) mg/dL AST (17-59) U/L ALT (4-49) U/L Total Protein (6.3-8.2) g/dL Albumin (3.5-5.0) g/dL Microbiology - Last 24 Hours (Table) 05/01/25 12:15 Gram Stain - Final Sputum Sputum Culture - Final Staphylococcus aureus Klebsiella Pneum subsp ozaenae 04/30/25 20:20 Gram Stain - Final Sputum Sputum Culture - Final Staphylococcus aureus Klebsiella pneumoniae
--- NOTE | 2025-05-03 14:12 | P.PN ---
Subjective Progress Note Date: 05/03/25 SURGICAL PROGRESS NOTE HISTORY OF PRESENT ILLNESS: No acute events overnight. Patient tolerating tube feeds. No issues with tracheostomy. PHYSICAL EXAM: VITAL SIGNS: Reviewed. GENERAL: Well-developed in no acute distress. HEENT: Tracheostomy site clean dry and intact ABDOMEN: Soft. Nondistended. Nontender. PEG tube site clean dry and intact ASSESSMENT: 65 year old male s/p Tracheostomy and EGD with PEG Tube Insertion PLAN: - Continue tube feeds - Surgical service will sign off. Please call with any questions or concerns Physician Legal Service Specialist note has been reviewed by physician. Signing provider agrees with the documented findings, assessment, and plan of care. Attestation Patient seen and examined at bedside. Tolerating tube feeding at goal. Tracheostomy functioning. Please call surgical service should there be any changes in his clinical progress. Lei Wong, Objective - Vital Signs Vital signs: Vital Signs Temp 98.3 F 05/03/25 12:00 Pulse 104 H 05/03/25 14:00 Resp 20 05/03/25 14:00 BP 130/83 05/03/25 14:00 Pulse Ox 93 L 05/03/25 14:00 FiO2 60 05/03/25 12:59 Intake & Output 05/02/25 05/03/25 05/03/25 18:59 06:59 18:59 Intake Total 1380 1318 480 Output Total 1320 435 470 Balance 60 883 10 Weight 96.7 kg 96.7 kg Intake: IV 720 878 80 0.9@10 120 110 80 Cefepime 2 gm In Sodium 100 100 Chloride 0.9% 100 ml @ 25 mls/hr IVPB Q8H JUAN LUIS Rx#: [id number] Vancomycin 2,000 mg In 500 668 Sodium Chloride 0.9% 500 ml 500 ml @ 167 mls/hr IVPB Q12H JUAN LUIS Rx#: [id number] Oral 90 Tube Feeding 480 440 340 Other 90 60 Output: Urine 720 435 470 Stool 600 Other: Voiding Method Indwelling Catheter Indwelling Catheter Indwelling Catheter ABP, PAP, CO, CI - Last Documented Arterial Blood Pressure 100/56 - Labs CBC & Chem 7: 05/04/25 05:10 05/04/25 05:10 Labs: Abnormal Lab Results - Last 24 Hours (Table) 05/02/25 05/03/25 05/03/25 Range/Units 18:08 03:25 03:25 WBC 18.95 H (4.50-10.00) 10*3/uL RBC 2.84 L (4.40-5.60) 10*6/uL Hgb 8.4 L (13.0-17.0) g/dL Hct 26.9 L (39.6-50.0) % MCHC 31.2 L (32.0-37.0) g/dL MPV 9.3 L (9.5-12.2) fL Immature Gran # 1.59 H (0.00-0.04) 10*3/uL Neutrophils # (Manual) 16.67 H (1.3-7.7) k/uL ABG pCO2 (35-45) mmHg ABG pO2 (83-108) mmHg ABG HCO3 (21-25) mmol/L ABG Total CO2 (19-24) mmol/L ABG O2 Saturation (94-97) % Hemoglobin (13.0-17.5) gm/dL Sodium 135 L (137-145) mmol/L Chloride 94 L (98-107) mmol/L Carbon Dioxide 35 H (22-30) mmol/L Creatinine 0.22 L (0.66-1.25) mg/dL Glucose 156 H (74-99) mg/dL POC Glucose (mg/dL) 233 H (70-110) mg/dL AST 67 H (17-59) U/L ALT 77 H (4-49) U/L Total Protein 4.7 L (6.3-8.2) g/dL Albumin 2.4 L (3.5-5.0) g/dL 05/03/25 05/03/25 05/03/25 Range/Units 06:18 11:37 12:21 WBC (4.50-10.00) 10*3/uL RBC (4.40-5.60) 10*6/uL Hgb (13.0-17.0) g/dL Hct (39.6-50.0) % MCHC (32.0-37.0) g/dL MPV (9.5-12.2) fL Immature Gran # (0.00-0.04) 10*3/uL Neutrophils # (Manual) (1.3-7.7) k/uL ABG pCO2 54 H (35-45) mmHg ABG pO2 131 H (83-108) mmHg ABG HCO3 36 H (21-25) mmol/L ABG Total CO2 38 H (19-24) mmol/L ABG O2 Saturation 99.6 H (94-97) % Hemoglobin 9.3 L (13.0-17.5) gm/dL Sodium (137-145) mmol/L Chloride (98-107) mmol/L Carbon Dioxide (22-30) mmol/L Creatinine (0.66-1.25) mg/dL Glucose (74-99) mg/dL POC Glucose (mg/dL) 214 H 235 H (70-110) mg/dL AST (17-59) U/L ALT (4-49) U/L Total Protein (6.3-8.2) g/dL Albumin (3.5-5.0) g/dL Microbiology - Last 24 Hours (Table) 05/01/25 12:15 Gram Stain - Final Sputum Sputum Culture - Final Staphylococcus aureus Klebsiella Pneum subsp ozaenae 04/30/25 20:20 Gram Stain - Final Sputum Sputum Culture - Final Staphylococcus aureus Klebsiella pneumoniae
--- NOTE | 2025-05-03 17:13 | P.PN ---
Subjective Progress Note Date: 05/03/25 This is a 64-year-old male patient was undergone a C 7 T1 discectomy, done posteriorly with wide laminectomy and foraminotomy and partial facetectomy. The patient was experiencing cervical myelopathy with severe bilateral lower extremity weakness and T8 paresthesia. The patient has previous history of cervical spine fusion C2-C7. The patient was found to have a large herniated disc C7-T1 with severe spinal cord stenosis and based on that the patient was taken to the operating room and underwent a C7-T1 discectomy on 03/21/2025. The patient has become progressively more hypoxic. The patient developed lower lobe pneumonia left more than right. 04/09/2025 the patient is being seen for a follow-up in the intensive care unit. This morning, the patient is awake and alert. He has gotten progressively more debilitated over the past 10 days. He is managed in the intensive care unit for his acute hypoxic respiratory failure and left lower lobe pneumonia. He has required 2 bronchoscopies and the bronchoscopy is done on 03/26/2025 showed Serratia marcescens and the patient's nasal screen was positive for MSSA. The most recent chest x-ray from this morning shows a persistent consolidation in the left lung base and some atelectatic change in lung base bilaterally. No significant interval change compared to earlier chest x-rays. The patient remains on Airvo and earlier this morning the patient was on 6 L with an FiO2 of 65%. IV fluids are currently at KVO. The patient remains on IV cefazolin. Samuels catheter is in place. He has developed increased edema in his right upper extremity. Hemodynamically stable. The white cell count is at 10.2 with a hemoglobin 12.1 and a platelet count of 85. BUN is 19 with a creatinine of 0.37. Remains on IV Solu-Medrol. Spine surgery is on the case. He continues to have difficulties with lower extremity paralysis. He does have some numbness which is improved around his abdomen towards the groin. He does not have any sensation in his lower extremities except for some increased sensation in his right greater toe and no motor function in his lower extremities bilaterally. He is wearing compression stockings and boots. He does have some weakness also in his upper extremities. The patient is postop day #17. He is awake and alert and communicating. He is off the BiPAP. He remains on NovoLog 10 units 3 times daily with meals. Rest of the medications are essentially unchanged. 05/07/2025, patient is being seen for a follow-up. Oxygenation is stable for now. The patient was taken off the Airvo yesterday and the patient was placed on 10 L of oxygen by nasal cannula. Earlier this morning, the patient showed adequate oxygenation and the patient was further weaned down to 8 L/min nasal cannula. Chest x-ray shows a stable left lower lobe consolidation. The patient remains on the same antibiotics and the patient remains IV cefazolin. Cough remains weak. IV fluids are currently at KVO. No fever or chills. He does juan ve some sensation in lower extremities bilaterally although this is minimal. Motor function is still absent. The white cell count 8.7 with a hemoglobin 11.7 and a platelet count of 90. BUN 17 with a creatinine 0.49 and sodium is 136. No other significant events overnight. Will considering discharging this patient to an LTAC facility. The patient is postop day #18. On 04/11/2025, the patient is being seen for a follow-up. The patient shows ongoing improvement in the oxygenation and the patient is currently on 40 of oxygen by nasal cannula. Overnight, the patient utilizing a BiPAP at a pressure of 14 over 8 cm of water regarding his obstructive sleep apnea. He is doing well. He has some sensation above the thighs. No motor function lower extremities bilaterally. Upper extremities remain weak. Cough remains weak. He is on Lantus insulin 50 units daily and NovoLog 10 units with meals and sliding scale coverage. He remains on prednisone 40 mg p.o. daily. He remains on Lovenox for DVT prophylaxis. Samuels catheter to be discontinued today. He is awake and alert and communicating. The white cell count is 8.6 with a hemoglobin 11.4 and a platelet count of 85. BUN 16 with a creatinine 0.4. Sodium level is 133 and the blood sugar is at 169. Patient is being considered for LTAC. Insurance authorization has not been obtained. He is postop day #19. 04/12/2025, the patient is found to be slightly hypotensive. Overnight, the patient was given a bolus of 500 cc. Blood pressure is currently soft with a systolic in the mid 80s. Urine output was also low. The patient will be given another bolus of 1 L and is asked to be placed on hold. He is currently on liters of oxygen by nasal cannula. No respiratory difficulties. Neurologically unchanged. The white cell count is at 8.6 with a hemoglobin 10.8 and a platelet count has dropped further down to 55. K is at 3.9. BUN 16 with a creatinine 0.3. No antibiotics at this point and the patient remains on prednisone 40 mg p.o. daily. The patient is postop day #20. Tolerating diet. No issues with swallowing. 04/13/2025, the patient is being seen for a follow-up. The patient is calm and comfortable. Blood pressure remains soft yet stable. The patient was taken off the lisinopril. Fluid balance is +30 cc over the past 24 and the patient remains on 3 L of oxygen by nasal cannula. Afebrile. Awake and alert and communicating. Repeat chest x-ray was done this morning and it shows no lung volumes left greater than right base with small bilateral pleural effusion. No significant changes otherwise compared to yesterday. Tolerating diet. Motor function is unchanged lower extremity and the patient has no motor function in his legs bilaterally. Sensation is slightly present above the knees in the th ighs bilaterally. Motor function upper extremities 4 out of 5. The white Of 9.8 with a Heme of 10.4 and the Platelet Count of 55. BUN Is 18 with a Creatinine of 0.28 and a Sodium of 132. Glucose at 149. Patient Remains on Lovenox 40 Mg Subcu for DVT Prophylaxis. Remains on Lantus 50 Units Daily and NovoLog Sliding Scale Coverage. Rest of the Medications Are Essentially Unchanged. Remains on Prednisone 40 Mg P.O. Daily. No Issues with Pain. Continues to Wear a Hard Neck Collar. The patient is postop day #21. On 04/14/2025, the patient is being seen for a follow-up. Condition is stable and he remains on 3 L of oxygen by nasal cannula. Hemodynamically stable. Blood pressure is stable. The patient on Lantus insulin 15 yesterday. The patient on prednisone 40 mg p.o. daily. Blood work from today still pending. No new complaints otherwise for now. Tolerating diet. Having bowel movement. Using incentive spirometer. Was transitioned on the chair. Neurologically unchanged and the patient has no motor function lower extremities bilaterally. He is postop day #22. On 04/15/2025, the patient is being seen for a follow-up. Sitting up in a chair and the patient is calm and comfortable. No motor function lower extremities bilaterally in the patient's neurologic status essentially unchanged. The patient remains on oxygen and the patient is currently on 4 L of O2 nasal ca nnula with a pulse ox of 91%. Using incentive spirometer. No respiratory distress. Tolerating diet. The white cell count is 4.9 with a hemoglobin 10.3 and a platelet count of 62. BUN 17 with a creatinine of 0.4. Potassium level is at 3.0 that needs to be replaced. Platelet count is improved compared to yesterday. No other new complaints otherwise for now. April 16, 2025 in follow-up on the selective care unit. He is currently sitting up in bed. Awake and alert in no acute distress. He is maintaining O2 saturation in the low 90s on 4 L/min per nasal cannula. He has been afebrile. Hemodynamically stable. White count 3.8. Hemoglobin 9.8. Platelets 59,000. Sodium 135. Potassium 3.2. Bicarb 30. BUN 15. Creatinine 0.33. Glucose 111. He remains on DuoNeb inhalations. Lovenox for DVT prophylaxis. Remains on a prednisone taper. Awaiting a bed at [facility]. Insurance authorization remains an issue. The patient is seen today April 17, 2025 in follow-up on the selective care unit. He is sitting up in bed. Awake and alert. He is having increasing shortness of breath today with increasing dyspnea. Chest x-ray is again starting to show opacity in the left lung. He continues with a very weak cough. Unable to clear his own secretions. He has been working with respiratory therapy including with the incentive spirometer and flutter valve. He is now requiring 15 L high flow nasal cannula. He has been intolerant to BiPAP. Sodium 135. Potassium 3.8. Bicarb 32. BUN 16. Creatinine 0.40. Glucose 92. He remains on DuoNeb inhalations. Lovenox for DVT prophylaxis. Continued on Mucinex. The patient is seen today April 23, 2025 in follow-up in the intensive care unit. He had again developed respiratory distress while up on the regular medical floor and a near complete whiteout of the left lung. He was placed on BiPAP and showed improvement. Today he is sitting up in a chair. Awake and alert in no acute distress. There is still some left lower lung collapse on the chest x- ray. He remains on Airvo high flow oxygen at 55 L and 75% FiO2 during the day. He is utilizing BiPAP at night 12/8 and 60% FiO2. He remains on Zosyn. He has normal saline at KVO. He attempts to work with the incentive spirometer and the flutter valve but his voice remains weak. His cough remains very weak. He does have paraplegia. He does not even feel subcu injections into the lower abdomen. He remains on DuoNeb inhalations. Receiving chest physiotherapy. Lovenox for DVT prophylaxis. Protonix for GI prophylaxis. The patient is seen today April 24, 2025 in follow-up in the intensive care unit. He is currently sitting up in bed. Awake and alert in no acute distress. He continues to have minimal tolerance for any activity without having shortness of breath and desaturations. His chest x-ray is again showing worsening left lower lobe collapse. He refused to wear the BiPAP last evening. He remains quite anxious about it. He remains on Airvo high flow nasal cannula at 60 L and 80% FiO2. Initial bronch wash cultures from March 26, 2025 was positive for Serratia marcescens. He is currently on Zosyn. White count 8.3. Hemoglobin 10.7. Platelets 339. Sodium 136. Potassium 3.6. Bicarb 29. BUN 13. Creatinine 0 .32. Glucose 127. He remains on DuoNeb inhalations, Mucinex, prednisone. Lovenox for DVT prophylaxis. Protonix for GI prophylaxis. The patient is seen today April 26 2025 in follow-up in the intensive care unit. He is awake and alert. Still requiring BiPAP support 16/8 and 50% FiO2 to maintain O2 saturations in the 90s. He has normal saline at 75 mL/h. White count 8.7. Hemoglobin 10.3. Platelets 329. Sodium 135. Potassium 3.6. Bicarb 32. BUN 13. Creatinine 0.31. Glucose 121. Chest x-ray continues to show a left lower lobe infiltrate. He remains on DuoNeb inhalations. Currently sedated on Precedex 0.3 mcg/kg/h. Plan is for tracheostomy and PEG tube placement today. The patient is seen today April 27, 2025 in follow-up in the intensive care unit. He is currently resting in bed. Sedated on propofol at 25 mcg/kg/min. Normal saline at 75 mL/h. He is on the ventilator currently at a 6 control mode at a rate of 20, tidal volume 400, FiO2 50% and a PEEP of 8. Blood gases revealed a PO2 of 83, PCO2 of 46 and a pH of 7.45. White count 11.5. Hemoglobin 10.1. Platelets 324. Sodium 138. Potassium 2.9. Bicarb 31. BUN 11. Creatinine 0.29. Glucose 103. He remains on DuoNeb inhalations, Pulmicort and Perforomist inhalations, prednisone. Being nourished with vital HP at 10 mL/h with a goal of 40. Tracheostomy and PEG tubes placed yesterday. The patient is seen today April 28, 2025 in follow-up in the intensive care unit. He remains on mechanical ventilator via tracheostomy tube and assist-control mode at a rate of 20, tidal volume 400, FiO2 40% and a PEEP of 8. Morning blood gases revealed a PO2 of 73, [id number] and a pH of 7.46. He is sedated lightly on propofol at 10 mcg/kg/min. Normal saline at 75 mL/h. Being nourished via PEG tube with vital HP at 30 mL/h with a goal of 40 mL/h. Chest x-ray reveals retrocardiac opacity and small bilateral pleural effusions. White count 12.2. Hemoglobin 10.0. Platelets 289. Sodium 135. Potassium 3.0. Bicarb 28. BUN 7. Creatinine 0.21. Glucose 101. He remains on DuoNeb inhalations, Pulmicort and Perforomist inhalations, prednisone taper. Lovenox for DVT prophylaxis. Protonix for GI prophylaxis. The patient is seen today April 29, 2025 in follow-up in the intensive care unit. He remains on mechanical ventilator currently in assist-control mode at a rate of 20, tidal volume 400, FiO2 50% and a PEEP of 8. Morning blood gases reveal a PO2 of 84, PCO2 of 44 and a pH of 7.50. He is sedated on propofol 25 mcg/kg/min. Receiving normal saline at 75 mL/h. He is being nourished with vital HP at 40 mL/h. White count 12.6. Hemoglobin 9.0. Platelets 335. Sodium 137. Potassium 3.2. Bicarb 32. BUN 7. Creatinine 0.18. Glucose 141. Chest x-ray reveals resolution of the previous small right pleural effusion. Stable left pleural effusion. No cardiomegaly or pulmonary vascular congestion. No airspace consolidation. 04/30/2025, the patient is being seen for a follow-up. The patient remains on a mechanical ventilator. He is awake and arousable while being on propofol running at 50 mcg/kg/min. He is on assist-control mode rate of 20, tidal volume of 400, FiO2 60% with a PEEP of 8. His blood gases showing a pH of 7.46 with [id number] and PO2 of 67. The patient has a lumbar 7.5 [address] trache[address] tube in place and the patient also has a PEG tube with vital high-protein running at 40 cc an hour. No active diarrhea and his diarrhea subsided and the fecal management system will be removed. Minimal respiratory secretions. Chest x-ray from today showing ongoing infiltrates/consolidation lung bases and small amount of fluid and atelectasis in the lung bases. Noted the patient had an extensive left lower lobe pneumonia that was attributed to Serratia marcescens and the patient was treated with broad-spectrum antibiotics and the patient was taken off antibiotics and currently is on no antibiotics. He remains on 20 mg of prednisone. Neurologically unchanged the patient has no motor function lower extremities bilaterally. He is still on Lantus insulin 5 units daily and a sliding scale coverage. He is arousable and communicating. He remains on Lovenox 40 mg subcu on a daily basis. On 05/01/2025, the patient is being seen for a follow-up. The patient remains on a mechanical ventilator. The patient is off propofol for now. Calm and comfortable. Patient has a tracheostomy tube and the patient is having copious amount of respiratory secretions, purulent around the tracheostomy stoma. Sputum sample will be sent again. Meanwhile, the patient is having fever with a Tmax of 100.4. The patient will also start on broad-spectrum antibiotics. He is currently on assist-control mode at rate of 20, tidal volume of 400, FiO2 of 60% with a PEEP of 8. Blood gas showed a pH of 7.49 with a [id number] and PO2 of 71. The patient's chest x-ray from today is showing volume loss and small to moderate-sized bilateral pleural effusion/atelectasis in the lung bases and similar findings were also noted on the CAT scan of the chest that was done on 05/01/2025. The patient was started on broad-spectrum antibiotics. The patient will be given a combination of cefepime and vancomycin. The patient had a net fluid balance of -2.5 L over the past 24 hours. Another dose of Lasix will be given today. Rest of the blood work shows a white cell count of 20 and a white cell count on the right with a hemoglobin 9.1 and a platelet count of 293. Sodium is at 137, potassium is 3.9, BUN 11 with a creatinine of 0.23. On 05/02/2025, the patient is being seen for a follow-up. Awake and arousable and communicating. Able to move his upper extremities. No motor function lower extremities bilaterally. Neurologically unchanged. No fever for today. His white cell count is improved compared to yesterday and the white cell count is currently down to 1 17.5 and the patient is afebrile. Sputum samples were collected yesterday and there is presumptive Staph aureus and Klebsiella on those cultures. This was confirmed on 2 separate samples from 04/30/2025 and 05/01/2025. The patient is already on cefepime and vancomycin pending the cultures to be finalized and pending further sensitivities. Meanwhile, a repeat chest x-ray was done and the chest x-ray from today showing bilateral lower lobe consolidation and effusions. There is a small left-sided pleural effusion and right basilar has some increased in interval. Overall respiratory secretions are improved compared to yesterday and the patient is requiring less suctioning. He has a negative fluid balance of 1.8 L while receiving IV Lasix. He has a fecal management system in the stool output has also improved. The white cell count at 17 with a hemoglobin 7.7 and platelet count of 247. BUN is 70 with a creatinine of 0.2. Sodium is at 134 and potassium level is at 4.4. No other significant events otherwise. On 05/03/2025, the patient is being seen for a follow-up. Patient is having copious amount of respiratory secretions. Based on that, I performed a bronchoscopy at the bedside and a total of 30 cc of purulent respiratory secretions were suctioned out from the patient's airways more so from the right lower lobe. Those were sent for cultures. Noted earlier sputum sample that was collected on this patient from 04/30/2025 and 05/01/2025 showed MSSA and Klebsiella pneumoniae. For now, the patient is covered with IV cefepime. Patient is also on vancomycin. Awaiting repeat cultures from the bronchoscopy and the bronchial lavage. Meanwhile, the patient remains on the mechanical osman tilator. The patient on assist-control at rate of 20, tidal volume of 400, FiO2 60% with a PEEP of 10. The chest x-ray done from today showed bilateral patchy pulmonary infiltrates more so on the right lung base and possibly some trace pleural effusions. Tracheostomy tube is in a good location. Blood gas showed a pH of 7.44 with a [id number] PO2 of 131. WBC close at 1 18.9 with a hemoglobin of 8.4 and a platelet count of 227. Sodium is at 135, BUN is 20 with a creatinine of 0.22. Potassium levels are 3.4. Remains on vital HP at rate of 40 cc an hour. Liquidy output through the fecal management system in the patient's stool for C. difficile has been negative. The patient remains on DuoNeb nebulizer treatments [id number]. The patient remains on steroids and the prednisone will be dropped down to 10 mg p.o. daily. Abdomen is slightly distended and tympanic. Patient is on Lantus insulin 5 units daily and insulin Scale insulin coverage. No other significant events otherwise for now. He is afebrile. Hemodynamically stable. His net fluid balance has been in the order of -1.8 L over the past 24 hours and the patient received diuretics. Objective - Vital Signs Vital signs: Vital Signs Temp 98.1 F 05/03/25 08:00 Pulse 108 H 05/03/25 10:00 Resp 19 05/03/25 10:00 BP 112/68 05/03/25 10:00 Pulse Ox 95 05/03/25 10:00 FiO2 60 05/03/25 09:04 Intake & Output 05/02/25 05/03/25 05/03/25 18:59 06:59 18:59 Intake Total 1380 1318 230 Output Total 1320 435 245 Balance 60 883 -15 Weight 96.7 kg Intake: IV 720 878 40 0.9@10 120 110 40 Cefepime 2 gm In Sodium 100 100 Chloride 0.9% 100 ml @ 25 mls/hr IVPB Q8H [facility] Rx#: [id number] Vancomycin 2,000 mg In 500 668 Sodium Chloride 0.9% 500 ml 500 ml @ 167 mls/hr IVPB Q12H [facility] Rx#: [id number] Oral 90 Tube Feeding 480 440 160 Other 90 30 Output: Urine 720 435 245 Stool 600 Other: Voiding Method Indwelling Catheter Indwelling Catheter Indwelling Catheter - Exam General: nontoxic, no distress, appears at stated age, patient is currently on a mechanical ventilator and the patient has a 7.[address] tube in place. Derm: warm, dry, intact, dressing noted at the back of neck with no signs of drainage or bleeding. Head: atraumatic, normocephalic, symmetric Eyes: EOMI, anicteric sclera Mouth: no lip lesion, mucus membranes moist Cardiovascular: S1 S2 reg, no murmur, rubs, or gallops Lungs: Diminished breath in the lung bases bilaterally. No significant wheezing. Abdominal: soft, a bowel sounds are present and the patient has a PEG tube in place. Extremities: no gross muscle atrophy, no edema, no contractures, patient is unable to move bilateral lower extremity, increased edema in the right upper extremity. Neuro: Alert, Oriented, CNII-XII grossly intact, gait cannot be assessed as the patient has absent motor function lower extremities bilaterally patient has bilateral foot drop. Reflexes are diminished. No Babinski. No clonus. - Labs CBC & Chem 7: 05/03/25 03:25 05/03/25 11:28 Labs: Abnormal Lab Results - Last 24 Hours (Table) 05/02/25 05/02/25 05/03/25 Range/Units 11:48 18:08 03:25 WBC (4.50-10.00) 10*3/uL RBC (4.40-5.60) 10*6/uL Hgb (13.0-17.0) g/dL Hct (39.6-50.0) % MCHC (32.0-37.0) g/dL MPV (9.5-12.2) fL Immature Gran # (0.00-0.04) 10*3/uL Neutrophils # (Manual) (1.3-7.7) k/uL Sodium 135 L (137-145) mmol/L Chloride 94 L (98-107) mmol/L Carbon Dioxide 35 H (22-30) mmol/L Creatinine 0.22 L (0.66-1.25) mg/dL Glucose 156 H (74-99) mg/dL POC Glucose (mg/dL) 221 H 233 H (70-110) mg/dL AST 67 H (17-59) U/L ALT 77 H (4-49) U/L Total Protein 4.7 L (6.3-8.2) g/dL Albumin 2.4 L (3.5-5.0) g/dL 05/03/25 05/03/25 Range/Units 03:25 06:18 WBC 18.95 H (4.50-10.00) 10*3/uL RBC 2.84 L (4.40-5.60) 10*6/uL Hgb 8.4 L (13.0-17.0) g/dL Hct 26.9 L (39.6-50.0) % MCHC 31.2 L (32.0-37.0) g/dL MPV 9.3 L (9.5-12.2) fL Immature Gran # 1.59 H (0.00-0.04) 10*3/uL Neutrophils # (Manual) 16.67 H (1.3-7.7) k/uL Sodium (137-145) mmol/L Chloride (98-107) mmol/L Carbon Dioxide (22-30) mmol/L Creatinine (0.66-1.25) mg/dL Glucose (74-99) mg/dL POC Glucose (mg/dL) 214 H (70-110) mg/dL AST (17-59) U/L ALT (4-49) U/L Total Protein (6.3-8.2) g/dL Albumin (3.5-5.0) g/dL Microbiology - Last 24 Hours (Table) 04/30/25 20:20 Gram Stain - Final Sputum Sputum Culture - Final Staphylococcus aureus Klebsiella pneumoniae 05/01/25 12:15 Gram Stain - Preliminary Sputum Sputum Culture - Preliminary Presumptive Staph aureus Klebsiella Pneum subsp ozaenae Assessment and Plan Plan: Acute hypoxic respiratory failure, multifactorial. The patient has developed bilateral pneumonia. The patient had a follow-up CAT scan of the chest done on 05/01/2025 and the patient was found to have consolidation/atelectasis along with small bibasilar pleural effusions. Sputum sample is positive for presumptive Staph aureus and Klebsiella pneumonia and the patient is currently on a combination of cefepime and vancomycin. Repeat bronchoscopy was done on 05/03/2025 and copious amount of purulent respiratory secretions were aspirated specially from the right lower lobe. Fever, temperature is being monitored Leukocytosis, improved Purulent secretions around the tracheostomy stoma, with positive sputum cultures, and respiratory secretion have improved compared to yesterday. Chest x-ray continues to show lower lobe consolidation/atelectasis. Chronic respiratory insufficiency due to prolonged hospitalization, recurrent pneumonia and a very weak cough mechanism following a spine surgery T8 spinal cord injury. The patient has severe spinal canal stenosis at the level of C7/T1 with motor weakness in the lower extremities in addition to myelopathy. The patient is post C7/T1 discectomy with decompression and fusion and the patient also had extension of a previous C2/7 fusion to T3. Thrombocytopenia, recovered Abdominal distention/ileus, recovered, and the patient has a PEG tube and the patient is receiving enteral feeding for history of support Obstructive sleep apnea maintain CPAP therapy on outpatient basis Diabetes mellitus type 2, with steroid-induced hyperglycemia, currently on Lantus 5 units daily and sliding scale coverage Hypotension, rule out septic versus neurogenic hypotension post spine surgery, recovered Hyperlipidemia Bilateral lower extremity weakness, ongoing motor weakness in the lower extrem ities bilaterally with absent motor function at this point with bilateral foot drop. Patient's sensations in the lower limbs have improved, but now patient is completely paraplegic. T8 spinal cord injury with motor paralysis lower extremities bilaterally with absent sensation. He does have some feelings in his lower abdomen towards the groin. History of prior cervical fusion C3-C7 History of severe L5-S1 neuroforaminal stenosis Plan Continue ventilator support, no vent changes for today noncontrast CAT scan of the chest was noted and is consistent with bilateral pleural effusion and atelectatic changes lung base bilaterally. Pneumonia is highly likely as the patient has Klebsiella and Staph aureus/MSSA in the sputum samples. Bronchoscopy was done on 05/03/2025 with therapeutic airway suctioning Monitor fever pattern Monitor white cell count, remains elevated Continue IV cefepime and vancomycin Aggressive pulmonary toileting Continue DuoNeb nebulizer treatments [id number] Pain control and muscle relaxants IV fluids to KVO Continue vital HP for enteral feeding and nutritional support. Dilaudid for pain control in combination with Jasper as needed Lantus insulin 5 units on a daily basis along with sliding scale coverage Prednisone 10 mg p.o. daily. Keep Samuels catheter in place Aggressive pulmonary toileting we will continue to follow make further recommendations based on his progress. This evaluation was done 35 minutes. Time with Patient: Greater than 30
--- NOTE | 2025-05-03 17:15 | P.PCN ---
Date of Procedure: 05/03/25 Preoperative Diagnosis: Bilateral pneumonia Postoperative Diagnosis: Bilateral pneumonia and copious amount of purulent respiratory secretions accumulated within the airways, post therapeutic airway suctioning and a bronchial lavage of the right lower lobe Procedure(s) Performed: Flexible bronchoscopy and BAL of the right lower lobe Anesthesia: MAC Surgeon: Netta Lala Estimated Blood Loss (ml): 0 Pathology: other Condition: critical Disposition: ICU Operative Findings: The procedure was done in the intensive care unit. The patient was already on the mechanical ventilator and the patient has a tracheostomy tube in place. The disposable flexible bronchoscope was introduced through the tracheostomy tube and it was advanced into the lower trachea. Immediately, copious amount of purulent respiratory secretions were encountered throughout the patient's airway most abundant in the right lower lobe. Therapeutic airway suctioning was done and a total of 30 cc of purulent respiratory secretions were aspirated and suctioned out without any major difficulties. Airway inspection was completed. Underlying bronchial mucosa was inflamed and erythematous. Nevertheless, the airways were patent post therapeutic airway suctioning. Distal trachea, bilateral mainstem bronchi, right upper lobe bronchus, bronchus intermedius, right middle lobe and right lower bronchus and the various 10 segments on the right in addition to the left mainstem bronchus, left upper lobe bronchus and left lower lobe bronchus and the various 8 segments on the left were all inspected. No endobronchial tumors or lesions. At the completion of the procedure, there was adequate airway patency and the patient's hospital secretions were suctioned out. A BAL of the right lower lobe was done. A total of 40 cc of saline was infused and 20 cc was aspirated. Procedure was terminated and the bronchoscope was removed. The BAL will be sent for cultures. No oxygen desaturation and patient was hemodynamically stable throughout the procedure.
[2025-05-03 18:02] LABS: Glucose,Whole Blood 221 mg/dL (70-110)
[2025-05-03] MEDS: FUROSEMIDE 10 MG/ML 4 ML VIAL IV STA (18:10)
[2025-05-03] MEDS: VANCOMYCIN 2,250 MG in SODIUM CHLORIDE 0.9% 500 ML 500 ML IVPB SCH (19:45)
[2025-05-03 23:15] LABS: Glucose,Whole Blood 196 mg/dL (70-110)
[2025-05-04 05:24] LABS: HCT 26.8 % (39.6-50.0); HGB 8.5 g/dL (13.0-17.0); MCH 29.7 pg (27.0-32.0); MCHC 31.7 g/dL (32.0-37.0); MCV 93.7 fL (80.0-97.0); Platelet Count 217 10*3/uL (140-440); RBC 2.86 10*6/uL (4.40-5.60); RDW 14.6 % (11.5-14.5); WBC 16.79 10*3/uL (4.50-10.00)
[2025-05-04 05:41] LABS: ALT 94 U/L (4-49); AST 58 U/L (17-59); Albumin 2.4 g/dL (3.5-5.0); Alkaline Phosphatase 66 U/L (38-126); Anion Gap 4 mmol/L; Blood Urea Nitrogen 24 mg/dL (9-20); Calcium 8.5 mg/dL (8.4-10.2); Carbon Dioxide 37 mmol/L (22-30); Chloride 93 mmol/L (98-107); Glucose 195 mg/dL (74-99); Magnesium 1.8 mg/dL (1.6-2.3); Potassium 3.4 mmol/L (3.5-5.1); Sodium 134 mmol/L (137-145); Total Protein 4.9 g/dL (6.3-8.2)
[2025-05-04 05:42] LABS: African American GFR (CKD) >90 (>60 ml/min/1.73 sqM); Non-African American GFR(CKD) >90 (>60 ml/min/1.73 sqM)
[2025-05-04 05:54] LABS: ABG PCO2 51 mmHg (35-45); ABG PH 7.51 (7.35-7.45); ABG PO2 119 mmHg (83-108); ABG TCO2 41 mmol/L (19-24)
[2025-05-04 05:56] LABS: ABG HCO3 40 mmol/L (21-25); Allen Test Performed? No
[2025-05-04 06:13] LABS: Glucose,Whole Blood 197 mg/dL (70-110)
[2025-05-04] MEDS: MAGNESIUM SULFATE-D5W PMX 1 GM in DEXTROSE/WATER 1 100ML.BAG IVPB ONE (06:23)
[2025-05-04] MEDS: POTASSIUM BICARBONATE/CIT AC 20 MEQ TABLET.EFF NG-TUBE SCH (06:23)
[2025-05-04 07:32] LABS: Lymphocytes # (M) 1.01 k/uL (1.0-4.8); Metamyelocytes # (M) 0.84 k/uL (0); Monocytes # (M) 0.17 k/uL (0-1.0); Myelocytes # (M) 0.50 k/uL (0); Neutrophils # (M) 14.27 k/uL (1.3-7.7); Neutrophils % (M) 76 %; Total Cells Counted 100
--- NOTE | 2025-05-04 08:46 | P.PN ---
Progress Note - Text Progress Note Date: 05/04/25 Orthopedic spine: History of present illness: Patient is a very pleasant 65-year-old male who is seen examined at bedside in the ICU for follow-up evaluation of the cervical spine. He is status post posterior cervical decompression discectomy at C7-T1 with extension of fusion from C7 down to T3. Patient is not talking with his tracheostomy in place but is able to nod and perform gestures with his right hand to answer questions. He has not had any change from an orthopedic spine standpoint. He does have some sensation over his anterior thighs which he states again is greater on the right than the left. He has no sensation in his calfs. Compression stockings and pneumatic boots are intact. He has had a tracheostomy placed. Due to this, the anterior portion of his hard cervical collar has been removed. He continues with dressing changes as needed over the posterior cervical spine. He is not experiencing any cervical pain. He has adequate range of motion of his bilateral upper extremities except for his shoulders bilaterally. 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 He is awake and alert. He continues have significant difficulty with this bilateral lower extremities. He has some improved numbness around his abdomen towards the groin and some increased sensation over his anterior thighs. He admits to continued sensation in his right great toe. He has no motor function in his lower extremities. His lower extremity symptoms have not improved. Samuels catheter continues to be present after failing a voiding trial. He will be discharged with a catheter intact. Fecal management system has been placed. He is being managed in the ICU by pulmonary critical care. Patient's cultures have resulted positive for Klebsiella Pneumonia. He will be treated for this per pulmonology critical care. Patient has received authorization through the [place] for approval for discharge to spinal cord rehabilitation facility. They [facility] [place], [place]. Authorization has been obtained. However, the patient is not currently stable for discharge. He continues to be seen exam by multiple medical providers including pulmonology and medicine. Physical Exam Posterior Cervical Fusion: Status post surgical day number #44 Patient is awake and makes gestures to answer questions Pneumatic boots intact bilateral lower extremities Compression stockings intact bilaterally Samuels catheter intact Fecal management system intact Dressing intact at the inferior aspect of the incision site of the posterior cervicothoracic surgical site Posterior portion hard cervical collar is in tact; anterior portion is removed due to tracheostomy Tracheostomy intact; currently undergoing tracheostomy care Assessment: Spinal cord injury with paralysis at T8 Postoperative day #44: Status post posterior cervical decompression discectomy at C7-T1 with extension of fusion from C7-T3 Bilateral lower extremity paralysis Bilateral lower extremity loss of sensation Acute hypoxic respiratory failure Left-sided atelectasis Obstructive sleep apnea syndrome on CPAP normally Type 2 diabetes Hypotension could be related to sepsis could also be neurogenic post spinal surgery Dyslipidemia Tracheostomy placement Fecal management system placement Plan: We will continue with our plan as set forth previously. 1. Patient continues to remain in the ICU due to pulmonary status. He continues to be closely managed from pulmonary standpoint. Patient's cultures have resulted positive for Klebsiella Pneumonia. He will be treated for this per pulmonology critical care. Patient has received authorization through the [place] for approval for discharge to spinal cord rehabilitation facility. They are currently planning for [facility] [place], [place]. Authorization has been obtained. 2. Patient must keep his hard cervical collar intact at all times. However, the anterior portion is currently unable to be intact due to his tracheostomy. Patient may continue with dressing changes as needed at the posterior cervical spine. 3. Patient continues to have flaccid paralysis in his bilateral lower extremities. He has had some increase in sensation around his abdomen towards his groin and admits to some increased sensation over his anterior thighs greater on the right than the left. He continues to have some sensation in his right great toe and does feel some increase sensation over the toes of the right foot and the top of the right foot. He continues to have paralysis.. They s hould continue with position change regularly to help prevent decubitus transfer to a bedside chair when possible. 4. When medically stable clear, patient will be planning to be discharged to a spinal cord facility for rehabilitation. They are currently planning for [facility] [place], [place]. Authorization has been obtained. However, the patient is not currently stable for discharge. Due to the fact that this [facility] a [facility] and is considered inpatient, the patient will be unable to follow-up for further evaluation in the outpatient setting until they are discharged from this [facility] facility. 5. We will plan for cervical x-rays prior to discharge from the hospital. 6. Patient may follow-up with Jesu Villarreal PA-C or Dr. Gideon Noyola at [facility] in 2-3 weeks following discharge from spinal cord rehabilitation facility. The patient was seen and examined. I agree with the above. He will continue his medical management as per critical care
[2025-05-04] MEDS: predniSONE 10 MG TAB PO SCH (08:56)
--- NOTE | 2025-05-04 09:16 | XR ---
EXAMINATION TYPE: XR chest 1V portable DATE OF EXAM: 05/04/2025 4:41 AM COMPARISON: 05/03/2025 CLINICAL INDICATION: Male, 65 years old with history of Mechanical ventilation, , FINDINGS: Tracheostomy cannula. ACDF hardware and posterior cervical fusion hardware redemonstrated. Right PICC tip at the cavoatrial junction. Heart borderline in size. Again, medial right basilar opacity. IMPRESSION: Similar to slight improving medial right basilar airspace disease. [facility], Workstation: JOSÉ ANTONIO, 05/04/2025 9:13 AM
[2025-05-04 11:12] LABS: Glucose,Whole Blood 219 mg/dL (70-110)
--- NOTE | 2025-05-04 15:03 | P.PCN ---
Date of Procedure: 05/03/25 Disposition: ICU Description of Procedure: INDICATION: Continous ABG monitoring and blood draws PROCEDURE ACADEMIC HOSPITALIST: Dr. Khalif Lopes ATTENDING PHYSICIAN: Dr. Netta Lala; In Attendance - N CONSENT: [X] During the informed consent discussion regarding the procedure, or tr eatment, I explained the following to the patient/designee: a. Nature of the procedure or treatment and who will perform the procedure or treatment. b. Necessity for procedure and the possible benefits. c. Risks and complications (most common and serious). d. Alternative treatments and the risks, benefits and side effects of each (including no treatment). e. Likelihood of the patient achieving his/her goals without this procedure and surgery treatment. f. Problems that might occur during the recuperation. g. Conflicts of interest, if any PROCEDURE SUMMARY: A time out was performed. My hands were washed immediately prior to the procedure. I wore a surgical cap, mask with protective eyewear, sterile gown and sterile gloves throughout the procedure. After an Darian test was performed to ensure adequate perfusion, the Left wrist was prepped using chlorhexidine scrub and draped in sterile fashion using a three quarter sheet drape and sterile towels. The radial pulse was identified and the wrist was positioned in the usual fashion. Anesthesia was achieved using 1% lidocaine. Using the Arrow Radial Arterial Line Kit, a needle was inserted into the radial artery. Arterial blood was seen to pulsate in the flash chamber. The internal guidewire was advanced easily into the radial artery. The catheter was then advanced over the wire and the needle and wire were withdrawn. The catheter was sutured in place. A sterile opsite was placed over the catheter at the insertion site. The patient tolerated the procedure without any hemodynamic compromise. At the time of procedure completion, the catheter was connected to the school bus monitor and calibrated. Appropriate waveform and blood pressure tracing was observed. Estimated blood loss is minimal.
--- NOTE | 2025-05-04 15:52 | P.PN ---
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 Wheeler) approximately 2 months ago, migraine headaches, depression. Presented to the emergency department with a chief complaint of sudden onset numbness extending from periumbilical region downwards throughout groin and bilateral lower extremities followed by weakness of bilateral lower extremities. Patient states he was moving some plants at home when he had sudden onset of numbness around his lower abdomen circling around him like a belt that quickly radiated into his groin and into bilateral lower extremities accompanied by weakness of bilateral lower extremities which resulted in his legs giving out from beneath him causing him to fall to the ground. Patient denied having any dizziness or lightheadedness, headache, neck or back pain, or experiencing any pain in his abdomen, groin, or lower extremities. He denies hitting his head during the fall and denies having any loss of consciousness. But reports due to the sudden onset numbness and weakness he was unable to stand back up and had to have his call EMS for transfer to the hospital. Upon arrival to our facility, patient underwent evaluation in the emergency department. Vital signs upon arrival show blood pressure 165/97, heart rate 88, respiratory rate 18, temp 98.8 F, and SpO2 of 97% on room air. CT lumbar spine CT abdomen and pelvis was also negative for acute intra-abdominal process completed showing no evidence for spinal fracture, no evidence for significant spinal canal stenosis revealing severe right L5-S1 neuroforaminal stenosis and moderate bilateral L4-L5 neuroforaminal stenosis, revealing a right middle lobe pulmonary nodule 8 mm, prostamegaly, colonic diverticulosis, and bilateral adrenal myolipoma's. Labs completed and reviewed. CBC unremarkable. BMP showing hyperglycemia with blood glucose of 146. Liver profile normal findings. Urinalysis positive for glucose and ketones but negative for infection. Patient was admitted under services with consultation to neurology and orthospine surgery. MRI lumbar spine was completed showing no definitive evidence of disc herniation or significant spinal canal stenosis revealing minimal disc degeneration with associated osteoarthritic changes. Patient underwent extensive cervical spinal surgery on the evening of 03/20/2025 through 03/21/2025. Subjective: No acute events overnight. Patient is status post bronchoscopy which with true purulent secretions, replaced on the ventilator with FiO2 of 80% required to keep oxygenation status in the 90s. Patient is now on cefepime, vancomycin Gen: In NAD, non-toxic HEENT: normocephalic, atraumatic, hearing acuity is intant, mucous membranes moist CVS: perfusing all extremities well, no pitting edema, Respiratory: symmetric chest expansion, no accessory muscle use, tracheostomy with ventilator dependence GI: soft, NTTP, ND, : no suprapubic tenderness, no CVA tenderness MSK/Derm: no rashes, cyanosis Neuro: CN II-XII intact, 0-5 lower extremity weakness bilaterally, 4+ out of 5 upper extremity motor Assessment and Plan: #. Acute hypoxemic respiratory failure secondary to severe atelectasis and mucous plugging status post bronchoscopy x 2 #. Healthcare acquired Pneumonia secondary to Serratia and Milagros #. Leukocytosis,resolved #. Persistent atelectasis - Patient remains in the ICU, vent dependent, status post trach and PEG -Continue cefepime, vancomycin - Previously extubated on 04/02/25 Continue with steroid taper, prednisone 10 mg daily Continue DuoNebs 4 times daily and every 2 hours as needed Continue with Mucomyst, DuoNebs 4 times daily, every 2 hours as needed Encourage incentive spirometry Aggressive pulmonary toileting Monitor CBC #. Cervical myelopathy secondary to severe spinal canal stenosis involving C7-T1 #. Status post extensive cervical decompression with discectomy at C7-T1 and fusion with extension of fusion from C3-C7 with new extension down to T3 #. Severe right L5-S1 neuroforaminal stenosis #. Moderate bilateral L4-L5 neuroforaminal stenosis Orthopedic surgery following status post extensive cervical decompression with dissecting at C7-T1 and fusion with extension of fusion from C3-C7 with new extension down to T3 Continue Prednisone taper as above Completed course of IV cefazolin Continue neurochecks every 4 hours and as needed. Maintain fall precautions Continue Samuels catheter, patient is retaining Continue Unna boot bilaterally to prevent foot drop PT/OT Social work following with regards to disposition #. Type II rph-ifczlmd-jbqaaugpc diabetes mellitus Hyperglycemia likely secondary to high-dose steroids being administered at this time. Improving. -Lantus 5 units daily, sliding scale insulin #. normocytic anemia, slightly downtrending, continue to monitor #. Hypokalemia, resolved #. Hypomagnesemia, resolved #. Bilateral lower extremity edema, stable #. Thrombocytopenia, stable, resolved # Respiratory acidosis, resolved # Metabolic alkalosis, resolved Hypotension, resolved - Continue to hold antihypertensives Chronic: #. Hypertension #. Hyperlipidemia #. Obstructive sleep apnea #. BPH #. Restless leg syndrome #. Neuropathy DVT ppx: Lovenox Code status: Full code Anticipated discharge place: Pending clinical course Anticipated discharge time: Pending clinical course Objective - Vital Signs Vital signs: Vital Signs Temp 98.9 F 05/04/25 04:00 Pulse 96 05/04/25 13:30 Resp 26 H 05/04/25 13:00 BP 116/65 05/04/25 13:00 Pulse Ox 96 05/04/25 13:00 FiO2 60 05/04/25 13:20 Intake & Output 05/03/25 05/04/25 05/04/25 18:59 06:59 18:59 Intake Total 1450 1570 360 Output Total 795 1245 1510 Balance 655 325 -1150 Weight 96.7 kg Intake: IV 820 730 60 0.9@10 120 130 60 Cefepime 2 gm In Sodium 100 100 Chloride 0.9% 100 ml @ 25 mls/hr IVPB Q8H [facility] Rx#: [id number] Magnesium Sulfate-D5w Pmx 100 1 gm In Dextrose/Water 1 100ml.bag @ 100 mls/hr IVPB ONCE ONE Rx#: [id number] Vancomycin 2,000 mg In 500 500 Sodium Chloride 0.9% 500 ml 500 ml @ 167 mls/hr IVPB Q12H [facility] Rx#: [id number] Intake, IV Titration 100 Amount Magnesium Sulfate-D5w Pmx 100 1 gm In Dextrose/Water 1 100ml.bag @ 100 mls/hr IVPB ONCE ONE Rx#: [id number] Tube Feeding 540 650 300 Other 90 90 Output: Urine 795 1245 310 Stool 1200 Other: Voiding Method Indwelling Catheter Indwelling Catheter Indwelling Catheter ABP, PAP, CO, CI - Last Documented Arterial Blood Pressure 102/48 - Labs CBC & Chem 7: 05/04/25 05:10 05/04/25 05:10 Labs: Abnormal Lab Results - Last 24 Hours (Table) 05/03/25 05/03/25 05/04/25 Range/Units 18:01 23:15 05:10 WBC (4.50-10.00) 10*3/uL RBC (4.40-5.60) 10*6/uL Hgb (13.0-17.0) g/dL Hct (39.6-50.0) % MCHC (32.0-37.0) g/dL Immature Gran # (0.00-0.04) 10*3/uL Neutrophils # (Manual) (1.3-7.7) k/uL Metamyelocytes # (Man) (0) k/uL Myelocytes # (Manual) (0) k/uL ABG pH (7.35-7.45) ABG pCO2 (35-45) mmHg ABG pO2 (83-108) mmHg ABG HCO3 (21-25) mmol/L ABG Total CO2 (19-24) mmol/L ABG O2 Saturation (94-97) % Hemoglobin (13.0-17.5) gm/dL Sodium 134 L (137-145) mmol/L Potassium 3.4 L (3.5-5.1) mmol/L Chloride 93 L (98-107) mmol/L Carbon Dioxide 37 H (22-30) mmol/L BUN 24 H (9-20) mg/dL Creatinine <0.15 L (0.66-1.25) mg/dL Glucose 195 H (74-99) mg/dL POC Glucose (mg/dL) 221 H 196 H (70-110) mg/dL ALT 94 H (4-49) U/L Total Protein 4.9 L (6.3-8.2) g/dL Albumin 2.4 L (3.5-5.0) g/dL 05/04/25 05/04/25 05/04/25 Range/Units 05:10 05:44 06:13 WBC 16.79 H (4.50-10.00) 10*3/uL RBC 2.86 L (4.40-5.60) 10*6/uL Hgb 8.5 L (13.0-17.0) g/dL Hct 26.8 L (39.6-50.0) % MCHC 31.7 L (32.0-37.0) g/dL Immature Gran # 1.54 H (0.00-0.04) 10*3/uL Neutrophils # (Manual) 14.27 H (1.3-7.7) k/uL Metamyelocytes # (Man) 0.84 H (0) k/uL Myelocytes # (Manual) 0.50 H (0) k/uL ABG pH 7.51 H (7.35-7.45) ABG pCO2 51 H (35-45) mmHg ABG pO2 119 H (83-108) mmHg ABG HCO3 40 H* (21-25) mmol/L ABG Total CO2 41 H (19-24) mmol/L ABG O2 Saturation 99.3 H (94-97) % Hemoglobin 8.7 L (13.0-17.5) gm/dL Sodium (137-145) mmol/L Potassium (3.5-5.1) mmol/L Chloride (98-107) mmol/L Carbon Dioxide (22-30) mmol/L BUN (9-20) mg/dL Creatinine (0.66-1.25) mg/dL Glucose (74-99) mg/dL POC Glucose (mg/dL) 197 H (70-110) mg/dL ALT (4-49) U/L Total Protein (6.3-8.2) g/dL Albumin (3.5-5.0) g/dL 05/04/25 Range/Units 11:11 WBC (4.50-10.00) 10*3/uL RBC (4.40-5.60) 10*6/uL Hgb (13.0-17.0) g/dL Hct (39.6-50.0) % MCHC (32.0-37.0) g/dL Immature Gran # (0.00-0.04) 10*3/uL Neutrophils # (Manual) (1.3-7.7) k/uL Metamyelocytes # (Man) (0) k/uL Myelocytes # (Manual) (0) k/uL ABG pH (7.35-7.45) ABG pCO2 (35-45) mmHg ABG pO2 (83-108) mmHg ABG HCO3 (21-25) mmol/L ABG Total CO2 (19-24) mmol/L ABG O2 Saturation (94-97) % Hemoglobin (13.0-17.5) gm/dL Sodium (137-145) mmol/L Potassium (3.5-5.1) mmol/L Chloride (98-107) mmol/L Carbon Dioxide (22-30) mmol/L BUN (9-20) mg/dL Creatinine (0.66-1.25) mg/dL Glucose (74-99) mg/dL POC Glucose (mg/dL) 219 H (70-110) mg/dL ALT (4-49) U/L Total Protein (6.3-8.2) g/dL Albumin (3.5-5.0) g/dL Microbiology - Last 24 Hours (Table) 03/26/25 15:53 Acid Fast Bacilli Smear - Preliminary Bronchoalviolar Lavage - Left Acid Fast Bacilli Culture - Preliminary 05/01/25 12:15 Gram Stain - Final Sputum Sputum Culture - Final Staphylococcus aureus Klebsiella Pneum subsp ozaenae
--- NOTE | 2025-05-04 16:11 | P.PN ---
Subjective Progress Note Date: 05/04/25 This is a 64-year-old male patient was undergone a C 7 T1 discectomy, done posteriorly with wide laminectomy and foraminotomy and partial facetectomy. The patient was experiencing cervical myelopathy with severe bilateral lower extremity weakness and T8 paresthesia. The patient has previous history of cervical spine fusion C2-C7. The patient was found to have a large herniated disc C7-T1 with severe spinal cord stenosis and based on that the patient was taken to the operating room and underwent a C7-T1 discectomy on 03/21/2025. The patient has become progressively more hypoxic. The patient developed lower lobe pneumonia left more than right. 04/09/2025 the patient is being seen for a follow-up in the intensive care unit. This morning, the patient is awake and alert. He has gotten progressively more debilitated over the past 10 days. He is managed in the intensive care unit for his acute hypoxic respiratory failure and left lower lobe pneumonia. He has required 2 bronchoscopies and the bronchoscopy is done on 03/26/2025 showed Serratia marcescens and the patient's nasal screen was positive for MSSA. The most recent chest x-ray from this morning shows a persistent consolidation in the left lung base and some atelectatic change in lung base bilaterally. No significant interval change compared to earlier chest x-rays. The patient remains on Airvo and earlier this morning the patient was on 6 L with an FiO2 of 65%. IV fluids are currently at KVO. The patient remains on IV cefazolin. Samuels catheter is in place. He has developed increased edema in his right upper extremity. Hemodynamically stable. The white cell count is at 10.2 with a hemoglobin 12.1 and a platelet count of 85. BUN is 19 with a creatinine of 0.37. Remains on IV Solu-Medrol. Spine surgery is on the case. He continues to have difficulties with lower extremity paralysis. He does have some numbness which is improved around his abdomen towards the groin. He does not have any sensation in his lower extremities except for some increased sensation in his right greater toe and no motor function in his lower extremities bilaterally. He is wearing compression stockings and boots. He does have some weakness also in his upper extremities. The patient is postop day #17. He is awake and alert and communicating. He is off the BiPAP. He remains on NovoLog 10 units 3 times daily with meals. Rest of the medications are essentially unchanged. 05/07/2025, patient is being seen for a follow-up. Oxygenation is stable for now. The patient was taken off the Airvo yesterday and the patient was placed on 10 L of oxygen by nasal cannula. Earlier this morning, the patient showed adequate oxygenation and the patient was further weaned down to 8 L/min nasal cannula. Chest x-ray shows a stable left lower lobe consolidation. The patient remains on the same antibiotics and the patient remains IV cefazolin. Cough remains weak. IV fluids are currently at KVO. No fever or chills. He does juan ve some sensation in lower extremities bilaterally although this is minimal. Motor function is still absent. The white cell count 8.7 with a hemoglobin 11.7 and a platelet count of 90. BUN 17 with a creatinine 0.49 and sodium is 136. No other significant events overnight. Will considering discharging this patient to an LTAC facility. The patient is postop day #18. On 04/11/2025, the patient is being seen for a follow-up. The patient shows ongoing improvement in the oxygenation and the patient is currently on 40 of oxygen by nasal cannula. Overnight, the patient utilizing a BiPAP at a pressure of 14 over 8 cm of water regarding his obstructive sleep apnea. He is doing well. He has some sensation above the thighs. No motor function lower extremities bilaterally. Upper extremities remain weak. Cough remains weak. He is on Lantus insulin 50 units daily and NovoLog 10 units with meals and sliding scale coverage. He remains on prednisone 40 mg p.o. daily. He remains on Lovenox for DVT prophylaxis. Samuels catheter to be discontinued today. He is awake and alert and communicating. The white cell count is 8.6 with a hemoglobin 11.4 and a platelet count of 85. BUN 16 with a creatinine 0.4. Sodium level is 133 and the blood sugar is at 169. Patient is being considered for LTAC. Insurance authorization has not been obtained. He is postop day #19. 04/12/2025, the patient is found to be slightly hypotensive. Overnight, the patient was given a bolus of 500 cc. Blood pressure is currently soft with a systolic in the mid 80s. Urine output was also low. The patient will be given another bolus of 1 L and is asked to be placed on hold. He is currently on liters of oxygen by nasal cannula. No respiratory difficulties. Neurologically unchanged. The white cell count is at 8.6 with a hemoglobin 10.8 and a platelet count has dropped further down to 55. K is at 3.9. BUN 16 with a creatinine 0.3. No antibiotics at this point and the patient remains on prednisone 40 mg p.o. daily. The patient is postop day #20. Tolerating diet. No issues with swallowing. 04/13/2025, the patient is being seen for a follow-up. The patient is calm and comfortable. Blood pressure remains soft yet stable. The patient was taken off the lisinopril. Fluid balance is +30 cc over the past 24 and the patient remains on 3 L of oxygen by nasal cannula. Afebrile. Awake and alert and communicating. Repeat chest x-ray was done this morning and it shows no lung volumes left greater than right base with small bilateral pleural effusion. No significant changes otherwise compared to yesterday. Tolerating diet. Motor function is unchanged lower extremity and the patient has no motor function in his legs bilaterally. Sensation is slightly present above the knees in the th ighs bilaterally. Motor function upper extremities 4 out of 5. The white Of 9.8 with a Heme of 10.4 and the Platelet Count of 55. BUN Is 18 with a Creatinine of 0.28 and a Sodium of 132. Glucose at 149. Patient Remains on Lovenox 40 Mg Subcu for DVT Prophylaxis. Remains on Lantus 50 Units Daily and NovoLog Sliding Scale Coverage. Rest of the Medications Are Essentially Unchanged. Remains on Prednisone 40 Mg P.O. Daily. No Issues with Pain. Continues to Wear a Hard Neck Collar. The patient is postop day #21. On 04/14/2025, the patient is being seen for a follow-up. Condition is stable and he remains on 3 L of oxygen by nasal cannula. Hemodynamically stable. Blood pressure is stable. The patient on Lantus insulin 15 yesterday. The patient on prednisone 40 mg p.o. daily. Blood work from today still pending. No new complaints otherwise for now. Tolerating diet. Having bowel movement. Using incentive spirometer. Was transitioned on the chair. Neurologically unchanged and the patient has no motor function lower extremities bilaterally. He is postop day #22. On 04/15/2025, the patient is being seen for a follow-up. Sitting up in a chair and the patient is calm and comfortable. No motor function lower extremities bilaterally in the patient's neurologic status essentially unchanged. The patient remains on oxygen and the patient is currently on 4 L of O2 nasal ca nnula with a pulse ox of 91%. Using incentive spirometer. No respiratory distress. Tolerating diet. The white cell count is 4.9 with a hemoglobin 10.3 and a platelet count of 62. BUN 17 with a creatinine of 0.4. Potassium level is at 3.0 that needs to be replaced. Platelet count is improved compared to yesterday. No other new complaints otherwise for now. April 16, 2025 in follow-up on the selective care unit. He is currently sitting up in bed. Awake and alert in no acute distress. He is maintaining O2 saturation in the low 90s on 4 L/min per nasal cannula. He has been afebrile. Hemodynamically stable. White count 3.8. Hemoglobin 9.8. Platelets 59,000. Sodium 135. Potassium 3.2. Bicarb 30. BUN 15. Creatinine 0.33. Glucose 111. He remains on DuoNeb inhalations. Lovenox for DVT prophylaxis. Remains on a prednisone taper. Awaiting a bed at [facility]. Insurance authorization remains an issue. The patient is seen today April 17, 2025 in follow-up on the selective care unit. He is sitting up in bed. Awake and alert. He is having increasing shortness of breath today with increasing dyspnea. Chest x-ray is again starting to show opacity in the left lung. He continues with a very weak cough. Unable to clear his own secretions. He has been working with respiratory therapy including with the incentive spirometer and flutter valve. He is now requiring 15 L high flow nasal cannula. He has been intolerant to BiPAP. Sodium 135. Potassium 3.8. Bicarb 32. BUN 16. Creatinine 0.40. Glucose 92. He remains on DuoNeb inhalations. Lovenox for DVT prophylaxis. Continued on Mucinex. The patient is seen today April 23, 2025 in follow-up in the intensive care unit. He had again developed respiratory distress while up on the regular medical floor and a near complete whiteout of the left lung. He was placed on BiPAP and showed improvement. Today he is sitting up in a chair. Awake and alert in no acute distress. There is still some left lower lung collapse on the chest x- ray. He remains on Airvo high flow oxygen at 55 L and 75% FiO2 during the day. He is utilizing BiPAP at night 12/8 and 60% FiO2. He remains on Zosyn. He has normal saline at KVO. He attempts to work with the incentive spirometer and the flutter valve but his voice remains weak. His cough remains very weak. He does have paraplegia. He does not even feel subcu injections into the lower abdomen. He remains on DuoNeb inhalations. Receiving chest physiotherapy. Lovenox for DVT prophylaxis. Protonix for GI prophylaxis. The patient is seen today April 24, 2025 in follow-up in the intensive care unit. He is currently sitting up in bed. Awake and alert in no acute distress. He continues to have minimal tolerance for any activity without having shortness of breath and desaturations. His chest x-ray is again showing worsening left lower lobe collapse. He refused to wear the BiPAP last evening. He remains quite anxious about it. He remains on Airvo high flow nasal cannula at 60 L and 80% FiO2. Initial bronch wash cultures from March 26, 2025 was positive for Serratia marcescens. He is currently on Zosyn. White count 8.3. Hemoglobin 10.7. Platelets 339. Sodium 136. Potassium 3.6. Bicarb 29. BUN 13. Creatinine 0 .32. Glucose 127. He remains on DuoNeb inhalations, Mucinex, prednisone. Lovenox for DVT prophylaxis. Protonix for GI prophylaxis. The patient is seen today April 26 2025 in follow-up in the intensive care unit. He is awake and alert. Still requiring BiPAP support 16/8 and 50% FiO2 to maintain O2 saturations in the 90s. He has normal saline at 75 mL/h. White count 8.7. Hemoglobin 10.3. Platelets 329. Sodium 135. Potassium 3.6. Bicarb 32. BUN 13. Creatinine 0.31. Glucose 121. Chest x-ray continues to show a left lower lobe infiltrate. He remains on DuoNeb inhalations. Currently sedated on Precedex 0.3 mcg/kg/h. Plan is for tracheostomy and PEG tube placement today. The patient is seen today April 27, 2025 in follow-up in the intensive care unit. He is currently resting in bed. Sedated on propofol at 25 mcg/kg/min. Normal saline at 75 mL/h. He is on the ventilator currently at a 6 control mode at a rate of 20, tidal volume 400, FiO2 50% and a PEEP of 8. Blood gases revealed a PO2 of 83, PCO2 of 46 and a pH of 7.45. White count 11.5. Hemoglobin 10.1. Platelets 324. Sodium 138. Potassium 2.9. Bicarb 31. BUN 11. Creatinine 0.29. Glucose 103. He remains on DuoNeb inhalations, Pulmicort and Perforomist inhalations, prednisone. Being nourished with vital HP at 10 mL/h with a goal of 40. Tracheostomy and PEG tubes placed yesterday. The patient is seen today April 28, 2025 in follow-up in the intensive care unit. He remains on mechanical ventilator via tracheostomy tube and assist-control mode at a rate of 20, tidal volume 400, FiO2 40% and a PEEP of 8. Morning blood gases revealed a PO2 of 73, BTX125 and a pH of 7.46. He is sedated lightly on propofol at 10 mcg/kg/min. Normal saline at 75 mL/h. Being nourished via PEG tube with vital HP at 30 mL/h with a goal of 40 mL/h. Chest x-ray reveals retrocardiac opacity and small bilateral pleural effusions. White count 12.2. Hemoglobin 10.0. Platelets 289. Sodium 135. Potassium 3.0. Bicarb 28. BUN 7. Creatinine 0.21. Glucose 101. He remains on DuoNeb inhalations, Pulmicort and Perforomist inhalations, prednisone taper. Lovenox for DVT prophylaxis. Protonix for GI prophylaxis. The patient is seen today April 29, 2025 in follow-up in the intensive care unit. He remains on mechanical ventilator currently in assist-control mode at a rate of 20, tidal volume 400, FiO2 50% and a PEEP of 8. Morning blood gases reveal a PO2 of 84, PCO2 of 44 and a pH of 7.50. He is sedated on propofol 25 mcg/kg/min. Receiving normal saline at 75 mL/h. He is being nourished with vital HP at 40 mL/h. White count 12.6. Hemoglobin 9.0. Platelets 335. Sodium 137. Potassium 3.2. Bicarb 32. BUN 7. Creatinine 0.18. Glucose 141. Chest x-ray reveals resolution of the previous small right pleural effusion. Stable left pleural effusion. No cardiomegaly or pulmonary vascular congestion. No airspace consolidation. 04/30/2025, the patient is being seen for a follow-up. The patient remains on a mechanical ventilator. He is awake and arousable while being on propofol running at 50 mcg/kg/min. He is on assist-control mode rate of 20, tidal volume of 400, FiO2 60% with a PEEP of 8. His blood gases showing a pH of 7.46 with [id number] and PO2 of 67. The patient has a lumbar 7.[address] in place and the patient also has a PEG tube with vital high-protein running at 40 cc an hour. No active diarrhea and his diarrhea subsided and the fecal management system will be removed. Minimal respiratory secretions. Chest x-ray from today showing ongoing infiltrates/consolidation lung bases and small amount of fluid and atelectasis in the lung bases. Noted the patient had an extensive left lower lobe pneumonia that was attributed to Serratia marcescens and the patient was treated with broad-spectrum antibiotics and the patient was taken off antibiotics and currently is on no antibiotics. He remains on 20 mg of prednisone. Neurologically unchanged the patient has no motor function lower extremities bilaterally. He is still on Lantus insulin 5 units daily and a sliding scale coverage. He is arousable and communicating. He remains on Lovenox 40 mg subcu on a daily basis. On 05/01/2025, the patient is being seen for a follow-up. The patient remains on a mechanical ventilator. The patient is off propofol for now. Calm and comfortable. Patient has a tracheostomy tube and the patient is having copious amount of respiratory secretions, purulent around the tracheostomy stoma. Sputum sample will be sent again. Meanwhile, the patient is having fever with a Tmax of 100.4. The patient will also start on broad-spectrum antibiotics. He is currently on assist-control mode at rate of 20, tidal volume of 400, FiO2 of 60% with a PEEP of 8. Blood gas showed a pH of 7.49 with a [id number] and PO2 of 71. The patient's chest x-ray from today is showing volume loss and small to moderate-sized bilateral pleural effusion/atelectasis in the lung bases and similar findings were also noted on the CAT scan of the chest that was done on 05/01/2025. The patient was started on broad-spectrum antibiotics. The patient will be given a combination of cefepime and vancomycin. The patient had a net fluid balance of -2.5 L over the past 24 hours. Another dose of Lasix will be given today. Rest of the blood work shows a white cell count of 20 and a white cell count on the right with a hemoglobin 9.1 and a platelet count of 293. Sodium is at 137, potassium is 3.9, BUN 11 with a creatinine of 0.23. On 05/02/2025, the patient is being seen for a follow-up. Awake and arousable and communicating. Able to move his upper extremities. No motor function lower extremities bilaterally. Neurologically unchanged. No fever for today. His white cell count is improved compared to yesterday and the white cell count is currently down to 1 17.5 and the patient is afebrile. Sputum samples were collected yesterday and there is presumptive Staph aureus and Klebsiella on those cultures. This was confirmed on 2 separate samples from 04/30/2025 and 05/01/2025. The patient is already on cefepime and vancomycin pending the cultures to be finalized and pending further sensitivities. Meanwhile, a repeat chest x-ray was done and the chest x-ray from today showing bilateral lower lobe consolidation and effusions. There is a small left-sided pleural effusion and right basilar has some increased in interval. Overall respiratory secretions are improved compared to yesterday and the patient is requiring less suctioning. He has a negative fluid balance of 1.8 L while receiving IV Lasix. He has a fecal management system in the stool output has also improved. The white cell count at 17 with a hemoglobin 7.7 and platelet count of 247. BUN is 70 with a creatinine of 0.2. Sodium is at 134 and potassium level is at 4.4. No other significant events otherwise. On 05/03/2025, the patient is being seen for a follow-up. Patient is having copious amount of respiratory secretions. Based on that, I performed a bronchoscopy at the bedside and a total of 30 cc of purulent respiratory secretions were suctioned out from the patient's airways more so from the right lower lobe. Those were sent for cultures. Noted earlier sputum sample that was collected on this patient from 04/30/2025 and 05/01/2025 showed MSSA and Klebsiella pneumoniae. For now, the patient is covered with IV cefepime. Patient is also on vancomycin. Awaiting repeat cultures from the bronchoscopy and the bronchial lavage. Meanwhile, the patient remains on the mechanical osman tilator. The patient on assist-control at rate of 20, tidal volume of 400, FiO2 60% with a PEEP of 10. The chest x-ray done from today showed bilateral patchy pulmonary infiltrates more so on the right lung base and possibly some trace pleural effusions. Tracheostomy tube is in a good location. Blood gas showed a pH of 7.44 with a [id number] PO2 of 131. WBC close at 1 18.9 with a hemoglobin of 8.4 and a platelet count of 227. Sodium is at 135, BUN is 20 with a creatinine of 0.22. Potassium levels are 3.4. Remains on vital HP at rate of 40 cc an hour. Liquidy output through the fecal management system in the patient's stool for C. difficile has been negative. The patient remains on DuoNeb nebulizer treatments [id number]. The patient remains on steroids and the prednisone will be dropped down to 10 mg p.o. daily. Abdomen is slightly distended and tympanic. Patient is on Lantus insulin 5 units daily and insulin Scale insulin coverage. No other significant events otherwise for now. He is afebrile. Hemodynamically stable. His net fluid balance has been in the order of -1.8 L over the past 24 hours and the patient received diuretics. 05/04/2025, the patient is being seen for a follow-up. Awake and alert on no sedatives. Neurologic functions are essentially unchanged and the patient remains paraplegic. No motor function lower extremities and the patient continues to have a weak cough. Remains on assist-control mode of mechanical ventilation at rate of 20, tidal volume of 400, FiO2 of 60% and a PEEP of 10. Blood gases showed pH of 7.51 with a PCO2 of 51 and PO2 of 190. Bronchoscopy and bronchial lavage of the right lower lobe was done. Copious amount of respiratory secretions that were purulent was aspirated on bronchoscopy on 05/03/2025. The patient has Staph aureus and Klebsiella and the patient remains on a combination of IV cefepime and vancomycin pending further culture results from the bronchoalveolar lavage. Meanwhile, follow-up chest x-ray was done today and the patient's chest x-ray shows similar and slightly improving medial right basilar airspace disease. The white cell count is 16.7, hemoglobin 8.5 and a platelet count of 217. BUN 24 with a creatinine of 0.15. Sodium levels at 134 and potassium levels at 3.4. LFTs are normal. The patient remains on vital HP at rate of 50 cc an hour. Abdomen is slightly distended. Patient has positive bowel sounds and the patient is stooling. Remains on bronchodilators. Remains on prednisone 10 mg p.o. daily. Remains on Lantus insulin 5 units daily and sliding scale coverage. Objective - Vital Signs Vital signs: Vital Signs Temp 98.9 F 05/04/25 04:00 Pulse 89 05/04/25 07:05 Resp 20 05/04/25 07:00 BP 88/58 05/04/25 07:00 Pulse Ox 98 05/04/25 07:00 FiO2 60 05/04/25 09:36 Intake & Output 05/03/25 05/04/25 05/04/25 18:59 06:59 18:59 Intake Total 1450 1570 Output Total 795 1245 Balance 655 325 Weight 96.7 kg Intake: IV 820 730 0.9@10 120 130 Cefepime 2 gm In Sodium 100 100 Chloride 0.9% 100 ml @ 25 mls/hr IVPB Q8H [facility] Rx#: [id number] Magnesium Sulfate-D5w Pmx 100 1 gm In Dextrose/Water 1 100ml.bag @ 100 mls/hr IVPB ONCE ONE Rx#: [id number] Vancomycin 2,000 mg In 500 500 Sodium Chloride 0.9% 500 ml 500 ml @ 167 mls/hr IVPB Q12H [facility] Rx#: [id number] Intake, IV Titration 100 Amount Magnesium Sulfate-D5w Pmx 100 1 gm In Dextrose/Water 1 100ml.bag @ 100 mls/hr IVPB ONCE ONE Rx#: [id number] Tube Feeding 540 650 Other 90 90 Output: Urine 795 1245 Other: Voiding Method Indwelling Catheter Indwelling Catheter ABP, PAP, CO, CI - Last Documented Arterial Blood Pressure 112/51 - Exam General: nontoxic, no distress, appears at stated age, patient is currently on a mechanical ventilator and the patient has a 7.[address] tube in place. Derm: warm, dry, intact, dressing noted at the back of neck with no signs of drainage or bleeding. Head: atraumatic, normocephalic, symmetric Eyes: EOMI, anicteric sclera Mouth: no lip lesion, mucus membranes moist Cardiovascular: S1 S2 reg, no murmur, rubs, or gallops Lungs: Diminished breath in the lung bases bilaterally. No significant wheezing. Abdominal: soft, a bowel sounds are present and the patient has a PEG tube in place. Extremities: no gross muscle atrophy, no edema, no contractures, patient is unable to move bilateral lower extremity, increased edema in the right upper extremity. Neuro: Alert, Oriented, CNII-XII grossly intact, gait cannot be assessed as the patient has absent motor function lower extremities bilaterally patient has bilateral foot drop. Reflexes are diminished. No Babinski. No clonus. - Labs CBC & Chem 7: 05/04/25 05:10 05/04/25 05:10 Labs: Abnormal Lab Results - Last 24 Hours (Table) 05/03/25 05/03/25 05/03/25 Range/Units 11:37 12:21 18:01 WBC (4.50-10.00) 10*3/uL RBC (4.40-5.60) 10*6/uL Hgb (13.0-17.0) g/dL Hct (39.6-50.0) % MCHC (32.0-37.0) g/dL Immature Gran # (0.00-0.04) 10*3/uL Neutrophils # (Manual) (1.3-7.7) k/uL Metamyelocytes # (Man) (0) k/uL Myelocytes # (Manual) (0) k/uL ABG pH (7.35-7.45) ABG pCO2 54 H (35-45) mmHg ABG pO2 131 H (83-108) mmHg ABG HCO3 36 H (21-25) mmol/L ABG Total CO2 38 H (19-24) mmol/L ABG O2 Saturation 99.6 H (94-97) % Hemoglobin 9.3 L (13.0-17.5) gm/dL Sodium (137-145) mmol/L Potassium (3.5-5.1) mmol/L Chloride (98-107) mmol/L Carbon Dioxide (22-30) mmol/L BUN (9-20) mg/dL Creatinine (0.66-1.25) mg/dL Glucose (74-99) mg/dL POC Glucose (mg/dL) 235 H 221 H (70-110) mg/dL ALT (4-49) U/L Total Protein (6.3-8.2) g/dL Albumin (3.5-5.0) g/dL 05/03/25 05/04/25 05/04/25 Range/Units 23:15 05:10 05:10 WBC 16.79 H (4.50-10.00) 10*3/uL RBC 2.86 L (4.40-5.60) 10*6/uL Hgb 8.5 L (13.0-17.0) g/dL Hct 26.8 L (39.6-50.0) % MCHC 31.7 L (32.0-37.0) g/dL Immature Gran # 1.54 H (0.00-0.04) 10*3/uL Neutrophils # (Manual) 14.27 H (1.3-7.7) k/uL Metamyelocytes # (Man) 0.84 H (0) k/uL Myelocytes # (Manual) 0.50 H (0) k/uL ABG pH (7.35-7.45) ABG pCO2 (35-45) mmHg ABG pO2 (83-108) mmHg ABG HCO3 (21-25) mmol/L ABG Total CO2 (19-24) mmol/L ABG O2 Saturation (94-97) % Hemoglobin (13.0-17.5) gm/dL Sodium 134 L (137-145) mmol/L Potassium 3.4 L (3.5-5.1) mmol/L Chloride 93 L (98-107) mmol/L Carbon Dioxide 37 H (22-30) mmol/L BUN 24 H (9-20) mg/dL Creatinine <0.15 L (0.66-1.25) mg/dL Glucose 195 H (74-99) mg/dL POC Glucose (mg/dL) 196 H (70-110) mg/dL ALT 94 H (4-49) U/L Total Protein 4.9 L (6.3-8.2) g/dL Albumin 2.4 L (3.5-5.0) g/dL 05/04/25 05/04/25 Range/Units 05:44 06:13 WBC (4.50-10.00) 10*3/uL RBC (4.40-5.60) 10*6/uL Hgb (13.0-17.0) g/dL Hct (39.6-50.0) % MCHC (32.0-37.0) g/dL Immature Gran # (0.00-0.04) 10*3/uL Neutrophils # (Manual) (1.3-7.7) k/uL Metamyelocytes # (Man) (0) k/uL Myelocytes # (Manual) (0) k/uL ABG pH 7.51 H (7.35-7.45) ABG pCO2 51 H (35-45) mmHg ABG pO2 119 H (83-108) mmHg ABG HCO3 40 H* (21-25) mmol/L ABG Total CO2 41 H (19-24) mmol/L ABG O2 Saturation 99.3 H (94-97) % Hemoglobin 8.7 L (13.0-17.5) gm/dL Sodium (137-145) mmol/L Potassium (3.5-5.1) mmol/L Chloride (98-107) mmol/L Carbon Dioxide (22-30) mmol/L BUN (9-20) mg/dL Creatinine (0.66-1.25) mg/dL Glucose (74-99) mg/dL POC Glucose (mg/dL) 197 H (70-110) mg/dL ALT (4-49) U/L Total Protein (6.3-8.2) g/dL Albumin (3.5-5.0) g/dL Microbiology - Last 24 Hours (Table) 03/26/25 15:53 Acid Fast Bacilli Smear - Preliminary Bronchoalviolar Lavage - Left Acid Fast Bacilli Culture - Preliminary 05/01/25 12:15 Gram Stain - Final Sputum Sputum Culture - Final Staphylococcus aureus Klebsiella Pneum subsp ozaenae 04/30/25 20:20 Gram Stain - Final Sputum Sputum Culture - Final Staphylococcus aureus Klebsiella pneumoniae Assessment and Plan Plan: Acute hypoxic respiratory failure, multifactorial. The patient has developed bilateral pneumonia. The patient had a follow-up CAT scan of the chest done on 05/01/2025 and the patient was found to have consolidation/atelectasis along with small bibasilar pleural effusions. Sputum sample is positive for presumptive Staph aureus and Klebsiella pneumonia and the patient is currently on a combination of cefepime and vancomycin. Repeat bronchoscopy was done on 05/03/2025 and copious amount of purulent respiratory secretions were aspirated specially from the right lower lobe. Awaiting final cultures and sensitivities. Meanwhile, the patient will be kept on same antibiotic coverage. The patient continues to have episodes of oxygen desaturation probably related to mucous plugging as the patient has copious respiratory secretions. Chest x-ray on 05/04/2025 showing some improvement in the right lower lobe medial basilar airspace disease. Fever, temperature is being monitored, currently afebrile Leukocytosis, improved Purulent secretions around the tracheostomy stoma, with positive sputum cultures, and respiratory secretion have improved compared to yesterday. Chest x-ray continues to show lower lobe consolidation/atelectasis. Chronic respiratory insufficiency due to prolonged hospitalization, recurrent p neumonia and a very weak cough mechanism following a spine surgery T8 spinal cord injury. The patient has severe spinal canal stenosis at the level of C7/T1 with motor weakness in the lower extremities in addition to myelopathy. The patient is post C7/T1 discectomy with decompression and fusion and the patient also had extension of a previous C2/7 fusion to T3. Thrombocytopenia, recovered Abdominal distention/ileus, recovered, and the patient has a PEG tube and the patient is receiving enteral feeding for history of support Obstructive sleep apnea maintain CPAP therapy on outpatient basis Diabetes mellitus type 2, with steroid-induced hyperglycemia, currently on Lantus 5 units daily and sliding scale coverage Hypotension, rule out septic versus neurogenic hypotension post spine surgery, recovered Hyperlipidemia Bilateral lower extremity weakness, ongoing motor weakness in the lower extremities bilaterally with absent motor function at this point with bilateral foot drop. Patient's sensations in the lower limbs have improved, but now patient is completely paraplegic. T8 spinal cord injury with motor paralysis lower extremities bilaterally with absent sensation. He does have some feelings in his lower abdomen towards the groin. History of prior cervical fusion C3-C7 History of severe L5-S1 neuroforaminal stenosis Plan Continue ventilator support, no vent changes for today, will try to attempt to wean down FiO2 as tolerated to maintain saturation above 90%. PEEP will be kept at 10. noncontrast CAT scan of the chest was noted and is consistent with bilateral pleural effusion and atelectatic changes lung base bilaterally. Pneumonia is highly likely as the patient has Klebsiella and Staph aureus/MSSA in the sputum samples. Bronchoscopy was done on 05/03/2025 with therapeutic airway suctioning, awaiting final cultures from the bronchoalveolar lavage Monitor fever pattern Monitor white cell count, remains elevated Continue IV cefepime and vancomycin, pending further cultures Aggressive pulmonary toileting Continue DuoNeb nebulizer treatments [id number] Pain control and muscle relaxants IV fluids to KVO Continue vital HP for enteral feeding and nutritional support. Dilaudid for pain control in combination with [place] as needed Lantus insulin 5 units on a daily basis along with sliding scale coverage Prednisone 10 mg p.o. daily. Keep Samuels catheter in place Aggressive pulmonary toileting we will continue to follow make further recommendations based on his progress. This evaluation was done 35 minutes. Time with Patient: Greater than 30
[2025-05-04 18:06] LABS: Glucose,Whole Blood 250 mg/dL (70-110)
[2025-05-04] MEDS: guaiFENesin SYRUP 100MG/5ML 200 MG/10 ML CUP PO SCH (19:55)
--- NOTE | 2025-05-04 20:04 | P.PCN ---
Date of Procedure: 05/04/25 Operative Findings: Preoperative Diagnosis: Right lower lobe pneumonia Postoperative Diagnosis: Right lower lobe pneumonia and copious amount of purulent respiratory secretions accumulated within the airways, post therapeutic airway suctioning Procedure(s) Performed: Flexible bronchoscopy Anesthesia: MAC Surgeon: Netta Lala Estimated Blood Loss (ml): 0 Pathology: other Condition: stable Disposition: floor Operative Findings: The procedure was done in the intensive care unit, the patient was intubated on the mechanical ventilator and the patient tracheostomy tube in place. A flexible bronchoscopy was done. The bronchoscope was easily passed through the tracheostomy tube and was advanced into the mid and the lower trachea.. Immediately, copious amount of purulent respiratory secretions were encountered throughout the patient's airway most abundant in the right lower lobe. Therapeutic airway suctioning was done and a total of 15 cc of purulent respiratory secretions were aspirated and suctioned out without any major difficulties. Airway inspection was completed. Underlying bronchial mucosa was i normal nevertheless, the airways were patent post therapeutic airway suctioning. Distal trachea, bilateral mainstem bronchi, right upper lobe bronchus, bronchus intermedius, right middle lobe and right lower bronchus and the various 10 segments on the right in addition to the left mainstem bronchus, left upper lobe bronchus and left lower lobe bronchus and the various 8 segments on the left were all inspected. No endobronchial tumors or lesions. At the completion of the procedure, there was adequate airway patency and the patient's secretions were suctioned out. Following that the bronchoscope was inserted to the left nostril. It was gradually advanced through the posterior pharynx and later on to the larynx. Epiglottis vallecula and the vocal cords were within normal limits. Vocal cords function and mobility was within normal limits. Bronchoscope with was passed to the vocal cords and the tracheostomy tube was identified in the subglottic trachea. There was some secretions pulling above the tracheostomy tube and those were suctioned out without any major difficulties.. Procedure was terminated and the bronchoscope was removed.
[2025-05-04 23:43] LABS: Glucose,Whole Blood 197 mg/dL (70-110)
[2025-05-05 05:50] LABS: ABG HCO3 39 mmol/L (21-25); ABG PCO2 53 mmHg (35-45); ABG PH 7.47 (7.35-7.45); ABG PO2 119 mmHg (83-108); ABG TCO2 41 mmol/L (19-24); Allen Test Performed? Yes
[2025-05-05 05:56] LABS: HCT 27.4 % (39.6-50.0); HGB 8.4 g/dL (13.0-17.0); MCH 28.8 pg (27.0-32.0); MCHC 30.7 g/dL (32.0-37.0); MCV 93.8 fL (80.0-97.0); Platelet Count 205 10*3/uL (140-440); RBC 2.92 10*6/uL (4.40-5.60); RDW 14.4 % (11.5-14.5); WBC 17.62 10*3/uL (4.50-10.00)
[2025-05-05 06:02] LABS: Glucose,Whole Blood 179 mg/dL (70-110)
[2025-05-05 06:13] LABS: ALT 88 U/L (4-49); AST 42 U/L (17-59); African American GFR (CKD) >90 (>60 ml/min/1.73 sqM); Albumin 2.4 g/dL (3.5-5.0); Alkaline Phosphatase 60 U/L (38-126); Anion Gap 0 mmol/L; Blood Urea Nitrogen 20 mg/dL (9-20); Calcium 8.4 mg/dL (8.4-10.2); Carbon Dioxide 40 mmol/L (22-30); Chloride 96 mmol/L (98-107); Glucose 191 mg/dL (74-99); Non-African American GFR(CKD) >90 (>60 ml/min/1.73 sqM); Potassium 3.9 mmol/L (3.5-5.1); Sodium 136 mmol/L (137-145); Total Protein 4.9 g/dL (6.3-8.2)
--- NOTE | 2025-05-05 07:29 | XR ---
EXAMINATION TYPE: XR chest 1V portable DATE OF EXAM: 05/05/2025 4:55 AM COMPARISON: Chest radiograph from one day prior. CLINICAL INDICATION: Male, 65 years old with history of pna; TECHNIQUE: XR chest 1V portable Frontal view of the chest. FINDINGS: Lungs/Pleura: Bibasilar atelectasis. No evidence for pneumothorax, pleural effusion or focal consolid ation. Pulmonary vascularity: Unremarkable. Heart/mediastinum: Cardiomediastinal silhouette is unremarkable. Musculoskeletal: No acute osseous pathology. There is fixation hardware in the lower cervical spine. Other findings: None Lines/Tubes: Tracheostomy cannula tip projecting over the trachea. Right-sided PICC line with distal tip at the cavoatrial junction. IMPRESSION: 1. No acute cardiopulmonary disease/process. 2. Bibasilar atelectasis. [facility], , 05/05/2025 7:27 AM
[2025-05-05 07:50] LABS: Eosinophils # (M) 0.18 k/uL (0-0.7); Lymphocytes # (M) 1.76 k/uL (1.0-4.8); Metamyelocytes # (M) 0.18 k/uL (0); Monocytes # (M) 0.88 k/uL (0-1.0); Myelocytes # (M) 0.35 k/uL (0); Neutrophils # (M) 14.62 k/uL (1.3-7.7); Neutrophils % (M) 82 %; Total Cells Counted 200
[2025-05-05 07:51] LABS: RBC Morphology Normal
[2025-05-05] MEDS: POTASSIUM BICARBONATE/CIT AC 20 MEQ TABLET.EFF NG-TUBE SCH (09:02)
[2025-05-05] MEDS: MAGNESIUM SULFATE-D5W PMX 1 GM in DEXTROSE/WATER 1 100ML.BAG IVPB ONE (09:03)
[2025-05-05 12:14] LABS: Glucose,Whole Blood 228 mg/dL (70-110)
--- NOTE | 2025-05-05 13:52 | P.PN ---
Subjective Progress Note Date: 05/05/25 Hospital Course: Patient is a pleasant 64-year-old male with a past medical history of hypertension, hyperlipidemia, type II [id number] diabetes mellitus, involuntary limb muscle fasciculations/movements on Mirapex and last seen neurologist (Dr. Wheeler) approximately 2 months ago, migraine headaches, depression. Presented to the emergency department with a chief complaint of sudden onset numbness extending from periumbilical region downwards throughout groin and bilateral lower extremities followed by weakness of bilateral lower extremities. Patient states he was moving some plants at home when he had sudden onset of numbness around his lower abdomen circling around him like a belt that quickly radiated into his groin and into bilateral lower extremities accompanied by weakness of bilateral lower extremities which resulted in his legs giving out from beneath him causing him to fall to the ground. Patient denied having any dizziness or lightheadedness, headache, neck or back pain, or experiencing any pain in his abdomen, groin, or lower extremities. He denies hitting his head during the fall and denies having any loss of consciousness. But reports due to the sudden onset numbness and weakness he was unable to stand back up and had to have his call EMS for transfer to the hospital. Upon arrival to our facility, patient underwent evaluation in the emergency department. Vital signs upon arrival show blood pressure 165/97, heart rate 88, respiratory rate 18, temp 98.8 F, and SpO2 of 97% on room air. CT lumbar spine CT abdomen and pelvis was also negative for acute intra-abdominal process completed showing no evidence for spinal fracture, no evidence for significant spinal canal stenosis revealing severe right L5-S1 neuroforaminal stenosis and moderate bilateral L4-L5 neuroforaminal stenosis, revealing a right middle lobe pulmonary nodule 8 mm, prostamegaly, colonic diverticulosis, and bilateral adrenal myolipoma's. Labs completed and reviewed. CBC unremarkable. BMP showing hyperglycemia with blood glucose of 146. Liver profile normal findings. Urinalysis positive for glucose and ketones but negative for infection. Patient was admitted under services with consultation to neurology and orthospine surgery. MRI lumbar spine was completed showing no definitive evidence of disc herniation or significant spinal canal stenosis revealing minimal disc degeneration with associated osteoarthritic changes. Patient underwent extensive cervical spinal surgery on the evening of 03/20/2025 through 03/21/2025. Subjective: No acute events overnight. Patient is status post bronchoscopy again, also has infected appearing sacral decubitus wound. Gen: In NAD, non-toxic HEENT: normocephalic, atraumatic, hearing acuity is intant, mucous membranes moist CVS: perfusing all extremities well, no pitting edema, Respiratory: symmetric chest expansion, no accessory muscle use, tracheostomy with ventilator dependence GI: soft, NTTP, ND, : no suprapubic tenderness, no CVA tenderness MSK/Derm: no rashes, cyanosis, sacral decubitus wound, foul smelling, Neuro: CN II-XII intact, 0-5 lower extremity weakness bilaterally, 4+ out of 5 upper extremity motor Assessment and Plan: #. Acute hypoxemic respiratory failure secondary to severe atelectasis and mucous plugging status post bronchoscopy x 2 #. Healthcare acquired Pneumonia secondary to Serratia and Milagros #. Leukocytosis,resolved #. Persistent atelectasis - Patient remains in the ICU, vent dependent, status post trach and PEG -Continue cefepime, vancomycin; micro from sputum growing MSSA and Klebsiella Continue with steroid taper, prednisone 10 mg daily Continue DuoNebs 4 times daily and every 2 hours as needed Continue with Mucomyst, DuoNebs 4 times daily, every 2 hours as needed Encourage incentive spirometry Aggressive pulmonary toileting Monitor CBC #. Cervical myelopathy secondary to severe spinal canal stenosis involving C7-T1 #. Status post extensive cervical decompression with discectomy at C7-T1 and fusion with extension of fusion from C3-C7 with new extension down to T3 #. Severe right L5-S1 neuroforaminal stenosis #. Moderate bilateral L4-L5 neuroforaminal stenosis Orthopedic surgery following status post extensive cervical decompression with dissecting at C7-T1 and fusion with extension of fusion from C3-C7 with new extension down to T3 Continue Prednisone taper as above Completed course of IV cefazolin Continue neurochecks every 4 hours and as needed. Maintain fall precautions Continue Samuels catheter, patient is retaining Continue Unna boot bilaterally to prevent foot drop PT/OT Social work following with regards to disposition #. Type II [id number] diabetes mellitus Hyperglycemia likely secondary to high-dose steroids being administered at this time. Improving. -Lantus 5 units daily, sliding scale insulin #. normocytic anemia, slightly downtrending, continue to monitor #. Hypokalemia, resolved #. Hypomagnesemia, resolved #. Bilateral lower extremity edema, stable #. Thrombocytopenia, stable, resolved # Respiratory acidosis, resolved # Metabolic alkalosis, resolved Hypotension, resolved - Continue to hold antihypertensives Chronic: #. Hypertension #. Hyperlipidemia #. Obstructive sleep apnea #. BPH #. Restless leg syndrome #. Neuropathy DVT ppx: Lovenox Code status: Full code Anticipated discharge place: Pending clinical course Anticipated discharge time: Pending clinical course Objective - Vital Signs Vital signs: Vital Signs Temp 98.0 F 05/05/25 08:00 Pulse 100 05/05/25 12:00 Resp 22 05/05/25 11:00 BP 108/62 05/05/25 11:00 Pulse Ox 100 05/05/25 11:00 FiO2 50 05/05/25 11:53 Intake & Output 05/04/25 05/05/25 05/05/25 18:59 06:59 18:59 Intake Total 720 1430 395 Output Total 2485 3135 350 Balance -1765 -1705 45 Intake: IV 120 220 40 0.9@10 120 120 40 Cefepime 2 gm In Sodium 100 Chloride 0.9% 100 ml @ 25 mls/hr IVPB Q8H JUAN LUIS Rx#: [id number] Intake, IV Titration 500 125 Amount Vancomycin 2,250 mg In 500 125 Sodium Chloride 0.9% 500 ml 500 ml @ 167 mls/hr IVPB Q12H JUAN LUIS Rx#: [id number] Tube Feeding 600 650 200 Other 60 30 Output: Urine 585 1335 350 Stool 1900 1800 Other: Voiding Method Indwelling Catheter Indwelling Catheter ABP, PAP, CO, CI - Last Documented Arterial Blood Pressure 131/62 - Labs CBC & Chem 7: 05/05/25 05:20 05/05/25 05:20 Labs: Abnormal Lab Results - Last 24 Hours (Table) 05/04/25 05/04/25 05/05/25 Range/Units 18:04 23:42 05:20 WBC (4.50-10.00) 10*3/uL RBC (4.40-5.60) 10*6/uL Hgb (13.0-17.0) g/dL Hct (39.6-50.0) % MCHC (32.0-37.0) g/dL Immature Gran # (0.00-0.04) 10*3/uL Neutrophils # (Manual) (1.3-7.7) k/uL Metamyelocytes # (Man) (0) k/uL Myelocytes # (Manual) (0) k/uL ABG pH (7.35-7.45) ABG pCO2 (35-45) mmHg ABG pO2 (83-108) mmHg ABG HCO3 (21-25) mmol/L ABG Total CO2 (19-24) mmol/L ABG O2 Saturation (94-97) % Hemoglobin (13.0-17.5) gm/dL Sodium 136 L (137-145) mmol/L Chloride 96 L (98-107) mmol/L Carbon Dioxide 40 H (22-30) mmol/L Creatinine 0.20 L (0.66-1.25) mg/dL Glucose 191 H (74-99) mg/dL POC Glucose (mg/dL) 250 H 197 H (70-110) mg/dL ALT 88 H (4-49) U/L Total Protein 4.9 L (6.3-8.2) g/dL Albumin 2.4 L (3.5-5.0) g/dL 05/05/25 05/05/25 05/05/25 Range/Units 05:20 05:45 05:59 WBC 17.62 H (4.50-10.00) 10*3/uL RBC 2.92 L (4.40-5.60) 10*6/uL Hgb 8.4 L (13.0-17.0) g/dL Hct 27.4 L (39.6-50.0) % MCHC 30.7 L (32.0-37.0) g/dL Immature Gran # 1.60 H (0.00-0.04) 10*3/uL Neutrophils # (Manual) 14.62 H (1.3-7.7) k/uL Metamyelocytes # (Man) 0.18 H (0) k/uL Myelocytes # (Manual) 0.35 H (0) k/uL ABG pH 7.47 H (7.35-7.45) ABG pCO2 53 H (35-45) mmHg ABG pO2 119 H (83-108) mmHg ABG HCO3 39 H (21-25) mmol/L ABG Total CO2 41 H (19-24) mmol/L ABG O2 Saturation 99.2 H (94-97) % Hemoglobin 8.9 L (13.0-17.5) gm/dL Sodium (137-145) mmol/L Chloride (98-107) mmol/L Carbon Dioxide (22-30) mmol/L Creatinine (0.66-1.25) mg/dL Glucose (74-99) mg/dL POC Glucose (mg/dL) 179 H (70-110) mg/dL ALT (4-49) U/L Total Protein (6.3-8.2) g/dL Albumin (3.5-5.0) g/dL 05/05/25 Range/Units 12:13 WBC (4.50-10.00) 10*3/uL RBC (4.40-5.60) 10*6/uL Hgb (13.0-17.0) g/dL Hct (39.6-50.0) % MCHC (32.0-37.0) g/dL Immature Gran # (0.00-0.04) 10*3/uL Neutrophils # (Manual) (1.3-7.7) k/uL Metamyelocytes # (Man) (0) k/uL Myelocytes # (Manual) (0) k/uL ABG pH (7.35-7.45) ABG pCO2 (35-45) mmHg ABG pO2 (83-108) mmHg ABG HCO3 (21-25) mmol/L ABG Total CO2 (19-24) mmol/L ABG O2 Saturation (94-97) % Hemoglobin (13.0-17.5) gm/dL Sodium (137-145) mmol/L Chloride (98-107) mmol/L Carbon Dioxide (22-30) mmol/L Creatinine (0.66-1.25) mg/dL Glucose (74-99) mg/dL POC Glucose (mg/dL) 228 H (70-110) mg/dL ALT (4-49) U/L Total Protein (6.3-8.2) g/dL Albumin (3.5-5.0) g/dL Microbiology - Last 24 Hours (Table) 05/03/25 11:00 Gram Stain - Preliminary Bronchial Washings - Right
--- NOTE | 2025-05-05 15:26 | P.PN ---
Subjective Progress Note Date: 05/05/25 This is a 64-year-old male patient was undergone a C 7 T1 discectomy, done posteriorly with wide laminectomy and foraminotomy and partial facetectomy. The patient was experiencing cervical myelopathy with severe bilateral lower extremity weakness and T8 paresthesia. The patient has previous history of cervical spine fusion C2-C7. The patient was found to have a large herniated disc C7-T1 with severe spinal cord stenosis and based on that the patient was taken to the operating room and underwent a C7-T1 discectomy on 03/21/2025. The patient has become progressively more hypoxic. The patient developed lower lobe pneumonia left more than right. 04/09/2025 the patient is being seen for a follow-up in the intensive care unit. This morning, the patient is awake and alert. He has gotten progressively more debilitated over the past 10 days. He is managed in the intensive care unit for his acute hypoxic respiratory failure and left lower lobe pneumonia. He has required 2 bronchoscopies and the bronchoscopy is done on 03/26/2025 showed Serratia marcescens and the patient's nasal screen was positive for MSSA. The most recent chest x-ray from this morning shows a persistent consolidation in the left lung base and some atelectatic change in lung base bilaterally. No significant interval change compared to earlier chest x-rays. The patient remains on Airvo and earlier this morning the patient was on 6 L with an FiO2 of 65%. IV fluids are currently at KVO. The patient remains on IV cefazolin. Samuels catheter is in place. He has developed increased edema in his right upper extremity. Hemodynamically stable. The white cell count is at 10.2 with a hemoglobin 12.1 and a platelet count of 85. BUN is 19 with a creatinine of 0.37. Remains on IV Solu-Medrol. Spine surgery is on the case. He continues to have difficulties with lower extremity paralysis. He does have some numbness which is improved around his abdomen towards the groin. He does not have any sensation in his lower extremities except for some increased sensation in his right greater toe and no motor function in his lower extremities bilaterally. He is wearing compression stockings and boots. He does have some weakness also in his upper extremities. The patient is postop day #17. He is awake and alert and communicating. He is off the BiPAP. He remains on NovoLog 10 units 3 times daily with meals. Rest of the medications are essentially unchanged. 05/07/2025, patient is being seen for a follow-up. Oxygenation is stable for now. The patient was taken off the Airvo yesterday and the patient was placed on 10 L of oxygen by nasal cannula. Earlier this morning, the patient showed adequate oxygenation and the patient was further weaned down to 8 L/min nasal cannula. Chest x-ray shows a stable left lower lobe consolidation. The patient remains on the same antibiotics and the patient remains IV cefazolin. Cough remains weak. IV fluids are currently at KVO. No fever or chills. He does juan ve some sensation in lower extremities bilaterally although this is minimal. Motor function is still absent. The white cell count 8.7 with a hemoglobin 11.7 and a platelet count of 90. BUN 17 with a creatinine 0.49 and sodium is 136. No other significant events overnight. Will considering discharging this patient to an LTAC facility. The patient is postop day #18. On 04/11/2025, the patient is being seen for a follow-up. The patient shows ongoing improvement in the oxygenation and the patient is currently on 40 of oxygen by nasal cannula. Overnight, the patient utilizing a BiPAP at a pressure of 14 over 8 cm of water regarding his obstructive sleep apnea. He is doing well. He has some sensation above the thighs. No motor function lower extremities bilaterally. Upper extremities remain weak. Cough remains weak. He is on Lantus insulin 50 units daily and NovoLog 10 units with meals and sliding scale coverage. He remains on prednisone 40 mg p.o. daily. He remains on Lovenox for DVT prophylaxis. Samuels catheter to be discontinued today. He is awake and alert and communicating. The white cell count is 8.6 with a hemoglobin 11.4 and a platelet count of 85. BUN 16 with a creatinine 0.4. Sodium level is 133 and the blood sugar is at 169. Patient is being considered for LTAC. Insurance authorization has not been obtained. He is postop day #19. 04/12/2025, the patient is found to be slightly hypotensive. Overnight, the patient was given a bolus of 500 cc. Blood pressure is currently soft with a systolic in the mid 80s. Urine output was also low. The patient will be given another bolus of 1 L and is asked to be placed on hold. He is currently on liters of oxygen by nasal cannula. No respiratory difficulties. Neurologically unchanged. The white cell count is at 8.6 with a hemoglobin 10.8 and a platelet count has dropped further down to 55. K is at 3.9. BUN 16 with a creatinine 0.3. No antibiotics at this point and the patient remains on prednisone 40 mg p.o. daily. The patient is postop day #20. Tolerating diet. No issues with swallowing. 04/13/2025, the patient is being seen for a follow-up. The patient is calm and comfortable. Blood pressure remains soft yet stable. The patient was taken off the lisinopril. Fluid balance is +30 cc over the past 24 and the patient remains on 3 L of oxygen by nasal cannula. Afebrile. Awake and alert and communicating. Repeat chest x-ray was done this morning and it shows no lung volumes left greater than right base with small bilateral pleural effusion. No significant changes otherwise compared to yesterday. Tolerating diet. Motor function is unchanged lower extremity and the patient has no motor function in his legs bilaterally. Sensation is slightly present above the knees in the th ighs bilaterally. Motor function upper extremities 4 out of 5. The white Of 9.8 with a Heme of 10.4 and the Platelet Count of 55. BUN Is 18 with a Creatinine of 0.28 and a Sodium of 132. Glucose at 149. Patient Remains on Lovenox 40 Mg Subcu for DVT Prophylaxis. Remains on Lantus 50 Units Daily and NovoLog Sliding Scale Coverage. Rest of the Medications Are Essentially Unchanged. Remains on Prednisone 40 Mg P.O. Daily. No Issues with Pain. Continues to Wear a Hard Neck Collar. The patient is postop day #21. On 04/14/2025, the patient is being seen for a follow-up. Condition is stable and he remains on 3 L of oxygen by nasal cannula. Hemodynamically stable. Blood pressure is stable. The patient on Lantus insulin 15 yesterday. The patient on prednisone 40 mg p.o. daily. Blood work from today still pending. No new complaints otherwise for now. Tolerating diet. Having bowel movement. Using incentive spirometer. Was transitioned on the chair. Neurologically unchanged and the patient has no motor function lower extremities bilaterally. He is postop day #22. On 04/15/2025, the patient is being seen for a follow-up. Sitting up in a chair and the patient is calm and comfortable. No motor function lower extremities bilaterally in the patient's neurologic status essentially unchanged. The patient remains on oxygen and the patient is currently on 4 L of O2 nasal ca nnula with a pulse ox of 91%. Using incentive spirometer. No respiratory distress. Tolerating diet. The white cell count is 4.9 with a hemoglobin 10.3 and a platelet count of 62. BUN 17 with a creatinine of 0.4. Potassium level is at 3.0 that needs to be replaced. Platelet count is improved compared to yesterday. No other new complaints otherwise for now. April 16, 2025 in follow-up on the selective care unit. He is currently sitting up in bed. Awake and alert in no acute distress. He is maintaining O2 saturation in the low 90s on 4 L/min per nasal cannula. He has been afebrile. Hemodynamically stable. White count 3.8. Hemoglobin 9.8. Platelets 59,000. Sodium 135. Potassium 3.2. Bicarb 30. BUN 15. Creatinine 0.33. Glucose 111. He remains on DuoNeb inhalations. Lovenox for DVT prophylaxis. Remains on a prednisone taper. Awaiting a bed at [facility]. Insurance authorization remains an issue. The patient is seen today April 17, 2025 in follow-up on the selective care unit. He is sitting up in bed. Awake and alert. He is having increasing shortness of breath today with increasing dyspnea. Chest x-ray is again starting to show opacity in the left lung. He continues with a very weak cough. Unable to clear his own secretions. He has been working with respiratory therapy including with the incentive spirometer and flutter valve. He is now requiring 15 L high flow nasal cannula. He has been intolerant to BiPAP. Sodium 135. Potassium 3.8. Bicarb 32. BUN 16. Creatinine 0.40. Glucose 92. He remains on DuoNeb inhalations. Lovenox for DVT prophylaxis. Continued on Mucinex. The patient is seen today April 23, 2025 in follow-up in the intensive care unit. He had again developed respiratory distress while up on the regular medical floor and a near complete whiteout of the left lung. He was placed on BiPAP and showed improvement. Today he is sitting up in a chair. Awake and alert in no acute distress. There is still some left lower lung collapse on the chest x- ray. He remains on Airvo high flow oxygen at 55 L and 75% FiO2 during the day. He is utilizing BiPAP at night 12/8 and 60% FiO2. He remains on Zosyn. He has normal saline at KVO. He attempts to work with the incentive spirometer and the flutter valve but his voice remains weak. His cough remains very weak. He does have paraplegia. He does not even feel subcu injections into the lower abdomen. He remains on DuoNeb inhalations. Receiving chest physiotherapy. Lovenox for DVT prophylaxis. Protonix for GI prophylaxis. The patient is seen today April 24, 2025 in follow-up in the intensive care unit. He is currently sitting up in bed. Awake and alert in no acute distress. He continues to have minimal tolerance for any activity without having shortness of breath and desaturations. His chest x-ray is again showing worsening left lower lobe collapse. He refused to wear the BiPAP last evening. He remains quite anxious about it. He remains on Airvo high flow nasal cannula at 60 L and 80% FiO2. Initial bronch wash cultures from March 26, 2025 was positive for Serratia marcescens. He is currently on Zosyn. White count 8.3. Hemoglobin 10.7. Platelets 339. Sodium 136. Potassium 3.6. Bicarb 29. BUN 13. Creatinine 0 .32. Glucose 127. He remains on DuoNeb inhalations, Mucinex, prednisone. Lovenox for DVT prophylaxis. Protonix for GI prophylaxis. The patient is seen today April 26 2025 in follow-up in the intensive care unit. He is awake and alert. Still requiring BiPAP support 16/8 and 50% FiO2 to maintain O2 saturations in the 90s. He has normal saline at 75 mL/h. White count 8.7. Hemoglobin 10.3. Platelets 329. Sodium 135. Potassium 3.6. Bicarb 32. BUN 13. Creatinine 0.31. Glucose 121. Chest x-ray continues to show a left lower lobe infiltrate. He remains on DuoNeb inhalations. Currently sedated on Precedex 0.3 mcg/kg/h. Plan is for tracheostomy and PEG tube placement today. The patient is seen today April 27, 2025 in follow-up in the intensive care unit. He is currently resting in bed. Sedated on propofol at 25 mcg/kg/min. Normal saline at 75 mL/h. He is on the ventilator currently at a 6 control mode at a rate of 20, tidal volume 400, FiO2 50% and a PEEP of 8. Blood gases revealed a PO2 of 83, PCO2 of 46 and a pH of 7.45. White count 11.5. Hemoglobin 10.1. Platelets 324. Sodium 138. Potassium 2.9. Bicarb 31. BUN 11. Creatinine 0.29. Glucose 103. He remains on DuoNeb inhalations, Pulmicort and Perforomist inhalations, prednisone. Being nourished with vital HP at 10 mL/h with a goal of 40. Tracheostomy and PEG tubes placed yesterday. The patient is seen today April 28, 2025 in follow-up in the intensive care unit. He remains on mechanical ventilator via tracheostomy tube and assist-control mode at a rate of 20, tidal volume 400, FiO2 40% and a PEEP of 8. Morning blood gases revealed a PO2 of 73, [id number] and a pH of 7.46. He is sedated lightly on propofol at 10 mcg/kg/min. Normal saline at 75 mL/h. Being nourished via PEG tube with vital HP at 30 mL/h with a goal of 40 mL/h. Chest x-ray reveals retrocardiac opacity and small bilateral pleural effusions. White count 12.2. Hemoglobin 10.0. Platelets 289. Sodium 135. Potassium 3.0. Bicarb 28. BUN 7. Creatinine 0.21. Glucose 101. He remains on DuoNeb inhalations, Pulmicort and Perforomist inhalations, prednisone taper. Lovenox for DVT prophylaxis. Protonix for GI prophylaxis. The patient is seen today April 29, 2025 in follow-up in the intensive care unit. He remains on mechanical ventilator currently in assist-control mode at a rate of 20, tidal volume 400, FiO2 50% and a PEEP of 8. Morning blood gases reveal a PO2 of 84, PCO2 of 44 and a pH of 7.50. He is sedated on propofol 25 mcg/kg/min. Receiving normal saline at 75 mL/h. He is being nourished with vital HP at 40 mL/h. White count 12.6. Hemoglobin 9.0. Platelets 335. Sodium 137. Potassium 3.2. Bicarb 32. BUN 7. Creatinine 0.18. Glucose 141. Chest x-ray reveals resolution of the previous small right pleural effusion. Stable left pleural effusion. No cardiomegaly or pulmonary vascular congestion. No airspace consolidation. 04/30/2025, the patient is being seen for a follow-up. The patient remains on a mechanical ventilator. He is awake and arousable while being on propofol running at 50 mcg/kg/min. He is on assist-control mode rate of 20, tidal volume of 400, FiO2 60% with a PEEP of 8. His blood gases showing a pH of 7.46 with [id number] and PO2 of 67. The patient has a lumbar 7.5 [address] in place and the patient also has a PEG tube with vital high-protein running at 40 cc an hour. No active diarrhea and his diarrhea subsided and the fecal management system will be removed. Minimal respiratory secretions. Chest x-ray from today showing ongoing infiltrates/consolidation lung bases and small amount of fluid and atelectasis in the lung bases. Noted the patient had an extensive left lower lobe pneumonia that was attributed to Serratia marcescens and the patient was treated with broad-spectrum antibiotics and the patient was taken off antibiotics and currently is on no antibiotics. He remains on 20 mg of prednisone. Neurologically unchanged the patient has no motor function lower extremities bilaterally. He is still on Lantus insulin 5 units daily and a sliding scale coverage. He is arousable and communicating. He remains on Lovenox 40 mg subcu on a daily basis. On 05/01/2025, the patient is being seen for a follow-up. The patient remains on a mechanical ventilator. The patient is off propofol for now. Calm and comfortable. Patient has a tracheostomy tube and the patient is having copious amount of respiratory secretions, purulent around the tracheostomy stoma. Sputum sample will be sent again. Meanwhile, the patient is having fever with a Tmax of 100.4. The patient will also start on broad-spectrum antibiotics. He is currently on assist-control mode at rate of 20, tidal volume of 400, FiO2 of 60% with a PEEP of 8. Blood gas showed a pH of 7.49 with a [id number] and PO2 of 71. The patient's chest x-ray from today is showing volume loss and small to moderate-sized bilateral pleural effusion/atelectasis in the lung bases and similar findings were also noted on the CAT scan of the chest that was done on 05/01/2025. The patient was started on broad-spectrum antibiotics. The patient will be given a combination of cefepime and vancomycin. The patient had a net fluid balance of -2.5 L over the past 24 hours. Another dose of Lasix will be given today. Rest of the blood work shows a white cell count of 20 and a white cell count on the right with a hemoglobin 9.1 and a platelet count of 293. Sodium is at 137, potassium is 3.9, BUN 11 with a creatinine of 0.23. On 05/02/2025, the patient is being seen for a follow-up. Awake and arousable and communicating. Able to move his upper extremities. No motor function lower extremities bilaterally. Neurologically unchanged. No fever for today. His white cell count is improved compared to yesterday and the white cell count is currently down to 1 17.5 and the patient is afebrile. Sputum samples were collected yesterday and there is presumptive Staph aureus and Klebsiella on those cultures. This was confirmed on 2 separate samples from 04/30/2025 and 05/01/2025. The patient is already on cefepime and vancomycin pending the cultures to be finalized and pending further sensitivities. Meanwhile, a repeat chest x-ray was done and the chest x-ray from today showing bilateral lower lobe consolidation and effusions. There is a small left-sided pleural effusion and right basilar has some increased in interval. Overall respiratory secretions are improved compared to yesterday and the patient is requiring less suctioning. He has a negative fluid balance of 1.8 L while receiving IV Lasix. He has a fecal management system in the stool output has also improved. The white cell count at 17 with a hemoglobin 7.7 and platelet count of 247. BUN is 70 with a creatinine of 0.2. Sodium is at 134 and potassium level is at 4.4. No other significant events otherwise. On 05/03/2025, the patient is being seen for a follow-up. Patient is having copious amount of respiratory secretions. Based on that, I performed a bronchoscopy at the bedside and a total of 30 cc of purulent respiratory secretions were suctioned out from the patient's airways more so from the right lower lobe. Those were sent for cultures. Noted earlier sputum sample that was collected on this patient from 04/30/2025 and 05/01/2025 showed MSSA and Klebsiella pneumoniae. For now, the patient is covered with IV cefepime. Patient is also on vancomycin. Awaiting repeat cultures from the bronchoscopy and the bronchial lavage. Meanwhile, the patient remains on the mechanical osman tilator. The patient on assist-control at rate of 20, tidal volume of 400, FiO2 60% with a PEEP of 10. The chest x-ray done from today showed bilateral patchy pulmonary infiltrates more so on the right lung base and possibly some trace pleural effusions. Tracheostomy tube is in a good location. Blood gas showed a pH of 7.44 with a [id number] PO2 of 131. WBC close at 1 18.9 with a hemoglobin of 8.4 and a platelet count of 227. Sodium is at 135, BUN is 20 with a creatinine of 0.22. Potassium levels are 3.4. Remains on vital HP at rate of 40 cc an hour. Liquidy output through the fecal management system in the patient's stool for C. difficile has been negative. The patient remains on DuoNeb nebulizer treatments [id number]. The patient remains on steroids and the prednisone will be dropped down to 10 mg p.o. daily. Abdomen is slightly distended and tympanic. Patient is on Lantus insulin 5 units daily and insulin Scale insulin coverage. No other significant events otherwise for now. He is afebrile. Hemodynamically stable. His net fluid balance has been in the order of -1.8 L over the past 24 hours and the patient received diuretics. 05/04/2025, the patient is being seen for a follow-up. Awake and alert on no sedatives. Neurologic functions are essentially unchanged and the patient remains paraplegic. No motor function lower extremities and the patient continues to have a weak cough. Remains on assist-control mode of mechanical ventilation at rate of 20, tidal volume of 400, FiO2 of 60% and a PEEP of 10. Blood gases showed pH of 7.51 with a PCO2 of 51 and PO2 of 190. Bronchoscopy and bronchial lavage of the right lower lobe was done. Copious amount of respiratory secretions that were purulent was aspirated on bronchoscopy on 05/03/2025. The patient has Staph aureus and Klebsiella and the patient remains on a combination of IV cefepime and vancomycin pending further culture results from the bronchoalveolar lavage. Meanwhile, follow-up chest x-ray was done today and the patient's chest x-ray shows similar and slightly improving medial right basilar airspace disease. The white cell count is 16.7, hemoglobin 8.5 and a platelet count of 217. BUN 24 with a creatinine of 0.15. Sodium levels at 134 and potassium levels at 3.4. LFTs are normal. The patient remains on vital HP at rate of 50 cc an hour. Abdomen is slightly distended. Patient has positive bowel sounds and the patient is stooling. Remains on bronchodilators. Remains on prednisone 10 mg p.o. daily. Remains on Lantus insulin 5 units daily and sliding scale coverage. On 05/05/2025, the patient is being seen for a follow-up. The patient had bronchoscopies 2 days in the row and another is bronchoscopy was done yesterday where mucous plugs were again aspirated although the secretions were less abundant. The patient clinically is unchanged. Arousable. No sedation. Still on a mechanical ventilator at rate of 20, tidal volume of 400, FiO2 of 60% with a PEEP of 10. Blood gas with a pH of 7.47 with a PCO2 of 53 and PO2 of 119. Receiving enteral feeding for nutritional support and the patient is currently on vital HP. He is having liquidy stool and the patient has a fecal management system in place. Based on the most recent cultures and his sputum growing Staph aureus and Klebsiella, the patient was kept on IV cefepime. Patient is also on vancomycin. The patient has been afebrile. Hemodynamically stable. The white cell count is currently at 17.6 with a hemoglobin 8.4 and a platelet count of 205. Sodium is at 136, bicarbonate 40, BUN is 20 with a creatinine of 0.2. LFTs are normal. Blood sugars are being monitored. Neurologically unchanged. Remains on 5 mg of prednisone. Objective - Vital Signs Vital signs: Vital Signs Temp 98.0 F 05/05/25 08:00 Pulse 94 05/05/25 09:00 Resp 20 05/05/25 09:00 BP 112/67 05/05/25 09:00 Pulse Ox 100 05/05/25 09:00 FiO2 60 05/05/25 08:00 Intake & Output 05/04/25 05/05/25 05/05/25 18:59 06:59 18:59 Intake Total 720 1430 150 Output Total 2485 3135 125 Balance -1765 -1705 25 Intake: IV 120 220 20 0.9@10 120 120 20 Cefepime 2 gm In Sodium 100 Chloride 0.9% 100 ml @ 25 mls/hr IVPB Q8H JUAN LUIS Rx#: [id number] Intake, IV Titration 500 Amount Vancomycin 2,250 mg In 500 Sodium Chloride 0.9% 500 ml 500 ml @ 167 mls/hr IVPB Q12H JUAN LUIS Rx#: [id number] Tube Feeding 600 650 100 Other 60 30 Output: Urine 585 1335 125 Stool 1900 1800 Other: Voiding Method Indwelling Catheter Indwelling Catheter ABP, PAP, CO, CI - Last Documented Arterial Blood Pressure 96/49 - Exam General: nontoxic, no distress, appears at stated age, patient is currently on a mechanical ventilator and the patient has a 7.[address] tube in place. Derm: warm, dry, intact, dressing noted at the back of neck with no signs of drainage or bleeding. Head: atraumatic, normocephalic, symmetric Eyes: EOMI, anicteric sclera Mouth: no lip lesion, mucus membranes moist Cardiovascular: S1 S2 reg, no murmur, rubs, or gallops Lungs: Diminished breath in the lung bases bilaterally. No significant wheezing. Abdominal: soft, a bowel sounds are present and the patient has a PEG tube in place. Extremities: no gross muscle atrophy, no edema, no contractures, patient is unable to move bilateral lower extremity, increased edema in the right upper extremity. Neuro: Alert, Oriented, CNII-XII grossly intact, gait cannot be assessed as the patient has absent motor function lower extremities bilaterally patient has bilateral foot drop. Reflexes are diminished. No Babinski. No clonus. - Labs CBC & Chem 7: 05/05/25 05:20 05/05/25 05:20 Labs: Abnormal Lab Results - Last 24 Hours (Table) 05/04/25 05/04/25 05/04/25 Range/Units 11:11 18:04 23:42 WBC (4.50-10.00) 10*3/uL RBC (4.40-5.60) 10*6/uL Hgb (13.0-17.0) g/dL Hct (39.6-50.0) % MCHC (32.0-37.0) g/dL Immature Gran # (0.00-0.04) 10*3/uL Neutrophils # (Manual) (1.3-7.7) k/uL Metamyelocytes # (Man) (0) k/uL Myelocytes # (Manual) (0) k/uL ABG pH (7.35-7.45) ABG pCO2 (35-45) mmHg ABG pO2 (83-108) mmHg ABG HCO3 (21-25) mmol/L ABG Total CO2 (19-24) mmol/L ABG O2 Saturation (94-97) % Hemoglobin (13.0-17.5) gm/dL Sodium (137-145) mmol/L Chloride (98-107) mmol/L Carbon Dioxide (22-30) mmol/L Creatinine (0.66-1.25) mg/dL Glucose (74-99) mg/dL POC Glucose (mg/dL) 219 H 250 H 197 H (70-110) mg/dL ALT (4-49) U/L Total Protein (6.3-8.2) g/dL Albumin (3.5-5.0) g/dL 05/05/25 05/05/25 05/05/25 Range/Units 05:20 05:20 05:45 WBC 17.62 H (4.50-10.00) 10*3/uL RBC 2.92 L (4.40-5.60) 10*6/uL Hgb 8.4 L (13.0-17.0) g/dL Hct 27.4 L (39.6-50.0) % MCHC 30.7 L (32.0-37.0) g/dL Immature Gran # 1.60 H (0.00-0.04) 10*3/uL Neutrophils # (Manual) 14.62 H (1.3-7.7) k/uL Metamyelocytes # (Man) 0.18 H (0) k/uL Myelocytes # (Manual) 0.35 H (0) k/uL ABG pH 7.47 H (7.35-7.45) ABG pCO2 53 H (35-45) mmHg ABG pO2 119 H (83-108) mmHg ABG HCO3 39 H (21-25) mmol/L ABG Total CO2 41 H (19-24) mmol/L ABG O2 Saturation 99.2 H (94-97) % Hemoglobin 8.9 L (13.0-17.5) gm/dL Sodium 136 L (137-145) mmol/L Chloride 96 L (98-107) mmol/L Carbon Dioxide 40 H (22-30) mmol/L Creatinine 0.20 L (0.66-1.25) mg/dL Glucose 191 H (74-99) mg/dL POC Glucose (mg/dL) (70-110) mg/dL ALT 88 H (4-49) U/L Total Protein 4.9 L (6.3-8.2) g/dL Albumin 2.4 L (3.5-5.0) g/dL 05/05/25 Range/Units 05:59 WBC (4.50-10.00) 10*3/uL RBC (4.40-5.60) 10*6/uL Hgb (13.0-17.0) g/dL Hct (39.6-50.0) % MCHC (32.0-37.0) g/dL Immature Gran # (0.00-0.04) 10*3/uL Neutrophils # (Manual) (1.3-7.7) k/uL Metamyelocytes # (Man) (0) k/uL Myelocytes # (Manual) (0) k/uL ABG pH (7.35-7.45) ABG pCO2 (35-45) mmHg ABG pO2 (83-108) mmHg ABG HCO3 (21-25) mmol/L ABG Total CO2 (19-24) mmol/L ABG O2 Saturation (94-97) % Hemoglobin (13.0-17.5) gm/dL Sodium (137-145) mmol/L Chloride (98-107) mmol/L Carbon Dioxide (22-30) mmol/L Creatinine (0.66-1.25) mg/dL Glucose (74-99) mg/dL POC Glucose (mg/dL) 179 H (70-110) mg/dL ALT (4-49) U/L Total Protein (6.3-8.2) g/dL Albumin (3.5-5.0) g/dL Microbiology - Last 24 Hours (Table) 05/03/25 11:00 Gram Stain - Preliminary Bronchial Washings - Right Assessment and Plan Plan: Acute hypoxic respiratory failure, multifactorial. The patient has developed bilateral pneumonia. The patient had a follow-up CAT scan of the chest done on 05/01/2025 and the patient was found to have consolidation/atelectasis along with small bibasilar pleural effusions. Sputum sample is positive for presumptive Staph aureus and Klebsiella pneumonia and the patient is currently on a combination of cefepime and vancomycin. Repeat bronchoscopy was done on 05/03/2025 and copious amount of purulent respiratory secretions were aspirated specially from the right lower lobe. Repeat bronchoscopy was done on 05/04/2025. Secretions were less abundant. Cultures the same indicating staph, possibly MSSA in addition to Klebsiella. Will make further antibiotic modification based on the final cultures. Keep same antibiotics for now. Fever, temperature is being monitored, currently afebrile Leukocytosis, improved Purulent secretions around the tracheostomy stoma, with positive sputum cultures, and respiratory secretion have improved and the patient has required [id number] bronchoscopies and therapeutic airway suctioning and removal of mucous plugs. Chronic respiratory insufficiency due to prolonged hospitalization, recurrent pneumonia and a very weak cough mechanism following a spine surgery T8 spinal cord injury. The patient has severe spinal canal stenosis at the level of C7/T1 with motor weakness in the lower extremities in addition to myelopathy. The patient is post C7/T1 discectomy with decompression and fusion and the patient also had extension of a previous C2/7 fusion to T3. Thrombocytopenia, recovered Abdominal distention/ileus, recovered, and the patient has a PEG tube and the patient is receiving enteral feeding for history of support Obstructive sleep apnea maintain CPAP therapy on outpatient basis Diabetes mellitus type 2, with steroid-induced hyperglycemia, currently on Lantus 5 units daily and sliding scale coverage Hypotension, rule out septic versus neurogenic hypotension post spine surgery, recovered Hyperlipidemia Bilateral lower extremity weakness, ongoing motor weakness in the lower extremities bilaterally with absent motor function at this point with bilateral foot drop. Patient's sensations in the lower limbs have improved, but now patient is completely paraplegic. T8 spinal cord injury with motor paralysis lower extremities bilaterally with absent sensation. He does have some feelings in his lower abdomen towards the groin. History of prior cervical fusion C3-C7 History of severe L5-S1 neuroforaminal stenosis Plan Continue ventilator support, no vent changes for today, will try to attempt to wean down FiO2 as tolerated to maintain saturation above 90%. PEEP will be kept at 10. noncontrast CAT scan of the chest was noted and is consistent with bilateral pleural effusion and atelectatic changes lung base bilaterally. Pneumonia is highly likely as the patient has Klebsiella and Staph aureus/MSSA in the sputum samples. Bronchoscopy was done on 05/03/2025 with therapeutic airway suctioning, awaiting final cultures from the bronchoalveolar lavage, another bronchoscopy was done on 05/04/2025 for therapeutic airway suctioning. Monitor fever pattern Monitor white cell count, remains elevated Continue IV cefepime and vancomycin, pending further cultures Aggressive pulmonary toileting Continue DuoNeb nebulizer treatments [id number] Pain control and muscle relaxants IV fluids to KVO Continue vital HP for enteral feeding and nutritional support. Dilaudid for pain control in combination with [place] as needed Lantus insulin 5 units on a daily basis along with sliding scale coverage Prednisone 10 mg p.o. daily. Keep Samuels catheter in place Aggressive pulmonary toileting we will continue to follow make further recommendations based on his progress. This evaluation was done 35 minutes. Time with Patient: Greater than 30
[2025-05-05 17:36] LABS: Glucose,Whole Blood 224 mg/dL (70-110)
[2025-05-05 23:19] LABS: Glucose,Whole Blood 177 mg/dL (70-110)
[2025-05-06 05:13] LABS: ABG HCO3 39 mmol/L (21-25); ABG PCO2 59 mmHg (35-45); ABG PH 7.43 (7.35-7.45); ABG PO2 148 mmHg (83-108); ABG TCO2 41 mmol/L (19-24)
[2025-05-06 05:16] LABS: Allen Test Performed? no
[2025-05-06 05:17] LABS: HCT 25.3 % (39.6-50.0); HGB 7.9 g/dL (13.0-17.0); MCH 29.4 pg (27.0-32.0); MCHC 31.2 g/dL (32.0-37.0); MCV 94.1 fL (80.0-97.0); Platelet Count 187 10*3/uL (140-440); RBC 2.69 10*6/uL (4.40-5.60); RDW 14.3 % (11.5-14.5); WBC 16.67 10*3/uL (4.50-10.00)
[2025-05-06 05:49] LABS: Anion Gap 2 mmol/L; Blood Urea Nitrogen 18 mg/dL (9-20); Calcium 8.5 mg/dL (8.4-10.2); Carbon Dioxide 38 mmol/L (22-30); Chloride 93 mmol/L (98-107); Glucose 191 mg/dL (74-99); Magnesium 1.7 mg/dL (1.6-2.3); Potassium 3.8 mmol/L (3.5-5.1); Sodium 133 mmol/L (137-145)
[2025-05-06 05:52] LABS: African American GFR (CKD) >90 (>60 ml/min/1.73 sqM); Non-African American GFR(CKD) >90 (>60 ml/min/1.73 sqM)
[2025-05-06 06:19] LABS: Glucose,Whole Blood 222 mg/dL (70-110)
[2025-05-06] MEDS: POTASSIUM BICARBONATE/CIT AC 20 MEQ TABLET.EFF NG-TUBE SCH (06:36)
[2025-05-06] MEDS: MAGNESIUM SULFATE-D5W PMX 1 GM in DEXTROSE/WATER 1 100ML.BAG IVPB ONE (06:37)
--- NOTE | 2025-05-06 07:07 | XR ---
EXAMINATION TYPE: XR chest 1V portable DATE OF EXAM: 05/06/2025 5:13 AM COMPARISON: Chest radiograph from one day prior. CLINICAL INDICATION: Male, 65 years old with history of intubated; TECHNIQUE: XR chest 1V portable Frontal view of the chest. FINDINGS: Lungs/Pleura: Bibasilar atelectasis. No evidence for pneumothorax, pleural effusion or focal consolid ation. Pulmonary vascularity: Unremarkable. Heart/mediastinum: Cardiomediastinal silhouette is unremarkable. Musculoskeletal: No acute osseous pathology. There is fixation hardware in the lower cervical spine. Other findings: None Lines/Tubes: Tracheostomy cannula tip projecting over the trachea. Right-sided PICC line with distal tip at the cavoatrial junction. IMPRESSION: 1. Stable exam, No acute cardiopulmonary disease/process. 2. Bibasilar atelectasis. [facility], , 05/06/2025 7:04 AM
[2025-05-06] MEDS: VANCOMYCIN TROUGH DUE 1 EACH MISC MISCELLANE ONE (09:00)
--- NOTE | 2025-05-06 13:05 | P.PN ---
Subjective Progress Note Date: 05/06/25 Hospital Course: Patient is a pleasant 64-year-old male with a past medical history of hypertension, hyperlipidemia, type II [id number] diabetes mellitus, involuntary limb muscle fasciculations/movements on Mirapex and last seen neurologist (Dr. Wheeler) approximately 2 months ago, migraine headaches, depression. Presented to the emergency department with a chief complaint of sudden onset numbness extending from periumbilical region downwards throughout groin and bilateral lower extremities followed by weakness of bilateral lower extremities. Patient states he was moving some plants at home when he had sudden onset of numbness around his lower abdomen circling around him like a belt that quickly radiated into his groin and into bilateral lower extremities accompanied by weakness of bilateral lower extremities which resulted in his legs giving out from beneath him causing him to fall to the ground. Patient denied having any dizziness or lightheadedness, headache, neck or back pain, or experiencing any pain in his abdomen, groin, or lower extremities. He denies hitting his head during the fall and denies having any loss of consciousness. But reports due to the sudden onset numbness and weakness he was unable to stand back up and had to have his call EMS for transfer to the hospital. Upon arrival to our facility, patient underwent evaluation in the emergency department. Vital signs upon arrival show blood pressure 165/97, heart rate 88, respiratory rate 18, temp 98.8 F, and SpO2 of 97% on room air. CT lumbar spine CT abdomen and pelvis was also negative for acute intra-abdominal process completed showing no evidence for spinal fracture, no evidence for significant spinal canal stenosis revealing severe right L5-S1 neuroforaminal stenosis and moderate bilateral L4-L5 neuroforaminal stenosis, revealing a right middle lobe pulmonary nodule 8 mm, prostamegaly, colonic diverticulosis, and bilateral adrenal myolipoma's. Labs completed and reviewed. CBC unremarkable. BMP showing hyperglycemia with blood glucose of 146. Liver profile normal findings. Urinalysis positive for glucose and ketones but negative for infection. Patient was admitted under services with consultation to neurology and orthospine surgery. MRI lumbar spine was completed showing no definitive evidence of disc herniation or significant spinal canal stenosis revealing minimal disc degeneration with associated osteoarthritic changes. Patient underwent extensive cervical spinal surgery on the evening of 03/20/2025 through 03/21/2025. Subjective: No acute events overnight. Gen: In NAD, non-toxic HEENT: normocephalic, atraumatic, hearing acuity is intant, mucous membranes moist CVS: perfusing all extremities well, no pitting edema, Respiratory: symmetric chest expansion, no accessory muscle use, tracheostomy with ventilator dependence GI: soft, NTTP, ND, : no suprapubic tenderness, no CVA tenderness MSK/Derm: no rashes, cyanosis, sacral decubitus wound, foul smelling, Neuro: CN II-XII intact, 0-5 lower extremity weakness bilaterally, 4+ out of 5 upper extremity motor Assessment and Plan: #. Acute hypoxemic respiratory failure secondary to severe atelectasis and mucous plugging status post bronchoscopy x 2 #. Healthcare acquired Pneumonia secondary to Serratia and Milagros #. Leukocytosis,resolved #. Persistent atelectasis - Patient remains in the ICU, vent dependent, status post trach and PEG -Continue cefepime, vancomycin; micro from sputum growing MSSA and Klebsiella Continue with steroid taper, prednisone 10 mg daily Continue DuoNebs 4 times daily and every 2 hours as needed Continue with Mucomyst, DuoNebs 4 times daily, every 2 hours as needed Encourage incentive spirometry Aggressive pulmonary toileting Monitor CBC #. Cervical myelopathy secondary to severe spinal canal stenosis involving C7-T1 #. Status post extensive cervical decompression with discectomy at C7-T1 and fusion with extension of fusion from C3-C7 with new extension down to T3 #. Severe right L5-S1 neuroforaminal stenosis #. Moderate bilateral L4-L5 neuroforaminal stenosis Orthopedic surgery following status post extensive cervical decompression with dissecting at C7-T1 and fusion with extension of fusion from C3-C7 with new extension down to T3 Continue Prednisone taper as above Completed course of IV cefazolin Continue neurochecks every 4 hours and as needed. Maintain fall precautions Continue Samuels catheter, patient is retaining Continue Unna boot bilaterally to prevent foot drop PT/OT Social work following with regards to disposition #. Type II rff-feffdzt-qtzbnmolt diabetes mellitus Hyperglycemia likely secondary to high-dose steroids being administered at this time. Improving. -Lantus 5 units daily, sliding scale insulin #. normocytic anemia, slightly downtrending, continue to monitor #. Hypokalemia, resolved #. Hypomagnesemia, resolved #. Bilateral lower extremity edema, stable #. Thrombocytopenia, stable, resolved # Respiratory acidosis, resolved # Metabolic alkalosis, resolved Hypotension, resolved - Continue to hold antihypertensives Chronic: #. Hypertension #. Hyperlipidemia #. Obstructive sleep apnea #. BPH #. Restless leg syndrome #. Neuropathy DVT ppx: Lovenox Code status: Full code Anticipated discharge place: Pending clinical course Anticipated discharge time: Pending clinical course Objective - Vital Signs Vital signs: Vital Signs Temp 98.1 F 05/06/25 08:00 Pulse 78 05/06/25 11:43 Resp 21 05/06/25 11:00 BP 125/71 05/06/25 11:00 Pulse Ox 88 L 05/06/25 11:00 FiO2 90 05/06/25 11:30 Intake & Output 05/05/25 05/06/25 05/06/25 18:59 06:59 18:59 Intake Total 1880 1635 450 Output Total 2300 900 575 Balance -420 735 -125 Intake: IV 140 720 50 0.9@10 140 120 50 Cefepime 2 gm In Sodium 100 Chloride 0.9% 100 ml @ 25 mls/hr IVPB Q8H JUAN LUIS Rx#: [id number] Vancomycin 2,250 mg In 500 Sodium Chloride 0.9% 500 ml 500 ml @ 167 mls/hr IVPB Q12H JUAN LUIS Rx#: [id number] Intake, IV Titration 1000 125 Amount Vancomycin 2,250 mg In 1000 125 Sodium Chloride 0.9% 500 ml 500 ml @ 167 mls/hr IVPB Q12H JUAN LUIS Rx#: [id number] Oral 100 Tube Feeding 650 700 300 Other 90 90 Output: Urine 1000 900 575 Stool 1300 Other: Voiding Method Indwelling Catheter Indwelling Catheter ABP, PAP, CO, CI - Last Documented Arterial Blood Pressure 126/62 - Labs CBC & Chem 7: 05/06/25 04:58 05/06/25 04:58 Labs: Abnormal Lab Results - Last 24 Hours (Table) 05/05/25 05/05/25 05/06/25 Range/Units 17:34 23:18 04:58 WBC (4.50-10.00) 10*3/uL RBC (4.40-5.60) 10*6/uL Hgb (13.0-17.0) g/dL Hct (39.6-50.0) % MCHC (32.0-37.0) g/dL ABG pCO2 (35-45) mmHg ABG pO2 (83-108) mmHg ABG HCO3 (21-25) mmol/L ABG Total CO2 (19-24) mmol/L ABG O2 Saturation (94-97) % Sodium 133 L (137-145) mmol/L Chloride 93 L (98-107) mmol/L Carbon Dioxide 38 H (22-30) mmol/L Creatinine <0.15 L (0.66-1.25) mg/dL Glucose 191 H (74-99) mg/dL POC Glucose (mg/dL) 224 H 177 H (70-110) mg/dL 05/06/25 05/06/25 05/06/25 Range/Units 04:58 05:02 06:17 WBC 16.67 H (4.50-10.00) 10*3/uL RBC 2.69 L (4.40-5.60) 10*6/uL Hgb 7.9 L (13.0-17.0) g/dL Hct 25.3 L (39.6-50.0) % MCHC 31.2 L (32.0-37.0) g/dL ABG pCO2 59 H (35-45) mmHg ABG pO2 148 H (83-108) mmHg ABG HCO3 39 H (21-25) mmol/L ABG Total CO2 41 H (19-24) mmol/L ABG O2 Saturation 100.0 H (94-97) % Sodium (137-145) mmol/L Chloride (98-107) mmol/L Carbon Dioxide (22-30) mmol/L Creatinine (0.66-1.25) mg/dL Glucose (74-99) mg/dL POC Glucose (mg/dL) 222 H (70-110) mg/dL Microbiology - Last 24 Hours (Table) 05/03/25 11:00 Gram Stain - Final Bronchial Washings - Right Bronchial Washings Culture - Final Staphylococcus aureus Klebsiella pneumoniae
--- NOTE | 2025-05-06 16:33 | P.PN ---
Subjective Progress Note Date: 05/06/25 This is a 64-year-old male patient was undergone a C 7 T1 discectomy, done posteriorly with wide laminectomy and foraminotomy and partial facetectomy. The patient was experiencing cervical myelopathy with severe bilateral lower extremity weakness and T8 paresthesia. The patient has previous history of cervical spine fusion C2-C7. The patient was found to have a large herniated disc C7-T1 with severe spinal cord stenosis and based on that the patient was taken to the operating room and underwent a C7-T1 discectomy on 03/21/2025. The patient has become progressively more hypoxic. The patient developed lower lobe pneumonia left more than right. 04/09/2025 the patient is being seen for a follow-up in the intensive care unit. This morning, the patient is awake and alert. He has gotten progressively more debilitated over the past 10 days. He is managed in the intensive care unit for his acute hypoxic respiratory failure and left lower lobe pneumonia. He has required 2 bronchoscopies and the bronchoscopy is done on 03/26/2025 showed Serratia marcescens and the patient's nasal screen was positive for MSSA. The most recent chest x-ray from this morning shows a persistent consolidation in the left lung base and some atelectatic change in lung base bilaterally. No significant interval change compared to earlier chest x-rays. The patient remains on Airvo and earlier this morning the patient was on 6 L with an FiO2 of 65%. IV fluids are currently at KVO. The patient remains on IV cefazolin. Samuels catheter is in place. He has developed increased edema in his right upper extremity. Hemodynamically stable. The white cell count is at 10.2 with a hemoglobin 12.1 and a platelet count of 85. BUN is 19 with a creatinine of 0.37. Remains on IV Solu-Medrol. Spine surgery is on the case. He continues to have difficulties with lower extremity paralysis. He does have some numbness which is improved around his abdomen towards the groin. He does not have any sensation in his lower extremities except for some increased sensation in his right greater toe and no motor function in his lower extremities bilaterally. He is wearing compression stockings and boots. He does have some weakness also in his upper extremities. The patient is postop day #17. He is awake and alert and communicating. He is off the BiPAP. He remains on NovoLog 10 units 3 times daily with meals. Rest of the medications are essentially unchanged. 05/07/2025, patient is being seen for a follow-up. Oxygenation is stable for now. The patient was taken off the Airvo yesterday and the patient was placed on 10 L of oxygen by nasal cannula. Earlier this morning, the patient showed adequate oxygenation and the patient was further weaned down to 8 L/min nasal cannula. Chest x-ray shows a stable left lower lobe consolidation. The patient remains on the same antibiotics and the patient remains IV cefazolin. Cough remains weak. IV fluids are currently at KVO. No fever or chills. He does juan ve some sensation in lower extremities bilaterally although this is minimal. Motor function is still absent. The white cell count 8.7 with a hemoglobin 11.7 and a platelet count of 90. BUN 17 with a creatinine 0.49 and sodium is 136. No other significant events overnight. Will considering discharging this patient to an LTAC facility. The patient is postop day #18. On 04/11/2025, the patient is being seen for a follow-up. The patient shows ongoing improvement in the oxygenation and the patient is currently on 40 of oxygen by nasal cannula. Overnight, the patient utilizing a BiPAP at a pressure of 14 over 8 cm of water regarding his obstructive sleep apnea. He is doing well. He has some sensation above the thighs. No motor function lower extremities bilaterally. Upper extremities remain weak. Cough remains weak. He is on Lantus insulin 50 units daily and NovoLog 10 units with meals and sliding scale coverage. He remains on prednisone 40 mg p.o. daily. He remains on Lovenox for DVT prophylaxis. Samuels catheter to be discontinued today. He is awake and alert and communicating. The white cell count is 8.6 with a hemoglobin 11.4 and a platelet count of 85. BUN 16 with a creatinine 0.4. Sodium level is 133 and the blood sugar is at 169. Patient is being considered for LTAC. Insurance authorization has not been obtained. He is postop day #19. 04/12/2025, the patient is found to be slightly hypotensive. Overnight, the patient was given a bolus of 500 cc. Blood pressure is currently soft with a systolic in the mid 80s. Urine output was also low. The patient will be given another bolus of 1 L and is asked to be placed on hold. He is currently on liters of oxygen by nasal cannula. No respiratory difficulties. Neurologically unchanged. The white cell count is at 8.6 with a hemoglobin 10.8 and a platelet count has dropped further down to 55. K is at 3.9. BUN 16 with a creatinine 0.3. No antibiotics at this point and the patient remains on prednisone 40 mg p.o. daily. The patient is postop day #20. Tolerating diet. No issues with swallowing. 04/13/2025, the patient is being seen for a follow-up. The patient is calm and comfortable. Blood pressure remains soft yet stable. The patient was taken off the lisinopril. Fluid balance is +30 cc over the past 24 and the patient remains on 3 L of oxygen by nasal cannula. Afebrile. Awake and alert and communicating. Repeat chest x-ray was done this morning and it shows no lung volumes left greater than right base with small bilateral pleural effusion. No significant changes otherwise compared to yesterday. Tolerating diet. Motor function is unchanged lower extremity and the patient has no motor function in his legs bilaterally. Sensation is slightly present above the knees in the th ighs bilaterally. Motor function upper extremities 4 out of 5. The white Of 9.8 with a Heme of 10.4 and the Platelet Count of 55. BUN Is 18 with a Creatinine of 0.28 and a Sodium of 132. Glucose at 149. Patient Remains on Lovenox 40 Mg Subcu for DVT Prophylaxis. Remains on Lantus 50 Units Daily and NovoLog Sliding Scale Coverage. Rest of the Medications Are Essentially Unchanged. Remains on Prednisone 40 Mg P.O. Daily. No Issues with Pain. Continues to Wear a Hard Neck Collar. The patient is postop day #21. On 04/14/2025, the patient is being seen for a follow-up. Condition is stable and he remains on 3 L of oxygen by nasal cannula. Hemodynamically stable. Blood pressure is stable. The patient on Lantus insulin 15 yesterday. The patient on prednisone 40 mg p.o. daily. Blood work from today still pending. No new complaints otherwise for now. Tolerating diet. Having bowel movement. Using incentive spirometer. Was transitioned on the chair. Neurologically unchanged and the patient has no motor function lower extremities bilaterally. He is postop day #22. On 04/15/2025, the patient is being seen for a follow-up. Sitting up in a chair and the patient is calm and comfortable. No motor function lower extremities bilaterally in the patient's neurologic status essentially unchanged. The patient remains on oxygen and the patient is currently on 4 L of O2 nasal ca nnula with a pulse ox of 91%. Using incentive spirometer. No respiratory distress. Tolerating diet. The white cell count is 4.9 with a hemoglobin 10.3 and a platelet count of 62. BUN 17 with a creatinine of 0.4. Potassium level is at 3.0 that needs to be replaced. Platelet count is improved compared to yesterday. No other new complaints otherwise for now. April 16, 2025 in follow-up on the selective care unit. He is currently sitting up in bed. Awake and alert in no acute distress. He is maintaining O2 saturation in the low 90s on 4 L/min per nasal cannula. He has been afebrile. Hemodynamically stable. White count 3.8. Hemoglobin 9.8. Platelets 59,000. Sodium 135. Potassium 3.2. Bicarb 30. BUN 15. Creatinine 0.33. Glucose 111. He remains on DuoNeb inhalations. Lovenox for DVT prophylaxis. Remains on a prednisone taper. Awaiting a bed at [facility]. Insurance authorization remains an issue. The patient is seen today April 17, 2025 in follow-up on the selective care unit. He is sitting up in bed. Awake and alert. He is having increasing shortness of breath today with increasing dyspnea. Chest x-ray is again starting to show opacity in the left lung. He continues with a very weak cough. Unable to clear his own secretions. He has been working with respiratory therapy including with the incentive spirometer and flutter valve. He is now requiring 15 L high flow nasal cannula. He has been intolerant to BiPAP. Sodium 135. Potassium 3.8. Bicarb 32. BUN 16. Creatinine 0.40. Glucose 92. He remains on DuoNeb inhalations. Lovenox for DVT prophylaxis. Continued on Mucinex. The patient is seen today April 23, 2025 in follow-up in the intensive care unit. He had again developed respiratory distress while up on the regular medical floor and a near complete whiteout of the left lung. He was placed on BiPAP and showed improvement. Today he is sitting up in a chair. Awake and alert in no acute distress. There is still some left lower lung collapse on the chest x- ray. He remains on Airvo high flow oxygen at 55 L and 75% FiO2 during the day. He is utilizing BiPAP at night 12/8 and 60% FiO2. He remains on Zosyn. He has normal saline at KVO. He attempts to work with the incentive spirometer and the flutter valve but his voice remains weak. His cough remains very weak. He does have paraplegia. He does not even feel subcu injections into the lower abdomen. He remains on DuoNeb inhalations. Receiving chest physiotherapy. Lovenox for DVT prophylaxis. Protonix for GI prophylaxis. The patient is seen today April 24, 2025 in follow-up in the intensive care unit. He is currently sitting up in bed. Awake and alert in no acute distress. He continues to have minimal tolerance for any activity without having shortness of breath and desaturations. His chest x-ray is again showing worsening left lower lobe collapse. He refused to wear the BiPAP last evening. He remains quite anxious about it. He remains on Airvo high flow nasal cannula at 60 L and 80% FiO2. Initial bronch wash cultures from March 26, 2025 was positive for Serratia marcescens. He is currently on Zosyn. White count 8.3. Hemoglobin 10.7. Platelets 339. Sodium 136. Potassium 3.6. Bicarb 29. BUN 13. Creatinine 0 .32. Glucose 127. He remains on DuoNeb inhalations, Mucinex, prednisone. Lovenox for DVT prophylaxis. Protonix for GI prophylaxis. The patient is seen today April 26 2025 in follow-up in the intensive care unit. He is awake and alert. Still requiring BiPAP support 16/8 and 50% FiO2 to maintain O2 saturations in the 90s. He has normal saline at 75 mL/h. White count 8.7. Hemoglobin 10.3. Platelets 329. Sodium 135. Potassium 3.6. Bicarb 32. BUN 13. Creatinine 0.31. Glucose 121. Chest x-ray continues to show a left lower lobe infiltrate. He remains on DuoNeb inhalations. Currently sedated on Precedex 0.3 mcg/kg/h. Plan is for tracheostomy and PEG tube placement today. The patient is seen today April 27, 2025 in follow-up in the intensive care unit. He is currently resting in bed. Sedated on propofol at 25 mcg/kg/min. Normal saline at 75 mL/h. He is on the ventilator currently at a 6 control mode at a rate of 20, tidal volume 400, FiO2 50% and a PEEP of 8. Blood gases revealed a PO2 of 83, PCO2 of 46 and a pH of 7.45. White count 11.5. Hemoglobin 10.1. Platelets 324. Sodium 138. Potassium 2.9. Bicarb 31. BUN 11. Creatinine 0.29. Glucose 103. He remains on DuoNeb inhalations, Pulmicort and Perforomist inhalations, prednisone. Being nourished with vital HP at 10 mL/h with a goal of 40. Tracheostomy and PEG tubes placed yesterday. The patient is seen today April 28, 2025 in follow-up in the intensive care unit. He remains on mechanical ventilator via tracheostomy tube and assist-control mode at a rate of 20, tidal volume 400, FiO2 40% and a PEEP of 8. Morning blood gases revealed a PO2 of 73, SNH125 and a pH of 7.46. He is sedated lightly on propofol at 10 mcg/kg/min. Normal saline at 75 mL/h. Being nourished via PEG tube with vital HP at 30 mL/h with a goal of 40 mL/h. Chest x-ray reveals retrocardiac opacity and small bilateral pleural effusions. White count 12.2. Hemoglobin 10.0. Platelets 289. Sodium 135. Potassium 3.0. Bicarb 28. BUN 7. Creatinine 0.21. Glucose 101. He remains on DuoNeb inhalations, Pulmicort and Perforomist inhalations, prednisone taper. Lovenox for DVT prophylaxis. Protonix for GI prophylaxis. The patient is seen today April 29, 2025 in follow-up in the intensive care unit. He remains on mechanical ventilator currently in assist-control mode at a rate of 20, tidal volume 400, FiO2 50% and a PEEP of 8. Morning blood gases reveal a PO2 of 84, PCO2 of 44 and a pH of 7.50. He is sedated on propofol 25 mcg/kg/min. Receiving normal saline at 75 mL/h. He is being nourished with vital HP at 40 mL/h. White count 12.6. Hemoglobin 9.0. Platelets 335. Sodium 137. Potassium 3.2. Bicarb 32. BUN 7. Creatinine 0.18. Glucose 141. Chest x-ray reveals resolution of the previous small right pleural effusion. Stable left pleural effusion. No cardiomegaly or pulmonary vascular congestion. No airspace consolidation. 04/30/2025, the patient is being seen for a follow-up. The patient remains on a mechanical ventilator. He is awake and arousable while being on propofol running at 50 mcg/kg/min. He is on assist-control mode rate of 20, tidal volume of 400, FiO2 60% with a PEEP of 8. His blood gases showing a pH of 7.46 with [id number] and PO2 of 67. The patient has a lumbar 7.5 [address] tube in place and the patient also has a PEG tube with vital high-protein running at 40 cc an hour. No active diarrhea and his diarrhea subsided and the fecal management system will be removed. Minimal respiratory secretions. Chest x-ray from today showing ongoing infiltrates/consolidation lung bases and small amount of fluid and atelectasis in the lung bases. Noted the patient had an extensive left lower lobe pneumonia that was attributed to Serratia marcescens and the patient was treated with broad-spectrum antibiotics and the patient was taken off antibiotics and currently is on no antibiotics. He remains on 20 mg of prednisone. Neurologically unchanged the patient has no motor function lower extremities bilaterally. He is still on Lantus insulin 5 units daily and a sliding scale coverage. He is arousable and communicating. He remains on Lovenox 40 mg subcu on a daily basis. On 05/01/2025, the patient is being seen for a follow-up. The patient remains on a mechanical ventilator. The patient is off propofol for now. Calm and comfortable. Patient has a tracheostomy tube and the patient is having copious amount of respiratory secretions, purulent around the tracheostomy stoma. Sputum sample will be sent again. Meanwhile, the patient is having fever with a Tmax of 100.4. The patient will also start on broad-spectrum antibiotics. He is currently on assist-control mode at rate of 20, tidal volume of 400, FiO2 of 60% with a PEEP of 8. Blood gas showed a pH of 7.49 with a [id number] and PO2 of 71. The patient's chest x-ray from today is showing volume loss and small to moderate-sized bilateral pleural effusion/atelectasis in the lung bases and similar findings were also noted on the CAT scan of the chest that was done on 05/01/2025. The patient was started on broad-spectrum antibiotics. The patient will be given a combination of cefepime and vancomycin. The patient had a net fluid balance of -2.5 L over the past 24 hours. Another dose of Lasix will be given today. Rest of the blood work shows a white cell count of 20 and a white cell count on the right with a hemoglobin 9.1 and a platelet count of 293. Sodium is at 137, potassium is 3.9, BUN 11 with a creatinine of 0.23. On 05/02/2025, the patient is being seen for a follow-up. Awake and arousable and communicating. Able to move his upper extremities. No motor function lower extremities bilaterally. Neurologically unchanged. No fever for today. His white cell count is improved compared to yesterday and the white cell count is currently down to 1 17.5 and the patient is afebrile. Sputum samples were collected yesterday and there is presumptive Staph aureus and Klebsiella on those cultures. This was confirmed on 2 separate samples from 04/30/2025 and 05/01/2025. The patient is already on cefepime and vancomycin pending the cultures to be finalized and pending further sensitivities. Meanwhile, a repeat chest x-ray was done and the chest x-ray from today showing bilateral lower lobe consolidation and effusions. There is a small left-sided pleural effusion and right basilar has some increased in interval. Overall respiratory secretions are improved compared to yesterday and the patient is requiring less suctioning. He has a negative fluid balance of 1.8 L while receiving IV Lasix. He has a fecal management system in the stool output has also improved. The white cell count at 17 with a hemoglobin 7.7 and platelet count of 247. BUN is 70 with a creatinine of 0.2. Sodium is at 134 and potassium level is at 4.4. No other significant events otherwise. On 05/03/2025, the patient is being seen for a follow-up. Patient is having copious amount of respiratory secretions. Based on that, I performed a bronchoscopy at the bedside and a total of 30 cc of purulent respiratory secretions were suctioned out from the patient's airways more so from the right lower lobe. Those were sent for cultures. Noted earlier sputum sample that was collected on this patient from 04/30/2025 and 05/01/2025 showed MSSA and Klebsiella pneumoniae. For now, the patient is covered with IV cefepime. Patient is also on vancomycin. Awaiting repeat cultures from the bronchoscopy and the bronchial lavage. Meanwhile, the patient remains on the mechanical osman tilator. The patient on assist-control at rate of 20, tidal volume of 400, FiO2 60% with a PEEP of 10. The chest x-ray done from today showed bilateral patchy pulmonary infiltrates more so on the right lung base and possibly some trace pleural effusions. Tracheostomy tube is in a good location. Blood gas showed a pH of 7.44 with a [id number] PO2 of 131. WBC close at 1 18.9 with a hemoglobin of 8.4 and a platelet count of 227. Sodium is at 135, BUN is 20 with a creatinine of 0.22. Potassium levels are 3.4. Remains on vital HP at rate of 40 cc an hour. Liquidy output through the fecal management system in the patient's stool for C. difficile has been negative. The patient remains on DuoNeb nebulizer treatments [id number]. The patient remains on steroids and the prednisone will be dropped down to 10 mg p.o. daily. Abdomen is slightly distended and tympanic. Patient is on Lantus insulin 5 units daily and insulin Scale insulin coverage. No other significant events otherwise for now. He is afebrile. Hemodynamically stable. His net fluid balance has been in the order of -1.8 L over the past 24 hours and the patient received diuretics. 05/04/2025, the patient is being seen for a follow-up. Awake and alert on no sedatives. Neurologic functions are essentially unchanged and the patient remains paraplegic. No motor function lower extremities and the patient continues to have a weak cough. Remains on assist-control mode of mechanical ventilation at rate of 20, tidal volume of 400, FiO2 of 60% and a PEEP of 10. Blood gases showed pH of 7.51 with a PCO2 of 51 and PO2 of 190. Bronchoscopy and bronchial lavage of the right lower lobe was done. Copious amount of respiratory secretions that were purulent was aspirated on bronchoscopy on 05/03/2025. The patient has Staph aureus and Klebsiella and the patient remains on a combination of IV cefepime and vancomycin pending further culture results from the bronchoalveolar lavage. Meanwhile, follow-up chest x-ray was done today and the patient's chest x-ray shows similar and slightly improving medial right basilar airspace disease. The white cell count is 16.7, hemoglobin 8.5 and a platelet count of 217. BUN 24 with a creatinine of 0.15. Sodium levels at 134 and potassium levels at 3.4. LFTs are normal. The patient remains on vital HP at rate of 50 cc an hour. Abdomen is slightly distended. Patient has positive bowel sounds and the patient is stooling. Remains on bronchodilators. Remains on prednisone 10 mg p.o. daily. Remains on Lantus insulin 5 units daily and sliding scale coverage. On 05/05/2025, the patient is being seen for a follow-up. The patient had bronchoscopies 2 days in the row and another is bronchoscopy was done yesterday where mucous plugs were again aspirated although the secretions were less abundant. The patient clinically is unchanged. Arousable. No sedation. Still on a mechanical ventilator at rate of 20, tidal volume of 400, FiO2 of 60% with a PEEP of 10. Blood gas with a pH of 7.47 with a PCO2 of 53 and PO2 of 119. Receiving enteral feeding for nutritional support and the patient is currently on vital HP. He is having liquidy stool and the patient has a fecal management system in place. Based on the most recent cultures and his sputum growing Staph aureus and Klebsiella, the patient was kept on IV cefepime. Patient is also on vancomycin. The patient has been afebrile. Hemodynamically stable. The white cell count is currently at 17.6 with a hemoglobin 8.4 and a platelet count of 205. Sodium is at 136, bicarbonate 40, BUN is 20 with a creatinine of 0.2. LFTs are normal. Blood sugars are being monitored. Neurologically unchanged. Remains on 5 mg of prednisone. On 05/06/2025, the patient is being seen for a follow-up. The patient is off sedation. The patient is following commands. Arousable. Currently on assist- control mode rate of 20, tidal volume of 400, FiO2 of 80% with a PEEP of 10. Blood gas showed a pH of 7.43 with a PCO2 of 59 and PO2 148. No significant changes on chest x-ray. The patient remains on vital HP at rate of 50 cc an hour. Hemodynamically stable. Afebrile. Currently on IV cefepime as the patient's sputum sample and bronchoscopy and lavage from the right lung showed MSSA and Klebsiella. Continues to receive enteral feeding for nutritional support. Neurologically unchanged. Continues to have episodes of oxygen saturation and mucous plugging and this is becoming a daily occurrence. Still on Lovenox 40 mg subcu for DVT prophylaxis. Still on Lantus insulin 5 units daily and sliding scale coverage. Still on bronchodilators. Prednisone has been weaned down to 10 mg p.o. daily. Objective - Vital Signs Vital signs: Vital Signs Temp 98.1 F 05/06/25 04:00 Pulse 78 05/06/25 08:41 Resp 23 05/06/25 07:00 BP 104/64 05/06/25 07:00 Pulse Ox 99 05/06/25 07:00 FiO2 80 05/06/25 09:28 Intake & Output 05/05/25 05/06/25 05/06/25 18:59 06:59 18:59 Intake Total 1880 1635 60 Output Total 2300 900 100 Balance -420 735 -40 Intake: IV 140 720 10 0.9@10 140 120 10 Cefepime 2 gm In Sodium 100 Chloride 0.9% 100 ml @ 25 mls/hr IVPB Q8H JUAN LUIS Rx#: [id number] Vancomycin 2,250 mg In 500 Sodium Chloride 0.9% 500 ml 500 ml @ 167 mls/hr IVPB Q12H JUAN LUIS Rx#: [id number] Intake, IV Titration 1000 125 Amount Vancomycin 2,250 mg In 1000 125 Sodium Chloride 0.9% 500 ml 500 ml @ 167 mls/hr IVPB Q12H JUAN LUIS Rx#: [id number] Tube Feeding 650 700 50 Other 90 90 Output: Urine 1000 900 100 Stool 1300 Other: Voiding Method Indwelling Catheter Indwelling Catheter ABP, PAP, CO, CI - Last Documented Arterial Blood Pressure 98/48 - Exam General: nontoxic, no distress, appears at stated age, patient is currently on a mechanical ventilator and the patient has a 7.5 [address] trache[address] tube in place. Derm: warm, dry, intact, dressing noted at the back of neck with no signs of drainage or bleeding. Head: atraumatic, normocephalic, symmetric Eyes: EOMI, anicteric sclera Mouth: no lip lesion, mucus membranes moist Cardiovascular: S1 S2 reg, no murmur, rubs, or gallops Lungs: Diminished breath in the lung bases bilaterally. No significant wheezing. Abdominal: soft, a bowel sounds are present and the patient has a PEG tube in place. Extremities: no gross muscle atrophy, no edema, no contractures, patient is unable to move bilateral lower extremity, increased edema in the right upper extremity. Neuro: Alert, Oriented, CNII-XII grossly intact, gait cannot be assessed as the patient has absent motor function lower extremities bilaterally patient has bilateral foot drop. Reflexes are diminished. No Babinski. No clonus. - Labs CBC & Chem 7: 05/06/25 04:58 05/06/25 04:58 Labs: Abnormal Lab Results - Last 24 Hours (Table) 05/05/25 05/05/25 05/05/25 Range/Units 12:13 17:34 23:18 WBC (4.50-10.00) 10*3/uL RBC (4.40-5.60) 10*6/uL Hgb (13.0-17.0) g/dL Hct (39.6-50.0) % MCHC (32.0-37.0) g/dL ABG pCO2 (35-45) mmHg ABG pO2 (83-108) mmHg ABG HCO3 (21-25) mmol/L ABG Total CO2 (19-24) mmol/L ABG O2 Saturation (94-97) % Sodium (137-145) mmol/L Chloride (98-107) mmol/L Carbon Dioxide (22-30) mmol/L Creatinine (0.66-1.25) mg/dL Glucose (74-99) mg/dL POC Glucose (mg/dL) 228 H 224 H 177 H (70-110) mg/dL 05/06/25 05/06/25 05/06/25 Range/Units 04:58 04:58 05:02 WBC 16.67 H (4.50-10.00) 10*3/uL RBC 2.69 L (4.40-5.60) 10*6/uL Hgb 7.9 L (13.0-17.0) g/dL Hct 25.3 L (39.6-50.0) % MCHC 31.2 L (32.0-37.0) g/dL ABG pCO2 59 H (35-45) mmHg ABG pO2 148 H (83-108) mmHg ABG HCO3 39 H (21-25) mmol/L ABG Total CO2 41 H (19-24) mmol/L ABG O2 Saturation 100.0 H (94-97) % Sodium 133 L (137-145) mmol/L Chloride 93 L (98-107) mmol/L Carbon Dioxide 38 H (22-30) mmol/L Creatinine <0.15 L (0.66-1.25) mg/dL Glucose 191 H (74-99) mg/dL POC Glucose (mg/dL) (70-110) mg/dL 05/06/25 Range/Units 06:17 WBC (4.50-10.00) 10*3/uL RBC (4.40-5.60) 10*6/uL Hgb (13.0-17.0) g/dL Hct (39.6-50.0) % MCHC (32.0-37.0) g/dL ABG pCO2 (35-45) mmHg ABG pO2 (83-108) mmHg ABG HCO3 (21-25) mmol/L ABG Total CO2 (19-24) mmol/L ABG O2 Saturation (94-97) % Sodium (137-145) mmol/L Chloride (98-107) mmol/L Carbon Dioxide (22-30) mmol/L Creatinine (0.66-1.25) mg/dL Glucose (74-99) mg/dL POC Glucose (mg/dL) 222 H (70-110) mg/dL Microbiology - Last 24 Hours (Table) 05/03/25 11:00 Gram Stain - Preliminary Bronchial Washings - Right Bronchial Washings Culture - Preliminary Presumptive Staph aureus Gram Neg Bacilli Assessment and Plan Plan: Acute hypoxic respiratory failure, multifactorial. The patient has developed bilateral pneumonia. The patient had a follow-up CAT scan of the chest done on 05/01/2025 and the patient was found to have consolidation/atelectasis along with small bibasilar pleural effusions. Sputum sample is positive for presumptive Staph aureus and Klebsiella pneumonia and the patient is currently on a combination of cefepime and vancomycin. Repeat bronchoscopy was done on 05/03/2025 and copious amount of purulent respiratory secretions were aspirated specially from the right lower lobe. Repeat bronchoscopy was done on 05/04/2025. Secretions were less abundant. Cultures the same indicating staph, possibly MSSA in addition to Klebsiella. Will make further antibiotic modification based on the final cultures. Will keep the IV cefepime and will drop the vancomycin for now. Fever, temperature is being monitored, currently afebrile Leukocytosis, improved Purulent secretions around the tracheostomy stoma, with positive sputum cultures, and respiratory secretion have improved and the patient has required [id number] bronchoscopies and therapeutic airway suctioning and removal of mucous plugs. The patient continues to have episodes of mucous plugging with episodes of desaturation and this has become a daily occurrence and sometimes several episodes a day. Chronic respiratory insufficiency due to prolonged hospitalization, recurrent pneumonia and a very weak cough mechanism following a spine surgery T8 spinal cord injury. The patient has severe spinal canal stenosis at the level of C7/T1 with motor weakness in the lower extremities in addition to myelopathy. The patient is post C7/T1 discectomy with decompression and fusion and the patient also had extension of a previous C2/7 fusion to T3. Thrombocytopenia, recovered Abdominal distention/ileus, recovered, and the patient has a PEG tube and the patient is receiving enteral feeding for history of support Obstructive sleep apnea maintain CPAP therapy on outpatient basis Diabetes mellitus type 2, with steroid-induced hyperglycemia, currently on [place] tus 5 units daily and sliding scale coverage Hypotension, rule out septic versus neurogenic hypotension post spine surgery, recovered Hyperlipidemia Bilateral lower extremity weakness, ongoing motor weakness in the lower extremities bilaterally with absent motor function at this point with bilateral foot drop. Patient's sensations in the lower limbs have improved, but now patient is completely paraplegic. T8 spinal cord injury with motor paralysis lower extremities bilaterally with absent sensation. He does have some feelings in his lower abdomen towards the groin. History of prior cervical fusion C3-C7 History of severe L5-S1 neuroforaminal stenosis Plan Continue ventilator support, no vent changes for today, will try to attempt to wean down FiO2 as tolerated to maintain saturation above 90%. PEEP will be kept at 10. Will drop down the FiO2. noncontrast CAT scan of the chest was noted and is consistent with bilateral pleural effusion and atelectatic changes lung base bilaterally. Pneumonia is highly likely as the patient has Klebsiella and Staph aureus/MSSA in the sputum samples. Bronchoscopy was done on 05/03/2025 with therapeutic airway suctioning, and the cultures are essentially unchanged with Klebsiella and MSSA. Monitor fever pattern Monitor white cell count, remains elevated, although slightly improved Continue IV cefepime and discontinue the vancomycin Aggressive pulmonary toileting Continue DuoNeb nebulizer treatments [id number] Pain control and muscle relaxants IV fluids to KVO Continue vital HP for enteral feeding and nutritional support. Dilaudid for pain control in combination with [place] as needed Lantus insulin 5 units on a daily basis along with sliding scale coverage Prednisone 10 mg p.o. daily. Keep Samuels catheter in place Aggressive pulmonary toileting we will continue to follow make further recommendations based on his progress. This evaluation was done 35 minutes. Long-term prognosis remains poor based on ongoing comorbidities. Repeated mucous plugging has become an ongoing issue for this patient. Time with Patient: Greater than 30
[2025-05-06 17:29] LABS: Glucose,Whole Blood 222 mg/dL (70-110)
--- NOTE | 2025-05-06 18:05 | P.GSCN ---
History of Present Illness History of present illness: Patient is a 65-year-old male with history of a tracheostomy General Surgery was consulted for sacral decubitus ulcer. Review of Systems ROS unobtainable: due to endotracheal tube Past Medical History Past Medical History: Diabetes Mellitus, Hypertension, Sleep Apnea/CPAP/BIPAP Additional Past Medical History / Comment(s): depression History of Any Multi-Drug Resistant Organisms: None Reported Past Surgical History: Appendectomy, Cholecystectomy Additional Past Surgical History / Comment(s): neck surgery, left elbow, Past Anesthesia/Blood Transfusion Reactions: No Reported Reaction Past Psychological History: Depression Smoking Status: Never smoker Past Alcohol Use History: None Reported Past Drug Use History: None Reported Medications and Allergies Home Medications Medication Instructions Recorded Confirmed Type Aspirin EC [Ecotrin Low Dose] 81 mg PO DAILY 02/15/25 03/18/25 History Cetirizine HCl [Zyrtec] 10 mg PO DAILY 02/15/25 03/18/25 History Cholecalciferol (Vitamin D3) 50 mcg PO DAILY 02/15/25 03/18/25 History [Vitamin D3 (50 Mcg = 2000 Iu)] Famotidine 20 mg PO DAILY 02/15/25 03/18/25 History Fluticasone Nasal [place] [Flonase 1 spray EA NOSTRIL DAILY 02/15/25 03/18/25 History Nasal [place]] Ipratropium [place] 0.06%Nasal 1 spray NASAL BID 02/15/25 03/18/25 History [Atrovent Nasal 0.06%] Nortriptyline [Pamelor] 100 mg PO HS 02/15/25 03/18/25 History Pramipexole [Mirapex] 0.25 mg PO HS 02/15/25 03/18/25 History Simvastatin [Zocor] 80 mg PO HS 02/15/25 03/18/25 History Vibegron [Gemtesa] 75 mg PO DAILY 02/15/25 03/18/25 History lisinopriL 40 mg PO DAILY 02/15/25 03/18/25 History EPINEPHrine (Auto Inject) [Epipen] 0.3 mg IM ONCE PRN 03/18/25 03/18/25 History Testosterone Cypionate 200 mg IM Q14D 03/18/25 03/18/25 History [Depo-Testosterone] Vitamin B-12 250mcg 500 mcg PO DAILY 03/18/25 03/18/25 History Acetaminophen Tab [Tylenol] 650 mg PO Q6HR PRN tab 04/24/25 Rx Acetylcysteine [Mucomyst 20%] 200 mg INHALATION RT-QID each 04/24/25 Rx Benzocaine/Menthol Lozeng [Cepacol 1 each MUCOUS MEM Q4HR PRN lozenge 04/24/25 Rx lozenge] Calcium Carbonate [Tums] 1,000 mg PO QID PRN tab 04/24/25 Rx Cyclobenzaprine [Flexeril] 10 mg PO TID PRN tab 04/24/25 Rx Folic Acid 1 mg PO DAILY tab 04/24/25 Rx INSULIN LISPRO (HumaLOG) [HumaLOG] 0 unit SQ ACHS each 04/24/25 Rx Insulin Glargine (Lantus) [Lantus 10 unit SQ DAILY@0700 each 04/24/25 Rx Vial] Ipratropium-Albuterol Nebulize 3 ml INHALATION RT-Q2H PRN each 04/24/25 Rx [Duoneb 0.5 mg-3 mg/3 ml Soln] Ipratropium-Albuterol Nebulize 3 ml INHALATION RT-QID each 04/24/25 Rx [Duoneb 0.5 mg-3 mg/3 ml Soln] Magnesium Hydroxide [Milk of 2,400 mg PO DAILY PRN ml 04/24/25 Rx Magnesia] Melatonin 5 mg PO HS PRN tab 04/24/25 Rx Pantoprazole [Protonix] 40 mg PO AC-BRKFST tab 04/24/25 Rx Piperacillin-Tazobactam [Zosyn] 3.375 gm IVPB Q8HR each 04/24/25 Rx Sennosides-Docusate Sodium 1 each PO DAILY tab 04/24/25 Rx [Senokot-S] Sennosides-Docusate Sodium 2 each PO DAILY PRN tab 04/24/25 Rx [Senokot-S] Tamsulosin [Flomax] 0.4 mg PO PC-BRKFST cap 04/24/25 Rx diazePAM [Valium] 5 mg PO QID PRN tab 04/24/25 Rx guaiFENesin [Mucinex] 1,200 mg PO BID tab 04/24/25 Rx polyethylene glycoL 3350 [Miralax] 17 gm PO HS packet 04/24/25 Rx predniSONE 30 mg PO DAILY tab 04/24/25 Rx Allergies Allergy/AdvReac Type Severity Reaction Status Date / Time bee venom protein (honey bee) Allergy Anaphylaxis Verified 03/18/25 15:55 pollen extracts AdvReac Itching Verified 03/18/25 15:55 Surgical - Exam Osteopathic Statement: *. No significant issues noted on an osteopathic structural exam other than those noted in the History and Physical/Consult. Vital Signs Temp Pulse Resp BP Pulse Ox 98.8 F 88 18 165/97 97 03/18/25 13:22 03/18/25 13:22 03/18/25 13:22 03/18/25 13:22 03/18/25 13:22 General No acute distress alert and oriented Cardiovascular regular rate and rhythm Pulmonary nonlabored breathing on ventilator Abdomen soft nondistended nontender no guarding rebound tenderness Sacral decubitus ulcer measuring roughly 5 x 9 cm with multiple islands of well- healing tissue a small superficial eschar starting to form Results - Labs 05/06/25 04:58 05/06/25 04:58 Abnormal Lab Results - Last 24 Hours (Table) 05/05/25 05/06/25 05/06/25 Range/Units 23:18 04:58 04:58 WBC 16.67 H (4.50-10.00) 10*3/uL RBC 2.69 L (4.40-5.60) 10*6/uL Hgb 7.9 L (13.0-17.0) g/dL Hct 25.3 L (39.6-50.0) % MCHC 31.2 L (32.0-37.0) g/dL ABG pCO2 (35-45) mmHg ABG pO2 (83-108) mmHg ABG HCO3 (21-25) mmol/L ABG Total CO2 (19-24) mmol/L ABG O2 Saturation (94-97) % Sodium 133 L (137-145) mmol/L Chloride 93 L (98-107) mmol/L Carbon Dioxide 38 H (22-30) mmol/L Creatinine <0.15 L (0.66-1.25) mg/dL Glucose 191 H (74-99) mg/dL POC Glucose (mg/dL) 177 H (70-110) mg/dL 05/06/25 05/06/25 05/06/25 Range/Units 05:02 06:17 17:28 WBC (4.50-10.00) 10*3/uL RBC (4.40-5.60) 10*6/uL Hgb (13.0-17.0) g/dL Hct (39.6-50.0) % MCHC (32.0-37.0) g/dL ABG pCO2 59 H (35-45) mmHg ABG pO2 148 H (83-108) mmHg ABG HCO3 39 H (21-25) mmol/L ABG Total CO2 41 H (19-24) mmol/L ABG O2 Saturation 100.0 H (94-97) % Sodium (137-145) mmol/L Chloride (98-107) mmol/L Carbon Dioxide (22-30) mmol/L Creatinine (0.66-1.25) mg/dL Glucose (74-99) mg/dL POC Glucose (mg/dL) 222 H 222 H (70-110) mg/dL Microbiology - Last 24 Hours (Table) 05/03/25 11:00 Gram Stain - Final Bronchial Washings - Right Bronchial Washings Culture - Final Staphylococcus aureus Klebsiella pneumoniae Diabetes panel 05/06/25 Range/Units 04:58 Sodium 133 L (137-145) mmol/L Potassium 3.8 (3.5-5.1) mmol/L Chloride 93 L (98-107) mmol/L Carbon Dioxide 38 H (22-30) mmol/L BUN 18 (9-20) mg/dL Creatinine <0.15 L (0.66-1.25) mg/dL Glucose 191 H (74-99) mg/dL Calcium 8.5 (8.4-10.2) mg/dL Calcium panel 05/06/25 Range/Units 04:58 Calcium 8.5 (8.4-10.2) mg/dL Pituitary panel 05/06/25 Range/Units 04:58 Sodium 133 L (137-145) mmol/L Potassium 3.8 (3.5-5.1) mmol/L Chloride 93 L (98-107) mmol/L Carbon Dioxide 38 H (22-30) mmol/L BUN 18 (9-20) mg/dL Creatinine <0.15 L (0.66-1.25) mg/dL Glucose 191 H (74-99) mg/dL Calcium 8.5 (8.4-10.2) mg/dL Adrenal panel 05/06/25 Range/Units 04:58 Sodium 133 L (137-145) mmol/L Potassium 3.8 (3.5-5.1) mmol/L Chloride 93 L (98-107) mmol/L Carbon Dioxide 38 H (22-30) mmol/L BUN 18 (9-20) mg/dL Creatinine <0.15 L (0.66-1.25) mg/dL Glucose 191 H (74-99) mg/dL Calcium 8.5 (8.4-10.2) mg/dL Assessment and Plan Assessment: 65-year-old male with failure to thrive with Sacral decubitus ulcer and multiple healing stages 5 x 9 cm sacral decubitus ulcer with multiple well-healing areas and a small 3 x 3 cm area of superficial eschar Consult wound care nursing for [facility] chemical debridement Time with Patient: Greater than 30
[2025-05-06] MEDS: VANCOMYCIN 2,000 MG in SODIUM CHLORIDE 0.9% 500 ML 500 ML IVPB SCH (20:58)
[2025-05-06 23:59] LABS: Glucose,Whole Blood 181 mg/dL (70-110)
[2025-05-07 05:47] LABS: HCT 25.0 % (39.6-50.0); HGB 7.9 g/dL (13.0-17.0); MCH 29.6 pg (27.0-32.0); MCHC 31.6 g/dL (32.0-37.0); MCV 93.6 fL (80.0-97.0); Platelet Count 169 10*3/uL (140-440); RBC 2.67 10*6/uL (4.40-5.60); RDW 14.1 % (11.5-14.5); WBC 13.35 10*3/uL (4.50-10.00)
[2025-05-07 06:08] LABS: Anion Gap 4 mmol/L; Blood Urea Nitrogen 18 mg/dL (9-20); Calcium 8.7 mg/dL (8.4-10.2); Carbon Dioxide 37 mmol/L (22-30); Chloride 92 mmol/L (98-107); Glucose 207 mg/dL (74-99); Magnesium 1.7 mg/dL (1.6-2.3); Potassium 3.8 mmol/L (3.5-5.1); Sodium 133 mmol/L (137-145)
[2025-05-07 06:17] LABS: African American GFR (CKD) >90 (>60 ml/min/1.73 sqM); Non-African American GFR(CKD) >90 (>60 ml/min/1.73 sqM)
[2025-05-07 06:25] LABS: Glucose,Whole Blood 214 mg/dL (70-110)
[2025-05-07 06:44] LABS: ABG HCO3 39 mmol/L (21-25); ABG PCO2 60 mmHg (35-45); ABG PH 7.42 (7.35-7.45); ABG PO2 63 mmHg (83-108); ABG TCO2 41 mmol/L (19-24); Allen Test Performed? Yes
--- NOTE | 2025-05-07 07:05 | XR ---
EXAMINATION TYPE: XR chest 1V portable DATE OF EXAM: 05/07/2025 5:50 AM COMPARISON: Chest radiograph from one day prior. CLINICAL INDICATION: Male, 65 years old with history of trach; TECHNIQUE: XR chest 1V portable Frontal view of the chest. FINDINGS: Lungs/Pleura: Bibasilar atelectasis. No evidence for pneumothorax, pleural effusion or focal consolid ation. Pulmonary vascularity: Unremarkable. Heart/mediastinum: Cardiomediastinal silhouette is unremarkable. Musculoskeletal: No acute osseous pathology. There is fixation hardware in the lower cervical spine. Other findings: None Lines/Tubes: Tracheostomy cannula tip projecting over the trachea. Right-sided PICC line with distal tip at the cavoatrial junction. IMPRESSION: 1. Stable exam, No acute cardiopulmonary disease/process. 2. Bibasilar atelectasis. [facility], , 05/07/2025 7:03 AM
[2025-05-07 08:23] LABS: Lymphocytes # (M) 1.47 k/uL (1.0-4.8); Metamyelocytes # (M) 0.27 k/uL (0); Monocytes # (M) 0.67 k/uL (0-1.0); Myelocytes # (M) 0.13 k/uL (0); Neutrophils # (M) 10.94 k/uL (1.3-7.7); Neutrophils % (M) 80 %; Total Cells Counted 200
[2025-05-07 08:24] LABS: RBC Morphology Normal
[2025-05-07] MEDS: POTASSIUM BICARBONATE/CIT AC 20 MEQ TABLET.EFF NG-TUBE SCH (08:41)
[2025-05-07] MEDS: MAGNESIUM SULFATE-D5W PMX 1 GM in DEXTROSE/WATER 1 100ML.BAG IVPB ONE (08:44)
--- NOTE | 2025-05-07 08:51 | P.PN ---
Progress Note - Text Progress Note Date: 05/07/25 Orthopedic spine: History of present illness: Patient is a very pleasant 65-year-old male who is seen examined at bedside in the ICU for follow-up evaluation of the cervical spine. He is status post posterior cervical decompression discectomy at C7-T1 with extension of fusion from C7 down to T3. Patient is not talking with his tracheostomy in place. He is having pain this morning. He was put in restraints yesterday as he was agitated and removing all of his lines. He has not had any change from an orthopedic spine standpoint. He does have some sensation over his anterior thighs which he states again is greater on the right than the left. He has no sensation in his calfs. Compression stockings and pneumatic boots are intact. He has had a tracheostomy placed. Due to this, his hard cervical collar is not currently intact. He continues with dressing changes as needed over the posterior cervical spine. He is not experiencing any cervical pain. He has adequate range of motion of his bilateral upper extremities except for his shoulders bilaterally. He is able to make a fist but is weak with his aboriginal ceremonial celebrant. He is awake but having difficulty talking. He continues have significant difficulty with this bilateral lower extremities. He has some improved numbness around his abdomen towards the groin and some increased sensation over his anterior thighs. He admits to continued sensation in his right great toe. He has no motor function in his lower extremities. His lower extremity symptoms have not improved. Samuels catheter continues to be present after failing a voiding trial. He will be discharged with a catheter intact. Fecal management system has been placed. He is being managed in the ICU by pulmonary critical care. Patient's cultures have resulted positive for Klebsiella Pneumonia. He will be treated for this per pulmonology critical care. Nursing is unsure if they are planning for bronchoscopy. She states he did have significant desaturation yesterday. [facility] to [facility]. They [facility] [place], [place]. Authorization has been obtained. However, the patient is not currently stable for discharge. He continues to be seen exam by multiple medical providers including pulmonology and medicine. He was seen by general surgery for decubitus sacral ulcer. Wound care has been consulted. Physical Exam Posterior Cervical Fusion: Status post surgical day number #47 Patient is awake and but is having difficulty talking this morning Currently in restraints Pneumatic boots intact bilateral lower extremities Compression stockings intact bilaterally Samuels catheter intact Fecal management system intact Dressing intact at the inferior aspect of the incision site of the posterior cervicothoracic surgical site Hard cervical collar currently not intact Tracheostomy intact Assessment: Spinal cord injury with paralysis at T8 Postoperative day #47: Status post posterior cervical decompression discectomy at C7-T1 with extension of fusion from C7-T3 Bilateral lower extremity paralysis Bilateral lower extremity loss of sensation Acute hypoxic respiratory failure Left-sided atelectasis Obstructive sleep apnea syndrome on CPAP normally Type 2 diabetes Hypotension could be related to sepsis could also be neurogenic post spinal surgery Dyslipidemia Tracheostomy placement Fecal management system placement Sacral decubitus ulcer Plan: We will continue with our plan as set forth previously. 1. Patient continues to remain in the ICU due to pulmonary status. He continues to be closely managed from pulmonary standpoint. Patient's cultures have resulted positive for Klebsiella Pneumonia. He will be treated for this per pulmonology critical care. [place] through the [place] for discharge [place] spinal cord rehabilitation facility. They are currently planning for [facility] [place], [place]. Authorization has been obtained. 2. Patient should keep his hard cervical collar intact at all times, however, this is currently not intact due to his tracheostomy. Patient may continue with dressing changes as needed at the posterior cervical spine. 3. Patient continues to have flaccid paralysis in his bilateral lower extr emities. He has had some increase in sensation around his abdomen towards his groin and admits to some increased sensation over his anterior thighs greater on the right than the left. He continues to have some sensation in his right great toe and does feel some increase sensation over the toes of the right foot and the top of the right foot. He continues to have paralysis.. They should continue with position change regularly to help prevent decubitus transfer to a bedside chair when possible. 4. When medically stable clear, patient will be planning to be discharged to a spinal cord facility for rehabilitation. They are currently planning for [facility] [place], [place]. Authorization has been obtained. However, the patient is not currently stable for discharge. Due to the fact that this [facility] and is considered inpatient, the patient will be unable to follow-up for further evaluation in the outpatient setting until they are discharged from this [facility] facility. 5. Patient will continue to be seen exam by multiple medical providers for his multiple medical diagnoses. 6. We will plan for cervical x-rays prior to discharge from the hospital. 7. Patient may follow-up with Jesu Villarreal PA-C or Dr. Gideon Noyola at [facility] in 2-3 weeks following discharge from spinal cord rehabilitation facility.
[2025-05-07 10:12] LABS: Glucose,Whole Blood 176 mg/dL (70-110)
[2025-05-07 11:29] LABS: Glucose,Whole Blood 224 mg/dL (70-110)
--- NOTE | 2025-05-07 11:53 | P.PN ---
Subjective Progress Note Date: 05/07/25 Patient seen and examined at bedside with nursing staff. Trach and PEG are working appropriately. Sacral decubitus ulcer noted. Objective - Vital Signs Vital signs: Vital Signs Temp 98.7 F 05/07/25 04:00 Pulse 86 05/07/25 11:30 Resp 22 05/07/25 11:00 BP 136/79 05/07/25 11:00 Pulse Ox 94 L 05/07/25 11:00 FiO2 50 05/07/25 11:17 Intake & Output 05/06/25 05/07/25 05/07/25 18:59 06:59 18:59 Intake Total 1521 900 350 Output Total 1375 990 460 Balance 146 -90 -110 Weight 96.6 kg Intake: IV 691 210 40 0.9@10 90 110 40 Cefepime 2 gm In Sodium 100 100 Chloride 0.9% 100 ml @ 25 mls/hr IVPB Q8H JUAN LUIS Rx#: [id number] Vancomycin 2,250 mg In 501 Sodium Chloride 0.9% 500 ml 500 ml @ 167 mls/hr IVPB Q12H JUAN LUIS Rx#: [id number] Oral 100 Tube Feeding 700 600 310 Other 30 90 Output: Urine 1375 990 460 Other: Voiding Method Indwelling Catheter Indwelling Catheter ABP, PAP, CO, CI - Last Documented Arterial Blood Pressure 145/84 - Respiratory Details: No difficulty with respiration on tracheostomy - Gastrointestinal Gastrointestinal Comment(s): Gastric feeding tube in place - Musculoskeletal Musculoskeletal Comment(s): Sacral decubitus ulcer with eschar formation noted - Labs CBC & Chem 7: 05/07/25 04:45 05/07/25 04:45 Labs: Abnormal Lab Results - Last 24 Hours (Table) 05/03/25 05/06/25 05/06/25 Range/Units 00:12 17:28 23:58 WBC (4.50-10.00) 10*3/uL RBC (4.40-5.60) 10*6/uL Hgb (13.0-17.0) g/dL Hct (39.6-50.0) % MCHC (32.0-37.0) g/dL Immature Gran # (0.00-0.04) 10*3/uL Neutrophils # (Manual) (1.3-7.7) k/uL Metamyelocytes # (Man) (0) k/uL Myelocytes # (Manual) (0) k/uL ABG pCO2 (35-45) mmHg ABG pO2 (83-108) mmHg ABG HCO3 (21-25) mmol/L ABG Total CO2 (19-24) mmol/L ABG O2 Saturation (94-97) % Sodium (137-145) mmol/L Chloride (98-107) mmol/L Carbon Dioxide (22-30) mmol/L Creatinine (0.66-1.25) mg/dL Glucose (74-99) mg/dL POC Glucose (mg/dL) 176 H 222 H 181 H (70-110) mg/dL 05/07/25 05/07/25 05/07/25 Range/Units 04:45 04:45 06:24 WBC 13.35 H (4.50-10.00) 10*3/uL RBC 2.67 L (4.40-5.60) 10*6/uL Hgb 7.9 L (13.0-17.0) g/dL Hct 25.0 L (39.6-50.0) % MCHC 31.6 L (32.0-37.0) g/dL Immature Gran # 0.90 H (0.00-0.04) 10*3/uL Neutrophils # (Manual) 10.94 H (1.3-7.7) k/uL Metamyelocytes # (Man) 0.27 H (0) k/uL Myelocytes # (Manual) 0.13 H (0) k/uL ABG pCO2 (35-45) mmHg ABG pO2 (83-108) mmHg ABG HCO3 (21-25) mmol/L ABG Total CO2 (19-24) mmol/L ABG O2 Saturation (94-97) % Sodium 133 L (137-145) mmol/L Chloride 92 L (98-107) mmol/L Carbon Dioxide 37 H (22-30) mmol/L Creatinine <0.15 L (0.66-1.25) mg/dL Glucose 207 H (74-99) mg/dL POC Glucose (mg/dL) 214 H (70-110) mg/dL 05/07/25 05/07/25 Range/Units 06:37 11:27 WBC (4.50-10.00) 10*3/uL RBC (4.40-5.60) 10*6/uL Hgb (13.0-17.0) g/dL Hct (39.6-50.0) % MCHC (32.0-37.0) g/dL Immature Gran # (0.00-0.04) 10*3/uL Neutrophils # (Manual) (1.3-7.7) k/uL Metamyelocytes # (Man) (0) k/uL Myelocytes # (Manual) (0) k/uL ABG pCO2 60 H (35-45) mmHg ABG pO2 63 L (83-108) mmHg ABG HCO3 39 H (21-25) mmol/L ABG Total CO2 41 H (19-24) mmol/L ABG O2 Saturation 92.7 L (94-97) % Sodium (137-145) mmol/L Chloride (98-107) mmol/L Carbon Dioxide (22-30) mmol/L Creatinine (0.66-1.25) mg/dL Glucose (74-99) mg/dL POC Glucose (mg/dL) 224 H (70-110) mg/dL Microbiology - Last 24 Hours (Table) 03/26/25 15:53 Acid Fast Bacilli Smear - Preliminary Bronchoalviolar Lavage - Left Acid Fast Bacilli Culture - Preliminary 05/03/25 11:00 Gram Stain - Final Bronchial Washings - Right Bronchial Washings Culture - Final Staphylococcus aureus Klebsiella pneumoniae Assessment and Plan Plan: 65-year-old male status post trach and PEG. Both are functioning appropriately. Sacral decubitus ulcer was evaluated. There is eschar formation. While dave ent was lateral, he began to desaturate and would likely not tolerate any procedure at this time. He may require formal debridement in the near future. In the meantime, as he improves from a respiratory standpoint, would recommend local wound care with enzymatic debridement.
--- NOTE | 2025-05-07 13:08 | P.PN ---
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 Wheeler) approximately 2 months ago, migraine headaches, depression. Presented to the emergency department with a chief complaint of sudden onset numbness extending from periumbilical region downwards throughout groin and bilateral lower extremities followed by weakness of bilateral lower extremities. Patient states he was moving some plants at home when he had sudden onset of numbness around his lower abdomen circling around him like a belt that quickly radiated into his groin and into bilateral lower extremities accompanied by weakness of bilateral lower extremities which resulted in his legs giving out from beneath him causing him to fall to the ground. Patient denied having any dizziness or lightheadedness, headache, neck or back pain, or experiencing any pain in his abdomen, groin, or lower extremities. He denies hitting his head during the fall and denies having any loss of consciousness. But reports due to the sudden onset numbness and weakness he was unable to stand back up and had to have his call EMS for transfer to the hospital. Upon arrival to our facility, patient underwent evaluation in the emergency department. Vital signs upon arrival show blood pressure 165/97, heart rate 88, respiratory rate 18, temp 98.8 F, and SpO2 of 97% on room air. CT lumbar spine CT abdomen and pelvis was also negative for acute intra-abdominal process completed showing no evidence for spinal fracture, no evidence for significant spinal canal stenosis revealing severe right L5-S1 neuroforaminal stenosis and moderate bilateral L4-L5 neuroforaminal stenosis, revealing a right middle lobe pulmonary nodule 8 mm, prostamegaly, colonic diverticulosis, and bilateral adrenal myolipoma's. Labs completed and reviewed. CBC unremarkable. BMP showing hyperglycemia with blood glucose of 146. Liver profile normal findings. Urinalysis positive for glucose and ketones but negative for infection. Patient was admitted under services with consultation to neurology and orthospine surgery. MRI lumbar spine was completed showing no definitive evidence of disc herniation or significant spinal canal stenosis revealing minimal disc degeneration with associated osteoarthritic changes. Patient underwent extensive cervical spinal surgery on the evening of 03/20/2025 through 03/21/2025. Subjective: No acute events overnight. Pt still easily desaturates. Required bagging for about 5 min earlier in the day. Can't tolerate bedside debridement of sacral ulcer at the moment, and no urgency to do so either per surgery. Gen: In NAD, non-toxic HEENT: normocephalic, atraumatic, hearing acuity is intant, mucous membranes moist CVS: perfusing all extremities well, no pitting edema, Respiratory: symmetric chest expansion, no accessory muscle use, tracheostomy with ventilator dependence GI: soft, NTTP, ND, : no suprapubic tenderness, no CVA tenderness MSK/Derm: no rashes, cyanosis, sacral decubitus wound, foul smelling, Neuro: CN II-XII intact, 0-5 lower extremity weakness bilaterally, 4+ out of 5 upper extremity motor Assessment and Plan: #. Acute hypoxemic respiratory failure secondary to severe atelectasis and mucous plugging status post bronchoscopy x 2 #. Healthcare acquired Pneumonia secondary to Serratia and Milagros #. Leukocytosis,resolved #. Persistent atelectasis - Patient remains in the ICU, vent dependent, status post trach and PEG -Continue cefepime, vancomycin; micro from sputum growing MSSA and Klebsiella Continue with steroid taper, prednisone 10 mg daily Continue DuoNebs 4 times daily and every 2 hours as needed Continue with Mucomyst, DuoNebs 4 times daily, every 2 hours as needed Encourage incentive spirometry Aggressive pulmonary toileting Monitor CBC #. Cervical myelopathy secondary to severe spinal canal stenosis involving C7-T1 #. Status post extensive cervical decompression with discectomy at C7-T1 and fusion with extension of fusion from C3-C7 with new extension down to T3 #. Severe right L5-S1 neuroforaminal stenosis #. Moderate bilateral L4-L5 neuroforaminal stenosis Orthopedic surgery following status post extensive cervical decompression with dissecting at C7-T1 and fusion with extension of fusion from C3-C7 with new extension down to T3 Continue Prednisone taper as above Completed course of IV cefazolin Continue neurochecks every 4 hours and as needed. Maintain fall precautions Continue Samuels catheter, patient is retaining Continue Unna boot bilaterally to prevent foot drop PT/OT Social work following with regards to disposition #. Type II ckm-tgqyvtk-pabuhytnk diabetes mellitus Hyperglycemia likely secondary to high-dose steroids being administered at this time. Improving. -Lantus 5 units daily, sliding scale insulin #. normocytic anemia, slightly downtrending, continue to monitor #. Hypokalemia, resolved #. Hypomagnesemia, resolved #. Bilateral lower extremity edema, stable #. Thrombocytopenia, stable, resolved # Respiratory acidosis, resolved # Metabolic alkalosis, resolved Hypotension, resolved - Continue to hold antihypertensives Chronic: #. Hypertension #. Hyperlipidemia #. Obstructive sleep apnea #. BPH #. Restless leg syndrome #. Neuropathy DVT ppx: Lovenox Code status: Full code Anticipated discharge place: Pending clinical course Anticipated discharge time: Pending clinical course Objective - Vital Signs Vital signs: Vital Signs Temp 98.7 F 05/07/25 04:00 Pulse 93 05/07/25 12:00 Resp 16 05/07/25 12:00 BP 129/74 05/07/25 12:00 Pulse Ox 97 05/07/25 12:00 FiO2 100 05/07/25 12:00 Intake & Output 05/06/25 05/07/25 05/07/25 18:59 06:59 18:59 Intake Total 1521 900 425 Output Total 1375 990 670 Balance 146 -90 -245 Weight 96.6 kg Intake: IV 691 210 50 0.9@10 90 110 50 Cefepime 2 gm In Sodium 100 100 Chloride 0.9% 100 ml @ 25 mls/hr IVPB Q8H JUAN LUIS Rx#: [id number] Vancomycin 2,250 mg In 501 Sodium Chloride 0.9% 500 ml 500 ml @ 167 mls/hr IVPB Q12H JUAN LUIS Rx#: [id number] Oral 100 Tube Feeding 700 600 375 Other 30 90 Output: Urine 1375 990 670 Other: Voiding Method Indwelling Catheter Indwelling Catheter Indwelling Catheter ABP, PAP, CO, CI - Last Documented Arterial Blood Pressure 125/72 - Labs CBC & Chem 7: 05/07/25 04:45 05/07/25 04:45 Labs: Abnormal Lab Results - Last 24 Hours (Table) 05/03/25 05/06/25 05/06/25 Range/Units 00:12 17:28 23:58 WBC (4.50-10.00) 10*3/uL RBC (4.40-5.60) 10*6/uL Hgb (13.0-17.0) g/dL Hct (39.6-50.0) % MCHC (32.0-37.0) g/dL Immature Gran # (0.00-0.04) 10*3/uL Neutrophils # (Manual) (1.3-7.7) k/uL Metamyelocytes # (Man) (0) k/uL Myelocytes # (Manual) (0) k/uL ABG pCO2 (35-45) mmHg ABG pO2 (83-108) mmHg ABG HCO3 (21-25) mmol/L ABG Total CO2 (19-24) mmol/L ABG O2 Saturation (94-97) % Sodium (137-145) mmol/L Chloride (98-107) mmol/L Carbon Dioxide (22-30) mmol/L Creatinine (0.66-1.25) mg/dL Glucose (74-99) mg/dL POC Glucose (mg/dL) 176 H 222 H 181 H (70-110) mg/dL 05/07/25 05/07/25 05/07/25 Range/Units 04:45 04:45 06:24 WBC 13.35 H (4.50-10.00) 10*3/uL RBC 2.67 L (4.40-5.60) 10*6/uL Hgb 7.9 L (13.0-17.0) g/dL Hct 25.0 L (39.6-50.0) % MCHC 31.6 L (32.0-37.0) g/dL Immature Gran # 0.90 H (0.00-0.04) 10*3/uL Neutrophils # (Manual) 10.94 H (1.3-7.7) k/uL Metamyelocytes # (Man) 0.27 H (0) k/uL Myelocytes # (Manual) 0.13 H (0) k/uL ABG pCO2 (35-45) mmHg ABG pO2 (83-108) mmHg ABG HCO3 (21-25) mmol/L ABG Total CO2 (19-24) mmol/L ABG O2 Saturation (94-97) % Sodium 133 L (137-145) mmol/L Chloride 92 L (98-107) mmol/L Carbon Dioxide 37 H (22-30) mmol/L Creatinine <0.15 L (0.66-1.25) mg/dL Glucose 207 H (74-99) mg/dL POC Glucose (mg/dL) 214 H (70-110) mg/dL 05/07/25 05/07/25 Range/Units 06:37 11:27 WBC (4.50-10.00) 10*3/uL RBC (4.40-5.60) 10*6/uL Hgb (13.0-17.0) g/dL Hct (39.6-50.0) % MCHC (32.0-37.0) g/dL Immature Gran # (0.00-0.04) 10*3/uL Neutrophils # (Manual) (1.3-7.7) k/uL Metamyelocytes # (Man) (0) k/uL Myelocytes # (Manual) (0) k/uL ABG pCO2 60 H (35-45) mmHg ABG pO2 63 L (83-108) mmHg ABG HCO3 39 H (21-25) mmol/L ABG Total CO2 41 H (19-24) mmol/L ABG O2 Saturation 92.7 L (94-97) % Sodium (137-145) mmol/L Chloride (98-107) mmol/L Carbon Dioxide (22-30) mmol/L Creatinine (0.66-1.25) mg/dL Glucose (74-99) mg/dL POC Glucose (mg/dL) 224 H (70-110) mg/dL Microbiology - Last 24 Hours (Table) 03/26/25 15:53 Acid Fast Bacilli Smear - Preliminary Bronchoalviolar Lavage - Left Acid Fast Bacilli Culture - Preliminary 05/03/25 11:00 Gram Stain - Final Bronchial Washings - Right Bronchial Washings Culture - Final Staphylococcus aureus Klebsiella pneumoniae
--- NOTE | 2025-05-07 14:53 | P.PN ---
Subjective Progress Note Date: 05/07/25 Principal diagnosis: Acute hypoxic respiratory failure with left lower lobe atelectasis, pneumonia, and left lung collapse/opacification. This is a 64-year-old male patient was undergone a C 7 T1 discectomy, done posteriorly with wide laminectomy and foraminotomy and partial facetectomy. The patient was experiencing cervical myelopathy with severe bilateral lower extremity weakness and T8 paresthesia. The patient has previous history of cervical spine fusion C2-C7. The patient was found to have a large herniated disc C7-T1 with severe spinal cord stenosis and based on that the patient was taken to the operating room and underwent a C7-T1 discectomy on 03/21/2025. The patient has become progressively more hypoxic. Currently he is on Airvo at 60 L and FiO2 of 90%. His current pulse ox is in order of 90 to 93%. Slightly tachycardic. Blood pressure is also soft at 89/62. Based on worsening hypoxemia, CT of the chest was done and the patient was found to have s ignificant volume loss in the left lung compared to the right. There is marked volume loss and atelectasis in addition to an area of consolidation in the left upper lobe and elevation of the left hemidiaphragm in addition to significant gastric distention. The patient has dilated air in the stomach and colon. Blood work shows a white cell count of 14, hemoglobin 12.4 and a platelet count of 175. Sodium levels at 137, bicarb is at 23, potassium level is at 4.3 with a chloride of 102. BUN 23 with a creatinine of 0.9. The patient is resting comfortably in bed. He is wearing a hard neck collar. He is reporting some mild shortness of breath even at rest. He is tolerating the Airvo. He is currently on IV Solu-Medrol 100 mg every 6 hours post neck surgery. He is also on IV fluids with l normal saline at rate of 75 cc an hour. Comorbidities include hypertension, hyperlipidemia, diabetes mellitus type 2, obstructive sleep apnea maintained on CPAP therapy on outpatient basis On today's evaluation of 03/23/25, patient is still on the BiPAP pressure of 14 over 6 cm of water and FiO2 has been weaned down to 65%. The patient's abdomen seems to be less distended. He had 2 bowel movements and the patient is also passing flatus. Fluid balance +223 cc over the past 24 hours and the patient remains on normal saline at a rate of 75 cc an hour. Neurologically, unchanged and the patient has absent motor function lower extremities bilaterally. He is on broad-spectrum antibiotics and the patient is currently on Zosyn vancomycin combination. Follow-up chest x-ray shows some interval improvement in aeration in the left lung base. Lung volumes in the left remain small and there is some ongoing atelectatic change at left lower lobe. The patient's white cell count is 11, hemoglobin 11.3 and a platelet count of 180. Electrolytes are all within normal limits. BUN is 40 with a creatinine of 1.05. The patient is able to communicate. He is alert and awake. Denies having any specific complaints. Still wearing a hard neck collar. 03/24/2025, the patient is laying flat in bed and is currently on a BiPAP at a pressure of 14/6 with an FiO2 of 75% overnight and Airvo during the day. He remains on normal saline at rate of 75 cc an hour. Chest x-ray still showing left lower lobe consolidation. Abdomen is soft. He had 3 bowel movements. He is on Lantus insulin. The patient's mentation is awake and alert. Nevertheless, he continues to have profound weakness in the lower extremity and he remains paraplegic. Remains on IV Solu-Medrol. Blood sugars are elevated and he remains on Lantus 15 units daily and NovoLog sliding scale coverage. The white cell count 11.9, hemoglobin 11.3 and a platelet count of 201. BUN 34 with a creatinine of 0.8. Sodium levels at 136. Blood sugars up to 82. He is postop day #4 following an open decompression and fusion of C7-T1 surgery was done due to a large disc herniation and spinal cord injury. He is also status post fusion and extension from prior fusion C2-7 and near extension fusion down to T3. He is unable to move his legs still. Samuels catheter still in place. Using incentive spirometer. Afebrile. 03/25/2025, the patient is being seen for a follow-up. Repeat chest x-ray was done and shows ongoing volume loss and atelectasis in the left lung base. I also performed an ultrasound of the chest and there is no sizable pleural effusion for thoracentesis. Findings are more consistent with consolidation/atelectasis. Remains on Airvo at 60 L and FiO2 of 90%. Incentive spirometer. Overnight, using BiPAP pressure of 14/6 and use of water with an FiO2 of 80%. Remains in normal Saint rate of 75 cc an hour. Fluid balance is +550 cc over the past 24 hours. No respiratory difficulties. The white cell count of 12. Hemoglobin is 10.9. Platelet count is 210. BUN is 32 with a creatinine of 0.8. Sodium levels at 138 and potassium levels of 4.2. Remains on Zosyn and vancomycin. Neurologically unchanged and the patient continues to be paraplegic. Patient was seen today on 03/26/2025, patient remains in the ICU, he is on Airvo at 90% and 60 L flow, patient is generally weak, alert and appropriate, IV fluid at 75 cc/h, continues to have weakness from the waist down. Patient had cervical spine surgery postoperative day #6. Chest x-ray showed complete opacification of the left lung consistent with mucous plugging involving the left mainstem bronchus. Hence I discussed this with the patient today, patient needs to be bronchoscope, needs to have extraction of mucous plugs. Considering the patient is marginal at best, will need to be intubated and placed on mechanical ventilation for the procedure. Based on the findings we will decide whether the patient needs to remain on mechanical ventilation after bronchoscopy or not. Most likely he will remain ventilated after the bronchoscopy. Patient has a bit of leukocytosis with WBC of 13.3 hemoglobin 11.3 electrolytes are normal renal profile is normal. Nasal screen has been positive for MSSA not MRSA. Patient was seen today on 03/27/2025, patient remains intubated and mechanically ventilated, kept him on mechanical ventilation after his bronchoscopy yesterday and suctioning of mucous plugs from the left mainstem bronchus and left lung. Left lung continues to show good inflation, minimal left lower lobe atelectasis, patient is on assist-control rate of 18 tidal volume 550 FiO2 50% and PEEP of 8 ABG today showed a pO2 of 84 pCO2 37 pH of 7.41. Patient is also on propofol at 50 mg/kg/min IV fluids at 75 cc/h on antibiotics in the form of Zosyn and vancomycin, antibiotics to be changed once we have the final culture from the BAL. I plan to wean the patient today, possibly consider placing him on BiPAP 12/6/50% assuming he tolerates weaning and he passes his weaning parameters. Patient is awake, follows instructions, although he is still on propofol. WBC count is 14.48 hemoglobin 10.8 electrolytes are normal, BUN is 29 creatinine 0.7 Patient was seen today on 03/28/2025, patient was extubated yesterday, had to be placed on BiPAP to avoid atelectasis again of the left lung and mucous plugging patient has very poor cough, cannot clear his secretions, and his chest x-ray today is beginning to show early atelectasis in the left lower lobe, questionable effusion but ultrasound did not show much fluid. I believe it is all a picture of atelectasis involving the left lower lobe and I am afraid that the patient may have reopacification of the left lung in the next 24 hours. In the meantime I will continue patient on BiPAP, will recommend chest PT, N- acetylcysteine and albuterol, Mucinex, and hopefully we can avoid another bronchoscopy. Otherwise if the patient opacifies left lung again, may have to be bronchoscope again. And if we do I will keep him longer on mechanical ventilation. Patient remains on antibiotics/broad-spectrum he is WBC count is 19.36 hemoglobin is 10.7 electrolytes are normal renal profile is normal. Seen today on 03/29/2025, patient remains in the ICU, chest x-ray is showing wo rsening and he is again having near complete opacification of the left lung. Apparently the patient is developing mucous plugging again involving the left mainstem bronchus and the cultures from his last BAL came back showing Serratia marcescens. Considering the patient's critical illness, I am transitioning Zosyn to Merrem for better coverage of Serratia. Sensitivity is still pending on the organism. But empirically Merrem would be a better choice for Serratia marcescens for the time being. Patient still on BiPAP at 14/6/60%, and considering his abnormal chest x-ray, I am recommending bronchoscopy again and this has to be again done with the patient intubated as his O2 saturation is ma rginal even on 60% BiPAP. Patient looks comfortable, he is not in distress. Continues to have leukocytosis with WC of 23.23 hemoglobin 11.2 basic metabolic profile is normal renal profile is normal continues to have cervical collar in place. Patient was seen today on 03/30/2025, remains in the ICU, intubated and mechanically ventilated, patient is on assist-control rate of 18 tidal volume 550 FiO2 50% PEEP of 10 ABG showed a pO2 of 122 pCO2 37 pH of 7.47 hence FiO2 was cut down to 40%. Remains on Merrem remains on propofol at 40 mcg/kg/min and on Versed 1 mg/h. Patient is sedated, does not seem to be in any distress, chest x-ray is showing slight worsening in the left lower lobe, but not severe enough to justify bronchoscopy again. However considering this I am not planning to extubate the patient today as if extubated he will most likely end up requiring bronchoscopy again. Patient had positive cultures for Serratia marcescens, and is now on Merrem. Labs today were reviewed patient has leukocytosis with WBC count of 19.7 hemoglobin 11.3, basic metabolic profile is normal renal profile is normal patient is on nutritional support/enteral feeding. Chest x-ray today is a bit worrisome hence no plans to wean and extubate today. Patient was seen today on 03/31/2025, remains in the ICU, intubated and mechanically ventilated. Patient is on assist-control rate of 18 tidal volume 550 FiO2 40% and PEEP of 10 ABG on 45% showed a pO2 of 86 pCO2 42 pH of 7.44. Chest x-ray is showing left lower lobe atelectasis/airspace disease involving the left lower lobe hence I was concerned about recollapsing of the left lung, bronchoscopy was performed, and the secretions noted in the left lower lobe with were very minimal. Did not require lavage, there was not enough secretions to d o lavage. Hence the patient was kept intubated mechanically ventilated, he is now on propofol at 45 mcg/kg/min is on Versed 1 mg/h and is receiving vital HP at 32 cc/h. Remains on fluconazole, remains on Merrem. Continues to have a bit of leukocytosis with WBC of 19.12 hemoglobin 11.7 electrolytes are normal, renal profile is normal. Patient was seen today on 04/01/2025, remains in the ICU, remains intubated and mechanically ventilated. Patient is sedated with propofol at 45 mcg/kg/min and Versed 1 mg/h. Patient is calm he is on assist-control mode of mechanical ventilation rate 18 tidal volume 550 FiO2 40% PEEP that ABG showed a PO2 of 91 pCO2 37 pH of 7.52 chest x-ray showed improvement in his left lower lobe atelectasis but he does have bilateral pleural effusions has I recommended a dose of Lasix 40 mg IV push x 1 was given. Considering his ABG is better considering his chest x-ray is showing improvement, I recommended a trial of weaning. However on pressure support and CPAP, his ABG was marginal with a pO2 of 61 pCO2 40 pH of 7.51, hence I felt the patient is not ready to be weaned especially with relatively low pO2 of 61. And I felt the patient should be back on sedation and back on assist-control mode of mechanical ventilation. In the meantime patient remains on nutritional support, remains in GI prophylaxis: And again he received a dose of Lasix earlier today for what seems to be bilateral pleural effusions. Continues to have leukocytosis with WBC count of 19.4 hemoglobin 11.5 electrolytes are normal, renal profile is normal blood sugar is 245 On 05/05/2025, the patient is being seen for a follow-up. The patient had bronchoscopies 2 days in the row and another is bronchoscopy was done yesterday where mucous plugs were again aspirated although the secretions were less abundant. The patient clinically is unchanged. Arousable. No sedation. Still on a mechanical ventilator at rate of 20, tidal volume of 400, FiO2 of 60% with a PEEP of 10. Blood gas with a pH of 7.47 with a PCO2 of 53 and PO2 of 119. Receiving enteral feeding for nutritional support and the patient is currently on vital HP. He is having liquidy stool and the patient has a fecal management system in place. Based on the most recent cultures and his sputum growing Staph aureus and Klebsiella, the patient was kept on IV cefepime. Patient is also on vancomycin. The patient has been afebrile. Hemodynamically stable. The white cell count is currently at 17.6 with a hemoglobin 8.4 and a platelet count of 205. Sodium is at 136, bicarbonate 40, BUN is 20 with a creatinine of 0.2. LFTs are normal. Blood sugars are being monitored. Neurologically unchanged. Remains on 5 mg of prednisone. On 05/06/2025, the patient is being seen for a follow-up. The patient is off sedation. The patient is following commands. Arousable. Currently on assist- control mode rate of 20, tidal volume of 400, FiO2 of 80% with a PEEP of 10. Blood gas showed a pH of 7.43 with a PCO2 of 59 and PO2 148. No significant changes on chest x-ray. The patient remains on vital HP at rate of 50 cc an hour. Hemodynamically stable. Afebrile. Currently on IV cefepime as the patient's sputum sample and bronchoscopy and lavage from the right lung showed MSSA and Klebsiella. Continues to receive enteral feeding for nutritional support. Neurologically unchanged. Continues to have episodes of oxygen saturation and mucous plugging and this is becoming a daily occurrence. Still on Lovenox 40 mg subcu for DVT prophylaxis. Still on Lantus insulin 5 units daily and sliding scale coverage. Still on bronchodilators. Prednisone has been weaned down to 10 mg p.o. daily. Patient was seen today on 05/07/2025, patient remains marginal at best. Still on relatively high FiO2 FiO2 70%, still on PEEP of 10 rate 20 tidal volume 400, patient has now MSSA and Klebsiella pneumonia in the sputum remains on vancomycin and cefepime. ABG today showed a pO2 of 63 pCO2 60 pH of 7.42, overall the patient is about the same, continues to have intermittent episodes of profound hypoxia requiring high FiO2 and high PEEP. Today I increased his PEEP to 12 hoping to cut down his FiO2 below 70%, but this could not happen as the patient desaturated and he had to go back high on FiO2. Patient had a tracheostomy and PEG tube placement on 04/26. He will eventually require placement but cannot get in place with relatively high FiO2 and high PEEP required. Chest x-ray continues to show atelectasis/pneumonia involving the right lower lobe, his left lower lobe seems to be better at this time. Labs from today were all reviewed chest x-ray was reviewed and at this point not much to be added except continue antibiotics and continue daily trials of getting FiO2 down or PEEP down or both. Objective - Vital Signs Vital signs: Vital Signs Temp 98.7 F 05/07/25 04:00 Pulse 96 05/07/25 13:00 Resp 21 05/07/25 13:00 BP 147/90 05/07/25 13:00 Pulse Ox 100 05/07/25 13:00 FiO2 100 05/07/25 13:00 Intake & Output 06/05/07/25 05/07/25 18:59 06:59 18:59 Intake Total 1521 900 550 Output Total 1375 990 670 Balance 146 -90 -120 Weight 96.6 kg Intake: IV 691 210 60 0.9@10 90 110 60 Cefepime 2 gm In Sodium 100 100 Chloride 0.9% 100 ml @ 25 mls/hr IVPB Q8H JUAN LUIS Rx#: [id number] Vancomycin 2,250 mg In 501 Sodium Chloride 0.9% 500 ml 500 ml @ 167 mls/hr IVPB Q12H JUAN LUIS Rx#: [id number] Oral 100 Tube Feeding 700 600 490 Other 30 90 Output: Urine 1375 990 670 Other: Voiding Method Indwelling Catheter Indwelling Catheter Indwelling Catheter ABP, PAP, CO, CI - Last Documented Arterial Blood Pressure 154/89 - Exam General: Reveals 64-year-old white male, intubated mechanically ventilated Derm: No rashes. Head: atraumatic, normocephalic Eyes: EOMI, anicteric sclera Mouth: Moist mucous membranes, no evidence of lesions Cardiovascular: Normal S1 S2 reg, no murmur, rubs, or gallops Lungs: Diminished breath sounds at the bases no rhonchi no wheezes Abdominal: soft, a bowel sounds are present Extremities: no gross muscle atrophy, no edema, no contractures, Neuro: Alert oriented x 3 no gross focal deficit, patient is noted to be profoundly weak Psych: Normal mood affect and mental status examination - Labs CBC & Chem 7: 05/07/25 04:45 05/07/25 04:45 Labs: Abnormal Lab Results - Last 24 Hours (Table) 05/03/25 05/06/25 05/06/25 Range/Units 00:12 17:28 23:58 WBC (4.50-10.00) 10*3/uL RBC (4.40-5.60) 10*6/uL Hgb (13.0-17.0) g/dL Hct (39.6-50.0) % MCHC (32.0-37.0) g/dL Immature Gran # (0.00-0.04) 10*3/uL Neutrophils # (Manual) (1.3-7.7) k/uL Metamyelocytes # (Man) (0) k/uL Myelocytes # (Manual) (0) k/uL ABG pCO2 (35-45) mmHg ABG pO2 (83-108) mmHg ABG HCO3 (21-25) mmol/L ABG Total CO2 (19-24) mmol/L ABG O2 Saturation (94-97) % Sodium (137-145) mmol/L Chloride (98-107) mmol/L Carbon Dioxide (22-30) mmol/L Creatinine (0.66-1.25) mg/dL Glucose (74-99) mg/dL POC Glucose (mg/dL) 176 H 222 H 181 H (70-110) mg/dL 05/07/25 05/07/25 05/07/25 Range/Units 04:45 04:45 06:24 WBC 13.35 H (4.50-10.00) 10*3/uL RBC 2.67 L (4.40-5.60) 10*6/uL Hgb 7.9 L (13.0-17.0) g/dL Hct 25.0 L (39.6-50.0) % MCHC 31.6 L (32.0-37.0) g/dL Immature Gran # 0.90 H (0.00-0.04) 10*3/uL Neutrophils # (Manual) 10.94 H (1.3-7.7) k/uL Metamyelocytes # (Man) 0.27 H (0) k/uL Myelocytes # (Manual) 0.13 H (0) k/uL ABG pCO2 (35-45) mmHg ABG pO2 (83-108) mmHg ABG HCO3 (21-25) mmol/L ABG Total CO2 (19-24) mmol/L ABG O2 Saturation (94-97) % Sodium 133 L (137-145) mmol/L Chloride 92 L (98-107) mmol/L Carbon Dioxide 37 H (22-30) mmol/L Creatinine <0.15 L (0.66-1.25) mg/dL Glucose 207 H (74-99) mg/dL POC Glucose (mg/dL) 214 H (70-110) mg/dL 05/07/25 05/07/25 Range/Units 06:37 11:27 WBC (4.50-10.00) 10*3/uL RBC (4.40-5.60) 10*6/uL Hgb (13.0-17.0) g/dL Hct (39.6-50.0) % MCHC (32.0-37.0) g/dL Immature Gran # (0.00-0.04) 10*3/uL Neutrophils # (Manual) (1.3-7.7) k/uL Metamyelocytes # (Man) (0) k/uL Myelocytes # (Manual) (0) k/uL ABG pCO2 60 H (35-45) mmHg ABG pO2 63 L (83-108) mmHg ABG HCO3 39 H (21-25) mmol/L ABG Total CO2 41 H (19-24) mmol/L ABG O2 Saturation 92.7 L (94-97) % Sodium (137-145) mmol/L Chloride (98-107) mmol/L Carbon Dioxide (22-30) mmol/L Creatinine (0.66-1.25) mg/dL Glucose (74-99) mg/dL POC Glucose (mg/dL) 224 H (70-110) mg/dL Microbiology - Last 24 Hours (Table) 03/26/25 15:53 Acid Fast Bacilli Smear - Preliminary Bronchoalviolar Lavage - Left Acid Fast Bacilli Culture - Preliminary 05/03/25 11:00 Gram Stain - Final Bronchial Washings - Right Bronchial Washings Culture - Final Staphylococcus aureus Klebsiella pneumoniae Assessment and Plan Assessment: Impression Acute hypoxic respiratory failure, multifactorial. The patient has developed postoperative atelectasis of the left lower lobe and the patient has significant elevation in volume loss in the left lung compared to the right. Previous bronchoscopy and sputum analysis was positive for Serratia marcescens. Nasal culture is positive for MSSA and the patient completed the course of antibiotics. He has a very weak cough and poor ability to perform pulmonary toileting. T8 spinal cord injury. The patient has severe spinal canal stenosis at the level of C7/T1 with motor weakness in the lower extremities in addition to myelopathy. The patient is post C7/T1 discectomy with decompression and fusion and the patient also had extension of a previous C2/7 fusion to T3. This was done back on March 21, 2025 Diabetes mellitus type 2, with steroid-induced hyperglycemia Hypotension, rule out septic versus neurogenic hypotension post spine surgery Sinus tachycardia Hyperlipidemia Seroma in the posterior soft tissues along the length of the skin jarad, spinal surgeries following Bilateral lower extremity weakness, ongoing motor weakness in the lower extremities bilaterally with absent motor function at this point with bilateral foot drop. Patient's sensations in the lower limbs have improved, but now patient is completely paraplegic. T8 p spinal cord injury with motor paralysis lower extremities bilaterally with absent sensation. He does have some feelings in his lower abdomen towards the groin. History of prior cervical fusion C3-C7 History of severe L5-S1 neuroforaminal stenosis Purulent secretions around the tracheostomy stoma, with positive sputum cultures, and respiratory secretion have improved and the patient has required [id number] bronchoscopies and therapeutic airway suctioning and removal of mucous plugs. The patient continues to have episodes of mucous plugging with episodes of desaturation and this has become a daily occurrence and sometimes several episodes a day. His last bronchoscopy was on 05/[address] Acosta. Cultures indicating staph possibly MSSA in addition to Klebsiella. Patient remains on cefepime Recommendation: Continue to monitor in the ICU Continue ventilatory support try to address FiO2 down and PEEP down if possible for eventual placement in [facility] Continue present supportive care measures Continue antibiotics as per ID on the case Continue incentive spirometry Continue chest physiotherapy Continue albuterol and Mucomyst Continues to have extremely poor prognosis and remains critically ill Critical care time is 33 minutes Patient is not quite ready to transfer to [facility] care specialty as he remains r elatively critically ill Will continue to follow Time with Patient: Greater than 30
[2025-05-07 17:47] LABS: Glucose,Whole Blood 254 mg/dL (70-110)
[2025-05-08 00:02] LABS: Glucose,Whole Blood 191 mg/dL (70-110)
[2025-05-08 00:11] LABS: Glucose,Whole Blood 194 mg/dL (70-110)
--- NOTE | 2025-05-08 01:47 | XR ---
EXAM: XR Chest, 1 View CLINICAL HISTORY: ITS.REASON XR Reason: SOB TECHNIQUE: Frontal view of the chest. COMPARISON: No relevant prior studies available. IMPRESSION: Right pleural effusion. Right basilar opacity.
[2025-05-08] MEDS: VANCOMYCIN TROUGH DUE 1 EACH MISC MISCELLANE ONE (03:18)
[2025-05-08 03:43] LABS: HCT 27.4 % (39.6-50.0); HGB 8.4 g/dL (13.0-17.0); MCH 29.0 pg (27.0-32.0); MCHC 30.7 g/dL (32.0-37.0); MCV 94.5 fL (80.0-97.0); Platelet Count 202 10*3/uL (140-440); RBC 2.90 10*6/uL (4.40-5.60); RDW 14.1 % (11.5-14.5); WBC 14.38 10*3/uL (4.50-10.00)
[2025-05-08] MEDS: VANCOMYCIN 2,000 MG in SODIUM CHLORIDE 0.9% 500 ML 500 ML IVPB SCH ×2 (04:00→16:29)
[2025-05-08 04:02] LABS: African American GFR (CKD) >90 (>60 ml/min/1.73 sqM); Non-African American GFR(CKD) >90 (>60 ml/min/1.73 sqM)
[2025-05-08 05:06] LABS: ABG HCO3 38 mmol/L (21-25); ABG PCO2 56 mmHg (35-45); ABG PH 7.45 (7.35-7.45); ABG PO2 177 mmHg (83-108); ABG TCO2 40 mmol/L (19-24); Allen Test Performed? Yes
[2025-05-08 05:53] LABS: Glucose,Whole Blood 174 mg/dL (70-110)
[2025-05-08 06:59] LABS: ALT 63 U/L (4-49); AST 22 U/L (17-59); Albumin 2.6 g/dL (3.5-5.0); Alkaline Phosphatase 62 U/L (38-126); Anion Gap 4 mmol/L; Blood Urea Nitrogen 17 mg/dL (9-20); Calcium 8.9 mg/dL (8.4-10.2); Carbon Dioxide 37 mmol/L (22-30); Chloride 92 mmol/L (98-107); Glucose 191 mg/dL (74-99); Potassium 4.2 mmol/L (3.5-5.1); Sodium 133 mmol/L (137-145); Total Protein 5.0 g/dL (6.3-8.2)
[2025-05-08 07:47] LABS: Lymphocytes # (M) 1.01 k/uL (1.0-4.8); Metamyelocytes # (M) 1.73 k/uL (0); Monocytes # (M) 0.14 k/uL (0-1.0); Neutrophils # (M) 11.50 k/uL (1.3-7.7); Neutrophils % (M) 64 %; Total Cells Counted 100
[2025-05-08 11:19] LABS: Glucose,Whole Blood 197 mg/dL (70-110)
[2025-05-08 11:38] VITALS: BMI 34.2
--- NOTE | 2025-05-08 12:33 | P.PN ---
Progress Note - Text Progress Note Date: 05/08/25 The patient is seen and examined again. I saw him yesterday and again today. His status is difficult in terms of his respiratory function. He remains on the vent through his trach. He is managing closely with critical care in regards to his pulmonary function and his status. He continues antibiotics for his pneumonia and requires repetitive suction for obstructions through his respiratory tree. They continue to make decisions based on his function and imaging for potential repeated bronchoscopy. From a neurologic status it is extremities that remains unchanged He is continuing management and wound care as per surgery. His situation is certainly dire as it has been 7 weeks since his surgical intervention. He is continuing his medical management and potential rehab.
--- NOTE | 2025-05-08 14:20 | P.PN ---
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 Wheeler) approximately 2 months ago, migraine headaches, depression. Presented to the emergency department with a chief complaint of sudden onset numbness extending from periumbilical region downwards throughout groin and bilateral lower extremities followed by weakness of bilateral lower extremities. Patient states he was moving some plants at home when he had sudden onset of numbness around his lower abdomen circling around him like a belt that quickly radiated into his groin and into bilateral lower extremities accompanied by weakness of bilateral lower extremities which resulted in his legs giving out from beneath him causing him to fall to the ground. Patient denied having any dizziness or lightheadedness, headache, neck or back pain, or experiencing any pain in his abdomen, groin, or lower extremities. He denies hitting his head during the fall and denies having any loss of consciousness. But reports due to the sudden onset numbness and weakness he was unable to stand back up and had to have his call EMS for transfer to the hospital. Upon arrival to our facility, patient underwent evaluation in the emergency department. Vital signs upon arrival show blood pressure 165/97, heart rate 88, respiratory rate 18, temp 98.8 F, and SpO2 of 97% on room air. CT lumbar spine CT abdomen and pelvis was also negative for acute intra-abdominal process completed showing no evidence for spinal fracture, no evidence for significant spinal canal stenosis revealing severe right L5-S1 neuroforaminal stenosis and moderate bilateral L4-L5 neuroforaminal stenosis, revealing a right middle lobe pulmonary nodule 8 mm, prostamegaly, colonic diverticulosis, and bilateral adrenal myolipoma's. Labs completed and reviewed. CBC unremarkable. BMP showing hyperglycemia with blood glucose of 146. Liver profile normal findings. Urinalysis positive for glucose and ketones but negative for infection. Patient was admitted under services with consultation to neurology and orthospine surgery. MRI lumbar spine was completed showing no definitive evidence of disc herniation or significant spinal canal stenosis revealing minimal disc degeneration with associated osteoarthritic changes. Patient underwent extensive cervical spinal surgery on the evening of 03/20/2025 through 03/21/2025. Subjective: No acute events overnight. Pt still easily desaturates. Gen: In NAD, non-toxic HEENT: normocephalic, atraumatic, hearing acuity is intant, mucous membranes moist CVS: perfusing all extremities well, no pitting edema, Respiratory: symmetric chest expansion, no accessory muscle use, tracheostomy with ventilator dependence GI: soft, NTTP, ND, : no suprapubic tenderness, no CVA tenderness MSK/Derm: no rashes, cyanosis, sacral decubitus wound, foul smelling, Neuro: CN II-XII intact, 0-5 lower extremity weakness bilaterally, 4+ out of 5 upper extremity motor Assessment and Plan: #. Acute hypoxemic respiratory failure secondary to severe atelectasis and muc ous plugging status post bronchoscopy x 2 #. Healthcare acquired Pneumonia secondary to Serratia and Milagros #. Leukocytosis,resolved #. Persistent atelectasis - Patient remains in the ICU, vent dependent, status post trach and PEG -Continue cefepime, vancomycin; micro from sputum growing MSSA and Klebsiella Continue with steroid taper, prednisone 10 mg daily Continue DuoNebs 4 times daily and every 2 hours as needed Continue with Mucomyst, DuoNebs 4 times daily, every 2 hours as needed Encourage incentive spirometry Aggressive pulmonary toileting Monitor CBC #. Cervical myelopathy secondary to severe spinal canal stenosis involving C7-T1 #. Status post extensive cervical decompression with discectomy at C7-T1 and fusion with extension of fusion from C3-C7 with new extension down to T3 #. Severe right L5-S1 neuroforaminal stenosis #. Moderate bilateral L4-L5 neuroforaminal stenosis Orthopedic surgery following status post extensive cervical decompression with dissecting at C7-T1 and fusion with extension of fusion from C3-C7 with new extension down to T3 Continue Prednisone taper as above Completed course of IV cefazolin Continue neurochecks every 4 hours and as needed. Maintain fall precautions Continue Samuels catheter, patient is retaining Continue Unna boot bilaterally to prevent foot drop PT/OT Social work following with regards to disposition #. Type II [id number] diabetes mellitus Hyperglycemia likely secondary to high-dose steroids being administered at this time. Improving. -Lantus 5 units daily, sliding scale insulin #. normocytic anemia, slightly downtrending, continue to monitor #. Hypokalemia, resolved #. Hypomagnesemia, resolved #. Bilateral lower extremity edema, stable #. Thrombocytopenia, stable, resolved # Respiratory acidosis, resolved # Metabolic alkalosis, resolved Hypotension, resolved - Continue to hold antihypertensives Chronic: #. Hypertension #. Hyperlipidemia #. Obstructive sleep apnea #. BPH #. Restless leg syndrome #. Neuropathy DVT ppx: Lovenox Code status: Full code Anticipated discharge place: Pending clinical course Anticipated discharge time: Pending clinical course Objective - Vital Signs Vital signs: Vital Signs Temp 98.3 F 05/08/25 11:00 Pulse 90 05/08/25 13:14 Resp 20 05/08/25 13:14 BP 125/68 05/08/25 11:00 Pulse Ox 100 05/08/25 13:00 FiO2 60 05/08/25 13:16 Intake & Output 05/07/25 05/08/25 05/08/25 18:59 06:59 18:59 Intake Total 760 810 360 Output Total 1195 1245 900 Balance -435 -435 -540 Weight 99 kg 99 kg Intake: IV 110 120 60 0.9@10 110 120 60 Tube Feeding 650 600 300 Other 90 Output: Urine 1195 1245 900 Other: Voiding Method Indwelling Catheter Indwelling Catheter Indwelling Catheter ABP, PAP, CO, CI - Last Documented Arterial Blood Pressure 125/68 - Labs CBC & Chem 7: 05/08/25 03:20 05/08/25 03:20 Labs: Abnormal Lab Results - Last 24 Hours (Table) 05/07/25 05/08/25 05/08/25 Range/Units 17:45 00:00 00:10 WBC (4.50-10.00) 10*3/uL RBC (4.40-5.60) 10*6/uL Hgb (13.0-17.0) g/dL Hct (39.6-50.0) % MCHC (32.0-37.0) g/dL Immature Gran # (0.00-0.04) 10*3/uL Neutrophils # (Manual) (1.3-7.7) k/uL Metamyelocytes # (Man) (0) k/uL ABG pCO2 (35-45) mmHg ABG pO2 (83-108) mmHg ABG HCO3 (21-25) mmol/L ABG Total CO2 (19-24) mmol/L ABG O2 Saturation (94-97) % Hemoglobin (13.0-17.5) gm/dL Sodium (137-145) mmol/L Chloride (98-107) mmol/L Carbon Dioxide (22-30) mmol/L Creatinine (0.66-1.25) mg/dL Glucose (74-99) mg/dL POC Glucose (mg/dL) 254 H 191 H 194 H (70-110) mg/dL ALT (4-49) U/L Total Protein (6.3-8.2) g/dL Albumin (3.5-5.0) g/dL 05/08/25 05/08/25 05/08/25 Range/Units 03:20 03:20 05:01 WBC 14.38 H (4.50-10.00) 10*3/uL RBC 2.90 L (4.40-5.60) 10*6/uL Hgb 8.4 L (13.0-17.0) g/dL Hct 27.4 L (39.6-50.0) % MCHC 30.7 L (32.0-37.0) g/dL Immature Gran # 1.16 H (0.00-0.04) 10*3/uL Neutrophils # (Manual) 11.50 H (1.3-7.7) k/uL Metamyelocytes # (Man) 1.73 H (0) k/uL ABG pCO2 56 H (35-45) mmHg ABG pO2 177 H (83-108) mmHg ABG HCO3 38 H (21-25) mmol/L ABG Total CO2 40 H (19-24) mmol/L ABG O2 Saturation 100.0 H (94-97) % Hemoglobin 8.7 L (13.0-17.5) gm/dL Sodium 133 L (137-145) mmol/L Chloride 92 L (98-107) mmol/L Carbon Dioxide 37 H (22-30) mmol/L Creatinine <0.15 L (0.66-1.25) mg/dL Glucose 191 H (74-99) mg/dL POC Glucose (mg/dL) (70-110) mg/dL ALT 63 H (4-49) U/L Total Protein 5.0 L (6.3-8.2) g/dL Albumin 2.6 L (3.5-5.0) g/dL 05/08/25 05/08/25 Range/Units 05:51 11:18 WBC (4.50-10.00) 10*3/uL RBC (4.40-5.60) 10*6/uL Hgb (13.0-17.0) g/dL Hct (39.6-50.0) % MCHC (32.0-37.0) g/dL Immature Gran # (0.00-0.04) 10*3/uL Neutrophils # (Manual) (1.3-7.7) k/uL Metamyelocytes # (Man) (0) k/uL ABG pCO2 (35-45) mmHg ABG pO2 (83-108) mmHg ABG HCO3 (21-25) mmol/L ABG Total CO2 (19-24) mmol/L ABG O2 Saturation (94-97) % Hemoglobin (13.0-17.5) gm/dL Sodium (137-145) mmol/L Chloride (98-107) mmol/L Carbon Dioxide (22-30) mmol/L Creatinine (0.66-1.25) mg/dL Glucose (74-99) mg/dL POC Glucose (mg/dL) 174 H 197 H (70-110) mg/dL ALT (4-49) U/L Total Protein (6.3-8.2) g/dL Albumin (3.5-5.0) g/dL Microbiology - Last 24 Hours (Table) 03/26/25 15:53 Acid Fast Bacilli Smear - Preliminary Bronchoalviolar Lavage - Left Acid Fast Bacilli Culture - Preliminary
--- NOTE | 2025-05-08 14:42 | P.PN ---
Subjective Progress Note Date: 05/08/25 Principal diagnosis: Acute hypoxic respiratory failure with left lower lobe atelectasis, pneumonia, and left lung collapse/opacification. This is a 64-year-old male patient was undergone a C 7 T1 discectomy, done posteriorly with wide laminectomy and foraminotomy and partial facetectomy. The patient was experiencing cervical myelopathy with severe bilateral lower extremity weakness and T8 paresthesia. The patient has previous history of cervical spine fusion C2-C7. The patient was found to have a large herniated disc C7-T1 with severe spinal cord stenosis and based on that the patient was taken to the operating room and underwent a C7-T1 discectomy on 03/21/2025. The patient has become progressively more hypoxic. Currently he is on Airvo at 60 L and FiO2 of 90%. His current pulse ox is in order of 90 to 93%. Slightly tachycardic. Blood pressure is also soft at 89/62. Based on worsening hypoxemia, CT of the chest was done and the patient was found to have s ignificant volume loss in the left lung compared to the right. There is marked volume loss and atelectasis in addition to an area of consolidation in the left upper lobe and elevation of the left hemidiaphragm in addition to significant gastric distention. The patient has dilated air in the stomach and colon. Blood work shows a white cell count of 14, hemoglobin 12.4 and a platelet count of 175. Sodium levels at 137, bicarb is at 23, potassium level is at 4.3 with a chloride of 102. BUN 23 with a creatinine of 0.9. The patient is resting comfortably in bed. He is wearing a hard neck collar. He is reporting some mild shortness of breath even at rest. He is tolerating the Airvo. He is currently on IV Solu-Medrol 100 mg every 6 hours post neck surgery. He is also on IV fluids with l normal saline at rate of 75 cc an hour. Comorbidities include hypertension, hyperlipidemia, diabetes mellitus type 2, obstructive sleep apnea maintained on CPAP therapy on outpatient basis On today's evaluation of 03/23/25, patient is still on the BiPAP pressure of 14 over 6 cm of water and FiO2 has been weaned down to 65%. The patient's abdomen seems to be less distended. He had 2 bowel movements and the patient is also passing flatus. Fluid balance +223 cc over the past 24 hours and the patient remains on normal saline at a rate of 75 cc an hour. Neurologically, unchanged and the patient has absent motor function lower extremities bilaterally. He is on broad-spectrum antibiotics and the patient is currently on Zosyn vancomycin combination. Follow-up chest x-ray shows some interval improvement in aeration in the left lung base. Lung volumes in the left remain small and there is some ongoing atelectatic change at left lower lobe. The patient's white cell count is 11, hemoglobin 11.3 and a platelet count of 180. Electrolytes are all within normal limits. BUN is 40 with a creatinine of 1.05. The patient is able to communicate. He is alert and awake. Denies having any specific complaints. Still wearing a hard neck collar. 03/24/2025, the patient is laying flat in bed and is currently on a BiPAP at a pressure of 14/6 with an FiO2 of 75% overnight and Airvo during the day. He remains on normal saline at rate of 75 cc an hour. Chest x-ray still showing left lower lobe consolidation. Abdomen is soft. He had 3 bowel movements. He is on Lantus insulin. The patient's mentation is awake and alert. Nevertheless, he continues to have profound weakness in the lower extremity and he remains paraplegic. Remains on IV Solu-Medrol. Blood sugars are elevated and he remains on Lantus 15 units daily and NovoLog sliding scale coverage. The white cell count 11.9, hemoglobin 11.3 and a platelet count of 201. BUN 34 with a creatinine of 0.8. Sodium levels at 136. Blood sugars up to 82. He is postop day #4 following an open decompression and fusion of C7-T1 surgery was done due to a large disc herniation and spinal cord injury. He is also status post fusion and extension from prior fusion C2-7 and near extension fusion down to T3. He is unable to move his legs still. Samuels catheter still in place. Using incentive spirometer. Afebrile. 03/25/2025, the patient is being seen for a follow-up. Repeat chest x-ray was done and shows ongoing volume loss and atelectasis in the left lung base. I also performed an ultrasound of the chest and there is no sizable pleural effusion for thoracentesis. Findings are more consistent with consolidation/atelectasis. Remains on Airvo at 60 L and FiO2 of 90%. Incentive spirometer. Overnight, using BiPAP pressure of 14/6 and use of water with an FiO2 of 80%. Remains in normal Saint rate of 75 cc an hour. Fluid balance is +550 cc over the past 24 hours. No respiratory difficulties. The white cell count of 12. Hemoglobin is 10.9. Platelet count is 210. BUN is 32 with a creatinine of 0.8. Sodium levels at 138 and potassium levels of 4.2. Remains on Zosyn and vancomycin. Neurologically unchanged and the patient continues to be paraplegic. Patient was seen today on 03/26/2025, patient remains in the ICU, he is on Airvo at 90% and 60 L flow, patient is generally weak, alert and appropriate, IV fluid at 75 cc/h, continues to have weakness from the waist down. Patient had cervical spine surgery postoperative day #6. Chest x-ray showed complete opacification of the left lung consistent with mucous plugging involving the left mainstem bronchus. Hence I discussed this with the patient today, patient needs to be bronchoscope, needs to have extraction of mucous plugs. Considering the patient is marginal at best, will need to be intubated and placed on mechanical ventilation for the procedure. Based on the findings we will decide whether the patient needs to remain on mechanical ventilation after bronchoscopy or not. Most likely he will remain ventilated after the bronchoscopy. Patient has a bit of leukocytosis with WBC of 13.3 hemoglobin 11.3 electrolytes are normal renal profile is normal. Nasal screen has been positive for MSSA not MRSA. Patient was seen today on 03/27/2025, patient remains intubated and mechanically ventilated, kept him on mechanical ventilation after his bronchoscopy yesterday and suctioning of mucous plugs from the left mainstem bronchus and left lung. Left lung continues to show good inflation, minimal left lower lobe atelectasis, patient is on assist-control rate of 18 tidal volume 550 FiO2 50% and PEEP of 8 ABG today showed a pO2 of 84 pCO2 37 pH of 7.41. Patient is also on propofol at 50 mg/kg/min IV fluids at 75 cc/h on antibiotics in the form of Zosyn and vancomycin, antibiotics to be changed once we have the final culture from the BAL. I plan to wean the patient today, possibly consider placing him on BiPAP 12/6/50% assuming he tolerates weaning and he passes his weaning parameters. Patient is awake, follows instructions, although he is still on propofol. WBC count is 14.48 hemoglobin 10.8 electrolytes are normal, BUN is 29 creatinine 0.7 Patient was seen today on 03/28/2025, patient was extubated yesterday, had to be placed on BiPAP to avoid atelectasis again of the left lung and mucous plugging patient has very poor cough, cannot clear his secretions, and his chest x-ray today is beginning to show early atelectasis in the left lower lobe, questionable effusion but ultrasound did not show much fluid. I believe it is all a picture of atelectasis involving the left lower lobe and I am afraid that the patient may have reopacification of the left lung in the next 24 hours. In the meantime I will continue patient on BiPAP, will recommend chest PT, N- acetylcysteine and albuterol, Mucinex, and hopefully we can avoid another bronchoscopy. Otherwise if the patient opacifies left lung again, may have to be bronchoscope again. And if we do I will keep him longer on mechanical ventilation. Patient remains on antibiotics/broad-spectrum he is WBC count is 19.36 hemoglobin is 10.7 electrolytes are normal renal profile is normal. Seen today on 03/29/2025, patient remains in the ICU, chest x-ray is showing wo rsening and he is again having near complete opacification of the left lung. Apparently the patient is developing mucous plugging again involving the left mainstem bronchus and the cultures from his last BAL came back showing Serratia marcescens. Considering the patient's critical illness, I am transitioning Zosyn to Merrem for better coverage of Serratia. Sensitivity is still pending on the organism. But empirically Merrem would be a better choice for Serratia marcescens for the time being. Patient still on BiPAP at 14/6/60%, and considering his abnormal chest x-ray, I am recommending bronchoscopy again and this has to be again done with the patient intubated as his O2 saturation is ma rginal even on 60% BiPAP. Patient looks comfortable, he is not in distress. Continues to have leukocytosis with WC of 23.23 hemoglobin 11.2 basic metabolic profile is normal renal profile is normal continues to have cervical collar in place. Patient was seen today on 03/30/2025, remains in the ICU, intubated and mechanically ventilated, patient is on assist-control rate of 18 tidal volume 550 FiO2 50% PEEP of 10 ABG showed a pO2 of 122 pCO2 37 pH of 7.47 hence FiO2 was cut down to 40%. Remains on Merrem remains on propofol at 40 mcg/kg/min and on Versed 1 mg/h. Patient is sedated, does not seem to be in any distress, chest x-ray is showing slight worsening in the left lower lobe, but not severe enough to justify bronchoscopy again. However considering this I am not planning to extubate the patient today as if extubated he will most likely end up requiring bronchoscopy again. Patient had positive cultures for Serratia marcescens, and is now on Merrem. Labs today were reviewed patient has leukocytosis with WBC count of 19.7 hemoglobin 11.3, basic metabolic profile is normal renal profile is normal patient is on nutritional support/enteral feeding. Chest x-ray today is a bit worrisome hence no plans to wean and extubate today. Patient was seen today on 03/31/2025, remains in the ICU, intubated and mechanically ventilated. Patient is on assist-control rate of 18 tidal volume 550 FiO2 40% and PEEP of 10 ABG on 45% showed a pO2 of 86 pCO2 42 pH of 7.44. Chest x-ray is showing left lower lobe atelectasis/airspace disease involving the left lower lobe hence I was concerned about recollapsing of the left lung, bronchoscopy was performed, and the secretions noted in the left lower lobe with were very minimal. Did not require lavage, there was not enough secretions to d o lavage. Hence the patient was kept intubated mechanically ventilated, he is now on propofol at 45 mcg/kg/min is on Versed 1 mg/h and is receiving vital HP at 32 cc/h. Remains on fluconazole, remains on Merrem. Continues to have a bit of leukocytosis with WBC of 19.12 hemoglobin 11.7 electrolytes are normal, renal profile is normal. Patient was seen today on 04/01/2025, remains in the ICU, remains intubated and mechanically ventilated. Patient is sedated with propofol at 45 mcg/kg/min and Versed 1 mg/h. Patient is calm he is on assist-control mode of mechanical ventilation rate 18 tidal volume 550 FiO2 40% PEEP that ABG showed a PO2 of 91 pCO2 37 pH of 7.52 chest x-ray showed improvement in his left lower lobe atelectasis but he does have bilateral pleural effusions has I recommended a dose of Lasix 40 mg IV push x 1 was given. Considering his ABG is better considering his chest x-ray is showing improvement, I recommended a trial of weaning. However on pressure support and CPAP, his ABG was marginal with a pO2 of 61 pCO2 40 pH of 7.51, hence I felt the patient is not ready to be weaned especially with relatively low pO2 of 61. And I felt the patient should be back on sedation and back on assist-control mode of mechanical ventilation. In the meantime patient remains on nutritional support, remains in GI prophylaxis: And again he received a dose of Lasix earlier today for what seems to be bilateral pleural effusions. Continues to have leukocytosis with WBC count of 19.4 hemoglobin 11.5 electrolytes are normal, renal profile is normal blood sugar is 245 On 05/05/2025, the patient is being seen for a follow-up. The patient had bronchoscopies 2 days in the row and another is bronchoscopy was done yesterday where mucous plugs were again aspirated although the secretions were less abundant. The patient clinically is unchanged. Arousable. No sedation. Still on a mechanical ventilator at rate of 20, tidal volume of 400, FiO2 of 60% with a PEEP of 10. Blood gas with a pH of 7.47 with a PCO2 of 53 and PO2 of 119. Receiving enteral feeding for nutritional support and the patient is currently on vital HP. He is having liquidy stool and the patient has a fecal management system in place. Based on the most recent cultures and his sputum growing Staph aureus and Klebsiella, the patient was kept on IV cefepime. Patient is also on vancomycin. The patient has been afebrile. Hemodynamically stable. The white cell count is currently at 17.6 with a hemoglobin 8.4 and a platelet count of 205. Sodium is at 136, bicarbonate 40, BUN is 20 with a creatinine of 0.2. LFTs are normal. Blood sugars are being monitored. Neurologically unchanged. Remains on 5 mg of prednisone. On 05/06/2025, the patient is being seen for a follow-up. The patient is off sedation. The patient is following commands. Arousable. Currently on assist- control mode rate of 20, tidal volume of 400, FiO2 of 80% with a PEEP of 10. Blood gas showed a pH of 7.43 with a PCO2 of 59 and PO2 148. No significant changes on chest x-ray. The patient remains on vital HP at rate of 50 cc an hour. Hemodynamically stable. Afebrile. Currently on IV cefepime as the patient's sputum sample and bronchoscopy and lavage from the right lung showed MSSA and Klebsiella. Continues to receive enteral feeding for nutritional support. Neurologically unchanged. Continues to have episodes of oxygen saturation and mucous plugging and this is becoming a daily occurrence. Still on Lovenox 40 mg subcu for DVT prophylaxis. Still on Lantus insulin 5 units daily and sliding scale coverage. Still on bronchodilators. Prednisone has been weaned down to 10 mg p.o. daily. Patient was seen today on 05/07/2025, patient remains marginal at best. Still on relatively high FiO2 FiO2 70%, still on PEEP of 10 rate 20 tidal volume 400, patient has now MSSA and Klebsiella pneumonia in the sputum remains on vancomycin and cefepime. ABG today showed a pO2 of 63 pCO2 60 pH of 7.42, overall the patient is about the same, continues to have intermittent episodes of profound hypoxia requiring high FiO2 and high PEEP. Today I increased his PEEP to 12 hoping to cut down his FiO2 below 70%, but this could not happen as the patient desaturated and he had to go back high on FiO2. Patient had a tracheostomy and PEG tube placement on 04/26. He will eventually require placement but cannot get in place with relatively high FiO2 and high PEEP required. Chest x-ray continues to show atelectasis/pneumonia involving the right lower lobe, his left lower lobe seems to be better at this time. Labs from today were all reviewed chest x-ray was reviewed and at this point not much to be added except continue antibiotics and continue daily trials of getting FiO2 down or PEEP down or both. Patient was seen today on 05/08/2025, remains in the ICU, intubated and mechanically ventilated. Patient is still requiring relatively high FiO2 60% today, and PEEP was at 10 I cut it down to 8. Last night his O2 saturation kept fluctuating up and down, at 1 point he had to be placed on 100% as his O2 satu ration was down in the 60s. Patient continues to have significant right lower lobe atelectasis/pneumonia remains on antibiotics/broad-spectrum and infectious disease was consulted to see this patient yesterday. Overall picture is not changing much, patient remains about the same with waxing and waning episodes of atelectasis and desaturation with hypoxia. The goal is to get the patient down to a PEEP of 8 and FiO2 50% if possible and if he could maintain that, we could possibly transfer the patient to select care specialty. ABG today showed a pO2 of 177 pCO2 56 pH of 7.45 however this was on 80% FiO2. Done apparently after midnight last night. WBC count is 14.3 hemoglobin 8.4 electrolytes are normal, renal profile is normal. Last bronchial washing culture came back positive for MSSA and Klebsiella pneumoniae and this was from 05/03/2025. Objective - Vital Signs Vital signs: Vital Signs Temp 98.3 F 05/08/25 11:00 Pulse 90 05/08/25 13:14 Resp 20 05/08/25 13:14 BP 125/68 05/08/25 11:00 Pulse Ox 100 05/08/25 13:00 FiO2 60 05/08/25 13:16 Intake & Output 05/07/25 05/08/25 05/08/25 18:59 06:59 18:59 Intake Total 760 810 360 Output Total 1195 1245 900 Balance -435 -435 -540 Weight 99 kg 99 kg Intake: IV 110 120 60 0.9@10 110 120 60 Tube Feeding 650 600 300 Other 90 Output: Urine 1195 1245 900 Other: Voiding Method Indwelling Catheter Indwelling Catheter Indwelling Catheter ABP, PAP, CO, CI - Last Documented Arterial Blood Pressure 125/68 - Exam General: Reveals 64-year-old white male, intubated mechanically ventilated awake, follows instructions but seems to be profoundly weak. Derm: No rashes. Head: atraumatic, normocephalic Eyes: EOMI, anicteric sclera Mouth: Moist mucous membranes, no evidence of lesions Cardiovascular: Normal S1 S2 reg, no murmur, rubs, or gallops Lungs: Diminished breath sounds at the bases no rhonchi no wheezes Abdominal: soft, a bowel sounds are present Extremities: no gross muscle atrophy, no edema, no contractures, Neuro: Alert oriented x 3 no gross focal deficit, patient is noted to be profoundly weak Psych: Normal mood affect and mental status examination - Labs CBC & Chem 7: 05/08/25 03:20 05/08/25 03:20 Labs: Abnormal Lab Results - Last 24 Hours (Table) 05/07/25 05/08/25 05/08/25 Range/Units 17:45 00:00 00:10 WBC (4.50-10.00) 10*3/uL RBC (4.40-5.60) 10*6/uL Hgb (13.0-17.0) g/dL Hct (39.6-50.0) % MCHC (32.0-37.0) g/dL Immature Gran # (0.00-0.04) 10*3/uL Neutrophils # (Manual) (1.3-7.7) k/uL Metamyelocytes # (Man) (0) k/uL ABG pCO2 (35-45) mmHg ABG pO2 (83-108) mmHg ABG HCO3 (21-25) mmol/L ABG Total CO2 (19-24) mmol/L ABG O2 Saturation (94-97) % Hemoglobin (13.0-17.5) gm/dL Sodium (137-145) mmol/L Chloride (98-107) mmol/L Carbon Dioxide (22-30) mmol/L Creatinine (0.66-1.25) mg/dL Glucose (74-99) mg/dL POC Glucose (mg/dL) 254 H 191 H 194 H (70-110) mg/dL ALT (4-49) U/L Total Protein (6.3-8.2) g/dL Albumin (3.5-5.0) g/dL 05/08/25 05/08/25 05/08/25 Range/Units 03:20 03:20 05:01 WBC 14.38 H (4.50-10.00) 10*3/uL RBC 2.90 L (4.40-5.60) 10*6/uL Hgb 8.4 L (13.0-17.0) g/dL Hct 27.4 L (39.6-50.0) % MCHC 30.7 L (32.0-37.0) g/dL Immature Gran # 1.16 H (0.00-0.04) 10*3/uL Neutrophils # (Manual) 11.50 H (1.3-7.7) k/uL Metamyelocytes # (Man) 1.73 H (0) k/uL ABG pCO2 56 H (35-45) mmHg ABG pO2 177 H (83-108) mmHg ABG HCO3 38 H (21-25) mmol/L ABG Total CO2 40 H (19-24) mmol/L ABG O2 Saturation 100.0 H (94-97) % Hemoglobin 8.7 L (13.0-17.5) gm/dL Sodium 133 L (137-145) mmol/L Chloride 92 L (98-107) mmol/L Carbon Dioxide 37 H (22-30) mmol/L Creatinine <0.15 L (0.66-1.25) mg/dL Glucose 191 H (74-99) mg/dL POC Glucose (mg/dL) (70-110) mg/dL ALT 63 H (4-49) U/L Total Protein 5.0 L (6.3-8.2) g/dL Albumin 2.6 L (3.5-5.0) g/dL 05/08/25 05/08/25 Range/Units 05:51 11:18 WBC (4.50-10.00) 10*3/uL RBC (4.40-5.60) 10*6/uL Hgb (13.0-17.0) g/dL Hct (39.6-50.0) % MCHC (32.0-37.0) g/dL Immature Gran # (0.00-0.04) 10*3/uL Neutrophils # (Manual) (1.3-7.7) k/uL Metamyelocytes # (Man) (0) k/uL ABG pCO2 (35-45) mmHg ABG pO2 (83-108) mmHg ABG HCO3 (21-25) mmol/L ABG Total CO2 (19-24) mmol/L ABG O2 Saturation (94-97) % Hemoglobin (13.0-17.5) gm/dL Sodium (137-145) mmol/L Chloride (98-107) mmol/L Carbon Dioxide (22-30) mmol/L Creatinine (0.66-1.25) mg/dL Glucose (74-99) mg/dL POC Glucose (mg/dL) 174 H 197 H (70-110) mg/dL ALT (4-49) U/L Total Protein (6.3-8.2) g/dL Albumin (3.5-5.0) g/dL Microbiology - Last 24 Hours (Table) 03/26/25 15:53 Acid Fast Bacilli Smear - Preliminary Bronchoalviolar Lavage - Left Acid Fast Bacilli Culture - Preliminary Assessment and Plan Assessment: Impression Acute hypoxic respiratory failure, multifactorial. The patient has developed postoperative atelectasis of the left lower lobe and the patient has significant elevation in volume loss in the left lung compared to the right. Previous bronchoscopy and sputum analysis was positive for Serratia marcescens. Nasal culture is positive for MSSA and the patient completed the course of antibiotics. He has a very weak cough and poor ability to perform pulmonary toileting. T8 spinal cord injury. The patient has severe spinal canal stenosis at the level of C7/T1 with motor weakness in the lower extremities in addition to myelopathy. The patient is post C7/T1 discectomy with decompression and fusion and the patient also had extension of a previous C2/7 fusion to T3. This was done back on March 21, 2025 Diabetes mellitus type 2, with steroid-induced hyperglycemia Hypotension, rule out septic versus neurogenic hypotension post spine surgery Sinus tachycardia Hyperlipidemia Seroma in the posterior soft tissues along the length of the skin jarad, spinal surgeries following Bilateral lower extremity weakness, ongoing motor weakness in the lower extremities bilaterally with absent motor function at this point with bilateral foot drop. Patient's sensations in the lower limbs have improved, but now patient is completely paraplegic. T8 p spinal cord injury with motor paralysis lower extremities bilaterally with absent sensation. He does have some feelings in his lower abdomen towards the groin. History of prior cervical fusion C3-C7 History of severe L5-S1 neuroforaminal stenosis Purulent secretions around the tracheostomy stoma, with positive sputum cultures, and respiratory secretion have improved and the patient has required [id number] bronchoscopies and therapeutic airway suctioning and removal of mucous plugs. The patient continues to have episodes of mucous plugging with episodes of desaturation and this has become a daily occurrence and sometimes several episodes a day. His last bronchoscopy was on 05/[address] Acosta. Cultures indicating staph possibly MSSA in addition to Klebsiella. Patient remains on cefepime Recommendation: Continue to monitor in the ICU Continue ventilatory support, lower PEEP to 8 continue titration of FiO2 Continue antibiotics as per ID on the case Continue present supportive care measures Continue incentive spirometry Continue chest physiotherapy Continue albuterol and Mucomyst Continues to have extremely poor prognosis and remains critically ill Had a long discussion yesterday with his regarding his condition and prognosis which seems to be relatively poor Critical care time is 32 minutes Patient is not quite ready to transfer to select care specialty as he remains relatively critically ill Will continue to follow Time with Patient: Greater than 30
--- NOTE | 2025-05-08 14:43 | P.PN ---
Progress Note - Text Progress Note Date: 05/08/25 No acute events overnight VSS General-NAD HEENT-tracheostomy in place CVS-RRR Lungs-NLB Abdomen-soft, NTND, PEG tube in place 65-year-old male status post trach and PEG evaluated for Sacral Decubitus Ulcer. . -Will plan to debride sacral decubitus ulcer when patient more stable and can tolerate positioning -Recommend local wound care with enzymatic debridement. Wound Care recs -Tube Feeds as Tolerated -ICU care Ramy Wilkerson DO [facility] [phone]
[2025-05-08] MEDS: COLLAGENASE 250 UNIT/GM OINTMENT 30 GM TUBE TOPICAL SCH (15:02)
[2025-05-08 17:30] LABS: Glucose,Whole Blood 226 mg/dL (70-110)
[2025-05-08 17:39] LABS: Glucose,Whole Blood 204 mg/dL (70-110)
--- NOTE | 2025-05-08 22:53 | P.CONS ---
History of Present Illness - Reason for Consult Consult date: 05/08/25 Antibiotic management Requesting physician: Kaylah Veronica - Chief Complaint Fever x few days - History of Present Illness Patient is a 65-year-old male who was 64-year-old when he was admitted to the hospital with initial presentation for bilateral extremity weakness and T8 paresthesia and the patient is status post C7-T1 discectomy with a wide laminectomy and partial facetectomy procedure was completed on 03/20/2025, patient seem to have issues with respiratory system and requiring high flow oxygen patient did have getting intubated on 03/27/2025 got extubated on 03/28/2025 for his to be reintubated because of his worsening respiratory distress patient did have multiple bronchoscopy during this admission Patient did have a multiple positive bronchial and sputum culture during this hospital stay including Serratia marcescens on 03/26/2025 he also have a sputum culture positive for MSSA and Klebsiella pneumonia on 04/30/2025 as well as 05/01/2025 endobronchial culture grew the same pathogen patient has been treated with multiple courses of antibiotic therapy during this 50+ days hospital stay and the patient is currently on a combination of cefepime and vancomycin infectious he was consulted last evening for further management of antibiotic therapy patient is currently afebrile last temperature was 100.3 on 04/30/2025 100.4 F on 05/01/2025 and had a daily follow-up right on 05/02/2025 with no fever recorded over the last 4 days patient has also developed a sacral pressure ulcer during his hospital stay with the patient has been eval by general surgery recommending wound care and currently being treated with the [facility] patient did have a whi te count of 14.38 slightly higher than yesterday but definitely trending down over the last few days did have a normal creatinine electrolytes and the Vanco trough of 22.1 last chest x-ray this morning 05/08/2025 right effusion right basilar opacity patient is currently intubated through the trach however he is able to communicate denies significant chest pain no worsening cough or purulent secretion through the ED reported by nursing staff no vomiting however he did have diarrhea for the patient did have a fecal management system however no worsening output reported by the nursing staff Review of Systems Positive point and negatives has been mentioned in the HPI, complete review of systems was performed and all other systems are negative Past Medical History Past Medical History: Diabetes Mellitus, Hypertension, Sleep Apnea/CPAP/BIPAP Additional Past Medical History / Comment(s): depression History of Any Multi-Drug Resistant Organisms: None Reported Past Surgical History: Appendectomy, Cholecystectomy Additional Past Surgical History / Comment(s): neck surgery, left elbow, Past Anesthesia/Blood Transfusion Reactions: No Reported Reaction Past Psychological History: Depression Smoking Status: Never smoker Past Alcohol Use History: None Reported Past Drug Use History: None Reported Medications and Allergies Home Medications Medication Instructions Recorded Confirmed Type Cetirizine HCl [Zyrtec] 10 mg PO DAILY 02/15/25 03/18/25 History Cholecalciferol (Vitamin D3) 50 mcg PO DAILY 02/15/25 03/18/25 History [Vitamin D3 (50 Mcg = 2000 Iu)] Famotidine 20 mg PO DAILY 02/15/25 03/18/25 History Fluticasone Nasal [place] [Flonase 1 spray EA NOSTRIL DAILY 02/15/25 03/18/25 History Nasal [place]] Ipratropium [place] 0.06%Nasal 1 spray NASAL BID 02/15/25 03/18/25 History [Atrovent Nasal 0.06%] Nortriptyline [Pamelor] 100 mg PO HS 02/15/25 03/18/25 History Pramipexole [Mirapex] 0.25 mg PO HS 02/15/25 03/18/25 History Simvastatin [Zocor] 80 mg PO HS 02/15/25 03/18/25 History Vibegron [Gemtesa] 75 mg PO DAILY 02/15/25 03/18/25 History EPINEPHrine (Auto Inject) [Epipen] 0.3 mg IM ONCE PRN 03/18/25 03/18/25 History Vitamin B-12 250mcg 500 mcg PO DAILY 03/18/25 03/18/25 History Acetaminophen Tab [Tylenol] 650 mg PO Q6HR PRN tab 04/24/25 Rx Acetylcysteine [Mucomyst 20%] 200 mg INHALATION RT-QID each 04/24/25 Rx Benzocaine/Menthol Lozeng [Cepacol 1 each MUCOUS MEM Q4HR PRN lozenge 04/24/25 Rx lozenge] Calcium Carbonate [Tums] 1,000 mg PO QID PRN tab 04/24/25 Rx Cyclobenzaprine [Flexeril] 10 mg PO TID PRN tab 04/24/25 Rx Folic Acid 1 mg PO DAILY tab 04/24/25 Rx INSULIN LISPRO (HumaLOG) [HumaLOG] 0 unit SQ ACHS each 04/24/25 Rx Ipratropium-Albuterol Nebulize 3 ml INHALATION RT-Q2H PRN each 04/24/25 Rx [Duoneb 0.5 mg-3 mg/3 ml Soln] Ipratropium-Albuterol Nebulize 3 ml INHALATION RT-QID each 04/24/25 Rx [Duoneb 0.5 mg-3 mg/3 ml Soln] Magnesium Hydroxide [Milk of 2,400 mg PO DAILY PRN ml 04/24/25 Rx Magnesia] Melatonin 5 mg PO HS PRN tab 04/24/25 Rx Pantoprazole [Protonix] 40 mg PO AC-BRKFST tab 04/24/25 Rx Sennosides-Docusate Sodium 1 each PO DAILY tab 04/24/25 Rx [Senokot-S] Sennosides-Docusate Sodium 2 each PO DAILY PRN tab 04/24/25 Rx [Senokot-S] Tamsulosin [Flomax] 0.4 mg PO PC-BRKFST cap 04/24/25 Rx diazePAM [Valium] 5 mg PO QID PRN tab 04/24/25 Rx guaiFENesin [Mucinex] 1,200 mg PO BID tab 04/24/25 Rx polyethylene glycoL 3350 [Miralax] 17 gm PO HS packet 04/24/25 Rx Budesonide [Pulmicort] 0.5 mg INHALATION RT-BID ml 05/09/25 Rx Cefepime [Maxipime] 2 gm IVPB Q8H 7 Days each 05/09/25 Rx Collagenase [Santyl Ointment] 1 applic TOPICAL DAILY each 05/09/25 Rx Formoterol Fumarate [Perforomist] 20 mcg INHALATION RT-BID ml 05/09/25 Rx Insulin Glargine (Lantus) [Lantus 5 unit SQ DAILY@0700 each 05/09/25 Rx Vial] QUEtiapine [SEROquel] 25 mg PEG/G-TUBE HS tab 05/09/25 Rx Allergies Allergy/AdvReac Type Severity Reaction Status Date / Time bee venom protein (honey bee) Allergy Anaphylaxis Verified 03/18/25 15:55 pollen extracts AdvReac Itching Verified 03/18/25 15:55 Physical Exam Vitals: Vital Signs Temp Pulse Resp BP Pulse Ox FiO2 05/08/25 09:36 80 22 05/08/25 09:28 60 05/08/25 07:00 86 13 100 05/08/25 06:00 83 20 100 05/08/25 05:07 60 05/08/25 05:00 90 10 L 100 05/08/25 04:00 97.9 F 78 20 97 80 05/08/25 03:44 80 05/08/25 03:00 80 16 99 05/08/25 02:00 80 20 100 05/08/25 01:00 84 23 100 05/08/25 00:26 80 05/08/25 00:04 80 12 100 05/08/25 00:00 98.0 F 81 14 100 100 05/07/25 23:50 100 05/07/25 23:00 84 10 L 100 05/07/25 22:00 74 133/74 100 05/07/25 21:00 90 18 150/81 100 05/07/25 20:00 97.9 F 94 9 L 100 70 05/07/25 19:00 83 16 131/120 100 70 05/07/25 18:49 84 05/07/25 18:42 80 05/07/25 18:41 80 05/07/25 18:30 88 05/07/25 18:26 70 05/07/25 18:00 86 21 126/74 100 70 05/07/25 17:08 70 05/07/25 17:00 90 18 130/78 100 80 05/07/25 16:00 98.3 F 92 18 146/79 100 80 05/07/25 15:23 92 05/07/25 15:07 94 05/07/25 15:03 90 05/07/25 15:00 93 18 151/83 100 90 05/07/25 14:00 90 21 155/85 100 90 05/07/25 13:00 96 21 147/90 100 100 05/07/25 12:00 98.3 F 93 16 129/74 97 100 05/07/25 11:30 86 05/07/25 11:17 50 05/07/25 11:16 85 06/30/25 11:00 96 22 136/79 94 L 50 05/07/25 10:29 50 05/07/25 10:00 84 16 132/75 100 100 Intake and Output 05/07/25 05/08/25 05/08/25 22:59 06:59 14:59 Intake Total 510 540 60 Output Total 800 870 125 Balance -290 -330 -65 Intake: IV 80 80 10 0.9@10 80 80 10 Tube Feeding 400 400 50 Other 30 60 Output: Urine 800 870 125 Other: Voiding Method Indwelling Catheter Indwelling Catheter Weight 99 kg ABP, PAP, CO, CI - Last 8 Hours Arterial Blood Pressure 116/67 Arterial Blood Pressure 130/71 Arterial Blood Pressure 132/71 Arterial Blood Pressure 103/57 Arterial Blood Pressure 93/54 Arterial Blood Pressure 108/60 GENERAL DESCRIPTION: Elderly male intubated on the vent through the trach HEENT: Shows Pallor , no scleral icterus. Oral mucous membrane is dry. NECK: Trachea central, no thyromegaly. LUNGS: Unlabored breathing. Decreased breath sounds at the base HEART: S1, S2, regular rate and rhythm. No loud murmur ABDOMEN: Soft, no tenderness , guarding or rigidity, no organomegaly EXTREMITIES: No edema of feet. SKIN: Did have unstageable sacral pressure ulcer with necrotic slough tissue NEUROLOGICAL: The patient is on the vent awake mood and affect is normal Results CBC & Chem 7: 05/09/25 04:50 05/09/25 04:50 Labs: Abnormal Lab Results - Last 24 Hours (Table) 05/03/25 05/07/25 05/07/25 Range/Units 00:12 11:27 17:45 WBC (4.50-10.00) 10*3/uL RBC (4.40-5.60) 10*6/uL Hgb (13.0-17.0) g/dL Hct (39.6-50.0) % MCHC (32.0-37.0) g/dL Immature Gran # (0.00-0.04) 10*3/uL Neutrophils # (Manual) (1.3-7.7) k/uL Metamyelocytes # (Man) (0) k/uL ABG pCO2 (35-45) mmHg ABG pO2 (83-108) mmHg ABG HCO3 (21-25) mmol/L ABG Total CO2 (19-24) mmol/L ABG O2 Saturation (94-97) % Hemoglobin (13.0-17.5) gm/dL Sodium (137-145) mmol/L Chloride (98-107) mmol/L Carbon Dioxide (22-30) mmol/L Creatinine (0.66-1.25) mg/dL Glucose (74-99) mg/dL POC Glucose (mg/dL) 176 H 224 H 254 H (70-110) mg/dL ALT (4-49) U/L Total Protein (6.3-8.2) g/dL Albumin (3.5-5.0) g/dL 05/08/25 05/08/25 05/08/25 Range/Units 00:00 00:10 03:20 WBC (4.50-10.00) 10*3/uL RBC (4.40-5.60) 10*6/uL Hgb (13.0-17.0) g/dL Hct (39.6-50.0) % MCHC (32.0-37.0) g/dL Immature Gran # (0.00-0.04) 10*3/uL Neutrophils # (Manual) (1.3-7.7) k/uL Metamyelocytes # (Man) (0) k/uL ABG pCO2 (35-45) mmHg ABG pO2 (83-108) mmHg ABG HCO3 (21-25) mmol/L ABG Total CO2 (19-24) mmol/L ABG O2 Saturation (94-97) % Hemoglobin (13.0-17.5) gm/dL Sodium 133 L (137-145) mmol/L Chloride 92 L (98-107) mmol/L Carbon Dioxide 37 H (22-30) mmol/L Creatinine <0.15 L (0.66-1.25) mg/dL Glucose 191 H (74-99) mg/dL POC Glucose (mg/dL) 191 H 194 H (70-110) mg/dL ALT 63 H (4-49) U/L Total Protein 5.0 L (6.3-8.2) g/dL Albumin 2.6 L (3.5-5.0) g/dL 05/08/25 05/08/25 05/08/25 Range/Units 03:20 05:01 05:51 WBC 14.38 H (4.50-10.00) 10*3/uL RBC 2.90 L (4.40-5.60) 10*6/uL Hgb 8.4 L (13.0-17.0) g/dL Hct 27.4 L (39.6-50.0) % MCHC 30.7 L (32.0-37.0) g/dL Immature Gran # 1.16 H (0.00-0.04) 10*3/uL Neutrophils # (Manual) 11.50 H (1.3-7.7) k/uL Metamyelocytes # (Man) 1.73 H (0) k/uL ABG pCO2 56 H (35-45) mmHg ABG pO2 177 H (83-108) mmHg ABG HCO3 38 H (21-25) mmol/L ABG Total CO2 40 H (19-24) mmol/L ABG O2 Saturation 100.0 H (94-97) % Hemoglobin 8.7 L (13.0-17.5) gm/dL Sodium (137-145) mmol/L Chloride (98-107) mmol/L Carbon Dioxide (22-30) mmol/L Creatinine (0.66-1.25) mg/dL Glucose (74-99) mg/dL POC Glucose (mg/dL) 174 H (70-110) mg/dL ALT (4-49) U/L Total Protein (6.3-8.2) g/dL Albumin (3.5-5.0) g/dL Microbiology - Last 24 Hours (Table) 03/26/25 15:53 Acid Fast Bacilli Smear - Preliminary Bronchoalviolar Lavage - Left Acid Fast Bacilli Culture - Preliminary Assessment and Plan (1) Sepsis Status: Acute Code(s): A41.9 - SEPSIS, UNSPECIFIED ORGANISM SNOMED Code(s): 09473817 (2) Pneumonia Status: Acute Code(s): J18.9 - PNEUMONIA, UNSPECIFIED ORGANISM SNOMED Code(s): 724104441 (3) Unstageable pressure ulcer of sacral region Status: Acute Code(s): L89.150 - PRESSURE ULCER OF SACRAL REGION, UNSTAGEABLE SNOMED Code(s): 25535950713750753 (4) Leukocytosis Status: Acute Code(s): D72.829 - ELEVATED WHITE BLOOD CELL COUNT, UNSPECIFIED SNOMED Code(s): 223882416 Plan: 1patient is a 65-year-old male currently in the ICU post C7-T1 discectomy. laminectomy and did have a postop respiratory failure with the patient has been intubated failed to be extubated current did have a track and did have multiple positive sputum culture during this hospital stay as the patient has been in the hospital for 50+ days before this initial evaluation 2-patient did start spiking fever around 04/30/2025 did have elevated white count with a positive sputum culture for Klebsiella and MSSA on multiple occasion with right basilar opacity likely concerning for pneumonia 3-patient also to have unstageable sacral pressure ulcer with necrotic tissue General Surgery has seen the patient recommending enzymatic debridement currently on [facility] keep in mind the extent of slough and necrotic tissue will benefit from Santyl which has been ordered 4-patient will be treated with the cefepime should cover for both Klebsiella and MSSA and no need for vancomycin which will be discontinued and duration of antibiotic should be 7 to 10 days depending upon his clinical response at the bedside multiple question concern has been also really made him Significant amount of time was spent during this initial consultation for review of his chart as the patient has been hospital for 52 days at the time of initia l evaluation We will follow on clinical condition and cultures to further adjust medication if needed Thank you for this consultation we will follow the patient along with you Dictation was produced using [employer] dictation software. please excuse any grammatical, word or spelling errors. Time with Patient: Greater than 30
[2025-05-08 23:05] LABS: Glucose,Whole Blood 164 mg/dL (70-110)
[2025-05-08] MEDS: QUEtiapine 25 MG TAB PEG/G-TUBE SCH (23:05)
[2025-05-09 05:11] LABS: HCT 25.7 % (39.6-50.0); HGB 8.2 g/dL (13.0-17.0); MCH 29.6 pg (27.0-32.0); MCHC 31.9 g/dL (32.0-37.0); MCV 92.8 fL (80.0-97.0); Platelet Count 209 10*3/uL (140-440); RBC 2.77 10*6/uL (4.40-5.60); RDW 14.1 % (11.5-14.5); WBC 12.12 10*3/uL (4.50-10.00)
[2025-05-09 05:24] LABS: Anion Gap 2 mmol/L; Blood Urea Nitrogen 15 mg/dL (9-20); Calcium 8.8 mg/dL (8.4-10.2); Carbon Dioxide 38 mmol/L (22-30); Chloride 94 mmol/L (98-107); Glucose 203 mg/dL (74-99); Potassium 3.9 mmol/L (3.5-5.1); Sodium 134 mmol/L (137-145)
[2025-05-09 05:32] LABS: Glucose,Whole Blood 196 mg/dL (70-110)
[2025-05-09 05:33] LABS: African American GFR (CKD) >90 (>60 ml/min/1.73 sqM); Non-African American GFR(CKD) >90 (>60 ml/min/1.73 sqM)
--- NOTE | 2025-05-09 07:34 | XR ---
EXAMINATION TYPE: XR chest 1V portable DATE OF EXAM: 05/09/2025 5:37 AM COMPARISON: Multiple radiographs, with the most recent on 05/07/2025 TECHNIQUE: XR chest 1V portable Portable AP radiograph of the chest. CLINICAL INDICATION:Male, 65 years old with history of Mechanical ventilation; FINDINGS: Lungs/Pleura: No pneumothorax. Improvement in right basilar airspace opacities. No sizable pleural ef fusion. Pulmonary vascularity: Unremarkable. Heart/mediastinum: Cardiomediastinal silhouette is prominent in size. Musculoskeletal: No acute osseous pathology. Anterior and posterior cervical fusion hardware. Other findings: None Lines/Tubes: Tracheostomy cannula projects over the trachea. Right-sided PICC line with distal tip in the right atrium. IMPRESSION: Improvement in right basilar airspace opacities. [facility], , 05/09/2025 7:32 AM
[2025-05-09 09:52] VITALS: TEMP 98.4
[2025-05-09 10:32] LABS: Eosinophils # (M) 0.12 k/uL (0-0.7); Lymphocytes # (M) 1.09 k/uL (1.0-4.8); Metamyelocytes # (M) 0.24 k/uL (0); Monocytes # (M) 0.73 k/uL (0-1.0); Myelocytes # (M) 0.12 k/uL (0); Neutrophils # (M) 10.05 k/uL (1.3-7.7); Neutrophils % (M) 80 %; RBC Morphology Normal; Total Cells Counted 200
[2025-05-09 11:14] LABS: Glucose,Whole Blood 247 mg/dL (70-110)
--- NOTE | 2025-05-09 12:33 | P.PN ---
Subjective Progress Note Date: 05/09/25 Principal diagnosis: Reason for follow-up is pneumonia/sepsis Patient is a 65-year male electively admitted to hospital after C7-T1 surgery subsequently did have postop respiratory failure intubation and subsequently requiring tracheostomy and did have multiple bronchoscopy and culture recently did have a fever elevated white count and a sputum positive for MSSA Klebsiella that prompted this consultation. On today's evaluation that is 05/09/2025,the patient did have resolution of his fever and has been afebrile for more than 3 to 4 days now patient remains to be debated through the trach FiO2 at 50% circumventing of not feeling well denies any worsening cough no or abdominal pain. Patient white count is down to 12.12 creatinine 0.15 Objective - Vital Signs Vital signs: Vital Signs Temp 98.4 F 05/09/25 08:00 Pulse 93 05/09/25 11:00 Resp 14 05/09/25 11:00 BP 123/79 05/09/25 11:00 Pulse Ox 98 05/09/25 11:00 FiO2 50 05/09/25 10:00 Intake & Output 05/08/25 05/09/25 05/09/25 18:59 06:59 18:59 Intake Total 720 810 330 Output Total 1600 1725 775 Balance -880 -915 -798 Weight 99 kg 98.1 kg Intake: IV 120 120 50 0.9@10 120 120 50 Tube Feeding 600 600 250 Other 90 30 Output: Urine 1600 1650 775 Stool 75 Other: Voiding Method Indwelling Catheter Indwelling Catheter Indwelling Catheter ABP, PAP, CO, CI - Last Documented Arterial Blood Pressure 255/255 - Exam GENERAL DESCRIPTION: Middle-age male lying in bed in no distress RESPIRATORY SYSTEM: Unlabored breathing , decreased breath sounds at bases HEART: S1 S2 regular rate and rhythm , ABDOMEN: Soft , no tenderness EXTREMITIES: No edema feet - Labs CBC & Chem 7: 05/09/25 04:50 05/09/25 04:50 Labs: Abnormal Lab Results - Last 24 Hours (Table) 05/08/25 05/08/25 05/08/25 Range/Units 17:29 17:38 23:03 WBC (4.50-10.00) 10*3/uL RBC (4.40-5.60) 10*6/uL Hgb (13.0-17.0) g/dL Hct (39.6-50.0) % MCHC (32.0-37.0) g/dL Immature Gran # (0.00-0.04) 10*3/uL Neutrophils # (Manual) (1.3-7.7) k/uL Metamyelocytes # (Man) (0) k/uL Myelocytes # (Manual) (0) k/uL Sodium (137-145) mmol/L Chloride (98-107) mmol/L Carbon Dioxide (22-30) mmol/L Creatinine (0.66-1.25) mg/dL Glucose (74-99) mg/dL POC Glucose (mg/dL) 226 H 204 H 164 H (70-110) mg/dL 05/09/25 05/09/25 05/09/25 Range/Units 04:50 04:50 05:30 WBC 12.12 H (4.50-10.00) 10*3/uL RBC 2.77 L (4.40-5.60) 10*6/uL Hgb 8.2 L (13.0-17.0) g/dL Hct 25.7 L (39.6-50.0) % MCHC 31.9 L (32.0-37.0) g/dL Immature Gran # 0.89 H (0.00-0.04) 10*3/uL Neutrophils # (Manual) 10.05 H (1.3-7.7) k/uL Metamyelocytes # (Man) 0.24 H (0) k/uL Myelocytes # (Manual) 0.12 H (0) k/uL Sodium 134 L (137-145) mmol/L Chloride 94 L (98-107) mmol/L Carbon Dioxide 38 H (22-30) mmol/L Creatinine <0.15 L (0.66-1.25) mg/dL Glucose 203 H (74-99) mg/dL POC Glucose (mg/dL) 196 H (70-110) mg/dL 05/09/25 Range/Units 11:13 WBC (4.50-10.00) 10*3/uL RBC (4.40-5.60) 10*6/uL Hgb (13.0-17.0) g/dL Hct (39.6-50.0) % MCHC (32.0-37.0) g/dL Immature Gran # (0.00-0.04) 10*3/uL Neutrophils # (Manual) (1.3-7.7) k/uL Metamyelocytes # (Man) (0) k/uL Myelocytes # (Manual) (0) k/uL Sodium (137-145) mmol/L Chloride (98-107) mmol/L Carbon Dioxide (22-30) mmol/L Creatinine (0.66-1.25) mg/dL Glucose (74-99) mg/dL POC Glucose (mg/dL) 247 H (70-110) mg/dL Assessment and Plan (1) Sepsis Current Visit: Yes Status: Acute Code(s): A41.9 - SEPSIS, UNSPECIFIED ORGANISM SNOMED Code(s): 92700768 (2) Pneumonia Current Visit: Yes Status: Acute Code(s): J18.9 - PNEUMONIA, UNSPECIFIED ORGANISM SNOMED Code(s): 880919502 (3) Unstageable pressure ulcer of sacral region Current Visit: Yes Status: Acute Code(s): L89.150 - PRESSURE ULCER OF SACRAL REGION, UNSTAGEABLE SNOMED Code(s): 58622646135121412 (4) Leukocytosis Current Visit: Yes Status: Acute Code(s): D72.829 - ELEVATED WHITE BLOOD CELL COUNT, UNSPECIFIED SNOMED Code(s): 739709427 Plan: 1patient is a 65-year-old male currently in the ICU post C7-T1 discectomy. laminectomy and did have a postop respiratory failure with the patient has been intubated failed to be extubated current did have a track and did have multiple positive sputum culture during this hospital stay as the patient has been in the hospital for 50+ days before this initial evaluation 2-patient did start spiking fever around 04/30/2025 did have elevated white count with a positive sputum culture for Klebsiella and MSSA on multiple occasion with right basilar opacity likely concerning for pneumonia 3-patient also to have unstageable sacral pressure ulcer with necrotic tissue General Surgery has seen the patient recommending enzymatic debridement currently on [facility] keep in mind the extent of slough and necrotic tissue will benefit from Santyl which has been ordered 4-patient did have resolution of his fever and white count is trending down recommend 7-day course of cefepime on discharge this was discussed with the admitting team who is currently working on discharge to the [facility] Dictation was produced using [employer] dictation software. please excuse any grammatical, word or spelling errors. Time with Patient: Less than 30
--- NOTE | 2025-05-09 12:35 | P.PN ---
Subjective Progress Note Date: 05/09/25 SURGICAL PROGRESS NOTE HISTORY OF PRESENT ILLNESS: No acute events overnight. Trach and PEG working appropriately. Sacral decubitus ulcer noted. PHYSICAL EXAM: VITAL SIGNS: Reviewed. GENERAL: Well-developed in no acute distress. HEENT: Tracheostomy site clean dry and intact ABDOMEN: PEG tube site clean dry and intact Skin: Sacral decubitus ulcer with eschar formation ASSESSMENT: 1. 65 year old male s/p Tracheostomy and EGD with PEG Tube Insertion 2. Sacral decubitus ulcer PLAN: -Continue local wound care with enzymatic debridement for sacral decubitus ulcer -Recommend debridement of sacral decubitus ulcer when patient is more stable and can tolerate positioning Physician Electroplating Laborer note has been reviewed by physician. Signing provider agrees with the documented findings, assessment, and plan of care. Attestation Patient seen and examined at bedside on 05/09/2025. Patient with sacral decubitus ulcer. Plan for local wound care with enzymatic debridement at this time. Patient does not tolerate being on his side very well with respiratory status. Possibility of debridement in the future if patient is able to tolerate this. Lei Wong, Objective - Vital Signs Vital signs: Vital Signs Temp 98.4 F 05/09/25 08:00 Pulse 93 05/09/25 11:00 Resp 14 05/09/25 11:00 BP 123/79 05/09/25 11:00 Pulse Ox 98 05/09/25 11:00 FiO2 50 05/09/25 10:00 Intake & Output 05/08/25 05/09/25 05/09/25 18:59 06:59 18:59 Intake Total 720 810 330 Output Total 1600 1725 775 Balance -880 -915 -445 Weight 99 kg 98.1 kg Intake: IV 120 120 50 0.9@10 120 120 50 Tube Feeding 600 600 250 Other 90 30 Output: Urine 1600 1650 775 Stool 75 Other: Voiding Method Indwelling Catheter Indwelling Catheter Indwelling Catheter ABP, PAP, CO, CI - Last Documented Arterial Blood Pressure 255/255 - Labs CBC & Chem 7: 05/09/25 04:50 05/09/25 04:50 Labs: Abnormal Lab Results - Last 24 Hours (Table) 05/08/25 05/08/25 05/08/25 Range/Units 17:29 17:38 23:03 WBC (4.50-10.00) 10*3/uL RBC (4.40-5.60) 10*6/uL Hgb (13.0-17.0) g/dL Hct (39.6-50.0) % MCHC (32.0-37.0) g/dL Immature Gran # (0.00-0.04) 10*3/uL Neutrophils # (Manual) (1.3-7.7) k/uL Metamyelocytes # (Man) (0) k/uL Myelocytes # (Manual) (0) k/uL Sodium (137-145) mmol/L Chloride (98-107) mmol/L Carbon Dioxide (22-30) mmol/L Creatinine (0.66-1.25) mg/dL Glucose (74-99) mg/dL POC Glucose (mg/dL) 226 H 204 H 164 H (70-110) mg/dL 05/09/25 05/09/25 05/09/25 Range/Units 04:50 04:50 05:30 WBC 12.12 H (4.50-10.00) 10*3/uL RBC 2.77 L (4.40-5.60) 10*6/uL Hgb 8.2 L (13.0-17.0) g/dL Hct 25.7 L (39.6-50.0) % MCHC 31.9 L (32.0-37.0) g/dL Immature Gran # 0.89 H (0.00-0.04) 10*3/uL Neutrophils # (Manual) 10.05 H (1.3-7.7) k/uL Metamyelocytes # (Man) 0.24 H (0) k/uL Myelocytes # (Manual) 0.12 H (0) k/uL Sodium 134 L (137-145) mmol/L Chloride 94 L (98-107) mmol/L Carbon Dioxide 38 H (22-30) mmol/L Creatinine <0.15 L (0.66-1.25) mg/dL Glucose 203 H (74-99) mg/dL POC Glucose (mg/dL) 196 H (70-110) mg/dL 05/09/25 Range/Units 11:13 WBC (4.50-10.00) 10*3/uL RBC (4.40-5.60) 10*6/uL Hgb (13.0-17.0) g/dL Hct (39.6-50.0) % MCHC (32.0-37.0) g/dL Immature Gran # (0.00-0.04) 10*3/uL Neutrophils # (Manual) (1.3-7.7) k/uL Metamyelocytes # (Man) (0) k/uL Myelocytes # (Manual) (0) k/uL Sodium (137-145) mmol/L Chloride (98-107) mmol/L Carbon Dioxide (22-30) mmol/L Creatinine (0.66-1.25) mg/dL Glucose (74-99) mg/dL POC Glucose (mg/dL) 247 H (70-110) mg/dL
--- NOTE | 2025-05-09 12:53 | P.DS ---
Providers Date of admission: 03/18/25 15:35 Expected date of discharge: 05/09/25 Attending physician: Yessica Austin MD Consults: 03/18/25 15:34 Consult Physician Routine Consulting Provider: Bell Alex Consult Reason/Comments: leg weakness Do you want consulting provider notified?: Yes Consult Physician Routine Consulting Provider: Oli Noyola Consult Reason/Comments: leg weakness Do you want consulting provider notified?: Yes 03/21/25 09:27 Consult Physician Routine Consulting Provider: Feliberto Cordova Consult Reason/Comments: eval for inpatient rehab, spinal cord injury resulting in BLE weakness Do you want consulting provider notified?: Yes 03/22/25 08:27 Consult Physician Urgent Consulting Provider: Cesar Woodruff Consult Reason/Comments: Spinal cord injury Do you want consulting provider notified?: Yes 03/22/25 13:21 Consult Physician Routine Consulting Provider: Netta Lala Consult Reason/Comments: hypoxia Do you want consulting provider notified?: Yes 05/06/25 12:03 Consult Physician Routine Consulting Provider: Fransisco Phillips Consult Reason/Comments: wound debridement Do you want consulting provider notified?: Already Contacted 05/07/25 18:47 Consult Physician Routine Consulting Provider: Jordan Terry Consult Reason/Comments: abx management Do you want consulting provider notified?: Already Contacted Primary care physician: Damon Jacobs Hospital Course: Discharge Diagnosis: #. Acute hypoxemic respiratory failure secondary to severe atelectasis and mucous plugging status post bronchoscopy x full-time #. Healthcare acquired Pneumonia secondary to Serratia and Milagros #. Leukocytosis #. Persistent atelectasis #. Cervical myelopathy secondary to severe spinal canal stenosis involving C7-T1 #. Status post extensive cervical decompression with discectomy at C7-T1 and fusion with extension of fusion from C3-C7 with new extension down to T3 #. Severe right L5-S1 neuroforaminal stenosis #. Moderate bilateral L4-L5 neuroforaminal stenosis #. Type II xdn-vtxjlci-vcoyvindg diabetes mellitus #. normocytic anemia, slightly downtrending, continue to monitor #. Hypokalemia #. Hypomagnesemia #. Bilateral lower extremity edema, stable #. 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 Wheeler) approximately 2 months ago, migraine headaches, depression. Presented to the emergency department with a chief complaint of sudden onset numbness extending from periumbilical region downwards throughout groin and bilateral lower extremities followed by weakness of bilateral lower extremities. Upon arrival to our facility, patient underwent evaluation in the emergency department. Vital signs upon arrival show blood pressure 165/97, heart rate 88, respiratory rate 18, temp 98.8 F, and SpO2 of 97% on room air. CT lumbar spine CT abdomen and pelvis was also negative for acute intra- abdominal process completed showing no evidence for spinal fracture, no evidence for significant spinal canal stenosis revealing severe right L5-S1 neuroforaminal stenosis and moderate bilateral L4-L5 neuroforaminal stenosis, revealing a right middle lobe pulmonary nodule 8 mm, prostamegaly, colonic diverticulosis, and bilateral adrenal myolipoma's. Labs completed and reviewed. CBC unremarkable. BMP showing hyperglycemia with blood glucose of 146. Liver profile normal findings. Urinalysis positive for glucose and ketones but negative for infection. Patient was admitted under services with consultation to neurology and orthospine surgery. MRI lumbar spine was completed showing no definitive evidence of disc herniation or significant spinal canal stenosis revealing minimal disc degeneration with associated osteoarthritic changes. Patient underwent extensive cervical spinal surgery on the evening of 03/20/2025 through 03/21/2025. Patient had a long complicated hospitalization course. Following surgery, patient developed acute hypoxic respiratory failure secondary to severe atelectasis and mucous plugging. Patient had bronchoscopies. Did get intubated, was extubated briefly and required reintubation. Also in the meanwhile developed pneumonia secondary to Serratia and Milagros. Eventually due to persistent ventilator dependent respiratory failure patient was trached and PEG. [facility] with trach, mechanical ventilation, and PEG tube. Feed is at goal rate. Also has a fecal management system as well as Samuels catheter. Also had an unstageable decubitus sacral ulcer. Surgery evaluated patient. Does not need any debridement. Patient being discharged with IV antibiotics. Patient seen and examined at bedside. Vital signs reviewed and stable. Gen: In NAD, non-toxic HEENT: normocephalic, atraumatic, hearing acuity is intant, mucous membranes moist CVS: perfusing all extremities well, no pitting edema, Respiratory: symmetric chest expansion, no accessory muscle use, tracheostomy with ventilator dependence GI: soft, NTTP, ND, : no suprapubic tenderness, no CVA tenderness MSK/Derm: no rashes, cyanosis, sacral decubitus wound, foul smelling, Neuro: CN II-XII intact, 0-5 lower extremity weakness bilaterally, 4+ out of 5 upper extremity motor A total of 36 minutes of time were spent preparing this complex discharge summary. Patient was discharged on 05/09/2025 at 1223. Plan - Discharge Summary Discharge Rx Participant: No New Discharge Prescriptions: New Ipratropium-Albuterol Nebulize [Duoneb 0.5 mg-3 mg/3 ml Soln] 3 ml INHALATION RT-QID each Ipratropium-Albuterol Nebulize [Duoneb 0.5 mg-3 mg/3 ml Soln] 3 ml INHALATION RT-Q2H PRN each PRN Reason: Shortness Of Breath Or Wheezing Melatonin 5 mg PO HS PRN tab PRN Reason: Insomnia Magnesium Hydroxide [Milk of Magnesia] 2,400 mg PO DAILY PRN ml PRN Reason: Constipation Acetylcysteine [Mucomyst 20%] 200 mg INHALATION RT-QID each Pantoprazole [Protonix] 40 mg PO AC-BRKFST tab Sennosides-Docusate Sodium [Senokot-S] 1 each PO DAILY tab Acetaminophen Tab [Tylenol] 650 mg PO Q6HR PRN tab PRN Reason: Fever And/ Or Pain diazePAM [Valium] 5 mg PO QID PRN tab PRN Reason: Anxiety Insulin Glargine (Lantus) [Lantus Vial] 5 unit SQ DAILY@0700 each Cefepime [Maxipime] 2 gm IVPB Q8H 7 Days each Benzocaine/Menthol Lozeng [Cepacol lozenge] 1 each MUCOUS MEM Q4HR PRN lozenge PRN Reason: Sore Throat Cyclobenzaprine [Flexeril] 10 mg PO TID PRN tab PRN Reason: Muscle Spasm Tamsulosin [Flomax] 0.4 mg PO PC-BRKFST cap Folic Acid 1 mg PO DAILY tab INSULIN LISPRO (HumaLOG) [HumaLOG] 0 unit SQ ACHS each polyethylene glycoL 3350 [Miralax] 17 gm PO HS packet guaiFENesin [Mucinex] 1,200 mg PO BID tab Sennosides-Docusate Sodium [Senokot-S] 2 each PO DAILY PRN tab PRN Reason: Constipation Calcium Carbonate [Tums] 1,000 mg PO QID PRN tab PRN Reason: Heartburn Formoterol Fumarate [Perforomist] 20 mcg INHALATION RT-BID ml Budesonide [Pulmicort] 0.5 mg INHALATION RT-BID ml Collagenase [Santyl Ointment] 1 applic TOPICAL DAILY each QUEtiapine [SEROquel] 25 mg PEG/G-TUBE HS tab Continue Ipratropium [place] 0.06%Nasal [Atrovent Nasal 0.06%] 1 spray NASAL BID Famotidine 20 mg PO DAILY Cholecalciferol (Vitamin D3) [Vitamin D3 (50 Mcg = 2000 Iu)] 50 mcg PO DAILY Cetirizine HCl [Zyrtec] 10 mg PO DAILY Vitamin B-12 250mcg 500 mcg PO DAILY EPINEPHrine (Auto Inject) [Epipen] 0.3 mg IM ONCE PRN PRN Reason: Anaphylaxis Vibegron [Gemtesa] 75 mg PO DAILY Simvastatin [Zocor] 80 mg PO HS Pramipexole [Mirapex] 0.25 mg PO HS Nortriptyline [Pamelor] 100 mg PO HS Fluticasone Nasal [place] [Flonase Nasal [place]] 1 spray EA NOSTRIL DAILY Discontinued Dulaglutide [Trulicity] 4.5 mg SQ SA metFORMIN HCL [Metformin HCl] 500 mg PO BID-W/MEALS lisinopriL 40 mg PO DAILY Aspirin EC [Ecotrin Low Dose] 81 mg PO DAILY Testosterone Cypionate [Depo-Testosterone] 200 mg IM Q14D Discharge Medication List Cetirizine HCl [Zyrtec] 10 mg PO DAILY 02/15/25 [History] Cholecalciferol (Vitamin D3) [Vitamin D3 (50 Mcg = 2000 Iu)] 50 mcg PO DAILY 02/15/25 [History] Famotidine 20 mg PO DAILY 02/15/25 [History] Fluticasone Nasal [place] [Flonase Nasal [place]] 1 spray EA NOSTRIL DAILY 02/15/25 [History] Ipratropium [place] 0.06%Nasal [Atrovent Nasal 0.06%] 1 spray NASAL BID 02/15/25 [History] Nortriptyline [Pamelor] 100 mg PO HS 02/15/25 [History] Pramipexole [Mirapex] 0.25 mg PO HS 02/15/25 [History] Simvastatin [Zocor] 80 mg PO HS 02/15/25 [History] Vibegron [Gemtesa] 75 mg PO DAILY 02/15/25 [History] EPINEPHrine (Auto Inject) [Epipen] 0.3 mg IM ONCE PRN 03/18/25 [History] Vitamin B-12 250mcg 500 mcg PO DAILY 03/18/25 [History] Acetaminophen Tab [Tylenol] 650 mg PO Q6HR PRN tab 04/24/25 [Rx] Acetylcysteine [Mucomyst 20%] 200 mg INHALATION RT-QID each 04/24/25 [Rx] Benzocaine/Menthol Lozeng [Cepacol lozenge] 1 each MUCOUS MEM Q4HR PRN lozenge 04/24/25 [Rx] Calcium Carbonate [Tums] 1,000 mg PO QID PRN tab 04/24/25 [Rx] Cyclobenzaprine [Flexeril] 10 mg PO TID PRN tab 04/24/25 [Rx] Folic Acid 1 mg PO DAILY tab 04/24/25 [Rx] INSULIN LISPRO (HumaLOG) [HumaLOG] 0 unit SQ ACHS each 04/24/25 [Rx] Ipratropium-Albuterol Nebulize [Duoneb 0.5 mg-3 mg/3 ml Soln] 3 ml INHALATION RT-Q2H PRN each 04/24/25 [Rx] Ipratropium-Albuterol Nebulize [Duoneb 0.5 mg-3 mg/3 ml Soln] 3 ml INHALATION RT-QID each 04/24/25 [Rx] Magnesium Hydroxide [Milk of Magnesia] 2,400 mg PO DAILY PRN ml 04/24/25 [Rx] Melatonin 5 mg PO HS PRN tab 04/24/25 [Rx] Pantoprazole [Protonix] 40 mg PO AC-BRKFST tab 04/24/25 [Rx] Sennosides-Docusate Sodium [Senokot-S] 1 each PO DAILY tab 04/24/25 [Rx] Sennosides-Docusate Sodium [Senokot-S] 2 each PO DAILY PRN tab 04/24/25 [Rx] Tamsulosin [Flomax] 0.4 mg PO PC-BRKFST cap 04/24/25 [Rx] diazePAM [Valium] 5 mg PO QID PRN tab 04/24/25 [Rx] guaiFENesin [Mucinex] 1,200 mg PO BID tab 04/24/25 [Rx] polyethylene glycoL 3350 [Miralax] 17 gm PO HS packet 04/24/25 [Rx] Budesonide [Pulmicort] 0.5 mg INHALATION RT-BID ml 05/09/25 [Rx] Cefepime [Maxipime] 2 gm IVPB Q8H 7 Days each 05/09/25 [Rx] Collagenase [Santyl Ointment] 1 applic TOPICAL DAILY each 05/09/25 [Rx] Formoterol Fumarate [Perforomist] 20 mcg INHALATION RT-BID ml 05/09/25 [Rx] Insulin Glargine (Lantus) [Lantus Vial] 5 unit SQ DAILY@0700 each 05/09/25 [Rx] QUEtiapine [SEROquel] 25 mg PEG/G-TUBE HS tab 05/09/25 [Rx] Follow up Appointment(s)/Referral(s): Jesu Villarreal PAC [PHYSICIAN SOUND ASSISTANT] - 2 Weeks (Patient may follow-up with Jesu Villarreal PA-C or Dr. Gideon Noyola at [facility] in 2 weeks following discharge. ) Damon Jacobs DO [Primary Care Provider] - 1-2 days Activity/Diet/Wound Care/Special Instructions: 1. Must keep hard cervical collar intact at all times 2. Continue with dressing changes of the posterior cervical spine as needed 3. Avoid overhead activities 4. No lifting greater than 10 pounds 5. Take medications as prescribed Discharge Disposition: TRANSFER TO SNF/ECF
--- NOTE | 2025-05-09 13:21 | P.PN ---
Progress Note - Text Progress Note Date: 05/09/25 Orthopedic spine: History of present illness: Patient is a very pleasant 65-year-old male who is seen examined at bedside in the ICU for follow-up evaluation of the cervical spine. He is status post posterior cervical decompression discectomy at C7-T1 with extension of fusion from C7 down to T3. Patient is not talking with his tracheostomy in place. He is having pain this morning. He continues to remain in restraints as he was agitated and removing all of his lines. He has not had any change from an orthopedic spine standpoint. He does have some sensation over his anterior thighs which he states again is greater on the right than the left. He has no sensation in his calfs. Compression stockings and pneumatic boots are intact. He has had a tracheostomy placed. Due to this, his hard cervical collar is not currently intact. He continues with dressing changes as needed over the posterior cervical spine but is not currently having any drainage from his surgical incision site. He is not experiencing any cervical pain. He has adequate range of motion of his bilateral upper extremities except for his shoulders bilaterally. He is able to make a fist but is weak with his nematologist. He is awake but having difficulty talking. He continues have significant difficulty with this bilateral lower extremities. He has some improved numbness around his abdomen towards the groin and some increased sensation over his anterior thighs. He admits to continued sensation in his right great toe. He has no motor function in his lower extremities. His lower extremity symptoms have not improved. Samuels catheter continues to be present after failing a voiding trial. He will be discharged with a catheter intact. Fecal management system has been placed. He is being managed in the ICU by pulmonary critical care. Patient's cultures have resulted positive for Klebsiella Pneumonia. He will be treated for this per pulmonology critical care. Patient has received authorization through the [place] for approval for discharge to spinal cord rehabilitation facility. They are [facility] [place] [place]. Authorization has been obtained. They are planning for discharge today. He continues to be seen exam by multiple medical providers including pulmonology and medicine. He was seen by general surgery for decubitus sacral ulcer. Wound care has been consulted. Physical Exam Posterior Cervical Fusion: Status post surgical day number #49 Patient is awake and but is having difficulty talking this morning Currently in restraints Pneumatic boots intact bilateral lower extremities Compression stockings intact bilaterally Samuels catheter intact Fecal management system intact Dressing intact at the inferior aspect of the incision site of the posterior cervicothoracic surgical site Hard cervical collar currently not intact Tracheostomy intact Assessment: Spinal cord injury with paralysis at T8 Postoperative day #49: Status post posterior cervical decompression discectomy at C7-T1 with extension of fusion from C7-T3 Bilateral lower extremity paralysis Bilateral lower extremity loss of sensation Acute hypoxic respiratory failure Left-sided atelectasis Obstructive sleep apnea syndrome on CPAP normally Type 2 diabetes Hypotension could be related to sepsis could also be neurogenic post spinal surgery Dyslipidemia Tracheostomy placement Fecal management system placement Sacral decubitus ulcer Plan: We will continue with our plan as set forth previously. 1. Patient continues to remain in the ICU due to pulmonary status. He continues to be closely managed from pulmonary standpoint. Patient's cultures have resulted positive for Klebsiella Pneumonia. He will be treated for this per pulmonology critical care. Patient has received authorization through the [place] for approval for discharge to spinal cord rehabilitation facility. They are currently planning for [facility] [place], [place]. Authorization has been obtained. 2. Patient should keep his hard cervical collar intact at all times, however, this is currently not intact due to his tracheostomy. Patient may continue with dressing changes as needed at the posterior cervical spine. 3. Patient continues to have flaccid paralysis in his bilateral lower extremities. He has had some increase in sensation around his abdomen towards his groin and admits to some increased sensation over his anterior thighs greater on the right than the left. He continues to have some sensation in his right great toe and does feel some increase sensation over the toes of the right foot and the top of the right foot. He continues to have paralysis.. They should continue with position change regularly to help prevent decubitus galindo sfer to a bedside chair when possible. 4. When medically stable clear, patient will be planning to be discharged to a spinal cord facility for rehabilitation. They are currently planning for [facility]cha [facility]ge to [facility] [place], [place]. Authorization has been obtained. Discharge summary has been placed for today. Due to the fact that [facility] and is considered inpatient, the patient will be unable to follow-up for further evaluation in the outpatient setting until they are discharged from this [facility] facility. 5. Patient will continue to be seen exam by multiple medical providers for his multiple medical diagnoses. 6. Patient may follow-up with Jesu Villarreal PA-C or Dr. Gideon Noyola at [facility] in 2-3 weeks following discharge from spinal cord rehabilitation facility. I have seen the patient today at bedside. I understand that he is scheduled for discharge to [facility] [place] today. He requires continued critical management in terms of his airway and respiration. He should try to increase mobility in his upper extremities and increase strength as well. It is okay for him to mobilize his upper extremities and his lower extremities for transfers and movement to increase as he is able. I have tried to continue to communicate with him. He understands his status. I think is reasonable for him to [facility] to [facility] critical care
--- NOTE | 2025-05-09 14:08 | XR ---
EXAMINATION TYPE: XR cervical spine limited DATE OF EXAM: 05/09/2025 1:37 PM INDICATION: Patient age:Male; 65 years old; Reason for study: Post-op Evaluation; AP Lateral Views only; PHH, pain COMPARISON: Cervical radiograph 05/02/2025 TECHNIQUE: The cervical spine was imaged in frontal and lateral projections. FINDINGS: Postsurgical changes from posterior cervicothoracic fusion extending up to the C2 level. Posterior fu héctor extends down into the upper thoracic spine. Additionally there is redemonstration ACDF from C4 d own to C7 with disc fusion cages and anterior fixation plate. Hardware is overall stable from prior e xam. No acute fracture. Alignment is stable of the cervical spine. Posterior soft tissue air has decr eased from prior exam. No prevertebral soft tissue swelling identified. Tracheostomy cannula overlying the trachea. Right PICC line with distal tip terminating at the low SV C. The visualized lungs are clear. IMPRESSION: Postsurgical changes from posterior cervical fusion and anterior cervical fusion redemonstrated. Hard barber appears intact with stable alignment. Decreased posterior soft tissue gas related to recent oper ation. [facility], , 05/09/2025 2:06 PM
[2025-05-09] MEDS: ONDANSETRON 4 MG/2 ML VIAL IVP PRN (14:43)
[2025-05-09 15:36] VITALS: BP 160/85; RESP 20
--- NOTE | 2025-05-09 15:38 | P.PN ---
Subjective Progress Note Date: 05/09/25 Principal diagnosis: Acute hypoxic respiratory failure with left lower lobe atelectasis, pneumonia, and left lung collapse/opacification. This is a 64-year-old male patient was undergone a C 7 T1 discectomy, done posteriorly with wide laminectomy and foraminotomy and partial facetectomy. The patient was experiencing cervical myelopathy with severe bilateral lower extremity weakness and T8 paresthesia. The patient has previous history of cervical spine fusion C2-C7. The patient was found to have a large herniated disc C7-T1 with severe spinal cord stenosis and based on that the patient was taken to the operating room and underwent a C7-T1 discectomy on 03/21/2025. The patient has become progressively more hypoxic. Currently he is on Airvo at 60 L and FiO2 of 90%. His current pulse ox is in order of 90 to 93%. Slightly tachycardic. Blood pressure is also soft at 89/62. Based on worsening hypoxemia, CT of the chest was done and the patient was found to have s ignificant volume loss in the left lung compared to the right. There is marked volume loss and atelectasis in addition to an area of consolidation in the left upper lobe and elevation of the left hemidiaphragm in addition to significant gastric distention. The patient has dilated air in the stomach and colon. Blood work shows a white cell count of 14, hemoglobin 12.4 and a platelet count of 175. Sodium levels at 137, bicarb is at 23, potassium level is at 4.3 with a chloride of 102. BUN 23 with a creatinine of 0.9. The patient is resting comfortably in bed. He is wearing a hard neck collar. He is reporting some mild shortness of breath even at rest. He is tolerating the Airvo. He is currently on IV Solu-Medrol 100 mg every 6 hours post neck surgery. He is also on IV fluids with l normal saline at rate of 75 cc an hour. Comorbidities include hypertension, hyperlipidemia, diabetes mellitus type 2, obstructive sleep apnea maintained on CPAP therapy on outpatient basis On today's evaluation of 03/23/25, patient is still on the BiPAP pressure of 14 over 6 cm of water and FiO2 has been weaned down to 65%. The patient's abdomen seems to be less distended. He had 2 bowel movements and the patient is also passing flatus. Fluid balance +223 cc over the past 24 hours and the patient remains on normal saline at a rate of 75 cc an hour. Neurologically, unchanged and the patient has absent motor function lower extremities bilaterally. He is on broad-spectrum antibiotics and the patient is currently on Zosyn vancomycin combination. Follow-up chest x-ray shows some interval improvement in aeration in the left lung base. Lung volumes in the left remain small and there is some ongoing atelectatic change at left lower lobe. The patient's white cell count is 11, hemoglobin 11.3 and a platelet count of 180. Electrolytes are all within normal limits. BUN is 40 with a creatinine of 1.05. The patient is able to communicate. He is alert and awake. Denies having any specific complaints. Still wearing a hard neck collar. 03/24/2025, the patient is laying flat in bed and is currently on a BiPAP at a pressure of 14/6 with an FiO2 of 75% overnight and Airvo during the day. He remains on normal saline at rate of 75 cc an hour. Chest x-ray still showing left lower lobe consolidation. Abdomen is soft. He had 3 bowel movements. He is on Lantus insulin. The patient's mentation is awake and alert. Nevertheless, he continues to have profound weakness in the lower extremity and he remains paraplegic. Remains on IV Solu-Medrol. Blood sugars are elevated and he remains on Lantus 15 units daily and NovoLog sliding scale coverage. The white cell count 11.9, hemoglobin 11.3 and a platelet count of 201. BUN 34 with a creatinine of 0.8. Sodium levels at 136. Blood sugars up to 82. He is postop day #4 following an open decompression and fusion of C7-T1 surgery was done due to a large disc herniation and spinal cord injury. He is also status post fusion and extension from prior fusion C2-7 and near extension fusion down to T3. He is unable to move his legs still. Samuels catheter still in place. Using incentive spirometer. Afebrile. 03/25/2025, the patient is being seen for a follow-up. Repeat chest x-ray was done and shows ongoing volume loss and atelectasis in the left lung base. I also performed an ultrasound of the chest and there is no sizable pleural effusion for thoracentesis. Findings are more consistent with consolidation/atelectasis. Remains on Airvo at 60 L and FiO2 of 90%. Incentive spirometer. Overnight, using BiPAP pressure of 14/6 and use of water with an FiO2 of 80%. Remains in normal Saint rate of 75 cc an hour. Fluid balance is +550 cc over the past 24 hours. No respiratory difficulties. The white cell count of 12. Hemoglobin is 10.9. Platelet count is 210. BUN is 32 with a creatinine of 0.8. Sodium levels at 138 and potassium levels of 4.2. Remains on Zosyn and vancomycin. Neurologically unchanged and the patient continues to be paraplegic. Patient was seen today on 03/26/2025, patient remains in the ICU, he is on Airvo at 90% and 60 L flow, patient is generally weak, alert and appropriate, IV fluid at 75 cc/h, continues to have weakness from the waist down. Patient had cervical spine surgery postoperative day #6. Chest x-ray showed complete opacification of the left lung consistent with mucous plugging involving the left mainstem bronchus. Hence I discussed this with the patient today, patient needs to be bronchoscope, needs to have extraction of mucous plugs. Considering the patient is marginal at best, will need to be intubated and placed on mechanical ventilation for the procedure. Based on the findings we will decide whether the patient needs to remain on mechanical ventilation after bronchoscopy or not. Most likely he will remain ventilated after the bronchoscopy. Patient has a bit of leukocytosis with WBC of 13.3 hemoglobin 11.3 electrolytes are normal renal profile is normal. Nasal screen has been positive for MSSA not MRSA. Patient was seen today on 03/27/2025, patient remains intubated and mechanically ventilated, kept him on mechanical ventilation after his bronchoscopy yesterday and suctioning of mucous plugs from the left mainstem bronchus and left lung. Left lung continues to show good inflation, minimal left lower lobe atelectasis, patient is on assist-control rate of 18 tidal volume 550 FiO2 50% and PEEP of 8 ABG today showed a pO2 of 84 pCO2 37 pH of 7.41. Patient is also on propofol at 50 mg/kg/min IV fluids at 75 cc/h on antibiotics in the form of Zosyn and vancomycin, antibiotics to be changed once we have the final culture from the BAL. I plan to wean the patient today, possibly consider placing him on BiPAP 12/6/50% assuming he tolerates weaning and he passes his weaning parameters. Patient is awake, follows instructions, although he is still on propofol. WBC count is 14.48 hemoglobin 10.8 electrolytes are normal, BUN is 29 creatinine 0.7 Patient was seen today on 03/28/2025, patient was extubated yesterday, had to be placed on BiPAP to avoid atelectasis again of the left lung and mucous plugging patient has very poor cough, cannot clear his secretions, and his chest x-ray today is beginning to show early atelectasis in the left lower lobe, questionable effusion but ultrasound did not show much fluid. I believe it is all a picture of atelectasis involving the left lower lobe and I am afraid that the patient may have reopacification of the left lung in the next 24 hours. In the meantime I will continue patient on BiPAP, will recommend chest PT, N- acetylcysteine and albuterol, Mucinex, and hopefully we can avoid another bronchoscopy. Otherwise if the patient opacifies left lung again, may have to be bronchoscope again. And if we do I will keep him longer on mechanical ventilation. Patient remains on antibiotics/broad-spectrum he is WBC count is 19.36 hemoglobin is 10.7 electrolytes are normal renal profile is normal. Seen today on 03/29/2025, patient remains in the ICU, chest x-ray is showing wo rsening and he is again having near complete opacification of the left lung. Apparently the patient is developing mucous plugging again involving the left mainstem bronchus and the cultures from his last BAL came back showing Serratia marcescens. Considering the patient's critical illness, I am transitioning Zosyn to Merrem for better coverage of Serratia. Sensitivity is still pending on the organism. But empirically Merrem would be a better choice for Serratia marcescens for the time being. Patient still on BiPAP at 14/6/60%, and considering his abnormal chest x-ray, I am recommending bronchoscopy again and this has to be again done with the patient intubated as his O2 saturation is ma rginal even on 60% BiPAP. Patient looks comfortable, he is not in distress. Continues to have leukocytosis with WC of 23.23 hemoglobin 11.2 basic metabolic profile is normal renal profile is normal continues to have cervical collar in place. Patient was seen today on 03/30/2025, remains in the ICU, intubated and mechanically ventilated, patient is on assist-control rate of 18 tidal volume 550 FiO2 50% PEEP of 10 ABG showed a pO2 of 122 pCO2 37 pH of 7.47 hence FiO2 was cut down to 40%. Remains on Merrem remains on propofol at 40 mcg/kg/min and on Versed 1 mg/h. Patient is sedated, does not seem to be in any distress, chest x-ray is showing slight worsening in the left lower lobe, but not severe enough to justify bronchoscopy again. However considering this I am not planning to extubate the patient today as if extubated he will most likely end up requiring bronchoscopy again. Patient had positive cultures for Serratia marcescens, and is now on Merrem. Labs today were reviewed patient has leukocytosis with WBC count of 19.7 hemoglobin 11.3, basic metabolic profile is normal renal profile is normal patient is on nutritional support/enteral feeding. Chest x-ray today is a bit worrisome hence no plans to wean and extubate today. Patient was seen today on 03/31/2025, remains in the ICU, intubated and mechanically ventilated. Patient is on assist-control rate of 18 tidal volume 550 FiO2 40% and PEEP of 10 ABG on 45% showed a pO2 of 86 pCO2 42 pH of 7.44. Chest x-ray is showing left lower lobe atelectasis/airspace disease involving the left lower lobe hence I was concerned about recollapsing of the left lung, bronchoscopy was performed, and the secretions noted in the left lower lobe with were very minimal. Did not require lavage, there was not enough secretions to d o lavage. Hence the patient was kept intubated mechanically ventilated, he is now on propofol at 45 mcg/kg/min is on Versed 1 mg/h and is receiving vital HP at 32 cc/h. Remains on fluconazole, remains on Merrem. Continues to have a bit of leukocytosis with WBC of 19.12 hemoglobin 11.7 electrolytes are normal, renal profile is normal. Patient was seen today on 04/01/2025, remains in the ICU, remains intubated and mechanically ventilated. Patient is sedated with propofol at 45 mcg/kg/min and Versed 1 mg/h. Patient is calm he is on assist-control mode of mechanical ventilation rate 18 tidal volume 550 FiO2 40% PEEP that ABG showed a PO2 of 91 pCO2 37 pH of 7.52 chest x-ray showed improvement in his left lower lobe atelectasis but he does have bilateral pleural effusions has I recommended a dose of Lasix 40 mg IV push x 1 was given. Considering his ABG is better considering his chest x-ray is showing improvement, I recommended a trial of weaning. However on pressure support and CPAP, his ABG was marginal with a pO2 of 61 pCO2 40 pH of 7.51, hence I felt the patient is not ready to be weaned especially with relatively low pO2 of 61. And I felt the patient should be back on sedation and back on assist-control mode of mechanical ventilation. In the meantime patient remains on nutritional support, remains in GI prophylaxis: And again he received a dose of Lasix earlier today for what seems to be bilateral pleural effusions. Continues to have leukocytosis with WBC count of 19.4 hemoglobin 11.5 electrolytes are normal, renal profile is normal blood sugar is 245 On 05/05/2025, the patient is being seen for a follow-up. The patient had bronchoscopies 2 days in the row and another is bronchoscopy was done yesterday where mucous plugs were again aspirated although the secretions were less abundant. The patient clinically is unchanged. Arousable. No sedation. Still on a mechanical ventilator at rate of 20, tidal volume of 400, FiO2 of 60% with a PEEP of 10. Blood gas with a pH of 7.47 with a PCO2 of 53 and PO2 of 119. Receiving enteral feeding for nutritional support and the patient is currently on vital HP. He is having liquidy stool and the patient has a fecal management system in place. Based on the most recent cultures and his sputum growing Staph aureus and Klebsiella, the patient was kept on IV cefepime. Patient is also on vancomycin. The patient has been afebrile. Hemodynamically stable. The white cell count is currently at 17.6 with a hemoglobin 8.4 and a platelet count of 205. Sodium is at 136, bicarbonate 40, BUN is 20 with a creatinine of 0.2. LFTs are normal. Blood sugars are being monitored. Neurologically unchanged. Remains on 5 mg of prednisone. On 05/06/2025, the patient is being seen for a follow-up. The patient is off sedation. The patient is following commands. Arousable. Currently on assist- control mode rate of 20, tidal volume of 400, FiO2 of 80% with a PEEP of 10. Blood gas showed a pH of 7.43 with a PCO2 of 59 and PO2 148. No significant changes on chest x-ray. The patient remains on vital HP at rate of 50 cc an hour. Hemodynamically stable. Afebrile. Currently on IV cefepime as the patient's sputum sample and bronchoscopy and lavage from the right lung showed MSSA and Klebsiella. Continues to receive enteral feeding for nutritional support. Neurologically unchanged. Continues to have episodes of oxygen saturation and mucous plugging and this is becoming a daily occurrence. Still on Lovenox 40 mg subcu for DVT prophylaxis. Still on Lantus insulin 5 units daily and sliding scale coverage. Still on bronchodilators. Prednisone has been weaned down to 10 mg p.o. daily. Patient was seen today on 05/07/2025, patient remains marginal at best. Still on relatively high FiO2 FiO2 70%, still on PEEP of 10 rate 20 tidal volume 400, patient has now MSSA and Klebsiella pneumonia in the sputum remains on vancomycin and cefepime. ABG today showed a pO2 of 63 pCO2 60 pH of 7.42, overall the patient is about the same, continues to have intermittent episodes of profound hypoxia requiring high FiO2 and high PEEP. Today I increased his PEEP to 12 hoping to cut down his FiO2 below 70%, but this could not happen as the patient desaturated and he had to go back high on FiO2. Patient had a tracheostomy and PEG tube placement on 04/26. He will eventually require placement but cannot get in place with relatively high FiO2 and high PEEP required. Chest x-ray continues to show atelectasis/pneumonia involving the right lower lobe, his left lower lobe seems to be better at this time. Labs from today were all reviewed chest x-ray was reviewed and at this point not much to be added except continue antibiotics and continue daily trials of getting FiO2 down or PEEP down or both. Patient was seen today on 05/08/2025, remains in the ICU, intubated and mechanically ventilated. Patient is still requiring relatively high FiO2 60% today, and PEEP was at 10 I cut it down to 8. Last night his O2 saturation kept fluctuating up and down, at 1 point he had to be placed on 100% as his O2 satu ration was down in the 60s. Patient continues to have significant right lower lobe atelectasis/pneumonia remains on antibiotics/broad-spectrum and infectious disease was consulted to see this patient yesterday. Overall picture is not changing much, patient remains about the same with waxing and waning episodes of atelectasis and desaturation with hypoxia. The goal is to get the patient down to a PEEP of 8 and FiO2 50% if possible and if he could maintain that, we could possibly [facility] ABG today showed a pO2 of 177 pCO2 56 pH of 7.45 however this was on 80% FiO2. Done apparently after midnight last night. WBC count is 14.3 hemoglobin 8.4 electrolytes are normal, renal profile is normal. Last bronchial washing culture came back positive for MSSA and Klebsiella pneumoniae and this was from 05/03/2025. Patient was seen today on 05/09/2025, remains intubated mechanically ventilated and assist-control rate of 20 tidal volume 400 FiO2 50% and PEEP of 8 patient remains on cefepime remains on vital HP at 50 cc/h, patient is doing much better today compared to the last few days, his FiO2 is down to 50%, and his PEEP is at 8. Patient has been accepted at [facility], and I believe it is reasonable to consider transferring the patient for further weaning trials down the line. Chest x-ray today showed improvement in his bibasilar infiltrates and atelectasis. WBC count is 12.1 hemoglobin 8.2 electrolytes are normal BUN is 15 creatinine 0.15 bicarb is 38 Objective - Vital Signs Vital signs: Vital Signs Temp 98.4 F 05/09/25 08:00 Pulse 93 05/09/25 11:00 Resp 14 05/09/25 11:00 BP 123/79 05/09/25 11:00 Pulse Ox 98 05/09/25 11:00 FiO2 50 05/09/25 10:00 Intake & Output 05/08/25 05/09/25 05/09/25 18:59 06:59 18:59 Intake Total 720 810 330 Output Total 1600 1725 775 Balance -880 -915 -445 Weight 99 kg 98.1 kg Intake: IV 120 120 50 0.9@10 120 120 50 Tube Feeding 600 600 250 Other 90 30 Output: Urine 1600 1650 775 Stool 75 Other: Voiding Method Indwelling Catheter Indwelling Catheter Indwelling Catheter ABP, PAP, CO, CI - Last Documented Arterial Blood Pressure 255/255 - Exam General: Reveals 64-year-old white male, intubated mechanically ventilated awake, follows instructions, remains relatively weak Derm: No rashes. Head: atraumatic, normocephalic, tracheostomy is intact Eyes: EOMI, anicteric sclera Mouth: Moist mucous membranes, no evidence of lesions Cardiovascular: Normal S1 S2 reg, no murmur, rubs, or gallops Lungs: Diminished breath sounds at the bases no rhonchi no wheezes Abdominal: soft, a bowel sounds are present Extremities: no gross muscle atrophy, no edema, no contractures, Neuro: Alert oriented x 3 no gross focal deficit, generally weak Psych: Normal mood affect and mental status examination - Labs CBC & Chem 7: 05/09/25 04:50 05/09/25 04:50 Labs: Abnormal Lab Results - Last 24 Hours (Table) 05/08/25 05/08/25 05/08/25 Range/Units 17:29 17:38 23:03 WBC (4.50-10.00) 10*3/uL RBC (4.40-5.60) 10*6/uL Hgb (13.0-17.0) g/dL Hct (39.6-50.0) % MCHC (32.0-37.0) g/dL Immature Gran # (0.00-0.04) 10*3/uL Neutrophils # (Manual) (1.3-7.7) k/uL Metamyelocytes # (Man) (0) k/uL Myelocytes # (Manual) (0) k/uL Sodium (137-145) mmol/L Chloride (98-107) mmol/L Carbon Dioxide (22-30) mmol/L Creatinine (0.66-1.25) mg/dL Glucose (74-99) mg/dL POC Glucose (mg/dL) 226 H 204 H 164 H (70-110) mg/dL 05/09/25 05/09/25 05/09/25 Range/Units 04:50 04:50 05:30 WBC 12.12 H (4.50-10.00) 10*3/uL RBC 2.77 L (4.40-5.60) 10*6/uL Hgb 8.2 L (13.0-17.0) g/dL Hct 25.7 L (39.6-50.0) % MCHC 31.9 L (32.0-37.0) g/dL Immature Gran # 0.89 H (0.00-0.04) 10*3/uL Neutrophils # (Manual) 10.05 H (1.3-7.7) k/uL Metamyelocytes # (Man) 0.24 H (0) k/uL Myelocytes # (Manual) 0.12 H (0) k/uL Sodium 134 L (137-145) mmol/L Chloride 94 L (98-107) mmol/L Carbon Dioxide 38 H (22-30) mmol/L Creatinine <0.15 L (0.66-1.25) mg/dL Glucose 203 H (74-99) mg/dL POC Glucose (mg/dL) 196 H (70-110) mg/dL 05/09/25 Range/Units 11:13 WBC (4.50-10.00) 10*3/uL RBC (4.40-5.60) 10*6/uL Hgb (13.0-17.0) g/dL Hct (39.6-50.0) % MCHC (32.0-37.0) g/dL Immature Gran # (0.00-0.04) 10*3/uL Neutrophils # (Manual) (1.3-7.7) k/uL Metamyelocytes # (Man) (0) k/uL Myelocytes # (Manual) (0) k/uL Sodium (137-145) mmol/L Chloride (98-107) mmol/L Carbon Dioxide (22-30) mmol/L Creatinine (0.66-1.25) mg/dL Glucose (74-99) mg/dL POC Glucose (mg/dL) 247 H (70-110) mg/dL Assessment and Plan Assessment: Impression Acute hypoxic respiratory failure, multifactorial. The patient has developed postoperative atelectasis of the left lower lobe and the patient has significant elevation in volume loss in the left lung compared to the right. Previous bronchoscopy and sputum analysis was positive for Serratia marcescens. Nasal culture is positive for MSSA and the patient completed the course of antibiotics. He has a very weak cough and poor ability to perform pulmonary toileting. T8 spinal cord injury. The patient has severe spinal canal stenosis at the level of C7/T1 with motor weakness in the lower extremities in addition to myelopathy. The patient is post C7/T1 discectomy with decompression and fusion and the patient also had extension of a previous C2/7 fusion to T3. This was done back on March 21, 2025 Diabetes mellitus type 2, with steroid-induced hyperglycemia Hypotension, rule out septic versus neurogenic hypotension post spine surgery Sinus tachycardia Hyperlipidemia Seroma in the posterior soft tissues along the length of the skin jarad, spinal surgeries following Bilateral lower extremity weakness, ongoing motor weakness in the lower e xtremities bilaterally with absent motor function at this point with bilateral foot drop. Patient's sensations in the lower limbs have improved, but now patient is completely paraplegic. T8 p spinal cord injury with motor paralysis lower extremities bilaterally with absent sensation. He does have some feelings in his lower abdomen towards the groin. History of prior cervical fusion C3-C7 History of severe L5-S1 neuroforaminal stenosis Purulent secretions around the tracheostomy stoma, with positive sputum cultures, and respiratory secretion have improved and the patient has required [id number] bronchoscopies and therapeutic airway suctioning and removal of mucous plugs. The patient continues to have episodes of mucous plugging with episodes of desaturation and this has become a daily occurrence and sometimes several episodes a day. His last bronchoscopy was on 05/[address] Beverly arvizu. Cultures indicating staph possibly MSSA in addition to Klebsiella. Being addressed by infectious disease on cefepime Recommendation: Continue ventilatory support Continue antibiotics as per ID on the case Continue nutritional support/enteral feeding via PEG tube Continue incentive spirometry Continue chest physiotherapy Continue albuterol and Mucomyst Agree with transfer plans to [facility] Time with Patient: Less than 30
[2025-05-09 17:17] VITALS: PULSE 89
--- NOTE | 2025-05-10 13:24 | CDI ---
Documentation Clarification Form Date: 05/10/2025 12:59:43 PM From: Saloni Keating Phone: Admit Date: 03/18/2025 03:35:00 PM Patient Name: Halie Mireles Visit Number: [id number] Discharge Date: 05/09/2025 06:30:00 PM ATTENTION: The Clinical Documentation Specialists (CDI) and [facility] Coding Staff appreciate your assistance in clarifying documentation. Please respond to the clarification below the line at the bottom and electronically sign. The CDI & [facility] Coding staff will review the response and follow-up if needed. Please note: Queries are made part of the Legal Health Record. If you have any questions, please contact the author of this message via ITS. Doctor/Provider: Kaylah Veronica Hypotension is documented in the Progress Note 03/22 and throughout the following Progress Note. Additional clarification regarding this diagnosis is requested. History/Risk Factors: 64yo M, Severe right L5-S1 neuroforaminalstenosis, moderate bilateral L4-L5 neuroforaminalstenosis, ACH/HRF, severeatelectasisand mucous plugging, HAP d/t, cervicalmyelopathy, C7-T1, DMII w >, ABLA, hypokalemia, hypomagnesemia, BLE edema, thrombocytopenia, respiratory acidosis, metabolic alkalosis Clinical Indicators: VS: 03/26/2504:00 Temp 98.0 CA 86 RR 17 BP 138/123 PO 93 5/15 Airvo at 60 PO 90 to 93%. Slightly tachycardic. BP 89/62 Treatment: Hold bloodpressuremedicine Can the hypotension be further specified? [ ] Neurogenic post spinal surgery [ ] Hypotension due to Septic Shock [ ] Other Condition, please specify [x ] Unable to determine (Template Last Revised: January 2021) MTDD
--- NOTE | 2025-05-14 20:06 | CDI ---
Documentation Clarification Form Date: 05/14/2025 07:50:55 PM From: Saloni Keating Phone: Admit Date: 03/18/2025 03:35:00 PM Patient Name: Halie Mireles Visit Number: [id number] Discharge Date: 05/09/2025 06:30:00 PM ATTENTION: The Clinical Documentation Specialists (CDI) and [facility] Coding Staff appreciate your assistance in clarifying documentation. Please respond to the clarification below the line at the bottom and electronically sign. The CDI & [facility] Coding staff will review the response and follow-up if needed. Please note: Queries are made part of the Legal Health Record. If you have any questions, please contact the author of this message via ITS. Doctor/Provider: Yessica Austin Unstageable pressure ulcer of sacral region Consult 05/08, Progress Note 05/09 and DCS. Pressure ulcer of bilateral buttocks, stage 2 is documented per Consult 04/17. For each diagnosis, documentation must be clear to determine if the condition was present at the time of the patients inpatient admission or developed during the hospital stay. Additional clarification regarding the ulcerations is requested. History/Risk Factors: 64yo M, AHRF, mucus plugging, HAP d/t Serratia andCandida, persistentatelectasis, cervicalmyelopathyw severespinal canal stenosisinvolving C7-T1, severe right L5-S1 neuroforaminalstenosis, moderate bilateral L4-L5 neuroforaminalstenosis, DMII, anemia, hypokalemia, hypomagnesemia, thrombocytopenia, respiratory acidosis, metabolic alkalosis, hypotension Clinical Indicators: patient also to have unstageablesacral pressure ulcerwithnecrotictissue. General Surgery has seen the patient recommending enzymaticdebridement. currently on [facility] keep in mind the extent of slough andnecrotictissue will benefit from Santyl which has been ordered Treatment: Surgery evaluated patient. Does not need anydebridement. Patient being discharged withIV antibiotics. Definition of Present on Admission (POA): A diagnosis present at the time the order for admission to inpatient status was written. Please clarify if the ulcers were POA [x ] Y = Yes, the condition was present at the time of the order for inpatient admission. [ ] N = No, the condition was not present at the time of the order for inpatient admission. [ ] W = Clinically undetermined if the condition was present at the time of the order for inpatient admission. (Template Last Revised: January 2021) MTDD
--- NOTE | 2025-05-15 11:09 | CDI ---
Documentation Clarification Form Date: 05/15/2025 10:57:35 AM From: Saloni Keating Phone: Admit Date: 03/18/2025 03:35:00 PM Patient Name: Halie Mireles Visit Number: [id number] Discharge Date: 05/09/2025 06:30:00 PM ATTENTION: The Clinical Documentation Specialists (CDI) and [facility] Coding Staff appreciate your assistance in clarifying documentation. Please respond to the clarification below the line at the bottom and electronically sign. The CDI & [facility] Coding staff will review the response and follow-up if needed. Please note: Queries are made part of the Legal Health Record. If you have any questions, please contact the author of this message via ITS. Doctor/Provider: Yessica Austin Severe protein calorie malnutrition is documented per Consult 04/25. For each diagnosis, documentation must be clear to determine if the condition was present at the time of the patients inpatient admission or developed during the hospital stay. Additional clarification regarding the severe protein calorie malnutrition is requested. History/Risk Factors: 64yo M,AHRF,mucus plugging,HAPd/t Serratia andCandida,persistentatelectasis, cervicalmyelopathyw stenosis C7-T1, severe right L5-S1 nfs, moderate elizabet L4-L5 nfs,DMII,anemia,hypokalemia, hypomagnesemia,thrombocytopenia,respiratory acidosis,metabolic alkalosis, hypotension Clinical Indicators: Patient is on nutritional support/enteral feeding Progress Note 03/30 Failure to thrive per Consult Note 05/06 and PRx Note 04/26 Sacral decubitus ulcerand multiple healing stages; 5 x 9 cmsacral decubitus ulcerwith multiple well-healing areas and a small 3 x 3 cm area of superficial eschar Consult Note 05/06 BMI: 33.9 Treatment: PEG tube insertion 04/26 Definition of Present on Admission (POA): A diagnosis present at the time the order for admission to inpatient status was written. Please clarify if the severe protein calorie malnutrition was POA [x ] Y = Yes, the condition was present at the time of the order for inpatient admission. [ ] N = No, the condition was not present at the time of the order for inpatient admission. [ ] W = Clinically undetermined if the condition was present at the time of the order for inpatient admission. (Template Last Revised: January 2021) MTDD
--- NOTE | 2025-05-17 09:54 | CDI ---
Documentation Clarification Form Date: 05/17/2025 From: Barrie Lomax Admit Date: 03/18/2025 03:35:00 PM Patient Name: Halie Mireles Visit Number: [id number] Discharge Date: 05/09/2025 06:30:00 PM ATTENTION: The Clinical Documentation Specialists (CDI) and [facility] Coding Staff appreciate your assistance in clarifying documentation. Please respond to the clarification below the line at the bottom and electronically sign. The CDI & [facility] Coding staff will review the response and follow-up if needed. Please note: Queries are made part of the Legal Health Record. If you have any questions, please contact the author of this message via ITS. Dr. Dennys DO., Postoperative atelectasis is documented per the 03/22 Pulmonology consult and the patient had a Cervical Decompression With Discectomy At C7-T1 And Fusion With Extension Of Fusion From C3-C7 With New Extension Down To T3 on 03/21. Additional clarification is requested regarding the relationship, if any, that exists between the diagnosis and the procedure. History/Risk Factors: 64-year-old male with past medical history of NERIS on CPAP, obesity, periodic limb movements on Mirapex, HLD, type II DM, allergies, who presented to the ER on 03/18/2025 with sudden onset leg numbness and weakness. Patients Admitting Diagnosis: Spinal cord injury, Large herniated disc C7- T1, Severe spinal cord stenosis C7-T1, Cervical myelopathy, severe bilateral lower extremity weakness, T8 paresthesia Post-Operative Diagnosis: Same, Postoperative atelectasis Procedure performed: Cervical Decompression With Discectomy At C7-T1 And Fusion with Extension Of Fusion From C3-C7 With New Extension Down To T3 Clinical Indicators: 03/22 Pulmonology consult: The patient has developed postoperative atelectasis of the left lower lobe and the patient has significant elevation in volume loss in the left lung compared to the right. There is an area of consolidation left upper lobe. 03/25 Pulmonology note: The patient has developed postoperative atelectasis of the left lower lobe and the patient has significant elevation in volume loss in the left lung compared to the right. There is an area of consolidation left upper lobe. In addition, the patient has developed an abdominal ileus with secondary distention further compromising his respiratory statusPatient is currently on BiPAP. The patient was placed on BiPAP due to ongoing hypoxemiaFollow-up chest x-ray shows volume loss and left lower lobe consolidation and the patient is alternating between Airvo in the morning and BiPAP at night. Ultrasound of the chest shows no evidence of any pleural effusion. No interval worsening in the oxygenation. Clinically stable and hypoxemia is attributed to left lower lobe consolidation and atelectasis. Treatment: BiPAP use, Chest X-Ray, Airvo, Incentive spirometer, Aggressive pulmonary toileting,DuoNeb nebulizer treatments. What relationship, if any, exists between the diagnosis of postoperative atelectasis and the procedure: [ ] postoperative atelectasis is not clinically significant and not a complication [ x ] postoperative atelectasis is clinically significant and not a complication [ ] postoperative atelectasis is clinically significant and a complication [ ] Other please specify ____ Patient had severe postoperative atelectasis which was not a complication of his procedure but rather a issue with his injury due to his fall where he had spinal cord injury due to a large disc herniation at his cervical spine causing his severe neurologic issues, including problems with his diaphragm which created the pulmonary issues including the postoperative atelectasis [facility]
== END 2025-05-09 18:30 | DRG 3 ==
LOC: EC 13:18 → OBSVTOIN 15:35 → 6NMEDSUR 15:35 → 4SSUR 03-20 18:29 → 3SCARD 03-22 14:41 → 2SICU 03-22 17:53 → 3SCARD 04-14 14:09 → 2SICU 04-17 12:20
PROVIDERS: ADMIT Student in an Organized Health Care Education/Training Program; ATTEND Student in an Organized Health Care Education/Training Program
PROC: 0B9J8ZX Drainage of Left Lower Lung Lobe, Via Natural or Artificial Opening Endoscopic, Diagnostic (ICD-10-PCS; 2025-03-18)
PROC: 0B9G8ZX Drainage of Left Upper Lung Lobe, Via Natural or Artificial Opening Endoscopic, Diagnostic (ICD-10-PCS; 2025-03-18)
PROC: 0B9H8ZX Drainage of Lung Lingula, Via Natural or Artificial Opening Endoscopic, Diagnostic (ICD-10-PCS; 2025-03-18)
PROC: 0B9F8ZX Drainage of Right Lower Lung Lobe, Via Natural or Artificial Opening Endoscopic, Diagnostic (ICD-10-PCS; 2025-03-18)
PROC: 0B9D8ZX Drainage of Right Middle Lung Lobe, Via Natural or Artificial Opening Endoscopic, Diagnostic (ICD-10-PCS; 2025-03-18)
PROC: 0BC78ZZ Extirpation of Matter from Left Main Bronchus, Via Natural or Artificial Opening Endoscopic (ICD-10-PCS; 2025-03-18)
PROC: 0RG70AJ Fusion of 2 to 7 Thoracic Vertebral Joints with Interbody Fusion Device, Posterior Approach, Anterior Column, Open Approach (ICD-10-PCS; principal; 2025-03-21)
PROC: 0RG40AJ Fusion of Cervicothoracic Vertebral Joint with Interbody Fusion Device, Posterior Approach, Anterior Column, Open Approach (ICD-10-PCS; 2025-03-21)
PROC: 00NW0ZZ Release Cervical Spinal Cord, Open Approach (ICD-10-PCS; 2025-03-21)
PROC: 00NX0ZZ Release Thoracic Spinal Cord, Open Approach (ICD-10-PCS; 2025-03-21)
PROC: 0RB50ZZ Excision of Cervicothoracic Vertebral Disc, Open Approach (ICD-10-PCS; 2025-03-21)
PROC: 0RBB0ZZ Excision of Thoracolumbar Vertebral Disc, Open Approach (ICD-10-PCS; 2025-03-21)
PROC: 5A09357 Assistance with Respiratory Ventilation, Less than 24 Consecutive Hours, Continuous Positive Airway Pressure (ICD-10-PCS; 2025-03-23)
PROC: 0B9J8ZX Drainage of Left Lower Lung Lobe, Via Natural or Artificial Opening Endoscopic, Diagnostic (ICD-10-PCS; 2025-03-26)
PROC: 0B9G8ZX Drainage of Left Upper Lung Lobe, Via Natural or Artificial Opening Endoscopic, Diagnostic (ICD-10-PCS; 2025-03-26)
PROC: 0B9H8ZX Drainage of Lung Lingula, Via Natural or Artificial Opening Endoscopic, Diagnostic (ICD-10-PCS; 2025-03-26)
PROC: 0BC78ZZ Extirpation of Matter from Left Main Bronchus, Via Natural or Artificial Opening Endoscopic (ICD-10-PCS; 2025-03-26)
PROC: 0BH18EZ Insertion of Endotracheal Airway into Trachea, Via Natural or Artificial Opening Endoscopic (ICD-10-PCS; 2025-03-26)
PROC: 5A1935Z Respiratory Ventilation, Less than 24 Consecutive Hours (ICD-10-PCS; 2025-03-26)
PROC: 3E0F8GC Introduction of Other Therapeutic Substance into Respiratory Tract, Via Natural or Artificial Opening Endoscopic (ICD-10-PCS; 2025-03-29)
PROC: 3E0G76Z Introduction of Nutritional Substance into Upper GI, Via Natural or Artificial Opening (ICD-10-PCS; 2025-03-30)
PROC: 0B9F8ZZ Drainage of Right Lower Lung Lobe, Via Natural or Artificial Opening Endoscopic (ICD-10-PCS; 2025-03-31)
PROC: 0B110Z4 Bypass Trachea to Cutaneous, Open Approach (ICD-10-PCS; 2025-04-26)
PROC: 0DH63UZ Insertion of Feeding Device into Stomach, Percutaneous Approach (ICD-10-PCS; 2025-04-26)
PROC: 3E0G76Z Introduction of Nutritional Substance into Upper GI, Via Natural or Artificial Opening (ICD-10-PCS; 2025-04-26)
PROC: 02HV33Z Insertion of Infusion Device into Superior Vena Cava, Percutaneous Approach (ICD-10-PCS; 2025-05-01)
PROC: 5A1955Z Respiratory Ventilation, Greater than 96 Consecutive Hours (ICD-10-PCS; 2025-05-03)
PROC: 0B9F8ZZ Drainage of Right Lower Lung Lobe, Via Natural or Artificial Opening Endoscopic (ICD-10-PCS; 2025-05-03)
PROC: 0BH18EZ Insertion of Endotracheal Airway into Trachea, Via Natural or Artificial Opening Endoscopic (ICD-10-PCS; 2025-05-03)
PROC: 0BH18EZ Insertion of Endotracheal Airway into Trachea, Via Natural or Artificial Opening Endoscopic (ICD-10-PCS; 2025-05-03)
PROC: 0B9F8ZZ Drainage of Right Lower Lung Lobe, Via Natural or Artificial Opening Endoscopic (ICD-10-PCS; 2025-05-04)
PROC: 03HY32Z Insertion of Monitoring Device into Upper Artery, Percutaneous Approach (ICD-10-PCS; 2025-05-04)
PROC: 4A133B1 Monitoring of Arterial Pressure, Peripheral, Percutaneous Approach (ICD-10-PCS; 2025-05-04)
PROC: 4A133J1 Monitoring of Arterial Pulse, Peripheral, Percutaneous Approach (ICD-10-PCS; 2025-05-04)
PROC: XW0 New Technology, Anatomical Regions, Introduction (ICD-10-PCS; 2025-05-07)
PROC: 0BH18EZ Insertion of Endotracheal Airway into Trachea, Via Natural or Artificial Opening Endoscopic (ICD-10-PCS; 2025-05-09)
PROC: 5A1935Z Respiratory Ventilation, Less than 24 Consecutive Hours (ICD-10-PCS; 2025-05-09)
DX: M48.03 Spinal stenosis, cervicothoracic region (principal); T81.41XA Infection following a procedure, superficial incisional surgical site, initial encounter; J15.69 Pneumonia due to other Gram-negative bacteria; B37.1 Pulmonary candidiasis; A41.9 Sepsis, unspecified organism; S24.113A Complete lesion at T7-T10 level of thoracic spinal cord, initial encounter; J69.0 Pneumonitis due to inhalation of food and vomit; J96.22 Acute and chronic respiratory failure with hypercapnia; J96.21 Acute and chronic respiratory failure with hypoxia; E43 Unspecified severe protein-calorie malnutrition; T17.590A Other foreign object in bronchus causing asphyxiation, initial encounter; G95.89 Other specified diseases of spinal cord; L89.150 Pressure ulcer of sacral region, unstageable; J90 Pleural effusion, not elsewhere classified; D69.6 Thrombocytopenia, unspecified; E11.65 Type 2 diabetes mellitus with hyperglycemia; E66.9 Obesity, unspecified; I10 Essential (primary) hypertension; G25.81 Restless legs syndrome; F32.A Depression, unspecified; K56.7 Ileus, unspecified; G82.21 Paraplegia, complete; L76.34 Postprocedural seroma of skin and subcutaneous tissue following other procedure; E87.4 Mixed disorder of acid-base balance; M50.03 Cervical disc disorder with myelopathy, cervicothoracic region; D62 Acute posthemorrhagic anemia; E87.1 Hypo-osmolality and hyponatremia; J98.11 Atelectasis; L89.312 Pressure ulcer of right buttock, stage 2; L89.322 Pressure ulcer of left buttock, stage 2; Y83.8 Other surgical procedures as the cause of abnormal reaction of the patient, or of later complication, without mention of misadventure at the time of the procedure; I95.9 Hypotension, unspecified; R62.7 Adult failure to thrive; J98.09 Other diseases of bronchus, not elsewhere classified; J98.6 Disorders of diaphragm; B96.1 Klebsiella pneumoniae [K. pneumoniae] as the cause of diseases classified elsewhere; D17.79 Benign lipomatous neoplasm of other sites; G47.33 Obstructive sleep apnea (adult) (pediatric); G47.61 Periodic limb movement disorder; E78.5 Hyperlipidemia, unspecified; R91.1 Solitary pulmonary nodule; K57.30 Diverticulosis of large intestine without perforation or abscess without bleeding; M50.23 Other cervical disc displacement, cervicothoracic region; M25.78 Osteophyte, vertebrae; M48.07 Spinal stenosis, lumbosacral region; T38.0X5A Adverse effect of glucocorticoids and synthetic analogues, initial encounter; T50.1X5A Adverse effect of loop [high-ceiling] diuretics, initial encounter; T50.2X5A Adverse effect of carbonic-anhydrase inhibitors, benzothiadiazides and other diuretics, initial encounter; E86.1 Hypovolemia; M48.061 Spinal stenosis, lumbar region without neurogenic claudication; F41.0 Panic disorder [episodic paroxysmal anxiety]; G43.909 Migraine, unspecified, not intractable, without status migrainosus; M21.372 Foot drop, left foot; M21.371 Foot drop, right foot; E83.42 Hypomagnesemia; E87.6 Hypokalemia; J32.2 Chronic ethmoidal sinusitis; R33.8 Other retention of urine; N40.0 Benign prostatic hyperplasia without lower urinary tract symptoms; R45.1 Restlessness and agitation; R60.0 Localized edema; K31.89 Other diseases of stomach and duodenum; B95.61 Methicillin susceptible Staphylococcus aureus infection as the cause of diseases classified elsewhere; M51.369 Other intervertebral disc degeneration, lumbar region without mention of lumbar back pain or lower extremity pain; Z68.33 Body mass index [BMI] 33.0-33.9, adult; Z79.82 Long term (current) use of aspirin; Z79.85 Long-term (current) use of injectable non-insulin antidiabetic drugs; Z79.84 Long term (current) use of oral hypoglycemic drugs; Z79.890 Hormone replacement therapy; Z79.1 Long term (current) use of non-steroidal anti-inflammatories (NSAID); Z79.899 Other long term (current) drug therapy; Z98.1 Arthrodesis status; Z78.1 Physical restraint status; Y95 Nosocomial condition; W18.30XA Fall on same level, unspecified, initial encounter
CPT/HCPCS: 31624; 31645; 36415; 36573; 36600; 43246; 51798; 71045; 71250; 71275; 72040; 72050; 72125; 72128; 72132; 72141; 72146; 72148; 74018; 74177; 76604; 80048; 80053; 80202; 81003; 82607; 82746; 82805; 83735; 84132; 85025; 85027; 86022; 86850; 86900; 86901; 87070; 87077; 87102; 87116; 87186; 87205; 87206; 87496; 87498; 87502; 87529; 87634; 87635; 87798; 89050; 92950; 93970; 94002; 94003; 94640; 94660; 94664; 94667; 94668; 94760; 96361; 96374; 99285